=== PATIENT | female | born 1950 | race Caucasian/White ===

== ENCOUNTER → 2019-05-11 | Outpatient (CLI) | payer MEDICARE, OTHER, SELFPAY ==
[2016-03-04 13:39] VITALS: BMI 33.7
--- NOTE | 2019-05-11 09:50 | RAD_ITS ---
STUDY: X-RAY - ESOPHAGUS (BARIUM SWALLOW) WITH FLUOROSCOPY REASON FOR EXAM: Female, 69 years old. History of prior removal of a lower esophageal polyp. TECHNIQUE: 15 view(s) of the esophagus were obtained following swallowing of barium. FLUOROSCOPY TIME (if supplied): (0:36) minutes/seconds COMPARISON: None. FINDINGS: There is no demonstrated esophageal foreign body. There is no demonstrated stricture or mucosal abnormality. Normal gastroesophageal junction, without a demonstrated hiatal hernia. The patient ingested a 12 mm tablet of barium. The tablet is trapped at the gastroesophageal junction. There is atherosclerotic calcification of the aortic arch with tortuosity of the descending aorta. Normal visualized pulmonary parenchyma. Normal visualized osseous structures of the thorax. RAD/Esophagus Only IMPRESSION: The 12 mm tablet of barium is trapped at the gastroesophageal junction. Electronically Signed: Alejo Chaves, at 9:18 EDT , Service support ,
== END | disposition home or self-care (01) ==
LOC: RAD 09:13
PROVIDERS: Family Provider Family Medicine; PCP Family Medicine; Referring Provider Physician Assistant; Visit Provider Physician Assistant
DX: R13.10 Dysphagia, unspecified (principal)
CPT/HCPCS: 74220

== ENCOUNTER 2019-05-22 11:48 | Day surgery (SDC) | payer MEDICARE, OTHER, SELFPAY ==
--- NOTE | 2019-05-19 10:51 | PCM.HP.BLA ---
History and Physical Date of Admission: 05/22/19 HISTORY AND PHYSICAL ? Nora Camarillo 1950 ? REFERRING PHYSICIAN: ??Rajendra Quinn ([facility] Forming Machine Upkeep Mechanic Helper),* ? CHIEF COMPLAINT: ??Consult (Consult Constipation/ GERD/ epigastric pain) ? HPI: The patient is a 69 year old female referred for endoscopy. ?Nora notes generalized abdominal discomfort and bloating, as well as abdominal cramping and chronic constipation.?She had a previous EGD by Dr. Guillermo in 2016, as well as pH probe studies and manometry. ?She was also found to have a gastric diverticulum. ?The patient was evaluated by Dr. Rojas in 2017. ?She underwent repeat EGD and then a gastric diverticulectomy and hiatal hernia repair with Lupillo fundoplication. ?Notes intermittent abdominal discomfort since that time. ? Patient notes some nausea recently. ?She has been trying prune juice and miralax to help with constipation, with minimal relief. ?She denies blood in stool or black stools. ?She was recently started back on PPI by her PCP. ? Patient's past medical history is significant for hyperlipidemia, asthma, peptic ulcer disease, GERD, delayed gastric emptying, low back pain and knee pain, carotid artery stenosis. ?Patient follows with Dr. Bird for her chronic medical conditions. ? ? PAST?MEDICAL?HISTORY PAST MEDICAL HISTORY Diagnosis Date ? Abnormal computed tomography angiography (CTA) 01/03/2019 ? right upper ICA with abnormality, consult to vascular 12/2018 ? Acute meniscal tear of left knee 04/13/2019 ? Allergic rhinitis, cause unspecified ? ? Bilateral carotid artery stenosis 01/03/2019 ? US: 12/2018 20-40% tatyana ? Chronic bilateral low back pain 01/01/2016 ? Seen [facility] ? Chronic pain of left knee 07/22/2016 ? Delayed gastric emptying 09/18/2011 ? Diaphragmatic hernia without mention of obstruction or gangrene ? ? Diverticulosis of large intestine ? ? Elevated fasting blood sugar 12/10/2015 ? Essential tremor 01/19/2018 ? Gastric diverticulum 03/13/2016 ? Gastroesophageal reflux disease with esophagitis 03/13/2016 ? S/P Lupillo 02/[address] rojas ? Hiatal hernia 07/22/2016 ? Left hip pain 09/14/2017 ? Seeing [place] [facility] Dr. Xander Martinez ? Left lateral abdominal pain 02/15/2019 ? Mid quadrant, chronic and paroxysmal. ? Low back pain 09/14/2017 ? Mild persistent asthma without complication 07/22/2016 ? Seeing Dr. Linn ? Mixed hyperlipidemia 11/20/2009 ? Primary insomnia 07/22/2016 ? PUD (peptic ulcer disease) 03/13/2016 ? Senile osteoporosis 01/05/2006 ? 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 Dobson) ? Simple cyst of breast 11/2009 ? Left retroareolar ? Unspecified constipation ? ? ? PAST?SURGICAL?HISTORY PAST SURGICAL HISTORY Procedure Laterality Date ? APPENDECTOMY ? ? ? BREAST BIOPSY Left 2002 ? CARDIAC CATH ? 2003 ? COLONOS W/REM POLYP SNARE ? 01/28/2016 ? repeat 10 yrs ? EGD W/O BRSH SPECIMEN W/BX ? 01/24/07 ? EGD W/O BRSH SPECIMEN W/BX ? 01/28/16 ? EGD W/O OR W/BRUSH/WASH ? 05/22/05 ? EGD ?H-pylori negative ? EGD W/O OR W/BRUSH/WASH ? 03/02/2016 ? G-ESOPH REFLX TST W/ELECTROD ? 03/02/2016 ? 48 hour ph probe ? HERNIA REPAIR HX ? 1971 & 1973 ? herniorrhaphy, umbilical, right inguinal . ? MANOMETRY ESOPHAGEAL ? 04/29/2016 ? PAST SURGICAL HISTORY OF ? 01/13 ? heart catheterization ? PAST SURGICAL HISTORY OF ? 11/03/04 ? left breast bx ? PAST SURGICAL HISTORY OF ? ? ? D &?C, multiple ? PAST SURGICAL HISTORY OF Right 1990 ? carpal tunnel release ? PAST SURGICAL HISTORY OF ? ? ? Right arm surgery, ulnar nerve decompression X7 ? PAST SURGICAL HISTORY OF ? 05/20 ? ganglion cyst removed right wrist ? PAST SURGICAL HISTORY OF ? 03/02/16 ? pH probe ? PAST SURGICAL HISTORY OF Left 2002 ? carpal tunnel release ? PAST SURGICAL HISTORY OF ? 02/11/2017 ? laproscopic Lupillo Fundoplication.(Dr. Rojas [facility]) ? RECONSTRUCT VAGINAL WALL WITH MESH ? 04/2015 ? REMOVE CATARACT, INSERT LENS,EX ? 02/28/2009 ? Both Eyes ? REPR VAGINAL PROLAPSE,SACROSP LIG ? 02/2013 ? repair of rectal and vaginal prolapse ? RETROARC BLADDER SLING [id number] ? 09/03/15 ? retroarc tension free vaginal sling ? TONSILLECTOMY HX ? 1956 ? TOTAL ABDOM HYSTERECTOMY ? 1988 ? ? CURRENT?MEDICATIONS ? Current Outpatient Medications: omeprazole (PRILOSEC) 20 mg capsule Take 1 capsule by mouth once daily. zolpidem (AMBIEN) 5 mg tablet Take 1 tablet by mouth at bedtime as needed for up to 197 days. cyanocobalamin, vitamin B-12, (VITAMIN B12 ORAL) Take 1,000 mg by mouth. Cholecalciferol, Vitamin D3, 5,000 unit cap Take 1 capsule by mouth once daily. clotrimazole-betamethasone (LOTRISONE) cream Apply 1 application to affected area twice daily. Till clear for up to 2 weeks as needed. Estriol compounded - [facility] Estriol 1mg/ml. ?Use 1 gm vaginally at bedtime x 2 weeks then use twice a week. albuterol HFA (VENTOLIN HFA) 90 mcg/actuation inhaler Inhale 2 Puffs as instructed every 4 hours as needed. POLYETHYLENE GLYCOL 3350 (MIRALAX ORAL) Take 1 Packet by mouth as needed. peg 3350-Electrolytes (GOLYTELY) 236-22.74-6.74 -5.86 gram suspension Take 4,000 mL by mouth one time only for 1 dose. meloxicam (MOBIC) 15 mg tablet Take 1 tablet by mouth once daily. ? No current facility-administered medications for this visit.? ? ALLERGIES:?Morphine; Advair Diskus [Fluticasone Propion-Salmeterol]; Bentyl [Dicyclomine Hcl]; Celebrex [Celecoxib]; Dicyclomine; Estrace [Estradiol]; Evista [Raloxifene Hcl]; Macrobid [Nitrofurantoin Monohyd/M-Cryst]; Medrol [Methylprednisolone]; Oxycontin [Oxycodone Hcl]; Penicillins; Prednisone; Prozac [Fluoxetine Hcl]; Symax-Sl [Hyoscyamine Sulfate] ? PERSONAL HISTORY:? 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 ??Social Needs ?Financial resource strain: Not on file ?Food insecurity: ?Worry: Not on file ?Inability: Not on file ?Transportation needs: ?Medical: Not on file ?Non-medical: Not on file ??Tobacco Use ?Smoking status: Never Smoker ?Smokeless tobacco: Never Used ?Tobacco comment: Father smoked occasionally in childhood home. Spouse smoked in home until 4 years ago. ??Substance and Sexual Activity ?Alcohol use: No ?Drug use: No ?Sexual activity: Yes ?Partners: Male ? control/protection: Surgical ?Comment: Pt has had a Hysterectomy ??Lifestyle ?Physical activity: ?Days per week: Not on file ?Minutes per session: Not on file ?Stress: Not on file ??Relationships ?Social connections: ?Talks on phone: Not on file ?Gets together: Not on file ?Attends catholic service: Not on file ?Active member of club or organization: Not on file ?Attends meetings of clubs or organizations: Not on file ?Relationship status: Not on file ?Intimate partner violence: ?Fear of current or ex partner: Not on file ?Emotionally abused: Not on file ?Physically abused: Not on file ?Forced sexual activity: Not on file ??Other Topics ?Concerns: ? Service: Not Asked ?Blood Transfusions: Not Asked ?Caffeine Concern: Not Asked ?Occupational Exposure: Not Asked ?Hobby Hazards: Not Asked ?Sleep Concern: Not Asked ?Stress Concern: Not Asked ?Weight Concern: No ?Special Diet: Not Asked ?Back Care: Not Asked ?Exercise: Not Asked ?Bike Helmet: Not Asked ?Seat Belt: Not Asked ?Self-Exams: Not Asked ??Social History Narrative ?3 daughters grown ? FAMILY HISTORY:? FAMILY?HISTORY FAMILY HISTORY Problem Relation Age of Onset ? Heart Mother ? ? Diabetes Mother ? ? Cancer Father ?base of skull ? other (parkinsons) Father ? ? Breast Cancer Sister ? ? other (hepatitis) Sister ? @62yrs of age/Liver Problems ? Thyroid Daughter ? ? Thyroid Daughter ? ? Cervical Cancer Daughter ? ? REVIEW OF SYMPTOMS: ??The review of systems data was entered by the nurse and reviewed by me ? Nursing Notes: Kb Snyder ?05/05/2019 ?4:29 PM ?Signed REVIEW OF SYSTEMS: ?General:???The patient notes fatigue, denies weight loss, NOTES weight gain, denies feeling hot, and denies feelings of cold. ?Eyes: ?The patient denies glaucoma, denies eye injury/surgery, does not wear glasses or contacts. ?Ear/Nose/Throat: ?The patient denies allergies, denies hayfever, denies ear infections, and denies bloody noses. ?Cardiovascular: ?The patient denies chest pain, denies heart disease, denies high blood pressure,denies cardiac stent, denies prior heart attack, denies irregular heart beat, denies high cholesterol, ?denies poor circulation, denies heart failure, other cardiac issues, denies claudication, denies cold feet, denies peripheral arterial stent. ?Respiratory: ?The patient denies tuberculosis, denies pneumonia, denies frequent cough, denies pulmonary embolism, denies shortness of breath, and denies coughing up blood. ?Gastrointestinal: ?The patient denies difficulty swallowing, denies acid reflux, denies ulcers, denies vomiting, denies jaundice/hepatitis, denies gallbladder problems, denies black or tarry stools, denies hemorrhoids, denies bleeding from rectum, denies diverticulitis, NOTES constipation, denies diarrhea, denies loss of stool control, and denies hernias. ?Kidney/Bladder: ?The patient denies kidney stones, denies urine infections, and denies bloody urine. ?Skin: ?The patient denies a history of skin cancer, denies bleeding/changing moles, and denies a history of skin rash. ?Neurologic: ?The patient denies a history of epilepsy/convulsions, denies headaches, denies head/spinal injuries, and denies stroke/TIA. ?Psychiatric: ?The patient denies psychiatric medications, denies depression, and denies voices, denies substance abuse. ?Endocrine: ?The patient denies thyroid disorders, denies diabetes, and denies hormonal problems. ?Hematologic: ?The patient denies a history of bruising, denies bleeding, and denies anemia, denies blood clots. ?Infections: ?The patient denies a history of measles and mumps, denies rheumatic fever, and denies sexually transmitted diseases. ?Musculoskeletal: ?The patient denies back pain/injury, denies back problems, denies sciatica, NOTES knee/foot trouble, denies arthritis, or denies gout. ? ? When was patient's last Mammogram screening? N/A ? ?Last Colonoscopy: ?2016 ? Kb Snyder? I have confirmed and edited as necessary, the PFSH and ROS obtained by others. ? ? PHYSICAL EXAMINATION: ? General: ?The patient is 69 year old female, well nourished, well hydrated in no acute distress. ?The patient is oriented to time, place, and person. ? VITALS:?Pulse 92, temperature 36.3 ?C (97.3 ?F), weight 85.2 kg (187 lb 12.8 oz), SpO2 97 %.?Body mass index is 31.67 kg/m?.? ? HEENT: ?Normal cephalic, ataumatic, pupils are equally round, sclera are anicteric, mucous membranes are moist, oropharynx is clear. ?Neck has no masses, asymmetry or lymphadenopathy. ? ? Respiratory: ?Clear to auscultation and percussion. ?Normal respiratory excursion and pattern. ? Cardiac: ?Examination is regular rate and rhythm. ?Normal S1/S2 ? Abdominal exam: ?Soft, nontender, ?with no palpable masses. ?No hepatosplenomegaly. ?No palpable hernias. ? Extremities: ?no clubbing, cyanosis or edema. ?No adenopathy. ? LABORATORY VALUES: As Noted ? RADIOLOGIC STUDIES: ?As Noted ? Assessment ? IMPRESSION:?chronic constipation, abdominal pain, history of Lupillo fundoplication ? PLAN:??Dr. Guillermo also independently evaluated the patient and participated in development of the following plan.???Will plan for upper and lower?endoscopy. ??We discussed the risks and benefits of the planned endoscopy. ?I have informed the patient that complications can occur including failure to complete the endoscopy and perforation. ?The patient had the opportunity to ask questions concerning the planned endoscopy. ?My staff has also explained the procedure to the patient in understandable terms and has given the patient printed material concerning the procedure. ?The patient freely consents to surgery. ? I plan to use?Golytely?bowel preparation ? Diagnoses:?(K59.09) Other constipation ?(primary encounter diagnosis) (Z98.890) S/P Lupillo fundoplication (without gastrostomy tube) procedure (K27.9) PUD (peptic ulcer disease) (K21.0) Gastroesophageal reflux disease with esophagitis ? ? Dorita Esquivel PA-C
[2019-05-22 11:20] VITALS: BP 115/61; BP 142/78; PULSE 67; RESP 16; O2SAT 96
--- NOTE | 2019-05-22 12:00 | IMM_PTH ---
PATIENT: JASIEL BARRERA LOC: EN U#:[id number] AGE/SX: 69/F ROOM: RE05/22/[address]: Dr. Pascual Guillermo MD : 1950 BED: DIS: 05/22/2019 SPEC #: [id number] RECD: 05/23/19 12:32 STATUS: TOSHIA REQ #: [id number] MARA: 05/22/19 12:[address]: Pascual Guillermo DEPT: IMMUNOHISTOCHEMISTRY RECD BY: Colleen Baker ENTERED: 05/23/19 12:33 SP TYPE: IMMUNO OTHR DR: Dr. Scot Bird MD Tissues: Stomach, NOS Procedures: H Pylori (initial) PHYSICIAN & INSTITUTION [place] [id number] SPECIMEN INFORMATION: Tissue Source: Antrum biopsy Clinical Info: Abdomen pain, Lupillo fundoplication, constipation Specimen Number: [id number] CPT code: 22037 METHODOLOGY: Deparaffinized sections of prefer/formalin-fixed tissue or PAP/DQ stained slides are incubated with monoclonal/polyclonal antibodies/oligonucleotide probes. Localization is made via biotin free immunoperoxidase method. Appropriate controls are performed and reacted as expected. Results on target cell population are indicated in the following table: RESULTS: ANTIBODY / CLONE RESULT H Pylori (polyclonal) negative These tests were developed and their performance characteristics determined by [facility]. They may not have been cleared or approved by the U.S. Food and Drug Administration. The FDA has determined that such clearance or approval is not necessary. INTERPRETATION: Antrum biopsy: Negative for Helicobacter pylori organisms. AM:wu 05/24/19
--- NOTE | 2019-05-22 12:00 | EGD_PTH ---
PATIENT: JASIEL BARRERA LOC: EN U#:[id number] AGE/SX: 69/F ROOM: RE05/22/[address]: Dr. Pascual Guillermo MD : 1950 BED: DIS: 05/22/2019 SPEC #: [id number] RECD: 05/22/19 14:42 STATUS: TOSHIA ANH #: [id number] MARA: 05/22/19 12:[address]: Pascual Guillermo DEPT: SURGICAL PATHOLOGY RECD BY: Jerrod Marti ENTERED: 05/23/19 09:29 SP TYPE: EGD BIOPSY OT DR: Dr. Scot Bird MD Tissues: Gastric mucous membrane Procedures: Surgery Specimen Level IV HEADER OPERATION: Colonoscopy, EGD ([facility]) PRE-OP DIAGNOSIS: Abdominal pain, history Lupillo fundoplication, constipation TISSUE SUBMITTED: Antrum biopsy for H. pylori and path MICROSCOPIC DIAGNOSIS Gastric antrum, biopsy: Mild chronic gastritis. AM:wu 05/24/19 COMMENT The results of immunohistochemistry for Helicobacter pylori will be reported separately ([id number]). MICROSCOPIC DESCRIPTION Slides are reviewed. GROSS DESCRIPTION Received in fixative is one container labeled with the patient's name and designated antrum biopsy. The specimen consists of one irregular fragment of light pyle soft tissue that measures 0.3 x 0.2 x 0.1 cm. The specimen is totally submitted in one cassette. / HARMAN:wu 05/23/19 TC:3 CPT: 57998
[2019-05-22 12:09] VITALS: BP 142/78; PULSE 68; RESP 15; TEMP 36.3; O2SAT 100; BMI 32.0
[2019-05-22] MEDS: Lactated Ringers 1,000 ML 75 ML IV (12:18)
[2019-05-22 14:17] VITALS: BP 110/64; BP 142/78; PULSE 65; RESP 16; TEMP 36.1; O2SAT 96
[2019-05-22 14:20] VITALS: BP 115/61; BP 142/78; PULSE 66; RESP 16; O2SAT 95
--- NOTE | 2019-05-22 14:21 | OP.EGD_ITS ---
Patient Name: Nora Camarillo Procedure Date: 05/22/2019 1:46 PM Date of : 1950 Age: 69 Procedure: Upper GI endoscopy Indications: Generalized abdominal pain Providers: Pascual Guillermo MD Referring MD: Scot Bird MD Medicines: Monitored Anesthesia Care Patient Profile: This is a 69 year old female. Refer to note in patient chart for documentation of history and physical. Complications: No immediate complications. Estimated blood loss: None. Procedure: Pre-Anesthesia Assessment: - Prior to the procedure, a History and Physical was performed, and patient medications and allergies were reviewed. The patient is competent. The risks and benefits of the procedure and the sedation options and risks were discussed with the patient. All questions were answered and informed consent was obtained. Patient identification and proposed procedure were verified by the physician, the nurse and the histology specialist in the procedure room. Mental Status Examination: alert and oriented. Airway Examination: normal oropharyngeal airway and neck mobility. Respiratory Examination: clear to auscultation. CV Examination: normal. ASA Grade Assessment: III - A patient with severe systemic disease. After reviewing the risks and benefits, the patient was deemed in satisfactory condition to undergo the procedure. The anesthesia plan was to use monitored anesthesia care (MAC). Immediately prior to administration of medications, the patient was re-assessed for adequacy to receive sedatives. The heart rate, respiratory rate, oxygen saturations, blood pressure, adequacy of pulmonary ventilation, and response to care were monitored throughout the procedure. The physical status of the patient was re-assessed after the procedure. After obtaining informed consent, the endoscope was passed under direct vision. Throughout the procedure, the patient's blood pressure, pulse, and oxygen saturations were monitored continuously. The gastroscope was introduced through the mouth, and advanced to the jejunum. The upper GI endoscopy was accomplished without difficulty. The patient tolerated the procedure well. Scope In: 1:53:50 PM Scope Out: 1:57:56 PM Total Procedure Duration Time 0 hours 4 minutes 6 seconds Findings: The examined jejunum was normal. The examined duodenum was normal. One non-bleeding cratered gastric ulcer with no stigmata of bleeding was found in the gastric antrum. The lesion was 5 mm in largest dimension. Localized moderate inflammation characterized by erosions and erythema was found in the gastric antrum. Biopsies were taken with a cold forceps for Helicobacter pylori testing using PyloriTek test. Biopsies were taken with a cold forceps for histology. Evidence of a Lupillo fundoplication was found in the gastric fundus. The wrap appeared intact. This was traversed. The examined esophagus was normal. Impression: - Normal examined jejunum. - Normal examined duodenum. - Non-bleeding gastric ulcer with no stigmata of bleeding. - Gastritis. Biopsied. - A Lupillo fundoplication was found. The wrap appears intact. - Normal esophagus. Recommendation: - Discharge patient to home. - Resume previous diet. - Continue present medications. - Return to physician lead dental assistant in 1 week. Procedure Code(s): --- Professional --- 50422, Esophagogastroduodenoscopy, flexible, transoral; with biopsy, single or multiple CPT copyright 2017 [employer]. All rights reserved. The codes documented in this report are preliminary and upon side hemmer review may be revised to meet current compliance requirements. Pascual Guillermo MD 05/22/2019 2:21:36 PM This report has been signed electronically. Number of Addenda: 0 Note Initiated On: 05/22/2019 1:46 PM
--- NOTE | 2019-05-22 14:24 | OP.COLON_ITS ---
Patient Name: Nora Camarillo Procedure Date: 05/22/2019 1:58 PM Date of : 1950 Age: 69 Procedure: Colonoscopy Indications: Chronic idiopathic constipation Providers: Pascual Guillermo MD Referring MD: Scot Bird MD Medicines: Monitored Anesthesia Care Patient Profile: This is a 69 year old female. Refer to note in patient chart for documentation of history and physical. Refer to note in patient chart for documentation of history and physical. Last Colonoscopy: Complications: No immediate complications. Procedure: Pre-Anesthesia Assessment: - Prior to the procedure, a History and Physical was performed, and patient medications and allergies were reviewed. The patient is competent. The risks and benefits of the procedure and the sedation options and risks were discussed with the patient. All questions were answered and informed consent was obtained. Patient identification and proposed procedure were verified by the physician, the nurse and the mechanical technician in the procedure room. Mental Status Examination: alert and oriented. Airway Examination: normal oropharyngeal airway and neck mobility. Respiratory Examination: clear to auscultation. CV Examination: normal. ASA Grade Assessment: III - A patient with severe systemic disease. After reviewing the risks and benefits, the patient was deemed in satisfactory condition to undergo the procedure. The anesthesia plan was to use monitored anesthesia care (MAC). Immediately prior to administration of medications, the patient was re-assessed for adequacy to receive sedatives. The heart rate, respiratory rate, oxygen saturations, blood pressure, adequacy of pulmonary ventilation, and response to care were monitored throughout the procedure. The physical status of the patient was re-assessed after the procedure. After I obtained informed consent, the scope was passed under direct vision. Throughout the procedure, the patient's blood pressure, pulse, and oxygen saturations were monitored continuously. The colonoscope was introduced through the anus and advanced to the cecum, identified by the appendiceal orifice, ileocecal valve and palpation. The colonoscopy was performed without difficulty. The patient tolerated the procedure well. The quality of the bowel preparation was good. Scope In: 2:00:11 PM Scope Withdrawal Time 0 hours 6 minutes 18 seconds Scope Out: 2:13:36 PM Total Procedure Duration Time 0 hours 13 minutes 25 seconds Findings: The perianal and digital rectal examinations were normal. Many small and large-mouthed diverticula were found in the sigmoid colon. The exam was otherwise without abnormality. The retroflexed view of the distal rectum and anal verge was normal and showed no anal or rectal abnormalities. Impression: - Diverticulosis in the sigmoid colon. - The examination was otherwise normal. - The distal rectum and anal verge are normal on retroflexion view. - No specimens collected. Recommendation: - Discharge patient to home. - Resume previous diet. - Continue present medications. - Repeat colonoscopy in 10 years for screening purposes. Procedure Code(s): --- Professional --- 75305, Colonoscopy, flexible; diagnostic, including collection of specimen(s) by brushing or washing, when performed (separate procedure) CPT copyright 2017 [employer]. All rights reserved. The codes documented in this report are preliminary and upon radiotelegraph operator servicer review may be revised to meet current compliance requirements. Pascual Guillermo MD 05/22/2019 2:23:30 PM This report has been signed electronically. Number of Addenda: 0 Note Initiated On: 05/22/2019 1:58 PM
[2019-05-22 14:25] VITALS: BP 113/61; BP 142/78; PULSE 67; RESP 16; O2SAT 96
[2019-05-22 14:34] VITALS: BP 113/61; BP 142/78; PULSE 63; RESP 16; TEMP 36.3; O2SAT 96
== END 2019-05-22 14:54 | disposition home or self-care (01) ==
LOC: EN 11:49 → AC 11:51
PROVIDERS: Family Provider Family Medicine; PCP Family Medicine; Referring Provider Family Medicine; Visit Provider Surgery
PROC: 0DJD8ZZ Inspection of Lower Intestinal Tract, Via Natural or Artificial Opening Endoscopic (ICD-10-PCS; CPT 45378; principal; 2019-05-22 11:55)
DX: Z79.899 Other long term (current) drug therapy (principal); K29.50 Unspecified chronic gastritis without bleeding; K57.30 Diverticulosis of large intestine without perforation or abscess without bleeding; K59.09 Other constipation; K21.0 Gastro-esophageal reflux disease with esophagitis; K25.9 Gastric ulcer, unspecified as acute or chronic, without hemorrhage or perforation; M54.5 Low back pain; K30 Functional dyspepsia; I65.23 Occlusion and stenosis of bilateral carotid arteries; J45.30 Mild persistent asthma, uncomplicated; E78.2 Mixed hyperlipidemia; Z79.51 Long term (current) use of inhaled steroids
CPT/HCPCS: 43239; 45378; 88305; 88342; J7120; J2405

== ENCOUNTER 2020-10-16 03:46 | Observation (INO) | payer MEDICARE, OTHER, SELFPAY ==
[2020-10-16] VITALS (19 sets, daily range): BP systolic 112–147; BP diastolic 54–104; PULSE 63–97; RESP 14–25; TEMP 36.3–37.1; O2SAT 94–100; BMI 31.7; BMI 31.2; BMI 31.3
--- NOTE | 2020-10-16 | GASB_PTH ---
[id number] LOC: [facility] U#:[id number] AGE/SX: 70/F ROOM: [facility] RE10/16/[address]: Dr. Sofia Hoff MD : 1950 BED: 1 DIS: 10/17/2020 SPEC #: [id number] RECD: 10/16/20 14:16 STATUS: TOSHIA KAMARA #: [id number] MARA: 10/16/20 00:[address]: Tom Galeano DEPT: SURGICAL PATHOLOGY RECD BY: Huey Santillan ENTERED: 10/17/20 07:46 SP TYPE: Gastric Bx OTHR DR: MD Dr. Rafael Aldana MD Dr. Jeffrey Burkey, MD Dr. Nana Yaa Koram, MD Tissues: Gastric mucous membrane Procedures: Surgery Specimen Level IV Comments: @ Ordering doctor for SUIV edited from to @ by CATHLEEN at 10/17/20 145 @ Submitting doctor edited from to @ by RGOOD at 10/17/201451 HEADER OPERATION: EGD ([facility] [place]) PRE-OP DIAGNOSIS: Upper GI bleed TISSUE SUBMITTED: Antral biopsy, H. pylori and path MICROSCOPIC DIAGNOSIS Antral biopsy: Mild to moderate gastritis. See microscopic description and comment. HARMAN:wu 10/18/2020 COMMENT The results of immunohistochemistry for Helicobacter pylori will be reported separately ([id number]). MICROSCOPIC DESCRIPTION Slides are reviewed. The specimen shows fragments of gastric mucosa with chronic inflammatory cell infiltrates in the lamina propria consisting of lymphocytes and plasma cells, consistent with mild to moderate chronic gastritis. GROSS DESCRIPTION Received in fixative is one container labeled with the patient's name and designated antral biopsy. The specimen consists of two irregular fragments of light pyle soft tissue that in aggregate measure 0.4 x 0.4 x 0.1 cm. The specimen is totally submitted in one cassette. / HARMAN:wu 10/17/20 TC:3 CPT: 29279
--- NOTE | 2020-10-16 04:07 | CT_ITS ---
STUDY: CT ABDOMEN AND PELVIS WITH CONTRAST REASON FOR EXAM: Female, 70 years old. Abdominal pain RADIATION DOSAGE (If Supplied By Facility): CTDIvol = ( 18.06 ) mGy, DLP = ( 949.08 ) mGycm TECHNIQUE: Transaxial images were obtained from the dome of the diaphragm to the symphysis pubis without oral contrast. IV 100mL Isovue-370 was administered. Sagittal and coronal images were reconstructed. Individualized dose optimization techniques were used for this CT. COMPARISON: None. FINDINGS: The visualized lung bases are unremarkable. The visualized portions of the heart are within normal limits. There are several low-attenuation structures within the liver, likely cyst in largest seen within the right liver lobe measuring approximately 1.6 x 1.3 cm . Normal gallbladder and extrahepatic biliary system. Normal spleen. Normal pancreas. Normal bilateral adrenal glands. Right mid lower renal pole simple cyst measuring approximately 1.8 x 1.7 cm. Otherwise normal right kidney. Normal left kidney. Postoperative changes at the level of the EG junction for hernia repair. Otherwise stomach unremarkable. Normal small intestine. Normal colon. The appendix is visualized and appears normal. There is diffuse atherosclerotic calcification of the abdominal aorta, without a demonstrated aneurysm. There is a stent through the left inferior vena cava. Normal inferior vena cava. Normal retroperitoneum. Normal urinary bladder. The uterus is not visualized suggestive of previous hysterectomy. Small left-sided fat-containing inguinal hernia. There are diffuse degenerative changes of the visualized lumbar spine. CT/Abdomen/Pelvis W IV Cont ONLY IMPRESSION: Right-sided simple renal cyst and likely liver cyst as described. If indicated, follow-up with a right upper quadrant ultrasound in nonacute setting recommended to document simple cyst. No focal inflammatory process or signs of bowel obstruction. Electronically Signed: Cristina Schaefer MD at 4:58 EDT , Service support ,
--- NOTE | 2020-10-16 04:08 | ED.DCSUM_ITS ---
History of Present Illness Chief Complaint: GI Bleed Narrative: This patient is a 70-year-old female who presents with abdominal pain melenic stools and coffee-ground emesis. History is limited as the patient is a poor informant. She does complain of some epigastric abdominal pain for the last week and a half. However it sounds like she has some degree of this pain chronically and recurrently. She reports a history of a stomach ulcer. Review of prior records makes note of gastritis. She also reports a history of stomach surgery. She is not sure exactly what was done but based on her description I suspect this was a Lupillo fundoplication. She states that she woke up tonight and was not feeling well. She was on the commode having a bowel movement. She became lightheaded. The next thing she remembers her was standing over her and stated she had gone unresponsive. She then had dark-color ed emesis and when she wiped her mouth there was some blood. She also reports dark stools since yesterday. No fevers. Patient is not anticoagulated. Past Medical History - Allergies and Home Meds Allergies/Adverse Reactions: Allergies estradiol [From Estrace] Allergy (Verified 05/22/19 12:09) Itching oxycodone Allergy (Verified 05/22/19 12:09) Itching Penicillins Allergy (Verified 05/22/19 12:09) Itching prednisone Allergy (Verified 05/22/19 12:09) Rash raloxifene [From Evista] Allergy (Verified 05/22/19 12:09) Itching celecoxib [From Celebrex] Adverse Reaction (Verified 05/22/19 12:09) Nausea dicyclomine Adverse Reaction (Verified 05/22/19 12:09) Other DRY MOUTH BLURRED VISON LOSS OF TASTE fluoxetine [From Prozac] Adverse Reaction (Verified 05/22/19 12:09) Nausea fluticasone [From Advair Diskus] Adverse Reaction (Verified 05/22/19 12:09) Other HURTS THROAT hyoscyamine Adverse Reaction (Verified 05/22/19 12:09) Unknown meloxicam [From Mobic] Adverse Reaction (Verified 05/22/19 12:09) Nausea methylprednisolone [From Medrol] Adverse Reaction (Verified 05/22/19 12:09) Other DRY MOUTH SORE THROAT morphine Adverse Reaction (Verified 10/16/20 03:50) Itching salmeterol [From Advair Diskus] Adverse Reaction (Verified 05/22/19 12:09) Other HURTS THROAT Primary Care Physician: Scot Bird MD [Primary Care Provider] - Past Medical History: - - Hyperlipidemia Smoking Status: Never smoker Review of Systems All systems negative except as indicated General: Reports: Malaise. Denies: Fever ENT: Denies: Bilateral ear pain Cardiovascular: Denies: Chest pain Respiratory: Denies: Dyspnea Gastrointestinal: Reports: Abdominal pain, Nausea, Vomiting, Melena, - - Hematemesis Musculoskeletal: Denies: Myalgias, Arthralgias Skin: Denies: Rash Neurological: Denies: Headache Allergy: Denies: Uticaria Physical Exam Vital Signs/Narrative: Vital Signs Temp Pulse Resp BP Pulse Ox 10/16/20 03:47 97.3 F L 71 25 H 128/104 H 96 Inital Vital Signs reviewed: Yes General: Well nourished Head: Normocephalic Eyes: EOMI ENT: Moist mucous membranes Neck: Supple Cardiovascular: Regular rate, Regular rhythm Respiratory: No distress, CTA bilaterally Abdomen: Soft, Nontender Skin: Normal color Neurological: Alert Psychological: Normal affect Diagnostic/Tx/Re-eval Impressions Abdomen/Pelvis CT 10/16/20 04:07 IMPRESSION: Right-sided simple renal cyst and likely liver cyst as described. If indicated, follow-up with a right upper quadrant ultrasound in nonacute setting recommended to document simple cyst. No focal inflammatory process or signs of bowel obstruction. Electronically Signed: Cristina Schaefer MD at 4:58 EDT , Service support , 10/16/20 04:07 Abdomen/Pelvis W IV Cont ONLY [CT] Stat Laboratory Results 10/16/20 10/16/20 10/16/20 03:20 03:20 03:20 WBC 7.8 RBC 4.00 L Hgb 12.6 Hct 38.3 MCV 95.8 MCH 31.5 MCHC 32.9 RDW Std Deviation 48.3 H RDW Coeff of Enrike 13.5 Plt Count 334 MPV 11.0 Immature Gran % (Auto) 0.400 Neut % (Auto) 47.4 Lymph % (Auto) 31.7 [place] % (Auto) 9.6 Eos % (Auto) 10.3 H Baso % (Auto) 0.6 Absolute Neuts (auto) 3.7 Absolute Lymphs (auto) 2.48 Nucleated RBC % 0 PT 13.3 INR 1.1 Sodium 139 Potassium 4.0 Chloride 109 H Carbon Dioxide 25.0 Anion Gap 5 BUN 28 H Creatinine 0.63 Estim Creat Clear Calc 47.10 Est GFR (MDRD) Af Amer 120 Est GFR (MDRD) Non-Af 100 BUN/Creatinine Ratio 44.6 H Glucose 155 H Calcium 8.5 Total Bilirubin 0.60 AST 20 ALT 31 Alkaline Phosphatase 98 Total Protein 7.0 Albumin 3.4 Globulin 3.6 Albumin/Globulin Ratio 0.9 Lipase 50 L Blood Type Antibody Screen 10/16/20 03:20 WBC RBC Hgb Hct MCV MCH MCHC RDW Std Deviation RDW Coeff of Enrike Plt Count MPV Immature Gran % (Auto) Neut % (Auto) Lymph % (Auto) [place] % (Auto) Eos % (Auto) Baso % (Auto) Absolute Neuts (auto) Absolute Lymphs (auto) Nucleated RBC % PT INR Sodium Potassium Chloride Carbon Dioxide Anion Gap BUN Creatinine Estim Creat Clear Calc Est GFR (MDRD) Af Amer Est GFR (MDRD) Non-Af BUN/Creatinine Ratio Glucose Calcium Total Bilirubin AST ALT Alkaline Phosphatase Total Protein Albumin Globulin Albumin/Globulin Ratio Lipase Blood Type O POSITIVE Antibody Screen NEGATIVE - Medical Decision Making Labs are notable only for elevation of BUN at 28 which is consistent with an upper GI bleed. I did obtain a CT of the abdomen given her epigastric abdominal pain. This shows incidental findings as above no acute findings. Patient was given IV Protonix. Patient was admitted to the hospitalist service. ED Disposition - Plan for ED Patient: Disposition: Acute Care Hospital [facility] Diagnosis: UGIB (upper gastrointestinal bleed) Referrals: Scot Bird MD [Primary Care Provider] -
[2020-10-16 04:14] LABS: Absolute Lymphocyte Count 2.48 X10^3/uL (0.83-4.51); Absolute Neutrophil Count 3.7 X10^3/uL (2.0-7.7); Basophil# 0.05 X10^3/uL; Basophil% 0.6 % (0-1); Eosinophil# 0.81 X10^3/uL; Eosinophils% 10.3 % (0-5); Hematocrit 38.3 % (37-47); Hemoglobin 12.6 g/dL (12.0-15.0); Lymphocyte # 2.48 X10^3/ul (4.0); Lymphocyte % 31.7 % (19-41); Mean Corp Hgb Conc 32.9 g/dL (32-36); Mean Corpuscular Hgb 31.5 pg (27.0-32.0); Mean Corpuscular Volume 95.8 fL (81-99); Monocyte# 0.75 X10^3/uL; Monocyte% 9.6 % (0-10); NRBC Flagged by Analyzer 0 % (0-5); Neutrophil # 3.71 X10^3/uL (2.7-7.7); Neutrophil % 47.4 % (47-70); Platelet Count 334 K/mm3 (150-450); RBC Distribution Width CV 13.5 % (11.6-14.6); RBC Distribution Width SD 48.3 fl (35.1-43.9); White Blood Count 7.8 K/mm3 (4.4-11.0)
[2020-10-16 04:19] LABS: International Normalized Ratio 1.1; Prothrombin Time (Protime)PT. 13.3 SECONDS (11.7-14.9)
[2020-10-16 04:27] LABS: ALB/GLOB Ratio 0.9 RATIO (0.9-2.4); AST(SGOT) 20 U/L (15-37); Alanine Aminotransfer ALT/SGPT 31 U/L (13-56); Albumin, Serum 3.4 g/dL (3.2-5.0); Alkaline Phosphatase 98 U/L (45-117); Anion Gap 5 (5-15); BUN 28 mg/dL (7-18); BUN/Creat Ratio 44.6 RATIO (10-20); Calcium,Total 8.5 mg/dL (8.5-10.1); Chloride 109 mmol/L (98-107); Creatinine, Serum 0.63 mg/dL (0.55-1.02); EST Glomerular Filtration Rate 100 mL/min (>60); Est Glom Filt Rate - Afr Amer 120 mL/min (>60); Globulin 3.6 g/dL (2.2-4.2); Glucose 155 mg/dL (74-106); Lipase 50 U/L (73-393); Sodium Level 139 mmol/L (136-145)
--- NOTE | 2020-10-16 04:33 | EKG12_ITS ---
Test Reason : SYNCOPE Blood Pressure : / mmHG Vent. Rate : 068 BPM Atrial Rate : 068 BPM P-R Int : 170 ms QRS Dur : 084 ms QT Int : 406 ms P-R-T Axes : 066 -04 064 degrees QTc Int : 431 ms Poor data quality, interpretation may be adversely affected Normal sinus rhythm Normal ECG Confirmed by PAUL MCINTYRE, AMALIA ([id number]), movie editor MELVI MONACO ([id number]) on 10/18/2020 2:33:54 PM Referred By: Confirmed By:ARELY MILLER MD
--- NOTE | 2020-10-16 05:26 | PCM.HP.STD ---
Problem List (1) Hyperlipidemia Status: Chronic (2) Depression Status: Chronic (3) Asthma Status: Chronic (4) UGIB (upper gastrointestinal bleed) Status: Acute History of Present Illness Date of Admission: 10/16/20 Chief Complaint: Syncope, dark stool, coffee-ground emesis. The patient is a 70 year old F with past medical history as mentioned above presented to the emergency room because of syncopal episode, dark stool and coffee-ground emesis. According to the patient's , mentioned that he had a bang in the bathroom, he went and and he found his passed out on the toilet. He called the squad and when he went back to the bathroom, she started to wake up. Patient mentioned that she did have a couple of times of vomiting, very dark, coffee-ground emesis. Also, she mentioned that she had couple of bowel movement since yesterday with very dark black stools. She reported vague epigastric pain that has been going on for couple of days, intermittent, mild pain, no radiating and no associated symptoms. Patient mentioned she had history of hiatal hernia status post surgery years ago. She denied using [id number] Aleve or Advil. She is on baby aspirin. She denied chest pain or shortness of breath. She denied dizziness or lightheadedness. She had a history of upper EGD back on 2018 that showed nonbleeding gastric ulcer. In the emergency department, her vital signs were stable. Her routine blood work was unremarkable. LFT was unremarkable. EKG revealed normal sinus rhythm, no acute ischemic changes. CT scan abdomen with IV contrast revealed right simple renal cyst, no other acute pathology. She is being admitted for GI bleed and syncopal episode. Past Medical History Past Medical History (Chronic Problems): Chronic Problems Hyperlipidemia (Chronic) Depression (Chronic) Asthma (Chronic) Allergies estradiol [From Estrace] Allergy (Verified 05/22/19 12:09) Itching oxycodone Allergy (Verified 05/22/19 12:09) Itching Penicillins Allergy (Verified 05/22/19 12:09) Itching prednisone Allergy (Verified 05/22/19 12:09) Rash raloxifene [From Evista] Allergy (Verified 05/22/19 12:09) Itching celecoxib [From Celebrex] Adverse Reaction (Verified 05/22/19 12:09) Nausea dicyclomine Adverse Reaction (Verified 05/22/19 12:09) Other DRY MOUTH BLURRED VISON LOSS OF TASTE fluoxetine [From Prozac] Adverse Reaction (Verified 05/22/19 12:09) Nausea fluticasone [From Advair Diskus] Adverse Reaction (Verified 05/22/19 12:09) Other HURTS THROAT hyoscyamine Adverse Reaction (Verified 05/22/19 12:09) Unknown meloxicam [From Mobic] Adverse Reaction (Verified 05/22/19 12:09) Nausea methylprednisolone [From Medrol] Adverse Reaction (Verified 05/22/19 12:09) Other DRY MOUTH SORE THROAT morphine Adverse Reaction (Verified 10/16/20 03:50) Itching salmeterol [From Advair Diskus] Adverse Reaction (Verified 05/22/19 12:09) Other HURTS THROAT Home Medications: Ambulatory Orders Medication Instructions Recorded Albuterol Inhaler [Ventolin Hfa 2 puff INHALATION Q4H PRN PRN 03/02/16 (SP)] Cholecalciferol (VIT D3) [Vitamin 1,000 unit PO DAILY 05/19/19 D] Aspirin [Aspirin, Baby] 81 mg PO DAILY@0800 10/16/20 Atorvastatin Calcium 10 mg PO QHS 10/16/20 Loratadine [Claritin] 10 mg PO DAILY 10/16/20 Sertraline HCl 25 mg PO DAILY 10/16/20 Surgical History: - - Surgery for hiatal hernia. Bladder surgery x3. 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 Denies: Chest Pain, Chest Pressure, Edema, Heaviness, Palpitations Respiratory: Denies: Cough, Hemoptysis, Pleuritic Pain, Shortness of Breath, Sputum production, Wheezing Gastrointestinal: Reports: Abdominal Pain, Hematemesis, Melena. Denies: Constipation, Diarrhea Genitourinary: Denies: Dysuria, Frequency, Hematuria Musculoskeletal: Denies: Arm Pain, Back Pain, Foot Pain Skin: Denies: Dryness, Rash Neurological: Denies: Balance problems, Double vision, Change in Speech, Slurred speech, Confusion, Headaches, Incoordination Psychiatric: Reports: Depression. Denies: Anxiety Endocrine: Denies: Change in Body Habitus, Polydipsia, Polyuria VTE Information - Inpt Only VTE Present on Admission: No VTE Mechan Device Prophylaxis: SCD's VTE Pharm Prophylaxis ordered?: No Patient Problems: Active and Suspected Problems UGIB (upper gastrointestinal bleed) (Acute) - Physical Exam Vitals/I&O's: Vital Signs Temp Pulse Resp BP Pulse Ox 97.3 F L 71 25 H 128/104 H 96 10/16/20 03:47 10/16/20 03:47 10/16/20 03:47 10/16/20 03:47 10/16/20 03:47 Oxygen Delivery Method Room Air Weight: 190 lb 14.725 oz Body Mass Index (BMI) 31.7 General: Alert, Oriented x3, Cooperative, No apparent distress HEENT: Atraumatic, PERRLA, EOMI, Normocephalic Oral: Moist Mucosa, No Gingival or Mucosal Lesions/ Ulcerations Neck: Supple, No JVD, Negative Carotid Bruits, Trachea Midline, Thyroid Normal Size and Texture Lungs: Clear to auscultation, Normal air movement, No rhonchi, No wheeze, No rales Cardiovascular: Regular rate, Regular Rhythm, Normal S1, Normal S2, PMI Normal Abdomen: Bowel Sounds Present, Soft, Non Tender, Non-Distended, No Hepato-splenomegaly Extremities: No clubbing, No cyanosis, No edema Skin: No rashes, No breakdown Lymphatic: No Cervical, Supraclavicular, or Inguinal Adenopathy Neurological: Cranial nerves II-XII grossly intact, Motor Exam 5/5 strength throughout Psych/Mental Status: Normal Affect, Appropriate, Alert and oriented to time, place, person, mood and affect Laboratory Results 10/16/20 03:20: WBC 7.8, RBC 4.00 L, Hgb 12.6, Hct 38.3, MCV 95.8, MCH 31.5, MCHC 32.9, RDW Std Deviation 48.3 H, RDW Coeff of Enrike 13.5, Plt Count 334, MPV 11.0, Immature Gran % (Auto) 0.400, Neut % (Auto) 47.4, Lymph % (Auto) 31.7, [place] % (Auto) 9.6, Eos % (Auto) 10.3 H, Baso % (Auto) 0.6, Absolute Neuts (auto) 3.7, Absolute Lymphs (auto) 2.48, Nucleated RBC % 0 10/16/20 03:20: PT 13.3, INR 1.1 10/16/20 03:20: Sodium 139, Potassium 4.0, Chloride 109 H, Carbon Dioxide 25.0, Anion Gap 5, BUN 28 H, Creatinine 0.63, Estim Creat Clear Calc 47.10, Est GFR (MDRD) Af Amer 120, Est GFR (MDRD) Non-Af 100, BUN/Creatinine Ratio 44.6 H, Glucose 155 H, Calcium 8.5, Total Bilirubin 0.60, AST 20, ALT 31, Alkaline Phosphatase 98, Total Protein 7.0, Albumin 3.4, Globulin 3.6, Albumin/Globulin Ratio 0.9, Lipase 50 L 10/16/20 03:20: Blood Type O POSITIVE, Antibody Screen NEGATIVE Clinical Impression(s) from Imaging Studies Abdomen/Pelvis CT 10/16/20 04:07 IMPRESSION: Right-sided simple renal cyst and likely liver cyst as described. If indicated, follow-up with a right upper quadrant ultrasound in nonacute setting recommended to document simple cyst. No focal inflammatory process or signs of bowel obstruction. Electronically Signed: Cristina Schaefer MD at 4:58 EDT , Service support , Assessment/Plan All Active Problems UGIB (upper gastrointestinal bleed) (Acute) This is a 70 years old female patient presented to the emergency room because of syncopal episode, coffee-ground emesis and melena and she is being admitted for GI bleed for evaluation. #1 coffee-ground emesis/melena/GI bleed: Patient had a history of gastric ulcer on EGD done on May,. She will history of hiatal hernia surgery years ago. Currently, she is stable, not tachycardic, blood pressure stable. Hemoglobin and hematocrit are normal. Platelet count, pro time and INR were normal. Plan: Admit to PCU observation, cardiac monitoring, IV fluids, n.p.o., IV Protonix drip, repeat H&H at 10 AM this morning, general surgery consult. #2 syncopal episode: Likely due to vasovagal syncope. EKG reviewed, showed no acute ischemic changes or cardiac arrhythmias. Plan for cardiac monitoring, no indication for further cardiac work-up. #3 hyperlipidemia: Hold statins. #4 depression: Hold sertraline. #5 asthma: Stable, on room air. Complaints. #6 DVT prophylaxis: SCDs. This note was generated with [employer] software. It may contain incorrect words, spelling, and punctuation that were not noted in checking the note before signing. OBSV E&M: 48889 Initial observation care L3
[2020-10-16] MEDS: 0.9% Normal Saline 1,000 ML 100 ML IV (06:48)
[2020-10-16] MEDS: 0.9% Saline Lock 10 ML Syringe IV (06:57)
[2020-10-16] MEDS: Ondansetron 4 MG/2 ML Vial IV (06:57)
--- NOTE | 2020-10-16 07:36 | PCM.CONS.GEN ---
Problem List (1) UGIB (upper gastrointestinal bleed) Status: Acute Reason for Consult Date of Consultation: 10/16/20 History of Present Illness: The patient is a 70 year old F presented after having 2 days of melanotic stool and coffee-ground emesis. The patient reports that for the last 2 days she has been having black stools and she has a long history of epigastric pain. The patient also had coffee-ground emesis yesterday evening. She reports that she had a Lupillo fundoplication in the past and even during several prior EGD she has had gastritis and antral ulcers. She has never had coffee-ground emesis. Past Medical History Past Medical History (Chronic Problems): Chronic Problems Hyperlipidemia (Chronic) Depression (Chronic) Asthma (Chronic) Allergies estradiol [From Estrace] Allergy (Verified 05/22/19 12:09) Itching oxycodone Allergy (Verified 05/22/19 12:09) Itching Penicillins Allergy (Verified 05/22/19 12:09) Itching prednisone Allergy (Verified 05/22/19 12:09) Rash raloxifene [From Evista] Allergy (Verified 05/22/19 12:09) Itching celecoxib [From Celebrex] Adverse Reaction (Verified 05/22/19 12:09) Nausea dicyclomine Adverse Reaction (Verified 05/22/19 12:09) Other DRY MOUTH BLURRED VISON LOSS OF TASTE fluoxetine [From Prozac] Adverse Reaction (Verified 05/22/19 12:09) Nausea fluticasone [From Advair Diskus] Adverse Reaction (Verified 05/22/19 12:09) Other HURTS THROAT hyoscyamine Adverse Reaction (Verified 05/22/19 12:09) Unknown meloxicam [From Mobic] Adverse Reaction (Verified 05/22/19 12:09) Nausea methylprednisolone [From Medrol] Adverse Reaction (Verified 05/22/19 12:09) Other DRY MOUTH SORE THROAT morphine Adverse Reaction (Verified 10/16/20 03:50) Itching salmeterol [From Advair Diskus] Adverse Reaction (Verified 05/22/19 12:09) Other HURTS THROAT Home Medications: Ambulatory Orders Medication Instructions Recorded Albuterol Inhaler [Ventolin Hfa 2 puff INHALATION Q4H PRN PRN 03/02/16 (SP)] Cholecalciferol (VIT D3) [Vitamin 1,000 unit PO DAILY 05/19/19 D] Aspirin [Aspirin, Baby] 81 mg PO DAILY@0800 10/16/20 Atorvastatin Calcium 10 mg PO QHS 10/16/20 Loratadine [Claritin] 10 mg PO DAILY 10/16/20 Sertraline HCl 25 mg PO DAILY 10/16/20 Surgical History: - - Surgery for hiatal hernia. Bladder surgery x3. Psychiatric History: Depression RESIDENCY PROGRAM COORDINATOR History: No pertinent RESIDENCY PROGRAM COORDINATOR history Lives: Spouse/ Significant Other Smoking Status: Never smoker Alcohol: None Drugs: None - *Family History Maternal History Items: No pertinent history Paternal History Items: No pertinent history Review of Systems Constitutional: Denies: Anorexia, Fever HEENT: Denies: Difficulty Swallowing Cardiovascular: Denies: Chest Pain Respiratory: Denies: Cough, Shortness of Breath Gastrointestinal: Reports: Abdominal Pain, Hematemesis, Nausea, Melena. Denies: Constipation, Diarrhea, Hematochezia, Vomiting Musculoskeletal: Denies: Joint Tenderness Skin: Denies: Jaundice Neurological: Denies: Balance problems Hematologic/ Lymphatic: Denies: Easy Bleeding Patient Problems: Active and Suspected Problems UGIB (upper gastrointestinal bleed) (Acute) - Physical Exam Vitals/I&O's: Vital Signs Temp Pulse Resp BP Pulse Ox 98.2 F 77 16 127/86 H 99 10/16/20 06:37 10/16/20 06:37 10/16/20 06:37 10/16/20 06:37 10/16/20 06:37 Oxygen Delivery Method Room Air Weight: 187 lb 13.341 oz Body Mass Index (BMI) 31.2 Intake and Output for Last 24 Hours 10/14/20 10/15/20 10/16/20 23:59 23:59 23:59 Intake Total 35 / 35 Balance 35 / 35 General: Alert, Oriented x3 Neck: No JVD Lungs: Normal air movement Cardiovascular: Regular rate, Regular Rhythm Abdomen: Soft, Non-Distended Microbiology Past 72 Hours 10/16/20 05:25 Mucosa - Nose SARS-CoV-2 Antigen (Rapid) - Final Laboratory Results 10/16/20 03:20: WBC 7.8, RBC 4.00 L, Hgb 12.6, Hct 38.3, MCV 95.8, MCH 31.5, MCHC 32.9, RDW Std Deviation 48.3 H, RDW Coeff of Enrike 13.5, Plt Count 334, MPV 11.0, Immature Gran % (Auto) 0.400, Neut % (Auto) 47.4, Lymph % (Auto) 31.7, [place] % (Auto) 9.6, Eos % (Auto) 10.3 H, Baso % (Auto) 0.6, Absolute Neuts (auto) 3.7, Absolute Lymphs (auto) 2.48, Nucleated RBC % 0 10/16/20 03:20: PT 13.3, INR 1.1 10/16/20 03:20: Sodium 139, Potassium 4.0, Chloride 109 H, Carbon Dioxide 25.0, Anion Gap 5, BUN 28 H, Creatinine 0.63, Estim Creat Clear Calc 47.10, Est GFR (MDRD) Af Amer 120, Est GFR (MDRD) Non-Af 100, BUN/Creatinine Ratio 44.6 H, Glucose 155 H, Calcium 8.5, Total Bilirubin 0.60, AST 20, ALT 31, Alkaline Phosphatase 98, Total Protein 7.0, Albumin 3.4, Globulin 3.6, Albumin/Globulin Ratio 0.9, Lipase 50 L 10/16/20 03:20: Blood Type O POSITIVE, Antibody Screen NEGATIVE Current Medications Acetaminophen (Acetaminophen 325 Mg Tablet) 650 mg PO Q6H PRN PRN PRN Reason: Pain Score 1-10/Temp > 100.7 F Sodium Chloride () 1,000 mls @ 100 mls/hr IV .Q10H [facility] Last Admin: 10/16/20 06:48 Dose: 100 mls/hr Documented by: Pantoprazole Sodium 80 mg/ (Sodium Chloride) 100 mls @ 10 mls/hr CONT INF Q10H [facility] Ondansetron HCl (Ondansetron 4 Mg/2 Ml Vial) 4 mg IV Q8H PRN PRN PRN Reason: NAUSEA/VOMITING Last Admin: 10/16/20 06:57 Dose: 4 mg Documented by: Sodium Chloride (0.9% Saline Lock 10 Ml Syringe) 10 - 40 ml IV UD PRN PRN Reason: SALINE FLUSH Last Admin: 10/16/20 06:57 Dose: 10 ml Documented by: Assessment/Plan All Active Problems UGIB (upper gastrointestinal bleed) (Acute) 70-year-old female with upper GI bleed 1. Patient had a syncopal episode with coffee-ground emesis as well as melena. I discussed EGD with her. I discussed strategies to stop upper GI bleed such as injected with epinephrine or clipping. I explained endoscopy in detail to the patient. I explained the risks including but not limited to stroke or heart attack with anesthesia, perforation of the GI tract, bleeding, infection. I explained that any of these could necessitate further emergency surgery. The patient understands and all questions were answered sufficiently. The patient wishes to proceed with procedure. 2. Patient is currently on Protonix and n.p.o. Continue to check serial H&H. Patient is not on any blood thinners at home. Tom Galeano MD Pager: [facility] [address] [place] [address], [address] [place] [phone] Office:
[2020-10-16 10:39] LABS: Hematocrit 34.9 % (37-47); Hemoglobin 11.4 g/dL (12.0-15.0)
--- NOTE | 2020-10-16 11:47 | PN_ITS ---
Patient Problems: Active and Suspected Problems UGIB (upper gastrointestinal bleed) (Acute) Subjective: Patient seen and examined. She was admitted with a complaint of coffee-ground emesis and dark stools as well as syncope. She has a history of GERD for which she had Lupillo's fundoplication and says she had an EGD in 2019 and was told she had a tiny gastric ulcer. She has been managed for syncope and probable upper GI bleed. Vitals/I&O's: Vital Signs Temp Pulse Resp BP Pulse Ox 98.1 F 64 14 123/54 H 96 10/16/20 09:10 10/16/20 09:10 10/16/20 09:10 10/16/20 09:10 10/16/20 09:10 Oxygen Flow Rate (L/min) 96 Oxygen Delivery Method Room Air Weight: 187 lb 13.341 oz Body Mass Index (BMI) 31.2 Intake and Output for Last 24 Hours 10/14/20 10/15/20 10/16/20 23:59 23:59 23:59 Intake Total 35 / 35 Balance 35 / 35 General: Alert, Oriented x3, Cooperative HEENT: Atraumatic, PERRLA, EOMI, Normocephalic Oral: Dry Mucosa Neck: Supple, No JVD, Negative Carotid Bruits Lungs: Clear to auscultation, Normal air movement Cardiovascular: Regular rate, No murmurs Abdomen: Bowel Sounds Present, Soft, Non Tender Extremities: No edema, Capillary Refill Less than 3 Seconds Skin: No rashes, No breakdown Musculoskeletal: No Tenderness to Palpation of Joints or Extremities Neurological: Cranial nerves II-XII grossly intact, Neuro grossly intact, Motor Exam 5/5 strength throughout Psych/Mental Status: Normal Affect, Appropriate, Alert and oriented to time, place, person, mood and affect Microbiology Past 72 Hours 10/16/20 05:25 Mucosa - Nose SARS-CoV-2 Antigen (Rapid) - Final Laboratory Results 10/16/20 03:20: WBC 7.8, RBC 4.00 L, Hgb 12.6, Hct 38.3, MCV 95.8, MCH 31.5, MCHC 32.9, RDW Std Deviation 48.3 H, RDW Coeff of Enrike 13.5, Plt Count 334, MPV 11.0, Immature Gran % (Auto) 0.400, Neut % (Auto) 47.4, Lymph % (Auto) 31.7, [place] % (Auto) 9.6, Eos % (Auto) 10.3 H, Baso % (Auto) 0.6, Absolute Neuts (auto) 3.7, Absolute Lymphs (auto) 2.48, Nucleated RBC % 0 10/16/20 03:20: PT 13.3, INR 1.1 10/16/20 03:20: Sodium 139, Potassium 4.0, Chloride 109 H, Carbon Dioxide 25.0, Anion Gap 5, BUN 28 H, Creatinine 0.63, Estim Creat Clear Calc 47.10, Est GFR (MDRD) Af Amer 120, Est GFR (MDRD) Non-Af 100, BUN/Creatinine Ratio 44.6 H, Glucose 155 H, Calcium 8.5, Total Bilirubin 0.60, AST 20, ALT 31, Alkaline Phosphatase 98, Total Protein 7.0, Albumin 3.4, Globulin 3.6, Albumin/Globulin Ratio 0.9, Lipase 50 L 10/16/20 03:20: Blood Type O POSITIVE, Antibody Screen NEGATIVE 10/16/20 10:25: Hgb 11.4 L, Hct 34.9 L Diagnostic Data Abdomen/Pelvis CT 10/16/20 04:07 IMPRESSION: Right-sided simple renal cyst and likely liver cyst as described. If indicated, follow-up with a right upper quadrant ultrasound in nonacute setting recommended to document simple cyst. No focal inflammatory process or signs of bowel obstruction. Electronically Signed: Cristina Schaefer MD at 4:58 EDT , Service support , Current Medications Acetaminophen (Acetaminophen 325 Mg Tablet) 650 mg PO Q6H PRN PRN PRN Reason: Pain Score 1-10/Temp > 100.7 F Sodium Chloride () 1,000 mls @ 100 mls/hr IV .Q10H [facility] Last Admin: 10/16/20 06:48 Dose: 100 mls/hr Documented by: Pantoprazole Sodium 80 mg/ (Sodium Chloride) 100 mls @ 10 mls/hr CONT INF Q10H [facility] Last Admin: 10/16/20 08:08 Dose: 10 mls/hr Documented by: Ondansetron HCl (Ondansetron 4 Mg/2 Ml Vial) 4 mg IV Q8H PRN PRN PRN Reason: NAUSEA/VOMITING Last Admin: 10/16/20 06:57 Dose: 4 mg Documented by: Sodium Chloride (0.9% Saline Lock 10 Ml Syringe) 10 - 40 ml IV UD PRN PRN Reason: SALINE FLUSH Last Admin: 10/16/20 06:57 Dose: 10 ml Documented by: STROKE Vital Signs/Narrative: Vital Signs Temp Pulse Resp BP Pulse Ox 10/16/20 09:10 98.1 F 64 14 123/54 H 96 10/16/20 08:34 14 Medical Necessity - Tobacco Use Smoking Status: Never smoker Assessment/Plan All Active Problems UGIB (upper gastrointestinal bleed) (Acute) #Acute upper GI bleed * Does have a history of gastric ulcers per EGD May 2019. * Hemoglobin is 11.4. * General surgery on board. For EGD today. * On Protonix drip. * Keep NPO. * Continue gentle hydration with IV fluids. * #Syncope: Likely vasovagal due to upper GI bleed. Will monitor. #Hyperlipidemia: On statins. #Depression: On sertraline #Asthma: Breathing treatments with bronchodilators. Not in exacerbation. DVT prophylaxis: SCDs. no anticoagulation o/a of UGI bleed OBSV E&M: 62509 Subsequent observation care L2
--- NOTE | 2020-10-16 13:30 | IMM_PTH ---
PATIENT: JASIEL BARRERA LOC: [facility] U#:[id number] AGE/SX: 70/F ROOM: [facility] RE10/16/[address]: Dr. Sofia Hoff MD : 1950 BED: 1 DIS: 10/17/2020 SPEC #: [id number] RECD: 10/17/20 09:18 STATUS: TOSHIA REQ #: [id number] MARA: 10/16/20 13:[address]: Tom Galeano DEPT: IMMUNOHISTOCHEMISTRY RECD BY: Colleen Baker ENTERED: 10/17/20 09:19 SP TYPE: IMMUNO OTHR DR: MD Dr. Scot Somers MD Dr. Nana Yaa Koram, MD Tissues: Stomach, NOS Procedures: H Pylori (initial) PHYSICIAN & INSTITUTION [place] [id number] SPECIMEN INFORMATION: Tissue Source: Antral biopsy Clinical Info: Upper GI bleed Specimen Number: [id number] CPT code: 33771 METHODOLOGY: Deparaffinized sections of prefer/formalin-fixed tissue or PAP/DQ stained slides are incubated with monoclonal/polyclonal antibodies/oligonucleotide probes. Localization is made via biotin free immunoperoxidase method. Appropriate controls are performed and reacted as expected. Results on target cell population are indicated in the following table: RESULTS: ANTIBODY / CLONE RESULT H Pylori (polyclonal) negative These tests were developed and their performance characteristics determined by [facility]. They may not have been cleared or approved by the U.S. Food and Drug Administration. The FDA has determined that such clearance or approval is not necessary. INTERPRETATION: Antral biopsy: Negative for Helicobacter pylori organisms. SJ:wu 10/18/2020
--- NOTE | 2020-10-16 13:46 | OP.EGD_ITS ---
Patient Name: Nora Camarillo Procedure Date: 10/16/2020 12:51 PM Date of : 1950 Age: 70 Procedure: Upper GI endoscopy Indications: Coffee-ground emesis, Melena Providers: Tom Galeano MD Medicines: Monitored Anesthesia Care Patient Profile: This is a 70 year old female. Refer to note in patient chart for documentation of history and physical. Complications: No immediate complications. Procedure: Pre-Anesthesia Assessment: - Prior to the procedure, a History and Physical was performed, and patient medications and allergies were reviewed. The patient's tolerance of previous anesthesia was also reviewed. The risks and benefits of the procedure and the sedation options and risks were discussed with the patient. All questions were answered, and informed consent was obtained. Prior Anticoagulants: The patient has taken no previous anticoagulant or antiplatelet agents. After reviewing the risks and benefits, the patient was deemed in satisfactory condition to undergo the procedure. After obtaining informed consent, the endoscope was passed under direct vision. Throughout the procedure, the patient's blood pressure, pulse, and oxygen saturations were monitored continuously. The gastroscope was introduced through the mouth, and advanced to the fourth part of duodenum. The upper GI endoscopy was accomplished without difficulty. The patient tolerated the procedure well. Scope In: 1:39:28 PM Scope Out: 1:43:16 PM Total Procedure Duration Time 0 hours 3 minutes 48 seconds Findings: The esophagus was normal. Two non-bleeding cratered gastric ulcers with no stigmata of bleeding were found in the prepyloric region of the stomach. Biopsies were taken with a cold forceps for Helicobacter pylori testing. The examined duodenum was normal. Impression: - Normal esophagus. - Non-bleeding gastric ulcers with no stigmata of bleeding. Biopsied. - Normal examined duodenum. Recommendation: - Return patient to [facility] for ongoing care. - Resume previous diet. - Continue present medications. - Use Prilosec (omeprazole) 20 mg PO BID. Procedure Code(s): --- Professional --- 13136, Esophagogastroduodenoscopy, flexible, transoral; with biopsy, single or multiple Diagnosis Code(s): --- Professional --- K25.9, Gastric ulcer, unspecified as acute or chronic, without hemorrhage or perforation K92.0, Hematemesis K92.1, Melena (includes Hematochezia) CPT copyright 2017 [employer]. All rights reserved. The codes documented in this report are preliminary and upon small kick press operator review may be revised to meet current compliance requirements. Tom Galeano MD 10/16/2020 1:46:13 PM This report has been signed electronically. Number of Addenda: 0 Note Initiated On: 10/16/2020 12:51 PM
--- NOTE | 2020-10-16 13:46 | OP.CCLET_ITS ---
10/16/2020 Scot Bird MD Re : Upper GI endoscopy procedure for Nora Camarillo Dear Dr. Bird This procedure was performed on Friday, October 16, 2020. My impressions and recommendations are as follows: Impressions : - Normal esophagus. - Non-bleeding gastric ulcers with no stigmata of bleeding. Biopsied. - Normal examined duodenum. Recommendations : - Return patient to [facility] for ongoing care. - Resume previous diet. - Continue present medications. - Use Prilosec (omeprazole) 20 mg PO BID. My findings are described in the full procedure note, which is enclosed. If I can be of further assistance, please feel free to contact me at Doctor phone number(s): , Work: . Sincerely, Tom Galeano MD 10/16/2020 1:46:13 PM This report has been signed electronically.
--- NOTE | 2020-10-16 13:49 | PCM.PN.BLA ---
Progress Note The patient had EGD today and she had 2 prepyloric ulcers. One of them was deep with a crater but no active bleeding. The rim of the ulcer was biopsied. The patient did not have any active bleeding on EGD and I recommend the patient be started on a regular diet as well as a PPI and Carafate and she may be discharged home once tolerating a follow-up with me. Tom Galeano MD Pager: [facility] [address] [place] [address] [address] [place] [address] Office: STRO[facility] Vital Signs/Narrative: Vital Signs Temp Pulse Resp BP Pulse Ox 10/16/20 12:39 97.9 F 63 18 130/74 H 99 10/16/20 12:35 97.9 F 63 18 130/74 H 99 10/16/20 12:00 70
[2020-10-16] MEDS: Lactated Ringers 1,000 ML 100 ML IV ×2 (14:00→21:12)
[2020-10-16] MEDS: Sucralfate 1 GM Tablet PO ×2 (16:35→21:12)
[2020-10-16] MEDS: Pantoprazole Sodium 20 MG Tablet PO (21:12)
--- NOTE | 2020-10-16 21:27 | EKG12_ITS ---
Test Reason : CP Blood Pressure : / mmHG Vent. Rate : 084 BPM Atrial Rate : 084 BPM P-R Int : 162 ms QRS Dur : 092 ms QT Int : 362 ms P-R-T Axes : 064 -08 069 degrees QTc Int : 427 ms Normal sinus rhythm Poor R wave progression Confirmed by GREGORY MCINTYRE, ASAD ([id number]), editorial cartoonist BANDAR JOSÉ ([id number]) on 10/24/2020 11:32:11 AM Referred By: DR SHEETS Confirmed By:ASAD JENKINS MD
[2020-10-16] MEDS: Loratadine 10 MG Tablet PO (22:29)
[2020-10-16] MEDS: guaiFENesin 10 ML UDC (200MG/10ML) PO (22:29)
[2020-10-16] MEDS: Albuterol 2.5 MG/3 ML VIAL.NEB. INHALATION (23:00)
[2020-10-17] VITALS (7 sets, daily range): BP systolic 113–121; BP diastolic 61–64; PULSE 74–89; RESP 16–18; TEMP 36.6–36.8; O2SAT 76–97
[2020-10-17] MEDS: guaiFENesin 10 ML UDC (200MG/10ML) PO (04:31)
[2020-10-17] MEDS: Albuterol 2.5 MG/3 ML VIAL.NEB. INHALATION (04:40)
[2020-10-17] MEDS: Sucralfate 1 GM Tablet PO ×2 (06:19→11:06)
[2020-10-17] MEDS: Lactated Ringers 1,000 ML 100 ML IV (06:19)
[2020-10-17 07:04] LABS: Absolute Lymphocyte Count 1.75 X10^3/uL (0.83-4.51); Basophil# 0.02 X10^3/uL; Basophil% 0.3 % (0-1); Eosinophils% 9.9 % (0-5); Hematocrit 30.4 % (37-47); Hemoglobin 9.8 g/dL (12.0-15.0); Lymphocyte # 1.75 X10^3/ul (4.0); Lymphocyte % 28.8 % (19-41); Mean Corp Hgb Conc 32.2 g/dL (32-36); Mean Corpuscular Hgb 31.6 pg (27.0-32.0); Mean Corpuscular Volume 98.1 fL (81-99); Mean Platelet Vol. 10.9 fl (6.2-12.0); Monocyte# 0.71 X10^3/uL; Monocyte% 11.7 % (0-10); NRBC Flagged by Analyzer 0 % (0-5); Neutrophil # 2.98 X10^3/uL (2.7-7.7); Neutrophil % 49.1 % (47-70); Platelet Count 222 K/mm3 (150-450); RBC Distribution Width CV 14.3 % (11.6-14.6); RBC Distribution Width SD 51.4 fl (35.1-43.9); White Blood Count 6.1 K/mm3 (4.4-11.0)
[2020-10-17 07:32] LABS: Anion Gap 3 (5-15); BUN 14 mg/dL (7-18); BUN/Creat Ratio 23.6 RATIO (10-20); Calcium,Total 8.1 mg/dL (8.5-10.1); Chloride 111 mmol/L (98-107); Creatinine, Serum 0.59 mg/dL (0.55-1.02); EST Glomerular Filtration Rate 106 mL/min (>60); Est Glom Filt Rate - Afr Amer 128 mL/min (>60); Glucose 120 mg/dL (74-106); Potassium 3.5 mmol/L (3.5-5.1); Sodium Level 142 mmol/L (136-145)
[2020-10-17] MEDS: Loratadine 10 MG Tablet PO (08:05)
[2020-10-17] MEDS: Pantoprazole Sodium 20 MG Tablet PO (08:05)
--- NOTE | 2020-10-17 11:05 | CASEMGMT ---
RN TILA NOTE: Intro role of CM to patient and [facility] form explained re: Observation status for treatment of syncope and GI Bleed . Explained hospitalization will be paid per insurance policy for Outpatient billing and condition will continue to be evaluated for Inpt necessity. Also let pt know that [facility] sends paper in the billing packet with their phone number if questions arise. Discussed Pharmacy section of [facility] form and self administered medication guideline. Pt verbalizes understanding and does not have further questions. Form signed, copy made and placed in chart, and original given to pt. Pt denies having any concerns w/going home @ discharge and denies any discharge needs. Dulce Maria PITTMANN RN CM
--- NOTE | 2020-10-17 11:30 | DCINST_ITS ---
- Discharge Diagnoses Current Active Problems: Current Active and Chronic Problems Hyperlipidemia (Chronic) Depression (Chronic) Asthma (Chronic) UGIB (upper gastrointestinal bleed) (Acute) You will use the following diet at home:: Cardiac Your food should be the consistency of: Regular Your liquids should be the consistency of: Regular/Thin Discharge Activity: Return to Normal Activity Weight Bearing Status: Weight bearing as tolerated Call your doctor if you observe: Fever of 101 or Higher, Shortness of breath, Dizziness, - - abdominal pain, blood in stool, dark stools. Instructions: ED Upper GI Bleeding (Stable) Additional Instructions: to stop taking aspirin if you have any abdominal pain, dark stools, see blood in your bowel movement or any coffee ground vomiting. Allergies/Adverse Reactions: Allergies estradiol [From Estrace] Allergy (Verified 05/22/19 12:09) Itching oxycodone Allergy (Verified 05/22/19 12:09) Itching Penicillins Allergy (Verified 05/22/19 12:09) Itching prednisone Allergy (Verified 05/22/19 12:09) Rash raloxifene [From Evista] Allergy (Verified 05/22/19 12:09) Itching celecoxib [From Celebrex] Adverse Reaction (Verified 05/22/19 12:09) Nausea dicyclomine Adverse Reaction (Verified 05/22/19 12:09) Other DRY MOUTH BLURRED VISON LOSS OF TASTE fluoxetine [From Prozac] Adverse Reaction (Verified 05/22/19 12:09) Nausea fluticasone [From Advair Diskus] Adverse Reaction (Verified 05/22/19 12:09) Other HURTS THROAT hyoscyamine Adverse Reaction (Verified 05/22/19 12:09) Unknown meloxicam [From Mobic] Adverse Reaction (Verified 05/22/19 12:09) Nausea methylprednisolone [From Medrol] Adverse Reaction (Verified 05/22/19 12:09) Other DRY MOUTH SORE THROAT morphine Adverse Reaction (Verified 10/16/20 03:50) Itching salmeterol [From Advair Diskus] Adverse Reaction (Verified 05/22/19 12:09) Other HURTS THROAT Medications to take at Discharge Albuterol Inhaler [Ventolin Hfa] 2 puff INHALATION Q4H PRN PRN 03/02/16 Cholecalciferol (VIT D3) [Vitamin D3] 1,000 unit PO DAILY 05/19/19 Aspirin [Aspirin, Baby] 81 mg PO DAILY@0800 10/16/20 Atorvastatin Calcium 10 mg PO QHS 10/16/20 Loratadine [Claritin] 10 mg PO DAILY 10/16/20 Pantoprazole Sodium [Protonix] 20 mg PO BID #60 tablet 10/16/20 Sertraline HCl 25 mg PO DAILY 10/16/20 Sucralfate [Carafate] 1 gm PO 1HR_ACHS #90 tablet 10/16/20 The following prescriptions were given: Sucralfate [Carafate] 1 gm PO 1HR_ACHS #90 tablet Transmission Status: Received by [facility] Pantoprazole Sodium [Protonix] 20 mg PO BID #60 tablet Transmission Status: Received by [facility] Primary Care Physician: Scot Bird MD [Primary Care Provider] - Please follow up with your Primary Care Physician in: 1-2 weeks Test Results: Test results from this visit will be discussed in further detail at your follow- up appointment, if applicable. Please Follow Up With: Tom Galeano MD When: 2-3 weeks Proposed Discharge Date: 10/17/20
--- NOTE | 2020-10-17 11:56 | PN.SURG_ITS ---
Patient Problems: Active and Suspected Problems UGIB (upper gastrointestinal bleed) (Acute) Subjective: Patient was not discharged yesterday due to dizziness. She reports that she is also having a cough. No nausea or vomiting. She did have a stool which was black in color. - Physical Exam Vitals/I&O's: Vital Signs Temp Pulse Resp BP Pulse Ox 98.2 F 74 18 121/61 H 93 10/17/20 07:56 10/17/20 07:56 10/17/20 07:56 10/17/20 07:56 10/17/20 07:56 Oxygen Flow Rate (L/min) 2 Oxygen Delivery Method Room Air Weight: 187 lb 13.341 oz Body Mass Index (BMI) 31.2 Intake and Output for Last 24 Hours 10/15/20 10/16/20 10/17/20 23:59 23:59 23:59 Intake Total 2121 1251.67 / 1251.67 Balance 2121 1251.67 / 1251.67 General: Alert, Oriented x3 Cardiovascular: Regular rate, Regular Rhythm Abdomen: Soft, Non Tender, Non-Distended Microbiology Past 72 Hours 10/16/20 05:25 Mucosa - Nose SARS-CoV-2 Antigen (Rapid) - Final Laboratory Results 10/17/20 06:18: WBC 6.1, RBC 3.10 L, Hgb 9.8 L, Hct 30.4 L, MCV 98.1, MCH 31.6, MCHC 32.2, RDW Std Deviation 51.4 H, RDW Coeff of Enrike 14.3, Plt Count 222, MPV 10.9, Immature Gran % (Auto) 0.200, Neut % (Auto) 49.1, Lymph % (Auto) 28.8, [place] % (Auto) 11.7 H, Eos % (Auto) 9.9 H, Baso % (Auto) 0.3, Absolute Neuts (auto) 3.0, Absolute Lymphs (auto) 1.75, Nucleated RBC % 0 10/17/20 06:18: Sodium 142, Potassium 3.5, Chloride 111 H, Carbon Dioxide 28.0, Anion Gap 3 L, BUN 14, Creatinine 0.59, Estim Creat Clear Calc 47.10, Est GFR ( MDRD) Af Amer 128, Est GFR (MDRD) Non-Af 106, BUN/Creatinine Ratio 23.6 H, Glucose 120 H, Calcium 8.1 L Current Medications Acetaminophen (Acetaminophen 325 Mg Tablet) 650 mg PO Q6H PRN PRN PRN Reason: Pain Score 1-10/Temp > 100.7 F Albuterol Sulfate (Albuterol 2.5 Mg/3 Ml Vial.Neb.) 2.5 mg INHALATION Q2H PRN PRN PRN Reason: SHORTNESS OF BREATH Last Admin: 10/17/20 04:40 Dose: 2.5 mg Documented by: Guaifenesin (Guaifenesin 10 Ml Udc (200mg/10ml)) 10 ml PO Q4H PRN PRN PRN Reason: COUGH Last Admin: 10/17/20 04:31 Dose: 10 ml Documented by: Lactated Ringer's () 1,000 mls @ 100 mls/hr IV .Q10H [facility] Last Admin: 10/17/20 06:19 Dose: 100 mls/hr Documented by: Loratadine (Loratadine 10 Mg Tablet) 10 mg PO DAILY [facility] Last Admin: 10/17/20 08:05 Dose: 10 mg Documented by: Ondansetron HCl (Ondansetron 4 Mg/2 Ml Vial) 4 mg IV Q8H PRN PRN PRN Reason: NAUSEA/VOMITING Last Admin: 10/16/20 06:57 Dose: 4 mg Documented by: Pantoprazole Sodium (Pantoprazole Sodium 20 Mg Tablet) 20 mg PO BID [facility] Last Admin: 10/17/20 08:05 Dose: 20 mg Documented by: Sodium Chloride (0.9% Saline Lock 10 Ml Syringe) 10 - 40 ml IV UD PRN PRN Reason: SALINE FLUSH Last Admin: 10/16/20 06:57 Dose: 10 ml Documented by: Sucralfate (Sucralfate 1 Gm Tablet) 1 gm PO 1HR_ACHS [facility] Last Admin: 10/17/20 11:06 Dose: 1 gm Documented by: Medical Necessity - Tobacco Use Smoking Status: Never smoker Assessment/Plan All Active Problems UGIB (upper gastrointestinal bleed) (Acute) 70-year-old female with upper GI bleeding gastric ulcer 1. The patient had EGD yesterday and the gastric ulcer was not actively bleeding at the time. She was started on Carafate and PPI. Hemoglobin appears stable. Continue PPI daily. Discharge and follow-up with me in the office. Tom Galeano MD Pager: [facility] [address] [place] [address] [address] [place] [address] Office:
--- NOTE | 2020-10-17 14:33 | DS.PCM_ITS ---
Discharge Date and Diagnosis - Problem List Patient Problems: Active and Suspected Problems UGIB (upper gastrointestinal bleed) (Acute) Date of Admission: 10/16/20 Date of Discharge: 10/17/20 - Primary Discharge Diagnosis Acute Problems: Active Problems UGIB (upper gastrointestinal bleed) (Acute) peptic ulcer disease - Secondary Discharge Diagnosis Chronic Problems: Chronic Problems Hyperlipidemia (Chronic) Depression (Chronic) Asthma (Chronic) Hospital Course and Treatment Imaging Results: Diagnostic Data Abdomen/Pelvis CT 10/16/20 04:07 IMPRESSION: Right-sided simple renal cyst and likely liver cyst as described. If indicated, follow-up with a right upper quadrant ultrasound in nonacute setting recommended to document simple cyst. No focal inflammatory process or signs of bowel obstruction. Electronically Signed: Cristina Schaefer MD at 4:58 EDT , Service support , general surgery - Dr Galeano Operations: None Procedures: EGD Summary of Care Provided: The patient is a 70 year old F who was admitted via the ED on 10/16/2020 with a complaint of syncope and dark stools as well as coffee-ground emesis. She passed out when she went to use the toilet. She had had a couple of episodes of vomiting and emesis was very dark and coffee-ground. She had a history of hiatal hernia and had surgery several years prior to admission. She denied any [id number] use of NSAIDs. She was however baby aspirin. She had had an EGD in 2019 which showed nonbleeding gastric ulcer. In the ED, vitals were stable and CT of the abdomen with IV contrast showed a right simple renal cyst but no other acute pathology. She was admitted to be managed for upper GI bleed and syncope. She was hydrated with IV fluids and general surgery was consulted. Globin was 12.6 on admission. She had EGD which showed 2 nonbleeding cratered gastric ulcers with no stigmata of bleeding in the prepyloric region of the stomach of which biopsies were taken. Duodenum was normal and esophagus was normal. She was put on Protonix 20 mg twice daily and sucralfate. Per discussion with general surgery, patient was okay to continue taking her aspirin 81 mg daily, which she says she took on account of peripheral artery disease for which she had had a stent placed in the lower extremities. Of note, no record of this could be found in the EMR. She remained stable and was discharged on 10/17/2020. Hemoglobin was 9.8 at time of discharge. She is to follow-up with her primary care doctor and general surgery and counseled to stop taking aspirin immediately if she had any coffee-ground emesis or dark stools and to call her primary care doctor or come to the emergency. Patient seen and examined prior to discharge. She had no complaints. Review of systems otherwise negative. Labs and vitals reviewed. Home medication reviewed and reconciled. O/E: Vital Signs Temp Pulse Resp BP Pulse Ox 98.0 F 82 16 121/61 H 94 10/17/20 11:55 10/17/20 11:55 10/17/20 11:55 10/17/20 07:56 10/17/20 11:55 [] General: Alert, Oriented x3, Cooperative HEENT: Atraumatic, PERRLA, EOMI, Normocephalic Oral: Dry Mucosa Neck: Supple, No JVD, Negative Carotid Bruits Lungs: Clear to auscultation, Normal air movement Cardiovascular: Regular rate, No murmurs Abdomen: Bowel Sounds Present, Soft, Non Tender Extremities: No edema, Capillary Refill Less than 3 Seconds Skin: No rashes, No breakdown Musculoskeletal: No Tenderness to Palpation of Joints or Extremities Neurological: Cranial nerves II-XII grossly intact, Neuro grossly intact, Motor Exam 5/5 strength throughout Psych/Mental Status: Normal Affect, Appropriate, Alert and oriented to time, place, person, mood and affect Plan is for discharge home today. Patient Problems: Active and Suspected Problems UGIB (upper gastrointestinal bleed) (Acute) - Physical Exam Vitals/I&O's: Vital Signs Temp Pulse Resp BP Pulse Ox 98.0 F 82 16 121/61 H 94 10/17/20 11:55 10/17/20 11:55 10/17/20 11:55 10/17/20 07:56 10/17/20 11:55 Oxygen Flow Rate (L/min) 2 Oxygen Delivery Method Room Air Weight: 187 lb 13.341 oz Body Mass Index (BMI) 31.2 Intake and Output for Last 24 Hours 10/15/20 10/16/20 10/17/20 23:59 23:59 23:59 Intake Total 2121 2251.67 / 2251.67 Balance 2121 2251.67 / 2251.67 Microbiology Past 72 Hours 10/16/20 05:25 Mucosa - Nose SARS-CoV-2 Antigen (Rapid) - Final Laboratory Results 10/17/20 06:18: WBC 6.1, RBC 3.10 L, Hgb 9.8 L, Hct 30.4 L, MCV 98.1, MCH 31.6, MCHC 32.2, RDW Std Deviation 51.4 H, RDW Coeff of Enrike 14.3, Plt Count 222, MPV 10.9, Immature Gran % (Auto) 0.200, Neut % (Auto) 49.1, Lymph % (Auto) 28.8, [place] % (Auto) 11.7 H, Eos % (Auto) 9.9 H, Baso % (Auto) 0.3, Absolute Neuts (auto) 3.0, Absolute Lymphs (auto) 1.75, Nucleated RBC % 0 10/17/20 06:18: Sodium 142, Potassium 3.5, Chloride 111 H, Carbon Dioxide 28.0, Anion Gap 3 L, BUN 14, Creatinine 0.59, Estim Creat Clear Calc 47.10, Est GFR (MDRD) Af Amer 128, Est GFR (MDRD) Non-Af 106, BUN/Creatinine Ratio 23.6 H, Glucose 120 H, Calcium 8.1 L Discharge Diet: Low fat/ Low Cholesterol Discharge Activity: Return to Normal Activity Weight Bearing Status: Weight bearing as tolerated Call your doctor if you observe: Fever of 101 or Higher, Shortness of breath, Dizziness, - - abdominal pain, blood in stool, dark stools. Home Medications: Medications to take at Discharge Albuterol Inhaler [Ventolin Hfa] 2 puff INHALATION Q4H PRN PRN 03/02/16 Cholecalciferol (VIT D3) [Vitamin D3] 1,000 unit PO DAILY 05/19/19 Aspirin [Aspirin, Baby] 81 mg PO DAILY@0800 10/16/20 Atorvastatin Calcium 10 mg PO QHS 10/16/20 Loratadine [Claritin] 10 mg PO DAILY 10/16/20 Pantoprazole Sodium [Protonix] 20 mg PO BID #60 tablet 10/16/20 Sertraline HCl 25 mg PO DAILY 10/16/20 Sucralfate [Carafate] 1 gm PO 1HR_ACHS #90 tablet 10/16/20 Following Prescriptions Were Given to Patient: Sucralfate [Carafate] 1 gm PO 1HR_ACHS #90 tablet Transmission Status: Received by [facility] Pantoprazole Sodium [Protonix] 20 mg PO BID #60 tablet Transmission Status: Received by [facility] Primary Care Physician: Scot Bird MD [Primary Care Provider] - Please follow up with your Primary Care Physician in: 1-2 weeks Please Follow Up With: Tom Galeano MD When: 2-3 weeks Patient Instructions: ED Upper GI Bleeding (Stable) Disposition: Home Minutes spent on discharge:: 35 Patient Condition:: Stable Medical Necessity - Tobacco Use Smoking Status: Never smoker Meaningful Use Info Meaningful Use Diagnoses (Choose all that apply): None applicable OBSV E&M: 29686 Observation care discharge
== END 2020-10-17 11:34 | disposition home or self-care (01) ==
LOC: ED 05:16 → PCU 05:22
PROVIDERS: Surgery; Admitting Provider Hospitalist; Emergency Provider Emergency Medicine; PCP Family Medicine; Visit Provider Student in an Organized Health Care Education/Training Program
PROC: 0DJ08ZZ Inspection of Upper Intestinal Tract, Via Natural or Artificial Opening Endoscopic (ICD-10-PCS; CPT 43235; principal; 2020-10-16 13:25)
DX: K25.9 Gastric ulcer, unspecified as acute or chronic, without hemorrhage or perforation (principal); K92.1 Melena; E78.5 Hyperlipidemia, unspecified; F32.9 Major depressive disorder, single episode, unspecified; J45.909 Unspecified asthma, uncomplicated; K92.0 Hematemesis; R55 Syncope and collapse; Z87.19 Personal history of other diseases of the digestive system; Z79.899 Other long term (current) drug therapy; Z79.82 Long term (current) use of aspirin; K21.9 Gastro-esophageal reflux disease without esophagitis; N28.1 Cyst of kidney, acquired
CPT/HCPCS: 43239; 36415; 74177; 80048; 80053; 83690; 85014; 85018; 85025; 85610; 86850; 86900; 86901; 87426; 88305; 88342; 93005; 94640; 96361; 96365; 96366; 96375; 99218; 99285; J7030; J7120; Q9967; A4216; G0378; J2405; J3490

== ENCOUNTER → 2021-04-22 13:17 | Outpatient (CLI) | payer MEDICARE, OTHER, SELFPAY ==
--- NOTE | 2021-04-22 13:26 | VDLE_ITS ---
Reason For Study: pain Procedure LEFT This is a venous duplex using B-mode, color GSV is normal. flow and spectral Doppler. CFV is compressible, spontaneous, phasic, Exam performed in department. competent, and demonstrates normal The exam was abbreviated due to the COVID 19 augmentation. protocol. FV is compressible, spontaneous, phasic, The exam was diagnostic. competent and demonstrates normal A preliminary report was called and/or faxed augmentation. to [facility] clinical desk. POP V is compressible, spontaneous, phasic, competent and demonstrates normal augmentation. T/P Trunk is compressible. PTV is compressible. LT PerV is compressible. VL/Venous Duplex US, Unilateral Interpretation Summary Deep veins of the left lower extremity are patent and compressible segmentally. There is no evidence of left lower extremity deep vein thrombosis. Valvular competence appears intac t within the proximal deep venous system on the left . The left great saphenous vein appears patent a nd compressible segmentally. Ordering Physician: Rick Villavicencio Performed By: Abram Murillo RVT
== END ==
PROVIDERS: PCP Family Medicine; Referring Provider Physician Assistant; Visit Provider Physician Assistant
DX: M25.572 Pain in left ankle and joints of left foot (principal); R60.0 Localized edema
CPT/HCPCS: 93971

== ENCOUNTER → 2021-06-23 09:35 | Outpatient (CLI) | payer MEDICARE, OTHER, SELFPAY ==
--- NOTE | 2021-06-23 09:46 | US_ITS ---
STUDY: RENAL ULTRASOUND - COMPLETE REASON FOR EXAM: Female, 71 years old. Recurrent UTIs. TECHNIQUE: Ultrasound evaluation of the kidneys was performed with real-time and static cooley-scale imaging. COMPARISON: None. FINDINGS: RIGHT KIDNEY: Normal location of the right kidney, which is normal in size. The right kidney measures 10.3 cm x 4.8 cm x 5.8 cm. There is a normal cortex of the right kidney. The renal cortex measures 1.7 cm. There is a 1.9 cm x 1.9 cm x 1.6 cm cyst. There are no right renal calculi. There is no right hydronephrosis. DISTAL RIGHT URETER: There is non-visualization of the distal right ureter. There is no demonstrated right ureterovesical junction calculus. There is no demonstrated right ureteral jet. LEFT KIDNEY: Normal location of the left kidney, which is normal in size. The left kidney measures 10.6 cm x 5.2 cm x 5.5 cm. There is a normal cortex of the left kidney. The renal cortex measures 1.3 cm. There is no left renal mass or cyst. There are no left renal calculi. There is no left hydronephrosis. DISTAL LEFT URETER: There is non-visualization of the distal left ureter. There is no demonstrated left ureterovesical junction calculus. There is no demonstrated left ureteral jet. BLADDER: The distended urinary bladder has a volume of 41 ml. The empty urinary bladder has a volume of 18 ml. There is a normal wall thickness of the distended urinary bladder. There is no demonstrated mass within the urinary bladder. There are no demonstrated bladder calculi. US/Kidney and Bladder IMPRESSION: Small right renal cyst. Electronically Signed: Alejo Chaves MD at 15:35 EST , Service support ,
--- NOTE | 2021-06-23 13:34 | NEURO ---
NCS and/or EMG Patient Report Ordering Doctor: Scot Garcia DATE OF SERVICE: 06/23/21 Indication: Bilateral leg pain. Frequent leg cramps over the last four years. Sensitivity to touch in both feet. Localized back pain, but no clear radicular symptoms. Findings: Nerve conduction studies were performed in the right and left lower extremity. The right peroneal motor study recording the extensor digitorum brevis showed a normal amplitude, normal distal latency and normal conduction velocity. No conduction block or focal slowing was present across the fibular neck. The right tibial motor study recording the abductor hallucis brevis showed a slightly reduced amplitude, normal distal latency and normal conduction velocity. Right sural sensory response showed a normal amplitude and borderline conduction velocity. Right superficial peroneal sensory response showed a normal amplitude and conduction velocity. Right medial plantar response showed a normal amplitude and conduction velocity. The left peroneal motor study recording the extensor digitorum brevis showed a normal amplitude, normal distal latency and borderline conduction velocity. No conduction block or focal slowing was present across the fibular neck. The left tibial motor study recording the abductor hallucis brevis showed a normal amplitude, normal distal latency and normal conduction velocity. Left sural sensory response showed a normal amplitude and conduction velocity. Left superficial peroneal sensory response was absent. Left medial plantar response showed a normal amplitude and conduction velocity. Needle EMG of the right lower extremity and lumbar paraspinal muscles was performed. The examination was abbreviated due to patient discomfort. Sparse active denervation was present in the extensor hallucis longus and paraspinal muscles. Motor units could not be assessed in the extensor hallucis longus due to pain. Motor units in the tensor fascia latae were large amplitude and long duration. Motor units in the medial gastrocnemius, tibialis anterior and vastus medialis revealed normal motor unit morphology, activation and recruitment patterns. Needle EMG of the left lower extremity and lumbar paraspinal muscles was performed. The examination was abbreviated due to patient discomfort. No denervation was present in any muscle. Motor units in the tensor fascia latae were large amplitude, long duration and mildly polyphasic. All other motor unit morphology, activation and recruitment patterns were normal. Impression: This is an abnormal and complex study. Within the limitations of this examination, there is electrophysiologic evidence suggestive of a chronic, right L5 radiculopathy. There is no definitive evidence of lumbosacral radiculopathy in the left lower extremity. Please note: the electrodiagnosis of radiculopathy is made on the basis of excluding peripheral nerve lesions on nerve conduction studies and the needle EMG demonstrating denervation and/or reinnervation in the distribution of one or more nerve roots (i.e., acute and/or chronic axonal loss). Thus, electrodiagnostic studies are insensitive in detecting radiculopathy in the absence of axonal loss (e.g., in the setting of compression resulting in intermittent ischemia or mechanical deformation; or demyelination without axonal loss). Finally, there is no electrophysiologic evidence of a large fiber peripheral polyneuropathy. The absent left superficial sensory response is of unclear significance, but may be technical in nature given the absence of sensory symptoms in that distribution. Kael Esparza D.O. Multi Select Codes Neurology Neurology Interp Codes: 89335-27 [facility] tst done w/nerv tst [place] (interp) (Qty:2) and 89904-08 [facility] [place] cndj test 9-10 studies (interp)
== END ==
LOC: PSN 09:43
PROVIDERS: PCP Family Medicine; Referring Provider Urology; Visit Provider Urology
DX: M47.26 Other spondylosis with radiculopathy, lumbar region (principal); N39.0 Urinary tract infection, site not specified
CPT/HCPCS: 76770; 95886; 95912

== ENCOUNTER → 2021-11-18 | Outpatient (CLI) | payer MEDICARE, OTHER, SELFPAY ==
--- NOTE | 2021-11-18 14:00 | VDLE_ITS ---
Reason For Study: Pain RIGHT GSV is normal. CFV is compressible, spontaneous, phasic, competent and demonstrates normal augmentation. FV is compressible, spontaneous, phasic, competent and demonstrates normal augmentation. POP V is compressible, spontaneous, phasic, competent and demonstrates normal augmentation. T/P Trunk is compressible. PTV is compressible. RT PerV is compressible. Procedure This is a venous duplex using B-mode, color flow and spectral Doppler. Exam performed in department. A preliminary report was called and/or faxed to [facility]. VL/Venous Duplex US, Unilateral Interpretation Summary Deep veins of the right lower extremity are patent and compressible segmentally . There is no evidence of right lower extremity deep vein thrombosis. Valvular competence shannon ears intact within the proximal deep venous system on the right . The right great saphenous vein a ppears patent and compressible segmentally. Ordering Physician: Nadir Cunha Referring Physician: Scot Bird Performed By: Key Price RVT
== END | disposition home or self-care (01) ==
LOC: CVS 13:56
PROVIDERS: PCP Family Medicine; Visit Provider Orthopaedic Surgery
DX: M79.661 Pain in right lower leg (principal)
CPT/HCPCS: 93971

== ENCOUNTER 2021-12-22 12:21 | Day surgery (SDC) | payer MEDICARE, OTHER, SELFPAY ==
[2021-12-22] VITALS (10 sets, daily range): BP systolic 126–157; BP diastolic 66–82; PULSE 67–74; RESP 16–18; TEMP 36.4–37.3; O2SAT 95–100; BMI 32.9
[2021-12-22] MEDS: Lactated Ringers 1,000 ML 15 ML IV (12:53)
[2021-12-22] MEDS: Clindamycin 900 MG/50 ML BAG 75 MG IV (13:33)
[2021-12-22] MEDS: Lidocaine 1% /Epi 1:100 (20ml) 20 ML Vial (13:53)
[2021-12-22] MEDS: Epinephrine (1 mg/ml) 1 MG/ML VIAL (13:53)
--- NOTE | 2021-12-22 14:00 | RAD_ITS ---
EXAM: XR RIGHT KNEE, 1 OR 2 VIEWS CLINICAL INDICATION: RIGHT MEDIAL MENISECTOMY AND SUBCHONDROPLASTY TECHNIQUE: Frontal and/or lateral views of the right knee. This report was created using [employer] report generation technology. COMPARISON: None. FINDINGS: BONES/JOINTS: AP and lateral views of the right knee obtained in the OR. Surgical probe extends into the medial tibial plateau. Bony changes are otherwise unremarkable. SOFT TISSUES: Unremarkable. RAD/Knee 1 or 2 Views IMPRESSION: As above. Electronically Signed: Deng Celeste MD at 16:49 EDT ,
--- NOTE | 2021-12-22 14:31 | OP.PCM_ITS ---
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
[2021-12-22] MEDS: HYDROcodone Bitartrate/Apap 5/325 Tablet PO (16:14)
== END 2021-12-22 17:55 | disposition home or self-care (01) ==
LOC: SDC 12:22 → AC 12:23
PROVIDERS: PCP Family Medicine; Referring Provider Orthopaedic Surgery; Visit Provider Orthopaedic Surgery
PROC: 3E0U3GB Introduction of Recombinant Bone Morphogenetic Protein into Joints, Percutaneous Approach (ICD-10-PCS; CPT 0707T; principal; 2021-12-22 13:45)
DX: S83.241A Other tear of medial meniscus, current injury, right knee, initial encounter (principal); M22.41 Chondromalacia patellae, right knee; M84.361A Stress fracture, right tibia, initial encounter for fracture; M17.11 Unilateral primary osteoarthritis, right knee; E78.00 Pure hypercholesterolemia, unspecified; J45.909 Unspecified asthma, uncomplicated; E66.9 Obesity, unspecified; Z68.33 Body mass index [BMI] 33.0-33.9, adult
CPT/HCPCS: 29881; 01400; 0707T; 73560; 76000; C1713; J7120; J2405

== ENCOUNTER → 2022-11-16 | Outpatient (CLI) | payer MEDICARE, OTHER, SELFPAY ==
--- NOTE | 2022-11-16 11:24 | US_ITS ---
STUDY: SUPERFICIAL ULTRASOUND - PLANTAR ASPECT OF THE LEFT FOOT REASON FOR EXAM: Female, 72 years old. FOREIGN BODY BETWEEN METATARSALS TECHNIQUE: A superficial ultrasound was performed with real-time and static polk-scale imaging. COMPARISON: None. FINDINGS: Focal linear echogenic density is seen on the plantar aspect of the soft tissues between the first and second metatarsals. This has a length of 1.8 cm. US/Ext Non Vasc Limited/Soft Tiss IMPRESSION: Findings suggestive of a linear foreign body in the soft tissues between the first and second metatarsals. This measures 1.8 cm. Electronically Signed: Alejo Chaves MD at 14:43 EDT ,
== END | disposition home or self-care (01) ==
LOC: US 11:22
PROVIDERS: PCP Family Medicine; Referring Provider Podiatrist; Visit Provider Podiatrist
DX: S90.852A Superficial foreign body, left foot, initial encounter (principal)
CPT/HCPCS: 76882

== ENCOUNTER → 2022-12-08 | Outpatient (CLI) | payer MEDICARE, OTHER, SELFPAY ==
[2022-12-08 12:20] LABS: Absolute Lymphocyte Count 1.98 X10^3/uL (0.83-4.51); Absolute Neutrophil Count 2.3 X10^3/uL (2.0-7.7); Basophil# 0.05 X10^3/uL; Basophil% 0.9 % (0-1); Eosinophil# 0.36 X10^3/uL; Eosinophils% 6.8 % (0-5); Hematocrit 43.8 % (37-47); Hemoglobin 14.4 g/dL (12.0-15.0); Lymphocyte # 1.98 X10^3/ul (0.83-4.51); Lymphocyte % 37.2 % (19-41); Mean Corp Hgb Conc 32.9 g/dL (32-36); Mean Corpuscular Hgb 31.6 pg (27.0-32.0); Mean Corpuscular Volume 96.3 fL (81-99); Mean Platelet Vol. 10.8 fl (6.2-12.0); Monocyte# 0.67 X10^3/uL; Monocyte% 12.6 % (0-10); NRBC Flagged by Analyzer 0 % (0-5); Neutrophil # 2.25 X10^3/uL (2.7-7.7); Neutrophil % 42.3 % (47-70); Platelet Count 334 K/mm3 (150-450); RBC Distribution Width CV 13.1 % (11.6-14.6); RBC Distribution Width SD 46.5 fl (35.1-43.9); Red Blood Count 4.55 M/mm3 (4.2-5.4); White Blood Count 5.3 K/mm3 (4.4-11.0)
[2022-12-08 13:14] LABS: AST(SGOT) 17 U/L (15-37); Alanine Aminotransfer ALT/SGPT 29 U/L (13-56); Albumin, Serum 3.6 g/dL (3.2-5.0); Alkaline Phosphatase 111 U/L (45-117); Anion Gap 9 (5-15); BUN 13 mg/dL (7-18); BUN/Creat Ratio 14.8 RATIO (10-20); Calcium,Total 8.9 mg/dL (8.5-10.1); Chloride 109 mmol/L (98-107); Creatinine, Serum 0.88 mg/dL (0.55-1.02); EST Glomerular Filtration Rate 67 mL/min (>60); Est Glom Filt Rate - Afr Amer 81 mL/min (>60); Globulin 3.7 g/dL (2.2-4.2); Glucose 100 mg/dL (74-106); Potassium 4.3 mmol/L (3.5-5.1); Protein, Total 7.3 g/dL (6.4-8.2); Sodium Level 141 mmol/L (136-145)
== END | disposition home or self-care (01) ==
LOC: MFPLAB 11:39
PROVIDERS: PCP Family Medicine; Visit Provider Family Medicine
DX: Z01.818 Encounter for other preprocedural examination (principal)
CPT/HCPCS: 36415; 80053; 85025

== ENCOUNTER 2022-12-18 05:49 | Day surgery (SDC) | payer MEDICARE, OTHER, SELFPAY ==
[2022-12-18] VITALS (11 sets, daily range): BP systolic 127–154; BP diastolic 51–75; PULSE 72–88; RESP 16–18; TEMP 36.3–36.9; O2SAT 90–96; BMI 33.2
--- NOTE | 2022-12-18 | FORE_PTH ---
PATIENT: JASIEL BARRERA LOC: [facility] [place] U#:[id number] AGE/SX: 72/F ROOM: RE12/18/[address]: Dr. Rajendra Gibson DPM : 1950 BED: DIS: 12/18/2022 SPEC #: [id number] RECD: 12/18/22 10:15 STATUS: TOSHIA ANH #: [id number] MARA: 12/18/22 00:[address]: Rajendra Gibson DEPT: SURGICAL PATHOLOGY RECD BY: Huey Santillan ENTERED: 12/18/22 10:15 SP TYPE: FOREIGN B MAY DR: Dr. Scot Bird MD Tissues: FOREIGN BODY Procedures: Surgery Specimen Level I HEADER OPERATION: Removal of needle/foreign body left foot PRE-OP DIAGNOSIS: Foreign body left foot TISSUE SUBMITTED: Foreign body left foot MICROSCOPIC DIAGNOSIS Foreign body (metallic wire like foreign body, gross only). HARMAN:wu 12/21/2022 MICROSCOPIC DESCRIPTION Slides are reviewed. GROSS DESCRIPTION Received in fixative is one container labeled with the patient's name and designated foreign body left foot. The specimen consists of a piece of metallic wire like foreign body measuring 1.6 cm in length and <0.1 cm in diameter. The specimen is for gross identification only. / SJ:wu 12/18/2022 CPT: 89363
[2022-12-18] MEDS: Lactated Ringers 1,000 ML 15 ML IV ×2 (06:28→09:20)
--- NOTE | 2022-12-18 07:15 | RAD_ITS ---
HISTORY: FB. TECHNIQUE: 2 spot images. COMPARISON: US 11/16/2022. FINDINGS: OSSEOUS STRUCTURES: Surgical instruments over the left foot with a linear foreign body noted between the first and second metatarsals on the first image. FLUOROSCOPY TIME: 1 minute 26 seconds. RADIATION DOSE: 0.73 mGY RAD/Foot 2 Views IMPRESSION: Image guidance for foreign body removal. Please refer to operative note. Electronically Signed: Alyx Gamboa MD at 9:36 EDT ,
[2022-12-18] MEDS: Clindamycin 900 MG/50 ML BAG 75 MG IV (07:27)
[2022-12-18] MEDS: Bupivacaine Mpf 0.5% 30 ML VIAL (07:55)
[2022-12-18] MEDS: Bacitracin 500 UNITS/GM PACKET (08:34)
--- NOTE | 2022-12-18 08:50 | OP.PCM_ITS ---
Report of Operation Date of Procedure: 12/18/22 Pre-Operative Diagnosis: 1) left foot foreign body metallic unknown 2) pain left foot related to foreign body Post-Operative Diagnosis: Same Surgery/Procedure Performed:: Removal of foreign body left foot Description of Surgical Findings:: Left foot foreign body was confirmed in the office using radiographic imaging. Ultrasound was used for further detailing the foreign body. Appear to be a needle shaped metallic object. This correlated with the patient's pain and symptoms. Ultrasound demonstrated that the foreign body was down to the level of the flexor tendon. Surgeon: Rajendra Gibson screen printing stencil preparer: None (farrah beverage) Type of Anesthesia: General/Regional Special Medications: 20 cc half percent Marcaine plain used an ankle block Specimen's removed: Needle type metallic object sent to pathology Drains: None Estimated Blood Loss (mL): Minimal Description of Procedure: Patient brought back to the operating room placed comfortably in supine position on the operating room table. Patient induced under general anesthesia. All osseous prominences offloaded to prevent any compression neuropraxia. Well- padded left thigh tourniquet applied. No hip bump required. Left lower extremity ankle block was performed using standard technique with 20 cc of half percent Marcaine plain. Left lower extremity was scrubbed prepped draped using typical aseptic fashion. Once cleared by anesthesia the left lower extremity was elevated exsanguinated tourniquet was inflated to 300 mmHg. Using DeFrank in gauge needles in multiple planes of use on fluoroscopy the needle shaped object was triangulated in both its depth and location in between the first and second metatarsal plantarly. Once the position was confirmed and identified incision was made and dissection was performed following the needle that closely correspond with the location of the metallic foreign body. Incision was made through epidermis dermis into subcutaneous tissue any bleeders at this time were identified and cauterized blunt dissection was taken down the level of plantar fascia this was linearly transected and dissected all the way as the needle shaped object was confirmed to be down to level of flexor tendon. Once we are down to the level of flexor tendon. A small incision was made through the flexor tendon and the metallic object became apparent. This was removed in its entirety and confirmed using fluoroscopic imaging and passed to the back table sent to pathology for further examination. The incision was then flushed with copious amounts of normal sterile saline tourniquet was let down to note any bleeders at the site none were noted deep closure was performed with buried interrupted 2-0 Vicryl subcutaneous closure performed with buried interrupted 2-0 Vicryl skin closure performed with 2-0 Prolene using horizontal mattress technique. Incision dressed with bacitracin Adaptic 4 x 4's ABD pads Kerlix and Kiran bandage. Patient transferred to PACU vital signs stable vascular status intact all digits for further monitoring prior to discharge patient tolerated procedure and anesthesia well apparent satisfactory condition. There is no evidence of infection at the foreign body site. Patient up-to-date on her tetanus. No complications noted. Entire foreign body was removed with this procedure.
[2022-12-18] MEDS: Albuterol 2.5 MG/3 ML VIAL.NEB. INHALATION (10:44)
== END 2022-12-18 12:33 | disposition home or self-care (01) ==
LOC: SDC 05:51 → AC 05:51
PROVIDERS: PCP Family Medicine; Referring Provider Podiatrist; Visit Provider Podiatrist
PROC: (CPT 28190; principal; 2022-12-18 07:20)
DX: S90.852A Superficial foreign body, left foot, initial encounter (principal); E66.9 Obesity, unspecified; J45.909 Unspecified asthma, uncomplicated; E78.00 Pure hypercholesterolemia, unspecified; Z79.82 Long term (current) use of aspirin; Z79.899 Other long term (current) drug therapy; Z68.33 Body mass index [BMI] 33.0-33.9, adult; X58.XXXA Exposure to other specified factors, initial encounter
CPT/HCPCS: 28190; 00400; 73620; 76000; 88300; 94640; J7120; J2405

== ENCOUNTER 2025-02-12 14:41 | Emergency (ER) | payer MEDICARE, OTHER, SELFPAY ==
[2025-02-12 14:43] VITALS: BP 185/84; PULSE 81; RESP 16; TEMP 37; O2SAT 98; BMI 30.9
--- NOTE | 2025-02-12 15:21 | EDS_ITS ---
HPI History of Present Illness Chief Complaint: Other, Pain/Inj Detail of Chief Complaint: DVT left soleal vein Informant: patient Onset/Context/Timing Onset: - (Unknown) Context: - (Seen by Dr. Nunn and ordered venous duplex study) Timing: - (Swelling of the left ankle distal calf) Quality: Swelling Location: Left lower extremity Current Severity: Mild Maximum Severity: Mild Worsened by: Not think Relieved by: Nothing Associated Symptoms Associated Symptoms: No chest pain or shortness of breath Narrative Narrative: Patient is a 74-year-old woman. She denies history of cancer. She has no risk factors for DVT that she is aware of. She denies recent travel, surgery, immobilization. She denies chest pain, pain with breathing, dyspnea, dyspnea on exertion. She saw Dr. Nunn for the first time today and because of the swelling and discomfort he ordered a outpatient venous duplex study. There is no abnormality noted on the right side. There is a clot noted left soleus on the left. She is on no hormonal therapy. Prior similar symptoms: No Recent Illness/Hospitalization: No PFSH PFS Medical History Wears glasses Depression Anxiety Ambulates with cane Arthritis High cholesterol Restless legs Blackout History of diverticulosis History of ulceration Gastric reflux Asthma Shortness of breath on exertion Leg cramps History of pain when walking History of stress test History of ganglion cyst Home Medications ?Medication ?Instructions ?Recorded ?Last Taken ?Type albuterol sulfate 90 mcg/actuation 2 puff inhalation Q 4H PRN PRN 03/02/16 Unknown History aerosol inhaler (Ventolin HFA) Shortness Of Breath cholecalciferol (vitamin D3) 25 1,000 unit PO DAILY vi tamin 05/19/19 Unknown History mcg (1,000 unit) tablet budesonide 0.25 mg/2 mL suspension 0.25 mg inhalation PRN PRN ASTHMA 12/16/21 Unknown History for nebulization pantoprazole 20 mg tablet,delayed 20 mg PO BID PRN Sto mach Upset 12/14/22 Unknown History release zolpidem 12.5 mg tablet,extended 12.5 mg PO QHS PRN In somnia 12/14/22 Unknown History release,multiphase (Ambien CR) aspirin 81 mg capsule 162 mg (2 x 81 mg) PO DAILY 21 12/18/22 Unknown Rx days #42 caps hydrocodone 5 mg-acetaminophen 300 1 tab PO Q6H PRN pa in 7 days #28 12/18/22 Unknown Rx mg tablet tabs hydrocodone-acetaminophen 5-325mg 1 tab PO Q8H PRN giancarlo n 7 days #21 12/18/22 Unknown Rx 5mg-325mg tabs Allergy/AdvReac Type Severity Reaction Status Date / Time estradiol (From Estrace) Allergy Itching Verified 02/12/25 14:44 oxycodone Allergy Itching Verified 02/12/25 14:44 Penicillins Allergy Itching Verified 02/12/25 14:44 prednisone Allergy Rash Verified 02/12/25 14:44 raloxifene (From Evista) Allergy Itching Verified 02/12/25 14:44 celecoxib (From Celebrex) AdvReac Nausea Verified 02/12/25 14:44 dicyclomine AdvReac Other Verified 02/12/25 14:44 fluoxetine (From Prozac) AdvReac Nausea Verified 02/12/25 14:44 fluticasone (From Advair AdvReac Other Verified 02/12/25 14:44 Diskus) hyoscyamine AdvReac Unknown Verified 02/12/25 14:44 meloxicam (From Mobic) AdvReac Nausea Verified 02/12/25 14:44 methylprednisolone (From AdvReac Other Verified 02/12/25 14:44 Medrol) morphine AdvReac Itching Verified 02/12/25 14:44 salmeterol (From Advair AdvReac Other Verified 02/12/25 14:44 Diskus) Surgical History History of arthroscopy of right knee Hx of arthroscopy of left knee History of cardiac catheterization Hx of tonsillectomy Hx of inguinal hernia repair Hx of umbilical hernia repair History of decompression of ulnar nerve Hx of hysterectomy History of laparoscopy History of carpal tunnel surgery of right wrist History of carpal tunnel surgery of left wrist Hx of bilateral cataract extraction Hx of colonoscopy History of Lupillo fundoplication Hx of bladder repair surgery History of esophagogastroduodenoscopy (EGD) Social History (Updated 02/12/25 @ 15:[address] Fidel Marte MD) household members: spouse Smoking Status: Never smoker ROS ROS ED Cardiovascular Cardiovascular: Denies chest pain, orthopnea, palpitations, paroxysmal nocturnal dyspnea or racing heartbeat Respiratory/Chest Respiratory/Chest: Denies cough, dyspnea, dyspnea on exertion, orthopnea or paroxysmal nocturnal dyspnea Musculoskeletal Musculoskeletal: Reports other Details: Swelling distal left leg and ankle Hematologic/Lymphatic Hematologic/Lymphatic: Reports systems reviewed and no addt'l complaints, except as documented; Denies easy bleeding or easy bruising EXAM Physical Exam Const Vital Signs: 02/12/25 14:43 Temperature 98.6 F Temperature Source Oral Pulse Rate 81 Respiratory Rate 16 Blood Pressure 185/84 H Blood Pressure Mean 117 Pulse Ox 98 Oxygen Delivery Method Room Air Positive well nourished and well developed General Appearance ED: well developed; Negative for cyanotic, diaphoretic or pallor HEENT Reports moist mucous membranes HEENT Narrative: Head is atraumatic and normocephalic. Ears normal. Eyes PERRL and EOMs intact bilaterally General Eye ED: Negative for pale conjunctiva or scleral icterus Neck no lymphadenopathy and no JVD Cardio regular rate and regular rhythm GI normal to inspection, nondistended, normoactive bowel sounds Extremity Negative for normal to inspection Extremity Narrative: There is swelling of the left distal leg. There are some discoloration of the distal calf. There is pain laterally. There is no pain or fullness in the popliteal fossa. PT and DP pulse are palpable. There is no tenderness along the abductor canal. Neuro oriented x3 and CN's II-XII intact bilaterally Psych mental status grossly normal Skin no rashes or lesions noted, no wounds and skin turgor normal General Skin Exam: elasticity normal; Negative for jaundice or pallor MDM MDM MDM Narrative Medical decision making narrative: Patient has a distal DVT. Since she does not have history of cancer she was given option of anticoagulant versus serial outpatient venous duplex study of the left lower extremity to determine if there is propagation. If this does propagate and involves the popliteal or femoral vein she will require anticoagulation. After explaining risk benefits plan is serial venous duplex study since she has no history of cancer. The wireless cellular technician also commented there is a hypoechoic nonvascular structure that is 1.35 x 0.46 cm left popliteal fossa. Discharge Plan Triage Chief Complaint: Other, Pain/Inj ED Provider: Marte,Fidel Dx/Rx/DC Orders Clinical Impression: DVT of lower limb, acute, Hyperlipidemia, Hx of upper gastrointestinal hemorrhage Instructions: ED Deep Vein Thrombosis (DVT) Prescriptions: No Action albuterol sulfate [Ventolin HFA] 1 INHALER inhaler 2 puff inhalation Q4H PRN PRN (Reason: Shortness Of Breath) cholecalciferol (vitamin D3) 1,000 UNIT tablet 1,000 unit PO DAILY budesonide 0.25 mg/2 mL Suspension For Nebulization 0.25 mg INHALATION PRN PRN (Reason: ASTHMA) zolpidem [Ambien CR] 12.5 mg Tablet,Ext Release Multiphase 12.5 mg PO QHS PRN (Reason: Insomnia) pantoprazole 20 mg tablet,delayed release (DR/EC) 20 mg PO BID PRN (Reason: Stomach Upset) Patient Comments: Take 1 tablet by mouth twice daily as needed. hydrocodone-acetaminophen 5-300 mg tablet 1 tab PO Q6H PRN (Reason: pain) 7 Days Qty: 28 0RF aspirin 81 mg capsule 162 mg PO DAILY 21 Days Qty: 42 0RF hydrocodone-acetaminophen 5-325 mg tablet 1 tab PO Q8H PRN (Reason: pain) 7 Days Qty: 21 0RF Other Ambulatory Orders: Venous Duplex US, Unilateral (Stat) Facility: [facility] - Location: [facility] Ordered By: Dr. Fidel Marte Primary Care Provider: Scot Bird Referrals: Scot Bird MD [Primary Care Provider] - Activity Restrictions/Additional Instructions: 1. If your leg becomes much larger in size return to the emergency department 2. If you develop chest pain or shortness of breath abruptly return to the emergency department 3. There was also noted to be a nonvascular structure behind your knee. This will need to be followed by Dr. Nunn. Print Language: Lebanese Disposition Disposition: Home, Self Care
[2025-02-12 15:47] VITALS: BP 138/87; PULSE 87; RESP 19; TEMP 36.6; O2SAT 100
--- OUTSIDE RECORDS SUMMARY | 2025-02-12 22:45 | XMS RPT_ITS | CCD ---
Author Organization [facility] Care Team Providers Care Pastrycook'S Assistant Name Role Phone NATALI ROJAS Unavailable Unavail able PAPNATALI SOLOMON Unavailable Unavail able PAPJUANITO NATALI JOHNNIE Unavailable Unavail able Scot Blank MD Primary Care Provider Scot Blank MD Primary Care Provider Scot Blank MD Primary Care Provider Scot Blank MD Primary Care Provider [phone] Dr. Gina Gibson Referring Unavailable Dr. Gina Gibson Attending Unavailable Scot Blank Primary Care Unavailable Haritha Egan Attending Unavailable Haritha Egan Primary Care Unavailable Dr. Gina Gibson Attending Unavailable Scot Balnk Primary Care Unavailable Dr. Gina Gibson Referring Unavailable Scot Blank MD Primary Care Provider Scot Blank MD Primary Care Provider Jefferson Thomason Unavailable Unavailable Quin Costa APRN.CNP Unavailable Jaylin Combs PA-C Unavailable Jazzy Pereira PT Unavailable [phone] Bryson Dhillon MD Unavailable [phone] Gina Samayoa PA-C Unavailable SCOT BLANK Primary Care Unavailable PROVIDER, UNKNOWN Referring Unavailable SCOT BLANK Primary Care Unavailable BRYSON DHILLON Referring Unavailable PROVIDER, UNKNOWN Referring Unavailable SCOT BLANK Primary Care Unavailable SCOT BLANK Primary Care Unavailable PROVIDER, UNKNOWN Referring Unavailable SCOT BLANK Primary Care Unavailable MARINO LU Consulting Unavailable BRYSON DHILLON Attending Unavailable BRYSON DHILLON Admitting Unavailable Scot Blank MD Primary Care Provider Scot Blank MD Primary Care Provider [phone] Julissa COLOR REPAIRER.ECHOCARDIOGRAPHER Quin Unavailable Julissa COLOR REPAIRER.ECHOCARDIOGRAPHER, Quin Unavailable Jaylin Combs PA-C Unavailable [phone] BRYSON DHILLON Referring Unavailable ABHAY, SCOT A Primary Care Unavailable REBEKAH EDUARDO Attending Unavailable BRYSON DHILLON Referring Unavailable ABHAY, SCOT A Primary Care Unavailable LORENZA REZA Attending Unavailable JAYLIN COMBS Referring Unavailable ABHAY, SCOT A Primary Care Unavailable JAYLIN COMBS Referring Unavailable ABHAY, SCOT A Primary Care Unavailable JAYLIN COMBS Attending Unavailable ABHAY, SCOT A Primary Care Unavailable JAYLIN COMBS Referring Unavailable ABHAY, SCOT A Primary Care Unavailable LIDYA PENA Referring Unavailable ABHAY, SCOT A Primary Care Unavailable LIDYA PENA Referring Unavailable ABHAY, SCOT A Primary Care Unavailable LIDYA PENA Attending Unavailable JAYLIN COMBS Referring Unavailable ABHAY, SCOT A Primary Care Unavailable JAYLIN COMBS Referring Unavailable ABHAY, SCOT A Primary Care Unavailable JAYLIN COMBS Referring Unavailable ABHAY, SCOT A Primary Care Unavailable BRYSON DHILLON Attending Unavailable REBEKAH EDUARDO Referring Unavailable ABHAY, SCOT A Primary Care Unavailable YARI RINCON Referring Unavailable ABHAY, SCOT A Primary Care Unavailable TALYA MAY Referring Unavailable ABHAY, SCOT A Primary Care Unavailable BRYSON DHILLON Attending Unavailable BRYSON DHILLON Referring Unavailable ABHAY, SCOT A Primary Care Unavailable JAYLIN COMBS Attending Unavailable ABHAY, SCOT A Primary Care Unavailable BRYSON DHILLON Attending Unavailable BRYSON DHILLON Referring Unavailable ABHAY, SCOT A Primary Care Unavailable JAYLIN COMBS Referring Unavailable ABHAY, SCOT A Primary Care Unavailable YARI RINCON Referring Unavailable ABHAY, SCOT A Primary Care Unavailable XANDER WU Attending Unavailable BRYSON DHILLON Referring Unavailable ABHAY, SCOT A Primary Care Unavailable JAYLIN COMBS Referring Unavailable ABHAY, SCOT A Primary Care Unavailable GARTH GONZALEZ Attending Unavailable GARTH GONZALEZ Referring Unavailable ABHAY, SCOT A Primary Care Unavailable VETOVITZ, REBEKAH Referring Unavailable ABHAY, SCOT A Primary Care Unavailable JAYLIN COMBS Attending Unavailable ABHAY, SCOT A Primary Care Unavailable JAZMIN, XANDER Attending Unavailable DHILLON, BRYSON Referring Unavailable ABHAY, SCOT A Primary Care Unavailable O'JACQUES, LISSA Attending Unavailable DHILLON, BRYSON Referring Unavailable ABHAY, SCOT A Primary Care Unavailable O'JACQUES, LISSA Attending Unavailable DHILLON, BRYSON Referring Unavailable ABHAY, SCOT A Primary Care Unavailable JAZMIN, XANDER Attending Unavailable DHILLON, BRYSON Referring Unavailable ABHAY, SCOT A Primary Care Unavailable JAZMIN, XANDER Attending Unavailable DHILLON, BRYSON Referring Unavailable ABHAY, SCOT A Primary Care Unavailable JAZMIN, XANDER Attending Unavailable DHILLON, BRYSON Referring Unavailable ABHAY, SCOT A Primary Care Unavailable O'JACQUES, LISSA Attending Unavailable DHILLON, BRYSON Referring Unavailable ABHAY, SCOT A Primary Care Unavailable VETOVITZ, REBEKAH Attending Unavailable ABHAY, SCOT A Primary Care Unavailable VETOVITZ, REBEKAH Referring Unavailable ABHAY, SCOT A Primary Care Unavailable VETOVITZ, REBEKAH Attending Unavailable VETOVITZ, REBEKAH Referring Unavailable ABHAY, SCOT A Primary Care Unavailable Dr. Scot Blank MD Primary Care Provider [phone] Edouard MEEKS, Dr. Schmitz Attending Provider [phone] Dr. Nadir Nunn DPM Referring Provider [phone] Dr. Fidel Marte MD Emergency Provider Allergies Allergy Classification Reported Allergen(s) Allergy Type Date of Onset Reaction(s) Facility (20 sources) celecoxib; Translations: [CELECOXIB] Drug Allergy 02-09-20 06 GI Upset [facility] Repository (20 sources) dicyclomine; Translations: [DICYCLOMINE] Drug Allergy 09-10-19 12 Other: See Comments [facility] Repository Comment on above: DRY MOUTH BLURRED VISON LOSS OF TASTE (20 sources) dicyclomine; Translations: [DICYCLOMINE HCL] Drug Allergy 10-04-19 10 Unknown [facility] Repository (20 sources) estradiol; Translations: [ESTRADIOL] Drug Allergy 03-17-20 05 Itching [facility] Repository (20 sources) FLUoxetine; Translations: [FLUOXETINE HCL] Drug Allergy 03-17-20 05 Unknown [facility] Repository (1 source) fluticasone / salmeterol; Translations: [FLUTICASONE-SALM ETEROL] Drug Allergy 05-14-20 11 AOF [facility] Repository (20 sources) hyoscyamine; Translations: [HYOSCYAMINE SULFATE] Drug Allergy 10-04-19 10 Unknown [facility] Repository (20 sources) methylprednisoLON E; Translations: [METHYLPREDNISOLO NE] Drug Allergy 09-28-19 15 Other: See Comments [facility] Repository Comment on above: DRY MOUTH SORE THROAT (20 sources) oxyCODONE; Translations: [OXYCODONE HCL] Drug Allergy 07-19-19 16 Itching [facility] Repository (20 sources) Penicillins; Translations: [PENICILLINS] Propensity to adverse reactions to drug (disorder) 03-17-20 05 Itching [facility] Repository (20 sources) predniSONE; Translations: [PREDNISONE] Drug Allergy 03-17-20 05 Rash [facility] Repository (20 sources) raloxifene; Translations: [RALOXIFENE HCL] Drug Allergy 03-17-20 05 Itching [facility] Repository (20 sources) fluticasone / salmeterol; Translations: [FLUTICASONE PROPION-SALMETERO L] Drug Allergy 05-14-20 11 Intolerance [facility] Work Phone: (20 sources) meloxicam; Translations: [MELOXICAM] Drug Allergy 05-22-20 19 Intolerance [facility] Work Phone: (20 sources) Morphine; Translations: [MORPHINE] Drug Allergy 03-03-20 17 GI Upset [facility] (20 sources) NITROFURANTOIN, MACROCRYSTALS / Nitrofurantoin, Monohydrate; Translations: [NITROFURANTOIN MONOHYD/M-CRYST] Drug Allergy 07-22-19 18 Other: See Comments [facility] Work Phone: (20 sources) Non-steroidal anti-inflammatory agent; Translations: [NSAIDS (NON-STEROIDAL ANTI-INFLAMMATORY DRUG)] Drug Intolerance 11-01-19 21 Other: See Comments [facility] Work Phone: (20 sources) Sulfamethizole; Translations: [SULFAMETHIZOLE] Drug Allergy 11-17-19 20 GI Upset [facility] Work Phone: (4 sources) FLUoxetine Drug Allergy 05-22-20 19 Nausea [facility] (4 sources) fluticasone Drug Allergy 05-22-20 19 Other [facility] Comment on above: HURTS THROAT (4 sources) Hyoscyamine Drug Allergy 05-22-20 19 Unknown [facility] (4 sources) oxyCODONE Drug Allergy 05-22-20 19 Itching [facility] (4 sources) Raloxifene Drug Allergy 05-22-20 19 Itching [facility] (4 sources) salmeterol Drug Allergy 05-22-20 19 Other [facility] Comment on above: HURTS THROAT (20 sources) Non-steroidal anti-inflammatory agent Drug Intolerance 11-01-19 Other: See Comments [facility] Work Phone: (1 source) FLUoxetine Drug Allergy 12-19-19 23 [facility] Repository (1 source) fluticasone Drug Allergy 12-19-19 23 [facility] Repository (1 source) Hyoscyamine Drug Allergy 12-19-19 23 [facility] Repository (1 source) meloxicam Drug Allergy 12-19-19 23 [facility] Repository (1 source) Morphine Drug Allergy 12-19-19 23 [facility] Repository (1 source) oxyCODONE Drug Allergy 12-19-19 23 [facility] Repository (1 source) Raloxifene Drug Allergy 12-19-19 23 [facility] Repository (1 source) salmeterol Drug Allergy 12-19-19 23 [facility] Repository Medications Current Medications Medication Drug Class(es) Dates Sig (Normalized) Sig (Original) acetaminophen 500 mg oral tablet (20 sources) Start: 07-27-2024 take 2 tablets by mouth every eight hours as needed acetaminophen (TYLENOL) 500 mg tablet Take 2 tablets by mouth every 8 hours as needed for pain. 90 tablet 07/27/2024 4:21 PM EST 07/27/2024 Active acetaminophen 300 mg / HYDROcodone bitartrate 5 mg oral tablet (2 sources) Opioid Agonist Start: 12-18-2022 take 1 tablet by mouth every six hours as needed for pain Hydrocodone-Acetamin ophen 5-300 mg tablet Active 1 {tbl} PO EVERY 6 HOURS as needed for pain 28 7 0 December 18, 2022 Other acute postprocedural pain Other acute postprocedural pain Start: 12-18-2022 take 1 tablet by shalini th every eight hours as needed for pain Hydrocodone-Acetaminophen 5-325 mg table t Active 1 {tbl} PO Q8H as needed for pain 21 7 0 December 18, 2022 Other acute postprocedural pain Other acute postprocedural pain [id number] actuat albuterol 0.09 mg/actuat metered dose inhaler (20 sources) beta2-Adrenergic Agonist Start: 04-26-2024 albut pari HFA (VENTOLIN HFA) 90 mcg/actuation inhaler Indications: Mild persistent asthma without complication [The details of the medication are not available because there are pending changes by a home health clinician.] 1 Each 3 04/26/2024 Active Start: 01-24-2020 End: 04-26-2024 take 2 puff(s) by inhalation every four hours as needed albuterol HFA (VENTOLIN HFA) 90 mcg/actuation inhaler Indications: Mild persistent asthma without complication (HCC) Inhale 2 Puffs as instructed every 4 hours as needed. 1 Each 3 04/26/2024 Active Start: 03-02-2016 take 1 puff(s) by in halation every four hours as needed Albuterol Sulfate (Ventolin Hfa) 1 INHALER inhaler Active 2 PUFF INHALATION EVERY 4 HOURS NEEDED March 02, 2016 6:57am Start: 03-02-2016 take 1 puff(s) by in halation every four hours as needed Albuterol Sulfate (Ventolin Hfa) 1 INHALER inhaler Active 2 PUFF INHALATION EVERY 4 HOURS NEEDED March 02, 2016 6:57am Start: 03-02-2016 Albuterol Sulf ate (Ventolin Hfa) 1 INHALER inhaler Active 2 NMA INHALATION EVERY 4 HOURS NEEDED as needed for Shortness Of Breath March 02, 2016 12:00am Start: 03-02-2016 take 1 puff(s) by in halation every four hours as needed Albuterol Sulfate (Ventolin Hfa) 1 INHALER inhaler Active 2 PUFF INHALATION EVERY 4 HOURS NEEDED March 02, 2016 12:00am Comment on above: Inhale 2 Puffs as in structed every 4 hours as needed. ascorbic acid 500 mg oral tablet (20 sources) Vitamin C Start: 07-27-2024 End: 08-10-2024 take 1 tablet by mouth twice daily at mealtime ascorbic acid, vitamin C, (VITAMIN C) 500 mg tablet Take 1 tablet by mouth two times a day with meals for 27 doses. 27 tablet 07/27/2024 4:21 PM EST 07/27/2024 Active Start: 12-16-2021 take 1 tablet by shalini once daily Ascorbic Acid (Vitamin C) (Vitamin C) 500 mg Tablet Extended Release Active 500 MG PO DAILY December 16, 2021 2:41pm End: 02-12-2022 take 1 tablet by mouth once daily ascorbic acid, vitamin C, (VITAMIN C) 500 mg tablet Take 500 mg by mouth once daily. 0 02/12/2022 Discontinued (Discontinued by Patient) Comment on above: Take 500 mg by mouth once daily. aspirin 81 mg delayed release oral tablet (20 sources) Platelet Aggregation Inhibitor, Nonsteroidal Anti-inflammatory Drug Start: 07-27-2024 End: 08-24-2024 take 1 tablet by mouth twice daily in the evening aspirin, enteric coated (ASPIRIN, ENTERIC COATED) 81 mg EC tablet Take 1 tablet by mouth two times a day for 28 days. 56 tablet 07/27/2024 4:21 PM EST 07/27/2024 Active Start: 12-18-2022 take 2 capsules by m out once daily Aspirin 81 mg capsule Active 162 mg PO DAILY 42 21 0 December 18, 2022 12:00am Start: 10-16-2020 take 81 mg by mouth once daily Aspirin Active 81 MG PO DAILY@0800 October 16, 2020 3:50am azithromycin 250 mg oral tablet (4 sources) Macrolide Antimicrobial Start: 11-09-2023 End: 11-14-2023 azithromycin (ZITHROMAX Z-JOLEEN) 250 mg tablet Take 2 tablets day one, then, 1 tablet daily until gone. 6 tablet 0 11/09/2023 11/14/2023 Active Start: 10-19-2022 End: 10-24-2022 azithromycin (ZITHROMAX Z-PA K) 250 mg tablet Take 2 tablets day one, then, 1 tablet daily until gone. 6 tablet 0 10/19/2022 10/24/2022 Active Comment on above: Take 2 tablets day o ne, then, 1 tablet daily until gone. budesonide 0.125 mg/ml inhalation suspension (20 sources) Corticosteroid Start: 12-16-2021 Budesonide 0.25 mg/2 mL Suspension For Nebulization Active 0.25 mg INHALATION NEEDED as needed for ASTHMA December 16, 2021 12:00am Start: 10-25-2020 End: 03-24-2024 budesonide (PULMICORT) 0.25 mg/2 mL nebulizer solution Indications: Mild intermittent asthma with exacerbation USE 2 ML VIA NEBULIZER TWICE DAILY. DX: MILD PERSISTENT ASTHMA J45.21 360 mL 1 10/25/2020 03/24/2024 Discontinued Comment on above: USE 2 ML VIA NEBULIZ ER TWICE DAILY. DX: MILD PERSISTENT ASTHMA J45.21 cholecalciferol 1.25 mg oral capsule (20 sources) Vitamin D Start: End: take 1 capsule by mouth every other week cholecalciferol, Vitamin D3, (VITAMIN D3) 1,250 mcg (50,000 unit) cap capsule Take 1 capsule by mouth every other week. 6 capsule 5 01/22/2025 Active Start: 03-24-2024 End: 10-24-2024 take 1 capsule by mouth every week cholecalciferol, Vitamin D3, (VITAMIN D3) 1,250 mcg (50,000 unit) cap capsule Take 1 capsule by mouth one time a week. 12 capsule 1 09/06/2024 10/24/2024 Discontinued (Adjust Sig - Block E-Cancel) Start: 05-19-2019 take 1 tablet by shalini once daily Cholecalciferol (Vitamin D3) 1,000 UNIT tablet Active 1000 U PO DAILY May 19, 2019 1:00am vitamin Start: 03-13-2019 End: 08-19-2022 take 1 capsule by mouth once daily Cholecalciferol, Vitamin D3, 5,000 unit cap Take 1 capsule by mouth once daily. 03/13/2019 08/19/2022 Discontinued Comment on above: Take 1 capsule by mo [facility] once daily. cyclobenzaprine hydrochloride 5 mg oral tablet (10 sources) Muscle Relaxant Start: 2024 take 1 tablet by mouth three times daily cyclobenzaprine (FLEXERIL) 5 mg tablet Indications: Back strain, initial encounter Take 1 tablet by mouth three times a day. 21 tablet 10/16/2024 Active methylPREDNISolone (1 source) Corticosteroid Start: 2024 End: 2024 methylPREDNISolone (MEDROL, JOLEEN,) 4 mg Dose-Pack Follow dosing instructions, take with food. 21 tablet 10/25/2024 10/31/2024 Active montelukast 10 mg oral tablet (20 sources) Leukotriene Receptor Antagonist Start: 2023 End: 2024 take 1 tablet by mouth once daily at bedtime montelukast (SINGULAIR) 10 mg tablet Take 1 tablet by mouth daily at bedtime. 90 tablet 2 01/18/2025 Active Start: 04-06-2023 End: 10-01-2023 take 1 tablet by mouth once daily at bedtime montelukast (SINGULAIR) 10 mg tablet Take 1 tablet by mouth daily at bedtime. 30 tablet 5 04/06/2023 10/01/2023 Discontinued Comment on above: Take 1 tablet by [facility] daily at bedtime. mupirocin 0.02 mg/mg topical ointment (6 sources) RNA Synthetase Inhibitor Antibacterial Start: 06-30-2024 End: 07-16-2024 mupirocin (BACTROBAN) 2 % ointment Apply 0.5 inch with cotton swab (Q-tip) to each nostril in the morning and evening for 5 days prior to and including day of surgery. 22 g 06/30/2024 07/16/2024 Active Start: 10-13-2021 End: 02-12-2022 mupirocin (BACTROBAN) 2 % oi ntment Apply to affected area three times daily. 30 g 0 10/13/2021 02/12/2022 Discontinued (Course of therapy completed) Comment on above: Apply to affected ar ea three times daily. nystatin 100 unt/mg topical powder (20 sources) Polyene Antifungal Start: 10-19-2022 nystatin (NYSTOP) powder Apply 1 application to affected area three times daily. to affected area as needed 60 g 5 10/19/2022 Active Start: 10-19-2022 nystatin (NYST OP) powder [The details of the medication are not available because there are pending changes by a home health clinician.] 60 g 5 10/19/2022 Active Comment on above: Apply 1 application to affected area three times daily. to affected area as needed pantoprazole 20 mg delayed release oral tablet (20 sources) Proton Pump Inhibitor Start: take 1 tablet by mouth every twelve hours as needed pantoprazole DR (PROTONIX) 20 mg tablet Take 1 tablet by mouth two times a day as needed. Patient should start on August 26, 2024. 60 tablet 5 08/26/2024 Active Start: 08-26-2024 take 1 tablet by shalini th every twelve hours as needed pantoprazole DR (PROTONIX) 20 mg tablet Take 1 tablet by mouth two times a day as needed. Patient should start on August 26, 2024. 60 tablet 5 08/26/2024 Active Start: 07-27-2024 End: 08-26-2024 take 1 tablet by mouth once daily in the morning pantoprazole DR (PROTONIX) 40 mg tablet Take 1 tablet by mouth daily at 6 am. 30 tablet 07/27/2024 4:21 PM EST 07/27/2024 08/26/2024 Start: 10-16-2020 End: 10-05-2023 take 1 tablet by mouth twice daily as needed Pantoprazole 20 mg tablet,delayed release (DR/EC) Active 20 mg PO TWICE A DAY as needed for Stomach Upset December 14, 2022 12:00am Comment on above: Take 1 tablet by shalini th twice daily. Take 1 tablet by shalini th twice daily as needed. Take 1 tablet by shalini th two times a day as needed. polyethylene glycol 3350 [id number] mg powder for oral solution (9 sources) Osmotic Laxative Start: End: polyethylene glycol 3350 (MIRALAX) 17 gram/dose powder Take 17 g by mouth once daily as needed for constipation for up to 10 days. Dissolve dose in 4 - 8 ounces of liquid and take as directed. 238 g 07/27/2024 08/06/2024 Active sertraline 25 mg oral tablet (1 source) Serotonin Reuptake Inhibitor Start: 1 take 25 mg by mouth once daily Sertraline Active 25 MG PO DAILY October 16, 2020 3:50am vitamin b12 1 mg extended release oral tablet (12 sources) Vitamin B12 Start: 5 take 1 tablet by mouth once daily Cyanocobalamin 1,000 mcg TbER Take 1 tablet by mouth once daily. 90 tablet 3 10/04/2024 Active zolpidem tartrate 6.25 mg extended release oral tablet (20 sources) gamma-Aminobutyric Acid-ergic Agonist Start: End: 5 take 1 tablet by mouth every 30 days at bedtime as needed zolpidem (AMBIEN CR) 6.25 mg CR tablet Indications: Primary insomnia Take 1 tablet by mouth at bedtime as needed for up to 30 days. 30 tablet 1 01/16/2025 02/15/2025 Active Start: 12-02-2022 End: 11-14-2024 take 1 tablet by mouth at bedtime as needed Zolpidem (AMBIEN CR) 12.5 mg CR tablet Indications: Primary insomnia Take 1 tablet by mouth at bedtime as needed for sedation for up to 90 days. Patient should start on April 27, 2024. 90 tablet 04/27/2024 11/14/2024 Discontinued (Changing Therapy/Dosage Form) Start: 04-27-2022 End: 10-28-2022 take 1 tablet by mouth at bedtime as needed Zolpidem (AMBIEN CR) 12.5 mg CR tablet Indications: Primary insomnia Take 1 tablet by mouth at bedtime as needed for sedation for up to 90 days. 90 tablet 0 07/30/2022 10/28/2022 Active Start: 03-03-2022 End: 04-27-2022 take 1 tablet by mouth every 30 days at bedtime as needed Zolpidem (AMBIEN CR) 12.5 mg CR tablet Indications: Primary insomnia Take 1 tablet by mouth at bedtime as needed for sedation for up to 30 days. 30 tablet 0 03/27/2022 04/27/2022 Discontinued Start: 09-27-2020 End: 04-28-2022 take 1 tablet by mouth at bedtime as needed zolpidem (AMBIEN) 5 mg tablet Indications: Primary insomnia Take 1 tablet by mouth at bedtime as needed for up to 197 days. 30 tablet 3 05/02/2021 10/13/2021 Discontinued Comment on above: Take 1 tablet by shalini th at bedtime as needed for up to 197 days. Take 1 tablet by shalini th at bedtime as needed for sedation for up to 30 days. Take 1 tablet by shalini th at bedtime as needed for sedation for up to 90 days. Completed/Discontinued Medications Medication Drug Class(es) Dates Sig (Normalized) Sig (Original) alendronic acid 70 mg oral tablet (3 sources) Bisphosphonate Start: 04-06-2023 End: 09-03-2023 take 1 tablet by mouth every week alendronate (FOSAMAX) 70 mg tablet Take 1 tablet by mouth one time a week. Take with a full glass of water, on an empty stomach; do NOT lie down for 30minutes. 12 tablet 3 04/06/2023 09/03/2023 Discontinued (Discontinued by Patient) Comment on above: Take 1 tablet by shalini th one time a week. Take with a full glass of water, on an empty stomach; do NOT lie down for 30minutes. atorvastatin 10 mg oral tablet (2 sources) HMG-CoA Reductase Inhibitor Start: 10-16-2020 End: 05-20-2021 take 1 tablet by mouth once daily at bedtime for hyperlipidemia atorvastatin (LIPITOR) 10 mg tablet Take 1 tablet by mouth daily at bedtime. For cholesterol. 30 tablet 5 03/03/2021 05/20/2021 Discontinued benzonatate 200 mg oral capsule (20 sources) Non-narcotic Antitussive Start: 10-19-2022 End: 06-30-2024 take 1 capsule by mouth every eight hours as needed Benzonatate 200 mg capsule Take 1 capsule by mouth three times a day as needed. 45 capsule 1 10/05/2023 06/30/2024 Discontinued Start: 09-22-2021 End: 02-12-2022 take 1 capsule by mouth every eight hours as needed Benzonatate 200 mg capsule Take 1 capsule by mouth three times daily as needed. 45 capsule 1 09/22/2021 02/12/2022 Discontinued (Course of therapy completed) Comment on above: Take 1 capsule by mo ut three times daily as needed. Take 1 capsule by mo ut three times a day as needed. Carboxymethylcellulose (15 sources) End: 08-19-2022 carboxymethylcellulose sodiu m (REFRESH OPHTHALMIC) Use in eyes. 08/19/2022 Discontinued End: 08-19-2022 carboxymethylcellulose sodiu m (REFRESH OPHTHALMIC) Use in eyes. 0 08/19/2022 Discontinued carboxymethylcel lulose sodium (REFRESH OPHTHALMIC) Use in eyes. 0 Active Comment on above: Use in eyes. cefadroxil 500 mg oral capsule (3 sources) Cephalosporin Antibacterial Start: End: take 1 capsule by mouth twice daily cefADROxil (DURICEF) 500 mg capsule Take 1 capsule by mouth two times a day for 10 days. 20 capsule 09/06/2023 09/16/2023 Comment on above: Take 1 capsule by [facility] two times a day for 10 days. cetirizine hydrochloride 10 mg oral tablet (14 sources) Histamine-1 Receptor Antagonist Start: End: take 1 tablet by mouth once daily cetirizine (ZYRTEC) 10 mg tablet Take 1 tablet by mouth once daily. 30 tablet 1 10/04/2023 03/24/2024 Discontinued Comment on above: Take 1 tablet by [facility] once daily. ciprofloxacin 500 mg oral tablet (2 sources) Quinolone Antimicrobial Start: End: take 1 tablet by mouth twice daily ciprofloxacin HCl (CIPRO) 500 mg tablet Take 1 tablet by mouth twice daily. 6 tablet 03/27/2021 09/22/2021 Discontinued (Course of therapy completed) 12 hr dextromethorphan hydrobromide 30 mg / guaiFENesin 600 mg extended release oral tablet (18 sources) Uncompetitive C-wbfxkc-O-aspartate Receptor Antagonist, Sigma-1 Agonist End: take 1 tablet by mouth twice daily dextromethorphan-gua iFENesin (MUCINEX DM) 30-600 mg per tablet Take 1 tablet by mouth two times a day. 03/24/2024 Discontinued Comment on above: Take 1 tablet by shalini two times a day. docusate sodium 100 mg oral capsule (18 sources) Start: 025 End: take 1 capsule by mouth every twelve hours as needed docusate sodium (COLACE) 100 mg capsule Take 1 capsule by mouth two times a day as needed for constipation. 60 capsule 07/27/2024 4:21 PM EST 07/27/2024 08/26/2024 furosemide 20 mg oral tablet (6 sources) Loop Diuretic Start: End: take 1 tablet by mouth once daily furosemide (LASIX) 20 mg tablet Take 1 tablet by mouth once daily for 4 days. 4 tablet 0 08/19/2022 10/19/2022 Discontinued Comment on above: Take 1 tablet by shalini once daily for 4 days. lactobacillus acidophilus 460 mg oral capsule (4 sources) Start: End: take 1 capsule by mouth once daily Lactobacillus acidophilus (FLORAJEN ACIDOPHILUS) 20 billion cell cap Take 1 capsule by mouth once daily. 30 capsule 03/27/2021 02/12/2022 Discontinued (Discontinued by Patient) Comment on above: Take 1 capsule by mo [facility] once daily. 10 ml lidocaine hydrochloride 10 mg/ml injection (2 sources) Antiarrhythmic, Amide Local Anesthetic Start: End: lidocaine (PF) 10 mg/mL (1 %) 5 mL injection (XYLOCAINE) Start: 03-03-2024 End: 03-03-2024 5 mL, Injection - FOR ORTHO USE ONLY, ONCE, 1 dose, Starting on Wed03/03/24 at 1126, Until Wed03/03/24 at 1126 loratadine 10 mg oral tablet (20 sources) Start: 02-12-2022 End: 03-03-2023 take 1 tablet by mouth once daily loratadine (CLARITIN) 10 mg tablet Take 1 tablet by mouth once daily. 30 tablet 11 02/12/2022 03/03/2023 Discontinued Start: 10-16-2020 take 10 mg by mouth once daily Loratadine Active 10 MG PO DAILY October 16, 2020 3:50am Comment on above: Take 1 tablet by shalini once daily. oxyCODONE hydrochloride 5 mg oral tablet (20 sources) Opioid Agonist Start: 07-27-19 25 End: 02-12-20 25 take 1 tablet by mouth every six hours as needed for pain oxyCODONE IR (ROXICODONE) 5 mg immediate release tablet Indications: S/P total knee arthroplasty, right Take 1 tablet by mouth every 6 hours as needed for pain for up to 9 days. 35 tablet 08/07/2024 08/14/2024 Discontinued phenazopyridine hydrochloride 200 mg oral tablet (2 sources) Start: 03-27-20 21 End: 09-23-19 22 take 1 tablet by mouth every eight hours as needed phenazopyridine (PYRIDIUM) 200 mg tablet Take 1 tablet by mouth three times daily as needed. 9 tablet 05/20/2021 09/22/2021 Discontinued (Course of therapy completed) Polyethylene Glycols (15 sources) End: 08-19-19 23 POLYETHYLENE GLYCOL 3350 (MIRALAX ORAL) Take 1 Packet by mouth as needed. 08/19/2022 Discontinued End: 08-19-2022 POLYETHYLENE GLYCOL 3350 (DE RALAX ORAL) Take 1 Packet by mouth as needed. 0 08/19/2022 Discontinued POLYETHYLENE GLY COL 3350 (MIRALAX ORAL) Take 1 Packet by mouth as needed. 0 Active Comment on above: Take 1 Packet by shalini as needed. predniSONE 10 mg oral tablet (15 sources) Start: 02-15-2024 End: 03-24-2024 predniSONE (DELTASONE) 10 mg tablet Take 4 daily for three days, then 3 daily for three days, then 2 daily for three days, then one daily for three days. 30 tablet 02/15/2024 03/24/2024 Discontinued Start: 11-09-2023 End: 11-18-2023 predniSONE (DELTASONE) 10 mg tablet Take 4 tabs daily for 3 days, then 2 tabs daily for 3 days, then 1 tab daily for 3 days with food. 21 tablet 0 11/09/2023 11/18/2023 Active Start: 09-06-2023 End: 09-15-2023 predniSONE (DELTASONE) 10 mg tablet Take 4 tabs daily for 3 days, then 2 tabs daily for 3 days, then 1 tab daily for 3 days with food. 21 tablet 09/06/2023 09/15/2023 Start: 10-19-2022 End: 10-28-2022 predniSONE (DELTASONE) 10 mg tablet Take 4 tabs daily for 3 days, then 2 tabs daily for 3 days, then 1 tab daily for 3 days with food. 21 tablet 0 10/19/2022 10/28/2022 Active Start: 09-22-2021 End: 02-12-2022 take 2 tablets by mouth once daily predniSONE (DELTASONE) 20 mg tablet 2 tabs a day by mouth for the next 5 days 10 tablet 0 09/22/2021 02/12/2022 Discontinued (Course of therapy completed) Comment on above: 2 tabs a day by mout h for the next 5 days Take 4 tabs daily fo r 3 days, then 2 tabs daily for 3 days, then 1 tab daily for 3 days with food. QUEtiapine 25 mg oral tablet (12 sources) Atypical Antipsychotic Start: 2 End: 3 take 1 tablet by mouth twice daily QUEtiapine (SEROQUEL) 25 mg tablet Take 1 tablet by mouth twice daily. 30 tablet 5 02/12/2022 08/19/2022 Discontinued Comment on above: Take 1 tablet by shalini th twice daily. regadenoson 0.4 mg injection (LEXISCAN) (2 sources) Start: End: regadenoson 0.4 mg injection (LEXISCAN) Start: 07-07-2024 End: 07-07-2024 0.4 mg, INTRAVENOUS, ONCE, 1 dose, On Wed07/07/24 at 1400, Give 0.4 mg (5 mL) over ~10 seconds, followed immediately by a 5 mL saline flush. Wait 10-20 seconds, then administer the radionuclide myocardial perfusion imaging agent. sucralfate 1000 mg oral tablet (5 sources) Aluminum Complex Start: 10-16-2020 End: 02-12-2022 take 1 tablet by mouth three times daily sucralfate (CARAFATE) 1 gram tablet Take 1 g by mouth three times daily. 10/16/2020 02/12/2022 Discontinued (Course of therapy completed) Comment on above: Take 1 g by mouth th ree times daily. 1 ml triamcinolone acetonide 40 mg/ml injection (2 sources) Corticosteroid Start: 03-03-2024 End: 03-03-2024 triamcinolone acetonide 80 mg injection (KeNALog 40) Start: 03-03-2024 End: 03-03-2024 80 mg, Injection - FOR ORTHO USE ONLY, ONCE, 1 dose, Starting on Wed03/03/24 at 1126, Until Wed03/03/24 at 1126 VITAFUSION WOMEN GUMMY (19 sources) End: 03-24-2024 VITAFUSION WOMEN GUMMY as di rected. 03/24/2024 Discontinued VITAFUSION WOMEN GUMMY as directed. Active VITAFUSION WOMEN GUMMY as directed. 0 Active Comment on above: as directed. Problems Active Problems Problem Classification Problem Date Documented Da te Episodic/Chronic Acquired foot deformities (2 sources) Acquired left hallux valgus; Translations: [Hallux valgus (acquired), left foot] Chronic Allergic reactions (1 source) Allergic disposition; Translations: [Allergy status to unspecified drugs, medicaments and biological substances status] 02-15-2024 Episodic Anxiety disorders (20 sources) Mixed anxiety and depressive disorder; Translations: [Anxiety disorder, unspecified] Onset: 1 09-27-2020 Chronic Asthma (20 sources) Uncomplicated mild persistent asthma; Translations: [Mild persistent asthma, uncomplicated] Onset: 7 Chronic Chronic obstructive pulmonary disease and bronchiectasis (5 sources) Acute exacerbation of chronic obstructive airways disease; Translations: [Chronic obstructive pulmonary disease with (acute) exacerbation] Onset: 4 Chronic Chronic obstructive pulmonary disease and bronchiectasis (3 sources) Bronchitis; Translations: [Bronchitis, not specified as acute or chronic] 09-06-2023 Episodic Conduction disorders (20 sources) Left bundle branch block; Translations: [Left bundle-branch block, unspecified] Onset: 4 07-03-2024 Chronic Disorders of lipid metabolism (20 sources) Mixed hyperlipidemia; Translations: [Mixed hyperlipidemia] Onset: 0 05-20-2021 Chronic Diverticulosis and diverticulitis (20 sources) Diverticulosis of large intestine; Translations: [Diverticulosis of large intestine without perforation or abscess without bleeding] 07-22-2016 Chronic Esophageal disorders (20 sources) Gastro-esophageal reflux disease with esophagitis; Translations: [Gastroesophageal reflux disease with esophagitis] Onset: 6 03-02-2017 Chronic Esophageal disorders (1 source) Esophageal disorders; Translations: [Gastroesophageal reflux disease with esophagitis without hemorrhage] Onset: 7 Gastroduodenal ulcer (except hemorrhage) (20 sources) Peptic ulcer; Translations: [Peptic ulcer, site unspecified, unspecified as acute or chronic, without hemorrhage or perforation] Onset: 6 10-31-2020 Chronic Gastrointestinal hemorrhage (4 sources) Upper gastrointestinal bleeding; Translations: [Gastrointestinal hemorrhage, unspecified] 10-16-2020 Episodic Genitourinary symptoms and ill-defined conditions (20 sources) Incontinence; Translations: [Mixed incontinence] Onset: 1 06-27-2021 Chronic Miscellaneous mental health disorders (20 sources) Primary insomnia; Translations: [Primary insomnia] Onset: 7 Chronic Mood disorders (4 sources) Depressive disorder; Translations: [Depression] 10-16-2020 Chronic Nutritional deficiencies (20 sources) Vitamin D deficiency; Translations: [Vitamin D deficiency, unspecified] Onset: 4 09-03-2023 Chronic Occlusion or stenosis of precerebral arteries (20 sources) Bilateral stenosis of carotid arteries; Translations: [Occlusion and stenosis of bilateral carotid arteries] Onset: 9 02-15-2019 Chronic Osteoarthritis (20 sources) Arthritis of left knee; Translations: [Unilateral primary osteoarthritis, left knee] Onset: 9 08-25-2019 Chronic Osteoporosis (20 sources) Senile osteoporosis; Translations: [Age-related osteoporosis without current pathological fracture] Onset: 6 01-19-2018 Chronic Other connective tissue disease (20 sources) History of total knee arthroplasty; Translations: [Presence of right artificial knee joint] Onset: 5 07-27-2024 Chronic Other connective tissue disease (2 sources) Presence of right artificial knee joint; Translations: [S/P total knee arthroplasty, right] Onset: 5 Chronic Other connective tissue disease (1 source) Weakness of right leg; Translations: [Other symptoms and signs involving the musculoskeletal system] Episodic Other connective tissue disease (3 sources) Pain in left foot; Translations: [Pain in left foot] Episodic Other connective tissue disease (1 source) Plantar fascial fibromatosis; Translations: [Plantar fascial fibromatosis] Episodic Other connective tissue disease (3 sources) Foreign body; Translations: [Residual foreign body in soft tissue] Episodic Other gastrointestinal disorders (1 source) History of upper gastrointestinal tract hemorrhage; Translations: [Personal history of other diseases of the digestive system] 02-12-2025 Episodic Other hereditary and degenerative nervous system conditions (20 sources) Essential tremor; Translations: [Essential tremor] Onset: 8 01-19-2018 Chronic Other lower respiratory disease (3 sources) Cough; Translations: [Subacute cough] Episodic Other lower respiratory disease (1 source) Chronic cough; Translations: [Chronic cough] 04-06-2023 Episodic Other nervous system disorders (2 sources) Other chronic pain; Translations: [Chronic pain of right knee] Onset: 2 Chronic Other nervous system disorders (1 source) Acute postoperative pain; Translations: [Other acute postprocedural pain] 12-18-2022 Episodic Other non-traumatic joint disorders (4 sources) Chronic ankle pain; Translations: [Pain in left ankle and joints of left foot] 01-22-2025 Episodic Other non-traumatic joint disorders (1 source) Swelling of ankle joint; Translations: [Effusion, left ankle] 01-22-2025 Episodic Other non-traumatic joint disorders (1 source) Pain in left ankle and joints of left foot; Translations: [Chronic pain of left ankle] Onset: 5 Episodic Other non-traumatic joint disorders (1 source) Effusion, left ankle; Translations: [Swelling of ankle joint, left] Onset: 5 Episodic Other nutritional; endocrine; and metabolic disorders (20 sources) Obese class I; Translations: [Obesity, unspecified] Onset: 9 08-25-2019 Chronic Other nutritional; endocrine; and metabolic disorders (1 source) Weight gain; Translations: [Abnormal weight gain] Episodic Other skin disorders (1 source) Skin tag; Translations: [Other hypertrophic disorders of the skin] 01-28-2024 Episodic Other upper respiratory disease (20 sources) Allergic rhinitis; Translations: [Allergic rhinitis, unspecified] 11-01-2019 Chronic Other upper respiratory infections (1 source) Chronic sinusitis; Translations: [Chronic sinusitis, unspecified] 04-06-2023 Chronic Other upper respiratory infections (2 sources) Acute upper respiratory infection; Translations: [Acute upper respiratory infection, unspecified] 09-03-2023 Episodic Phlebitis; thrombophlebitis and thromboembolism (1 source) Acute deep vein thrombosis of lower limb; Translations: [Acute embolism and thrombosis of unspecified deep veins of unspecified lower extremity] 02-12-2025 Episodic Pneumonia (except that caused by tuberculosis or sexually transmitted disease) (1 source) Bacterial pneumonia; Translations: [Unspecified bacterial pneumonia] Episodic Residual codes; unclassified (8 sources) Active living will ; Translations: [Personal history of other specified conditions] Onset: 2 Episodic Residual codes; unclassified (2 sources) Postmenopausal state; Translations: [Asymptomatic menopausal state] 03-03-2023 Episodic Residual codes; unclassified (1 source) Pain; Translations: [Pain, unspecified] 03-03-2024 Episodic Sprains and strains (2 sources) Strain of back muscle; Translations: [Strain of muscle, fascia and tendon of lower back, initial encounter] 10-16-2024 Episodic Superficial injury; contusion (1 source) Superficial foreign body, left foot, initial encounter; Translations: [Superficial foreign body, left foot, initial encounter] Onset: 3 Episodic Unclassified (20 sources) Active living will ; Translations: [Living will on file] Onset: 2 02-12-2022 Unclassified (20 sources) Total Knee Replacement Correspondence Analyst Onset: 4 06-14-2024 Past or Other Problems Problem Classification Problem Date Documented Da te Episodic/Chronic Abdominal hernia (20 sources) Diaphragmatic hernia; Translations: [Diaphragmatic hernia without obstruction or gangrene] Onset: 7 Resolved: 9 07-22-2017 Episodic Abdominal pain (20 sources) Left sided abdominal pain; Translations: [Unspecified abdominal pain] Onset: 9 Resolved: 9 11-01-2019 Episodic Administrative/social admission (20 sources) Advance directive discussed with patient; Translations: [Other specified counseling] Onset: 2 Episodic Cardiac dysrhythmias (20 sources) Palpitations; Translations: [Palpitations] Onset: 0 08-25-2019 Episodic Diabetes mellitus without complication (20 sources) Hyperglycemia; Translations: [Impaired fasting glucose] Onset: 6 12-10-2015 Episodic Nutritional deficiencies (14 sources) Cobalamin deficiency; Translations: [Deficiency of other specified B group vitamins] Onset: 5 09-25-2024 Episodic Other aftercare (1 source) Drug therapy finding; Translations: [Other senior living (current) drug therapy] Onset: 0 08-25-2019 Episodic Other aftercare (20 sources) Patient encounter status; Translations: [Other senior living (current) drug therapy] Onset: 6 Resolved: 9 08-25-2019 Episodic Other aftercare (1 source) Other keno terminal operator (current) drug therapy; Translations: [Medication management] Onset: 0 Episodic Other connective tissue disease (20 sources) Swelling of left lower limb; Translations: [Other specified soft tissue disorders] Onset: 0 02-27-2020 Episodic Other diseases of veins and lymphatics (20 sources) Iliac vein compression syndrome; Translations: [Compression of vein] Onset: 1 09-27-2020 Episodic Other diseases of veins and lymphatics (1 source) Compression of vein; Translations: [May-Thurner syndrome] Onset: 1 Episodic Other disorders of stomach and duodenum (20 sources) Delayed gastric emptying; Translations: [Functional dyspepsia] Onset: 2 12-06-2015 Episodic Other disorders of stomach and duodenum (20 sources) Gastric diverticulum; Translations: [Gastric diverticulum] Onset: 6 07-22-2016 Episodic Other gastrointestinal disorders (20 sources) Constipation; Translations: [Constipation, unspecified] Resolved: 2 12-22-2011 Episodic Other gastrointestinal disorders (20 sources) Diarrhea; Translations: [Diarrhea, unspecified] Onset: 0 Resolved: 2 12-22-2011 Episodic Other lower respiratory disease (20 sources) Persistent cough; Translations: [Persistent cough] Onset: 4 11-08-2023 Episodic Other non-traumatic joint disorders (20 sources) Pain in left knee; Translations: [Pain in joint, lower leg] Onset: 7 Resolved: 9 09-27-2020 Episodic Other non-traumatic joint disorders (20 sources) Ankle pain; Translations: [Pain in right ankle and joints of right foot] Onset: 1 09-27-2020 Episodic Other non-traumatic joint disorders (20 sources) Hip pain; Translations: [Pain in left hip] Onset: 8 Resolved: 9 06-15-2019 Episodic Other non-traumatic joint disorders (4 sources) Pain in right knee; Translations: [Pain in joint, lower leg] Onset: 2 02-23-2024 Episodic Other nutritional; endocrine; and metabolic disorders (20 sources) Obesity; Translations: [Obesity, unspecified] Onset: 6 Resolved: 8 07-22-2017 Chronic Other screening for suspected conditions (not mental disorders or infectious disease) (5 sources) Electrocardiogram abnormal; Translations: [Abnormal electrocardiogram [ECG] [EKG]] Onset: 4 06-30-2024 Episodic Residual codes; unclassified (20 sources) FH: Thyroid disorder; Translations: [Family history of other endocrine, nutritional and metabolic diseases] Onset: 1 09-27-2020 Episodic Residual codes; unclassified (20 sources) Memory impairment; Translations: [Other amnesia] Onset: 1 09-27-2020 Episodic Residual codes; unclassified (20 sources) Passive smoker; Translations: [Contact with and (suspected) exposure to environmental tobacco smoke (acute) (chronic)] Onset: 4 11-08-2023 Episodic Residual codes; unclassified (1 source) Pain, unspecified; Translations: [Pain] Onset: 4 Episodic Spondylosis; intervertebral disc disorders; other back problems (20 sources) Low back pain; Translations: [Low back pain] Onset: 6 Resolved: 9 01-19-2018 Episodic Results Test Name Value Interpretation Reference Range Facility [facility] 02-05-2025 [facility] Telephone (FAMPWS) -- NORA CAMARILLO ([id number]) 1950 F Date Time Provider Department 02/05/25 JAYLIN COMBS During your visit today, we recorded the following information about you: Kia Andujar LPN 02/05/2025 2:33 PM Signed Patient called. Verified name and date of . Patient states she received a call from orthopaedics but states she is uncertain why they'd be calling her. No encounter placed. She doesn't have appointment with orthopaedics until July 2025 but did have appointment with Jaylin Combs PA-C recently who referred her to podiatry clinic. Referral noted. Patient does not want to see podiatry at [facility] but sees a provider in the community. CLARE Hubbard Amy M, MA 02/05/2025 2:38 PM Signed Orthopedic office did not call patient. Jaylin Cmobs PA-C 02/05/2025 2:43 PM Signed I have listed that we were referring to the [facility] [place]. I'm assuming that the consult automatically gets sent internally as well, which is probably why she got the call. It wasn't directed by myself. CE Samuel Sherill A, LPN 02/05/2025 2:51 PM Signed Pt notified of same. Qasim Patterson LPN Allergies As of Date: 02/05/2025 Noted Allergy Reaction MORPHINE 03/03/2017 8 - GI Upset Comments: nausea NSAIDS (NON-STEROIDAL ANTI-INFLAM*10/31/2020 14 - Other: See Comments Comments: Hx of stomach ulcers ADVAIR DISKUS (FLUTICASONE PROPIO*05/14/2011 5 - Intolerance Comments: Hurts throat BENTYL (DICYCLOMINE HCL) 10/03/2009 16 - Unknown CELEBREX (CELECOXIB) 02/08/2006 8 - GI Upset DICYCLOMINE 09/10/2011 14 - Other: See Comments Comments: Dry mouth, blurred vision, loss of taste ESTRACE (ESTRADIOL) 03/17/2005 9 - Itching EVISTA (RALOXIFENE HCL) 03/17/2005 9 - Itching MACROBID (NITROFURANTOIN MONOHYD/*07/22/2017 14 - Other: See Comments Comments: Hair loss MEDROL (METHYLPREDNISOLONE) 09/27/2014 14 - Other: See Comments Comments: Dry mouth, sore throat. MOBIC (MELOXICAM) 06/05/2019 5 - Intolerance OXYCONTIN (OXYCODONE HCL) 07/19/2015 9 - Itching PENICILLINS 03/17/2005 9 - Itching PROZAC (FLUOXETINE HCL) 03/17/2005 16 - Unknown SULFAMETHIZOLE 11/17/2019 8 - GI Upset SYMAX-SL (HYOSCYAMINE SULFATE) 10/03/2009 16 - Unknown Date Reviewed: 01/22/2025 Reviewed by: Qasim Patterson LPN - Fully Assessed Reason for Visit: Appointment [186] FYI-No Action Needed [265] Prescriptions as of 02/05/2025 - cholecalciferol, Vitamin D3, (VITAMIN D3) 1,250 mcg (50,000 unit) cap capsule Take 1 capsule by mouth every other week. - montelukast (SINGULAIR) 10 mg tablet Take 1 tablet by mouth daily at bedtime. - zolpidem (AMBIEN CR) 6.25 mg CR tablet Take 1 tablet by mouth at bedtime as needed for up to 30 days. - cyclobenzaprine (FLEXERIL) 5 mg tablet Take 1 tablet by mouth three times a day. - Cyanocobalamin 1,000 mcg TbER Take 1 tablet by mouth once daily. - acetaminophen (TYLENOL) 500 mg tablet Take 2 tablets by mouth every 8 hours as needed for pain. - ascorbic acid, vitamin C, (VITAMIN C) 500 mg tablet Take 1 tablet by mouth two times a day with meals for 27 doses. - aspirin, enteric coated (ASPIRIN, ENTERIC COATED) 81 mg EC tablet Take 1 tablet by mouth two times a day for 28 days. - albuterol HFA (VENTOLIN HFA) 90 mcg/actuation inhaler Inhale 2 Puffs as instructed every 4 hours as needed. - nystatin (NYSTOP) powder Apply 1 application to affected area three times daily. to affected area as needed Problem List As Of Date 02/05/2025 Noted Resolved Unspecified constipation [K59.00] 12/22/2011 Diverticulosis of large intestine [K57.30] Senile osteoporosis [M81.0] 01/05/2006 Diaphragmatic hernia without mention of obstruc*01/24/2007 07/22/2017 Routine general medical examination at a [facility]*11/20/2009 12/22/2011 Class: Chronic Routine gynecological examination [Z01.419] 11/20/2009 12/22/2011 Class: Chronic Diarrhea [R19.7] 11/20/2009 12/22/2011 Mixed hyperlipidemia [E78.2] 11/20/2009 Delayed gastric emptying [K30] 09/18/2011 Non morbid obesity [E66.9] 08/20/2015 07/22/2017 Encounter for gynecological examination without*12/06/2015 06/15/2019 Encounter for screening for cardiovascular diso*12/06/2015 06/15/2019 Colon cancer screening [Z12.11] 12/06/2015 06/15/2019 Elevated fasting blood sugar [R73.01] 12/10/2015 Chronic bilateral low back pain [M54.50, G89.29]01/01/2016 06/15/2019 Gastric diverticulum [K31.4] 03/13/2016 PUD (peptic ulcer disease) [K27.9] 03/13/2016 Gastroesophageal reflux disease with esophagiti*03/13/2016 Mild persistent asthma without complication [J4*07/22/2016 Hiatal hernia [K44.9] 07/22/2016 06/15/2019 Primary insomnia [F51.01] 07/22/2016 Chronic pain of left knee [M25.562, G89.29] 07/22/2016 06/15/2019 Medicare annual wellness visit, subsequent [Z00*01/21/2017 Well adult (more content not included)... Normal [facility] 01-22-2025 CNOV Office Visit (FAMPWS ) -- NORA CAMARILLO ([id number]) 1950 F Date Time Provider Department 01/22/25 12:00 PM JAYLIN COMBS During your visit today, we recorded the following information about you: Temperature Pulse Respiration Blood pressure 98.3 degrees 69/minute 18/minute 110/70 Weight 82.1 kg Jaylin Combs PA-C 01/22/2025 1:00 PM Signed Chief Complaint Patient presents with: left foot pain: and edema x 6-7 months HPI Nora Camarillo is a 74 year old female who presents here today for Above Complaints.. Left Ankle Pain and Swelling: - Notes left ankle swelling for past 6-7 months - Swelling now extends to the heel, causing discomfort when wearing shoes. - Pain exacerbated by certain positions during sleep; reports a sensation of the ankle coming out of place and needing to stand to alleviate discomfort. - Describes a popping sensation with certain movements in bed, causing pain to radiate up the leg. - Denies any known trauma or injury to the ankle. - Has a boot at home from a previous foot procedure 2 years ago, where a wire was removed by [facility] G[facility]. Past medical history, appointments, medications, allergies reviewed. Previous Medical History PAST MEDICAL HISTORY Diagnosis Date Abnormal computed tomography angiography (CTA) 01/03/2019 right upper ICA with abnormality, consult to vascular 12/2018 Acute meniscal tear of left knee 04/13/2019 Advance directive discussed with patient 02/12/2022 Discussed 02/2022 Allergies Anxiety and depression 09/27/2020 Arthritis of left knee 02/19/2019 Bilateral carotid artery stenosis 01/03/2019 US: 12/2018 20-40% tatyana Chronic bilateral low back pain 01/01/2016 Seen [facility] Chronic pain of both ankles 09/27/2020 Chronic pain of left knee 09/27/2020 Chronic pain of right knee 09/30/2021 [facility]es [facility] Current use of proton pump inhibitor 08/25/2019 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 rojas Hiatal hernia 07/22/2016 Left hip pain 09/14/[address] [place] [facility] [address] Xander Martinez Left lateral abdominal pain 02/15/2019 Mid quadrant, chronic and paroxysmal. 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 Linn Mixed hyperlipidemia 11/20/2009 Mixed incontinence 06/27/[address] Queen Obesity, Class I, BMI 30-34.9 06/15/2019 Palpitations 08/25/2019 Primary insomnia 07/22/2016 PUD (peptic ulcer disease) 03/13/2016 Hx of ulcer 2018 and two again in 10/2020. No NSAID's (aspirin held 10/2020) Second hand smoke exposure 11/08/2023 Senile osteoporosis 01/05/2006 Clinical Team Manager following (Dr. Dobson) Simple cyst of breast 11/2009 Left retroareolar Unspecified constipation Previous Surgical History PAST SURGICAL HISTORY Procedure Laterality Date APPENDECTOMY ARTHROSCOPY KNEE DIAGNOSTIC W/WO SYNOVIAL BX SPX Right 2021 meniscus repair, cementing - Dr. Cunha ARTHRS KNE SURG W/MENISCECTOMY MED/LAT W/SHVG Left 06/23/2019 Left knee medial and lateral menisectomies, medial and PF chondroplasties BREAST BIOPSY Left 2002 CARDIAC CATH 2004 COLONOSCOPY FLX DX W/COLLJ SPEC WHEN PFRMD 05/22/2019 Colonoscopy COLPOPEXY VAGINAL EXTRAPERITONEAL APPROACH 02/2013 repair of rectal and vaginal prolapse COLSC FLX W/RMVL OF TUMOR POLYP LESION SNARE TQ 01/28/2016 repeat 10 yrs EGD 10/16/2020 2 cratered gastric ulcers; Dr. Guillermo EGD TRANSORAL BIOPSY SINGLE/MULTIPLE 01/24/2007 EGD TRANSORAL BIOPSY SINGLE/MULTIPLE 01/28/2016 ESOPHAGEAL MOTILITY STUDY W/INTERPANDRPT 04/29/2016 ESOPHAGOGASTRODUODENOSCOPY TRANSORAL DIAGNOSTIC 05/22/2005 EGD H-pylori negative ESOPHAGOGASTRODUODENOSCOPY TRANSORAL DIAGNOSTIC 03/02/2016 ESOPHAGOGASTRODUODENOSCOPY TRANSORAL DIAGNOSTIC 05/22/2019 EGD ESOPHAGOGASTRODUODENOSCOPY TRANSORAL DIAGNOSTIC 12/10/2020 healed ulcers; fundoplication intact; Dr. Guillermo GASTROESOPHAG REFLX TEST W/TELEMTRY PH ELTRD 03/02/2016 48 hour ph probe HERNIA REPAIR HX 1971 AND 1972 herniorrhaphy, umbilical, right inguinal . PAST SURGICAL HISTORY OF 01/2005 heart catheterization PAST SURGICAL HISTORY OF 11/03/2004 left breast bx PAST SURGICAL HISTORY OF D AND C, multiple PAST SURGICAL HISTORY OF Right 1991 carpal tunnel release PAST SURGICAL HISTORY OF Right arm surgery, ulnar nerve decom (more content not included)... [facility] XR ANKLE 3V AP/LAT/OBL LTon 01-22-2025 XR ANKLE 3V AP/LAT/OBL LT * * *Final Report* * * DATE OF EXAM: Jan 22 2025 1:10PM [id number] - XR ANKLE 3V AP/LAT/OBL LT / PROCEDURE REASON: multiple diagnoses * * * * Physician Interpretation * * * * EXAMINATION / TECHNIQUE: XR ANKLE 3V AP/LAT/OBL LT HISTORY: Pt. states Chronic Lt ankle pain throughout. No injury. Chronic pain of left ankle Chronic pain of left ankle COMPARISON: 04/11/2021. RESULT: No acute fracture or osseous malalignment is identified. The joint spaces are preserved. There is a plantar calcaneal enthesophyte. IMPRESSION: No acute bony abnormality. Buttermaker: NANCY Transcribe Date/Time: Jan 28 2025 8:56P Dictated by : JERMAINE BETANCOURT MD This examination was interpreted and the report reviewed and electronically signed by: JERMAINE BETANCOURT MD on Jan 28 2025 8:57PM EST [id number] [facility] CNPNon 10-25-2024 CNPN Telephone (FAMPWS) -- NORA CAMARILLO ([id number]) 1950 F Date Time Provider Department 10/25/24 JAYLIN COMBS During your visit today, we recorded the following information about you: Patrizia Donaldson, RN 10/25/2024 2:37 PM Signed Pt saw Jaylin Combs yesterday and Jaylin said she was going to call in a steroid for pt's back pain. Per note: 11. Acute left-sided low back pain without sciatica (M54.50) - Prescribed Medrol Dose Pack to reduce inflammation. Does not appear that script was sent in. Will msg provider. Pt requests [facility] pharmacy in [place]. Jaylin Combs PA-C 10/25/2024 2:40 PM Signed The following approved medication requests have been transmitted electronically. Requested Prescriptions Signed Prescriptions Disp Refills methylPREDNISolone (MEDROL, JOLEEN,) 4 mg Dose-Pack 21 tablet 0 Sig: Follow dosing instructions, take with food. Authorizing Provider: JAYLIN COMBS PA-C Allergies As of Date: 10/25/2024 Noted Allergy Reaction MORPHINE 03/03/2017 8 - GI Upset Comments: nausea NSAIDS (NON-STEROIDAL ANTI-INFLAM*10/31/2020 14 - Other: See Comments Comments: Hx of stomach ulcers ADVAIR DISKUS (FLUTICASONE PROPIO*05/14/2011 5 - Intolerance Comments: Hurts throat BENTYL (DICYCLOMINE HCL) 10/03/2009 16 - Unknown CELEBREX (CELECOXIB) 02/08/2006 8 - GI Upset DICYCLOMINE 09/10/2011 14 - Other: See Comments Comments: Dry mouth, blurred vision, loss of taste ESTRACE (ESTRADIOL) 03/17/2005 9 - Itching EVISTA (RALOXIFENE HCL) 03/17/2005 9 - Itching MACROBID (NITROFURANTOIN MONOHYD/*07/22/2017 14 - Other: See Comments Comments: Hair loss MEDROL (METHYLPREDNISOLONE) 09/27/2014 14 - Other: See Comments Comments: Dry mouth, sore throat. MOBIC (MELOXICAM) 06/05/2019 5 - Intolerance OXYCONTIN (OXYCODONE HCL) 07/19/2015 9 - Itching PENICILLINS 03/17/2005 9 - Itching PROZAC (FLUOXETINE HCL) 03/17/2005 16 - Unknown SULFAMETHIZOLE 11/17/2019 8 - GI Upset SYMAX-SL (HYOSCYAMINE SULFATE) 10/03/2009 16 - Unknown Date Reviewed: 10/24/2024 Reviewed by: Qasim Patterson LPN - Fully Assessed Reason for Visit: Prescription [Other] Cmt: Medrol pack Order(s):methylPREDNISolon e (MEDROL, JOLEEN,) 4 mg Dose-PackFollow dosing instructions, take with food.Disp: 21 tabletRfl: 0 Prescriptions as of 10/26/2024 - methylPREDNISolone (MEDROL, JOLEEN,) 4 mg Dose-Pack Follow dosing instructions, take with food. - cholecalciferol, Vitamin D3, (VITAMIN D3) 1,250 mcg (50,000 unit) cap capsule Take 1 capsule by mouth every other week. - cyclobenzaprine (FLEXERIL) 5 mg tablet Take 1 tablet by mouth three times a day. - Cyanocobalamin 1,000 mcg TbER Take 1 tablet by mouth once daily. - acetaminophen (TYLENOL) 500 mg tablet Take 2 tablets by mouth every 8 hours as needed for pain. - ascorbic acid, vitamin C, (VITAMIN C) 500 mg tablet Take 1 tablet by mouth two times a day with meals for 27 doses. - aspirin, enteric coated (ASPIRIN, ENTERIC COATED) 81 mg EC tablet Take 1 tablet by mouth two times a day for 28 days. - albuterol HFA (VENTOLIN HFA) 90 mcg/actuation inhaler Inhale 2 Puffs as instructed every 4 hours as needed. - Zolpidem (AMBIEN CR) 12.5 mg CR tablet Take 1 tablet by mouth at bedtime as needed for sedation for up to 90 days. Patient should start on April 27, 2024. - montelukast (SINGULAIR) 10 mg tablet Take 1 tablet by mouth daily at bedtime. - nystatin (NYSTOP) powder Apply 1 application to affected area three times daily. to affected area as needed Problem List As Of Date 10/25/2024 Noted Resolved Unspecified constipation [K59.00] 12/22/2011 Diverticulosis of large intestine [K57.30] Senile osteoporosis [M81.0] 01/05/2006 Diaphragmatic hernia without mention of obstruc*01/24/2007 07/22/2017 Routine general medical examination at [facility]*11/20/2009 12/22/2011 Class: Chronic Routine gynecological examination [Z01.419] 11/20/2009 12/22/2011 Class: Chronic Diarrhea [R19.7] 11/20/2009 12/22/2011 Mixed hyperlipidemia [E78.2] 11/20/2009 Delayed gastric emptying [K30] 09/18/2011 Non morbid obesity [E66.9] 08/20/2015 07/22/2017 Encounter for gynecological examination without*12/06/2015 06/15/2019 Encounter for screening for cardiovascular diso*12/06/2015 06/15/2019 Colon cancer screening [Z12.11] 12/06/2015 06/15/2019 Elevated fasting blood sugar [R73.01] 12/10/2015 Chronic bilateral low back pain [M54.50, G89.29]01/01/2016 06/15/2019 Gastric diverticulum [K31.4] 03/13/2016 PUD (peptic ulcer disease) [K27.9] 03/13/2016 Gastroesophageal reflux disease with esophagiti*03/13/2016 Mild persistent asthma without complication [J4*07/22/2016 Hiatal hernia [K44.9] 07/22/2016 06/15/2019 Primary insomnia [F51.01] 07/22/2016 Chronic pain of left knee [M25.562, G89.29] 07/22/2016 06/15/2019 Medicare annual wellness visit, subsequent [Z00*01/21/2017 (more content not included)... Normal [facility] CNOVon 10-24-2024 CNOV Office Visit (FAMPWS ) -- NORA CAMARILLO ([id number]) 1950 F Date Time Provider Department 10/24/24 1:40 PM JAYLIN COMBS FAMPWS During your visit today, we recorded the following information about you: Temperature Pulse Respiration Blood pressure 97.5 degrees 71/minute 16/minute 128/78 Weight 81.6 kg Jaylin Combs PA-C 10/24/2024 2:39 PM Signed Chief Complaint Patient presents with: 6 Month Exam HPI Nora Camarillo is a 74 year old female who presents here today for Chronic Medical Conditions.. Patient with hx of hyperlipidemia, asthma, insomnia, tremor, PUD, arthritis, vit d def, may thurner dz and those as below. Back Pain: - Onset approximately two weeks ago after shopping; severe pain when attempting to exit the car. - Pain initially resolved with Salonpas and Aleve but recurred last Wednesday. - Describes pain as so bad that it affects walking, particularly in the morning. - Pain localized to the left lower side of the back. - Concerned it might be related to kidney issues; Dr. Dhillon prescribed a muscle relaxant with minimal relief. - Wonders if pain is due to changes in gait post-knee replacement. - Considering visiting a chiropractor for relief. Knee Replacement: - Underwent knee replacement on 07/26. - Completed two weeks of home physical therapy followed by clinic-based therapy. - Reports significant improvement in mobility but still experiences some pain. - Followed up with Dr. Dhillon, who noted she is ahead of schedule in recovery. no other concerns today Past medical history, appointments, medications, allergies reviewed. Previous Medical History PAST MEDICAL HISTORY Diagnosis Date Abnormal computed tomography angiography (CTA) 01/03/2019 right upper ICA with abnormality, consult to vascular 12/2018 Acute meniscal tear of left knee 04/13/2019 Advance directive discussed with patient 02/12/2022 Discussed 02/2022 Allergies Anxiety and depression 09/27/2020 Arthritis of left knee 02/19/2019 Bilateral carotid artery stenosis 01/03/2019 US: 12/2018 20-40% tatyana Chronic bilateral low back pain 01/01/2016 Seen [facility] Chronic pain of both ankles 09/27/2020 Chronic pain of left knee 09/27/2020 Chronic pain of right knee 09/30/2021 Sees [facility] Current use of proton pump inhibitor 08/25/2019 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 rojas Hiatal hernia 07/22/2016 Left hip pain 09/14/[address] [place] [facility] Xander Martinez Left lateral abdominal pain 02/15/2019 Mid quadrant, chronic and paroxysmal. 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 Linn Mixed hyperlipidemia 11/20/2009 Mixed incontinence 06/27/[address] Queen Obesity, Class I, BMI 30-34.9 06/15/2019 Palpitations 08/25/2019 Primary insomnia 07/22/2016 PUD (peptic ulcer disease) 03/13/2016 Hx of ulcer 2018 and two again in 10/2020. No NSAID's (aspirin held 10/2020) Second hand smoke exposure 11/08/2023 Senile osteoporosis 01/05/2006 Clinical Team Manager following (Dr. Dobson) Simple cyst of breast 11/2009 Left retroareolar Unspecified constipation Previous Surgical History PAST SURGICAL HISTORY Procedure Laterality Date APPENDECTOMY ARTHROSCOPY KNEE DIAGNOSTIC W/WO SYNOVIAL BX SPX Right 2021 meniscus repair, cementing - Dr. Cunha ARTHRS KNE SURG W/MENISCECTOMY MED/LAT W/SHVG Left 06/23/2019 Left knee medial and lateral menisectomies, medial and PF chondroplasties BREAST BIOPSY Left 2002 CARDIAC CATH 2004 COLONOSCOPY FLX DX W/COLLJ SPEC WHEN PFRMD 05/22/2019 Colonoscopy COLPOPEXY VAGINAL EXTRAPERITONEAL APPROACH 02/2013 repair of rectal and vaginal prolapse COLSC FLX W/RMVL OF TUMOR POLYP LESION SNARE TQ 01/28/2016 repeat 10 yrs EGD 10/16/2020 2 cratered gastric ulcers; Dr. Guillermo EGD TRANSORAL BIOPSY SINGLE/MULTIPLE 01/24/2007 EGD TRANSORAL BIOPSY SINGLE/MULTIPLE 01/28/2016 ESOPHAGEAL MOTILITY STUDY W/INTERPANDRPT 04/29/2016 ESOPHAGOGASTRODUODENOSCOPY TRANSORAL DIAGNOSTIC 05/22/2005 EGD H-pylori negative ESOPHAGOGASTRODUODENOSCOPY TRANSORAL DIAGNOSTIC 03/02/2016 ESOPHAGOGASTRODUODENOSCOPY TRANSORAL DIAGNOSTIC 05/22/2019 EGD ESOPHAGOGASTRODUODENOSCOPY TRANSORAL DIAGNOSTIC 12/10/2020 healed ulcers; fundoplication intact; Dr. Guillermo GASTROESOPHAG REFLX TEST W/TELEMTRY PH ELTRD 08 (more content not included)... Normal [facility] CNOVon 10-16-2024 CNOV Office Visit (ORTHWS ) -- NORA CAMARILLO ([id number]) 1950 F Date Time Provider Department 10/16/24 12:45 PM BRYSON DHILLON During your visit today, we recorded the following information about you: Bryson Dhillon MD 10/16/2024 6:30 PM Signed Bryson Dhillon MD Department of Orthopaedics Orthopaedics [facility] [address] [facility] [address] Dept: [phone] Dept October 16, 2024 CHIEF COMPLAINT: Post Op of the Right Knee (11 weeks 5 days post op Robotic assisted Right TKA). HPI Patient here for post op Robotic assisted Right TKA. Patient states she has finished physical therapy but is continuing home exercises. Patient uses a cane when outside the house. Patient states on Wednesday she was shopping and when she was getting out of the car she had pain in her back on the lower left side. She does have an appointment next week with her PCP. Taking Aleve only when needed for the pain. ASSESSMENT: Z96.651 S/P total knee arthroplasty, right (primary encounter diagnosis) Plan: SHe is 3 months and doing very well. She is getting better each week. Seemed to have strained her left flank. I'll give her a small muscle relaxer. Exam: Tender in the left flank near the ribs. Right knee looks great. Motion is 3-120 Imaging: Deferred today. Supporting Information Below: Medications: Current Outpatient Medications Medication Sig Cyanocobalamin 1,000 mcg TbER Take 1 tablet by mouth once daily. cholecalciferol, Vitamin D3, (VITAMIN D3) 1,250 mcg (50,000 unit) cap capsule Take 1 capsule by mouth one time a week. acetaminophen (TYLENOL) 500 mg tablet Take 2 tablets by mouth every 8 hours as needed for pain. albuterol HFA (VENTOLIN HFA) 90 mcg/actuation inhaler Inhale 2 Puffs as instructed every 4 hours as needed. Zolpidem (AMBIEN CR) 12.5 mg CR tablet Take 1 tablet by mouth at bedtime as needed for sedation for up to 90 days. Patient should start on April 27, 2024. montelukast (SINGULAIR) 10 mg tablet Take 1 tablet by mouth daily at bedtime. nystatin (NYSTOP) powder Apply 1 application to affected area three times daily. to affected area as needed ascorbic acid, vitamin C, (VITAMIN C) 500 mg tablet Take 1 tablet by mouth two times a day with meals for 27 doses. aspirin, enteric coated (ASPIRIN, ENTERIC COATED) 81 mg EC tablet Take 1 tablet by mouth two times a day for 28 days. No current facility-administered medications for this visit. Allergies: Morphine, Nsaids (Non-Steroidal Anti-Inflammatory Drug), Advair Diskus [Fluticasone Propion-Salmeterol], Bentyl [Dicyclomine Hcl], Celebrex [Celecoxib], Dicyclomine, Estrace [Estradiol], Evista [Raloxifene Hcl], Macrobid [Nitrofurantoin Monohyd/M-Cryst], Medrol [Methylprednisolone], Mobic [Meloxicam], Oxycontin [Oxycodone Hcl], Penicillins, Prozac [Fluoxetine Hcl], Sulfamethizole, and Symax-Sl [Hyoscyamine Sulfate] The patient consented to the use of ambient AI software for draft documentation of the visit consistent with [facility]?s Notice of Privacy Practices. Bryson Dhillon MD Referring Provider: BRYSON DHILLON [[id number]] Allergies As of Date: 10/16/2024 Noted Allergy Reaction MORPHINE 03/03/2017 8 - GI Upset Comments: nausea NSAIDS (NON-STEROIDAL ANTI-INFLAM*10/31/2020 14 - Other: See Comments Comments: Hx of stomach ulcers ADVAIR DISKUS (FLUTICASONE PROPIO*05/14/2011 5 - Intolerance Comments: Hurts throat BENTYL (DICYCLOMINE HCL) 10/03/2009 16 - Unknown CELEBREX (CELECOXIB) 02/08/2006 8 - GI Upset DICYCLOMINE 09/10/2011 14 - Other: See Comments Comments: Dry mouth, blurred vision, loss of taste ESTRACE (ESTRADIOL) 03/17/2005 9 - Itching EVISTA (RALOXIFENE HCL) 03/17/2005 9 - Itching MACROBID (NITROFURANTOIN MONOHYD/*07/22/2017 14 - Other: See Comments Comments: Hair loss MEDROL (METHYLPREDNISOLONE) 09/27/2014 14 - Other: See Comments Comments: Dry mouth, sore throat. MOBIC (MELOXICAM) 06/05/2019 5 - Intolerance OXYCONTIN (OXYCODONE HCL) 07/19/2015 9 - Itching PENICILLINS 03/17/2005 9 - Itching PROZAC (FLUOXETINE HCL) 03/17/2005 16 - Unknown SULFAMETHIZOLE 11/17/2019 8 - GI Upset SYMAX-SL (HYOSCYAMINE SULFATE) 10/03/2009 16 - Unknown Date Reviewed: 10/16/2024 Reviewed by: Nora Escalante MA - Fully Assessed Reason for Visit: Post Op [174] Cmt: 11 weeks 5 days post op Robotic assisted Right TKA Primary Visit Diagnosis:S/P total knee arthroplasty, right [Z96.651] Other Visit Diagnosis:Back strain, initial encounter [S39.012A] Order(s):cyclobenzaprine (FLEXERIL) 5 mg tabletTake 1 tablet by mouth three times a day.Disp: 21 tabletRfl: 0 Prescriptions as of 10/16/2024 - cyclobenzaprine (FLEXERIL) 5 mg tablet Take 1 tablet by mouth three times a day. - Cyanocobalamin 1,000 mcg TbER Take 1 tablet by mouth once daily. - cholecalciferol, Vitamin D3, (VITAMIN D3) 1,250 mcg (50,000 unit) cap (more content not included)... [facility] SCREENINGon 10-03-2024 KALLI SCREENING * * *Final Report* * * DATE OF EXAM: Oct 03 2024 2:56PM [id number] - KALLI SCREENING / PROCEDURE REASON: multiple diagnoses * * * * Physician Interpretation * * * * RESULT: [facility] [address] [place] [address] #[id number] - [facility] SCREENING HISTORY: 74 year-old patient seen for screening. Patient is asymptomatic in both breasts. Patient states no personal history of breast cancer. The patient has a family history of breast and ovarian cancer. COMPARISON STUDIES: The present examination has been compared to prior imaging studies dated 06/15/2019 (mammogram), 06/27/2020 (mammogram), 06/30/2021 (mammogram), 07/14/2022 (mammogram) and 07/16/2023 (mammogram). MAMMOGRAM TECHNIQUE: The study was acquired using full field digital technology and interpreted from soft copy. MAMMOGRAM FINDINGS: There are scattered areas of fibroglandular density. No suspicious masses, calcifications or other abnormalities are seen in either breast. There are no significant interval changes. IMPRESSION: There is no mammographic evidence of malignancy in either breast. Routine screening mammogram is recommended. Annual mammogram will be due in 1 year. BI-RADS Category 1: Negative RISK: Based on the Tyrer-Cuzick (TC) risk assessment model, this patient has a 6.4% lifetime risk of developing breast cancer, meaning they are at average risk for developing breast cancer. However, this is only an estimate based on available history provided on the patient's questionnaire. We encourage all patients to talk with their providers about these results, further recommendations for managing breast health, and appropriate supplemental screening options if the patient has dense breast tissue. Interpreting Radiologist: Lesley Vinson M.D. Electronically signed on: 10/04/2024 Buttermaker: TRENA Transcribe Date/Time: Oct 03 2024 2:45P Dictated by: LESLEY VINSON MD This examination was interpreted and the report reviewed and electronically signed by: LESLEY VINSON MD on Oct 04 2024 8:05AM EST [id number] [facility] CNPMariah 09-18-2024 HAIM Telephone (ORTHWS) -- NORA CAMARILLO ([id number]) 1950 F Date Time Provider Department 09/18/24 BRYOSN DHILLON During your visit today, we recorded the following information about you: Tamanna Harrington RN 09/18/2024 8:56 AM Signed Patient calling in asking when she can start driving again? s/p right TKR on 07/26/24 DANIEL Park Amy M, MA 09/18/2024 11:34 AM Signed Per Rebekah, as long as the patient is not taking any narcotics for pain relief and is comfortable going between brake and gas. Patient was in the office for PT and stopped by the desk. Message was relayed to her. She verbalized understanding. She states that her leg still feels weak and swells. The therapist mentioned to her that she should wait to drive for about another month until she gets some strength built back up. I advised the patient to use her best judgement. She verbalized understanding. Allergies As of Date: 09/18/2024 Noted Allergy Reaction MORPHINE 03/03/2017 8 - GI Upset Comments: nausea NSAIDS (NON-STEROIDAL ANTI-INFLAM*10/31/2020 14 - Other: See Comments Comments: Hx of stomach ulcers ADVAIR DISKUS (FLUTICASONE PROPIO*05/14/2011 5 - Intolerance Comments: Hurts throat BENTYL (DICYCLOMINE HCL) 10/03/2009 16 - Unknown CELEBREX (CELECOXIB) 02/08/2006 8 - GI Upset DICYCLOMINE 09/10/2011 14 - Other: See Comments Comments: Dry mouth, blurred vision, loss of taste ESTRACE (ESTRADIOL) 03/17/2005 9 - Itching EVISTA (RALOXIFENE HCL) 03/17/2005 9 - Itching MACROBID (NITROFURANTOIN MONOHYD/*07/22/2017 14 - Other: See Comments Comments: Hair loss MEDROL (METHYLPREDNISOLONE) 09/27/2014 14 - Other: See Comments Comments: Dry mouth, sore throat. MOBIC (MELOXICAM) 06/05/2019 5 - Intolerance OXYCONTIN (OXYCODONE HCL) 07/19/2015 9 - Itching PENICILLINS 03/17/2005 9 - Itching PROZAC (FLUOXETINE HCL) 03/17/2005 16 - Unknown SULFAMETHIZOLE 11/17/2019 8 - GI Upset SYMAX-SL (HYOSCYAMINE SULFATE) 10/03/2009 16 - Unknown Date Reviewed: 09/04/2024 Reviewed by: Bryson Dhillon MD - Fully Assessed Reason for Visit: Patient Question [5698] Prescriptions as of 09/18/2024 - cholecalciferol, Vitamin D3, (VITAMIN D3) 1,250 mcg (50,000 unit) cap capsule Take 1 capsule by mouth one time a week. - acetaminophen (TYLENOL) 500 mg tablet Take 2 tablets by mouth every 8 hours as needed for pain. - ascorbic acid, vitamin C, (VITAMIN C) 500 mg tablet Take 1 tablet by mouth two times a day with meals for 27 doses. - aspirin, enteric coated (ASPIRIN, ENTERIC COATED) 81 mg EC tablet Take 1 tablet by mouth two times a day for 28 days. - albuterol HFA (VENTOLIN HFA) 90 mcg/actuation inhaler Inhale 2 Puffs as instructed every 4 hours as needed. - Zolpidem (AMBIEN CR) 12.5 mg CR tablet Take 1 tablet by mouth at bedtime as needed for sedation for up to 90 days. Patient should start on April 27, 2024. - montelukast (SINGULAIR) 10 mg tablet Take 1 tablet by mouth daily at bedtime. - nystatin (NYSTOP) powder Apply 1 application to affected area three times daily. to affected area as needed Problem List As Of Date 09/18/2024 Noted Resolved Unspecified constipation [K59.00] 12/22/2011 Diverticulosis of large intestine [K57.30] Senile osteoporosis [M81.0] 01/05/2006 Diaphragmatic hernia without mention of obstruc*01/24/2007 07/22/2017 Routine general medical examination at a [facility]*11/20/2009 12/22/2011 Class: Chronic Routine gynecological examination [Z01.419] 11/20/2009 12/22/2011 Class: Chronic Diarrhea [R19.7] 11/20/2009 12/22/2011 Mixed hyperlipidemia [E78.2] 11/20/2009 Delayed gastric emptying [K30] 09/18/2011 Non morbid obesity [E66.9] 08/20/2015 07/22/2017 Encounter for gynecological examination without*12/06/2015 06/15/2019 Encounter for screening for cardiovascular diso*12/06/2015 06/15/2019 Colon cancer screening [Z12.11] 12/06/2015 06/15/2019 Elevated fasting blood sugar [R73.01] 12/10/2015 Chronic bilateral low back pain [M54.50, G89.29]01/01/2016 06/15/2019 Gastric diverticulum [K31.4] 03/13/2016 PUD (peptic ulcer disease) [K27.9] 03/13/2016 Gastroesophageal reflux disease with esophagiti*03/13/2016 Mild persistent asthma without complication [J4*07/22/2016 Hiatal hernia [K44.9] 07/22/2016 06/15/2019 Primary insomnia [F51.01] 07/22/2016 Chronic pain of left knee [M25.562, G89.29] 07/22/2016 06/15/2019 Medicare annual wellness visit, subsequent [Z00*01/21/2017 Well adult exam [Z00.00] 01/21/2017 06/15/2019 Left hip pain [M25.552] 09/14/2017 06/15/2019 Low back pain [M54.50] 09/14/2017 Essential tremor [G25.0] 01/19/2018 Bilateral carotid artery stenosis [I65.23] 01/03/2019 Left lateral abdominal pain [R10.9] 02/15/2019 06/15/2019 Arthritis of left knee [M17.12] 02/19/2019 Obesity, Class I, BMI 30-34.9 [E66.811] 06/15/2019 Palpitations [R00.2] 08/25/2019 Medication management [Z79. (more content not included)... Normal [facility] CNTHERAPYon 09-18-2024 CNTHERAPY OT/PT/Speech Visit ( PTWS) -- NORA CAMARILLO ([id number]) 1950 F Date Time Provider Department 09/18/24 10:45 AM XANDER WU PTWS Date Time Provider Department [place] 09/18/2024 10:45 AM [id number], COREY PTWS Matti Catie Reason for Visit: PT Discharge [752] Primary Visit Diagnosis:S/P total knee arthroplasty, left [Z96.652] Allergies As of Date: 09/18/2024 Noted Allergy Reaction MORPHINE 03/03/2017 8 - GI Upset Comments: nausea NSAIDS (NON-STEROIDAL ANTI-INFLAM*10/31/2020 14 - Other: See Comments Comments: Hx of stomach ulcers ADVAIR DISKUS (FLUTICASONE PROPIO*05/14/2011 5 - Intolerance Comments: Hurts throat BENTYL (DICYCLOMINE HCL) 10/03/2009 16 - Unknown CELEBREX (CELECOXIB) 02/08/2006 8 - GI Upset DICYCLOMINE 09/10/2011 14 - Other: See Comments Comments: Dry mouth, blurred vision, loss of taste ESTRACE (ESTRADIOL) 03/17/2005 9 - Itching EVISTA (RALOXIFENE HCL) 03/17/2005 9 - Itching MACROBID (NITROFURANTOIN MONOHYD/*07/22/2017 14 - Other: See Comments Comments: Hair loss MEDROL (METHYLPREDNISOLONE) 09/27/2014 14 - Other: See Comments Comments: Dry mouth, sore throat. MOBIC (MELOXICAM) 06/05/2019 5 - Intolerance OXYCONTIN (OXYCODONE HCL) 07/19/2015 9 - Itching PENICILLINS 03/17/2005 9 - Itching PROZAC (FLUOXETINE HCL) 03/17/2005 16 - Unknown SULFAMETHIZOLE 11/17/2019 8 - GI Upset SYMAX-SL (HYOSCYAMINE SULFATE) 10/03/2009 16 - Unknown Date Reviewed: 09/04/2024 Reviewed by: Bryson Dhillon MD - Fully Assessed Prescriptions as of 09/18/2024 - cholecalciferol, Vitamin D3, (VITAMIN D3) 1,250 mcg (50,000 unit) cap capsule Take 1 capsule by mouth one time a week. - acetaminophen (TYLENOL) 500 mg tablet Take 2 tablets by mouth every 8 hours as needed for pain. - ascorbic acid, vitamin C, (VITAMIN C) 500 mg tablet Take 1 tablet by mouth two times a day with meals for 27 doses. - aspirin, enteric coated (ASPIRIN, ENTERIC COATED) 81 mg EC tablet Take 1 tablet by mouth two times a day for 28 days. - albuterol HFA (VENTOLIN HFA) 90 mcg/actuation inhaler Inhale 2 Puffs as instructed every 4 hours as needed. - Zolpidem (AMBIEN CR) 12.5 mg CR tablet Take 1 tablet by mouth at bedtime as needed for sedation for up to 90 days. Patient should start on April 27, 2024. - montelukast (SINGULAIR) 10 mg tablet Take 1 tablet by mouth daily at bedtime. - nystatin (NYSTOP) powder Apply 1 application to affected area three times daily. to affected area as needed Normal [facility] 25(OH)D3 SerPl-mCncon 2024 25-hydroxyvitamin D3 [Mass/Vol] 85.0 ng/mL Normal >=30.0 [facility] Comment on above: Order Comment: Vinita fierro Type: BLOOD SPECIMEN Ordering Facility: [facility] Address: [address] [place] [address] Result Comment: Clas sification of 25 [place] Vitamin D status: Deficiency: <= 20.0 ng/ml. Insufficiency: 21.0-29.0 ng/ml. Sufficiency: >= 30.0 ng/ml. Performed By: #### L NAVEED, 2131- #### [facility] CLIA [id number] [address] [place] [address] [place] Basic metabolic 2000 panelon 09-15-2024 Anion gap [Moles/Vol] 11 mmol/L Normal 8-15 [facility] Comment on above: Order Comment: Vinita fierro Type: BLOOD SPECIMEN Ordering Facility: [facility] Address: [address] [place] [address] Performed By: #### L IPNF, 2132-03 #### [facility] CLIA [id number] [address] [place] [address] [place] Calcium [Mass/Vol] 9.3 mg/dL Normal 8.5-10.2 [facility] Comment on above: Order Comment: Speci men Type: BLOOD SPECIMEN Ordering Facility: [facility] Address: [address] [place] [address] Performed By: #### L IPNF, 2132-03 #### [facility] CLIA [id number] [address] [place] [address] [place] Chloride [Moles/Vol] 103 mmol/L Normal 98-107 [facility] Comment on above: Order Comment: Speci men Type: BLOOD SPECIMEN Ordering Facility: [facility] Address: [address] [place] [address] Performed By: #### L IPNF, 2132-03 #### [facility] CLIA [id number] [address] [place] [address] [place] CO2 [Moles/Vol] 24 mmol/L Normal 22-30 [facility] Comment on above: Order Comment: Speci men Type: BLOOD SPECIMEN Ordering Facility: [facility] Address: [address] [place] [address] Performed By: #### L IPNF, 2132-03 #### [facility] CLIA [id number] [address] [place] Creatinine [Mass/Vol] 0.57 mg/dL Low 0.58-0.96 [facility] Comment on above: Order Comment: Speci men Type: BLOOD SPECIMEN Ordering Facility: [facility] Address: [address] [place] [address] Performed By: #### L IPNF, 2132-03 #### [facility] CLIA [id number] [address] [place] Creatinine and Glomerular filtration rate.predicted panel (S/P/Bld) 95 mL/min/1.73m??? Normal >=60 [facility] Comment on above: Order Comment: Speci men Type: BLOOD SPECIMEN Ordering Facility: [facility] Address: [address] [place] [address] Result Comment: Brittani mated Glomerular Filtration Rate (eGFR) is calculated using the 2020 CKD-EPI creatinine equation. This equation utilizes serum creatinine, sex, and age as parameters. The creatinine assay has traceable calibration to isotope dilution-mass spectrometry. Refer to KDIGO guidelines for clinical interpretation. In patients with unstable renal function, e.g. those with acute kidney injury, the eGFR may not accurately reflect actual GFR. Performed By: #### L IPNF, 2132-03 #### [facility] CLIA [id number] [address] [place] [address] [place] Glucose [Mass/Vol] 101 mg/dL High 74-99 [facility] Comment on above: Order Comment: Vinita fierro Type: BLOOD SPECIMEN Ordering Facility: [facility] Address: [address] [place] [address] Result Comment: The [place] Diabetes Association (ADA) provides guidance for cutoff values for fasting glucose and random glucose. The ADA defines fasting as no caloric intake for at least 8 hours. Fasting plasma glucose results between 100 to 125 mg/dL indicate increased risk for diabetes (prediabetes). Fasting plasma glucose results greater than or equal to 126 mg/dL meet the criteria for diagnosis of diabetes. In the absence of unequivocal hyperglycemia, results should be confirmed by repeat testing. In a patient with classic symptoms of hyperglycemia or hyperglycemic crisis, random plasma glucose results greater than or equal to 200 mg/dL meet the criteria for diagnosis of diabetes. Reference: Standards of Medical Care in Diabetes 2016, Canadian Diabetes Association. Diabetes Care. 2016.39(Suppl 1). Performed By: #### L IPNF, 2132-03 #### [facility] CLIA [id number] [address] [place] [address] [place] Potassium [Moles/Vol] 4.3 mmol/L Normal 3.7-5.1 [facility] Comment on above: Order Comment: Vinita fierro Type: BLOOD SPECIMEN Ordering Facility: [facility] Address: [address] [place] [address] Performed By: #### L IPNF, 2132-03 #### [facility] CLIA [id number] [address] [place] Sodium [Moles/Vol] 138 mmol/L Normal 136-144 [facility] Comment on above: Order Comment: Vinita fierro Type: BLOOD SPECIMEN Ordering Facility: [facility] Address: [address] [place] [address] Performed By: #### L IPNF, 2132-03 #### [facility] CLIA [id number] [address] [place] Urea nitrogen [Mass/Vol] 12 mg/dL Normal 7-21 [facility] Comment on above: Order Comment: Vinita fierro Type: BLOOD SPECIMEN Ordering Facility: [facility] Address: [address] [place] [address] Performed By: #### L IPNF, 2132-03 #### [facility] CLIA [id number] [address] OF [facility] CNTHERAPYon 09-15-2024 CNTHERAPY OT/PT/Speech Visit ( PTWS) -- NORA CAMARILLO ([id number]) 1950 F Date Time Provider Department 09/15/24 11:00 AM XANDER WU PTWS Date Time Provider Department [place] 09/15/2024 11:00 AM [id number], COREY PTWS Matti Stewart Reason for Visit: Physical Therapy [503] Primary Visit Diagnosis:S/P total knee arthroplasty, left [Z96.652] Allergies As of Date: 09/15/2024 Noted Allergy Reaction MORPHINE 03/03/2017 8 - GI Upset Comments: nausea NSAIDS (NON-STEROIDAL ANTI-INFLAM*10/31/2020 14 - Other: See Comments Comments: Hx of stomach ulcers ADVAIR DISKUS (FLUTICASONE PROPIO*05/14/2011 5 - Intolerance Comments: Hurts throat BENTYL (DICYCLOMINE HCL) 10/03/2009 16 - Unknown CELEBREX (CELECOXIB) 02/08/2006 8 - GI Upset DICYCLOMINE 09/10/2011 14 - Other: See Comments Comments: Dry mouth, blurred vision, loss of taste ESTRACE (ESTRADIOL) 03/17/2005 9 - Itching EVISTA (RALOXIFENE HCL) 03/17/2005 9 - Itching MACROBID (NITROFURANTOIN MONOHYD/*07/22/2017 14 - Other: See Comments Comments: Hair loss MEDROL (METHYLPREDNISOLONE) 09/27/2014 14 - Other: See Comments Comments: Dry mouth, sore throat. MOBIC (MELOXICAM) 06/05/2019 5 - Intolerance OXYCONTIN (OXYCODONE HCL) 07/19/2015 9 - Itching PENICILLINS 03/17/2005 9 - Itching PROZAC (FLUOXETINE HCL) 03/17/2005 16 - Unknown SULFAMETHIZOLE 11/17/2019 8 - GI Upset SYMAX-SL (HYOSCYAMINE SULFATE) 10/03/2009 16 - Unknown Date Reviewed: 09/04/2024 Reviewed by: Bryson Dhillon MD - Fully Assessed Prescriptions as of 09/15/2024 - cholecalciferol, Vitamin D3, (VITAMIN D3) 1,250 mcg (50,000 unit) cap capsule Take 1 capsule by mouth one time a week. - acetaminophen (TYLENOL) 500 mg tablet Take 2 tablets by mouth every 8 hours as needed for pain. - ascorbic acid, vitamin C, (VITAMIN C) 500 mg tablet Take 1 tablet by mouth two times a day with meals for 27 doses. - aspirin, enteric coated (ASPIRIN, ENTERIC COATED) 81 mg EC tablet Take 1 tablet by mouth two times a day for 28 days. - albuterol HFA (VENTOLIN HFA) 90 mcg/actuation inhaler Inhale 2 Puffs as instructed every 4 hours as needed. - Zolpidem (AMBIEN CR) 12.5 mg CR tablet Take 1 tablet by mouth at bedtime as needed for sedation for up to 90 days. Patient should start on April 27, 2024. - montelukast (SINGULAIR) 10 mg tablet Take 1 tablet by mouth daily at bedtime. - nystatin (NYSTOP) powder Apply 1 application to affected area three times daily. to affected area as needed Normal [facility] HbA1c (Bld)on 09-15-2024 Average glucose Estimated from glycated hemoglobin (Bld) [Mass/Vol] 97 mg/dL Normal [facility] Comment on above: Order Comment: Vinita fierro Type: BLOOD SPECIMEN Ordering Facility: [facility] Address: [address] [place] [address] Result Comment: eAG: (Estimated average glucose) is a calculated value from HgbA1c and is assistance representative of the average blood glucose level in the last 2-3 month period. Performed By: #### 5 5454-3 #### [facility] CLIA [id number] [address] [place] [address] [place] HbA1c (Bld) [Mass fraction] 5.0 % Normal 4.3-5.6 [facility] Comment on above: Order Comment: Vinita fierro Type: BLOOD SPECIMEN Ordering Facility: [facility] Address: [address] [place] [address] Result Comment: Amer ican Diabetes Association guidelines indicate that patients with HgbA1c in the range 5.7-6.4% are at increased risk for development of diabetes, and intervention by lifestyle modification may be beneficial. HgbA1c greater or equal to 6.5% is considered diagnostic of diabetes. Performed By: #### 5 5454-3 #### [facility] CLIA [id number] [address] [place] [address] [place] LIPID PANEL, NONFASTINGon Cholesterol [Mass/Vol] 185 mg/dL Normal <200 [facility] Comment on above: Order Comment: Vinita fierro Type: BLOOD SPECIMEN Ordering Facility: [facility] Address: [address] [place] [address] Result Comment: <200 mg/dL, Desirable 200-239 mg/dL, Borderline high >239 mg/dL, High Performed By: #### L IP, 2132-9 #### [facility] CLIA [id number] 1 [place] [address] [place] HDL CHOLESTEROL, NF 69 mg/dL Normal >39 [facility] Comment on above: Order Comment: Vinita fierro Type: BLOOD SPECIMEN Ordering Facility: [facility] Address: [address] [place] [address] Result Comment: 40-5 9 mg/dL, Acceptable >59 mg/dL, High: Negative risk factor for coronary heart disease <40 mg/dL, Low: Positive risk factor for coronary heart disease Performed By: #### L IPNF, 2132-03 #### [facility] CLIA [id number] [address] LDL CHOLESTEROL, NF 93 mg/dL Normal <100 [facility] Comment on above: Order Comment: Vinita fierro Type: BLOOD SPECIMEN Ordering Facility: [facility] Address: [address] [place] [address] Result Comment: <100 mg/dL, Optimal 100-129 mg/dL, Near optimal/above optimal 130-159 mg/dL, Borderline high 160-189 mg/dL, High >189 mg/dL, Very high Secondary prevention optimal LDL Cholesterol levels are recommended to be < 70 mg/dL Performed By: #### L IPNF, 2132-03 #### [facility] CLIA [id number] [address] LDL/HDL RATIO, NF 1.35 mg/dL Normal <2.54 [facility] Comment on above: Order Comment: Vinita fierro Type: BLOOD SPECIMEN Ordering Facility: [facility] Address: [address] [place] [address] Result Comment: James merida: 1. National Cholesterol Education Program ATP III Guideline At-A-Glance Quick Desk Reference: National Heart, Lung, and Blood [place]. National Institutes of Health. 2001: NIH Publication No. 01-3305. 2. An International Atherosclerosis Society position paper: global recommendations for the management of dyslipidemia: executive summary, Atherosclerosis. 2014: 232(2):410-413. Performed By: #### L IPNF, 2132-03 #### [facility] CLIA [id number] [address] OF [facility] NON HDL CHOL, NF 116 mg/dL Normal <130 [facility] Comment on above: Order Comment: Speci men Type: BLOOD SPECIMEN Ordering Facility: [facility] Address: [address] [place] [address] Result Comment: <130 mg/dL, Optimal 130-159 mg/dL, Near optimal/above optimal 160-189 mg/dL, Borderline high 190-219 mg/dL, High >219 mg/dL, Very high Secondary prevention optimal non HDL Cholesterol levels are recommended to be <100 mg/dL Performed By: #### L IPNF, 2132-03 #### [facility] CLIA [id number] [address] T CHOL/HDL RATIO NF 2.68 mg/dL Normal <5.10 [facility] Comment on above: Order Comment: Speci men Type: BLOOD SPECIMEN Ordering Facility: [facility] Address: [address] [place] [address] Performed By: #### L IPNF, 2132-03 #### [facility] CLIA [id number] [address] OF [facility] TRIGLYCERIDES, NF 116 mg/dL Normal <150 [facility] Comment on above: Order Comment: Speci men Type: BLOOD SPECIMEN Ordering Facility: [facility] Address: [address] [place] [address] Result Comment: <150 mg/dL, Normal 150-199 mg/dL, Borderline high 200-499 mg/dL, High >499 mg/dL, Very high Performed By: #### L IPNF, 2132-03 #### [facility] CLIA [id number] [address] [place] VLDL CHOLESTEROL, NF 23 mg/dL Normal <30 [facility] Comment on above: Order Comment: Speci men Type: BLOOD SPECIMEN Ordering Facility: [facility] Address: [address] [place] [address] Performed By: #### L IPNF, 2132-03 #### [facility] CLIA [id number] [address] [place] Magnesium SerPl-mCncon 03-07 -2025 Magnesium [Mass/Vol] 2.1 mg/dL Normal 1.7-2.3 [facility] Comment on above: Order Comment: Speci men Type: BLOOD SPECIMEN Ordering Facility: [facility] Address: [address] [place] [address] Performed By: #### L IPNF, 2132-03 #### [facility] CLIA [id number] [address] [place] Vit B12 SerPl-ncon 025 Cobalamin (Vitamin B12) [Mass/Vol] pg/mL Low 232-1245 [facility] Comment on above: Order Comment: Speci men Type: BLOOD SPECIMEN Ordering Facility: [facility] Address: [address] [place] [address] Performed By: #### L IPNF, 2132-03 #### [facility] CLIA [id number] [address] [id number] 09-12-2024 [id number] HNO ID: [id number] Author: XANDER WU PT Service: ? Author Type: Physical Therapist Type: [id number] Filed: 09/12/2024 10:45 Note Text: [facility] Physical Therapy Plan of Care Certification Patient Name: Nora Camarillo : 1950 [facility] #: [id number] Date: 08/14/2024 To: Rebekah Eduardo PA-C From Therapist: Xander Wu PT RE: Patient Certification/ Recertification Your review, approval and electronic signature are required in order to comply with Payor: MEDICARE / Plan: MEDICARE A AND B / Product Type: Medicare / regulations. The identified Physical Therapy PLAN OF CARE for the patient is as follows: No diagnosis found. PLAN OF CARE: Assessment: Nora Camarillo presents with diagnosis of R TKR on 07/26/24 that interferes with walking, stair negotiation . The patient presents with impairments in ADL's, gait, independence in exercise, overall function, range of motion, and strength. PROMIS? (Patient-Reported Outcomes Measurement Information System) scores were reviewed and identified as a rehabilitation concern. Prognosis for therapy is Good due to: current objective clinical presentation . The patient will benefit from skilled therapy services to meet the goals established for this plan of care as noted below. Goals for Episode of Care: established 08/14/24 [place] in home exercise program. Patient will decrease pain rating by 2 points to meet minimal clinical important difference for numeric pain rating scale. Pt will demo a score of 12 reps without UE support during the 30 sec chair stand test in 3 months or less to demonstrates improved LE functional strength Increase ROM of R knee to 0-120 degrees of flexion for ease of sleeping and stair negotiation Increased strength of RLE to 5/5 for return to PLOF and walking without an AD Normal gait. Reciprocal stair negotiation. Patient Goals: Wants to be able to get around [facility] Time Frame for Goals and Treatment : 11/06/24 Planned Interventions, Frequency, and Duration: Current Frequency: 2x/week Duration: 4 weeks Total Number of Visits Planned: 8 Planned Treatment Interventions: Therapeutic exercise (51372), Manual therapy (06596), Neuromuscular re-education (83977), Therapeutic activities (44346), Self-retirement management (87352), Gait Training (18639), Patient/Family/Caregiver Education PLAN FOR NEXT VISIT: STS, knee flexion stretch on step, knee ext stretch as tolerated Patient demonstrates good understanding of plan of care and treatment. The above goals and plan of care were discussed and agreed upon by patient/family. For further details regarding this patient refer to the Physical Therapy electronically documented visit dated 08/14/2024. Provider Attestation I have reviewed the treatment plan for Nora Camarillo, [facility]# [id number] for the period of 08/14/24 -- 09/18/24, established on 08/14/2024. Signature certifies the need for therapy services. Normal [facility] CNTHERAPYon 09-11-2024 CNTHERAPY OT/PT/Speech Visit ( PTWS) -- NORA CAMARILLO ([id number]) 1950 F Date Time Provider Department 09/11/24 10:45 AM XANDER WU PTWS Date Time Provider Department Center 09/11/2024 10:45 AM [id number], COREY PTWS Matti Catie Reason for Visit: Physical Therapy [503] Primary Visit Diagnosis:S/P total knee arthroplasty, left [Z96.652] Allergies As of Date: 09/11/2024 Noted Allergy Reaction MORPHINE 03/03/2017 8 - GI Upset Comments: nausea NSAIDS (NON-STEROIDAL ANTI-INFLAM*10/31/2020 14 - Other: See Comments Comments: Hx of stomach ulcers ADVAIR DISKUS (FLUTICASONE PROPIO*05/14/2011 5 - Intolerance Comments: Hurts throat BENTYL (DICYCLOMINE HCL) 10/03/2009 16 - Unknown CELEBREX (CELECOXIB) 02/08/2006 8 - GI Upset DICYCLOMINE 09/10/2011 14 - Other: See Comments Comments: Dry mouth, blurred vision, loss of taste ESTRACE (ESTRADIOL) 03/17/2005 9 - Itching EVISTA (RALOXIFENE HCL) 03/17/2005 9 - Itching MACROBID (NITROFURANTOIN MONOHYD/*07/22/2017 14 - Other: See Comments Comments: Hair loss MEDROL (METHYLPREDNISOLONE) 09/27/2014 14 - Other: See Comments Comments: Dry mouth, sore throat. MOBIC (MELOXICAM) 06/05/2019 5 - Intolerance OXYCONTIN (OXYCODONE HCL) 07/19/2015 9 - Itching PENICILLINS 03/17/2005 9 - Itching PROZAC (FLUOXETINE HCL) 03/17/2005 16 - Unknown SULFAMETHIZOLE 11/17/2019 8 - GI Upset SYMAX-SL (HYOSCYAMINE SULFATE) 10/03/2009 16 - Unknown Date Reviewed: 09/04/2024 Reviewed by: Bryson Dhillon MD - Fully Assessed Prescriptions as of 09/11/2024 - cholecalciferol, Vitamin D3, (VITAMIN D3) 1,250 mcg (50,000 unit) cap capsule Take 1 capsule by mouth one time a week. - acetaminophen (TYLENOL) 500 mg tablet Take 2 tablets by mouth every 8 hours as needed for pain. - ascorbic acid, vitamin C, (VITAMIN C) 500 mg tablet Take 1 tablet by mouth two times a day with meals for 27 doses. - aspirin, enteric coated (ASPIRIN, ENTERIC COATED) 81 mg EC tablet Take 1 tablet by mouth two times a day for 28 days. - albuterol HFA (VENTOLIN HFA) 90 mcg/actuation inhaler Inhale 2 Puffs as instructed every 4 hours as needed. - Zolpidem (AMBIEN CR) 12.5 mg CR tablet Take 1 tablet by mouth at bedtime as needed for sedation for up to 90 days. Patient should start on April 27, 2024. - montelukast (SINGULAIR) 10 mg tablet Take 1 tablet by mouth daily at bedtime. - nystatin (NYSTOP) powder Apply 1 application to affected area three times daily. to affected area as needed Normal [facility] CNTHERAPYon 09-08-2024 CNTHERAPY OT/PT/Speech Visit ( PTWS) -- NORA CAMARILLO ([id number]) 1950 F Date Time Provider Department 09/08/24 9:15 AM LISSA LIRA PTCARINA Date Time Provider Department Center 09/08/2024 9:15 AM [id number] LIRA PTCARINA Stewart Reason for Visit: Physical Therapy [503] Primary Visit Diagnosis:S/P total knee arthroplasty, left [Z96.652] Allergies As of Date: 09/08/2024 Noted Allergy Reaction MORPHINE 03/03/2017 8 - GI Upset Comments: nausea NSAIDS (NON-STEROIDAL ANTI-INFLAM*10/31/2020 14 - Other: See Comments Comments: Hx of stomach ulcers ADVAIR DISKUS (FLUTICASONE PROPIO*05/14/2011 5 - Intolerance Comments: Hurts throat BENTYL (DICYCLOMINE HCL) 10/03/2009 16 - Unknown CELEBREX (CELECOXIB) 02/08/2006 8 - GI Upset DICYCLOMINE 09/10/2011 14 - Other: See Comments Comments: Dry mouth, blurred vision, loss of taste ESTRACE (ESTRADIOL) 03/17/2005 9 - Itching EVISTA (RALOXIFENE HCL) 03/17/2005 9 - Itching MACROBID (NITROFURANTOIN MONOHYD/*07/22/2017 14 - Other: See Comments Comments: Hair loss MEDROL (METHYLPREDNISOLONE) 09/27/2014 14 - Other: See Comments Comments: Dry mouth, sore throat. MOBIC (MELOXICAM) 06/05/2019 5 - Intolerance OXYCONTIN (OXYCODONE HCL) 07/19/2015 9 - Itching PENICILLINS 03/17/2005 9 - Itching PROZAC (FLUOXETINE HCL) 03/17/2005 16 - Unknown SULFAMETHIZOLE 11/17/2019 8 - GI Upset SYMAX-SL (HYOSCYAMINE SULFATE) 10/03/2009 16 - Unknown Date Reviewed: 09/04/2024 Reviewed by: Bryson Dhillon MD - Fully Assessed Prescriptions as of 09/08/2024 - cholecalciferol, Vitamin D3, (VITAMIN D3) 1,250 mcg (50,000 unit) cap capsule Take 1 capsule by mouth one time a week. - acetaminophen (TYLENOL) 500 mg tablet Take 2 tablets by mouth every 8 hours as needed for pain. - ascorbic acid, vitamin C, (VITAMIN C) 500 mg tablet Take 1 tablet by mouth two times a day with meals for 27 doses. - aspirin, enteric coated (ASPIRIN, ENTERIC COATED) 81 mg EC tablet Take 1 tablet by mouth two times a day for 28 days. - albuterol HFA (VENTOLIN HFA) 90 mcg/actuation inhaler Inhale 2 Puffs as instructed every 4 hours as needed. - Zolpidem (AMBIEN CR) 12.5 mg CR tablet Take 1 tablet by mouth at bedtime as needed for sedation for up to 90 days. Patient should start on April 27, 2024. - montelukast (SINGULAIR) 10 mg tablet Take 1 tablet by mouth daily at bedtime. - nystatin (NYSTOP) powder Apply 1 application to affected area three times daily. to affected area as needed Normal [facility] CNOVon 09-04-2024 CNOV Office Visit (ORTHWS ) -- NORA CAMARILLO ([id number]) 1950 F Date Time Provider Department 09/04/24 9:45 AM BRYSON DHILLON During your visit today, we recorded the following information about you: Bryson Dhillon MD 09/04/2024 12:29 PM Signed Bryson Dhillon MD Department of Orthopaedics Orthopaedics [address] [facility] [address] Dept: [phone] Dept September 04, 2024 CHIEF COMPLAINT: Established Patient and Post Op of the Right Knee. HPI Patient is 5 weeks 5 days post op robotic assisted right TKA. Patient thought she would be further along than what she is. Still having occasional pain. ASSESSMENT: Z96.651 S/P total knee arthroplasty, right (primary encounter diagnosis) SUMMARY/PLAN: Coming along very nicely. Will see her back in 6 weeks. Exam: Incision healed nicely. Motion is lacking just a few degrees of terminal extension and she has about 110 degrees of flexion. Supporting Information Below: Medications: Current Outpatient Medications Medication Sig acetaminophen (TYLENOL) 500 mg tablet Take 2 tablets by mouth every 8 hours as needed for pain. cholecalciferol, Vitamin D3, (VITAMIN D3) 1,250 mcg (50,000 unit) cap capsule Take 1 capsule by mouth one time a week. albuterol HFA (VENTOLIN HFA) 90 mcg/actuation inhaler Inhale 2 Puffs as instructed every 4 hours as needed. Zolpidem (AMBIEN CR) 12.5 mg CR tablet Take 1 tablet by mouth at bedtime as needed for sedation for up to 90 days. Patient should start on April 27, 2024. montelukast (SINGULAIR) 10 mg tablet Take 1 tablet by mouth daily at bedtime. ascorbic acid, vitamin C, (VITAMIN C) 500 mg tablet Take 1 tablet by mouth two times a day with meals for 27 doses. aspirin, enteric coated (ASPIRIN, ENTERIC COATED) 81 mg EC tablet Take 1 tablet by mouth two times a day for 28 days. nystatin (NYSTOP) powder Apply 1 application to affected area three times daily. to affected area as needed (Patient taking differently: Apply 1 application to affected area three times a day. to affected area as needed- for rah on thighs) No current facility-administered medications for this visit. Allergies: Morphine, Nsaids (Non-Steroidal Anti-Inflammatory Drug), Advair Diskus [Fluticasone Propion-Salmeterol], Bentyl [Dicyclomine Hcl], Celebrex [Celecoxib], Dicyclomine, Estrace [Estradiol], Evista [Raloxifene Hcl], Macrobid [Nitrofurantoin Monohyd/M-Cryst], Medrol [Methylprednisolone], Mobic [Meloxicam], Oxycontin [Oxycodone Hcl], Penicillins, Prozac [Fluoxetine Hcl], Sulfamethizole, and Symax-Sl [Hyoscyamine Sulfate] Bryson Dhillon MD Referring Provider: BRYSON DHILLON [[id number]] Allergies As of Date: 09/04/2024 Noted Allergy Reaction MORPHINE 03/03/2017 8 - GI Upset Comments: nausea NSAIDS (NON-STEROIDAL ANTI-INFLAM*10/31/2020 14 - Other: See Comments Comments: Hx of stomach ulcers ADVAIR DISKUS (FLUTICASONE PROPIO*05/14/2011 5 - Intolerance Comments: Hurts throat BENTYL (DICYCLOMINE HCL) 10/03/2009 16 - Unknown CELEBREX (CELECOXIB) 02/08/2006 8 - GI Upset DICYCLOMINE 09/10/2011 14 - Other: See Comments Comments: Dry mouth, blurred vision, loss of taste ESTRACE (ESTRADIOL) 03/17/2005 9 - Itching EVISTA (RALOXIFENE HCL) 03/17/2005 9 - Itching MACROBID (NITROFURANTOIN MONOHYD/*07/22/2017 14 - Other: See Comments Comments: Hair loss MEDROL (METHYLPREDNISOLONE) 09/27/2014 14 - Other: See Comments Comments: Dry mouth, sore throat. MOBIC (MELOXICAM) 06/05/2019 5 - Intolerance OXYCONTIN (OXYCODONE HCL) 07/19/2015 9 - Itching PENICILLINS 03/17/2005 9 - Itching PROZAC (FLUOXETINE HCL) 03/17/2005 16 - Unknown SULFAMETHIZOLE 11/17/2019 8 - GI Upset SYMAX-SL (HYOSCYAMINE SULFATE) 10/03/2009 16 - Unknown Date Reviewed: 09/04/2024 Reviewed by: Bryson Dhillon MD - Fully Assessed Reason for Visit: Established Patient [175] Post Op [174] Primary Visit Diagnosis:S/P total knee arthroplasty, right [Z96.651] Prescriptions as of 09/04/2024 - acetaminophen (TYLENOL) 500 mg tablet Take 2 tablets by mouth every 8 hours as needed for pain. - ascorbic acid, vitamin C, (VITAMIN C) 500 mg tablet Take 1 tablet by mouth two times a day with meals for 27 doses. - aspirin, enteric coated (ASPIRIN, ENTERIC COATED) 81 mg EC tablet Take 1 tablet by mouth two times a day for 28 days. - cholecalciferol, Vitamin D3, (VITAMIN D3) 1,250 mcg (50,000 unit) cap capsule Take 1 capsule by mouth one time a week. - albuterol HFA (VENTOLIN HFA) 90 mcg/actuation inhaler Inhale 2 Puffs as instructed every 4 hours as needed. - Zolpidem (AMBIEN CR) 12.5 mg CR tablet Take 1 tablet by mouth at bedtime as needed for sedation for up to 90 days. Patient should start on April 27, 2024. - montelukast (SINGULAIR) 10 mg tablet Take 1 tablet by mouth daily at bedtime. - nystatin (NYSTOP) powder Apply 1 application to (more content not included)... Normal [facility] CNTHERAPYon 09-04-2024 CNTHERAPY OT/PT/Speech Visit ( PTWS) -- NORA CAMARILLO ([id number]) 1950 F Date Time Provider Department 09/04/24 10:45 AM XANDER WU PTWS Date Time Provider Department Center 09/04/2024 10:45 AM [id number], COREY PTWS Matti Stewart Reason for Visit: Physical Therapy [503] Primary Visit Diagnosis:S/P total knee arthroplasty, left [Z96.652] Allergies As of Date: 09/04/2024 Noted Allergy Reaction MORPHINE 03/03/2017 8 - GI Upset Comments: nausea NSAIDS (NON-STEROIDAL ANTI-INFLAM*10/31/2020 14 - Other: See Comments Comments: Hx of stomach ulcers ADVAIR DISKUS (FLUTICASONE PROPIO*05/14/2011 5 - Intolerance Comments: Hurts throat BENTYL (DICYCLOMINE HCL) 10/03/2009 16 - Unknown CELEBREX (CELECOXIB) 02/08/2006 8 - GI Upset DICYCLOMINE 09/10/2011 14 - Other: See Comments Comments: Dry mouth, blurred vision, loss of taste ESTRACE (ESTRADIOL) 03/17/2005 9 - Itching EVISTA (RALOXIFENE HCL) 03/17/2005 9 - Itching MACROBID (NITROFURANTOIN MONOHYD/*07/22/2017 14 - Other: See Comments Comments: Hair loss MEDROL (METHYLPREDNISOLONE) 09/27/2014 14 - Other: See Comments Comments: Dry mouth, sore throat. MOBIC (MELOXICAM) 06/05/2019 5 - Intolerance OXYCONTIN (OXYCODONE HCL) 07/19/2015 9 - Itching PENICILLINS 03/17/2005 9 - Itching PROZAC (FLUOXETINE HCL) 03/17/2005 16 - Unknown SULFAMETHIZOLE 11/17/2019 8 - GI Upset SYMAX-SL (HYOSCYAMINE SULFATE) 10/03/2009 16 - Unknown Date Reviewed: 09/04/2024 Reviewed by: Haritha Pascual MA - Fully Assessed Prescriptions as of 09/04/2024 - acetaminophen (TYLENOL) 500 mg tablet Take 2 tablets by mouth every 8 hours as needed for pain. - ascorbic acid, vitamin C, (VITAMIN C) 500 mg tablet Take 1 tablet by mouth two times a day with meals for 27 doses. - aspirin, enteric coated (ASPIRIN, ENTERIC COATED) 81 mg EC tablet Take 1 tablet by mouth two times a day for 28 days. - cholecalciferol, Vitamin D3, (VITAMIN D3) 1,250 mcg (50,000 unit) cap capsule Take 1 capsule by mouth one time a week. - albuterol HFA (VENTOLIN HFA) 90 mcg/actuation inhaler Inhale 2 Puffs as instructed every 4 hours as needed. - Zolpidem (AMBIEN CR) 12.5 mg CR tablet Take 1 tablet by mouth at bedtime as needed for sedation for up to 90 days. Patient should start on April 27, 2024. - montelukast (SINGULAIR) 10 mg tablet Take 1 tablet by mouth daily at bedtime. - nystatin (NYSTOP) powder Apply 1 application to affected area three times daily. to affected area as needed Normal [facility] CNTHERAPYon 08-28-2024 CNTHERAPY OT/PT/Speech Visit ( PTWS) -- NORA CAMARILLO ([id number]) 1950 F Date Time Provider Department 08/28/24 3:30 PM LISSA LIRA PTWS Date Time Provider Department Center 08/28/2024 3:30 PM [id number] LIRA PTWS Matti Stewart Reason for Visit: Physical Therapy [503] Primary Visit Diagnosis:S/P total knee arthroplasty, left [Z96.652] Allergies As of Date: 08/28/2024 Noted Allergy Reaction MORPHINE 03/03/2017 8 - GI Upset Comments: nausea NSAIDS (NON-STEROIDAL ANTI-INFLAM*10/31/2020 14 - Other: See Comments Comments: Hx of stomach ulcers ADVAIR DISKUS (FLUTICASONE PROPIO*05/14/2011 5 - Intolerance Comments: Hurts throat BENTYL (DICYCLOMINE HCL) 10/03/2009 16 - Unknown CELEBREX (CELECOXIB) 02/08/2006 8 - GI Upset DICYCLOMINE 09/10/2011 14 - Other: See Comments Comments: Dry mouth, blurred vision, loss of taste ESTRACE (ESTRADIOL) 03/17/2005 9 - Itching EVISTA (RALOXIFENE HCL) 03/17/2005 9 - Itching MACROBID (NITROFURANTOIN MONOHYD/*07/22/2017 14 - Other: See Comments Comments: Hair loss MEDROL (METHYLPREDNISOLONE) 09/27/2014 14 - Other: See Comments Comments: Dry mouth, sore throat. MOBIC (MELOXICAM) 06/05/2019 5 - Intolerance OXYCONTIN (OXYCODONE HCL) 07/19/2015 9 - Itching PENICILLINS 03/17/2005 9 - Itching PROZAC (FLUOXETINE HCL) 03/17/2005 16 - Unknown SULFAMETHIZOLE 11/17/2019 8 - GI Upset SYMAX-SL (HYOSCYAMINE SULFATE) 10/03/2009 16 - Unknown Date Reviewed: 08/11/2024 Reviewed by: Jazzy Pereira, PT - Fully Assessed Prescriptions as of 08/28/2024 - acetaminophen (TYLENOL) 500 mg tablet Take 2 tablets by mouth every 8 hours as needed for pain. - ascorbic acid, vitamin C, (VITAMIN C) 500 mg tablet Take 1 tablet by mouth two times a day with meals for 27 doses. - aspirin, enteric coated (ASPIRIN, ENTERIC COATED) 81 mg EC tablet Take 1 tablet by mouth two times a day for 28 days. - cholecalciferol, Vitamin D3, (VITAMIN D3) 1,250 mcg (50,000 unit) cap capsule Take 1 capsule by mouth one time a week. - albuterol HFA (VENTOLIN HFA) 90 mcg/actuation inhaler Inhale 2 Puffs as instructed every 4 hours as needed. - Zolpidem (AMBIEN CR) 12.5 mg CR tablet Take 1 tablet by mouth at bedtime as needed for sedation for up to 90 days. Patient should start on April 27, 2024. - montelukast (SINGULAIR) 10 mg tablet Take 1 tablet by mouth daily at bedtime. - nystatin (NYSTOP) powder Apply 1 application to affected area three times daily. to affected area as needed Infection Control Coordinator: Addendum Therapy (PT/OT/Speech/Resp) ID: [id number] 08/28/2024 3:59 PM Author: LISSA LIRA Signed by LISSA LIRA PT on 08/28/2024 at 3:59 PM * * * This document replaces document [id number] * * * Document text: Program_ID:[id number] Access Code: [email or web address] URL: [email or web address] Date: 08-28-2024 Prepared By: Lissa Lira Program Notes Exercises - Standing Quad Set - 1 x daily - 7 x weekly - 4 sets - 15 reps - Standing Knee Flexion - 1 x daily - 7 x weekly - 4 sets - 15 reps - Standing Hip Abduction - 1 x daily - 7 x weekly - 4 sets - 15 reps Normal [facility] THERAPY NTon 08-28-2024 THERAPY NT HNO ID: [id number] Author: LISSA LIRA, PT Service: ? Author Type: Physical Therapist Type: Therapy (PT/OT/Speech/Resp) Filed: 08/28/2024 15:59 Note Text: Program_ID:[id number] Access Code: [email or web address] URL: [email or web address]/ Date: 08-28-2024 Prepared By: Lissa Lira Program Notes Exercises - Standing Quad Set - 1 x daily - 7 x weekly - 4 sets - 15 reps - Standing Knee Flexion - 1 x daily - 7 x weekly - 4 sets - 15 reps - Standing Hip Abduction - 1 x daily - 7 x weekly - 4 sets - 15 reps Normal [facility] CNTHERAPYon 08-21-2024 CNTHERAPY OT/PT/Speech Visit ( PTWS) -- NORA CAMARILLO ([id number]) 1950 F Date Time Provider Department 08/21/24 3:30 PM LISSA LIRA Date Time Provider Department [place] 08/21/2024 3:30 PM [id number] LIRA Reason for Visit: Physical Therapy [503] Primary Visit Diagnosis:S/P total knee arthroplasty, left [Z96.652] Allergies As of Date: 08/21/2024 Noted Allergy Reaction MORPHINE 03/03/2017 8 - GI Upset Comments: nausea NSAIDS (NON-STEROIDAL ANTI-INFLAM*10/31/2020 14 - Other: See Comments Comments: Hx of stomach ulcers ADVAIR DISKUS (FLUTICASONE PROPIO*05/14/2011 5 - Intolerance Comments: Hurts throat BENTYL (DICYCLOMINE HCL) 10/03/2009 16 - Unknown CELEBREX (CELECOXIB) 02/08/2006 8 - GI Upset DICYCLOMINE 09/10/2011 14 - Other: See Comments Comments: Dry mouth, blurred vision, loss of taste ESTRACE (ESTRADIOL) 03/17/2005 9 - Itching EVISTA (RALOXIFENE HCL) 03/17/2005 9 - Itching MACROBID (NITROFURANTOIN MONOHYD/*07/22/2017 14 - Other: See Comments Comments: Hair loss MEDROL (METHYLPREDNISOLONE) 09/27/2014 14 - Other: See Comments Comments: Dry mouth, sore throat. MOBIC (MELOXICAM) 06/05/2019 5 - Intolerance OXYCONTIN (OXYCODONE HCL) 07/19/2015 9 - Itching PENICILLINS 03/17/2005 9 - Itching PROZAC (FLUOXETINE HCL) 03/17/2005 16 - Unknown SULFAMETHIZOLE 11/17/2019 8 - GI Upset SYMAX-SL (HYOSCYAMINE SULFATE) 10/03/2009 16 - Unknown Date Reviewed: 08/11/2024 Reviewed by: Halderman-Nye, Jazzy, PT - Fully Assessed Prescriptions as of 08/21/2024 - oxyCODONE IR (ROXICODONE) 5 mg immediate release tablet Take 1 tablet by mouth every 6 hours as needed for pain for up to 9 days. - acetaminophen (TYLENOL) 500 mg tablet Take 2 tablets by mouth every 8 hours as needed for pain. - ascorbic acid, vitamin C, (VITAMIN C) 500 mg tablet Take 1 tablet by mouth two times a day with meals for 27 doses. - aspirin, enteric coated (ASPIRIN, ENTERIC COATED) 81 mg EC tablet Take 1 tablet by mouth two times a day for 28 days. - pantoprazole DR (PROTONIX) 40 mg tablet Take 1 tablet by mouth daily at 6 am. - docusate sodium (COLACE) 100 mg capsule Take 1 capsule by mouth two times a day as needed for constipation. - cholecalciferol, Vitamin D3, (VITAMIN D3) 1,250 mcg (50,000 unit) cap capsule Take 1 capsule by mouth one time a week. - albuterol HFA (VENTOLIN HFA) 90 mcg/actuation inhaler Inhale 2 Puffs as instructed every 4 hours as needed. - Zolpidem (AMBIEN CR) 12.5 mg CR tablet Take 1 tablet by mouth at bedtime as needed for sedation for up to 90 days. Patient should start on April 27, 2024. - montelukast (SINGULAIR) 10 mg tablet Take 1 tablet by mouth daily at bedtime. - nystatin (NYSTOP) powder Apply 1 application to affected area three times daily. to affected area as needed Normal [facility] 102on 08-14-2024 102 HNO ID: [id number] Author: RAFFI SIM HDA Service: ? Author Type: ? Type: 102 Filed: 08/14/2024 09:31 Note Text: Code Status: Full Code [facility] CNTHERAPYon 08-14-2024 CNTHERAPY OT/PT/Speech Visit ( PTWS) -- NORA CAMARILLO ([id number]) 1950 F Date Time Provider Department 08/14/24 10:00 AM XANDER WU PTWS Date Time Provider Department Center 08/14/2024 10:00 AM [id number], COREY PTWS Matti Caite Reason for Visit: PT Eval [747] Primary Visit Diagnosis:S/P total knee arthroplasty, right [Z96.651] Allergies As of Date: 08/14/2024 Noted Allergy Reaction MORPHINE 03/03/2017 8 - GI Upset Comments: nausea NSAIDS (NON-STEROIDAL ANTI-INFLAM*10/31/2020 14 - Other: See Comments Comments: Hx of stomach ulcers ADVAIR DISKUS (FLUTICASONE PROPIO*05/14/2011 5 - Intolerance Comments: Hurts throat BENTYL (DICYCLOMINE HCL) 10/03/2009 16 - Unknown CELEBREX (CELECOXIB) 02/08/2006 8 - GI Upset DICYCLOMINE 09/10/2011 14 - Other: See Comments Comments: Dry mouth, blurred vision, loss of taste ESTRACE (ESTRADIOL) 03/17/2005 9 - Itching EVISTA (RALOXIFENE HCL) 03/17/2005 9 - Itching MACROBID (NITROFURANTOIN MONOHYD/*07/22/2017 14 - Other: See Comments Comments: Hair loss MEDROL (METHYLPREDNISOLONE) 09/27/2014 14 - Other: See Comments Comments: Dry mouth, sore throat. MOBIC (MELOXICAM) 06/05/2019 5 - Intolerance OXYCONTIN (OXYCODONE HCL) 07/19/2015 9 - Itching PENICILLINS 03/17/2005 9 - Itching PROZAC (FLUOXETINE HCL) 03/17/2005 16 - Unknown SULFAMETHIZOLE 11/17/2019 8 - GI Upset SYMAX-SL (HYOSCYAMINE SULFATE) 10/03/2009 16 - Unknown Date Reviewed: 08/11/2024 Reviewed by: Jazzy Pereira, PT - Fully Assessed Prescriptions as of 09/12/2024 - cholecalciferol, Vitamin D3, (VITAMIN D3) 1,250 mcg (50,000 unit) cap capsule Take 1 capsule by mouth one time a week. - acetaminophen (TYLENOL) 500 mg tablet Take 2 tablets by mouth every 8 hours as needed for pain. - ascorbic acid, vitamin C, (VITAMIN C) 500 mg tablet Take 1 tablet by mouth two times a day with meals for 27 doses. - aspirin, enteric coated (ASPIRIN, ENTERIC COATED) 81 mg EC tablet Take 1 tablet by mouth two times a day for 28 days. - albuterol HFA (VENTOLIN HFA) 90 mcg/actuation inhaler Inhale 2 Puffs as instructed every 4 hours as needed. - Zolpidem (AMBIEN CR) 12.5 mg CR tablet Take 1 tablet by mouth at bedtime as needed for sedation for up to 90 days. Patient should start on April 27, 2024. - montelukast (SINGULAIR) 10 mg tablet Take 1 tablet by mouth daily at bedtime. - nystatin (NYSTOP) powder Apply 1 application to affected area three times daily. to affected area as needed Normal [facility] CNOVon 08-07-2024 CNOV Office Visit (RONN ) -- NORA CAMARILLO ([id number]) 1950 F Date Time Provider Department 08/07/24 10:30 AM REBEKAH EDUARDO During your visit today, we recorded the following information about you: Nora Escalante MA 08/07/2024 2:13 PM Signed Patient presents with: Right Knee - Post Op: 1 week 5 days post op Robotic assisted Right TKA AMB ROOMING INTAKE FLOWSHEET DATA Pain Pain Location: Knee-Right Description: Aching, Stiffness Duration Amount of Time: (Post op) Frequency: Continuous Intervention/Comfort measure: Medication Patient arrives in office using walker to ambulate. States she is continuing home exercises. Home health has been coming 3 times a week. Taking Oxycodone for the pain and is effective. Patient asking for a refill. X-rays done today. with patient. Rebekah Eduardo PA-C 08/07/2024 2:13 PM Signed Ortho Knee Follow Up Note Narrative Referring Provider: Bryson Dhillon [address] [facility] [address] PCP: Scot Blank MD == IMPRESSION/PLAN: == 74 year old s/p Right Total Knee Replacement completed on 07/26/2024. She is doing very well, motion is progressing nicely, she continues to take pain medication every 6 hours. Recent Surgeries this specialty 07/26/2024 (1w, 5d) ROBOTIC ASSISTED TOTAL KNEE ARTHROPLASTY; COMPUTER ASSIST MUSCULOSKETAL SURG NAVIGATION ORTHO PROCED W/IMAGE GUIDANCE BASED ON CT/MRI IMAGES (Right; Right) Bryson Dhillon MD - Posted 06/23/2019 (5yr) ARTHROSCOPY KNEE MENISCECTOMY MEDIAL AND LATERAL WITH MENISCAL SHAVING (Left) Bryson Dhillon MD - Posted PAIN EVALUATION 08/07/2024 1020 Pain Location: Knee-Right Description: Aching;Stiffness Duration Amount of Time: -- Post op Frequency: Continuous Intervention/Comfort measure: Medication IMPRESSION: At normal post-operative stage of recovery. PLAN: Continue current conservative treatment. Rest, Ice, Compression, Elevation PRN. Patient Reassurance: Progress appears to be with the normal speed of recovery. Patient reassured and supported. All questions answered. Follow up 1 month No X-Rays Needed Nora Camarillo presents today for a a routine 1st post-op visit ACTIVE PROBLEM LIST Diverticulosis of Large Intestine Senile Osteoporosis Mixed Hyperlipidemia Delayed Gastric Emptying Elevated Fasting Blood Sugar Gastric Diverticulum Pud (Peptic Ulcer Disease) Gastroesophageal Reflux Disease With Esophagitis Mild Persistent Asthma Without Complication Primary Insomnia Medicare Annual Wellness Visit, Subsequent Low Back Pain Essential Tremor Bilateral Carotid Artery Stenosis Arthritis of Left Knee Obesity, Class I, Bmi 30-34.9 Palpitations Medication Management Left Lateral Abdominal Pain Chronic Bilateral Low Back Pain Allergic Rhinitis Left Leg Swelling May-Thurner Syndrome Family History of Thyroid Disease Memory Impairment Anxiety and Depression Chronic Pain of Left Knee Chronic Pain of Both Ankles Mixed Incontinence Chronic Pain of Right Knee Living Will On File Advance Directive Discussed With Patient Age-Related Osteoporosis Without Current Pathological Fracture Vitamin D Deficiency Persistent Cough Second Hand Smoke Exposure Lbbb (Left Bundle Branch Block) S/P Total Knee Arthroplasty, Right Status post op: BMI: There is no height or weight on file to calculate BMI. Post-operative recovery was complicated by uneventful/none. Readmission(s) since surgery (90 days post)? No ED Visits AND Hospitalizations - Last 180 days 07/26/24 Bryson Dhillon MD, ME2E S/P total knee arthroplasty, right, Admission (Discharged) Patient rates their condition as improving. Does the patient still experience pain? Onset: activity. Location: Right knee. Frequency: intermittently. Pain scale: 0. Pain character: stiffness . Relieving factors: Ice and Pain medication. Aggravating factors: Prolonged sitting, Arising from chair, Walking long distances, and Increased activity Post Op discharge patient location: in home. Functional Assessment is as follows: is ready to begin outpatient PT. Functional difficulties: Interferes with sleep, Prolonged standing, Stair climbing, and Walking. Pain Medication: Narcotic Current Opioids Analgesic Opioid Agonists Start End oxyCODONE IR (ROXICODONE) 5 mg immediate release tablet 08/07/2024 08/16/2024 Sig - Route: Take 1 tablet by mouth every 6 hours as needed for pain for up to 9 days. - ORAL Earliest Fill Date: 08/07/2024 Currently Ambulating with: a walker 03/21/2019 03/23/2019 03/28/2019 Physical Therapy Data Plan for next visit Continue with ther ex that is tolerable. US as needed. Continue with therapeutic exercise that does not cause the pt undue pain. Continue with therapeutic exercise that does not cause the pt undue pain and (more content not included)... Normal [facility] XR KNEE 3V AP/LAT/MERCHANT R Ton 08-07-2024 XR KNEE 3V AP/LAT/MERCHANT RT * * *Final Report* * * DATE OF EXAM: Aug 07 2024 10:18AM [id number] - XR KNEE 3V AP/LAT/MERCHANT RT / PROCEDURE REASON: S/P total knee arthroplasty, right * * * * Physician Interpretation * * * * PROCEDURE: Right knee INDICATION: S/P total knee arthroplasty, right .PT STATES POST OP RIGHT KNEE 2 WEEKS TECHNIQUE: XR KNEE 3V AP/LAT/MERCHANT RT COMPARISON: 03/03/2024 FINDINGS: There is a new total knee arthroplasty in satisfactory position. No periprosthetic lucency or fracture. No significant joint effusion or soft tissue emphysema. Stable sclerotic area in the medial tibial plateau consistent with prior subchondroplasty. IMPRESSION: Interval TKA without radiographic complication Buttermaker: NANCY Transcribe Date/Time: Aug 09 2024 7:38A Dictated by : JAMILA HENNESSY MD This examination was interpreted and the report reviewed and electronically signed by: JAMILA HENNESSY MD on Aug 09 2024 7:40AM EST [id number] [facility] C[facility] Telephone (HCSIND) -- NORA CAMARILLO ([id number]) 1950 F [facility]* Date Time Provider Department 08/02/24 SALLIE HI HCSIND During your visit today, we recorded the following information about you: Sallie Hi, ENVELOPE PATTERNMAKER 08/02/2024 3:29 PM Signed Removed surgical bandage today. No concerns. Picture uploaded to chart. Thanks Allergies As of Date: 08/02/2024 Noted Allergy Reaction MORPHINE 03/03/2017 8 - GI Upset Comments: nausea NSAIDS (NON-STEROIDAL ANTI-INFLAM*10/31/2020 14 - Other: See Comments Comments: Hx of stomach ulcers ADVAIR DISKUS (FLUTICASONE PROPIO*05/14/2011 5 - Intolerance Comments: Hurts throat BENTYL (DICYCLOMINE HCL) 10/03/2009 16 - Unknown CELEBREX (CELECOXIB) 02/08/2006 8 - GI Upset DICYCLOMINE 09/10/2011 14 - Other: See Comments Comments: Dry mouth, blurred vision, loss of taste ESTRACE (ESTRADIOL) 03/17/2005 9 - Itching EVISTA (RALOXIFENE HCL) 03/17/2005 9 - Itching MACROBID (NITROFURANTOIN MONOHYD/*07/22/2017 14 - Other: See Comments Comments: Hair loss MEDROL (METHYLPREDNISOLONE) 09/27/2014 14 - Other: See Comments Comments: Dry mouth, sore throat. MOBIC (MELOXICAM) 06/05/2019 5 - Intolerance OXYCONTIN (OXYCODONE HCL) 07/19/2015 9 - Itching PENICILLINS 03/17/2005 9 - Itching PROZAC (FLUOXETINE HCL) 03/17/2005 16 - Unknown SULFAMETHIZOLE 11/17/2019 8 - GI Upset SYMAX-SL (HYOSCYAMINE SULFATE) 10/03/2009 16 - Unknown Date Reviewed: 08/02/2024 Reviewed by: Sallie Hi PTA - Fully Assessed Reason for Visit: Home Care [4073] Cmt: Bandage removal Prescriptions as of 08/02/2024 - oxyCODONE IR (ROXICODONE) 5 mg immediate release tablet Take 1 tablet by mouth every 6 hours as needed for pain for up to 9 days. - acetaminophen (TYLENOL) 500 mg tablet Take 2 tablets by mouth every 8 hours as needed for pain. - ascorbic acid, vitamin C, (VITAMIN C) 500 mg tablet Take 1 tablet by mouth two times a day with meals for 27 doses. - aspirin, enteric coated (ASPIRIN, ENTERIC COATED) 81 mg EC tablet Take 1 tablet by mouth two times a day for 28 days. - pantoprazole DR (PROTONIX) 40 mg tablet Take 1 tablet by mouth daily at 6 am. - polyethylene glycol 3350 (MIRALAX) 17 gram/dose powder Take 17 g by mouth once daily as needed for constipation for up to 10 days. Dissolve dose in 4 - 8 ounces of liquid and take as directed. - docusate sodium (COLACE) 100 mg capsule Take 1 capsule by mouth two times a day as needed for constipation. - cholecalciferol, Vitamin D3, (VITAMIN D3) 1,250 mcg (50,000 unit) cap capsule Take 1 capsule by mouth one time a week. - albuterol HFA (VENTOLIN HFA) 90 mcg/actuation inhaler Inhale 2 Puffs as instructed every 4 hours as needed. - Zolpidem (AMBIEN CR) 12.5 mg CR tablet Take 1 tablet by mouth at bedtime as needed for sedation for up to 90 days. Patient should start on April 27, 2024. - montelukast (SINGULAIR) 10 mg tablet Take 1 tablet by mouth daily at bedtime. - nystatin (NYSTOP) powder Apply 1 application to affected area three times daily. to affected area as needed Problem List As Of Date 08/02/2024 Noted Resolved Unspecified constipation [K59.00] 12/22/2011 Diverticulosis of large intestine [K57.30] Senile osteoporosis [M81.0] 01/05/2006 Diaphragmatic hernia without mention of obstruc*01/24/2007 07/22/2017 Routine general medical examination at [facility]*11/20/2009 12/22/2011 Class: Chronic Routine gynecological examination [Z01.419] 11/20/2009 12/22/2011 Class: Chronic Diarrhea [R19.7] 11/20/2009 12/22/2011 Mixed hyperlipidemia [E78.2] 11/20/2009 Delayed gastric emptying [K30] 09/18/2011 Non morbid obesity [E66.9] 08/20/2015 07/22/2017 Encounter for gynecological examination without*12/06/2015 06/15/2019 Encounter for screening for cardiovascular diso*12/06/2015 06/15/2019 Colon cancer screening [Z12.11] 12/06/2015 06/15/2019 Elevated fasting blood sugar [R73.01] 12/10/2015 Chronic bilateral low back pain [M54.50, G89.29]01/01/2016 06/15/2019 Gastric diverticulum [K31.4] 03/13/2016 PUD (peptic ulcer disease) [K27.9] 03/13/2016 Gastroesophageal reflux disease with esophagiti*03/13/2016 Mild persistent asthma without complication [J4*07/22/2016 Hiatal hernia [K44.9] 07/22/2016 06/15/2019 Primary insomnia [F51.01] 07/22/2016 Chronic pain of left knee [M25.562, G89.29] 07/22/2016 06/15/2019 Medicare annual wellness visit, subsequent [Z00*01/21/2017 Well adult exam [Z00.00] 01/21/2017 06/15/2019 Left hip pain [M25.552] 09/14/2017 06/15/2019 Low back pain [M54.50] 09/14/2017 Essential tremor [G25.0] 01/19/2018 Bilateral carotid artery stenosis [I65.23] 01/03/2019 Left lateral abdominal pain [R10.9] 02/15/2019 06/15/2019 Arthritis of left knee [M17.12] 02/19/2019 Obesity, Class I, BMI 30-34.9 [E66.811] 06/15/2019 Palpitations [R00.2] 08/25/2019 Medication management [Z79.899] 08/25/2019 Left lateral abdominal (more content not included)... Normal [facility] CNCOon 07-28-2024 CNCO Letter Text Normal [facility] Basic metabolic 2000 panelon 07-27-2024 Anion gap [Moles/Vol] 10 mmol/L Normal 8-15 [facility] Comment on above: Order Comment: Speci men Type: BLOOD SPECIMENOrdering Facility: [facility] Address: [address] [place] [address] Performed By: #### 2 4321-2 ####ZHANG LABORATORYCLIA [id number] [place] [address] [place] Calcium [Mass/Vol] 9.1 mg/dL Normal 8.5-10.2 [facility] Comment on above: Order Comment: Speci men Type: BLOOD SPECIMENOrdering Facility: [facility] Address: [address] [place] [address] Performed By: #### 2 4321-2 ####ZHANG LABORATORYCLIA [id number] [place] [address] [place] Chloride [Moles/Vol] 105 mmol/L Normal 98-107 [facility] Comment on above: Order Comment: Speci men Type: BLOOD SPECIMENOrdering Facility: [facility] Address: [address] [place] [address] Performed By: #### 2 4321-2 ####ZHANG LABORATORYCLIA [id number] [place] [address] [place] CO2 [Moles/Vol] 25 mmol/L Normal 22-30 [facility] Comment on above: Order Comment: Speci men Type: BLOOD SPECIMENOrdering Facility: [facility] Address: [address] [place] [address] Performed By: #### 2 4321-2 ####MARSTON LABORATORYCLIA [id number] [place] [id number] [place] [facility] Creatinine [Mass/Vol] 0.64 mg/dL Normal 0.58-0.96 [facility] Comment on above: Order Comment: Vinita fierro Type: BLOOD SPECIMENOrdering Facility: [facility] Address: [address] [place] [address] Performed By: #### 2 4321-2 ####MARSTON LABORATORYCLIA [id number] [place] [id number] [facility] Creatinine and Glomerular filtration rate.predicted panel (S/P/Bld) 93 mL/min/1.73m??? Normal >=60 [facility] Comment on above: Order Comment: Vinita fierro Type: BLOOD SPECIMENOrdering Facility: [facility] Address: [address] [place] [address] Result Comment: Brittani mated Glomerular Filtration Rate (eGFR) is calculated using the 2020 CKD-EPI creatinine equation. This equation utilizes serum creatinine, sex, and age as parameters. The creatinine assay has traceable calibration to isotope dilution-mass spectrometry. Refer to KDIGO guidelines for clinical interpretation. In patients with unstable renal function, e.g. those with acute kidney injury, the eGFR may not accurately reflect actual GFR. Performed By: #### 2 4321-2 ####ZHANG LABORATORYCLIA [id number] [place] [id number] [place] Glucose [Mass/Vol] 121 mg/dL High 74-99 [facility] Comment on above: Order Comment: Vinita fierro Type: BLOOD SPECIMENOrdering Facility: [facility] Address: [address] [place] [address] Result Comment: The Canadian Diabetes Association (ADA) provides guidance for cutoff values for fasting glucose and random glucose. The ADA defines fasting as no caloric intake for at least 8 hours. Fasting plasma glucose results between 100 to 125 mg/dL indicate increased risk for diabetes (prediabetes). Fasting plasma glucose results greater than or equal to 126 mg/dL meet the criteria for diagnosis of diabetes. In the absence of unequivocal hyperglycemia, results should be confirmed by repeat testing. In a patient with classic symptoms of hyperglycemia or hyperglycemic crisis, random plasma glucose results greater than or equal to 200 mg/dL meet the criteria for diagnosis of diabetes. Reference: Standards of Medical Care in Diabetes 2016, Canadian Diabetes Association. Diabetes Care. 2016.39(Suppl 1). Performed By: #### 2 4321-2 ####ZHANG LABORATORYCLIA [id number] [address] Potassium [Moles/Vol] 4.4 mmol/L Normal 3.7-5.1 [facility] Comment on above: Order Comment: Vinita fierro Type: BLOOD SPECIMENOrdering Facility: [facility] Address: [address] [place] [address] Performed By: #### 2 4321-2 ####ZHANG LABORATORYCLIA [id number] [address] Sodium [Moles/Vol] 140 mmol/L Normal 136-144 [facility] Comment on above: Order Comment: Vinita fierro Type: BLOOD SPECIMENOrdering Facility: [facility] Address: [address] [place] [address] Performed By: #### 2 4321-2 ####ZHANG LABORATORYCLIA [id number] [address] [place] [facility] Urea nitrogen [Mass/Vol] 10 mg/dL Normal 7-21 [facility] Comment on above: Order Comment: Vinita fierro Type: BLOOD SPECIMENOrdering Facility: [facility] Address: [address] [place] [address] Performed By: #### 2 4321-2 ####ZHANG LABORATORYCLIA [id number] [address] OF [facility] CASE MANAGEMon 07-27-2024 CASE MANAGEM HNO ID: [id number] Author: FELIPA SAXENA RN Service: ? Author Type: Registered Nurse Type: Care Mgt Progress Note Filed: 07/27/2024 11:56 Note Text: CARE MANAGEMENT DISCHARGE NOTE SERVICE DATE: July 27, 2024 SERVICE TIME: 11:55 AM Admission Date: 07/26/2024 LOS: 0 days Discharge Arrangement Discharge Arrangement: Home with Home Health, Home with Relative Services Arranged Medical Services: Skilled Home Health Care Type: Home Health Agency, Physical Therapy [facility]: [facility] Caregiver Assessment Caregiver is ready, willing and able to meet the patient's needs as recommended by the inter-professional team: Yes Name of Caregiver: Transportation Arrangements Transportation Arrangements: Car- to transport Handoff Communication: Handoff to: Primary Care Physician Primary Care Physician Name/Phone: Dr. Scot Blank- [phone] Additional Information: Discharge order written for today. [facility] will [facility] the patient for Home PT with a start of care date within 24-48 hours. Notified [facility] of the patients discharge home today. Discharge Information Row Name Admission (Current) from 07/26/[address] [facility] Start of Care -- Within 24-48 hours SIGNATURE: Felipa Saxena RN PATIENT NAME: Nora Camarillo DATE: July 27, 2024 TIME: 11:55 AM Normal [facility] CASE MGT INIT ASSon 2024 CASE MGT INIT [facility] HNO ID: [id number] Author: FELIPA SAXENA RN Service: ? Author Type: Registered Nurse Type: Care Mgt Initial Assessment Filed: 07/27/2024 10:36 Note Text: CARE MANAGEMENT: ASSESSMENT AND DISCHARGE PLAN SERVICE DATE: July 27, 2024 SERVICE TIME: 9:52 AM PCP: Scot Blank MD Primary Contact: Extended Emergency Contact Information Primary Emergency Contact: Mati Camarillo Address: [address] [place] [address] Relation: Spouse Secondary Emergency Contact: Giorgi Gary Mobile Relation: Daughter Admission Status: Extended Recovery Insurance Provider: MEDICARE A AND B Discharge Planning requested by: Per Department Practice Potential Transition Plans Home OT/PT Advance Directives Current Advance Directive: Living Will;Health Care Power of Shoe Cobbler In Chart: Yes Up To Date and Valid: Yes Current Living Arrangements and Support Lives with: Spouse/significant other Type of Residence: Private Residence (House) Does the patient have to climb stairs at home?: Yes;stairs outside the home Support: Spouse/significant other How do you manage to accomplish the following: Independent: Ambulation;Bathe/Shower;Dr ess;Meals/Meal Prep;Going to the bathroom;Medication Management;Transportation to appointments/community Current Services/Equipment Current Post-Acute Service(s): DME Current DME Type: Elevated toilet seat, Shower seat, Cane, Walker Discharge Planning Patient Goal(s): Be able to go home Wilson of Choice Explained: Wilson of Choice Given: Yes Level of Care Discussed: Home Care Are you interested in bedside delivery of your medications? Yes Discharge Planning Participant(s): Patient Patient/Family Comments: Caregiver Assessment: Caregiver is ready, willing and able to meet the patient's needs as recommended by the inter-professional team: Yes Name of Caregiver: Transport at Discharge: Transportation Arrangements: Car Needs Prior to Discharge: Needs Prior to Discharge: Other: See Comment (Accepting [facility] agency) Post-Acute Discharge Plan: Review of the chart and met with the patient. The patient live with her an in ranch home. PT- Home PT.Discussed PT recommendations with the patient. [facility]erral to [facility]. CM department will continue to follow for DC needs. 10:35 am- [facility] able to accept. SIGNATURE: Felipa Saxena RN PATIENT NAME: Nora Camarillo DATE: July 27, 2024 TIME: 9:52 AM Normal [facility] CBC panel Auto (Bld)on 07-27 Erythrocyte distribution width (RBC) [Ratio] 13.1 % Normal 11.5-15.0 [facility] Comment on above: Order Comment: Speci vadim Type: BLOOD SPECIMENOrdering Facility: [facility] Address: [address] [place] [address] Performed By: #### 5 8410-2 ####MARSTON LABORATORYCLIA [id number] [place] [address] [place] Hematocrit (Bld) [Volume fraction] 36.1 % Normal 36.0-46.0 [facility] Comment on above: Order Comment: Vinita fierro Type: BLOOD SPECIMENOrdering Facility: [facility] Address: [address] [place] [address] Performed By: #### 5 8410-2 ####MARSTON LABORATORYCLIA [id number] [place] [address] [place] Hemoglobin (Bld) [Mass/Vol] 12.0 g/dL Normal 11.5-15.5 [facility] Comment on above: Order Comment: Speci men Type: BLOOD SPECIMENOrdering Facility: [facility] Address: [address] [place] [address] Performed By: #### 5 8410-2 ####ZHANG LABORATORYCLIA [id number] [address] MCH (RBC) [Entitic mass] 30.8 pg Normal 26.0-34.0 [facility] Comment on above: Order Comment: Speci men Type: BLOOD SPECIMENOrdering Facility: [facility] Address: [address] [place] [address] Performed By: #### 5 8410-2 ####ZHANG LABORATORYCLIA [id number] [address] MCHC (RBC) [Mass/Vol] 33.2 g/dL Normal 30.5-36.0 [facility] Comment on above: Order Comment: Speci men Type: BLOOD SPECIMENOrdering Facility: [facility] Address: [address] [place] [address] Performed By: #### 5 8410-2 ####ZHANG LABORATORYCLIA [id number] [address] MCV (RBC) [Entitic vol] 92.6 fL Normal 80.0-100.0 [facility] Comment on above: Order Comment: Speci men Type: BLOOD SPECIMENOrdering Facility: [facility] Address: [address] [place] [address] Performed By: #### 5 8410-2 ####ZHANG LABORATORYCLIA [id number] [address] Nucleated RBC (Bld) [#/Vol] 10*3/uL Normal <0.01 [facility] Comment on above: Order Comment: Speci men Type: BLOOD SPECIMENOrdering Facility: [facility] Address: [address] [place] [address] Performed By: #### 5 8410-2 ####ZHANG LABORATORYCLIA [id number] [place] [address] [place] Platelet mean volume (Bld) [Entitic vol] 10.3 fL Normal 9.0-12.7 [facility] Comment on above: Order Comment: Speci men Type: BLOOD SPECIMENOrdering Facility: [facility] Address: [address] [place] [address] Performed By: #### 5 8410-2 ####MARSTON LABORATORYCLIA [id number] [place] [address] [place] Platelets (Bld) [#/Vol] 277 10*3/uL Normal 150-400 [facility] Comment on above: Order Comment: Speci men Type: BLOOD SPECIMENOrdering Facility: [facility] Address: [address] [place] [address] Performed By: #### 5 8410-2 ####MARSTON LABORATORYCLIA [id number] [place] [address] [place] RBC (Bld) [#/Vol] 3.90 10*6/uL Normal 3.90-5.20 [facility] Comment on above: Order Comment: Speci men Type: BLOOD SPECIMENOrdering Facility: [facility] Address: [address] [place] [address] Performed By: #### 5 8410-2 ####MARSTON LABORATORYCLIA [id number] [place] [address] [place] WBC (Bld) [#/Vol] 10.14 10*3/uL Normal 3.70-11.00 [facility] Comment on above: Order Comment: Speci men Type: BLOOD SPECIMENOrdering Facility: [facility] Address: [address] [place] [address] Performed By: #### 5 8410-2 ####MARSTON LABORATORYCLIA [id number] [place] [id number] [facility] CNCOon 07-27-2024 CNCO Letter Text Normal [facility] CNDSon 07-27-2024 CNDS HNO ID: [id number] Author: GINA SAMAYOA PA-C Service: Orthopaedic Surgery Author Type: Physician Professional Application Designer Type: Discharge Summary Filed: 07/27/2024 11:31 Note Text: -- Attestation signed by Bryson Dhillon MD at 07/28/2024 1:36 PM Bryson Dhillon MD -- DISCHARGE SUMMARY PATIENT NAME: Nora Camarillo ADMISSION DATE: 07/26/2024 DISCHARGE DATE: 07/27/2024 PATIENT DISCHARGE SUMMARY C O N F I D E N T I A L I N F O R M A T I O N The following is a brief overview of your hospitalization. Some of the information contained on this summary may be confidential. This information should be kept in your records and should be shared with your regular doctor. These instructions explain what you or your day care aide need to do to continue your care at home or at another healthcare facility Please go over these instructions with your nurse and day care aide. If you are not sure about something, please ask. -- -------- Highest Readmission Risk Score: 9 The 30 day readmissions risk score is derived from an internally validated risk model which evaluates patient level characteristics, utilization history, medication orders and lab results up until the day of discharge. Patients with a score of 40 or above are considered highest risk for readmission. Specific patient level drivers will be listed at the bottom of the summary. The 30 day readmissions risk score is derived from an internally validated risk model which evaluates patient level characteristics, utilization history, medication orders and lab results up until the day of discharge. Patients with a score of 40 or above are considered highest risk for readmission. Where I Will be Going after Discharge: Home with Home Health My Condition at Discharge: Stable PRINCIPAL DIAGNOSIS: (Reason after study for this admission): Procedure(s): ROBOTIC ASSISTED TOTAL KNEE ARTHROPLASTY OTHER DIAGNOSES: Patient Active Hospital Problem List: S/P total knee arthroplasty, right Date Noted: 07/27/2024 OPERATIONS PERFORMED: Procedure(s): ROBOTIC ASSISTED TOTAL KNEE ARTHROPLASTY My Doctors and Medical Team: My Main Hospital Doctor: Bryson Persaud MD PHYSICAL EXAM: See daily progress note Vitals: BP 122/54 Pulse 70 Temp 36.4 ?C (97.5 ?F) (Oral) Resp 16 SpO2 96% SUMMARY OF WHAT HAPPENED WHILE PATIENT WAS IN THE HOSPITAL: The patient was followed by Dr. Dhillon in clinic for right knee osteoarthritis. It was determined the patient would benefit from right total knee arthroplasty. The procedure, its risks, benefits, and potential complications were discussed in detail prior to surgery. The patient conveyed understanding of all topics and consented to surgery. The patient was admitted to the hospital. Underwent an elective right total knee arthroplasty on 07/26/[address] Dhillon. The patient tolerated the procedure well and was returned to the Post Anesthesia Care Unit in stable condition. Vital signs per PACU protocol. VTE risk assessment performed. O2 therapy monitored by Respiratory Therapy to include incentive spirometry, ADL, wound and support per physician order set postop protocol. PT and OT to evaluate and treat. IV antibiotics, antiemetics, DVT prophylaxis and pain medication were given. The patient progressed with physical therapy. Lab values and vital signs were monitored and remained stable. The incision remained clean, dry and intact. Thigh and calf are not swollen. No signs of DVT or infection. The patient progressed with physical therapy towards goal of safety and independence. Patient was determined safe for discharge to home with home health care on 07/27/2024. TREATMENT / WOUND CARE: If you have any concerns about your wound, please contact the office. Keep wound and incision area clean and dry. You may remove your dressing on POD #7-10 (7 to 10 days after surgery). If it remains drainage-free, you may leave the dressing off, keeping the wound open to air. If there is any drainage please contact the office You may not submerge the wound under standing water for 6 weeks time after surgery (i.e. no baths, no hot tubs, no swimming pools). Do not rub the wound, but rather pat dry. If you have non-absorbable sutures in place, these will be taken out on your 1st follow-up appointment. Observe the wound for signs of infection, including increased redness, swelling, or persistent drainage around the incision site. It is normal for your wound to be warmer immediately after surgery (even up to 4-6 weeks after surgery). If you begin to experience fevers, chills, night sweats, or flu-like symptoms and your wound shows signs concerning for wound inf (more content not included)... [facility] 07-27-2024 [facility] Telephone ([facility]) -- NORA CAMARILLO ([id number]) 1950 [address]* Date Time Provider Department 07/27/24 [facility] During your visit today, we recorded the following information about you: Dawn Vincent PSS 07/27/2024 12:17 PM Signed Date/Time: 07/27/2024 12:13 PM Spoke with Mati Camarillo (Spouse) @ phone #: [phone] - Preferred # for contact: [phone] Have you received help from a home care company in the last 60 days? no Are you agreeable to [facility] services? yes What address will we be seeing you at? [address] [place] [address] Do you have any upcoming appointments or things we need to schedule around? no Do you have a teachable CG or can you manage your care independently? yes Who? Mati Camarillo (Spouse) Have you received the flu shot? no If so, when and where? na Allergies As of Date: 07/27/2024 Noted Allergy Reaction MORPHINE 03/03/2017 8 - GI Upset Comments: nausea NSAIDS (NON-STEROIDAL ANTI-INFLAM*10/31/2020 14 - Other: See Comments Comments: Hx of stomach ulcers ADVAIR DISKUS (FLUTICASONE PROPIO*05/14/2011 5 - Intolerance Comments: Hurts throat BENTYL (DICYCLOMINE HCL) 10/03/2009 16 - Unknown CELEBREX (CELECOXIB) 02/08/2006 8 - GI Upset DICYCLOMINE 09/10/2011 14 - Other: See Comments Comments: Dry mouth, blurred vision, loss of taste ESTRACE (ESTRADIOL) 03/17/2005 9 - Itching EVISTA (RALOXIFENE HCL) 03/17/2005 9 - Itching MACROBID (NITROFURANTOIN MONOHYD/*07/22/2017 14 - Other: See Comments Comments: Hair loss MEDROL (METHYLPREDNISOLONE) 09/27/2014 14 - Other: See Comments Comments: Dry mouth, sore throat. MOBIC (MELOXICAM) 06/05/2019 5 - Intolerance OXYCONTIN (OXYCODONE HCL) 07/19/2015 9 - Itching PENICILLINS 03/17/2005 9 - Itching PROZAC (FLUOXETINE HCL) 03/17/2005 16 - Unknown SULFAMETHIZOLE 11/17/2019 8 - GI Upset SYMAX-SL (HYOSCYAMINE SULFATE) 10/03/2009 16 - Unknown Date Reviewed: 07/26/2024 Reviewed by: Alethea Ziegler RN - Fully Assessed Reason for Visit: Home Care [4073] Cmt: CONFIRMATION CALL Prescriptions as of 07/27/2024 - acetaminophen (TYLENOL) 500 mg tablet Take 2 tablets by mouth every 8 hours as needed for pain. - ascorbic acid, vitamin C, (VITAMIN C) 500 mg tablet Take 1 tablet by mouth two times a day with meals for 27 doses. - aspirin, enteric coated (ASPIRIN, ENTERIC COATED) 81 mg EC tablet Take 1 tablet by mouth two times a day for 28 days. - oxyCODONE IR (ROXICODONE) 5 mg immediate release tablet Take 1-2 tablets by mouth every 6 hours as needed for pain for up to 7 days. - pantoprazole DR (PROTONIX) 20 mg tablet Take 1 tablet by mouth two times a day as needed. Patient should start on August 26, 2024. - pantoprazole DR (PROTONIX) 40 mg tablet Take 1 tablet by mouth daily at 6 am. - polyethylene glycol 3350 (MIRALAX) 17 gram/dose powder Take 17 g by mouth once daily as needed for constipation for up to 10 days. Dissolve dose in 4 - 8 ounces of liquid and take as directed. - docusate sodium (COLACE) 100 mg capsule Take 1 capsule by mouth two times a day as needed for constipation. - cholecalciferol, Vitamin D3, (VITAMIN D3) 1,250 mcg (50,000 unit) cap capsule Take 1 capsule by mouth one time a week. - albuterol HFA (VENTOLIN HFA) 90 mcg/actuation inhaler Inhale 2 Puffs as instructed every 4 hours as needed. - Zolpidem (AMBIEN CR) 12.5 mg CR tablet Take 1 tablet by mouth at bedtime as needed for sedation for up to 90 days. Patient should start on April 27, 2024. - montelukast (SINGULAIR) 10 mg tablet Take 1 tablet by mouth daily at bedtime. - nystatin (NYSTOP) powder Apply 1 application to affected area three times daily. to affected area as needed Facility-Administered Medications as of 07/27/2024 - albuterol HFA 90 mcg/actuation 2 Puff (PROVENTIL HFA, VENTOLIN HFA) - montelukast 10 mg tab(s) (SINGULAIR) - acetaminophen 1,000 mg tab(s) (TYLENOL) - ondansetron orally disintegrating 4 mg tab(s) (ZOFRAN ODT) - ondansetron (PF) 4 mg injection (ZOFRAN) - magnesium hydroxide 400 mg/5 mL 30 mL (MOM) - bisacodyl EC 10 mg tab(s) (DULCOLAX) - aluminum-magnesium hydroxide-simethicone 200-200-20 mg/5 mL 30 mL - ascorbic acid (vitamin C) 500 mg tab(s) (VITAMIN C) - docusate sodium 100 mg cap(s) (COLACE) - senna 17.2 mg tab(s) (SENOKOT) - aspirin, enteric coated 81 mg tab(s) - keTORolac 15 mg injection (Toradol) - zolpidem 5 mg tab(s) (AMBIEN) - lactated ringers iv infusion - pantoprazole DR 40 mg tab(s) (PROTONIX) - oxyCODONE IR 5-10 mg tab(s) (ROXICODONE) - diphenhydrAMINE 25 mg injection (BENADRYL) - HYDROmorphone 0.2 mg injection (DILAUDID) Problem List As Of Date 07/27/2024 Noted Resolved Unspecified constipation [K59.00] 12/22/2011 Diverticulosis of large intestine [K57.30] 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 Normal [facility] THERAPY NTon 07-27-2024 THERAPY NT HNO ID: [id number] Author: ISAIAH BEDOLLA OTR/Bandar Service: Occupational Therapy Author Type: Occupational Therapist Type: Therapy (PT/OT/Speech/Resp) Filed: 07/27/2024 13:45 Note Text: -- Summary: OT evaluation -- Occupational Therapy Evaluation Summary SERVICE DATE: 07/27/2024 SERVICE TIME: 1110 to 1153 ROOM: [id number] OT 6 Clicks Score: 20 Total Joint Replacement Discharge Readiness: Cleared from Occupational Therapy DISCHARGE RECOMMENDATIONS Home OT Recommended Discharge Disposition Comments: for home safety evaluation and follow through with recommendations Anticipated Discharge Needs: Physical Assist at Home Physical Assist at Home for: Cleaning, Laundry, Meals, Safety, Self Care Supervision at Home due to: Decreased safety awareness, Impaired cognition ASSESSMENT Response to Therapy Interventions: Good Participation in Activities, Improved Tolerance for Activity, Notable Progression with Functional Activities/Skills, On-Track to Achieve Discharge Goals, Pain, Requires Additional Time to Complete Activities Patient is willing to participate in all tasks. Patient limited by pain and anxiety. Patient is slightly impulsive and benefits from verbal cues for safety with transfers. Patient demonstrates intermittent confusion/forgetfulness (possible medication side effect) PRECAUTIONS Fall Risk, Lines/Tubes/Drains, Total Knee Replacement, Weight Bearing Restrictions, Impulsive with Activity Right Lower Extremity Weight Bearing Status: WBAT CURRENT HOSPITAL COURSE s/p R TKR Relevant Past Medical History: LBBB (left bundle branch block) and PVD (revascularization), asthma, GERD, anxiety HOME LIVING Patient Lives With: Spouse (and dog in ranch style home) Assistance Available: 24-Hour Entry To Home: Stairs, Without Rail Number Of Stairs Into Home: (1 into utility room and 1 into kitchen) Number Of Stairs To Bed/Bath: 0 Tub/Shower Type: tub with chair and gb Laundry: on main floor Equipment Owned: Cane, Commode- Raised, Grab Bars- Shower, Shower Chair, Walker- Wheeled PRIOR FUNCTIONAL LEVEL Within Functional Limits indep with all ADL's and IADl's, enjoys shopping with her friends Baseline Cognition: Oriented to self, Oriented to place, Oriented to time, Oriented to situation SUBJECTIVE I can't go home like this, my knee is throbbing, my can't take care of me COGNITION Orientation Deficits: (AO x4, intermittent confusion (medication effects?)) Responsiveness: Alert, Awake Follows Commands: 1-step Commands Attention Deficits: Redirected with Cues Psychosocial Factors Impacting Care: Anxiety/Stress THERAPY DIAGNOSIS Decreased activities of daily living (ADL) TREATMENT INTERVENTIONS Evaluation, Therapeutic Activity (18429), Self Senior Living Management (44910) Timed Code Treatment (minutes): 25 Skilled Treatment Time (minutes): 43 TRAINING AND EDUCATION PROVIDED Activity Adaptation/Compensatory Strategies, Adaptive Equipment/DME, Assistive Device Use, Bed Mobility, Benefits of In-Hospital Mobility, Discharge Planning, Edema Management, Expected Functional Level, Functional Mobility Involving ADLs, Grooming Tasks, Home Set-up/Modifications, Identification of Systems of Support, Lower Extremity Bathing, Lower Extremity Dressing, Pain Management, Positioning,Precautions/Re strictions, Role of Occupational Therapy, Safety/Judgment, Toileting , Standing Balance to Improve [place] with ADLs/Self-Care, Transfer - Sit to Stand, Transfer - Toilet/Commode, Transfer - Tub Shower THERAPEUTIC SKILLS USED Assessment of Tolerance Including Vitals Response to Activity, Cues for Sequencing/Proper Technique for Activity, Cuing Tactile, Cuing Verbal, Cuing Visual, Physical Assist, Therapeutic Use of Self, Teach-Back for Education FUNCTIONAL STATUS Activities of Daily Living Assist Level Additional Information Feeding Independent Grooming Contact Guard Assistance Bathing Upper Body Stand By Assistance Bathing Lower Body Minimal Assistance Dressing Upper Body Stand By Assistance Dressing Lower Body Minimal Assistance, Additional Information pt able to don underwear seated in chair, anticipate assist with socks/shoes Toileting Contact Guard Assistance Mobility Assist Level Additional Information Bed Mobility Supine To Sit: Minimal Assistance, Additional Information to guide RLE Sit to Stand Minimal Assistance Stand to Sit Contact Guard Assistance Bed to Chair Toilet/Commode Shower Functional Mobility Contact Guard Assistance Functional Mobility Device: Wheeled Walker GOALS Patient will demonstrate progress with self-care, cognitive and/or coping needs identified to allow safe discharge to home with available support and/or physical assistance. Progress Towar (more content not included)... [facility] THERAPY NT HNO ID: [id number] Author: CARLOS ESPINO PTA Service: Physical Therapy Author Type: Principal Embedded Software Engineer Type: Therapy (PT/OT/Speech/Resp) Filed: 07/27/2024 11:05 Note Text: -- Attestation signed by Rosaura Haro, SE at 07/27/2024 5:38 PM I reviewed and agree with the documentation corresponding to this therapy visit. SIGNATURE: Rosaura Haro PT DATE: July 27, 2024 TIME: 5:38 PM -- -- Summary: PT Treat -- Physical Therapy Treatment Summary SERVICE DATE: 07/27/2024 SERVICE TIME: 1022 to 1047 ROOM: [id number] PT 6 Clicks Score: 20 Total Joint Replacement Discharge Readiness: Cleared from Physical Therapy DISCHARGE RECOMMENDATIONS Home PT Recommended Discharge Disposition Comments: s/p R TKR Recommended Discharge Equipment: No equipment needs anticipated ASSESSMENT Response to Therapy Interventions: Good Participation in Activities, Pain pt tolerated session well. pt able to safely complete curb step training and progress ambulation. pt is safe to go home with Home PT following hosptial d.c PRECAUTIONS Fall Risk, Lines/Tubes/Drains, Total Knee Replacement, Weight Bearing Restrictions Right Lower Extremity Weight Bearing Status: WBAT CURRENT HOSPITAL COURSE s/p R TKR Relevant Past Medical History: LBBB (left bundle branch block) and PVD (revascularization), asthma, GERD, anxiety HOME LIVING Patient Lives With: Spouse (and dog in ranch style home) Assistance Available: 24-Hour Entry To Home: Stairs, Without Rail Number Of Stairs Into Home: (1 into utility room and 1 into kitchen) Number Of Stairs To Bed/Bath: 0 Tub/Shower Type: tub with chair and gb Laundry: on main floor Equipment Owned: Cane, Commode- Raised, Grab Bars- Shower, Shower Chair, Walker- Wheeled PRIOR FUNCTIONAL LEVEL Within Functional Limits indep with all ADL's and IADl's, enjoys shopping with her friends SUBJECTIVE Pt agreeable to PT okay per RN to see THERAPY DIAGNOSIS Reduced mobility-other, Abnormalities of gait and mobility-other TREATMENT INTERVENTIONS Therapeutic Activity (58897), Gait Training (88968) Timed Code Treatment (minutes): 25 Skilled Treatment Time (minutes): 25 Therapeutic Activity (09070) Treatment Minutes: 15 $ Therapeutic Activity (41905) Billed Units: 1 unit Gait Training (95157) Treatment Minutes: 10 $ Gait Training (47186) Billed Units: 1 unit TRAINING AND EDUCATION PROVIDED Anatomy and Impact on Deficits, Assistive Device Use, Bed Mobility, Benefits of In-Hospital Mobility, Discharge Planning, Edema Management, Energy Conservation, Equipment, Exercise Program, Expected Functional Level, Gait Pattern, Reduction of Deviations, Modalities, Positioning, Precautions/Restrictions, Pre-gait Activities, Role of Physical Therapy, Sitting Balance, Standing Balance, Transfers, Treatment Protocol THERAPEUTIC SKILLS USED Activity Dosing, Cues for Sequencing/Proper Technique for Activity, Cuing Verbal, Cuing Visual, Facilitation of Joint Range of Motion, Management of Critical Lines, Tubes and/or Drains, Movement Facilitation, Physical Assist, Muscle Activation Facilitation, Postural Alignment Correction FUNCTIONAL STATUS Bed Mobility Supine To Sit: Additional Information PT stat herself up at EOB with RN to use bathroom upon therapist arrival Sit to Supine: Stand By Assistance, Additional Information HOB elevated.cues for sequencing. increased time to complete. pt able to stand upright for extended time to clean herself up after using commode Scooting: Contact Guard Assistance Transfers Sit To Stand: Contact Guard Assistance, Additional Information cues for hand placement , and RLE placement. Stand To Sit: Contact Guard Assistance, Additional Information cues for safe appraoach, hand placement, RLE placement and controlled descent Bed to Chair Gait Contact Guard Assistance, Additional Information pt able to progress ambualtion this session with no LOB. pt with cues to keep FWW on ground and for safe distance from FWW. pt able to safely ambulate into hallway Gait Device: Wheeled Walker General Deviations/Observations: Corine decreased, Shuffling Gait, Improper distancing from assistive device Gait Distance (feet): 50ft Gait Deviations Right Lower Extremity: Weight bearing decreased, Step length decreased, Stance time decreased Stairs Curb Step: Contact Guard Assistance, Additional Information Device: Wheeled Walker pt able to safely complete curb step training. cues given for sequencing GOALS Patient will demonstrate understanding of importance of mobility during hospital stay and resolve all fu (more content not included)... [facility] ANES POSTPROC EVALon 025 ANES POSTPROC EVAL HNO ID: [id number] Author: FÁTIMA BOOTHE MD Service: ? Author Type: Anesthesiologist Type: Anesthesia Postprocedure Evaluation Filed: 07/26/2024 14:07 Note Text: POST ANESTHESIA EVALUATION NOTE : 1950 Procedure Summary Date: 07/26/24 Room / Location: [place] [address] / [place] Anesthesia Start: 08 Anesthesia Stop: 1101 Procedure: ROBOTIC ASSISTED TOTAL KNEE ARTHROPLASTY (Right: Knee) Diagnosis: Primary osteoarthritis of right knee (Primary osteoarthritis of right knee [M17.11]) Surgeons: Bryson Dhillon MD Responsible Provider: Fátima Boothe MD Anesthesia Type: spinal ASA Status: 3 Anesthesia Type: spinal Last Vitals Vitals Value Taken Time BP 133/71 07/26/24 1400 Temp 36.3 ?C (97.3 ?F) 07/26/24 1215 Pulse 81 07/26/24 1404 Resp 19 07/26/24 1404 SpO2 97 % 07/26/24 1404 Vitals shown include unfiled device data. Post Anesthesia Patient Status Patient Evaluation: bedside. Anticipated Disposition: inpatient floor planned admission. Neurological Status: sleepy but arousable. Pulmonary Status: breathing comfortably on supplemental oxygen Airway Control: returned to baseline unsupported. Cardiovascular Status: stable. Pain Management: clinically adequate Postoperative Hydration: acceptable. Intraoperative Events: no significant anesthesia events Post Operative Nausea/Vomiting Status: no significant post operative nausea or vomiting Recommendation: continue current plan of care and pain control. Anesthesia Observations No Documentation SIGNATURE: Fátima Boothe MD PATIENT NAME: Nora Camarillo DATE: July 26, 2024 TIME: 2:05 PM CSN: [id number] [facility] ANES PRE-OPon 07-26-2024 ANES PRE-OP HNO ID: [id number] Author: FÁTIMA BOOTHE MD Service: ? Author Type: Anesthesiologist Type: Anesthesia Preprocedure Evaluation Filed: 07/26/2024 08:08 Note Text: ANESTHESIOLOGY DAY OF SURGERY NOTE : 1950 Procedure Information Date/Time: 07/26/24829 Procedure: ROBOTIC ASSISTED TOTAL KNEE ARTHROPLASTY (Right: Knee) Location: [place] [address] / [place] Surgeons: Bryson Dhillon MD Estimated body mass index is 32.54 kg/m? as calculated from the following: Height as of 06/30/24: 161.3 cm (5' 3.5). Weight as of 06/30/24: 84.6 kg (186 lb 9.6 oz). Most recent hematocrit and potassium results: Hematocrit 44.8 06/30/2024 Potassium 4.5 06/30/2024 Relevant Problems CARDIO (+) Bilateral carotid artery stenosis (+) LBBB (left bundle branch block) (+) May-Thurner syndrome GI (+) Gastroesophageal reflux disease with esophagitis (+) PUD (peptic ulcer disease) PULMONARY (+) Mild persistent asthma without complication Other (+) Arthritis of left knee I - PHYSICAL EVALUATION AIRWAY Patient intubated: No. Tracheostomy tube not present Mallampati: II. TM distance: >3 FB. Neck ROM: full ROM without neurological symptoms. Mouth opening: adequate. Short neck: no. Thick neck: no DENTAL Dental findings: teeth intact. Additional exam findings: yes. CARDIOVASCULAR Rhythm: regular Rate: normal PULMONARY Breath sounds clear to auscultation. II - ANESTHESIA PLAN ASA Score: 3 Anesthetic Plan: spinal The patient is not a current smoker. NPO Status: adequate Beta Miguel Monitoring Plan Monitoring plan: standard ASA. Post Procedure Analgesic Plan Postoperative analgesic plan: multimodal analgesia. Informed Consent Anesthetic risks, benefits, alternatives, personnel and consent discussed: yes. Patient / Responsible Libertarian agrees to proceed: yes Patient / Surrogate agrees to blood products: Yes DNR status not reviewed with patient and/or family prior to surgery. Significant changes in the patient condition since the History and Physical, not otherwise documented in primary service progress note: no. Potential Anesthesia issues that may suggest increased risk of complications or contraindication to planned procedure: none. Vitals Value Taken Time BP 176/80 07/26/24 0734 Pulse 73 07/26/24 0806 Resp 18 07/26/24 0734 Temp 36 ?C (96.8 ?F) 07/26/24 0734 SpO2 98 % 07/26/24805 Vitals shown include unfiled device data. Facility-Administered Medications as of 07/26/2024 Medication Dose Route Frequency lidocaine (PF) 10 mg/mL (1 %) 1-2 mg injection (XYLOCAINE) 0.1-0.2 mL INTRADERMAL PRN NaCl 0.9% iv flush bag 20 mL INTRAVENOUS PRN ceFAZolin iv piggyback 2 g in D5W (iso-osmotic) 100 mL (ANCEF) 2 g INTRAVENOUS Pre-Op Once [COMPLETED] acetaminophen 1,000 mg tab(s) (TYLENOL) 1,000 mg ORAL Pre-Op Once scopolamine (delivers 1 mg over 3 days) 1 Patch (TRANSDERM-SCOP) 1 Patch TRANSDERMAL ONCE scopolamine - VERIFY patch OTHER q 8 H [START ON 07/27/2024] scopolamine - REMOVE PATCH OTHER ONCE [COMPLETED] famotidine 20 mg injection (PEPCID) 20 mg INTRAVENOUS ONCE midazolam (PF) 2 mg injection (VERSED) 2 mg INTRAVENOUS ONCE Outpatient Medications as of 07/26/2024 Medication Sig mupirocin calcium (BACTROBAN NASAL NASAL) Use in the nose. albuterol HFA (VENTOLIN HFA) 90 mcg/actuation inhaler Inhale 2 Puffs as instructed every 4 hours as needed. naproxen sodium (ALEVE ORAL) Take by mouth. cholecalciferol, Vitamin D3, (VITAMIN D3) 1,250 mcg (50,000 unit) cap capsule Take 1 capsule by mouth one time a week. Zolpidem (AMBIEN CR) 12.5 mg CR tablet Take 1 tablet by mouth at bedtime as needed for sedation for up to 90 days. Patient should start on April 27, 2024. montelukast (SINGULAIR) 10 mg tablet Take 1 tablet by mouth daily at bedtime. (Patient taking differently: Take 10 mg by mouth at bedtime as needed.) pantoprazole DR (PROTONIX) 20 mg tablet Take 1 tablet by mouth two times a day as needed. nystatin (NYSTOP) powder Apply 1 application to affected area three times daily. to affected area as needed I have interviewed and examined the patient. I have reviewed the medical record and/or the pre-anesthesia evaluation, pertinent labs, and test results. This contains updated information obtained within 48 hours of Surgery/Procedure. SIGNATURE: Fátima Boothe MD PATIENT NAME: Nora Camarillo DATE: July 26, 2024 TIME: 8:07 AM CSN: [id number] Normal [facility] CONSULTon 07-26-2024 CONSULT HNO ID: [id number] Author: MARINO LU MD Service: General Internal Medicine Author Type: Physician Type: Consults Filed: 08/07/2024 21:41 Note Text: [facility]- Consultation NORA CAMARILLO : 1950 AGE: 74 SEX: F ACCTNUM: [id number] [facility] SVC: Surgical LOCATION: [facility] ATTENDING PHYSICIAN: BRYSON DHILLON DATE OF SERVICE: 07/26/2024 TIME OF SERVICE: 05:25 PM REASON FOR CONSULTATION: Postop medical. HISTORY: This is a 74-year-old female, whose significant medical history includes osteoarthritis, anxiety/depression, May-Thurner syndrome, urinary incontinence, essential tremor, osteoporosis, GERD, remote peptic ulcer disease, asthma, and history of palpitation in the past. Patient underwent elective right total knee arthroplasty. Patient had uneventful intraoperative course. Estimated blood loss 200 mL. During initial evaluation, patient was alert and oriented. Continued to have some numbness of the lower extremities. Sitting in a chair. She did well with the first round of physical therapy without experiencing any nausea, vomiting, lightheadedness, dizziness. PAST MEDICAL HISTORY: As mentioned above. PAST SURGICAL HISTORY: Includes meniscal repair of the knee, endoscopy, hernia surgery, and total abdominal hysterectomy. FAMILY HISTORY: Positive for diabetes and heart disease. SOCIAL HISTORY: She does not smoke or drink alcohol. MEDICATIONS: Her current home medication list reviewed. ALLERGIES: She is allergic to multiple medications. Her list reviewed [facility] the [facility]. REVIEW OF SYSTEMS: HEENT/Neck: She has no history of glaucoma. No history of TIA or CVA. No history of seizure disorder. No history of dysphagia, odynophagia. She has a history of asthma. She takes bronchodilator on as needed basis. No history of COPD or obstructive sleep apnea. No history recent pulmonary infection. No history of coronary artery disease, congestive heart failure. History of left bundle-branch block pattern, peripheral vascular disease and history of May-Thurner syndrome, status post iliac vein stent. History of GERD and Walter fundoplication. She does not have melenic stool. No hepatitis, colitis. No history of chronic dysuria, hematuria. Does have urinary incontinence, history of bladder sling. No history of CKD or renal calculi. No history of diabetes, hypothyroidism. No history of DVTs, paresthesia of feet, or bleeding diathesis. History of insomnia and anxiety. PHYSICAL EXAM: General: Elderly female. Alert and oriented. HEENT: Sclerae anicteric. Neck: No thyromegaly appreciated. No carotid bruit heard. No lymphadenopathy of the neck. Good carotid pulse felt. Lungs: Clear to auscultation bilaterally. No wheezing, rales present. Cardiovascular: S1, S2. Regular rhythm. No murmur, gallop, or rub appreciated. Abdomen: Soft, nontender, nondistended. No mass felt. Lower Extremities: No ankle edema noted. ASSESSMENT AND PLAN: 1. Osteoarthritis, status post right total knee arthroplasty. Deep venous thrombosis prophylaxis as ordered by Dr. Dhillon. 2. Asthma. Continue bronchodilators and Singulair. 3. Gastroesophageal reflux disease. Continue PPI. 4. May-Thurner syndrome, status post iliac vein stent placement. 5. Hold other medications for now. Thank you very much for kind referral. Continue to follow her while she is in the hospital. Marino Lu M.D. Internal Medicine SKJ:[id number] /[id number] [facility] NURSING PROGon 07-26-2024 NURSING PROG HNO ID: [id number] Author: ANDRIA ARCE RN Service: Nursing Author Type: Registered Nurse Type: Nursing Progress Note Filed: 07/26/2024 08:41 Note Text: Dr. Boothe at bedside for Right adductor nerve block. RN at bedside, pt monitored throughout, BP 157/70 Pulse 69 Temp 36 ?C (96.8 ?F) (Temporal Artery) Resp 19 SpO2 98% .Pt tolerated procedure without difficulty. 2mg Versed given after sign in. [facility] OPERATIVE NOon 07-26-2024 OPERATIVE NO HNO ID: [id number] Author: BRYSON DHILLON MD Service: Orthopaedic Surgery Author Type: Physician Type: Operative Report Filed: 07/26/2024 11:11 Note Text: Operative Report PATIENT NAME: Nora Camarillo CSN: [id number] LOG ID: [id number] Surgery Date: 07/26/2024 Surgeon(s) and Professional Application Designer(s): BRANDON Vargas - Civil Engineering Technician Surgeons and Role: * Bryson Dhillon MD - Primary No qualified orthopedic resident available BMI: Estimated body mass index is 32.54 kg/m? as calculated from the following: Height as of 06/30/24: 161.3 cm (5' 3.5). Weight as of 06/30/24: 84.6 kg (186 lb 9.6 oz). Procedure(s): Procedure(s) (LRB): ROBOTIC ASSISTED TOTAL KNEE ARTHROPLASTY (Right) Anesthesia: Choice - Anesthesia Consult Incision Start: 9:10 AM Incision Stop: 10:57 AM Attestation: I was present for and performed all critical portions of the case. trust manager assistant was necessary for safe patient positioning, sterile prepping and draping, assistance, positioning and protection, soft tissue retraction, protection of vital structures and suture management during the case, and superficial wound closure. Also critical for safe transit to the recovery room in stable condition. Preop Diagnosis: Pre-Op Diagnosis Codes: * Primary osteoarthritis of right knee [M17.11] Postop Diagnosis: Same as Pre-Op Diagnosis Codes: * Primary osteoarthritis of right knee [M17.11] Implants: Implant Name Type Inv. Item Serial No. Instrument Technologist Lot No. LRB No. Used Action CEMENT SIMPLEX P BONE RADIOPAQUE FULL DOSE STERILE - [id number] Cement / Putty CEMENT SIMPLEX P BONE RADIOPAQUE FULL DOSE STERILE [facility] [id number] Right 1 Implanted CEMENT SIMPLEX P BONE RADIOPAQUE FULL DOSE STERILE - [id number] Cement / Putty CEMENT SIMPLEX P BONE RADIOPAQUE FULL DOSE STERILE [facility] [id number] Right 1 Implanted COMPONENT TRIATHLON 3 FEMORAL CRUCIATE RETAIN CEMENTED KNEE RIGHT - [id number] Joint - Knee COMPONENT TRIATHLON 3 FEMORAL CRUCIATE RETAIN CEMENTED KNEE RIGHT [facility] ORTHOPEDICS [id number] Right 1 Implanted INSERT TRIATHLON 3 9MM TIBIAL BEARING CONDYLAR STABILIZE STERILE KNEE - [id number] Joint - Knee INSERT TRIATHLON 3 9MM TIBIAL BEARING CONDYLAR STABILIZE STERILE KNEE [facility] [id number] Right 1 Implanted BASEPLATE TRIATHLON 3 UNIVERSAL COCR TIBIAL TOTAL STABILIZE CEMENTED KNEE - [id number] Plate BASEPLATE TRIATHLON 3 UNIVERSAL COCR TIBIAL TOTAL STABILIZE CEMENTED KNEE [facility] [id number] Right 1 Implanted COMPONENT TRIATHLON 29MM X3 9MM PATELLAR ASYMMETRIC KNEE - [id number] Joint - Patella COMPONENT TRIATHLON 29MM X3 9MM PATELLAR ASYMMETRIC KNEE [facility] [id number] Right 1 Implanted TRIATHLON CEMENTED [id number] X 50MM - [id number] Joint TRIATHLON CEMENTED [id number] X 50MM ADOLFO [id number] Right 1 Implanted Problem List: ACTIVE PROBLEM LIST Diverticulosis of Large Intestine Senile Osteoporosis Mixed Hyperlipidemia Delayed Gastric Emptying Elevated Fasting Blood Sugar Gastric Diverticulum Pud (Peptic Ulcer Disease) Gastroesophageal Reflux Disease With Esophagitis Mild Persistent Asthma Without Complication Primary Insomnia Medicare Annual Wellness Visit, Subsequent Low Back Pain Essential Tremor Bilateral Carotid Artery Stenosis Arthritis of Left Knee Obesity, Class I, Bmi 30-34.9 Palpitations Medication Management Left Lateral Abdominal Pain Chronic Bilateral Low Back Pain Allergic Rhinitis Left Leg Swelling May-Thurner Syndrome Family History of Thyroid Disease Memory Impairment Anxiety and Depression Chronic Pain of Left Knee Chronic Pain of Both Ankles Mixed Incontinence Chronic Pain of Right Knee Living Will On File Advance Directive Discussed With Patient Age-Related Osteoporosis Without Current Pathological Fracture Vitamin D Deficiency Persistent Cough Second Hand Smoke Exposure Lbbb (Left Bundle Branch Block) OPERATIVE INDICATIONS: The patient has a long history of progressive right knee pain, arthritis, and degeneration; subsequent scope with subchondroplasty. Non-operative treatment has been attempted but has not improved or controlled the symptoms and pain that occurs during normal daily activities. Knee motion has also become limited and is restricting the patient. Total knee arthroplasty was recommended. The risks, benefits and potential complications of the arthroplasty surgery were discussed with the patient in detail. Specific details of the surgical procedure, hospitalization, recovery, rehabilitation, and long-term precautions were also presented. Pre-operative teaching was provided. Implant/prosthesis selection was outlined, and the many options available were explained; the final choice will be made at the time of the procedure to match the anatomy and condition of the bone, ligaments, tendons, and muscles. The patient was evaluated medically for pre-operative optimization, and risk (more content not included)... [facility] THERAPY [facility] 07-26-2024 THERAPY HNO ID: [id number] Author: CLAUDIA GONZALEZ, PT, DPT Service: Physical Therapy Author Type: Physical Therapist Type: Therapy (PT/OT/Speech/Resp) Filed: 07/26/2024 17:09 Note Text: -- Summary: PT evaluation -- Physical Therapy Evaluation Summary SERVICE DATE: 07/26/2024 SERVICE TIME: 1606 to 1659 ROOM: [id number]- PT 6 Clicks Score: 17 Total Joint Replacement Discharge Readiness: Pending Physical Therapy Clearance DISCHARGE RECOMMENDATIONS Home PT Recommended Discharge Disposition Comments: s/p R TKR Recommended Discharge Equipment: No equipment needs anticipated ASSESSMENT Response to Therapy Interventions: Good Participation in Activities, Pain Pt tolerated mobility well, does have increased pain and external cath did not catch urine which limited distance with ambulation today. Pt did require CGA to min assist with tasks. PRECAUTIONS Fall Risk, Lines/Tubes/Drains, Total Knee Replacement, Weight Bearing Restrictions Right Lower Extremity Weight Bearing Status: WBAT CURRENT HOSPITAL COURSE s/p R TKR Relevant Past Medical History: LBBB (left bundle branch block) and PVD (revascularization), asthma, GERD, anxiety HOME LIVING Patient Lives With: Spouse (and dog in ranch style home) Assistance Available: 24-Hour Entry To Home: Stairs, Without Rail Number Of Stairs Into Home: (1 into utility room and 1 into kitchen) Number Of Stairs To Bed/Bath: 0 Tub/Shower Type: tub with chair and gb Laundry: on main floor Equipment Owned: Cane, Commode- Raised, Grab Bars- Shower, Shower Chair, Walker- Wheeled PRIOR FUNCTIONAL LEVEL Within Functional Limits indep with all ADL's and IADl's, enjoys shopping with her friends SUBJECTIVE Pt agrees to PT. THERAPY DIAGNOSIS Reduced mobility-other, Abnormalities of gait and mobility-other TREATMENT INTERVENTIONS Evaluation, Therapeutic Exercise (36725), Therapeutic Activity (90185), Gait Training (18600) Timed Code Treatment (minutes): 38 Skilled Treatment Time (minutes): 38 $ Evaluation-Low (63587) Billed Units: 1 unit Therapeutic Exercise (86335) Treatment Minutes: 8 $ Therapeutic Exercise (80980) Billed Units: 1 unit Exercise Anti-Embolics (number of reps): 10 Exercise: gave reasons for performance of these ex and cues to remain on task Therapeutic Activity (98699) Treatment Minutes: 25 $ Therapeutic Activity (51706) Billed Units: 2 units Gait Training (31946) Treatment Minutes: 5 $ Gait Training (67884) Billed Units: 0 units TRAINING AND EDUCATION PROVIDED Anatomy and Impact on Deficits, Assistive Device Use, Bed Mobility, Benefits of In-Hospital Mobility, Discharge Planning, Edema Management, Energy Conservation, Equipment, Exercise Program, Expected Functional Level, Gait Pattern, Reduction of Deviations, Modalities, Positioning, Precautions/Restrictions, Pre-gait Activities, Role of Physical Therapy, Sitting Balance, Standing Balance, Transfers, Treatment Protocol THERAPEUTIC SKILLS USED Activity Dosing, Cues for Sequencing/Proper Technique for Activity, Cuing Verbal, Cuing Visual, Facilitation of Joint Range of Motion, Management of Critical Lines, Tubes and/or Drains, Movement Facilitation, Physical Assist, Muscle Activation Facilitation, Postural Alignment Correction FUNCTIONAL STATUS Bed Mobility Supine To Sit: Minimal Assistance, Additional Information therapist assisted with right LE, HOB elevated, cues for pushing through hands Sit to Supine: Additional Information pt was left sitting in chair Scooting: Contact Guard Assistance Transfers Sit To Stand: Contact Guard Assistance, Additional Information demo prior to pt's performance, cues for hand placement and to keep right LE extended in front of her Stand To Sit: Contact Guard Assistance, Additional Information cues for hand placement and to keep right leg extended during descent into chair Bed to Chair Minimal Assistance, Additional Information Bed To Chair Transfer Type: Stepping Bed To Chair Transfer Equipment: Wheeled Walker, Gait Belt cues for sequence and IV in tow Gait Stairs ROM: R knee -5 degrees while supine, knee flexion 60 degrees sitting in chair STRENGTH Strength Limitation Comments: right not formally MMT secondary to recent surgery and pain, demonstrates WFL through WB during ambulation and is able to demo AP, QS, and GS while supine BALANCE Static Sitting Balance: Normal Dynamic Sitting Balance: Normal Static Standing Balance: Fair Dynamic Standing Balance: Fair GOALS Patient will demonstrate understanding of importance of mobility during hospital stay and resolve all functional needs identified. Able to Perform HEP with: Supervision Transfer Supine to/from Sit with: Supervision Transfer Sit to/from Stand with: Supervision Ambulate (more content not included)... [facility] NORA CAMARILLO ([id number]) [address] Date Time Provider Department 07/24/24 BRYSON DHILLON During your visit today, we recorded the following information about you: Lissa Rosa LPN 07/24/2024 9:12 AM Signed Patient called and states she has a sinus infection that started last and is getting better. She is wondering if you still wanted to keep her surgery on Wednesday? She just has some congestion, denies fever and has not been on any antibiotics for it. CLARE Arroyo Colleen, DANIEL 07/24/2024 9:40 AM Signed Spoke with pt. She states that she had a sinus headache/congestion that started last . She has been taking a prescribed allergy medication at night and that seems to have cleared things out. She has been using her inhaler (hx of asthma) as a precaution. She states her chest is clear and any drainage is clear. She's just really worried about her TKA on Wednesday and wasn't sure if this would push her surgery date back??? Rebekah Eduardo PA-C 07/24/2024 9:46 AM Signed Spoke with patient over the phone, she has had some occasional congestion and intermittent coughing. Symptoms seem worse over the past weekend but have improved. She is concerned about her upcoming surgery. Things seem to be getting better, we discussed having her stay on the surgery schedule, certainly if her cough or congestion get worse I would like her to give me a call back and we can discuss again. She did start taking her montelukast, has been using her inhaler and is staying out of the cold air. Allergies As of Date: 07/24/2024 Noted Allergy Reaction MORPHINE 03/03/2017 8 - GI Upset Comments: nausea NSAIDS (NON-STEROIDAL ANTI-INFLAM*10/31/2020 14 - Other: See Comments Comments: Hx of stomach ulcers ADVAIR DISKUS (FLUTICASONE PROPIO*05/14/2011 5 - Intolerance Comments: Hurts throat BENTYL (DICYCLOMINE HCL) 10/03/2009 16 - Unknown CELEBREX (CELECOXIB) 02/08/2006 8 - GI Upset DICYCLOMINE 09/10/2011 14 - Other: See Comments Comments: Dry mouth, blurred vision, loss of taste ESTRACE (ESTRADIOL) 03/17/2005 9 - Itching EVISTA (RALOXIFENE HCL) 03/17/2005 9 - Itching MACROBID (NITROFURANTOIN MONOHYD/*07/22/2017 14 - Other: See Comments Comments: Hair loss MEDROL (METHYLPREDNISOLONE) 09/27/2014 14 - Other: See Comments Comments: Dry mouth, sore throat. MOBIC (MELOXICAM) 06/05/2019 5 - Intolerance OXYCONTIN (OXYCODONE HCL) 07/19/2015 9 - Itching PENICILLINS 03/17/2005 9 - Itching PROZAC (FLUOXETINE HCL) 03/17/2005 16 - Unknown SULFAMETHIZOLE 11/17/2019 8 - GI Upset SYMAX-SL (HYOSCYAMINE SULFATE) 10/03/2009 16 - Unknown Date Reviewed: 07/09/2024 Reviewed by: Bryson Dhillon MD - Fully Assessed Prescriptions as of 07/24/2024 - cholecalciferol, Vitamin D3, (VITAMIN D3) 1,250 mcg (50,000 unit) cap capsule Take 1 capsule by mouth one time a week. - albuterol HFA (VENTOLIN HFA) 90 mcg/actuation inhaler Inhale 2 Puffs as instructed every 4 hours as needed. - Zolpidem (AMBIEN CR) 12.5 mg CR tablet Take 1 tablet by mouth at bedtime as needed for sedation for up to 90 days. Patient should start on April 27, 2024. - montelukast (SINGULAIR) 10 mg tablet Take 1 tablet by mouth daily at bedtime. - pantoprazole DR (PROTONIX) 20 mg tablet Take 1 tablet by mouth two times a day as needed. - nystatin (NYSTOP) powder Apply 1 application to affected area three times daily. to affected area as needed Problem List As Of Date 07/24/2024 Noted Resolved Unspecified constipation [K59.00] 12/22/2011 Diverticulosis of large intestine [K57.30] Senile osteoporosis [M81.0] 01/05/2006 Diaphragmatic hernia without mention of obstruc*01/24/2007 07/22/2017 Routine general medical examination at [facility]*11/20/2009 12/22/2011 Class: Chronic Routine gynecological examination [Z01.419] 11/20/2009 12/22/2011 Class: Chronic Diarrhea [R19.7] 11/20/2009 12/22/2011 Mixed hyperlipidemia [E78.2] 11/20/2009 Delayed gastric emptying [K30] 09/18/2011 Non morbid obesity [E66.9] 08/20/2015 07/22/2017 Encounter for gynecological examination without*12/06/2015 06/15/2019 Encounter for screening for cardiovascular diso*12/06/2015 06/15/2019 Colon cancer screening [Z12.11] 12/06/2015 06/15/2019 Elevated fasting blood sugar [R73.01] 12/10/2015 Chronic bilateral low back pain [M54.50, G89.29]01/01/2016 06/15/2019 Gastric diverticulum [K31.4] 03/13/2016 PUD (peptic ulcer disease) [K27.9] 03/13/2016 Gastroesophageal reflux disease with esophagiti*03/13/2016 Mild persistent asthma without complication [J4*07/22/2016 Hiatal hernia [K44.9] 07/22/2016 06/15/2019 Primary insomnia [F51.01] 07/22/2016 Chronic pain of left knee [M25.562, G89.29] 07/22/2016 06/15/2019 Medicare annual wellness visit, subsequent [Z00*01/21/2017 Well adult exam [Z00.00] 01/21/2017 06/15/2019 Left hip giancarlo (more content not included)... Normal [facility] CARDIAC PERF STRESS/PHARM on 07-07-2024 NM CARDIAC PERF STRESS/PHARM * * *Final Report* * * DATE OF EXAM: Jul 07 2024 2:46PM AMINTA 0006 - NM CARDIAC PERF STRESS/PHARM / PROCEDURE REASON: R94.31-Abnormal electrocardiogram * * * * Physician Interpretation * * * * Stress Hr Representative Report: [facility] Date of service: 07/07/2024 12:52:17 PM Supervising physician: Lanre Landa MD PATIENT: Name: MRS. NORA CAMARILLO Age: 74 years Gender: F The supervising physician was in the department and immediately available. * * * Final * * * PATIENT: Name: MRS. NORA CAMARILLO Age: 74 years Gender: F CONCLUSIONS: 1. SPECT Perfusion Study: Normal. 2. There is no scintigraphic evidence for inducible ischemia. 3. No evidence of scarred myocardium. Fixed defect of the apex with normal wall motion consistent with breast attenuation artifact. 4. Left ventricle is normal in size. The left ventricle systolic function is normal. 5. Right ventricle is normal in size. The right ventricle systolic function is normal. 6. This is a low risk scan. Gated Stress IR:3D LVEF % 63 Prior Study Comparison Prior nuclear cardiology exam was performed on 02.01.17. Nuclear Med Report:1-Day Gated SPECT Myocardial Perfusion with Regadenoson Stress: Myocardial perfusion imaging was performed at rest 30 minutes following the IV injection of the radiotracer. The patient received 0.4 mg of regadenoson, via rapid IV push, immediately followed by radiotracer IV. Gated post stress tomographic imaging was performed 30 to 60 minutes later. See administered radiotracer and doses below. [facility] Date of service: 07/07/2024 12:52:17 PM Ordering Physician: YARI RINCON. Requesting Physician: Indication: Assessment for suspected CAD Interpreting physician: Sergo Purvis MD Height: 161.29 cm BSA: 1.95 m? Weight: 84.82 kg BMI: 32.6 kg/m? Exam Type: Rest Stress Radiopharm: Tc-99m Tetrofosmin Tc-99m Tetrofosmin Dosage(mCi): 13.3 36 Atten Correction: not performed not performed Stress Agent: Regadenoson 0.4mg Supply provided from [facility] Resting Blood Press: 143/89 mmHg Image Quality The overall study imaging quality was deemed to be fair. FINDINGS: Left Ventricle Wall Motion: 1 - All segments are normal. Stress IR:3D - Rest IR:3D - Gated Stress IR:3D - Reversibility - 1 Stress IR:3D Gated Stress IR:3D LVEF: 63 % ED Volume: 94 ml ES Volume: 35 ml TID: 0.98 Perfusion Findings Stress IR:3D - Summed Score=1 There is a mild perfusion defect in the apex. All remaining scored segments show normal perfusion. Rest IR:3D - Summed Score=1 There is a mild perfusion defect in the apex. All remaining scored segments show normal perfusion. Stress IR:3D Rest IR:3D Summed Score=1 Summed Score=1 LEFT VENTRICLE The left ventricle is normal in size. Left ventricular systolic function is normal. Right Ventricle The right ventricle is normal in size. Right ventricle systolic function is normal. Stress Test Findings: There is no scintigraphic evidence for inducible ischemia. There is no evidence of scarring. * * * Final * * * Stress ECG Report: [facility] Date of service: 07/07/2024 12:52:17 PM Ordering physician: YARI RINCON pipe recovery specialist: Jenifer Paz Professional Application Designer: Marissa Coelho Interpreting physician: Lanre Landa MD Patient name: MRS. NORA CAMARILLO Age: 74 years Gender: F Height: 161.29 cm BSA: 1.95 m? Weight: 84.82 kg BMI: 32.6 kg/m? Indication: Abnormal resting ECG Stress ECG Conclusion: Conclusion: Non-diagnostic due to LBBB Stress ECG Summary: The patient's resting heart rate was 59 bpm and blood pressure was 143/89 mmHg. The test was terminated due to end of protocol. Other symptoms during the test included SOB and nausea. The maximum heart rate was 88 bpm, which is 60% of the predicted heart rate for age. Peak blood pressure was 150/64 mmHg. The double product achieved [place] [address]. Medications: Last Used ALBUTEROL INHALER AMBIEN SINGULAIR PANTOPRAZOLE Resting ECG: Sinus Bradycardia and LBBB Symptoms at rest: No symptoms Pharamcologic Protocol: Regadenoson Stress Exercise Table: +-----+--+---+---+ Stage HR SYS LELAND +-----+--+---+---+ 1 85 +-----+--+---+---+ 2 88 150 64 +-----+--+---+---+ 3 78 +-----+--+---+---+ 4 80 150 67 +-----+--+---+---+ +-----+--+---+---+ HR SYS LELAND +-----+--+---+---+ Final 88 150 64 +-----+--+---+---+ Recovery Table: +------+ +--+---+ ---+ Stage Time (min) HR SYS LELAND +------+ +--+---+ (more content not included)... [facility] Heart Perfusion W stress and W radionuclide Johnathon 07-07-2024 * * *Final Report* * * DATE OF EXAM: Jul 07 2024 2:46PM AMINTA 0006 - ANUJ CARDIAC PERF STRESS/PHARM / PROCEDURE REASON: R94.31-Abnormal electrocardiogram * * * * Physician Interpretation * * * * Stress Hr Representative Report: [facility] Date of service: 07/07/2024 12:52:17 PM Supervising physician: Lanre Landa MD PATIENT: Name: MRS. NORA CAMARILLO Age: 74 years Gender: F The supervising physician was in the department and immediately available. * * * Final * * * PATIENT: Name: MRS. NORA CAMARILLO Age: 74 years Gender: F CONCLUSIONS: 1. SPECT Perfusion Study: Normal. 2. There is no scintigraphic evidence for inducible ischemia. 3. No evidence of scarred myocardium. Fixed defect of the apex with normal wall motion consistent with breast attenuation artifact. 4. Left ventricle is normal in size. The left ventricle systolic function is normal. 5. Right ventricle is normal in size. The right ventricle systolic function is normal. 6. This is a low risk scan. Gated Stress IR:3D LVEF % 63 Prior Study Comparison Prior nuclear cardiology exam was performed on 02.01.17. Nuclear Med Report:1-Day Gated SPECT Myocardial Perfusion with Regadenoson Stress: Myocardial perfusion imaging was performed at rest 30 minutes following the IV injection of the radiotracer. The patient received 0.4 mg of regadenoson, via rapid IV push, immediately followed by radiotracer IV. Gated post stress tomographic imaging was performed 30 to 60 minutes later. See administered radiotracer and doses below. [facility] Date of service: 07/07/2024 12:52:17 PM Ordering Physician: YARI RINCON. Requesting Physician: Indication: Assessment for suspected CAD Interpreting physician: Sergo Purvis MD Height: 161.29 cm BSA: 1.95 m Weight: 84.82 kg BMI: 32.6 kg/m Exam Type: Rest Stress Radiopharm: Tc-99m Tetrofosmin Tc-99m Tetrofosmin Dosage(mCi): 13.3 36 Atten Correction: not performed not performed Stress Agent: Regadenoson 0.4mg Supply provided from [facility] Resting Blood Press: 143/89 mmHg Image Quality The overall study imaging quality was deemed to be fair. FINDINGS: Left Ventricle Wall Motion: 1 - All segments are normal. Stress IR:3D - Rest IR:3D - Gated Stress IR:3D - Reversibility - 1 Stress IR:3D Gated Stress IR:3D LVEF: 63 % ED Volume: 94 ml ES Volume: 35 ml TID: 0.98 Perfusion Findings Stress IR:3D - Summed Score=1 There is a mild perfusion defect in the apex. All remaining scored segments show normal perfusion. Rest IR:3D - Summed Score=1 There is a mild perfusion defect in the apex. All remaining scored segments show normal perfusion. Stress IR:3D Rest IR:3D Summed Score=1 Summed Score=1 LEFT VENTRICLE The left ventricle is normal in size. Left ventricular systolic function is normal. Right Ventricle The right ventricle is normal in size. Right ventricle systolic function is normal. Stress Test Findings: There is no scintigraphic evidence for inducible ischemia. There is no evidence of scarring. * * * Final * * * Stress ECG Report: [facility] Date of service: 07/07/2024 12:52:17 PM Ordering physician: YARI RINCON pipe recovery specialist: Jenifer Paz Professional Application Designer: Marissa Coelho Interpreting physician: Lanre Landa MD Patient name: MRS. NORA CAMARILLO Age: 74 years Gender: F Height: 161.29 cm BSA: 1.95 m Weight: 84.82 kg BMI: 32.6 kg/m Indication: Abnormal resting ECG Stress ECG Conclusion: Conclusion: Non-diagnostic due to LBBB Stress ECG Summary: The patient's resting heart rate was 59 bpm and blood pressure was 143/89 mmHg. The test was terminated due to end of protocol. Other symptoms during the test included SOB and nausea. The maximum heart rate was 88 bpm, which is 60% of the predicted heart rate for age. Peak blood pressure was 150/64 mmHg. The double product achieved was [address]. Medications: Last Used ALBUTEROL INHALER AMBIEN SINGULAIR PANTOPRAZOLE Resting ECG: Sinus Bradycardia and LBBB Symptoms at rest: No symptoms Pharamcologic Protocol: Regadenoson Stress Exercise Table (more content not included)... [facility] Provider, Raffi Terry [facility] - 07/07/2024 * * *Final Report* * * DATE OF EXAM: Jul 07 2024 2:46PM AMINTA 0006 - NM CARDIAC PERF STRESS/PHARM / PROCEDURE REASON: R94.31-Abnormal electrocardiogram * * * * Physician Interpretation * * * * Stress Hr Representative Report: [facility] Date of service: 07/07/2024 12:52:17 PM Supervising physician: Lanre Landa MD PATIENT: Name: MRS. NORA CAMARILLO Age: 74 years Gender: F The supervising physician was in the department and immediately available. * * * Final * * * PATIENT: Name: MRS. NORA CAMARILLO Age: 74 years Gender: F CONCLUSIONS: 1. SPECT Perfusion Study: Normal. 2. There is no scintigraphic evidence for inducible ischemia. 3. No evidence of scarred myocardium. Fixed defect of the apex with normal wall motion consistent with breast attenuation artifact. 4. Left ventricle is normal in size. The left ventricle systolic function is normal. 5. Right ventricle is normal in size. The right ventricle systolic function is normal. 6. This is a low risk scan. Gated Stress IR:3D LVEF % 63 Prior Study Comparison Prior nuclear cardiology exam was performed on 02.01.17. Nuclear Med Report:1-Day Gated SPECT Myocardial Perfusion with Regadenoson Stress: Myocardial perfusion imaging was performed at rest 30 minutes following the IV injection of the radiotracer. The patient received 0.4 mg of regadenoson, via rapid IV push, immediately followed by radiotracer IV. Gated post stress tomographic imaging was performed 30 to 60 minutes later. See administered radiotracer and doses below. [facility] Date of service: 07/07/2024 12:52:17 PM Ordering Physician: YARI RINCON. Requesting Physician: Indication: Assessment for suspected CAD Interpreting physician: Sergo Purvis MD Height: 161.29 cm BSA: 1.95 m Weight: 84.82 kg BMI: 32.6 kg/m Exam Type: Rest Stress Radiopharm: Tc-99m Tetrofosmin Tc-99m Tetrofosmin Dosage(mCi): 13.3 36 Atten Correction: not performed not performed Stress Agent: Regadenoson 0.4mg Supply provided from [facility] Resting Blood Press: 143/89 mmHg Image Quality The overall study imaging quality was deemed to be fair. FINDINGS: Left Ventricle Wall Motion: 1 - All segments are normal. Stress IR:3D - Rest IR:3D - Gated Stress IR:3D - Reversibility - 1 Stress IR:3D Gated Stress IR:3D LVEF: 63 % ED Volume: 94 ml ES Volume: 35 ml TID: 0.98 Perfusion Findings Stress IR:3D - Summed Score=1 There is a mild perfusion defect in the apex. All remaining scored segments show normal perfusion. Rest IR:3D - Summed Score=1 There is a mild perfusion defect in the apex. All remaining scored segments show normal perfusion. Stress IR:3D Rest IR:3D Summed Score=1 Summed Score=1 LEFT VENTRICLE The left ventricle is normal in size. Left ventricular systolic function is normal. Right Ventricle The right ventricle is normal in size. Right ventricle systolic function is normal. Stress Test Findings: There is no scintigraphic evidence for inducible ischemia. There is no evidence of scarring. * * * Final * * * Stress ECG Report: [facility] Date of service: 07/07/2024 12:52:17 PM Ordering physician: YARI RINCON pipe recovery specialist: Jenifer Paz Professional Application Designer: Marissa Coelho Interpreting physician: Lanre Landa MD Patient name: MRS. NORA CAMARILLO Age: 74 years Gender: F Height: 161.29 cm BSA: 1.95 m Weight: 84.82 kg BMI: 32.6 kg/m Indication: Abnormal resting ECG Stress ECG Conclusion: Conclusion: Non-diagnostic due to LBBB Stress ECG Summary: The patient's resting heart rate was 59 bpm and blood pressure was 143/89 mmHg. The test was terminated due to end of protocol. Other symptoms during the test included SOB and nausea. The maximum heart rate was 88 bpm, which is 60% of the predicted heart rate for age. Peak blood pressure was 150/64 mmHg. The double product achieved was [address]. Medications: Last Used ALBUTEROL INHALER AMBIEN SINGULAIR PANTOPRAZOLE Resting ECG: Sinus Bradycardia and LBBB Symptoms at rest: No symptoms Pharamcologic Protocol: Regadenoson Stress Exercise Table: +-----+--+---+---+ Stage HR SYS LELAND +-----+--+---+---+ 1 85 +-----+--+---+---+ 2 88 150 64 +-----+--+---+---+ 3 78 +-----+--+---+---+ 4 80 150 67 +-----+--+---+---+ +-----+--+---+---+ HR SYS LELAND +-----+--+ (more content not included)... [facility] Radiology Study observation (narrative) [facility] NM Heart Perfusion W stress and W radionuclide IVOrdered By: [facility]cf Provider on 07-07-2024 [facility] Jimbo 07-06-2024 HAIM Telephone (CDLBME) -- NORA CAMARILLO ([id number]) 1950 [address]* Date Time Provider Department 07/06/24 SHAKILA SOTELO During your visit today, we recorded the following information about you: Shakila Sotelo RN 07/06/2024 3:17 PM Signed Spoke to pt regarding reminder and instructions for stress test tomorrow. This included where to check in, length of test and no caffeine for 12 hours prior to test. Allergies As of Date: 07/06/2024 Noted Allergy Reaction MORPHINE 03/03/2017 8 - GI Upset Comments: nausea NSAIDS (NON-STEROIDAL ANTI-INFLAM*10/31/2020 14 - Other: See Comments Comments: Hx of stomach ulcers ADVAIR DISKUS (FLUTICASONE PROPIO*05/14/2011 5 - Intolerance Comments: Hurts throat BENTYL (DICYCLOMINE HCL) 10/03/2009 16 - Unknown CELEBREX (CELECOXIB) 02/08/2006 8 - GI Upset DICYCLOMINE 09/10/2011 14 - Other: See Comments Comments: Dry mouth, blurred vision, loss of taste ESTRACE (ESTRADIOL) 03/17/2005 9 - Itching EVISTA (RALOXIFENE HCL) 03/17/2005 9 - Itching MACROBID (NITROFURANTOIN MONOHYD/*07/22/2017 14 - Other: See Comments Comments: Hair loss MEDROL (METHYLPREDNISOLONE) 09/27/2014 14 - Other: See Comments Comments: Dry mouth, sore throat. MOBIC (MELOXICAM) 06/05/2019 5 - Intolerance OXYCONTIN (OXYCODONE HCL) 07/19/2015 9 - Itching PENICILLINS 03/17/2005 9 - Itching PROZAC (FLUOXETINE HCL) 03/17/2005 16 - Unknown SULFAMETHIZOLE 11/17/2019 8 - GI Upset SYMAX-SL (HYOSCYAMINE SULFATE) 10/03/2009 16 - Unknown Date Reviewed: 07/03/2024 Reviewed by: Yari Rincon APRN.ECHOCARDIOGRAPHER - Fully Assessed Reason for Visit: Reminder Call [[id number]] Prescriptions as of 07/06/2024 - mupirocin (BACTROBAN) 2 % ointment Apply 0.5 inch with cotton swab (Q-tip) to each nostril in the morning and evening for 5 days prior to and including day of surgery. - cholecalciferol, Vitamin D3, (VITAMIN D3) 1,250 mcg (50,000 unit) cap capsule Take 1 capsule by mouth one time a week. - albuterol HFA (VENTOLIN HFA) 90 mcg/actuation inhaler Inhale 2 Puffs as instructed every 4 hours as needed. - Zolpidem (AMBIEN CR) 12.5 mg CR tablet Take 1 tablet by mouth at bedtime as needed for sedation for up to 90 days. Patient should start on April 27, 2024. - montelukast (SINGULAIR) 10 mg tablet Take 1 tablet by mouth daily at bedtime. - pantoprazole DR (PROTONIX) 20 mg tablet Take 1 tablet by mouth two times a day as needed. - nystatin (NYSTOP) powder Apply 1 application to affected area three times daily. to affected area as needed Problem List As Of Date 07/06/2024 Noted Resolved Unspecified constipation [K59.00] 12/22/2011 Diverticulosis of large intestine [K57.30] Senile osteoporosis [M81.0] 01/05/2006 Diaphragmatic hernia without mention of obstruc*01/24/2007 07/22/2017 Routine general medical examination at a [facility]*11/20/2009 12/22/2011 Class: Chronic Routine gynecological examination [Z01.419] 11/20/2009 12/22/2011 Class: Chronic Diarrhea [R19.7] 11/20/2009 12/22/2011 Mixed hyperlipidemia [E78.2] 11/20/2009 Delayed gastric emptying [K30] 09/18/2011 Non morbid obesity [E66.9] 08/20/2015 07/22/2017 Encounter for gynecological examination without*12/06/2015 06/15/2019 Encounter for screening for cardiovascular diso*12/06/2015 06/15/2019 Colon cancer screening [Z12.11] 12/06/2015 06/15/2019 Elevated fasting blood sugar [R73.01] 12/10/2015 Chronic bilateral low back pain [M54.50, G89.29]01/01/2016 06/15/2019 Gastric diverticulum [K31.4] 03/13/2016 PUD (peptic ulcer disease) [K27.9] 03/13/2016 Gastroesophageal reflux disease with esophagiti*03/13/2016 Mild persistent asthma without complication [J4*07/22/2016 Hiatal hernia [K44.9] 07/22/2016 06/15/2019 Primary insomnia [F51.01] 07/22/2016 Chronic pain of left knee [M25.562, G89.29] 07/22/2016 06/15/2019 Medicare annual wellness visit, subsequent [Z00*01/21/2017 Well adult exam [Z00.00] 01/21/2017 06/15/2019 Left hip pain [M25.552] 09/14/2017 06/15/2019 Low back pain [M54.50] 09/14/2017 Essential tremor [G25.0] 01/19/2018 Bilateral carotid artery stenosis [I65.23] 01/03/2019 Left lateral abdominal pain [R10.9] 02/15/2019 06/15/2019 Arthritis of left knee [M17.12] 02/19/2019 Obesity, Class I, BMI 30-34.9 [E66.811] 06/15/2019 Palpitations [R00.2] 08/25/2019 Medication management [Z79.899] 08/25/2019 Left lateral abdominal pain [R10.9] 02/15/2019 Chronic bilateral low back pain [M54.50, G89.29]01/01/2016 Allergic rhinitis [J30.9] Left leg swelling [M79.89] 02/27/2020 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 Normal [facility] CBC W Auto Differential pane l (Bld)on 06-30-2024 Basophils (Bld) [#/Vol] 0.05 10*3/uL [facility] Basophils/100 WBC (Bld) 0.9 % [facility] Differential cell count method Nom (Bld) Auto [facility] Eosinophils (Bld) [#/Vol] 0.41 10*3/uL [facility] Eosinophils/100 WBC (Bld) 7.0 % [facility] Erythrocyte distribution width (RBC) [Ratio] 12.8 % 11.5 - 15.0 % [facility] Hematocrit (Bld) [Volume fraction] 44.8 % 36.0 - 46.0 % [facility] Hemoglobin (Bld) [Mass/Vol] 15.0 g/dL 11.5 - 15.5 g/dL [facility] Immature granulocytes (Bld) [#/Vol] [facility] Immature granulocytes/100 WBC (Bld) 0.2 % [facility] Lymphocytes (Bld) [#/Vol] 2.50 10*3/uL [facility] Lymphocytes/100 WBC (Bld) 42.8 % [facility] MCH (RBC) [Entitic mass] 31.3 pg 26.0 - 34.0 pg [facility] MCHC (RBC) [Mass/Vol] 33.5 g/dL 30.5 - 36.0 g/dL [facility] MCV (RBC) [Entitic vol] 93.3 fL 80.0 - 100.0 fL [facility] Monocytes (Bld) [#/Vol] 0.82 10*3/uL [facility] Monocytes/100 WBC (Bld) 14.0 % [facility] Neutrophils (Bld) [#/Vol] 2.05 10*3/uL [facility] Neutrophils/100 WBC (Bld) 35.1 % [facility] Nucleated RBC (Bld) [#/Vol] [facility] Nucleated RBC/100 WBC (Bld) [Ratio] 0.0 % /100 WBC [facility] Platelet mean volume (Bld) [Entitic vol] 10.4 fL 9.0 - 12.7 fL [facility] Platelets (Bld) [#/Vol] 335 10*3/uL [facility] RBC (Bld) [#/Vol] 4.80 10*6/uL 3.90 - 5.2 0 m/uL [facility] WBC (Bld) [#/Vol] 5.84 10*3/uL [facility] Basophils (Bld) [#/Vol] 0.05 10*3/uL Normal <0.11 [facility] Comment on above: Order Comment: Speci men Type: BLOOD SPECIMENOrdering Facility: [facility] Address: [address] [place] [address] Performed By: #### 5 7021-8 ####[facility] [id number] [place] [address] [place] Basophils/100 WBC (Bld) 0.9 % Normal [facility] Comment on above: Order Comment: Speci men Type: BLOOD SPECIMENOrdering Facility: [facility] Address: [address] [place] [address] Performed By: #### 5 7021-8 ####[facility] [id number] [place] [address] [place] Differential cell count method Nom (Bld) Auto Normal [facility] Comment on above: Order Comment: Speci men Type: BLOOD SPECIMENOrdering Facility: [facility] Address: [address] [place] [address] Performed By: #### 5 7021-8 ####[facility] [id number] [place] [address] [place] Eosinophils (Bld) [#/Vol] 0.41 10*3/uL Normal <0.46 [facility] Comment on above: Order Comment: Speci men Type: BLOOD SPECIMENOrdering Facility: [facility] Address: [address] [place] [address] Performed By: #### 5 7021-8 ####[facility] [id number] [place] [address] [place] Eosinophils/100 WBC (Bld) 7.0 % Normal [facility] Comment on above: Order Comment: Speci men Type: BLOOD SPECIMENOrdering Facility: [facility] Address: [address] [place] [address] Performed By: #### 5 7021-8 ####[facility] [id number] [place] [address] [place] Erythrocyte distribution width (RBC) [Ratio] 12.8 % Normal 11.5-15.0 [facility] Comment on above: Order Comment: Speci men Type: BLOOD SPECIMENOrdering Facility: [facility] Address: [address] [place] [address] Performed By: #### 5 7021-8 ####[facility] [id number] [place] [address] [place] Hematocrit (Bld) [Volume fraction] 44.8 % Normal 36.0-46.0 [facility] Comment on above: Order Comment: Speci men Type: BLOOD SPECIMENOrdering Facility: [facility] Address: [address] [place] [address] Performed By: #### 5 7021-8 ####[facility] [id number] [place] [address] [place] Hemoglobin (Bld) [Mass/Vol] 15.0 g/dL Normal 11.5-15.5 [facility] Comment on above: Order Comment: Speci men Type: BLOOD SPECIMENOrdering Facility: [facility] Address: [address] [place], [place] [address] Performed By: #### 5 7021-8 ####[facility] [id number] [place] [address] [place] Immature granulocytes (Bld) [#/Vol] 10*3/uL Normal <0.10 [facility] Comment on above: Order Comment: Speci men Type: BLOOD SPECIMENOrdering Facility: [facility] Address: [address] [place] [address] Performed By: #### 5 7021-8 ####[facility] CATIEWNCLIA [id number] [address] [facility] Immature granulocytes/100 WBC (Bld) 0.2 % Normal [facility] Comment on above: Order Comment: Speci men Type: BLOOD SPECIMENOrdering Facility: [facility] Address: [address] [place] [address] Performed By: #### 5 7021-8 ####[facility] [id number] [place] [address] [place] Lymphocytes (Bld) [#/Vol] 2.50 10*3/uL Normal 1.00-4.00 [facility] Comment on above: Order Comment: Speci men Type: BLOOD SPECIMENOrdering Facility: [facility] Address: [address] [place] [address] Performed By: #### 5 7021-8 ####[facility] [id number] [address] [place] Lymphocytes/100 WBC (Bld) 42.8 % Normal [facility] Comment on above: Order Comment: Speci men Type: BLOOD SPECIMENOrdering Facility: [facility] Address: [address] [place] [address] Performed By: #### 5 7021-8 ####[facility] [id number] [place] [address] [place] MCH (RBC) [Entitic mass] 31.3 pg Normal 26.0-34.0 [facility] Comment on above: Order Comment: Speci men Type: BLOOD SPECIMENOrdering Facility: [facility] Address: [address] [place] [address] Performed By: #### 5 7021-8 ####[facility] [id number] [place] [address] [place] MCHC (RBC) [Mass/Vol] 33.5 g/dL Normal 30.5-36.0 [facility] Comment on above: Order Comment: Speci men Type: BLOOD SPECIMENOrdering Facility: [facility] Address: [address] [place] [address] Performed By: #### 5 7021-8 ####[facility] [id number] [place] [address] [place] MCV (RBC) [Entitic vol] 93.3 fL Normal 80.0-100.0 [facility] Comment on above: Order Comment: Speci men Type: BLOOD SPECIMENOrdering Facility: [facility] Address: [address] [place] [address] Performed By: #### 5 7021-8 ####[facility] [id number] [place] [address] [place] Monocytes (Bld) [#/Vol] 0.82 10*3/uL Normal <0.87 [facility] Comment on above: Order Comment: Speci men Type: BLOOD SPECIMENOrdering Facility: [facility] Address: [address] [place] [address] Performed By: #### 5 7021-8 ####[facility] [id number] [place] [address] [place] Monocytes/100 WBC (Bld) 14.0 % Normal [facility] Comment on above: Order Comment: Speci men Type: BLOOD SPECIMENOrdering Facility: [facility] Address: [address] [place] [address] Performed By: #### 5 7021-8 ####[facility] [id number] [place] [address] [place] Neutrophils (Bld) [#/Vol] 2.05 10*3/uL Normal 1.45-7.50 [facility] Comment on above: Order Comment: Speci men Type: BLOOD SPECIMENOrdering Facility: [facility] Address: [address] [place] [address] Performed By: #### 5 7021-8 ####[facility] [id number] [place] [address] [place] Neutrophils/100 WBC (Bld) 35.1 % Normal [facility] Comment on above: Order Comment: Speci men Type: BLOOD SPECIMENOrdering Facility: [facility] Address: [address] [place] [address] Performed By: #### 5 7021-8 ####[facility] [id number] [place] [address] [place] Nucleated RBC (Bld) [#/Vol] 10*3/uL Normal <0.01 [facility] Comment on above: Order Comment: Speci men Type: BLOOD SPECIMENOrdering Facility: [facility] Address: [address] [place] [address] Performed By: #### 5 7021-8 ####[facility] [id number] [place] [address] [place] Nucleated RBC/100 WBC (Bld) [Ratio] 0.0 /100 WBC Normal [facility] Comment on above: Order Comment: Speci men Type: BLOOD SPECIMENOrdering Facility: [facility] Address: [address] [place] [address] Performed By: #### 5 7021-8 ####[facility] [id number] [place] [address] [place] Platelet mean volume (Bld) [Entitic vol] 10.4 fL Normal 9.0-12.7 [facility] Comment on above: Order Comment: Speci men Type: BLOOD SPECIMENOrdering Facility: [facility] Address: [address] [place] [address] Performed By: #### 5 7021-8 ####[facility] YUDITHNCLIA [id number] [place] [address] [place] Platelets (Bld) [#/Vol] 335 10*3/uL Normal 150-400 [facility] Comment on above: Order Comment: Speci men Type: BLOOD SPECIMENOrdering Facility: [facility] Address: [address] [place] [address] Performed By: #### 5 7021-8 ####[facility] CATIEBLOOMFIELDNCLIA [id number] [place] [address] [place] RBC (Bld) [#/Vol] 4.80 10*6/uL Normal 3.90-5.20 [facility] Comment on above: Order Comment: Speci men Type: BLOOD SPECIMENOrdering Facility: [facility] Address: [address] [place] [address] Performed By: #### 5 7021-8 ####[facility] [id number] [place] [address] [place] WBC (Bld) [#/Vol] 5.84 10*3/uL Normal 3.70-11.00 [facility] Comment on above: Order Comment: Speci men Type: BLOOD SPECIMENOrdering Facility: [facility] Address: [address] [place] [address] Performed By: #### 5 7021-8 ####[facility]ERNCL[facility] [id number] [address] [place] Comprehensive metabolic 2000 panelOrdered By: Marissa Martinez on 06-30-2024 Albumin [Mass/Vol] 4.6 g/dL 3.9 - 4.9 g/dL [facility] ALP [Catalytic activity/Vol] 98 U/L 34 - 123 U/L [facility] ALT [Catalytic activity/Vol] 17 U/L 7 - 38 U/L [facility] Anion gap [Moles/Vol] 12 mmol/L 8 - 15 mmol/L [facility] AST [Catalytic activity/Vol] 19 U/L 13 - 35 U/L [facility] Bilirubin [Mass/Vol] 0.6 mg/dL 0.2 - 1 .3 mg/dL [facility] Calcium [Mass/Vol] 9.7 mg/dL 8.5 - 10. 2 mg/dL [facility] Chloride [Moles/Vol] 100 mmol/L 98 - 10 7 mmol/L [facility] CO2 [Moles/Vol] 26 mmol/L 22 - 30 mmol/L [facility] Creatinine [Mass/Vol] 0.68 mg/dL 0.58 - 0.96 mg/dL [facility] GFR/1.73 sq M.predicted among non-blacks MDRD (S/P/Bld) [Vol rate/Area] 92 mL/min/{1.73_m2} - PINF [facility] Comment on above: Estimated Glomerular Filtration Rate (eGFR) is calculated using the 2020 CKD-EPI creatinine equation. This equation utilizes serum creatinine, sex, and age as parameters. The creatinine assay has traceable calibration to isotope dilution-mass spectrometry. Refer to KDIGO guidelines for clinical interpretation. In patients with unstable renal function, e.g. those with acute kidney injury, the eGFR may not accurately reflect actual GFR. Glucose [Mass/Vol] 123 mg/dL High 74 - 99 mg/dL [facility] Comment on above: The [place] Diabete s Association (ADA) provides guidance for cutoff values for fasting glucose and random glucose. The ADA defines fasting as no caloric intake for at least 8 hours. Fasting plasma glucose results between 100 to 125 mg/dL indicate increased risk for diabetes (prediabetes). Fasting plasma glucose results greater than or equal to 126 mg/dL meet the criteria for diagnosis of diabetes. In the absence of unequivocal hyperglycemia, results should be confirmed by repeat testing. In a patient with classic symptoms of hyperglycemia or hyperglycemic crisis, random plasma glucose results greater than or equal to 200 mg/dL meet the criteria for diagnosis of diabetes. Reference: Standards of Medical Care in Diabetes 2016, Canadian Diabetes Association. Diabetes Care. 2016.39(Suppl 1). Interpretation and review of laboratory results Abnormal [facility] Potassium [Moles/Vol] 4.5 mmol/L 3.7 - 5.1 mmol/L [facility] Protein [Mass/Vol] 7.6 g/dL 6.3 - 8.0 g/dL [facility] Sodium [Moles/Vol] 138 mmol/L 136 - 144 mmol/L [facility] Urea nitrogen [Mass/Vol] 15 mg/dL 7 - 21 mg/dL [facility] Comprehensive metabolic 2000 panelon 06-30-2024 Albumin [Mass/Vol] 4.6 g/dL Normal 3.9-4.9 [facility] Comment on above: Order Comment: Speci men Type: BLOOD SPECIMEN [facility] Address: [address] [place] [address] Performed By: #### 2 4323-8 #### [facility] CLIA [id number] [address] [place] [address] [place] ALP [Catalytic activity/Vol] 98 U/L Normal 34-123 [facility] Comment on above: Order Comment: Speci men Type: BLOOD SPECIMEN [facility] Address: [address] [place] [id number] Performed By: #### 2 4323-8 #### [facility] CLIA [id number] [address] [place] [address] [place] ALT [Catalytic activity/Vol] 17 U/L Normal 7-38 [facility] Comment on above: Order Comment: Speci men Type: BLOOD SPECIMEN [facility] Address: [address] [place] [address] Performed By: #### 2 4323-8 #### [facility] MILLW CLIA [id number] [address] [place] [address] [place] Anion gap [Moles/Vol] 12 mmol/L Normal 8-15 [facility] Comment on above: Order Comment: Speci men Type: BLOOD SPECIMEN [facility] Address: [address] [place] [address] Performed By: #### 2 4323-8 #### [facility] CLIA [id number] [address] [place] [address] [place] AST [Catalytic activity/Vol] 19 U/L Normal 13-35 [facility] Comment on above: Order Comment: Speci men Type: BLOOD SPECIMEN [facility] Address: [address] [place] [address] Performed By: #### 2 4323-8 #### [facility] CLIA [id number] [address] [place] [address] [place] Bilirubin [Mass/Vol] 0.6 mg/dL Normal 0.2-1.3 [facility] Comment on above: Order Comment: Speci men Type: BLOOD SPECIMEN [facility] Address: [address] [place] [address] Performed By: #### 2 4323-8 #### [facility] CLIA [id number] [address] [place] [address] [place] Calcium [Mass/Vol] 9.7 mg/dL Normal 8.5-10.2 [facility] Comment on above: Order Comment: Speci men Type: BLOOD SPECIMEN [facility] Address: [address] [place] [address] Performed By: #### 2 4323-8 #### [facility] CLIA [id number] [address] [place] [address] [place] Chloride [Moles/Vol] 100 mmol/L Normal 98-107 [facility] Comment on above: Order Comment: Speci men Type: BLOOD SPECIMEN [facility] Address: [address] [place] [address] Performed By: #### 2 4323-8 #### [facility] CLIA [id number] [address] [place] [address] [place] CO2 [Moles/Vol] 26 mmol/L Normal 22-30 [facility] Comment on above: Order Comment: Speci men Type: BLOOD SPECIMEN [facility] Address: [address] [place] [address] Performed By: #### 2 4323-8 #### [id number] [address] [place] [address] [place] Creatinine [Mass/Vol] 0.68 mg/dL Normal 0.58-0.96 [facility] Comment on above: Order Comment: [place] men Type: BLOOD SPECIMEN [facility] Address: [address] [place] [address] Performed By: #### 2 4323-8 #### [facility] [id number] [address] [place] [address] [place] Creatinine and Glomerular filtration rate.predicted panel (S/P/Bld) 92 mL/min/1.73m??? Normal >=60 [facility] Comment on above: Order Comment: [place] men Type: BLOOD SPECIMEN [facility] Address: [address] [place] [address] Result Comment: Brittani mated Glomerular Filtration Rate (eGFR) is calculated using the 2020 CKD-EPI creatinine equation. This equation utilizes serum creatinine, sex, and age as parameters. The creatinine assay has traceable calibration to isotope dilution-mass spectrometry. Refer to KDIGO guidelines for clinical interpretation. In patients with unstable renal function, e.g. those with acute kidney injury, the eGFR may not accurately reflect actual GFR. Performed By: #### 2 4323-8 #### [facility] CLIA [id number] [address] [place] [address] [place] Glucose [Mass/Vol] 123 mg/dL High 74-99 [facility] Comment on above: Order Comment: Vinita vadim Type: BLOOD SPECIMEN Ordering Facility: [facility] Address: [address] [place] [address] Result Comment: The Canadian Diabetes Association (ADA) provides guidance for cutoff values for fasting glucose and random glucose. The ADA defines fasting as no caloric intake for at least 8 hours. Fasting plasma glucose results between 100 to 125 mg/dL indicate increased risk for diabetes (prediabetes). Fasting plasma glucose results greater than or equal to 126 mg/dL meet the criteria for diagnosis of diabetes. In the absence of unequivocal hyperglycemia, results should be confirmed by repeat testing. In a patient with classic symptoms of hyperglycemia or hyperglycemic crisis, random plasma glucose results greater than or equal to 200 mg/dL meet the criteria for diagnosis of diabetes. Reference: Standards of Medical Care in Diabetes 2016, Canadian Diabetes Association. Diabetes Care. 2016.39(Suppl 1). Performed By: #### 2 4323-8 #### [facility] CLIA [id number] [address] [place] [address] [place] Potassium [Moles/Vol] 4.5 mmol/L Normal 3.7-5.1 [facility] Comment on above: Order Comment: Speci men Type: BLOOD SPECIMEN Ordering Facility: [facility] Address: [address] [place] [address] Performed By: #### 2 4323-8 #### [id number] [address] [place] [address] [place] Protein [Mass/Vol] 7.6 g/dL Normal 6.3-8.0 [facility] Comment on above: Order Comment: Jessicai vadim Type: BLOOD SPECIMEN Ordering Facility: [facility] Address: [address] [place] [address] Performed By: #### 2 4323-8 #### [facility] CLIA [id number] [address] [place] [address] [place] Sodium [Moles/Vol] 138 mmol/L Normal 136-144 [facility] Comment on above: Order Comment: Speci men Type: BLOOD SPECIMEN Ordering Facility: [facility] Address: [address] [id number] Performed By: #### 2 4323-8 #### [facility] CLIA [id number] [address] Urea nitrogen [Mass/Vol] 15 mg/dL Normal 7-21 [facility] Comment on above: Order Comment: Speci men Type: BLOOD SPECIMEN Ordering Facility: [facility] Address: [address] [id number] Performed By: #### 2 4323-8 #### [facility] CLIA [id number] [address] [id number] 06-30-2024 ECG01 Ventricular Rate : 6 3 BPM Atrial Rate : 63 BPM P-R Interval : 164 ms QRS Duration : 134 ms Q-T Interval : 468 ms QTC Calculation(Bazett) : 478 ms Calculated P Towner : 74 degrees Calculated R Towner : -26 degrees Calculated T Towner : 82 degrees NORMAL SINUS RHYTHM COMPLETE LEFT BUNDLE BRANCH BLOCK BASELINE ARTIFACT Confirmed by MD TAYLOR QARAB ([id number]) on 07/11/2024 3:30:09 PM NAME : NORA CAMARILLO PID : [id number] : 1950 Gender : Female Race : ORD : Procedure Date : Jun 30 2024 10:40:20 Edit Date : Jul 11 2024 15:30:12 Diagnosis: NORMAL SINUS RHYTHM COMPLETE LEFT BUNDLE BRANCH BLOCK BASELINE ARTIFACT Confirmed by MD TAYLOR QARAB ([id number]) on 07/11/2024 3:30:09 PM Test Reason : Location : [facility] : [facility] Overread By : MD TAYLOR QARAB Edited By : MD TAYLOR QARAB Referred By : BRYSON DHILLON Acquired by : Arun mandujano [facility] ECHOon 06-30-2024 CONCLUSIONS: - Exam indication: Abnormal ECG - The left ventricle is normal in size. Left ventricular systolic function is mildly decreased. EF = 45 5% (2D biplane) Grade I left ventricular diastolic dysfunction. - The right ventricle is normal in size. Right ventricular systolic function is normal. - There are no significant valvular abnormalities. - The patient has not had a prior CC echocardiographic exam for comparison. * * * Final * * * [facility] Ech[facility] Report: Transthoracic Echo [facility] Date of service: 06/30/2024 1:22:36 PM PROFESSOR OF HISTORY Ordering physician: YARI RINCON Indication: Abnormal ECG Technologist: Ann Salmeron [facility] Interpreting physician: Everardo Le DO PATIENT: Name: NORA AburtoHOLLY : 1950 Age: 74 years Gender: F Primary rhythm: sinus. Secondary rhythm: LBBB. Height: 161.30 cm BSA: 1.95 m Weight: 84.64 kg BMI: 32.5 kg/m Heart rate 77 bpm Blood pressure 168/72 mmHg Color Doppler was utilized to interrogate the cardiac valves assessed and spectral Doppler was utilized to determine the flow velocities and pressure gradients reported in this exam. MEASUREMENTS: Value Indexed Normal Max aortic dimension 3.4 cm Ao < 3.8 Left atrial volume 39 ml (biplane A-L) 20 ml/m Chante <= 34 LV ID (diastole) 4.3 cm (2D) 2.22 cm/m LV ID (systole) 3.4 cm (2D) 1.72 cm/m IVS, leaflet tips 1.1 cm (2D) Posterior wall thickness 1.1 cm (2D) Left ventricular mass 164 g (2D) 84 g/m LV stroke volume 37 ml (2D biplane) LV end diastolic volume 83 ml (2D biplane) 42.6 ml/m 29<=EDVi<62 LV end systolic volume 46 ml (2D biplane) 23.4 ml/m Ejection Fraction 45 % (2D biplane) EF > 54 FINDINGS: LEFT VENTRICLE The left ventricle is normal in size. Left ventricular systolic function is mildly decreased. Grade I left ventricular diastolic dysfunction. Mitral annular lateral E/e': 4.3. Mitral annular septal E/e': 7.8. Wall Motion: All scored segments are normal. RIGHT VENTRICLE The right ventricle is normal in size. Right ventricular systolic function is normal. RV systolic tissue Doppler velocity is 13.0 cm/s. Tricuspid annular displacement is 1.8 cm. Estimated right atrial pressure is 3 mmHg (although IVC not seen). LEFT ATRIUM The left atrial cavity is normal in size. RIGHT ATRIUM The right atrial cavity is normal in size. Inferior Vena Cava: The inferior vena cava appears normal measuring 1.3 cm. MITRAL VALVE The mitral valve leaflets are structurally normal. There is no mitral valve regurgitation. The pressure half time is 60 msec. The peak mitral E/A ratio is 0.43. The average mitral E/e' ratio is 6.1. The mitral flow deceleration time is 206 msec. TRICUSPID VALVE The tricuspid valve leaflets are structurally normal. There is no tricuspid valve regurgitation. AORTIC VALVE The aortic valve cusps are structurally normal. There is no aortic valve regurgitation. Tricuspid aortic valve. The peak gradient is 8 mmHg (peak velocity = 142.1 cm/s). PULMONIC VALVE The pulmonic valve cusps are structurally normal. There is trace (trace - 1+) pulmonic valve regurgitation. AORTA The visualized aorta is normal in size. Measurements - Mid ascending aorta 3.4 cm. INTERATRIAL SEPTUM The interatrial septum is mobile. PERICARDIUM There is no pericardial effusion. There is an epicardial fat pad. [facility] Echocardiography Echocardiography Rep ort: Transthoracic Echo [facility] Date of service: 06/30/2024 1:22:36 PM PROFESSOR OF HISTORY Ordering physician: YARI RINCON Indication: Abnormal ECG Technologist: Ann Salmeron [facility] Interpreting physician: Everardo Le DO PATIENT: Name: NORA ##HOLLY : 1950 Age: 74 years Gender: F Primary rhythm: sinus. Secondary rhythm: LBBB. Height: 161.30 cm BSA: 1.95 m Weight: 84.64 kg BMI: 32.5 kg/m Heart rate 77 bpm Blood pressure 168/72 mmHg Color Doppler was utilized to interrogate the cardiac valves assessed and spectral Doppler was utilized to determine the flow velocities and pressure gradients reported in this exam. MEASUREMENTS: Value Indexed Normal Max aortic dimension 3.4 cm Ao < 3.8 Left atrial volume 39 ml (biplane A-L) 20 ml/m Chante <= 34 LV ID (diastole) 4.3 cm (2D) 2.22 cm/m LV ID (systole) 3.4 cm (2D) 1.72 cm/m IVS, leaflet tips 1.1 cm (2D) Posterior wall thickness 1.1 cm (2D) Left ventricular mass 164 g (2D) 84 g/m LV stroke volume 37 ml (2D biplane) LV end diastolic volume 83 ml (2D biplane) 42.6 ml/m 29<=EDVi<62 LV end systolic volume 46 ml (2D biplane) 23.4 ml/m Ejection Fraction 45 % (2D biplane) EF > 54 FINDINGS: LEFT VENTRICLE The left ventricle is normal in size. Left ventricular systolic function is mildly decreased. Grade I left ventricular diastolic dysfunction. Mitral annular lateral E/e': 4.3. Mitral annular septal E/e': 7.8. Wall Motion: All scored segments are normal. RIGHT VENTRICLE The right ventricle is normal in size. Right ventricular systolic function is normal. RV systolic tissue Doppler velocity is 13.0 cm/s. Tricuspid annular displacement is 1.8 cm. Estimated right atrial pressure is 3 mmHg (although IVC not seen). LEFT ATRIUM The left atrial cavity is normal in size. RIGHT ATRIUM The right atrial cavity is normal in size. Inferior Vena Cava: The inferior vena cava appears normal measuring 1.3 cm. MITRAL VALVE The mitral valve leaflets are structurally normal. There is no mitral valve regurgitation. The pressure half time is 60 msec. The peak mitral E/A ratio is 0.43. The average mitral E/e' ratio is 6.1. The mitral flow deceleration time is 206 msec. TRICUSPID VALVE The tricuspid valve leaflets are structurally normal. There is no tricuspid valve regurgitation. AORTIC VALVE The aortic valve cusps are structurally normal. There is no aortic valve regurgitation. Tricuspid aortic valve. The peak gradient is 8 mmHg (peak velocity = 142.1 cm/s). PULMONIC VALVE The pulmonic valve cusps are structurally normal. There is trace (trace - 1+) pulmonic valve regurgitation. AORTA The visualized aorta is normal in size. Measurements - Mid ascending aorta 3.4 cm. INTERATRIAL SEPTUM The interatrial septum is mobile. PERICARDIUM There is no pericardial effusion. There is an epicardial fat pad. CONCLUSIONS: - Exam indication: Abnormal ECG - The left ventricle is normal in size. Left ventricular systolic function is mildly decreased. EF = 45 5% (2D biplane) Grade I left ventricular diastolic dysfunction. - The right ventricle is normal in size. Right ventricular systolic function is normal. - There are no significant valvular abnormalities. - The patient has not had a prior CC echocardiographic exam for comparison. * * * Final * * * [facility] [employer] : [id number] Normal [facility] HISTORY PHYSICALon HISTORY PHYSICAL HNO ID: [id number] Author: YARI RINCON APRN.CNP Service: ? Author Type: Nurse Practitioner Type: H&P Filed: 07/11/2024 09:27 Note Text: [facility] HISTORY AND PHYSICAL EXAMINATION SERVICE DATE: 06/30/2024 SERVICE TIME: 9:25 AM PRIMARY CARE PHYSICIAN: Scot Blank MD Assessment Patient has the following medical conditions which may affect peyton-operative course: LBBB (left bundle branch block) Assessment: new on EKG, asymptomatic, stress test and echo ordered, limited availability for cardiac consult, dependent on testing results Update 07/11/24-pt pre-op stress test normal, only echo abnormality: Left ventricular systolic function is mildly decreased. EF = 45 ? 5% (2D biplane) Grade I left ventricular diastolic dysfunction. Mixed hyperlipidemia Assessment: diet controlled Palpitations Assessment: hx, no current tx or symptoms Mild persistent asthma without complication Assessment: follows Dr. Linn, Albuterol inhaler as needed 02/2024 PFT's IMPRESSION: Spirometry reveals a reduced FEV1/FVC with normal FEV1 and FVC values. This could reflect a normal presentation or could indicate mild obstruction. Clinical correlation recommended. The increase in FEF 25-75 post-bronchodilator reflects an improvement in the small airway obstruction. 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 Clinical Frailty Scale: 3. Well, with treated comorbid disease STOP-Bang Score: Patient over 50 years old Denies snoring loudly Denies feeling tired, fatigued, or sleepy during the daytime Has not been observed to stop breathing or choking/gasping during sleep Denies having high blood pressure BMI less than or equal to 35 kg/m2 Does not have a large neck Non-male patient STOP-Bang Score: 1 [id number] Score: Age: 65-74 Sex: female CHF history: No Hypertension history: No Stroke/TIA/thromboembolism history: No Vascular disease history: Yes Diabetes history: No [id number] Score: 3 ARISCAT Score: Age: 51-80 Preoperative SpO2: >=96% Respiratory infection in the last month: No Preoperative anemia: No Surgical incision: peripheral Duration of surgery: 2-3 hrs Emergency procedure: No ARISCAT Score: 19 ANESTHESIA FINDINGS: Intubation History: No history of difficult intubation Significant Anesthesia Considerations: none Airway History: No history of difficult airway I - PHYSICAL EVALUATION AIRWAY Patient intubated: No. Tracheostomy tube not present Mallampati: III. TM distance: >3 FB. Neck ROM: full ROM without neurological symptoms. Mouth opening: adequate. Short neck: no. Thick neck: yes Mcpherson present: no Lip Bite Test: I Microretrognathia/Micronag thia/Recessed Chin: No DENTAL Dental findings: teeth intact. II - ANESTHESIA PLAN Anesthetic Plan: other Beta Miguel Monitoring Plan Post Procedure Analgesic Plan Prepared for Surgery: optimally prepared for surgery. Echo-reviewed, okay to proceed-JL stress test-pending to completed 07/07/2024-reviewed okay to proceed-JL Labs and EKG-reviewed, okay to proceed-JL CONSULTS: Patient does not require consults for optimization at this time Planned Anesthetic: other anesthesia choice The Following Tests/Procedures Have Been Initiated: Orders Placed This Encounter NM CARDIAC PERF STRESS/PHARM Standing Status: Future Number of Occurrences: 1 Standing Expiration Date: 07/30/2025 Order Specific Question: What stress agent will be used? Answer: Regadenoson >CBC + AUTO DIFF Standing Status: Future Number of Occurrences: 1 Standing Expiration Date: 09/29/2024 >CMP Standing Status: Future Number of Occurrences: 1 Standing Expiration Date: 09/29/2024 mupirocin (BACTROBAN) 2 % ointment Sig: Apply 0.5 inch with cotton swab (Q-tip) to each nostril in the morning and evening for 5 days prior to and including day of surgery. Dispense: 22 g Refill: 0 ECG COMPLETE Silvio (more content not included)... Normal [facility] CT KNEE WO IVCON RTon 2023 CT KNEE WO IVCON RT * * *Final Report* * * DATE OF EXAM: Jun 23 2024 8:57AM [facility] 0084 - CT KNEE WO IVCON RT / PROCEDURE REASON: multiple diagnoses * * * * Physician Interpretation * * * * EXAMINATION: CT KNEE WO IVCON RT CLINICAL HISTORY: 74 years old Female with Chronic pain of right knee Primary osteoarthritis of right knee . Preoperative planning . TECHNIQUE: CT RIGHT knee without contrast [facility] protocol, knee 0.62 mm axial slices, hip and ankle 2.5 mm axial slices obtained for the purposes of presurgical planning CT Radiation dose: Integrated Dose-length product (DLP) for this visit = 858 mGy*cm. CT Dose Reduction Employed: Automated exposure control(AEC) and iterative recon COMPARISON: Radiographs 03/03/2024 RESULT: Limited CT images for the purposes of presurgical planning. Right knee: Postsurgical changes of chondroplasty in the medial tibial plateau. Tricompartment osteoarthritis, most advanced in the medial joint compartment. No joint effusion. Right hip: No significant finding Right ankle and imaged foot: No significant finding Staff Cytotechnologist: No significant finding. IMPRESSION: Limited CT images for the purposes of presurgical planning. Buttermaker: NANCY Transcribe Date/Time: Jun 23 2024 9:14A Dictated by : JAMILA HENNESSY MD This examination was interpreted and the report reviewed and electronically signed by: JAMILA HENNESSY MD on Jun 23 2024 9:15AM EST [id number] [facility] CT Knee - right WO contrasto n 06-23-2024 IMPRESSION: Limited CT images for the purposes of presurgical planning. Buttermaker: PSCB Transcribe Date/Time: Jun 23 2024 9:14A Dictated by : JAMILA HENNESSY MD This examination was interpreted and the report reviewed and electronically signed by: JAMILA HENNESSY MD on Jun 23 2024 9:15AM [facility] RADIOLOGY * * *Final Report* * * DATE OF EXAM: Jun 23 2024 8:57AM [facility] 0084 - CT KNEE WO IVCON RT / PROCEDURE REASON: multiple diagnoses * * * * Physician Interpretation * * * * EXAMINATION: CT KNEE WO IVCON RT CLINICAL HISTORY: 74 years old Female with Chronic pain of right knee Primary osteoarthritis of right knee . Preoperative planning . TECHNIQUE: CT RIGHT knee without contrast [facility] protocol, knee 0.62 mm axial slices, hip and ankle 2.5 mm axial slices obtained for the purposes of presurgical planning CT Radiation dose: Integrated Dose-length product (DLP) for this visit = 858 mGy*cm. CT Dose Reduction Employed: Automated exposure control(AEC) and iterative recon COMPARISON: Radiographs 03/03/2024 RESULT: Limited CT images for the purposes of presurgical planning. Right knee: Postsurgical changes of chondroplasty in the medial tibial plateau. Tricompartment osteoarthritis, most advanced in the medial joint compartment. No joint effusion. Right hip: No significant finding Right ankle and imaged foot: No significant finding Staff Cytotechnologist: No significant finding. [facility] Provider, Raffi block [place] - 06/23/2024 * * *Final Report* * * DATE OF EXAM: Jun 23 2024 8:57AM [facility] 0084 - CT KNEE WO IVCON RT / PROCEDURE REASON: multiple diagnoses * * * * Physician Interpretation * * * * EXAMINATION: CT KNEE WO IVCON RT CLINICAL HISTORY: 74 years old Female with Chronic pain of right knee Primary osteoarthritis of right knee . Preoperative planning . TECHNIQUE: CT RIGHT knee without contrast [facility] protocol, knee 0.62 mm axial slices, hip and ankle 2.5 mm axial slices obtained for the purposes of presurgical planning CT Radiation dose: Integrated Dose-length product (DLP) for this visit = 858 mGy*cm. CT Dose Reduction Employed: Automated exposure control(AEC) and iterative recon COMPARISON: Radiographs 03/03/2024 RESULT: Limited CT images for the purposes of presurgical planning. Right knee: Postsurgical changes of chondroplasty in the medial tibial plateau. Tricompartment osteoarthritis, most advanced in the medial joint compartment. No joint effusion. Right hip: No significant finding Right ankle and imaged foot: No significant finding Staff Cytotechnologist: No significant finding. IMPRESSION IMPRESSION: Limited CT images for the purposes of presurgical planning. Buttermaker: NANCY Transcribe Date/Time: Jun 23 2024 9:14A Dictated by : JAMILA HENNESSY MD This examination was interpreted and the report reviewed and electronically signed by: JAMILA HENNESSY MD on Jun 23 2024 9:15AM EST [facility] Radiology Study observation (narrative) [facility] CT Knee - right WO contrastO rdered By: [facility] Provider on 06-23-2024 [facility] CNCOon 06-14-2024 CNCO Letter Text Normal [facility] CNPNon 06-14-2024 CNPN Telephone (ME2E) -- NORA CAMARILLO ([id number]) 1950 F [place]* Date Time Provider Department 06/14/24 BRYSON DHILLON NC2E During your visit today, we recorded the following information about you: Jefferson Wang PSS 06/14/2024 3:01 PM Signed TOTAL JOINT COMPLETE CARE PROGRAM PRE-OPERATIVE TEACHING Service Date: 06/14/2024 Service Time: 2:55 PM Date of : 1950 Gender: female Date of Surgery: 07/26/24 Procedure: Right Total Knee Replacement Complete Care Program was discussed with the patient: Fibreglass Laminator Identification: Patient identified a day care aide to help when discharged to home: Home Environment: Home Layout: Ranch, Entry Steps: 1, and one into kitchen Bedroom Location: 1st floor, Bathroom Location: 1st floor, and tub shower. Pt owns shower chair, walker, crutches, canes. Discussed with patient importance of attending joint education class and provided date and times of class: YES plans to attend 06/27/24 Patient received Joint Education Binder: Yes Patient plans [facility] with [facility] SIGNATURE: FRANKLIN Finley PATIENT NAME: Nora Camarillo DATE: June 14, 2024 TIME: 2:47 PM Allergies As of Date: 06/14/2024 Noted Allergy Reaction MORPHINE 03/03/2017 8 - GI Upset Comments: nausea NSAIDS (NON-STEROIDAL ANTI-INFLAM*10/31/2020 14 - Other: See Comments Comments: Hx of stomach ulcers ADVAIR DISKUS (FLUTICASONE PROPIO*05/14/2011 5 - Intolerance Comments: Hurts throat BENTYL (DICYCLOMINE HCL) 10/03/2009 16 - Unknown CELEBREX (CELECOXIB) 02/08/2006 8 - GI Upset DICYCLOMINE 09/10/2011 14 - Other: See Comments Comments: Dry mouth, blurred vision, loss of taste ESTRACE (ESTRADIOL) 03/17/2005 9 - Itching EVISTA (RALOXIFENE HCL) 03/17/2005 9 - Itching MACROBID (NITROFURANTOIN MONOHYD/*07/22/2017 14 - Other: See Comments Comments: Hair loss MEDROL (METHYLPREDNISOLONE) 09/27/2014 14 - Other: See Comments Comments: Dry mouth, sore throat. MOBIC (MELOXICAM) 06/05/2019 5 - Intolerance OXYCONTIN (OXYCODONE HCL) 07/19/2015 9 - Itching PENICILLINS 03/17/2005 9 - Itching PROZAC (FLUOXETINE HCL) 03/17/2005 16 - Unknown SULFAMETHIZOLE 11/17/2019 8 - GI Upset SYMAX-SL (HYOSCYAMINE SULFATE) 10/03/2009 16 - Unknown Date Reviewed: 06/12/2024 Reviewed by: Nora Escalante MA - Fully Assessed Reason for Visit: Pre-Op Teaching [134] Prescriptions as of 06/14/2024 - cholecalciferol, Vitamin D3, (VITAMIN D3) 1,250 mcg (50,000 unit) cap capsule Take 1 capsule by mouth one time a week. - albuterol HFA (VENTOLIN HFA) 90 mcg/actuation inhaler Inhale 2 Puffs as instructed every 4 hours as needed. - Zolpidem (AMBIEN CR) 12.5 mg CR tablet Take 1 tablet by mouth at bedtime as needed for sedation for up to 90 days. Patient should start on April 27, 2024. - montelukast (SINGULAIR) 10 mg tablet Take 1 tablet by mouth daily at bedtime. - montelukast (SINGULAIR) 10 mg tablet Take 1 tablet by mouth daily at bedtime. - pantoprazole DR (PROTONIX) 20 mg tablet Take 1 tablet by mouth two times a day as needed. - Benzonatate 200 mg capsule Take 1 capsule by mouth three times a day as needed. - nystatin (NYSTOP) powder Apply 1 application to affected area three times daily. to affected area as needed Meds Comments as of 11/08/2009: Problem List As Of Date 06/14/2024 Noted Resolved Unspecified constipation [K59.00] 12/22/2011 Diverticulosis of large intestine [K57.30] Senile osteoporosis [M81.0] 01/05/2006 Diaphragmatic hernia without mention of obstruc*01/24/2007 07/22/2017 Routine general medical examination at a [facility]*11/20/2009 12/22/2011 Class: Chronic Routine gynecological examination [Z01.419] 11/20/2009 12/22/2011 Class: Chronic Diarrhea [R19.7] 11/20/2009 12/22/2011 Mixed hyperlipidemia [E78.2] 11/20/2009 Delayed gastric emptying [K30] 09/18/2011 Non morbid obesity [E66.9] 08/20/2015 07/22/2017 Encounter for gynecological examination without*12/06/2015 06/15/2019 Encounter for screening for cardiovascular diso*12/06/2015 06/15/2019 Colon cancer screening [Z12.11] 12/06/2015 06/15/2019 Elevated fasting blood sugar [R73.01] 12/10/2015 Chronic bilateral low back pain [M54.50, G89.29]01/01/2016 06/15/2019 Gastric diverticulum [K31.4] 03/13/2016 PUD (peptic ulcer disease) [K27.9] 03/13/2016 Gastroesophageal reflux disease with esophagiti*03/13/2016 Mild persistent asthma without complication [J4*07/22/2016 Hiatal hernia [K44.9] 07/22/2016 06/15/2019 Primary insomnia [F51.01] 07/22/2016 Chronic pain of left knee [M25.562, G89.29] 07/22/2016 06/15/2019 Medicare annual wellness visit, subsequent [Z00*01/21/2017 Well adult exam [Z00.00] 01/21/2017 06/15/2019 Left hip pain [M25.552] 09/14/2017 06/15/2019 Low back pain [M54.50] 09/14/2017 Essential tremor [G25.0] 01/19/2018 Bilateral carotid artery stenosis [I65.23] 01/03/2019 Left lateral ab (more content not included)... Normal [facility] CNPN Telephone (ORTHWS) -- NORA CAMARILLO ([id number]) 1950 [facility]* Date Time Provider Department 06/14/24 BRYSON DHILLON During your visit today, we recorded the following information about you: Haritha Pascual MA 06/14/2024 12:01 PM Signed Surgical request completed for Robotic assisted right TKA at [facility] on 07/26/2024. CT scan scheduled for 06/23/2024. Post op appointments have been scheduled and mailed to the patient. Email sent to [facility]. Haritha Pascual MA 06/14/2024 1:20 PM Signed Surgery has been scheduled as requested. Allergies As of Date: 06/14/2024 Noted Allergy Reaction MORPHINE 03/03/2017 8 - GI Upset Comments: nausea NSAIDS (NON-STEROIDAL ANTI-INFLAM*10/31/2020 14 - Other: See Comments Comments: Hx of stomach ulcers ADVAIR DISKUS (FLUTICASONE PROPIO*05/14/2011 5 - Intolerance Comments: Hurts throat BENTYL (DICYCLOMINE HCL) 10/03/2009 16 - Unknown CELEBREX (CELECOXIB) 02/08/2006 8 - GI Upset DICYCLOMINE 09/10/2011 14 - Other: See Comments Comments: Dry mouth, blurred vision, loss of taste ESTRACE (ESTRADIOL) 03/17/2005 9 - Itching EVISTA (RALOXIFENE HCL) 03/17/2005 9 - Itching MACROBID (NITROFURANTOIN MONOHYD/*07/22/2017 14 - Other: See Comments Comments: Hair loss MEDROL (METHYLPREDNISOLONE) 09/27/2014 14 - Other: See Comments Comments: Dry mouth, sore throat. MOBIC (MELOXICAM) 06/05/2019 5 - Intolerance OXYCONTIN (OXYCODONE HCL) 07/19/2015 9 - Itching PENICILLINS 03/17/2005 9 - Itching PROZAC (FLUOXETINE HCL) 03/17/2005 16 - Unknown SULFAMETHIZOLE 11/17/2019 8 - GI Upset SYMAX-SL (HYOSCYAMINE SULFATE) 10/03/2009 16 - Unknown Date Reviewed: 06/12/2024 Reviewed by: Nora Escalante MA - Fully Assessed Reason for Visit: Schedule Surgery [1330] Primary Visit Diagnosis:Primary osteoarthritis of right knee [M17.11] Order(s):SURGICAL REQUEST - ELECTIVE (02/2020) [[id number]] Order #: [id number]: 1 Prescriptions as of 06/14/2024 - cholecalciferol, Vitamin D3, (VITAMIN D3) 1,250 mcg (50,000 unit) cap capsule Take 1 capsule by mouth one time a week. - albuterol HFA (VENTOLIN HFA) 90 mcg/actuation inhaler Inhale 2 Puffs as instructed every 4 hours as needed. - Zolpidem (AMBIEN CR) 12.5 mg CR tablet Take 1 tablet by mouth at bedtime as needed for sedation for up to 90 days. Patient should start on April 27, 2024. - montelukast (SINGULAIR) 10 mg tablet Take 1 tablet by mouth daily at bedtime. - montelukast (SINGULAIR) 10 mg tablet Take 1 tablet by mouth daily at bedtime. - pantoprazole DR (PROTONIX) 20 mg tablet Take 1 tablet by mouth two times a day as needed. - Benzonatate 200 mg capsule Take 1 capsule by mouth three times a day as needed. - nystatin (NYSTOP) powder Apply 1 application to affected area three times daily. to affected area as needed Meds Comments as of 11/08/2009: Problem List As Of Date 06/14/2024 Noted Resolved Unspecified constipation [K59.00] 12/22/2011 Diverticulosis of large intestine [K57.30] Senile osteoporosis [M81.0] 01/05/2006 Diaphragmatic hernia without mention of obstruc*01/24/2007 07/22/2017 Routine general medical examination at a [facility]*11/20/2009 12/22/2011 Class: Chronic Routine gynecological examination [Z01.419] 11/20/2009 12/22/2011 Class: Chronic Diarrhea [R19.7] 11/20/2009 12/22/2011 Mixed hyperlipidemia [E78.2] 11/20/2009 Delayed gastric emptying [K30] 09/18/2011 Non morbid obesity [E66.9] 08/20/2015 07/22/2017 Encounter for gynecological examination without*12/06/2015 06/15/2019 Encounter for screening for cardiovascular diso*12/06/2015 06/15/2019 Colon cancer screening [Z12.11] 12/06/2015 06/15/2019 Elevated fasting blood sugar [R73.01] 12/10/2015 Chronic bilateral low back pain [M54.50, G89.29]01/01/2016 06/15/2019 Gastric diverticulum [K31.4] 03/13/2016 PUD (peptic ulcer disease) [K27.9] 03/13/2016 Gastroesophageal reflux disease with esophagiti*03/13/2016 Mild persistent asthma without complication [J4*07/22/2016 Hiatal hernia [K44.9] 07/22/2016 06/15/2019 Primary insomnia [F51.01] 07/22/2016 Chronic pain of left knee [M25.562, G89.29] 07/22/2016 06/15/2019 Medicare annual wellness visit, subsequent [Z00*01/21/2017 Well adult exam [Z00.00] 01/21/2017 06/15/2019 Left hip pain [M25.552] 09/14/2017 06/15/2019 Low back pain [M54.50] 09/14/2017 Essential tremor [G25.0] 01/19/2018 Bilateral carotid artery stenosis [I65.23] 01/03/2019 Left lateral abdominal pain [R10.9] 02/15/2019 06/15/2019 Arthritis of left knee [M17.12] 02/19/2019 Obesity, Class I, BMI 30-34.9 [E66.811] 06/15/2019 Palpitations [R00.2] 08/25/2019 Medication management [Z79.899] 08/25/2019 Left lateral abdominal pain [R10.9] 02/15/2019 Chronic bilateral low back pain [M54.50, G89.29]01/01/2016 Allergic rhinitis [J30.9] Left leg swelling [M79.89] 02/27/2020 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] 09/27/2020 (more content not included)... Normal [facility] CNOVon 06-12-2024 CNOV Office Visit (ORTHWS ) -- NORA CAMARILLO ([id number]) 1950 [address] [place]* Date Time Provider Department 06/12/24 2:00 PM BRYSON DHILLON During your visit today, we recorded the following information about you: Bryson Dhillon MD 07/09/2024 2:21 PM Signed CONSULT ORTHOPAEDIC: KNEE PRIMARY CARE PHYSICIAN: Scot Blank MD REFERRING PROVIDER: Rebekah Eduardo [address] [facility] [place] [address] ASSESSMENT AND PLAN Impression: Right Knee Moderate Degenerative Osteoarthritis, Secondary Diagnoses: (M25.561, G89.29) Chronic pain of right knee (primary encounter diagnosis) (M17.11) Primary osteoarthritis of right knee Based upon the evaluation today and after discussions with Nora Camarillo, Nora Camarillo has significant, worsening pain at the knee. This pain is increased with activity and weight bearing, and interferes with activities of daily living. These symptoms have continued despite a number of non-surgical measures, including a trial of oral pain medication and attempted physical therapy/ structured exercise program and/or use of an assistive device/ bracing (for at least 12 weeks unless the patient was unable to tolerate these measures as discussed above). At this point, the patient will not benefit from further PT due to the severity of their condition. The patient's physical examination is consistent with limitations in range of motion, pain with passive range of motion, crepitus, and effusion/ synovitis. These examination findings are corroborated by imaging findings of joint space narrowing, periarticular osteophyte formation, and subchondral sclerosis. The patient has been treated by the practice and all reasonable treatments have failed to control the disease, which causes significant pain and limits activities of daily living. The patient has failed conservative treatment and joint replacement surgery was discussed and agreed upon by both provider and patient. We will proceed with surgical management to improve function and relieve pain refractory to non-surgical measures. Right Primary Total Knee Arthroplasty as evidenced by six months of unsuccessful non-operative treatment as outlined in the HPI below. Surgery Details Date and Location: At [facility] on 07/26/2024. Implants: Adolfo Robotic: Yes Predicted LOS: 2 days (Inpatient candidate) Informed consent obtained in the office today. The risks and benefits of surgery were discussed at length including but not limited to the risks of infection, bleeding, nerve or blood vessel injury, deep venous thrombosis, pulmonary embolism, arthrofibrosis, reflex sympathetic dystrophy, , paralysis, knee or patellar dislocation, extensor mechanism injury, bone fracture, component loosening or failure requiring re-operation or amputation. Informed consent was obtained and the patient was scheduled for surgery. We also discussed fixation strategies including cement and cementless fixation and advantages and disadvantages of each. We discussed the details of the surgery as well as rehabilitation. All questions were answered, and the patient wishes to proceed with surgery.. The patient has been ordered: No orders found for this visit on 06/12/24. CT Nora Camarillo meets the following criteria for CT: DOUGLAS protocol CONSULTS: Cardiology Consult for cardiac clearance for stress test. Total Joint Arthroplasty: Risk Calculator Nora Camarillo has a 14.09% chance of NOT returning home at discharge for a Primary total Knee replacement. Nora's estimated Length of Stay is 2 days (Inpatient candidate). Nora's 30 day chance of readmission is 1.74%. Readmission Probability 1.74 % (within 30 days following surgery) Estimated LOS 2 days Discharge Disposition Probability D/C to Home 85.91 % D/C to SNF 14.09 % These calculations are based on the following factors: - 74 years of age - sex is not male - BMI of 32.87 kg/m2 - NarxCare score of 150 - 0 hospitalizations in the last 12 months - no history of heart disease - no history of diabetes - no history of COPD - no history of anemia - preoperative ambulation: impaired community distances - 2 step(s) to enter home - bed location is on the first floor - bath location is on the first floor - caregiver is consistent - home is not more than 150 miles away - PROMIS-10 Mental Health T score 50+ - Marital status: Risk Factors for Total Knee Arthroplasty (TKA) Major Risk Factors Obesity Moderate Risk High: BMI > 40 Moderate: BMI 30-40 Normal: BMI < 30 Diabetes normal High: A1C > 8 Moderate: A1C 7-8 Normal: A1C < 7 Hx of DVT / PE normal High: dx of DVT / PE Normal: no dx of DVT / PE Smoking normal High: Current smoker Normal: Non smoker Narcotics Use Moderate Risk High:NarxCare >=300 Moderate: 100-299 Normal: 0-99 Depression normal High: PHQ-9 >14 Moderate: PHQ-9 (more content not included)... Normal [facility] 06-09-2024 CNPN Telephone (FAMPST) -- NORA CAMARILLO ([id number]) 1950 [address] [facility]* Date Time Provider Department 06/09/24 SCOT BLANK During your visit today, we recorded the following information about you: Angelia Jj 06/09/2024 9:18 AM Addendum Nora is calling Scot Blank MD today to request a new handicap placard for patient to pick-up at front office supervisor. Please advise when ready for supervisor picking crew at home phone below verified NOTE: patient asking if this is possible to pick-up today? She is in the building around 11:00 am today Patient has been identified by name and birthdate. Duration of symptoms: ongoing Person calling: self Call patient at: at home [phone] (home) [phone] (cell) Was an appointment scheduled: No Closing statement: Results or non-symptom based questions: Thank you for calling [facility], your call will be returned within the next business day. Angelia Garza [facility] [place] APRN.ECHOCARDIOGRAPHER 06/09/2024 9:53 AM Signed Please let patient know order has been placed and she can stop at my office to supervisor picking crew letter. Treasure Sanchez MA 06/09/2024 11:20 AM Signed Given to patient as 's visit. Treasure Sanchez MA Allergies As of Date: 06/09/2024 Noted Allergy Reaction MORPHINE 03/03/2017 8 - GI Upset Comments: nausea NSAIDS (NON-STEROIDAL ANTI-INFLAM*10/31/2020 14 - Other: See Comments Comments: Hx of stomach ulcers ADVAIR DISKUS (FLUTICASONE PROPIO*05/14/2011 5 - Intolerance Comments: Hurts throat BENTYL (DICYCLOMINE HCL) 10/03/2009 16 - Unknown CELEBREX (CELECOXIB) 02/08/2006 8 - GI Upset DICYCLOMINE 09/10/2011 14 - Other: See Comments Comments: Dry mouth, blurred vision, loss of taste ESTRACE (ESTRADIOL) 03/17/2005 9 - Itching EVISTA (RALOXIFENE HCL) 03/17/2005 9 - Itching MACROBID (NITROFURANTOIN MONOHYD/*07/22/2017 14 - Other: See Comments Comments: Hair loss MEDROL (METHYLPREDNISOLONE) 09/27/2014 14 - Other: See Comments Comments: Dry mouth, sore throat. MOBIC (MELOXICAM) 06/05/2019 5 - Intolerance OXYCONTIN (OXYCODONE HCL) 07/19/2015 9 - Itching PENICILLINS 03/17/2005 9 - Itching PROZAC (FLUOXETINE HCL) 03/17/2005 16 - Unknown SULFAMETHIZOLE 11/17/2019 8 - GI Upset SYMAX-SL (HYOSCYAMINE SULFATE) 10/03/2009 16 - Unknown Date Reviewed: 05/29/2024 Reviewed by: Nora Escalante MA - Fully Assessed Reason for Visit: request new handicap placard [Other] Primary Visit Diagnosis:COPD with exacerbation (HCC) [J44.1] Other Visit Diagnoses:Age-related osteoporosis without current pathological fracture [M81.0] Chronic bilateral low back pain, unspecified whether sciatica present [M54.50, G89.29] Arthritis of left knee [M17.12] Order(s):PARKING FOR HANDICAPPED [[id number]] Order #: [id number] Prescriptions as of 06/09/2024 - albuterol HFA (VENTOLIN HFA) 90 mcg/actuation inhaler Inhale 2 Puffs as instructed every 4 hours as needed. - Zolpidem (AMBIEN CR) 12.5 mg CR tablet Take 1 tablet by mouth at bedtime as needed for sedation for up to 90 days. Patient should start on April 27, 2024. - cholecalciferol, Vitamin D3, (VITAMIN D3) 1,250 mcg (50,000 unit) cap capsule Take 1 capsule by mouth one time a week. - montelukast (SINGULAIR) 10 mg tablet Take 1 tablet by mouth daily at bedtime. - montelukast (SINGULAIR) 10 mg tablet Take 1 tablet by mouth daily at bedtime. - pantoprazole DR (PROTONIX) 20 mg tablet Take 1 tablet by mouth two times a day as needed. - Benzonatate 200 mg capsule Take 1 capsule by mouth three times a day as needed. - nystatin (NYSTOP) powder Apply 1 application to affected area three times daily. to affected area as needed Meds Comments as of 11/08/2009: Problem List As Of Date 06/09/2024 Noted Resolved Unspecified constipation [K59.00] 12/22/2011 Diverticulosis of large intestine [K57.30] Senile osteoporosis [M81.0] 01/05/2006 Diaphragmatic hernia without mention of obstruc*01/24/2007 07/22/2017 Routine general medical examination at a [facility]*11/20/2009 12/22/2011 Class: Chronic Routine gynecological examination [Z01.419] 11/20/2009 12/22/2011 Class: Chronic Diarrhea [R19.7] 11/20/2009 12/22/2011 Mixed hyperlipidemia [E78.2] 11/20/2009 Delayed gastric emptying [K30] 09/18/2011 Non morbid obesity [E66.9] 08/20/2015 07/22/2017 Encounter for gynecological examination without*12/06/2015 06/15/2019 Encounter for screening for cardiovascular diso*12/06/2015 06/15/2019 Colon cancer screening [Z12.11] 12/06/2015 06/15/2019 Elevated fasting blood sugar [R73.01] 12/10/2015 Chronic bilateral low back pain [M54.50, G89.29]01/01/2016 06/15/2019 Gastric diverticulum [K31.4] 03/13/2016 PUD (peptic ulcer disease) [K27.9] 03/13/2016 Gastroesophageal reflux disease with esophagiti*03/13/2016 Mild persistent asthma without complication [J4*07/22/2016 Hiatal hernia [K44.9] 07/22/2016 06/15/2019 Prim (more content not included)... Normal [facility] CNOVon 05-29-2024 CNOV Office Visit (ORTHWS ) -- NORA CAMARILLO ([id number]) 1950 [place]* Date Time Provider Department 05/29/24 8:00 AM REBEKAH EDUARDO During your visit today, we recorded the following information about you: Nora Escalante MA 05/29/2024 9:48 AM Signed Patient presents with: Right Knee - Results - Mri AMB ROOMING INTAKE FLOWSHEET DATA Pain Pain Level: 6 Pain Location: Knee-Right Description: Aching, Burning Duration Amount of Time: (Ongoing) Frequency: Continuous Intervention/Comfort measure: Medication Patient here for MRI results. Taking Aleve for the pain when needed. with patient today. Rebekah Eduardo PA-C 05/29/2024 9:48 AM Signed Rebekah Eduardo PA-C Department of Orthopaedics Orthopaedics [address] [facility] [address] Dept: [phone] Dept May 29, 2024 CHIEF COMPLAINT: Results - Mri of the Right Knee Ms. Nora Camarillo is a 74 year old female who presents to discuss the results of her recent right knee MRI. Patient reports several years ago she had a knee arthroscopy with Dr. Pineda, also had a subchondral plasty. Has had pain along the medial aspect of her knee since the surgery. Pain is getting much worse, she has a constant aching in the lambert area. She is unable to tolerate NSAIDs as she has had a Walter procedure in the past. She has had multiple right knee corticosteroid injections which are no longer of benefit. She is not interested in viscosupplementation. ASSESSMENT: M17.5 Other secondary osteoarthritis of right knee (primary encounter diagnosis) PLAN: Patient has severe osteoarthritis of the knee. We discussed a total knee arthroplasty. She would like to get into one of our surgeons to schedule surgery. Will get her scheduled appropriately. Will continue to monitor patient for Other secondary osteoarthritis of right knee (primary encounter diagnosis), patient to schedule visit as per follow up discussed. Ms. Nora Camarillo was advised as to contrast therapies and/or to take analgesics/anti-inflammato dl as needed and all contraindications were reviewed. OBJECTIVE: Ms. Nora Camarillo is a pleasant 74 year old in no apparent distress. Gen:There were no vitals taken for this visit. nl development, obese, no deformities ENT: Normocephalic, normal hearing, moist mucosa CV: Pulses:Radial= 2+ and symmetric, capillary refill < 2 secs, no peripheral edema/varicosities Skin: no rash, bruising or lesions. Good turgor. Psych: cooperative and appropriate, alert and oriented x 3, good mood and affect. Musculoskeletal: Right knee with a correctable valgus deformity. Range of motion of 5 degrees extension and flexion to about 110 degrees. Medial joint line tenderness. Imaging: IMPRESSION: Complex medial meniscal tear with extrusion. 5.4 cm multiloculated cystic collection along the medial knee soft tissues. Primary differential considerations are large multiloculated parameniscal cyst versus MCL bursitis. Tricompartment degenerative chondral changes, high-grade in the medial compartment as detailed with postoperative changes of medial tibial plateau subchondroplasty. Buttermaker: NANCY Transcribe Date/Time: May 18 2024 1:25P Dictated by : JERMAINE DHILLON MD This examination was interpreted and the report reviewed and electronically signed by: JERMAINE DIHLLON MD on May 18 2024 1:48PM EST Results-Findings * * *Final Report* * * DATE OF EXAM: May 17 2024 4:58PM [facility] 0213 - MRI KNEE WO IVCON RT / PROCEDURE REASON: Other secondary osteoarthritis of right knee * * * * Physician Interpretation * * * * EXAMINATION: MRI RIGHT KNEE WITHOUT CONTRAST CLINICAL HISTORY: Medial knee pain TECHNIQUE: Routine non-contrast MRI of the knee MQ: MRK_2B COMPARISON: 03/03/2024 radiographs RESULT: MENISCI: Medial Meniscus: Complex tear in the posterior horn and body with horizontal and complete radial components near the posterior root with associated extrusion of the meniscal body into the medial gutter. Lateral Meniscus: Intact. LIGAMENTS: ACL: Intact with mucoid degeneration PCL: Intact with ganglion cyst near the femoral attachment. MCL: Intact LCL Complex: Intact CARTILAGE: Medial Femoral Condyle: Moderate sized area(s) of predominantly high grade (greater than 50% thickness) cartilage loss and or fissuring with smaller area(s) of full thickness cartilage loss and or fissuring with subchondral marrow reactive/cystic changes Medial Tibial Plateau: Moderate sized area(s) of predominantly high grade (greater than 50% thickness) cartilage loss and or fissuring with smaller area(s) of full thickness cartilage loss and or fissuring with subchondral marrow reactive/cystic changes Lateral Femoral Condyle: Small area(s) of low grade (less than 50% thickness) partial thickness cart (more content not included)... Normal [facility] MRI KNEE WO IVCON RTon 05-17 MRI KNEE WO IVCON RT * * *Final Report* * * DATE OF EXAM: May 17 2024 4:58PM [facility] 0213 - MRI KNEE WO IVCON RT / PROCEDURE REASON: Other secondary osteoarthritis of right knee * * * * Physician Interpretation * * * * EXAMINATION: MRI RIGHT KNEE WITHOUT CONTRAST CLINICAL HISTORY: Medial knee pain TECHNIQUE: Routine non-contrast MRI of the knee MQ: MRK_2B COMPARISON: 03/03/2024 radiographs RESULT: MENISCI: Medial Meniscus: Complex tear in the posterior horn and body with horizontal and complete radial components near the posterior root with associated extrusion of the meniscal body into the medial gutter. Lateral Meniscus: Intact. LIGAMENTS: ACL: Intact with mucoid degeneration PCL: Intact with ganglion cyst near the femoral attachment. MCL: Intact LCL Complex: Intact CARTILAGE: Medial Femoral Condyle: Moderate sized area(s) of predominantly high grade (greater than 50% thickness) cartilage loss and or fissuring with smaller area(s) of full thickness cartilage loss and or fissuring with subchondral marrow reactive/cystic changes Medial Tibial Plateau: Moderate sized area(s) of predominantly high grade (greater than 50% thickness) cartilage loss and or fissuring with smaller area(s) of full thickness cartilage loss and or fissuring with subchondral marrow reactive/cystic changes Lateral Femoral Condyle: Small area(s) of low grade (less than 50% thickness) partial thickness cartilage loss and or fissuring Lateral Tibial Plateau: Normal Patella: Small areas(s) of predominantly low grade (less than 50% thickness) cartilage loss and or fissuring with smaller area(s) of full thickness cartilage loss and or fissuring Trochlea: Small areas(s) of predominantly high grade (greater than 50% thickness) cartilage loss and or fissuring with smaller area(s) of full thickness cartilage loss and or fissuring TENDONS: The distal quadriceps and patellar tendons are intact. The popliteus tendon is intact. BONES AND MARROW: Postoperative changes of medial tibial plateau subchondroplasty. No evidence of fracture or bone marrow replacing process. MUSCLES: Muscle bulk and signal intensity are normal. JOINT FLUID AND SYNOVIUM: No significant joint effusion. No synovitis. Small multiloculated Dickey's cyst. Large multiloculated cystic collection along the medial aspect of the knee, deep to the medial collateral ligament and portion of the semimembranosus tendon extending inferior to the medial joint line measuring about 3.7 x 1.0 x 5.4 cm (3:33 and 4:24). OTHER: No other significant abnormality identified. Localizer images: No additional findings. IMPRESSION: Complex medial meniscal tear with extrusion. 5.4 cm multiloculated cystic collection along the medial knee soft tissues. Primary differential considerations are large multiloculated parameniscal cyst versus MCL bursitis. Tricompartment degenerative chondral changes, high-grade in the medial compartment as detailed with postoperative changes of medial tibial plateau subchondroplasty. Buttermaker: PSCB Transcribe Date/Time: May 18 2024 1:25P Dictated by : JERMAINE DHILLON MD This examination was interpreted and the report reviewed and electronically signed by: JERMAINE DHILLON MD on May 18 2024 1:48PM EST [id number] Normal [facility] CNOVon 05-15-2024 CNOV Office Visit (ORTHWS ) -- NORA CAMARILLO ([id number]) 1950 [place]* Date Time Provider Department 05/15/24 11:00 AM REBEKAH EDUARDO During your visit today, we recorded the following information about you: Haritha Pascual MA 05/15/2024 2:17 PM Signed AMB ROOMING INTAKE FLOWSHEET DATA Pain Pain Level: 8 Pain Location: Knee-Right Description: Throbbing, Aching, Burning Duration Amount of Time: 2.5 Duration Units: Years Frequency: Continuous Intervention/Comfort measure: Other: See comment (yanique and josé luis nunez) Rebekah Eduardo PA-C 05/15/2024 2:17 PM Signed Rebekah Eduardo PA-C Department of Orthopaedics Orthopaedics [address] [place] [address] Dept: [phone] Dept May 15, 2024 CHIEF COMPLAINT: Established Patient and Follow Up of the Right Knee Ms. Nora Camarillo is a 74 year old female who presents with medial right knee pain which has been bothering her for the past several years. Patient reports that she had a knee arthroscopy with Dr. Pineda, after waking from surgery she had pain along the medial aspect of her knee which has never resolved. The pain is getting worse with time, she notes some burning pain that radiates into the lambert. Knee is swollen. Pain is worse with activity. She is unable to tolerate oral NSAIDs as she has had a Walter procedure and also a history of peptic ulcer disease. She has had multiple corticosteroid injections in the right knee which she did not find to be of benefit. She is not interested in trying viscosupplementation. She is very concerned that she may have another meniscal tear. ASSESSMENT: M25.561, G89.29 Chronic pain of right knee (primary encounter diagnosis) M17.11 Primary osteoarthritis of right knee PLAN: She certainly has osteoarthritis of the right knee, he can also see where she had a subchondral plasty. On x-ray arthritis appears to be moderate in severity. We discussed getting an MRI for further evaluation, I suspect that she has rather severe medial compartment osteoarthritis and would likely benefit from total joint arthroplasty. Will get the MRI and see her back in the office to discuss further. Will continue to monitor patient for Other secondary osteoarthritis of right knee (primary encounter diagnosis), patient to schedule visit as per follow up discussed. Ms. Nora Camarillo was advised as to contrast therapies and/or to take analgesics/anti-inflammato dl as needed and all contraindications were reviewed. OBJECTIVE: Ms. Nora Camarillo is a pleasant 74 year old in no apparent distress. Gen:There were no vitals taken for this visit. nl development, obese, no deformities ENT: Normocephalic, normal hearing, moist mucosa CV: Pulses:DP/PT= 2+ and symmetric, capillary refill < 2 secs, no peripheral edema/varicosities Skin: no rash, bruising or lesions. Good turgor. Psych: cooperative and appropriate, alert and oriented x 3, good mood and affect. Musculoskeletal: KNEE EXAM: Right: Alignment: Varus deformity, Correctable Range of motion is 5 degrees in extension and 110 degrees of flexion. Extension La degrees Pain with ROM: Yes Effusion: Slight Tender to the palpation of Pes anserine bursa and Medial joint line Pain with patellar compression: No Stability: Anterior/Posterior stable and Varus/Valgus stable Hip Exam: flexion to 100+ degrees, full extension, internal/external rotation adequate, and no pain with log roll Neurovascular Status: Sensation Intact, Moves foot and ankle up AND down, and 2+ dorsalis pedis Imaging: IMPRESSION: Postoperative and degenerative changes in the RIGHT knee. Buttermaker: NANCY Transcribe Date/Time: Mar 06 2024 4:09P Dictated by : CATHY VIDAL, DO This examination was interpreted and the report reviewed and electronically signed by: CATHY VIDAL DO on Mar 06 2024 4:14PM EST Results-Findings * * *Final Report* * * DATE OF EXAM: Mar 03 2024 9:29AM REMBERTO 5203 - XR KNEE 4V AP/PA BOTH+LAT/REBEKA RT / PROCEDURE REASON: Q14-Rylq * * * * Physician Interpretation * * * * EXAMINATION: XR KNEE 4V AP/PA BOTH+LAT/REBEKA RT PATIENT/TECHNOLOGIST PROVIDED HISTORY: right knee pain CLINICAL INFORMATION: 73 years old Female with Pain TECHNIQUE: XR KNEE 4V AP/PA BOTH+LAT/REBEKA RT Laterality: RIGHT Number of different views (projections): 4 COMPARISON: Radiographs 02/17/2019 RESULT: No fracture. Interval postsurgical changes of subchondroplasty within the medial tibial plateau. Small tricompartmental osteophytes with mild-moderate medial compartment joint space narrowing. No joint effusion. Images of the LEFT knee demonstrate: Calcification along the proximal MCL which could be related to calcific periarthritis and moderate medial compartment joint space narrowing with small marginal osteophytes. Supporting (more content not included)... Normal [facility] CNOVon 04-25-2024 CNOV Office Visit (VASSWS ) -- NORA CAMARILLO ([id number]) 1950 F [facility]* Date Time Provider Department 04/25/24 8:30 AM LIDYA PENA VASSWS During your visit today, we recorded the following information about you: Pulse Blood pressure 78/minute 135/72 Lidya Pena DO 04/25/2024 9:20 AM Signed [facility] [place] DEPARTMENT OF VASCULAR SURGERY OUTPATIENT VISIT DATE April 25, 2024 OUTPATIENT VISIT TYPE CONSULTATION SERVICE DATE: 04/25/2024 SERVICE TIME: 8:12 AM PRIMARY CARE PHYSICIAN: Scot Blank MD REFERRING PROVIDER: Jaylin Combs [address] [facility] [address] Consult requested for an opinion regarding the evaluation and treatment of the above. My final impression and recommendations will be communicated back to the requesting physician by way of the shared medical record or letter via US mail. 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 She describes cramping in her legs at night while lying down. She also admits to swelling at her ankles at night. Predisposing factors included history of varicose vein surgery iliac vein stenting in 2019 for leg swelling . States left leg swelling has increased over the past year and a half. She will wear compression intermittently Procedure: Iliocaval venography, IVUS interrogation of the bilateral iliac veins, stenting of the left common and external iliac veins, completion venography and IVUS interrogation; [employer] [place] venous stent [id number] PAIN ASSESSMENT: PAIN EVALUATION No data found in the last 1 encounters. Obstetric History T3 L3 SAB0 IAB0 Ectopic0 Multiple0 Live Births0 Name of Baby 1: Not recorded Date: Not recorded GA: Not recorded Type: Not recorded Apgar1: Not recorded Apgar5: Not recorded Living: Not recorded Name of Baby 2: Not recorded Date: Not recorded GA: Not recorded Type: Not recorded Apgar1: Not recorded Apgar5: Not recorded Living: Not recorded Name of Baby 3: Not recorded Date: Not recorded GA: Not recorded Type: Not recorded Apgar1: Not recorded Apgar5: Not recorded Living: Not recorded PAST MEDICAL HISTORY Diagnosis Date Abnormal computed tomography angiography (CTA) 01/03/2019 right upper ICA with abnormality, consult to vascular 12/2018 Acute meniscal tear of left knee 04/13/2019 Advance directive discussed with patient 02/12/2022 Discussed 02/2022 Allergies Anxiety and depression 09/27/2020 Arthritis of left knee 02/19/2019 Bilateral carotid artery stenosis 01/03/2019 US: 12/2018 20-40% tatyana Chronic bilateral low back pain 01/01/2016 Seen [facility] Chronic pain of both ankles 09/27/2020 Chronic pain of left knee 09/27/2020 Chronic pain of right knee 09/30/2021 [facility]es [facility] Current use of proton pump inhibitor 08/25/2019 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 rojas Hiatal hernia 07/22/2016 Left hip pain 09/14/[address] [facility] [address] [address] Xander Martinez Left lateral abdominal pain 02/15/2019 Mid quadrant, chronic and paroxysmal. 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 Linn Mixed hyperlipidemia 11/20/2009 Mixed incontinence 06/27/[address] Queen Obesity, Class I, BMI 30-34.9 06/15/2019 Palpitations 08/25/2019 Primary insomnia 07/22/2016 PUD (peptic ulcer disease) 03/13/2016 Hx of ulcer 2018 and two again in 10/2020. No NSAID's (aspirin held 10/2020) Second hand smoke exposure 11/08/2023 Senile osteoporosis 01/05/2006 Clinical Team Manager following (Dr. Dobson) Simple cyst of breast 11/2009 Left retroareolar Unspecified constipation PAST SURGICAL HISTORY Procedure Laterality Date APPENDECTOMY ARTHRS KNE SURG W/MENISCECTOMY MED/LAT W/SHVG Left 06/23/2019 Left knee medial and lateral menisectomies, medial and PF chondroplasties BREAST BIOPSY Left 2002 CARDIAC CATH 2003 COLONOSCOPY FLX DX W/COLLJ SPEC WHEN PFRMD 05/22/2019 Colonoscopy COLPOPEXY VAGINAL EXTRAPERITONEAL APPROACH 02/2013 repair of rectal and vaginal prolapse COLSC FLX W/RMVL OF TUMOR POLYP LESION SNARE TQ 01/28/2016 repeat 10 yrs EGD 10/16/2020 2 cratered ga (more content not included)... Normal [facility] CNP[facility] 04-14-2024 [facility] NORA CAMARILLO ([id number]) 1950 [address] [place] [employer]* Date Time Provider Department 04/14/24 JAYLIN COMBS During your visit today, we recorded the following information about you: Jaylin Combs PA-C 04/14/2024 10:05 AM Signed Let patient know that her carotid US is stable. Repeat 2 years. Thanks. CE Samuel Sherill A, LPN 04/14/2024 10:59 AM Signed Left message for pt to contact office. CLARE Hinson Beth, LPN 04/14/2024 2:53 PM Signed Patient returned call and went over results, notes from Jaylin TAYLOR with understanding. Allergies As of Date: 04/14/2024 Noted Allergy Reaction MORPHINE 03/03/2017 8 - GI Upset Comments: nausea NSAIDS (NON-STEROIDAL ANTI-INFLAM*10/31/2020 14 - Other: See Comments Comments: Hx of stomach ulcers ADVAIR DISKUS (FLUTICASONE PROPIO*05/14/2011 5 - Intolerance Comments: Hurts throat BENTYL (DICYCLOMINE HCL) 10/03/2009 16 - Unknown CELEBREX (CELECOXIB) 02/08/2006 8 - GI Upset DICYCLOMINE 09/10/2011 14 - Other: See Comments Comments: Dry mouth, blurred vision, loss of taste ESTRACE (ESTRADIOL) 03/17/2005 9 - Itching EVISTA (RALOXIFENE HCL) 03/17/2005 9 - Itching MACROBID (NITROFURANTOIN MONOHYD/*07/22/2017 14 - Other: See Comments Comments: Hair loss MEDROL (METHYLPREDNISOLONE) 09/27/2014 14 - Other: See Comments Comments: Dry mouth, sore throat. MOBIC (MELOXICAM) 06/05/2019 5 - Intolerance OXYCONTIN (OXYCODONE HCL) 07/19/2015 9 - Itching PENICILLINS 03/17/2005 9 - Itching PROZAC (FLUOXETINE HCL) 03/17/2005 16 - Unknown SULFAMETHIZOLE 11/17/2019 8 - GI Upset SYMAX-SL (HYOSCYAMINE SULFATE) 10/03/2009 16 - Unknown Date Reviewed: 03/24/2024 Reviewed by: Qasim Patterson LPN - Fully Assessed Reason for Visit: Results [95] Primary Visit Diagnosis:Bilateral carotid artery stenosis [I65.23] Prescriptions as of 04/14/2024 - cholecalciferol, Vitamin D3, (VITAMIN D3) 1,250 mcg (50,000 unit) cap capsule Take 1 capsule by mouth one time a week. - montelukast (SINGULAIR) 10 mg tablet Take 1 tablet by mouth daily at bedtime. - Zolpidem (AMBIEN CR) 12.5 mg CR tablet Take 1 tablet by mouth at bedtime as needed for sedation for up to 90 days. - montelukast (SINGULAIR) 10 mg tablet Take 1 tablet by mouth daily at bedtime. - pantoprazole DR (PROTONIX) 20 mg tablet Take 1 tablet by mouth two times a day as needed. - Benzonatate 200 mg capsule Take 1 capsule by mouth three times a day as needed. - albuterol HFA (VENTOLIN HFA) 90 mcg/actuation inhaler Inhale 2 Puffs as instructed every 4 hours as needed. - nystatin (NYSTOP) powder Apply 1 application to affected area three times daily. to affected area as needed Meds Comments as of 11/08/2009: Problem List As Of Date 04/14/2024 Noted Resolved Unspecified constipation [K59.00] 12/22/2011 Diverticulosis of large intestine [K57.30] Senile osteoporosis [M81.0] 01/05/2006 Diaphragmatic hernia without mention of obstruc*01/24/2007 07/22/2017 Routine general medical examination at a [facility]*11/20/2009 12/22/2011 Class: Chronic Routine gynecological examination [Z01.419] 11/20/2009 12/22/2011 Class: Chronic Diarrhea [R19.7] 11/20/2009 12/22/2011 Mixed hyperlipidemia [E78.2] 11/20/2009 Delayed gastric emptying [K30] 09/18/2011 Non morbid obesity [E66.9] 08/20/2015 07/22/2017 Encounter for gynecological examination without*12/06/2015 06/15/2019 Encounter for screening for cardiovascular diso*12/06/2015 06/15/2019 Colon cancer screening [Z12.11] 12/06/2015 06/15/2019 Elevated fasting blood sugar [R73.01] 12/10/2015 Chronic bilateral low back pain [M54.50, G89.29]01/01/2016 06/15/2019 Gastric diverticulum [K31.4] 03/13/2016 PUD (peptic ulcer disease) [K27.9] 03/13/2016 Gastroesophageal reflux disease with esophagiti*03/13/2016 Mild persistent asthma without complication [J4*07/22/2016 Hiatal hernia [K44.9] 07/22/2016 06/15/2019 Primary insomnia [F51.01] 07/22/2016 Chronic pain of left knee [M25.562, G89.29] 07/22/2016 06/15/2019 Medicare annual wellness visit, subsequent [Z00*01/21/2017 Well adult exam [Z00.00] 01/21/2017 06/15/2019 Left hip pain [M25.552] 09/14/2017 06/15/2019 Low back pain [M54.50] 09/14/2017 Essential tremor [G25.0] 01/19/2018 Bilateral carotid artery stenosis [I65.23] 01/03/2019 Left lateral abdominal pain [R10.9] 02/15/2019 06/15/2019 Arthritis of left knee [M17.12] 02/19/2019 Obesity, Class I, BMI 30-34.9 [E66.811] 06/15/2019 Palpitations [R00.2] 08/25/2019 Medication management [Z79.899] 08/25/2019 Left lateral abdominal pain [R10.9] 02/15/2019 Chronic bilateral low back pain [M54.50, G89.29]01/01/2016 Allergic rhinitis [J30.9] Left leg swelling [M79.89] 02/27/2020 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 Normal [facility] US CAROTID ARTERIES TATYANA VAS LABon 04-13-2024 US CAROTID ARTERIES TATYANA VAS LAB Non-Invasive Vascular Laboratory [facility] Carotid Duplex Bilateral/Complete Date of service/time: 04/13/2024 9:07:34 AM Name: NORA CAMARILLO Date of : 1950 Age: 74 years Gender: F Clinical Indication Follow-up study on a patient with known carotid disease. TECHNIQUE -------- A carotid duplex ultrasound examination was performed, including grayscale imaging and color Doppler and spectral Doppler examination of the below mentioned arteries. FINDINGS -------- RIGHT SIDE Common carotid artery: Origin: PSV: 62 cm/s. EDV: 9 cm/s. Proximal: PSV: 82 cm/s. EDV: 14 cm/s. Mid: PSV: 76 cm/s. EDV: 16 cm/s. Distal: PSV: 68 cm/s. EDV: 17 cm/s. Mild heterogeneous plaque at distal. Internal carotid artery: Origin: PSV: 85 cm/s. EDV: 21 cm/s. Proximal: PSV: 80 cm/s. EDV: 20 cm/s. Mid: PSV: 91 cm/s. EDV: 24 cm/s. Distal: PSV: 102 cm/s. EDV: 21 cm/s. Mild heterogeneous plaque from origin to proximal. ICA/CCA Ratio: 1.5 External carotid artery: Origin: PSV: 96 cm/s. EDV: 15 cm/s. Subclavian artery: Origin: PSV: 147 cm/s. EDV: 0 cm/s. Mild heterogeneous plaque at origin. Innominate artery: PSV: 96 cm/s. EDV: 14 cm/s. Vertebral artery: PSV: 38 cm/s. EDV: 9 cm/s. LEFT SIDE Common carotid artery: Proximal: PSV: 96 cm/s. EDV: 20 cm/s. Mid: PSV: 85 cm/s. EDV: 21 cm/s. Distal: PSV: 68 cm/s. EDV: 19 cm/s. Mild homogeneous plaque from mid to distal. Internal carotid artery: Origin: PSV: 52 cm/s. EDV: 15 cm/s. Proximal: PSV: 74 cm/s. EDV: 23 cm/s. Mid: PSV: 60 cm/s. EDV: 14 cm/s. Distal: PSV: 96 cm/s. EDV: 24 cm/s. Mild heterogeneous plaque at origin. ICA/CCA Ratio: 1.4 External carotid artery: Origin: PSV: 103 cm/s. EDV: 19 cm/s. Subclavian artery: Proximal: PSV: 137 cm/s. EDV: 0 cm/s. Vertebral artery: PSV: 47 cm/s. EDV: 9 cm/s. IMPRESSION Compared to prior study of 02/17/2022, No significant change. RIGHT SIDE Common carotid artery: Plaque visualized without evidence of hemodynamically significant stenosis. Internal carotid artery: 20-39% stenosis. Vertebral artery: Patent and antegrade flow noted. Subclavian artery: Plaque visualized without evidence of hemodynamically significant stenosis. LEFT SIDE Common carotid artery: Plaque visualized without evidence of hemodynamically significant stenosis. Internal carotid artery: 20-39% stenosis. Vertebral artery: Patent and antegrade flow noted. Subclavian artery: Patent. Technologist: Jill Davis RVT, [facility] Ordering physician: JAYLIN COMBS Interpreting physician: BOO Sesay DO Final CC [employer] : [id number] See Link below for Image Normal [facility] US LEG VEIN DVT UNL VAS LABo n 04-13-2024 LEG VEIN DVT UNL VAS LAB Non-Invasive Vascular Laboratory [facility] Lower Extremity Venous Duplex Unilateral - Left Date of service/time: 04/13/2024 9:53:00 AM Name: MRS. NORA CAMARILLO Date of : 1950 Age: 74 years Gender: F Clinical Indication Left iliac vein stenting. May-Thurners, lower extremity swelling and lower extremity pain. TECHNIQUE -------- A venous duplex ultrasound examination was performed, including grayscale imaging with compression maneuvers and color Doppler and spectral Doppler examination with augmentation maneuvers and response to respiration of the below mentioned veins. FINDINGS -------- RIGHT SIDE Common femoral vein Doppler: normal flow. LEFT SIDE Distal external iliac vein Doppler: normal flow. Compression: normal. Common femoral vein Doppler: normal flow. Compression: normal. Femoral vein Doppler: normal flow. Compression: normal. Popliteal vein Doppler: normal flow. Compression: normal. Posterior tibial veins Compression: normal. Peroneal veins Compression: normal. Great saphenous vein Compression: normal. Small saphenous vein Compression: normal. IMPRESSION RIGHT SIDE - DEEP VEINS Spontaneous and respirophasic flow noted in the common femoral vein. LEFT SIDE - DEEP VEINS Negative for acute deep vein thrombosis. LEFT SIDE - SUPERFICIAL VEINS Negative for superficial thrombophlebitis in the great saphenous vein and small saphenous vein. Technologist: Jill Davis RVT [facility] Ordering physician: LIDYA PENA Interpreting physician: BOO Sesay DO Final CC [employer] : [id number] See Link below for Image Normal [facility] VISCERAL VEIN COMPLETE VA S LABon 04-13-2024 VISCERAL VEIN COMPLETE VAS LAB Non-Invasive Vascular Laboratory [facility] Visceral Venous Duplex Bilateral/Complete Date of service/time: 04/13/2024 9:40:17 AM Name: MRS. NORA CAMARILLO Date of : 1950 Age: 74 years Gender: F Clinical Indication 04/02/2020 left common and external iliac vein stenting. Melany Garduno. TECHNIQUE -------- A venous duplex ultrasound examination was performed, including grayscale imaging with compression maneuvers and color Doppler and spectral Doppler examination with response to respiration of the below mentioned veins. FINDINGS -------- Inferior vena cava Doppler: normal flow. Right common iliac vein Doppler: normal flow. Left common iliac vein Doppler: decreased flow. Left external iliac vein Doppler: normal flow. IMPRESSION Patent inferior vena cava. Patent right common iliac vein at proximal. Patent left common iliac vein. Stent noted. Decreased flow noted; however, stent appears patent. Patent left external iliac vein. Normal, respirophasic flow. Technologist: Jill Davis RVT [facility] Ordering physician: LIDYA PENA Interpreting physician: BOO Sesay DO Final CC [employer] : [id number] See Link below for Image Normal [facility] CNOVon 03-24-2024 CNOV Office Visit (FAMPWS ) -- NORA CAMARILLO ([id number]) 1950 [place] [facility] Date Time Provider Department 03/24/24 10:00 AM [facility] COMBS [facility] During your visit today, we recorded the following information about you: Temperature Pulse Respiration Blood pressure 97.4 degrees 74/minute 18/minute 136/70 Weight Height 85.7 kg 1.615 m Jaylin Combs PA-C 03/24/2024 11:47 AM Signed Nora Camarillo is a 73 year old female here for a Medicare wellness visit. Medicare Health Risk Assessment General Health Good Exercise: Minutes/Day ADL- tries to walk at stores Exercise: Days/Week - Alcohol: Daily Use no Alcohol: Drinks/Day - Alcohol: 6 or more drinks no Feel off balance yes Concerns: Teeth/Dentures no Concerns: Sexual function Troubled by feelings Yes at times Frequency: Eating healthy diet yes ADLs requiring help no Safety precautions in home/vehicle Yes. No grab bars yet Smoke, vape, chews tobacco no Difficulty hearing no Difficulty seeing no Current Providers Specialists: I have reviewed specialist-related care of the patient in the medical record. Medical/Family history review Reviewed and updated problem list, medical/surgical/family/so cial history, medications, and allergies. Opioid use review Opioid Medications (last 90 days) No data to display Anxiety/Depression screening PHQ-2 Score: 1 (Lower risk for depression) Recommendation: continuing current treatment plan Cognitive screening Mini Cog Score: 5 Cognitive screening reviewed and No further action needed (score 3-5). Functional Observation Was the patient's Timed Up AND Go test unsteady or ? 12 seconds? No Advance Care Planning Surrogate decision maker and/or advance care plan documented Measurements BP 136/70 (BP Site: Right Arm, BP Position: Sitting, BP Cuff Size: Large Adult) Pulse 74 Temp 36.3 ?C (97.4 ?F) Resp 18 Ht 161.5 cm (5' 3.58) Wt 85.7 kg (189 lb) SpO2 95% BMI 32.87 kg/m? Vision Screening: Follows with optometry/ophthalmology Assessment/Plan Medicare annual wellness visit, subsequent (Z00.00) - Counseled on healthy diet and regular exercise - Fall avoidance information provided - Personalized prevention plan provided See below. Chief Complaint Patient presents with: Medicare Wellness Exam HPI Nora Camarillo is a 73 year old female who presents here today for extensive exam. Patient with hx of hyperlipidemia, asthma, insomnia, tremor, PUD, arthritis, vit d def, may thurner dz and those as below. Patient has had foot pain depending on what way she turns her ankle. Gets leg cramps at night. Past medical history, appointments, medications, allergies reviewed. Previous Medical History PAST MEDICAL HISTORY Diagnosis Date Abnormal computed tomography angiography (CTA) 01/03/2019 right upper ICA with abnormality, consult to vascular 12/2018 Acute meniscal tear of left knee 04/13/2019 Advance directive discussed with patient 02/12/2022 Discussed 02/2022 Allergies Anxiety and depression 09/27/2020 Arthritis of left knee 02/19/2019 Bilateral carotid artery stenosis 01/03/2019 US: 12/2018 20-40% tatyana Chronic bilateral low back pain 01/01/2016 Seen [facility] Chronic pain of both ankles 09/27/2020 Chronic pain of left knee 09/27/2020 Chronic pain of right knee 09/30/2021 [facility] Current use of proton pump inhibitor 08/25/2019 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 rojas Hiatal hernia 07/22/2016 Left hip pain 09/14/[address] [facility] Xander Martinez Left lateral abdominal pain 02/15/2019 Mid quadrant, chronic and paroxysmal. 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 Linn Mixed hyperlipidemia 11/20/2009 Mixed incontinence 06/27/[address] Queen Obesity, Class I, BMI 30-34.9 06/15/2019 Palpitations 08/25/2019 Primary insomnia 07/22/2016 PUD (peptic ulcer disease) 03/13/2016 Hx of ulcer 2018 and two again in 10/2020. No NSAID's (aspirin held 10/2020) Second hand smoke exposure 11/08/2023 Senile osteoporosis 01/05/2006 Clinical Team Manager following (Dr. Dobson) Simple cyst of breast 11/2009 Left retroareolar Unspecified constipation Previous Surgical History PAST SURGICAL HISTORY Procedure Laterality Date APPENDECTOMY ARTHRS KNE SURG W/MENISCECTOMY MED/LAT W/SHVG Le (more content not included)... Normal [facility] XR Lower extremity - bilater al AP W standingon 03-07-2024 IMPRESSION: Findings as discussed in results portion of report Buttermaker: NANCY Transcribe Date/Time: Mar 07 2024 8:03A Dictated by : BRADEN SINGH DO This examination was interpreted and the report reviewed and electronically signed by: BRADEN SINGH DO on Mar 07 2024 8:03AM [facility] * * *Final Report* * * DATE OF EXAM: Mar 03 2024 9:29AM REMBERTO 5216 - XR LEG FRONTL HIP-ANKL MECH AXIS / PROCEDURE REASON: M25.561-Right knee pain, unspecified chronicity * * * * Physician Interpretation * * * * EXAM(s): XR LEG FRONTL HIP-ANKL MECH AXIS EXAM DATE/TIME: 03/03/2024 9:29 AM HISTORY: 73 years old Clinical information: Right knee pain, unspecified chronicity right knee pain TECHNIQUE: Images: XR LEG FRONTL HIP-ANKL MECH AXIS Comparison: None. EXAM: XR LEG FRONTAL SCANOGRAM LENGTHS, XR LEG FRONTL HIP-ANKL MECH AXIS RESULT: Findings: AP view of the full lengths of the bilateral lower extremities was obtained with cm ruler markings. Measurements will be obtained by the ordering service. Bone density appears well-preserved. No fractures or dislocations are seen. Vascular graft material is noted projecting over the LEFT side of the pelvis [facility] Provider, Raffi Cruz - 03/07/2024 * * *Final Report* * * DATE OF EXAM: Mar 03 2024 9:29AM REMBERTO 5216 - XR LEG FRONTL HIP-ANKL MECH AXIS / PROCEDURE REASON: M25.561-Right knee pain, unspecified chronicity * * * * Physician Interpretation * * * * EXAM(s): XR LEG FRONTL HIP-ANKL MECH AXIS EXAM DATE/TIME: 03/03/2024 9:29 AM HISTORY: 73 years old Clinical information: Right knee pain, unspecified chronicity right knee pain TECHNIQUE: Images: XR LEG FRONTL HIP-ANKL MECH AXIS Comparison: None. EXAM: XR LEG FRONTAL SCANOGRAM LENGTHS, XR LEG FRONTL HIP-ANKL [facility] AXIS RESULT: Findings: AP view of the full lengths of the bilateral lower extremities was obtained with cm ruler markings. Measurements will be obtained by the ordering service. Bone density appears well-preserved. No fractures or dislocations are seen. Vascular graft material is noted projecting over the LEFT side of the pelvis IMPRESSION IMPRESSION: Findings as discussed in results portion of report Buttermaker: NANCY Transcribe Date/Time: Mar 07 2024 8:03A Dictated by : BRADEN SINGH DO This examination was interpreted and the report reviewed and electronically signed by: BRADEN SINGH DO on Mar 07 2024 8:03AM EST [facility] XR Knee - right 4 Viewson IMPRESSION: Postoperative and degenerative changes in the RIGHT knee. Buttermaker: NANCY Transcribe Date/Time: Mar 06 2024 4:09P Dictated by : CATHY VIDAL DO This examination was interpreted and the report reviewed and electronically signed by: CATHY VIDAL DO on Mar 06 2024 4:14PM EST [facility] * * *Final Report* * * DATE OF EXAM: Mar 03 2024 9:29AM REMBERTO 5203 - XR KNEE 4V AP/PA BOTH+LAT/REBEKA RT / PROCEDURE REASON: [id number] * * * * Physician Interpretation * * * * EXAMINATION: XR KNEE 4V AP/PA BOTH+LAT/REBEKA RT PATIENT/TECHNOLOGIST PROVIDED HISTORY: right knee pain CLINICAL INFORMATION: 73 years old Female with Pain TECHNIQUE: XR KNEE 4V AP/PA BOTH+LAT/REBEKA RT Laterality: RIGHT Number of different views (projections): 4 COMPARISON: Radiographs 02/17/2019 RESULT: No fracture. Interval postsurgical changes of subchondroplasty within the medial tibial plateau. Small tricompartmental osteophytes with mild-moderate medial compartment joint space narrowing. No joint effusion. Images of the LEFT knee demonstrate: Calcification along the proximal MCL which could be related to calcific periarthritis and moderate medial compartment joint space narrowing with small marginal osteophytes. [facility] Provider, Raffi Cruz - 03/06/2024 * * *Final Report* * * DATE OF EXAM: Mar 03 2024 9:29AM REMBERTO 5203 - XR KNEE 4V AP/PA BOTH+LAT/REBEKA RT / PROCEDURE REASON: [id number] * * * * Physician Interpretation * * * * EXAMINATION: XR KNEE 4V AP/PA BOTH+LAT/REBEKA RT PATIENT/TECHNOLOGIST PROVIDED HISTORY: right knee pain CLINICAL INFORMATION: 73 years old Female with Pain TECHNIQUE: XR KNEE 4V AP/PA BOTH+LAT/REBEKA RT Laterality: RIGHT Number of different views (projections): 4 COMPARISON: Radiographs 02/17/2019 RESULT: No fracture. Interval postsurgical changes of subchondroplasty within the medial tibial plateau. Small tricompartmental osteophytes with mild-moderate medial compartment joint space narrowing. No joint effusion. Images of the LEFT knee demonstrate: Calcification along the proximal MCL which could be related to calcific periarthritis and moderate medial compartment joint space narrowing with small marginal osteophytes. IMPRESSION IMPRESSION: Postoperative and degenerative changes in the RIGHT knee. Buttermaker: NANCY Transcribe Date/Time: Mar 06 2024 4:09P Dictated by : CATHY VIDAL DO This examination was interpreted and the report reviewed and electronically signed by: CATHY VIDAL DO on Mar 06 2024 4:14PM EST [facility] XR Knee - right 4 ViewsOrder ed By: Ccdania Provider on 03-06-2024 [facility] CNOVon 03-03-2024 CNOV Office Visit (ORMDNA ) -- NORA CAMARILLO ([id number]) 1950 [address] [place] [address]* Date Time Provider Department 03/03/24 10:00 AM GARTH GONZALEZ During your visit today, we recorded the following information about you: Garth Gonzalez PA-C 03/03/2024 11:26 AM Signed HISTORY OF PRESENT ILLNESS: Nora is a 73 year old female. She is here for evaluation of Right knee pain. She reports right knee surgery for medial meniscal tear and subchondroplasty done in [place] in 2021. She states that the knee has been painful ever since and has not gotten any better. Currently takes aleve for pain control which does seem to help, but she has had gastric surgery with likely Walter fundoplication so she need to watch her NSAID use. Reports a sharp, aching sensation that occasionally radiates to the lambert. Unable to quantify the pain today. MEDICATIONS Current Outpatient Medications on File Prior to Visit Medication Sig montelukast (SINGULAIR) 10 mg tablet Take 1 tablet by mouth daily at bedtime. predniSONE (DELTASONE) 10 mg tablet Take 4 daily for three days, then 3 daily for three days, then 2 daily for three days, then one daily for three days. Zolpidem (AMBIEN CR) 12.5 mg CR tablet Take 1 tablet by mouth at bedtime as needed for sedation for up to 90 days. montelukast (SINGULAIR) 10 mg tablet Take 1 tablet by mouth daily at bedtime. pantoprazole DR (PROTONIX) 20 mg tablet Take 1 tablet by mouth two times a day as needed. Benzonatate 200 mg capsule Take 1 capsule by mouth three times a day as needed. cetirizine (ZYRTEC) 10 mg tablet Take 1 tablet by mouth once daily. (Patient not taking: Reported on 02/15/2024) dextromethorphan-guaiFENes in (MUCINEX DM) 30-600 mg per tablet Take 1 tablet by mouth two times a day. (Patient not taking: Reported on 10/04/2023) VITAFUSION WOMEN GUMMY as directed. (Patient not taking: Reported on 02/15/2024) albuterol HFA (VENTOLIN HFA) 90 mcg/actuation inhaler Inhale 2 Puffs as instructed every 4 hours as needed. nystatin (NYSTOP) powder Apply 1 application to affected area three times daily. to affected area as needed budesonide (PULMICORT) 0.25 mg/2 mL nebulizer solution USE 2 ML VIA NEBULIZER TWICE DAILY. DX: MILD PERSISTENT ASTHMA J45.21 No current facility-administered medications on file prior to visit. ALLERGIES ALLERGIES Allergen Reactions Morphine GI Upset nausea Nsaids (Non-Steroid* Other: See Comments Hx of stomach ulcers Advair Diskus [Flut* Intolerance Hurts throat Bentyl [Dicyclomine* Unknown Celebrex [Celecoxib] GI Upset Dicyclomine Other: See Comments Dry mouth, blurred vision, loss of taste Estrace [Estradiol] Itching Evista [Raloxifene * Itching Macrobid [Nitrofura* Other: See Comments Hair loss Medrol [Methylpredn* Other: See Comments Dry mouth, sore throat. Mobic [Meloxicam] Intolerance Oxycontin [Oxycodon* Itching Penicillins Itching Prozac [Fluoxetine * Unknown Sulfamethizole GI Upset Symax-Sl [Hyoscyami* Unknown PAST MEDICAL HISTORY PAST MEDICAL HISTORY 01/03/2019: Abnormal computed tomography angiography (CTA) Comment: right upper ICA with abnormality, consult to vascular 12/201804/13/2019: Acute meniscal tear of left knee 02/12/2022: Advance directive discussed with patient Comment: Discussed 02/2022 No date: Allergies 09/27/2020: Anxiety and depression 02/19/2019: Arthritis of left knee 01/03/2019: Bilateral carotid artery stenosis Comment: US: 12/2018 20-40% tatyana 01/01/2016: Chronic bilateral low back pain Comment: Seen Matti cam 09/27/2020: Chronic pain of both ankles 09/27/2020: Chronic pain of left knee 09/30/2021: Chronic pain of right knee Comment: Sees matti Cam 08/25/2019: Current use of proton pump inhibitor 06/20/2019: 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 Comment: S/p surgery 06/201909/18/2011: Delayed gastric emptying No date: Diverticulosis of large intestine 12/10/2015: Elevated fasting blood sugar 01/19/2018: Essential tremor 09/27/2020: Family history of thyroid disease 03/13/2016: Gastric diverticulum 03/13/2016: Gastroesophageal reflux disease with esophagitis Comment: S/P Walter 02/[address] rojas 07/22/2016: Hiatal hernia 09/14/2017: Left hip pain Comment: Seeing Matti Martinez 02/15/2019: Left lateral abdominal pain Comment: Mid quadrant, chronic and paroxysmal. 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 Linn 11/20/2009: Mixed hyperlipidemia 06/27/2021: Mixed incontinence Comment: Seeing Dr. Queen 06/15/2019: Obesity, Class I, BMI 30-34.9 08/25/2019: Palpitations 07/22/2016: (more content not included)... Normal [facility] Large Joint Arthro/Inj: R kn ee jointon 03-03-2024 Garth Gonzalez P A-C 03/03/2024 11:26 AM Large Joint Arthro/Inj: R knee joint Informed Consent Consent Obtained: Verbal [place] Protocol A moment to CARE was completed. SIGN IN Personnel directly involved with the procedure wore the appropriate PPE. Special Equipment: N/A Patient/Surrogate Stated/Verified: Patient name, Date of , Relevant allergies and Intended procedure TIME OUT Relevant labs, photos, and/or imaging studies have been reviewed. Correct side/site marked and visible. Medications required for procedure verified. No fire risk assessment and interventions applicable. No implant(s) inserted. 03/03/2024 11:26 AM The procedure site was prepped in the usual sterile fashion. Site: R knee joint Medications: 80 mg triamcinolone acetonide 40 mg/mL Anesthetics: 5 mL lidocaine (PF) 10 mg/mL (1 %) Outcome: Tolerated well, no immediate complications Post-injection instructions were reviewed with the patient and the patient voiced understanding of these instructions. SIGN OUT All instruments, equipment, possible retained foreign bodies accounted for. [facility] No Panel Informationon 03-03 Radiology Study observation (narrative) [facility] XR KNEE 4V AP/PA BOTH+LAT/ME R RTon 03-03-2024 XR KNEE 4V AP/PA BOTH+LAT/REBEKA RT * * *Final Report* * * DATE OF EXAM: Mar 03 2024 9:29AM REMBERTO 5203 - XR KNEE 4V AP/PA BOTH+LAT/REBEKA RT / PROCEDURE REASON: [id number] * * * * Physician Interpretation * * * * EXAMINATION: XR KNEE 4V AP/PA BOTH+LAT/REBEKA RT PATIENT/TECHNOLOGIST PROVIDED HISTORY: right knee pain CLINICAL INFORMATION: 73 years old Female with Pain TECHNIQUE: XR KNEE 4V AP/PA BOTH+LAT/REBEKA RT Laterality: RIGHT Number of different views (projections): 4 COMPARISON: Radiographs 02/17/2019 RESULT: No fracture. Interval postsurgical changes of subchondroplasty within the medial tibial plateau. Small tricompartmental osteophytes with mild-moderate medial compartment joint space narrowing. No joint effusion. Images of the LEFT knee demonstrate: Calcification along the proximal MCL which could be related to calcific periarthritis and moderate medial compartment joint space narrowing with small marginal osteophytes. IMPRESSION: Postoperative and degenerative changes in the RIGHT knee. Buttermaker: NANCY Transcribe Date/Time: Mar 06 2024 4:09P Dictated by : CATHY VIDAL DO This examination was interpreted and the report reviewed and electronically signed by: CATHY VIDAL DO on Mar 06 2024 4:14PM EST [id number] [facility] XR LEG FRONTL HIP-ANKL MECH AXISon 03-03-2024 XR LEG FRONTL HIP-ANKL MECH AXIS * * *Final Report* * * DATE OF EXAM: Mar 03 2024 9:29AM REMBERTO 5216 - XR LEG FRONTL HIP-ANKL MECH AXIS / PROCEDURE REASON: M25.561-Right knee pain, unspecified chronicity * * * * Physician Interpretation * * * * EXAM(s): XR LEG FRONTL HIP-ANKL MECH AXIS EXAM DATE/TIME: 03/03/2024 9:29 AM HISTORY: 73 years old Clinical information: Right knee pain, unspecified chronicity right knee pain TECHNIQUE: Images: XR LEG FRONTL HIP-ANKL MECH AXIS Comparison: None. EXAM: XR LEG FRONTAL SCANOGRAM LENGTHS, XR LEG FRONTL HIP-ANKL MECH AXIS RESULT: Findings: AP view of the full lengths of the bilateral lower extremities was obtained with cm ruler markings. Measurements will be obtained by the ordering service. Bone density appears well-preserved. No fractures or dislocations are seen. Vascular graft material is noted projecting over the LEFT side of the pelvis IMPRESSION: Findings as discussed in results portion of report Buttermaker: NANCY Transcribe Date/Time: Mar 07 2024 8:03A Dictated by : BRADEN LARRICK, DO This examination was interpreted and the report reviewed and electronically signed by: BRADEN SINGH DO on Mar 07 2024 8:03AM EST [id number] [facility] 02-21-2024 [facility] HOLLYNORA GONZALEZ ([id number]) 1950 [address] [place] [address]* Date Time Provider Department 02/21/24 [facility] During your visit today, we recorded the following information about you: Jaylin Combs PA-C 02/21/2024 10:56 AM Signed Patient cancelled her wellness exam. Please help to reschedule Treasure Sanchez MA 02/21/2024 11:26 AM Signed Patient notified and voiced understanding. Treasure Sanchez MA Patient was scheduled. Treasure Sanchez MA Allergies As of Date: 02/21/2024 Noted Allergy Reaction MORPHINE 03/03/2017 8 - GI Upset Comments: nausea NSAIDS (NON-STEROIDAL ANTI-INFLAM*10/31/2020 14 - Other: See Comments Comments: Hx of stomach ulcers ADVAIR DISKUS (FLUTICASONE PROPIO*05/14/2011 5 - Intolerance Comments: Hurts throat BENTYL (DICYCLOMINE HCL) 10/03/2009 16 - Unknown CELEBREX (CELECOXIB) 02/08/2006 8 - GI Upset DICYCLOMINE 09/10/2011 14 - Other: See Comments Comments: Dry mouth, blurred vision, loss of taste ESTRACE (ESTRADIOL) 03/17/2005 9 - Itching EVISTA (RALOXIFENE HCL) 03/17/2005 9 - Itching MACROBID (NITROFURANTOIN MONOHYD/*07/22/2017 14 - Other: See Comments Comments: Hair loss MEDROL (METHYLPREDNISOLONE) 09/27/2014 14 - Other: See Comments Comments: Dry mouth, sore throat. MOBIC (MELOXICAM) 06/05/2019 5 - Intolerance OXYCONTIN (OXYCODONE HCL) 07/19/2015 9 - Itching PENICILLINS 03/17/2005 9 - Itching PROZAC (FLUOXETINE HCL) 03/17/2005 16 - Unknown SULFAMETHIZOLE 11/17/2019 8 - GI Upset SYMAX-SL (HYOSCYAMINE SULFATE) 10/03/2009 16 - Unknown Date Reviewed: 02/15/2024 Reviewed by: Lorenza Reza MD - Fully Assessed Reason for Visit: Results [95] Prescriptions as of 02/21/2024 - montelukast (SINGULAIR) 10 mg tablet Take 1 tablet by mouth daily at bedtime. - predniSONE (DELTASONE) 10 mg tablet Take 4 daily for three days, then 3 daily for three days, then 2 daily for three days, then one daily for three days. - Zolpidem (AMBIEN CR) 12.5 mg CR tablet Take 1 tablet by mouth at bedtime as needed for sedation for up to 90 days. - montelukast (SINGULAIR) 10 mg tablet Take 1 tablet by mouth daily at bedtime. - pantoprazole DR (PROTONIX) 20 mg tablet Take 1 tablet by mouth two times a day as needed. - Benzonatate 200 mg capsule Take 1 capsule by mouth three times a day as needed. - cetirizine (ZYRTEC) 10 mg tablet Take 1 tablet by mouth once daily. - dextromethorphan-guaiFENes in (MUCINEX DM) 30-600 mg per tablet Take 1 tablet by mouth two times a day. - VITAFUSION WOMEN GUMMY as directed. - albuterol HFA (VENTOLIN HFA) 90 mcg/actuation inhaler Inhale 2 Puffs as instructed every 4 hours as needed. - nystatin (NYSTOP) powder Apply 1 application to affected area three times daily. to affected area as needed - budesonide (PULMICORT) 0.25 mg/2 mL nebulizer solution USE 2 ML VIA NEBULIZER TWICE DAILY. DX: MILD PERSISTENT ASTHMA J45.21 Meds Comments as of 11/08/2009: Problem List As Of Date 02/21/2024 Noted Resolved Unspecified constipation [K59.00] 12/22/2011 Diverticulosis of large intestine [K57.30] Senile osteoporosis [M81.0] 01/05/2006 Diaphragmatic hernia without mention of obstruc*01/24/2007 07/22/2017 Routine general medical examination at a health*11/20/2009 12/22/2011 Class: Chronic Routine gynecological examination [Z01.419] 11/20/2009 12/22/2011 Class: Chronic Diarrhea [R19.7] 11/20/2009 12/22/2011 Mixed hyperlipidemia [E78.2] 11/20/2009 Delayed gastric emptying [K30] 09/18/2011 Non morbid obesity [E66.9] 08/20/2015 07/22/2017 Encounter for gynecological examination without*12/06/2015 06/15/2019 Encounter for screening for cardiovascular diso*12/06/2015 06/15/2019 Colon cancer screening [Z12.11] 12/06/2015 06/15/2019 Elevated fasting blood sugar [R73.01] 12/10/2015 Chronic bilateral low back pain [M54.50, G89.29]01/01/2016 06/15/2019 Gastric diverticulum [K31.4] 03/13/2016 PUD (peptic ulcer disease) [K27.9] 03/13/2016 Gastroesophageal reflux disease with esophagiti*03/13/2016 Mild persistent asthma without complication [J4*07/22/2016 Hiatal hernia [K44.9] 07/22/2016 06/15/2019 Primary insomnia [F51.01] 07/22/2016 Chronic pain of left knee [M25.562, G89.29] 07/22/2016 06/15/2019 Medicare annual wellness visit, subsequent [Z00*01/21/2017 Well adult exam [Z00.00] 01/21/2017 06/15/2019 Left hip pain [M25.552] 09/14/2017 06/15/2019 Low back pain [M54.50] 09/14/2017 Essential tremor [G25.0] 01/19/2018 Bilateral carotid artery stenosis [I65.23] 01/03/2019 Left lateral abdominal pain [R10.9] 02/15/2019 06/15/2019 Arthritis of left knee [M17.12] 02/19/2019 Obesity, Class I, BMI 30-34.9 [E66.9] 06/15/2019 Palpitations [R00.2] 08/25/2019 Medication management [Z79.899] 08/25/2019 Left lateral abdominal pain [R10.9] 02/15/2019 Chronic bilateral low back pain [M54.50, G89.29]01/01/2016 Allergic rhinitis (more content not included)... Normal [facility] 25(OH)D3 SerPl-mCncon 2023 25-hydroxyvitamin D3 [Mass/Vol] 21.1 ng/mL Low 31.0-80.0 [facility] Comment on above: Order Comment: Speci men Type: BLOOD SPECIMEN Ordering Facility: [facility] Address: [address] [place] [address] Result Comment: Clas sification of 25 OH Vitamin D status: Deficiency/Insufficiency: < or = 30 ng/ml. Sufficiency/Optimal Levels: 31-80 ng/mL Toxicity: > 100 ng/mL. Test performed by chemiluminescent immunoassay. Performed By: #### 1 [id number] #### [facility] CLIA [id number] [address] [place] [address] OF [facility] CNOVon 02-15-2024 CNOV Office Visit ([facility]MWS ) -- NORA CAMARILLO ([id number]) 1950 [address] [place] [address]* Date Time Provider Department 02/15/24 11:00 AM LORENZA REZA [facility] During your visit today, we recorded the following information about you: Pulse Respiration Blood pressure Weight 72/minute 17/minute 130/76 84.8 kg Lorenza Reza MD 02/15/2024 2:27 PM Signed . Respiratory [place] Note Patient name: Nora Camarillo PCP: Scot Blank MD CC: follow up cough HPI: Nora Camarillo 73 year old female non-smoker with PMH significant for obesity, hiatal hernia, HLD, PAD, asthma last seen in pulmonary clinic in 2017, new to me. At that time she was intolerant of inhalers (Advair, Symbicort, Foradil) was using her albuterol 2-3 times a day, pulmonary function test without significant obstruction but exhaled nitric oxide level elevated at 34 ppb. Settled on nebulized budesonide, but does not use it on a regular basis. In the past she had significant nocturnal awakenings, dyspnea on exertion, wheezing, mainly dry cough and chest congestion. Known significant GERD with hiatal hernia, s/p Walter fundoplication without improvement in her nocturnal symptoms. Her asthma is worsened by exposure to candles, fumes, heat and humidity and cold air. She also has known allergies, never received immunotherapy, and was not on allergy medication. 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 She was started on Singulair approximately 3 months ago with marked improvement in her symptoms. Not needing her albuterol. She was told that she needed to reestablish in the pulmonary clinic if she wanted to continue on her allergy medication. DATA: PFT: Spirometry shows mid flows obstruction that improves postbronchodilator SERVICE DATE: 02/15/2024 SERVICE TIME: 11:40 AM Oral Exhaled Nitric Oxide measurement: 14.0 (ppb) RESULT 05/21/15: Mean Oral Exhaled NO (ppb): 34 Labs: Review of past laboratory testing shows eosinophilia in 2019. Imaging / Diagnostic Studies: DATE OF EXAM: Sep 06 2023 12:07PM WOX 5291 - XR CHEST 2V FRONTAL/LAT / CLINICAL HISTORY: Bronchitis MQ: [id number] EXAM DATE/TIME: 09/06/2023 12:07 PM COMPARISON: Chest x-ray dated October 19, 2022 RESULT: Lines, tubes, and devices: None. Lungs and pleura: No consolidation. No lung mass. No pleural effusion. No pneumothorax. Cardiomediastinal silhouette: Normal cardiomediastinal silhouette. Bones and soft tissues: Mild degenerative changes. IMPRESSION: No acute radiographic abnormality. Chest x-ray reviewed and is unremarkable PAST MEDICAL HISTORY 01/03/2019: Abnormal computed tomography angiography (CTA) Comment: right upper ICA with abnormality, consult to vascular 12/201804/13/2019: Acute meniscal tear of left knee 02/12/2022: Advance directive discussed with patient Comment: Discussed 02/2022 No date: Allergies 09/27/2020: Anxiety and depression 02/19/2019: Arthritis of left knee 01/03/2019: Bilateral carotid artery stenosis Comment: US: 12/2018 20-40% tatyana 01/01/2016: Chronic bilateral low back pain Comment: Seen [facility]i ortho 09/27/2020: Chronic pain of both ankles 09/27/2020: Chronic pain of left knee 09/30/2021: Chronic pain of right knee Comment: Sees [facility] 08/25/2019: Current use of proton pump inhibitor 06/20/2019: 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 Comment: S/p surgery 06/201909/18/2011: Delayed gastric emptying No date: Diverticulosis of large intestine 12/10/2015: Elevated fasting blood sugar 01/19/2018: Essential tremor 09/27/2020: Family history of thyroid disease 03/13/2016: Gastric diverticulum 03/13/2016: Gastroesophageal reflux disease with esophagitis Comment: S/P Walter 02/[address] rojas 07/22/2016: Hiatal hernia 09/14/2017: Left hip pain Comment: Seeing [place] tutu Martinez 02/15/2019: Left lateral abdominal pain Comment: Mid quadrant, chronic and paroxysmal. 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 Linn 11/20/2009: Mixed hyperlipidemia 06/27/2021: Mixed incontinence Comment: Seeing Dr. Queen 06/15/2019: Obesity, Class I, BMI 30-34.9 08/25/2019: Palpitations 07/22/2016: Primary insomnia 03/13/2016: PUD (peptic ulcer disease) Comment: Hx of ulcer 2018 and two again in 10/2020. No NSAID's (aspirin held 10/2020) 11/08/2023: Second hand smoke exposure 01/05/2006: Senile osteoporosis Comment: Clinical Team Manager following (Dr. Dobson) 11/2009: Simple cyst of breast Comment: Left retroareolar No date: Unspecifi (more content not included)... Normal [facility] Comprehensive metabolic 2000 panelon 02-15-2024 Albumin [Mass/Vol] 4.4 g/dL Normal 3.9-4.9 [facility] Comment on above: Order Comment: Speci men Type: BLOOD SPECIMEN Ordering Facility: [facility] Address: [address] [place] [address] Performed By: #### 2 4323-8 #### [facility] CLIA [id number] [address] [place] [address] [place] ALP [Catalytic activity/Vol] 97 U/L Normal 34-123 [facility] Comment on above: Order Comment: Speci men Type: BLOOD SPECIMEN Ordering Facility: [facility] Address: [address] [place] [address] Performed By: #### 2 4323-8 #### [facility] CLIA [id number] [address] [place] [address] [place] ALT [Catalytic activity/Vol] 21 U/L Normal 7-38 [facility] Comment on above: Order Comment: Speci men Type: BLOOD SPECIMEN Ordering Facility: [facility] Address: [address] [place] [address] Performed By: #### 2 4323-8 #### [facility] CLIA [id number] [address] [place] [address] [place] Anion gap [Moles/Vol] 10 mmol/L Normal 8-15 [facility] Comment on above: Order Comment: Speci men Type: BLOOD SPECIMEN Ordering Facility: [facility] Address: [address] [place] [address] Performed By: #### 2 4323-8 #### [facility] CLIA [id number] [address] [place] [address] [place] AST [Catalytic activity/Vol] 19 U/L Normal 13-35 [facility] Comment on above: Order Comment: Speci men Type: BLOOD SPECIMEN Ordering Facility: [facility] Address: [address] [place] [address] Performed By: #### 2 4323-8 #### [facility] CLIA [id number] [address] [place] [address] [place] Bilirubin [Mass/Vol] 0.6 mg/dL Normal 0.2-1.3 [facility] Comment on above: Order Comment: Speci men Type: BLOOD SPECIMEN Ordering Facility: [facility] Address: [address] [place] [address] Performed By: #### 2 4323-8 #### [facility] CLIA [id number] [address] [place] [address] [place] Calcium [Mass/Vol] 9.3 mg/dL Normal 8.5-10.2 [facility] Comment on above: Order Comment: Speci men Type: BLOOD SPECIMEN Ordering Facility: [facility] Address: [address] [place] [address] Performed By: #### 2 4323-8 #### [facility] CLIA [id number] [address] [place] [address] [place] Chloride [Moles/Vol] 103 mmol/L Normal 98-107 [facility] Comment on above: Order Comment: Speci men Type: BLOOD SPECIMEN Ordering Facility: [facility] Address: [address] [place], [place] [address] Performed By: #### 2 4323-8 #### [facility] CLIA [id number] [address] [place] [address] [place] CO2 [Moles/Vol] 24 mmol/L Normal 22-30 [facility] Comment on above: Order Comment: Speci men Type: BLOOD SPECIMEN Ordering Facility: [facility] Address: [address] [place], [place] [address] Performed By: #### 2 4323-8 #### [facility] CLIA [id number] [address] [place] [address] [place] Creatinine [Mass/Vol] 0.85 mg/dL Normal 0.58-0.96 [facility] Comment on above: Order Comment: Vinita fierro Type: BLOOD SPECIMEN Ordering Facility: [facility] Address: [address] [place] [address] Performed By: #### 2 4323-8 #### [facility] CLIA [id number] [address] [place] [address] [place] Creatinine and Glomerular filtration rate.predicted panel (S/P/Bld) 72 mL/min/1.73m??? Normal >=60 [facility] Comment on above: Order Comment: Vinita fierro Type: BLOOD SPECIMEN Ordering Facility: [facility] Address: [address] [place] [address] Result Comment: Brittani mated Glomerular Filtration Rate (eGFR) is calculated using the 2020 CKD-EPI creatinine equation. This equation utilizes serum creatinine, sex, and age as parameters. The creatinine assay has traceable calibration to isotope dilution-mass spectrometry. Refer to KDIGO guidelines for clinical interpretation. In patients with unstable renal function, e.g. those with acute kidney injury, the eGFR may not accurately reflect actual GFR. Performed By: #### 2 4323-8 #### [id number] [address] [place] [address] [place] Glucose [Mass/Vol] 114 mg/dL High 74-99 [facility] Comment on above: Order Comment: Vinita fierro Type: BLOOD SPECIMEN Ordering Facility: [facility] Address: [address] [id number] Result Comment: The Canadian Diabetes Association (ADA) provides guidance for cutoff values for fasting glucose and random glucose. The ADA defines fasting as no caloric intake for at least 8 hours. Fasting plasma glucose results between 100 to 125 mg/dL indicate increased risk for diabetes (prediabetes). Fasting plasma glucose results greater than or equal to 126 mg/dL meet the criteria for diagnosis of diabetes. In the absence of unequivocal hyperglycemia, results should be confirmed by repeat testing. In a patient with classic symptoms of hyperglycemia or hyperglycemic crisis, random plasma glucose results greater than or equal to 200 mg/dL meet the criteria for diagnosis of diabetes. Reference: Standards of Medical Care in Diabetes 2016, Canadian Diabetes Association. Diabetes Care. 2016.39(Suppl 1). Performed By: #### 2 4323-8 #### [facility] CLIA [id number] [address] [place] [address] [place] Potassium [Moles/Vol] 4.4 mmol/L Normal 3.7-5.1 [facility] Comment on above: Order Comment: Vinita fierro Type: BLOOD SPECIMEN Ordering Facility: [facility] Address: [address] [place] [address] Performed By: #### 2 4323-8 #### [facility] CLIA [id number] [address] [place] [address] [place] Protein [Mass/Vol] 7.4 g/dL Normal 6.3-8.0 [facility] Comment on above: Order Comment: Vinita fierro Type: BLOOD SPECIMEN Ordering Facility: [facility] Address: [address] [place], [place] [address] Performed By: #### 2 4323-8 #### [id number] [address] [place] [address] [place] Sodium [Moles/Vol] 137 mmol/L Normal 136-144 [facility] Comment on above: Order Comment: Vinita fierro Type: BLOOD SPECIMEN Ordering Facility: [facility] Address: [address] [place] [address] Performed By: #### 2 4323-8 #### [facility] CLIA [id number] [address] [place] [address] [place] Urea nitrogen [Mass/Vol] 17 mg/dL Normal 7-21 [facility] Comment on above: Order Comment: Vinita fierro Type: BLOOD SPECIMEN Ordering Facility: [facility] Address: [address] [place] [address] Performed By: #### 2 4323-8 #### [facility] CLIA [id number] [address] [id number] [place] Eosinophils Auto (Bld) [#/Vo l]on 02-15-2024 Eosinophils (Bld) [#/Vol] 0.43 10*3/uL [facility] Interpretation and review of laboratory results Normal [facility] Eosinophils (Bld) [#/Vol] 0.43 10*3/uL Normal <0.46 [facility] Comment on above: Order Comment: Vinita fierro Type: BLOOD SPECIMEN Ordering Facility: [facility] Address: [address] [place] [address] Performed By: #### L [facility], 2132-9 #### [facility] CLIA [id number] [address] [place] [address] [place] HbA1c (Bld)on 02-15-2024 Average glucose Estimated from glycated hemoglobin (Bld) [Mass/Vol] 103 mg/dL Normal [facility] Comment on above: Order Comment: Vinita fierro Type: BLOOD SPECIMEN Ordering Facility: [facility] Address: [address] [place] [address] Result Comment: eAG: (Estimated average glucose) is a calculated value from HgbA1c and is assistance representative of the average blood glucose level in the last 2-3 month period. Performed By: #### 5 5454-3 #### [facility] CLIA [id number] [address] [place], [place] [address]K [id number] [place] [address] [place] HbA1c (Bld) [Mass fraction] 5.2 % Normal 4.3-5.6 [facility] Comment on above: Order Comment: Vinita fierro Type: BLOOD SPECIMEN Ordering Facility: [facility] Address: [address] [place] [address] Result Comment: Amer ican Diabetes Association guidelines indicate that patients with HgbA1c in the range 5.7-6.4% are at increased risk for development of diabetes, and intervention by lifestyle modification may be beneficial. HgbA1c greater or equal to 6.5% is considered diagnostic of diabetes. Performed By: #### 5 5454-3 #### [facility] CLIA [id number] [address] [id number] [address] [place] IgE SerPl-aCncon 02-15-2024 IgE Qn 145.0 kU/l High <114.0 [facility] Comment on above: Order Comment: Vinita fierro Type: BLOOD SPECIMEN Ordering Facility: [facility] Address: [address] [place] [address] Performed By: #### L NAVEED, 2132-03 #### [facility] CLIA [id number] [address] STATES OF [facility] LIPID PANEL, NONFASTINGon Cholesterol [Mass/Vol] 199 mg/dL Normal <200 [facility] Comment on above: Order Comment: Vinita fierro Type: BLOOD SPECIMEN Ordering Facility: [facility] Address: [address] [place] [address] Result Comment: <200 mg/dL, Desirable 200-239 mg/dL, Borderline high >239 mg/dL, High Performed By: #### L IPVISHAL, 2132-03 #### [facility] CLIA [id number] [address] STATES OF [facility] HDL CHOLESTEROL, NF 61 mg/dL Normal >39 [facility] Comment on above: Order Comment: Vinita fierro Type: BLOOD SPECIMEN Ordering Facility: [facility] Address: [address] [place] [address] Result Comment: 40-5 9 mg/dL, Acceptable >59 mg/dL, High: Negative risk factor for coronary heart disease <40 mg/dL, Low: Positive risk factor for coronary heart disease Performed By: #### L IPVISHAL, 2132-03 #### [facility] CLIA [id number] [address] [place] LDL CHOLESTEROL, NF 118 mg/dL High <100 [facility] Comment on above: Order Comment: Vinita fierro Type: BLOOD SPECIMEN Ordering Facility: [facility] Address: [address] [place] [address] Result Comment: <100 mg/dL, Optimal 100-129 mg/dL, Near optimal/above optimal 130-159 mg/dL, Borderline high 160-189 mg/dL, High >189 mg/dL, Very high Secondary prevention optimal LDL Cholesterol levels are recommended to be < 70 mg/dL Performed By: #### L IPNF, 2132-03 #### [facility] CLIA [id number] [address] LDL/HDL RATIO, NF 1.93 mg/dL Normal <2.54 [facility] Comment on above: Order Comment: Vinita fierro Type: BLOOD SPECIMEN Ordering Facility: [facility] Address: [address] [place] [address] Result Comment: Refe rence: 1. National Cholesterol Education Program ATP III Guideline At-A-Glance Quick Desk Reference: National Heart, Lung, and Blood [place]. National Institutes of Health. 2001: NIH Publication No. 01-3305. 2. An International Atherosclerosis Society position paper: global recommendations for the management of dyslipidemia: executive summary, Atherosclerosis. 2014: 232(2):410-413. Performed By: #### L IPVISHAL, 2132-03 #### [facility] CLIA [id number] [address] NON HDL CHOL, NF 138 mg/dL High <130 [facility] Comment on above: Order Comment: Vinita fierro Type: BLOOD SPECIMEN Ordering Facility: [facility] Address: [address] [place] [address] Result Comment: <130 mg/dL, Optimal 130-159 mg/dL, Near optimal/above optimal 160-189 mg/dL, Borderline high 190-219 mg/dL, High >219 mg/dL, Very high Secondary prevention optimal non HDL Cholesterol levels are recommended to be <100 mg/dL Performed By: #### L IPNF, 2132-03 #### [facility] CLIA [id number] [address] OF [facility] T CHOL/HDL RATIO NF 3.26 mg/dL Normal <5.10 [facility] Comment on above: Order Comment: Vinita fierro Type: BLOOD SPECIMEN Ordering Facility: [facility] Address: [address] [place] [address] Performed By: #### L IPNF, 2132-03 #### [facility] CLIA [id number] [address] TRIGLYCERIDES, NF 100 mg/dL Normal <150 [facility] Comment on above: Order Comment: Jessicai men Type: BLOOD SPECIMEN Ordering Facility: [facility] Address: [address] [place] [address] Result Comment: <150 mg/dL, Normal 150-199 mg/dL, Borderline high 200-499 mg/dL, High >499 mg/dL, Very high Performed By: #### L IPNF, 2132-03 #### [facility] CLIA [id number] [address] VLDL CHOLESTEROL, NF 20 mg/dL Normal <30 [facility] Comment on above: Order Comment: Vinita fierro Type: BLOOD SPECIMEN Ordering Facility: [facility] Address: [address] [place] [address] Performed By: #### L IPNF, 2132-03 #### [facility] CLIA [id number] [address] No Panel Informationon 02-14 AGT55-54% POST (L/S) 1.49 L/S [facility] ZQF95-00% PRE (L/S) 0.84 L/S [facility] FEV1 PRE (L) 1.89 L [facility] FEV1/FVC POST (%) 68 % [facility] FEV1/FVC PRE (%) 65 % [facility] d [facility] FEV1_POST (L) 2.12 L [facility] FVC POST (L) 3.12 L [facility] FVC PRE (L) 2.90 L [facility] PEF POST (L/S) 6.43 L/S [facility] PEF PRE (L/S) 5.75 L/S [facility] [address] [facility], [place] [address] Test Date: 2024-02-15 Pat Name: NORA CAMARILLO Department: Room: Gender: Female [employer]: : 1950 Requested By: Order Number: [id number] Reading MD: Lorenza Reza MD Interpretive Statements Current ATS/ERS acceptability and repeatability standards for spirometry met. Start of test and EOFE criteria met. 2 puffs Albuterol (180 mcg) delivered by MDI via holding chamber. HR pre = 77/min, HR post = 77/min. IMPRESSION: Spirometry reveals a reduced FEV1/FVC with normal FEV1 and FVC values. This could reflect a normal presentation or could indicate mild obstruction. Clinical correlation recommended. The increase in FEF 25-75 post-bronchodilator reflects an improvement in the small airway obstruction. Electronically Signed On 02-15-2024 16:14:27 EDT by Lorenza Reza MD ID: [id number] Name: NORA CAMARILLO Race: White Ht: 63.62 in Wt: 187.00 lbs Age: 73 Gender: Female : 1950 Dx: Shortness of breath Smoking Hx: Non-smoker Doctor: LORENZA REZA Test Date: 02/15/2024 Site: Tech: Milena Duckworth PRE-BRONCH POST-BRONCH Pre LLN Pred ULN %Pred Post %Pred %Chg SPIROMETRY FVC (L) 2.90 1.84 2.63 3.44 110 3.12 118 8 FEV1 (L) 1.89 1.40 2.03 2.62 92 2.12 104 11 FEV1/FVC 0.65 0.65 0.79 0.89 82 0.68 86 4 PEF L/s (L/sec) 5.75 3.59 5.28 6.97 108 6.43 121 11 FEF50 (L/sec) 1.25 1.37 2.98 4.59 42 2.06 69 64 FIF50 (L/sec) 4.66 5.24 12 FEF50/FIF50 0.27 90-100 0.39 46 FIVC (L) 2.86 2.92 2 EIK52-78 (L/sec) 0.84 0.77 1.72 3.12 48 1.49 86 76 Time (sec) 11.11 11.09 0 FET PEF (sec) 0.06 0.07 13 LETA (L) 0.06 0.09 51 Vol Extrap % (%) 2 3 41 Comments: Current ATS/ERS acceptability and repeatability standards for spirometry met. Start of test and EOFE criteria met. 2 puffs Albuterol (180 mcg) delivered by MDI via holding chamber. HR pre = 77/min, HR post = 77/min. PULMONARY FUNCTION LAB [facility] Milena Duckworth JAMEYDania T 02/15/2024 11:40 AM RESPIRATORY THERAPY ORAL EXHALED NITRIC OXIDE SERVICE DATE: 02/15/2024 SERVICE TIME: 11:40 AM Oral Exhaled Nitric Oxide measurement: 14.0 (ppb) Normal: Adult <25 ppb, pediatric (<12 years) <20 ppb High Normal / Increased: Adult 25-50 ppb, pediatric (<12 years) 20-35 ppb Moderately raised exhaled Nitric Oxide may indicate underlying inflammation, but note that: Cold and influenza can raise exhaled Nitric Oxide and some patients have higher baseline exhaled Nitric Oxide levels than others. High: Adult >50 ppb, pediatric (<12 years) >35 ppb Indicative of ongoing eosinophilic inflammation. Symptomatic patient likely to respond to steroids. Possible causes (if already on steroids): Poor compliance, recent allergen exposure, steroid dose inadequate, and steroid resistance. Note that not all patients with high exhaled nitric oxide levels display symptoms. Oral Exhaled Nitric Oxide measurement (Previous Encounters) Test Date Oral Exhaled Nitric Oxide (ppb) 02/15/2024 14.0 NAME: Milena PetALISA caputo PATIENT NAME: Nora Camarillo DATE: February 15, 2024 TIME: 11:40 AM [facility] No Panel InformationOrdered By: Milena Duckworth on 02-15-2024 [facility] XR Chest PA and Lateralon IMPRESSION: No acute radiographic abnormality. Buttermaker: NANCY Transcribe Date/Time: Sep 06 2023 4:32P Dictated by : JEN SÁNCHEZ MD This examination was interpreted and the report reviewed and electronically signed by: JEN SÁNCHEZ MD on Feb 26 2024 4:32PM EST DIVISION OF RADIOLOGY * * *Final Report* * * DATE OF EXAM: Sep 06 2023 12:07PM WOX 5291 - XR CHEST 2V FRONTAL/LAT / PROCEDURE REASON: Bronchitis * * * * Physician Interpretation * * * * EXAMINATION: CHEST RADIOGRAPH (2 VIEW FRONTAL & LATERAL) CLINICAL HISTORY: Bronchitis MQ: XC2_6 EXAM DATE/TIME: 09/06/2023 12:07 PM COMPARISON: Chest x-ray dated October 19, 2022 RESULT: Lines, tubes, and devices: None. Lungs and pleura: No consolidation. No lung mass. No pleural effusion. No pneumothorax. Cardiomediastinal silhouette: Normal cardiomediastinal silhouette. Bones and soft tissues: Mild degenerative changes. DIVISION OF RADIOLOGY Provider, Raffi Terry [place] - 09/06/2023 * * *Final Report* * * DATE OF EXAM: Sep 06 2023 12:07PM WOX 5291 - XR CHEST 2V FRONTAL/LAT / PROCEDURE REASON: Bronchitis * * * * Physician Interpretation * * * * EXAMINATION: CHEST RADIOGRAPH (2 VIEW FRONTAL & LATERAL) CLINICAL HISTORY: Bronchitis MQ: XC2_6 EXAM DATE/TIME: 09/06/2023 12:07 PM COMPARISON: Chest x-ray dated October 19, 2022 RESULT: Lines, tubes, and devices: None. Lungs and pleura: No consolidation. No lung mass. No pleural effusion. No pneumothorax. Cardiomediastinal silhouette: Normal cardiomediastinal silhouette. Bones and soft tissues: Mild degenerative changes. IMPRESSION IMPRESSION: No acute radiographic abnormality. Buttermaker: PSCB Transcribe Date/Time: Sep 06 2023 4:32P Dictated by : JEN SÁNCHEZ MD This examination was interpreted and the report reviewed and electronically signed by: JEN SÁNCHEZ MD on Sep 06 2023 4:32PM EST [facility] Radiology Study observation (narrative) [facility] XR Chest PA and LateralOrder ed By: [facility] Provider on 09-06-2023 [facility] DXA-AXIAL SKELETONon 023 LOWEST T-SCORE -2.9 [facility] Foot 2 Viewson 12-18-2022 Foot 2 Views [facility] Imaging Services [address] [place] [address] Foot 2 Views MR#: [id number] Acct: [id number] Name: NORA CAMARILLO Rep #: [id number] : 1950 F 72 From: Alyx carmichael MD PCP: Dr. Scot Blank MD Status: [facility] Study: Foot 2 Views Date of Exam: 12/18/22 Exam# [id number] Ordering Dr: Gina Gibson DPSangita HISTORY: FB. TECHNIQUE: 2 spot images. COMPARISON: US 11/16/2022. FINDINGS: OSSEOUS STRUCTURES: Surgical instruments over the left foot with a linear foreign body noted between the first and second metatarsals on the first image. FLUOROSCOPY TIME: 1 minute 26 seconds. RADIATION DOSE: 0.73 mGY RAD/Foot 2 Views IMPRESSION: Image guidance for foreign body removal. Please refer to operative note. Electronically Signed: Alyx Gamboa MD at 9:36 EDT Reading Location ID and State: [facility] / [place] Tel , Service support , CC: CONSTANTINO Gibson; Dr. Scot Blank MD Buttermaker: Signed Normal [facility] Operative Reporton 3 Operative Report [facility] Medical Records Department [address] [facility] [place] [address] Operative Report 12/18/22 0850 MR#: [id number] Acct: [id number] Name: NORA CAMARILLO Rep #: [id number] : 1950 72 From: Gina Gibson DPM PCP: Dr. Scot Blank MD Status:[facility] Location: [place] [address] Report of Operation Date of Procedure: 12/18/22 Pre-Operative Diagnosis: 1) left foot foreign body metallic unknown 2) pain left foot related to foreign body Post-Operative Diagnosis: Same Surgery/Procedure Performed:: Removal of foreign body left foot Description of Surgical Findings:: Left foot foreign body was confirmed in the office using radiographic imaging. Ultrasound was used for further detailing the foreign body. Appear to be a needle shaped metallic object. This correlated with the patient's pain and symptoms. Ultrasound demonstrated that the foreign body was down to the level of the flexor tendon. Surgeon: Gina Gibson medical recruiter: None (farrah beverage) Type of Anesthesia: General/Regional Special Medications: 20 cc half percent Marcaine plain used an ankle block Specimen's removed: Needle type metallic object sent to pathology Drains: None Estimated Blood Loss (mL): Minimal Description of Procedure: Patient brought back to the operating room placed comfortably in supine position on the operating room table. Patient induced under general anesthesia. All osseous prominences offloaded to prevent any compression neuropraxia. Well-padded left thigh tourniquet applied. No hip bump required. Left lower extremity ankle block was performed using standard technique with 20 cc of half percent Marcaine plain. Left lower extremity was scrubbed prepped draped using typical aseptic fashion. Once cleared by anesthesia the left lower extremity was elevated exsanguinated tourniquet was inflated to 300 mmHg. Using DeFrank in gauge needles in multiple planes of use on fluoroscopy the needle shaped object was triangulated in both its depth and location in between the first and second metatarsal plantarly. Once the position was confirmed and identified incision was made and dissection was performed following the needle that closely correspond with the location of the metallic foreign body. Incision was made through epidermis dermis into subcutaneous tissue any bleeders at this time were identified and cauterized blunt dissection was taken down the level of plantar fascia this was linearly transected and dissected all the way as the needle shaped object was confirmed to be down to level of flexor tendon. Once we are down to the level of flexor tendon. A small incision was made through the flexor tendon and the metallic object became apparent. This was removed in its entirety and confirmed using fluoroscopic imaging and passed to the back table sent to pathology for further examination. The incision was then flushed with copious amounts of normal sterile saline tourniquet was let down to note any bleeders at the site none were noted deep closure was performed with buried interrupted 2-0 Vicryl subcutaneous closure performed with buried interrupted 2-0 Vicryl skin closure performed with 2-0 Prolene using horizontal mattress technique. Incision dressed with bacitracin Adaptic 4 x 4's ABD pads Kerlix and Kiran bandage. Patient transferred to PACU vital signs stable vascular status intact all digits for further monitoring prior to discharge patient tolerated procedure and anesthesia well apparent satisfactory condition. There is no evidence of infection at the foreign body site. Patient up-to-date on her tetanus. No complications noted. Entire foreign body was removed with this procedure. 12/18/22854 Cosigner Signature (if applicable): CC: CONSTANTINO Gibson; Dr. Scot Blank MD Signed Normal [facility] Surgery Specimen Level Ion 0 12-18-2022 Surgery Specimen Level I Patient Age/Sex Location Account Attending Physician NORA CAMARILLO 72/F [facility] [id number] Dr. Gina Gibson DPM Specimen: [id number] Received: 12/18/22 Status: TOSHIA Eugene Num: [id number] Spec Type: FOREIGN B Subm Dr: Dr. Gina Gibson DPM HEADER OPERATION: Removal of needle/foreign body left foot PRE-OP DIAGNOSIS: Foreign body left foot TISSUE SUBMITTED: Foreign body left foot MICROSCOPIC DIAGNOSIS Foreign body (metallic wire like foreign body, gross only). HARMAN:wu 12/21/2022 MICROSCOPIC DESCRIPTION Slides are reviewed. GROSS DESCRIPTION Received in fixative is one container labeled with the patient's name and designated foreign body left foot. The specimen consists of a piece of metallic wire like foreign body measuring 1.6 cm in length and <0.1 cm in diameter. The specimen is for gross identification only. / HARMAN:wu 12/18/2022 CPT: 59541 Patient Age/Sex Location Account Attending Physician NORA CAMARILLO 72/F [facility] [id number] Dr. Gina Gibson DPM Signed (signature on file) Dr. Jerzy Lu MD 12/21/22 0918 Normal [facility] Comment on above: Performed By: #### Soha BALLESTEROS #### [facility] [address] [place], [address] CBC W/Diff, Automatedon 05-3 0-2022 Absolute Lymph 1.98 X10 3/uL Normal 0.83-4.51 [facility] Comment on above: Order Comment: Order Date: 12/08/22 Order Info: 0184-1 - CBCD Performed By: #### L 100.0100, L500.4050 #### [facility] [address] [place], [address] Absolute Neut 2.3 X10 3/uL Normal 2.0-7.7 [facility] Comment on above: Order Comment: Order Date: 12/08/22 Order Info: 0184-1 - CBCD Performed By: #### L 100.0100, L500.4050 #### [facility] [address] [place], [address] Basophils/100 WBC (Bld) 0.9 % Normal 0-1 [facility] Comment on above: Order Comment: Order Date: 12/08/22 Order Info: 0184-1 - CBCD Performed By: #### L 100.0100, L500.4050 #### [facility] [address] [place], [address] Eosinophils/100 WBC (Bld) 6.8 % High 0-5 [facility] Comment on above: Order Comment: Order Date: 12/08/22 Order Info: 0184-1 - CBCD Performed By: #### L 100.0100, L500.4050 #### [facility] [address] [place], [address] Erythrocyte distribution width (RBC) [Ratio] 13.1 % Normal 11.6-14.6 [facility] Comment on above: Order Comment: Order Date: 12/08/22 Order Info: 0184- - CBCD Performed By: #### L 100.0100, L500.4050 #### [facility] [address] [place], [address] Hematocrit (Bld) [Volume fraction] 43.8 % Normal 37-47 [facility] Comment on above: Order Comment: Order Date: 12/08/22 Order Info: 0184- - CBCD Performed By: #### L 100.0100, L500.4050 #### [facility] [address] [place], [address] Hemoglobin (Bld) [Mass/Vol] 14.4 g/dL Normal 12.0-15.0 [facility] Comment on above: Order Comment: Order Date: 12/08/22 Order Info: 0184- - CBCD Performed By: #### L 100.0100, L500.4050 #### [facility] [address] [place], [address] IG% 0.200 Normal 0.0-0.9 [facility] Comment on above: Order Comment: Order Date: 12/08/22 Order Info: 0184- - CBCD Result Comment: IG% - Immature Granulocytes (promyelocytes, myelocytes and metamyelocytes) > 1% indicates that a LEFT SHIFT is Present. Performed By: #### L 100.0100, L500.4050 #### [facility] [address] [place], [address] Lymphocytes/100 WBC (Bld) 37.2 % Normal 19-41 [facility] Comment on above: Order Comment: Order Date: 12/08/22 Order Info: 0184-1 - CBCD Performed By: #### L 100.0100, L500.4050 #### [facility] [address] [place], [address] MCH (RBC) [Entitic mass] 31.6 pg Normal 27.0-32.0 [facility] Comment on above: Order Comment: Order Date: 12/08/22 Order Info: 0184-1 - CBCD Performed By: #### L 100.0100, L500.4050 #### [facility] [address] [place], [address] MCHC (RBC) [Mass/Vol] 32.9 g/dL Normal 32-36 [facility] Comment on above: Order Comment: Order Date: 12/08/22 Order Info: 0184-1 - CBCD Performed By: #### L 100.0100, L500.4050 #### [facility] [address] [place], [address] MCV (RBC) [Entitic vol] 96.3 fL Normal 81-99 [facility] Comment on above: Order Comment: Order Date: 12/08/22 Order Info: 0184-1 - CBCD Performed By: #### L 100.0100, L500.4050 #### [facility] [address] [place], [address] Monocytes/100 WBC (Bld) 12.6 % High 0-10 [facility] Comment on above: Order Comment: Order Date: 12/08/22 Order Info: 0184-1 - CBCD Performed By: #### L 100.0100, L500.4050 #### [facility] [address] [place], [address] Neutrophils/100 WBC (Bld) 42.3 % Low 47-70 [facility] Comment on above: Order Comment: Order Date: 12/08/22 Order Info: 0184-1 - CBCD Performed By: #### L 100.0100, L500.4050 #### [facility] [address] [place], [address] Nucleated RBC (Bld) [#/Vol] 0 10*3/uL Normal 0-5 [facility] Comment on above: Order Comment: Order Date: 12/08/22 Order Info: 0184-1 - CBCD Performed By: #### L 100.0100, L500.4050 #### [facility] [address] [place], [address] Platelet mean volume (Bld) [Entitic vol] 10.8 fL Normal 6.2-12.0 [facility] Comment on above: Order Comment: Order Date: 12/08/22 Order Info: 0184-1 - CBCD Performed By: #### L 100.0100, L500.4050 #### [facility] [address] [place], [address] Platelets (Bld) [#/Vol] 334 10*3/uL Normal 150-450 [facility] Comment on above: Order Comment: Order Date: 12/08/22 Order Info: 0184-1 - CBCD Performed By: #### L 100.0100, L500.4050 #### [facility] [address] [place], [address] RBC (Bld) [#/Vol] 4.55 10*6/uL Normal 4.2-5.4 [facility] Comment on above: Order Comment: Order Date: 12/08/22 Order Info: 0184-1 - CBCD Performed By: #### L 100.0100, L500.4050 #### [facility] [address] [place], [address] RDW SD 46.5 fl High 35.1-43.9 [facility] Comment on above: Order Comment: Order Date: 12/08/22 Order Info: 0184-1 - CBCD Performed By: #### L 100.0100, L500.4050 #### [facility] [address] [place], [address] WBC (Bld) [#/Vol] 5.3 10*3/uL Normal 4.4-11.0 [facility] Comment on above: Order Comment: Order Date: 12/08/22 Order Info: 0184-1 - CBCD Performed By: #### L 100.0100, L500.4050 #### [facility] [address] [place], [address] Comprehensive Metabolic Prof ilon 12-08-2022 Albumin [Mass/Vol] 3.6 g/dL Normal 3.2-5.0 [facility] Comment on above: Order Comment: Order Date: 12/08/22 Order Info: 0786-1 - CMP ok nonfasting Performed By: #### L 100.0100, L500.4050 #### [facility] [address] [place], [address] Albumin/Globulin [Mass ratio] 1.0 {ratio} Normal 0.9-2.4 [facility] Comment on above: Order Comment: Order Date: 12/08/22 Order Info: 0786-1 - CMP ok nonfasting Performed By: #### L 100.0100, L500.4050 #### [facility] [address] [place], [address] ALK P 111 U/L Normal 45-117 [facility] Comment on above: Order Comment: Order Date: 12/08/22 Order Info: 0786-1 - CMP ok nonfasting Performed By: #### L 100.0100, L500.4050 #### [facility] [address] [place], [address] ALT [Catalytic activity/Vol] 29 U/L Normal 13-56 [facility] Comment on above: Order Comment: Order Date: 12/08/22 Order Info: 0786-1 - CMP ok nonfasting Performed By: #### L 100.0100, L500.4050 #### [facility] [address] [place], [address] AST [Catalytic activity/Vol] 17 U/L Normal 15-37 [facility] Comment on above: Order Comment: Order Date: 12/08/22 Order Info: 0786-1 - CMP ok nonfasting Performed By: #### L 100.0100, L500.4050 #### [facility] [address] [place], [address] Bilirubin [Mass/Vol] 0.50 mg/dL Normal 0.20-1.00 [facility] Comment on above: Order Comment: Order Date: 12/08/22 Order Info: 0786-1 - CMP ok nonfasting Result Comment: For patients on eltrombopag therapy, use of Dimension [place] TBIL is not recommended. Performed By: #### L 100.0100, L500.4050 #### [facility] [address] [place], [address] BUN/CRE 14.8 RATIO Normal 10-20 [facility] Comment on above: Order Comment: Order Date: 12/08/22 Order Info: 0786-1 - CMP ok nonfasting Performed By: #### L 100.0100, L500.4050 #### [facility] [address] [place], [address] CA,Total 8.9 mg/dL Normal 8.5-10.1 [facility] Comment on above: Order Comment: Order Date: 12/08/22 Order Info: 0786-1 - CMP ok nonfasting Performed By: #### L 100.0100, L500.4050 #### [facility] [address] [place], [address] Chloride [Moles/Vol] 109 mmol/L High 98-107 [facility] Comment on above: Order Comment: Order Date: 12/08/22 Order Info: 0786-1 - CMP ok nonfasting Performed By: #### L 100.0100, L500.4050 #### [facility] [address] [place], [address] CO2 [Moles/Vol] 23.0 mmol/L Normal 21.0-32.0 [facility] Comment on above: Order Comment: Order Date: 12/08/22 Order Info: 0786-1 - CMP ok nonfasting Performed By: #### L 100.0100, L500.4050 #### [facility] [address] [place], [address] Creatinine [Mass/Vol] 0.88 mg/dL Normal 0.55-1.02 [facility] Comment on above: Order Comment: Order Date: 12/08/22 Order Info: 0786-1 - CMP ok nonfasting Result Comment: The validity of the calculated GFR GFRAA in patients over 70 years has not been determined. Clinical correlation is essential. Performed By: #### L 100.0100, L500.4050 #### [facility] [address] [place], [address] EST GFR - AA 81 mL/min Normal >60 [facility] Comment on above: Order Comment: Order Date: 12/08/22 Order Info: 0786-1 - CMP ok nonfasting Result Comment: Afri can [place] GFR Calc Performed By: #### L 100.0100, L500.4050 #### [facility] [address] [place], [address] GAP 9 Normal 5-15 [facility] Comment on above: Order Comment: Order Date: 12/08/22 Order Info: 0786-1 - CMP ok nonfasting Performed By: #### L 100.0100, L500.4050 #### [facility] [address] [place], [address] GFR/1.73 sq M.predicted among non-blacks MDRD (S/P/Bld) [Vol rate/Area] 67 mL/min/{1.73_m2} Normal >60 [facility] Comment on above: Order Comment: Order Date: 12/08/22 Order Info: 0786-1 - CMP ok nonfasting Result Comment: Non- GFR Calc Performed By: #### L 100.0100, L500.4050 #### [facility] [address] [place], [address] Globulin (S) [Mass/Vol] 3.7 g/dL Normal 2.2-4.2 [facility] Comment on above: Order Comment: Order Date: 12/08/22 Order Info: 0786-1 - CMP ok nonfasting Performed By: #### L 100.0100, L500.4050 #### [facility] [address] [place], [address] Glucose [Mass/Vol] 100 mg/dL Normal 74-106 [facility] Comment on above: Order Comment: Order Date: 12/08/22 Order Info: 0786-1 - CMP ok nonfasting Result Comment: Fast ing Glucose result from 100 to 125 mg/dL suggests IMPAIRED HOMEOSTASIS per A.D.A. criteria. Performed By: #### L 100.0100, L500.4050 #### [facility] [address] [place], [address] Potassium [Moles/Vol] 4.3 mmol/L Normal 3.5-5.1 [facility] Comment on above: Order Comment: Order Date: 12/08/22 Order Info: 0786-1 - CMP ok nonfasting Performed By: #### L 100.0100, L500.4050 #### [facility] [address] [place], [address] Sodium [Moles/Vol] 141 mmol/L Normal 136-145 [facility] Comment on above: Order Comment: Order Date: 12/08/22 Order Info: 0786-1 - CMP ok nonfasting Performed By: #### L 100.0100, L500.4050 #### [facility] [address] [place], [address] T PROT 7.3 g/dL Normal 6.4-8.2 [facility] Comment on above: Order Comment: Order Date: 12/08/22 Order Info: 0786-1 - CMP ok nonfasting Performed By: #### L 100.0100, L500.4050 #### [facility] [address] [place], [address] Urea nitrogen [Mass/Vol] 13 mg/dL Normal 7-18 [facility] Comment on above: Order Comment: Order Date: 12/08/22 Order Info: 0786-1 - CMP ok nonfasting Performed By: #### L 100.0100, L500.4050 #### [facility] [address] [place], [address] Ext Non Vasc Limited/Soft Ti sson 11-16-2022 Ext Non Vasc Limited/Soft Tiss [facility] [address] [place] [address] Ext Non Vasc Limited/Soft Tiss MR#: [id number] Acct: [id number] Name: NORA CAMARILLO Rep #: [id number] : 1950 F 72 From: Alejo mendenhall MD PCP: Dr. Scot Blank MD Status: REG CLI Study: Ext Non Vasc Limited/Soft Tiss Date of Exam: 0 11/16/22 Exam# [id number] Ordering Dr: Gina Gibson DPSangita STUDY: SUPERFICIAL ULTRASOUND - PLANTAR ASPECT OF THE LEFT FOOT REASON FOR EXAM: Female, 72 years old. FOREIGN BODY BETWEEN METATARSALS TECHNIQUE: A superficial ultrasound was performed with real-time and static polk-scale imaging. COMPARISON: None. FINDINGS: Focal linear echogenic density is seen on the plantar aspect of the soft tissues between the first and second metatarsals. This has a length of 1.8 cm. US/Ext Non Vasc Limited/Soft Tiss IMPRESSION: Findings suggestive of a linear foreign body in the soft tissues between the first and second metatarsals. This measures 1.8 cm. Electronically Signed: Alejo Chaves MD at 14:43 EDT , CC: CONSTANTINO Gibson; Dr. Scot Blank MD Buttermaker: Signed Normal [facility] XR CHEST 2V FRONTAL/LATon [facility] XR Chest PA and Lateralon IMPRESSION: No acute radiographic abnormality. Buttermaker: [facility] Transcribe Date/Time: Oct 19 2022 12:45P Dictated by : DALLAS DOW MD This examination was interpreted and the report reviewed and electronically signed by: DALLAS DOW MD on Oct 19 2022 12:46PM [facility] DIVISION OF RADIOLOGY * * *Final Report* * * DATE OF EXAM: Oct 19 2022 12:21PM WOX 5291 - XR CHEST 2V FRONTAL/LAT / PROCEDURE REASON: Subacute cough * * * * Physician Interpretation * * * * EXAMINATION: CHEST RADIOGRAPH (2 VIEW FRONTAL & LATERAL) CLINICAL HISTORY: Subacute cough MQ: XC2_6 EXAM DATE/TIME: 10/19/2022 12:21 PM COMPARISON: Chest radiograph dated 07/08/2021 RESULT: Lines, tubes, and devices: None. Lungs and pleura: No focal lung consolidation. No significant pleural effusion or pneumothorax. Cardiomediastinal silhouette: Stable cardiomediastinal silhouette. Atherosclerotic calcifications of the aortic arch. Bones and soft tissues: Degenerative changes are present within the thoracic spine. DIVISION OF RADIOLOGY Provider, [facility] Cruz - 10/19/2022 * * *Final Report* * * DATE OF EXAM: Oct 19 2022 12:21PM WOX 5291 - XR CHEST 2V FRONTAL/LAT / PROCEDURE REASON: Subacute cough * * * * Physician Interpretation * * * * EXAMINATION: CHEST RADIOGRAPH (2 VIEW FRONTAL & LATERAL) CLINICAL HISTORY: Subacute cough MQ: XC2_6 EXAM DATE/TIME: 10/19/2022 12:21 PM COMPARISON: Chest radiograph dated 07/08/2021 RESULT: Lines, tubes, and devices: None. Lungs and pleura: No focal lung consolidation. No significant pleural effusion or pneumothorax. Cardiomediastinal silhouette: Stable cardiomediastinal silhouette. Atherosclerotic calcifications of the aortic arch. Bones and soft tissues: Degenerative changes are present within the thoracic spine. IMPRESSION IMPRESSION: No acute radiographic abnormality. Buttermaker: [facility] Transcribe Date/Time: Oct 19 2022 12:45P Dictated by : DALLAS DOW MD This examination was interpreted and the report reviewed and electronically signed by: DALLAS DOW MD on Oct 19 2022 12:46PM EST [facility] Radiology Study observation (narrative) [facility] XR Chest PA and LateralOrder ed By: [facility] Provider on 10-19-2022 [facility] XR FOOT GENERAL 3V AP/LAT/OB L LEFTon 09-18-2022 [facility] No Panel Informationon 07-14 [facility] No Panel Informationon 04-09 [facility] XR Chest PA and Lateralon IMPRESSION: Stable chest. No acute cardiopulmonary process. Buttermaker: [facility] Transcribe Date/Time: Jul 08 2021 12:46P Dictated by : AMALIA CAN MD This examination was interpreted and the report reviewed and electronically signed by: AMALIA CAN MD on Jul 08 2021 12:49PM [facility] DIVISION OF RADIOLOGY * * *Final Report* * * DATE OF EXAM: Jul 08 2021 12:44PM WOX 5291 - XR CHEST 2V FRONTAL/LAT / PROCEDURE REASON: Cough * * * * Physician Interpretation * * * * EXAMINATION: CHEST RADIOGRAPH (2 VIEW FRONTAL & LATERAL) CLINICAL HISTORY: Cough MQ: XC2_6 EXAM DATE/TIME: 07/08/2021 12:44 PM COMPARISON: Comparison is made to prior chest dated 25 January 2020 and 08/17/2016 RESULT: Lines, tubes, and devices: None. Lungs and pleura: Chronic interstitial lung changes with lingular and bibasilar fibrotic scarring is stable. There is no focal consolidation or acute pleural process/fluid. There is no vascular redistribution to suggest pulmonary edema. Cardiomediastinal silhouette: The cardiac, mediastinal and hilar shadows are unchanged and remain within normal limits. Other: The bony structures are intact DIVISION OF RADIOLOGY Provider, Raffi Terry [facility] - 07/08/2021 * * *Final Report* * * DATE OF EXAM: Jul 08 2021 12:44PM WOX 5291 - XR CHEST 2V FRONTAL/LAT / PROCEDURE REASON: Cough * * * * Physician Interpretation * * * * EXAMINATION: CHEST RADIOGRAPH (2 VIEW FRONTAL & LATERAL) CLINICAL HISTORY: Cough MQ: XC2_6 EXAM DATE/TIME: 07/08/2021 12:44 PM COMPARISON: Comparison is made to prior chest dated 25 January 2020 and 08/17/2016 RESULT: Lines, tubes, and devices: None. Lungs and pleura: Chronic interstitial lung changes with lingular and bibasilar fibrotic scarring is stable. There is no focal consolidation or acute pleural process/fluid. There is no vascular redistribution to suggest pulmonary edema. Cardiomediastinal silhouette: The cardiac, mediastinal and hilar shadows are unchanged and remain within normal limits. Other: The bony structures are intact IMPRESSION IMPRESSION: Stable chest. No acute cardiopulmonary process. Buttermaker: [facility] Transcribe Date/Time: Jul 08 2021 12:46P Dictated by : AMALIA CAN MD This examination was interpreted and the report reviewed and electronically signed by: AMALIA CAN MD on Jul 08 2021 12:49PM EST [facility] Radiology Study observation (narrative) [facility] XR Chest PA and LateralOrder ed By: [facility] Provider on 07-08-2021 [facility] XR Ankle - left AP and Later al and obliqueon 04-11-2021 * * *Final Report* * * DATE OF EXAM: Apr 11 2021 1:15PM WOX 5298 - XR ANKLE 3V AP/LAT/OBL LT / PROCEDURE REASON: multiple diagnoses * * * * Physician Interpretation * * * * Indication: Left ankle pain Comparison: None 3 views of the left ankle are obtained. There is normal architecture and mineralization of the bones. There is no acute fracture or dislocation. Joint spaces are maintained. Plantar calcaneal spur. Impression: 1. No acute fracture or dislocation. Buttermaker: NANCY Transcribe Date/Time: Apr 11 2021 1:19P Dictated by : SUSANNE NICHOLE MD This examination was interpreted and the report reviewed and electronically signed by: SUSANNE NICHOLE MD on Apr 11 2021 1:20PM [facility] DIVISION OF RADIOLOGY Provider, [facility] - 04/11/2021 * * *Final Report* * * DATE OF EXAM: Apr 11 2021 1:15PM WOX 5298 - XR ANKLE 3V AP/LAT/OBL LT / PROCEDURE REASON: multiple diagnoses * * * * Physician Interpretation * * * * Indication: Left ankle pain Comparison: None 3 views of the left ankle are obtained. There is normal architecture and mineralization of the bones. There is no acute fracture or dislocation. Joint spaces are maintained. Plantar calcaneal spur. Impression: 1. No acute fracture or dislocation. Buttermaker: NANCY Transcribe Date/Time: Apr 11 2021 1:19P Dictated by : SUSANNE NICHOLE MD This examination was interpreted and the report reviewed and electronically signed by: SUSANNE NICHOLE MD on Apr 11 2021 1:20PM [facility] Radiology Study observation (narrative) [facility] XR Ankle - left AP and Later al and obliqueOrdered By: [facility] Provider on 04-11-2021 [facility] US DVT LOWER LTon 12-05-2019 US DVT LOWER LT * * *Final Report* * * DATE OF EXAM: Dec 05 2019 6:53PM LDU 1006 - US DVT LOWER LT / PROCEDURE REASON: Leg swelling * * * * Physician Interpretation * * * * EXAMINATION: LEFT LOWER EXTREMITY DEEP VENOUS ULTRASOUND WITH DOPPLER IMAGING CLINICAL HISTORY: Leg pain or tenderness. TECHNIQUE: Grayscale with compression maneuvers, color Doppler and spectral Doppler at rest and with augmentation of the left distal external iliac, common femoral, femoral and popliteal veins was performed. Grayscale with compression maneuvers of the peroneal and posterior tibial veins was performed. The left great and small saphenous veins were also imaged in grayscale with compression maneuvers at their insertion to the deep system. The contralateral common femoral vein was imaged for comparison. Images were obtained and stored in a permanent archive. MQ: USLEL_1 COMPARISON: None RESULT: LEFT LOWER EXTREMITY PROXIMAL DEEP VEINS Distal External Iliac and Common Femoral Veins: Compression: Normal Doppler: Normal, spontaneous respirophasic flow. Normal response to augmentation. Femoral vein: Compression: Normal Doppler: Normal, spontaneous flow. Normal response to augmentation. Popliteal vein: Compression: Normal Doppler: Normal, spontaneous flow. Normal response to augmentation. CALF DEEP VEINS Peroneal veins: Normal compression. Posterior tibial veins: Normal compression. Gastrocnemius and Soleal veins: Not imaged. SUPERFICIAL VEINS Great saphenous: Patent and compressible at insertion into common femoral vein; not otherwise assessed. Small Saphenous: Patent and compressible in the proximal calf, not otherwise assessed. RIGHT LOWER EXTREMITY (FOR COMPARISON) Common Femoral Vein: Compression: Normal Doppler: Normal, spontaneous respirophasic flow. Normal response to augmentation. IMPRESSION: Negative study for acute proximal DVT in the left lower extremity. Negative study for acute calf DVT in the left lower extremity. Negative study for acute superficial thrombophlebitis in the imaged segments of the left lower extremity. Buttermaker: [facility] Transcribe Date/Time: Dec 05 2019 6:56P Dictated by : SHILA AMIN MD This examination was interpreted and the report reviewed and electronically signed by: SHILA AMIN MD on Dec 05 2019 6:57PM [facility] 07-22-2017 [facility] Telephone ([facility] [facility]) --------NORA CAMARILLO ([id number]) 1950 FDate Time Provider Department07/22/17 AIMEE PALMER (KHUSHI) VEDA During your visit today, we recorded the following information about you:Aimee Palmer RD, LD 07/22/2017 11:49 AM AddendumRD NOTE:July 22, 2017 11:19 AMS/O:Calling patient for 6-month follow up and weight managementThere were no vitals taken for this visit.Last 2 Encounter Wt Readings: Date: Wt: 07/20/2017 80.3 kg (177 lb) 05/21/2017 80.7 kg (178 lb)Assessment/Plan:Patient has lost around 20 pounds since surgery and she feels like she hasplateaud. She exercises almost daily by walking around her local [employer].Diet recall: Wake up: 07/13 coffee with creamer Breakfast (2 hours after coffee): 2 hard boiled eggs yolks, 2 pieces of boucher,occasionally toast with butter sometimes. Lunch: Apple Supper: Roast beef, carrots, brussels sprouts, mash potatoes OR potato andvegetables OR roast beef sandwich with 2 TBSP Miracle whip.Discussed importance of protein and suggested adding a yogurt or cottage cheesewith lunch. Suggested having protein at every meal. Discussed decreasing hersaturated fat consumption for healthier alternatives. Patient requested writtendiet suggestions via email ([email or web address]).Mona Swartz, MURRAY, Lida As of Date: 07/22/2017 Noted Allergy ReactionMORPHINE 03/03/2017 8 - GI Upset Comments: nauseaADVAIR DISKUS (FLUTICASONE-SALMET*2010 5 - Intolerance Comments: Hurts throatBENTYL (DICYCLOMINE HCL) 10/03/2009CELEBREX (CELECOXIB) 02/08/2006 8 - GI UpsetDICYCLOMINE 09/10/2011 14 - Other: See Comments Comments: Dry mouth, blurred vision, loss of tasteESTRACE (ESTRADIOL) 03/17/2005 9 - ItchingEVISTA (RALOXIFENE HCL) 03/17/2005 9 - ItchingMEDROL (METHYLPREDNISOLONE) 09/27/2014 14 - Other: See Comments Comments: Dry mouth, sore throat.OXYCONTIN (OXYCODONE HCL) 07/19/2015 9 - ItchingPENICILLINS 03/17/2005 9 - ItchingPREDNISONE 03/17/2005 2 - Rash Comments: Uncertain.PROZAC (FLUOXETINE HCL) 03/17/2005SYMAX-SL (HYOSCYAMINE SULFATE) 10/03/2009Date Reviewed: 05/11/2017Reviewed by: Suzi Dobson - Fully AssessedReason for Visit: Nutrition Telephone [2013] Cmt: GERD 6-month follow up/weight managementPrescriptions as of 07/22/2017 Sig: AMOXICILLIN 500 MG CAPSULE Take 1 capsule by mouth once * NITROFURANTOIN MONOHYDRATE AND * Take 1 capsule by mouth once * CONJUGATED ESTROGENS 0.625 MG* pea-sized amount to lower vag* MIRALAX ORAL Take 1 Packet by mouth as nee* ALBUTEROL SULFATE HFA 90 MCG/* Inhale 2 Puffs as instructed * BUDESONIDE 0.25 MG/2 ML SUSPE* Use 2 mL via nebulizer twice * COMPOUNDED PRESCRIPTION Please provide patient with n* More...Problem List As Of Date 07/22/2017 Noted Resolved Unspecified constipation [K59.00] 12/22/2011 Diverticulosis of large intestine [K57.30] Priority: C Senile Osteoporosis [M81.0] INVALID FOR* Priority: A More... Diaphragmatic hernia without mention of obstruc*INVALID FOR* Priority: B Routine general medical examination at a [facility]*INVALID FOR*12/22/2011 Class: Chronic More... Routine gynecological examination [Z01.419] INVALID FOR*12/22/2011 Class: Chronic More... Diarrhea [R19.7] INVALID FOR*12/22/2011 More... Mixed hyperlipidemia [E78.2] INVALID FOR* Priority: A Delayed gastric emptying [K30] INVALID FOR* Priority: B More... Non morbid obesity [E66.9] INVALID FOR* Priority: B Encounter for gynecological examination without*INVALID FOR* Priority: D More... 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 Mild persistent asthma without complication [J4*INVALID FOR* Priority: A More... Hiatal hernia [K44.9] INVALID FOR* Priority: B Primary insomnia [F51.01] INVALID FOR* Priority: B Chronic pain of left knee [M25.562, G89.29] INVALID FOR* Priority: M Medicare annual wellness visit, subsequent [Z00*INVALID FOR* More... Well adult exam [Z00.00] INVALID FOR* More... Status:Closed by AIMEE CAR on 07/22/17 [facility] CNPNon 05-21-2017 [facility] NOAR CAMARILLO ([id number]) 1950 FDa Time Provider Iwtwkdxlkn69/10/17 NATALI RJOAS [facility] During your visit today, we recorded the following information about you: Weight 80.7 kgCatowen Jordan 05/21/2017 12:50 PM LiangI called Nora for a 3 month follow up after her Walter. She is doing well,except her asthma is acting up right now. Her QOL score is 0. Nora's onlycomplaint is a constant chest pressure ANDquot;it just feels like something isthereANDquot; which never changes and is not influenced with eating or drinking.I told her I would share this information with Dr. Rojas. I asked if Icould call her again in a few months and Nora agreed and wished everyone ahappy Thanksgiving.Regina Rojas MD 05/21/2017 12:58 PM Dorisnayan should check with her PCP to make sure there are no other issues. Itdoesn't sound GERD relatedAllergies As of Date: 05/21/2017 Noted Allergy ReactionMORPHINE 03/03/2017 8 - GI Upset Comments: nauseaADVAIR DISKUS (FLUTICASONE-SALMET*2010 5 - Intolerance Comments: Hurts throatBENTYL (DICYCLOMINE HCL) 10/03/2009CELEBREX (CELECOXIB) 02/08/2006 8 - GI UpsetDICYCLOMINE 09/10/2011 14 - Other: See Comments Comments: Dry mouth, blurred vision, loss of tasteESTRACE (ESTRADIOL) 03/17/2005 9 - ItchingEVISTA (RALOXIFENE HCL) 03/17/2005 9 - ItchingMEDROL (METHYLPREDNISOLONE) 09/27/2014 14 - Other: See Comments Comments: Dry mouth, sore throat.OXYCONTIN (OXYCODONE HCL) 07/19/2015 9 - ItchingPENICILLINS 03/17/2005 9 - ItchingPREDNISONE 03/17/2005 2 - Rash Comments: Uncertain.PROZAC (FLUOXETINE HCL) 03/17/2005SYMAX-SL (HYOSCYAMINE SULFATE) 10/03/2009Date Reviewed: 05/11/2017Reviewed by: Suzi Dobson - Fully AssessedReason for Visit: Follow Up [171]Prescriptions as of 05/21/2017 Sig: NITROFURANTOIN MONOHYDRATE AND * Take 1 capsule by mouth once * CONJUGATED ESTROGENS 0.625 MG* pea-sized amount to lower vag* MIRALAX ORAL Take 1 Packet by mouth as nee* ALBUTEROL SULFATE HFA 90 MCG/* Inhale 2 Puffs as instructed * BUDESONIDE 0.25 MG/2 ML SUSPE* Use 2 mL via nebulizer twice * COMPOUNDED PRESCRIPTION Please provide patient with n* More...Problem List As Of Date 05/21/2017 Noted Resolved Unspecified constipation [K59.00] 12/22/2011 Diverticulosis of large intestine [K57.30] Priority: C Senile Osteoporosis [M81.0] INVALID FOR* Priority: A More... Diaphragmatic hernia without mention of obstruc*INVALID FOR* Priority: B Routine general [facility] examination at [facility]*INVALID FOR*12/22/2011 Class: Chronic More... Routine gynecological examination [Z01.419] INVALID FOR*12/22/2011 Class: Chronic More... Diarrhea [R19.7] INVALID FOR*12/22/2011 More... Mixed hyperlipidemia [E78.2] INVALID FOR* Priority: A Delayed gastric emptying [K30] INVALID FOR* Priority: B More... Non morbid obesity [E66.9] INVALID FOR* Priority: B Encounter for gynecological examination without*INVALID FOR* Priority: D More... 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 Mild persistent asthma without complication [J4*INVALID FOR* Priority: A More... Hiatal hernia [K44.9] INVALID FOR* Priority: B Primary insomnia [F51.01] INVALID FOR* Priority: B Chronic pain of left knee [M25.562, G89.29] INVALID FOR* Priority: M Medicare annual wellness visit, subsequent [Z00*INVALID FOR* More... Well adult exam [Z00.00] INVALID FOR* More... ---------Questionnaire: AG GERD HEALTH RELATED QUALITY OF LIFESurgery/Baclofen dose -> WALTER: DATE Cmt: 02/11/17 -> Off PPI'S: How long1. How bad is the heartburn? -> 0 No Symptoms2. Heartburn when lying down? -> 0 No Symptoms3. Heartburn when standing up? -> 0 No Symptoms4. Heartburn after meals? -> 0 No Symptoms5. Does heartburn change your diet? -> 0 No Symptoms6. Does heartburn wake you from sleep? -> 0 No Symptoms7. Do you have difficulty swallowing -> 0 No Symptoms8. Do you have pain with swallowing? -> 0 No Symptoms9. If you take medication, does this affect your daily life? -> 0 No Xvnaqude31. How bad is the regurgitation? -> 0 No Nmrzyked50. Regurgitation when lying down? -> 0 No Vdlmudga71. Regurgitation when standing up? -> 0 No Pqfybqtc67. Regurgitation after meals? -> 0 No Tjztctkm50. Does regurgitation change your diet? -> 0 No Tvdtnmvu34. Does regurgitation wake you from sleep? -> 0 No SymptomsTOTAL - HEARTBURN 1-9 -> 0TOTAL - REGURG 10-15 -> 0Total -> 016. How satisfied are you with your present condition -> SatisfiedEncounter Number: [id number] Status:Closed by REGINA JORDAN on 05/21/17 [facility] Tamiko 03-03-2017 [facility] NOR[facility] CAM[facility]ILL[facility] ([id number]) 1950 [facility] Department03/03/17 3:30 PM NATALI ROJAS [facility] During your visit today, we recorded the following information about you: Pulse Respiration Blood pressure Weight 68/minute 24/minute 138/80 84.4 kgRegina Jordan 03/03/2017 3:38 PM SignedCalled patient after lap Walter procedure on 02/11/17Swallowing: Denies difficulty. Gagging with protein supplements. Hastolerated mashed potatoes, oatmeal and scrambled eggs.Voiding/color of urine: Reports urine is light in colorPassing flatus: yesMoving bowels: twice a day, diarrhea w/eggsPain rating/use of medications: Rating pain as an ANDquot;8ANDquot;, has beentaking liquid pain medication from her discharge. Taking plain Tylenol once ortwice a day but denies any relief. Pain is in RUQ, aggravated with positionchange.Proton pump inhibitor: yesInspection of incisions: Right middle incision with slight pink color, otherincisions healed with scabs.Using incentive spirometer: Using rarely, taking her breathing treatments.Physical activity: Walking in stores every other dayFollow up appt confirmation: 4 weeks[facility]30 PMNatali Rojas MD 03/03/2017 4:15 PM SignedMrsMeghan Camarillo presents today for follow-up from recent laparoscopic hiatal herniarepair and Walter fundoplication and gastric diverticulectomy. She is doingwell. She reports some abdominal pain but otherwise is doing fine. She istolerating a diet. She had a bowel movement. She has lost 10 pounds.She denies any significant reflux symptoms.Operative findings and pictures were reviewed with her and her indetail.ExamAbdomen: Soft. Nondistended. Incisions are healing well. There is tendernessto palpation especially off on the right.Pathology for a gastric diverticulum a straightforward gastric diverticulartissue.Assessm ent: Status post laparoscopic Hernia repair, after diverticulectomy andNissen fundoplication.Plan: Doing well. Activity instructions reviewed. She is to discontinue herProtonix she'll follow up again in 1 month for reevaluation. Our dietitianspoke with her today. She is to call sooner for any problems.Fadumo Villavicencio RD 03/03/2017 4:15 PM SignedAugusshahid 2016 3:49 PMRD NOTE:S/O: 4 week follow upWt 84.4 kg (186 lb) BMI 31.93 kg/m2Last 2 Encounter Wt Readings: Date: Wt: 03/03/2017 84.4 kg (186 lb) 01/21/2017 88.9 kg (196 lb)Patient presents with:Surgical FollowupAssessment/Plan: Met with patient and . Patient having trouble gettingprotein in, taking a little fish, yogurt and lactaid milk, not toleratingprotein shake or eggs well. So, enc: soupy pastas, soft vegetables, enc: ifnot having protein every meal to start very very soft moist ground beef to getprotein and chew everything well.Fadumo Villavicencio RDAllergies As of Date: 03/03/2017 Noted Allergy ReactionMORPHINE 03/03/2017 8 - GI Upset Comments: nauseADVAIR DISKUS (FLUTICASONE-SALMET*2010 5 - Intolerance Comments: Hurts throatBENTYL (DICYCLOMINE HCL) 10/03/2009CELEBREX (CELECOXIB) 02/08/2006 8 - GI UpsetDICYCLOMINE 09/10/2011 14 - Other: See Comments Comments: Dry mouth, blurred vision, loss of tasteESTRACE (ESTRADIOL) 03/17/2005 9 - ItchingEVISTA (RALOXIFENE HCL) 03/17/2005 9 - ItchingMEDROL (METHYLPREDNISOLONE) 09/27/2014 14 - Other: See Comments Comments: Dry mouth, sore throat.OXYCONTIN (OXYCODONE HCL) 07/19/2015 9 - ItchingPENICILLINS 03/17/2005 9 - ItchingPREDNISONE 03/17/2005 2 - Rash Comments: Uncertain.PROZAC (FLUOXETINE HCL) 03/17/2005SYMAX-SL (HYOSCYAMINE SULFATE) 10/03/2009Date Reviewed: 03/03/2017Reviewed by: Natali Rojas - Fully AssessedReason for Visit: Surgical Followup [104]Primary Visit Diagnosis:Gastroesophageal reflux disease without esophagitis [K21.9] Other Visit Diagnoses:Hiatal hernia [K44.9] Gastric diverticulum [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]Order(s):[] HYDROcodone-Acetaminophen (HYCET) 7.5-325 mg/15 mL oral liquidTake 15 mL by mouth four times daily as needed for up to 14 days.Disp: 850 mLRfl: 0Prescriptions as of 03/03/2017 Sig:X OMEPRAZOLE 40 MG CAPSULE,ISSA* Take 1 capsule by mouth twice* ALBUTEROL SULFATE HFA 90 MCG/* Inhale 2 Puffs as instructed * BUDESONIDE 0.25 MG/2 ML SUSPE* Use 2 mL via nebulizer twice * COMPOUNDED PRESCRIPTION Please provide patient with n* HYDROCODONE 7.5 MG-ACETAMINOP* Take 15 mL by mouth four time* BACLOFEN 10 MG TABLET Take 1 tablet by mouth daily *Medication notes this encounter BACLOFEN 10 MG TABLET >> Regina Jordan 03/03/2017 3:28 PM >> REGINA JORDAN WedMar 03, 2017 3:28 PM Not currently taking More...Problem List As Of Date 03/03/2017 Noted Resolved Unspecified constipation [K59.00] 12/22/2011 Diverticulosis of large intestine [K57.30] Priority: C Senile Osteoporosis [M81.0] INVALID FOR* Priority: A More... Diaphragmatic hernia without mention of obstruc*INVALID FOR* Priority: B [facility]ine [facility]*INVALID FOR*12/22/2011 Class: Chronic More... Routine gynecological examination [Z01.419] INVALID FOR*12/22/2011 Class: Chronic More... Diarrhea [R19.7] INVALID FOR*12/22/2011 More... Mixed hyperlipidemia [E78.2] INVALID FOR* Priority: A Delayed gastric emptying [K30] INVALID FOR* Priority: B More... Non morbid obesity [E66.9] INVALID FOR* Priority: B Encounter for gynecological examination without*INVALID FOR* Priority: D More... 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 Mild persistent asthma without complication [J4*INVALID FOR* Priority: A More... Hiatal hernia [K44.9] INVALID FOR* Priority: B Primary insomnia [F51.01] INVALID FOR* Priority: B Chronic pain of left knee [M25.562, G89.29] INVALID FOR* Priority: M Medicare annual wellness visit, subsequent [Z00*INVALID FOR* More... Well adult exam [Z00.00] INVALID FOR* More...Visit Notes:>> Regina Jordan WedMar 03, 2017 3:29 PM Status: SignedCalled patient after lap Walter procedure on 02/11/17Swallowing: Denies difficulty. Gagging with protein supplements. Hastolerated mashed potatoes, oatmeal and scrambled eggs.Voiding/color of urine: Reports urine is light in colorPassing flatus: yesMoving bowels: twice a day, diarrhea w/eggsPain rating/use of medications: Rating pain as an 8, has been takingliquid pain medication from her discharge. Taking plain Tylenol once ortwice a day but denies any relief. Pain is in RUQ, aggravated withposition change.Proton pump inhibitor: yesInspection of incisions: Right middle incision with slight pink color,other incisions healed with scabs.Using incentive spirometer: Using rarely, taking her breathingtreatments.Physic al activity: Walking in stores every other dayFollow up appt confirmation: 4 weeks--patient wants to be seen in Bill Vazquez 2016 3:30 PMPrescriptions ordered this encounter Disp Refills Start End HYDROCODONE 7.5 MG-ACETAMINOPHEN 325* 850 * 0 03/03/2017 03/17/2017 Class: Print RX Route: ORAL Sig: Take 15 mL by mouth four times daily as needed for up to 14 days.Level of Service: POST-OP VISIT (NO CHARGE) NON-OB [75460]Disposition: Return in about 4 weeks (around 03/31/2017).Follow-up and Disposition History Recorded Questionnaire: AG GERD HEALTH RELATED QUALITY OF LIFESurgery/Baclofen dose -> WALTER: DATE Cmt: 02/11/17 -> On PPI'S1. How bad is the heartburn? -> 1 Noticeable/not bothersome2. Heartburn when lying down? -> 0 No Symptoms3. Heartburn when standing up? -> 0 No Symptoms4. Heartburn after meals? -> 0 No Symptoms5. Does heartburn change your diet? -> 3 Bothersome daily6. Does heartburn wake you from sleep? -> 0 No Symptoms7. Do you have difficulty swallowing -> 0 No Symptoms8. Do you have pain with swallowing? -> 0 No Symptoms9. If you take medication, does this affect your daily life? -> 0 No Wjmslwmi65. How bad is the regurgitation? -> 0 No Wcypbidx05. Regurgitation when lying down? -> 0 No Cwoetahp67. Regurgitation when standing up? -> 0 No Acpeezdu47. Regurgitation after meals? -> 0 No Qlgmlrkf92. Does regurgitation change your diet? -> 0 No Eymiumco56. Does regurgitation wake you from sleep? -> 0 No SymptomsTOTAL - HEARTBURN 1-9 -> 4TOTAL - REGURG 10-15 -> 0Total -> 416. How satisfied are you with your present condition -> NeutralLetter TextEncounter Number: [id number] Status:Closed by NATALI ROJAS MD on 03/03/17 [facility] PROGRESSon 03-03-2017 PROGRESS HNO ID: [id number] thor: Fadumo Castillo: (none)Author Type: Registered DietitianType: Progress NotesFiled: 03/03/2017 4:15 PMNote Text:March 03, 2017 3:49 PMRD NOTE:S/O: 4 week follow upWt 84.4 kg (186 lb) BMI 31.93 kg/m2Last 2 Encounter Wt Readings: Date: Wt: 03/03/2017 84.4 kg (186 lb) 01/21/2017 88.9 kg (196 lb)Patient presents with:Surgical FollowupAssessment/Plan: Met with patient and . Patient having troublegetting protein in, taking a little fish, yogurt and lactaid milk, nottolerating protein shake or eggs well. So, enc: soupy pastas, softvegetables, enc: if not having protein every meal to start very very softmoist ground beef to get protein and chew everything well.Fadumo Villavicencio RD [facility] PROGRESS HNO ID: [id number] thor: Natali Arciniega: (none)Author Type: PhysicianType: Progress NotesFiled: 03/03/2017 4:15 PMNote Text:Mrs. Camarillo presents today for follow-up from recent laparoscopic hiatalhernia repair and Walter fundoplication and gastric diverticulectomy. Sheis doing well. She reports some abdominal pain but otherwise is doingfine. She is tolerating a diet. She had a bowel movement. She has lost10 pounds.She denies any significant reflux symptoms.Operative findings and pictures were reviewed with her and her indetail.ExamAbdomen: Soft. Nondistended. Incisions are healing well. There istenderness to palpation especially off on the right.Pathology for a gastric diverticulum a straightforward gastricdiverticular tissue.Assessment: Status post laparoscopic Hernia repair, after diverticulectomyand Walter fundoplication.Plan: Doing well. Activity instructions reviewed. She is to discontinueher Protonix she'll follow up again in 1 month for reevaluation. Ourdietitian spoke with her today. She is to call sooner for any problems. Normal [facility] Vital Signs Date Time Vital Sign Value Performing Clinician Facility 02-12-2025 15:47-0400 Body temperature 97.8 [degF] Dr. Scot Blank MD Work Phone: [phone] [place] [address] 02-12-2025 15:47-0400 Diastolic blood pressure 87 mm[Hg] Dr. Scot Blank MD Work Phone: [phone] [place] [address] 02-12-2025 15:47-0400 Heart rate 87 /min Dr. Scot Blank MD Work Phone: [facility] 02-12-2025 15:47-0400 Respiratory rate 19 /min Dr. Scot Blank MD Work Phone: [facility] 02-12-2025 15:47-0400 SaO2% (BldA) [Mass fraction] 100 % Dr. Scot Blank MD Work Phone: [facility] 02-12-2025 15:47-0400 Systolic blood pressure 138 mm[Hg] Dr. Scot Blank MD Work Phone: [facility] 02-12-2025 14:43-0400 Body height 162.[address] Scot Blank MD Work Phone: 2(113)[phone] [place] [address] 02-12-2025 14:43-0400 Body mass index (BMI) [Ratio] 30.9 kg/m2 Dr. Scot Blank MD Work Phone: [facility] 02-12-2025 14:43-0400 Body weight 81.[address] Scot Blank MD Work Phone: [facility] 01-22-2025 11:57-0400 Body mass index (BMI) [Ratio] 31.56 kg/m2 Jaylin Combs PA-C Work Phone: [facility] 01-22-2025 11:57-0400 Body temperature 98.29 [degF] Jaylin Combs PA-C Work Phone: [facility] 01-22-2025 11:57-0400 Body weight 82.1 kg Jaylin Combs PA-C Work Phone: [facility] 01-22-2025 11:57-0400 Diastolic blood pressure 70 mm[Hg] Jaylin Combs PA-C Work Phone: [facility] 01-22-2025 11:57-0400 Heart rate 69 /min Jaylin Combs PA-C Work Phone: [facility] 01-22-2025 11:57-0400 Respiratory rate 18 /min Jaylin Combs PA-C Work Phone: [facility] 01-22-2025 11:57-0400 SaO2% (BldA) [Mass fraction] 97 % Jaylin Combs PA-C Work Phone: [facility] 01-22-2025 11:57-0400 Systolic blood pressure 110 mm[Hg] Jaylin Combs PA-C Work Phone: [facility] 10-24-2024 13:58-0400 Body mass index (BMI) [Ratio] 31.39 kg/m2 Jaylin Combs PA-C Work Phone: [facility] 10-24-2024 13:58-0400 Body temperature 97.5 [degF] Jaylin Combs PA-C Work Phone: [facility] 10-24-2024 13:58-0400 Body weight 81.65 kg Jaylin Combs PA-C Work Phone: [facility] 10-24-2024 13:58-0400 Diastolic blood pressure 78 mm[Hg] Jaylin Combs PA-C Work Phone: [facility] 10-24-2024 13:58-0400 Heart rate 71 /min Jaylin Combs PA-C Work Phone: [facility] 10-24-2024 13:58-0400 Respiratory rate 16 /min Jaylin Combs PA-C Work Phone: [facility] 10-24-2024 13:58-0400 SaO2% (BldA) [Mass fraction] 96 % Jaylin Combs PA-C Work Phone: [facility] 10-24-2024 13:58-0400 Systolic blood pressure 128 mm[Hg] Jaylin Combs PA-C Work Phone: [facility] 08-11-2024 15:19-0500 Body temperature 97.7 [degF] Jazzy Romero-Popeye PT Work Phone: [facility] 08-11-2024 15:19-0500 Diastolic blood pressure 66 mm[Hg] Jazzy Romero-Popeye PT Work Phone: [facility] 08-11-2024 15:19-0500 Heart rate 67 /min Jazzy Romero-Popeye PT Work Phone: [facility] 08-11-2024 15:19-0500 Respiratory rate 16 /min Jazzy Romero-Nye PT Work Phone: [facility] 08-11-2024 15:19-0500 SaO2% (BldA) [Mass fraction] 97 % Jazzy Romero-Popeye PT Work Phone: [facility] 08-11-2024 15:19-0500 Systolic blood pressure 135 mm[Hg] Jazzy Anguloderman-Popeye PT Work Phone: [facility] 08-10-2024 13:25-0500 Body temperature 97.81 [degF] Sallie Giuliano [employer] Work Phone: [facility] 08-10-2024 13:25-0500 Diastolic blood pressure 86 mm[Hg] Sallie Giuliano [employer] Work Phone: [facility] 08-10-2024 13:25-0500 Heart rate 80 /min Sallie Giuliano [employer] Work Phone: [facility] 08-10-2024 13:25-0500 Respiratory rate 18 /min Sallie Giuliano [employer] Work Phone: [facility] 08-10-2024 13:25-0500 SaO2% (BldA) [Mass fraction] 99 % Sallie Giuliano ENVELOPE PATTERNMAKER Work Phone: [facility] 08-10-2024 13:25-0500 Systolic blood pressure 126 mm[Hg] Sallie Giuliano ENVELOPE PATTERNMAKER Work Phone: [facility] 08-08-2024 11:53-0500 Body temperature 97.59 [degF] Sallie Giuliano ENVELOPE PATTERNMAKER Work Phone: [facility] 08-08-2024 11:53-0500 Diastolic blood pressure 60 mm[Hg] Sallie Giuliano ENVELOPE PATTERNMAKER Work Phone: [facility] 08-08-2024 11:53-0500 Heart rate 78 /min Sallie Giuliano ENVELOPE PATTERNMAKER Work Phone: [facility] 08-08-2024 11:53-0500 Respiratory rate 18 /min Sallie Giuliano ENVELOPE PATTERNMAKER Work Phone: [facility] 08-08-2024 11:53-0500 SaO2% (BldA) [Mass fraction] 96 % Sallie Giuliano ENVELOPE PATTERNMAKER Work Phone: [facility] 08-08-2024 11:53-0500 Systolic blood pressure 124 mm[Hg] Sallie Giuliano ENVELOPE PATTERNMAKER Work Phone: [facility] 08-04-2024 11:15-0500 Heart rate 77 /min Sallie Giuliano ENVELOPE PATTERNMAKER Work Phone: [facility] 08-04-2024 11:15-0500 SaO2% (BldA) [Mass fraction] 97 % Sallie Giuliano ENVELOPE PATTERNMAKER Work Phone: [facility] 08-04-2024 10:35-0500 Body temperature 97.9 [degF] Sallie Giuliano ENVELOPE PATTERNMAKER Work Phone: [facility] 08-04-2024 10:35-0500 Diastolic blood pressure 66 mm[Hg] Sallie Giuliano ENVELOPE PATTERNMAKER Work Phone: [facility] 08-04-2024 10:35-0500 Respiratory rate 18 /min Sallie Giuliano ENVELOPE PATTERNMAKER Work Phone: [facility] 08-04-2024 10:35-0500 Systolic blood pressure 118 mm[Hg] Sallie Giuliano ENVELOPE PATTERNMAKER Work Phone: [facility] 08-02-2024 10:13-0500 Body temperature 97.11 [degF] Sallie Giuliano ENVELOPE PATTERNMAKER Work Phone: [facility] 08-02-2024 10:13-0500 Diastolic blood pressure 68 mm[Hg] Sallie Giuliano ENVELOPE PATTERNMAKER Work Phone: [facility] 08-02-2024 10:13-0500 Heart rate 80 /min Sallie Giuliano ENVELOPE PATTERNMAKER Work Phone: [facility] 08-02-2024 10:13-0500 Respiratory rate 18 /min Sallie Giuliano ENVELOPE PATTERNMAKER Work Phone: [facility] 08-02-2024 10:13-0500 SaO2% (BldA) [Mass fraction] 98 % Sallie Giuliano ENVELOPE PATTERNMAKER Work Phone: [facility] 08-02-2024 10:13-0500 Systolic blood pressure 130 mm[Hg] Sallie Giuliano ENVELOPE PATTERNMAKER Work Phone: [facility] 07-31-2024 13:23-0500 Body temperature 97.81 [degF] Sallie Giuliano ENVELOPE PATTERNMAKER Work Phone: [facility] 07-31-2024 13:23-0500 Diastolic blood pressure 66 mm[Hg] Sallie Giuliano ENVELOPE PATTERNMAKER Work Phone: [facility] 07-31-2024 13:23-0500 Heart rate 74 /min Sallie Giuliano ENVELOPE PATTERNMAKER Work Phone: [facility] 07-31-2024 13:23-0500 Respiratory rate 18 /min Sallie Giuliano ENVELOPE PATTERNMAKER Work Phone: [facility] 07-31-2024 13:23-0500 SaO2% (BldA) [Mass fraction] 97 % Sallie Giuliano ENVELOPE PATTERNMAKER Work Phone: [facility] 07-31-2024 13:23-0500 Systolic blood pressure 130 mm[Hg] Sallie Giuliano ENVELOPE PATTERNMAKER Work Phone: [facility] 07-28-2024 14:35-0500 Body temperature 97.81 [degF] Jazzy Pereira PT Work Phone: [facility] 07-28-2024 14:35-0500 Diastolic blood pressure 68 mm[Hg] Jazzy Romero-Popeye PT Work Phone: [facility] 07-28-2024 14:35-0500 Heart rate 81 /min Jazzy Pereira PT Work Phone: [facility] 07-28-2024 14:35-0500 Respiratory rate 16 /min Jazzy Pereira PT Work Phone: [facility] 07-28-2024 14:35-0500 SaO2% (BldA) [Mass fraction] 98 % Jazzy Romero-Nye PT Work Phone: [facility] 07-28-2024 14:35-0500 Systolic blood pressure 140 mm[Hg] Jazzy Sahaman-Nye PT Work Phone: [facility] 06-30-2024 09:08-0500 Body height 161.3 cm [facility] 1 Work Phone: [facility] 06-30-2024 09:08-0500 Body mass index (BMI) [Ratio] 32.54 kg/m2 Pacc 1 Work Phone: [facility] 06-30-2024 09:08-0500 Body temperature 97.81 [degF] Pacc 1 Work Phone: [facility] 06-30-2024 09:08-0500 Body weight 84.64 kg Pacc 1 Work Phone: [facility] 06-30-2024 09:08-0500 Diastolic blood pressure 88 mm[Hg] Pacc 1 Work Phone: [facility] 06-30-2024 09:08-0500 Heart rate 67 /min Pacc 1 Work Phone: [facility] 06-30-2024 09:08-0500 Respiratory rate 21 /min Pacc 1 Work Phone: [facility] 06-30-2024 09:08-0500 SaO2% (BldA) [Mass fraction] 96 % Pac 1 Work Phone: [facility] 06-30-2024 09:08-0500 Systolic blood pressure 130 mm[Hg] Pac 1 Work Phone: [facility] 04-25-2024 08:16-0400 Diastolic blood pressure 72 mm[Hg] Lidya Pena DO Work Phone: [facility] 04-25-2024 08:16-0400 Heart rate 78 /min Lidya Pena DO Work Phone: [facility] 04-25-2024 08:16-0400 SaO2% (BldA) [Mass fraction] 95 % Lidya Pena DO Work Phone: [facility] 04-25-2024 08:16-0400 Systolic blood pressure 135 mm[Hg] Lidya Pena DO Work Phone: [facility] 03-24-2024 10:02-0400 Body height 161.5 cm Jaylin Combs PA-C Work Phone: [facility] 03-24-2024 10:02-0400 Body mass index (BMI) [Ratio] 32.87 kg/m2 Jaylin TAYLOR-C Work Phone: [facility] 03-24-2024 10:02-0400 Body temperature 97.39 [degF] Jaylin Combs PA-C Work Phone: [facility] 03-24-2024 10:02-0400 Body weight 85.73 kg Jaylin Combs PA-C Work Phone: [facility] 03-24-2024 10:02-0400 Diastolic blood pressure 70 mm[Hg] Jaylin Combs PA-C Work Phone: [facility] 03-24-2024 10:02-0400 Heart rate 74 /min Jaylin oCmbs PA-C Work Phone: [facility] 03-24-2024 10:02-0400 Respiratory rate 18 /min Jaylin TAYLOR-C Work Phone: [facility] 03-24-2024 10:02-0400 SaO2% (BldA) [Mass fraction] 95 % Jaylin TAYLOR-C Work Phone: [facility] 03-24-2024 10:02-0400 Systolic blood pressure 136 mm[Hg] Jaylin TAYLOR-C Work Phone: [facility] 02-15-2024 10:51-0400 Body mass index (BMI) [Ratio] 33.13 kg/m2 Pulm Wstr Work Phone: [facility] 02-15-2024 10:51-0400 Body weight 84.82 kg Pulm Wstr Work Phone: [facility] 02-15-2024 10:36-0400 Body mass index (BMI) [Ratio] 33.13 kg/m2 Lorenza Reza MD Work Phone: [facility] 02-15-2024 10:36-0400 Body weight 84.82 kg Lorenza Reza MD Work Phone: [facility] 02-15-2024 10:36-0400 Diastolic blood pressure 76 mm[Hg] Lorenza Reza MD Work Phone: [facility] 02-15-2024 10:36-0400 Heart rate 72 /min Lorenza Reza MD Work Phone: [facility] 02-15-2024 10:36-0400 Respiratory rate 17 /min Lorenza Reza MD Work Phone: [facility] 02-15-2024 10:36-0400 SaO2% (BldA) [Mass fraction] 95 % Lorenza Reza MD Work Phone: [facility] 02-15-2024 10:36-0400 Systolic blood pressure 130 mm[Hg] Lorenza Reza MD Work Phone: [facility] 01-28-2024 11:10-0400 Diastolic blood pressure 80 mm[Hg] Shelley Haagen COLOR REPAIRER.ECHOCARDIOGRAPHER Work Phone: [facility] 01-28-2024 11:10-0400 Heart rate 76 /min Shelley Haagen COLOR REPAIRER.ECHOCARDIOGRAPHER Work Phone: [facility] 01-28-2024 11:10-0400 Respiratory rate 16 /min Shelley Haagen COLOR REPAIRER.ECHOCARDIOGRAPHER Work Phone: [facility] 01-28-2024 11:10-0400 SaO2% (BldA) [Mass fraction] 93 % Shelley Haagen COLOR REPAIRER.ECHOCARDIOGRAPHER Work Phone: [facility] 01-28-2024 11:10-0400 Systolic blood pressure 142 mm[Hg] Shelley Haagen COLOR REPAIRER.ECHOCARDIOGRAPHER Work Phone: [facility] 11-09-2023 13:44-0400 Body mass index (BMI) [Ratio] 33.48 kg/m2 Jaylin Combs PA-C Work Phone: [facility] 11-09-2023 13:44-0400 Body temperature 98.01 [degF] Jaylin Combs PA-C Work Phone: [facility] 11-09-2023 13:44-0400 Body weight 85.73 kg Jaylin Combs PA-C Work Phone: [facility] 11-09-2023 13:44-0400 Diastolic blood pressure 86 mm[Hg] Jaylin Combs PA-C Work Phone: [facility] 11-09-2023 13:44-0400 Heart rate 87 /min Jaylin Combs PA-C Work Phone: [facility] 11-09-2023 13:44-0400 Respiratory rate 24 /min Jaylin Combs PA-C Work Phone: [facility] 11-09-2023 13:44-0400 SaO2% (BldA) [Mass fraction] 96 % Jaylin Combs PA-C Work Phone: [facility] 11-09-2023 13:44-0400 Systolic blood pressure 128 mm[Hg] Jaylin Combs PA-C Work Phone: [facility] 10-04-2023 09:37-0400 Body temperature 98.01 [degF] Jaylin Combs PA-C Work Phone: [facility] 10-04-2023 09:37-0400 Body weight 85.73 kg Jaylin Combs PA-C Work Phone: [facility] 10-04-2023 09:37-0400 Diastolic blood pressure 84 mm[Hg] Jaylin Combs PA-C Work Phone: [facility] 10-04-2023 09:37-0400 Heart rate 69 /min Jaylin Combs PA-C Work Phone: [facility] 10-04-2023 09:37-0400 Respiratory rate 18 /min Jaylin Combs PA-C Work Phone: [facility] 10-04-2023 09:37-0400 SaO2% (BldA) [Mass fraction] 95 % Jaylin Combs PA-C Work Phone: [facility] 10-04-2023 09:37-0400 Systolic blood pressure 136 mm[Hg] Jaylin Combs PA-C Work Phone: [facility] 10-01-2023 15:27-0400 Body height 160 cm Talya Satya COLOR REPAIRER.ECHOCARDIOGRAPHER Work Phone: [facility] 10-01-2023 15:27-0400 Body weight 84.91 kg Talya Ormsby COLOR REPAIRER.ECHOCARDIOGRAPHER Work Phone: [facility] 10-01-2023 15:27-0400 Diastolic blood pressure 72 mm[Hg] Talya Satya COLOR REPAIRER.ECHOCARDIOGRAPHER Work Phone: [facility] 10-01-2023 15:27-0400 Systolic blood pressure 142 mm[Hg] Talya Ormsby COLOR REPAIRER.ECHOCARDIOGRAPHER Work Phone: [facility] 09-06-2023 11:29-0500 Body temperature 97.9 [degF] Jaylin Combs PA-C Work Phone: [facility] 09-06-2023 11:29-0500 Body weight 84.82 kg Jaylin Combs PA-C Work Phone: [facility] 09-06-2023 11:29-0500 Diastolic blood pressure 76 mm[Hg] Jaylin Combs PA-C Work Phone: [facility] 09-06-2023 11:29-0500 Heart rate 95 /min Jaylin Combs PA-C Work Phone: [facility] 09-06-2023 11:29-0500 Respiratory rate 22 /min Jaylin Combs PA-C Work Phone: [facility] 09-06-2023 11:29-0500 SaO2% (BldA) [Mass fraction] 93 % Jaylin Combs PA-C Work Phone: [facility] 09-06-2023 11:29-0500 Systolic blood pressure 110 mm[Hg] Jaylin Combs PA-C Work Phone: [facility] 09-03-2023 11:27-0500 Body temperature 98.71 [degF] Jaylin Combs PA-C Work Phone: [facility] 09-03-2023 11:27-0500 Body weight 85.73 kg Jaylin Combs PA-C Work Phone: [facility] 09-03-2023 11:27-0500 Diastolic blood pressure 70 mm[Hg] Jaylin Combs PA-C Work Phone: [facility] 09-03-2023 11:27-0500 Heart rate 95 /min Jaylin Combs PA-C Work Phone: [facility] 09-03-2023 11:27-0500 Respiratory rate 20 /min Jaylin Combs PA-C Work Phone: [facility] 09-03-2023 11:27-0500 SaO2% (BldA) [Mass fraction] 96 % Jaylin Combs PA-C Work Phone: [facility] 09-03-2023 11:27-0500 Systolic blood pressure 138 mm[Hg] Jaylin Combs PA-C Work Phone: [facility] 04-06-2023 09:34-0400 Body temperature 97.5 [degF] Jaylin Combs PA-C Work Phone: [facility] 04-06-2023 09:34-0400 Body weight 86.18 kg Jaylin Combs PA-C Work Phone: [facility] 04-06-2023 09:34-0400 Diastolic blood pressure 80 mm[Hg] Jaylin Combs PA-C Work Phone: [facility] 04-06-2023 09:34-0400 Heart rate 64 /min Jaylin Combs PA-C Work Phone: [facility] 04-06-2023 09:34-0400 Respiratory rate 18 /min Jaylin Combs PA-C Work Phone: [facility] 04-06-2023 09:34-0400 Systolic blood pressure 110 mm[Hg] Jaylin Combs PA-C Work Phone: [facility] 03-03-2023 12:57-0400 Body height 162.8 cm Jaylin Combs PA-C Work Phone: [facility] 03-03-2023 12:57-0400 Body temperature 97.81 [degF] Jaylin Combs PA-C Work Phone: [facility] 03-03-2023 12:57-0400 Body weight 86.18 kg Jaylin Combs PA-C Work Phone: [facility] 03-03-2023 12:57-0400 Diastolic blood pressure 80 mm[Hg] Jaylin Combs PA-C Work Phone: [facility] 03-03-2023 12:57-0400 Heart rate 73 /min Jaylin Combs PA-C Work Phone: [facility] 03-03-2023 12:57-0400 Respiratory rate 18 /min Jaylin Combs PA-C Work Phone: [facility] 03-03-2023 12:57-0400 Systolic blood pressure 120 mm[Hg] Jaylin Combs PA-C Work Phone: [facility] 10-19-2022 11:38-0400 Body temperature 98.2 [degF] Jaylin Combs PA-C Work Phone: [facility] 10-19-2022 11:38-0400 Body weight 87.09 kg Jaylin Combs PA-C Work Phone: [facility] 10-19-2022 11:38-0400 Diastolic blood pressure 76 mm[Hg] Jaylin Combs PA-C Work Phone: [facility] 10-19-2022 11:38-0400 Heart rate 80 /min Jaylin Combs PA-C Work Phone: [facility] 10-19-2022 11:38-0400 Respiratory rate 18 /min Jaylin Combs PA-C Work Phone: [facility] 10-19-2022 11:38-0400 SaO2% (BldA) [Mass fraction] 96 % Jaylin Combs PA-C Work Phone: [facility] 10-19-2022 11:38-0400 Systolic blood pressure 126 mm[Hg] Jaylin Comsb PA-C Work Phone: [facility] 08-19-2022 13:11-0500 Diastolic blood pressure 73 mm[Hg] Jaylin Combs PA-C Work Phone: [facility] 08-19-2022 13:11-0500 Systolic blood pressure 139 mm[Hg] Jaylin Combs PA-C Work Phone: [facility] 08-19-2022 12:24-0500 Body weight 86.91 kg Jaylin Combs PA-C Work Phone: [facility] 08-19-2022 12:24-0500 Heart rate 52 /min Jaylin Combs PA-C Work Phone: [facility] 08-19-2022 12:24-0500 Respiratory rate 24 /min Jaylin Combs PA-C Work Phone: [facility] 08-19-2022 12:24-0500 SaO2% (BldA) [Mass fraction] 96 % Jaylin Combs PA-C Work Phone: [facility] 02-12-2022 11:15-0400 Diastolic blood pressure 78 mm[Hg] Scot Blank MD Work Phone: [facility] 02-12-2022 11:15-0400 Systolic blood pressure 128 mm[Hg] Scot Blank MD Work Phone: [facility] 02-12-2022 10:13-0400 Body height 161.9 cm Scot Blank MD Work Phone: [facility] 02-12-2022 10:13-0400 Body weight 83.92 kg Scot Blank MD Work Phone: [facility] 02-12-2022 10:13-0400 Heart rate 70 /min Scot Blank MD Work Phone: [facility] 02-12-2022 10:13-0400 Respiratory rate 16 /min Scot Blank MD Work Phone: [facility] 12-22-2021 16:50-0400 Body temperature 97.8 [degF] [facility] Work Phone: 12-22-2021 16:50-0400 Diastolic blood pressure 82 mm[Hg] [facility] Work Phone: 12-22-2021 16:50-0400 Heart rate 74 /min [facility] Work Phone: 12-22-2021 16:50-0400 Respiratory rate 18 /min [facility] Work Phone: 12-22-2021 16:50-0400 SaO2% (BldA) [Mass fraction] 98 % [facility] Work Phone: 12-22-2021 16:50-0400 Systolic blood pressure 157 mm[Hg] [facility] Work Phone: 12-22-2021 12:49-0400 Body height 162.56 cm [facility] Work Phone: 12-22-2021 12:49-0400 Body mass index (BMI) [Ratio] 32.9 kg/m2 [facility] Work Phone: 12-22-2021 12:49-0400 Body weight 87.1 kg [facility] Work Phone: 10-13-2021 13:38-0400 Body temperature 97.9 [degF] Jaylin TAYLOR-C Work Phone: [facility] 10-13-2021 13:38-0400 Diastolic blood pressure 78 mm[Hg] Jaylin TAYLOR-C Work Phone: [facility] 10-13-2021 13:38-0400 Heart rate 84 /min Jaylin Combs PA-C Work Phone: [facility] 10-13-2021 13:38-0400 Respiratory rate 18 /min Jaylin Combs PA-C Work Phone: [facility] 10-13-2021 13:38-0400 SaO2% (BldA) [Mass fraction] 98 % Jaylin Combs PA-C Work Phone: [facility] 10-13-2021 13:38-0400 Systolic blood pressure 130 mm[Hg] Jaylin TAYLOR-C Work Phone: [facility] Encounters Encounter Date Encounter Type Care Provider Facility Start: 02-12-2025 End: 02-12-2025 Emergency department patient visit Dr. Scot Blank MD Work Phone: -Emergency Department Work Phone: Start: 02-12-2025 Patient encounter procedure Nadir Nunn DPM -Cardiovascular Services Work Phone: Start: 02-05-2025 End: 02-05-2025 Telephone encounter Jaylin Combs PA-C Work Phone: [facility] Comment on above: Appointment; FYI-No Action Needed Start: 01-28-2025 End: 01-29-2025 Follow-up encounter Jaylin Combs PA-C Work Phone: [facility] Start: 01-22-2025 End: 01-22-2025 Subsequent hospital visit by physician Xr [facility] Work Phone: Radiology Comment on above: Chronic pain of left ankle [M25.572, G89.29] Start: 01-22-2025 End: 01-22-2025 Office outpatient visit 15 minutes Jaylin Combs PA-C Work Phone: [facility] Comment on above: Chronic pain of left ankle (Primary Dx); Swelling of ankle joint, left Start: 01-22-2025 End: 01-22-2025 ambulatory JAYLIN COMBS Facility:[facility] Start: 01-18-2025 End: 01-18-2025 Refill Lorenza Reza MD Work Phone: Pulmonary Medicine Comment on above: Refill Request Start: 01-16-2025 End: 01-18-2025 Refill Scot Blank MD Work Phone: [facility] Comment on above: Refill Request Start: 11-14-2024 End: 11-14-2024 Refill Scot Blank MD Work Phone: [facility] Comment on above: Refill Request Start: 10-25-2024 End: 10-25-2024 Telephone encounter Jaylin Combs PA-C Work Phone: [facility] Comment on above: Prescription (Medrol pack) Start: 10-24-2024 End: 10-24-2024 ambulatory JAYLIN COMBS Facility:[facility] Start: 10-24-2024 End: 10-24-2024 Patient encounter procedure Jaylin Combs PA-C Work Phone: [facility] Comment on above: Mixed hyperlipidemia (Primary Dx); Essential tremor; Vitamin B12 deficiency; Elevated fasting blood sugar; Age-related osteoporosis without current pathological fracture; Gastroesophageal reflux disease with esophagitis without hemorrhage; Mild persistent asthma without complication (HCC); Vitamin D deficiency; Mixed incontinence; May-Thurner syndrome; Acute left-sided low back pain without sciatica Start: 10-16-2024 End: 10-16-2024 ambulatory BRYSON DHILLON Facility:[facility] Start: 10-16-2024 End: 10-16-2024 Patient encounter procedure Bryson Dhillon MD Work Phone: Orthopaedics Comment on above: S/P total knee arthr oplasty, right (Primary Dx); Back strain, initial encounter Start: 10-04-2024 End: 12-04-2024 Follow-up encounter Suzi Dobson MD Work Phone: OB/Gynecology Start: 10-03-2024 End: 10-03-2024 ambulatory [facility] Facility:[facility] Start: 10-03-2024 Encounter for gynecological examination (general) (routine) with abnormal findings BRYSON DHILLON [facility] Start: 10-03-2024 End: 10-03-2024 Patient encounter status Screen [facility] Start: 10-03-2024 End: 10-03-2024 Subsequent hospital visit by physician Screen Mammo [facility] Comment on above: Encounter for gyneco logical examination with abnormal finding [Z01.411] Start: 09-25-2024 End: 10-04-2024 Follow-up encounter Jaylin Combs PA-C Work Phone: [facility] Comment on above: Results Start: 09-18-2024 End: 09-18-2024 Telephone encounter Bryson Dhillon MD Work Phone: Orthopaedics Comment on above: Patient Question Start: 09-18-2024 End: 09-18-2024 ambulatory Xander Wu PT Work Phone: [facility] Comment on above: S/P total knee arthr oplasty, left (Primary Dx) Start: 09-15-2024 End: 09-15-2024 ambulatory Xander Wu PT Work Phone: [facility] Comment on above: S/P total knee arthr oplasty, left (Primary Dx) Start: 09-11-2024 End: 09-11-2024 ambulatory Xander Wu PT Work Phone: [facility] Comment on above: S/P total knee arthr oplasty, left (Primary Dx) Start: 09-08-2024 End: 09-08-2024 ambulatory Lissa O'Jacques PT [facility] Comment on above: S/P total knee arthr oplasty, left (Primary Dx) Start: 09-05-2024 End: 09-06-2024 Refill Scot Blank MD Work Phone: [address] [place] [address] Comment on above: Refill Request Start: 09-04-2024 End: 09-04-2024 ambulatory Xander Wu PT Work Phone: [facility] Comment on above: S/P total knee arthr oplasty, left (Primary Dx) Start: 09-04-2024 End: 09-04-2024 Patient encounter procedure Bryson Dhillon MD Work Phone: Orthopaedics Comment on above: S/P total knee arthr oplasty, right (Primary Dx) Start: 08-28-2024 End: 08-28-2024 ambulatory Lissa O'Jacques PT [facility] Comment on above: S/P total knee arthr oplasty, left (Primary Dx) Start: 08-21-2024 End: 08-21-2024 ambulatory Lissa O'Jacques PT [facility] Comment on above: S/P total knee arthr oplasty, left (Primary Dx) Start: 08-17-2024 End: 08-17-2024 Orders Only Rebekah Eduardo PA-C Work Phone: Orthopaedics Comment on above: S/P total knee arthr oplasty, right (Primary Dx) Start: 08-14-2024 End: 08-14-2024 Refill Bryson Dhillon MD Work Phone: Orthopaedics Comment on above: Refill Request S/P total knee arthr oplasty, right (Primary Dx) Start: 08-11-2024 End: 08-11-2024 Home visit Jazzy Pereira PT Work Phone: [facility] Comment on above: PT AGENCY DC W VISIT Start: 08-10-2024 End: 08-10-2024 Home visit Sallie Hi ENVELOPE PATTERNMAKER Work Phone: [facility] Comment on above: ENVELOPE PATTERNMAKER ROUTINE Start: 08-08-2024 End: 08-08-2024 Home visit Sallie Giuliano ENVELOPE PATTERNMAKER Work Phone: [facility] Comment on above: ENVELOPE PATTERNMAKER ROUTINE Start: 08-07-2024 End: 08-07-2024 Patient encounter procedure Rebekah Eduardo PA-C Work Phone: Orthopaedics Comment on above: S/P total knee arthr oplasty, right Start: 08-07-2024 End: 08-07-2024 ambulatory BRYSON DHILLON Facility:[facility] Start: 08-07-2024 End: 08-07-2024 Subsequent hospital visit by physician Alejo [facility] Kay Work Phone: Radiology Comment on above: S/P total knee arthr oplasty, right [Z96.651] Start: 08-04-2024 End: 08-04-2024 Orders Only Rebekah Eduardo PA-C Work Phone: Orthopaedics Comment on above: S/P total knee arthr oplasty, right (Primary Dx) ENVELOPE PATTERNMAKER ROUTINE Start: 08-02-2024 End: 08-02-2024 Telephone encounter Sallie Hi ENVELOPE PATTERNMAKER Work Phone: [facility] Comment on above: Home Care (Bandage r emoval) Start: 08-02-2024 End: 08-02-2024 Home visit Sallie Hi ENVELOPE PATTERNMAKER Work Phone: [facility] Comment on above: ENVELOPE PATTERNMAKER ROUTINE Start: 08-01-2024 End: 08-01-2024 Refill Bryson Dhillon MD Work Phone: Orthopaedics Comment on above: Refill Request Start: 07-31-2024 End: 07-31-2024 Home visit Gaviota Holt RN Work Phone: [facility] Comment on above: CARE COORDINATION ENVELOPE PATTERNMAKER ROUTINE Start: 07-28-2024 End: 07-28-2024 Home visit Jazzy Pereira PT Work Phone: [facility] Comment on above: PT SOC Start: 07-27-2024 End: 07-27-2024 Telephone encounter Dawn Vincent PSS [facility] Comment on above: Home Care (CONFIRMAT ION CALL) Start: 07-26-2024 End: 07-27-2024 ambulatory SCOT BLANK Facility:[facility] Start: 07-24-2024 End: 07-24-2024 Telephone encounter Bryson Dhillon MD Work Phone: Orthopaedics Start: 07-07-2024 ambulatory SCOT Allen ty:[facility] Start: 07-07-2024 End: 07-07-2024 Subsequent hospital visit by physician [facility] Work Phone: Cardiology Lab Comment on above: Abnormal electrocard iogram [R94.31] Start: 07-07-2024 ambulatory SCOT Allen ty:[facility] Start: 07-07-2024 End: 07-07-2024 Subsequent hospital visit by physician [facility] Work Phone: Molecular Imaging Comment on above: Abnormal electrocard iogram [R94.31] Start: 07-06-2024 End: 07-06-2024 Telephone encounter Shakila Sotelo RN Cardiology Lab Comment on above: Reminder Call Start: 06-30-2024 End: 06-30-2024 [facility] Facility:[facility] Start: 06-30-2024 Encounter for other preprocedural examination BRYSON DHILLON [facility] Start: 06-30-2024 End: 06-30-2024 Admission to establishment [facility] [place] Work Phone: Pre Anesthesia Start: 06-30-2024 End: 06-30-2024 [facility] Facility:[facility] Start: 06-30-2024 End: 06-30-2024 Anesthesia consultation [facility] [place] [facility] Work Phone: Pre Anesthesia Comment on above: Pre-operative examin ation (Primary Dx); Abnormal electrocardiogram; LBBB (left bundle branch block); Mixed hyperlipidemia; Palpitations; Mild persistent asthma without complication; Gastroesophageal reflux disease with esophagitis without hemorrhage; PUD (peptic ulcer disease); Age-related osteoporosis without current pathological fracture; Anxiety and depression; Bilateral carotid artery stenosis; May-Thurner syndrome; Mixed incontinence; Essential tremor; Primary insomnia Start: 06-30-2024 End: 06-30-2024 Preprocedural examination done [facility] [place] Work Phone: [facility] Work Phone: Start: 06-23-2024 ambulatory SCOT Allen ty:[facility] Start: 06-23-2024 End: 06-23-2024 Subsequent hospital visit by physician Ct [facility] Radiology Comment on above: Chronic pain of righ t knee [M25.561, G89.29] Start: 06-14-2024 End: 06-14-2024 Telephone encounter Bryson Dhillon MD Work Phone: Orthopaedics Comment on above: Schedule Surgery Pre-Op Teaching Start: 06-12-2024 End: 06-12-2024 ambulatory BRYSON DHILLON Facility:[facility] Start: 06-12-2024 End: 06-12-2024 Patient encounter procedure Bryson Dhillon MD Work Phone: Orthopaedics Comment on above: Chronic pain of righ t knee (Primary Dx); Primary osteoarthritis of right knee Start: 06-09-2024 End: 06-09-2024 Telephone encounter Scot Balnk MD Work Phone: [facility] Comment on above: request new handicap placfarhan Refill Request Start: 05-29-2024 End: 05-29-2024 ambulatory REBEKAH VETOVITZ Facility:[facility] Start: 05-29-2024 End: 05-29-2024 Patient encounter procedure Rebekah Vetovitz PA-C Work Phone: Orthopaedics Comment on above: Other secondary oste oarthritis of right knee (Primary Dx) Start: 05-17-2024 End: 05-17-2024 ambulatory REBEKAH VETOVITZ Facility:[facility] Start: 05-17-2024 End: 05-17-2024 Subsequent hospital visit by physician Mri Radio [facility] (I-Stat/1.5t) Work Phone: Radiology Comment on above: Other secondary oste oarthritis of right knee [M17.5] Start: 05-15-2024 End: 05-15-2024 ambulatory REBEKAH VETOVITZ Facility:[facility] Start: 05-15-2024 End: 05-15-2024 Patient encounter procedure Rebekah Vetovitz PA-C Work Phone: Orthopaedics Comment on above: Other secondary oste oarthritis of right knee (Primary Dx) Start: 04-26-2024 End: 04-26-2024 Refill Scot Blank MD Work Phone: [facility] Comment on above: Refill Request Start: 04-25-2024 End: 04-25-2024 ambulatory LIDYA PENA Facility:[facility] Start: 04-25-2024 End: 04-25-2024 Patient encounter procedure Lidya Pena DO Work Phone: Vascular Surgery Comment on above: May-Thurner syndrome Start: 04-14-2024 End: 04-14-2024 Telephone encounter Jaylin Combs PA-C Work Phone: [facility] Comment on above: Results Start: 04-13-2024 End: 04-13-2024 ambulatory JAYLIN GARRET Facility:[facility] Start: 03-24-2024 End: 03-24-2024 ambulatory JAYLIN GARRET Facility:[facility] Start: 03-24-2024 End: 03-24-2024 Patient encounter procedure Jaylin Combs PA-C Work Phone: [facility] [place] Comment on above: Medicare annual [facility], subsequent (Primary Dx); Advance directive discussed with patient; May-Thurner syndrome; Essential tremor; Primary insomnia; Mixed hyperlipidemia; Mild persistent asthma without complication; Gastroesophageal reflux disease with esophagitis without hemorrhage; PUD (peptic ulcer disease); Elevated fasting blood sugar; Age-related osteoporosis without current pathological fracture; Vitamin D deficiency; Bilateral carotid artery stenosis; Obesity, Class I, BMI 30-34.9; Medication management Start: 03-03-2024 End: 03-03-2024 Patient encounter procedure Garth Gonzalez PA-C Work Phone: Orthopaedics Comment on above: Primary osteoarthrit is of right knee (Primary Dx) Start: 03-03-2024 End: 03-03-2024 ambulatory UNKNOWN PROVIDER Facility:[facility] Start: 03-03-2024 End: 03-03-2024 Subsequent hospital visit by physician Radio [facility] Work Phone: Radiology Comment on above: Pain [R52] Start: 02-23-2024 Orders Only Garth agudelo PA-C Work Phone: Orthopaedics Comment on above: Right knee pain, uns pecified chronicity (Primary Dx) Start: 02-21-2024 Telephone encounter Jaylin velasco PA-C Work Phone: [facility] [place] Comment on above: Results Start: 02-15-2024 End: 02-15-2024 ambulatory JAYLIN COMBS Facility:[facility] Start: 02-15-2024 End: 02-15-2024 ambulatory Pulm Lab [facility] Work Phone: PUL[facility] Comment on above: Spirometry Start: 02-15-2024 End: 02-15-2024 Patient encounter procedure Pulm Lab [facility] Work Phone: [facility] Comment on above: Cough variant asthma (Primary Dx); Multiple allergies Start: 01-28-2024 End: 01-28-2024 Patient encounter procedure Shelley Talavera APRN.ECHOCARDIOGRAPHER Work Phone: [facility] [place] Comment on above: Inflamed skin tag (P rimary Dx); Primary insomnia Start: 01-10-2024 Refill Jaylin De Los Santos on PA-C Work Phone: [facility] Comment on above: Refill Request (Kourtney ent requesting this RX until she sees Pulmonology on 02/15/2024 please) Start: 11-09-2023 End: 11-09-2023 Patient encounter procedure Jaylin Combs PA-C Work Phone: [facility] [place] Comment on above: Bronchitis (Primary Dx); Persistent cough; Mild persistent asthma without complication Start: 11-08-2023 ambulatory Scot cortez MD Work Phone: [facility] [place] Comment on above: Cough (Drainage) Start: 10-05-2023 Refill Jaylin De Los Santos on PA-C Work Phone: [facility] [place] Start: 10-04-2023 End: 10-04-2023 Patient encounter procedure Jaylin Combs PA-C Work Phone: [facility] [place] Comment on above: Post-nasal drip (Angelia lima Dx); Primary insomnia Start: 10-01-2023 End: 10-01-2023 Patient encounter procedure Talya May APRN.ECHOCARDIOGRAPHER Work Phone: OB/Gynecology Comment on above: Encounter for gyneco logical examination with abnormal finding (Primary Dx); Encounter for screening mammogram for malignant neoplasm of breast Start: 10-01-2023 End: 10-01-2023 Patient encounter status Talya May SHANAE Work Phone: [facility] Start: 09-07-2023 Telephone encounter Jaylin velasco PA-C Work Phone: [facility] [place] Comment on above: Results Start: 09-06-2023 End: 09-06-2023 Subsequent hospital visit by physician Xr [facility] [place] Work Phone: Radiology Comment on above: Bronchitis [J40] Start: 09-06-2023 End: 09-06-2023 Patient encounter procedure Jaylin Combs PA-C Work Phone: [facility] [place] Comment on above: Bronchitis (Primary Dx); Moderate persistent asthma with (acute) exacerbation Start: 09-03-2023 End: 09-03-2023 Patient encounter procedure Jaylin Combs PA-C Work Phone: [facility] [place] Comment on above: Mixed hyperlipidemia (Primary Dx); URI, acute; Age-related osteoporosis without current pathological fracture; Vitamin D deficiency; Elevated fasting blood sugar; Gastroesophageal reflux disease with esophagitis without hemorrhage; Mild persistent asthma without complication; Primary insomnia; Essential tremor; Senile osteoporosis Start: 06-21-2023 Orders Only Scot cortez MD Work Phone: Appointment Center Comment on above: Visit for screening mammogram (Primary Dx) Start: 04-06-2023 End: 04-06-2023 Patient encounter procedure Jaylin Combs PA-C Work Phone: [facility] [place] Comment on above: Senile osteoporosis (Primary Dx); Chronic sinusitis, unspecified location; Chronic cough Start: 03-20-2023 Telephone encounter Jaylin velasco PA-C Work Phone: [facility] [place] Comment on above: Results Start: 03-17-2023 End: 03-17-2023 Subsequent hospital visit by physician Bone Density [facility] Work Phone: Radiology Comment on above: Asymptomatic postmen opausal status [Z78.0] Start: 03-04-2023 Telephone encounter Scot Blank MD Work Phone: [facility] Comment on above: Insurance Authorizat ion (Pantoprazole ) Start: 03-03-2023 End: 03-03-2023 Patient encounter procedure Jaylin Combs PA-C Work Phone: [facility] Comment on above: Medicare annual well ness visit, subsequent (Primary Dx); Advance directive discussed with patient; Mixed hyperlipidemia; Elevated fasting blood sugar; Mild persistent asthma without complication; Primary insomnia; Asymptomatic postmenopausal status; Senile osteoporosis Start: 01-25-2023 Telephone encounter Scot Blank MD Work Phone: [facility] Comment on above: Patient Request Start: 12-25-2022 Encounter for other preprocedural examination Haritha Egan [facility] Start: 12-18-2022 End: 12-18-[address] Gina Gibson Facility:[facility] Start: 12-08-2022 End: 12-08-2022 ambulatory Haritha Egan Facility:[facility] Start: 11-16-2022 End: 11-16-[address] Gina Gibson [facility] Work Phone: Start: 11-16-2022 End: 11-16-2022 Patient encounter procedure [facility]-Ultrasound, [facility] Start: 10-19-2022 Telephone encounter Jaylin velasco PA-C Work Phone: [facility] Comment on above: Results Start: 10-19-2022 End: 10-19-2022 Subsequent hospital visit by physician Xr [facility] Work Phone: Radiology Comment on above: Subacute cough [R05. 2] Start: 10-19-2022 End: 10-19-2022 Patient encounter procedure Jaylin Combs PA-C Work Phone: [facility] Comment on above: Subacute cough (Prim alison Dx); COPD with exacerbation (HCC) Start: 10-08-2022 Refill Scot cortez MD Work Phone: [facility] Comment on above: Refill Request Start: 10-02-2022 Refill Scot cortez MD Work Phone: Family [facility] [place] Comment on above: Refill Request Start: 09-18-2022 End: 09-18-2022 Subsequent hospital visit by physician Xr [facility] [place] Kay Work Phone: Radiology Comment on above: Foreign body (FB) in soft tissue [M79.5] Start: 09-18-2022 End: 09-18-2022 Patient encounter procedure Maciej Brown Work Phone: Podiatry Comment on above: Foreign body (FB) in soft tissue (Primary Dx); Acquired hallux valgus of left foot; Pain in left foot Start: 08-19-2022 End: 08-19-2022 Patient encounter procedure Jaylin Combs PA-C Work Phone: [facility] [place] Comment on above: Mixed hyperlipidemia (Primary Dx); Essential tremor; Primary insomnia; Senile osteoporosis; Anxiety and depression; Bilateral carotid artery stenosis; Mild persistent asthma without complication; Elevated fasting blood sugar; Family history of thyroid disease; Weight gain Start: 07-15-2022 Documentation procedure Mammog jayson Coordinator [facility] Start: 07-15-2022 Letter encounter Mammography Coordinator [facility] Department Start: 07-14-2022 End: 07-14-2022 Subsequent hospital visit by physician Screen Mammo [facility] Mammogram Comment on above: Encounter for screen ing mammogram for malignant neoplasm of breast [Z12.31] Start: 07-09-2022 Orders Only Suzi gabriel MD Work Phone: [facility] [place] Comment on above: Encounter for screen ing mammogram for malignant neoplasm of breast (Primary Dx) Start: 04-27-2022 Refill Scot cortez MD Work Phone: [facility] [place] Comment on above: Refill Request Start: 04-09-2022 End: 04-09-2022 Patient encounter procedure Maciej Brown Work Phone: Podiatry Comment on above: Pain in left foot (P rimary Dx); Plantar fascial fibromatosis; Foreign body (FB) in soft tissue Start: 04-09-2022 End: 04-09-2022 Subsequent hospital visit by physician Alejo [facility] Rahul Work Phone: Radiology Comment on above: Pain in left foot [M 79.672] Start: 03-27-2022 Chris Sanchez MA [facility] Start: 03-18-2022 Telephone encounter Scot Blank MD Work Phone: [facility] Comment on above: Rx issue Start: 02-27-2022 Telephone encounter Scot Blank MD Work Phone: [facility] Comment on above: Patient Update Start: 02-18-2022 Telephone encounter Scot Blank MD Work Phone: [facility] Comment on above: Results Start: 02-12-2022 End: 02-12-2022 Patient encounter procedure Scot Blank MD Work Phone: [facility] Comment on above: Medicare annual [facility] visit, subsequent (Primary Dx); Mixed hyperlipidemia; Elevated fasting blood sugar; Bilateral carotid artery stenosis; Gastroesophageal reflux disease with esophagitis without hemorrhage; Left leg swelling; PUD (peptic ulcer disease); Mild persistent asthma without complication; Anxiety and depression; Essential tremor; May-Thurner syndrome; Obesity, Class I, BMI 30-34.9; Primary insomnia; Mixed incontinence; Chronic pain of right knee; Right leg weakness; Living will on file; Advance directive discussed with patient Start: 12-22-2021 End: 12-22-2021 Admission to same day surgery center [facility] Start: 11-18-2021 End: 11-18-2021 Patient encounter procedure [facility] Start: 10-13-2021 End: 10-13-2021 Patient encounter procedure Jaylin Combs PA-C Work Phone: [facility] Comment on above: Bacterial pneumonia (Primary Dx); Mild persistent asthma without complication; Primary insomnia Start: 07-08-2021 End: 07-08-2021 Subsequent hospital visit by physician Alejo [facility] [place] Work Phone: Radiology Comment on above: Cough [R05.9] Start: 04-11-2021 End: 04-11-2021 Subsequent hospital visit by physician Alejo [facility] [place] Work Phone: Radiology Comment on above: Chronic pain of left ankle [M25.572, G89.29] Start: 09-27-2020 Patient encounter procedure Jaylin Combs PA-C Work Phone: [facility] Work Phone: Start: 03-03-2017 Ambulatory [facility] Start: 02-11-2017 End: 02-13-2017 Ambulatory [facility] Start: 01-21-2017 End: 06-15-2019 Patient encounter status Scot Blank MD Work Phone: [facility] Start: 12-06-2015 End: 06-15-2019 Patient encounter status Scot Blank MD Work Phone: [facility] Work Phone: Start: 11-20-2009 End: 12-22-2011 Patient encounter status Scot Blank MD Work Phone: [facility] Procedures Date Procedure Procedure Detail Performing Clinician Start: 09-15-2024 Lipid 1996 panel - S vero or Plasma Xander Wu PT Work Phone: Start: 07-07-2024 Myocardial spect mul tiple studies Yari Rincon APRN.ECHOCARDIOGRAPHER Work Phone: Start: 06-23-2024 Ct lower extremity w /o contrast material Bryson Dhillon MD Work Phone: Start: 03-03-2024 Arthrocentesis aspir &/inj major jt/bursa w/o us Garth Gonzalez PA-C Work Phone: Start: 03-03-2024 Radiologic exam knee complete 4/more views Garth Gonzalez PA-C Work Phone: Start: 02-15-2024 Brncdilat rspse spmt ry pre&post-brncdilat admn Lorenza Reza MD Work Phone: Start: 02-15-2024 Nitric oxide gas determination Lorenza Reza MD Work Phone: Start: 02-15-2024 Lipid 1996 panel - S vero or Plasma Jaylin Combs PA-C Work Phone: Start: 09-06-2023 Radiologic exam ches t 2 views Jaylin Combs PA-C Work Phone: Start: 09-02-2023 Lipid 1996 panel - S vero or Plasma Jaylin Combs PA-C Work Phone: Start: 03-17-2023 Dxa bone density marcellus dy 1/> sites axial skel Jaylin Combs PA-C Work Phone: Start: 03-01-2023 Lipid 1996 panel - S vero or Plasma Jaylin Combs PA-C Work Phone: Start: 11-16-2022 Ultrasonography of limb Start: 10-19-2022 Radiologic exam ches t 2 views Jaylin Combs PA-C Work Phone: Start: 09-18-2022 Radex foot complete minimum 3 views Maciej Kevin Work Phone: Start: 07-14-2022 End: 07-14-2022 Mammography Suzi Dobson MD Work Phone: Start: 04-09-2022 Radex foot complete minimum 3 views Maciejiris Brown Work Phone: Start: 12-22-2021 Fluoroscopic guidance Start: 12-22-2021 Injection of knee joint Start: 12-22-2021 Radiologic examinati on of knee Start: 07-08-2021 Radiologic exam ches t 2 views Scot Che APRN.ECHOCARDIOGRAPHER Work Phone: Start: 06-30-2021 Mammography Jaylin kirkpatrickon PA-C Work Phone: Start: 04-11-2021 Radex ankle complete minimum 3 views Jermaine Boothe APRN.ECHOCARDIOGRAPHER Work Phone: Start: 05-22-2019 Colonoscopy Jaylin Ro binson PA-C Work Phone: Plan of Treatment Date Care Activity Detail Author Start: 09-15-2029 Lipid panel Lipid Screening [facility] Start: 05-22-2029 Colonoscopy COLONOSCOPY [facility] Start: 05-22-2029 COLORECTAL CANCER SCREENING COLORECTAL CANCER SCREENING [facility] Start: 05-22-2029 Screening for malignant neoplasm of colon [facility] Start: 02-14-2029 Lipid panel Lipid Screening [facility] Start: 09-02-2028 Lipid panel Lipid Screening [facility] Start: 03-01-2028 Lipid 1996 panel - Serum or Plasma Lipid Screening [facility] Start: 03-01-2028 Lipid panel Lipid Screening [facility] Start: 03-01-2028 LIPID SCREEN LIPID SCREEN [facility] Start: 09-16-2027 Diabetes Screening Diabetes Screening [facility] Start: 08-18-2027 LIPID SCREEN LIPID SCREEN [facility] Start: 07-27-2027 Diabetes Screening Diabetes Screening [facility] Start: 06-30-2027 Diabetes Screening Diabetes Screening [facility] Start: 02-14-2027 Diabetes Screening Diabetes Screening [facility] Start: 11-18-2026 LIPID SCREEN LIPID SCREEN [facility] Start: 09-02-2026 Diabetes Screening Diabetes Screening [facility] Start: 05-06-2026 LIPID SCREEN LIPID SCREEN [facility] Start: 03-01-2026 DIABETES SCREEN DIABETES SCREEN [facility] Start: 03-01-2026 Diabetes Screening Diabetes Screening [facility] Start: 01-22-2026 Annual PCP Team Chronic Disease Visit Annual PCP Team Chronic Disease Visit [facility] Start: 10-24-2025 Annual PCP Team Chronic Disease Visit Annual PCP Team Chronic Disease Visit [facility] Start: 10-03-2025 Screening for malignant neoplasm of breast Mammogram Screening [facility] Start: 08-18-2025 DIABETES SCREEN DIABETES SCREEN [facility] Start: 07-30-2025 End: 07-30-2025 Patient encounter procedure 07/30/2025 12:45 PM EST Office Visit Orthopaedics [address] [place], [place] [id number] Bryson Dhillon MD [address] [place] [id number] 1 year follow up right [facility] Comment on above: 1 year follow up right [facility] Start: 04-26-2025 End: 04-26-2025 Patient encounter procedure 04/26/2025 9:20 AM EDT Office Visit [facility] [place] [address] [place] [address] Jaylin Combs PA-C [address] [place] [address] Medicare [facility] [place] Comment on above: Medicare Keyshawn Start: 04-25-2025 End: 07-25-2025 25-hydroxyvitamin D3 [Mass/volume] in Serum or Plasma VITAMIN D 25 HYDROXY Lab Routine Vitamin D deficiency Expected: 04/25/2025, Expires: 07/25/2025 [facility] Comment on above: Expected: 04/25/2025, Expires: Start: 04-25-2025 End: 07-25-2025 Cobalamin (Vitamin B12) [Mass/volume] in Serum or Plasma VITAMIN B12 Lab Routine Vitamin B12 deficiency Expected: 04/25/2025, Expires: 07/25/2025 [facility] Work Phone: Comment on above: Expected: 04/25/2025, Expires: Start: 04-25-2025 End: 07-25-2025 Comprehensive metabolic 2000 panel - Serum or Plasma COMPREHENSIVE METABOLIC PANEL Lab Routine Vitamin D deficiency Expected: 04/25/2025, Expires: 07/25/2025 [facility] Comment on above: Expected: 04/25/2025, Expires: Start: 04-25-2025 End: 07-25-2025 Hemoglobin A1c in Blood HEMOGLOBIN A1C Lab Routine Elevated fasting blood sugar Expected: 04/25/2025, Expires: 07/25/2025 [facility] Comment on above: Expected: 04/25/2025, Expires: Start: 04-25-2025 End: 07-25-2025 LIPID PANEL, NONFASTING LIPID PANEL, NONFASTING Lab Routine Mixed hyperlipidemia Expected: 04/25/2025, Expires: 07/25/2025 [facility] Comment on above: Expected: 04/25/2025, Expires: Start: 03-24-2025 Annual PCP Team Chronic Disease Visit Annual PCP Team Chronic Disease Visit [facility] Start: 03-24-2025 Medicare Annual Wellness Visit Medicare Annual Wellness Visit [facility] Start: 03-17-2025 Screening for osteoporosis Bone Density Screening [facility] Start: 02-12-2025 US.doppler Lower extremity vein [facility] Start: 01-27-2025 Annual PCP Team Chronic Disease Visit Annual PCP Team Chronic Disease Visit [facility] Start: 11-18-2024 DIABETES SCREEN DIABETES SCREEN [facility] Start: 11-08-2024 Annual PCP Team Chronic Disease Visit Annual PCP Team Chronic Disease Visit [facility] Start: 10-24-2024 End: 10-24-2024 Patient encounter procedure 10/24/2024 1:40 PM EDT Office Visit Family [facility] [address] [place] [address] Jaylin Combs PA-C [address] [place] [address] 6 month f/u Family [facility] Comment on above: 6 month f/u Start: 10-16-2024 End: 10-16-2024 Patient encounter procedure 10/16/2024 12:45 PM EDT Office Visit Orthopaedics [address] [place] [address] Bryson Dhillon MD [address] [place] [address] Post op robotic assisted right [facility] Comment on above: Post op robotic assisted right [facility] Start: 10-03-2024 Annual PCP Team Chronic Disease Visit Annual PCP Team Chronic Disease Visit [facility] Start: 10-03-2024 End: 10-03-2024 Patient encounter procedure Mammogram Comment on above: KALLI SCREENING annual Start: 10-03-2024 End: 10-03-2024 Patient encounter procedure 10/03/2024 10:10 AM EDT Appointment Mammogram [address] [place] [address] KALLI SCREENING Mammogram Comment on above: KALLI SCREENING Start: 09-22-2024 End: 09-22-2024 Patient encounter procedure 09/22/2024 10:00 AM EDT Office Visit Family Medicine [place] [address] [place] [address] Jaylin Combs PA-C [address] [place] [address] 6 month f/u Family [facility] [place] Comment on above: 6 month f/u Start: 09-21-2024 End: 12-21-2024 25-hydroxyvitamin D3 [Mass/volume] in Serum or Plasma VITAMIN D 25 HYDROXY Lab Routine Vitamin D deficiency Expected: 09/21/2024, Expires: 12/21/2024 [facility] Comment on above: Expected: 09/21/2024, Expires: Start: 09-21-2024 End: 12-21-2024 Basic metabolic 2000 panel - Serum or Plasma BASIC METABOLIC PANEL Lab Routine Gastroesophageal reflux disease with esophagitis without hemorrhage Vitamin D deficiency Expected: 09/21/2024, Expires: 12/21/2024 [facility] Comment on above: Expected: 09/21/2024, Expires: Start: 09-21-2024 End: 12-21-2024 Cobalamin (Vitamin B12) [Mass/volume] in Serum or Plasma VITAMIN B12 Lab Routine Medication management Expected: 09/21/2024, Expires: 12/21/2024 [facility] Comment on above: Expected: 09/21/2024, Expires: Start: 09-21-2024 End: 12-21-2024 Hemoglobin A1c in Blood HEMOGLOBIN A1C Lab Routine Elevated fasting blood sugar Expected: 09/21/2024, Expires: 12/21/2024 [facility] Comment on above: Expected: 09/21/2024, Expires: Start: 09-21-2024 End: 12-21-2024 LIPID PANEL, NONFASTING LIPID PANEL, NONFASTING Lab Routine Mixed hyperlipidemia Expected: 09/21/2024, Expires: 12/21/2024 [facility] Comment on above: Expected: 09/21/2024, Expires: Start: 09-21-2024 End: 12-21-2024 Magnesium [Mass/volume] in Serum or Plasma MAGNESIUM Lab Routine Medication management Expected: 09/21/2024, Expires: 12/21/2024 [facility] Comment on above: Expected: 09/21/2024, Expires: Start: 09-18-2024 End: 09-18-2024 ambulatory 09/18/2024 10:45 AM EDT OT/PT/Speech Visit [facility] [address] [place] [address] Xander Wu, PT [address] [facility] [place] [address] RT TKR [facility] DC 08/10 [facility] Comment on above: RT TKR C DC 08/10 Start: 09-15-2024 End: 09-15-2024 ambulatory 09/15/2024 11:00 AM EST OT/PT/Speech Visit [facility] [address] [place] [address] Xander Wu, PT [address] [facility] [place] [address] RT TKR [facility] DC 08/10 [facility] Comment on above: RT TKR C DC 08/10 Start: 09-11-2024 End: 09-11-2024 ambulatory 09/11/2024 10:45 AM EST OT/PT/Speech Visit [facility] [address] [place] [address] Xander Wu, PT [address] [facility] [place] [address] RT TKR [facility] DC 08/10 [facility] Comment on above: RT TKR C DC 08/10 Start: 09-08-2024 End: 09-08-2024 ambulatory 09/08/2024 9:15 AM EST OT/PT/Speech Visit [facility] [address] [place] [address] Lissa Lira, PT RT TKR [facility] DC 08/10 [facility] Comment on above: RT TKR [facility] DC 08/10 Start: 09-06-2024 Annual PCP Team Chronic Disease Visit Annual PCP Team Chronic Disease Visit [facility] Start: 09-04-2024 End: 09-04-2024 ambulatory 09/04/2024 10:45 AM EST OT/PT/Speech Visit [facility] [address] [place] [address] Xander Wu, PT [address] [facility] [place] [id number] RT TKR [facility] DC 08/10 [facility] Comment on above: RT TKR [facility] DC 08/10 Start: 09-04-2024 End: 09-04-2024 Patient encounter procedure 09/04/2024 9:45 AM EST Office Visit Orthopaedics [address] [place] [address] Bryson Dhillon MD [address] [place] [address] Post op robotic assisted right TKA [facility]opa[facility] Comment on above: Post op robotic assisted right TKA Start: 09-03-2024 Annual PCP Team Chronic Disease Visit Annual PCP Team Chronic Disease Visit [facility] Start: 09-03-2024 Covid-19 Vaccine ( season) Covid-19 Vaccine () [facility] Comment on above: Postponed from 03/12/2023 (Declined at t his time) Start: 08-31-2024 End: 08-31-2024 ambulatory 08/31/2024 3:45 PM EST OT/PT/Speech Visit [facility] [address] [place] [address] Xander Wu, PT [address] [facility] [place] [id number] RT TKR [facility] DC 08/10 [facility] Comment on above: RT TKR [facility] DC 08/10 Start: 08-28-2024 End: 08-28-2024 ambulatory 08/28/2024 3:30 PM EST OT/PT/Speech Visit [facility] [address] [place] [address] O'Lissa Hanna, PT RT TKR [facility] DC 08/10 [facility] Comment on above: RT TKR [facility] DC 08/10 Start: 08-21-2024 End: 08-21-2024 ambulatory 08/21/2024 3:30 PM EST OT/PT/Speech Visit [facility] [address] [place] [address] Lissa Lira, PT RT TKR [facility] DC 08/10 [facility] Comment on above: RT TKR [facility] DC 08/10 Start: 08-17-2024 End: 08-17-2024 Patient encounter procedure 08/17/2024 12:45 PM EST Office Visit Pulmonary Medicine [address] [place] [address] Lorenza Reza MD [address] [place] [address] 6 mo follow up Pulmonary Medicine Comment on above: 6 mo follow up Start: 08-14-2024 End: 08-14-2024 ambulatory 08/14/2024 10:00 AM EST OT/PT/Speech Visit [facility] [address] [place] [address] Xander Wu, PT [address] [place] [address] RT TKR [facility] DC 08/10 [facility] Comment on above: RT TKR [facility] DC 08/10 Start: 08-07-2024 End: 08-07-2024 Patient encounter procedure Orthopaedics Comment on above: Post op robotic assisted right TKA Xray Start: 07-26-2024 End: 07-26-2024 Admission to same day surgery center 07/26/2024 8:30 AM EST - 07/26/2024 11:21 AM EST Surgery [facility] Surgery [address] [place] [id number] Bryson Dhillon MD [address] [place] [address] ROBOTIC ASSISTED TOTAL KNEE ARTHROPLASTY [facility] Surgery Comment on above: ROBOTIC ASSISTED TOTAL KNEE ARTHROPLASTY Start: 07-26-2024 End: 07-26-2024 Arthrp kne condyle&platu medial&lat compartments ROBOTIC ASSISTED TOTAL KNEE ARTHROPLASTY Primary osteoarthritis of right knee 07/26/2024 8:30 AM EST ME OR Start: 07-26-2024 Subsequent hospital visit by physician 07/26/2024 8:30 AM EST Hospital Encounter [facility] Surgery [address] [place] [address] Bryson Dhillon MD [address] [place] [address] Primary osteoarthritis of right knee [M17.11] [facility] Surgery Comment on above: Primary osteoarthritis of right knee [M1 7.11] Start: 07-16-2024 Screening for malignant neoplasm of breast Mammogram Screening [facility] Start: 07-12-2024 Advance Directive Discussion Advance Directive Discussion [facility] Start: 07-07-2024 Subsequent hospital visit by physician 07/07/2024 1:45 PM EST Hospital Encounter Cardiology Lab [address] [place] [address] Abnormal electrocardiogram [R94.31] Cardiology Lab Comment on above: Abnormal electrocardiogram [R94.31] Start: 07-07-2024 End: 07-07-2024 Patient encounter procedure Molecular Imaging Comment on above: NM CARDIAC PERF STRESS/PHARM Start: 06-30-2024 End: 07-30-2025 NM Heart Perfusion W stress and W radionuclide IV NM CARDIAC PERF STRESS/PHARM Radiology Routine Abnormal electrocardiogram Expected: 06/30/2024, Expires: 07/30/2025 [facility] Comment on above: Expected: 06/30/2024, Expires: Start: 06-30-2024 End: 06-30-2024 Anesthesia consultation 06/30/2024 9:20 AM EST PAT Pre Anesthesia [address] [place] [address] 1, Pacc [facility] [address] [place] [address] ROBOTIC ASSISTED TOTAL KNEE ARTHROPLASTY [51229] - Knee - Right Pre Anesthesia Comment on above: ROBOTIC ASSISTED TOTAL KNEE ARTHROPLASTY [17267] - Knee - Right Start: 06-23-2024 End: 06-23-2024 Patient encounter procedure 06/23/2024 9:00 AM EST Appointment Radiology [address] [place] [address] CT KNEE WO IVCON RIGHT Radiology Comment on above: CT KNEE WO IVCON RIGHT Start: 06-19-2024 End: 06-19-2024 Patient encounter procedure 06/19/2024 9:00 AM EST Office Visit Orthopaedics [address] [place] [address] Rebekah Eduardo PA-C [address] [place] [address] follow up after MRI Orthopaedics Comment on above: follow up after MRI Start: 06-12-2024 End: 06-12-2024 Patient encounter procedure 06/12/2024 2:00 PM EST Office Visit Orthopaedics [address] [place] [address] Bryson Dhillon MD [address] [place] [address] Discuss Right TKA Orthopaedics Comment on above: Discuss Right TKA Start: 05-30-2024 End: 05-30-2024 Patient encounter procedure 05/30/2024 12:00 PM EST Appointment Radiology [address] [facility] [address] [place], [place] [id number] Primary osteoarthritis of right knee [M17.11] Radiology Comment on above: Primary osteoarthritis of right knee [M1 7.11] Start: 05-06-2024 DIABETES SCREEN DIABETES SCREEN [facility] Start: 04-25-2024 End: 04-25-2024 Patient encounter procedure 04/25/2024 8:30 AM EDT Office Visit Vascular Surgery [address] [place], [place] [id number] Lidya Pena, DO [address] [place] [address] 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] Vascular Surgery Comment on above: 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] Start: 04-13-2024 End: 04-13-2024 Patient encounter procedure 04/13/2024 9:00 AM EDT Office Visit Vasculary Surgery [address] [facility], [place] [id number] Bilateral carotid artery stenosis [I65.23] Vasculary Surgery Comment on above: Bilateral carotid artery stenosis [I65.2 3] Start: 04-06-2024 Annual PCP Team Chronic Disease Visit Annual PCP Team Chronic Disease Visit [facility] Start: 03-24-2024 End: 03-24-2024 Patient encounter procedure 03/24/2024 10:00 AM EDT Office Visit [facility] [address] [facility] [place] [address] Jaylin Combs PA-C [address] [facility] [place] [place] [id number] Medicare wellness [facility] Comment on above: Medicare wellness Start: 03-12-2024 Covid-19 Vaccine ( season) Covid-19 Vaccine () [facility] Start: 03-03-2024 ANNUAL PCP TEAM CHRONIC DISEASE VISIT ANNUAL PCP TEAM CHRONIC DISEASE VISIT [facility] Start: 03-03-2024 End: 06-02-2024 Comprehensive metabolic 2000 panel - Serum or Plasma COMP METABOLIC PANEL Lab Routine Elevated fasting blood sugar Expected: 03/03/2024, Expires: 06/02/2024 [facility] Work Phone: Comment on above: Expected: 03/03/2024, Expires: Start: 03-03-2024 End: 06-02-2024 Hemoglobin A1c in Blood HGB A1C Lab Routine Elevated fasting blood sugar Expected: 03/03/2024, Expires: 06/02/2024 [facility] Work Phone: Comment on above: Expected: 03/03/2024, Expires: Start: 03-03-2024 End: 06-02-2024 LIPID PANEL, NONFASTING LIPID PANEL, NONFASTING Lab Routine Mixed hyperlipidemia Expected: 03/03/2024, Expires: 06/02/2024 [facility] Work Phone: Comment on above: Expected: 03/03/2024, Expires: Start: 03-03-2024 End: 03-03-2024 Patient encounter procedure [facility] Comment on above: Medicare Wellness Rt knee Rt leg pain, below k nee Right knee pain Start: 02-15-2024 End: 05-16-2024 IgE [Units/volume] in Serum or Plasma [facility] Work Phone: Comment on above: Expected: 02/15/2024, Expires: Start: 02-15-2024 End: 02-15-2024 Patient encounter procedure 02/15/2024 11:00 AM EDT Office Visit Pulmonary Medicine [address] [place] [address] Lorenza Reza MD [address] [place] [id number] Persistent cough [R05.3]; Mild persistent asthma without complication [J45.30] Pulmonary Medicine Comment on above: Persistent cough [R05.3]; Mild persisten t asthma without complication [J45.30] Start: 02-15-2024 End: 02-15-2024 ambulatory PULM LAB [facility] Comment on above: Persistent cough [R05.3]; Mild persisten t asthma without complication [J45.30] Start: 12-02-2023 End: 03-02-2024 25-hydroxyvitamin D3 [Mass/volume] in Serum or Plasma VITAMIN D 25 HYDROXY Lab Routine Vitamin D deficiency Expected: 12/02/2023, Expires: 03/02/2024 [facility] Work Phone: Comment on above: Expected: 12/02/2023, Expires: Start: 10-20-2023 ANNUAL PCP TEAM CHRONIC DISEASE VISIT ANNUAL PCP TEAM CHRONIC DISEASE VISIT [facility] Start: 09-03-2023 End: 11-03-2023 25-hydroxyvitamin D3 [Mass/volume] in Serum or Plasma VITAMIN D 25 HYDROXY Lab Routine Senile osteoporosis Expected: 09/03/2023, Expires: 11/03/2023 [facility] Work Phone: Comment on above: Expected: 09/03/2023, Expires: Start: 09-03-2023 End: 11-03-2023 Basic metabolic 2000 panel - Serum or Plasma BASIC METABOLIC PNL Lab Routine Senile osteoporosis Expected: 09/03/2023, Expires: 11/03/2023 [facility] Work Phone: Comment on above: Expected: 09/03/2023, Expires: Start: 09-03-2023 End: 11-03-2023 Hemoglobin A1c in Blood HGB A1C Lab Routine Elevated fasting blood sugar Expected: 09/03/2023, Expires: 11/03/2023 [facility] Work Phone: Comment on above: Expected: 09/03/2023, Expires: Start: 09-03-2023 End: 11-03-2023 LIPID PANEL, NONFASTING LIPID PANEL, NONFASTING Lab Routine Mixed hyperlipidemia Expected: 09/03/2023, Expires: 11/03/2023 [facility] Work Phone: Comment on above: Expected: 09/03/2023, Expires: Start: 08-19-2023 ANNUAL PCP TEAM CHRONIC DISEASE VISIT ANNUAL PCP TEAM CHRONIC DISEASE VISIT [facility] Start: 07-14-2023 Mammography [facility] Start: 07-14-2023 Screening for malignant neoplasm of breast Mammogram Screening [facility] Start: 07-12-2023 Advance Directive Discussion Advance Directive Discussion [facility] Start: 03-12-2023 Covid-19 Vaccine () Covid-19 Vaccine () [facility] Start: 02-12-2023 ANNUAL PCP TEAM CHRONIC DISEASE VISIT ANNUAL PCP TEAM CHRONIC DISEASE VISIT [facility] Start: 02-12-2023 COVID-19 VACCINE (3 - Booster for Moderna series) COVID-19 VACCINE (3 - Booster for Moderna series) [facility] Comment on above: Postponed from 03/11/2021 (Declined at t his time) Postponed from 12/04 (Declined at this time) Start: 02-12-2023 COVID-19 VACCINE (3 - Moderna series) COVID-19 VACCINE (3 - Moderna series) [facility] Comment on above: Postponed from 12/04/2020 (Declined at t his time) Start: 02-12-2023 Urine microalbumin profile DTAP,TDAP,TD (1 - Tdap) [facility] Comment on above: Postponed from 1969 (Insurance Cov erage) Start: 02-09-2023 End: 04-11-2023 Comprehensive metabolic 2000 panel - Serum or Plasma COMP METABOLIC PANEL Lab Routine Mixed hyperlipidemia Elevated fasting blood sugar Expected: 02/09/2023, Expires: 04/11/2023 [facility] Work Phone: Comment on above: Expected: 02/09/2023, Expires: 3 Start: 02-09-2023 End: 04-11-2023 Hemoglobin A1c in Blood HGB A1C Lab Routine Elevated fasting blood sugar Expected: 02/09/2023, Expires: 04/11/2023 [facility] Work Phone: Comment on above: Expected: 02/09/2023, Expires: 3 Start: 02-09-2023 End: 04-11-2023 LIPID PANEL, NONFASTING LIPID PANEL, NONFASTING Lab Routine Mixed hyperlipidemia Expected: 02/09/2023, Expires: 04/11/2023 [facility] Work Phone: Comment on above: Expected: 02/09/2023, Expires: 3 Start: 02-09-2023 End: 04-11-2023 Thyrotropin [Units/volume] in Serum or Plasma TSH BLD Lab Routine Essential tremor Expected: 02/09/2023, Expires: 04/11/2023 [facility] Work Phone: Comment on above: Expected: 02/09/2023, Expires: 3 Start: 10-13-2022 ANNUAL PCP TEAM CHRONIC DISEASE VISIT ANNUAL PCP TEAM CHRONIC DISEASE VISIT [facility] Start: 07-31-2022 End: 09-30-2022 Hemoglobin A1c in Blood HGB A1C Lab Routine Elevated fasting blood sugar Expected: 07/31/2022, Expires: 09/30/2022 [facility] Work Phone: Comment on above: Expected: 07/31/2022, Expires: 3 Start: 07-31-2022 End: 09-30-2022 LIPID PANEL, NONFASTING LIPID PANEL, NONFASTING Lab Routine Mixed hyperlipidemia Expected: 07/31/2022, Expires: 09/30/2022 [facility] Work Phone: Comment on above: Expected: 07/31/2022, Expires: 3 Start: 07-12-2022 ADVANCE DIRECTIVE DISCUSSION ADVANCE DIRECTIVE DISCUSSION [facility] Start: 06-30-2022 Mammography MAMMOGRAM [facility] Start: 07-12-2021 ADVANCE DIRECTIVE DISCUSSION ADVANCE DIRECTIVE DISCUSSION [facility] Start: 03-11-2021 COVID-19 VACCINE (3 - Booster for Moderna series) COVID-19 VACCINE (3 - Booster for Moderna series) [facility] Start: 12-04-2020 COVID-19 VACCINE (3 - Moderna series) COVID-19 VACCINE (3 - Moderna series) [facility] Start: 2010 RSV Vaccine (1 - 1-dose 60+ series) RSV Vaccine (1 - 1-dose 60+ series) [facility] Start: 2010 RSV Vaccine (1 - Risk 60-74 years 1-dose series) RSV Vaccine (1 - Risk 60-74 years 1-dose series) [facility] Start: 1995 COLOGUARD (FIT-DNA) COLOGUARD (FIT-DNA) [facility] Start: [address] COLONOGRAPHY [facility] Start: 1995 FECAL OCCULT BLOOD FECAL OCCULT BLOOD [facility] Start: 1995 Screening for malignant neoplasm of colon [facility] Start: 1995 SIGMOIDOSCOPY SIGMOIDOSCOPY [facility] Start: 1969 Urine microalbumin profile [facility] End: 04-01-2024 DXA-AXIAL SKELETON DXA-AXIAL SKELETON Radiology Routine Asymptomatic postmenopausal status Senile osteoporosis 1 Occurrences starting 03/03/2023 until 04/01/2024 [facility] Work Phone: Comment on above: 1 Occurrences starting 03/03/2023 until 04/01/2024 End: 06-30-2025 ECG COMPLETE ECG COMPLETE ECG Routine Pre-operative examination 1 Occurrences starting 06/30/2024 until 06/30/2025 [facility] Work Phone: Comment on above: 1 Occurrences starting 06/30/2024 until 06/30/2025 Influenza virus A an d B RNA and SARS-CoV-2 (COVID-19) N gene panel - Respiratory specimen by SOFY with probe detection COVID & INFLUENZA A/B NAAT, ROUTINE Microbiology Routine URI, acute 09/03/2023 11:58 AM EST [facility] [employer] Work Phone: KALLI SCREENING KALLI SCREENING Ra diology Routine Visit for screening mammogram Ordered: 06/22/2023 [facility] Work Phone: Comment on above: Ordered: 06/22/2023 End: 10-30-2024 MG Breast Screening KALLI SCREENING Radiology Routine Encounter for gynecological examination with abnormal finding Encounter for screening mammogram for malignant neoplasm of breast 1 Occurrences starting 10/01/2023 until 10/30/2024 [facility] Work Phone: Comment on above: 1 Occurrences starting 10/01/2023 until 10/30/2024 MG Breast Screening KALLI SCREENIN G Radiology Routine Encounter for gynecological examination with abnormal finding Encounter for screening mammogram for malignant neoplasm of breast 10/03/2024 2:56 PM EDT [facility] Work Phone: End: 06-14-2025 MR Knee - right WO contrast MRI KNEE WO IVCON RIGHT Radiology Routine Other secondary osteoarthritis of right knee 1 Occurrences starting 05/15/2024 until 06/14/2025 [facility] Work Phone: Comment on above: 1 Occurrences starting 05/15/2024 until 06/14/2025 MR Knee - right WO contrast MRI KNEE WO IVCON RIGHT Radiology Routine Other secondary osteoarthritis of right knee 05/17/2024 4:58 PM EST [facility] Work Phone: Patient Education ED Deep Vein T hrombosis (DVT) [facility] Work Phone: Patient referral [facility] Work Phone: End: 03-24-2025 US Carotid arteries - bilateral US CAROTID ARTERIES [facility] Vascular Lab Routine Bilateral carotid artery stenosis 1 Occurrences starting 03/24/2024 until 03/24/2025 [facility] Work Phone: Comment on above: 1 Occurrences starting 03/24/2024 until 03/24/2025 End: 02-12-2023 US CAROTID ARTERIES [facility] US CAROTID ARTERIES [facility] Vascular Lab Routine Bilateral carotid artery stenosis 1 Occurrences starting 02/12/2022 until 02/12/2023 [facility] Work Phone: Comment on above: 1 Occurrences starting 02/12/2022 until 02/12/2023 End: 02-21-2026 XR Ankle - left AP and Lateral and oblique XR ANKLE GENERAL 3V AP/LAT/OBL LEFT Radiology Routine Chronic pain of left ankle 1 Occurrences starting 01/22/2025 until 02/21/2026 [facility] Work Phone: Comment on above: 1 Occurrences starting 01/22/2025 until 02/21/2026 XR Ankle - left AP a nd Lateral and oblique XR ANKLE GENERAL 3V AP/LAT/OBL LEFT Radiology Routine Chronic pain of left ankle 01/22/2025 1:10 PM EDT [facility] End: 10-18-2023 XR FOOT GENERAL 3V AP/LAT/OBL LEFT XR FOOT GENERAL 3V AP/LAT/OBL LEFT Radiology Routine Foreign body (FB) in soft tissue Acquired hallux valgus of left foot 1 Occurrences starting 09/18/2022 until 10/18/2023 [facility] Work Phone: Comment on above: 1 Occurrences starting 09/18/2022 until 10/18/2023 XR FOOT GENERAL 3V AP/LAT/OBL LEFT XR FOOT GENERAL 3V AP/LAT/OBL LEFT Radiology Routine Foreign body (FB) in soft tissue Acquired hallux valgus of left foot 09/18/2022 10:30 AM EST [facility] Work Phone: End: 09-03-2025 XR Knee AP and Lateral and Merchants XR KNEE POST OP 3V AP/LAT/MERCHANT RIGHT Radiology Routine S/P total knee arthroplasty, right 1 Occurrences starting 08/04/2024 until 09/03/2025 [facility] Work Phone: Comment on above: 1 Occurrences starting 08/04/2024 until 09/03/2025 XR Knee AP and Later al and Merchants XR KNEE POST OP 3V AP/LAT/MERCHANT RIGHT Radiology Routine S/P total knee arthroplasty, right 08/07/2024 10:18 AM EST [facility] Work Phone: End: 03-25-2025 XR Lower extremity - bilateral AP W standing XR LEG FRONTAL HIP TO ANKLE MECHANICAL AXIS Radiology Routine Right knee pain, unspecified chronicity 1 Occurrences starting 02/24/2024 until 03/25/2025 [facility] Work Phone: Comment on above: 1 Occurrences starting 02/24/2024 until 03/25/2025 [facility] Immunizations Immunization Date Immunization Notes Care Provider Sallie fernandez 04-29-2021 zoster vaccine recombinant Jaylin Combs PA-C Work Phone: [facility] 02-24-2021 zoster vaccine recombinant Jaylin Combs PA-C Work Phone: [facility] 10-09-2020 COVID-19 vaccine, fu ll dose (MODERNA) Jaylin Combs PA-C Work Phone: [facility] 09-11-2020 COVID-19 vaccine, fu ll dose (MODERNA) Jaylin Combs PA-C Work Phone: [facility] 01-21-2017 pneumococcal polysaccharide vaccine, 23 valent Jaylin Combs PA-C Work Phone: [facility] 12-06-2015 pneumococcal conjuga te vaccine, 13 valent Jaylin Combs PA-C Work Phone: [facility] 02-23-2014 zoster vaccine, live Jaylin Combs PA-C Work Phone: [facility] Work Phone: Payers Date Payer Category Payer Self-pay [id number] 2015 Private Health Insurance [employer] [id number] 2015 Unknown [employer] [id number] 2015-Present [phone] [address] [place] [address] Indemnity [id number] 2015 Unknown [employer] [id number] 2015-Present [phone] [address] [place] [address] Indemnity [id number] 2015 Unknown [id number] 2013 Medicare MEDICARE MEDICAR E A AND B [id number] 2013-Present [phone] [place] [address] Medicare [id number] 2013 Medicare [id number] 2003 Medicare [id number] Unknown [id number] Unknown [id number] Unknown [id number] Social History Date Type Detail Facility Start: 09-27-2014 End: 02-12-2025 Tobacco smoking status NHIS Never smoked tobacco [facility] Work Phone: Start: 09-22-2021 End: 01-22-2025 Alcohol intake Current non-drinker of alcohol (finding) [facility] Start: 09-27-2014 End: 08-19-2022 Tobacco Comment Father smoked occasionally in childhood home. Spouse smoked in home until 4 years ago. [facility] Start: 1950 Sex Assigned At Not on file [facility] Start: 03-12-2021 End: 04-09-2022 Exposure to SARS-CoV-2 (event) Not sure [facility] Start: 10-16-2020 End: 12-16-2021 Tobacco smoking status NHIS Unknown if ever smoked [facility] Start: 10-16-2020 None [facility] Start: 10-16-2020 Spouse/ Signif icant Other [facility] Start: 05-19-2019 Non-smoker [facility] Start: 1950 Sex Assigned At Female [facility] Start: 09-27-2014 End: 10-01-2023 Tobacco use and exposure Smokeless tobacco non-user [facility] Work Phone: Start: 10-19-2022 End: 08-23-2023 History of Social function [facility] Work Phone: Start: 10-19-2022 End: 03-03-2023 Tobacco use panel [facility] Work Phone: Adult Depression Screening Assessment 4 [facility] Work Phone: Do you feel stress - tense, restless, nervous, or anxious, or unable to sleep at night because your mind is troubled all the time - these days [OSQ] Rather much [facility] Has the [employer], gas, oil, or water [employer] threatened to shut off services in your home in past 12Mo No [facility] (I/We) worried whether (my/our) food would run out before (I/we) got money to buy more. Never true [facility] NEGATED: Highlighted rowStart: HUGO History of tobacco use Passive smoker [facility] Medical Equipment Procedure Code Equipment Code Equipment Origin al Text Equipment Identifier Dates Arthroscopy, knee, with Subchondroplasty SCP Knee Kit FDA Start: 12-22-2021 Arthroscopy, knee, with Subchondroplasty SCP Knee Kit FDA Start: 12-22-2021 Retroarc Bladder Sling - [id number] Start: 09-03-2015 Comment on above: Description: RetroAr c Sling Stent Neeta Oneal s Stent 16mm Nitinol 120mm 100mm Endoprosthesis Catheter - [id number] Start: 04-02-2020 Cement Simplex P Bone Radiopaque Full Dose Sterile - [id number] Start: 07-26-2024 Cement Simplex P Bone Radiopaque Full Dose Sterile - [id number] Start: 07-26-2024 Component Triath julee 3 Femoral Cruciate Retain Cemented Knee Right - [id number] Start: 07-26-2024 Insert Triathlon 3 9mm Tibial Bearing Condylar Stabilize Sterile Knee - [id number] Start: 07-26-2024 Component Triath julee 29mm X3 9mm Patellar Asymmetric Knee - [id number] Start: 07-26-2024 Triathlon Cement ed [id number] X 50mm - [id number] Start: 07-26-2024 Baseplate Triath julee 3 [place] Cocr Tibial Total Stabilize Cemented Knee - [id number] Start: 07-26-2024 Goals Date Patient Goal Desired Activity /State Personal health goal Personal health goal Functional Status Date Assessment Result Facility 07-27-2024 Are you deaf, or do you have serious difficulty hearing No 07/27/2024 3:19 PM Uzma Ivy RN No [facility] 07-27-2024 Are you blind, or do you have serious difficulty seeing, even when wearing glasses No 07/27/2024 3:19 PM Uzma Ivy RN No [facility] 07-27-2024 Do you have serious difficulty walking or climbing stairs No 07/27/2024 3:19 PM Uzma Ivy RN No [facility] 07-27-2024 Do you have difficul ty dressing or bathing No 07/27/2024 3:19 PM Uzma Ivy RN No [facility] 07-27-2024 Because of a physica l, mental, or emotional condition, do you have difficulty doing errands alone such as visiting a physician's office or shopping No 07/27/2024 3:19 PM Uzma Ivy RN No [facility] Mental Status Date Assessment Result Facility 02-12-2025 Cognitive function Level Of Cons ciousness Awake;Alert;Appropriate [facility] Work Phone: 07-27-2024 Because of a physica l, mental, or emotional condition, do you have serious difficulty concentrating, remembering, or making decisions No 07/27/2024 3:19 PM Uzma Ivy RN No [facility] 12-22-2021 Cognitive function Voice/Name [facility] Work Phone: Clinical Notes 02-15-2019 to 02-12-2025 Note Date & Type Note Facility 02-12-2025 Discharge summary [facility] 02-12-2025 Discharge summary Note Date/Time February 12, 2025 3:30pm [facility] Medical Records Department [address] [place] [address] Emergency Department Summary 02/12/25 MR#: [id number] Acct: [id number] Name: NORA CAMARILLO Rep #:[id number] : 1950 74 From: Fidel Marte MD PCP: Dr. Scot Blank MD Status:REG ER Location: ED HPI History of Present Illness Chief Complaint: Other, Pain/Inj Detail of Chief Complaint: DVT left soleal vein Informant: patient Onset/Context/Timing Onset: - (Unknown) Context: - (Seen by Dr. Nunn and ordered venous duplex study) Timing: - (Swelling of the left ankle distal calf) Quality: Swelling Location: Left lower extremity Current Severity: Mild Maximum Severity: Mild Worsened by: Not think Relieved by: Nothing Associated Symptoms Associated Symptoms: No chest pain or shortness of breath Narrative Narrative: Patient is a 74-year-old woman. She denies history of cancer. She has no risk factors for DVT that she is aware of. She denies recent travel, surgery, immobilization. She denies chest pain, pain with breathing, dyspnea, dyspnea onexertion. She saw Dr. Nunn for the first time today and because of the swelling and discomfort he ordered a outpatient venous duplex study. There is no abnormality noted on the right side. There is a clot noted left soleus on the left. She is on no hormonal therapy. Prior similar symptoms: No Recent Illness/Hospitalization: No PFSH PFSH Medical History Wears glasses Depression Anxiety Ambulates with cane Arthritis High cholesterol Restless legs Blackout History of diverticulosis History of ulceration Gastric reflux Asthma Shortness of breath on exertion Leg cramps History of pain when walking History of stress test History of ganglion cyst Home Medications ?Medication ?Instructions ?Recorded ?Last Taken ?Type albuterol sulfate 90 mcg/actuation 2 puff inhalation Q 4H PRN PRN 03/02/16 Unknown History aerosol inhaler (Ventolin HFA) Shortness Of Breath cholecalciferol (vitamin D3) 25 1,000 unit PO DAILY vi tamin 05/19/19 Unknown History mcg (1,000 unit) tablet budesonide 0.25 mg/2 mL suspension 0.25 mg inhalation PRN PRN ASTHMA 12/16/21 Unknown History for nebulization pantoprazole 20 mg tablet,delayed 20 mg PO BID PRN Sto mach Upset 12/14/22 Unknown History release zolpidem 12.5 mg tablet,extended 12.5 mg PO QHS PRN In somnia 12/14/22 Unknown History release,multiphase (Ambien CR) aspirin 81 mg capsule 162 mg (2 x 81 mg) PO DAILY 21 12/18/22 Unknown Rx days #42 caps hydrocodone 5 mg-acetaminophen 300 1 tab PO Q6H PRN pa in 7 days #28 12/18/22 Unknown Rx mg tablet tabs hydrocodone-acetaminophen 5-325mg 1 tab PO Q8H PRN giancarlo n 7 days #21 12/18/22 Unknown Rx 5mg-325mg tabs Allergy/AdvReac Type Severity Reaction Status Date / Time estradiol (From Estrace) Allergy Itching Verified 02/12/25 14:44 oxycodone Allergy Itching Verified 02/12/25 14:44 Penicillins Allergy Itching Verified 02/12/25 14:44 prednisone Allergy Rash Verified 02/12/25 14:44 raloxifene (From Evista) Allergy Itching Verified 02/12/25 14:44 celecoxib (From Celebrex) AdvReac Nausea Verified 02/12/25 14:44 dicyclomine AdvReac Other Verified 02/12/25 14:44 fluoxetine (From Prozac) AdvReac Nausea Verified 02/12/25 14:44 fluticasone (From Advair AdvReac Other Verified 02/12/25 14:44 Diskus) hyoscyamine AdvReac Unknown Verified 02/12/25 14:44 meloxicam (From Mobic) AdvReac Nausea Verified 02/12/25 14:44 methylprednisolone (From AdvReac Other Verified 02/12/25 14:44 Medrol) morphine AdvReac Itching Verified 02/12/25 14:44 salmeterol (From Advair AdvReac Other Verified 02/12/25 14:44 Diskus) Surgical History History of arthroscopy of right knee Hx of arthroscopy of left knee History of cardiac catheterization Hx of tonsillectomy Hx of inguinal hernia repair Hx of umbilical hernia repair History of decompression of ulnar nerve Hx of hysterectomy History of laparoscopy History of carpal tunnel surgery of right wrist History of carpal tunnel surgery of left wrist Hx of bilateral cataract extraction Hx of colonoscopy History of Walter fundoplication Hx of bladder repair surgery History of esophagogastroduodenoscopy (EGD) Social History (Updated 02/12/25 @ 15:[address] Fidel Marte MD) household members: spouse Smoking Status: Never smoker ROS ROS ED Cardiovascular Cardiovascular: Denies chest pain, orthopnea, palpitations, paroxysmal nocturnaldyspnea or racing heartbeat Respiratory/Chest Respiratory/Chest: Denies cough, dyspnea, dyspnea on exertion, orthopnea or paroxysmal nocturnal dyspnea Musculoskeletal Musculoskeletal: Reports other Details: Swelling distal left leg and ankle Hematologic/Lymphatic Hematologic/Lymphatic: Reports systems reviewed and no addt'l complaints, exceptas documented; Denies easy bleeding or easy bruising EXAM Physical Exam Const Vital Signs: 02/12/25 14:43 Temperature 98.6 F Temperature Source Oral Pulse Rate 81 Respiratory Rate 16 Blood Pressure 185/84 H Blood Pressure Mean 117 Pulse Ox 98 Oxygen Delivery Method Room Air Positive well nourished and well developed General Appearance ED: well developed; Negative for cyanotic, diaphoretic or pallor HEENT Reports moist mucous membranes HEENT Narrative: Head is atraumatic and normocephalic. Ears normal. Eyes PERRL and EOMs intact bilaterally General Eye ED: Negative for pale conjunctiva or scleral icterus Neck no lymphadenopathy and no JVD Cardio regular rate and regular rhythm GI normal to inspection, nondistended, normoactive bowel sounds Extremity Negative for normal to inspection Extremity Narrative: There is swelling of the left distal leg. There are some discoloration of the distal calf. There is pain laterally. There is no pain or fullness in the popliteal fossa. PT and DP pulse are palpable. There is no tenderness along the abductor canal. Neuro oriented x3 and CN's II-XII intact bilaterally Psych mental status grossly normal Skin no rashes or lesions noted, no wounds and skin turgor normal General Skin Exam: elasticity normal; Negative for jaundice or pallor MDM MDM MDM Narrative Medical decision making narrative: Patient has a distal DVT. Since she does not have history of cancer she was given option of anticoagulant versus serial outpatient venous duplex study of the left lower extremity to determine if there is propagation. If this does propagate and involves the popliteal or femoral vein she will require anticoagulation. After explaining risk benefits plan is serial venous duplex study since she has no history of cancer. The laser technician also commented there is a hypoechoic nonvascular structure that is 1.35 x 0.46 cm left popliteal fossa. Discharge Plan Triage Chief Complaint: Other, Pain/Inj ED Provider: Fidel Marte Dx/Rx/DC Orders Clinical Impression: DVT of lower limb, acute, Hyperlipidemia, Hx of upper gastrointestinal hemorrhage Instructions: ED Deep Vein Thrombosis (DVT) Prescriptions: No Action albuterol sulfate [Ventolin HFA] 1 INHALER inhaler 2 puff inhalation Q4H PRN PRN (Reason: Shortness Of Breath) cholecalciferol (vitamin D3) 1,000 UNIT tablet 1,000 unit PO DAILY budesonide 0.25 mg/2 mL Suspension For Nebulization 0.25 mg INHALATION PRN PRN (Reason: ASTHMA) zolpidem [Ambien CR] 12.5 mg Tablet,Ext Release Multiphase 12.5 mg PO QHS PRN (Reason: Insomnia) pantoprazole 20 mg tablet,delayed release (DR/EC) 20 mg PO BID PRN (Reason: Stomach Upset) Patient Comments: Take 1 tablet by mouth twice daily as needed. hydrocodone-acetaminophen 5-300 mg tablet 1 tab PO Q6H PRN (Reason: pain) 7 Days Qty: 28 0RF aspirin 81 mg capsule 162 mg PO DAILY 21 Days Qty: 42 0RF hydrocodone-acetaminophen 5-325 mg tablet 1 tab PO Q8H PRN (Reason: pain) 7 Days Qty: 21 0RF Other Ambulatory Orders: Venous Duplex US, Unilateral (Stat) Facility: [facility] - Location: [facility] Ordered By: Dr. Fidel Marte Primary Care Provider: Scot Blank Referrals: Scot Blank MD [Primary Care Provider] - Activity Restrictions/Additional Instructions: 1. If your leg becomes much larger in size return to the emergency department 2. If you develop chest pain or shortness of breath abruptly return to the emergency department 3. There was also noted to be a nonvascular structure behind your knee. This will need to be followed by Dr. Nunn. Print Language: Maltese Disposition Disposition: Home, Self Care What to do if you have Problems For any increased pain, shortness of breath, bleeding, nausea or vomiting, chestpain, or any unexpected problems, contact your Primary Care Provider. Call [facility] ([phone]) or report to the closest Emergency Room. Call 911 if necessary. 02/12/25 1530 <Electronically signed by Fidel Marte MD> Cosigner Signature (if applicable): CC: Dr. Scot Blank MD ~ Signed [facility] Work Phone: 1(163) 846-208607-28-2025 Telephone encounter Note* Telephone Encounter - Qasim Patterson LPN - 02/05/2025 2:50 PM EDT Pt notified of same. Qasim Patterson LPN [facility]07-28-2025 Miscellaneous Notes* Telephone Encounter - Qasim Patterson LPN - 02/05/2025 2:50 PM EDT Pt notified of same. Qasim Patterson LPN * Telephone Encounter - Jaylin Combs PA-C - 02/05/2025 2:41 PM EDT I have listed that we were referring to the [facility] here in [place]. I'm assuming that the consult automatically gets sent internally as well, which is probably why she got the call. Itwasn't directed by myself. Jaylin Combs PA-C * Telephone Encounter - Haritha Pascual MA - 02/05/2025 2:38 PM EDT Orthopedic office did not call patient. * Telephone Encounter - Kia Andujar LPN - 02/05/2025 2:28 PM EDT Patient called. Verified name and date of . Patient states she received a call from orthopaedics but states she is uncertain why they'd be calling her. No encounter placed. She doesn't have appointment with orthopaedics until July 2025 but did have appointment with Jaylin Combs PA-C recently who referred her to podiatry clinic. Referral noted. Patient does not want to see podiatry at [facility] but sees a provider in the community. Kia Andujar LPN [facility] Telephone encounter Note * Telephone Encounter - Jaylin Combs PA-C - 02/05/2025 2:41 PM EDT I have listed that we were referring to the foot [facility] ankle center here in [place]. I'm assuming that the consult automatically gets sent internally as well, which is probably why she got the call. Itwasn't directed by myself. Jaylin Combs PA-C [facility]07-28-2025 Telephone encounter Note* Telephone Encounter - Haritha Pascual MA - 02/05/2025 2:38 PM EDT Orthopedic office did not call patient. [facility]07-28-2025 Telephone encounter Note* Telephone Encounter - Kia Andujar LPN - 02/05/2025 2:28 PM EDT Patient called. Verified name and date of . Patient states she received a call from orthopaedics but states she is uncertain why they'd be calling her. No encounter placed. She doesn't have appointment with orthopaedics until July 2025 but did have appointment with Jaylin Combs PA-C recently who referred her to podiatry clinic. Referral noted. Patient does not want to see podiatry at [facility] but sees a provider in the community. Kia Andujar LPN [facility]07-21-2025 Telephone encounter Note* Telephone Encounter - Qasim Patterson LPN - 01/29/2025 9:38 AM EDT Patient notified of results and provider's instructions. Patient verbalizes understanding. Qasim Patterson LPN [facility]07-21-2025 Miscellaneous Notes* Telephone Encounter - Qasim Patterson LPN - 01/29/2025 9:38 AM EDT Patient notified of results and provider's instructions. Patient verbalizes understanding. Qasim Patterson LPN * Telephone Encounter - Jaylin Combs PA-C - 01/28/2025 9:17 PM EDT Let patient know that overall xray of ankle is normal. She does have a bone spur. Continue with seeing podiatry [facility] Telephone encounter Note * Telephone Encounter - Jaylin Combs PA-C - 01/28/2025 9:17 PM EDT Let patient know that overall xray of ankle is normal. She does have a bone spur. Continue with seeing podiatry [facility]07-14-2025 History of Present illness Narrative* Matheus Tirado, RT(R) - 01/22/2025 12:30 PM EDT Radiology Service Progress Note PATIENT NAME: Nora Camarillo DATE OF SERVICE: January 22, 2025 TIME: 1:05 PM PATIENT IDENTITY VERIFICATION COMPLETED USING TWO (2) IDENTIFIERS: Name and Date of confirmedby patient verbally. FALL SCREENING: Has the patient had 2 falls in the last year or 1 fall with injury or currently using an Ambulatory Assistive Device (Walker, Cane, Wheelchair, Crutches, etc.)? No PATIENT GENDER DATA: Assigned female at . status: : No status:NO. PATIENT RELEVANT IMPLANT DATA REVIEWED: Not Applicable PATIENT PRESENTS WITH AN IMPLANTABLE OR ATTACHED RUG DRY ROOM ATTENDANT: No RADIOLOGY DEPARTMENT: General X-ray: Exam(s) Completed: Lower Extremity X- Ray(s): Ankle, Left and Wt. Bearing PERIPHERAL IV DATA: Not applicable SIGNED BY: RT Sunny(R) January 22, 2025 1:05 PM documented in [facility]Wood [facility]25 NoteHNO ID: [id number] Author: MATHUES TIRADO RT(R) Service: ? Author Type: Technologist Type: Progress Notes Filed: 01/22/2025 13:10 Note Text: Radiology Service Progress Note PATIENT NAME: Nora Camarillo DATE OF SERVICE: January 22, 2025 TIME: 1:05 PM PATIENT IDENTITY VERIFICATION COMPLETED USING TWO (2) IDENTIFIERS: Name and Date of confirmed by patient verbally. FALL SCREENING: Has the patient had 2 falls in the last year or 1 fall with injury or currently using an Ambulatory Assistive Device (Walker, Cane, Wheelchair, Crutches, etc.)? No PATIENT GENDER DATA: Assigned female at . status: : No status: NO. PATIENT RELEVANT IMPLANT DATA REVIEWED: Not Applicable PATIENT PRESENTS WITH AN IMPLANTABLE OR ATTACHED RUG DRY ROOM ATTENDANT: No RADIOLOGY DEPARTMENT: General X-ray: Exam(s) Completed: Lower Extremity X-Ray(s): Ankle, Left and Wt. Bearing PERIPHERAL IV DATA: Not applicable SIGNED BY: RT Sunny(R) January 22, 2025 1:05 [facility]07-14-2025 NoteHNO ID: [id number] Author: JAYLIN COMBS PA-C Service: ? Author Type: Physician Professional Application Designer Type: Progress Notes Filed: 01/22/2025 13:00 Note Text: Chief Complaint Patient presents with: left foot pain: and edema x 6-7 months HPI Nora Camarillo is a 74 year old female who presents here today for Above Complaints.. Left Ankle Pain and Swelling: - Notes left ankle swelling for past 6-7 months - Swelling now extends to the heel, causing discomfort when wearing shoes. - Pain exacerbated by certain positions during sleep; reports a sensation of the ankle coming out of place and needing to stand to alleviate discomfort. - Describes a popping sensation with certain movements in bed, causing pain to radiate up the leg. - Denies any known trauma or injury to the ankle. - Has a boot at home from a previous foot procedure 2 years ago, where a wire [facility]. Past medical history, appointments, medications, allergies reviewed. Previous Medical History PAST MEDICAL HISTORY Diagnosis Date Abnormal computed tomography angiography (CTA) 01/03/2019 right upper ICA with abnormality, consult to vascular 12/2018 Acute meniscal tear of left knee 04/13/2019 Advance directive discussed with patient 02/12/2022 Discussed 02/2022 Allergies Anxiety and depression 09/27/2020 Arthritis of left knee 02/19/2019 Bilateral carotid artery stenosis 01/03/2019 US: 12/2018 20-40% tatyana Chronic bilateral low back pain 01/01/2016 Seen [facility] Chronic pain of both ankles 09/27/2020 Chronic pain of left knee 09/27/2020 Chronic pain of right knee 09/30/2021 Sees [facility] Current use of proton pump inhibitor 08/25/2019 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 rojas Hiatal hernia 07/22/2016 Left hip pain 09/14/[address] [facility] [address] Xander Martinez Left lateral abdominal pain 02/15/2019 Mid quadrant, chronic and paroxysmal. 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 Linn Mixed hyperlipidemia 11/20/2009 Mixed incontinence 06/27/[address] Queen Obesity, Class I, BMI 30-34.9 06/15/2019 Palpitations 08/25/2019 Primary insomnia 07/22/2016 PUD (peptic ulcer disease) 03/13/2016 Hx of ulcer 2018 and two again in 10/2020. No NSAID's (aspirin held 10/2020) Second hand smoke exposure 11/08/2023 Senile osteoporosis 01/05/2006 Clinical Team Manager following (Dr. Dobson) Simple cyst of breast 11/2009 Left retroareolar Unspecified constipation Previous Surgical History PAST SURGICAL HISTORY Procedure Laterality Date APPENDECTOMY ARTHROSCOPY KNEE DIAGNOSTIC W/WO SYNOVIAL BX SPX Right 2021 meniscus repair, cementing - Dr. Cunha ARTHRS KNE SURG W/MENISCECTOMY MED/LAT W/SHVG Left 06/23/2019 Left knee medial and lateral menisectomies, medial and PF chondroplasties BREAST BIOPSY Left 2002 CARDIAC CATH 2004 COLONOSCOPY FLX DX W/COLLJ SPEC WHEN PFRMD 05/22/2019 Colonoscopy COLPOPEXY VAGINAL EXTRAPERITONEAL APPROACH 02/2013 repair of rectal and vaginal prolapse COLSC FLX W/RMVL OF TUMOR POLYP LESION SNARE TQ 01/28/2016 repeat 10 yrs EGD 10/16/2020 2 cratered gastric ulcers; Dr. Guillermo EGD TRANSORAL BIOPSY SINGLE/MULTIPLE 01/24/2007 EGD TRANSORAL BIOPSY SINGLE/MULTIPLE 01/28/2016 ESOPHAGEAL MOTILITY STUDY W/INTERPANDRPT 04/29/2016 ESOPHAGOGASTRODUODENOSCOPY TRANSORAL DIAGNOSTIC 05/22/2005 EGD H-pylori negative ESOPHAGOGASTRODUODENOSCOPY TRANSORAL DIAGNOSTIC 03/02/2016 ESOPHAGOGASTRODUODENOSCOPY TRANSORAL DIAGNOSTIC 05/22/2019 EGD ESOPHAGOGASTRODUODENOSCOPY TRANSORAL DIAGNOSTIC 12/10/2020 healed ulcers; fundoplication intact; Dr. Guillermo GASTROESOPHAG REFLX TEST W/TELEMTRY PH ELTRD 03/02/2016 48 hour ph probe HERNIA REPAIR HX 1970 AND 1973 herniorrhaphy, umbilical, right inguinal . PAST SURGICAL HISTORY OF 01/2005 heart catheterization PAST SURGICAL HISTORY OF 11/03/2004 left breast bx PAST SURGICAL HISTORY OF D AND C, multiple PAST SURGICAL HISTORY OF Right 1990 carpal tunnel release PAST SURGICAL HISTORY OF Right arm surgery, ulnar nerve decompression X7 PAST SURGICAL HISTORY OF 05/2009 ganglion cyst removed right wrist PAST SURGICAL HISTORY OF 03/02/2016 pH probe PAST SURGICAL HISTORY OF Left 2002 carpal tunnel release PAST SURGICAL HISTORY OF 02/11/2017 laproscopic Walter Fundoplication.(Dr. Lincoln Esquivel Gen (more content not included)...[facility]07-14-2025 History of Present illness Narrative* Jaylin Combs PA-C - 01/22/2025 12:07 PM EDT Chief Complaint Patient presents with: left foot pain: and edema x 6-7 months HPI Nora Camarillo is a 74 year old female who presents here today for Above Complaints.. Left Ankle Pain and Swelling: - Notes left ankle swelling for past 6-7 months - Swelling now extends to the heel, causing discomfort when wearing shoes. - Pain exacerbated by certain positions during sleep; reports a sensation of the ankle coming out of place and needing to stand to alleviate discomfort. - Describes a popping sensation with certain movements in bed, causing pain to radiate up the leg. - Denies any known trauma or injury to the ankle. - Has a boot at home from a previous foot procedure 2 years ago, where a wire was [facility]. Past medical history, appointments, medications, allergies reviewed. Previous Medical History PAST MEDICAL HISTORY Diagnosis Date Abnormal computed tomography angiography (CTA) 01/03/2019 right upper ICA with abnormality, consult to vascular 12/2018 Acute meniscal tear of left knee 04/13/2019 Advance directive discussed with patient 02/12/2022 Discussed 02/2022 Allergies Anxiety and depression 09/27/2020 Arthritis of left knee 02/19/2019 Bilateral carotid artery stenosis 01/03/2019 US: 12/2018 20-40% tatyana Chronic bilateral low back pain 01/01/2016 Seen [facility] Chronic pain of both ankles 09/27/2020 Chronic pain of left knee 09/27/2020 Chronic pain of right knee 09/30/2021 Sees [facility] Current use of proton pump inhibitor 08/25/2019 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 rojas Hiatal hernia 07/22/2016 Left hip pain 09/14/[address] [facility] Xander Martinez Left lateral abdominal pain 02/15/2019 Mid quadrant, chronic and paroxysmal. 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 Linn Mixed hyperlipidemia 11/20/2009 Mixed incontinence 06/27/[address] Queen Obesity, Class I, BMI 30-34.9 06/15/2019 Palpitations 08/25/2019 Primary insomnia 07/22/2016 PUD (peptic ulcer disease) 03/13/2016 Hx of ulcer 2018 and two again in 10/2020. No NSAID's (aspirin held 10/2020) Second hand smoke exposure 11/08/2023 Senile osteoporosis 01/05/2006 Clinical Team Manager following (Dr. Dobson) Simple cyst of breast 11/2009 Left retroareolar Unspecified constipation Previous Surgical History PAST SURGICAL HISTORY Procedure Laterality Date APPENDECTOMY ARTHROSCOPY KNEE DIAGNOSTIC W/WO SYNOVIAL BX SPX Right 2021 meniscus repair, cementing - Dr. Cunha ARTHRS KNE SURG W/MENISCECTOMY MED/LAT W/SHVG Left 06/23/2019 Left knee medial and lateral menisectomies, medial and PF chondroplasties BREAST BIOPSY Left 2002 CARDIAC CATH 2004 COLONOSCOPY FLX DX W/COLLJ SPEC WHEN PFRMD 05/22/2019 Colonoscopy COLPOPEXY VAGINAL EXTRAPERITONEAL APPROACH 02/2013 repair of rectal and vaginal prolapse COLSC FLX W/RMVL OF TUMOR POLYP LESION SNARE TQ 01/28/2016 repeat 10 yrs EGD 10/16/2020 2 cratered gastric ulcers; Dr. Guillermo EGD TRANSORAL BIOPSY SINGLE/MULTIPLE 01/24/2007 EGD TRANSORAL BIOPSY SINGLE/MULTIPLE 01/28/2016 ESOPHAGEAL MOTILITY STUDY W/INTERP&RPT 04/29/2016 ESOPHAGOGASTRODUODENOSCOPY TRANSORAL DIAGNOSTIC 05/22/2005 EGD H-pylori negative ESOPHAGOGASTRODUODENOSCOPY TRANSORAL DIAGNOSTIC 03/02/2016 ESOPHAGOGASTRODUODENOSCOPY TRANSORAL DIAGNOSTIC 05/22/2019 EGD ESOPHAGOGASTRODUODENOSCOPY TRANSORAL DIAGNOSTIC 12/10/2020 healed ulcers; fundoplication intact; Dr. Guillermo GASTROESOPHAG REFLX TEST W/TELEMTRY PH ELTRD 03/02/2016 48 hour ph probe HERNIA REPAIR HX 1971 & 1973 herniorrhaphy, umbilical, right inguinal . PAST SURGICAL HISTORY OF 01/2005 heart catheterization PAST SURGICAL HISTORY OF 11/03/2004 left breast bx PAST SURGICAL HISTORY OF D & C, multiple PAST SURGICAL HISTORY OF Right 1990 carpal tunnel release PAST SURGICAL HISTORY OF Right arm surgery, ulnar nerve decompression X7 PAST SURGICAL HISTORY OF 05/2009 ganglion cyst removed right wrist PAST SURGICAL HISTORY OF 03/02/2016 pH probe PAST SURGICAL HISTORY OF Left 2002 carpal tunnel release PAST SURGICAL HISTORY OF 02/11/2017 laproscopic Walter Fundoplication.(Dr. Rojas [facility]) PAST SURGICAL HISTORY OF Right 12/2021 Tx of meniscus tear and Fx PAST SURGICAL HISTORY OF Left removal of foreign body in left foot. RECONSTRUCT VAGINAL WALL WITH MESH 04/2015 REMOVE CATARACT, INSERT LENS,EX 02/28/2009 Both Eyes REMV CATARACT EXTRACAP,INSERT LENS Bilateral RETROARC BLADDER SLING [id number] 09/03/2015 retroarc tension free vaginal sling TONSILLECTOMY HX 1956 TOTAL ABDOM HYSTERECTOMY 1989 TOTAL KNEE REPLACEMENT Right 07/26/2024 Robotic Assisted Right Total knee arthroplasty VENOGRAM UNILATERAL 04/2020 groin Family History FAMILY HISTORY Problem Relation Age of Onset Heart Mother Diabetes Mother Cancer Father base of skull other (parkinsons) Father Thyroid Sister Breast Cancer Sister other (hepatitis) Sister @62yrs of age/Liver Problems Thyroid Daughter Thyroid Daughter Cervical Cancer Daughter No Ocular Disease No Family History Anesthesia Problems No Family History Malig Hyperthermia No Family History Patient Allergies ALLERGIES Allergen Reactions Morphine GI Upset nausea Nsaids (Non-Steroid* Other: See Comments Hx of stomach ulcers Advair Diskus [Flut* Intolerance Hurts throat Bentyl [Dicyclomine* Unknown Celebrex [Celecoxib] GI Upset Dicyclomine Other: See Comments Dry mouth, blurred vision, loss of taste Estrace [Estradiol] Itching Evista [Raloxifene * Itching Macrobid [Nitrofura* Other: See Comments Hair loss Medrol [Methylpredn* Other: See Comments Dry mouth, sore throat. Mobic [Meloxicam] Intolerance Oxycontin [Oxycodon* Itching Penicillins Itching Prozac [Fluoxetine * Unknown Sulfamethizole GI Upset Symax-Sl [Hyoscyami* Unknown Current Medications Current Outpatient Medications on File Prior to Visit Medication Sig montelukast (SINGULAIR) 10 mg tablet Take 1 tablet by mouth daily at bedtime. zolpidem (AMBIEN CR) 6.25 mg CR tablet Take 1 tablet by mouth at bedtime as needed for up to 30 days. Cyanocobalamin 1,000 mcg TbER Take 1 tablet by mouth once daily. albuterol HFA (VENTOLIN HFA) 90 mcg/actuation inhaler Inhale 2 Puffs as instructed every 4 hours asneeded. nystatin (NYSTOP) powder Apply 1 application to affected area three times daily. to affected area as needed cholecalciferol, Vitamin D3, (VITAMIN D3) 1,250 mcg (50,000 unit) cap capsule Take 1 capsule by mouth every other week. cyclobenzaprine (FLEXERIL) 5 mg tablet Take 1 tablet by mouth three times a day. (Patient not taking: Reported on 01/22/2025) acetaminophen (TYLENOL) 500 mg tablet Take 2 tablets by mouth every 8 hours as needed for pain. (Patient not taking: Reported on 10/24/2024) ascorbic acid, vitamin C, (VITAMIN C) 500 mg tablet Take 1 tablet by mouth two times a day with meals for 27 doses. aspirin, enteric coated (ASPIRIN, ENTERIC COATED) 81 mg EC tablet Take 1 tablet by mouth two times a day for 28 days. No current facility-administered medications on file prior to visit. Social History Social History Tobacco Use Smoking status: Never Passive exposure: Never Smokeless tobacco: Never Tobacco comments: Father smoked occasionally in childhood home. Spouse smoked in home until 4 years ago. Vaping Use Vaping status: Never Used Substance Use Topics Alcohol use: No Drug use: No Review of Symptoms REVIEW OF SYSTEMS SEE HPI EXAM: BP 110/70 (BP Site: Right Arm, BP Position: Sitting, BP Cuff Size: Large Adult) Pulse 69 Temp 36.8 C (98.3 F) Resp 18 Wt 82.1 kg (181 lb) SpO2 97% BMI 31.56 kg/m General Appearance: Well appearing, alert, in no acute distress, well-hydrated, well nourished.. Musculoskeletal: Left ankle with soft tissue swelling, point tenderness on the lateral malleolus. No deformities, no skin discoloration, no edema. FROM with minimal discomfort. varicose veins noted. [facility] Maintenance List DTaP,Tdap,Td Vaccine(1 - Tdap) Never done RSV Vaccine(1 - Risk 60-74 years 1-dose series) Never done Advance Directive Discussion due on 07/12/2024 Bone Density Screening due on 03/17/2025 Medicare Annual Wellness Visit due on 03/24/2025 Mammogram Screening due on 10/03/2025 Annual PCP Team Chronic Disease Visit due on 01/22/2026 Diabetes Screening due on 09/16/2027 Colorectal Cancer Screening due on 05/22/2029 Lipid Screening due on 09/15/2029 Hepatitis C Screening Completed Shingrix Vaccine Completed Pneumococcal Vaccine: 50+ Completed Influenza Vaccine Discontinued Covid-19 Vaccine Discontinued Data reviewed N/a Assessment and Plan 1. Chronic pain of left ankle (M25.572) 2. Swelling of ankle joint, left (M25.472) - Chronic pain and swelling in the left ankle, worsening over the past 6-7 months. Pain exacerbatedby certain movements and shoe wear; described as a sensation of the ankle coming out of place at night. - Physical examination reveals soft tissue swelling and point tenderness on the lateral aspect of the ankle. - Differential diagnosis includes soft tissue, ligament, or tendon involvement. - Ordered X-ray of the left ankle to assess for any bony abnormalities. - Referred to podiatry for further evaluation and management. Jaylin Combs PA-C Recording using [employer] software for draft documentation of the visit was discussed with the patient/authorized assistance representative; all questions welcomed and answered. Patient/authorized assistance representative agreed to proceed [facility] Telephone encounter Note * Telephone Encounter - Lidya Huerta LPN - 01/18/2025 11:53 AM EDT [facility] 02/15/24 Patient phones requesting refills as follows: Requested Prescriptions Pending Prescriptions Disp Refills montelukast (SINGULAIR) 10 mg tablet 90 tablet 2 Sig: Take 1 tablet by mouth daily at bedtime. Please review and advise. Lidya Huerta LPN [facility]07-10-2025 Miscellaneous Notes* Telephone Encounter - Lidya Huerta LPN - 01/18/2025 11:53 AM EDT [facility] 02/15/24 Patient phones requesting refills as follows: Requested Prescriptions Pending Prescriptions Disp Refills montelukast (SINGULAIR) 10 mg tablet 90 tablet 2 Sig: Take 1 tablet by mouth daily at bedtime. Please review and advise. Lidya Huerta LPN * Telephone Encounter - Claudia De Jesus MA - 01/18/2025 11:04 AM EDT Prescription Refill Information The patient has been identified by name and date of : Yes Caregiver verified no other encounters exist for this prescription request: Yes Caregiver confirmed with patient/requestor that no other refills are due, in the near future, with this provider at this time: Yes The last office visit in the department: 02/15/2024 Does the patient have a future office visit with this provider/department: No Requested Prescriptions Pending Prescriptions Disp Refills montelukast (SINGULAIR) 10 mg tablet 90 tablet 2 Sig: Take 1 tablet by mouth daily at bedtime. Claudia De Jesus MA January 18, 2025 11:05 AM documented [facility] Telephone encounter Note * Telephone Encounter - Claudia De Jesus MA - 01/18/2025 11:04 AM EDT Prescription Refill Information The patient has been identified by name and date of : Yes Caregiver verified no other encounters exist for this prescription request: Yes Caregiver confirmed with patient/requestor that no other refills are due, in the near future, with this provider at this time: Yes The last office visit in the department: 02/15/2024 Does the patient have a future office visit with this provider/department: No Requested Prescriptions Pending Prescriptions Disp Refills montelukast (SINGULAIR) 10 mg tablet 90 tablet 2 Sig: Take 1 tablet by mouth daily at bedtime. Claudia De Jesus MA January 18, 2025 11:05 AM [facility] Telephone encounter Note* Telephone Encounter - Iesha Rosado MA - 01/18/2025 10:21 AM EDT Pt notified and voiced understanding. Iesha Rosado MA [facility]07-10[facility] Miscellaneous Notes* Telephone Encounter - Iesha Rosado MA - 01/18/2025 10:21 AM EDT Pt notified and voiced understanding. Iesha Rosado MA * Telephone Encounter - Scot Blank MD - 01/16/2025 9:38 PM EDT Advise patient her singulair was prescribed by pulmonary and will need to contact them. It appears she last seen Dr. Reza in 02/2024 and was to f/u in 6 months and cancelled her appt in Aug 2024 and never rescheduled. She may not be able to get a refill till seen. I sent in the Ambien refill still just for two months to stay compliant with [place] requirements. The following approved medication requests have been transmitted electronically. Requested Prescriptions Signed Prescriptions Disp Refills zolpidem (AMBIEN CR) 6.25 mg CR tablet 30 tablet 1 Sig: Take 1 tablet by mouth at bedtime as needed for up to 30 days. Authorizing Provider: SCOT BLANK MD PDMP website checked and validated. All prescriptions have been APPROPRIATELY filled. No suspiciousactivity was identified. 01/16/2025 by Scot Blank MD * Telephone Encounter - Claudia Flor - 01/16/2025 9:33 AM EDT Patient needs her meds send to [facility]. She is also asking if the Ambien can be sent in for 3 months at a time. * Telephone Encounter - Claudia Flor - 01/16/2025 9:31 AM EDT Prescription Refill Information The patient has been identified by name and date of : Yes Caregiver verified no other encounters exist for this prescription request: Yes Caregiver confirmed with patient/requestor that no other refills are due, in the near future, with this provider at this time: Yes The last office visit in the department: 10-24-24 Does the patient have a future office visit with this provider/department: Yes Requested Prescriptions Pending Prescriptions Disp Refills zolpidem (AMBIEN CR) 6.25 mg CR tablet 30 tablet 1 Sig: Take 1 tablet by mouth at bedtime as needed for up to 30 days. montelukast (SINGULAIR) 10 mg tablet 90 tablet 2 Sig: Take 1 tablet by mouth daily at bedtime. Claudia Fitzgerald January 16, 2025 9:33 AM documented in [facility] encounterWood [facility] Telephone encounter Note * Telephone Encounter - Scot Blank MD - 01/16/2025 9:38 PM EDT Advise patient her shaunnair was prescribed by pulmonary and will need to contact them. It appears she last seen Dr. Reza in 02/2024 and was to f/u in 6 months and cancelled her appt in Aug 2024 and never rescheduled. She may not be able to get a refill till seen. I sent in the Ambien refill still just for two months to stay compliant with [place]E requirements. The following approved medication requests have been transmitted electronically. Requested Prescriptions Signed Prescriptions Disp Refills zolpidem (AMBIEN CR) 6.25 mg CR tablet 30 tablet 1 Sig: Take 1 tablet by mouth at bedtime as needed for up to 30 days. Authorizing Provider: SCOT BLANK MD PDMP website checked and validated. All prescriptions have been APPROPRIATELY filled. No suspiciousactivity was identified. 01/16/2025 by Scot Blank MD [facility] Telephone encounter Note* Telephone Encounter - Claudia Flor - 01/16/2025 9:33 AM EDT Patient needs her meds send to [facility]. She is also asking if the Ambien can be sent in for 3 months at a time. [facility] Telephone encounter Note* Telephone Encounter - Claudia Flor - 01/16/2025 9:31 AM EDT Prescription Refill Information The patient has been identified by name and date of : Yes Caregiver verified no other encounters exist for this prescription request: Yes Caregiver confirmed with patient/requestor that no other refills are due, in the near future, with this provider at this time: Yes The last office visit in the department: 10-24-24 Does the patient have a future office visit with this provider/department: Yes Requested Prescriptions Pending Prescriptions Disp Refills zolpidem (AMBIEN CR) 6.25 mg CR tablet 30 tablet 1 Sig: Take 1 tablet by mouth at bedtime as needed for up to 30 days. montelukast (SINGULAIR) 10 mg tablet 90 tablet 2 Sig: Take 1 tablet by mouth daily at bedtime. Claudia Sangita Fitzgerald January 16, 2025 9:33 AM [facility] Telephone encounter Note* Telephone Encounter - Amalia Richards LPN - 11/14/2024 4:40 PM EDT Phoned patient went over notes below from Dr Blank with understanding. [facility] Miscellaneous Notes* Telephone Encounter - Amalia Richards LPN - 11/14/2024 4:40 PM EDT Phoned patient went over notes below from Dr Blank with understanding. * Telephone Encounter - Scot Blank MD - 11/14/2024 2:08 PM EDT Let patient know I sent in Ambien CR at 6.25 mg before bed. The following approved medication requests have been transmitted electronically. Requested Prescriptions Signed Prescriptions Disp Refills zolpidem (AMBIEN CR) 6.25 mg CR tablet 30 tablet 1 Sig: Take 1 tablet by mouth at bedtime as needed for up to 30 days. Authorizing Provider: SCOT BLANK MD PDMP website checked and validated. All prescriptions have been APPROPRIATELY filled. No suspiciousactivity was identified. 11/14/2024 by Scot Blank MD * Telephone Encounter - Sangita Ron RN - 11/14/2024 10:19 AM EDT Pt reports she is prescribed ambien CR 12.5 mg daily at bedtime, but it causes her to still be sleepy when she wakes up. Reports she has been cutting it in half, for some time now. Pt asking pcp can reduce the dose to send the 5 mg ambien to [facility]. Pended but pcp will need to fill out script with the details. Last ov: 10/24/24 Next ov: 04/26/25 documented in [facility] encounter[facility]05-[facility] Telephone encounter Note * Telephone Encounter - Scot Blank MD - 11/14/2024 2:08 PM EDT Let patient know I sent in Ambien CR at 6.25 mg before bed. The following approved medication requests have been transmitted electronically. Requested Prescriptions Signed Prescriptions Disp Refills zolpidem (AMBIEN CR) 6.25 mg CR tablet 30 tablet 1 Sig: Take 1 tablet by mouth at bedtime as needed for up to 30 days. Authorizing Provider: SCOT BLANK MD PDMP website checked and validated. All prescriptions have been APPROPRIATELY filled. No suspiciousactivity was identified. 11/14/2024 by Scot Blank MD [facility] Telephone encounter Note* Telephone Encounter - Sangita Ron RN - 11/14/2024 10:19 AM EDT Pt reports she is prescribed ambien CR 12.5 mg daily at bedtime, but it causes her to still be sleepy when she wakes up. Reports she has been cutting it in half, for some time now. Pt asking pcp can reduce the dose to send the 5 mg ambien to [facility]. Pended but pcp will need to fill out script with the details. Last ov: 10/24/24 Next ov: 04/26/25 [facility] Telephone encounter Note* Telephone Encounter - Jaylin Combs PA-C - 10/25/2024 2:40 PM EDT The following approved medication requests have been transmitted electronically. Requested Prescriptions Signed Prescriptions Disp Refills methylPREDNISolone (MEDROL, JOLEEN,) 4 mg Dose-Pack 21 tablet 0 Sig: Follow dosing instructions, take with food. Authorizing Provider: JAYLIN COMBS PA-C [facility] Miscellaneous Notes* Telephone Encounter - Jaylin Combs PA-C - 10/25/2024 2:40 PM EDT The following approved medication requests have been transmitted electronically. Requested Prescriptions Signed Prescriptions Disp Refills methylPREDNISolone (MEDROL, JOLEEN,) 4 mg Dose-Pack 21 tablet 0 Sig: Follow dosing instructions, take with food. Authorizing Provider: JAYLIN COMBS PA-C * Telephone Encounter - Patrizia Donaldson RN - 10/25/2024 2:35 PM EDT Pt saw Jaylin Garret yesterday and Jaylin said she was going to call in a steroid for pt's backpain. Per note: 11. Acute left-sided low back pain without sciatica (M54.50) - Prescribed Medrol Dose Pack to reduce inflammation. Does not appear that script was sent in. [facility]. Pt requests [facility] in [place]. documented in [facility] encounter[facility]04-[facility]-2025 Telephone encounter Note * Telephone Encounter - Patrizia Donaldson RN - 10/25/2024 2:35 PM EDT Pt saw Jaylin Garret yesterday and Jaylin said she was going to call in a steroid for pt's backpain. Per note: 11. Acute left-sided low back pain without sciatica (M54.50) - Prescribed Medrol Dose Pack to reduce inflammation. Does not appear that script was sent in. Will msg provider. [facility] [place]25 NoteHNO ID: [id number] Author: JAYLIN COMBS PA-C Service: ? Author Type: Physician Professional Application Designer Type: Progress Notes Filed: 10/24/2024 14:39 Note Text: Chief Complaint Patient presents with: 6 Month Exam HPI Nora Camarillo is a 74 year old female who presents here today for Chronic Medical Conditions.. Patient with hx of hyperlipidemia, asthma, insomnia, tremor, PUD, arthritis, vit d def, melany eugene dz and those as below. Back Pain: - Onset approximately two weeks ago after shopping; severe pain when attempting to exit the car. - Pain initially resolved with Salonpas and Aleve but recurred last Wednesday. - Describes pain as so bad that it affects walking, particularly in the morning. - Pain localized to the left lower side of the back. - Concerned it might be related to kidney issues; Dr. Dhillon prescribed a muscle relaxant with minimal relief. - Wonders if pain is due to changes in gait post-knee replacement. - Considering visiting a chiropractor for relief. Knee Replacement: - Underwent knee replacement on 07/26. - Completed two weeks of home physical therapy followed by clinic-based therapy. - Reports significant improvement in mobility but still experiences some pain. - Followed up with Dr. Dhillon, who noted she is ahead of schedule in recovery. no other concerns today Past medical history, appointments, medications, allergies reviewed. Previous Medical History PAST MEDICAL HISTORY Diagnosis Date Abnormal computed tomography angiography (CTA) 01/03/2019 right upper ICA with abnormality, consult to vascular 12/2018 Acute meniscal tear of left knee 04/13/2019 Advance directive discussed with patient 02/12/2022 Discussed 02/2022 Allergies Anxiety and depression 09/27/2020 Arthritis of left knee 02/19/2019 Bilateral carotid artery stenosis 01/03/2019 US: 12/2018 20-40% tatyana Chronic bilateral low back pain 01/01/2016 Seen [facility] Chronic pain of both ankles 09/27/2020 Chronic pain of left knee 09/27/2020 Chronic pain of right knee 09/30/2021 Sees [facility] Current use of proton pump inhibitor 08/25/2019 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 rojas Hiatal hernia 07/22/2016 Left hip pain 09/14/[address] [facility] [address] Xander Martinez Left lateral abdominal pain 02/15/2019 Mid quadrant, chronic and paroxysmal. 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 Linn Mixed hyperlipidemia 11/20/2009 Mixed incontinence 06/27/[address] Queen Obesity, Class I, BMI 30-34.9 06/15/2019 Palpitations 08/25/2019 Primary insomnia 07/22/2016 PUD (peptic ulcer disease) 03/13/2016 Hx of ulcer 2018 and two again in 10/2020. No NSAID's (aspirin held 10/2020) Second hand smoke exposure 11/08/2023 Senile osteoporosis 01/05/2006 Clinical Team Manager following (Dr. Dobson) Simple cyst of breast 11/2009 Left retroareolar Unspecified constipation Previous Surgical History PAST SURGICAL HISTORY Procedure Laterality Date APPENDECTOMY ARTHROSCOPY KNEE DIAGNOSTIC W/WO SYNOVIAL BX SPX Right 2021 meniscus repair, cementing - Dr. Cunha ARTHRS KNE SURG W/MENISCECTOMY MED/LAT W/SHVG Left 06/23/2019 Left knee medial and lateral menisectomies, medial and PF chondroplasties BREAST BIOPSY Left 2002 CARDIAC CATH 2004 COLONOSCOPY FLX DX W/COLLJ SPEC WHEN PFRMD 05/22/2019 Colonoscopy COLPOPEXY VAGINAL EXTRAPERITONEAL APPROACH 02/2013 repair of rectal and vaginal prolapse COLSC FLX W/RMVL OF TUMOR POLYP LESION SNARE TQ 01/28/2016 repeat 10 yrs EGD 10/16/2020 2 cratered gastric ulcers; Dr. Guillermo EGD TRANSORAL BIOPSY SINGLE/MULTIPLE 01/24/2007 EGD TRANSORAL BIOPSY SINGLE/MULTIPLE 01/28/2016 ESOPHAGEAL MOTILITY STUDY W/INTERPANDRPT 04/29/2016 ESOPHAGOGASTRODUODENOSCOPY TRANSORAL DIAGNOSTIC 05/22/2005 EGD H-pylori negative ESOPHAGOGASTRODUODENOSCOPY TRANSORAL DIAGNOSTIC 03/02/2016 ESOPHAGOGASTRODUODENOSCOPY TRANSORAL DIAGNOSTIC 05/22/2019 EGD ESOPHAGOGASTRODUODENOSCOPY TRANSORAL DIAGNOSTIC 12/10/2020 healed ulcers; fundoplication intact; Dr. Guillermo GASTROESOPHAG REFLX TEST W/TELEMTRY PH ELTRD 03/02/2016 48 hour ph probe HERNIA REPAIR HX 1970 AND 1972 herniorrhaphy, umbilical, right inguinal . PAST SURGICAL HISTORY OF 01/2005 heart catheterization PAST SURGICAL HISTORY OF 11/03/2004 left breast bx PAST SURGICAL HISTORY OF D AND C, multiple PAST SURGICAL HISTOR (more content not included)...[facility] 10-24-2024 History of Present illness Narrative* Jaylin Combs PA-C - 10/24/2024 2:04 PM EDT Chief Complaint Patient presents with: 6 Month Exam HPI Nora Camarillo is a 74 year old female who presents here today for Chronic Medical Conditions.. Patient with hx of hyperlipidemia, asthma, insomnia, tremor, PUD, arthritis, vit d def, melany jon and those as below. Back Pain: - Onset approximately two weeks ago after shopping; severe pain when attempting to exit the car. - Pain initially resolved with Salonpas and Aleve but recurred last Wednesday. - Describes pain as so bad that it affects walking, particularly in the morning. - Pain localized to the left lower side of the back. - Concerned it might be related to kidney issues; Dr. Dhillon prescribed a muscle relaxant with minimal relief. - Wonders if pain is due to changes in gait post-knee replacement. - Considering visiting a chiropractor for relief. Knee Replacement: - Underwent knee replacement on 07/26. - Completed two weeks of home physical therapy followed by clinic-based therapy. - Reports significant improvement in mobility but still experiences some pain. - Followed up with Dr. Dhillon, who noted she is ahead of schedule in recovery. no other concerns today Past medical history, appointments, medications, allergies reviewed. Previous Medical History PAST MEDICAL HISTORY Diagnosis Date Abnormal computed tomography angiography (CTA) 01/03/2019 right upper ICA with abnormality, consult to vascular 12/2018 Acute meniscal tear of left knee 04/13/2019 Advance directive discussed with patient 02/12/2022 Discussed 02/2022 Allergies Anxiety and depression 09/27/2020 Arthritis of left knee 02/19/2019 Bilateral carotid artery stenosis 01/03/2019 US: 12/2018 20-40% tatyana Chronic bilateral low back pain 01/01/2016 Seen [facility] Chronic pain of both ankles 09/27/2020 Chronic pain of left knee 09/27/2020 Chronic pain of right knee 09/30/2021 [facility]es [facility] Current use of proton pump inhibitor 08/25/2019 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 rojas Hiatal hernia 07/22/2016 Left hip pain 09/14/[address] [facility] [address] Xander Martinez Left lateral abdominal pain 02/15/2019 Mid quadrant, chronic and paroxysmal. 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 Linn Mixed hyperlipidemia 11/20/2009 Mixed incontinence 06/27/[address] Queen Obesity, Class I, BMI 30-34.9 06/15/2019 Palpitations 08/25/2019 Primary insomnia 07/22/2016 PUD (peptic ulcer disease) 03/13/2016 Hx of ulcer 2018 and two again in 10/2020. No NSAID's (aspirin held 10/2020) Second hand smoke exposure 11/08/2023 Senile osteoporosis 01/05/2006 Clinical Team Manager following (Dr. Dobson) Simple cyst of breast 11/2009 Left retroareolar Unspecified constipation Previous Surgical History PAST SURGICAL HISTORY Procedure Laterality Date APPENDECTOMY ARTHROSCOPY KNEE DIAGNOSTIC W/WO SYNOVIAL BX SPX Right 2021 meniscus repair, cementing - Dr. Cunha ARTHRS KNE SURG W/MENISCECTOMY MED/LAT W/SHVG Left 06/23/2019 Left knee medial and lateral menisectomies, medial and PF chondroplasties BREAST BIOPSY Left 2002 CARDIAC CATH 2004 COLONOSCOPY FLX DX W/COLLJ SPEC WHEN PFRMD 05/22/2019 Colonoscopy COLPOPEXY VAGINAL EXTRAPERITONEAL APPROACH 02/2013 repair of rectal and vaginal prolapse COLSC FLX W/RMVL OF TUMOR POLYP LESION SNARE TQ 01/28/2016 repeat 10 yrs EGD 10/16/2020 2 cratered gastric ulcers; Dr. Guillermo EGD TRANSORAL BIOPSY SINGLE/MULTIPLE 01/24/2007 EGD TRANSORAL BIOPSY SINGLE/MULTIPLE 01/28/2016 ESOPHAGEAL MOTILITY STUDY W/INTERP&RPT 04/29/2016 ESOPHAGOGASTRODUODENOSCOPY TRANSORAL DIAGNOSTIC 05/22/2005 EGD H-pylori negative ESOPHAGOGASTRODUODENOSCOPY TRANSORAL DIAGNOSTIC 03/02/2016 ESOPHAGOGASTRODUODENOSCOPY TRANSORAL DIAGNOSTIC 05/22/2019 EGD ESOPHAGOGASTRODUODENOSCOPY TRANSORAL DIAGNOSTIC 12/10/2020 healed ulcers; fundoplication intact; Dr. Guillermo GASTROESOPHAG REFLX TEST W/TELEMTRY PH ELTRD 03/02/2016 48 hour ph probe HERNIA REPAIR HX 1971 & 1973 herniorrhaphy, umbilical, right inguinal . PAST SURGICAL HISTORY OF 01/2005 heart catheterization PAST SURGICAL HISTORY OF 11/03/2004 left breast bx PAST SURGICAL HISTORY OF D & C, multiple PAST SURGICAL HISTORY OF Right 1990 carpal tunnel release PAST SURGICAL HISTORY OF Right arm surgery, ulnar nerve decompression X7 PAST SURGICAL HISTORY OF 05/2009 ganglion cyst removed right wrist PAST SURGICAL HISTORY OF 03/02/2016 pH probe PAST SURGICAL HISTORY OF Left 2002 carpal tunnel release PAST SURGICAL HISTORY OF 02/11/2017 laproscopic Walter Fundoplication.(Dr. Rojas [facility]) PAST SURGICAL HISTORY OF Right 12/2021 Tx of meniscus tear and Fx PAST SURGICAL HISTORY OF Left removal of foreign body in left foot. RECONSTRUCT VAGINAL WALL WITH MESH 04/2015 REMOVE CATARACT, INSERT LENS,EX 02/28/2009 Both Eyes REMV CATARACT EXTRACAP,INSERT LENS Bilateral RETROARC BLADDER SLING [id number] 09/03/2015 retroarc tension free vaginal sling TONSILLECTOMY HX 1956 TOTAL ABDOM HYSTERECTOMY 1989 TOTAL KNEE REPLACEMENT Right 07/26/2024 Robotic Assisted Right Total knee arthroplasty VENOGRAM UNILATERAL 04/2020 groin Family History FAMILY HISTORY Problem Relation Age of Onset Heart Mother Diabetes Mother Cancer Father base of skull other (parkinsons) Father Thyroid Sister Breast Cancer Sister other (hepatitis) Sister @62yrs of age/Liver Problems Thyroid Daughter Thyroid Daughter Cervical Cancer Daughter No Ocular Disease No Family History Anesthesia Problems No Family History Malig Hyperthermia No Family History Patient Allergies ALLERGIES Allergen Reactions Morphine GI Upset nausea Nsaids (Non-Steroid* Other: See Comments Hx of stomach ulcers Advair Diskus [Flut* Intolerance Hurts throat Bentyl [Dicyclomine* Unknown Celebrex [Celecoxib] GI Upset Dicyclomine Other: See Comments Dry mouth, blurred vision, loss of taste Estrace [Estradiol] Itching Evista [Raloxifene * Itching Macrobid [Nitrofura* Other: See Comments Hair loss Medrol [Methylpredn* Other: See Comments Dry mouth, sore throat. Mobic [Meloxicam] Intolerance Oxycontin [Oxycodon* Itching Penicillins Itching Prozac [Fluoxetine * Unknown Sulfamethizole GI Upset Symax-Sl [Hyoscyami* Unknown Current Medications Current Outpatient Medications on File Prior to Visit Medication Sig cyclobenzaprine (FLEXERIL) 5 mg tablet Take 1 tablet by mouth three times a day. Cyanocobalamin 1,000 mcg TbER Take 1 tablet by mouth once daily. cholecalciferol, Vitamin D3, (VITAMIN D3) 1,250 mcg (50,000 unit) cap capsule Take 1 capsule by mouth one time a week. acetaminophen (TYLENOL) 500 mg tablet Take 2 tablets by mouth every 8 hours as needed for pain. (Patient not taking: Reported on 10/24/2024) ascorbic acid, vitamin C, (VITAMIN C) 500 mg tablet Take 1 tablet by mouth two times a day with meals for 27 doses. aspirin, enteric coated (ASPIRIN, ENTERIC COATED) 81 mg EC tablet Take 1 tablet by mouth two times a day for 28 days. albuterol HFA (VENTOLIN HFA) 90 mcg/actuation inhaler Inhale 2 Puffs as instructed every 4 hours asneeded. Zolpidem (AMBIEN CR) 12.5 mg CR tablet Take 1 tablet by mouth at bedtime as needed for sedation forup to 90 days. Patient should start on April 27, 2024. montelukast (SINGULAIR) 10 mg tablet Take 1 tablet by mouth daily at bedtime. nystatin (NYSTOP) powder Apply 1 application to affected area three times daily. to affected area as needed No current facility-administered medications on file prior to visit. Social History Social History Tobacco Use Smoking status: Never Passive exposure: Never Smokeless tobacco: Never Tobacco comments: Father smoked occasionally in childhood home. Spouse smoked in home until 4 years ago. Vaping Use Vaping status: Never Used Substance Use Topics Alcohol use: No Drug use: No Review of Symptoms REVIEW OF SYSTEMS GENERAL: No weight loss, malaise or fevers NECK: Negative for lumps, goiter, pain and significant neck swelling RESPIRATORY: Negative for cough, hemoptysis, wheezing, COPD, dyspnea or shortness of breath CARDIOVASCULAR: Negative for chest pain, leg swelling, hypertension, CHF or palpitations MUSCULOSKELETAL: see hpi NEURO: No history of headaches, syncope, paralysis, seizures or tremors SEE HPI EXAM: BP 128/78 (BP Site: Left Arm, BP Position: Sitting, BP Cuff Size: Large Adult) Pulse 71 Temp 36.4 C (97.5 F) Resp 16 Wt 81.6 kg (180 lb) SpO2 96% BMI 31.39 kg/m General Appearance: Well appearing, alert, in no acute distress, well-hydrated, well nourished. andObese. Neck: Supple, no adenopathy; thyroid symmetric, normal size, no bruits. Lungs: Lungs clear to auscultation. No wheezing, rhonchi, rales.. Heart: RRR without murmur, gallop, or rubs. No ectopy. Abdomen: Normal abdominal exam, Abdomen soft, non-tender. Bowel sounds normal. No masses, organomegaly. Extremities: No deformities, edema, skin discoloration, clubbing or cyanosis. Good capillary refill. . Peripheral Pulses: Normal. MSK: normal spine exam. No pain to palp. Slr negative. Reflexes okay. Health Maintenance List DTaP,Tdap,Td Vaccine(1 - Tdap) Never done RSV Vaccine(1 - Risk 60-74 years 1-dose series) Never done Advance Directive Discussion due on 07/12/2024 Bone Density Screening due on 03/17/2025 Mammogram Screening due on 10/03/2025 Annual PCP Team Chronic Disease Visit due on 10/24/2025 Diabetes Screening due on 09/16/2027 Colorectal Cancer Screening due on 05/22/2029 Lipid Screening due on 09/15/2029 Spirometry Completed Hepatitis C Screening Completed Shingrix Vaccine Completed Pneumococcal Vaccine: 50+ Completed Influenza Vaccine Discontinued Covid-19 Vaccine Discontinued Data reviewed Latest Ref Rng 09/15/2024 Glucose 74 - 99 mg/dL 101 (H) BUN 7 - 21 mg/dL 12 Creatinine 0.58 - 0.96 mg/dL 0.57 (L) Sodium 136 - 144 mmol/L 138 Potassium 3.7 - 5.1 mmol/L 4.3 Chloride 98 - 107 mmol/L 103 CO2 22 - 30 mmol/L 24 Anion Gap 8 - 15 mmol/L 11 Calcium 8.5 - 10.2 mg/dL 9.3 eGFR >=60 mL/min/1.73m 95 Total Cholesterol, Nonfasting <200 mg/dL 185 Triglycerides, Nonfasting <150 mg/dL 116 HDL Cholesterol, Nonfasting >39 mg/dL 69 LDL Cholesterol, Nonfasting <100 mg/dL 93 Non HDL Cholesterol, Nonfasting <130 mg/dL 116 VLDL Cholesterol, Nonfasting <30 mg/dL 23 Total Chol/HDL Ratio, Nonfasting <5.10 mg/dL 2.68 LDL/HDL Ratio, Nonfasting <2.54 mg/dL 1.35 Hemoglobin A1C 4.3 - 5.6 % 5.0 Estimated Average Glucose mg/dL 97 Vitamin D 25 Hydroxy >=30.0 ng/mL 85.0 Magnesium 1.7 - 2.3 mg/dL 2.1 Vitamin B12 232 - 1,245 pg/mL <150 (L) Legend: (H) High (L) Low Assessment and Plan 1. Mixed hyperlipidemia (E78.2) - Recent lipid panel within normal limits. - Continue current management. 2. Essential tremor (G25.0) - Stable - Continue current management. 3. Vitamin B12 deficiency (E53.8) - Recent lab results indicate low B12 levels. - Initiated B12 supplementation at 2000 mcg daily. - Educated patient on the importance of maintaining B12 levels for neurological health and cognitive function. - Recheck B12 levels at next visit. 4. Elevated fasting blood sugar (R73.01) - Recent A1c is 5%, within normal limits. - Continue monitoring. 5. Age-related osteoporosis without current pathological fracture (M81.0) - continue current monitoring 6. Gastroesophageal reflux disease with esophagitis without hemorrhage (K21.00) - stable 7. Mild persistent asthma without complication (HCC) (J45.30) - Stable 8. Vitamin D deficiency (E55.9) - Recent lab results show vitamin D levels on the high side of normal. - Adjusted vitamin D supplementation from 50,000 units weekly to 50,000 units every other week. - Patient instructed to take the dose every other Wednesday. 9. Mixed incontinence (N39.46) - no new concerns 10. 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 Acute left-sided low back pain without sciatica (M54.50) - Prescribed Medrol Dose Pack to reduce inflammation. - Recommended PT/early breastfeeding care specialist. patient prefers chiropractor at this time. - If symptoms persist, will consider imaging and structured physical therapy. Jaylin Combs PA-C Recording using [employer] software for draft documentation of the visit was discussed with the patient/authorized assistance representative; all questions welcomed and answered. Patient/authorized assistance representative agreed to proceed [facility]04-[facility] NoteHNO ID: [id number] Author: BRYSON DHILLON MD Service: ? Author Type: Physician Type: Progress Notes Filed: 10/16/2024 18:30 Note Text: Bryson Dhillon MD Department of Orthopaedics Orthopaedics [address] [facility] [address] Dept: [phone] Dept October 16, 2024 CHIEF COMPLAINT: Post Op of the Right Knee (11 weeks 5 days post op Robotic assisted Right TKA). HPI Patient here for post op Robotic assisted Right TKA. Patient states she has finished physical therapy but is continuing home exercises. Patient uses a cane when outside the house. Patient states on Wednesday she was shopping and when she was getting out of the car she had pain in her back on the lower left side. She does have an appointment next week with her PCP. Taking Aleve only when needed for the pain. ASSESSMENT: Z96.651 S/P total knee arthroplasty, right (primary encounter diagnosis) Plan: SHe is 3 months and doing very well. She is getting better each week. Seemed to have strained her left flank. I'll give her a small muscle relaxer. Exam: Tender in the left flank near the ribs. Right knee looks great. Motion is 3-120 Imaging: Deferred today. Supporting Information Below: Medications: Current Outpatient Medications Medication Sig Cyanocobalamin 1,000 mcg TbER Take 1 tablet by mouth once daily. cholecalciferol, Vitamin D3, (VITAMIN D3) 1,250 mcg (50,000 unit) cap capsule Take 1 capsule by mouth one time a week. acetaminophen (TYLENOL) 500 mg tablet Take 2 tablets by mouth every 8 hours as needed for pain. albuterol HFA (VENTOLIN HFA) 90 mcg/actuation inhaler Inhale 2 Puffs as instructed every 4 hours as needed. Zolpidem (AMBIEN CR) 12.5 mg CR tablet Take 1 tablet by mouth at bedtime as needed for sedation for up to 90 days. Patient should start on April 27, 2024. montelukast (SINGULAIR) 10 mg tablet Take 1 tablet by mouth daily at bedtime. nystatin (NYSTOP) powder Apply 1 application to affected area three times daily. to affected area as needed ascorbic acid, vitamin C, (VITAMIN C) 500 mg tablet Take 1 tablet by mouth two times a day with meals for 27 doses. aspirin, enteric coated (ASPIRIN, ENTERIC COATED) 81 mg EC tablet Take 1 tablet by mouth two times a day for 28 days. No current facility-administered medications for this visit. Allergies: Morphine, Nsaids (Non-Steroidal Anti-Inflammatory Drug), Advair Diskus [Fluticasone Propion-Salmeterol], Bentyl [Dicyclomine Hcl], Celebrex [Celecoxib], Dicyclomine, Estrace [Estradiol], Evista [Raloxifene Hcl], Macrobid [Nitrofurantoin Monohyd/M-Cryst], Medrol [Methylprednisolone], Mobic [Meloxicam], Oxycontin [Oxycodone Hcl], Penicillins, Prozac [Fluoxetine Hcl], Sulfamethizole, and Symax-Sl [Hyoscyamine Sulfate] The patient consented to the use of ambient [employer] software for draft documentation of the visit consistent with [facility]?s Notice of Privacy Practices. [facility] History of Present illness Narrative* Bryson Dhillon MD - 10/16/2024 12:50 PM EDT Bryson Dhillon MD Department of Orthopaedics Orthopaedics [address] [facility] [address] Dept: [phone] Dept October 16, 2024 CHIEF COMPLAINT: Post Op of the Right Knee (11 weeks 5 days post op Robotic assisted Right TKA). HPI Patient here for post op Robotic assisted Right TKA. Patient states she has finished physical therapy but is continuing home exercises. Patient uses a cane when outside the house. Patient states on Wednesday she was shopping and when she was getting out of the car she had pain in her back on the lower left side. She does have an appointment next week with her PCP. Taking Aleve only when needed forthe pain. ASSESSMENT: Z96.651 S/P total knee arthroplasty, right (primary encounter diagnosis) Plan: SHe is 3 months and doing very well. She is getting better each week. Seemed to have strained her left flank. I'll give her a small muscle relaxer. Exam: Tender in the left flank near the ribs. Right knee looks great. Motion is 3-120 Imaging: Deferred today. Supporting Information Below: Medications: Current Outpatient Medications Medication Sig Cyanocobalamin 1,000 mcg TbER Take 1 tablet by mouth once daily. cholecalciferol, Vitamin D3, (VITAMIN D3) 1,250 mcg (50,000 unit) cap capsule Take 1 capsule by mouth one time a week. acetaminophen (TYLENOL) 500 mg tablet Take 2 tablets by mouth every 8 hours as needed for pain. albuterol HFA (VENTOLIN HFA) 90 mcg/actuation inhaler Inhale 2 Puffs as instructed every 4 hours asneeded. Zolpidem (AMBIEN CR) 12.5 mg CR tablet Take 1 tablet by mouth at bedtime as needed for sedation forup to 90 days. Patient should start on April 27, 2024. montelukast (SINGULAIR) 10 mg tablet Take 1 tablet by mouth daily at bedtime. nystatin (NYSTOP) powder Apply 1 application to affected area three times daily. to affected area as needed ascorbic acid, vitamin C, (VITAMIN C) 500 mg tablet Take 1 tablet by mouth two times a day with meals for 27 doses. aspirin, enteric coated (ASPIRIN, ENTERIC COATED) 81 mg EC tablet Take 1 tablet by mouth two times a day for 28 days. No current facility-administered medications for this visit. Allergies: Morphine, Nsaids (Non-Steroidal Anti-Inflammatory Drug), Advair Diskus [Fluticasone Propion-Salmeterol], Bentyl [Dicyclomine Hcl], Celebrex [Celecoxib], Dicyclomine, Estrace [Estradiol], Evista [Raloxifene Hcl], Macrobid [Nitrofurantoin Monohyd/M-Cryst], Medrol [Methylprednisolone], Mobic [Meloxicam], Oxycontin [Oxycodone Hcl], Penicillins, Prozac [Fluoxetine Hcl], Sulfamethizole, and Symax-Sl [Hyoscyamine Sulfate] The patient consented to the use of [employer] software for draft documentation of the visit consistent with [facility] s Notice of Privacy Practices. Bryson Dhillon MD documented in [facility] encounterWood [facility]2025 Telephone encounter Note * Telephone Encounter - Scot Blank MD - 10/04/2024 4:56 PM EDT The following approved medication requests have been transmitted electronically. Requested Prescriptions Signed Prescriptions Disp Refills Cyanocobalamin 1,000 mcg TbER 90 tablet 3 Sig: Take 1 tablet by mouth once daily. Scot Blank MD [facility]2025 Miscellaneous Notes* Telephone Encounter - Scot Blank MD - 10/04/2024 4:56 PM EDT The following approved medication requests have been transmitted electronically. Requested Prescriptions Signed Prescriptions Disp Refills Cyanocobalamin 1,000 mcg TbER 90 tablet 3 Sig: Take 1 tablet by mouth once daily. Scot Blank MD * Telephone Encounter - Treasure Sanchez MA - 10/04/2024 3:05 PM EDT Spoke with patient and gave results. She voiced understanding. She would like a prescription sent in to see if they will pay for it. [place]. Treasure Sanchez MA * Telephone Encounter - Qasim Patterson LPN - 09/25/2024 1:39 PM EDT Left message with pt's spouse for pt to contact office. Qasim Patterson LPN * Telephone Encounter - Jaylin Combs PA-C - 09/25/2024 12:59 PM EDT I just realized patient rescheduled her visit and now scheduled in October. Let her know we will discuss her labs then, but if she wants, she can start a b12 1000mcg supplement once daily. Her b12 level was quite low. Thanks. Jaylin Combs PA-C documented in [facility] encounterWood [facility]2025 Telephone encounter Note * Telephone Encounter - Treasure Sanchez MA - 10/04/2024 3:05 PM EDT Spoke with patient and gave results. She voiced understanding. She would like a prescription sent in to see if they will pay for it. [place]ijers. Treasure Sanchez MA [facility]03-25-2025 History of Present illness Narrative* Allison Sawant RT(R) - 10/03/2024 2:40 PM EDT Radiology Service Progress Note PATIENT NAME: Nora Camarillo DATE OF SERVICE: October 03, 2024 TIME: 2:42 PM PATIENT IDENTITY VERIFICATION COMPLETED USING TWO (2) IDENTIFIERS: Name and Date of confirmedby patient verbally. FALL SCREENING: Has the patient had 2 falls in the last year or 1 fall with injury or currently using an Ambulatory Assistive Device (Walker, Cane, Wheelchair, Crutches, etc.)? No PATIENT GENDER DATA: Assigned female at . status: : No status:NO. PATIENT RELEVANT IMPLANT DATA REVIEWED: Not Applicable PATIENT PRESENTS WITH AN IMPLANTABLE OR ATTACHED RUG DRY ROOM ATTENDANT: No RADIOLOGY DEPARTMENT: Mammography PERIPHERAL IV DATA: Not applicable SIGNED BY: RT Tai(R) October 03, 2024 2:42 PM documented in this encounterWood [facility] Hospital03-25-2025 NoteHNO ID: [id number] Author: ALLISON SAWANT RT(Flavio) Service: ? Author Type: Technologist Type: Progress Notes Filed: 10/03/2024 14:43 Note Text: Radiology Service Progress Note PATIENT NAME: Nora Camraillo DATE OF SERVICE: October 03, 2024 TIME: 2:42 PM PATIENT IDENTITY VERIFICATION COMPLETED USING TWO (2) IDENTIFIERS: Name and Date of confirmed by patient verbally. FALL SCREENING: Has the patient had 2 falls in the last year or 1 fall with injury or currently using an Ambulatory Assistive Device (Walker, Cane, Wheelchair, Crutches, etc.)? No PATIENT GENDER DATA: Assigned female at . status: : No status: NO. PATIENT RELEVANT IMPLANT DATA REVIEWED: Not Applicable PATIENT PRESENTS WITH AN IMPLANTABLE OR ATTACHED RUG DRY ROOM ATTENDANT: No RADIOLOGY DEPARTMENT: Mammography PERIPHERAL IV DATA: Not applicable SIGNED BY: RT Tai(R) October 03, 2024 2:42 [facility]03-17-2025 Telephone encounter Note* Telephone Encounter - Qasim Patterson LPN - 09/25/2024 1:39 PM EDT Left message with pt's spouse for pt to contact office. Qasim Patterson LPN [facility]03-17-2025 Telephone encounter Note* Telephone Encounter - Jaylin Combs PA-C - 09/25/2024 12:59 PM EDT I just realized patient rescheduled her visit and now scheduled in October. Let her know we will discuss her labs then, but if she wants, she can start a b12 1000mcg supplement once daily. Her b12 level was quite low. Thanks. Jaylin Combs PA-C [facility]03-10-2025 Telephone encounter Note* Telephone Encounter - Haritha Pascual MA - 09/18/2024 11:32 AM EDT Per Rebekah, as long as the patient is not taking any narcotics for pain relief and is comfortable going between brake and gas. Patient was in the office for PT and stopped by the desk. Message was relayed to her. She verbalized understanding. She states that her leg still feels weak and swells. The therapist mentioned to herthat she should wait to drive for about another month until she gets some strength built back up. Iadvised the patient to use her best judgement. She verbalized understanding. [facility]03-10-2025 Miscellaneous Notes* Telephone Encounter - Haritha Pascual MA - 09/18/2024 11:32 AM EDT Per Rebekah, as long as the patient is not taking any narcotics for pain relief and is comfortable going between brake and gas. Patient was in the office for PT and stopped by the desk. Message was relayed to her. She verbalized understanding. She states that her leg still feels weak and swells. The therapist mentioned to herthat she should wait to drive for about another month until she gets some strength built back up. Iadvised the patient to use her best judgement. She verbalized understanding. * Telephone Encounter - Tamanna Harrington RN - 09/18/2024 8:53 AM EDT Patient calling in asking when she can start driving again? s/p right TKR on 07/26/24 Tamanna Harrington RN documented in this encounterWood [facility] Hospital03-10-2025 NoteHNO ID: [id number] Author: XANDER WU PT Service: ? Author Type: Physical Therapist Type: Progress Notes Filed: 09/18/2024 11:18 Note Text: Episode Visit Count: 8 Therapist That Will Accept/Oversee The Plan Of Care: Xander Wu PT Start of Care Date: 08/14/24 Onset Date: 02/11/22 Plan of Care Certification Date: 08/14/24 Next Certification Due Date: 09/18/24 Patient Identified by Name and Date of : Yes REHABILITATION AND SPORTS THERAPY PHYSICAL THERAPY DISCONTINUANCE OF CARE PLAN OF CARE UPDATE: Assessment: Nora Camarillo is discontinued from Physical Therapy services due to Patient/Client declining further intervention.. Patient was seen for 8 visits from Start of Care Date: 08/14/24 to 09/18/2024 and treatment included: Therapeutic exercise, Self-retirement management, and Patient/Family/Caregiver Education. Goals updated 09/18/24 Goals for Episode of Care: created on 03/08/19 through 04/19/19 [place] in home exercise program. - Met Patient will decrease pain to 0/10 at rest and with functional activities to allow patient to improve ambulation, transfers and standing tolerance for ADLs. - Not met Patient will increase active ROM of L knee to WFL, symmetrical and pain-free to allow pt to improved performance of ADLs and to normalize gait mechanics / gait pattern . - Progressed Patient will increase strength of L LE to WFL and 5/5 to allow for return to prior functional status. 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 - Progressed Demonstrate improvement on functional score: Patient will improve his/her AM-PAC T-scale score by 4 points to indicate a Minimal Clinical Important Difference . - Not assessed Normal gait. - Progressed SUBJECTIVE: Did not sleep well. The knee pain is 6/10. Pt states she wants to discontinue PT because she is going to be very busy and her is in the hospital. Patient Goals: Wants to be able to get around [employer] Functional Limitations: walking, stair negotiation Prior Level of Function: Independent without limitations Intake Information: Prescription present Pain: Pain Pain Level: 6 Pain Location: Knee - Right Post Treatment Pain Post Treatment Pain Location: Knee - Right PROMIS Scales 09/11/2024 08/21/2024 08/14/2024 Higher is Better Phys Func - T Score 24 (severe dysfunction) Phys Func - Percentile 0 Self-Eff Symptom - T Score 44 (Average) 34 (Low) Self-Eff Symptom - Percentile 27 5 Mobility - T Score 34 (moderate dysfunction) Mobility - Percentile 5 Proxy-reported T-scores: mean of general population = 50. 5 points is clinically meaningfully difference Percentiles provide an indication of how the patient's score ranks in relation to the general population. Higher percentile rankings indicate better function/quality of life. 50th percentile is the average of the general population and indicates half of respondents had a worse score. OBJECTIVE MEASURES WITH LEVEL OF FUNCTION: LE AROM R Knee Extension: -2 Degrees R Knee Flexion: 107 Degrees LE Strength R Hip Flexion (L2): 4-/5 R Hip External Rotation: 3+/5 R Knee Extension (L3): 3+/5 (Causes anterior knee pain) R Knee Flexion: 4/5 R Ankle Dorsiflexion (L4): 4/5 Gait Weight Bearing Status: WBAT Gait: Modified Independent Gait Distance (feet): 20 Gait Device: Cane Gait Observation: WNL with use of SPC. Slight limp when ambulating without an AD TREATMENT: Therapeutic Exercise: 1: All objective measures taken 2: Supine SLR x 10 3: Standing knee ext stretch on step holding 30 sec 4: Standing knee flexion stretch x 30 on step 5: SciFit x 5 min (working on knee ROM, subjective taken, and 1:1 time spent) Skilled Intervention: Patient was educated in proper exercise technique and purpose for exercises. Provided written instruction for home exercise program to facilitate proper performance and compliance. Correct performance of therapeutic exercises was facilitated with verbal and visual cuing. Billing Therapeutic Exercise Treatment Minutes: 27 Skilled Treatment Time Minutes (timed and untimed codes): 27 Total Session Time (minutes): 27 Session Start Time : 1046 Session Stop Time : 1113 Xander Wu [facility]03-10-2025 History of Present illness Narrative* Xander Wu, PT - 09/18/2024 10:46 AM EDT Images from the original note were not included. Episode Visit Count: 8 Therapist That Will Accept/Oversee The Plan Of Care: Xander Wu PT Start of Care Date: 08/14/24 Onset Date: 02/11/22 Plan of Care Certification Date: 08/14/24 Next Certification Due Date: 09/18/24 Patient Identified by Name and Date of : Yes REHABILITATION AND SPORTS THERAPY PHYSICAL THERAPY DISCONTINUANCE OF CARE PLAN OF CARE UPDATE: Assessment: Nora Camarillo is discontinued from Physical Therapy services due to Patient/Client declining further intervention.. Patient was seen for 8 visits from Start of Care Date: 08/14/24 to 09/18/2024 and treatment included: Therapeutic exercise, Self-retirement management, and Patient/Family/Caregiver Education. Goals updated 09/18/24 Goals for Episode of Care: created on 03/08/19 through 04/19/19 [place] in home exercise program. - Met Patient will decrease pain to 0/10 at rest and with functional activities to allow patient to improve ambulation, transfers and standing tolerance for ADLs. - Not met Patient will increase active ROM of L knee to WFL, symmetrical and pain-free to allow pt to improved performance of ADLs and to normalize gait mechanics / gait pattern . - Progressed Patient will increase strength of L LE to WFL and 5/5 to allow for return to prior functional status. 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 - Progressed Demonstrate improvement on functional score: Patient will improve his/her AM-PAC T-scale score by 4 points to indicate a Minimal Clinical Important Difference . - Not assessed Normal gait. - Progressed SUBJECTIVE: Did not sleep well. The knee pain is 6/10. Pt states she wants to discontinue PT because she is going to be very busy and her is in the hospital. Patient Goals: Wants to be able to get around [place] Functional Limitations: walking, stair negotiation Prior Level of Function: Independent without limitations Intake Information: Prescription present Pain: Pain Pain Level: 6 Pain Location: Knee - Right Post Treatment Pain Post Treatment Pain Location: Knee - Right PROMIS Scales 09/11/2024 08/21/2024 08/14/2024 Higher is Better Phys Func - T Score 24 (severe dysfunction) Phys Func - Percentile 0 Self-Eff Symptom - T Score 44 (Average) 34 (Low) Self-Eff Symptom - Percentile 27 5 Mobility - T Score 34 (moderate dysfunction) Mobility - Percentile 5 Proxy-reported T-scores: mean of general population = 50. 5 points is clinically meaningfully difference Percentiles provide an indication of how the patient's score ranks in relation to the general population. Higher percentile rankings indicate better function/quality of life. 50th percentile is the average of the general population and indicates half of respondents had a worse score. OBJECTIVE MEASURES WITH LEVEL OF FUNCTION: LE AROM R Knee Extension: -2 Degrees R Knee Flexion: 107 Degrees LE Strength R Hip Flexion (L2): 4-/5 R Hip External Rotation: 3+/5 R Knee Extension (L3): 3+/5 (Causes anterior knee pain) R Knee Flexion: 4/5 R Ankle Dorsiflexion (L4): 4/5 Gait Weight Bearing Status: WBAT Gait: Modified Independent Gait Distance (feet): 20 Gait Device: Cane Gait Observation: WNL with use of SPC. Slight limp when ambulating without an AD TREATMENT: Therapeutic Exercise: 1: All objective measures taken 2: Supine SLR x 10 3: Standing knee ext stretch on step holding 30 sec 4: Standing knee flexion stretch x 30 on step 5: SciFit x 5 min (working on knee ROM, subjective taken, and 1:1 time spent) Skilled Intervention: Patient was educated in proper exercise technique and purpose for exercises. Provided written instruction for home exercise program to facilitate proper performance and compliance. Correct performance of therapeutic exercises was facilitated with verbal and visual cuing. Billing Therapeutic Exercise Treatment Minutes: 27 Skilled Treatment Time Minutes (timed and untimed codes): 27 Total Session Time (minutes): 27 Session Start Time : 1046 Session Stop Time : 1113 [facility]ander Wu [facility] Telephone encounter Note * Telephone Encounter - Tamanna Harrington RN - 09/18/2024 8:53 AM EDT Patient calling in asking when she can start driving again? s/p right TKR on 07/26/24 Tamanna Harrington RN [facility]03-07-2025 NoteHNO ID: [id number] Author: XANDER WU PT Service: ? Author Type: Physical Therapist Type: Progress Notes Filed: 09/15/2024 11:37 Note Text: Episode Visit Count: 7 Therapist That Will Accept/Oversee The Plan Of Care: Xander Wu PT Start of Care Date: 08/14/24 Onset Date: 02/11/22 Plan of Care Certification Date: 08/14/24 Next Certification Due Date: 09/18/24 Patient Identified by Name and Date of : Yes REHABILITATION AND SPORTS THERAPY PHYSICAL THERAPY TREATMENT NOTE ASSESSMENT: Nora Camarillo tolerated the session with expected muscle soreness. She demonstrated improvements in pain severity of the R knee post MT. The patient will continue to benefit from ongoing skilled physical therapy to progress toward set goals. PLAN FOR NEXT VISIT: Possible DC SUBJECTIVE: Pt feels that she has been a little more dizzy lately. And more pain in the knee in the front. Pain: Pain Pain Location: Knee - Right OBJECTIVE MEASURES WITH LEVEL OF FUNCTION: Slight antalgic gait TREATMENT: Therapeutic Exercise: 1: scifit stepper seat 13, level 1, 1:1 throughout subjective collected 5 min (working on knee flexion ROM) 2: Knee flexion stretch on step 2 x 10 3: Knee extension stretch on step 2 x 10 4: B heel raises 2 x 10 5: RLE hip abd standing x 10 Skilled Intervention: Patient was educated in proper exercise technique and purpose for exercises. Correct performance of therapeutic exercises was facilitated with verbal cuing. Manual Therapy: 1: Crossfriction massage over distal quad 2: Thumb gliding along rectus femoris of RLE Skilled Intervention: Manual skills to improve joint mobility, ROM, and decrease pain. Utilized anatomy knowledge of the therapist, and assessment of patient's response to intervention. Billing Therapeutic Exercise Treatment Minutes: 25 Manual TherapyTreatment Minutes: 15 Skilled Treatment Time Minutes (timed and untimed codes): 40 Total Session Time (minutes): 40 Session Start Time : 1055 Session Stop Time : 1135 Xander Wu [facility]03-07-2025 History of Present illness Narrative* Xander Wu, PT - 09/15/2024 10:57 AM EST Episode Visit Count: 7 Therapist That Will Accept/Oversee The Plan Of Care: Xander Wu PT Start of Care Date: 08/14/24 Onset Date: 02/11/22 Plan of Care Certification Date: 08/14/24 Next Certification Due Date: 09/18/24 Patient Identified by Name and Date of : Yes REHABILITATION AND SPORTS THERAPY PHYSICAL THERAPY TREATMENT NOTE ASSESSMENT: Nora Camarillo tolerated the session with expected muscle soreness. She demonstrated improvements in pain severity of the R knee post MT. The patient will continue to benefit from ongoing skilled physical therapy to progress toward set goals. PLAN FOR NEXT VISIT: Possible DC SUBJECTIVE: Pt feels that she has been a little more dizzy lately. And more pain in the knee in thefront. Pain: Pain Pain Location: Knee - Right OBJECTIVE MEASURES WITH LEVEL OF FUNCTION: Slight antalgic gait TREATMENT: Therapeutic Exercise: 1: scifit stepper seat 13, level 1, 1:1 throughout subjective collected 5 min (working on knee flexion ROM) 2: Knee flexion stretch on step 2 x 10 3: Knee extension stretch on step 2 x 10 4: B heel raises 2 x 10 5: RLE hip abd standing x 10 Skilled Intervention: Patient was educated in proper exercise technique and purpose for exercises. Correct performance of therapeutic exercises was facilitated with verbal cuing. Manual Therapy: 1: Crossfriction massage over distal quad 2: Thumb gliding along rectus femoris of RLE Skilled Intervention: Manual skills to improve joint mobility, ROM, and decrease pain. Utilized anatomy knowledge of the therapist, and assessment of patient's response to intervention. Billing Therapeutic Exercise Treatment Minutes: 25 Manual TherapyTreatment Minutes: 15 Skilled Treatment Time Minutes (timed and untimed codes): 40 Total Session Time (minutes): 40 Session Start Time : 1055 Session Stop Time : 113 Xander Jazmin, PT [facility] NoteHNO ID: [id number] Author: XANDER WU PT Service: ? Author Type: Physical Therapist Type: Progress Notes Filed: 09/11/2024 11:30 Note Text: Episode Visit Count: 6 Therapist That Will Accept/Oversee The Plan Of Care: Xander Wu PT Start of Care Date: 08/14/24 Onset Date: 02/11/22 Plan of Care Certification Date: 08/14/24 Next Certification Due Date: 09/18/24 Patient Identified by Name and Date of : Yes REHABILITATION AND SPORTS THERAPY PHYSICAL THERAPY TREATMENT NOTE ASSESSMENT: Nora Camarillo tolerated the session with fatigue and expected muscle soreness. She demonstrated some increased R knee pain with 9 F step-up exercise which calmed down after 1 minutes. The patient will continue to benefit from ongoing skilled physical therapy to progress toward set goals. PLAN FOR NEXT VISIT: Quad strengthening. SUBJECTIVE: Doing well. Pain: Pain Pain Level: 2 Pain Location: Knee - Right Post Treatment Pain Post Treatment Pain Location: Knee - Right OBJECTIVE MEASURES WITH LEVEL OF FUNCTION: TREATMENT: Therapeutic Exercise: 1: scifit stepper seat 13, level 1, 1:1 throughout subjective collected 5 min (1:1 tiem spent and subjective taken. HEP discussed) 2: 9 F step-up x 10 3: standing knee flexion stretch x 10 holding 5 sec each 4: STS x 12 5: Standing hip abd 4# at ankle x 10 6: Standing knee curl 4# at ankle x 10 7: Seated knee flexion stretch sliding heel underneath the chair x 5 holding 10 sec each 8: Ankle pumpc x 10 9: Ankle circles CW/CCW x 10 10: B heel raises x 20 11: Seated R HS stretch 2 x 30 Skilled Intervention: Patient was educated in proper exercise technique and purpose for exercises. Provided written instruction for home exercise program to facilitate proper performance and compliance. Correct performance of therapeutic exercises was facilitated with verbal and visual cuing. Billing Therapeutic Exercise Treatment Minutes: 40 Skilled Treatment Time Minutes (timed and untimed codes): 40 Total Session Time (minutes): 40 Session Start Time : 1048 Session Stop Time : 1128 Xander Wu [facility]03-03-2025 History of Present illness Narrative* Xander Wu PT - 09/11/2024 10:49 AM EST Episode Visit Count: 6 Therapist That Will Accept/Oversee The Plan Of Care: Xander Wu PT Start of Care Date: 08/14/24 Onset Date: 02/11/22 Plan of Care Certification Date: 08/14/24 Next Certification Due Date: 09/18/24 Patient Identified by Name and Date of : Yes REHABILITATION AND SPORTS THERAPY PHYSICAL THERAPY TREATMENT NOTE ASSESSMENT: Nora Camarillo tolerated the session with fatigue and expected muscle soreness. She demonstrated some increased R knee pain with 9 F step-up exercise which calmed down after 1 minutes. The patient will continue to benefit from ongoing skilled physical therapy to progress toward set goals. PLAN FOR NEXT VISIT: Quad strengthening. SUBJECTIVE: Doing well. Pain: Pain Pain Level: 2 Pain Location: Knee - Right Post Treatment Pain Post Treatment Pain Location: Knee - Right OBJECTIVE MEASURES WITH LEVEL OF FUNCTION: TREATMENT: Therapeutic Exercise: 1: scifit stepper seat 13, level 1, 1:1 throughout subjective collected 5 min (1:1 tiem spent and subjective taken. HEP discussed) 2: 9 F step-up x 10 3: standing knee flexion stretch x 10 holding 5 sec each 4: STS x 12 5: Standing hip abd 4# at ankle x 10 6: Standing knee curl 4# at ankle x 10 7: Seated knee flexion stretch sliding heel underneath the chair x 5 holding 10 sec each 8: Ankle pumpc x 10 9: Ankle circles CW/CCW x 10 10: B heel raises x 20 11: Seated R HS stretch 2 x 30 Skilled Intervention: Patient was educated in proper exercise technique and purpose for exercises. Provided written instruction for home exercise program to facilitate proper performance and compliance. Correct performance of therapeutic exercises was facilitated with verbal and visual cuing. Billing Therapeutic Exercise Treatment Minutes: 40 Skilled Treatment Time Minutes (timed and untimed codes): 40 Total Session Time (minutes): 40 Session Start Time : 1048 Session Stop Time : 1128 Xander Wu PT [facility] NoteHNO ID: [id number] Author: O'JACQUES, LISSA, PT Service: ? Author Type: Physical Therapist Type: Progress Notes Filed: 09/08/2024 09:52 Note Text: Episode Visit Count: 5 Therapist That Will Accept/Oversee The Plan Of Care: Xander Wu PT Start of Care Date: 08/14/24 Onset Date: 02/11/22 Plan of Care Certification Date: 08/14/24 Next Certification Due Date: 09/18/24 REHABILITATION AND SPORTS THERAPY PHYSICAL THERAPY TREATMENT NOTE ASSESSMENT: Nora Camarillo tolerated the session with decreased symptoms. She demonstrated difficulty with SLR and LAQ due to quadriceps weakness. The patient will continue to benefit from ongoing skilled physical therapy to progress toward set goals. PLAN FOR NEXT VISIT: quadriceps strengthening, quad sets in standing cues to avoid lumbar flexion SUBJECTIVE: Pt. asks about driving. She is concerned that her RLE ankle will not switch to the break fast enought Pain: Pain Pain Level: 0 Pain Location: Knee - Right Post Treatment Pain Post Treatment Pain Level: 0 Post Treatment Pain Location: Knee - Right OBJECTIVE MEASURES WITH LEVEL OF FUNCTION: TREATMENT: Therapeutic Exercise: 1: [employer] stepper seat 13, level 1, 1:1 throughout subjective collected 5 min (1:1 time spent and subjective taken) 2: Supine SLR 2 x 6 3: seated LAQ 4x12, 3 sec hold RLE 4: seated B hip add 4x15 1 sec hold each 5: seated B ankle ankle pumps - instructed to complete quickly 2x20 6: seated B ankle abd/add - instructed to complete quickly 2x20 7: supine SLR 4x8 RLE 8: standing HS curls BUE support 4x 12 RLE 9: hip abd RLE 2x12 Skilled Intervention: Patient was educated in proper exercise technique and purpose for exercises. Skilled judgment was used in selection of appropriate interventions. Educated patient on rationale for performing exercises in regards to decreasing fatigue , including balance, increase ease of ADL, and ROM and function . Patient education as noted. Billing Therapeutic Exercise Treatment Minutes: 40 Skilled Treatment Time Minutes (timed and untimed codes): 40 Total Session Time (minutes): 40 Session Start Time : 911 Session Stop Time : 951 Lissa Lira, [facility]02-28-2025 History of Present illness Narrative* Lissa Lira, PT - 09/08/2024 9:14 AM EST Episode Visit Count: 5 Therapist That Will Accept/Oversee The Plan Of Care: Xander Wu PT Start of Care Date: 08/14/24 Onset Date: 02/11/22 Plan of Care Certification Date: 08/14/24 Next Certification Due Date: 09/18/24 REHABILITATION AND SPORTS THERAPY PHYSICAL THERAPY TREATMENT NOTE ASSESSMENT: Nora Camarillo tolerated the session with decreased symptoms. She demonstrated difficulty with SLR and LAQ due to quadriceps weakness. The patient will continue to benefit from ongoing skilled physical therapy to progress toward set goals. PLAN FOR NEXT VISIT: quadriceps strengthening, quad sets in standing cues to avoid lumbar flexion SUBJECTIVE: Pt. asks about driving. She is concerned that her RLE ankle will not switch to the break fast enought Pain: Pain Pain Level: 0 Pain Location: Knee - Right Post Treatment Pain Post Treatment Pain Level: 0 Post Treatment Pain Location: Knee - Right OBJECTIVE MEASURES WITH LEVEL OF FUNCTION: TREATMENT: Therapeutic Exercise: 1: [employer] stepper seat 13, level 1, 1:1 throughout subjective collected 5 min (1:1 time spent and subjective taken) 2: Supine SLR 2 x 6 3: seated LAQ 4x12, 3 sec hold RLE 4: seated B hip add 4x15 1 sec hold each 5: seated B ankle ankle pumps - instructed to complete quickly 2x20 6: seated B ankle abd/add - instructed to complete quickly 2x20 7: supine SLR 4x8 RLE 8: standing HS curls BUE support 4x 12 RLE 9: hip abd RLE 2x12 Skilled Intervention: Patient was educated in proper exercise technique and purpose for exercises. Skilled judgment was used in selection of appropriate interventions. Educated patient on rationale for performing exercises in regards to decreasing fatigue , includingbalance, increase ease of ADL, and ROM and function . Patient education as noted. Billing Therapeutic Exercise Treatment Minutes: 40 Skilled Treatment Time Minutes (timed and untimed codes): 40 Total Session Time (minutes): 40 Session Start Time : 911 Session Stop Time : 951 Lissa Lira PT [facility] Telephone encounter Note * Telephone Encounter - Qasim Patterson LPN - 09/06/2024 7:20 AM EST Prescription Refill Information The patient has been identified by name and date of : Yes Caregiver verified no other encounters exist for this prescription request: Yes Caregiver confirmed with patient/requestor that no other refills are due, in the near future, with this provider at this time: Yes The last office visit in the department: 03/24/24 Does the patient have a future office visit with this provider/department: Yes Requested Prescriptions Pending Prescriptions Disp Refills cholecalciferol, Vitamin D3, (VITAMIN D3) 1,250 mcg (50,000 unit) cap capsule 12 capsule 1 Sig: Take 1 capsule by mouth one time a week. Qasim Patterson LPN September 06, 2024 7:20 AM [facility]02-26-[facility]25 Miscellaneous Notes* Telephone Encounter - Qasim Patterson LPN - 09/06/2024 7:20 AM EST Prescription Refill Information The patient has been identified by name and date of : Yes Caregiver verified no other encounters exist for this prescription request: Yes Caregiver confirmed with patient/requestor that no other refills are due, in the near future, with this provider at this time: Yes The last office visit in the department: 03/24/24 Does the patient have a future office visit with this provider/department: Yes Requested Prescriptions Pending Prescriptions Disp Refills cholecalciferol, Vitamin D3, (VITAMIN D3) 1,250 mcg (50,000 unit) cap capsule 12 capsule 1 Sig: Take 1 capsule by mouth one time a week. Qasim Patterson LPN September 06, 2024 7:20 AM * Telephone Encounter - Farzana Hodges - 09/05/2024 4:42 PM EST Prescription Refill Information The patient has been identified by name and date of : Yes Caregiver verified no other encounters exist for this prescription request: Yes Caregiver confirmed with patient/requestor that no other refills are due, in the near future, with this provider at this time: Yes The last office visit in the department: Does the patient have a future office visit with this provider/department: Yes Requested Prescriptions Pending Prescriptions Disp Refills cholecalciferol, Vitamin D3, (VITAMIN D3) 1,250 mcg (50,000 unit) cap capsule 12 capsule 1 Sig: Take 1 capsule by mouth one time a week. Farzana Fitzgerald September 05, 2024 4:42 PM documented [facility] encounter[facility] Telephone encounter Note * Telephone Encounter - Farzana Hodges - 09/05/2024 4:42 PM EST Prescription Refill Information The patient has been identified by name and date of : Yes Caregiver verified no other encounters exist for this prescription request: Yes Caregiver confirmed with patient/requestor that no other refills are due, in the near future, with this provider at this time: Yes The last office visit in the department: Does the patient have a future office visit with this provider/department: Yes Requested Prescriptions Pending Prescriptions Disp Refills cholecalciferol, Vitamin D3, (VITAMIN D3) 1,250 mcg (50,000 unit) cap capsule 12 capsule 1 Sig: Take 1 capsule by mouth one time a week. Farzana Fitzgerald September 05, 2024 4:42 PM [facility] NoteHNO ID: [id number] Author: XANDER WU PT Service: ? Author Type: Physical Therapist Type: Progress Notes Filed: 09/04/2024 11:27 Note Text: Episode Visit Count: 4 Therapist That Will Accept/Oversee The Plan Of Care: Xander Wu PT Start of Care Date: 08/14/24 Onset Date: 02/11/22 Plan of Care Certification Date: 08/14/24 Next Certification Due Date: 09/18/24 Patient Identified by Name and Date of : Yes REHABILITATION AND SPORTS THERAPY PHYSICAL THERAPY TREATMENT NOTE ASSESSMENT: Nora Camarillo tolerated the session with expected muscle soreness. She demonstrated improved knee ROM. The patient will continue to benefit from ongoing skilled physical therapy to progress toward set goals. PLAN FOR NEXT VISIT: Knee ROM and strengthening SUBJECTIVE: The pt does the exercises all day long. She ices the knee. Laying on the knee hurts. Bending the knee hurts. Can get off a chair without touching the arms of the chair. Pain: Pain Pain Level: 7 Pain Location: Knee - Right Post Treatment Pain Post Treatment Pain Level: 3 Post Treatment Pain Location: Knee - Right OBJECTIVE MEASURES WITH LEVEL OF FUNCTION: LE AROM R Knee Flexion: 105 Degrees TREATMENT: Therapeutic Exercise: 1: scifit stepper seat 13, level 1, 1:1 throughout subjective collected 5 min (1:1 time spent and subjective taken) 2: Standing knee flexion stretch on step x 10 3: 6 F step up x 7 4: Supine SLR 2 x 6 5: Standing 70% WB RLE heel raises 2 x 12 6: Knee ext stretch on step 2 x 10 7: Hooklying hip ADD iso 2 x 10 8: Seated knee flexion stretch 2 x 40 sec Skilled Intervention: Patient was educated in proper exercise technique and purpose for exercises. Provided written instruction for home exercise program to facilitate proper performance and compliance. Correct performance of therapeutic exercises was facilitated with verbal and visual cuing. Billing Therapeutic Exercise Treatment Minutes: 38 Skilled Treatment Time Minutes (timed and untimed codes): 38 Total Session Time (minutes): 38 Session Start Time : 1049 Session Stop Time : 1127 Xander Wu [facility]02-24-2025 History of Present illness Narrative* Xander Wu PT - 09/04/2024 10:50 AM EST Episode Visit Count: 4 Therapist That Will Accept/Oversee The Plan Of Care: Xander Wu PT Start of Care Date: 08/14/24 Onset Date: 02/11/22 Plan of Care Certification Date: 08/14/24 Next Certification Due Date: 09/18/24 Patient Identified by Name and Date of : Yes REHABILITATION AND SPORTS THERAPY PHYSICAL THERAPY TREATMENT NOTE ASSESSMENT: Nora Camarillo tolerated the session with expected muscle soreness. She demonstrated improved knee ROM. The patient will continue to benefit from ongoing skilled physical therapy to progresstoward set goals. PLAN FOR NEXT VISIT: Knee ROM and strengthening SUBJECTIVE: The pt does the exercises all day long. She ices the knee. Laying on the knee hurts. Bending the knee hurts. Can get off a chair without touching the arms of the chair. Pain: Pain Pain Level: 7 Pain Location: Knee - Right Post Treatment Pain Post Treatment Pain Level: 3 Post Treatment Pain Location: Knee - Right OBJECTIVE MEASURES WITH LEVEL OF FUNCTION: LE AROM R Knee Flexion: 105 Degrees TREATMENT: Therapeutic Exercise: 1: scifit stepper seat 13, level 1, 1:1 throughout subjective collected 5 min (1:1 time spent and subjective taken) 2: Standing knee flexion stretch on step x 10 3: 6 F step up x 7 4: Supine SLR 2 x 6 5: Standing 70% WB RLE heel raises 2 x 12 6: Knee ext stretch on step 2 x 10 7: Hooklying hip ADD iso 2 x 10 8: Seated knee flexion stretch 2 x 40 sec Skilled Intervention: Patient was educated in proper exercise technique and purpose for exercises. Provided written instruction for home exercise program to facilitate proper performance and compliance. Correct performance of therapeutic exercises was facilitated with verbal and visual cuing. Billing Therapeutic Exercise Treatment Minutes: 38 Skilled Treatment Time Minutes (timed and untimed codes): 38 Total Session Time (minutes): 38 Session Start Time : 1049 Session Stop Time : 1127 Xander Wu PT [facility] NoteHNO ID: [id number] Author: BRYSON DHILLON MD Service: ? Author Type: Physician Type: Progress Notes Filed: 09/04/2024 12:29 Note Text: Bryson Dhillon MD Department of Orthopaedics Orthopaedics [address] [facility] [address] Dept: [phone] Dept September 04, 2024 CHIEF COMPLAINT: Established Patient and Post Op of the Right Knee. HPI Patient is 5 weeks 5 days post op robotic assisted right TKA. Patient thought she would be further along than what she is. Still having occasional pain. ASSESSMENT: Z96.651 S/P total knee arthroplasty, right (primary encounter diagnosis) SUMMARY/PLAN: Coming along very nicely. Will see her back in 6 weeks. Exam: Incision healed nicely. Motion is lacking just a few degrees of terminal extension and she has about 110 degrees of flexion. Supporting Information Below: Medications: Current Outpatient Medications Medication Sig acetaminophen (TYLENOL) 500 mg tablet Take 2 tablets by mouth every 8 hours as needed for pain. cholecalciferol, Vitamin D3, (VITAMIN D3) 1,250 mcg (50,000 unit) cap capsule Take 1 capsule by mouth one time a week. albuterol HFA (VENTOLIN HFA) 90 mcg/actuation inhaler Inhale 2 Puffs as instructed every 4 hours as needed. Zolpidem (AMBIEN CR) 12.5 mg CR tablet Take 1 tablet by mouth at bedtime as needed for sedation for up to 90 days. Patient should start on April 27, 2024. montelukast (SINGULAIR) 10 mg tablet Take 1 tablet by mouth daily at bedtime. ascorbic acid, vitamin C, (VITAMIN C) 500 mg tablet Take 1 tablet by mouth two times a day with meals for 27 doses. aspirin, enteric coated (ASPIRIN, ENTERIC COATED) 81 mg EC tablet Take 1 tablet by mouth two times a day for 28 days. nystatin (NYSTOP) powder Apply 1 application to affected area three times daily. to affected area as needed (Patient taking differently: Apply 1 application to affected area three times a day. to affected area as needed- for rah on thighs) No current facility-administered medications for this visit. Allergies: Morphine, Nsaids (Non-Steroidal Anti-Inflammatory Drug), Advair Diskus [Fluticasone Propion-Salmeterol], Bentyl [Dicyclomine Hcl], Celebrex [Celecoxib], Dicyclomine, Estrace [Estradiol], Evista [Raloxifene Hcl], Macrobid [Nitrofurantoin Monohyd/M-Cryst], Medrol [Methylprednisolone], Mobic [Meloxicam], Oxycontin [Oxycodone Hcl], Penicillins, Prozac [Fluoxetine Hcl], Sulfamethizole, and Symax-Sl [Hyoscyamine Sulfate] [facility] History of Present illness Narrative* Bryson Dhillon MD - 09/04/2024 9:57 AM EST Bryson Dhillon MD Department of Orthopaedics Orthopaedics [address] [facility] [address] Dept: [phone] Dept September 04, 2024 CHIEF COMPLAINT: Established Patient and Post Op of the Right Knee. HPI Patient is 5 weeks 5 days post op robotic assisted right TKA. Patient thought she would be further along than what she is. Still having occasional pain. ASSESSMENT: Z96.651 S/P total knee arthroplasty, right (primary encounter diagnosis) SUMMARY/PLAN: Coming along very nicely. Will see her back in 6 weeks. Exam: Incision healed nicely. Motion is lacking just a few degrees of terminal extension and she has about 110 degrees of flexion. Supporting Information Below: Medications: Current Outpatient Medications Medication Sig acetaminophen (TYLENOL) 500 mg tablet Take 2 tablets by mouth every 8 hours as needed for pain. cholecalciferol, Vitamin D3, (VITAMIN D3) 1,250 mcg (50,000 unit) cap capsule Take 1 capsule by mouth one time a week. albuterol HFA (VENTOLIN HFA) 90 mcg/actuation inhaler Inhale 2 Puffs as instructed every 4 hours asneeded. Zolpidem (AMBIEN CR) 12.5 mg CR tablet Take 1 tablet by mouth at bedtime as needed for sedation forup to 90 days. Patient should start on April 27, 2024. montelukast (SINGULAIR) 10 mg tablet Take 1 tablet by mouth daily at bedtime. ascorbic acid, vitamin C, (VITAMIN C) 500 mg tablet Take 1 tablet by mouth two times a day with meals for 27 doses. aspirin, enteric coated (ASPIRIN, ENTERIC COATED) 81 mg EC tablet Take 1 tablet by mouth two times a day for 28 days. nystatin (NYSTOP) powder Apply 1 application to affected area three times daily. to affected area as needed (Patient taking differently: Apply 1 application to affected area three times a day. to affected area as needed- for rah on thighs) No current facility-administered medications for this visit. Allergies: Morphine, Nsaids (Non-Steroidal Anti-Inflammatory Drug), Advair Diskus [Fluticasone Propion-Salmeterol], Bentyl [Dicyclomine Hcl], Celebrex [Celecoxib], Dicyclomine, Estrace [Estradiol], Evista [Raloxifene Hcl], Macrobid [Nitrofurantoin Monohyd/M-Cryst], Medrol [Methylprednisolone], Mobic [Meloxicam], Oxycontin [Oxycodone Hcl], Penicillins, Prozac [Fluoxetine Hcl], Sulfamethizole, and Symax-Sl [Hyoscyamine Sulfate] Bryson Dhillon MD [facility] History of Present illness Narrative* Lissa Lira, PT - 08/28/2024 3:59 PM EST Program_ID:[id number] Access Code: [email or web address] URL: [email or web address] Date: 08-28-2024 Prepared By: Lissa Lira Program Notes Exercises - Standing Quad Set - 1 x daily - 7 x weekly - 4 sets - 15 reps - Standing Knee Flexion - 1 x daily - 7 x weekly - 4 sets - 15 reps - Standing Hip Abduction - 1 x daily - 7 x weekly - 4 sets - 15 reps * Lissa Lira, PT - 08/28/2024 3:15 PM EST Episode Visit Count: 3 Therapist That Will Accept/Oversee The Plan Of Care: Xander uW PT Start of Care Date: 08/14/24 Onset Date: 02/11/22 Plan of Care Certification Date: 08/14/24 Next Certification Due Date: 09/18/24 REHABILITATION AND SPORTS THERAPY PHYSICAL THERAPY TREATMENT NOTE ASSESSMENT: Nora Camarillo tolerated the session with decreased symptoms. She demonstrated difficulty with slowing the tempo of her standing hip and quad strengthening exercises when given cues to complete slowly with upright trunk posture. The patient will continue to benefit from ongoing skilled physical therapy to progress toward set goals. PLAN FOR NEXT VISIT: SUBJECTIVE: If it would just break loose Patient Goals: Wants to be able to get around [employer] Functional Limitations: walking, stair negotiation Pain: Pain Pain Level: 3 Pain Location: Knee - Right Description: Stiffness OBJECTIVE MEASURES WITH LEVEL OF FUNCTION: TREATMENT: Therapeutic Exercise: 1: scifit stepper seat 13, level 1, 1:1 throughout subjective collected 5 min 2: TKE with orange band, standing, chair UR support 3x15 3: *Access Code: [email or web address] URL: [email or web address] Date: 08/28/2024 Prepared by: Lissa Donovan Exercises - Standing Quad Set - 1 x daily - 7 x weekly - 4 sets - 15 reps - Standing Knee Flexion - 1 x daily - 7 x weekly - 4 sets - 15 reps Skilled Intervention: Patient was educated in proper exercise technique and purpose for exercises. Skilled judgment was used in selection of appropriate interventions. Provided written instruction for home exercise program to facilitate proper performance and compliance. Correct performance of therapeutic exercises was facilitated with verbal, visual, and tactile cuing. Educated patient on rationale for performing exercises in regards to decreasing fatigue , includingbalance, increase ease of ADL, and ROM and function . Patient education as noted. Neuromuscular Re-Education: 1: foam static standard stance standing foam 30 sec 2: foam static standing romberg 30 sec EO 3: foam static standing romberg 30 sec EC Skilled Intervention: Skilled judgment used to assess appropriate program for balance and coordination activity. Education in proprioceptive/kinesthetic awareness during dynamic activities. Reviewed and educated patient on additions/changes for home program as noted above with an (*). Gait Training: Distance (feet): 160 + 160' Gait Cues: amb with SC, heel strike to toe push off pattern Assistive Device: SC Assist Level: verbal and visual cues Skilled Intervention: Patient was provided supervision during pre-gait/gait training to prevent falls and insure safety. Gait belt utilized during session for safety. Self-Senior Living Management: 1: discussed using SC to improve gait pattern and avoid developing an abnormal gait pattern 2: discussed completing standing hip exercises slowly for stabilization strengthening benefit Skilled Intervention: Skilled judgment in the selection of proper modification for activity of daily living/home management based on clinical presentation, deficits, and needs. Provided written instruction for activities of daily living techniques to facilitate proper performance and compliance. Reviewed patient specific diagnosis in relation to activities of daily living/home management. Activity progression based on professional judgement. Moderate verbal cues for maintaining neutral spine alignment. Provided written instruction for home program to facilitate proper performance and compliance. Billing Therapeutic Exercise Treatment Minutes: 15 Neuromuscular Re-Education Treatment Minutes: 5 Self-Care/Home Management Treatment Minutes: 5 Gait Training Treatment Minutes: 20 Skilled Treatment Time Minutes (timed and untimed codes): 40 Total Session Time (minutes): 45 Session Start Time : 1515 Session Stop Time : 1600 Lissa Lira PT [facility]25 NoteHNO ID: [id number] Author: LISSA LIRA PT Service: ? Author Type: Physical Therapist Type: Progress Notes Filed: 08/28/2024 16:01 Note Text: Episode Visit Count: 3 Therapist That Will Accept/Oversee The Plan Of Care: Xander Wu PT Start of Care Date: 08/14/24 Onset Date: 02/11/22 Plan of Care Certification Date: 08/14/24 Next Certification Due Date: 09/18/24 REHABILITATION AND SPORTS THERAPY PHYSICAL THERAPY TREATMENT NOTE ASSESSMENT: Nora Camarillo tolerated the session with decreased symptoms. She demonstrated difficulty with slowing the tempo of her standing hip and quad strengthening exercises when given cues to complete slowly with upright trunk posture. The patient will continue to benefit from ongoing skilled physical therapy to progress toward set goals. PLAN FOR NEXT VISIT: SUBJECTIVE: If it would just break loose Patient Goals: Wants to be able to get around [employer] Functional Limitations: walking, stair negotiation Pain: Pain Pain Level: 3 Pain Location: Knee - Right Description: Stiffness OBJECTIVE MEASURES WITH LEVEL OF FUNCTION: TREATMENT: Therapeutic Exercise: 1: scifit stepper seat 13, level 1, 1:1 throughout subjective collected 5 min 2: TKE with orange band, standing, chair UR support 3x15 3: *Access Code: [email or web address] URL: [email or web address] Date: 08/28/2024 Prepared by: Lissa Lira Exercises - Standing Quad Set - 1 x daily - 7 x weekly - 4 sets - 15 reps - Standing Knee Flexion - 1 x daily - 7 x weekly - 4 sets - 15 reps Skilled Intervention: Patient was educated in proper exercise technique and purpose for exercises. Skilled judgment was used in selection of appropriate interventions. Provided written instruction for home exercise program to facilitate proper performance and compliance. Correct performance of therapeutic exercises was facilitated with verbal, visual, and tactile cuing. Educated patient on rationale for performing exercises in regards to decreasing fatigue , including balance, increase ease of ADL, and ROM and function . Patient education as noted. Neuromuscular Re-Education: 1: foam static standard stance standing foam 30 sec 2: foam static standing romberg 30 sec EO 3: foam static standing romberg 30 sec EC Skilled Intervention: Skilled judgment used to assess appropriate program for balance and coordination activity. Education in proprioceptive/kinesthetic awareness during dynamic activities. Reviewed and educated patient on additions/changes for home program as noted above with an (*). Gait Training: Distance (feet): 160 + 160' Gait Cues: amb with SC, heel strike to toe push off pattern Assistive Device: SC Assist Level: verbal and visual cues Skilled Intervention: Patient was provided supervision during pre-gait/gait training to prevent falls and insure safety. Gait belt utilized during session for safety. Self-Senior Living Management: 1: discussed using SC to improve gait pattern and avoid developing an abnormal gait pattern 2: discussed completing standing hip exercises slowly for stabilization strengthening benefit Skilled Intervention: Skilled judgment in the selection of proper modification for activity of daily living/home management based on clinical presentation, deficits, and needs. Provided written instruction for activities of daily living techniques to facilitate proper performance and compliance. Reviewed patient specific diagnosis in relation to activities of daily living/home management. Activity progression based on professional judgement. Moderate verbal cues for maintaining neutral spine alignment. Provided written instruction for home program to facilitate proper performance and compliance. Billing Therapeutic Exercise Treatment Minutes: 15 Neuromuscular Re-Education Treatment Minutes: 5 Self-Care/Home Management Treatment Minutes: 5 Gait Training Treatment Minutes: 20 Skilled Treatment Time Minutes (timed and untimed codes): 40 Total Session Time (minutes): 45 Session Start Time : 1515 Session Stop Time : 1600 Lissa Lira [facility]02-10-2025 NoteHNO ID: [id number] Author: LISSA LIRA PT Service: ? Author Type: Physical Therapist Type: Progress Notes Filed: 08/21/2024 16:02 Note Text: Episode Visit Count: 2 Therapist That Will Accept/Oversee The Plan Of Care: Xander Wu PT Start of Care Date: 08/14/24 Onset Date: 02/11/22 Plan of Care Certification Date: 08/14/24 Next Certification Due Date: 09/18/24 REHABILITATION AND SPORTS THERAPY PHYSICAL THERAPY TREATMENT NOTE ASSESSMENT: Nora Camarillo tolerated the session with fatigue. She demonstrated improvements in gait pattern when given cues to walking with the LE and cane in sync. The patient will continue to benefit from ongoing skilled physical therapy to progress toward set goals. Current Frequency: 2x/week PLAN FOR NEXT VISIT: SUBJECTIVE: Presents with SC. HEP going well. Pt. says she has trouble getting comfortable. Patient Goals: Wants to be able to get around [employer] Functional Limitations: walking, stair negotiation Pain: Pain Pain Location: Knee - Right Description: Stiffness OBJECTIVE MEASURES WITH LEVEL OF FUNCTION: TREATMENT: Therapeutic Exercise: 1: [employer] stepper seat 13, level 1, 1:1 throughout subjective collected 5 min 2: seated partial arc quad 3x12 3: standing quad sets holding SC 3x12 Skilled Intervention: Patient was educated in proper exercise technique and purpose for exercises. Skilled judgment was used in selection of appropriate interventions. Correct performance of therapeutic exercises was facilitated with verbal, visual, and tactile cuing. Educated patient on rationale for performing exercises in regards to decreasing fatigue , including balance, increase ease of ADL, and ROM and function . Patient education as noted. Gait Training: Distance (feet): 160' 4x Gait Cues: upright posture, swing through, Assistive Device: SC Assist Level: verbal cues and SBA Skilled Intervention: Patient was provided stand by assist during pre-gait/gait training to prevent falls and insure safety. Facilitated proper gait cycle with the use of verbal, visual, and tactile cues for correction of gait deviations identified in the objective section above. Skilled judgment used to assess selection, proper sizing, and proper use of assistive device. Correct performance of home program was facilitated with verbal, tactile, and visual cueing. Self-Senior Living Management: 1: encouraged continued cane use to restore gait pattern 2: encouraged pt. to take her medication prior PT visit and to sleep as needed 3: encouraged continued use of ice 4: discussed that it will take at least 1 year for pt. to feel back to normal. Skilled Intervention: Skilled judgment in the selection of proper modification for activity of daily living/home management based on clinical presentation, deficits, and needs. Reviewed patient specific diagnosis in relation to activities of daily living/home management. Activity progression based on professional judgement. Moderate verbal cues for maintaining neutral spine alignment. Correct performance of home program was facilitated with verbal, visual, and tactile cueing. Billing Therapeutic Exercise Treatment Minutes: 20 Self-Care/Home Management Treatment Minutes: 5 Gait Training Treatment Minutes: 15 Skilled Treatment Time Minutes (timed and untimed codes): 40 Total Session Time (minutes): 40 Session Start Time : 1521 Session Stop Time : 1601 Lissa Lira, [facility]02-10-2025 History of Present illness Narrative* Lissa Lira, PT - 08/21/2024 3:23 PM EST Episode Visit Count: 2 Therapist That Will Accept/Oversee The Plan Of Care: Xander Wu PT Start of Care Date: 08/14/24 Onset Date: 02/11/22 Plan of Care Certification Date: 08/14/24 Next Certification Due Date: 09/18/24 REHABILITATION AND SPORTS THERAPY PHYSICAL THERAPY TREATMENT NOTE ASSESSMENT: Nora Camarillo tolerated the session with fatigue. She demonstrated improvements in gait pattern when given cues to walking with the LE and cane in sync. The patient will continue to benefitfrom ongoing skilled physical therapy to progress toward set goals. Current Frequency: 2x/week PLAN FOR NEXT VISIT: SUBJECTIVE: Presents with SC. HEP going well. Pt. says she has trouble getting comfortable. Patient Goals: Wants to be able to get around [employer] Functional Limitations: walking, stair negotiation Pain: Pain Pain Location: Knee - Right Description: Stiffness OBJECTIVE MEASURES WITH LEVEL OF FUNCTION: TREATMENT: Therapeutic Exercise: 1: scifit stepper seat 13, level 1, 1:1 throughout subjective collected 5 min 2: seated partial arc quad 3x12 3: standing quad sets holding SC 3x12 Skilled Intervention: Patient was educated in proper exercise technique and purpose for exercises. Skilled judgment was used in selection of appropriate interventions. Correct performance of therapeutic exercises was facilitated with verbal, visual, and tactile cuing. Educated patient on rationale for performing exercises in regards to decreasing fatigue , includingbalance, increase ease of ADL, and ROM and function . Patient education as noted. Gait Training: Distance (feet): 160' 4x Gait Cues: upright posture, swing through, Assistive Device: SC Assist Level: verbal cues and SBA Skilled Intervention: Patient was provided stand by assist during pre-gait/gait training to preventfalls and insure safety. Facilitated proper gait cycle with the use of verbal, visual, and tactile cues for correction of gait deviations identified in the objective section above. Skilled judgment used to assess selection, proper sizing, and proper use of assistive device. Correct performance of home program was facilitated with verbal, tactile, and visual cueing. Self-Senior Living Management: 1: encouraged continued cane use to restore gait pattern 2: encouraged pt. to take her medication prior PT visit and to sleep as needed 3: encouraged continued use of ice 4: discussed that it will take at least 1 year for pt. to feel back to normal. Skilled Intervention: Skilled judgment in the selection of proper modification for activity of daily living/home management based on clinical presentation, deficits, and needs. Reviewed patient specific diagnosis in relation to activities of daily living/home management. Activity progression based on professional judgement. Moderate verbal cues for maintaining neutral spine alignment. Correct performance of home program was facilitated with verbal, visual, and tactile cueing. Billing Therapeutic Exercise Treatment Minutes: 20 Self-Care/Home Management Treatment Minutes: 5 Gait Training Treatment Minutes: 15 Skilled Treatment Time Minutes (timed and untimed codes): 40 Total Session Time (minutes): 40 Session Start Time : 1521 Session Stop Time : 1601 Lissa Lira PT [facility] Telephone encounter Note * Telephone Encounter - Lidya Huerta LPN - 08/14/2024 12:57 PM EST Patient phones requesting refills as follows: Patient will also need refill on vitamin C if she is to continue. Requested Prescriptions Pending Prescriptions Disp Refills oxyCODONE IR (ROXICODONE) 5 mg immediate release tablet 35 tablet 0 Sig: Take 1 tablet by mouth every 6 hours as needed for pain for up to 9 days. ascorbic acid, vitamin C, (VITAMIN C) 500 mg tablet 27 tablet 0 Sig: Take 1 tablet by mouth two times a day with meals for 27 doses. Please review and advise. Lidya Huerta LPN [facility]02-03-2025 Miscellaneous Notes* Telephone Encounter - Lidya Huerta LPN - 08/14/2024 12:57 PM EST Patient phones requesting refills as follows: Patient will also need refill on vitamin C if she is to continue. Requested Prescriptions Pending Prescriptions Disp Refills oxyCODONE IR (ROXICODONE) 5 mg immediate release tablet 35 tablet 0 Sig: Take 1 tablet by mouth every 6 hours as needed for pain for up to 9 days. ascorbic acid, vitamin C, (VITAMIN C) 500 mg tablet 27 tablet 0 Sig: Take 1 tablet by mouth two times a day with meals for 27 doses. Please review and advise. Lidya Huerta LPN [facility] NoteHNO ID: [id number] Author: XANDER WU PT Service: ? Author Type: Physical Therapist Type: Progress Notes Filed: 09/12/2024 10:47 Note Text: Episode Visit Count: 1 Therapist That Will Accept/Oversee The Plan Of Care: Xander Wu PT Start of Care Date: 08/14/24 Onset Date: 02/11/22 Plan of Care Certification Date: 08/14/24 Next Certification Due Date: 09/18/24 Patient Identified by Name and Date of : Yes REHABILITATION AND SPORTS THERAPY PHYSICAL THERAPY EVALUATION PLAN OF CARE: Assessment: Nora Camarillo presents with diagnosis of R TKR on 07/26/24 that interferes with walking, stair negotiation . The patient presents with impairments in ADL's, gait, independence in exercise, overall function, range of motion, and strength. PROMIS? (Patient-Reported Outcomes Measurement Information System) scores were reviewed and identified as a rehabilitation concern. Prognosis for therapy is Good due to: current objective clinical presentation . The patient will benefit from skilled therapy services to meet the goals established for this plan of care as noted below. Goals for Episode of Care: established 08/14/24 [place] in home exercise program. Patient will decrease pain rating by 2 points to meet minimal clinical important difference for numeric pain rating scale. Pt will demo a score of 12 reps without UE support during the 30 sec chair stand test in 3 months or less to demonstrates improved LE functional strength Increase ROM of R knee to 0-120 degrees of flexion for ease of sleeping and stair negotiation Increased strength of RLE to 5/5 for return to PLOF and walking without an AD Normal gait. Reciprocal stair negotiation. Patient Goals: Wants to be able to get around [employer] Time Frame for Goals and Treatment : 11/06/24 Planned Interventions, Frequency, and Duration: Current Frequency: 2x/week Duration: 4 weeks Total Number of Visits Planned: 8 Planned Treatment Interventions: Therapeutic exercise (52669), Manual therapy (37747), Neuromuscular re-education (78964), Therapeutic activities (66308), Self-retirement management (22945), Gait Training (40034), Patient/Family/Caregiver Education PLAN FOR NEXT VISIT: STS, knee flexion stretch on step, knee ext stretch as tolerated Patient demonstrates good understanding of plan of care and treatment. The above goals and plan of care were discussed and agreed upon by patient/family. SUBJECTIVE: Had a TKR on 07/26. Doing pretty well in terms of the pain but the knee is more stiff. Pt had home therapy visits. Maybe 8 visits of home therapy. Can get dizzy. Patient Goals: Wants to be able to get around [employer] Functional Limitations: walking, stair negotiation Prior Level of Function: Independent without limitations Home Environment Patient Lives With: Spouse Assistance Available: 24-Hour Home Type: [place] Entry To Home: Stairs, Without Rail Number Of Stairs Into Home: 1 Equipment Owned: Walker- Standard, Cane Intake Information: Prescription present Previous Treatment: Physical Therapy , Surgery Pain: Pain Pain Level: 5 Pain Location: Knee - Right Description: Stiffness PROMIS Scales 08/14/2024 Higher is Better Self-Eff Symptom - T Score 34 (Low) Self-Eff Symptom - Percentile 5 Mobility - T Score 34 (moderate dysfunction) Mobility - Percentile 5 T-scores: mean of general population = 50. 5 points is clinically meaningfully difference Percentiles provide an indication of how the patient's score ranks in relation to the general population. Higher percentile rankings indicate better function/quality of life. 50th percentile is the average of the general population and indicates half of respondents had a worse score. OBJECTIVE MEASURES WITH LEVEL OF FUNCTION: Knee Observations R Knee Presents with: Incision LE AROM R Knee Extension: -8 Degrees R Knee Flexion: 89 Degrees LE Strength R Hip Extension: 3+/5 R Hip Flexion (L2): 3+/5 R Knee Extension (L3): 3+/5 R Knee Flexion: 3+/5 R Ankle Dorsiflexion (L4): 4/5 Gait Weight Bearing Status: WBAT Gait: Modified Independent Gait Distance (feet): 20 Gait Device: Wheeled Walker Gait Deviations: Right Lower Extremity Gait Deviations Right Lower Extremity: Weight bearing decreased, Step length decreased, Stance time decreased Stairs: Unable to climb stairs in a reciprocal fashion Functional Performance Test Results 30 Second Chair Stand Test: 6 reps (Using BUE arms of chair to assist) Education: Education Learning Preferences: Demonstration, Explanation, Performance, Printed Materials Barriers: None Learning/educational needs: Home exercise program, Plan of Care, Changes in Plan of Care Education Provided: Yes, see treatment interventions for education provided Education Provided To: Patient Education Mode/Type: Demonstration, Explanation/Discussion, Literature/Printed Materials, Performance Response to Educ (more content not included)...[facility] 08-14-2024 History of Present illness Narrative* Xander Wu PT - 08/14/2024 10:01 AM EST Episode Visit Count: 1 Therapist That Will Accept/Oversee The Plan Of Care: Xander Wu PT Start of Care Date: 08/14/24 Onset Date: 02/11/22 Plan of Care Certification Date: 08/14/24 Next Certification Due Date: 09/18/24 Patient Identified by Name and Date of : Yes REHABILITATION AND SPORTS THERAPY PHYSICAL THERAPY EVALUATION PLAN OF CARE: Assessment: Nora Camarillo presents with diagnosis of R TKR on 07/26/24 that interferes with walking, stair negotiation . The patient presents with impairments in ADL's, gait, independence in exercise, overall function, range of motion, and strength. PROMIS (Patient-Reported Outcomes Measurement Information System) scores were reviewed and identified as a rehabilitation concern. Prognosis for therapyis Good due to: current objective clinical presentation . The patient will benefit from skilled therapy services to meet the goals established for this plan of care as noted below. Goals for Episode of Care: established 08/14/24 [place] in home exercise program. Patient will decrease pain rating by 2 points to meet minimal clinical important difference for numeric pain rating scale. Pt will demo a score of 12 reps without UE support during the 30 sec chair stand test in 3 months or less to demonstrates improved LE functional strength Increase ROM of R knee to 0-120 degrees of flexion for ease of sleeping and stair negotiation Increased strength of RLE to 5/5 for return to PLOF and walking without an AD Normal gait. Reciprocal stair negotiation. Patient Goals: Wants to be able to get around [employer] Time Frame for Goals and Treatment : 11/06/24 Planned Interventions, Frequency, and Duration: Current Frequency: 2x/week Duration: 4 weeks Total Number of Visits Planned: 8 Planned Treatment Interventions: Therapeutic exercise (32141), Manual therapy (72535), Neuromuscular re-education (49250), Therapeutic activities (03913), Self-retirement management (63691), Gait Training (65471), Patient/Family/Caregiver Education PLAN FOR NEXT VISIT: STS, knee flexion stretch on step, knee ext stretch as tolerated Patient demonstrates good understanding of plan of care and treatment. The above goals and plan of care were discussed and agreed upon by patient/family. SUBJECTIVE: Had a TKR on 07/26. Doing pretty well in terms of the pain but the knee is more stiff. Pt had home therapy visits. Maybe 8 visits of home therapy. Can get dizzy. Patient Goals: Wants to be able to get around [employer] Functional Limitations: walking, stair negotiation Prior Level of Function: Independent without limitations Home Environment Patient Lives With: Spouse Assistance Available: 24-Hour Home Type: [place] Entry To Home: Stairs, Without Rail Number Of Stairs Into Home: 1 Equipment Owned: Walker- Standard, Cane Intake Information: Prescription present Previous Treatment: Physical Therapy , Surgery Pain: Pain Pain Level: 5 Pain Location: Knee - Right Description: Stiffness PROMIS Scales 08/14/2024 Higher is Better Self-Eff Symptom - T Score 34 (Low) Self-Eff Symptom - Percentile 5 Mobility - T Score 34 (moderate dysfunction) Mobility - Percentile 5 T-scores: mean of general population = 50. 5 points is clinically meaningfully difference Percentiles provide an indication of how the patient's score ranks in relation to the general population. Higher percentile rankings indicate better function/quality of life. 50th percentile is the average of the general population and indicates half of respondents had a worse score. OBJECTIVE MEASURES WITH LEVEL OF FUNCTION: Knee Observations R Knee Presents with: Incision LE AROM R Knee Extension: -8 Degrees R Knee Flexion: 89 Degrees LE Strength R Hip Extension: 3+/5 R Hip Flexion (L2): 3+/5 R Knee Extension (L3): 3+/5 R Knee Flexion: 3+/5 R Ankle Dorsiflexion (L4): 4/5 Gait Weight Bearing Status: WBAT Gait: Modified Independent Gait Distance (feet): 20 Gait Device: Wheeled Walker Gait Deviations: Right Lower Extremity Gait Deviations Right Lower Extremity: Weight bearing decreased, Step length decreased, Stance timedecreased Stairs: Unable to climb stairs in a reciprocal fashion Functional Performance Test Results 30 Second Chair Stand Test: 6 reps (Using BUE arms of chair to assist) Education: Education Learning Preferences: Demonstration, Explanation, Performance, Printed Materials Barriers: None Learning/educational needs: Home exercise program, Plan of Care, Changes in Plan of Care Education Provided: Yes, see treatment interventions for education provided Education Provided To: Patient Education Mode/Type: Demonstration, Explanation/Discussion, Literature/Printed Materials, Performance Response to Education/Teach Back: States/Identifies, Return Demonstration TREATMENT: PT Treatment Interventions: Therapeutic Exercise Evaluation Therapeutic Exercise: 1: Discussed exam findings, purpose of the HEP and the HEP handout was provided to the pt. HEP discussed in detail with how to safely and properly perform each therapeutic exercise. 2: Supine knee ext stretch 2 x 10 sec holds 3: STS x 7 reps from higher than average seat height 4: Seated LAQ x 10 Skilled Intervention: Patient was educated in proper exercise technique and purpose for exercises. Skilled judgment was used in selection of appropriate interventions. Provided written instruction for home exercise program to facilitate proper performance and compliance. Correct performance of therapeutic exercises was facilitated with verbal and visual cuing. Billing * Evaluation Low Complexity: 1 Unit Therapeutic Exercise Treatment Minutes: 23 Skilled Treatment Time Minutes (timed and untimed codes): 44 Total Session Time (minutes): 44 Session Start Time : 1001 Session Stop Time : 1045 Xander Wu PT [facility] Miscellaneous Notes* PT DISCHARGE - Jazzy Pereira, PT - 08/11/2024 2:46 PM EST SITUATION: spouse present during today's visit. patient reports the following since the last homecare visit: medications/allergies--no changes, no fall. patient reports that seh is doign really well . BACKGROUND: Diagnoses (reason for Home Care): RTKR Weight Bearing/Precaution Changes: no changes ASSESSMENT: Focus of visit patient using cane upon my arrival on incorrect side and w/ it set too high for her. Adjusted height again and demonstrates incorrect sequencing. When i corrected and gave visual instructions she insists that she was shown that way . Pt could not do the correct sequencingand actually was able to do a correct recip heel toe pattern with no ad Modifired exercises today to only RLR vs Bilateral so patient does not have as much soreness after. AAROM 4- 100 . Physical therapy discharged: goals achieved. Functional performance at discharge - bed mobility independent, transfers independent, ambulation independent and stairs independent. Plan of care, goals, and discharge reviewed and agreed upon with patient and/or caregiver. RECOMMENDATION: Patient discharged from home health services. Instructions to include:begin outpatient therapy on 08/14/24 See intervention summary for intervention/education details. [facility] Patient's home Note* PT DISCHARGE - Jazzy Pereira, PT - 08/11/2024 2:46 PM EST SITUATION: spouse present during today's visit. patient reports the following since the last homecare visit: medications/allergies--no changes, no fall. patient reports that seh is doign really well . BACKGROUND: Diagnoses (reason for Home Care): RTKR Weight Bearing/Precaution Changes: no changes ASSESSMENT: Focus of visit patient using cane upon my arrival on incorrect side and w/ it set too high for her. Adjusted height again and demonstrates incorrect sequencing. When i corrected and gave visual instructions she insists that she was shown that way . Pt could not do the correct sequencingand actually was able to do a correct recip heel toe pattern with no ad Modifired exercises today to only RLR vs Bilateral so patient does not have as much soreness after. AAROM 4- 100 . Physical therapy discharged: goals achieved. Functional performance at discharge - bed mobility independent, transfers independent, ambulation independent and stairs independent. Plan of care, goals, and discharge reviewed and agreed upon with patient and/or caregiver. RECOMMENDATION: Patient discharged from home health services. Instructions to include:begin outpatient therapy on 08/14/24 See intervention summary for intervention/education details. [facility] Work Phone: 1(329) 666-997001-30-2025 Miscellaneous Notes* PT ROUTINE/REASSESSMENT/RECERT/CASE MGMT - Sallie Hi, ENVELOPE PATTERNMAKER - 08/10/2024 1:20 PM EST SITUATION: spouse present during today's visit. patient reports the following since the last homecare visit: medications/allergies--no changes, no fall. patient reports she had increased pain the night of last PT visit and could not sleep. States since then she has been doing her exercises in several bouts throughout the day vs all at one time. States she does not have as much soreness after when she does them throughout the day. States she can still only do extension stretch for 1 min at a time Also reports she started using cane this morning.. BACKGROUND: Diagnoses (reason for Home Care): RTKR Weight Bearing/Precaution Changes: no changes ASSESSMENT: Focus of visit patient using cane upon my arrival on incorrect side and w/ it set too high for her.Adjusted height and gave visual and verbal instructions in correct use. Patient stated she felt much steadier when using it correctly. Modifired exercises today to only RLR vs Bilateral so patient does not have as much soreness after. Patient stated she would do the other leg a little later today. AAROM 4-100 Plan of care, goals, and visit frequency reviewed and agreed upon with patient and/or caregiver. Current Discharge Plan: outpatient rehab Anticipate discharge by 08/11/24 RECOMMENDATION: Next visit to focus on PT to see for DC See intervention summary for intervention/education details. [facility] encounter[facility]01[facility] Patient's home Note* PT ROUTINE/REASSESSMENT/RECERT/CASE MGMT - Sallie Hi PTA - 08/10/2024 1:20 PM EST SITUATION: spouse present during today's visit. patient reports the following since the last homecare visit: medications/allergies--no changes, no fall. patient reports she had increased pain the night of last PT visit and could not sleep. States since then she has been doing her exercises in several bouts throughout the day vs all at one time. States she does not have as much soreness after when she does them throughout the day. States she can still only do extension stretch for 1 min at a time Also reports she started using cane this morning.. BACKGROUND: Diagnoses (reason for Home Care): RTKR Weight Bearing/Precaution Changes: no changes ASSESSMENT: Focus of visit patient using cane upon my arrival on incorrect side and w/ it set too high for her.Adjusted height and gave visual and verbal instructions in correct use. Patient stated she felt much steadier when using it correctly. Modifired exercises today to only RLR vs Bilateral so patient does not have as much soreness after. Patient stated she would do the other leg a little later today. AAROM 4-100 Plan of care, goals, and visit frequency reviewed and agreed upon with patient and/or caregiver. Current Discharge Plan: outpatient rehab Anticipate discharge by 08/11/24 RECOMMENDATION: Next visit to focus on PT to see for DC See intervention summary for intervention/education details. [facility] Work Phone: [phone]) 831-108701-28-2025 Miscellaneous Notes* PT ROUTINE/REASSESSMENT/RECERT/CASE MGMT - Sallie Hi PTA - 08/08/2024 11:47 AM EST SITUATION: spouse present during today's visit. patient reports the following since the last homecare visit: medications/allergies--no changes, no fall. patient reports he dr appointment went really good. Has refill of pain meds but not picked up yet. Stated she duscuss walking w/ cane and that she does not feel stable w/out walker. Rebekah told me to use the walker as long as I feel that i need it. . BACKGROUND: Diagnoses (reason for Home Care): RTKR Weight Bearing/Precaution Changes: no changes ASSESSMENT: Focus of visit progressed standing exercise to bilateral for HEP. Gait training w/ ww including 1 step to exit/enter home. PROM 94 post stretches. Issued NOMNC Plan of care, goals, and visit frequency reviewed and agreed upon with patient and/or caregiver. Current Discharge Plan: outpatient rehab Anticipate discharge by 08/11/24 RECOMMENDATION: Next visit to focus on add 1/4 squats for HEP See intervention summary for intervention/education details. documented in [facility] encounter[facility]01-[facility] Patient's home Note* PT ROUTINE/REASSESSMENT/RECERT/CASE MGMT - Sallie Hi PTA - 08/08/2024 11:47 AM EST SITUATION: spouse present during today's visit. patient reports the following since the last homecare visit: medications/allergies--no changes, no fall. patient reports he dr appointment went really good. Has refill of pain meds but not picked up yet. Stated she duscuss walking w/ cane and that she does not feel stable w/out walker. Rebekah told me to use the walker as long as I feel that i need it. . BACKGROUND: Diagnoses (reason for Home Care): RTKR Weight Bearing/Precaution Changes: no changes ASSESSMENT: Focus of visit progressed standing exercise to bilateral for HEP. Gait training w/ ww including 1 step to exit/enter home. PROM 94 post stretches. Issued NOMNC Plan of care, goals, and visit frequency reviewed and agreed upon with patient and/or caregiver. Current Discharge Plan: outpatient rehab Anticipate discharge by 08/11/24 RECOMMENDATION: Next visit to focus on add 1/4 squats for HEP See intervention summary for intervention/education details. [facility] Work Phone: 1(148) 960-986301-27-2025 NoteHNO ID: [id number] Author: REBEKAH EDUARDO PA-C Service: ? Author Type: Physician Professional Application Designer Type: Progress Notes Filed: 08/07/2024 14:13 Note Text: Ortho Knee Follow Up Note Narrative Referring Provider: Bryson Dhillon [address] [facility] [address] PCP: Scot Blank MD IMPRESSION/PLAN: 74 year old s/p Right Total Knee Replacement completed on 07/26/2024. She is doing very well, motion is progressing nicely, she continues to take pain medication every 6 hours. Recent Surgeries this specialty 07/26/2024 (1w, 5d) ROBOTIC ASSISTED TOTAL KNEE ARTHROPLASTY; COMPUTER ASSIST MUSCULOSKETAL SURG NAVIGATION ORTHO PROCED W/IMAGE GUIDANCE BASED ON CT/MRI IMAGES (Right; Right) Bryson Dhillon MD - Posted 06/23/2019 (5yr) ARTHROSCOPY KNEE MENISCECTOMY MEDIAL AND LATERAL WITH MENISCAL SHAVING (Left) Bryson Dihllon MD - Posted PAIN EVALUATION 08/07/2024 1020 Pain Location: Knee-Right Description: Aching;Stiffness Duration Amount of Time: -- Post op Frequency: Continuous Intervention/Comfort measure: Medication IMPRESSION: At normal post-operative stage of recovery. PLAN: Continue current conservative treatment. Rest, Ice, Compression, Elevation PRN. Patient Reassurance: Progress appears to be with the normal speed of recovery. Patient reassured and supported. All questions answered. Follow up 1 month No X-Rays Needed Nora Camarillo presents today for a a routine 1st post-op visit ACTIVE PROBLEM LIST Diverticulosis of Large Intestine Senile Osteoporosis Mixed Hyperlipidemia Delayed Gastric Emptying Elevated Fasting Blood Sugar Gastric Diverticulum Pud (Peptic Ulcer Disease) Gastroesophageal Reflux Disease With Esophagitis Mild Persistent Asthma Without Complication Primary Insomnia Medicare Annual Wellness Visit, Subsequent Low Back Pain Essential Tremor Bilateral Carotid Artery Stenosis Arthritis of Left Knee Obesity, Class I, Bmi 30-34.9 Palpitations Medication Management Left Lateral Abdominal Pain Chronic Bilateral Low Back Pain Allergic Rhinitis Left Leg Swelling May-Thurner Syndrome Family History of Thyroid Disease Memory Impairment Anxiety and Depression Chronic Pain of Left Knee Chronic Pain of Both Ankles Mixed Incontinence Chronic Pain of Right Knee Living Will On File Advance Directive Discussed With Patient Age-Related Osteoporosis Without Current Pathological Fracture Vitamin D Deficiency Persistent Cough Second Hand Smoke Exposure Lbbb (Left Bundle Branch Block) S/P Total Knee Arthroplasty, Right Status post op: BMI: There is no height or weight on file to calculate BMI. Post-operative recovery was complicated by uneventful/none. Readmission(s) since surgery (90 days post)? No ED Visits AND Hospitalizations - Last 180 days 07/26/24 Bryson Dhillon MD, ME2E S/P total knee arthroplasty, right, Admission (Discharged) Patient rates their condition as improving. Does the patient still experience pain? Onset: activity. Location: Right knee. Frequency: intermittently. Pain scale: 0. Pain character: stiffness . Relieving factors: Ice and Pain medication. Aggravating factors: Prolonged sitting, Arising from chair, Walking long distances, and Increased activity Post Op discharge patient location: in home. Functional Assessment is as follows: is ready to begin outpatient PT. Functional difficulties: Interferes with sleep, Prolonged standing, Stair climbing, and Walking. Pain Medication: Narcotic Current Opioids Analgesic Opioid Agonists Start End oxyCODONE IR (ROXICODONE) 5 mg immediate release tablet 08/07/2024 08/16/2024 Sig - Route: Take 1 tablet by mouth every 6 hours as needed for pain for up to 9 days. - ORAL Earliest Fill Date: 08/07/2024 Currently Ambulating with: a walker 03/21/2019 03/23/2019 03/28/2019 Physical Therapy Data Plan for next visit Continue with ther ex that is tolerable. US as needed. Continue with therapeutic exercise that does not cause the pt undue pain. Continue with therapeutic exercise that does not cause the pt undue pain and consider continuation of US. POC will depend on physician recommendation. EXAM: POST OP KNEE Right Post-Operative Knee Ambulates with a limp favoring the left uses: a walker. SKIN: Appropriate postop appearance and No evidence of erythema, warmth, discharge or drainage. Range of motion is 5 degrees in extension and 90 degrees of flexion. Extension Lag: < 10 degrees Pain with ROM: No There is Slight effusion. Mal-alignment: No Tender to the palpation of None Neurovascular Status: Sensation Intact, Moves foot and ankle up AND down, and 2+ dorsalis pedis Stability:Anterior/Posterior- Yes, stable and Varus/Valgus- Yes, stable Quad strength: weak Imagin. Implants are well aligned (more content not included)...[facility]01-27-2025 History of Present illness Narrative* Rebekah Eduardo PA-C - 08/07/2024 2:11 PM EST Images from the original note were not included. Ortho Knee Follow Up Note Narrative Referring Provider: Bryson Dhillon [address] [facility] [address] PCP: Scot Blank MD IMPRESSION/PLAN: 74 year old s/p Right Total Knee Replacement completed on 07/26/2024. She is doing very well, motionis progressing nicely, she continues to take pain medication every 6 hours. Recent Surgeries this specialty 07/26/2024 (1w, 5d) ROBOTIC ASSISTED TOTAL KNEE ARTHROPLASTY; COMPUTER ASSIST MUSCULOSKETAL SURG NAVIGATION ORTHO PROCED W/IMAGE GUIDANCE BASED ON CT/MRI IMAGES (Right; Right) Bryson Dhillon MD - Posted 06/23/2019 (5yr) ARTHROSCOPY KNEE MENISCECTOMY MEDIAL AND LATERAL WITH MENISCAL SHAVING (Left) Bryson Dhillon MD - Posted PAIN EVALUATION 08/07/2024 1020 Pain Location: Knee-Right Description: Aching;Stiffness Duration Amount of Time: -- Post op Frequency: Continuous Intervention/Comfort measure: Medication IMPRESSION: At normal post-operative stage of recovery. PLAN: Continue current conservative treatment. Rest, Ice, Compression, Elevation PRN. Patient Reassurance: Progress appears to be with the normal speed of recovery. Patient reassured and supported. All questions answered. Follow up 1 month No X-Rays Needed Nora Camarillo presents today for a a routine 1st post-op visit ACTIVE PROBLEM LIST Diverticulosis of Large Intestine Senile Osteoporosis Mixed Hyperlipidemia Delayed Gastric Emptying Elevated Fasting Blood Sugar Gastric Diverticulum Pud (Peptic Ulcer Disease) Gastroesophageal Reflux Disease With Esophagitis Mild Persistent Asthma Without Complication Primary Insomnia Medicare Annual Wellness Visit, Subsequent Low Back Pain Essential Tremor Bilateral Carotid Artery Stenosis Arthritis of Left Knee Obesity, Class I, Bmi 30-34.9 Palpitations Medication Management Left Lateral Abdominal Pain Chronic Bilateral Low Back Pain Allergic Rhinitis Left Leg Swelling May-Thurner Syndrome Family History of Thyroid Disease Memory Impairment Anxiety and Depression Chronic Pain of Left Knee Chronic Pain of Both Ankles Mixed Incontinence Chronic Pain of Right Knee Living Will On File Advance Directive Discussed With Patient Age-Related Osteoporosis Without Current Pathological Fracture Vitamin D Deficiency Persistent Cough Second Hand Smoke Exposure Lbbb (Left Bundle Branch Block) S/P Total Knee Arthroplasty, Right Status post op: BMI: There is no height or weight on file to calculate BMI. Post-operative recovery was complicated by uneventful/none. Readmission(s) since surgery (90 days post)? No ED Visits & Hospitalizations - Last 180 days 07/26/24 Bryson Dhillon MD, ME2E S/P total knee arthroplasty, right, Admission (Discharged) Patient rates their condition as improving. Does the patient still experience pain? Onset: activity. Location: Right knee. Frequency: intermittently. Pain scale: 0. Pain character: stiffness . Relieving factors: Ice and Pain medication. Aggravating factors: Prolonged sitting, Arising from chair, Walking long distances, and Increased activity Post Op discharge patient location: in home. Functional Assessment is as follows: is ready to begin outpatient PT. Functional difficulties: Interferes with sleep, Prolonged standing, Stair climbing, and Walking. Pain Medication: Narcotic Current Opioids Analgesic Opioid Agonists Start End oxyCODONE IR (ROXICODONE) 5 mg immediate release tablet 08/07/2024 08/16/2024 Sig - Route: Take 1 tablet by mouth every 6 hours as needed for pain for up to 9 days. - ORAL Earliest Fill Date: 08/07/2024 Currently Ambulating with: a walker 03/21/2019 03/23/2019 03/28/2019 Physical Therapy Data Plan for next visit Continue with ther ex that is tolerable. US as needed. Continue with therapeutic exercise that does not cause the pt undue pain. Continue with therapeutic exercise that does not cause the pt undue pain and consider continuation of US. POC will depend on physician recommendation. EXAM: POST OP KNEE Right Post-Operative Knee Ambulates with a limp favoring the left uses: a walker. SKIN: Appropriate postop appearance and No evidence of erythema, warmth, discharge or drainage. Range of motion is 5 degrees in extension and 90 degrees of flexion. Extension Lag: < 10 degrees Pain with ROM: No There is Slight effusion. Mal-alignment: No Tender to the palpation of None Neurovascular Status: Sensation Intact, Moves foot and ankle up & down, and 2+ dorsalis pedis Stability:Anterior/Posterior- Yes, stable and Varus/Valgus- Yes, stable Quad strength: weak Imagin. Implants are well aligned. Provider: Rebekah Eduardo PA-C Completed by: Rebekah Eduardo PA-C * Nora Escalante MA - 08/07/2024 10:17 AM EST Patient presents with: Right Knee - Post Op: 1 week 5 days post op Robotic assisted Right TKA AMB ROOMING INTAKE FLOWSHEET DATA Pain Pain Location: Knee-Right Description: Aching, Stiffness Duration Amount of Time: (Post op) Frequency: Continuous Intervention/Comfort measure: Medication Patient arrives in office using walker to ambulate. States she is continuing home exercises. Home health has been coming 3 times a week. Taking Oxycodone for the pain and is effective. Patient askingfor a refill. X-rays done today. with patient. [facility] NoteHNO ID: [id number] Author: NORA ESCALANTE MA Service: ? Author Type: Church Supervisor Type: Progress Notes Filed: 08/07/2024 14:13 Note Text: Patient presents with: Right Knee - Post Op: 1 week 5 days post op Robotic assisted Right TKA AMB ROOMING INTAKE FLOWSHEET DATA Pain Pain Location: Knee-Right Description: Aching, Stiffness Duration Amount of Time: (Post op) Frequency: Continuous Intervention/Comfort measure: Medication Patient arrives in office using walker to ambulate. States she is continuing home exercises. Home health has been coming 3 times a week. Taking Oxycodone for the pain and is effective. Patient asking for a refill. X-rays done today. with patient.[facility]01-27-2025 History of Present illness Narrative* Grant Nettles RT(R) - 08/07/2024 10:10 AM EST Radiology Service Progress Note PATIENT NAME: Nora Camarillo DATE OF SERVICE: August 07, 2024 TIME: 8:50 PM PATIENT IDENTITY VERIFICATION COMPLETED USING TWO (2) IDENTIFIERS: Name and Date of confirmedby patient verbally. FALL SCREENING: Has the patient had 2 falls in the last year or 1 fall with injury or currently using an Ambulatory Assistive Device (Walker, Cane, Wheelchair, Crutches, etc.)? Yes, Patient High Riskfor Falls What interventions were put in place to prevent falls during this visit? Increased Observations by Caregivers PATIENT GENDER DATA: Assigned female at . status: : No status:NO. PATIENT RELEVANT IMPLANT DATA REVIEWED: Not Applicable PATIENT PRESENTS WITH AN IMPLANTABLE OR ATTACHED RUG DRY ROOM ATTENDANT: No RADIOLOGY DEPARTMENT: General X-ray: Exam(s) Completed: Lower Extremity X- Ray(s): Knee, AP / Lat / Merchant Right and Wt. Bearing PERIPHERAL IV DATA: Not applicable SIGNED BY: RT Breanna(Flavio) August 07, 2024 8:50 PM documented [facility] NoteHNO ID: [id number] Author: GRANT NETTLES RT(R) Service: ? Author Type: Technologist Type: Progress Notes Filed: 08/07/2024 20:51 Note Text: Radiology Service Progress Note PATIENT NAME: Nora Camarillo DATE OF SERVICE: August 07, 2024 TIME: 8:50 PM PATIENT IDENTITY VERIFICATION COMPLETED USING TWO (2) IDENTIFIERS: Name and Date of confirmed by patient verbally. FALL SCREENING: Has the patient had 2 falls in the last year or 1 fall with injury or currently using an Ambulatory Assistive Device (Walker, Cane, Wheelchair, Crutches, etc.)? Yes, Patient High Risk for Falls What interventions were put in place to prevent falls during this visit? Increased Observations by Caregivers PATIENT GENDER DATA: Assigned female at . status: : No status: NO. PATIENT RELEVANT IMPLANT DATA REVIEWED: Not Applicable PATIENT PRESENTS WITH AN IMPLANTABLE OR ATTACHED RUG DRY ROOM ATTENDANT: No RADIOLOGY DEPARTMENT: General X-ray: Exam(s) Completed: Lower Extremity X-Ray(s): Knee, AP / Lat / Merchant Right and Wt. Bearing PERIPHERAL IV DATA: Not applicable SIGNED BY: RT Breanna(R) August 07, 2024 8:50 [facility]01-24-2025 Miscellaneous Notes * PT ROUTINE/REASSESSMENT/RECERT/CASE MGMT - Sallie Hi PTA - 08/04/2024 10:31 AM EST SITUATION: spouse present during today's visit. patient reports the following since the last homecare visit: medications/allergies--no changes, no fall. patient reports she is very tired today but kbee is feeling better. BACKGROUND: Diagnoses (reason for Home Care): RTKR Weight Bearing/Precaution Changes: no changes ASSESSMENT: Focus of visit performed and progressed ROM and strength exercises for HEP. AAROM 88. Gait trainingw/ww, did not try cane ambulation due to patients fatigue. Shower transfers Plan of care, goals, and visit frequency reviewed and agreed upon with patient and/or caregiver. Current Discharge Plan: outpatient rehab Anticipate discharge by 08/11/24 RECOMMENDATION: Next visit to focus on cane training See intervention summary for intervention/education details. [facility] Patient's home Note* PT ROUTINE/REASSESSMENT/RECERT/CASE MGMT - Sallie Hi PTA - 08/04/2024 10:31 AM EST SITUATION: spouse present during today's visit. patient reports the following since the last homecare visit: medications/allergies--no changes, no fall. patient reports she is very tired today but kbee is feeling better. BACKGROUND: Diagnoses (reason for Home Care): RTKR Weight Bearing/Precaution Changes: no changes ASSESSMENT: Focus of visit performed and progressed ROM and strength exercises for HEP. AAROM 88. Gait trainingw/ww, did not try cane ambulation due to patients fatigue. Shower transfers Plan of care, goals, and visit frequency reviewed and agreed upon with patient and/or caregiver. Current Discharge Plan: outpatient rehab Anticipate discharge by 08/11/24 RECOMMENDATION: Next visit to focus on cane training See intervention summary for intervention/education details. [facility] Work Phone: [phone] Telephone encounter Note* Telephone Encounter - Sallie Hi PTA - 08/02/2024 3:28 PM EST Removed surgical bandage today. No concerns. Picture uploaded to chart. Thanks [facility] Work Phone: 1(362) 886-696801-22-2025 Miscellaneous Notes* Telephone Encounter - Sallie Hi PTA - 08/02/2024 3:28 PM EST Removed surgical bandage today. No concerns. Picture uploaded to chart. Thanks documented [facility]01-[facility] Miscellaneous Notes* PT ROUTINE/REASSESSMENT/RECERT/CASE MGMT - Sallie Hi PTA - 08/02/2024 10:08 AM EST SITUATION: spouse present during today's visit. patient reports the following since the last homecare visit: medications/allergies--no changes, no fall. patient reports Dr called in refill for pain meds but has not picked them up yet. States she did not have a good night last night. BACKGROUND: Diagnoses (reason for Home Care): RTKR Weight Bearing/Precaution Changes: no changes ASSESSMENT: Focus of visit bandage removal. With patients permission, picture obtained and uploaded to chart, no concers. Performed and progressed HEP. PROM 90. step training Plan of care, goals, and visit frequency reviewed and agreed upon with patient and/or caregiver. Current Discharge Plan: outpatient rehab Anticipate discharge by 08/11/24 RECOMMENDATION: Next visit to focus on add standing heel rasies and knee flexion See intervention summary for intervention/education details. [facility]01-[facility] Patient's home Note* PT ROUTINE/REASSESSMENT/RECERT/CASE MGMT - Sallie Hi PTA - 08/02/2024 10:08 AM EST SITUATION: spouse present during today's visit. patient reports the following since the last homecare visit: medications/allergies--no changes, no fall. patient reports Dr called in refill for pain meds but has not picked them up yet. States she did not have a good night last night. BACKGROUND: Diagnoses (reason for Home Care): RTKR Weight Bearing/Precaution Changes: no changes ASSESSMENT: Focus of visit bandage removal. With patients permission, picture obtained and uploaded to chart, no concers. Performed and progressed HEP. PROM 90. step training Plan of care, goals, and visit frequency reviewed and agreed upon with patient and/or caregiver. Current Discharge Plan: outpatient rehab Anticipate discharge by 08/11/24 RECOMMENDATION: Next visit to focus on add standing heel rasies and knee flexion See intervention summary for intervention/education details. [facility] Work Phone: [phone]) 116-828901-21-2025 Telephone encounter Note* Telephone Encounter - Dorita Patino RN - 08/01/2024 9:12 AM EST Prescription Refill Information The patient has been identified by name and date of : Yes Caregiver verified no other encounters exist for this prescription request: Yes Caregiver confirmed with patient/requestor that no other refills are due, in the near future, with this provider at this time: Yes The last office visit in the department: 07/26/24 Does the patient have a future office visit with this provider/department: Yes 08/07/24 with Rebekah Eduardo Requested Prescriptions Pending Prescriptions Disp Refills oxyCODONE IR (ROXICODONE) 5 mg immediate release tablet 50 tablet 0 Sig: Take 1-2 tablets by mouth every 6 hours as needed for pain for up to 7 days. Dorita Patino RN August 01, 2024 9:13 AM [facility]01-21[facility] Miscellaneous Notes* Telephone Encounter - Dorita Patino RN - 08/01/2024 9:12 AM EST Prescription Refill Information The patient has been identified by name and date of : Yes Caregiver verified no other encounters exist for this prescription request: Yes Caregiver confirmed with patient/requestor that no other refills are due, in the near future, with this provider at this time: Yes The last office visit in the department: 07/26/24 Does the patient have a future office visit with this provider/department: Yes 08/07/24 with Rebekah Eduardo Requested Prescriptions Pending Prescriptions Disp Refills oxyCODONE IR (ROXICODONE) 5 mg immediate release tablet 50 tablet 0 Sig: Take 1-2 tablets by mouth every 6 hours as needed for pain for up to 7 days. Dorita Patino RN August 01, 2024 9:13 AM documented in this encounter[facility]01-20-[facility]25 Miscellaneous Notes* PT ROUTINE/REASSESSMENT/RECERT/CASE MGMT - Sallie Hi PTA - 07/31/2024 1:10 PM EST SITUATION: spouse present during today's visit. patient reports the following since the last homecare visit: medications/allergies--no changes, no fall. patient reports she did not have a good night ast night. knee was really hurting. BACKGROUND: Diagnoses (reason for Home Care): RTKR Weight Bearing/Precaution Changes: no changes ASSESSMENT: Focus of visit performed seated and supine LE ROM and strength exercises for HEP. Required manual assist w/ saq due to pain and weakness. AAROM 84. Gait training w/ww and focus on heel to toe pattern. Instructed patient and spouse in higher elevation of RLE and to continue w/ ice several times/day for pain and swelling. Demonstarted and voiced understanding left message w/ electrical plumbing supervisor to schedule OP PT Plan of care, goals, and visit frequency reviewed and agreed upon with patient and/or caregiver. Current Discharge Plan: outpatient rehab Anticipate discharge by 08/11/24 RECOMMENDATION: Next visit to focus on bandage removal See intervention summary for intervention/education details. [facility]01-[facility] Patient's home Note* HH PT ROUTINE/REASSESSMENT/RECERT/CASE MGMT - Sallie Hi PTA - 07/31/2024 1:10 PM EST SITUATION: spouse present during today's visit. patient reports the following since the last homecare visit: medications/allergies--no changes, no fall. patient reports she did not have a good night ast night. knee was really hurting. BACKGROUND: Diagnoses (reason for Home Care): RTKR Weight Bearing/Precaution Changes: no changes ASSESSMENT: Focus of visit performed seated and supine LE ROM and strength exercises for HEP. Required manual assist w/ saq due to pain and weakness. AAROM 84. Gait training w/ww and focus on heel to toe pattern. Instructed patient and spouse in higher elevation of RLE and to continue w/ ice several times/day for pain and swelling. Demonstarted and voiced understanding left message w/ electrical plumbing supervisor to schedule OP PT Plan of care, goals, and visit frequency reviewed and agreed upon with patient and/or caregiver. Current Discharge Plan: outpatient rehab Anticipate discharge by 1/31/25 RECOMMENDATION: Next visit to focus on bandage removal See intervention summary for intervention/education details. [facility] Work Phone: 1([phone]) 113-877101-20-2025 Miscellaneous Notes* CARE COORDINATION - Gaviota Holt RN - 07/31/2024 11:31 AM EST Medication review completed. No ineffective drug therapy, significant side effects, significant drug interactions, duplicate drug therapy, or noncompliance with drug therapy noted. Gaviota Holt RN documented in this encounterWood [facility]01-20-2025 Patient's home Note* CARE COORDINATION - Gaviota Holt RN - 07/31/2024 11:31 AM EST Medication review completed. No ineffective drug therapy, significant side effects, significant drug interactions, duplicate drug therapy, or noncompliance with drug therapy noted. Gaviota Holt RN [facility] Work Phone: [phone]) 314-848501-17-2025 Miscellaneous Notes* PT SOC/CHELA/FOLLOW UP/OTHER - Jazzy Pereira, PT - 07/28/2024 1:31 PM EST SITUATION: spouse present during today's visit. patient reports this is really uncomfortable . BACKGROUND: Diagnoses (reason for Home Care): [facility] 07/26/24 -.07/27/2024 Primary Diagnoses (reason for Home Care): Primary osteoarthritis of right knee [M17.11] s/p ROBOTIC ASSISTED TOTAL KNEE ARTHROPLASTY (Right) 07/26/2024 ACTIVE PROBLEM LIST Diverticulosis of Large Intestine Senile Osteoporosis Mixed Hyperlipidemia Delayed Gastric Emptying Elevated Fasting Blood Sugar Gastric Diverticulum Pud (Peptic Ulcer Disease) Gastroesophageal Reflux Disease With Esophagitis Mild Persistent Asthma Without Complication Primary Insomnia Medicare Annual Wellness Visit, Subsequent Low Back Pain Essential Tremor Bilateral Carotid Artery Stenosis Arthritis of Left Knee Obesity, Class I, Bmi 30-34.9 Palpitations Medication Management Left Lateral Abdominal Pain Chronic Bilateral Low Back Pain Allergic Rhinitis Left Leg Swelling May-Thurner Syndrome Family History of Thyroid Disease Memory Impairment Anxiety and Depression Chronic Pain of Left Knee Chronic Pain of Both Ankles Mixed Incontinence Chronic Pain of Right Knee Living Will On File Advance Directive Discussed With Patient Age-Related Osteoporosis Without Current Pathological Fracture Vitamin D Deficiency Persistent Cough Second Hand Smoke Exposure Lbbb (Left Bundle Branch Block) S/P Total Knee Arthroplasty, Right SPECIFIC ORDERS DME: Specific Equipment: Equipment Owned: Cane, Commode- Raised, Grab Bars- Shower,Shower Chair, Walker- Wheeled Advance Directives: Patient does have advance directives. Weight Bearing or Surgical Precautions: wbat Home; 1 story- 2 small platform entry steps no rail. All needs on main level. Lives with spouse whois able and willing to assist PLF: functionally indep w/o ad ASSESSMENT: Patient evaluated by [facility]. Reviewed and explained homecare services. Plan of care, goals, and visit frequency developed, reviewed, and agreed upon with patient and/or caregiver. Patient Goal: walk iwthout pain Patient will benefit from continued physical therapy to address the following deficits: strength, balance, gait, endurance, Rknee joint ROM, transfers, stair negotiation and bed mobility. Current Discharge Plan: outpatient rehab. Anticipate discharge by tbd. RECOMMENDATION: Next visit to focus on : review of HEP,shower chair transfer, transfers, gait Agreeable to PT; declining none. See intervention summary for intervention/education details. [facility]01-[facility]-2025 Patient's home Note* PT SOC/CHELA/FOLLOW UP/OTHER - Jazzy Pereira, PT - 07/28/2024 1:31 PM EST SITUATION: spouse present during today's visit. patient reports this is really uncomfortable . BACKGROUND: Diagnoses (reason for Home Care): [facility] 07/26/24 -.07/27/2024 Primary Diagnoses (reason for Home Care): Primary osteoarthritis of right knee [M17.11] s/p ROBOTIC ASSISTED TOTAL KNEE ARTHROPLASTY (Right) 07/26/2024 ACTIVE PROBLEM LIST Diverticulosis of Large Intestine Senile Osteoporosis Mixed Hyperlipidemia Delayed Gastric Emptying Elevated Fasting Blood Sugar Gastric Diverticulum Pud (Peptic Ulcer Disease) Gastroesophageal Reflux Disease With Esophagitis Mild Persistent Asthma Without Complication Primary Insomnia Medicare Annual Wellness Visit, Subsequent Low Back Pain Essential Tremor Bilateral Carotid Artery Stenosis Arthritis of Left Knee Obesity, Class I, Bmi 30-34.9 Palpitations Medication Management Left Lateral Abdominal Pain Chronic Bilateral Low Back Pain Allergic Rhinitis Left Leg Swelling May-Thurner Syndrome Family History of Thyroid Disease Memory Impairment Anxiety and Depression Chronic Pain of Left Knee Chronic Pain of Both Ankles Mixed Incontinence Chronic Pain of Right Knee Living Will On File Advance Directive Discussed With Patient Age-Related Osteoporosis Without Current Pathological Fracture Vitamin D Deficiency Persistent Cough Second Hand Smoke Exposure Lbbb (Left Bundle Branch Block) S/P Total Knee Arthroplasty, Right SPECIFIC ORDERS DME: Specific Equipment: Equipment Owned: Cane, Commode- Raised, Grab Bars- Shower,Shower Chair, Walker- Wheeled Advance Directives: Patient does have advance directives. Weight Bearing or Surgical Precautions: wbat Home; 1 story- 2 small platform entry steps no rail. All needs on main level. Lives with spouse whois able and willing to assist PLF: functionally indep w/o ad ASSESSMENT: Patient evaluated by [facility]. Reviewed and explained homecare services. Plan of care, goals, and visit frequency developed, reviewed, and agreed upon with patient and/or caregiver. Patient Goal: walk iwthout pain Patient will benefit from continued physical therapy to address the following deficits: strength, balance, gait, endurance, Rknee joint ROM, transfers, stair negotiation and bed mobility. Current Discharge Plan: outpatient rehab. Anticipate discharge by tbd. RECOMMENDATION: Next visit to focus on : review of HEP,shower chair transfer, transfers, gait Agreeable to PT; declining none. See intervention summary for intervention/education details. [facility] Work Phone: 1([phone]) 611-320901-16-2025 Telephone encounter Note* Telephone Encounter - Dawn Vincent PSS - 07/27/2024 12:13 PM EST Date/Time: 07/27/2024 12:13 PM Spoke with HollyMati (Spouse) @ phone #: [phone] - Preferred # for contact: [phone] Have you received help from a home care company in the last 60 days? no Are you agreeable to [facility] services? yes What address will we be seeing you at? [address] [facility] [address] Do you have any upcoming appointments or things we need to schedule around? no Do you have a teachable CG or can you manage your care independently? yes Who? Mati Camarillo (Spouse) Have you received the flu shot? no If so, when and where? na [facility]01-16-2025 Miscellaneous Notes* Telephone Encounter - Dawn Vincent PSS - 07/27/2024 12:13 PM EST Date/Time: 07/27/2024 12:13 PM Spoke with Mati Camarillo (Spouse) @ phone #: [phone] - Preferred # for contact: [phone] Have you received help from a home care company in the last 60 days? no Are you agreeable to [facility] services? yes What address will we be seeing you at? [address] [address] Do you have any upcoming appointments or things we need to schedule around? no Do you have a teachable CG or can you manage your care independently? yes Who? Mati Camarillo (Spouse) Have you received the flu shot? no If so, when and where? na [facility] NoteHNO ID: [id number] Author: MARINO LU MD Service: General Internal Medicine Author Type: Physician Type: Progress Notes Filed: 07/27/2024 08:57 Note Text: INPATIENT PROGRESS NOTES Patient Name: Nora Camarillo DATE of SERVICE: 07/27/2024 TIME of SERVICE: 6:50 AM PRIMARY SERVICE: medicine INTERVAL HPI: Uneventful night, pain is well-controlled. No nausea or vomiting. No lightheadedness or dizziness ASSESSMENT AND PLAN: Osteoarthritis, status post right total knee arthroplasty, DVT prophylaxis with aspirin 81 mg twice a day Asthma continue bronchodilators and Singulair GERD currently on PPI Mid Thurner syndrome status post iliac vein stent placement Possible discharge today Home-going meds reviewed Plan of care discussed with: Provider, RN, Patient. PERTINENT ROS: All other reviewed and negative other than HPI. MEDICATIONS: Current Facility-Administered Medications Medication Dose Route Frequency albuterol HFA 90 mcg/actuation 2 Puff (PROVENTIL HFA, VENTOLIN HFA) 2 Puff INHALATION q 4 H PRN montelukast 10 mg tab(s) (SINGULAIR) 10 mg ORAL DAILY acetaminophen 1,000 mg tab(s) (TYLENOL) 1,000 mg ORAL q 8 H ondansetron orally disintegrating 4 mg tab(s) (ZOFRAN ODT) 4 mg ORAL q 6 H PRN Or ondansetron (PF) 4 mg injection (ZOFRAN) 4 mg INTRAVENOUS q 6 H PRN magnesium hydroxide 400 mg/5 mL 30 mL (MOM) 30 mL ORAL DAILY PRN [START ON 07/28/2024] bisacodyl EC 10 mg tab(s) (DULCOLAX) 10 mg ORAL DAILY aluminum-magnesium hydroxide-simethicone 200-200-20 mg/5 mL 30 mL 30 mL ORAL q 2 H PRN ascorbic acid (vitamin C) 500 mg tab(s) (VITAMIN C) 500 mg ORAL BID w MEALS docusate sodium 100 mg cap(s) (COLACE) 100 mg ORAL BID senna 17.2 mg tab(s) (SENOKOT) 17.2 mg ORAL AT BEDTIME aspirin, enteric coated 81 mg tab(s) 81 mg ORAL BID keTORolac 15 mg injection (Toradol) 15 mg INTRAVENOUS q 6 H PRN zolpidem 5 mg tab(s) (AMBIEN) 5 mg ORAL AT BEDTIME PRN lactated ringers iv infusion 75 mL/hr INTRAVENOUS CONTINUOUS pantoprazole DR 40 mg tab(s) (PROTONIX) 40 mg ORAL DAILY (6 AM) oxyCODONE IR 5-10 mg tab(s) (ROXICODONE) 5-10 mg ORAL q 4 H PRN diphenhydrAMINE 25 mg injection (BENADRYL) 25 mg INTRAVENOUS q 6 H PRN HYDROmorphone 0.2 mg injection (DILAUDID) 0.2 mg INTRAVENOUS q 3 H PRN PHYSICAL EXAM: Patient Vitals for the past 24 hrs: BP Temp Temp src Pulse Resp SpO2 07/27/24 0853 -- -- -- -- 16 -- 07/27/24 0724 110/58 -- -- -- -- -- 07/27/24 0714 94/66 36.6 ?C (97.9 ?F) Oral 66 16 99 % 07/27/24 0517 -- -- -- 68 -- -- 07/27/24 0353 146/58 36.9 ?C (98.4 ?F) Oral (!) 50 18 97 % 07/26/24 2256 136/56 37 ?C (98.6 ?F) Oral 96 18 99 % 07/26/242012 132/57 36.8 ?C (98.2 ?F) Oral 65 18 97 % 07/26/24 1543 137/63 36.9 ?C (98.4 ?F) Axillary 70 18 97 % 07/26/24 1500 130/60 -- -- 60 14 97 % 07/26/24 1400 133/71 36.3 ?C (97.3 ?F) Temporal 62 14 96 % 07/26/24 1330 126/58 -- -- 69 14 96 % 07/26/24 1300 138/69 -- -- 87 22 98 % 07/26/24 1251 -- -- -- 81 17 99 % 07/26/24 1230 129/63 -- -- 88 22 98 % 07/26/24 1215 140/64 36.3 ?C (97.3 ?F) Temporal 83 25 99 % 07/26/24 1200 120/60 -- -- 78 18 98 % 07/26/24 1145 122/58 -- -- 78 10 98 % 07/26/24 1130 122/59 -- -- 81 13 98 % 07/26/24 1127 -- -- -- 85 17 96 % 07/26/24 1115 104/52 -- -- 89 20 93 % 07/26/24 1105 (!) 92/45 36.9 ?C (98.4 ?F) Temporal 97 22 94 % There is no height or weight on file to calculate BMI. GENERAL: Alert, no distress, cooperative NECK: No jugulovenous distention LUNGS: Lungs clear to auscultation, CARDIAC: Normal S1 and S2; no rubs, murmurs, or gallops ABDOMEN: Abdomen soft, non-tender, BS normal, No masses or organomegaly EXTREMITIES: no edema , no calf tenderness CBC: Recent Labs 07/27/24 0422 WBC 10.14 RBC 3.90 HB 12.0 HCT 36.1 PLT 277 MCV 92.6 MCH 30.8 MPV 10.3 Coags: CMP: Recent Labs 07/27/24 0423 NA 140 K 4.4 CHLOR 105 CO2 25 BUN 10 CREAT 0.64 GLUC 121* CA 9.1 ANION 10 Cardiac Enzymes: Liver Function, Amylase, Lipase: No results for input(s): TPROT, ALB, ALT, AST, ALKPHOS, TBILI, AMYLASE, LIPASE, LACTATE in the last 24 hours. ABG's: No results for input(s): PH, PCO2, PO2, BE, HCO3, CO2CT, O2HB, COHB, MHGB, TEMP, PHTC, PCO2T, PO2T, O2AD in the last 24 hours. MG/PHOS: No results for input(s): MG, P in the last 24 hours. SIGNATURE: Marino Lu, [facility] [id number] NoteHNO ID: [id number] Author: GINA SAMAYOA PA-C Service: Orthopaedic Surgery Author Type: Physician Professional Application Designer Type: Progress Notes Filed: 07/27/2024 11:23 Note Text: POSTOP NOTE ORTHOPAEDIC SURGERY SERVICE DATE: 07/27/2024 SERVICE TIME: 7:34 AM IMPRESSION/PLAN: S/P Procedure(s) (LRB): ROBOTIC ASSISTED TOTAL KNEE ARTHROPLASTY (Right) on 07/26/2024 Physical Therapy evaluation WBAT RLE DVT prophylaxis: Intermittent pneumatic compression device (IPCD) and ASA 81 BID Pain control Case Management for discharge planning Plan of care discussed with: Provider, RN, Patient. Patient Active Hospital Problem List: No active hospital problems. POST OPERATIVE COMPLICATIONS: Complicated by uneventful/none SUBJECTIVE: Patient states that they are comfortable Well Controlled knee pain. Denies incisional pain. OBJECTIVE: VITAL SIGNS: BP 122/54 Pulse 70 Temp 36.4 ?C (97.5 ?F) (Oral) Resp 16 SpO2 96% INTAKE AND OUTPUT: Intake/Output Summary (Last 24 hours) at 07/27/2024 1121 Last data filed at 07/27/2024 1000 Gross per 24 hour Intake 240 ml Output 1200 ml Net -960 ml LABS: Hemoglobin Date Value Ref Range Status 07/27/2024 12.0 11.5 - 15.5 g/dL Final 06/30/2024 15.0 11.5 - 15.5 g/dL Final Hematocrit Date Value Ref Range Status 07/27/2024 36.1 36.0 - 46.0 % Final 06/30/2024 44.8 36.0 - 46.0 % Final Platelet Count Date Value Ref Range Status 07/27/2024 277 150 - 400 k/uL Final 06/30/2024 335 150 - 400 k/uL Final WBC Date Value Ref Range Status 07/27/2024 10.14 3.70 - 11.00 k/uL Final 06/30/2024 5.84 3.70 - 11.00 k/uL Final Creatinine Date Value Ref Range Status 07/27/2024 0.64 0.58 - 0.96 mg/dL Final 06/30/2024 0.68 0.58 - 0.96 mg/dL Final Potassium Date Value Ref Range Status 07/27/2024 4.4 3.7 - 5.1 mmol/L Final 06/30/2024 4.5 3.7 - 5.1 mmol/L Final VTE Prophylaxis: Active VTE Risk Category Order: 07/26/241614 VTE RISK CATEGORY: SURGICAL HIGH RISK ([place], [place]) Active VTE Medication Orders: Anticoagulant AND Antiplatelet Medications (From admission, onward) Start Dose Route Frequency Last Action Ordered Stop 07/27/24 0900 aspirin, enteric coated 81 mg tab(s) (Surgical Risk Categories) 81 mg ORAL 2 TIMES DAILY Given, 07/27 75607/26/241613 -- Active VTE Prophylaxis Orders: 07/26/241614 PNEUMATIC COMPRESSION SLEEVE(S) ([place]) PHYSICAL EXAMINATION: Right Lower Extremity: Dorsalis pedis pulses palpable. Posterior tibial pulses palpable. Dorsi flexion 5/5. Plantar flexion 5/5. Extensor hallucis extension: 5/5. Sensory intact to light touch L4-S1. Dressing clean, dry, and intact. Surgical site no drainage and Silverlon intact. Problem Review and Assessment: Skin and Abdominal Wall: Patient monitored, no new events overnight Cardiovascular and Vascular: Patient monitored, no new events overnight Respiratory: Patient monitored, no new events overnight Endocrine and Metabolic: Patient monitored, no new events overnight Gastrointestinal: Patient monitored, no new events overnight Genitourinary and Nephrology: Patient monitored, no new events overnight Behavioral, Cerebrovascular and Nervous: Patient monitored, no new events overnight Infectious: Patient monitored, no new events overnight DATA: Diagnostic tests reviewed for today's visit: Most recent labs and imaging results. SIGNATURE: Gina Samayoa PA-C PATIENT NAME: Nora Camarillo DATE: July 27, 2024 TIME: 11:21 AM The patient has undergone major orthopedic surgery and participating in therapy. Pain cannot be managed within an average of 30 MED per day. Patient requiring average of higher than 30 MED per day in order to control pain and allow patient to actively and safely participate in therapy and this is the lowest dose consistent with patient's medical condition. Non-narcotic medication options have been discussed. In addition, the patient has been advised of the benefits and risks of the opioid (including the potential for addiction). Patient demonstrated understanding of risks versus benefits.[facility] [id number] NoteHNO ID: [id number] Author: BRIELLE LE APRN.ECHOCARDIOGRAPHER Service: General Surgery Author Type: Nurse Practitioner Type: Progress Notes Filed: 07/26/2024 18:12 Note Text: POSTOP PROGRESS NOTE SERVICE DATE: 07/26/2024 SERVICE TIME: 5:08 PM Subjective CHIEF COMPLAINT: right total knee replacement INTERVAL HISTORY OF PRESENT ILLNESS: This is a 74 year old female postop Day 0 for a RIGHT ROBOTIC ASSISTED TOTAL KNEE ARTHROPLASTY with Dr. Dhillon. Patient is sitting up on chair after recent PT session and states pain level 8/10 with medication management and iceman. Patient states no further questions or concerns at this time. PT evaluated: Yes Objective PHYSICAL EXAM: BP 137/63 Pulse 70 Temp (Src) 98.4 (Axillary) Resp 18 SpO2 97% O2 Therapy: Room Air, Liters: 2.00 Physical Exam: Right leg sensation intact to light touch, +2 pedal pulses. Wiggles toes, dorsiflex and plantarflex 5/5. Kiran wrap dry and intact and Iceman in place. Assessment AND Plan POSTOP PLANS: As indicated per Dr. Dhillon's post operative protocol. Advised patient to state concerns or questions to nurse. SIGNATURE: Brielle Le APRN.CNP PATIENT NAME: Nora Camarillo DATE: July 26, 2024 TIME: 5:08 PMOhiohealth Nelsonville Health [id number] NoteHNO ID: [id number] Author: FÁTIMA BOOTHE MD Service: ? Author Type: Anesthesiologist Type: Anesthesia Procedure Notes Filed: 07/26/2024 16:31 Note Text: ANESTHESIOLOGY PROCEDURE NOTE Peripheral Nerve Block General Information Procedure Start Time/Medication Administration: 07/26/2024 7:15 AM Procedure End time: 07/26/2024 7:20 AM Patient location during procedure: pre-op Timeout Performed Pre-procedure: timeout performed Consent Obtained: Yes Patient identity confirmed: arm band and patient Reason for block: post-op pain management/at surgeon's request Staffing Anesthesiologist: Fátima Boothe MD Performed by: anesthesiologist Preparation Sterility Preparation: hand hygiene performed prior to procedure, sterile gloves, drapes, and procedure tray, surgical cap used, mask used, sterile drape used during line insertion, skin prep agent completely dried prior to procedure Site Prep: Chloraprep Pre-Procedure Neuro Exam Location: RLE Sensory: intact Motor: intact Procedure Details Patient Position: supine Monitoring: Pulse OX, EKG and NIBP Block Type Lower Extremity: distal femoral (adductor canal) Laterality: right Injection Technique: single-shot Ultrasound Guided: Yes Image in Chart: yes Local Infiltration: Yes Needle Needle Type: echogenic Needle Gauge: 20 G Needle Length: 100 mm Needle Localization: ultrasound Assessment Injection assessment: negative aspiration, no paresthesia on injection, incremental injection and local visualized surrounding nerve on ultrasound Medications Administered ropivacaine (PF) 5 mg/mL (0.5 %) injection (NAROPIN) - peripheral nerve block 20 mL - 07/26/2024 7:15:00 AM SIGNATURE: Fátima Boothe MD PATIENT NAME: Nora Camarillo DATE: July 26, 2024 TIME: 4:30 PM CSN: [id number] NoteHNO ID: [id number] Author: KOPKAS, CHARLEY, COLOR REPAIRER.PC SUPPORT SPECIALIST Service: ? Author Type: Nurse Intramural Director Type: Anesthesia Procedure Notes Filed: 07/26/2024 09:11 Note Text: ANESTHESIOLOGY PROCEDURE NOTE Spinal Block General Information Procedure Start Time/Medication Administration: 07/26/2024 8:39 AM Procedure End time: 07/26/2024 8:43 AM Patient location during procedure: OR Timeout Performed Pre-procedure: timeout performed Reason for Block: primary surgical anesthetic Staffing PC SUPPORT SPECIALIST: Charley Willoughby APRN.PC SUPPORT SPECIALIST Performed by: BERNADINE Preparation Sterility Preparation: hand hygiene performed prior to procedure, sterile gloves, drapes, and procedure tray, surgical cap used, mask used, sterile drape used during line insertion, skin prep agent completely dried prior to procedure Site Prep: Betadine Procedure Details Patient Position: sitting Ultrasound Guided: No Monitoring: Pulse Ox, EKG and NIBP Approach: Midline Location: L3-4 Injection Technique: single-shot Needle Needle Type: pencil-tip Needle Gauge: 24 G Needle Length: 4 in CSF: CSF clear Assessment Events: tolerated well Medications Administered bupivacaine (PF) 0.5 % (5 mg/mL) injection - INTRATHECAL 12 mg - 07/26/2024 8:39:00 AM SIGNATURE: Charley Willoughby APRN.PC SUPPORT SPECIALIST PATIENT NAME: Nora Camarillo DATE: July 26, 2024 TIME: 9:09 AM CSN: [id number] Telephone encounter Note* Telephone Encounter - Rebekah Eduardo PA-C - 07/24/2024 9:41 AM EST Spoke with patient over the phone, she has had some occasional congestion and intermittent coughing. Symptoms seem worse over the past weekend but have improved. She is concerned about her upcoming surgery. Things seem to be getting better, we discussed having her stay on the surgery schedule, certainly if her cough or congestion get worse I would like her to give me a call back and we can discuss again. She did start taking her montelukast, has been using her inhaler and is staying out of the cold air. [facility] Work Phone: [phone]) 644-797301-13-2025 Miscellaneous Notes* Telephone Encounter - Rebekah Eduardo PA-C - 07/24/2024 9:41 AM EST Spoke with patient over the phone, she has had some occasional congestion and intermittent coughing. Symptoms seem worse over the past weekend but have improved. She is concerned about her upcoming surgery. Things seem to be getting better, we discussed having her stay on the surgery schedule, certainly if her cough or congestion get worse I would like her to give me a call back and we can discuss again. She did start taking her montelukast, has been using her inhaler and is staying out of the cold air. * Telephone Encounter - Emilia Dorsey RN - 07/24/2024 9:34 AM EST Spoke with pt. She states that she had a sinus headache/congestion that started last . She has been taking a prescribed allergy medication at night and that seems to have cleared things out. She has been using her inhaler (hx of asthma) as a precaution. She states her chest is clear and anydrainage is clear. She's just really worried about her TKA on Wednesday and wasn't sure if this would push her surgery date back??? * Telephone Encounter - Lissa Rosa LPN - 07/24/2024 9:10 AM EST Patient called and states she has a sinus infection that started last and is getting better. She is wondering if you still wanted to keep her surgery on Wednesday? She just has some congestion, denies fever and has not been on any antibiotics for it. Lissa Rosa LPN documented [facility]01-[facility]-2025 Telephone encounter Note * Telephone Encounter - Emilia Dorsey RN - 07/24/2024 9:34 AM EST Spoke with pt. She states that she had a sinus headache/congestion that started last . She has been taking a prescribed allergy medication at night and that seems to have cleared things out. She has been using her inhaler (hx of asthma) as a precaution. She states her chest is clear and anydrainage is clear. She's just really worried about her TKA on Wednesday and wasn't sure if this would push her surgery date back??? [facility]01-13-2025 Telephone encounter Note* Telephone Encounter - Lissa Rosa LPN - 07/24/2024 9:10 AM EST Patient called and states she has a sinus infection that started last and is getting better. She is wondering if you still wanted to keep her surgery on Wednesday? She just has some congestion, denies fever and has not been on any antibiotics for it. Lissa Rosa LPN [facility]12-27-2024 History of Present illness Narrative* Lima SunshineVICTOR MANUEL - 07/07/2024 12:45 PM EST RADIOLOGY SERVICE PROGRESS NOTE SERVICE DATE: 07/07/2024 SERVICE TIME: 1:11 PM PATIENT IDENTITY VERIFICATION COMPLETED USING TWO (2) STANDARD IDENTIFIERS: Name and Date of confirmed by patient verbally and Name and Date of confirmed by identification band FALL SCREENING: Has the patient had 2 falls in the last year or 1 fall with injury or currently using an Ambulatory Assistive Device (Walker, Cane, Wheelchair, Crutches, etc.)? No PATIENT GENDER DATA: .female : No ALLERGIES: Reviewed and unchanged MEDICATIONS REVIEWED: Not applicable PATIENT RELEVANT IMPLANT DATA REVIEWED: Not Applicable PATIENT PRESENTS WITH AN IMPLANTABLE OR ATTACHED RUG DRY ROOM ATTENDANT: No CREATININE: Creatinine Date Value Ref Range Status 06/30/2024 0.68 0.58 - 0.96 mg/dL Final 02/15/2024 0.85 0.58 - 0.96 mg/dL Final 09/02/2023 0.77 0.58 - 0.96 mg/dL Final Estimated Glomerular Filtration Rate Date Value Ref Range Status 06/30/2024 92 >=60 mL/min/1.73m Final Comment: Estimated Glomerular Filtration Rate (eGFR) is calculated using the 2020 CKD-EPI creatinine equation. This equation utilizes serum creatinine, sex, and age as parameters. The creatinine assay has traceable calibration to isotope dilution- mass spectrometry. Refer to KDIGO guidelines for clinical interpretation. In patients with unstable renal function, e.g. those with acute kidney injury, the eGFRmay not accurately reflect actual GFR. eGFR- Date Value Ref Range Status 05/06/2021 >60 Final P.O.C.T. RESULTS: N/A July 07, [address] PERFORMED: No IV SITE: Ambulatory: A peripheral IV was started in the Right antecubital site with a Angio cath: 22 gauge. POST EXAM PIV STATUS: Discontinued PROCEDURE TYPE: NM Stress: 13.3 mCi [id number] was administered IV for Rest Imaging at 12:45 by . 36 mCi [id number]-Wxzontc was administered IV for Stress Imaging at 13:40 by mm. PATIENT DISCHARGED TO: Ambulatory patient, left [place] department area. Is this a therapy: No A Diagnostic radioactive procedure has taken place, with no further precautions necessary other than routine body substance precautions. More information regarding radiation safety can be found usingthis link: [email or web address]%20Nuclear%20Medicine%[email or web address] SIGNATURE: VICTOR MANUEL Bobo PATIENT NAME: Nora Camarillo DATE: July 07, 2024 TIME: 1:11 PM PAGER/CONTACT #: documented in this encounterWood [facility]12-27-2024 NoteHNO ID: [id number] Author: LIMA SUNSHINE CNMT Service: Radiology Author Type: Technologist Type: Progress Notes Filed: 07/07/2024 13:42 Note Text: RADIOLOGY SERVICE PROGRESS NOTE SERVICE DATE: 07/07/2024 SERVICE TIME: 1:11 PM PATIENT IDENTITY VERIFICATION COMPLETED USING TWO (2) STANDARD IDENTIFIERS: Name and Date of confirmed by patient verbally and Name and Date of confirmed by identification band FALL SCREENING: Has the patient had 2 falls in the last year or 1 fall with injury or currently using an Ambulatory Assistive Device (Walker, Cane, Wheelchair, Crutches, etc.)? No PATIENT GENDER DATA: .female : No ALLERGIES: Reviewed and unchanged MEDICATIONS REVIEWED: Not applicable PATIENT RELEVANT IMPLANT DATA REVIEWED: Not Applicable PATIENT PRESENTS WITH AN IMPLANTABLE OR ATTACHED RUG DRY ROOM ATTENDANT: No CREATININE: Creatinine Date Value Ref Range Status 06/30/2024 0.68 0.58 - 0.96 mg/dL Final 02/15/2024 0.85 0.58 - 0.96 mg/dL Final 09/02/2023 0.77 0.58 - 0.96 mg/dL Final Estimated Glomerular Filtration Rate Date Value Ref Range Status 06/30/2024 92 >=60 mL/min/1.73m? Final Comment: Estimated Glomerular Filtration Rate (eGFR) is calculated using the 2020 CKD-EPI creatinine equation. This equation utilizes serum creatinine, sex, and age as parameters. The creatinine assay has traceable calibration to isotope dilution-mass spectrometry. Refer to KDIGO guidelines for clinical interpretation. In patients with unstable renal function, e.g. those with acute kidney injury, the eGFR may not accurately reflect actual GFR. eGFR- Date Value Ref Range Status 05/06/2021 >60 Final P.O.C.T. RESULTS: N/A July 07, [address] PERFORMED: No IV SITE: Ambulatory: A peripheral IV was started in the Right antecubital site with a Angio cath: 22 gauge. POST EXAM PIV STATUS: Discontinued PROCEDURE TYPE: NM Stress: 13.3 mCi [id number]-Vfthjnp was administered IV for Rest Imaging at 12:45 by . 36 mCi [id number] was administered IV for Stress Imaging at 13:40 by mm. PATIENT DISCHARGED TO: Ambulatory patient, left [place] department area. Is this a therapy: No A Diagnostic radioactive procedure has taken place, with no further precautions necessary other than routine body substance precautions. More information regarding radiation safety can be found using this link: [email or web address]%20Nuclear%20Medicine%[email or web address] SIGNATURE: PILAR BoboMT PATIENT NAME: Nora Camarillo DATE: July 07, 2024 TIME: 1:11 PM PAGER[facility]CONTACT #:[facility] [phone] Telephone encounter Note * Telephone Encounter - Shakila Sotelo RN - 07/06/2024 3:16 PM EST Spoke to pt regarding reminder and instructions for stress test tomorrow. This included where to check in, length of test and no caffeine for 12 hours prior to test. [facility]12-26-2024 Miscellaneous Notes* Telephone Encounter - Shakila Sotelo RN - 07/06/2024 3:16 PM EST Spoke to pt regarding reminder and instructions for stress test tomorrow. This included where to check in, length of test and no caffeine for 12 hours prior to test. documented in this encounterWood [facility] Hospital12-20-2024 Instructions* Patient Instructions* Yari Rincon, KJ.ECHOCARDIOGRAPHER - 06/30/2024 9:32 AM EST Images from the original note were not included. [facility] PATIENT PREOPERATIVE INSTRUCTIONS Bryson Dhillon MD has scheduled you for your procedure at this surgery center: [facility]: [phone] -- [address] [address] [facility] [address]. Please read below carefully for your personalized instructions. Dietary Restrictions: - No solid food after midnight. - You may have 12 ounces of clear liquids (water, clear juices such as apple juice or gatorade, carbonated beverages, clear tea, black coffee, jello) until 2 hours before scheduled arrival at facility. Medications: Unless instructed differently below, stay on all of your medications until your surgery. If you start any new medications after today's visit, please contact your surgeon. Pre-Surgery Med Instructions Medication Instructions cholecalciferol, Vitamin D3, (VITAMIN D3) 1,250 mcg (50,000 unit) cap capsule Stop 7 days before surgery albuterol HFA (VENTOLIN HFA) 90 mcg/actuation inhaler Take the day of surgery with a small sip of water Zolpidem (AMBIEN CR) 12.5 mg CR tablet Do not take the day of surgery montelukast (SINGULAIR) 10 mg tablet Take the day of surgery with a small sip of water pantoprazole DR (PROTONIX) 20 mg tablet Take the day of surgery with a small sip of water nystatin (NYSTOP) powder Do not take the day of surgery If you start any new medications after today's visit, please contact the surgeon's office. If you are currently using a [id number] injectable or oral medication for diabetes or weight loss such as Dulaglutide (Trulicity), Exenatide (Byetta, Bydureon), Liraglutide (Victoza, Saxenda), Semaglutide (Ozempic, Wegovy, Rybelsus), or Tirzepatide (Mounjaro), the medicine should be stopped at least 7 days before surgery. These medicines can cause food to remain in your stomach for a very longtime and increase the risks from surgery and anesthesia. Not stopping the medication for a long enough time may result in your surgery being rescheduled. Blood Thinning Medications: - Stop NSAIDS (Ibuprofen, Advil, Aleve, Motrin, Celebrex, Mobic, etc.) 7 days before surgery, as directed by your surgeon. - Stop Aspirin 7 days before surgery, as directed by your surgeon. - Stop ALL herbal and dietary supplements 7 days before surgery. - You may take Tylenol (Acetaminophen) or any of your pain medications that do not contain aspirin or NSAIDS as needed. Important Reminders: - Candy, mints, and tobacco products are NOT permitted the morning of surgery. - Hearing aids, dentures and glasses may be worn the morning of surgery. - NO jewelry, body piercings, makeup, hairpins or contacts are to be worn the day of surgery. If you develop symptoms such as a fever, cold, or flu, or have other changes to your health within TWO DAYS of scheduled surgery or the morning of surgery, please contact the surgery center above. Personal Belongings: -Please have photo ID and insurance cards. -If you do not have a copy of advance directives on file with us, please bring a copy with you on the day of surgery. - Leave ALL valuables and money at home or with family members. - Please bring high-quality footwear, such as sneakers, to the hospital for ambulating post-surgery. For Outpatient Procedures: - YOU MUST HAVE A RESPONSIBLE CLIENT EXPERIENCE CONSULTANT TAKE YOU HOME. A PATIENT ACCOUNT LIAISON OR FIELD IDENTIFICATION SPECIALIST CANNOT BE MADE A RESPONSIBLE CLIENT EXPERIENCE CONSULTANT. - We recommend that a responsible person stays with you overnight to take care of you. - You cannot stay in a hotel alone after outpatient surgery. You will not be permitted to have yoursurgery, if you do not have someone to take care of you. Arrival Time for Surgery: - The Surgery Center or hospital where you are having surgery will call the afternoon before surgery (or Wednesday for Wednesday surgery) with a scheduled arrival time. - If you have not heard by 4 pm, please contact the surgery center above. Please be aware that emergency situations arise, which may delay or change your surgical time. If this happens, we will notify you as soon as possible and regret any inconvenience. If you already have an Advance Directive, please fax a copy to [phone] or email to for it to be added to your chart. If you do not have an Advance Directive, you can find the appropriate form and more information at [email or web address]. We recommend that youcomplete the Advance Directive form found on the website and bring it with you the day of your surgery. It can be witnessed and scanned into your chart that day. Yari Rincon APRN.CNP [facility] and physical note * Yari Rincon APRN.CNP - 06/30/2024 9:26 AM EST Images from the original note were not included. [facility] HISTORY AND PHYSICAL EXAMINATION SERVICE DATE: 06/30/2024 SERVICE TIME: 1:18 PM PRIMARY CARE PHYSICIAN: Scot Blank MD Assessment Patient has the following medical conditions which may affect [place]-operative course: LBBB (left bundle branch block) Assessment: new on EKG, asymptomatic, stress test and echo ordered, limited availability for cardiac consult, dependent on testing results Mixed hyperlipidemia Assessment: diet controlled Palpitations Assessment: hx, no current tx or symptoms Mild persistent asthma without complication Assessment: follows Dr. Linn, Albuterol inhaler as needed 02/2024 PFT's IMPRESSION: Spirometry reveals a reduced FEV1/FVC with normal FEV1 and FVC values. This could reflect a normal presentation or could indicate mild obstruction. Clinical correlation recommended. The increase in FEF 25-75 post-bronchodilator reflects an improvement in the small airway obstruction. 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 Clinical Frailty Scale: 3. Well, with treated comorbid disease STOP-Bang Score: Patient over 50 years old Denies snoring loudly Denies feeling tired, fatigued, or sleepy during the daytime Has not been observed to stop breathing or choking/gasping during sleep Denies having high blood pressure BMI less than or equal to 35 kg/m^2 Does not have a large neck Non-male patient STOP-Bang Score: 1 [id number] Score: Age: 65-74 Sex: female CHF history: No Hypertension history: No Stroke/TIA/thromboembolism history: No Vascular disease history: Yes Diabetes history: No [id number] Score: 3 ARISCAT Score: Age: 51-80 Preoperative SpO2: >=96% Respiratory infection in the last month: No Preoperative anemia: No Surgical incision: peripheral Duration of surgery: 2-3 hrs Emergency procedure: No ARISCAT Score: 19 ANESTHESIA FINDINGS: Intubation History: No history of difficult intubation Significant Anesthesia Considerations: none Airway History: No history of difficult airway I - PHYSICAL EVALUATION AIRWAY Patient intubated: No. Tracheostomy tube not present Mallampati: III. TM distance: >3 FB. Neck ROM: full ROM without neurological symptoms. Mouth opening: adequate. Short neck: no. Thick neck: yes Mcpherson present: no Lip Bite Test: I Microretrognathia/Micronagthia/Recessed Chin: No DENTAL Dental findings: teeth intact. II - ANESTHESIA PLAN Anesthetic Plan: other Beta Miguel Monitoring Plan Post Procedure Analgesic Plan Prepared for Surgery: optimally prepared for surgery, pending [see comment]. Echo-reviewed, ash deras-ARTI stress test-pending to completed 07/07/2024 Labs and EKG-reviewed, ash to proceed- CONSULTS: Patient does not require consults for optimization at this time Planned Anesthetic: other anesthesia choice The Following Tests/Procedures Have Been Initiated: Orders Placed This Encounter NM CARDIAC PERF STRESS/PHARM Standing Status: Future Standing Expiration Date: 07/30/2025 Order Specific Question: What stress agent will be used? Answer: Regadenoson >CBC + AUTO DIFF Standing Status: Future Number of Occurrences: 1 Standing Expiration Date: 09/29/2024 >CMP Standing Status: Future Number of Occurrences: 1 Standing Expiration Date: 09/29/2024 mupirocin (BACTROBAN) 2 % ointment Sig: Apply 0.5 inch with cotton swab (Q-tip) to each nostril in the morning and evening for 5 days prior to and including day of surgery. Dispense: 22 g Refill: 0 ECG COMPLETE Standing Status: Future Number of Occurrences: 1 Standing Expiration Date: 06/30/2025 ECHO Standing Status: Future Number of Occurrences: 1 Standing Expiration Date: 06/30/2025 Order Specific Question: Disease / Condition: Answer: Abnormal Test Result Order Specific Question: Indication: Answer: Abnormal ECG REASON FOR VISIT: Nora Camarillo is a 74 year old female who is scheduled for Procedure(s): ROBOTIC ASSISTED TOTAL KNEE ARTHROPLASTY (Right) at the request of Dr. Bryson Dhillon for consultation. My final recommendation will be communicated back to the requesting physician by way of shared medical record or letter. Subjective The patient has the following: COVID-19 Immunization Status Discontinued - Covid-19 Vaccine Discontinued 03/24/2024 Frequency changed to Never by Jaylin Combs PA-C (Patient Preference) 09/03/2023 Postponed until 09/03/2024 by Qasim Patterson LPN (Declined at this time) 02/12/2022 Postponed until 02/12/2023 by Scot Blank MD (Declined at this time) Only the first 3 history entries have been loaded, but more history exists. CHIEF COMPLAINT: Pre-op exam HPI: Nora Camarillo is a 74 year old seen for PAC due to scheduled above surgery because of OA right knee. 06/12/2024, Dr. Bryson Dhillon Patient here for evaluation discuss right TKA. Patient states her knee is painful all of the time. She is having difficulty walking up and down steps. She does one step at time. Taking Aleve for the pain and helps. X-ray done on 03/03/24, US 04/13/24, MRI 05/17/24. REVIEW OF SYSTEMS: General: No weight loss, malaise or fevers. Neurological: No history of TIA's, stroke, COLOR DEPOSITING MACHINE TENDER tumor, impaired sensorium, hemiplegia, paraplegia orquadraplegia. No neurological symptoms or problems. Respiratory: Positive for: asthma (rx as needed). Negative for: COPD, current cough, dyspnea, pneumonia within 6 weeks, tobacco use, URI < 2 weeksand obstructive sleep apnea. Cardiovascular: Positive for: arrhythmia (LBBB) and PVD (revascularization) Negative for: abdominal aortic aneurysm, AICD/PPM, angina, anticoagulation therapy, atrial fibrillation, CAD, chest pain, CHF, congenital heart defect, DVT/PE, hyperlipidemia, hypertension, recent DE, murmur/valvular heart disease, PTCA, open heart surgery and valve surgery. GI: Positive for: GERD (on rx, s/p walter) Negative for: abdominal pain, dysphagia, heartburn, hepatitis, irritable bowel syndrome, inflammatory bowel disease, liver disease, nausea, pancreatitis, vomiting and ETOH >2 drinks/day. : Negative for: urinary incontinence (hx bladder sling), nephrolithiasis, renal failure and urinary tract infection. OCCUPATIONAL THERAPY DIRECTOR: Negative for abnormal vaginal bleeding, abnormal vaginal discharge. Endocrine: No history of diabetes. Has not taken steroids within the past 30 days. No history of endocrinological symptoms or problems. Hematology: No history of bleeding or clotting disorder. Patient is not taking anti-coagulation or platelet medications. No history of hematological symptoms or problems. Oncology: No history of CA metastasis, chemo within 30 days, or radiotherapy within 90 days. No history of oncological symptoms or problems. Psych: +insomnia Positive for: anxiety. Negative for: depression and Marijuana Use. Musculoskeletal: See HPI. +osteoporosis Skin: Negative for lesions, rash and itching. Implanted Devices: No implanted devices. PAST MEDICAL HISTORY Diagnosis Date Abnormal computed tomography angiography (CTA) 01/03/2019 right upper ICA with abnormality, consult to vascular 12/2018 Acute meniscal tear of left knee 04/13/2019 Advance directive discussed with patient 02/12/2022 Discussed 02/2022 Allergies Anxiety and depression 09/27/2020 Arthritis of left knee 02/19/2019 Bilateral carotid artery stenosis 01/03/2019 US: 12/2018 20-40% tatyana Chronic bilateral low back pain 01/01/2016 Seen [facility] Chronic pain of both ankles 09/27/2020 Chronic pain of left knee 09/27/2020 Chronic pain of right knee 09/30/2021 [facility]es [facility] Current use of proton pump inhibitor 08/25/2019 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 rojas Hiatal hernia 07/22/2016 Left hip pain 09/14/[address] [facility] [address] Xander Martinez Left lateral abdominal pain 02/15/2019 Mid quadrant, chronic and paroxysmal. 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 Linn Mixed hyperlipidemia 11/20/2009 Mixed incontinence 06/27/[address] Queen Obesity, Class I, BMI 30-34.9 06/15/2019 Palpitations 08/25/2019 Primary insomnia 07/22/2016 PUD (peptic ulcer disease) 03/13/2016 Hx of ulcer 2018 and two again in 10/2020. No NSAID's (aspirin held 10/2020) Second hand smoke exposure 11/08/2023 Senile osteoporosis 01/05/2006 Clinical Team Manager following (Dr. Dobson) Simple cyst of breast 11/2009 Left retroareolar Unspecified constipation PAST SURGICAL HISTORY Procedure Laterality Date APPENDECTOMY ARTHROSCOPY KNEE DIAGNOSTIC W/WO SYNOVIAL BX SPX Right 2021 meniscus repair, cementing - Dr. Cunha ARTHRS KNE SURG W/MENISCECTOMY MED/LAT W/SHVG Left 06/23/2019 Left knee medial and lateral menisectomies, medial and PF chondroplasties BREAST BIOPSY Left 2002 CARDIAC CATH 2004 COLONOSCOPY FLX DX W/COLLJ SPEC WHEN PFRMD 05/22/2019 Colonoscopy COLPOPEXY VAGINAL EXTRAPERITONEAL APPROACH 02/2013 repair of rectal and vaginal prolapse COLSC FLX W/RMVL OF TUMOR POLYP LESION SNARE TQ 01/28/2016 repeat 10 yrs EGD 10/16/2020 2 cratered gastric ulcers; Dr. Guillermo EGD TRANSORAL BIOPSY SINGLE/MULTIPLE 01/24/2007 EGD TRANSORAL BIOPSY SINGLE/MULTIPLE 01/28/2016 ESOPHAGEAL MOTILITY STUDY W/INTERP&RPT 04/29/2016 ESOPHAGOGASTRODUODENOSCOPY TRANSORAL DIAGNOSTIC 05/22/2005 EGD H-pylori negative ESOPHAGOGASTRODUODENOSCOPY TRANSORAL DIAGNOSTIC 03/02/2016 ESOPHAGOGASTRODUODENOSCOPY TRANSORAL DIAGNOSTIC 05/22/2019 EGD ESOPHAGOGASTRODUODENOSCOPY TRANSORAL DIAGNOSTIC 12/10/2020 healed ulcers; fundoplication intact; Dr. Guillermo GASTROESOPHAG REFLX TEST W/TELEMTRY PH ELTRD 03/02/2016 48 hour ph probe HERNIA REPAIR HX 1970 & 1973 herniorrhaphy, umbilical, right inguinal . PAST SURGICAL HISTORY OF 01/2005 heart catheterization PAST SURGICAL HISTORY OF 11/03/2004 left breast bx PAST SURGICAL HISTORY OF D & C, multiple PAST SURGICAL HISTORY OF Right 1990 carpal tunnel release PAST SURGICAL HISTORY OF Right arm surgery, ulnar nerve decompression X7 PAST SURGICAL HISTORY OF 05/2009 ganglion cyst removed right wrist PAST SURGICAL HISTORY OF 03/02/2016 pH probe PAST SURGICAL HISTORY OF Left 2002 carpal tunnel release PAST SURGICAL HISTORY OF 02/11/2017 laproscopic Walter Fundoplication.(Dr. Rojas [facility]) PAST SURGICAL HISTORY OF Right 12/2021 Tx of meniscus tear and Fx PAST SURGICAL HISTORY OF Left removal of foreign body in left foot. RECONSTRUCT VAGINAL WALL WITH MESH 04/2015 REMOVE CATARACT, INSERT LENS,EX 02/28/2009 Both Eyes REMV CATARACT EXTRACAP,INSERT LENS Bilateral RETROARC BLADDER SLING [id number] 09/03/2015 retroarc tension free vaginal sling TONSILLECTOMY HX 195 TOTAL ABDOM HYSTERECTOMY 1988 VENOGRAM UNILATERAL 04/2020 groin FAMILY HISTORY Problem Relation Age of Onset Heart Mother Diabetes Mother Cancer Father base of skull other (parkinsons) Father Thyroid Sister Breast Cancer Sister other (hepatitis) Sister @62yrs of age/Liver Problems Thyroid Daughter Thyroid Daughter Cervical Cancer Daughter No Ocular Disease No Family History Anesthesia Problems No Family History Malig Hyperthermia No Family History Social History Tobacco Use Smoking status: Never Passive exposure: Never Smokeless tobacco: Never Tobacco comments: Father smoked occasionally in childhood home. Spouse smoked in home until 4 years ago. Vaping Use Vaping status: Never Used Substance Use Topics Alcohol use: No Drug use: No Prior to Admission medications as of 06/30/24 0942 Medication Sig Last Dose Taking cholecalciferol, Vitamin D3, (VITAMIN D3) 1,250 mcg (50,000 unit) cap capsule Take 1 capsule by mouth one time a week. Taking Yes albuterol HFA (VENTOLIN HFA) 90 mcg/actuation inhaler Inhale 2 Puffs as instructed every 4 hours asneeded. Taking Yes Zolpidem (AMBIEN CR) 12.5 mg CR tablet Take 1 tablet by mouth at bedtime as needed for sedation forup to 90 days. Patient should start on April 27, 2024. Taking Yes montelukast (SINGULAIR) 10 mg tablet Take 1 tablet by mouth daily at bedtime. Patient taking differently: Take 10 mg by mouth at bedtime as needed. Taking Differently Yes pantoprazole DR (PROTONIX) 20 mg tablet Take 1 tablet by mouth two times a day as needed. Taking Yes nystatin (NYSTOP) powder Apply 1 application to affected area three times daily. to affected area as needed Taking Yes mupirocin (BACTROBAN) 2 % ointment Apply 0.5 inch with cotton swab (Q-tip) to each nostril in the morning and evening for 5 days prior to and including day of surgery. No medication comments found. ALLERGIES Allergen Reactions Morphine GI Upset nausea Nsaids (Non-Steroid* Other: See Comments Hx of stomach ulcers Advair Diskus [Flut* Intolerance Hurts throat Bentyl [Dicyclomine* Unknown Celebrex [Celecoxib] GI Upset Dicyclomine Other: See Comments Dry mouth, blurred vision, loss of taste Estrace [Estradiol] Itching Evista [Raloxifene * Itching Macrobid [Nitrofura* Other: See Comments Hair loss Medrol [Methylpredn* Other: See Comments Dry mouth, sore throat. Mobic [Meloxicam] Intolerance Oxycontin [Oxycodon* Itching Penicillins Itching Prozac [Fluoxetine * Unknown Sulfamethizole GI Upset Symax-Sl [Hyoscyami* Unknown Objective PHYSICAL EXAM: General: alert and oriented (x3), healthy appearance and obese. Pertinent negatives noted - not distressed. Skin: normal color, no rash or lesions. HEENT: EOM intact and pupils equal round. Pertinent negatives noted - no carotid bruit. Cardiovascular: regular rate and rhythm, normal S1 and S2, no rub, murmurs, or gallop. Respiratory: normal breath sounds, no wheezes or crackles. No chest wall deformity or tenderness. Abdomen: soft. Pertinent negatives noted - not tender. Extremities: no deformity, no edema or tenderness, no joint swelling or clubbing. Neurological: normal cognition and motor skills. Gait normal. No weakness or sensory deficit. PAIN ASSESSMENT: VITALS: BP 130/88 Pulse 67 Temp 97.8 Resp 21 Ht 5' 3.5 (1.61m) Wt 186 lb 9.6 oz (84.6kg) SpO2 96% BMI 32.53 kg/(m^2). Diagnostic tests reviewed for today's visit: Lab Value Units Date High Low HB 15.0 g/dL 06/30/2024 15.5 11.5 HCT 44.8 % 06/30/2024 46.0 36.0 WBC 5.84 k/uL 06/30/2024 11.00 3.70 PLT 335 k/uL 06/30/2024 400 150 NA 138 mmol/L 06/30/2024 144 136 K 4.5 mmol/L 06/30/2024 5.1 3.7 GLUC 123 mg/dL 06/30/2024 99 74 BUN 15 mg/dL 06/30/2024 21 7 CREAT 0.68 mg/dL 06/30/2024 0.96 0.58 PTSEC No results within date range. INR No results within date range. APTT No results within date range. ALT 17 U/L 06/30/2024 38 7 AST 19 U/L 06/30/2024 35 13 TBILI 0.6 mg/dL 06/30/2024 1.3 0.2 TSH No results within date range. Lab Value Units Date High Low HCGQT No results within date range. UHCG No results within date range. HCG, BODY* No results within date range. Lab Value Units Date High Low ABORHD No results within date range. ABSCREEN No results within date range. Hemoglobin A1C (%) Date Value 02/15/2024 5.2 09/02/2023 5.3 03/01/2023 5.3 08/18/2022 5.3 11/18/2021 5.6 05/06/2021 5.7 09/19/2020 5.7 02/21/2020 5.4 08/25/2019 5.5 01/13/2019 5.1 Recent Results (from the past 8760 hour(s)) ECG COMPLETE Collection Time: 06/30/24 10:40 AM Result Value Ventricular Rate 63 Atrial Rate 63 P-R Interval 164 QRS Duration 134 QT Interval 468 QTC Calculation (Bazett) 478 Calculated P Towner 74 Calculated R Towner -26 Calculated T Towner 82 Impression NORMAL SINUS RHYTHM COMPLETE LEFT BUNDLE BRANCH BLOCK ABNORMAL ECG Recent Results (from the past 15355 hour(s)) ECHO Collection Time: 06/30/24 1:22 PM Impression CONCLUSIONS: - Exam indication: Abnormal ECG - The left ventricle is normal in size. Left ventricular systolic function is mildly decreased. EF = 45 5% (2D biplane) Grade I left ventricular diastolic dysfunction. - The right ventricle is normal in size. Right ventricular systolic function is normal. - There are no significant valvular abnormalities. - The patient has not had a prior [facility] echocardiographic exam for comparison. * * * Final * * * Instructions Given to Patient: Instructions located in the after visit summary. Patient given verbal and written preop instructions and voices comprehension and compliance. SIGNATURE: Yari Rincon APRN.CNP PATIENT NAME: Nora Camarillo DATE: June 30, 2024 TIME: 9:26 AM PAGER/CONTACT #: [facility] History and physical note* Yari Rincon APRN.CNP - 06/30/2024 9:26 AM EST Images from the original note were not included. [place] [facility] HISTORY AND PHYSICAL EXAMINATION SERVICE DATE: 06/30/2024 SERVICE TIME: 1:18 PM PRIMARY CARE PHYSICIAN: Scot Blank MD Assessment Patient has the following medical conditions which may affect [place]-operative course: LBBB (left bundle branch block) Assessment: new on EKG, asymptomatic, stress test and echo ordered, limited availability for cardiac consult, dependent on testing results Mixed hyperlipidemia Assessment: diet controlled Palpitations Assessment: hx, no current tx or symptoms Mild persistent asthma without complication Assessment: follows Dr. Linn, Albuterol inhaler as needed 02/2024 PFT's IMPRESSION: Spirometry reveals a reduced FEV1/FVC with normal FEV1 and FVC values. This could reflect a normal presentation or could indicate mild obstruction. Clinical correlation recommended. The increase in FEF 25-75 post-bronchodilator reflects an improvement in the small airway obstruction. 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 Clinical Frailty Scale: 3. Well, with treated comorbid disease STOP-Bang Score: Patient over 50 years old Denies snoring loudly Denies feeling tired, fatigued, or sleepy during the daytime Has not been observed to stop breathing or choking/gasping during sleep Denies having high blood pressure BMI less than or equal to 35 kg/m^2 Does not have a large neck Non-male patient STOP-Bang Score: 1 [id number] Score: Age: 65-74 Sex: female CHF history: No Hypertension history: No Stroke/TIA/thromboembolism history: No Vascular disease history: Yes Diabetes history: No [id number] Score: 3 ARISCAT Score: Age: 51-80 Preoperative SpO2: >=96% Respiratory infection in the last month: No Preoperative anemia: No Surgical incision: peripheral Duration of surgery: 2-3 hrs Emergency procedure: No ARISCAT Score: 19 ANESTHESIA FINDINGS: Intubation History: No history of difficult intubation Significant Anesthesia Considerations: none Airway History: No history of difficult airway I - PHYSICAL EVALUATION AIRWAY Patient intubated: No. Tracheostomy tube not present Mallampati: III. TM distance: >3 FB. Neck ROM: full ROM without neurological symptoms. Mouth opening: adequate. Short neck: no. Thick neck: yes Mcpherson present: no Lip Bite Test: I Microretrognathia/Micronagthia/Recessed Chin: No DENTAL Dental findings: teeth intact. II - ANESTHESIA PLAN Anesthetic Plan: other Beta Miguel Monitoring Plan Post Procedure Analgesic Plan Prepared for Surgery: optimally prepared for surgery, pending [see comment]. Echo-reviewed, [email or web address] toproceed- stress test-pending to completed 07/07/2024 Labs and EKG-reviewed, okay to proceed- CONSULTS: Patient does not require consults for optimization at this time Planned Anesthetic: other anesthesia choice The Following Tests/Procedures Have Been Initiated: Orders Placed This Encounter NM CARDIAC PERF STRESS/PHARM Standing Status: Future Standing Expiration Date: 07/30/2025 Order Specific Question: What stress agent will be used? Answer: Regadenoson >CBC + AUTO DIFF Standing Status: Future Number of Occurrences: 1 Standing Expiration Date: 09/29/2024 >CMP Standing Status: Future Number of Occurrences: 1 Standing Expiration Date: 09/29/2024 mupirocin (BACTROBAN) 2 % ointment Sig: Apply 0.5 inch with cotton swab (Q-tip) to each nostril in the morning and evening for 5 days prior to and including day of surgery. Dispense: 22 g Refill: 0 ECG COMPLETE Standing Status: Future Number of Occurrences: 1 Standing Expiration Date: 06/30/2025 ECHO Standing Status: Future Number of Occurrences: 1 Standing Expiration Date: 06/30/2025 Order Specific Question: Disease / Condition: Answer: Abnormal Test Result Order Specific Question: Indication: Answer: Abnormal ECG REASON FOR VISIT: Nora Camarillo is a 74 year old female who is scheduled for Procedure(s): ROBOTIC ASSISTED TOTAL KNEE ARTHROPLASTY (Right) at the request of Dr. Bryson Dhillon for consultation. My final recommendation will be communicated back to the requesting physician by way of shared medical record or letter. Subjective The patient has the following: COVID-19 Immunization Status Discontinued - Covid-19 Vaccine Discontinued 03/24/2024 Frequency changed to Never by Jaylin Combs PA-C (Patient Preference) 09/03/2023 Postponed until 09/03/2024 by Qasim Patterson LPN (Declined at this time) 02/12/2022 Postponed until 02/12/2023 by Scot Blank MD (Declined at this time) Only the first 3 history entries have been loaded, but more history exists. CHIEF COMPLAINT: Pre-op exam HPI: Nora Camarillo is a 74 year old seen for PAC due to scheduled above surgery because of OA right knee. 06/12/2024, Dr. Bryson Dhillon Patient here for evaluation discuss right TKA. Patient states her knee is painful all of the time. She is having difficulty walking up and down steps. She does one step at time. Taking Aleve for the pain and helps. X-ray done on 03/03/24, US 04/13/24, MRI 05/17/24. REVIEW OF SYSTEMS: General: No weight loss, malaise or fevers. Neurological: No history of TIA's, stroke, COLOR DEPOSITING MACHINE TENDER tumor, impaired sensorium, hemiplegia, paraplegia orquadraplegia. No neurological symptoms or problems. Respiratory: Positive for: asthma (rx as needed). Negative for: COPD, current cough, dyspnea, pneumonia within 6 weeks, tobacco use, URI < 2 weeksand obstructive sleep apnea. Cardiovascular: Positive for: arrhythmia (LBBB) and PVD (revascularization) Negative for: abdominal aortic aneurysm, AICD/PPM, angina, anticoagulation therapy, atrial fibrillation, CAD, chest pain, CHF, congenital heart defect, DVT/PE, hyperlipidemia, hypertension, recent DE, murmur/valvular heart disease, PTCA, open heart surgery and valve surgery. GI: Positive for: GERD (on rx, s/p walter) Negative for: abdominal pain, dysphagia, heartburn, hepatitis, irritable bowel syndrome, inflammatory bowel disease, liver disease, nausea, pancreatitis, vomiting and ETOH >2 drinks/day. : Negative for: urinary incontinence (hx bladder sling), nephrolithiasis, renal failure and urinary tract infection. OCCUPATIONAL THERAPY DIRECTOR: Negative for abnormal vaginal bleeding, abnormal vaginal discharge. Endocrine: No history of diabetes. Has not taken steroids within the past 30 days. No history of endocrinological symptoms or problems. Hematology: No history of bleeding or clotting disorder. Patient is not taking anti-coagulation or platelet medications. No history of hematological symptoms or problems. Oncology: No history of CA metastasis, chemo within 30 days, or radiotherapy within 90 days. No history of oncological symptoms or problems. Psych: +insomnia Positive for: anxiety. Negative for: depression and Marijuana Use. Musculoskeletal: See HPI. +osteoporosis Skin: Negative for lesions, rash and itching. Implanted Devices: No implanted devices. PAST MEDICAL HISTORY Diagnosis Date Abnormal computed tomography angiography (CTA) 01/03/2019 right upper ICA with abnormality, consult to vascular 12/2018 Acute meniscal tear of left knee 04/13/2019 Advance directive discussed with patient 02/12/2022 Discussed 02/2022 Allergies Anxiety and depression 09/27/2020 Arthritis of left knee 02/19/2019 Bilateral carotid artery stenosis 01/03/2019 US: 12/2018 20-40% tatyana Chronic bilateral low back pain 01/01/2016 Seen [facility] Chronic pain of both ankles 09/27/2020 Chronic pain of left knee 09/27/2020 Chronic pain of right knee 09/30/2021 [facility]es [facility] Current use of proton pump inhibitor 08/25/2019 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 rojas Hiatal hernia 07/22/2016 Left hip pain 09/14/[address] [facility] [address] Xander Martinez Left lateral abdominal pain 02/15/2019 Mid quadrant, chronic and paroxysmal. 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 Linn Mixed hyperlipidemia 11/20/2009 Mixed incontinence 06/27/[address] Queen Obesity, Class I, BMI 30-34.9 06/15/2019 Palpitations 08/25/2019 Primary insomnia 07/22/2016 PUD (peptic ulcer disease) 03/13/2016 Hx of ulcer 2018 and two again in 10/2020. No NSAID's (aspirin held 10/2020) Second hand smoke exposure 11/08/2023 Senile osteoporosis 01/05/2006 Clinical Team Manager following (Dr. Dobson) Simple cyst of breast 11/2009 Left retroareolar Unspecified constipation PAST SURGICAL HISTORY Procedure Laterality Date APPENDECTOMY ARTHROSCOPY KNEE DIAGNOSTIC W/WO SYNOVIAL BX SPX Right 2021 meniscus repair, cementing - Dr. Cunha ARTHMARLI KNE SURG W/MENISCECTOMY MED/LAT W/SHVG Left 06/23/2019 Left knee medial and lateral menisectomies, medial and PF chondroplasties BREAST BIOPSY Left 2002 CARDIAC CATH 2004 COLONOSCOPY FLX DX W/COLLJ SPEC WHEN PFRMD 05/22/2019 Colonoscopy COLPOPEXY VAGINAL EXTRAPERITONEAL APPROACH 02/2013 repair of rectal and vaginal prolapse COLSC FLX W/RMVL OF TUMOR POLYP LESION SNARE TQ 01/28/2016 repeat 10 yrs EGD 10/16/2020 2 cratered gastric ulcers; Dr. Guillermo EGD TRANSORAL BIOPSY SINGLE/MULTIPLE 01/24/2007 EGD TRANSORAL BIOPSY SINGLE/MULTIPLE 01/28/2016 ESOPHAGEAL MOTILITY STUDY W/INTERP&RPT 04/29/2016 ESOPHAGOGASTRODUODENOSCOPY TRANSORAL DIAGNOSTIC 05/22/2005 EGD H-pylori negative ESOPHAGOGASTRODUODENOSCOPY TRANSORAL DIAGNOSTIC 03/02/2016 ESOPHAGOGASTRODUODENOSCOPY TRANSORAL DIAGNOSTIC 05/22/2019 EGD ESOPHAGOGASTRODUODENOSCOPY TRANSORAL DIAGNOSTIC 12/10/2020 healed ulcers; fundoplication intact; Dr. Guillermo GASTROESOPHAG REFLX TEST W/TELEMTRY PH ELTRD 03/02/2016 48 hour ph probe HERNIA REPAIR HX 1971 & 1973 herniorrhaphy, umbilical, right inguinal . PAST SURGICAL HISTORY OF 01/2005 heart catheterization PAST SURGICAL HISTORY OF 11/03/2004 left breast bx PAST SURGICAL HISTORY OF D & C, multiple PAST SURGICAL HISTORY OF Right 1990 carpal tunnel release PAST SURGICAL HISTORY OF Right arm surgery, ulnar nerve decompression X7 PAST SURGICAL HISTORY OF 05/2009 ganglion cyst removed right wrist PAST SURGICAL HISTORY OF 03/02/2016 pH probe PAST SURGICAL HISTORY OF Left 2002 carpal tunnel release PAST SURGICAL HISTORY OF 02/11/2017 laproscopic Walter Fundoplication.(Dr. Rojas [facility]) PAST SURGICAL HISTORY OF Right 12/2021 Tx of meniscus tear and Fx PAST SURGICAL HISTORY OF Left removal of foreign body in left foot. RECONSTRUCT VAGINAL WALL WITH MESH 04/2015 REMOVE CATARACT, INSERT LENS,EX 02/28/2009 Both Eyes REMV CATARACT EXTRACAP,INSERT LENS Bilateral RETROARC BLADDER SLING [id number] 09/03/2015 retroarc tension free vaginal sling TONSILLECTOMY HX 1956 TOTAL ABDOM HYSTERECTOMY 1989 VENOGRAM UNILATERAL 04/2020 groin FAMILY HISTORY Problem Relation Age of Onset Heart Mother Diabetes Mother Cancer Father base of skull other (parkinsons) Father Thyroid Sister Breast Cancer Sister other (hepatitis) Sister @62yrs of age/Liver Problems Thyroid Daughter Thyroid Daughter Cervical Cancer Daughter No Ocular Disease No Family History Anesthesia Problems No Family History Malig Hyperthermia No Family History Social History Tobacco Use Smoking status: Never Passive exposure: Never Smokeless tobacco: Never Tobacco comments: Father smoked occasionally in childhood home. Spouse smoked in home until 4 years ago. Vaping Use Vaping status: Never Used Substance Use Topics Alcohol use: No Drug use: No Prior to Admission medications as of 06/30/24 0942 Medication Sig Last Dose Taking cholecalciferol, Vitamin D3, (VITAMIN D3) 1,250 mcg (50,000 unit) cap capsule Take 1 capsule by mouth one time a week. Taking Yes albuterol HFA (VENTOLIN HFA) 90 mcg/actuation inhaler Inhale 2 Puffs as instructed every 4 hours asneeded. Taking Yes Zolpidem (AMBIEN CR) 12.5 mg CR tablet Take 1 tablet by mouth at bedtime as needed for sedation forup to 90 days. Patient should start on April 27, 2024. Taking Yes montelukast (SINGULAIR) 10 mg tablet Take 1 tablet by mouth daily at bedtime. Patient taking differently: Take 10 mg by mouth at bedtime as needed. Taking Differently Yes pantoprazole DR (PROTONIX) 20 mg tablet Take 1 tablet by mouth two times a day as needed. Taking Yes nystatin (NYSTOP) powder Apply 1 application to affected area three times daily. to affected area as needed Taking Yes mupirocin (BACTROBAN) 2 % ointment Apply 0.5 inch with cotton swab (Q-tip) to each nostril in the morning and evening for 5 days prior to and including day of surgery. No medication comments found. ALLERGIES Allergen Reactions Morphine GI Upset nausea Nsaids (Non-Steroid* Other: See Comments Hx of stomach ulcers Advair Diskus [Flut* Intolerance Hurts throat Bentyl [Dicyclomine* Unknown Celebrex [Celecoxib] GI Upset Dicyclomine Other: See Comments Dry mouth, blurred vision, loss of taste Estrace [Estradiol] Itching Evista [Raloxifene * Itching Macrobid [Nitrofura* Other: See Comments Hair loss Medrol [Methylpredn* Other: See Comments Dry mouth, sore throat. Mobic [Meloxicam] Intolerance Oxycontin [Oxycodon* Itching Penicillins Itching Prozac [Fluoxetine * Unknown Sulfamethizole GI Upset Symax-Sl [Hyoscyami* Unknown Objective PHYSICAL EXAM: General: alert and oriented (x3), healthy appearance and obese. Pertinent negatives noted - not distressed. Skin: normal color, no rash or lesions. HEENT: EOM intact and pupils equal round. Pertinent negatives noted - no carotid bruit. Cardiovascular: regular rate and rhythm, normal S1 and S2, no rub, murmurs, or gallop. Respiratory: normal breath sounds, no wheezes or crackles. No chest wall deformity or tenderness. Abdomen: soft. Pertinent negatives noted - not tender. Extremities: no deformity, no edema or tenderness, no joint swelling or clubbing. Neurological: normal cognition and motor skills. Gait normal. No weakness or sensory deficit. PAIN ASSESSMENT: VITALS: BP 130/88 Pulse 67 Temp 97.8 Resp 21 Ht 5' 3.5 (1.61m) Wt 186 lb 9.6 oz (84.6kg) SpO2 96% BMI 32.53 kg/(m^2). Diagnostic tests reviewed for today's visit: Lab Value Units Date High Low HB 15.0 g/dL 06/30/2024 15.5 11.5 HCT 44.8 % 06/30/2024 46.0 36.0 WBC 5.84 k/uL 06/30/2024 11.00 3.70 PLT 335 k/uL 06/30/2024 400 150 NA 138 mmol/L 06/30/2024 144 136 K 4.5 mmol/L 06/30/2024 5.1 3.7 GLUC 123 mg/dL 06/30/2024 99 74 BUN 15 mg/dL 06/30/2024 21 7 CREAT 0.68 mg/dL 06/30/2024 0.96 0.58 PTSEC No results within date range. INR No results within date range. APTT No results within date range. ALT 17 U/L 06/30/2024 38 7 AST 19 U/L 06/30/2024 35 13 TBILI 0.6 mg/dL 06/30/2024 1.3 0.2 TSH No results within date range. Lab Value Units Date High Low HCGQT No results within date range. UHCG No results within date range. HCG, BODY* No results within date range. Lab Value Units Date High Low ABORHD No results within date range. ABSCREEN No results within date range. Hemoglobin A1C (%) Date Value 02/15/2024 5.2 09/02/2023 5.3 03/01/2023 5.3 08/18/2022 5.3 11/18/2021 5.6 05/06/2021 5.7 09/19/2020 5.7 02/21/2020 5.4 08/25/2019 5.5 01/13/2019 5.1 Recent Results (from the past 8760 hour(s)) ECG COMPLETE Collection Time: 06/30/24 10:40 AM Result Value Ventricular Rate 63 Atrial Rate 63 P-R Interval 164 QRS Duration 134 QT Interval 468 QTC Calculation (Bazett) 478 Calculated P Towner 74 Calculated R Towner -26 Calculated T Towner 82 Impression NORMAL SINUS RHYTHM COMPLETE LEFT BUNDLE BRANCH BLOCK ABNORMAL ECG Recent Results (from the past 26958 hour(s)) ECHO Collection Time: 06/30/24 1:22 PM Impression CONCLUSIONS: - Exam indication: Abnormal ECG - The left ventricle is normal in size. Left ventricular systolic function is mildly decreased. EF = 45 5% (2D biplane) Grade I left ventricular diastolic dysfunction. - The right ventricle is normal in size. Right ventricular systolic function is normal. - There are no significant valvular abnormalities. - The patient has not had a prior CC echocardiographic exam for comparison. * * * Final * * * Instructions Given to Patient: Instructions located in the after visit summary. Patient given verbal and written preop instructions and voices comprehension and compliance. SIGNATURE: Yari Rincon APRN.CNP PATIENT NAME: Nora Camarillo DATE: June 30, 2024 TIME: 9:26 AM PAGER/CONTACT #: [facility] encounter Note * Telephone Encounter - Jefferson Wang PSS - 06/14/2024 2:47 PM EST TOTAL JOINT COMPLETE CARE PROGRAM PRE-OPERATIVE TEACHING Service Date: 06/14/2024 Service Time: 2:55 PM Date of : 1950 Gender: female Date of Surgery: 07/26/24 Procedure: Right Total Knee Replacement Complete Care Program was discussed with the patient: Fibreglass Laminator Identification: Patient identified a day care aide to help when discharged to home: Home Environment: Home Layout: Ranch, Entry Steps: 1, and one into kitchen Bedroom Location: 1st floor, Bathroom Location: 1st floor, and tub shower. Pt owns shower chair, walker, crutches, canes. Discussed with patient importance of attending joint education class and provided date and times ofclass: YES plans to attend 06/27/24 Patient received Joint Education Binder: Yes Patient plans [facility] SIGNATURE: FRANKLIN Finley PATIENT NAME: Nora Camarillo DATE: June 14, 2024 TIME: 2:47 PM [facility] Miscellaneous Notes* Telephone Encounter - Jefferson Wang PSS - 06/14/2024 2:47 PM EST TOTAL JOINT COMPLETE CARE PROGRAM PRE-OPERATIVE TEACHING Service Date: 06/14/2024 Service Time: 2:55 PM Date of : 1950 Gender: female Date of Surgery: 07/26/24 Procedure: Right Total Knee Replacement Complete Care Program was discussed with the patient: Fibreglass Laminator Identification: Patient identified a day care aide to help when discharged to home: Home Environment: Home Layout: [place], Entry Steps: 1, and one into kitchen Bedroom Location: 1st floor, Bathroom Location: 1st floor, and tub shower. Pt owns shower chair, walker, crutches, canes. Discussed with patient importance of attending joint education class and provided date and times ofclass: YES plans to attend 06/27/24 Patient received Joint Education Binder: Yes Patient plans [facility] home [facility]. SIGNATURE: FRANKLIN Finley PATIENT NAME: Nora Camarillo DATE: June 14, 2024 TIME: 2:47 PM [facility] Telephone encounter Note * Telephone Encounter - Haritha Pascual MA - 06/14/2024 1:20 PM EST Surgery has been scheduled as requested. [facility]12-[facility] Miscellaneous Notes* Telephone Encounter - Haritha Pascual MA - 06/14/2024 1:20 PM EST Surgery has been scheduled as requested. * Telephone Encounter - Haritha Pascual MA - 06/14/2024 11:26 AM EST Surgical request completed for Robotic assisted right TKA at [facility] on 07/26/2024. CT scan scheduled for 06/23/2024. Post op appointments have been scheduled and mailed to the patient. Email sent to [facility]. documented in this [facility] Telephone encounter Note * Telephone Encounter - Haritha Pascual MA - 06/14/2024 11:26 AM EST Surgical request completed for Robotic assisted right TKA at [facility] on 07/26/2024. CT scan scheduled for 06/23/2024. Post op appointments have been scheduled and mailed to the patient. Email sent to [email or web address]. [facility] NoteHNO ID: [id number] Author: BRYSON DHILLON MD Service: ? Author Type: Physician Type: Progress Notes Filed: 07/09/2024 14:21 Note Text: CONSULT ORTHOPAEDIC: KNEE PRIMARY CARE PHYSICIAN: Scot Blank MD REFERRING PROVIDER: Re[address] [facility] [id number] ASSESSMENT AND PLAN Impression: Right Knee Moderate Degenerative Osteoarthritis, Secondary Diagnoses: (M25.561, G89.29) Chronic pain of right knee (primary encounter diagnosis) (M17.11) Primary osteoarthritis of right knee Based upon the evaluation today and after discussions with Nora Camarillo, Nora Camarillo has significant, worsening pain at the knee. This pain is increased with activity and weight bearing, and interferes with activities of daily living. These symptoms have continued despite a number of non-surgical measures, including a trial of oral pain medication and attempted physical therapy/ structured exercise program and/or use of an assistive device/ bracing (for at least 12 weeks unless the patient was unable to tolerate these measures as discussed above). At this point, the patient will not benefit from further PT due to the severity of their condition. The patient's physical examination is consistent with limitations in range of motion, pain with passive range of motion, crepitus, and effusion/ synovitis. These examination findings are corroborated by imaging findings of joint space narrowing, periarticular osteophyte formation, and subchondral sclerosis. The patient has been treated by the practice and all reasonable treatments have failed to control the disease, which causes significant pain and limits activities of daily living. The patient has failed conservative treatment and joint replacement surgery was discussed and agreed upon by both provider and patient. We will proceed with surgical management to improve function and relieve pain refractory to non-surgical measures. Right Primary Total Knee Arthroplasty as evidenced by six months of unsuccessful non-operative treatment as outlined in the HPI below. Surgery Details Date and Location: At [facility] on 07/26/2024. Implants: Omro Robotic: Yes Predicted LOS: 2 days (Inpatient candidate) Informed consent obtained in the office today. The risks and benefits of surgery were discussed at length including but not limited to the risks of infection, bleeding, nerve or blood vessel injury, deep venous thrombosis, pulmonary embolism, arthrofibrosis, reflex sympathetic dystrophy, , paralysis, knee or patellar dislocation, extensor mechanism injury, bone fracture, component loosening or failure requiring re-operation or amputation. Informed consent was obtained and the patient was scheduled for surgery. We also discussed fixation strategies including cement and cementless fixation and advantages and disadvantages of each. We discussed the details of the surgery as well as rehabilitation. All questions were answered, and the patient wishes to proceed with surgery.. The patient has been ordered: No orders found for this visit on 06/12/24. CT Nora Camarillo meets the following criteria for CT: [facility] protocol CONSULTS: Cardiology Consult for cardiac clearance for stress test. Total Joint Arthroplasty: Risk Calculator Nora Camarillo has a 14.09% chance of NOT returning home at discharge for a Primary total Knee replacement. Nora's estimated Length of Stay is 2 days (Inpatient candidate). Nora's 30 day chance of readmission is 1.74%. Readmission Probability 1.74 % (within 30 days following surgery) Estimated LOS 2 days Discharge Disposition Probability D/C to Home 85.91 % D/C to SNF 14.09 % These calculations are based on the following factors: - 74 years of age - sex is not male - BMI of 32.87 kg/m2 - NarxCare score of 150 - 0 hospitalizations in the last 12 months - no history of heart disease - no history of diabetes - no history of COPD - no history of anemia - preoperative ambulation: impaired community distances - 2 step(s) to enter home - bed location is on the first floor - bath location is on the first floor - caregiver is consistent - home is not more than 150 miles away - PROMIS-10 Mental Health T score 50+ - Marital status: Risk Factors for Total Knee Arthroplasty (TKA) Major Risk Factors Obesity Moderate Risk High: BMI > 40 Moderate: BMI 30-40 Normal: BMI < 30 Diabetes normal High: A1C > 8 Moderate: A1C 7-8 Normal: A1C < 7 Hx of DVT / PE normal High: dx of DVT / PE Normal: no dx of DVT / PE Smoking normal High: Current smoker Normal: Non smoker Narcotics Use Moderate Risk High:NarxCare >=300 Moderate: 100-299 Normal: 0-99 Depression normal High: PHQ-9 >14 Moderate: PHQ-9 5-14 Normal: PHQ-9 < 5 Area Deprivation Index (ADRIANNA) Unknown Risk High: ADRIANNA Score > 75 Moderate: ADRIANNA 50-75 Normal: ADRIANNA < 50 Obesity: weight management recommended BMI Readings from Last 3 En (more content not included)...[facility]12-02-2024 History of Present illness Narrative* Bryson Dhillon MD - 06/12/2024 2:33 PM EST Images from the original note were not included. CONSULT ORTHOPAEDIC: KNEE PRIMARY CARE PHYSICIAN: Scot Blank MD REFERRING PROVIDER: Rebekah [address] [facility] [place] [address] ASSESSMENT & PLAN Impression: Right Knee Moderate Degenerative Osteoarthritis, Secondary Diagnoses: (M25.561, G89.29) Chronic pain of right knee (primary encounter diagnosis) (M17.11) Primary osteoarthritis of right knee Based upon the evaluation today and after discussions with Nora Holly, Nora Camarillo has significant, worsening pain at the knee. This pain is increased with activity and weight bearing, and interferes with activities of daily living. These symptoms have continued despite a number of non-surgical measures, including a trial of oral pain medication and attempted physical therapy/ structured exercise program and/or use of an assistive device/ bracing (for at least 12 weeks unless the patient was unable to tolerate these measures as discussed above). At this point, the patient will not benefit from further PT due to the severity of their condition. The patient's physical examination is consistent with limitations in range of motion, pain with passive range of motion, crepitus, and effusion/ synovitis. These examination findings are corroborated by imaging findings of joint space narrowing, periarticular osteophyte formation, and subchondral sclerosis. The patient has been treated by the practice and all reasonable treatments have failed to control the disease, which causes significant pain and limits activities of daily living. The patient has failed conservative treatment and joint replacement surgery was discussed and agreed upon by both provider and patient. We will proceed with surgical management to improve function and relieve pain refractory to non-surgical measures. Right Primary Total Knee Arthroplasty as evidenced by six months of unsuccessful non-operative treatment as outlined in the HPI below. Surgery Details Date and Location: At [facility] on 07/26/2024. Implants: Omro Robotic: Yes Predicted LOS: 2 days (Inpatient candidate) Informed consent obtained in the office today. The risks and benefits of surgery were discussed at length including but not limited to the risks of infection, bleeding, nerve or blood vessel injury, deep venous thrombosis, pulmonary embolism, arthrofibrosis, reflex sympathetic dystrophy, , paralysis, knee or patellar dislocation, extensor mechanism injury, bone fracture, component loosening or failure requiring re-operation or amputation. Informed consent was obtained and the patient was scheduled for surgery. We also discussed fixation strategies including cement and cementless fixation and advantages and disadvantages of each. We discussed the details of the surgery as well as rehabilitation. All questions were answered, and the patient wishes to proceed with surgery.. The patient has been ordered: No orders found for this visit on 06/12/24. CT Nora Camarillo meets the following criteria for CT: DOUGLAS protocol CONSULTS: Cardiology Consult for cardiac clearance for stress test. Total Joint Arthroplasty: Risk Calculator Nora Camarillo has a 14.09% chance of NOT returning home at discharge for a Primary total Knee replacement. Nora's estimated Length of Stay is 2 days (Inpatient candidate). Nora's 30 day chance of readmission is 1.74%. Readmission Probability 1.74 % (within 30 days following surgery) Estimated LOS 2 days Discharge Disposition Probability D/C to Home 85.91 % D/C to SNF 14.09 % These calculations are based on the following factors: - 74 years of age - sex is not male - BMI of 32.87 kg/m2 - NarxCare score of 150 - 0 hospitalizations in the last 12 months - no history of heart disease - no history of diabetes - no history of COPD - no history of anemia - preoperative ambulation: impaired community distances - 2 step(s) to enter home - bed location is on the first floor - bath location is on the first floor - caregiver is consistent - home is not more than 150 miles away - PROMIS-10 Mental Health T score 50+ - Marital status: Risk Factors for Total Knee Arthroplasty (TKA) Major Risk Factors Obesity Moderate Risk High: BMI > 40 Moderate: BMI 30-40 Normal: BMI < 30 Diabetes normal High: A1C > 8 Moderate: A1C 7-8 Normal: A1C < 7 Hx of DVT / PE normal High: dx of DVT / PE Normal: no dx of DVT / PE Smoking normal High: Current smoker Normal: Non smoker Narcotics Use Moderate Risk High:NarxCare >=300 Moderate: 100-299 Normal: 0-99 Depression normal High: PHQ-9 >14 Moderate: PHQ-9 5-14 Normal: PHQ-9 < 5 Area Deprivation Index (ADRIANNA) Unknown Risk High: ADRIANNA Score > 75 Moderate: ADRIANNA 50-75 Normal: ADRIANNA < 50 Obesity: weight management recommended BMI Readings from Last 3 Encounters: 03/24/24 : 32.87 kg/m 02/15/24 : 33.13 kg/m 02/15/24 : 33.13 kg/m Area Deprivation Index (ADRIANNA) 02/12/2022 03/03/2023 ADRIANNA Score National Score 46 36 Patient Health Questionnaire (PHQ-9) 02/12/2022 03/03/2023 03/24/2024 PHQ-9 PHQ-2 Score 4 1 1 PHQ-9 Score 13 (0-4) minimal depression, (5-9) mild depression, (10-14) moderate depression, (15-19) moderately severe depression, (20-27) severe depression Bone Density Risk Screen Nora Camarillo is at risk for bone loss. Her last bone densitometry on file was completed on 03/20/2023. Risk Factors: Dx of Osteoporosis Use of Furosemide Use of Proton Pump Inhibitors History of falls Prednisone or use of systemic steroids Chronic Malnutrition Additional Risk Factors COPD NarxCare score NARX Narcotics: 150 (06/12/2024 2:32 PM) Past Orthopaedic Surgery: Nora had knee surgery on 06/23/2019 with Bryson Dhillon. Malnutrition: No Malnutrition Screening Tool (MST) score on file- please complete the MST screeningtool (click here to open) and refresh the note. ACTIVE PROBLEM LIST Diverticulosis of Large Intestine Senile Osteoporosis Mixed Hyperlipidemia Delayed Gastric Emptying Elevated Fasting Blood Sugar Gastric Diverticulum Pud (Peptic Ulcer Disease) Gastroesophageal Reflux Disease With Esophagitis Mild Persistent Asthma Without Complication Primary Insomnia Medicare Annual Wellness Visit, Subsequent Low Back Pain Essential Tremor Bilateral Carotid Artery Stenosis Arthritis of Left Knee Obesity, Class I, Bmi 30-34.9 Palpitations Medication Management Left Lateral Abdominal Pain Chronic Bilateral Low Back Pain Allergic Rhinitis Left Leg Swelling May-Thurner Syndrome Family History of Thyroid Disease Memory Impairment Anxiety and Depression Chronic Pain of Left Knee Chronic Pain of Both Ankles Mixed Incontinence Chronic Pain of Right Knee Living Will On File Advance Directive Discussed With Patient Age-Related Osteoporosis Without Current Pathological Fracture Vitamin D Deficiency Persistent Cough Second Hand Smoke Exposure SUBJECTIVE CHIEF COMPLAINT: Knee Pain HPI: Nora Camarillo is a 74 year old patient with the presenting complaint of Follow Up of the Right Knee and Discuss Right TKA - Referred by Rebekah. 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 Theproblem began limiting activities 7-12 months ago. Nora reports a current pain level of 8 (Knee-Right). She describes the pain as Aching, Burning, Sharp. The pain is Continuous . Interventions tried include Medication. FALL RISK: Nora is not currently at risk for falls. Patient here for evaluation discuss right TKA. Patient states her knee is painful all of the time. She is having difficulty walking up and down steps. She does one step at time. Taking Aleve for the pain and helps. X-ray done on 03/03/24, US 04/13/24, MRI 05/17/24. PROMIS Physical Function Score No data to display FUNCTIONAL STATUS: Do moderate work around the house such as vacuuming, sweeping floors, or carrying in groceries (3.50 METs) PREVIOUS TREATMENTS: Last knee-related PT visit: 03/28/2019 (Knee - Left) Most recent knee injection: Large Joint Arthro/Inj: R knee joint (injected on 03/03/2024 by Garth Gonzalez) Last Knee Surgery: 06/23/2019 with Bryson Dhillon Past anti-inflammatory medications (not necessarily for this reason for visit): dexamethasone, diclofenac sodium, ibuprofen, meloxicam, methylprednisolone, naproxen, naproxen sodium, prednisone, triamcinolone acetonide Attempted Weight Loss Medical Treatments: OTC NSAIDS for 3 Months or Greater (Aleve), Steroid Injections Right Knee Previous Surgery: Knee Arthroscopy REVIEW OF SYSTEMS: PAIN ASSESSMENT: See HPI. MUSCULOSKELETAL: See HPI. No data to display PAST MEDICAL HISTORY Diagnosis Date Abnormal computed tomography angiography (CTA) 01/03/2019 right upper ICA with abnormality, consult to vascular 12/2018 Acute meniscal tear of left knee 04/13/2019 Advance directive discussed with patient 02/12/2022 Discussed 02/2022 Allergies Anxiety and depression 09/27/2020 Arthritis of left knee 02/19/2019 Bilateral carotid artery stenosis 01/03/2019 US: 12/2018 20-40% tatyana Chronic bilateral low back pain 01/01/2016 Seen [facility] Chronic pain of both ankles 09/27/2020 Chronic pain of left knee 09/27/2020 Chronic pain of right knee 09/30/2021 Sees [facility] Current use of proton pump inhibitor 08/25/2019 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 rojas Hiatal hernia 07/22/2016 Left hip pain 09/14/[address] [facility] [address] Xander Martinez Left lateral abdominal pain 02/15/2019 Mid quadrant, chronic and paroxysmal. 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 Linn Mixed hyperlipidemia 11/20/2009 Mixed incontinence 06/27/[address] Queen Obesity, Class I, BMI 30-34.9 06/15/2019 Palpitations 08/25/2019 Primary insomnia 07/22/2016 PUD (peptic ulcer disease) 03/13/2016 Hx of ulcer 2018 and two again in 10/2020. No NSAID's (aspirin held 10/2020) Second hand smoke exposure 11/08/2023 Senile osteoporosis 01/05/2006 Clinical Team Manager following (Dr. Dobson) Simple cyst of breast 11/2009 Left retroareolar Unspecified constipation PAST SURGICAL HISTORY Procedure Laterality Date APPENDECTOMY ARTHRS KNE SURG W/MENISCECTOMY MED/LAT W/SHVG Left 06/23/2019 Left knee medial and lateral menisectomies, medial and PF chondroplasties BREAST BIOPSY Left 2002 CARDIAC CATH 2004 COLONOSCOPY FLX DX W/COLLJ SPEC WHEN PFRMD 05/22/2019 Colonoscopy COLPOPEXY VAGINAL EXTRAPERITONEAL APPROACH 02/2013 repair of rectal and vaginal prolapse COLSC FLX W/RMVL OF TUMOR POLYP LESION SNARE TQ 01/28/2016 repeat 10 yrs EGD 10/16/2020 2 cratered gastric ulcers; Dr. Guillermo EGD TRANSORAL BIOPSY SINGLE/MULTIPLE 01/24/2007 EGD TRANSORAL BIOPSY SINGLE/MULTIPLE 01/28/2016 ESOPHAGEAL MOTILITY STUDY W/INTERP&RPT 04/29/2016 ESOPHAGOGASTRODUODENOSCOPY TRANSORAL DIAGNOSTIC 05/22/2005 EGD H-pylori negative ESOPHAGOGASTRODUODENOSCOPY TRANSORAL DIAGNOSTIC 03/02/2016 ESOPHAGOGASTRODUODENOSCOPY TRANSORAL DIAGNOSTIC 05/22/2019 EGD ESOPHAGOGASTRODUODENOSCOPY TRANSORAL DIAGNOSTIC 12/10/2020 healed ulcers; fundoplication intact; Dr. Guillermo GASTROESOPHAG REFLX TEST W/TELEMTRY PH ELTRD 03/02/2016 48 hour ph probe HERNIA REPAIR HX 1971 & 1973 herniorrhaphy, umbilical, right inguinal . PAST SURGICAL HISTORY OF 01/2005 heart catheterization PAST SURGICAL HISTORY OF 11/03/2004 left breast bx PAST SURGICAL HISTORY OF D & C, multiple PAST SURGICAL HISTORY OF Right 1990 carpal tunnel release PAST SURGICAL HISTORY OF Right arm surgery, ulnar nerve decompression X7 PAST SURGICAL HISTORY OF 05/2009 ganglion cyst removed right wrist PAST SURGICAL HISTORY OF 03/02/2016 pH probe PAST SURGICAL HISTORY OF Left 2002 carpal tunnel release PAST SURGICAL HISTORY OF 02/11/2017 laproscopic Walter Fundoplication.(Dr. Rojas [facility]) PAST SURGICAL HISTORY OF Right 12/2021 Tx of meniscus tear and Fx PAST SURGICAL HISTORY OF Left removal of foreign body in left foot. RECONSTRUCT VAGINAL WALL WITH MESH 04/2015 REMOVE CATARACT, INSERT LENS,EX 02/28/2009 Both Eyes REMV CATARACT EXTRACAP,INSERT LENS Bilateral RETROARC BLADDER SLING [id number] 09/03/2015 retroarc tension free vaginal sling TONSILLECTOMY HX 1956 TOTAL ABDOM HYSTERECTOMY 1989 VENOGRAM UNILATERAL 04/2020 groin FAMILY HISTORY Problem Relation Age of Onset Heart Mother Diabetes Mother Cancer Father base of skull other (parkinsons) Father Thyroid Sister Breast Cancer Sister other (hepatitis) Sister @62yrs of age/Liver Problems Thyroid Daughter Thyroid Daughter Cervical Cancer Daughter No Ocular Disease No Family History Social History Tobacco Use Smoking status: Never Passive exposure: Never Smokeless tobacco: Never Tobacco comments: Father smoked occasionally in childhood home. Spouse smoked in home until 4 years ago. Vaping Use Vaping status: Never Used Substance Use Topics Alcohol use: No Drug use: No ALLERGIES: Morphine, Nsaids (Non-Steroidal Anti-Inflammatory Drug), Advair Diskus [Fluticasone Propion-Salmeterol], Bentyl [Dicyclomine Hcl], Celebrex [Celecoxib], Dicyclomine, Estrace [Estradiol], Evista [Raloxifene Hcl], Macrobid [Nitrofurantoin Monohyd/M-Cryst], Medrol [Methylprednisolone], Mobic [Meloxicam], Oxycontin [Oxycodone Hcl], Penicillins, Prozac [Fluoxetine Hcl], Sulfamethizole, and Symax-Sl [Hyoscyamine Sulfate] MEDICATIONS: cholecalciferol, Vitamin D3, (VITAMIN D3) 1,250 mcg (50,000 unit) cap capsule Take 1 capsule by mouth one time a week. albuterol HFA (VENTOLIN HFA) 90 mcg/actuation inhaler Inhale 2 Puffs as instructed every 4 hours asneeded. Zolpidem (AMBIEN CR) 12.5 mg CR tablet Take 1 tablet by mouth at bedtime as needed for sedation forup to 90 days. Patient should start on April 27, 2024. montelukast (SINGULAIR) 10 mg tablet Take 1 tablet by mouth daily at bedtime. montelukast (SINGULAIR) 10 mg tablet Take 1 tablet by mouth daily at bedtime. pantoprazole DR (PROTONIX) 20 mg tablet Take 1 tablet by mouth two times a day as needed. nystatin (NYSTOP) powder Apply 1 application to affected area three times daily. to affected area as needed Benzonatate 200 mg capsule Take 1 capsule by mouth three times a day as needed. (Patient not taking: Reported on 06/12/2024) OBJECTIVE PHYSICAL EXAM: There were no vitals taken for this visit. All other systems deferred. GENERAL: Appears healthy, well-nourished, no deformities. HABITUS: Normal GAIT: Antalgic to the right KNEE EXAM: Right: Alignment: Varus deformity, Correctable Range of motion is 5 degrees in extension and 120 degrees of flexion. Extension La degrees Pain with ROM: Yes Effusion: Slight Tender to the palpation of Medial femoral condyle and Medial proximal tibia. Pain with patellar compression: No Stability: Anterior/Posterior stable and Varus/Valgus stable Hip Exam: flexion to 100+ degrees, full extension, internal/external rotation adequate, and no painwith log roll Neurovascular Status: Sensation Intact, Moves foot and ankle up & down, and 2+ dorsalis pedis DATA: She was last seen in orthopaedic clinic for her knee/leg on 05/29/2024 with Rebekah Eduardo. Most recent knee imaging was completed on 05/18/2024 (MRI KNEE WO IVCON RIGHT) . Attached is imaging for the order.Most recent upper leg imaging was completed on 03/07/2024 (XR LEG FRONTAL HIP TO ANKLE MECHANICAL AXIS) . Attached is imaging for the order.The last knee-related PT visit was completed on 03/28/2019 (Knee - Left). The most recent knee injection was Large Joint Arthro/Inj: R knee joint, injected on 03/03/2024 by Garth Gonzalez. Nora had knee surgery on 06/23/2019 with Bryson Dhillon. Diagnostic tests reviewed for today's visit: Right knee X-Ray: Medial joint space noted to have moderate degenerative changes and prior subchondroplasty is noted. SIGNATURE: Bryson Dhillon MD PATIENT NAME: Nora Camarillo DATE: June 12, 2024 TIME: 3:13 PM [facility] Tele[facility] encounter Note * Telephone Encounter - Treasure Sanchez MA - 06/09/2024 11:20 AM EST Given to patient as 's visit. Treasure Sanchez MA [facility]11-29-2024 Miscellaneous Notes* Telephone Encounter - Treasure Sanchez MA - 06/09/2024 11:20 AM EST Given to patient as 's visit. Treasure Sanchez MA * Telephone Encounter - Quin Costa APRN.CNP - 06/09/2024 9:53 AM EST Please let patient know order has been placed and she can stop at my office to supervisor picking crew letter. * Telephone Encounter - Angelia Jj - 06/09/2024 9:14 AM EST Nora is calling Scot Blank MD today to request a new handicap placard for patient to pick-up at front office supervisor. Please advise when ready for supervisor picking crew at home phone below verified NOTE: patient asking if this is possible to pick-up today? She is in the building around 11:00 am today Patient has been identified by name and birthdate. Duration of symptoms: ongoing Person calling: self Call patient at: at home [phone] (home) [phone] (cell) Was an appointment scheduled: No Closing statement: Results or non-symptom based questions: Thank you for calling [facility], your call will be returned within the next business day. Angelia Santiago [facility] Telephone encounter Note * Telephone Encounter - Quin Costa APRN.CNP - 06/09/2024 9:53 AM EST Please let patient know order has been placed and she can stop at my office to supervisor picking crew letter. [facility] Telephone encounter Note* Telephone Encounter - Angelia Jj - 06/09/2024 9:14 AM EST Nora is calling Scot Blank MD today to request a new handicap placard for patient to pick-up at front office supervisor. Please advise when ready for supervisor picking crew at home phone below verified NOTE: patient asking if this is possible to pick-up today? She is in the building around 11:00 am today Patient has been identified by name and birthdate. Duration of symptoms: ongoing Person calling: self Call patient at: at home [phone] (home) [phone] (cell) Was an appointment scheduled: No Closing statement: Results or non-symptom based questions: Thank you for calling [facility], your call will be returned within the next business day. Angelia Santiago [facility]11-29-2024 Telephone encounter Note* Telephone Encounter - Angelia Jj - 06/09/2024 9:11 AM EST Prescription Refill Information The patient has been identified by name and date of : Yes Caregiver verified no other encounters exist for this prescription request: Yes Caregiver confirmed with patient/requestor that no other refills are due, in the near future, with this provider at this time: Yes The last office visit in the department: 03/24/2024 Does the patient have a future office visit with this provider/department: Yes Requested Prescriptions Pending Prescriptions Disp Refills cholecalciferol, Vitamin D3, (VITAMIN D3) 1,250 mcg (50,000 unit) cap capsule 12 capsule 1 Sig: Take 1 capsule by mouth one time a week. Angelia Santiago June 09, 2024 9:12 AM [facility] Miscellaneous Notes* Telephone Encounter - Angelia Jj - 06/09/2024 9:11 AM EST Prescription Refill Information The patient has been identified by name and date of : Yes Caregiver verified no other encounters exist for this prescription request: Yes Caregiver confirmed with patient/requestor that no other refills are due, in the near future, with this provider at this time: Yes The last office visit in the department: 03/24/2024 Does the patient have a future office visit with this provider/department: Yes Requested Prescriptions Pending Prescriptions Disp Refills cholecalciferol, Vitamin D3, (VITAMIN D3) 1,250 mcg (50,000 unit) cap capsule 12 capsule 1 Sig: Take 1 capsule by mouth one time a week. Angelia Santiago June 09, 2024 9:12 AM documented in this encounterWood [facility]11-[facility]24 NoteHNO ID: [id number] Author: REBEKAH EDUARDO PA-C Service: ? Author Type: Physician Professional Application Designer Type: Progress Notes Filed: 05/29/2024 09:48 Note Text: Rebekah Eduardo PA-C Department of Orthopaedics [facility] [address] [facility] [address] Dept: [phone] Dept May 29, 2024 CHIEF COMPLAINT: Results - Mri of the Right Knee Ms. Nora Camarillo is a 74 year old female who presents to discuss the results of her recent right knee MRI. Patient reports several years ago she had a knee arthroscopy with Dr. Pineda, also had a subchondral plasty. Has had pain along the medial aspect of her knee since the surgery. Pain is getting much worse, she has a constant aching in the lambert area. She is unable to tolerate NSAIDs as she has had a Walter procedure in the past. She has had multiple right knee corticosteroid injections which are no longer of benefit. She is not interested in viscosupplementation. ASSESSMENT: M17.5 Other secondary osteoarthritis of right knee (primary encounter diagnosis) PLAN: Patient has severe osteoarthritis of the knee. We discussed a total knee arthroplasty. She would like to get into one of our surgeons to schedule surgery. Will get her scheduled appropriately. Will continue to monitor patient for Other secondary osteoarthritis of right knee (primary encounter diagnosis), patient to schedule visit as per follow up discussed. Ms. Nora Camarillo was advised as to contrast therapies and/or to take analgesics/anti-inflammatories as needed and all contraindications were reviewed. OBJECTIVE: Ms. Nora Camarillo is a pleasant 74 year old in no apparent distress. Gen:There were no vitals taken for this visit. nl development, obese, no deformities ENT: Normocephalic, normal hearing, moist mucosa CV: Pulses:Radial= 2+ and symmetric, capillary refill < 2 secs, no peripheral edema/varicosities Skin: no rash, bruising or lesions. Good turgor. Psych: cooperative and appropriate, alert and oriented x 3, good mood and affect. Musculoskeletal: Right knee with a correctable valgus deformity. Range of motion of 5 degrees extension and flexion to about 110 degrees. Medial joint line tenderness. Imaging: IMPRESSION: Complex medial meniscal tear with extrusion. 5.4 cm multiloculated cystic collection along the medial knee soft tissues. Primary differential considerations are large multiloculated parameniscal cyst versus MCL bursitis. Tricompartment degenerative chondral changes, high-grade in the medial compartment as detailed with postoperative changes of medial tibial plateau subchondroplasty. Buttermaker: NANCY Transcribe Date/Time: May 18 2024 1:25P Dictated by : JERMAINE DHILLON MD This examination was interpreted and the report reviewed and electronically signed by: JERMAINE DHILLON MD on May 18 2024 1:48PM EST Results-Findings * * *Final Report* * * DATE OF EXAM: May 17 2024 4:58PM [id number] - MRI KNEE WO IVCON RT / PROCEDURE REASON: Other secondary osteoarthritis of right knee * * * * Physician Interpretation * * * * EXAMINATION: MRI RIGHT KNEE WITHOUT CONTRAST CLINICAL HISTORY: Medial knee pain TECHNIQUE: Routine non-contrast MRI of the knee MQ: [id number] COMPARISON: 03/03/2024 radiographs RESULT: MENISCI: Medial Meniscus: Complex tear in the posterior horn and body with horizontal and complete radial components near the posterior root with associated extrusion of the meniscal body into the medial gutter. Lateral Meniscus: Intact. LIGAMENTS: ACL: Intact with mucoid degeneration PCL: Intact with ganglion cyst near the femoral attachment. MCL: Intact LCL Complex: Intact CARTILAGE: Medial Femoral Condyle: Moderate sized area(s) of predominantly high grade (greater than 50% thickness) cartilage loss and or fissuring with smaller area(s) of full thickness cartilage loss and or fissuring with subchondral marrow reactive/cystic changes Medial Tibial Plateau: Moderate sized area(s) of predominantly high grade (greater than 50% thickness) cartilage loss and or fissuring with smaller area(s) of full thickness cartilage loss and or fissuring with subchondral marrow reactive/cystic changes Lateral Femoral Condyle: Small area(s) of low grade (less than 50% thickness) partial thickness cartilage loss and or fissuring Lateral Tibial Plateau: Normal Patella: Small areas(s) of predominantly low grade (less than 50% thickness) cartilage loss and or fissuring with smaller area(s) of full thickness cartilage loss and or fissuring Trochlea: Small areas(s) of predominantly high grade (greater than 50% thickness) cartilage loss and or fissuring with smaller area(s) of full thickness cartilage loss and or fissuring TENDONS: The distal quadriceps and patellar tendons are intact. The popliteus tendon is intact. BONES AND MARROW: Postoperative changes of medial tibial plateau subchondro (more content not included)...[facility]11-18-2024 History of Present illness Narrative* Rebekah Eduardo PA-C - 05/29/2024 8:33 AM EST Rebekah Eduardo PA-C Department of Orthopaedics Orthopaedics [address] [facility] [place] [address] Dept: [phone] Dept May 29, 2024 CHIEF COMPLAINT: Results - Mri of the Right Knee Ms. Nora Camarillo is a 74 year old female who presents to discuss the results of her recent right knee MRI. Patient reports several years ago she had a knee arthroscopy with Dr. Pineda, also had a subchondral plasty. Has had pain along the medial aspect of her knee since the surgery. Pain is getting much worse, she has a constant aching in the lambert area. She is unable to tolerate NSAIDs as she has had a Walter procedure in the past. She has had multiple right knee corticosteroid injections which are no longer of benefit. She is not interested in viscosupplementation. ASSESSMENT: M17.5 Other secondary osteoarthritis of right knee (primary encounter diagnosis) PLAN: Patient has severe osteoarthritis of the knee. We discussed a total knee arthroplasty. She would like to get into one of our surgeons to schedule surgery. Will get her scheduled appropriately. Will continue to monitor patient for Other secondary osteoarthritis of right knee (primary encounter diagnosis), patient to schedule visit as per follow up discussed. Ms. Nora Camarillo was advised as to contrast therapies and/or to take analgesics/anti-inflammatories as needed and all contraindications were reviewed. OBJECTIVE: Ms. Nora Camarillo is a pleasant 74 year old in no apparent distress. Gen:There were no vitals taken for this visit. nl development, obese, no deformities ENT: Normocephalic, normal hearing, moist mucosa CV: Pulses:Radial= 2+ and symmetric, capillary refill < 2 secs, no peripheral edema/varicosities Skin: no rash, bruising or lesions. Good turgor. Psych: cooperative and appropriate, alert and oriented x 3, good mood and affect. Musculoskeletal: Right knee with a correctable valgus deformity. Range of motion of 5 degrees extension and flexion to about 110 degrees. Medial joint line tenderness. Imaging: IMPRESSION: Complex medial meniscal tear with extrusion. 5.4 cm multiloculated cystic collection along the medial knee soft tissues. Primary differential considerations are large multiloculated parameniscal cyst versus MCL bursitis. Tricompartment degenerative chondral changes, high-grade in the medial compartment as detailed with postoperative changes of medial tibial plateau subchondroplasty. Buttermaker: NANCY Transcribe Date/Time: May 18 2024 1:25P Dictated by : JERMAINE DHILLON MD This examination was interpreted and the report reviewed and electronically signed by: JERMAINE DHILLON MD on May 18 2024 1:48PM EST Results-Findings * * *Final Report* * * DATE OF EXAM: May 17 2024 4:58PM WRM [id number] - MRI KNEE WO IVCON RT / PROCEDURE REASON: Other secondary osteoarthritis of right knee * * * * Physician Interpretation * * * * EXAMINATION: MRI RIGHT KNEE WITHOUT CONTRAST CLINICAL HISTORY: Medial knee pain TECHNIQUE: Routine non-contrast MRI of the knee MQ: [id number] COMPARISON: 03/03/2024 radiographs RESULT: MENISCI: Medial Meniscus: Complex tear in the posterior horn and body with horizontal and complete radial components near the posterior root with associated extrusion of the meniscal body into the medial gutter. Lateral Meniscus: Intact. LIGAMENTS: ACL: Intact with mucoid degeneration PCL: Intact with ganglion cyst near the femoral attachment. MCL: Intact LCL Complex: Intact CARTILAGE: Medial Femoral Condyle: Moderate sized area(s) of predominantly high grade (greater than 50% thickness) cartilage loss and or fissuring with smaller area(s) of full thickness cartilage loss and or fissuring with subchondral marrow reactive/cystic changes Medial Tibial Plateau: Moderate sized area(s) of predominantly high grade (greater than 50% thickness) cartilage loss and or fissuring with smaller area(s) of full thickness cartilage loss and or fissuring with subchondral marrow reactive/cystic changes Lateral Femoral Condyle: Small area(s) of low grade (less than 50% thickness) partial thickness cartilage loss and or fissuring Lateral Tibial Plateau: Normal Patella: Small areas(s) of predominantly low grade (less than 50% thickness) cartilage loss and or fissuring with smaller area(s) of full thickness cartilage loss and or fissuring Trochlea: Small areas(s) of predominantly high grade (greater than 50% thickness) cartilage loss and or fissuring with smaller area(s) of full thickness cartilage loss and or fissuring TENDONS: The distal quadriceps and patellar tendons are intact. The popliteus tendon is intact. BONES AND MARROW: Postoperative changes of medial tibial plateau subchondroplasty. No evidence of fracture or bone marrow replacing process. MUSCLES: Muscle bulk and signal intensity are normal. JOINT FLUID AND SYNOVIUM: No significant joint effusion. No synovitis. Small multiloculated Dickey's cyst. Large multiloculated cystic collection along the medial aspect of the knee, deep to the medial collateral ligament and portion of the semimembranosus tendon extending inferior to the medial joint line measuring about 3.7 x 1.0 x 5.4 cm (3:33 and 4:24). OTHER: No other significant abnormality identified. Localizer images: No additional findings. Supporting Subjective Information Below: Past Surgical History: PAST SURGICAL HISTORY Procedure Laterality Date APPENDECTOMY ARTHRS KNE SURG W/MENISCECTOMY MED/LAT W/SHVG Left 06/23/2019 Left knee medial and lateral menisectomies, medial and PF chondroplasties BREAST BIOPSY Left 2002 CARDIAC CATH 2004 COLONOSCOPY FLX DX W/COLLJ SPEC WHEN PFRMD 05/22/2019 Colonoscopy COLPOPEXY VAGINAL EXTRAPERITONEAL APPROACH 02/2013 repair of rectal and vaginal prolapse COLSC FLX W/RMVL OF TUMOR POLYP LESION SNARE TQ 01/28/2016 repeat 10 yrs EGD 10/16/2020 2 cratered gastric ulcers; Dr. Guillermo EGD TRANSORAL BIOPSY SINGLE/MULTIPLE 01/24/2007 EGD TRANSORAL BIOPSY SINGLE/MULTIPLE 01/28/2016 ESOPHAGEAL MOTILITY STUDY W/INTERP&RPT 04/29/2016 ESOPHAGOGASTRODUODENOSCOPY TRANSORAL DIAGNOSTIC 05/22/2005 EGD H-pylori negative ESOPHAGOGASTRODUODENOSCOPY TRANSORAL DIAGNOSTIC 03/02/2016 ESOPHAGOGASTRODUODENOSCOPY TRANSORAL DIAGNOSTIC 05/22/2019 EGD ESOPHAGOGASTRODUODENOSCOPY TRANSORAL DIAGNOSTIC 12/10/2020 healed ulcers; fundoplication intact; Dr. Guillermo GASTROESOPHAG REFLX TEST W/TELEMTRY PH ELTRD 03/02/2016 48 hour ph probe HERNIA REPAIR HX 1971 & 1972 herniorrhaphy, umbilical, right inguinal . PAST SURGICAL HISTORY OF 01/2005 heart catheterization PAST SURGICAL HISTORY OF 11/03/2004 left breast bx PAST SURGICAL HISTORY OF D & C, multiple PAST SURGICAL HISTORY OF Right 1990 carpal tunnel release PAST SURGICAL HISTORY OF Right arm surgery, ulnar nerve decompression X7 PAST SURGICAL HISTORY OF 05/2009 ganglion cyst removed right wrist PAST SURGICAL HISTORY OF 03/02/2016 pH probe PAST SURGICAL HISTORY OF Left 2002 carpal tunnel release PAST SURGICAL HISTORY OF 02/11/2017 laproscopic Walter Fundoplication.(Dr. [facility]) PAST SURGICAL HISTORY OF Right 12/2021 Tx of meniscus tear and Fx PAST SURGICAL HISTORY OF Left removal of foreign body in left foot. RECONSTRUCT VAGINAL WALL WITH MESH 04/2015 REMOVE CATARACT, INSERT LENS,EX 02/28/2009 Both Eyes REMV CATARACT EXTRACAP,INSERT LENS Bilateral RETROARC BLADDER SLING [id number] 09/03/2015 retroarc tension free vaginal sling TONSILLECTOMY HX 195 TOTAL ABDOM HYSTERECTOMY 1989 VENOGRAM UNILATERAL 04/2020 groin Medications: Current Outpatient Medications Medication Sig albuterol HFA (VENTOLIN HFA) 90 mcg/actuation inhaler Inhale 2 Puffs as instructed every 4 hours asneeded. Zolpidem (AMBIEN CR) 12.5 mg CR tablet Take 1 tablet by mouth at bedtime as needed for sedation forup to 90 days. Patient should start on April 27, 2024. cholecalciferol, Vitamin D3, (VITAMIN D3) 1,250 mcg (50,000 unit) cap capsule Take 1 capsule by mouth one time a week. montelukast (SINGULAIR) 10 mg tablet Take 1 tablet by mouth daily at bedtime. pantoprazole DR (PROTONIX) 20 mg tablet Take 1 tablet by mouth two times a day as needed. nystatin (NYSTOP) powder Apply 1 application to affected area three times daily. to affected area as needed montelukast (SINGULAIR) 10 mg tablet Take 1 tablet by mouth daily at bedtime. Benzonatate 200 mg capsule Take 1 capsule by mouth three times a day as needed. (Patient not taking: Reported on 04/25/2024) No current facility-administered medications for this visit. Allergies: Morphine, Nsaids (Non-Steroidal Anti-Inflammatory Drug), Advair Diskus [Fluticasone Propion-Salmeterol], Bentyl [Dicyclomine Hcl], Celebrex [Celecoxib], Dicyclomine, Estrace [Estradiol], Evista [Raloxifene Hcl], Macrobid [Nitrofurantoin Monohyd/M-Cryst], Medrol [Methylprednisolone], Mobic [Meloxicam], Oxycontin [Oxycodone Hcl], Penicillins, Prozac [Fluoxetine Hcl], Sulfamethizole, and Symax-Sl [Hyoscyamine Sulfate] ROS: General (negative for fatigue, malaise, weight loss/gain) HEENT (negative for headache, earache, recent vision changes, sinus pain, sore throat) Respiratory (no recent shortness of breath, hemoptysis) CV (negative for chest tightness, palpitations) Musculoskeletal (see HPI) Psych (no depression, anxiety) This note was partially generated using [employer] voice recognition system, and there may be some incorrect words, spellings, and punctuation that were not noted in checking the note before saving. Rebekah Eduardo PA-C * Nora Escalante MA - 05/29/2024 8:10 AM EST Patient presents with: Right Knee - Results - Mri AMB ROOMING INTAKE FLOWSHEET DATA Pain Pain Level: 6 Pain Location: Knee-Right Description: Aching, Burning Duration Amount of Time: (Ongoing) Frequency: Continuous Intervention/Comfort measure: Medication Patient here for MRI results. Taking Aleve for the pain when needed. with patient today. [facility] NoteHNO ID: [id number] Author: NORA ESCALANTE MA Service: ? Author Type: Church Supervisor Type: Progress Notes Filed: 05/29/2024 09:48 Note Text: Patient presents with: Right Knee - Results - Mri AMB ROOMING INTAKE FLOWSHEET DATA Pain Pain Level: 6 Pain Location: Knee-Right Description: Aching, Burning Duration Amount of Time: (Ongoing) Frequency: Continuous Intervention/Comfort measure: Medication Patient here for MRI results. Taking Aleve for the pain when needed. with patient today.[facility] History of Present illness Narrative* Fadumo Echavarria RT(R) - 05/17/2024 4:30 PM EST Radiology Service Progress Note PATIENT NAME: Nora Camarillo DATE OF SERVICE: May 17, 2024 TIME: 4:33 PM PATIENT IDENTITY VERIFICATION COMPLETED USING TWO (2) IDENTIFIERS: Name and Date of confirmedby patient verbally. FALL SCREENING: Has the patient had 2 falls in the last year or 1 fall with injury or currently using an Ambulatory Assistive Device (Walker, Cane, Wheelchair, Crutches, etc.)? No PATIENT GENDER DATA: Female. status: : No status: NO. PATIENT RELEVANT IMPLANT DATA REVIEWED: Yes PATIENT PRESENTS WITH AN IMPLANTABLE OR ATTACHED RUG DRY ROOM ATTENDANT: No RADIOLOGY DEPARTMENT: MR; Exam(s) Completed: Lower MSK: Knee, right PERIPHERAL IV DATA: Not applicable SIGNED BY: RT Alphonse(Flavio) May 17, 2024 4:33 PM [facility] NoteHNO ID: [id number] Author: FADUMO ECHAVARRIA RT(R) Service: ? Author Type: Technologist Type: Progress Notes Filed: 05/17/2024 16:33 Note Text: Radiology Service Progress Note PATIENT NAME: Nora Camarillo DATE OF SERVICE: May 17, 2024 TIME: 4:33 PM PATIENT IDENTITY VERIFICATION COMPLETED USING TWO (2) IDENTIFIERS: Name and Date of confirmed by patient verbally. FALL SCREENING: Has the patient had 2 falls in the last year or 1 fall with injury or currently using an Ambulatory Assistive Device (Walker, Cane, Wheelchair, Crutches, etc.)? No PATIENT GENDER DATA: Female. status: : No status: NO. PATIENT RELEVANT IMPLANT DATA REVIEWED: Yes PATIENT PRESENTS WITH AN IMPLANTABLE OR ATTACHED RUG DRY ROOM ATTENDANT: No RADIOLOGY DEPARTMENT: MR; Exam(s) Completed: Lower MSK: Knee, right PERIPHERAL IV DATA: Not applicable SIGNED BY: RT Alphonse(R) May 17, 2024 4:33 [facility]11-04-2024 NoteHNO ID: [id number] Author: REBEKAH EDUARDO PA-C Service: ? Author Type: Physician Professional Application Designer Type: Progress Notes Filed: 05/15/2024 14:17 Note Text: Rebekah Eduardo PA-C Department of Orthopaedics Orthopa[facility] [address] [place] [address] Dept: [phone] Dept May 15, 2024 CHIEF COMPLAINT: Established Patient and Follow Up of the Right Knee Ms. Nora Camarillo is a 74 year old female who presents with medial right knee pain which has been bothering her for the past several years. Patient reports that she had a knee arthroscopy with Dr. Pineda, after waking from surgery she had pain along the medial aspect of her knee which has never resolved. The pain is getting worse with time, she notes some burning pain that radiates into the lambert. Knee is swollen. Pain is worse with activity. She is unable to tolerate oral NSAIDs as she has had a Walter procedure and also a history of peptic ulcer disease. She has had multiple corticosteroid injections in the right knee which she did not find to be of benefit. She is not interested in trying viscosupplementation. She is very concerned that she may have another meniscal tear. ASSESSMENT: M25.561, G89.29 Chronic pain of right knee (primary encounter diagnosis) M17.11 Primary osteoarthritis of right knee PLAN: She certainly has osteoarthritis of the right knee, he can also see where she had a subchondral plasty. On x-ray arthritis appears to be moderate in severity. We discussed getting an MRI for further evaluation, I suspect that she has rather severe medial compartment osteoarthritis and would likely benefit from total joint arthroplasty. Will get the MRI and see her back in the office to discuss further. Will continue to monitor patient for Other secondary osteoarthritis of right knee (primary encounter diagnosis), patient to schedule visit as per follow up discussed. Ms. Nora Camarillo was advised as to contrast therapies and/or to take analgesics/anti-inflammatories as needed and all contraindications were reviewed. OBJECTIVE: Ms. Nora Camarillo is a pleasant 74 year old in no apparent distress. Gen:There were no vitals taken for this visit. nl development, obese, no deformities ENT: Normocephalic, normal hearing, moist mucosa CV: Pulses:DP/PT= 2+ and symmetric, capillary refill < 2 secs, no peripheral edema/varicosities Skin: no rash, bruising or lesions. Good turgor. Psych: cooperative and appropriate, alert and oriented x 3, good mood and affect. Musculoskeletal: KNEE EXAM: Right: Alignment: Varus deformity, Correctable Range of motion is 5 degrees in extension and 110 degrees of flexion. Extension La degrees Pain with ROM: Yes Effusion: Slight Tender to the palpation of Pes anserine bursa and Medial joint line Pain with patellar compression: No Stability: Anterior/Posterior stable and Varus/Valgus stable Hip Exam: flexion to 100+ degrees, full extension, internal/external rotation adequate, and no pain with log roll Neurovascular Status: Sensation Intact, Moves foot and ankle up AND down, and 2+ dorsalis pedis Imaging: IMPRESSION: Postoperative and degenerative changes in the RIGHT knee. Buttermaker: NANCY Transcribe Date/Time: Mar 06 2024 4:09P Dictated by : CATHY VIDAL DO This examination was interpreted and the report reviewed and electronically signed by: CATHY VIDAL DO on Mar 06 2024 4:14PM EST Results-Findings * * *Final Report* * * DATE OF EXAM: Mar 03 2024 9:29AM REMBERTO 5203 - XR KNEE 4V AP/PA BOTH+LAT/REBEKA RT / PROCEDURE REASON: [id number] * * * * Physician Interpretation * * * * EXAMINATION: XR KNEE 4V AP/PA BOTH+LAT/REBEKA RT PATIENT/TECHNOLOGIST PROVIDED HISTORY: right knee pain CLINICAL INFORMATION: 73 years old Female with Pain TECHNIQUE: XR KNEE 4V AP/PA BOTH+LAT/REBEKA RT Laterality: RIGHT Number of different views (projections): 4 COMPARISON: Radiographs 02/17/2019 RESULT: No fracture. Interval postsurgical changes of subchondroplasty within the medial tibial plateau. Small tricompartmental osteophytes with mild-moderate medial compartment joint space narrowing. No joint effusion. Images of the LEFT knee demonstrate: Calcification along the proximal MCL which could be related to calcific periarthritis and moderate medial compartment joint space narrowing with small marginal osteophytes. Supporting Subjective Information Below: Past Surgical History: PAST SURGICAL HISTORY Procedure Laterality Date APPENDECTOMY ARTHRS KNE SURG W/MENISCECTOMY MED/LAT W/SHVG Left 06/23/2019 Left knee medial and lateral menisectomies, medial and PF chondroplasties BREAST BIOPSY Left 2003 CARDIAC CATH 2004 COLONOSCOPY FLX DX W/COLLJ SPEC WHEN PFRMD 05/22/2019 Colonoscopy COLPOPEXY VAGINAL EXTRAPERITONEAL APPROACH 02/2013 repair of rectal and vaginal prolapse COLSC FLX W/RMVL OF TUMOR POLYP LESION SNARE TQ 0 (more content not included)... [facility]11-04-[facility] History of Present illness Narrative* Rebekah Eduardo PA-C - 05/15/2024 2:12 PM EST Rebekah Eduardo PA-C Department of Orthopaedics Orthopaedics [address] [facility] [address] Dept: [phone] Dept May 15, 2024 CHIEF COMPLAINT: Established Patient and Follow Up of the Right Knee Ms. Nora Camarillo is a 74 year old female who presents with medial right knee pain which has been bothering her for the past several years. Patient reports that she had a knee arthroscopy with Dr. Pineda, after waking from surgery she had pain along the medial aspect of her knee which has never resolved. The pain is getting worse with time, she notes some burning pain that radiates into the lambert. Knee is swollen. Pain is worse with activity. She is unable to tolerate oral NSAIDs as she has had a Walter procedure and also a history of peptic ulcer disease. She has had multiple corticosteroid injections in the right knee which she did not find to be of benefit. She is not interested in trying vi scosupplementation. She is very concerned that she may have another meniscal tear. ASSESSMENT: M25.561, G89.29 Chronic pain of right knee (primary encounter diagnosis) M17.11 Primary osteoarthritis of right knee PLAN: She certainly has osteoarthritis of the right knee, he can also see where she had a subchondral plasty. On x-ray arthritis appears to be moderate in severity. We discussed getting an MRI for further evaluation, I suspect that she has rather severe medial compartment osteoarthritis and would likely benefit from total joint arthroplasty. Will get the MRI and see her back in the office to discuss further. Will continue to monitor patient for Other secondary osteoarthritis of right knee (primary encounter diagnosis), patient to schedule visit as per follow up discussed. Ms. Nora Camarillo was advised as to contrast therapies and/or to take analgesics/anti-inflammatories as needed and all contraindications were reviewed. OBJECTIVE: Ms. Nora Camarillo is a pleasant 74 year old in no apparent distress. Gen:There were no vitals taken for this visit. nl development, obese, no deformities ENT: Normocephalic, normal hearing, moist mucosa CV: Pulses:DP/PT= 2+ and symmetric, capillary refill < 2 secs, no peripheral edema/varicosities Skin: no rash, bruising or lesions. Good turgor. Psych: cooperative and appropriate, alert and oriented x 3, good mood and affect. Musculoskeletal: KNEE EXAM: Right: Alignment: Varus deformity, Correctable Range of motion is 5 degrees in extension and 110 degrees of flexion. Extension La degrees Pain with ROM: Yes Effusion: Slight Tender to the palpation of Pes anserine bursa and Medial joint line Pain with patellar compression: No Stability: Anterior/Posterior stable and Varus/Valgus stable Hip Exam: flexion to 100+ degrees, full extension, internal/external rotation adequate, and no painwith log roll Neurovascular Status: Sensation Intact, Moves foot and ankle up & down, and 2+ dorsalis pedis Imaging: IMPRESSION: Postoperative and degenerative changes in the RIGHT knee. Buttermaker: NANCY Transcribe Date/Time: Mar 06 2024 4:09P Dictated by : CATHY VIDAL DO This examination was interpreted and the report reviewed and electronically signed by: CATHY VIDAL DO on Mar 06 2024 4:14PM EST Results-Findings * * *Final Report* * * DATE OF EXAM: Mar 03 2024 9:29AM REMBERTO 5203 - XR KNEE 4V AP/PA BOTH+LAT/REBEKA RT / PROCEDURE REASON: [id number] * * * * Physician Interpretation * * * * EXAMINATION: XR KNEE 4V AP/PA BOTH+LAT/REBEKA RT PATIENT/TECHNOLOGIST PROVIDED HISTORY: right knee pain CLINICAL INFORMATION: 73 years old Female with Pain TECHNIQUE: XR KNEE 4V AP/PA BOTH+LAT/REBEKA RT Laterality: RIGHT Number of different views (projections): 4 COMPARISON: Radiographs 02/17/2019 RESULT: No fracture. Interval postsurgical changes of subchondroplasty within the medial tibial plateau. Small tricompartmental osteophytes with mild-moderate medial compartment joint space narrowing. No joint effusion. Images of the LEFT knee demonstrate: Calcification along the proximal MCL which could be related to calcific periarthritis and moderate medial compartment joint space narrowing with small marginal osteophytes. Supporting Subjective Information Below: Past Surgical History: PAST SURGICAL HISTORY Procedure Laterality Date APPENDECTOMY ARTHRS KNE SURG W/MENISCECTOMY MED/LAT W/SHVG Left 06/23/2019 Left knee medial and lateral menisectomies, medial and PF chondroplasties BREAST BIOPSY Left 2002 CARDIAC CATH 2004 COLONOSCOPY FLX DX W/COLLJ SPEC WHEN PFRMD 05/22/2019 Colonoscopy COLPOPEXY VAGINAL EXTRAPERITONEAL APPROACH 02/2013 repair of rectal and vaginal prolapse COLSC FLX W/RMVL OF TUMOR POLYP LESION SNARE TQ 01/28/2016 repeat 10 yrs EGD 10/16/2020 2 cratered gastric ulcers; Dr. Guillermo EGD TRANSORAL BIOPSY SINGLE/MULTIPLE 01/24/2007 EGD TRANSORAL BIOPSY SINGLE/MULTIPLE 01/28/2016 ESOPHAGEAL MOTILITY STUDY W/INTERP&RPT 04/29/2016 ESOPHAGOGASTRODUODENOSCOPY TRANSORAL DIAGNOSTIC 05/22/2005 EGD H-pylori negative ESOPHAGOGASTRODUODENOSCOPY TRANSORAL DIAGNOSTIC 03/02/2016 ESOPHAGOGASTRODUODENOSCOPY TRANSORAL DIAGNOSTIC 05/22/2019 EGD ESOPHAGOGASTRODUODENOSCOPY TRANSORAL DIAGNOSTIC 12/10/2020 healed ulcers; fundoplication intact; Dr. Guillermo GASTROESOPHAG REFLX TEST W/TELEMTRY PH ELTRD 03/02/2016 48 hour ph probe HERNIA REPAIR HX 1971 & 1973 herniorrhaphy, umbilical, right inguinal . PAST SURGICAL HISTORY OF 01/2005 heart catheterization PAST SURGICAL HISTORY OF 11/03/2004 left breast bx PAST SURGICAL HISTORY OF D & C, multiple PAST SURGICAL HISTORY OF Right 1990 carpal tunnel release PAST SURGICAL HISTORY OF Right arm surgery, ulnar nerve decompression X7 PAST SURGICAL HISTORY OF 05/2009 ganglion cyst removed right wrist PAST SURGICAL HISTORY OF 03/02/2016 pH probe PAST SURGICAL HISTORY OF Left 2002 carpal tunnel release PAST SURGICAL HISTORY OF 02/11/2017 laproscopic Walter Fundoplication.(Dr. [facility]) PAST SURGICAL HISTORY OF Right 12/2021 Tx of meniscus tear and Fx PAST SURGICAL HISTORY OF Left removal of foreign body in left foot. RECONSTRUCT VAGINAL WALL WITH MESH 04/2015 REMOVE CATARACT, INSERT LENS,EX 02/28/2009 Both Eyes REMV CATARACT EXTRACAP,INSERT LENS Bilateral RETROARC BLADDER SLING [id number] 09/03/2015 retroarc tension free vaginal sling TONSILLECTOMY HX 1956 TOTAL ABDOM HYSTERECTOMY 1989 VENOGRAM UNILATERAL 04/2020 groin Medications: Current Outpatient Medications Medication Sig albuterol HFA (VENTOLIN HFA) 90 mcg/actuation inhaler Inhale 2 Puffs as instructed every 4 hours asneeded. Zolpidem (AMBIEN CR) 12.5 mg CR tablet Take 1 tablet by mouth at bedtime as needed for sedation forup to 90 days. Patient should start on April 27, 2024. cholecalciferol, Vitamin D3, (VITAMIN D3) 1,250 mcg (50,000 unit) cap capsule Take 1 capsule by mouth one time a week. montelukast (SINGULAIR) 10 mg tablet Take 1 tablet by mouth daily at bedtime. pantoprazole DR (PROTONIX) 20 mg tablet Take 1 tablet by mouth two times a day as needed. nystatin (NYSTOP) powder Apply 1 application to affected area three times daily. to affected area as needed montelukast (SINGULAIR) 10 mg tablet Take 1 tablet by mouth daily at bedtime. Benzonatate 200 mg capsule Take 1 capsule by mouth three times a day as needed. (Patient not taking: Reported on 04/25/2024) No current facility-administered medications for this visit. Allergies: Morphine, Nsaids (Non-Steroidal Anti-Inflammatory Drug), Advair Diskus [Fluticasone Propion-Salmeterol], Bentyl [Dicyclomine Hcl], Celebrex [Celecoxib], Dicyclomine, Estrace [Estradiol], Evista [Raloxifene Hcl], Macrobid [Nitrofurantoin Monohyd/M-Cryst], Medrol [Methylprednisolone], Mobic [Meloxicam], Oxycontin [Oxycodone Hcl], Penicillins, Prozac [Fluoxetine Hcl], Sulfamethizole, and Symax-Sl [Hyoscyamine Sulfate] ROS: General (negative for fatigue, malaise, weight loss/gain) HEENT (negative for headache, earache, recent vision changes, sinus pain, sore throat) Respiratory (no recent shortness of breath, hemoptysis) CV (negative for chest tightness, palpitations) Musculoskeletal (see HPI) Psych (no depression, anxiety) This note was partially generated using [employer] voice recognition system, and there may be some incorrect words, spellings, and punctuation that were not noted in checking the note before saving. Rebekah Eduardo PA-C * Haritha Pascual MA - 05/15/2024 11:26 AM EST AMB ROOMING INTAKE FLOWSHEET DATA Pain Pain Level: 8 Pain Location: Knee-Right Description: Throbbing, Aching, Burning Duration Amount of Time: 2.5 Duration Units: Years Frequency: Continuous Intervention/Comfort measure: Other: See comment (estephania nunez) [facility] NoteHNO ID: [id number] Author: HARITHA PASCUAL MA Service: ? Author Type: Church Supervisor Type: Progress Notes Filed: 05/15/2024 14:17 Note Text: AMB ROOMING INTAKE FLOWSHEET DATA Pain Pain Level: 8 Pain Location: Knee-Right Description: Throbbing, Aching, Burning Duration Amount of Time: 2.5 Duration Units: Years Frequency: Continuous Intervention/Comfort measure: Other: See comment (estephania nunez)[facility]10-16-2024 Telephone encounter Note* Telephone Encounter - Scot Blank MD - 04/26/2024 11:24 AM EDT The following approved medication requests have been transmitted electronically. Requested Prescriptions Signed Prescriptions Disp Refills albuterol HFA (VENTOLIN HFA) 90 mcg/actuation inhaler 1 Each 3 Sig: Inhale 2 Puffs as instructed every 4 hours as needed. Authorizing Provider: SCOT BLANK Zolpidem (AMBIEN CR) 12.5 mg CR tablet 90 tablet 0 Sig: Take 1 tablet by mouth at bedtime as needed for sedation for up to 90 days. Patient should start on April 27, 2024. Authorizing Provider: SCOT BLANK MD PDMP website checked and validated. All prescriptions have been APPROPRIATELY filled. No suspiciousactivity was identified. 04/26/2024 by Scot Blank MD [facility]10-16-[facility] Miscellaneous Notes* Telephone Encounter - Scot Blank MD - 04/26/2024 11:24 AM EDT The following approved medication requests have been transmitted electronically. Requested Prescriptions Signed Prescriptions Disp Refills albuterol HFA (VENTOLIN HFA) 90 mcg/actuation inhaler 1 Each 3 Sig: Inhale 2 Puffs as instructed every 4 hours as needed. Authorizing Provider: SCOT BLANK Zolpidem (AMBIEN CR) 12.5 mg CR tablet 90 tablet 0 Sig: Take 1 tablet by mouth at bedtime as needed for sedation for up to 90 days. Patient should start on April 27, 2024. Authorizing Provider: SCOT BLANK MD PDMP website checked and validated. All prescriptions have been APPROPRIATELY filled. No suspiciousactivity was identified. 04/26/2024 by Scot Blank MD * Telephone Encounter - Nakia Merida - 04/26/2024 9:04 AM EDT Patient has been identified by name and date of : Yes, Patient phones for refill(s): Requested Prescriptions Pending Prescriptions Disp Refills albuterol HFA (VENTOLIN HFA) 90 mcg/actuation inhaler 1 Each 3 Sig: Inhale 2 Puffs as instructed every 4 hours as needed. Zolpidem (AMBIEN CR) 12.5 mg CR tablet 90 tablet 0 Sig: Take 1 tablet by mouth at bedtime as needed for sedation for up to 90 days. Date of last office visit in primary care: 03/24/2024 Date of next office visit in primary care: 09/22/2024 Please advise. Thank you. Nakia Merida. [facility] Telephone encounter Note * Telephone Encounter - Nakia Merida - 04/26/2024 9:04 AM EDT Patient has been identified by name and date of : Yes, Patient phones for refill(s): Requested Prescriptions Pending Prescriptions Disp Refills albuterol HFA (VENTOLIN HFA) 90 mcg/actuation inhaler 1 Each 3 Sig: Inhale 2 Puffs as instructed every 4 hours as needed. Zolpidem (AMBIEN CR) 12.5 mg CR tablet 90 tablet 0 Sig: Take 1 tablet by mouth at bedtime as needed for sedation for up to 90 days. Date of last office visit in primary care: 03/24/2024 Date of next office visit in primary care: 09/22/2024 Please advise. Thank you. Nakia Merida. [facility]10-[facility] NoteHNO ID: [id number] Author: LIDYA PENA, DO Service: ? Author Type: Physician Type: Progress Notes Filed: 04/25/2024 09:20 Note Text: [facility] [place] DEPARTMENT OF VASCULAR SURGERY OUTPATIENT VISIT DATE April 25, 2024 OUTPATIENT VISIT TYPE CONSULTATION SERVICE DATE: 04/25/2024 SERVICE TIME: 8:12 AM PRIMARY CARE PHYSICIAN: Scot Blank MD REFERRING PROVIDER: Jaylin Combs [facility] [id number] Consult requested for an opinion regarding the evaluation and treatment of the above. My final impression and recommendations will be communicated back to the requesting physician by way of the shared medical record or letter via US mail. 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 She describes cramping in her legs at night while lying down. She also admits to swelling at her ankles at night. Predisposing factors included history of varicose vein surgery iliac vein stenting in 2019 for leg swelling . States left leg swelling has increased over the past year and a half. She will wear compression intermittently Procedure: Iliocaval venography, IVUS interrogation of the bilateral iliac veins, stenting of the left common and external iliac veins, completion venography and IVUS interrogation; [employer] venous stent [id number] PAIN ASSESSMENT: PAIN EVALUATION No data found in the last 1 encounters. Obstetric History T3 L3 SAB0 IAB0 Ectopic0 Multiple0 Live Births0 Name of Baby 1: Not recorded Date: Not recorded GA: Not recorded Type: Not recorded Apgar1: Not recorded Apgar5: Not recorded Living: Not recorded Name of Baby 2: Not recorded Date: Not recorded GA: Not recorded Type: Not recorded Apgar1: Not recorded Apgar5: Not recorded Living: Not recorded Name of Baby 3: Not recorded Date: Not recorded GA: Not recorded Type: Not recorded Apgar1: Not recorded Apgar5: Not recorded Living: Not recorded PAST MEDICAL HISTORY Diagnosis Date Abnormal computed tomography angiography (CTA) 01/03/2019 right upper ICA with abnormality, consult to vascular 12/2018 Acute meniscal tear of left knee 04/13/2019 Advance directive discussed with patient 02/12/2022 Discussed 02/2022 Allergies Anxiety and depression 09/27/2020 Arthritis of left knee 02/19/2019 Bilateral carotid artery stenosis 01/03/2019 US: 12/2018 20-40% tatyana Chronic bilateral low back pain 01/01/2016 Seen [facility] Chronic pain of both ankles 09/27/2020 Chronic pain of left knee 09/27/2020 Chronic pain of right knee 09/30/2021 [facility]es [facility] Current use of proton pump inhibitor 08/25/2019 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 rojas Hiatal hernia 07/22/2016 Left hip pain 09/14/[address] [facility] [address] Xander Martinez Left lateral abdominal pain 02/15/2019 Mid quadrant, chronic and paroxysmal. 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 Linn Mixed hyperlipidemia 11/20/2009 Mixed incontinence 06/27/[address] Queen Obesity, Class I, BMI 30-34.9 06/15/2019 Palpitations 08/25/2019 Primary insomnia 07/22/2016 PUD (peptic ulcer disease) 03/13/2016 Hx of ulcer 2018 and two again in 10/2020. No NSAID's (aspirin held 10/2020) Second hand smoke exposure 11/08/2023 Senile osteoporosis 01/05/2006 Clinical Team Manager following (Dr. Dobson) Simple cyst of breast 11/2009 Left retroareolar Unspecified constipation PAST SURGICAL HISTORY Procedure Laterality Date APPENDECTOMY ARTHRS KNE SURG W/MENISCECTOMY MED/LAT W/SHVG Left 06/23/2019 Left knee medial and lateral menisectomies, medial and PF chondroplasties BREAST BIOPSY Left 2002 CARDIAC CATH 2004 COLONOSCOPY FLX DX W/COLLJ SPEC WHEN PFRMD 05/22/2019 Colonoscopy COLPOPEXY VAGINAL EXTRAPERITONEAL APPROACH 02/2013 repair of rectal and vaginal prolapse COLSC FLX W/RMVL OF TUMOR POLYP LESION SNARE TQ 01/28/2016 repeat 10 yrs EGD 10/16/2020 2 cratered gastric ulcers; Dr. Guillermo EGD TRANSORAL BIOPSY SINGLE/MULTIPLE 01/24/2007 EGD TRANSORAL BIOPSY SINGLE/MULTIPLE 01/28/2016 ESOPHAGEAL MOTILITY STUDY W/INTERPANDRPT 04/29/2016 ESOPHAGOGASTRODUODENOSCOPY TRANSORAL DIAGNOSTIC 05/22/2005 EGD H- (more content not included)...[facility]10-15-[facility] History of Present illness Narrative* Lidya Pena, DO - 04/25/2024 8:12 AM EDT Images from the original note were not included. [facility] [place] DEPARTMENT OF VASCULAR SURGERY OUTPATIENT VISIT DATE April 25, 2024 OUTPATIENT VISIT TYPE CONSULTATION SERVICE DATE: 04/25/2024 SERVICE TIME: 8:12 AM PRIMARY CARE PHYSICIAN: Scot Blank MD REFERRING PROVIDER: Jaylin Combs [address] [facility] [id number] Consult requested for an opinion regarding the evaluation and treatment of the above. My final impression and recommendations will be communicated back to the requesting physician by way of the shared medical record or letter via US mail. 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 She describes cramping in her legs at night while lying down. She also admits to swelling at her ankles at night. Predisposing factors included history of varicose vein surgery iliac vein stenting in 2019 for leg swelling . States left leg swelling has increased over the past year and a half. She will wear compression intermittently Procedure: Iliocaval venography, IVUS interrogation of the bilateral iliac veins, stenting of the left common and external iliac veins, completion venography and IVUS interrogation; [employer] venous stent [id number] PAIN ASSESSMENT: PAIN EVALUATION No data found in the last 1 encounters. Obstetric History T3 L3 SAB0 IAB0 Ectopic0 Multiple0 Live Births0 Name of Baby 1: Not recorded Date: Not recorded GA: Not recorded Type: Not recorded Apgar1: Not recorded Apgar5: Not recorded Living: Not recorded Name of Baby 2: Not recorded Date: Not recorded GA: Not recorded Type: Not recorded Apgar1: Not recorded Apgar5: Not recorded Living: Not recorded Name of Baby 3: Not recorded Date: Not recorded GA: Not recorded Type: Not recorded Apgar1: Not recorded Apgar5: Not recorded Living: Not recorded PAST MEDICAL HISTORY Diagnosis Date Abnormal computed tomography angiography (CTA) 01/03/2019 right upper ICA with abnormality, consult to vascular 12/2018 Acute meniscal tear of left knee 04/13/2019 Advance directive discussed with patient 02/12/2022 Discussed 02/2022 Allergies Anxiety and depression 09/27/2020 Arthritis of left knee 02/19/2019 Bilateral carotid artery stenosis 01/03/2019 US: 12/2018 20-40% tatyana Chronic bilateral low back pain 01/01/2016 Seen [facility] Chronic pain of both ankles 09/27/2020 Chronic pain of left knee 09/27/2020 Chronic pain of right knee 09/30/2021 [facility]es [facility] Current use of proton pump inhibitor 08/25/2019 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 rojas Hiatal hernia 07/22/2016 Left hip pain 09/14/[address] [facility] Xander Martinez Left lateral abdominal pain 02/15/2019 Mid quadrant, chronic and paroxysmal. 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 Linn Mixed hyperlipidemia 11/20/2009 Mixed incontinence 06/27/[address] Queen Obesity, Class I, BMI 30-34.9 06/15/2019 Palpitations 08/25/2019 Primary insomnia 07/22/2016 PUD (peptic ulcer disease) 03/13/2016 Hx of ulcer 2018 and two again in 10/2020. No NSAID's (aspirin held 10/2020) Second hand smoke exposure 11/08/2023 Senile osteoporosis 01/05/2006 Clinical Team Manager following (Dr. Dobson) Simple cyst of breast 11/2009 Left retroareolar Unspecified constipation PAST SURGICAL HISTORY Procedure Laterality Date APPENDECTOMY ARTHRS KNE SURG W/MENISCECTOMY MED/LAT W/SHVG Left 06/23/2019 Left knee medial and lateral menisectomies, medial and PF chondroplasties BREAST BIOPSY Left 2002 CARDIAC CATH 2004 COLONOSCOPY FLX DX W/COLLJ SPEC WHEN PFRMD 05/22/2019 Colonoscopy COLPOPEXY VAGINAL EXTRAPERITONEAL APPROACH 02/2013 repair of rectal and vaginal prolapse COLSC FLX W/RMVL OF TUMOR POLYP LESION SNARE TQ 01/28/2016 repeat 10 yrs EGD 10/16/2020 2 cratered gastric ulcers; Dr. Guillermo EGD TRANSORAL BIOPSY SINGLE/MULTIPLE 01/24/2007 EGD TRANSORAL BIOPSY SINGLE/MULTIPLE 01/28/2016 ESOPHAGEAL MOTILITY STUDY W/INTERP&RPT 04/29/2016 ESOPHAGOGASTRODUODENOSCOPY TRANSORAL DIAGNOSTIC 05/22/2005 EGD H-pylori negative ESOPHAGOGASTRODUODENOSCOPY TRANSORAL DIAGNOSTIC 03/02/2016 ESOPHAGOGASTRODUODENOSCOPY TRANSORAL DIAGNOSTIC 05/22/2019 EGD ESOPHAGOGASTRODUODENOSCOPY TRANSORAL DIAGNOSTIC 12/10/2020 healed ulcers; fundoplication intact; Dr. Guillermo GASTROESOPHAG REFLX TEST W/TELEMTRY PH ELTRD 03/02/2016 48 hour ph probe HERNIA REPAIR HX 1971 & 1973 herniorrhaphy, umbilical, right inguinal . PAST SURGICAL HISTORY OF 01/2005 heart catheterization PAST SURGICAL HISTORY OF 11/03/2004 left breast bx PAST SURGICAL HISTORY OF D & C, multiple PAST SURGICAL HISTORY OF Right 1990 carpal tunnel release PAST SURGICAL HISTORY OF Right arm surgery, ulnar nerve decompression X7 PAST SURGICAL HISTORY OF 05/2009 ganglion cyst removed right wrist PAST SURGICAL HISTORY OF 03/02/2016 pH probe PAST SURGICAL HISTORY OF Left 2002 carpal tunnel release PAST SURGICAL HISTORY OF 02/11/2017 laproscopic Walter Fundoplication.(Dr. Rojas [facility]) PAST SURGICAL HISTORY OF Right 12/2021 Tx of meniscus tear and Fx PAST SURGICAL HISTORY OF Left removal of foreign body in left foot. RECONSTRUCT VAGINAL WALL WITH MESH 04/2015 REMOVE CATARACT, INSERT LENS,EX 02/28/2009 Both Eyes REMV CATARACT EXTRACAP,INSERT LENS Bilateral RETROARC BLADDER SLING [id number] 09/03/2015 retroarc tension free vaginal sling TONSILLECTOMY HX 1956 TOTAL ABDOM HYSTERECTOMY 1989 VENOGRAM UNILATERAL 04/2020 groin SOCIAL HISTORY: Social History Tobacco Use Smoking status: Never Passive exposure: Never Smokeless tobacco: Never Tobacco comments: Father smoked occasionally in childhood home. Spouse smoked in home until 4 years ago. Vaping Use Vaping status: Never Used Substance Use Topics Alcohol use: No Drug use: No FAMILY HISTORY Problem Relation Age of Onset Heart Mother Diabetes Mother Cancer Father base of skull other (parkinsons) Father Thyroid Sister Breast Cancer Sister other (hepatitis) Sister @62yrs of age/Liver Problems Thyroid Daughter Thyroid Daughter Cervical Cancer Daughter No Ocular Disease No Family History MEDICATIONS: cholecalciferol, Vitamin D3, (VITAMIN D3) 1,250 mcg (50,000 unit) cap capsule Take 1 capsule by mouth one time a week. montelukast (SINGULAIR) 10 mg tablet Take 1 tablet by mouth daily at bedtime. Zolpidem (AMBIEN CR) 12.5 mg CR tablet Take 1 tablet by mouth at bedtime as needed for sedation forup to 90 days. montelukast (SINGULAIR) 10 mg tablet Take 1 tablet by mouth daily at bedtime. pantoprazole DR (PROTONIX) 20 mg tablet Take 1 tablet by mouth two times a day as needed. Benzonatate 200 mg capsule Take 1 capsule by mouth three times a day as needed. albuterol HFA (VENTOLIN HFA) 90 mcg/actuation inhaler Inhale 2 Puffs as instructed every 4 hours asneeded. nystatin (NYSTOP) powder Apply 1 application to affected area three times daily. to affected area as needed ALLERGIES: ALLERGIES Allergen Reactions Morphine GI Upset nausea Nsaids (Non-Steroid* Other: See Comments Hx of stomach ulcers Advair Diskus [Flut* Intolerance Hurts throat Bentyl [Dicyclomine* Unknown Celebrex [Celecoxib] GI Upset Dicyclomine Other: See Comments Dry mouth, blurred vision, loss of taste Estrace [Estradiol] Itching Evista [Raloxifene * Itching Macrobid [Nitrofura* Other: See Comments Hair loss Medrol [Methylpredn* Other: See Comments Dry mouth, sore throat. Mobic [Meloxicam] Intolerance Oxycontin [Oxycodon* Itching Penicillins Itching Prozac [Fluoxetine * Unknown Sulfamethizole GI Upset Symax-Sl [Hyoscyami* Unknown REVIEW of SYSTEMS: Constitutional: No weight loss, malaise or fevers. HEENT: Negative for frequent or significant headaches Respiratory: Negative for cough, wheezing, or shortness of breath Cardiovascular: Negative for chest pain or palpitations; admits to leg swelling Musculoskeletal: Positive for back pain, low back pain, joint swelling, joint pain, and muscle pain Endocrine: Negative for cold or heat intolerance, polyuria, polydipsia and goiter Hematology/Lymphatic: Negative for prolonged bleeding, bruising easily or swollen nodes Neurologic: No history or headaches, syncope, paralysis, seizures or tremors Integumentary: Negative for lesions, rash, and itching. PHYSICAL EXAM: VITALS: There were no vitals taken for this visit. General: Alert, oriented, cooperative, healthy appearance Integumentary: Normal color, no rash, no lesions. HEENT: EOM, pupils equal, round and reactive. Cardiovascular: Pulse regular. Lungs: No chest deformities or chest wall tenderness. Abdomen: Not examined Extremities: trace edema bilaterally, spider veins, cap refill 4 seconds Neurological: AAOx3. Normal cognition and motor skills. Vascular: Dorsalis Pedal Right: Normal - Left: Normal Diagnostic tests reviewed for today's visit: Most recent labs Most recent imaging IMPRESSION: Ms. Camarillo is a 74 year old female with history of iliac vein compression s/p stenting, carotid artery stenosis . Studies from Vascular Lab indicate DVT study- negative for DVT Visceral Vein- stent patent, decreased flow noted Carotid Duplex- no changed from 2021, bilateral ICA 20-39% PLAN and RECOMMENDATIONS: Recommend repeat carotid imaging in 2 years Continue current medications Will discuss with colleagues regarding possible venogram and IVUS to assess iliac vein stent SIGNATURE: Lidya Pena DO PATIENT NAME: Nora Camarillo DATE: April 25, 2024 TIME: 8:12 AM [facility] Telephone encounter Note * Telephone Encounter - Amalia Richards LPN - 04/14/2024 2:52 PM EDT Patient returned call and went over results, notes from Jaylin TAYLOR with understanding. [facility] Miscellaneous Notes* Telephone Encounter - Amalia Richards LPN - 04/14/2024 2:52 PM EDT Patient returned call and went over results, notes from Jaylin TAYLOR with understanding. * Telephone Encounter - Qasim Patterson LPN - 04/14/2024 10:58 AM EDT Left message for pt to contact office. Qasim Patterson LPN * Telephone Encounter - Jaylin Combs PA-C - 04/14/2024 10:04 AM EDT Let patient know that her carotid US is stable. Repeat 2 years. Thanks. Jaylin Combs PA-C documented in [facility]10-[facility] Telephone encounter Note * Telephone Encounter - Qasim Patterson LPN - 04/14/2024 10:58 AM EDT Left message for pt to contact office. Qasim Patterson LPN [facility] Telephone encounter Note* Telephone Encounter - Jaylin Combs PA-C - 04/14/2024 10:04 AM EDT Let patient know that her carotid US is stable. Repeat 2 years. Thanks. Jaylin Combs PA-C [facility]-13-[facility] Instructions* Patient Instructions* Jaylin Combs PA-C - 03/24/2024 10:26 AM EDT Take a Vitamin B complex (with atleast 30mg of B6) 3 times a day for nocturnal leg cramps. Consider RSV vaccine- at pharmacy Consider updating tetanus vaccine. Screening schedule The following prevention plan is recommended: DTaP,Tdap,Td Vaccine(1 - Tdap) Never done RSV Vaccine(1 - 1-dose 60+ series) Never done Mammogram Screening due on 07/16/2024 WHAT YOU CAN DO TO PREVENT FALLS Many falls can be prevented. By making some changes, you can lower your chances of falling. Four things YOU can do to prevent falls for you* and your caregiver 1. Begin a regular exercise program Exercise is one of the most important ways to lower your chances of falling. It makes you stronger and helps you feel better. Exercises that improve balance and coordination (like Rosendo Chi) are the most helpful. Lack of exercise leads to weakness and increases your chances of falling. Ask your doctor or health care provider about the best type of exercise program for you. 2. Have your health care provider review your medicines Have your doctor or pharmacist review all the medicines you take, even eadc-pbs-[id number] medicines. As you get older, the way medicines work in your body can change. Some medicines, or combinations of medicines, can make you sleepy or dizzy andcan cause you to fall. 3. Have your vision checked Have your eyes checked by an eye doctor at least once a year. You may be wearing the wrong glasses or have a condition like glaucoma or cataracts that limits your vision. Poor vision can increase your chances of falling. 4. Make your home safer About half of all falls happen at home. To make your home safer: Remove things you can trip over (like papers, books, clothes, and shoes) from stairs and places where you walk. Remove small throw rugs or use double-sided tape to keep the rugs from slipping. Keep items you use often in cabinets you can reach easily without using a step stool. Have grab bars put in next to your toilet and in the tub or shower. Use non-slip mats in the bathtub and on shower floors. Improve the lighting in your home. As you get older, you need brighter lights to see well. Hang light-weight curtains or shades to reduce glare. Have handrails and lights put in on all staircases. Wear shoes both inside and outside the house. Avoid going barefoot or wearing slippers. For more information, contact: Centers for Disease Control and Prevention www.cdc.gov/injury * This information may not apply if you have certain medical conditions. documented in this encounterWood [facility]09-[facility]24 NoteHNO ID: [id number] Author: JAYLIN COMBS PA-C Service: ? Author Type: Physician Professional Application Designer Type: Progress Notes Filed: 03/24/2024 11:47 Note Text: Nora Camarillo is a 73 year old female here for a Medicare wellness visit. Medicare Health Risk Assessment General Health Good Exercise: Minutes/Day ADL- tries to walk at stores Exercise: Days/Week - Alcohol: Daily Use no Alcohol: Drinks/Day - Alcohol: 6 or more drinks no Feel off balance yes Concerns: Teeth/Dentures no Concerns: Sexual function Troubled by feelings Yes at times Frequency: Eating healthy diet yes ADLs requiring help no Safety precautions in home/vehicle Yes. No grab bars yet Smoke, vape, chews tobacco no Difficulty hearing no Difficulty seeing no Current Providers Specialists: I have reviewed specialist-related care of the patient in the medical record. Medical/Family history review Reviewed and updated problem list, medical/surgical/family/social history, medications, and allergies. Opioid use review Opioid Medications (last 90 days) No data to display Anxiety/Depression screening PHQ-2 Score: 1 (Lower risk for depression) Recommendation: continuing current treatment plan Cognitive screening Mini Cog Score: 5 Cognitive screening reviewed and No further action needed (score 3-5). Functional Observation Was the patient's Timed Up AND Go test unsteady or ? 12 seconds? No Advance Care Planning Surrogate decision maker and/or advance care plan documented Measurements BP 136/70 (BP Site: Right Arm, BP Position: Sitting, BP Cuff Size: Large Adult) Pulse 74 Temp 36.3 ?C (97.4 ?F) Resp 18 Ht 161.5 cm (5' 3.58) Wt 85.7 kg (189 lb) SpO2 95% BMI 32.87 kg/m? Vision Screening: Follows with optometry/ophthalmology Assessment/Plan Medicare annual wellness visit, subsequent (Z00.00) - Counseled on healthy diet and regular exercise - Fall avoidance information provided - Personalized prevention plan provided See below. Chief Complaint Patient presents with: Medicare Wellness Exam HPI Nora Camarillo is a 73 year old female who presents here today for extensive exam. Patient with hx of hyperlipidemia, asthma, insomnia, tremor, PUD, arthritis, vit d def, may thurner dz and those as below. Patient has had foot pain depending on what way she turns her ankle. Gets leg cramps at night. Past medical history, appointments, medications, allergies reviewed. Previous Medical History PAST MEDICAL HISTORY Diagnosis Date Abnormal computed tomography angiography (CTA) 01/03/2019 right upper ICA with abnormality, consult to vascular 12/2018 Acute meniscal tear of left knee 04/13/2019 Advance directive discussed with patient 02/12/2022 Discussed 02/2022 Allergies Anxiety and depression 09/27/2020 Arthritis of left knee 02/19/2019 Bilateral carotid artery stenosis 01/03/2019 US: 12/2018 20-40% tatyana Chronic bilateral low back pain 01/01/2016 Seen [facility] Chronic pain of both ankles 09/27/2020 Chronic pain of left knee 09/27/2020 Chronic pain of right knee 09/30/2021 [facility]es [facility] Current use of proton pump inhibitor 08/25/2019 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 rojas Hiatal hernia 07/22/2016 Left hip pain 09/14/[address] [facility] [facility] [address] Xander Martinez Left lateral abdominal pain 02/15/2019 Mid quadrant, chronic and paroxysmal. 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 Linn Mixed hyperlipidemia 11/20/2009 Mixed incontinence 06/27/[address] Queen Obesity, Class I, BMI 30-34.9 06/15/2019 Palpitations 08/25/2019 Primary insomnia 07/22/2016 PUD (peptic ulcer disease) 03/13/2016 Hx of ulcer 2018 and two again in 10/2020. No NSAID's (aspirin held 10/2020) Second hand smoke exposure 11/08/2023 Senile osteoporosis 01/05/2006 Clinical Team Manager following (Dr. Dobson) Simple cyst of breast 11/2009 Left retroareolar Unspecified constipation Previous Surgical History PAST SURGICAL HISTORY Procedure Laterality Date APPENDECTOMY ARTHRS KNE SURG W/MENISCECTOMY MED/LAT W/SHVG Left 06/23/2019 Left knee medial and lateral menisectomies, medial and PF chondroplasties BREAST BIOPSY Left 2002 CARDIAC CATH 2004 COLONOSCOPY FLX DX W/COLLJ SPEC WHEN PFRMD 05/22/2019 Colonoscopy COLPOPEXY VAGINAL EXTRAPERITONEAL APPROACH 02/2013 repair of rectal and vaginal prolapse COLSC FLX W/RMV (more content not included)...[facility] 03-24-2024 History of Present illness Narrative* Jaylin Combs PA-C - 03/24/2024 10:14 AM EDT Nora Camarillo is a 73 year old female here for a Medicare wellness visit. Medicare Health Risk Assessment General Health Good Exercise: Minutes/Day ADL- tries to walk at stores Exercise: Days/Week - Alcohol: Daily Use no Alcohol: Drinks/Day - Alcohol: 6 or more drinks no Feel off balance yes Concerns: Teeth/Dentures no Concerns: Sexual function Troubled by feelings Yes at times Frequency: Eating healthy diet yes ADLs requiring help no Safety precautions in home/vehicle Yes. No grab bars yet Smoke, vape, chews tobacco no Difficulty hearing no Difficulty seeing no Current Providers Specialists: I have reviewed specialist-related care of the patient in the medical record. Medical/Family history review Reviewed and updated problem list, medical/surgical/family/social history, medications, and allergies. Opioid use review Opioid Medications (last 90 days) No data to display Anxiety/Depression screening PHQ-2 Score: 1 (Lower risk for depression) Recommendation: continuing current treatment plan Cognitive screening Mini Cog Score: 5 Cognitive screening reviewed and No further action needed (score 3-5). Functional Observation Was the patient's Timed Up & Go test unsteady or ? 12 seconds? No Advance Care Planning Surrogate decision maker and/or advance care plan documented Measurements BP 136/70 (BP Site: Right Arm, BP Position: Sitting, BP Cuff Size: Large Adult) Pulse 74 Temp 36.3 C (97.4 F) Resp 18 Ht 161.5 cm (5' 3.58) Wt 85.7 kg (189 lb) SpO2 95% BMI 32.87 kg/m Vision Screening: Follows with optometry/ophthalmology Assessment/Plan Medicare annual wellness visit, subsequent (Z00.00) - Counseled on healthy diet and regular exercise - Fall avoidance information provided - Personalized prevention plan provided See below. Chief Complaint Patient presents with: Medicare Wellness Exam HPI Nora Camarillo is a 73 year old female who presents here today for extensive exam. Patient with hx of hyperlipidemia, asthma, insomnia, tremor, PUD, arthritis, vit d def, may thurnerdz and those as below. Patient has had foot pain depending on what way she turns her ankle. Gets leg cramps at night. Past medical history, appointments, medications, allergies reviewed. Previous Medical History PAST MEDICAL HISTORY Diagnosis Date Abnormal computed tomography angiography (CTA) 01/03/2019 right upper ICA with abnormality, consult to vascular 12/2018 Acute meniscal tear of left knee 04/13/2019 Advance directive discussed with patient 02/12/2022 Discussed 02/2022 Allergies Anxiety and depression 09/27/2020 Arthritis of left knee 02/19/2019 Bilateral carotid artery stenosis 01/03/2019 US: 12/2018 20-40% tatyana Chronic bilateral low back pain 01/01/2016 Seen [facility] Chronic pain of both ankles 09/27/2020 Chronic pain of left knee 09/27/2020 Chronic pain of right knee 09/30/2021 Sees [facility] Current use of proton pump inhibitor 08/25/2019 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 rojas Hiatal hernia 07/22/2016 Left hip pain 09/14/[address] [place] [facility] Xander Martinez Left lateral abdominal pain 02/15/2019 Mid quadrant, chronic and paroxysmal. 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 Linn Mixed hyperlipidemia 11/20/2009 Mixed incontinence 06/27/[address] Queen Obesity, Class I, BMI 30-34.9 06/15/2019 Palpitations 08/25/2019 Primary insomnia 07/22/2016 PUD (peptic ulcer disease) 03/13/2016 Hx of ulcer 2018 and two again in 10/2020. No NSAID's (aspirin held 10/2020) Second hand smoke exposure 11/08/2023 Senile osteoporosis 01/05/2006 Clinical Team Manager following (Dr. Dobson) Simple cyst of breast 11/2009 Left retroareolar Unspecified constipation Previous Surgical History PAST SURGICAL HISTORY Procedure Laterality Date APPENDECTOMY ARTHRS KNE SURG W/MENISCECTOMY MED/LAT W/SHVG Left 06/23/2019 Left knee medial and lateral menisectomies, medial and PF chondroplasties BREAST BIOPSY Left 2002 CARDIAC CATH 2003 COLONOSCOPY FLX DX W/COLLJ SPEC WHEN PFRMD 05/22/2019 Colonoscopy COLPOPEXY VAGINAL EXTRAPERITONEAL APPROACH 02/2013 repair of rectal and vaginal prolapse COLSC FLX W/RMVL OF TUMOR POLYP LESION SNARE TQ 01/28/2016 repeat 10 yrs EGD 10/16/2020 2 cratered gastric ulcers; Dr. Guillermo EGD TRANSORAL BIOPSY SINGLE/MULTIPLE 01/24/2007 EGD TRANSORAL BIOPSY SINGLE/MULTIPLE 01/28/2016 ESOPHAGEAL MOTILITY STUDY W/INTERP&RPT 04/29/2016 ESOPHAGOGASTRODUODENOSCOPY TRANSORAL DIAGNOSTIC 05/22/2005 EGD H-pylori negative ESOPHAGOGASTRODUODENOSCOPY TRANSORAL DIAGNOSTIC 03/02/2016 ESOPHAGOGASTRODUODENOSCOPY TRANSORAL DIAGNOSTIC 05/22/2019 EGD ESOPHAGOGASTRODUODENOSCOPY TRANSORAL DIAGNOSTIC 12/10/2020 healed ulcers; fundoplication intact; Dr. Guillermo GASTROESOPHAG REFLX TEST W/TELEMTRY PH ELTRD 03/02/2016 48 hour ph probe HERNIA REPAIR HX 1970 & 1972 herniorrhaphy, umbilical, right inguinal . PAST SURGICAL HISTORY OF 01/2005 heart catheterization PAST SURGICAL HISTORY OF 11/03/2004 left breast bx PAST SURGICAL HISTORY OF D & C, multiple PAST SURGICAL HISTORY OF Right 1990 carpal tunnel release PAST SURGICAL HISTORY OF Right arm surgery, ulnar nerve decompression X7 PAST SURGICAL HISTORY OF 05/2009 ganglion cyst removed right wrist PAST SURGICAL HISTORY OF 03/02/2016 pH probe PAST SURGICAL HISTORY OF Left 2002 carpal tunnel release PAST SURGICAL HISTORY OF 02/11/2017 laproscopic Walter Fundoplication.(Dr. Rojas [facility]) PAST SURGICAL HISTORY OF Right 12/2021 Tx of meniscus tear and Fx PAST SURGICAL HISTORY OF Left removal of foreign body in left foot. RECONSTRUCT VAGINAL WALL WITH MESH 04/2015 REMOVE CATARACT, INSERT LENS,EX 02/28/2009 Both Eyes REMV CATARACT EXTRACAP,INSERT LENS Bilateral RETROARC BLADDER SLING [id number] 09/03/2015 retroarc tension free vaginal sling TONSILLECTOMY HX 1955 TOTAL ABDOM HYSTERECTOMY 1988 VENOGRAM UNILATERAL 04/2020 groin Family History FAMILY HISTORY Problem Relation Age of Onset Heart Mother Diabetes Mother Cancer Father base of skull other (parkinsons) Father Thyroid Sister Breast Cancer Sister other (hepatitis) Sister @62yrs of age/Liver Problems Thyroid Daughter Thyroid Daughter Cervical Cancer Daughter No Ocular Disease No Family History Patient Allergies ALLERGIES Allergen Reactions Morphine GI Upset nausea Nsaids (Non-Steroid* Other: See Comments Hx of stomach ulcers Advair Diskus [Flut* Intolerance Hurts throat Bentyl [Dicyclomine* Unknown Celebrex [Celecoxib] GI Upset Dicyclomine Other: See Comments Dry mouth, blurred vision, loss of taste Estrace [Estradiol] Itching Evista [Raloxifene * Itching Macrobid [Nitrofura* Other: See Comments Hair loss Medrol [Methylpredn* Other: See Comments Dry mouth, sore throat. Mobic [Meloxicam] Intolerance Oxycontin [Oxycodon* Itching Penicillins Itching Prozac [Fluoxetine * Unknown Sulfamethizole GI Upset Symax-Sl [Hyoscyami* Unknown Current Medications Current Outpatient Medications on File Prior to Visit Medication Sig montelukast (SINGULAIR) 10 mg tablet Take 1 tablet by mouth daily at bedtime. Zolpidem (AMBIEN CR) 12.5 mg CR tablet Take 1 tablet by mouth at bedtime as needed for sedation forup to [address] (PROTONIX) 20 mg tablet Take 1 tablet by mouth two times a day as needed. Benzonatate 200 mg capsule Take 1 capsule by mouth three times a day as needed. albuterol HFA (VENTOLIN HFA) 90 mcg/actuation inhaler Inhale 2 Puffs as instructed every 4 hours asneeded. nystatin (NYSTOP) powder Apply 1 application to affected area three times daily. to affected area as needed predniSONE (DELTASONE) 10 mg tablet Take 4 daily for three days, then 3 daily for three days, then 2 daily for three days, then one daily for three days. (Patient not taking: Reported on 03/24/2024) montelukast (SINGULAIR) 10 mg tablet Take 1 tablet by mouth daily at bedtime. cetirizine (ZYRTEC) 10 mg tablet Take 1 tablet by mouth once daily. (Patient not taking: Reported on 02/15/2024) dextromethorphan-guaiFENesin (MUCINEX DM) 30-600 mg per tablet Take 1 tablet by mouth two times a day. (Patient not taking: Reported on 10/04/2023) VITAFUSION WOMEN GUMMY as directed. (Patient not taking: Reported on 02/15/2024) budesonide (PULMICORT) 0.25 mg/2 mL nebulizer solution USE 2 ML VIA NEBULIZER TWICE DAILY. DX: MILDPERSISTENT ASTHMA J45.21 (Patient not taking: Reported on 03/24/2024) No current facility-administered medications on file prior to visit. Social History Social History Tobacco Use Smoking status: Never Passive exposure: Never Smokeless tobacco: Never Tobacco comments: Father smoked occasionally in childhood home. Spouse smoked in home until 4 years ago. Vaping Use Vaping status: Never Used Substance Use Topics Alcohol use: No Drug use: No Review of Symptoms REVIEW OF SYSTEMS GENERAL: No weight loss, malaise or fevers HEENT: No changes in hearing or vision, no nose bleeds or other nasal problems NECK: Negative for lumps, goiter, pain and significant neck swelling RESPIRATORY: Negative for cough, hemoptysis, wheezing, COPD, dyspnea or shortness of breath CARDIOVASCULAR: Negative for chest pain, leg swelling, CHF or palpitations GI: Negative for abdominal discomfort, blood in stools or black stools, change in bowel habit, heart burn, nausea, vomiting : No history of dysuria, frequency or incontinence SKIN: Negative for lesions, rash, and itching PSYCH: Negative for sleep disturbance, mood disorder and recent psychosocial stressors HEMATOLOGY/LYMPHOLOGY: Negative for prolonged bleeding, bruising easily or swollen nodes ENDOCRINE: Negative for cold or heat intolerance, polyuria, polydipsia and goiter NEURO: No history of headaches, syncope, paralysis, seizures or tremors EXAM: BP 136/70 (BP Site: Right Arm, BP Position: Sitting, BP Cuff Size: Large Adult) Pulse 74 Temp 36.3 C (97.4 F) Resp 18 Ht 161.5 cm (5' 3.58) Wt 85.7 kg (189 lb) SpO2 95% BMI 32.87 kg/m General Appearance: Well appearing, alert, in no acute distress, well-hydrated, well nourished.. Skin: Skin color, texture, turgor normal, no suspicious rashes or lesions. Head: Normocephalic, no masses, lesions, tenderness or abnormalities. Eyes: Anicteric sclera. Pupils are equally round and reactive to light. Extraocular movements are intact. . Ears: External ears normal, canals clear, TMs pearly cooley. Nose/Sinuses: Nares normal, septum midline, mucosa normal, no drainage or sinus tenderness. Oropharynx: Lips, mucosa, and tongue normal, teeth and gums normal, oropharynx normal. Neck: Supple, no adenopathy; thyroid symmetric, normal size, no bruits. Lungs: Lungs clear to auscultation. No wheezing, rhonchi, rales.. Heart: RRR without murmur, gallop, or rubs. No ectopy. Abdomen: Normal abdominal exam, Abdomen soft, non-tender. Bowel sounds normal. No masses, organomegaly. Extremities: No deformities, edema, skin discoloration, clubbing or cyanosis. Good capillary refill. . Peripheral Pulses: Normal. Neurologic: Gait normal. Reflexes normal and symmetric. Sensation grossly intact.. Health Maintenance List DTaP,Tdap,Td Vaccine(1 - Tdap) Never done RSV Vaccine(1 - 1-dose 60+ series) Never done Advance Directive Discussion due on 07/12/2023 Covid-19 Vaccine(2022- season) due on 03/12/2024 Mammogram Screening due on 07/16/2024 Bone Density Screening due on 03/17/2025 Annual PCP Team Chronic Disease Visit due on 03/24/2025 Diabetes Screening due on 02/14/2027 Lipid Screening due on 02/14/2029 Colorectal Cancer Screening due on 05/22/2029 Spirometry Completed Hepatitis C Screening Completed Shingrix Vaccine Completed Pneumococcal Vaccine: 65+ Completed Influenza Vaccine Discontinued Data reviewed Latest Ref Rng 02/15/2024 Protein, Total 6.3 - 8.0 g/dL 7.4 Albumin 3.9 - 4.9 g/dL 4.4 Calcium 8.5 - 10.2 mg/dL 9.3 Bilirubin, Total 0.2 - 1.3 mg/dL 0.6 Alkaline Phosphatase 34 - 123 U/L 97 AST 13 - 35 U/L 19 ALT 7 - 38 U/L 21 Glucose 74 - 99 mg/dL 114 (H) BUN 7 - 21 mg/dL 17 Creatinine 0.58 - 0.96 mg/dL 0.85 Sodium 136 - 144 mmol/L 137 Potassium 3.7 - 5.1 mmol/L 4.4 Chloride 98 - 107 mmol/L 103 CO2 22 - 30 mmol/L 24 Anion Gap 8 - 15 mmol/L 10 eGFR >=60 mL/min/1.73m 72 Total Cholesterol, Nonfasting <200 mg/dL 199 Triglycerides, Nonfasting <150 mg/dL 100 HDL Cholesterol, Nonfasting >39 mg/dL 61 LDL Cholesterol, Nonfasting <100 mg/dL 118 (H) Non HDL Cholesterol, Nonfasting <130 mg/dL 138 (H) VLDL Cholesterol, Nonfasting <30 mg/dL 20 Total Chol/HDL Ratio, Nonfasting <5.10 mg/dL 3.26 LDL/HDL Ratio, Nonfasting <2.54 mg/dL 1.93 Hemoglobin A1C 4.3 - 5.6 % 5.2 Estimated Average Glucose mg/dL 103 Vitamin D 25 Hydroxy 31.0 - 80.0 ng/mL 21.1 (L) ASSESSMENT/PLAN: 1. Medicare annual wellness visit, subsequent - ICD9: V70.0, ICD10: Z00.00 (primary diagnosis) - Counseled on healthy diet and regular exercise 2. Advance directive discussed with patient - ICD9: V65.49, ICD10: Z71.89 In chart 3. May-Thurner syndrome - ICD9: 459.2, ICD10: I87.1 Set back up with vascular to see if any monitoring is needed. - CONSULT TO VASCULAR MEDICINE 4. Essential tremor - ICD9: 333.1, ICD10: G25.0 stable 5. Primary insomnia - ICD9: 307.42, ICD10: F51.01 No new issues 6. Mixed hyperlipidemia - ICD9: 272.2, ICD10: E78.2 - Controlled - Continue current medications - Counseled on healthy diet and regular exercise - LIPID PANEL, NONFASTING 7. Mild persistent asthma without complication - ICD9: 493.90, ICD10: J45.30 - stable. Continue with pulm 8. Gastroesophageal reflux disease with esophagitis without hemorrhage - ICD9: 530.81, 530.10, ICD10: K21.00 stable - BASIC METABOLIC PANEL 9. PUD (peptic ulcer disease) - ICD9: 533.90, ICD10: K27.9 stable 10. Elevated fasting blood sugar - ICD9: 790.21, ICD10: R73.01 - HEMOGLOBIN A1C 11. Age-related osteoporosis without current pathological fracture - ICD9: 733.01, ICD10: M81.0 Patient declines treatment 12. Vitamin D deficiency - ICD9: 268.9, ICD10: E55.9 - VITAMIN D 25 HYDROXY - BASIC METABOLIC PANEL 13. Bilateral carotid artery stenosis - ICD9: 433.10, 433.30, ICD10: I65.23 - US CAROTID ARTERIES [facility] 14. Obesity, Class I, BMI 30-34.9 - ICD9: 278.00, ICD10: E66.9 stable 15. Medication management - ICD9: V58.69, ICD10: Z79.899 - MAGNESIUM - VITAMIN B12 Follow up 6 months. Jaylin Combs PA-C [facility] NoteHNO ID: [id number] Author: GARTH GONZALEZ PA-C Service: ? Author Type: Physician Professional Application Designer Type: Progress Notes Filed: 03/03/2024 11:26 Note Text: HISTORY OF PRESENT ILLNESS: Nora is a 73 year old female. She is here for evaluation of Right knee pain. She reports right knee surgery for medial meniscal tear and subchondroplasty done in [place] in 2021. She states that the knee has been painful ever since and has not gotten any better. Currently takes aleve for pain control which does seem to help, but she has had gastric surgery with likely Walter fundoplication so she need to watch her NSAID use. Reports a sharp, aching sensation that occasionally radiates to the lambert. Unable to quantify the pain today. MEDICATIONS Current Outpatient Medications on File Prior to Visit Medication Sig montelukast (SINGULAIR) 10 mg tablet Take 1 tablet by mouth daily at bedtime. predniSONE (DELTASONE) 10 mg tablet Take 4 daily for three days, then 3 daily for three days, then 2 daily for three days, then one daily for three days. Zolpidem (AMBIEN CR) 12.5 mg CR tablet Take 1 tablet by mouth at bedtime as needed for sedation for up to 90 days. montelukast (SINGULAIR) 10 mg tablet Take 1 tablet by mouth daily at bedtime. pantoprazole DR (PROTONIX) 20 mg tablet Take 1 tablet by mouth two times a day as needed. Benzonatate 200 mg capsule Take 1 capsule by mouth three times a day as needed. cetirizine (ZYRTEC) 10 mg tablet Take 1 tablet by mouth once daily. (Patient not taking: Reported on 02/15/2024) dextromethorphan-guaiFENesin (MUCINEX DM) 30-600 mg per tablet Take 1 tablet by mouth two times a day. (Patient not taking: Reported on 10/04/2023) VITAFUSION WOMEN GUMMY as directed. (Patient not taking: Reported on 02/15/2024) albuterol HFA (VENTOLIN HFA) 90 mcg/actuation inhaler Inhale 2 Puffs as instructed every 4 hours as needed. nystatin (NYSTOP) powder Apply 1 application to affected area three times daily. to affected area as needed budesonide (PULMICORT) 0.25 mg/2 mL nebulizer solution USE 2 ML VIA NEBULIZER TWICE DAILY. DX: MILD PERSISTENT ASTHMA J45.21 No current facility-administered medications on file prior to visit. ALLERGIES ALLERGIES Allergen Reactions Morphine GI Upset nausea Nsaids (Non-Steroid* Other: See Comments Hx of stomach ulcers Advair Diskus [Flut* Intolerance Hurts throat Bentyl [Dicyclomine* Unknown Celebrex [Celecoxib] GI Upset Dicyclomine Other: See Comments Dry mouth, blurred vision, loss of taste Estrace [Estradiol] Itching Evista [Raloxifene * Itching Macrobid [Nitrofura* Other: See Comments Hair loss Medrol [Methylpredn* Other: See Comments Dry mouth, sore throat. Mobic [Meloxicam] Intolerance Oxycontin [Oxycodon* Itching Penicillins Itching Prozac [Fluoxetine * Unknown Sulfamethizole GI Upset Symax-Sl [Hyoscyami* Unknown PAST MEDICAL HISTORY PAST MEDICAL HISTORY 01/03/2019: Abnormal computed tomography angiography (CTA) Comment: right upper ICA with abnormality, consult to vascular 12/201804/13/2019: Acute meniscal tear of left knee 02/12/2022: Advance directive discussed with patient Comment: Discussed 02/2022 No date: Allergies 09/27/2020: Anxiety and depression 02/19/2019: Arthritis of left knee 01/03/2019: Bilateral carotid artery stenosis Comment: US: 12/2018 20-40% tatyana 01/01/2016: Chronic bilateral low back pain Comment: Seen [facility] 09/27/2020: Chronic pain of both ankles 09/27/2020: Chronic pain of left knee 09/30/2021: Chronic pain of right knee Comment: [facility]es [facility] 08/25/2019: Current use of proton pump inhibitor 06/20/2019: 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 Comment: S/p surgery 06/201909/18/2011: Delayed gastric emptying No date: Diverticulosis of large intestine 12/10/2015: Elevated fasting blood sugar 01/19/2018: Essential tremor 09/27/2020: Family history of thyroid disease 03/13/2016: Gastric diverticulum 03/13/2016: Gastroesophageal reflux disease with esophagitis Comment: S/P Walter 02/[address] rojas 07/22/2016: Hiatal hernia 09/14/2017: Left hip pain Comment: Seeing [place] [facility] Martinez 02/15/2019: Left lateral abdominal pain Comment: Mid quadrant, chronic and paroxysmal. 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 Linn 11/20/2009: Mixed hyperlipidemia 06/27/2021: Mixed incontinence Comment: Seeing Dr. Queen 06/15/2019: Obesity, Class I, BMI 30-34.9 08/25/2019: Palpitations 07/22/2016: Primary insomnia 03/13/2016: PUD (peptic ulcer disease) Comment: Hx of ulcer 2018 and two again in 10/2020. No NSAID's (aspirin held 10/2020) 11/08/2023: Second hand smoke exposure (more content not included)...[facility] History of Present illness Narrative* Garth Gonzalez PA-C - 03/03/2024 10:41 AM EDTAssociated Order(s): Large Joint Arthro/Inj: R knee joint Post-Procedure Diagnose(s): Primary osteoarthritis of right knee HISTORY OF PRESENT ILLNESS: Nora is a 73 year old female. She is here for evaluation of Right knee pain. She reports right knee surgery for medial meniscal tear and subchondroplasty done in [place] in 2021. She states that theknee has been painful ever since and has not gotten any better. Currently takes aleve for pain control which does seem to help, but she has had gastric surgery with likely Walter fundoplication so she need to watch her NSAID use. Reports a sharp, aching sensation that occasionally radiates to the lambert. Unable to quantify the pain today. MEDICATIONS Current Outpatient Medications on File Prior to Visit Medication Sig montelukast (SINGULAIR) 10 mg tablet Take 1 tablet by mouth daily at bedtime. predniSONE (DELTASONE) 10 mg tablet Take 4 daily for three days, then 3 daily for three days, then 2 daily for three days, then one daily for three days. Zolpidem (AMBIEN CR) 12.5 mg CR tablet Take 1 tablet by mouth at bedtime as needed for sedation forup to 90 days. montelukast (SINGULAIR) 10 mg tablet Take 1 tablet by mouth daily at bedtime. pantoprazole DR (PROTONIX) 20 mg tablet Take 1 tablet by mouth two times a day as needed. Benzonatate 200 mg capsule Take 1 capsule by mouth three times a day as needed. cetirizine (ZYRTEC) 10 mg tablet Take 1 tablet by mouth once daily. (Patient not taking: Reported on 02/15/2024) dextromethorphan-guaiFENesin (MUCINEX DM) 30-600 mg per tablet Take 1 tablet by mouth two times a day. (Patient not taking: Reported on 10/04/2023) VITAFUSION WOMEN GUMMY as directed. (Patient not taking: Reported on 02/15/2024) albuterol HFA (VENTOLIN HFA) 90 mcg/actuation inhaler Inhale 2 Puffs as instructed every 4 hours asneeded. nystatin (NYSTOP) powder Apply 1 application to affected area three times daily. to affected area as needed budesonide (PULMICORT) 0.25 mg/2 mL nebulizer solution USE 2 ML VIA NEBULIZER TWICE DAILY. DX: MILDPERSISTENT ASTHMA J45.21 No current facility-administered medications on file prior to visit. ALLERGIES ALLERGIES Allergen Reactions Morphine GI Upset nausea Nsaids (Non-Steroid* Other: See Comments Hx of stomach ulcers Advair Diskus [Flut* Intolerance Hurts throat Bentyl [Dicyclomine* Unknown Celebrex [Celecoxib] GI Upset Dicyclomine Other: See Comments Dry mouth, blurred vision, loss of taste Estrace [Estradiol] Itching Evista [Raloxifene * Itching Macrobid [Nitrofura* Other: See Comments Hair loss Medrol [Methylpredn* Other: See Comments Dry mouth, sore throat. Mobic [Meloxicam] Intolerance Oxycontin [Oxycodon* Itching Penicillins Itching Prozac [Fluoxetine * Unknown Sulfamethizole GI Upset Symax-Sl [Hyoscyami* Unknown PAST MEDICAL HISTORY PAST MEDICAL HISTORY 01/03/2019: Abnormal computed tomography angiography (CTA) Comment: right upper ICA with abnormality, consult to vascular 12/201804/13/2019: Acute meniscal tear of left knee 02/12/2022: Advance directive discussed with patient Comment: Discussed 02/2022 No date: Allergies 09/27/2020: Anxiety and depression 02/19/2019: Arthritis of left knee 01/03/2019: Bilateral carotid artery stenosis Comment: US: 12/2018 20-40% tatyana 01/01/2016: Chronic bilateral low back pain Comment: Seen [facility] 09/27/2020: Chronic pain of both ankles 09/27/2020: Chronic pain of left knee 09/30/2021: Chronic pain of right knee Comment: Sees [facility] 08/25/2019: Current use of proton pump inhibitor 06/20/2019: 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 Comment: S/p surgery 06/201909/18/2011: Delayed gastric emptying No date: Diverticulosis of large intestine 12/10/2015: Elevated fasting blood sugar 01/19/2018: Essential tremor 09/27/2020: Family history of thyroid disease 03/13/2016: Gastric diverticulum 03/13/2016: Gastroesophageal reflux disease with esophagitis Comment: S/P Watler 02/[address] rojas 07/22/2016: Hiatal hernia 09/14/2017: Left hip pain Comment: Seeing [facility] Dr. Xander Martinez 02/15/2019: Left lateral abdominal pain Comment: Mid quadrant, chronic and paroxysmal. 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 Linn 11/20/2009: Mixed hyperlipidemia 06/27/2021: Mixed incontinence Comment: Seeing Dr. Queen 06/15/2019: Obesity, Class I, BMI 30-34.9 08/25/2019: Palpitations 07/22/2016: Primary insomnia 03/13/2016: PUD (peptic ulcer disease) Comment: Hx of ulcer 2018 and two again in 10/2020. No NSAID's (aspirin held 10/2020) 11/08/2023: Second hand smoke exposure 01/05/2006: Senile osteoporosis Comment: Clinical Team Manager following (Dr. Dobson) 11/2009: Simple cyst of breast Comment: Left retroareolar No date: Unspecified constipation PAST SURGICAL HISTORY PAST SURGICAL HISTORY No date: APPENDECTOMY 06/23/2019: ARTHRS KNE SURG W/MENISCECTOMY MED/LAT W/SHVG; Left Comment: Left knee medial and lateral menisectomies, medial and PF chondroplasties 2003: BREAST BIOPSY; Left 2004: CARDIAC CATH 05/22/2019: COLONOSCOPY FLX DX W/COLLJ SPEC WHEN PFRMD Comment: Colonoscopy 02/2013: COLPOPEXY VAGINAL EXTRAPERITONEAL APPROACH Comment: repair of rectal and vaginal prolapse 01/28/2016: COLSC FLX W/RMVL OF TUMOR POLYP LESION SNARE TQ Comment: repeat 10 yrs 10/16/2020: EGD Comment: 2 cratered gastric ulcers; Dr. Guillermo 01/24/2007: EGD TRANSORAL BIOPSY SINGLE/MULTIPLE 01/28/2016: EGD TRANSORAL BIOPSY SINGLE/MULTIPLE 04/29/2016: ESOPHAGEAL MOTILITY STUDY W/INTERP&RPT 05/22/2005: ESOPHAGOGASTRODUODENOSCOPY TRANSORAL DIAGNOSTIC Comment: EGD H-pylori negative 03/02/2016: ESOPHAGOGASTRODUODENOSCOPY TRANSORAL DIAGNOSTIC 05/22/2019: ESOPHAGOGASTRODUODENOSCOPY TRANSORAL DIAGNOSTIC Comment: EGD 12/10/2020: ESOPHAGOGASTRODUODENOSCOPY TRANSORAL DIAGNOSTIC Comment: healed ulcers; fundoplication intact; Dr. Guillermo 03/02/2016: GASTROESOPHAG REFLX TEST W/TELEMTRY PH ELTRD Comment: 48 hour ph probe 1970 & 1972: HERNIA REPAIR HX Comment: herniorrhaphy, umbilical, right inguinal . 01/2005: PAST SURGICAL HISTORY OF Comment: heart catheterization 11/03/2004: PAST SURGICAL HISTORY OF Comment: left breast bx No date: PAST SURGICAL HISTORY OF Comment: D & C, multiple 1990: PAST SURGICAL HISTORY OF; Right Comment: carpal tunnel release No date: PAST SURGICAL HISTORY OF Comment: Right arm surgery, ulnar nerve decompression X7 05/2009: PAST SURGICAL HISTORY OF Comment: ganglion cyst removed right wrist 03/02/2016: PAST SURGICAL HISTORY OF Comment: pH probe 2002: PAST SURGICAL HISTORY OF; Left Comment: carpal tunnel release 02/11/2017: PAST SURGICAL HISTORY OF Comment: laproscopic Walter Fundoplication.(Dr. Rojas [facility]) 12/2021: PAST SURGICAL HISTORY OF; Right Comment: Tx of meniscus tear and Fx No date: PAST SURGICAL HISTORY OF; Left Comment: removal of foreign body in left foot. 04/2015: RECONSTRUCT VAGINAL WALL WITH MESH 02/28/2009: REMOVE CATARACT, INSERT LENS,EX Comment: Both Eyes No date: REMV CATARACT EXTRACAP,INSERT LENS; Bilateral 09/03/2015: RETROARC BLADDER SLING [id number] Comment: retroarc tension free vaginal sling 1955: TONSILLECTOMY HX 1988: TOTAL ABDOM HYSTERECTOMY 04/2020: VENOGRAM UNILATERAL Comment: groin SOCIAL HISTORY Tobacco: Non-smoker, never smoked FAMILY HISTORY Does a similar condition to what you are experiencing run in your family? No REVIEW OF SYSTEMS: All other systems negative. PHYSICAL EXAM: PE: All other systems deferred. GENERAL: Appears healthy, well-nourished, no deformities. HABITUS: Obese Gait: Normal, the patient did not have trouble getting onto the exam table. Right: Alignment: Varus deformity, Correctable Range of motion is 0 degrees in extension and 120 degrees of flexion. Extension La degrees Pain with ROM: Yes Effusion: Mild Tender to the palpation of Medial femoral condyle and Medial joint line Pain with patellar compression: Yes Stability: Anterior/Posterior stable and Varus/Valgus stable Hip Exam: flexion to 100+ degrees, full extension, internal/external rotation adequate, and no painwith log roll Neurovascular Status: Sensation Intact, Moves foot and ankle up & down, and 2+ dorsalis pedis Strength: 5 Skin: Normal RADIOGRAPHS (personally reviewed): right knee OA worst in the medial compartment. Prior subchondroplasty evident with opacity in the medial tibia. MRI: none DIAGNOSIS Encounter Diagnosis ICD-10-CM 1. Primary osteoarthritis of right knee M17.11 PLAN Patient has right knee osteoarthritis. She does not want to pursue knee replacement at this time. We discussed cortisone injections and gel injections today. She does not believe in the efficacy of gel injections, so we will pursue cortisone today. She would like to follow up with Dr. Dhillon or Rebekah Eduardo as she is from the [facility] and they performed surgery on her left knee. I spent a total of 30 minutes on the date of the service which included preparing to see the patient, [id number] patient care, completing clinical documentation, obtaining and/or reviewing separately obtained history, performing a medically appropriate examination, counseling and educating the pat ient/family/caregiver, ordering medications, tests, or procedures, communicating with other HCPs (not separately reported), independently interpreting results (not separately reported), communicatingresults to the patient/family/caregiver, and care coordination (not separately reported). PROCEDURE: Large Joint Arthro/Inj: R knee joint Informed Consent Consent Obtained: Verbal [place] Protocol A moment to CARE was completed. SIGN IN Personnel directly involved with the procedure wore the appropriate PPE. Special Equipment: N/A Patient/Surrogate Stated/Verified: Patient name, Date of , Relevant allergies and Intended procedure TIME OUT Relevant labs, photos, and/or imaging studies have been reviewed. Correct side/site marked and visible. Medications required for procedure verified. No fire risk assessment and interventions applicable. No implant(s) inserted. 03/03/2024 11:26 AM The procedure site was prepped in the usual sterile fashion. Site: R knee joint Medications: 80 mg triamcinolone acetonide 40 mg/mL Anesthetics: 5 mL lidocaine (PF) 10 mg/mL (1 %) Outcome: Tolerated well, no immediate complications Post-injection instructions were reviewed with the patient and the patient voiced understanding of these instructions. SIGN OUT All instruments, equipment, possible retained foreign bodies accounted for. Garth Gonzalez PA-C documented in this encounterWood [facility]08-[facility] History of Present illness Narrative* Tanya Delgado Tech - 03/03/2024 9:20 AM EDT Radiology Service Progress Note PATIENT NAME: Nora Camarillo DATE OF SERVICE: March 03, 2024 TIME: 9:30 AM PATIENT IDENTITY VERIFICATION COMPLETED USING TWO (2) IDENTIFIERS: Name and Date of confirmedby patient verbally. FALL SCREENING: Has the patient had 2 falls in the last year or 1 fall with injury or currently using an Ambulatory Assistive Device (Walker, Cane, Wheelchair, Crutches, etc.)? No PATIENT GENDER DATA: Female. status: : No status: NO. PATIENT RELEVANT IMPLANT DATA REVIEWED: Not Applicable PATIENT PRESENTS WITH AN IMPLANTABLE OR ATTACHED RUG DRY ROOM ATTENDANT: No RADIOLOGY DEPARTMENT: General X-ray: Exam(s) Completed: Lower Extremity X- Ray(s): Knee, AP / Lat / Tunne / Merchant Right and Wt. Bearing and Leg Length PERIPHERAL IV DATA: Not applicable SIGNED BY: Anastasiia Vega March 03, 2024 9:30 AM documented in this encounterWood [facility] Hospital08-23-2024 NoteHNO ID: [id number] Author: TANYA DELGADO Tech Service: ? Author Type: [place] [employer] Laborer Type: Progress Notes Filed: 03/03/2024 09:31 Note Text: Radiology Service Progress Note PATIENT NAME: Nora Camarillo DATE OF SERVICE: March 03, 2024 TIME: 9:30 AM PATIENT IDENTITY VERIFICATION COMPLETED USING TWO (2) IDENTIFIERS: Name and Date of confirmed by patient verbally. FALL SCREENING: Has the patient had 2 falls in the last year or 1 fall with injury or currently using an Ambulatory Assistive Device (Walker, Cane, Wheelchair, Crutches, etc.)? No PATIENT GENDER DATA: Female. status: : No status: NO. PATIENT RELEVANT IMPLANT DATA REVIEWED: Not Applicable PATIENT PRESENTS WITH AN IMPLANTABLE OR ATTACHED RUG DRY ROOM ATTENDANT: No RADIOLOGY DEPARTMENT: General X-ray: Exam(s) Completed: Lower Extremity X-Ray(s): Knee, AP / Lat / Tunne / Merchant Right and Wt. Bearing and Leg Length PERIPHERAL IV DATA: Not applicable SIGNED BY: Anastasiia Vega March 03, 2024 9:30 AMOhiohealth Nelsonville Health [id number] Telephone encounter Note* Telephone Encounter - Treasure Sanchez MA - 02/21/2024 11:25 AM EDT Patient notified and voiced understanding. Treasure Sanchez MA Patient was scheduled. Treasure Sanchez MA [facility]08-[facility] Miscellaneous Notes* Telephone Encounter - Treasure Sanchez MA - 02/21/2024 11:25 AM EDT Patient notified and voiced understanding. Treasure Sanchez MA Patient was scheduled. Treasure Sanchez MA * Telephone Encounter - Jaylin Combs PA-C - 02/21/2024 10:56 AM EDT Patient cancelled her wellness exam. Please help to reschedule documented in this encounterWood [facility] Hospital08-12-2024 Telephone encounter Note * Telephone Encounter - Jaylin Combs PA-C - 02/21/2024 10:56 AM EDT Patient cancelled her wellness exam. Please help to reschedule [facility]08-06-2024 NoteHNO ID: [id number] Author: MILENA DUCKWORTH RPFT Service: ? Author Type: Respiratory Therapist Type: Procedures Filed: 02/15/2024 11:40 Note Text: RESPIRATORY THERAPY ORAL EXHALED NITRIC OXIDE SERVICE DATE: 02/15/2024 SERVICE TIME: 11:40 AM Oral Exhaled Nitric Oxide measurement: 14.0 (ppb) Normal: Adult <25 ppb, pediatric (<12 years) <20 ppb High Normal / Increased: Adult 25-50 ppb, pediatric (<12 years) 20-35 ppb Moderately raised exhaled Nitric Oxide may indicate underlying inflammation, but note that: Cold and influenza can raise exhaled Nitric Oxide and some patients have higher baseline exhaled Nitric Oxide levels than others. High: Adult >50 ppb, pediatric (<12 years) >35 ppb Indicative of ongoing eosinophilic inflammation. Symptomatic patient likely to respond to steroids. Possible causes (if already on steroids): Poor compliance, recent allergen exposure, steroid dose inadequate, and steroid resistance. Note that not all patients with high exhaled nitric oxide levels display symptoms. Oral Exhaled Nitric Oxide measurement (Previous Encounters) Test Date Oral Exhaled Nitric Oxide (ppb) 02/15/2024 14.0 NAME: ALISA Naylor PATIENT NAME: Nora Camarillo DATE: February 15, 2024 TIME: 11:40 [facility]08-06-2024 Procedure note* Milena Duckworth RPFT - 02/15/2024 11:40 AM EDTAssociated Order(s): NITRIC OXIDE, EXHALED RESPIRATORY THERAPY ORAL EXHALED NITRIC OXIDE SERVICE DATE: 02/15/2024 SERVICE TIME: 11:40 AM Oral Exhaled Nitric Oxide measurement: 14.0 (ppb) Normal: Adult <25 ppb, pediatric (<12 years) <20 ppb High Normal / Increased: Adult 25-50 ppb, pediatric (<12 years) 20-35 ppb Moderately raised exhaled Nitric Oxide may indicate underlying inflammation, but note that: Cold and influenza can raise exhaled Nitric Oxide and some patients have higher baseline exhaled Nitric Oxide levels than others. High: Adult >50 ppb, pediatric (<12 years) >35 ppb Indicative of ongoing eosinophilic inflammation. Symptomatic patient likely to respond to steroids. Possible causes (if already on steroids): Poor compliance, recent allergen exposure, steroid dose inadequate, and steroid resistance. Note that not all patients with high exhaled nitric oxide levels display symptoms. Oral Exhaled Nitric Oxide measurement (Previous Encounters) Test Date Oral Exhaled Nitric Oxide (ppb) 02/15/2024 14.0 NAME: ALISA Naylor PATIENT NAME: Nora Camarillo DATE: February 15, 2024 TIME: 11:40 AM [facility] Procedure note* Milena Duckworth RPFT - 02/15/2024 11:40 AM EDTAssociated Order(s): NITRIC OXIDE, EXHALED RESPIRATORY THERAPY ORAL EXHALED NITRIC OXIDE SERVICE DATE: 02/15/2024 SERVICE TIME: 11:40 AM Oral Exhaled Nitric Oxide measurement: 14.0 (ppb) Normal: Adult <25 ppb, pediatric (<12 years) <20 ppb High Normal / Increased: Adult 25-50 ppb, pediatric (<12 years) 20-35 ppb Moderately raised exhaled Nitric Oxide may indicate underlying inflammation, but note that: Cold and influenza can raise exhaled Nitric Oxide and some patients have higher baseline exhaled Nitric Oxide levels than others. High: Adult >50 ppb, pediatric (<12 years) >35 ppb Indicative of ongoing eosinophilic inflammation. Symptomatic patient likely to respond to steroids. Possible causes (if already on steroids): Poor compliance, recent allergen exposure, steroid dose inadequate, and steroid resistance. Note that not all patients with high exhaled nitric oxide levels display symptoms. Oral Exhaled Nitric Oxide measurement (Previous Encounters) Test Date Oral Exhaled Nitric Oxide (ppb) 02/15/2024 14.0 NAME: ALISA Naylor PATIENT NAME: Nora Camarillo DATE: February 15, 2024 TIME: 11:40 AM documented in this encounterWood [facility]08-06-2024 History of Present illness Narrative* Lorenza Reza MD - 02/15/2024 11:00 AM EDT Images from the original note were not included. . Respiratory [place] Note Patient name: Nora Camarillo PCP: Scot Blank MD CC: follow up cough HPI: Nora Camarillo 73 year old female non-smoker with PMH significant for obesity, hiatal hernia, HLD, PAD, asthma last seen in pulmonary clinic in 2016, new to me. At that time she was intolerant of inhalers (Advair, Symbicort, Foradil) was using her albuterol 2-3 times a day, pulmonary function test without significant obstruction but exhaled nitric oxide level elevated at 34 ppb. Settled on nebulized budesonide, but does not use it on a regular basis. In the past she had significant nocturnal awakenings, dyspnea on exertion, wheezing, mainly dry cough and chest congestion. Known significant GERD with hiatal hernia, s/p Walter fundoplication without improvement in her nocturnal symptoms. Her asthma is worsened by exposure to candles, fumes, heat and humidity and cold air. She also has known allergies, never received immunotherapy, and was not on allergy medication. 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 She has a dog in her home currently forthe past 9 years. She was started on Singulair approximately 3 months ago with marked improvement in her symptoms. Not needing her albuterol. She was told that she needed to reestablish in the pulmonary clinic if she wanted to continue on her allergy medication. DATA: PFT: Spirometry shows mid flows obstruction that improves postbronchodilator SERVICE DATE: 02/15/2024 SERVICE TIME: 11:40 AM Oral Exhaled Nitric Oxide measurement: 14.0 (ppb) RESULT 05/21/15: Mean Oral Exhaled NO (ppb): 34 Labs: Review of past laboratory testing shows eosinophilia in 2019. Imaging / Diagnostic Studies: DATE OF EXAM: Sep 06 2023 12:07PM WOX [id number] - XR CHEST 2V FRONTAL/LAT / CLINICAL HISTORY: Bronchitis MQ: [id number] EXAM DATE/TIME: 09/06/2023 12:07 PM COMPARISON: Chest x-ray dated October 19, 2022 RESULT: Lines, tubes, and devices: None. Lungs and pleura: No consolidation. No lung mass. No pleural effusion. No pneumothorax. Cardiomediastinal silhouette: Normal cardiomediastinal silhouette. Bones and soft tissues: Mild degenerative changes. IMPRESSION: No acute radiographic abnormality. Chest x-ray reviewed and is unremarkable PAST MEDICAL HISTORY 01/03/2019: Abnormal computed tomography angiography (CTA) Comment: right upper ICA with abnormality, consult to vascular 12/201804/13/2019: Acute meniscal tear of left knee 02/12/2022: Advance directive discussed with patient Comment: Discussed 02/2022 No date: Allergies 09/27/2020: Anxiety and depression 02/19/2019: Arthritis of left knee 01/03/2019: Bilateral carotid artery stenosis Comment: US: 12/2018 20-40% tatyana 01/01/2016: Chronic bilateral low back pain Comment: Seen [facility] 09/27/2020: Chronic pain of both ankles 09/27/2020: Chronic pain of left knee 09/30/2021: Chronic pain of right knee Comment: Sees [facility] 08/25/2019: Current use of proton pump inhibitor 06/20/2019: 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 Comment: S/p surgery 06/201909/18/2011: Delayed gastric emptying No date: Diverticulosis of large intestine 12/10/2015: Elevated fasting blood sugar 01/19/2018: Essential tremor 09/27/2020: Family history of thyroid disease 03/13/2016: Gastric diverticulum 03/13/2016: Gastroesophageal reflux disease with esophagitis Comment: S/P Walter 02/[address] rojas 07/22/2016: Hiatal hernia 09/14/2017: Left hip pain Comment: Seeing [facility] Dr. Xander Martinez 02/15/2019: Left lateral abdominal pain Comment: Mid quadrant, chronic and paroxysmal. 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 Linn 11/20/2009: Mixed hyperlipidemia 06/27/2021: Mixed incontinence Comment: Seeing Dr. Queen 06/15/2019: Obesity, Class I, BMI 30-34.9 08/25/2019: Palpitations 07/22/2016: Primary insomnia 03/13/2016: PUD (peptic ulcer disease) Comment: Hx of ulcer 2018 and two again in 10/2020. No NSAID's (aspirin held 10/2020) 11/08/2023: Second hand smoke exposure 01/05/2006: Senile osteoporosis Comment: Clinical Team Manager following (Dr. Dobson) 11/2009: Simple cyst of breast Comment: Left retroareolar No date: Unspecified constipation ALLERGIES Allergen Reactions Morphine GI Upset nausea Nsaids (Non-Steroid* Other: See Comments Hx of stomach ulcers Advair Diskus [Flut* Intolerance Hurts throat Bentyl [Dicyclomine* Unknown Celebrex [Celecoxib] GI Upset Dicyclomine Other: See Comments Dry mouth, blurred vision, loss of taste Estrace [Estradiol] Itching Evista [Raloxifene * Itching Macrobid [Nitrofura* Other: See Comments Hair loss Medrol [Methylpredn* Other: See Comments Dry mouth, sore throat. Mobic [Meloxicam] Intolerance Oxycontin [Oxycodon* Itching Penicillins Itching Prozac [Fluoxetine * Unknown Sulfamethizole GI Upset Symax-Sl [Hyoscyami* Unknown Zolpidem (AMBIEN CR) 12.5 mg CR tablet Take 1 tablet by mouth at bedtime as needed for sedation forup to 90 days. montelukast (SINGULAIR) 10 mg tablet Take 1 tablet by mouth daily at bedtime. pantoprazole DR (PROTONIX) 20 mg tablet Take 1 tablet by mouth two times a day as needed. Benzonatate 200 mg capsule Take 1 capsule by mouth three times a day as needed. albuterol HFA (VENTOLIN HFA) 90 mcg/actuation inhaler Inhale 2 Puffs as instructed every 4 hours asneeded. nystatin (NYSTOP) powder Apply 1 application to affected area three times daily. to affected area as needed budesonide (PULMICORT) 0.25 mg/2 mL nebulizer solution USE 2 ML VIA NEBULIZER TWICE DAILY. DX: MILDPERSISTENT ASTHMA J45.21 montelukast (SINGULAIR) 10 mg tablet Take 1 tablet by mouth daily at bedtime. predniSONE (DELTASONE) 10 mg tablet Take 4 daily for three days, then 3 daily for three days, then 2 daily for three days, then one daily for three days. cetirizine (ZYRTEC) 10 mg tablet Take 1 tablet by mouth once daily. (Patient not taking: Reported on 02/15/2024) dextromethorphan-guaiFENesin (MUCINEX DM) 30-600 mg per tablet Take 1 tablet by mouth two times a day. (Patient not taking: Reported on 10/04/2023) VITAFUSION WOMEN GUMMY as directed. (Patient not taking: Reported on 02/15/2024) Social History Tobacco Use Smoking status: Never Passive exposure: Never Smokeless tobacco: Never Tobacco comments: Father smoked occasionally in childhood home. Spouse smoked in home until 4 years ago. 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 FAMILY HISTORY Problem Relation Age of Onset Heart Mother Diabetes Mother Cancer Father base of skull other (parkinsons) Father Thyroid Sister Breast Cancer Sister other (hepatitis) Sister @62yrs of age/Liver Problems Thyroid Daughter Thyroid Daughter Cervical Cancer Daughter No Ocular Disease No Family History Positive for eczema and allergies PAST SURGICAL HISTORY No date: APPENDECTOMY 06/23/2019: ARTHRS KNE SURG W/MENISCECTOMY MED/LAT W/SHVG; Left Comment: Left knee medial and lateral menisectomies, medial and PF chondroplasties 2003: BREAST BIOPSY; Left 2004: CARDIAC CATH 05/22/2019: COLONOSCOPY FLX DX W/COLLJ SPEC WHEN PFRMD Comment: Colonoscopy 02/2013: COLPOPEXY VAGINAL EXTRAPERITONEAL APPROACH Comment: repair of rectal and vaginal prolapse 01/28/2016: COLSC FLX W/RMVL OF TUMOR POLYP LESION SNARE TQ Comment: repeat 10 yrs 10/16/2020: EGD Comment: 2 cratered gastric ulcers; Dr. Guillermo 01/24/2007: EGD TRANSORAL BIOPSY SINGLE/MULTIPLE 01/28/2016: EGD TRANSORAL BIOPSY SINGLE/MULTIPLE 04/29/2016: ESOPHAGEAL MOTILITY STUDY W/INTERP&RPT 05/22/2005: ESOPHAGOGASTRODUODENOSCOPY TRANSORAL DIAGNOSTIC Comment: EGD H-pylori negative 03/02/2016: ESOPHAGOGASTRODUODENOSCOPY TRANSORAL DIAGNOSTIC 05/22/2019: ESOPHAGOGASTRODUODENOSCOPY TRANSORAL DIAGNOSTIC Comment: EGD 12/10/2020: ESOPHAGOGASTRODUODENOSCOPY TRANSORAL DIAGNOSTIC Comment: healed ulcers; fundoplication intact; Dr. Guillermo 03/02/2016: GASTROESOPHAG REFLX TEST W/TELEMTRY PH ELTRD Comment: 48 hour ph probe 1970 & 1972: HERNIA REPAIR HX Comment: herniorrhaphy, umbilical, right inguinal . 01/2005: PAST SURGICAL HISTORY OF Comment: heart catheterization 11/03/2004: PAST SURGICAL HISTORY OF Comment: left breast bx No date: PAST SURGICAL HISTORY OF Comment: D & C, multiple 1990: PAST SURGICAL HISTORY OF; Right Comment: carpal tunnel release No date: PAST SURGICAL HISTORY OF Comment: Right arm surgery, ulnar nerve decompression X7 05/2009: PAST SURGICAL HISTORY OF Comment: ganglion cyst removed right wrist 03/02/2016: PAST SURGICAL HISTORY OF Comment: pH probe 2002: PAST SURGICAL HISTORY OF; Left Comment: carpal tunnel release 02/11/2017: PAST SURGICAL HISTORY OF Comment: laproscopic Walter Fundoplication.(Dr. Rojas [facility]) 12/2021: PAST SURGICAL HISTORY OF; Right Comment: Tx of meniscus tear and Fx No date: PAST SURGICAL HISTORY OF; Left Comment: removal of foreign body in left foot. 04/2015: RECONSTRUCT VAGINAL WALL WITH MESH 02/28/2009: REMOVE CATARACT, INSERT LENS,EX Comment: Both Eyes No date: REMV CATARACT EXTRACAP,INSERT LENS; Bilateral 09/03/2015: RETROARC BLADDER SLING [id number] Comment: retroarc tension free vaginal sling 1955: TONSILLECTOMY HX 1988: TOTAL ABDOM HYSTERECTOMY 04/2020: VENOGRAM UNILATERAL Comment: groin PMH, Social history, family history and surgical history reviewed and updated in EMR REVIEW OF SYSTEMS: CONSTITUTIONAL: No fevers, chills, nightsweats, unintended weight loss HEENT: Current nasal congestion/sinus symptoms, postnasal drip EYES: No diplopia or blurry vision, itchy eyes CARDIOVASCULAR: No chest pain, dyspnea, palpitations, orthopnea, PND, edema. PULM: See HPI GI: No dysphagia/odynophagia, problematic reflux NEURO: No balance problems, peripheral weakness/paresthesias or numbness of concern. MUSC-SKEL: No joint pain, swelling, or erythema. INTEGUMENTARY: No new skin changes, rashes, eczema PHYSICAL EXAMINATION: BP 130/76 Pulse 72 Resp 17 Wt 187 lb (84.8kg) SpO2 95% General Appearance: Age appropriate, frequent throat clearing. Skin: Skin color, texture, turgor normal, no suspicious rashes or lesions. Head: Normocephalic, no masses, lesions, tenderness or abnormalities. Eyes: Sclera, conjunctiva normal. Oropharynx: No oral lesions or thrush. Neck: No JVD, no masses or adenopathy. Lungs: Not labored, normal to percussion, no wheezes. Dry cough. Heart: RRR, no murmur. Extremities: Pedal edema, no clubbing. Lymph Nodes: No cervical lymphadenopathy and No supraclavicular lymphadenopathy. Assessment/Plan: Cough variant asthma -Just started coughing today after her pulmonary function testing -Refilled prescription for her Singulair -She will continue albuterol as needed -Patient reluctant to use inhaled corticosteroid. Gave her a course of oral steroids and if cough completely resolves will need some form of maintenance inhaled therapy Multiple allergies -IgE and eosinophil count -Allergen avoidance -Continue Singulair as allergy symptoms seems to be controlled. Prescription refilled Lorenza Reza MD [facility] [place] [facility] NoteHNO ID: [id number] Author: LORENZA REZA MD Service: ? Author Type: Physician Type: Progress Notes Filed: 02/15/2024 14:27 Note Text: . [facility] [place] Note Patient name: Nora Camarillo PCP: Scot Blank MD CC: follow up cough HPI: Nora Camarillo 73 year old female non-smoker with PMH significant for obesity, hiatal hernia, HLD, PAD, asthma last seen in pulmonary clinic in 2017, new to me. At that time she was intolerant of inhalers (Advair, Symbicort, Foradil) was using her albuterol 2-3 times a day, pulmonary function test without significant obstruction but exhaled nitric oxide level elevated at 34 ppb. Settled on nebulized budesonide, but does not use it on a regular basis. In the past she had significant nocturnal awakenings, dyspnea on exertion, wheezing, mainly dry cough and chest congestion. Known significant GERD with hiatal hernia, s/p Walter fundoplication without improvement in her nocturnal symptoms. Her asthma is worsened by exposure to candles, fumes, heat and humidity and cold air. She also has known allergies, never received immunotherapy, and was not on allergy medication. 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 She was started on Singulair approximately 3 months ago with marked improvement in her symptoms. Not needing her albuterol. She was told that she needed to reestablish in the pulmonary clinic if she wanted to continue on her allergy medication. DATA: PFT: Spirometry shows mid flows obstruction that improves postbronchodilator SERVICE DATE: 02/15/2024 SERVICE TIME: 11:40 AM Oral Exhaled Nitric Oxide measurement: 14.0 (ppb) RESULT 05/21/15: Mean Oral Exhaled NO (ppb): 34 Labs: Review of past laboratory testing shows eosinophilia in 2019. Imaging / Diagnostic Studies: DATE OF EXAM: Sep 06 2023 12:07PM WOX [id number] - XR CHEST 2V FRONTAL/LAT / CLINICAL HISTORY: Bronchitis MQ: [id number] EXAM DATE/TIME: 09/06/2023 12:07 PM COMPARISON: Chest x-ray dated October 19, 2022 RESULT: Lines, tubes, and devices: None. Lungs and pleura: No consolidation. No lung mass. No pleural effusion. No pneumothorax. Cardiomediastinal silhouette: Normal cardiomediastinal silhouette. Bones and soft tissues: Mild degenerative changes. IMPRESSION: No acute radiographic abnormality. Chest x-ray reviewed and is unremarkable PAST MEDICAL HISTORY 01/03/2019: Abnormal computed tomography angiography (CTA) Comment: right upper ICA with abnormality, consult to vascular 12/201804/13/2019: Acute meniscal tear of left knee 02/12/2022: Advance directive discussed with patient Comment: Discussed 02/2022 No date: Allergies 09/27/2020: Anxiety and depression 02/19/2019: Arthritis of left knee 01/03/2019: Bilateral carotid artery stenosis Comment: US: 12/2018 20-40% tatyana 01/01/2016: Chronic bilateral low back pain Comment: Seen [facility] 09/27/2020: Chronic pain of both ankles 09/27/2020: Chronic pain of left knee 09/30/2021: Chronic pain of right knee Comment: Sees [facility] 08/25/2019: Current use of proton pump inhibitor 06/20/2019: 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 Comment: S/p surgery 06/201909/18/2011: Delayed gastric emptying No date: Diverticulosis of large intestine 12/10/2015: Elevated fasting blood sugar 01/19/2018: Essential tremor 09/27/2020: Family history of thyroid disease 03/13/2016: Gastric diverticulum 03/13/2016: Gastroesophageal reflux disease with esophagitis Comment: S/P Walter 02/[address] rojas 07/22/2016: Hiatal hernia 09/14/2017: Left hip pain Comment: Seeing [facility] Dr. Xander Martinez 02/15/2019: Left lateral abdominal pain Comment: Mid quadrant, chronic and paroxysmal. 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 Linn 11/20/2009: Mixed hyperlipidemia 06/27/2021: Mixed incontinence Comment: Seeing Dr. Queen 06/15/2019: Obesity, Class I, BMI 30-34.9 08/25/2019: Palpitations 07/22/2016: Primary insomnia 03/13/2016: PUD (peptic ulcer disease) Comment: Hx of ulcer 2018 and two again in 10/2020. No NSAID's (aspirin held 10/2020) 11/08/2023: Second hand smoke exposure 01/05/2006: Senile osteoporosis Comment: Clinical Team Manager following (Dr. Dobson) 11/2009: Simple cyst of breast Comment: Left retroareolar No date: Unspecified constipation ALLERGIES Allergen Reactions Morphine GI Upset nausea Nsaids (Non-Steroid* Other: See Comments Hx of stomach ulcers Advair Diskus [Flut* Intolerance Hurts throat Bentyl [Dicyclomine* Unknown Celebrex [Celecoxib] GI Upset Dicyclomine Other: See Comm (more content not included)...[facility]08-06-2024 NoteHNO ID: [id number] Author: MILENA DUCKWORTH RPFT Service: ? Author Type: Respiratory Therapist Type: Progress Notes Filed: 02/15/2024 11:40 Note Text: PULM FUNCTION: Provider: Lorenza Reza MD Assisting Tech: Milena Duckworth RPFT Spirometry w/BD: 1 Exhaled Nitric Oxide[facility] History of Present illness Narrative* Milena Duckworth RPFT - 02/15/2024 10:51 AM EDT PULM FUNCTION: Provider: Lorenza Reza MD Assisting Tech: Milena Duckworth RPFT Spirometry w/BD: 1 Exhaled Nitric Oxide: 1 documented in this encounterWood [facility]07-19-[facility]24 Instructions* Patient Instructions* Shelley Talavera APRN.CNP - 01/28/2024 12:18 PM EDT Keep area clean and dry. Remove band-aid tomorrow and cleanse and apply neosporin or vaseline. Notify provider of any s/s of infection. documented in this encounterWood [facility]07-19-[facility] History of Present illness Narrative* Shelley Talavera APRN.CNP - 01/28/2024 11:29 AM EDT This is a 73 year old female who presents today with: Patient presents with: Acute Visit: Skin tag on R side of neck; becoming red, irritated HISTORY OF PRESENT ILLNESS: Nora Camarillo is a 73 year old female. Patient presents with: Acute Visit: Skin tag on R side of neck; becoming red, irritated Pt presents with skin tag starting to get irritated Pt has had skin tag for many years Starting 5 days ago, it started getting red at the base and is painful No swelling Not sure how much it has grown recently Skin tag is 2 mm x 3 mm, brown in color PAST MEDICAL HISTORY: PAST MEDICAL HISTORY Diagnosis Date Abnormal computed tomography angiography (CTA) 01/03/2019 right upper ICA with abnormality, consult to vascular 12/2018 Acute meniscal tear of left knee 04/13/2019 Advance directive discussed with patient 02/12/2022 Discussed 02/2022 Anxiety and depression 09/27/2020 Arthritis of left knee 02/19/2019 Bilateral carotid artery stenosis 01/03/2019 US: 12/2018 20-40% tatyana Chronic bilateral low back pain 01/01/2016 Seen [facility] Chronic pain of both ankles 09/27/2020 Chronic pain of left knee 09/27/2020 Chronic pain of right knee 09/30/2021 Sees [facility] Current use of proton pump inhibitor 08/25/2019 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 rojas Hiatal hernia 07/22/2016 Left hip pain 09/14/[address] [place] Xander Martinez Left lateral abdominal pain 02/15/2019 Mid quadrant, chronic and paroxysmal. 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 Linn Mixed hyperlipidemia 11/20/2009 Mixed incontinence 06/27/[address] Queen Obesity, Class I, BMI 30-34.9 06/15/2019 Palpitations 08/25/2019 Primary insomnia 07/22/2016 PUD (peptic ulcer disease) 03/13/2016 Hx of ulcer 2018 and two again in 10/2020. No NSAID's (aspirin held 10/2020) Second hand smoke exposure 11/08/2023 Senile osteoporosis 01/05/2006 Clinical Team Manager following (Dr. Dobson) Simple cyst of breast 11/2009 Left retroareolar Unspecified constipation PAST SURGICAL HISTORY Procedure Laterality Date APPENDECTOMY ARTHRS KNE SURG W/MENISCECTOMY MED/LAT W/SHVG Left 06/23/2019 Left knee medial and lateral menisectomies, medial and PF chondroplasties BREAST BIOPSY Left 2002 CARDIAC CATH 2004 COLONOSCOPY FLX DX W/COLLJ SPEC WHEN PFRMD 05/22/2019 Colonoscopy COLPOPEXY VAGINAL EXTRAPERITONEAL APPROACH 02/2013 repair of rectal and vaginal prolapse COLSC FLX W/RMVL OF TUMOR POLYP LESION SNARE TQ 01/28/2016 repeat 10 yrs EGD 10/16/2020 2 cratered gastric ulcers; Dr. Guillermo EGD TRANSORAL BIOPSY SINGLE/MULTIPLE 01/24/2007 EGD TRANSORAL BIOPSY SINGLE/MULTIPLE 01/28/2016 ESOPHAGEAL MOTILITY STUDY W/INTERP&RPT 04/29/2016 ESOPHAGOGASTRODUODENOSCOPY TRANSORAL DIAGNOSTIC 05/22/2005 EGD H-pylori negative ESOPHAGOGASTRODUODENOSCOPY TRANSORAL DIAGNOSTIC 03/02/2016 ESOPHAGOGASTRODUODENOSCOPY TRANSORAL DIAGNOSTIC 05/22/2019 EGD ESOPHAGOGASTRODUODENOSCOPY TRANSORAL DIAGNOSTIC 12/10/2020 healed ulcers; fundoplication intact; Dr. Guillermo GASTROESOPHAG REFLX TEST W/TELEMTRY PH ELTRD 03/02/2016 48 hour ph probe HERNIA REPAIR HX 1970 & 1972 herniorrhaphy, umbilical, right inguinal . PAST SURGICAL HISTORY OF 01/2005 heart catheterization PAST SURGICAL HISTORY OF 11/03/2004 left breast bx PAST SURGICAL HISTORY OF D & C, multiple PAST SURGICAL HISTORY OF Right 1990 carpal tunnel release PAST SURGICAL HISTORY OF Right arm surgery, ulnar nerve decompression X7 PAST SURGICAL HISTORY OF 05/2009 ganglion cyst removed right wrist PAST SURGICAL HISTORY OF 03/02/2016 pH probe PAST SURGICAL HISTORY OF Left 2002 carpal tunnel release PAST SURGICAL HISTORY OF 02/11/2017 laproscopic Walter Fundoplication.(Dr. Rojas [facility]) PAST SURGICAL HISTORY OF Right 12/2021 Tx of meniscus tear and Fx PAST SURGICAL HISTORY OF Left removal of foreign body in left foot. RECONSTRUCT VAGINAL WALL WITH MESH 04/2015 REMOVE CATARACT, INSERT LENS,EX 02/28/2009 Both Eyes REMV CATARACT EXTRACAP,INSERT LENS Bilateral RETROARC BLADDER SLING [id number] 09/03/2015 retroarc tension free vaginal sling TONSILLECTOMY HX 195 TOTAL ABDOM HYSTERECTOMY 1989 VENOGRAM UNILATERAL 04/2020 groin ALLERGIES Morphine, Nsaids (Non-Steroidal Anti-Inflammatory Drug), Advair Diskus [Fluticasone Propion-Salmeterol], Bentyl [Dicyclomine Hcl], Celebrex [Celecoxib], Dicyclomine, Estrace [Estradiol], Evista [Raloxifene Hcl], Macrobid [Nitrofurantoin Monohyd/M-Cryst], Medrol [Methylprednisolone], Mobic[Meloxicam], Oxycontin [Oxycodone Hcl], Penicillins, Prozac [Fluoxetine Hcl], Sulfamethizole, and Symax-Sl [Hyoscyamine Sulfate] MEDICATIONS Current Outpatient Medications Medication Sig montelukast (SINGULAIR) 10 mg tablet Take 1 tablet by mouth daily at bedtime. pantoprazole DR (PROTONIX) 20 mg tablet Take 1 tablet by mouth two times a day as needed. Benzonatate 200 mg capsule Take 1 capsule by mouth three times a day as needed. cetirizine (ZYRTEC) 10 mg tablet Take 1 tablet by mouth once daily. Zolpidem (AMBIEN CR) 12.5 mg CR tablet Take 1 tablet by mouth at bedtime as needed for sedation forup to 90 days. dextromethorphan-guaiFENesin (MUCINEX DM) 30-600 mg per tablet Take 1 tablet by mouth two times a day. (Patient not taking: Reported on 10/04/2023) VITAFUSION WOMEN GUMMY as directed. albuterol HFA (VENTOLIN HFA) 90 mcg/actuation inhaler Inhale 2 Puffs as instructed every 4 hours asneeded. nystatin (NYSTOP) powder Apply 1 application to affected area three times daily. to affected area as needed budesonide (PULMICORT) 0.25 mg/2 mL nebulizer solution USE 2 ML VIA NEBULIZER TWICE DAILY. DX: MILDPERSISTENT ASTHMA J45.21 No current facility-administered medications for this visit. FAMILY HISTORY Problem Relation Age of Onset Heart Mother Diabetes Mother Cancer Father base of skull other (parkinsons) Father Thyroid Sister Breast Cancer Sister other (hepatitis) Sister @62yrs of age/Liver Problems Thyroid Daughter Thyroid Daughter Cervical Cancer Daughter No Ocular Disease No Family History Social History Tobacco Use Smoking status: Never Passive exposure: Never Smokeless tobacco: Never Tobacco comments: Father smoked occasionally in childhood home. Spouse smoked in home until 4 years ago. Vaping Use Vaping Use: Never used Substance Use Topics Alcohol use: No Drug use: No EXAM: BP 142/80 Pulse 76 Resp 16 SpO2 93% PHYSICAL EXAM: General Appearance: Well appearing, alert, in no acute distress, well-hydrated, well nourished.. Skin: Skin color, texture, turgor normal. Skin tag right neck is 2 mm x 3 mm, brown in color on an inflamed base. Head: Normocephalic, no masses, lesions, tenderness or abnormalities. Eyes: Anicteric sclera. Extraocular movements are intact. . Neurologic: Gait normal. ASSESSMENT/PLAN: 1. Inflamed skin tag - ICD9: 701.9, 686.9, ICD10: L91.8 (primary diagnosis) Pt with painful and inflamed skin tag on the right neck. Discussed options and patient would like the lesion removed today. After discussing the risks/benefits of treatment and verifying allergies, informed consent was obtained. Time out performed. Area cleansed with betadine. Anesthetized with 1% lidocaine w/ epi. Shave excision of right neck lesion via 11 blade. Hemostasis with aluminum chloride. Aquaphor and dry sterile dressing applied. Patient tolerated well. Aftercare discussed. 2. Primary insomnia - ICD9: 307.42, ICD10: F51.01 Refill: - ZOLPIDEM ER 12.5 MG TABLET,EXTENDED RELEASE,MULTIPHASE UNIVERSAL PROTOCOL / SAFETY CHECKLIST Procedure to be Performed: shave excision inflamed skin tag right neck. Sign In: A Moment of CARE was completed. Personnel directly involved with the procedure wore the appropriate PPE (Personal Protective Equipment). No special equipment needed. Patient/Surrogate Stated/Verified: PATIENT VERIFIED(optional for EMERGENT procedures): Patient name, Date of , Relevant allergies, and The intended procedure Time Out Communication: Intended patient and procedure match the source documents. Consent documented and matches the intended procedure. No relevant labs, photos, and/or imaging studies were applicable for review. Correct side/site marked and visible. Medications required for procedure verified. No fire risk assessment and interventions applicable. No implant(s) inserted. Sign Out: SIGN OUT (optional for EMERGENT procedures): No specimen collected. All instruments, equipment, possible retained foreign bodies accounted for. Post-procedure follow-up management communicated and Plan of Care Visit completed when applicable. Discussed treatment plan and patient voices understanding. Patient's questions answered appropriately. Medications and potential side effects were discussed and patient voices understanding. Return to the office as scheduled or as needed for worsening/no improvement. Shelley Talavera APRN.ECHOCARDIOGRAPHER documented in [facility] encounter[facility]07-[facility]24 Telephone encounter Note * Telephone Encounter - Qasim Patterson LPN - 01/10/2024 9:56 AM EDT Prescription Refill Information The patient has been identified by name and date of : Yes Caregiver verified no other encounters exist for this prescription request: Yes Caregiver confirmed with patient/requestor that no other refills are due, in the near future, with this provider at this time: Yes The last office visit in the department: 11/09/23 Does the patient have a future office visit with this provider/department: Yes Requested Prescriptions Pending Prescriptions Disp Refills montelukast (SINGULAIR) 10 mg tablet 30 tablet 1 Sig: Take 1 tablet by mouth daily at bedtime. Qasim Patterson LPN January 10, 2024 9:56 AM [facility]07-01-[facility] Miscellaneous Notes* Telephone Encounter - Qasim Patterson LPN - 01/10/2024 9:56 AM EDT Prescription Refill Information The patient has been identified by name and date of : Yes Caregiver verified no other encounters exist for this prescription request: Yes Caregiver confirmed with patient/requestor that no other refills are due, in the near future, with this provider at this time: Yes The last office visit in the department: 11/09/23 Does the patient have a future office visit with this provider/department: Yes Requested Prescriptions Pending Prescriptions Disp Refills montelukast (SINGULAIR) 10 mg tablet 30 tablet 1 Sig: Take 1 tablet by mouth daily at bedtime. Qasim Patterson LPN January 10, 2024 9:56 AM * Telephone Encounter - Angelia Jj - 01/10/2024 9:36 AM EDT Prescription Refill Information The patient has been identified by name and date of : Yes Caregiver verified no other encounters exist for this prescription request: Yes Caregiver confirmed with patient/requestor that no other refills are due, in the near future, with this provider at this time: Yes The last office visit in the department: 11/09/2023 Does the patient have a future office visit with this provider/department: Yes 03/03/2024 Requested Prescriptions Pending Prescriptions Disp Refills montelukast (SINGULAIR) 10 mg tablet 30 tablet 1 Sig: Take 1 tablet by mouth daily at bedtime. Angelia Santiago January 10, 2024 9:37 AM documented in [facility] encounter[facility]07-[facility]24 Telephone encounter Note * Telephone Encounter - Angelia Jj - 01/10/2024 9:36 AM EDT Prescription Refill Information The patient has been identified by name and date of : Yes Caregiver verified no other encounters exist for this prescription request: Yes Caregiver confirmed with patient/requestor that no other refills are due, in the near future, with this provider at this time: Yes The last office visit in the department: 11/09/2023 Does the patient have a future office visit with this provider/department: Yes 03/03/2024 Requested Prescriptions Pending Prescriptions Disp Refills montelukast (SINGULAIR) 10 mg tablet 30 tablet 1 Sig: Take 1 tablet by mouth daily at bedtime. [place]za [facility] [place] 9:37 AM [facility]04-[facility] History of Present illness Narrative* Jaylin Combs PA-C - 11/09/2023 1:55 PM EDT Chief Complaint Patient presents with: Cough: X 4 days, tired HPI Nora Camarillo is a 73 year old female who presents here today for Above Complaints.. Patient continues to have cough. Still feels like post nasal drainage. Has had on and off for years. We have discussed PFT, pulm and medications in past but patient would get better and then not follow up. Has not seen pulm in years. States is currently sick She feels like she is getting worse. Wheezing. Past medical history, appointments, medications, allergies reviewed. Previous Medical History PAST MEDICAL HISTORY Diagnosis Date Abnormal computed tomography angiography (CTA) 01/03/2019 right upper ICA with abnormality, consult to vascular 12/2018 Acute meniscal tear of left knee 04/13/2019 Advance directive discussed with patient 02/12/2022 Discussed 02/2022 Anxiety and depression 09/27/2020 Arthritis of left knee 02/19/2019 Bilateral carotid artery stenosis 01/03/2019 US: 12/2018 20-40% tatyana Chronic bilateral low back pain 01/01/2016 Seen [facility] Chronic pain of both ankles 09/27/2020 Chronic pain of left knee 09/27/2020 Chronic pain of right knee 09/30/2021 Sees [facility]ti [facility] Current use of proton pump inhibitor 08/25/2019 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 rojas Hiatal hernia 07/22/2016 Left hip pain 09/14/[address] [place] [facility] Xander Martinez Left lateral abdominal pain 02/15/2019 Mid quadrant, chronic and paroxysmal. 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 Linn Mixed hyperlipidemia 11/20/2009 Mixed incontinence 06/27/[address] Queen Obesity, Class I, BMI 30-34.9 06/15/2019 Palpitations 08/25/2019 Primary insomnia 07/22/2016 PUD (peptic ulcer disease) 03/13/2016 Hx of ulcer 2018 and two again in 10/2020. No NSAID's (aspirin held 10/2020) Second hand smoke exposure 11/08/2023 Senile osteoporosis 01/05/2006 Clinical Team Manager following (Dr. Dobson) Simple cyst of breast 11/2009 Left retroareolar Unspecified constipation Previous Surgical History PAST SURGICAL HISTORY Procedure Laterality Date APPENDECTOMY ARTHRS KNE SURG W/MENISCECTOMY MED/LAT W/SHVG Left 06/23/2019 Left knee medial and lateral menisectomies, medial and PF chondroplasties BREAST BIOPSY Left 2003 CARDIAC CATH 2004 COLONOSCOPY FLX DX W/COLLJ SPEC WHEN PFRMD 05/22/2019 Colonoscopy COLPOPEXY VAGINAL EXTRAPERITONEAL APPROACH 02/2013 repair of rectal and vaginal prolapse COLSC FLX W/RMVL OF TUMOR POLYP LESION SNARE TQ 01/28/2016 repeat 10 yrs EGD 10/16/2020 2 cratered gastric ulcers; Dr. Guillermo EGD TRANSORAL BIOPSY SINGLE/MULTIPLE 01/24/2007 EGD TRANSORAL BIOPSY SINGLE/MULTIPLE 01/28/2016 ESOPHAGEAL MOTILITY STUDY W/INTERP&RPT 04/29/2016 ESOPHAGOGASTRODUODENOSCOPY TRANSORAL DIAGNOSTIC 05/22/2005 EGD H-pylori negative ESOPHAGOGASTRODUODENOSCOPY TRANSORAL DIAGNOSTIC 03/02/2016 ESOPHAGOGASTRODUODENOSCOPY TRANSORAL DIAGNOSTIC 05/22/2019 EGD ESOPHAGOGASTRODUODENOSCOPY TRANSORAL DIAGNOSTIC 12/10/2020 healed ulcers; fundoplication intact; Dr. Guillermo GASTROESOPHAG REFLX TEST W/TELEMTRY PH ELTRD 03/02/2016 48 hour ph probe HERNIA REPAIR HX 1970 & 1973 herniorrhaphy, umbilical, right inguinal . PAST SURGICAL HISTORY OF 01/2005 heart catheterization PAST SURGICAL HISTORY OF 11/03/2004 left breast bx PAST SURGICAL HISTORY OF D & C, multiple PAST SURGICAL HISTORY OF Right 1990 carpal tunnel release PAST SURGICAL HISTORY OF Right arm surgery, ulnar nerve decompression X7 PAST SURGICAL HISTORY OF 05/2009 ganglion cyst removed right wrist PAST SURGICAL HISTORY OF 03/02/2016 pH probe PAST SURGICAL HISTORY OF Left 2002 carpal tunnel release PAST SURGICAL HISTORY OF 02/11/2017 laproscopic Walter Fundoplication.(Dr. Rojas [facility]) PAST SURGICAL HISTORY OF Right 12/2021 Tx of meniscus tear and Fx PAST SURGICAL HISTORY OF Left removal of foreign body in left foot. RECONSTRUCT VAGINAL WALL WITH MESH 04/2015 REMOVE CATARACT, INSERT LENS,EX 02/28/2009 Both Eyes REMV CATARACT EXTRACAP,INSERT LENS Bilateral RETROARC BLADDER SLING [id number] 09/03/2015 retroarc tension free vaginal sling TONSILLECTOMY HX 1955 TOTAL ABDOM HYSTERECTOMY 1988 VENOGRAM UNILATERAL 04/2020 groin Family History FAMILY HISTORY Problem Relation Age of Onset Heart Mother Diabetes Mother Cancer Father base of skull other (parkinsons) Father Thyroid Sister Breast Cancer Sister other (hepatitis) Sister @62yrs of age/Liver Problems Thyroid Daughter Thyroid Daughter Cervical Cancer Daughter No Ocular Disease No Family History Patient Allergies ALLERGIES Allergen Reactions Morphine GI Upset nausea Nsaids (Non-Steroid* Other: See Comments Hx of stomach ulcers Advair Diskus [Flut* Intolerance Hurts throat Bentyl [Dicyclomine* Unknown Celebrex [Celecoxib] GI Upset Dicyclomine Other: See Comments Dry mouth, blurred vision, loss of taste Estrace [Estradiol] Itching Evista [Raloxifene * Itching Macrobid [Nitrofura* Other: See Comments Hair loss Medrol [Methylpredn* Other: See Comments Dry mouth, sore throat. Mobic [Meloxicam] Intolerance Oxycontin [Oxycodon* Itching Penicillins Itching Prednisone Rash Uncertain. But did ok in 2017 Prozac [Fluoxetine * Unknown Sulfamethizole GI Upset Symax-Sl [Hyoscyami* Unknown Current Medications Current Outpatient Medications on File Prior to Visit Medication Sig pantoprazole DR (PROTONIX) 20 mg tablet Take 1 tablet by mouth two times a day as needed. Benzonatate 200 mg capsule Take 1 capsule by mouth three times a day as needed. cetirizine (ZYRTEC) 10 mg tablet Take 1 tablet by mouth once daily. Zolpidem (AMBIEN CR) 12.5 mg CR tablet Take 1 tablet by mouth at bedtime as needed for sedation forup to 90 days. VITAFUSION WOMEN GUMMY as directed. albuterol HFA (VENTOLIN HFA) 90 mcg/actuation inhaler Inhale 2 Puffs as instructed every 4 hours asneeded. nystatin (NYSTOP) powder Apply 1 application to affected area three times daily. to affected area as needed budesonide (PULMICORT) 0.25 mg/2 mL nebulizer solution USE 2 ML VIA NEBULIZER TWICE DAILY. DX: MILDPERSISTENT ASTHMA J45.21 dextromethorphan-guaiFENesin (MUCINEX DM) 30-600 mg per tablet Take 1 tablet by mouth two times a day. (Patient not taking: Reported on 10/04/2023) No current facility-administered medications on file prior to visit. Social History Social History Tobacco Use Smoking status: Never Passive exposure: Never Smokeless tobacco: Never Tobacco comments: Father smoked occasionally in childhood home. Spouse smoked in home until 4 years ago. Vaping Use Vaping Use: Never used Substance Use Topics Alcohol use: No Drug use: No Review of Symptoms REVIEW OF SYSTEMS See hpi EXAM: BP 128/86 (BP Site: Left Arm, BP Position: Sitting, BP Cuff Size: Regular Adult) Pulse 87 Temp 36.7 C (98 F) (Left Tympanic) Resp 24 Wt 85.7 kg (189 lb) SpO2 96% BMI 33.48 kg/m General Appearance: Well appearing, alert, in no acute distress, well-hydrated, well nourished.. Neck: Supple, no adenopathy; thyroid symmetric, normal size, no bruits. Lungs: Negative findings: normal respiratory rate and rhythm and chest symmetric with normal A/P diameter Positive findings: wheezing . Heart: RRR without murmur, gallop, or rubs. No ectopy. Health Maintenance List DTaP,Tdap,Td Vaccine(1 - Tdap) Never done RSV Vaccine(1 - 1-dose 60+ series) Never done Advance Directive Discussion due on 07/12/2023 Covid-19 Vaccine( season) due on 09/03/2024 Mammogram Screening due on 07/16/2024 Annual PCP Team Chronic Disease Visit due on 10/03/2024 Bone Density Screening due on 03/17/2025 Diabetes Screening due on 09/02/2026 Lipid Screening due on 09/02/2028 Colorectal Cancer Screening due on 05/22/2029 Spirometry Completed Hepatitis C Screening Completed Shingrix Vaccine Completed Pneumococcal Vaccine: 65+ Completed Influenza Vaccine Discontinued Data reviewed ASSESSMENT/PLAN: 1. Bronchitis - ICD9: 490, ICD10: J40 (primary diagnosis) Start atb and medrol pack 2. Persistent cough - ICD9: 786.2, ICD10: R05.3 Trial singulair again. Will also get patient in with pulm given recurring symptoms. - CONSULT TO PULMONARY MEDICINE 3. Mild persistent asthma without complication - ICD9: 493.90, ICD10: J45.30 As above. - CONSULT TO PULMONARY MEDICINE Jaylin Combs PA-C [facility] Telephone encounter Note * Telephone Encounter - Treasure Sanchez MA - 11/09/2023 9:15 AM EDT Patient contacted and scheduled. Treasure Sanchez MA [facility] Miscellaneous Notes* Telephone Encounter - Treasure Sanchez MA - 11/09/2023 9:15 AM EDT Patient contacted and scheduled. Treasure Sanchez MA * Telephone Encounter - Scot Blank MD - 11/08/2023 9:21 PM EDT Please let Nora know that I just don't send in scripts for meds such as prednisone without seeing a patient. also at her last visit with Jaylin she was advised to try an over the counter antihistamine and if no better was to f/u. Therefore needs seen. May need further w/u of GERD with an upper GIand a CT of her chest. I also went back and reviewed her chart and it appears she has has this ongoing cough since at least 2018 and had been seeing pulmonary for her Asthma but appears she no longer sees them. I would advise we get her re-established with pulmonary. Consult placed. * Telephone Encounter - Teresa Yepez - 11/08/2023 4:52 PM EDT Nora is calling Scot Blank MD today with concern regarding Cough and drainage. She has been seen 3 times and still has the cough. She is requesting Prednisone medication. Please call her home number. Patient has been identified by name and birthdate. Duration of symptoms: N/A Person calling: self Call patient at: on home Was an appointment scheduled: No Closing statement: Symptom Call: Thank you for [facility], your call is very important. A nurse will call in approximately 2-4 hours during business hours. If this is an emergency, please contact 911. Teresa Fitzgerald documented [facility]04-[facility] Telephone encounter Note * Telephone Encounter - Scot Blank MD - 11/08/2023 9:21 PM EDT Please let Nora know that I just don't send in scripts for meds such as prednisone without seeing a patient. also at her last visit with Jaylin she was advised to try an over the counter antihistamine and if no better was to f/u. Therefore needs seen. May need further w/u of GERD with an upper GIand a CT of her chest. I also went back and reviewed her chart and it appears she has has this ongoing cough since at least 2018 and had been seeing pulmonary for her Asthma but appears she no longer sees them. I would advise we get her re-established with pulmonary. Consult placed. [facility]04[facility] Telephone encounter Note* Telephone Encounter - Teresa Yepez - 11/08/2023 4:52 PM EDT Nora is calling Scot Blank MD today with concern regarding Cough and drainage. She has been seen 3 times and still has the cough. She is requesting Prednisone medication. Please call her home number. Patient has been identified by name and birthdate. Duration of symptoms: N/A Person calling: self Call patient at: on home Was an appointment scheduled: No Closing statement: Symptom Call: Thank you for calling [facility], your call is very important. A nurse will call in approximately 2-4 hours during business hours. If this is an emergency, please contact 911. Teresa Fitzgerald [facility]2024 Miscellaneous Notes* Telephone Encounter - Latricia Stark LPN - 10/05/2023 10:34 AM EDT Pt had OV yesterday and thought rx were being sent for pantoprazole 20 mg and benzonatate 200 mg caps. Pt asking if these can be refilled. Patient has been identified by name and date of : Yes Requested Prescriptions Pending Prescriptions Disp Refills pantoprazole DR (PROTONIX) 20 mg tablet 60 tablet 5 Sig: Take 1 tablet by mouth two times a day as needed. Benzonatate 200 mg capsule 45 capsule 1 Sig: Take 1 capsule by mouth three times a day as needed. RX INSTRUCTIONS: Patient aware RX will be sent to pharmacy. Call pt with message Latricia Stark Lpn documented [facility] encounter[facility]03-[facility] History of Present illness Narrative* Jaylin Combs PA-C - 10/04/2023 9:45 AM EDT Chief Complaint Patient presents with: Cough: Drainage, fatigue & occasional headache X 1.5 wks HPI Nora Camarillo is a 73 year old female who presents here today for Above Complaints.. Patient was seen last month for bronchitis. Was on antibiotic and steroid which did seem to help. However shortly after finishing the medication, symptoms started to return. Reports main symptom currently is sinus drainage in the back of her throat that is causing her to cough. No shortness of breath or chest pain. Past medical history, appointments, medications, allergies reviewed. Previous Medical History PAST MEDICAL HISTORY Diagnosis Date Abnormal computed tomography angiography (CTA) 01/03/2019 right upper ICA with abnormality, consult to vascular 12/2018 Acute meniscal tear of left knee 04/13/2019 Advance directive discussed with patient 02/12/2022 Discussed 02/2022 Anxiety and depression 09/27/2020 Arthritis of left knee 02/19/2019 Bilateral carotid artery stenosis 01/03/2019 US: 12/2018 20-40% tatyana Chronic bilateral low back pain 01/01/2016 Seen [facility] Chronic pain of both ankles 09/27/2020 Chronic pain of left knee 09/27/2020 Chronic pain of right knee 09/30/2021 [facility]es [facility] Current use of proton pump inhibitor 08/25/2019 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 rojas Hiatal hernia 07/22/2016 Left hip pain 09/14/[address] [facility] [address] Xander Martinez Left lateral abdominal pain 02/15/2019 Mid quadrant, chronic and paroxysmal. 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 Linn Mixed hyperlipidemia 11/20/2009 Mixed incontinence 06/27/[address] Queen Obesity, Class I, BMI 30-34.9 06/15/2019 Palpitations 08/25/2019 Primary insomnia 07/22/2016 PUD (peptic ulcer disease) 03/13/2016 Hx of ulcer 2018 and two again in 10/2020. No NSAID's (aspirin held 10/2020) Senile osteoporosis 01/05/2006 Clinical Team Manager following (Dr. Dobson) Simple cyst of breast 11/2009 Left retroareolar Unspecified constipation Previous Surgical History PAST SURGICAL HISTORY Procedure Laterality Date APPENDECTOMY ARTHRS KNE SURG W/MENISCECTOMY MED/LAT W/SHVG Left 06/23/2019 Left knee medial and lateral menisectomies, medial and PF chondroplasties BREAST BIOPSY Left 2002 CARDIAC CATH 2004 COLONOSCOPY FLX DX W/COLLJ SPEC WHEN PFRMD 05/22/2019 Colonoscopy COLPOPEXY VAGINAL EXTRAPERITONEAL APPROACH 02/2013 repair of rectal and vaginal prolapse COLSC FLX W/RMVL OF TUMOR POLYP LESION SNARE TQ 01/28/2016 repeat 10 yrs EGD 10/16/2020 2 cratered gastric ulcers; Dr. Guillermo EGD TRANSORAL BIOPSY SINGLE/MULTIPLE 01/24/2007 EGD TRANSORAL BIOPSY SINGLE/MULTIPLE 01/28/2016 ESOPHAGEAL MOTILITY STUDY W/INTERP&RPT 04/29/2016 ESOPHAGOGASTRODUODENOSCOPY TRANSORAL DIAGNOSTIC 05/22/2005 EGD H-pylori negative ESOPHAGOGASTRODUODENOSCOPY TRANSORAL DIAGNOSTIC 03/02/2016 ESOPHAGOGASTRODUODENOSCOPY TRANSORAL DIAGNOSTIC 05/22/2019 EGD ESOPHAGOGASTRODUODENOSCOPY TRANSORAL DIAGNOSTIC 12/10/2020 healed ulcers; fundoplication intact; Dr. Guillermo GASTROESOPHAG REFLX TEST W/TELEMTRY PH ELTRD 03/02/2016 48 hour ph probe HERNIA REPAIR HX 1971 & 1973 herniorrhaphy, umbilical, right inguinal . PAST SURGICAL HISTORY OF 01/2005 heart catheterization PAST SURGICAL HISTORY OF 11/03/2004 left breast bx PAST SURGICAL HISTORY OF D & C, multiple PAST SURGICAL HISTORY OF Right 1990 carpal tunnel release PAST SURGICAL HISTORY OF Right arm surgery, ulnar nerve decompression X7 PAST SURGICAL HISTORY OF 05/2009 ganglion cyst removed right wrist PAST SURGICAL HISTORY OF 03/02/2016 pH probe PAST SURGICAL HISTORY OF Left 2002 carpal tunnel release PAST SURGICAL HISTORY OF 02/11/2017 laproscopic Walter Fundoplication.(Dr. Rojas [facility]) PAST SURGICAL HISTORY OF Right 12/2021 Tx of meniscus tear and Fx PAST SURGICAL HISTORY OF Left removal of foreign body in left foot. RECONSTRUCT VAGINAL WALL WITH MESH 04/2015 REMOVE CATARACT, INSERT LENS,EX 02/28/2009 Both Eyes REMV CATARACT EXTRACAP,INSERT LENS Bilateral RETROARC BLADDER SLING [id number] 09/03/2015 retroarc tension free vaginal sling TONSILLECTOMY HX 1956 TOTAL ABDOM HYSTERECTOMY 1988 VENOGRAM UNILATERAL 04/2020 groin Family History FAMILY HISTORY Problem Relation Age of Onset Heart Mother Diabetes Mother Cancer Father base of skull other (parkinsons) Father Thyroid Sister Breast Cancer Sister other (hepatitis) Sister @62yrs of age/Liver Problems Thyroid Daughter Thyroid Daughter Cervical Cancer Daughter No Ocular Disease No Family History Patient Allergies ALLERGIES Allergen Reactions Morphine GI Upset nausea Nsaids (Non-Steroid* Other: See Comments Hx of stomach ulcers Advair Diskus [Flut* Intolerance Hurts throat Bentyl [Dicyclomine* Unknown Celebrex [Celecoxib] GI Upset Dicyclomine Other: See Comments Dry mouth, blurred vision, loss of taste Estrace [Estradiol] Itching Evista [Raloxifene * Itching Macrobid [Nitrofura* Other: See Comments Hair loss Medrol [Methylpredn* Other: See Comments Dry mouth, sore throat. Mobic [Meloxicam] Intolerance Oxycontin [Oxycodon* Itching Penicillins Itching Prednisone Rash Uncertain. But did ok in 2017 Prozac [Fluoxetine * Unknown Sulfamethizole GI Upset Symax-Sl [Hyoscyami* Unknown Current Medications Current Outpatient Medications on File Prior to Visit Medication Sig VITAFUSION WOMEN GUMMY as directed. Zolpidem (AMBIEN CR) 12.5 mg CR tablet Take 1 tablet by mouth at bedtime as needed for sedation forup to 90 days. albuterol HFA (VENTOLIN HFA) 90 mcg/actuation inhaler Inhale 2 Puffs as instructed every [address] (PROTONIX) 20 mg tablet Take 1 tablet by mouth twice daily as needed. Benzonatate 200 mg capsule Take 1 capsule by mouth three times daily as needed. nystatin (NYSTOP) powder Apply 1 application to affected area three times daily. to affected area as needed budesonide (PULMICORT) 0.25 mg/2 mL nebulizer solution USE 2 ML VIA NEBULIZER TWICE DAILY. DX: MILDPERSISTENT ASTHMA J45.21 dextromethorphan-guaiFENesin (MUCINEX DM) 30-600 mg per tablet Take 1 tablet by mouth two times a day. (Patient not taking: Reported on 10/04/2023) No current facility-administered medications on file prior to visit. Social History Social History Tobacco Use Smoking status: Never Passive exposure: Never Smokeless tobacco: Never Tobacco comments: Father smoked occasionally in childhood home. Spouse smoked in home until 4 years ago. Vaping Use Vaping Use: Never used Substance Use Topics Alcohol use: No Drug use: No Review of Symptoms REVIEW OF SYSTEMS See hpi EXAM: BP 136/84 (BP Site: Left Arm, BP Position: Sitting, BP Cuff Size: Large Adult) Pulse 69 Temp 36.7 C (98 F) Resp 18 Wt 85.7 kg (189 lb) SpO2 95% BMI 33.48 kg/m General Appearance: Well appearing, alert, in no acute distress, well-hydrated, well nourished.. Eyes: Anicteric sclera. Pupils are equally round and reactive to light. Extraocular movements are intact. . Ears: External ears normal, canals clear, TMs pearly cooley. Nose/Sinuses: Nares normal, septum midline, mucosa normal, no drainage or sinus tenderness. Oropharynx: Lips, mucosa, and tongue normal, teeth and gums normal, oropharynx normal. Neck: Supple, no adenopathy; thyroid symmetric, normal size, no bruits. Lungs: Lungs clear to auscultation. No wheezing, rhonchi, rales.. Heart: RRR without murmur, gallop, or rubs. No ectopy. Health Maintenance List DTaP,Tdap,Td Vaccine(1 - Tdap) Never done RSV Vaccine(1 - 1-dose 60+ series) Never done Advance Directive Discussion due on 07/12/2023 Covid-19 Vaccine(2022- season) due on 09/03/2024 Mammogram Screening due on 07/16/2024 Annual PCP Team Chronic Disease Visit due on 09/06/2024 Diabetes Screening due on 09/02/2026 Lipid Screening due on 09/02/2028 Colorectal Cancer Screening due on 05/22/2029 Bone Density Screening Completed Spirometry Completed Hepatitis C Screening Completed Shingrix Vaccine Completed Pneumococcal Vaccine: 65+ Completed Influenza Vaccine Discontinued Data reviewed ASSESSMENT/PLAN: 1. Post-nasal drip - ICD9: 784.91, ICD10: R09.82 (primary diagnosis) Trial antihistamine. Suggest saline spray and/or rinse. Follow up if not improving. 2. Primary insomnia - ICD9: 307.42, ICD10: F51.01 Refill given. - ZOLPIDEM ER 12.5 MG TABLET,EXTENDED RELEASE,MULTIPHASE Jaylin Combs PA-C [facility] History of Present illness Narrative* Talya May APRN.CNP - 10/01/2023 3:26 PM EDT Pheresis Nurse offered: Patient declines. Melendez is a 73 year old who presents for an annual gynecologic exam with complaints, strong urine odor . Postmenopausal: Yes HRT use: Yes, vaginal estrace Last Pap: 11/24/2005 normal HPV: N/A History of abnormal pap: No Last mammogram: 2023 normal History of abnormal mammogram: No Sexually active: No OB History T3 L3 SAB0 IAB0 Ectopic0 Multiple0 Live Births0 Clinical Team Manager History LMP: Hysterectomy Age at Menarche: Age at First : Age at Menopause: Clinical Team Manager History Comments: Sexual Activity: Yes; Male; Pt has had a Hysterectomy Contraception: Surgical PAST MEDICAL HISTORY Diagnosis Date Abnormal computed tomography angiography (CTA) 01/03/2019 right upper ICA with abnormality, consult to vascular 12/2018 Acute meniscal tear of left knee 04/13/2019 Advance directive discussed with patient 02/12/2022 Discussed 02/2022 Anxiety and depression 09/27/2020 Arthritis of left knee 02/19/2019 Bilateral carotid artery stenosis 01/03/2019 US: 12/2018 20-40% tatyana Chronic bilateral low back pain 01/01/2016 Seen [facility] Chronic pain of both ankles 09/27/2020 Chronic pain of left knee 09/27/2020 Chronic pain of right knee 09/30/2021 [facility]es [facility] Current use of proton pump inhibitor 08/25/2019 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 rojas Hiatal hernia 07/22/2016 Left hip pain 09/14/[address] [facility] [address] Xander Martinez Left lateral abdominal pain 02/15/2019 Mid quadrant, chronic and paroxysmal. 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 Linn Mixed hyperlipidemia 11/20/2009 Mixed incontinence 06/27/[address] Queen Obesity, Class I, BMI 30-34.9 06/15/2019 Palpitations 08/25/2019 Primary insomnia 07/22/2016 PUD (peptic ulcer disease) 03/13/2016 Hx of ulcer 2018 and two again in 10/2020. No NSAID's (aspirin held 10/2020) Senile osteoporosis 01/05/2006 Clinical Team Manager following (Dr. Dobson) Simple cyst of breast 11/2009 Left retroareolar Unspecified constipation PAST SURGICAL HISTORY Procedure Laterality Date APPENDECTOMY ARTHRS KNE SURG W/MENISCECTOMY MED/LAT W/SHVG Left 06/23/2019 Left knee medial and lateral menisectomies, medial and PF chondroplasties BREAST BIOPSY Left 2002 CARDIAC CATH 2003 COLONOSCOPY FLX DX W/COLLJ SPEC WHEN PFRMD 05/22/2019 Colonoscopy COLPOPEXY VAGINAL EXTRAPERITONEAL APPROACH 02/2013 repair of rectal and vaginal prolapse COLSC FLX W/RMVL OF TUMOR POLYP LESION SNARE TQ 01/28/2016 repeat 10 yrs EGD 10/16/2020 2 cratered gastric ulcers; Dr. Guillermo EGD TRANSORAL BIOPSY SINGLE/MULTIPLE 01/24/2007 EGD TRANSORAL BIOPSY SINGLE/MULTIPLE 01/28/2016 ESOPHAGEAL MOTILITY STUDY W/INTERP&RPT 04/29/2016 ESOPHAGOGASTRODUODENOSCOPY TRANSORAL DIAGNOSTIC 05/22/2005 EGD H-pylori negative ESOPHAGOGASTRODUODENOSCOPY TRANSORAL DIAGNOSTIC 03/02/2016 ESOPHAGOGASTRODUODENOSCOPY TRANSORAL DIAGNOSTIC 05/22/2019 EGD ESOPHAGOGASTRODUODENOSCOPY TRANSORAL DIAGNOSTIC 12/10/2020 healed ulcers; fundoplication intact; Dr. Guillermo GASTROESOPHAG REFLX TEST W/TELEMTRY PH ELTRD 03/02/2016 48 hour ph probe HERNIA REPAIR HX 1971 & 1973 herniorrhaphy, umbilical, right inguinal . PAST SURGICAL HISTORY OF 01/2005 heart catheterization PAST SURGICAL HISTORY OF 11/03/2004 left breast bx PAST SURGICAL HISTORY OF D & C, multiple PAST SURGICAL HISTORY OF Right 1990 carpal tunnel release PAST SURGICAL HISTORY OF Right arm surgery, ulnar nerve decompression X7 PAST SURGICAL HISTORY OF 05/2009 ganglion cyst removed right wrist PAST SURGICAL HISTORY OF 03/02/2016 pH probe PAST SURGICAL HISTORY OF Left 2002 carpal tunnel release PAST SURGICAL HISTORY OF 02/11/2017 laproscopic Walter Fundoplication.(Dr. Ro[facility]) PAST SURGICAL HISTORY OF Right 12/2021 Tx of meniscus tear and Fx PAST SURGICAL HISTORY OF Left removal of foreign body in left foot. RECONSTRUCT VAGINAL WALL WITH MESH 04/2015 REMOVE CATARACT, INSERT LENS,EX 02/28/2009 Both Eyes REMV CATARACT EXTRACAP,INSERT LENS Bilateral RETROARC BLADDER SLING [id number] 09/03/2015 retroarc tension free vaginal sling TONSILLECTOMY HX 1955 TOTAL ABDOM HYSTERECTOMY 1989 VENOGRAM UNILATERAL 04/2020 groin FAMILY HISTORY Problem Relation Age of Onset Heart Mother Diabetes Mother Cancer Father base of skull other (parkinsons) Father Thyroid Sister Breast Cancer Sister other (hepatitis) Sister @62yrs of age/Liver Problems Thyroid Daughter Thyroid Daughter Cervical Cancer Daughter No Ocular Disease No Family History SOCIAL HISTORY Social History Tobacco Use Smoking status: Never Passive exposure: Never Smokeless tobacco: Never Tobacco comments: Father smoked occasionally in childhood home. Spouse smoked in home until 4 years ago. Vaping Use Vaping Use: Never used Substance Use Topics Alcohol use: No Drug use: No REVIEW OF SYSTEMS Abdomen: No abdominal pain, nausea, vomiting, diarrhea, or constipation. No bloating, early satiety, indigestion, or increased flatulence. Bladder: No dysuria, gross hematuria, urinary frequency, urinary urgency, or incontinence +strong odor Breast: No breast lumps, nipple d/c, overlying skin changes, redness or skin retraction Allergies and current medication updated:Yes EXAM: Ht 5' 3 (1.60m) Wt 187 lb 3.2 oz (84.9kg) BMI 33.17 kg/(m^2). GENERAL: pleasant, female in no apparent distress HEENT: Normocephalic, atraumatic, mucus membranes moist, and no lesions NECK: Supple, full range of motion, no adenopathy, and thyroid normal DERMATOLOGY: Normal, without lesions, non-icteric, and non-hirsute BREAST: soft, non-tender, symmetric, no dominant mass, normal nipple-areolar complex, no lymphadenopathy, and no nipple discharge CHEST: Normal inspiratory effort ABDOMEN: soft, non-tender, and no masses PELVIC: external genitalia normal, normal Bartholin's glands, urethra, Duque's glands, no vulvar lesions, physiologic discharge present, normal appearing perineal body and perianal region, cervix surgically absent BIMANUAL: no adnexal masses, non-tender, and uterus surgically absent RECTOVAGINAL: deferred. NEURO: alert and oriented x3,exam grossly non-focal EXTREMITIES: normal ASSESSMENT/PLAN: 1) Health maintenance: Pap/HPV screening no longer needed Mammogram ordered Mammogram up to date Nutrition, exercise and routine health maintenance exams reviewed. Calcium/Vitamin D supplementation information provided. Colon cancer screening: up to date with screening BMD: up to date 2) Follow up one year or sooner as needed Vaginal estrogen cream sent to [facility] pharmacy. Talya May APRN.ECHOCARDIOGRAPHER documented [facility] Miscellaneous Notes* Telephone Encounter - Ann Flood RN - 09/07/2023 9:20 AM EST Patient notified of results and provider's instructions. Patient verbalizes understanding. Ann Flood RN * Telephone Encounter - Qasim Patterson LPN - 09/07/2023 9:08 AM EST Left message for pt to contact office. Qasim Patterson LPN * Telephone Encounter - Qasim Patterson LPN - 09/07/2023 9:05 AM EST ----- Message from Jaylin Combs PA-C sent at 09/07/2023 7:25 AM EST ----- CXR negative for pneumonia. Continue as we discussed. documented in this encounterWood [facility]02-[facility] History of Present illness Narrative* Katina Leung RT(R) - 09/06/2023 12:00 PM EST Radiology Service Progress Note PATIENT NAME: Nora Camarillo DATE OF SERVICE: September 06, 2023 TIME: 11:57 AM PATIENT IDENTITY VERIFICATION COMPLETED USING TWO (2) IDENTIFIERS: Name and Date of confirmedby patient verbally. FALL SCREENING: Has the patient had 2 falls in the last year or 1 fall with injury or currently using an Ambulatory Assistive Device (Walker, Cane, Wheelchair, Crutches, etc.)? No PATIENT GENDER DATA: Female. status: : No status: NO. PATIENT RELEVANT IMPLANT DATA REVIEWED: Not Applicable PATIENT PRESENTS WITH AN IMPLANTABLE OR ATTACHED RUG DRY ROOM ATTENDANT: No RADIOLOGY DEPARTMENT: General X-ray: Exam(s) Completed: Chest X-Ray PERIPHERAL IV DATA: Not applicable SIGNED BY: RT Lani(R) September 06, 2023 11:57 AM documented in this encounterWood [facility]02-26-[facility]24 History of Present illness Narrative* Jaylin Combs PA-C - 09/06/2023 11:39 AM EST Chief Complaint Patient presents with: Chest Congestion HPI Nora Camarillo is a 73 year old female who presents here today for Above Complaints.. Patient was seen on 09/03 for routine visit and at that time she 1 day of sinus congestion. Covid/flu negative. Since then symptoms have worsened and seem to have settled in chest. Having wheezing and cough. Shortness of breath. Using inhaler. Productive with thick yellow mucus. Denies fevers but feeling chills. Lack of appetite. Past medical history, appointments, medications, allergies reviewed. Previous Medical History PAST MEDICAL HISTORY Diagnosis Date Abnormal computed tomography angiography (CTA) 01/03/2019 right upper ICA with abnormality, consult to vascular 12/2018 Acute meniscal tear of left knee 04/13/2019 Advance directive discussed with patient 02/12/2022 Discussed 02/2022 Anxiety and depression 09/27/2020 Arthritis of left knee 02/19/2019 Bilateral carotid artery stenosis 01/03/2019 US: 12/2018 20-40% tatyana Chronic bilateral low back pain 01/01/2016 Seen [facility] Chronic pain of both ankles 09/27/2020 Chronic pain of left knee 09/27/2020 Chronic pain of right knee 09/30/2021 [facility]es [facility] Current use of proton pump inhibitor 08/25/2019 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 rojas Hiatal hernia 07/22/2016 Left hip pain 09/14/[address] [facility] [address] Xander Martinez Left lateral abdominal pain 02/15/2019 Mid quadrant, chronic and paroxysmal. 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 Linn Mixed hyperlipidemia 11/20/2009 Mixed incontinence 06/27/[address] Queen Obesity, Class I, BMI 30-34.9 06/15/2019 Palpitations 08/25/2019 Primary insomnia 07/22/2016 PUD (peptic ulcer disease) 03/13/2016 Hx of ulcer 2018 and two again in 10/2020. No NSAID's (aspirin held 10/2020) Senile osteoporosis 01/05/2006 Clinical Team Manager following (Dr. Dobson) Simple cyst of breast 11/2009 Left retroareolar Unspecified constipation Previous Surgical History PAST SURGICAL HISTORY Procedure Laterality Date APPENDECTOMY ARTHRS KNE SURG W/MENISCECTOMY MED/LAT W/SHVG Left 06/23/2019 Left knee medial and lateral menisectomies, medial and PF chondroplasties BREAST BIOPSY Left 2002 CARDIAC CATH 2003 COLONOSCOPY FLX DX W/COLLJ SPEC WHEN PFRMD 05/22/2019 Colonoscopy COLPOPEXY VAGINAL EXTRAPERITONEAL APPROACH 02/2013 repair of rectal and vaginal prolapse COLSC FLX W/RMVL OF TUMOR POLYP LESION SNARE TQ 01/28/2016 repeat 10 yrs EGD 10/16/2020 2 cratered gastric ulcers; Dr. Guillermo EGD TRANSORAL BIOPSY SINGLE/MULTIPLE 01/24/2007 EGD TRANSORAL BIOPSY SINGLE/MULTIPLE 01/28/2016 ESOPHAGEAL MOTILITY STUDY W/INTERP&RPT 04/29/2016 ESOPHAGOGASTRODUODENOSCOPY TRANSORAL DIAGNOSTIC 05/22/2005 EGD H-pylori negative ESOPHAGOGASTRODUODENOSCOPY TRANSORAL DIAGNOSTIC 03/02/2016 ESOPHAGOGASTRODUODENOSCOPY TRANSORAL DIAGNOSTIC 05/22/2019 EGD ESOPHAGOGASTRODUODENOSCOPY TRANSORAL DIAGNOSTIC 12/10/2020 healed ulcers; fundoplication intact; Dr. Guillermo GASTROESOPHAG REFLX TEST W/TELEMTRY PH ELTRD 03/02/2016 48 hour ph probe HERNIA REPAIR HX 1971 & 1973 herniorrhaphy, umbilical, right inguinal . PAST SURGICAL HISTORY OF 01/2005 heart catheterization PAST SURGICAL HISTORY OF 11/03/2004 left breast bx PAST SURGICAL HISTORY OF D & C, multiple PAST SURGICAL HISTORY OF Right 1990 carpal tunnel release PAST SURGICAL HISTORY OF Right arm surgery, ulnar nerve decompression X7 PAST SURGICAL HISTORY OF 05/2009 ganglion cyst removed right wrist PAST SURGICAL HISTORY OF 03/02/2016 pH probe PAST SURGICAL HISTORY OF Left 2002 carpal tunnel release PAST SURGICAL HISTORY OF 02/11/2017 laproscopic Walter Fundoplication.(Dr. Rojas [facility]) PAST SURGICAL HISTORY OF Right 12/2021 Tx of meniscus tear and Fx RECONSTRUCT VAGINAL WALL WITH MESH 04/2015 REMOVE CATARACT, INSERT LENS,EX 02/28/2009 Both Eyes REMV CATARACT EXTRACAP,INSERT LENS Bilateral RETROARC BLADDER SLING [id number] 09/03/2015 retroarc tension free vaginal sling TONSILLECTOMY HX 1956 TOTAL ABDOM HYSTERECTOMY 1989 VENOGRAM UNILATERAL 04/2020 groin Family History FAMILY HISTORY Problem Relation Age of Onset Heart Mother Diabetes Mother Cancer Father base of skull other (parkinsons) Father Thyroid Sister Breast Cancer Sister other (hepatitis) Sister @62yrs of age/Liver Problems Thyroid Daughter Thyroid Daughter Cervical Cancer Daughter No Ocular Disease No Family History Patient Allergies ALLERGIES Allergen Reactions Morphine GI Upset nausea Nsaids (Non-Steroid* Other: See Comments Hx of stomach ulcers Advair Diskus [Flut* Intolerance Hurts throat Bentyl [Dicyclomine* Unknown Celebrex [Celecoxib] GI Upset Dicyclomine Other: See Comments Dry mouth, blurred vision, loss of taste Estrace [Estradiol] Itching Evista [Raloxifene * Itching Macrobid [Nitrofura* Other: See Comments Hair loss Medrol [Methylpredn* Other: See Comments Dry mouth, sore throat. Mobic [Meloxicam] Intolerance Oxycontin [Oxycodon* Itching Penicillins Itching Prednisone Rash Uncertain. But did ok in 2017 Prozac [Fluoxetine * Unknown Sulfamethizole GI Upset Symax-Sl [Hyoscyami* Unknown Current Medications Current Outpatient Medications on File Prior to Visit Medication Sig dextromethorphan-guaiFENesin (MUCINEX DM) 30-600 mg per tablet Take 1 tablet by mouth two times a day. VITAFUSION WOMEN GUMMY as directed. Zolpidem (AMBIEN CR) 12.5 mg CR tablet Take 1 tablet by mouth at bedtime as needed for sedation forup to 90 days. albuterol HFA (VENTOLIN HFA) 90 mcg/actuation inhaler Inhale 2 Puffs as instructed every [address] (PROTONIX) 20 mg tablet Take 1 tablet by mouth twice daily as needed. Benzonatate 200 mg capsule Take 1 capsule by mouth three times daily as needed. nystatin (NYSTOP) powder Apply 1 application to affected area three times daily. to affected area as needed budesonide (PULMICORT) 0.25 mg/2 mL nebulizer solution USE 2 ML VIA NEBULIZER TWICE DAILY. DX: MILDPERSISTENT ASTHMA J45.21 montelukast (SINGULAIR) 10 mg tablet Take 1 tablet by mouth daily at bedtime. (Patient not taking: Reported on 09/03/2023) No current facility-administered medications on file prior to visit. Social History Social History Tobacco Use Smoking status: Never Smokeless tobacco: Never Tobacco comments: Father smoked occasionally in childhood home. Spouse smoked in home until 4 years ago. Vaping Use Vaping Use: Never used Substance Use Topics Alcohol use: No Drug use: No Review of Symptoms REVIEW OF SYSTEMS See hp i EXAM: BP 110/76 (BP Site: Left Arm, BP Position: Sitting, BP Cuff Size: Large Adult) Pulse 95 Temp 36.6 C (97.9 F) Resp 22 Wt 84.8 kg (187 lb) SpO2 93% BMI 32.02 kg/m General Appearance: Well appearing, alert, in no acute distress, well-hydrated, well nourished.. Lungs: scattered wheezing in all lung [place]. . Heart: RRR without murmur, gallop, or rubs. No ectopy. Health Maintenance List DTaP,Tdap,Td Vaccine(1 - Tdap) Never done RSV Vaccine(1 - 1-dose 60+ series) Never done Advance Directive Discussion due on 07/12/2023 Covid-19 Vaccine( season) due on 09/03/2024 Mammogram Screening due on 07/16/2024 Annual PCP Team Chronic Disease Visit due on 09/03/2024 Diabetes Screening due on 09/02/2026 Lipid Screening due on 09/02/2028 Colorectal Cancer Screening due on 05/22/2029 Bone Density Screening Completed Spirometry Completed Hepatitis C Screening Completed Shingrix Vaccine Completed Pneumococcal Vaccine: 65+ Completed Influenza Vaccine Discontinued Data reviewed ASSESSMENT/PLAN: 1. Bronchitis - ICD9: 490, ICD10: J40 (primary diagnosis) Start atb and prednisone. Check xray. Continue albuterol. Start home nebulizer treatments. - XR CHEST 2V FRONTAL/LAT 2. Moderate persistent asthma with (acute) exacerbation - ICD9: 493.92, ICD10: J45.41 See above Jaylin Combs PA-C documented in [facility] encounter[facility]02-[facility]24 Instructions* Patient Instructions* Jaylin Combs PA-C - 09/03/2023 11:38 AM EST Take Vit D 2000 international unit(s) daily. Repeat labs in about 2-3 months. Otherwise follow up in 6 months. documented in this encounter[facility]02-[facility] History of Present illness Narrative* Jaylin Combs PA-C - 09/03/2023 11:35 AM EST Chief Complaint Patient presents with: Follow Up 6 Month Exam HPI Nora Camarillo is a 73 year old female who presents here today for Chronic Medical Conditions.. Patient with hx of anxiety/depression, obesity, osteoporosis, elevated glucose, GERD, carotid stenosis, asthma, hyperlipidemia, insomnia, and those as below. Patient having URI symptoms that started yesterday. +sinus congestion, cough, No fever. Past medical history, appointments, medications, allergies reviewed. Previous Medical History PAST MEDICAL HISTORY Diagnosis Date Abnormal computed tomography angiography (CTA) 01/03/2019 right upper ICA with abnormality, consult to vascular 12/2018 Acute meniscal tear of left knee 04/13/2019 Advance directive discussed with patient 02/12/2022 Discussed 02/2022 Anxiety and depression 09/27/2020 Arthritis of left knee 02/19/2019 Bilateral carotid artery stenosis 01/03/2019 US: 12/2018 20-40% tatyana Chronic bilateral low back pain 01/01/2016 Seen [facility] Chronic pain of both ankles 09/27/2020 Chronic pain of left knee 09/27/2020 Chronic pain of right knee 09/30/2021 [facility]es [facility] Current use of proton pump inhibitor 08/25/2019 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 rojas Hiatal hernia 07/22/2016 Left hip pain 09/14/[address] [facility] [address] Xander Martinez Left lateral abdominal pain 02/15/2019 Mid quadrant, chronic and paroxysmal. 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 Linn Mixed hyperlipidemia 11/20/2009 Mixed incontinence 06/27/[address] Queen Obesity, Class I, BMI 30-34.9 06/15/2019 Palpitations 08/25/2019 Primary insomnia 07/22/2016 PUD (peptic ulcer disease) 03/13/2016 Hx of ulcer 2018 and two again in 10/2020. No NSAID's (aspirin held 10/2020) Senile osteoporosis 01/05/2006 Clinical Team Manager following (Dr. Dobson) Simple cyst of breast 11/2009 Left retroareolar Unspecified constipation Previous Surgical History PAST SURGICAL HISTORY Procedure Laterality Date APPENDECTOMY ARTHRS KNE SURG W/MENISCECTOMY MED/LAT W/SHVG Left 06/23/2019 Left knee medial and lateral menisectomies, medial and PF chondroplasties BREAST BIOPSY Left 2002 CARDIAC CATH 2003 COLONOSCOPY FLX DX W/COLLJ SPEC WHEN PFRMD 05/22/2019 Colonoscopy COLPOPEXY VAGINAL EXTRAPERITONEAL APPROACH 02/2013 repair of rectal and vaginal prolapse COLSC FLX W/RMVL OF TUMOR POLYP LESION SNARE TQ 01/28/2016 repeat 10 yrs EGD 10/16/2020 2 cratered gastric ulcers; Dr. Guillermo EGD TRANSORAL BIOPSY SINGLE/MULTIPLE 01/24/2007 EGD TRANSORAL BIOPSY SINGLE/MULTIPLE 01/28/2016 ESOPHAGEAL MOTILITY STUDY W/INTERP&RPT 04/29/2016 ESOPHAGOGASTRODUODENOSCOPY TRANSORAL DIAGNOSTIC 05/22/2005 EGD H-pylori negative ESOPHAGOGASTRODUODENOSCOPY TRANSORAL DIAGNOSTIC 03/02/2016 ESOPHAGOGASTRODUODENOSCOPY TRANSORAL DIAGNOSTIC 05/22/2019 EGD ESOPHAGOGASTRODUODENOSCOPY TRANSORAL DIAGNOSTIC 12/10/2020 healed ulcers; fundoplication intact; Dr. Guillermo GASTROESOPHAG REFLX TEST W/TELEMTRY PH ELTRD 03/02/2016 48 hour ph probe HERNIA REPAIR HX 1970 & 1972 herniorrhaphy, umbilical, right inguinal . PAST SURGICAL HISTORY OF 01/2005 heart catheterization PAST SURGICAL HISTORY OF 11/03/2004 left breast bx PAST SURGICAL HISTORY OF D & C, multiple PAST SURGICAL HISTORY OF Right 1990 carpal tunnel release PAST SURGICAL HISTORY OF Right arm surgery, ulnar nerve decompression X7 PAST SURGICAL HISTORY OF 05/2009 ganglion cyst removed right wrist PAST SURGICAL HISTORY OF 03/02/2016 pH probe PAST SURGICAL HISTORY OF Left 2002 carpal tunnel release PAST SURGICAL HISTORY OF 02/11/2017 laproscopic Walter Fundoplication.(Dr. Rojas [facility]) PAST SURGICAL HISTORY OF Right 12/2021 Tx of meniscus tear and Fx RECONSTRUCT VAGINAL WALL WITH MESH 04/2015 REMOVE CATARACT, INSERT LENS,EX 02/28/2009 Both Eyes REMV CATARACT EXTRACAP,INSERT LENS Bilateral RETROARC BLADDER SLING [id number] 09/03/2015 retroarc tension free vaginal sling TONSILLECTOMY HX 1955 TOTAL ABDOM HYSTERECTOMY 1988 VENOGRAM UNILATERAL 04/2020 groin Family History FAMILY HISTORY Problem Relation Age of Onset Heart Mother Diabetes Mother Cancer Father base of skull other (parkinsons) Father Thyroid Sister Breast Cancer Sister other (hepatitis) Sister @62yrs of age/Liver Problems Thyroid Daughter Thyroid Daughter Cervical Cancer Daughter No Ocular Disease No Family History Patient Allergies ALLERGIES Allergen Reactions Morphine GI Upset nausea Nsaids (Non-Steroid* Other: See Comments Hx of stomach ulcers Advair Diskus [Flut* Intolerance Hurts throat Bentyl [Dicyclomine* Unknown Celebrex [Celecoxib] GI Upset Dicyclomine Other: See Comments Dry mouth, blurred vision, loss of taste Estrace [Estradiol] Itching Evista [Raloxifene * Itching Macrobid [Nitrofura* Other: See Comments Hair loss Medrol [Methylpredn* Other: See Comments Dry mouth, sore throat. Mobic [Meloxicam] Intolerance Oxycontin [Oxycodon* Itching Penicillins Itching Prednisone Rash Uncertain. But did ok in 2017 Prozac [Fluoxetine * Unknown Sulfamethizole GI Upset Symax-Sl [Hyoscyami* Unknown Current Medications Current Outpatient Medications on File Prior to Visit Medication Sig VITAFUSION WOMEN GUMMY as directed. Zolpidem (AMBIEN CR) 12.5 mg CR tablet Take 1 tablet by mouth at bedtime as needed for sedation forup to 90 days. albuterol HFA (VENTOLIN HFA) 90 mcg/actuation inhaler Inhale 2 Puffs as instructed every [address] (PROTONIX) 20 mg tablet Take 1 tablet by mouth twice daily as needed. Benzonatate 200 mg capsule Take 1 capsule by mouth three times daily as needed. nystatin (NYSTOP) powder Apply 1 application to affected area three times daily. to affected area as needed budesonide (PULMICORT) 0.25 mg/2 mL nebulizer solution USE 2 ML VIA NEBULIZER TWICE DAILY. DX: MILDPERSISTENT ASTHMA J45.21 alendronate (FOSAMAX) 70 mg tablet Take 1 tablet by mouth one time a week. Take with a full glass of water, on an empty stomach; do NOT lie down for 30minutes. (Patient not taking: Reported on 09/03/2023) montelukast (SINGULAIR) 10 mg tablet Take 1 tablet by mouth daily at bedtime. (Patient not taking: Reported on 09/03/2023) No current facility-administered medications on file prior to visit. Social History Social History Tobacco Use Smoking status: Never Smokeless tobacco: Never Tobacco comments: Father smoked occasionally in childhood home. Spouse smoked in home until 4 years ago. Vaping Use Vaping Use: Never used Substance Use Topics Alcohol use: No Drug use: No Review of Symptoms REVIEW OF SYSTEMS GENERAL: No weight loss, malaise or fevers NECK: Negative for lumps, goiter, pain and significant neck swelling RESPIRATORY: Negative for cough, hemoptysis, wheezing, COPD, dyspnea or shortness of breath CARDIOVASCULAR: Negative for chest pain, leg swelling, hypertension, CHF or palpitations NEURO: No history of headaches, syncope, paralysis, seizures or tremors EXAM: BP 138/70 (BP Site: Right Arm, BP Position: Sitting, BP Cuff Size: Large Adult) Pulse 95 Temp 37.1 C (98.7 F) Resp 20 Wt 85.7 kg (189 lb) SpO2 96% BMI 32.37 kg/m General Appearance: Well appearing, alert, in no acute distress, well-hydrated, well nourished.. Eyes: Anicteric sclera. Pupils are equally round and reactive to light. Extraocular movements are intact. . Ears: External ears normal, canals clear, TMs pearly cooley. Nose/Sinuses: Nares normal, septum midline, mucosa normal, no drainage or sinus tenderness. Oropharynx: Lips, mucosa, and tongue normal, teeth and gums normal, oropharynx normal. Neck: Supple, no adenopathy; thyroid symmetric, normal size, no bruits. Lungs: Lungs clear to auscultation. No wheezing, rhonchi, rales.. Heart: RRR without murmur, gallop, or rubs. No ectopy. Extremities: No deformities, edema, skin discoloration, clubbing or cyanosis. Good capillary refill. . Peripheral Pulses: Normal. Health Maintenance List DTaP,Tdap,Td Vaccine(1 - Tdap) Never done RSV Vaccine(1 - 1-dose 60+ series) Never done Advance Directive Discussion due on 07/12/2023 Covid-19 Vaccine(2022- season) due on 09/03/2024 Annual PCP Team Chronic Disease Visit due on 04/06/2024 Mammogram Screening due on 07/16/2024 Diabetes Screening due on 09/02/2026 Lipid Screening due on 09/02/2028 Colorectal Cancer Screening due on 05/22/2029 Bone Density Screening Completed Spirometry Completed Hepatitis C Screening Completed Shingrix Vaccine Completed Pneumococcal Vaccine: 65+ Completed Influenza Vaccine Discontinued Data reviewed Component Latest Ref Rng & Units 09/02/2023 Glucose 74 - 99 mg/dL 91 BUN 7 - 21 mg/dL 12 Creatinine 0.58 - 0.96 mg/dL 0.77 Sodium 136 - 144 mmol/L 140 Potassium 3.7 - 5.1 mmol/L 4.7 Chloride 97 - 105 mmol/L 104 CO2 22 - 30 mmol/L 26 Anion Gap 9 - 18 mmol/L 10 Calcium 8.5 - 10.2 mg/dL 8.9 eGFR >=60 mL/min/1.73m 82 Total Cholesterol, Nonfasting <200 mg/dL 198 Triglycerides, Nonfasting <150 mg/dL 107 HDL Cholesterol, Nonfasting >39 mg/dL 64 LDL Cholesterol, Nonfasting <100 mg/dL 113 (H) Non HDL Cholesterol, Nonfasting <130 mg/dL 134 (H) VLDL Cholesterol, Nonfasting <30 mg/dL 21 Total Chol/HDL Ratio, Nonfasting <5.10 mg/dL 3.09 LDL/HDL Ratio, Nonfasting <2.54 mg/dL 1.77 Hemoglobin A1C 4.3 - 5.6 % 5.3 Estimated Average Glucose mg/dL 105 Vitamin D 25 Hydroxy 31.0 - 80.0 ng/mL 22.1 (L) ASSESSMENT/PLAN: 1. Mixed hyperlipidemia - ICD9: 272.2, ICD10: E78.2 (primary diagnosis) - Controlled - Continue current medications - Counseled on healthy diet and regular exercise - LIPID PANEL, NONFASTING 2. URI, acute - ICD9: 465.9, ICD10: J06.9 - Discussed viral etiology and rationale for treatment. - Symptomatic treatment with prn analgesia - Supportive care with fluids and rest - check Covid/flu today - COVID & INFLUENZA A/B NAAT, ROUTINE 3. Age-related osteoporosis without current pathological fracture - ICD9: 733.01, ICD10: M81.0 - Reviewed the need for Calcium and Vitamin D supplements and weight bearing exercise as tolerated Patient declines treatment 4. Vitamin D deficiency - ICD9: 268.9, ICD10: E55.9 Increase vit D supplement. Recheck in 2-3 months - VITAMIN D 25 HYDROXY 5. Elevated fasting blood sugar - ICD9: 790.21, ICD10: R73.01 stable - HGB A1C - COMP METABOLIC PANEL 6. Gastroesophageal reflux disease with esophagitis without hemorrhage - ICD9: 530.81, 530.10, ICD10: K21.00 Patient advised to take the protonix BID 7. Mild persistent asthma without complication - ICD9: 493.90, ICD10: J45.30 stable 8. Primary insomnia - ICD9: 307.42, ICD10: F51.01 stable 9. Essential tremor - ICD9: 333.1, ICD10: G25.0 stable 10. Senile osteoporosis - ICD9: 733.01, ICD10: M81.0 See above. Patient didn't start fosamax and denies treatment. Jaylin Combs PA-C documented [facility]12[facility] History of Present illness Narrative* Sharee Hernandez - 06/21/2023 9:42 AM EST Pending mammo documented in this encounterWood [facility]09-26-[facility] History of Present illness Narrative* Jaylin Combs PA-C - 04/06/2023 9:43 AM EDT Chief Complaint Patient presents with: Discussion: Bone density results Alos cough x 1 month HPI Nora Camarillo is a 73 year old female who presents here today for Above Complaints.. Patient here to discuss recent bone density results. See below. Also c/o chronic cough. On and off for years. States that the cough is more from a post nasal drainage. She has tried OTC antihistamines and flonase without benefit. No fevers. Past medical history, appointments, medications, allergies reviewed. Previous Medical History PAST MEDICAL HISTORY Diagnosis Date Abnormal computed tomography angiography (CTA) 01/03/2019 right upper ICA with abnormality, consult to vascular 12/2018 Acute meniscal tear of left knee 04/13/2019 Advance directive discussed with patient 02/12/2022 Discussed 02/2022 Anxiety and depression 09/27/2020 Arthritis of left knee 02/19/2019 Bilateral carotid artery stenosis 01/03/2019 US: 12/2018 20-40% tatyana Chronic bilateral low back pain 01/01/2016 Seen [facility] Chronic pain of both ankles 09/27/2020 Chronic pain of left knee 09/27/2020 Chronic pain of right knee 09/30/2021 Sees [facility] Current use of proton pump inhibitor 08/25/2019 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 rojas Hiatal hernia 07/22/2016 Left hip pain 09/14/[address] [facility] [address] Xander Martinez Left lateral abdominal pain 02/15/2019 Mid quadrant, chronic and paroxysmal. 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 Linn Mixed hyperlipidemia 11/20/2009 Mixed incontinence 06/27/[address] Queen Obesity, Class I, BMI 30-34.9 06/15/2019 Palpitations 08/25/2019 Primary insomnia 07/22/2016 PUD (peptic ulcer disease) 03/13/2016 Hx of ulcer 2018 and two again in 10/2020. No NSAID's (aspirin held 10/2020) Senile osteoporosis 01/05/2006 Clinical Team Manager following (Dr. Dobson) Simple cyst of breast 11/2009 Left retroareolar Unspecified constipation Previous Surgical History PAST SURGICAL HISTORY Procedure Laterality Date APPENDECTOMY ARTHRS KNE SURG W/MENISCECTOMY MED/LAT W/SHVG Left 06/23/2019 Left knee medial and lateral menisectomies, medial and PF chondroplasties BREAST BIOPSY Left 2002 CARDIAC CATH 2004 COLONOSCOPY FLX DX W/COLLJ SPEC WHEN PFRMD 05/22/2019 Colonoscopy COLPOPEXY VAGINAL EXTRAPERITONEAL APPROACH 02/2013 repair of rectal and vaginal prolapse COLSC FLX W/RMVL OF TUMOR POLYP LESION SNARE TQ 01/28/2016 repeat 10 yrs EGD 10/16/2020 2 cratered gastric ulcers; Dr. Guillermo EGD TRANSORAL BIOPSY SINGLE/MULTIPLE 01/24/2007 EGD TRANSORAL BIOPSY SINGLE/MULTIPLE 01/28/2016 ESOPHAGEAL MOTILITY STUDY W/INTERP&RPT 04/29/2016 ESOPHAGOGASTRODUODENOSCOPY TRANSORAL DIAGNOSTIC 05/22/2005 EGD H-pylori negative ESOPHAGOGASTRODUODENOSCOPY TRANSORAL DIAGNOSTIC 03/02/2016 ESOPHAGOGASTRODUODENOSCOPY TRANSORAL DIAGNOSTIC 05/22/2019 EGD ESOPHAGOGASTRODUODENOSCOPY TRANSORAL DIAGNOSTIC 12/10/2020 healed ulcers; fundoplication intact; Dr. Guillermo GASTROESOPHAG REFLX TEST W/TELEMTRY PH ELTRD 03/02/2016 48 hour ph probe HERNIA REPAIR HX 1970 & 1972 herniorrhaphy, umbilical, right inguinal . PAST SURGICAL HISTORY OF 01/2005 heart catheterization PAST SURGICAL HISTORY OF 11/03/2004 left breast bx PAST SURGICAL HISTORY OF D & C, multiple PAST SURGICAL HISTORY OF Right 1990 carpal tunnel release PAST SURGICAL HISTORY OF Right arm surgery, ulnar nerve decompression X7 PAST SURGICAL HISTORY OF 05/2009 ganglion cyst removed right wrist PAST SURGICAL HISTORY OF 03/02/2016 pH probe PAST SURGICAL HISTORY OF Left 2002 carpal tunnel release PAST SURGICAL HISTORY OF 02/11/2017 laproscopic Walter Fundoplication.(Dr. Rojas [facility]) PAST SURGICAL HISTORY OF Right 12/2021 Tx of meniscus tear and Fx RECONSTRUCT VAGINAL WALL WITH MESH 04/2015 REMOVE CATARACT, INSERT LENS,EX 02/28/2009 Both Eyes REMV CATARACT EXTRACAP,INSERT LENS Bilateral RETROARC BLADDER SLING [id number] 09/03/2015 retroarc tension free vaginal sling TONSILLECTOMY HX 195 TOTAL ABDOM HYSTERECTOMY 1988 VENOGRAM UNILATERAL 04/2020 groin Family History FAMILY HISTORY Problem Relation Age of Onset Heart Mother Diabetes Mother Cancer Father base of skull other (parkinsons) Father Thyroid Sister Breast Cancer Sister other (hepatitis) Sister @62yrs of age/Liver Problems Thyroid Daughter Thyroid Daughter Cervical Cancer Daughter No Ocular Disease No Family History Patient Allergies ALLERGIES Allergen Reactions Morphine GI Upset nausea Nsaids (Non-Steroid* Other: See Comments Hx of stomach ulcers Advair Diskus [Flut* Intolerance Hurts throat Bentyl [Dicyclomine* Unknown Celebrex [Celecoxib] GI Upset Dicyclomine Other: See Comments Dry mouth, blurred vision, loss of taste Estrace [Estradiol] Itching Evista [Raloxifene * Itching Macrobid [Nitrofura* Other: See Comments Hair loss Medrol [Methylpredn* Other: See Comments Dry mouth, sore throat. Mobic [Meloxicam] Intolerance Oxycontin [Oxycodon* Itching Penicillins Itching Prednisone Rash Uncertain. But did ok in 2017 Prozac [Fluoxetine * Unknown Sulfamethizole GI Upset Symax-Sl [Hyoscyami* Unknown Current Medications Current Outpatient Medications on File Prior to Visit Medication Sig albuterol HFA (VENTOLIN HFA) 90 mcg/actuation inhaler Inhale 2 Puffs as instructed every 4 hours asneeded. Zolpidem (AMBIEN CR) 12.5 mg CR tablet Take 1 tablet by mouth at bedtime as needed for sedation forup to [address] (PROTONIX) 20 mg tablet Take 1 tablet by mouth twice daily as needed. Benzonatate 200 mg capsule Take 1 capsule by mouth three times daily as needed. nystatin (NYSTOP) powder Apply 1 application to affected area three times daily. to affected area as needed budesonide (PULMICORT) 0.25 mg/2 mL nebulizer solution USE 2 ML VIA NEBULIZER TWICE DAILY. DX: MILDPERSISTENT ASTHMA J45.21 No current facility-administered medications on file prior to visit. Social History Social History Tobacco Use Smoking status: Never Smokeless tobacco: Never Tobacco comments: Father smoked occasionally in childhood home. Spouse smoked in home until 4 years ago. Vaping Use Vaping Use: Never used Substance Use Topics Alcohol use: No Drug use: No Review of Symptoms REVIEW OF SYSTEMS See hpi EXAM: BP 110/80 (BP Site: Left Arm, BP Position: Sitting, BP Cuff Size: Large Adult) Pulse 64 Temp 36.4 C (97.5 F) Resp 18 Wt 86.2 kg (190 lb) BMI 32.54 kg/m General Appearance: Well appearing, alert, in no acute distress, well-hydrated, well nourished.. Lungs: Lungs clear to auscultation. No wheezing, rhonchi, rales.. Heart: RRR without murmur, gallop, or rubs. No ectopy. Health Maintenance List DTaP,Tdap,Td Vaccine(1 - Tdap) Never done Covid-19 Vaccine(3 - Moderna series) due on 12/04/2020 Mammogram Screening due on 07/14/2023 Annual PCP Team Chronic Disease Visit due on 03/03/2024 Diabetes Screening due on 03/01/2026 Lipid Screening due on 03/01/2028 Colorectal Cancer Screening due on 05/22/2029 Bone Density Screening Completed Spirometry Completed Advance Directive Discussion Completed Hepatitis C Screening Completed Shingrix Vaccine Completed Pneumococcal Vaccine: 65+ Completed Influenza Vaccine Discontinued Data reviewed RESULTS: Lumbar spine (L1-L4): 0.831 g/cm2 , T-score -2.0 , Z-score 0.3 . Not significantly changed Left Femoral Neck: 0.533 g/cm2 , T-score-2.8 , Z-score-0.9 . 0.070 g/sq cm worse Left Total Hip: 0.648 g/cm2 , T-score-2.4 , Z-score -0.7 . Right Femoral Neck: 0.5-2 g/cm2 , T-score -2.9 , Z-score-1.0 . Right Total Hip: 0.670 g/cm2 , T-score-2.2 , Z-score -0.6 ASSESSMENT/PLAN: 1. Senile osteoporosis - ICD9: 733.01, ICD10: M81.0 (primary diagnosis) - begin tx with alendronate (Fosamax) - Reviewed the need for Calcium and Vitamin D supplements and weight bearing exercise as tolerated 2. Chronic sinusitis, unspecified location - ICD9: 473.9, ICD10: J32.9 Will have patient try singulair. Discussed potential risks. Also patient to try nasal saline spray 3. Chronic cough - ICD9: 786.2, ICD10: R05.3 As above. Jaylin Combs PA-C [facility] Miscellaneous Notes* Telephone Encounter - Jaylin Combs PA-C - 03/22/2023 10:05 AM EDT Noted. * Telephone Encounter - Qasim Patterson LPN - 03/22/2023 9:51 AM EDT Pt notified of results and recommendations. Pt would like to discuss options. States she does not like taking medications d/t there are so may side effects. F/u appointment has been scheduled. Qasim Patterson LPN * Telephone Encounter - Jaylin oCmbs PA-C - 03/20/2023 10:38 PM EDT Let patient knows that her bone density shows worsening osteoporosis. See if she is interested in starting treatment with fosamax. Or would she like to schedule visit so we can discuss in more detail. Thanks Jaylin Combs PA-C documented in this encounterWood [facility]09-06-2023 History of Present illness Narrative* Matheus Tirado RT(Flavio) - 03/17/2023 10:30 AM EDT Radiology Service Progress Note PATIENT NAME: Nora Camarillo DATE OF SERVICE: March 17, 2023 TIME: 10:39 AM PATIENT IDENTITY VERIFICATION COMPLETED USING TWO (2) IDENTIFIERS: Name and Date of confirmedby patient verbally. FALL SCREENING: Has the patient had 2 falls in the last year or 1 fall with injury or currently using an Ambulatory Assistive Device (Walker, Cane, Wheelchair, Crutches, etc.)? No PATIENT GENDER DATA: Female. status: : No status: NO. PATIENT RELEVANT IMPLANT DATA REVIEWED: Not Applicable RADIOLOGY DEPARTMENT: Bone Density PERIPHERAL IV DATA: Not applicable SIGNED BY: RT Sunny(R) March 17, 2023 10:39 AM documented in this encounterWood [facility]08-24-2023 Miscellaneous Notes* Telephone Encounter - Lorenza Howe Ma - 03/04/2023 2:16 PM EDT PA approved July 12, 2022 to July 11, 2023 Patient was notified Lorenza Howe Ma * Telephone Encounter - Lorenza Howe Ma - 03/04/2023 1:58 PM EDT Received PA request from [facility] but completed electronically Lorenza Howe Ma documented in this encounterWood [facility]08-23-2023 Instructions* Patient Instructions* Jaylin Combs PA-C - 03/03/2023 1:30 PM EDT BONE MINERAL DENSITY PATIENT INSTRUCTIONS Bone mineral density testing measures the amount of calcium in certain parts of your bones. This information determines how strong your bones are. The test is used to detect osteoporosis, a disease in which the bone's mineral content and density are low, increasing a person's risk of fractures. Thelumbar spine (lower back) and the hip are the skeletal sites usually examined. For the test, remember that: 1. You cannot take this test if you are . 2. Eat a normal diet on the day of the test. 3. Take your medications as you normally would. 4. DO NOT take calcium supplements (such as Tums) for 24 hours before the test. 5. On the day of the test, leave valuables (jewelry or credit cards) at home. 6. The test should be performed prior to oral, rectal or IV contrast studies, or at least 7 days after any of these studies. For the test, you may be asked to wear a hospital gown. You will lie on your back, on a padded table, in a comfortable position. Generally, you can resume your usual activities immediately. documented in this encounterWood [facility] Hospital08-23-2023 History of Present illness Narrative* Jaylin Combs PA-C - 03/03/2023 1:18 PM EDT Medicare Yearly Visit Medical B eligibilty date 06/11/13 Date of last exam 02/12/22 PAST MEDICAL HISTORY Diagnosis Date Abnormal computed tomography angiography (CTA) 01/03/2019 right upper ICA with abnormality, consult to vascular 12/2018 Acute meniscal tear of left knee 04/13/2019 Advance directive discussed with patient 02/12/2022 Discussed 02/2022 Anxiety and depression 09/27/2020 Arthritis of left knee 02/19/2019 Bilateral carotid artery stenosis 01/03/2019 US: 12/2018 20-40% tatyana Chronic bilateral low back pain 01/01/2016 Seen [facility] Chronic pain of both ankles 09/27/2020 Chronic pain of left knee 09/27/2020 Chronic pain of right knee 09/30/2021 [facility] Current use of proton pump inhibitor 08/25/2019 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 rojas Hiatal hernia 07/22/2016 Left hip pain 09/14/[address] [facility] Xander Martinez Left lateral abdominal pain 02/15/2019 Mid quadrant, chronic and paroxysmal. 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 Linn Mixed hyperlipidemia 11/20/2009 Mixed incontinence 06/27/[address] Queen Obesity, Class I, BMI 30-34.9 06/15/2019 Palpitations 08/25/2019 Primary insomnia 07/22/2016 PUD (peptic ulcer disease) 03/13/2016 Hx of ulcer 2018 and two again in 10/2020. No NSAID's (aspirin held 10/2020) Senile osteoporosis 01/05/2006 Clinical Team Manager following (Dr. Dobson) Simple cyst of breast 11/2009 Left retroareolar Unspecified constipation PAST SURGICAL HISTORY Procedure Laterality Date APPENDECTOMY ARTHRS KNE SURG W/MENISCECTOMY MED/LAT W/SHVG Left 06/23/2019 Left knee medial and lateral menisectomies, medial and PF chondroplasties BREAST BIOPSY Left 2002 CARDIAC CATH 2003 COLONOSCOPY FLX DX W/COLLJ SPEC WHEN PFRMD 05/22/2019 Colonoscopy COLPOPEXY VAGINAL EXTRAPERITONEAL APPROACH 02/2013 repair of rectal and vaginal prolapse COLSC FLX W/RMVL OF TUMOR POLYP LESION SNARE TQ 01/28/2016 repeat 10 yrs EGD 10/16/2020 2 cratered gastric ulcers; Dr. Guillermo EGD TRANSORAL BIOPSY SINGLE/MULTIPLE 01/24/2007 EGD TRANSORAL BIOPSY SINGLE/MULTIPLE 01/28/2016 ESOPHAGEAL MOTILITY STUDY W/INTERP&RPT 04/29/2016 ESOPHAGOGASTRODUODENOSCOPY TRANSORAL DIAGNOSTIC 05/22/2005 EGD H-pylori negative ESOPHAGOGASTRODUODENOSCOPY TRANSORAL DIAGNOSTIC 03/02/2016 ESOPHAGOGASTRODUODENOSCOPY TRANSORAL DIAGNOSTIC 05/22/2019 EGD ESOPHAGOGASTRODUODENOSCOPY TRANSORAL DIAGNOSTIC 12/10/2020 healed ulcers; fundoplication intact; Dr. Guillermo GASTROESOPHAG REFLX TEST W/TELEMTRY PH ELTRD 03/02/2016 48 hour ph probe HERNIA REPAIR HX 1971 & 1973 herniorrhaphy, umbilical, right inguinal . PAST SURGICAL HISTORY OF 01/2005 heart catheterization PAST SURGICAL HISTORY OF 11/03/2004 left breast bx PAST SURGICAL HISTORY OF D & C, multiple PAST SURGICAL HISTORY OF Right 1990 carpal tunnel release PAST SURGICAL HISTORY OF Right arm surgery, ulnar nerve decompression X7 PAST SURGICAL HISTORY OF 05/2009 ganglion cyst removed right wrist PAST SURGICAL HISTORY OF 03/02/2016 pH probe PAST SURGICAL HISTORY OF Left 2002 carpal tunnel release PAST SURGICAL HISTORY OF 02/11/2017 laproscopic Walter Fundoplication.(Dr. Rojas [facility]) PAST SURGICAL HISTORY OF Right 12/2021 Tx of meniscus tear and Fx RECONSTRUCT VAGINAL WALL WITH MESH 04/2015 REMOVE CATARACT, INSERT LENS,EX 02/28/2009 Both Eyes REMV CATARACT EXTRACAP,INSERT LENS Bilateral RETROARC BLADDER SLING [id number] 09/03/2015 retroarc tension free vaginal sling TONSILLECTOMY HX 1956 TOTAL ABDOM HYSTERECTOMY 1989 VENOGRAM UNILATERAL 04/2020 groin ALLERGIES: Morphine, Nsaids (Non-Steroidal Anti-Inflammatory Drug), Advair Diskus [Fluticasone Propion-Salmeterol], Bentyl [Dicyclomine Hcl], Celebrex [Celecoxib], Dicyclomine, Estrace [Estradiol], Evista [Raloxifene Hcl], Macrobid [Nitrofurantoin Monohyd/M-Cryst], Medrol [Methylprednisolone], Mobic [Meloxicam ], Oxycontin [Oxycodone Hcl], Penicillins, Prednisone, Prozac [Fluoxetine Hcl], Sulfamethizole, andSymax-Sl [Hyoscyamine Sulfate] Medications reviewed: Yes FAMILY HISTORY Problem Relation Age of Onset Heart Mother Diabetes Mother Cancer Father base of skull other (parkinsons) Father Thyroid Sister Breast Cancer Sister other (hepatitis) Sister @62yrs of age/Liver Problems Thyroid Daughter Thyroid Daughter Cervical Cancer Daughter No Ocular Disease No Family History SOCIAL HISTORY: Social History Tobacco Use Smoking status: Never Smokeless tobacco: Never Tobacco comments: Father smoked occasionally in childhood home. Spouse smoked in home until 4 years ago. Vaping Use Vaping Use: Never used Substance Use Topics Alcohol use: No Drug use: No Nora gets minimal exercise but likes to stay active around her house. She watches her diet for sodium, low fat and low cholesterol generally not very much. List of current specialists seen: urology End of Live Planning discussed including patients advanced directive wishes: Yes I am willing to follow Nora's advanced directives. Depression Screening 07/22/2017 07/26/2018 02/12/2022 03/03/2023 PHQ-2 Score 2 2 4 1 PHQ-9 Score - - 13 - Depression screening tool completed and reviewed. Based on score and interview, patient is not at risk for depression. Screening tool discussed with patient, and I recommended no further interventionat this time. Functional Ability/Safety Screen 1. Was the patient's timed Up and Go test unsteady or longer than 30 seconds? No 2. Does the patient need help with the phone, transportation, shopping,preparing meals, housework, laundry, medications or managing money? No 3. Does your home have rugs in the hallway, lack of grab bars in the bathroom (Y), lack of handrails on the stairs or have poor lighting? No Hearing Evaluation: normal PHYSICAL EXAM BP 120/80 (BP Site: Left Arm, BP Position: Sitting, BP Cuff Size: Large Adult) Pulse 73 Temp 36.6 C (97.8 F) Resp 18 Ht 162.8 cm (5' 4.08) Wt 86.2 kg (190 lb) BMI 32.54 kg/m Alert and oriented X 3: YES Body mass index is 32.54 kg/m . Visual acuity: see opto ASSESSMENT/PLAN: 72 year old female The following prevention plan was discussed during the office visit and provided to the patient: See below Jaylin Combs PA-C Chief Complaint Patient presents with: Medicare Wellness Exam HPI Nora Camarillo is a 72 year old female who presents here today for extensive exam. Patient with hx of hyperlipidemia, Insomnia, asthma, GERD, anxiety/depression, osteoporosis, and those as below. No specific concerns today. Past medical history, appointments, medications, allergies reviewed. Previous Medical History PAST MEDICAL HISTORY Diagnosis Date Abnormal computed tomography angiography (CTA) 01/03/2019 right upper ICA with abnormality, consult to vascular 12/2018 Acute meniscal tear of left knee 04/13/2019 Advance directive discussed with patient 02/12/2022 Discussed 02/2022 Anxiety and depression 09/27/2020 Arthritis of left knee 02/19/2019 Bilateral carotid artery stenosis 01/03/2019 US: 12/2018 20-40% tatyana Chronic bilateral low back pain 01/01/2016 Seen [facility] Chronic pain of both ankles 09/27/2020 Chronic pain of left knee 09/27/2020 Chronic pain of right knee 09/30/2021 [facility] Current use of proton pump inhibitor 08/25/2019 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 rojas Hiatal hernia 07/22/2016 Left hip pain 09/14/[address] [facility] [address] Xander Martinez Left lateral abdominal pain 02/15/2019 Mid quadrant, chronic and paroxysmal. 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 Linn Mixed hyperlipidemia 11/20/2009 Mixed incontinence 06/27/[address] Queen Obesity, Class I, BMI 30-34.9 06/15/2019 Palpitations 08/25/2019 Primary insomnia 07/22/2016 PUD (peptic ulcer disease) 03/13/2016 Hx of ulcer 2018 and two again in 10/2020. No NSAID's (aspirin held 10/2020) Senile osteoporosis 01/05/2006 Clinical Team Manager following (Dr. Dobson) Simple cyst of breast 11/2009 Left retroareolar Unspecified constipation Previous Surgical History PAST SURGICAL HISTORY Procedure Laterality Date APPENDECTOMY ARTHRS KNE SURG W/MENISCECTOMY MED/LAT W/SHVG Left 06/23/2019 Left knee medial and lateral menisectomies, medial and PF chondroplasties BREAST BIOPSY Left 2002 CARDIAC CATH 2004 COLONOSCOPY FLX DX W/COLLJ SPEC WHEN PFRMD 05/22/2019 Colonoscopy COLPOPEXY VAGINAL EXTRAPERITONEAL APPROACH 02/2013 repair of rectal and vaginal prolapse COLSC FLX W/RMVL OF TUMOR POLYP LESION SNARE TQ 01/28/2016 repeat 10 yrs EGD 10/16/2020 2 cratered gastric ulcers; Dr. Guillermo EGD TRANSORAL BIOPSY SINGLE/MULTIPLE 01/24/2007 EGD TRANSORAL BIOPSY SINGLE/MULTIPLE 01/28/2016 ESOPHAGEAL MOTILITY STUDY W/INTERP&RPT 04/29/2016 ESOPHAGOGASTRODUODENOSCOPY TRANSORAL DIAGNOSTIC 05/22/2005 EGD H-pylori negative ESOPHAGOGASTRODUODENOSCOPY TRANSORAL DIAGNOSTIC 03/02/2016 ESOPHAGOGASTRODUODENOSCOPY TRANSORAL DIAGNOSTIC 05/22/2019 EGD ESOPHAGOGASTRODUODENOSCOPY TRANSORAL DIAGNOSTIC 12/10/2020 healed ulcers; fundoplication intact; Dr. Guillermo GASTROESOPHAG REFLX TEST W/TELEMTRY PH ELTRD 03/02/2016 48 hour ph probe HERNIA REPAIR HX 1971 & 1973 herniorrhaphy, umbilical, right inguinal . PAST SURGICAL HISTORY OF 01/2005 heart catheterization PAST SURGICAL HISTORY OF 11/03/2004 left breast bx PAST SURGICAL HISTORY OF D & C, multiple PAST SURGICAL HISTORY OF Right 1990 carpal tunnel release PAST SURGICAL HISTORY OF Right arm surgery, ulnar nerve decompression X7 PAST SURGICAL HISTORY OF 05/2009 ganglion cyst removed right wrist PAST SURGICAL HISTORY OF 03/02/2016 pH probe PAST SURGICAL HISTORY OF Left 2002 carpal tunnel release PAST SURGICAL HISTORY OF 02/11/2017 laproscopic Walter Fundoplication.(Dr. Rojas [facility]) PAST SURGICAL HISTORY OF Right 12/2021 Tx of meniscus tear and Fx RECONSTRUCT VAGINAL WALL WITH MESH 04/2015 REMOVE CATARACT, INSERT LENS,EX 02/28/2009 Both Eyes REMV CATARACT EXTRACAP,INSERT LENS Bilateral RETROARC BLADDER SLING [id number] 09/03/2015 retroarc tension free vaginal sling TONSILLECTOMY HX 1956 TOTAL ABDOM HYSTERECTOMY 1989 VENOGRAM UNILATERAL 04/2020 groin Family History FAMILY HISTORY Problem Relation Age of Onset Heart Mother Diabetes Mother Cancer Father base of skull other (parkinsons) Father Thyroid Sister Breast Cancer Sister other (hepatitis) Sister @62yrs of age/Liver Problems Thyroid Daughter Thyroid Daughter Cervical Cancer Daughter No Ocular Disease No Family History Patient Allergies ALLERGIES Allergen Reactions Morphine GI Upset nausea Nsaids (Non-Steroid* Other: See Comments Hx of stomach ulcers Advair Diskus [Flut* Intolerance Hurts throat Bentyl [Dicyclomine* Unknown Celebrex [Celecoxib] GI Upset Dicyclomine Other: See Comments Dry mouth, blurred vision, loss of taste Estrace [Estradiol] Itching Evista [Raloxifene * Itching Macrobid [Nitrofura* Other: See Comments Hair loss Medrol [Methylpredn* Other: See Comments Dry mouth, sore throat. Mobic [Meloxicam] Intolerance Oxycontin [Oxycodon* Itching Penicillins Itching Prednisone Rash Uncertain. But did ok in 2017 Prozac [Fluoxetine * Unknown Sulfamethizole GI Upset Symax-Sl [Hyoscyami* Unknown Current Medications Current Outpatient Medications on File Prior to Visit Medication Sig Zolpidem (AMBIEN CR) 12.5 mg CR tablet Take 1 tablet by mouth at bedtime as needed for sedation forup to 90 days. Benzonatate 200 mg capsule Take 1 capsule by mouth three times daily as needed. nystatin (NYSTOP) powder Apply 1 application to affected area three times daily. to affected area as needed albuterol HFA (VENTOLIN HFA) 90 mcg/actuation inhaler Inhale 2 Puffs as instructed every [address] (PROTONIX) 20 mg tablet Take 1 tablet by mouth twice daily as needed. budesonide (PULMICORT) 0.25 mg/2 mL nebulizer solution USE 2 ML VIA NEBULIZER TWICE DAILY. DX: MILDPERSISTENT ASTHMA J45.21 loratadine (CLARITIN) 10 mg tablet Take 1 tablet by mouth once daily. (Patient not taking: Reportedon 03/03/2023) No current facility-administered medications on file prior to visit. Social History Social History Tobacco Use Smoking status: Never Smokeless tobacco: Never Tobacco comments: Father smoked occasionally in childhood home. Spouse smoked in home until 4 years ago. Vaping Use Vaping Use: Never used Substance Use Topics Alcohol use: No Drug use: No Review of Symptoms REVIEW OF SYSTEMS GENERAL: No weight loss, malaise or fevers HEENT: No changes in hearing or vision, no nose bleeds or other nasal problems NECK: Negative for lumps, goiter, pain and significant neck swelling RESPIRATORY: Negative for cough, hemoptysis, wheezing, COPD, dyspnea or shortness of breath CARDIOVASCULAR: Negative for chest pain, leg swelling, hypertension, CHF or palpitations GI: Negative for abdominal discomfort, blood in stools or black stools, change in bowel habit, heart burn, nausea, vomiting : No history of dysuria, frequency or incontinence OCCUPATIONAL THERAPY DIRECTOR: Negative for abnormal vaginal bleeding, abnormal vaginal discharge MUSCULOSKELETAL: improving hip/back pain. Negative for joint pain or swelling, back pain or muscle pain SKIN: Negative for lesions, rash, and itching PSYCH: Negative for sleep disturbance, mood disorder and recent psychosocial stressors HEMATOLOGY/LYMPHOLOGY: Negative for prolonged bleeding, bruising easily or swollen nodes ENDOCRINE: Negative for cold or heat intolerance, polyuria, polydipsia and goiter NEURO: No history of headaches, syncope, paralysis, seizures or tremors EXAM: BP 120/80 (BP Site: Left Arm, BP Position: Sitting, BP Cuff Size: Large Adult) Pulse 73 Temp 36.6 C (97.8 F) Resp 18 Ht 162.8 cm (5' 4.08) Wt 86.2 kg (190 lb) BMI 32.54 kg/m General Appearance: Well appearing, alert, in no acute distress, well-hydrated, well nourished. andOverweight. Skin: Skin color, texture, turgor normal, no suspicious rashes or lesions. Head: Normocephalic, no masses, lesions, tenderness or abnormalities. Eyes: Anicteric sclera. Pupils are equally round and reactive to light. Extraocular movements are intact. . Ears: External ears normal, canals clear, TMs pearly cooley. Nose/Sinuses: Nares normal, septum midline, mucosa normal, no drainage or sinus tenderness. Oropharynx: Lips, mucosa, and tongue normal, teeth and gums normal, oropharynx normal. Neck: Supple, no adenopathy; thyroid symmetric, normal size, no bruits. Lungs: Lungs clear to auscultation. No wheezing, rhonchi, rales.. Heart: RRR without murmur, gallop, or rubs. No ectopy. Abdomen: Normal abdominal exam, Abdomen soft, non-tender. Bowel sounds normal. No masses, organomegaly. Extremities: No deformities, edema, skin discoloration, clubbing or cyanosis. Good capillary refill. . Peripheral Pulses: Normal. Neurologic: Gait normal. Reflexes normal and symmetric. Sensation grossly intact.. Health Maintenance List DTAP,TDAP,TD(1 - Tdap) Never done COVID-19 VACCINE(3 - Moderna series) due on 12/04/2020 ADVANCE DIRECTIVE DISCUSSION due on 07/12/2022 MAMMOGRAM due on 07/14/2023 ANNUAL PCP TEAM CHRONIC DISEASE VISIT due on 03/03/2024 DIABETES SCREEN due on 03/01/2026 LIPID SCREEN due on 03/01/2028 COLORECTAL CANCER SCREENING due on 05/22/2029 BONE DENSITY Completed SPIROMETRY Completed HEPATITIS C SCREENING Completed SHINGRIX VACCINE Completed PNEUMOCOCCAL: 65+ Completed INFLUENZA Discontinued Data reviewed Component Latest Ref Rng & Units 03/01/2023 Protein, Total 6.3 - 8.0 g/dL 7.1 Albumin 3.9 - 4.9 g/dL 4.1 Calcium 8.5 - 10.2 mg/dL 9.1 Bilirubin, Total 0.2 - 1.3 mg/dL 0.5 Alkaline Phosphatase 34 - 123 U/L 93 AST 13 - 35 U/L 21 ALT 7 - 38 U/L 24 Glucose 74 - 99 mg/dL 107 (H) BUN 7 - 21 mg/dL 14 Creatinine 0.58 - 0.96 mg/dL 0.63 Sodium 136 - 144 mmol/L 139 Potassium 3.7 - 5.1 mmol/L 4.4 Chloride 97 - 105 mmol/L 105 CO2 22 - 30 mmol/L 23 Anion Gap 9 - 18 mmol/L 11 eGFR >=60 mL/min/1.73m 94 Total Cholesterol, Nonfasting <200 mg/dL 183 Triglycerides, Nonfasting <150 mg/dL 82 HDL Cholesterol, Nonfasting >39 mg/dL 56 LDL Cholesterol, Nonfasting <100 mg/dL 111 (H) Non HDL Cholesterol, Nonfasting <130 mg/dL 127 VLDL Cholesterol, Nonfasting <30 mg/dL 16 Total Chol/HDL Ratio, Nonfasting <5.10 mg/dL 3.27 LDL/HDL Ratio, Nonfasting <2.54 mg/dL 1.98 Hemoglobin A1C 4.3 - 5.6 % 5.3 Estimated Average Glucose mg/dL 105 TSH 0.270 - 4.200 mIU/L 1.430 ASSESSMENT/PLAN: 1. Medicare annual wellness visit, subsequent - ICD9: V70.0, ICD10: Z00.00 (primary diagnosis) - Counseled on healthy diet and regular exercise - Calcium intake with supplements or by diet of 1000 mg/day for under 50, 1200- 1500 mg/day for 50+ - Discussed need and benefit for weight loss. BMI 32.54 kg/(m^2) 2. Advance directive discussed with patient - ICD9: V65.49, ICD10: Z71.89 In chart. Reviewed with patient. 3. Mixed hyperlipidemia - ICD9: 272.2, ICD10: E78.2 - Controlled - Counseled on healthy diet and regular exercise - LIPID PANEL, NONFASTING 4. Elevated fasting blood sugar - ICD9: 790.21, ICD10: R73.01 - HGB A1C 5. Mild persistent asthma without complication - ICD9: 493.90, ICD10: J45.30 - stable - Continue current medications - Avoidance of triggers recommended - ALBUTEROL SULFATE HFA 90 MCG/ACTUATION AEROSOL INHALER 6. Primary insomnia - ICD9: 307.42, ICD10: F51.01 Stable on ambien. Refill given - ZOLPIDEM ER 12.5 MG TABLET,EXTENDED RELEASE,MULTIPHASE 7. Asymptomatic postmenopausal status - ICD9: V49.81, ICD10: Z78.0 - DXA-AXIAL SKELETON 8. Senile osteoporosis - ICD9: 733.01, ICD10: M81.0 - DXA-AXIAL SKELETON - BASIC METABOLIC PNL - VITAMIN D 25 HYDROXY Jaylin Combs PA-C documented [facility] Miscellaneous Notes* Telephone Encounter - Treasure Sanchez MA - 01/25/2023 2:42 PM EDT Patient contacted and she will call the [facility] and let office know. Treasure Sanchez MA * Telephone Encounter - Scot Blank MD - 01/25/2023 12:55 PM EDT Has see gone to the [facility] and asked them what she needs to provide to get a wheelchair license plate? * Telephone Encounter - Farzana Graham RN - 01/25/2023 11:35 AM EDT Pt requesting disability license plate. Has handicap placard but states she would rather have plates. Asking provider's office to advise. documented in this encounterWood [facility]04-10-[facility]23 Miscellaneous Notes* Telephone Encounter - Qasim Patterson LPN - 10/19/2022 1:53 PM EDT Patient notified of results and provider's instructions. Patient verbalizes understanding. Qasim Patterson LPN * Telephone Encounter - Qasim Patterson LPN - 10/19/2022 1:52 PM EDT ----- Message from Jaylin Combs PA-C sent at 10/19/2022 1:19 PM EDT ----- Xray is negative. Continue as we discussed. documented in this encounterWood [facility]04-10-2023 History of Present illness Narrative* Gloria Lopez, RT(R) - 10/19/2022 12:20 PM EDT Radiology Service Progress Note PATIENT NAME: Nora Camarillo DATE OF SERVICE: October 19, 2022 TIME: 12:13 PM PATIENT IDENTITY VERIFICATION COMPLETED USING TWO (2) IDENTIFIERS: Name and Date of confirmedby patient verbally. FALL SCREENING: Has the patient had 2 falls in the last year or 1 fall with injury or currently using an Ambulatory Assistive Device (Walker, Cane, Wheelchair, Crutches, etc.)? No PATIENT GENDER DATA: Female. status: : No status: NO. PATIENT RELEVANT IMPLANT DATA REVIEWED: Yes RADIOLOGY DEPARTMENT: General X-ray: Exam(s) Completed: Chest X-Ray PERIPHERAL IV DATA: Not applicable SIGNED BY: RT Rizwan(R) October 19, 2022 12:13 PM documented in this encounterWood [facility]04-10-2023 History of Present illness Narrative* Jaylin Combs PA-C - 10/19/2022 11:46 AM EDT Chief Complaint Patient presents with: Cough HPI Nora Camarillo is a 72 year old female who presents here today for Above Complaints.. Patient reports cough for about a month. Has been worsening. She states she is having cough spasms that is causing trouble breathing. She has noticed wheezing at time. No fever. No sinus symptom but notes postnasal drip. Cough is productive. Past medical history, appointments, medications, allergies reviewed. Previous Medical History PAST MEDICAL HISTORY Diagnosis Date Abnormal computed tomography angiography (CTA) 01/03/2019 right upper ICA with abnormality, consult to vascular 12/2018 Acute meniscal tear of left knee 04/13/2019 Advance directive discussed with patient 02/12/2022 Discussed 02/2022 Anxiety and depression 09/27/2020 Arthritis of left knee 02/19/2019 Bilateral carotid artery stenosis 01/03/2019 US: 12/2018 20-40% tatyana Chronic bilateral low back pain 01/01/2016 Seen [facility] Chronic pain of both ankles 09/27/2020 Chronic pain of left knee 09/27/2020 Chronic pain of right knee 09/30/2021 [facility]es [facility] Current use of proton pump inhibitor 08/25/2019 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 orjas Hiatal hernia 07/22/2016 Left hip pain 09/14/[address] [facility] [address] Xander Martinez Left lateral abdominal pain 02/15/2019 Mid quadrant, chronic and paroxysmal. Left leg swelling 02/27/2020 Living will on file 02/12/2022 DPA: Mait () Low back pain 09/14/2017 May-Thurner syndrome 09/27/2020 S/P stent to left groin area seeing Vascular Mild persistent asthma without complication 07/22/[address] Linn Mixed hyperlipidemia 11/20/2009 Mixed incontinence 06/27/[address] Queen Obesity, Class I, BMI 30-34.9 06/15/2019 Palpitations 08/25/2019 Primary insomnia 07/22/2016 PUD (peptic ulcer disease) 03/13/2016 Hx of ulcer 2018 and two again in 10/2020. No NSAID's (aspirin held 10/2020) Senile osteoporosis 01/05/2006 Clinical Team Manager following (Dr. Dobson) Simple cyst of breast 11/2009 Left retroareolar Unspecified constipation Previous Surgical History PAST SURGICAL HISTORY Procedure Laterality Date APPENDECTOMY ARTHRS KNE SURG W/MENISCECTOMY MED/LAT W/SHVG Left 06/23/2019 Left knee medial and lateral menisectomies, medial and PF chondroplasties BREAST BIOPSY Left 2002 CARDIAC CATH 2004 COLONOSCOPY FLX DX W/COLLJ SPEC WHEN PFRMD 05/22/2019 Colonoscopy COLPOPEXY VAGINAL EXTRAPERITONEAL APPROACH 02/2013 repair of rectal and vaginal prolapse COLSC FLX W/RMVL OF TUMOR POLYP LESION SNARE TQ 01/28/2016 repeat 10 yrs EGD 10/16/2020 2 cratered gastric ulcers; Dr. Guillermo EGD TRANSORAL BIOPSY SINGLE/MULTIPLE 01/24/2007 EGD TRANSORAL BIOPSY SINGLE/MULTIPLE 01/28/2016 ESOPHAGEAL MOTILITY STUDY W/INTERP&RPT 04/29/2016 ESOPHAGOGASTRODUODENOSCOPY TRANSORAL DIAGNOSTIC 05/22/2005 EGD H-pylori negative ESOPHAGOGASTRODUODENOSCOPY TRANSORAL DIAGNOSTIC 03/02/2016 ESOPHAGOGASTRODUODENOSCOPY TRANSORAL DIAGNOSTIC 05/22/2019 EGD ESOPHAGOGASTRODUODENOSCOPY TRANSORAL DIAGNOSTIC 12/10/2020 healed ulcers; fundoplication intact; Dr. Guillermo GASTROESOPHAG REFLX TEST W/TELEMTRY PH ELTRD 03/02/2016 48 hour ph probe HERNIA REPAIR HX 1971 & 1973 herniorrhaphy, umbilical, right inguinal . PAST SURGICAL HISTORY OF 01/2005 heart catheterization PAST SURGICAL HISTORY OF 11/03/2004 left breast bx PAST SURGICAL HISTORY OF D & C, multiple PAST SURGICAL HISTORY OF Right 1990 carpal tunnel release PAST SURGICAL HISTORY OF Right arm surgery, ulnar nerve decompression X7 PAST SURGICAL HISTORY OF 05/2009 ganglion cyst removed right wrist PAST SURGICAL HISTORY OF 03/02/2016 pH probe PAST SURGICAL HISTORY OF Left 2002 carpal tunnel release PAST SURGICAL HISTORY OF 02/11/2017 laproscopic Walter Fundoplication.(Dr. Rojas [facility]) PAST SURGICAL HISTORY OF Right 12/2021 Tx of meniscus tear and Fx RECONSTRUCT VAGINAL WALL WITH MESH 04/2015 REMOVE CATARACT, INSERT LENS,EX 02/28/2009 Both Eyes REMV CATARACT EXTRACAP,INSERT LENS Bilateral RETROARC BLADDER SLING [id number] 09/03/2015 retroarc tension free vaginal sling TONSILLECTOMY HX 195 TOTAL ABDOM HYSTERECTOMY 1988 VENOGRAM UNILATERAL 04/2020 groin Family History FAMILY HISTORY Problem Relation Age of Onset Heart Mother Diabetes Mother Cancer Father base of skull other (parkinsons) Father Thyroid Sister Breast Cancer Sister other (hepatitis) Sister @62yrs of age/Liver Problems Thyroid Daughter Thyroid Daughter Cervical Cancer Daughter No Ocular Disease No Family History Patient Allergies ALLERGIES Allergen Reactions Morphine GI Upset nausea Nsaids (Non-Steroid* Other: See Comments Hx of stomach ulcers Advair Diskus [Flut* Intolerance Hurts throat Bentyl [Dicyclomine* Unknown Celebrex [Celecoxib] GI Upset Dicyclomine Other: See Comments Dry mouth, blurred vision, loss of taste Estrace [Estradiol] Itching Evista [Raloxifene * Itching Macrobid [Nitrofura* Other: See Comments Hair loss Medrol [Methylpredn* Other: See Comments Dry mouth, sore throat. Mobic [Meloxicam] Intolerance Oxycontin [Oxycodon* Itching Penicillins Itching Prednisone Rash Uncertain. But did ok in 2017 Prozac [Fluoxetine * Unknown Sulfamethizole GI Upset Symax-Sl [Hyoscyami* Unknown Current Medications Current Outpatient Medications on File Prior to Visit Medication Sig albuterol HFA (VENTOLIN HFA) 90 mcg/actuation inhaler Inhale 2 Puffs as instructed every [address] (PROTONIX) 20 mg tablet Take 1 tablet by mouth twice daily as needed. loratadine (CLARITIN) 10 mg tablet Take 1 tablet by mouth once daily. (Patient taking differently: Take 10 mg by mouth once daily. Taking PRN) budesonide (PULMICORT) 0.25 mg/2 mL nebulizer solution USE 2 ML VIA NEBULIZER TWICE DAILY. DX: MILDPERSISTENT ASTHMA J45.21 furosemide (LASIX) 20 mg tablet Take 1 tablet by mouth once daily for 4 days. (Patient not taking: Reported on 10/19/2022) Zolpidem (AMBIEN CR) 12.5 mg CR tablet Take 1 tablet by mouth at bedtime as needed for sedation forup to 90 days. (Patient taking differently: Take 12.5 mg by mouth at bedtime as needed for sedation. Taking as needed) No current facility-administered medications on file prior to visit. Social History Social History Tobacco Use Smoking status: Never Smokeless tobacco: Never Tobacco comments: Father smoked occasionally in childhood home. Spouse smoked in home until 4 years ago. Vaping Use Vaping Use: Never used Substance Use Topics Alcohol use: No Drug use: No Review of Symptoms REVIEW OF SYSTEMS See hpi EXAM: BP 126/76 (BP Site: Left Arm, BP Position: Sitting, BP Cuff Size: Large Adult) Pulse 80 Temp 36.8 C (98.2 F) Resp 18 Wt 87.1 kg (192 lb) SpO2 96% BMI 33.22 kg/m General Appearance: Well appearing, alert, in no acute distress, well-hydrated, well nourished.. Ears: External ears normal, canals clear, TMs pearly cooley. Nose/Sinuses: Nares normal, septum midline, mucosa normal, no drainage or sinus tenderness. Oropharynx: Lips, mucosa, and tongue normal, teeth and gums normal, oropharynx normal. Neck: Supple, no adenopathy; thyroid symmetric, normal size, no bruits. Lungs: scattered coarse wheezes throughout all lung kearney.. Heart: RRR without murmur, gallop, or rubs. No ectopy. Health Maintenance List ADVANCE DIRECTIVE DISCUSSION due on 07/12/2022 DTAP,TDAP,TD(1 - Tdap) due on 02/12/2023 COVID-19 VACCINE(3 - Booster for Moderna series) due on 02/12/2023 MAMMOGRAM due on 07/14/2023 ANNUAL PCP TEAM CHRONIC DISEASE VISIT due on 08/19/2023 DIABETES SCREEN due on 08/18/2025 LIPID SCREEN due on 08/18/2027 COLORECTAL CANCER SCREENING due on 05/22/2029 BONE DENSITY Completed SPIROMETRY Completed HEPATITIS C SCREENING Completed SHINGRIX VACCINE Completed PNEUMOCOCCAL: 65+ Completed INFLUENZA Discontinued Data reviewed ASSESSMENT/PLAN: 1. Subacute cough - ICD9: 786.2, ICD10: R05.2 (primary diagnosis) Start prednisone and atb. Check cxr. Discussed PFT in future. Recheck in 1 month - XR CHEST 2V FRONTAL/LAT 2. COPD with exacerbation (HCC) - ICD9: 491.21, ICD10: J44.1 As above. Jaylin Combs PA-C documented in this encounterWood [facility]03-30-2023 Miscellaneous Notes* Telephone Encounter - TIAGO Mason - 10/08/2022 1:29 PM EDT CHRISTO 08/19/22 Appointment 02/17/23 Please advise. Thank you. TIAGO Mason * Telephone Encounter - Lia Marsh - 10/08/2022 11:21 AM EDT Patient has been identified by name and date of : Yes, Provider Dr. Blank Date 10/08/22 Time 1120 Patient phones for refill(s): Requested Prescriptions Pending Prescriptions Disp Refills albuterol HFA (VENTOLIN HFA) 90 mcg/actuation inhaler Sig: Inhale 2 Puffs as instructed every 4 hours as needed. Date of last office visit in primary care: 08/19/22 Last 2 Encounter Wt Readings: Date: Wt: 08/19/2022 86.9 kg (191 lb 9.6 oz) 02/12/2022 83.9 kg (185 lb) Previous labs/tests for medication: Not applicable PER PT SEND TO [facility] Please advise. Thank you. Lia Marsh documented in this encounterWood [facility]03-24-2023 Miscellaneous Notes* Telephone Encounter - TIAGO Mason - 10/02/2022 11:08 AM EDT CHRISTO 08/19/22 with RR Appointment scheduled for 02/17/23 with EMIR Please advise. Thank you. TIAGO Mason * Telephone Encounter - Melyssa Fitzgerald - 10/02/2022 9:26 AM EDT Patient has been identified by name and date of : Yes Requested Prescriptions Pending Prescriptions Disp Refills loratadine (CLARITIN) 10 mg tablet 30 tablet 11 Sig: Take 1 tablet by mouth once daily. pantoprazole DR (PROTONIX) 20 mg tablet 60 tablet 6 Sig: Take 1 tablet by mouth twice daily as needed. RX INSTRUCTIONS: Patient aware RX will be sent to pharmacy. No need to notify patient. Melyssa Fitzgerald documented in this encounterWood [facility]03-10-2023 History of Present illness Narrative* Gloria Lopez RT(R) - 09/18/2022 10:20 AM EST Radiology Service Progress Note PATIENT NAME: Nora Camarillo DATE OF SERVICE: September 18, 2022 TIME: 10:17 AM PATIENT IDENTITY VERIFICATION COMPLETED USING TWO (2) IDENTIFIERS: Name and Date of confirmedby patient verbally. FALL SCREENING: Has the patient had 2 falls in the last year or 1 fall with injury or currently using an Ambulatory Assistive Device (Walker, Cane, Wheelchair, Crutches, etc.)? No PATIENT GENDER DATA: Female. status: : No status: NO. PATIENT RELEVANT IMPLANT DATA REVIEWED: Yes RADIOLOGY DEPARTMENT: General X-ray: Exam(s) Completed: Lower Extremity X- Ray(s): Foot, Left and Wt. Bearing PERIPHERAL IV DATA: Not applicable SIGNED BY: RT Rizwan(Flavio) September 18, 2022 10:17 AM documented in this encounterWood [facility]03-10-2023 History of Present illness Narrative* Maciej Brown - 09/18/2022 9:59 AM EST Images from the original note were not included. FOLLOW UP PODIATRIC OFFICE VISIT Chief Complaint: This 72 year old who presents for follow up:left foot pain Patient presents to clinic for follow-up left foot pain Patient states that over the past few weeks, she has noticed increased pain to the plantar aspect of left medial arch. She states that at times, she has difficult time finding position to place the foot where there is no pain. She is using the inserts and they do help. PAIN EVALUATION 09/18/2022 0923 Pain Level: 5 at worse 8 Pain Location: Foot-Left Description: Sharp;Throbbing Duration Amount of Time: 3 Duration Units: Weeks Frequency: Continuous Intervention/Comfort measure: Reposition;Relaxation Hemoglobin A1C Date Value Ref Range Status 08/18/2022 5.3 4.3 - 5.6 % Final Comment: [place] Diabetes [employer] guidelines indicate that patients with HgbA1c in the range 5.7-6.4% are at increased risk for development of diabetes, and intervention by lifestyle modification may be beneficial. HgbA1c greater or equal to 6.5% is considered diagnostic of diabetes. PCP: Scot Blnak MD PAST MEDICAL HISTORY Diagnosis Date Abnormal computed tomography angiography (CTA) 01/03/2019 right upper ICA with abnormality, consult to vascular 12/2018 Acute meniscal tear of left knee 04/13/2019 Advance directive discussed with patient 02/12/2022 Discussed 02/2022 Anxiety and depression 09/27/2020 Arthritis of left knee 02/19/2019 Bilateral carotid artery stenosis 01/03/2019 US: 12/2018 20-40% tatyana Chronic bilateral low back pain 01/01/2016 Seen [facility] Chronic pain of both ankles 09/27/2020 Chronic pain of left knee 09/27/2020 Chronic pain of right knee 09/30/2021 [facility]es [facility] Current use of proton pump inhibitor 08/25/2019 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 rojas Hiatal hernia 07/22/2016 Left hip pain 09/14/[address] [facility] [address] Xander Martinez Left lateral abdominal pain 02/15/2019 Mid quadrant, chronic and paroxysmal. 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 Linn Mixed hyperlipidemia 11/20/2009 Mixed incontinence 06/27/[address] Queen Obesity, Class I, BMI 30-34.9 06/15/2019 Palpitations 08/25/2019 Primary insomnia 07/22/2016 PUD (peptic ulcer disease) 03/13/2016 Hx of ulcer 2018 and two again in 10/2020. No NSAID's (aspirin held 10/2020) Senile osteoporosis 01/05/2006 Clinical Team Manager following (Dr. Dobson) Simple cyst of breast 11/2009 Left retroareolar Unspecified constipation Current Outpatient Medications Medication Sig Zolpidem (AMBIEN CR) 12.5 mg CR tablet Take 1 tablet by mouth at bedtime as needed for sedation forup to 90 days. (Patient taking differently: Take 12.5 mg by mouth at bedtime as needed for sedation. Taking as needed) pantoprazole DR (PROTONIX) 20 mg tablet Take 1 tablet by mouth twice daily as needed. (Patient taking differently: Take 20 mg by mouth twice daily as needed. Taking when needed) loratadine (CLARITIN) 10 mg tablet Take 1 tablet by mouth once daily. (Patient taking differently: Take 10 mg by mouth once daily. Taking PRN) albuterol HFA (VENTOLIN HFA) 90 mcg/actuation inhaler Inhale 2 Puffs as instructed every 4 hours asneeded. furosemide (LASIX) 20 mg tablet Take 1 tablet by mouth once daily for 4 days. budesonide (PULMICORT) 0.25 mg/2 mL nebulizer solution USE 2 ML VIA NEBULIZER TWICE DAILY. DX: MILDPERSISTENT ASTHMA J45.21 No current facility-administered medications for this visit. ALLERGIES Allergen Reactions Morphine GI Upset nausea Nsaids (Non-Steroid* Other: See Comments Hx of stomach ulcers Advair Diskus [Flut* Intolerance Hurts throat Bentyl [Dicyclomine* Unknown Celebrex [Celecoxib] GI Upset Dicyclomine Other: See Comments Dry mouth, blurred vision, loss of taste Estrace [Estradiol] Itching Evista [Raloxifene * Itching Macrobid [Nitrofura* Other: See Comments Hair loss Medrol [Methylpredn* Other: See Comments Dry mouth, sore throat. Mobic [Meloxicam] Intolerance Oxycontin [Oxycodon* Itching Penicillins Itching Prednisone Rash Uncertain. But did ok in 2017 Prozac [Fluoxetine * Unknown Sulfamethizole GI Upset Symax-Sl [Hyoscyami* Unknown PAST SURGICAL HISTORY Procedure Laterality Date APPENDECTOMY ARTHRS KNE SURG W/MENISCECTOMY MED/LAT W/SHVG Left 06/23/2019 Left knee medial and lateral menisectomies, medial and PF chondroplasties BREAST BIOPSY Left 2003 CARDIAC CATH 2004 COLONOSCOPY FLX DX W/COLLJ SPEC WHEN PFRMD 05/22/2019 Colonoscopy COLPOPEXY VAGINAL EXTRAPERITONEAL APPROACH 02/2013 repair of rectal and vaginal prolapse COLSC FLX W/RMVL OF TUMOR POLYP LESION SNARE TQ 01/28/2016 repeat 10 yrs EGD 10/16/2020 2 cratered gastric ulcers; Dr. Guillermo EGD TRANSORAL BIOPSY SINGLE/MULTIPLE 01/24/2007 EGD TRANSORAL BIOPSY SINGLE/MULTIPLE 01/28/2016 ESOPHAGEAL MOTILITY STUDY W/INTERP&RPT 04/29/2016 ESOPHAGOGASTRODUODENOSCOPY TRANSORAL DIAGNOSTIC 05/22/2005 EGD H-pylori negative ESOPHAGOGASTRODUODENOSCOPY TRANSORAL DIAGNOSTIC 03/02/2016 ESOPHAGOGASTRODUODENOSCOPY TRANSORAL DIAGNOSTIC 05/22/2019 EGD ESOPHAGOGASTRODUODENOSCOPY TRANSORAL DIAGNOSTIC 12/10/2020 healed ulcers; fundoplication intact; Dr. Guillermo GASTROESOPHAG REFLX TEST W/TELEMTRY PH ELTRD 03/02/2016 48 hour ph probe HERNIA REPAIR HX 1970 & 1972 herniorrhaphy, umbilical, right inguinal . PAST SURGICAL HISTORY OF 01/2005 heart catheterization PAST SURGICAL HISTORY OF 11/03/2004 left breast bx PAST SURGICAL HISTORY OF D & C, multiple PAST SURGICAL HISTORY OF Right 1990 carpal tunnel release PAST SURGICAL HISTORY OF Right arm surgery, ulnar nerve decompression X7 PAST SURGICAL HISTORY OF 05/2009 ganglion cyst removed right wrist PAST SURGICAL HISTORY OF 03/02/2016 pH probe PAST SURGICAL HISTORY OF Left 2002 carpal tunnel release PAST SURGICAL HISTORY OF 02/11/2017 laproscopic Walter Fundoplication.(Dr. Rojas [facility]) PAST SURGICAL HISTORY OF Right 12/2021 Tx of meniscus tear and Fx RECONSTRUCT VAGINAL WALL WITH MESH 04/2015 REMOVE CATARACT, INSERT LENS,EX 02/28/2009 Both Eyes REMV CATARACT EXTRACAP,INSERT LENS Bilateral RETROARC BLADDER SLING [id number] 09/03/2015 retroarc tension free vaginal sling TONSILLECTOMY HX 1955 TOTAL ABDOM HYSTERECTOMY 1989 VENOGRAM UNILATERAL 04/2020 groin Physical Exam: OBJECTIVE: Constitutional: Pt is a well developed 72 year old female who is alert, oriented, cooperative and in no apparent distress. Eyes: Following during examination. No redness or drainage. Respiratory: RR normal and nonlabored. Even breathing. No evidence of distress. Psychology: Patient is engaged during conversation. Normal affect and mood. Does not appear depressed or anxious. NVSI unchanged from previous visit. Dermatological: Nails 1-5 b/l are normal. Webspaces clean and dry 1-4 b/l. Skin appears well hydrated and supple. good color, texture, turgor. No open lesions present. No callosities present. Musculoskeletal/Orthopaedic: Patient has pain to palpation of left plantar heel, left 1st mtpj and left 2nd toe. Patient has slight pain to plantar medial arch Lateral deviation of left 2nd toe. ASSESSMENT: (M79.5) Foreign body (FB) in soft tissue (primary encounter diagnosis) (M20.12) Acquired hallux valgus of left foot (M79.672) Pain in left foot PLAN: Discussed foreign body of left foot. This is a chronic issue for patient and from xrays taken in March, appears that the foreign body is plantar to 1st and 2d metatarsal shafts. Could consider removal but may be complicated removal and may cause more harm such as painful scar than just leaving alone. Will repeat xray today to see if foreign body moved. Discussed pain in left great toe from bunion/arthritis. She also has lateral deviation of left 2nd and left 3rd toe. Continue with inserts. Surgical correction could be discussed but she would be offher foot for extended duration Maciej Brown DPM * No Hutchinson LPN - 09/18/2022 9:22 AM EST AMB ROOMING INTAKE FLOWSHEET DATA Pain Pain Level: 5 (at worse 8) Pain Location: Foot-Left Description: Sharp, Throbbing Duration Amount of Time: 3 Duration Units: Weeks Frequency: Continuous Intervention/Comfort measure: Reposition, Relaxation Patient presents with: Left Foot - Established Patient, Follow Up, Pain, Swelling, Numbness No Hutchinson LPN [facility] History of Present illness Narrative* Jaylin Combs PA-C - 08/19/2022 12:38 PM EST Chief Complaint Patient presents with: Follow Up: 6 month follow up HPI Nora Camarillo is a 72 year old female who presents here today for Chronic Medical Conditions.. Patient with hx of hyperlipidemia, asthma, insomnia, essential tremor, elevated glucose, and those as below. Patient overall doing okay. Patient states her home scale shows that she gained 8lbs in the past week. Last 3 Encounter BP Readings: Date: BP: 08/19/2022 142/84 02/12/2022 128/78 10/13/2021 130/78 Past medical history, appointments, medications, allergies reviewed. Previous Medical History PAST MEDICAL HISTORY Diagnosis Date Abnormal computed tomography angiography (CTA) 01/03/2019 right upper ICA with abnormality, consult to vascular 12/2018 Acute meniscal tear of left knee 04/13/2019 Advance directive discussed with patient 02/12/2022 Discussed 02/2022 Anxiety and depression 09/27/2020 Arthritis of left knee 02/19/2019 Bilateral carotid artery stenosis 01/03/2019 US: 12/2018 20-40% tatyana Chronic bilateral low back pain 01/01/2016 Seen [facility] Chronic pain of both ankles 09/27/2020 Chronic pain of left knee 09/27/2020 Chronic pain of right knee 09/30/2021 [facility]es [facility] Current use of proton pump inhibitor 08/25/2019 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 rojas Hiatal hernia 07/22/2016 Left hip pain 09/14/[address] [place] [address] Xander Martinez Left lateral abdominal pain 02/15/2019 Mid quadrant, chronic and paroxysmal. 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 Linn Mixed hyperlipidemia 11/20/2009 Mixed incontinence 06/27/[address] Queen Obesity, Class I, BMI 30-34.9 06/15/2019 Palpitations 08/25/2019 Primary insomnia 07/22/2016 PUD (peptic ulcer disease) 03/13/2016 Hx of ulcer 2018 and two again in 10/2020. No NSAID's (aspirin held 10/2020) Senile osteoporosis 01/05/2006 Clinical Team Manager following (Dr. Dobson) Simple cyst of breast 11/2009 Left retroareolar Unspecified constipation Previous Surgical History PAST SURGICAL HISTORY Procedure Laterality Date APPENDECTOMY ARTHRS KNE SURG W/MENISCECTOMY MED/LAT W/SHVG Left 06/23/2019 Left knee medial and lateral menisectomies, medial and PF chondroplasties BREAST BIOPSY Left 2002 CARDIAC CATH 2004 COLONOSCOPY FLX DX W/COLLJ SPEC WHEN PFRMD 05/22/2019 Colonoscopy COLPOPEXY VAGINAL EXTRAPERITONEAL APPROACH 02/2013 repair of rectal and vaginal prolapse COLSC FLX W/RMVL OF TUMOR POLYP LESION SNARE TQ 01/28/2016 repeat 10 yrs EGD 10/16/2020 2 cratered gastric ulcers; Dr. Guillermo EGD TRANSORAL BIOPSY SINGLE/MULTIPLE 01/24/2007 EGD TRANSORAL BIOPSY SINGLE/MULTIPLE 01/28/2016 ESOPHAGEAL MOTILITY STUDY W/INTERP&RPT 04/29/2016 ESOPHAGOGASTRODUODENOSCOPY TRANSORAL DIAGNOSTIC 05/22/2005 EGD H-pylori negative ESOPHAGOGASTRODUODENOSCOPY TRANSORAL DIAGNOSTIC 03/02/2016 ESOPHAGOGASTRODUODENOSCOPY TRANSORAL DIAGNOSTIC 05/22/2019 EGD ESOPHAGOGASTRODUODENOSCOPY TRANSORAL DIAGNOSTIC 12/10/2020 healed ulcers; fundoplication intact; Dr. Guillermo GASTROESOPHAG REFLX TEST W/TELEMTRY PH ELTRD 03/02/2016 48 hour ph probe HERNIA REPAIR HX 1971 & 1973 herniorrhaphy, umbilical, right inguinal . PAST SURGICAL HISTORY OF 01/2005 heart catheterization PAST SURGICAL HISTORY OF 11/03/2004 left breast bx PAST SURGICAL HISTORY OF D & C, multiple PAST SURGICAL HISTORY OF Right 1990 carpal tunnel release PAST SURGICAL HISTORY OF Right arm surgery, ulnar nerve decompression X7 PAST SURGICAL HISTORY OF 05/2009 ganglion cyst removed right wrist PAST SURGICAL HISTORY OF 03/02/2016 pH probe PAST SURGICAL HISTORY OF Left 2002 carpal tunnel release PAST SURGICAL HISTORY OF 02/11/2017 laproscopic Walter Fundoplication.(Dr. Rojas [facility]) PAST SURGICAL HISTORY OF Right 12/2021 Tx of meniscus tear and Fx RECONSTRUCT VAGINAL WALL WITH MESH 04/2015 REMOVE CATARACT, INSERT LENS,EX 02/28/2009 Both Eyes REMV CATARACT EXTRACAP,INSERT LENS Bilateral RETROARC BLADDER SLING [id number] 09/03/2015 retroarc tension free vaginal sling TONSILLECTOMY HX 1956 TOTAL ABDOM HYSTERECTOMY 1989 VENOGRAM UNILATERAL 04/2020 groin Family History FAMILY HISTORY Problem Relation Age of Onset Heart Mother Diabetes Mother Cancer Father base of skull other (parkinsons) Father Thyroid Sister Breast Cancer Sister other (hepatitis) Sister @62yrs of age/Liver Problems Thyroid Daughter Thyroid Daughter Cervical Cancer Daughter No Ocular Disease No Family History Patient Allergies ALLERGIES Allergen Reactions Morphine GI Upset nausea Nsaids (Non-Steroid* Other: See Comments Hx of stomach ulcers Advair Diskus [Flut* Intolerance Hurts throat Bentyl [Dicyclomine* Unknown Celebrex [Celecoxib] GI Upset Dicyclomine Other: See Comments Dry mouth, blurred vision, loss of taste Estrace [Estradiol] Itching Evista [Raloxifene * Itching Macrobid [Nitrofura* Other: See Comments Hair loss Medrol [Methylpredn* Other: See Comments Dry mouth, sore throat. Mobic [Meloxicam] Intolerance Oxycontin [Oxycodon* Itching Penicillins Itching Prednisone Rash Uncertain. But did ok in 2017 Prozac [Fluoxetine * Unknown Sulfamethizole GI Upset Symax-Sl [Hyoscyami* Unknown Current Medications Current Outpatient Medications on File Prior to Visit Medication Sig Zolpidem (AMBIEN CR) 12.5 mg CR tablet Take 1 tablet by mouth at bedtime as needed for sedation forup to 90 days. (Patient taking differently: Take 12.5 mg by mouth at bedtime as needed for sedation. Taking as needed) pantoprazole DR (PROTONIX) 20 mg tablet Take 1 tablet by mouth twice daily as needed. (Patient taking differently: Take 20 mg by mouth twice daily as needed. Taking when needed) loratadine (CLARITIN) 10 mg tablet Take 1 tablet by mouth once daily. (Patient taking differently: Take 10 mg by mouth once daily. Taking PRN) albuterol HFA (VENTOLIN HFA) 90 mcg/actuation inhaler Inhale 2 Puffs as instructed every 4 hours asneeded. budesonide (PULMICORT) 0.25 mg/2 mL nebulizer solution USE 2 ML VIA NEBULIZER TWICE DAILY. DX: MILDPERSISTENT ASTHMA J45.21 QUEtiapine (SEROQUEL) 25 mg tablet Take 1 tablet by mouth twice daily. (Patient not taking: No sig reported) carboxymethylcellulose sodium (REFRESH OPHTHALMIC) Use in eyes. (Patient not taking: Reported on 08/19/2022) Cholecalciferol, Vitamin D3, 5,000 unit cap Take 1 capsule by mouth once daily. (Patient not taking: No sig reported) POLYETHYLENE GLYCOL 3350 (MIRALAX ORAL) Take 1 Packet by mouth as needed. (Patient not taking: No sig reported) No current facility-administered medications on file prior to visit. Social History Social History Tobacco Use Smoking status: Never Smokeless tobacco: Never Tobacco comments: Father smoked occasionally in childhood home. Spouse smoked in home until 4 years ago. Vaping Use Vaping Use: Never used Substance Use Topics Alcohol use: No Drug use: No Review of Symptoms REVIEW OF SYSTEMS GENERAL: No weight loss, malaise or fevers NECK: Negative for lumps, goiter, pain and significant neck swelling RESPIRATORY: Negative for cough, hemoptysis, wheezing, COPD, dyspnea or shortness of breath CARDIOVASCULAR: Negative for chest pain, leg swelling, hypertension, CHF or palpitations NEURO: No history of headaches, syncope, paralysis, seizures or tremors EXAM: BP 142/84 Pulse (!) 52 Resp 24 Wt 86.9 kg (191 lb 9.6 oz) SpO2 96% BMI 33.15 kg/m Last 3 Encounter Wt Readings: Date: Wt: 08/19/2022 86.9 kg (191 lb 9.6 oz) 02/12/2022 83.9 kg (185 lb) 09/22/2021 86.9 kg (191 lb 9.6 oz) General Appearance: Well appearing, alert, in no acute distress, well-hydrated, well nourished.. Neck: Supple, no adenopathy; thyroid symmetric, normal size, no bruits. Lungs: Lungs clear to auscultation. No wheezing, rhonchi, rales.. Heart: RRR without murmur, gallop, or rubs. No ectopy. Extremities: mild edema noted. Peripheral Pulses: Normal. Health Maintenance List ADVANCE DIRECTIVE DISCUSSION due on 07/12/2022 DTAP,TDAP,TD(1 - Tdap) due on 02/12/2023 COVID-19 VACCINE(3 - Booster for Moderna series) due on 02/12/2023 ANNUAL PCP TEAM CHRONIC DISEASE VISIT due on 02/12/2023 MAMMOGRAM due on 07/14/2023 DIABETES SCREEN due on 08/18/2025 LIPID SCREEN due on 08/18/2027 COLORECTAL CANCER SCREENING due on 05/22/2029 BONE DENSITY Completed SPIROMETRY Completed HEPATITIS C SCREENING Completed SHINGRIX VACCINE Completed PNEUMOCOCCAL: 65+ Completed INFLUENZA Discontinued Data reviewed Component Latest Ref Rng & Units 08/18/2022 Total Cholesterol, Nonfasting <200 mg/dL 203 (H) Triglycerides, Nonfasting <150 mg/dL 86 HDL Cholesterol, Nonfasting >39 mg/dL 64 LDL Cholesterol, Nonfasting <100 mg/dL 122 (H) Non HDL Cholesterol, Nonfasting <130 mg/dL 139 (H) VLDL Cholesterol, Nonfasting <30 mg/dL 17 Total Chol/HDL Ratio, Nonfasting <5.10 mg/dL 3.17 LDL/HDL Ratio, Nonfasting <2.54 mg/dL 1.91 Hemoglobin A1C 4.3 - 5.6 % 5.3 Estimated Average Glucose mg/dL 105 ASSESSMENT/PLAN: 1. Mixed hyperlipidemia - ICD9: 272.2, ICD10: E78.2 (primary diagnosis) - worsening control - Encouraged following a low carbohydrate, healthy oil intake diet. - Continue current therapy. Discussed restarting lipitor and patient prefers to monitor - COMP METABOLIC PANEL - LIPID PANEL, NONFASTING 2. Essential tremor - ICD9: 333.1, ICD10: G25.0 stable - TSH BLD 3. Primary insomnia - ICD9: 307.42, ICD10: F51.01 stable 4. Senile osteoporosis - ICD9: 733.01, ICD10: M81.0 - Reviewed the need for Calcium and Vitamin D supplements and weight bearing exercise as tolerated 5. Anxiety and depression - ICD9: 300.00, 311, ICD10: F41.9, F32.A stable 6. Bilateral carotid artery stenosis - ICD9: 433.10, 433.30, ICD10: I65.23 Last US stable 7. Mild persistent asthma without complication - ICD9: 493.90, ICD10: J45.30 stable - Avoidance of triggers recommended 8. Elevated fasting blood sugar - ICD9: 790.21, ICD10: R73.01 - COMP METABOLIC PANEL - HGB A1C 9. Family history of thyroid disease - ICD9: V18.19, ICD10: Z83.49 10. Weight gain - ICD9: 783.1, ICD10: R63.5 Unclear etiology. Patient states she feels it's specifically in her legs. Will do 4 days of lasix due to mild edema noted. Patient to monitor and follow up in office if symptoms worsen or persist. Jaylin Combs PA-C documented [facility] encounter[facility]01-04-[facility]23 Miscellaneous Notes* Letter - Mammography Coordinator - 07/15/2022 9:33 AM EST July 15, 2022 PID: [id number] Nora Camarillo [id number] [phone] Dear Ms. Camarillo, We are pleased to inform you that the results of your recent breast imaging exam on 07/14/2022 are normal. Early detection of cancer is very important. We also understand recommendations regarding breast cancer screening are controversial. Please discuss with your primary care provider which strategy is best for you and whether a mammogram is right for you. Your imaging studies and report will be [facility] as part of your permanent medical record and are available for your continuing care. Thank you for allowing us to help in meeting your health care needs. Sincerely, Dr. De La Fuente Interpreting Radiologist [facility] (Normal over 40) documented in this encounterWood [facility] Hospital01-03-2023 History of Present illness Narrative* Allison Sawant RT(R) - 07/14/2022 9:10 AM EST Radiology Service Progress Note PATIENT NAME: Nora Camarillo DATE OF SERVICE: July 14, 2022 TIME: 9:23 AM PATIENT IDENTITY VERIFICATION COMPLETED USING TWO (2) IDENTIFIERS: Name and Date of confirmedby patient verbally. FALL SCREENING: Has the patient had 2 falls in the last year or 1 fall with injury or currently using an Ambulatory Assistive Device (Walker, Cane, Wheelchair, Crutches, etc.)? No PATIENT GENDER DATA: Female. status: : No status: NO. PATIENT RELEVANT IMPLANT DATA REVIEWED: Not Applicable RADIOLOGY DEPARTMENT: Mammography PERIPHERAL IV DATA: Not applicable SIGNED BY: RT Tai(R) July 14, 2022 9:23 AM documented in this encounterWood [facility] Hospital10-20-2022 Miscellaneous Notes* Telephone Encounter - Treasure Sanchez MA - 04/30/2022 8:50 AM EDT Spoke with patient and gave Dr Blank's recommendations. She voiced understanding. Patient indicated that those options were given but felt discouraged from the doctor to go that route so she opted for the cream and inserts. She indicated the cream was $78.00. Treasure Sanchez MA * Telephone Encounter - Scot Blank MD - 04/27/2022 4:59 PM EDT Let patient know script for Ambien CR 12.5 mg for 90 days sent to [facility]. Regarding the needle she will need t reach out to Dr. Brown's office to find out what the treatment plan is. Looking at his office note he discussed other options such as surgical removal but you want to try inserts and a topical cream for the fibroma of the foot. The following approved medication requests have been transmitted electronically. Requested Prescriptions Signed Prescriptions Disp Refills Zolpidem (AMBIEN CR) 12.5 mg CR tablet 90 tablet 0 Sig: Take 1 tablet by mouth at bedtime as needed for sedation for up to 90 days. Authorizing Provider: SCOT BLANK MD * Telephone Encounter - Treasure Sanchez MA - 04/27/2022 3:41 PM EDT Spoke with patient and she indicated that CR ambien gave her 5-6 hours of sleep and then back up. So a little improvement. Patient is ok with 90 going to [facility] for this prescription only with [facility]. Patient also indicated that she saw Dr. Brown and he indicated she has (2) lumps on the bottom of her foot. After x-ray they determined she has a needle in her foot. She was given cream (which is not covered under her insurance) and inserts. She is concerned first how she got the needle in her foot and no mention on how or if they were going to take it out. Please review and advise. 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 Did it work better then the ambien 5 mg immediate release? That she said only worked for a short time and then she was awake again. If so, there is a good chance the Ambien 10 mg will work like the 5 mg dosing. She will fall asleepand not stay asleep. 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 (Which pharmacist said would not have been covered no matter what). Pharmacy ran it through [facility] [facility] rx at $19.77 per month. Asked pharmacist if they would be notified what mg would be covered and she indicated that they never receive that information. Treasure Sanchez MA * Telephone Encounter - Scot Blank MD - 04/27/2022 12:44 PM EDT [facility] [place] to see if a script was picked up by patient for Ambien CR 12.5 mg that was sent in on 03/27/2022. If so how much did it cost? * Telephone Encounter - Sangita Ron RN - 04/27/2022 9:58 AM EDT Patient reports insurance will not cover the 12.5 mg dose of ambien, but will cover the 10 mg if doctor can write Rx. Pended what was available to pend. No ambien CR on list of choices. Also needs duration added. Last ov w/pcp 02-12-22. documented in this encounterWood [facility] Hospital09-29-2022 Instructions* Patient Instructions* Maciej Kevin - 04/09/2022 11:41 AM EDT Powerstep Original Full length. Can purchase at [employer] here in [place], [employer] in [place] or [place]. Also can find in [place] in [facility]. Powersteps can also be purchased online, starting around $25.00 If you have a metatarsal or dancer pad for your feet apply the pad directly to the insole so you can interchange between your shoes. Find a shoe with a removable insole and take this out and replace with your powerstep insole. Always bring powersteps with you when shopping for shoes so that you can make sure that everything fits well together Will call in cream for the fibroma of left foot documented in this encounterWood [facility] Hospital09-29-2022 History of Present illness Narrative* Maciej Brown - 04/09/2022 11:35 AM EDT Initial Podiatric Office Visit: Chief Complaint: This 72 year old female who presents with chief complaint:painful lump on left foot HPI Patient presents to clinic for evaluation of left foot. Patient complains of painful lump on the bottom of left foot, just proximal to the first metatarsalhead Patient states the lump has been present for about 2 weeks. She states that the lump is painful at times and can cause her toes to become numb. Patient has not tried anything for the pain. PAIN EVALUATION 04/09/2022 1113 Pain Level: 3 Pain Location: Foot-Left Description: Numbness Duration Amount of Time: 1.5 Duration Units: Weeks Frequency: Intermittent Intervention/Comfort measure: Reposition;Relaxation Hemoglobin A1C (%) Date Value 11/18/2021 5.6 05/06/2021 5.7 09/19/2020 5.7 02/21/2020 5.4 08/25/2019 5.5 01/13/2019 5.1 PCP: Scot Blank MD PAST MEDICAL HISTORY Diagnosis Date Abnormal computed tomography angiography (CTA) 01/03/2019 right upper ICA with abnormality, consult to vascular 12/2018 Acute meniscal tear of left knee 04/13/2019 Advance directive discussed with patient 02/12/2022 Discussed 02/2022 Anxiety and depression 09/27/2020 Arthritis of left knee 02/19/2019 Bilateral carotid artery stenosis 01/03/2019 US: 12/2018 20-40% tatyana Chronic bilateral low back pain 01/01/2016 Seen [facility] Chronic pain of both ankles 09/27/2020 Chronic pain of left knee 09/27/2020 Chronic pain of right knee 09/30/2021 Sees [facility] Current use of proton pump inhibitor 08/25/2019 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 rojas Hiatal hernia 07/22/2016 Left hip pain 09/14/[address] [place] [address] Xander Martinez Left lateral abdominal pain 02/15/2019 Mid quadrant, chronic and paroxysmal. 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 Linn Mixed hyperlipidemia 11/20/2009 Mixed incontinence 06/27/[address] Queen Obesity, Class I, BMI 30-34.9 06/15/2019 Palpitations 08/25/2019 Primary insomnia 07/22/2016 PUD (peptic ulcer disease) 03/13/2016 Hx of ulcer 2018 and two again in 10/2020. No NSAID's (aspirin held 10/2020) Senile osteoporosis 01/05/2006 Clinical Team Manager following (Dr. Dobson) Simple cyst of breast 11/2009 Left retroareolar Unspecified constipation Current Outpatient Medications Medication Sig Zolpidem (AMBIEN CR) 12.5 mg CR tablet Take 1 tablet by mouth at bedtime as needed for sedation forup to [address] (PROTONIX) 20 mg tablet Take 1 tablet by mouth twice daily as needed. QUEtiapine (SEROQUEL) 25 mg tablet Take 1 tablet by mouth twice daily. loratadine (CLARITIN) 10 mg tablet Take 1 tablet by mouth once daily. albuterol HFA (VENTOLIN HFA) 90 mcg/actuation inhaler Inhale 2 Puffs as instructed every 4 hours asneeded. carboxymethylcellulose sodium (REFRESH OPHTHALMIC) Use in eyes. budesonide (PULMICORT) 0.25 mg/2 mL nebulizer solution USE 2 ML VIA NEBULIZER TWICE DAILY. DX: MILDPERSISTENT ASTHMA J45.21 Cholecalciferol, Vitamin D3, 5,000 unit cap Take 1 capsule by mouth once daily. (Patient not taking: No sig reported) POLYETHYLENE GLYCOL 3350 (MIRALAX ORAL) Take 1 Packet by mouth as needed. (Patient not taking: No sig reported) No current facility-administered medications for this visit. ALLERGIES Allergen Reactions Morphine GI Upset nausea Nsaids (Non-Steroid* Other: See Comments Hx of stomach ulcers Advair Diskus [Flut* Intolerance Hurts throat Bentyl [Dicyclomine* Unknown Celebrex [Celecoxib] GI Upset Dicyclomine Other: See Comments Dry mouth, blurred vision, loss of taste Estrace [Estradiol] Itching Evista [Raloxifene * Itching Macrobid [Nitrofura* Other: See Comments Hair loss Medrol [Methylpredn* Other: See Comments Dry mouth, sore throat. Mobic [Meloxicam] Intolerance Oxycontin [Oxycodon* Itching Penicillins Itching Prednisone Rash Uncertain. But did ok in 2017 Prozac [Fluoxetine * Unknown Sulfamethizole GI Upset Symax-Sl [Hyoscyami* Unknown PAST SURGICAL HISTORY Procedure Laterality Date APPENDECTOMY ARTHRS KNE SURG W/MENISCECTOMY MED/LAT W/SHVG Left 06/23/2019 Left knee medial and lateral menisectomies, medial and PF chondroplasties BREAST BIOPSY Left 2002 CARDIAC CATH 2003 COLONOSCOPY FLX DX W/COLLJ SPEC WHEN PFRMD 05/22/2019 Colonoscopy COLPOPEXY VAGINAL EXTRAPERITONEAL APPROACH 02/2013 repair of rectal and vaginal prolapse COLSC FLX W/RMVL OF TUMOR POLYP LESION SNARE TQ 01/28/2016 repeat 10 yrs EGD 10/16/2020 2 cratered gastric ulcers; Dr. Guillermo EGD TRANSORAL BIOPSY SINGLE/MULTIPLE 01/24/2007 EGD TRANSORAL BIOPSY SINGLE/MULTIPLE 01/28/2016 ESOPHAGEAL MOTILITY STUDY W/INTERP&RPT 04/29/2016 ESOPHAGOGASTRODUODENOSCOPY TRANSORAL DIAGNOSTIC 05/22/2005 EGD H-pylori negative ESOPHAGOGASTRODUODENOSCOPY TRANSORAL DIAGNOSTIC 03/02/2016 ESOPHAGOGASTRODUODENOSCOPY TRANSORAL DIAGNOSTIC 05/22/2019 EGD ESOPHAGOGASTRODUODENOSCOPY TRANSORAL DIAGNOSTIC 12/10/2020 healed ulcers; fundoplication intact; Dr. Guillermo GASTROESOPHAG REFLX TEST W/TELEMTRY PH ELTRD 03/02/2016 48 hour ph probe HERNIA REPAIR HX 1971 & 1973 herniorrhaphy, umbilical, right inguinal . PAST SURGICAL HISTORY OF 01/2005 heart catheterization PAST SURGICAL HISTORY OF 11/03/2004 left breast bx PAST SURGICAL HISTORY OF D & C, multiple PAST SURGICAL HISTORY OF Right 1990 carpal tunnel release PAST SURGICAL HISTORY OF Right arm surgery, ulnar nerve decompression X7 PAST SURGICAL HISTORY OF 05/2009 ganglion cyst removed right wrist PAST SURGICAL HISTORY OF 03/02/2016 pH probe PAST SURGICAL HISTORY OF Left 2002 carpal tunnel release PAST SURGICAL HISTORY OF 02/11/2017 laproscopic Walter Fundoplication.(Dr. Rojas [facility]) PAST SURGICAL HISTORY OF Right 12/2021 Tx of meniscus tear and Fx RECONSTRUCT VAGINAL WALL WITH MESH 04/2015 REMOVE CATARACT, INSERT LENS,EX 02/28/2009 Both Eyes REMV CATARACT EXTRACAP,INSERT LENS Bilateral RETROARC BLADDER SLING [id number] 09/03/2015 retroarc tension free vaginal sling TONSILLECTOMY HX 1956 TOTAL ABDOM HYSTERECTOMY 1989 VENOGRAM UNILATERAL 04/2020 groin FAMILY HISTORY Problem Relation Age of Onset Heart Mother Diabetes Mother Cancer Father base of skull other (parkinsons) Father Thyroid Sister Breast Cancer Sister other (hepatitis) Sister @62yrs of age/Liver Problems Thyroid Daughter Thyroid Daughter Cervical Cancer Daughter No Ocular Disease No Family History Social History Tobacco Use Smoking status: Never Smokeless tobacco: Never Tobacco comments: Father smoked occasionally in childhood home. Spouse smoked in home until 4 years ago. Vaping Use Vaping Use: Never used Substance Use Topics Alcohol use: No Drug use: No REVIEW OF SYSTEMS GENERAL: Negative for Malaise, significant weight loss, fever RESPIRATORY: Negative for cough, wheezing and shortness of breath CARDIOVASCULAR: Negative for chest pain, leg swelling and palpitations GI: Negative for abdominal discomfort, blood in stools or black stools and change in bowel habits : Negative for dysuria, frequency and incontinence MUSCULOSKELETAL: Negative for joint pain or swelling, back pain, and muscle pain. SKIN: Negative for lesions, rash, and itching. HEMATOLOGY/LYMPHOLOGY Negative for prolonged bleeding, bruising easily, and swollen nodes. ENDOCRINE: Negative for cold or heat intolerance, polyuria, polydipsia and goiter. NEURO: negative Physical Exam: Constitutional: Pt is a well developed 72 year old female who is alert, oriented and cooperative Eyes: Following during examination. No redness or drainage. Respiratory: RR normal and nonlabored. Even breathing. No evidence of distress or shortness of breath. Psychology: Patient is engaged during conversation. Normal affect and mood. Does not appear depressed or anxious during encounter. Vascular: Dorsalis pedis and posterior tibial pulses palpable as b/l Capillary Fill time < 5 seconds to digits 1-5 b/l Skin temperature warm to warm proximal to distal b/l Hair growth present to digits Neurological: intact light touch/epicritic sensation b/l intact protective sensation no significant neurological deficits Dermatological: Nails 1-5 b/l appear normal. Webspaces clean and dry 1-4 b/l. Skin appears well hydrated and supple. good color, texture, turgor. No open lesions present. No callosities present. Musculoskeletal/Orthopaedic: Patient has pain to palpation of left plantar medial arch just distal to the 1st metatarsal head. 3mm fibroma is noted. Foot type is neutral structurally AJ ROM is full with knee extended and flexed 1st MPJ is full when loaded and no pain or crepitus are noted with ROM. MTJ, STJ are full and free of pain and crepitus. +5/5 muscle strength dorsiflexion, plantarflexion, inversion, eversion b/l Radiographs: 3 views left foot ordered April 09, 2022: I have personally reviewed and interpreted these XR myself: no acute fracture. 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 History and physical examination performed. 2. XR reviewed with patient and interpreted today. Patient has foreing body in subcutaneous tissue.Likely of chronic duration. Discussed monitoring vs removal. She is not really interested in surgery. She will monitor. 3. She has fibroma of left foot. I do not feel this is associated with the foreign body. Discussed options not limited to inserts, removal, injection or use of topical cream. She would like to try insert and topical cream. If pain fails to improve, consider other options. Maciej Brown DPM Podiatry [address] [facility] [id number] Dept: [phone] Dept documented [facility] History of Present illness Narrative* RT Rizwan(R) - 04/09/2022 11:00 AM EDT Radiology Service Progress Note PATIENT NAME: Nora Camarillo DATE OF SERVICE: April 09, 2022 TIME: 10:59 AM PATIENT IDENTITY VERIFICATION COMPLETED USING TWO (2) IDENTIFIERS: Name and Date of confirmedby patient verbally. FALL SCREENING: Has the patient had 2 falls in the last year or 1 fall with injury or currently using an Ambulatory Assistive Device (Walker, Cane, Wheelchair, Crutches, etc.)? No PATIENT GENDER DATA: Female. status: : No status: NO. PATIENT RELEVANT IMPLANT DATA REVIEWED: Yes RADIOLOGY DEPARTMENT: General X-ray: Exam(s) Completed: Lower Extremity X- Ray(s): Foot, Left and Wt. Bearing PERIPHERAL IV DATA: Not applicable SIGNED BY: RT Rizwan(R) April 09, 2022 10:59 AM documented in this encounterWood [facility]09-20-2022 Miscellaneous Notes* Telephone Encounter - Charley Harman [facility] - 03/31/2022 8:55 AM EDT Patient notified and verbalized understanding Charley Harman C[facility] * Telephone Encounter - Scot Blank MD - 03/27/2022 2:21 PM EDT Let patient know new script sent. The following approved medication requests have been transmitted electronically. Requested Prescriptions Signed Prescriptions Disp Refills Zolpidem (AMBIEN CR) 12.5 mg CR tablet 30 tablet 0 Sig: Take 1 tablet by mouth at bedtime as needed for sedation for up to 30 days. Authorizing Provider: SCOT BLANK MD * Telephone Encounter - Zoraida Julien RN - 03/27/2022 1:58 PM EDT Patient calls back in and reports that she will try the Ambien CR 12.5 mg prescription and asking if provider would resend to pharmacy since it was cancelled. Pended order. Patient will reschedule appointment if provider agrees to reordering the Ambien CR 12.5 mg prescription. Zoraida Julien RN * Telephone Encounter - Qasim Patterson LPN - 03/27/2022 12:44 PM EDT Left message for pt to contact office. Qasim Patterson LPN * Telephone Encounter - Scot Blank MD - 03/27/2022 12:18 PM EDT Advise patient that we discussed with her on 03/03/2022 that we were changing her from Ambien 5 mg since it did not working for her to Ambien cr 12.5 mg. It's a different dose and a different type of Ambien since it releases at two times and not all at once. So it will cost different. She was also told at that time that with the new strength she would no longer be taking the Ambien 5 mg. So not sure how she wants to proceed but taking the Ambien 5 mg would not be an option if it didn't work for her. * Telephone Encounter - Treasure Sanchez MA - 03/27/2022 11:00 AM EDT Contacted patient to R/S her appointment due to provider being out of the office. Patient indicated that went to the pharmacy and the ambien was $10 more than what she had gotten before so she didn't get the medication. She didn't know why. I indicated that it was a higher dose because they 5 mg was not working per the notes and she didn't know she was getting a higher dose. She said she is out of the 5 mg tablets of ambien and nothing to take for her sleep. We didn't reschedule her appointment to follow up on sleep because she never started the new medication. Treasure Sanchez MA documented in this encounterWood [facility]09-07-2022 Miscellaneous Notes* Telephone Encounter - Treasure Sanchez MA - 03/18/2022 3:34 PM EDT Patient notified voiced understanding. Treasure Sanchez MA * Telephone Encounter - Scot Blank MD - 03/18/2022 2:58 PM EDT [facility] The following approved medication requests have been transmitted electronically. Requested Prescriptions Signed Prescriptions Disp Refills Zolpidem (AMBIEN CR) 12.5 mg CR tablet 30 tablet 0 Sig: Take 1 tablet by mouth at bedtime as needed for sedation for up to 30 days. Authorizing Provider: SCOT BLANK MD * Telephone Encounter - Treasure Sanchez MA - 03/18/2022 2:19 PM EDT Contacted pharmacy and prescription was on hold and had not been picked up. Cancelled prescription per provider instructions. Treasure Sanchez MA * Telephone Encounter - Scot Blank MD - 03/18/2022 1:25 PM EDT Please check with [facility] pharmacy at [phone] to see if patient picked up script sent on 03/03/2022. If not have them cancel it. Then I can send a new script. * Telephone Encounter - Melyssa Fitzgerald - 03/18/2022 11:17 AM EDT Patient said that rx for Ambien that was sent on 03/03/22 was sent to the wrong pharmacy. Wants to know if it can be switched to [facility]. documented in this encounterWood [facility]08-23-2022 Miscellaneous Notes* Telephone Encounter - Susanne Raymundo LPN - 03/03/2022 11:13 AM EDT Patient notified of below and verbalized understanding to all instructions. Susanne Raymundo LPN * Telephone Encounter - Scot Blank MD - 03/03/2022 11:05 AM EDT Let patient know with only being on the Seroquel at 25 mg there is no need to wean off. Can just stop it. If taking the Ambien CR she will not be on the ambien as well and should not take them together. The following approved medication requests have been transmitted electronically. Requested Prescriptions Signed Prescriptions Disp Refills Zolpidem (AMBIEN CR) 12.5 mg CR tablet 30 tablet 0 Sig: Take 1 tablet by mouth at bedtime as needed for sedation for up to 30 days. Authorizing Provider: SCOT BLANK MD PDMP website checked and validated. All prescriptions have been APPROPRIATELY filled. No suspiciousactivity was identified. 03/03/2022 by Scot Blank MD * Telephone Encounter - Lorenza Howe Ma - 03/03/2022 8:41 AM EDT Spoke to patient who is willing to try Ambien CR. Will patient take current Ambien and than Ambien CR or just Ambien CR? Also does she need to ween off Seroquel? [facility] * Telephone Encounter - Scot Blank MD - 03/02/2022 4:54 PM EDT We can try seeing if her insurance will cover Ambien CR which give an initial dose to fall asleep and then a second release at 3-4 hrs to help maintain sleep? If see agrees then she should keep the appt in 6 weeks as is. * Telephone Encounter - Treasure Sanchez MA - 03/02/2022 2:07 PM EDT Contacted patient and gave PCP recommendations. Patient indicated that she will just finish the medication and will just go back to her Ambien. She indicated that if she is not going to stay on the new medication for very long she probably doesn't need the appointment to follow up. Treasure Sanchez MA * Telephone Encounter - Scot Blank MD - 03/02/2022 1:03 PM EDT Let patient know I can increase the Seroquel but this could make the constipation worse. The other option is a trial of Trazodone? * Telephone Encounter - Dorita Littlejohn RN - 02/27/2022 11:58 AM EDT Pt called in reports provider started her on Seroquel a couple weeks ago and had told her to call in with any side effect and to see how it was working. Pt reports she only takes it at bedtime not twice a day because it makes her too tired and she wants to be awake during the day. She reports the first three night she took it she slept all night. Now she says it's just like the Ambien where she sleeps a couple hours then she's up. She also reports it binds her up and she has been taking a laxative. documented in this encounterWood [facility]08-10-2022 Miscellaneous Notes* Telephone Encounter - Cherri Ramos RN - 02/18/2022 2:51 PM EDT Spoke with patient. Given message from provider's office. Patient verbalizes understanding. Cherri Ramos RN * Telephone Encounter - Treasure Sanchez MA - 02/18/2022 2:21 PM EDT Left message for patient to contact office. Treasure Sanchez MA * Telephone Encounter - Scot Blank MD - 02/18/2022 2:15 PM EDT Let patient know US of neck arteries shows no increase in narrowing. documented in this encounterWood [facility]08-04-2022 Instructions* Patient Instructions* Scot Blank MD - 02/12/2022 11:36 AM EDT Please get labs done on or after 07/31/2022 prior to your next visit. documented in this encounterWood [facility]08-04-2022 History of Present illness Narrative* Scot Blank MD - 02/12/2022 10:20 AM EDT Medicare Yearly Visit Medical B eligibilty date 06/11/2013 Date of last exam 09/27/2020 PAST MEDICAL HISTORY PAST MEDICAL HISTORY Diagnosis Date Allergic rhinitis, cause unspecified Diaphragmatic hernia without mention of obstruction or gangrene Diverticulosis of colon (without mention of hemorrhage) Esophageal reflux Esophagitis, unspecified Insomnia Simple cyst of breast 11/2009 Left retroareolar Unspecified asthma(493.90) Unspecified constipation PAST SURGICAL HISTORY PAST SURGICAL HISTORY Procedure Laterality Date APPENDECTOMY BREAST BIOPSY Left 2002 CARDIAC CATH 2004 COLONOS W/REM POLYP SNARE 01/28/16 EGD W/O BRSH SPECIMEN W/BX 01/24/07 EGD W/O BRSH SPECIMEN W/BX 01/28/16 EGD W/O OR W/BRUSH/WASH 05/22/05 EGD H-pylori negative EGD W/O OR W/BRUSH/WASH 03/02/2016 G-ESOPH REFLX TST W/ELECTROD 03/02/2016 48 hour ph probe HERNIA REPAIR HX 1971 & 1973 herniorrhaphy, umbilical, right inguinal . MANOMETRY ESOPHAGEAL 04/29/2016 PAST SURGICAL HISTORY OF 01/13 heart catheterization PAST SURGICAL HISTORY OF 11/03/04 left breast bx PAST SURGICAL HISTORY OF D & C, multiple PAST SURGICAL HISTORY OF Right 1990 carpal tunnel release PAST SURGICAL HISTORY OF Right arm surgery, ulnar nerve decompression X7 PAST SURGICAL HISTORY OF 05/20 ganglion cyst removed right wrist PAST SURGICAL HISTORY OF 03/02/16 pH probe PAST SURGICAL HISTORY OF Left 2002 carpal tunnel release PAST SURGICAL HISTORY OF 02/11/2017 laproscopic Walter Fundoplication.(Dr. Rojas [facility]) RECONSTRUCT VAGINAL WALL WITH MESH 04/2015 REMOVE CATARACT, INSERT LENS,EX 02/28/2009 Both Eyes REPR VAGINAL PROLAPSE,SACROSP LIG 02/2013 repair of rectal and vaginal prolapse RETROARC BLADDER SLING [id number] 09/03/15 retroarc tension free vaginal sling TONSILLECTOMY HX 195 TOTAL ABDOM HYSTERECTOMY 1988 Morphine; Advair Diskus [Fluticasone-Salmeterol]; Bentyl [Dicyclomine Hcl]; Celebrex [Celecoxib]; Dicyclomine; Estrace [Estradiol]; Evista [Raloxifene Hcl]; Macrobid [Nitrofurantoin Monohyd/M-Cryst];Medrol [Methylprednisolone]; Oxycontin [Oxycodone Hcl]; Penicillins; Prednisone; Prozac [FluoxetineHcl]; Symax-Sl [Hyoscyamine Sulfate] Medications reviewed: Yes FAMILY HISTORY FAMILY HISTORY Problem Relation Age of Onset Heart Mother Diabetes Mother Cancer Father base of skull parkinsons [OTHER] Father Breast Cancer Sister hepatitis [OTHER] Sister @62yrs of age/Liver Problems Thyroid Daughter Thyroid Daughter Cervical Cancer Daughter SOCIAL HISTORY: SOCIAL HISTORY Social History Marital status: Unknown Spouse name: Mati Years of education: 11 Number of children: 3 Occupational History 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 Social History Main Topics Smoking status: Never Smoker Smokeless tobacco: Never Used Comment: Father smoked occasionally in childhood home. Spouse smoked in home until 4 years ago. Alcohol use: No Drug use: No Sexual activity: Yes Partners with: Male control/protection: Surgical Comment: Pt has had a Hysterectomy Other Topics Concern Weight Concern No Social History Narrative 3 daughters grown Nora works out [employer]. She watches her diet for sodium, low fat and low cholesterol all of the time. List of current specialists seen: Dr. Johnson, End of Live Planning discussed including patients advanced directive wishes: Yes I am willing to follow Nora's advanced directives. Depression screen Depression Screening 01/31/2016 07/22/2017 07/26/2018 02/12/2022 PHQ-2 Score 0 2 2 4 PHQ-9 Score - - - 13 Depression screening tool completed and reviewed. Based on score and interview, patient is already diagnosed with depression. Screening tool discussed with patient, and I recommended starting medication. Functional Ability/Safety Screen 1. Was the patient's timed Up and Go test unsteady or longer than 30 seconds? No 2. Does the patient need help with the phone, transportation, shopping,preparing meals, housework, laundry, medications or managing money? No 3. Does your home have rugs in the hallway, lack of grab bars in the bathroom, lack of handrails onthe stairs or have poor lighting? No Hearing Evaluation: normal PHYSICAL EXAM BP 140/80 (BP Site: Left Arm, BP Position: Sitting, BP Cuff Size: Large Adult) Pulse 70 Resp 16 Ht 161.9 cm (5' 3.75) Wt 83.9 kg (185 lb) BMI 32.00 kg/m Alert and oriented X 3: YES Body mass index is 32.00 kg/m . See below ASSESSMENT/PLAN: 71 year old female The following prevention plan was discussed during the office visit and provided to the patient: See below Scot Blank MD Chief Complaint Patient presents with: Medicare Wellness Exam HPI Nora Camarillo is a 71 year old female who presents here today for extensive Visit. Patient with history of HLP, Asthma, PUD, GERD, Tremor, chronic knee pain, insomnia, osteoporosis, back pain, anxiety/depression and those as below. Patient indicated that she is having issues with sleep the ambien doesn't seem to be helping as well she even double up her medication and still only sleeping about 3-4 hours and then back up. Also has notice more heartburn. Needs refill on her medication. Has a Hx of PUD. Thinks Last EGD was about a year ago. Patient indicated that she has balance issues; feels weakness right leg. She has told her ortho andwas told to follow up with PCP. Past medical history, appointments, medications, allergies reviewed. Previous Medical History PAST MEDICAL HISTORY Diagnosis Date Abnormal computed tomography angiography (CTA) 01/03/2019 right upper ICA with abnormality, consult to vascular 12/2018 Acute meniscal tear of left knee 04/13/2019 Anxiety and depression 09/27/2020 Arthritis of left knee 02/19/2019 Bilateral carotid artery stenosis 01/03/2019 US: 12/2018 20-40% tatyana Chronic bilateral low back pain 01/01/2016 Seen [facility] Current use of proton pump inhibitor 08/25/2019 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 rojas Hiatal hernia 07/22/2016 Left hip pain 09/14/[address] [place] [facility] [address] Xander Martinez Left lateral abdominal pain 02/15/2019 Mid quadrant, chronic and paroxysmal. Left leg swelling 02/27/2020 Low back pain 09/14/2017 May-Thurner syndrome 09/27/2020 S/P stent to left groin area seeing Vascular Mild persistent asthma without complication 07/22/[address] Linn Mixed hyperlipidemia 11/20/2009 Obesity, Class I, BMI 30-34.9 06/15/2019 Primary insomnia 07/22/2016 PUD (peptic ulcer disease) 03/13/2016 Hx of ulcer 2018 and two again in 10/2020. No NSAID's (aspirin held 10/2020) Senile osteoporosis 01/05/2006 Clinical Team Manager following (Dr. Dobson) Simple cyst of breast 11/2009 Left retroareolar Unspecified constipation Previous Surgical History PAST SURGICAL HISTORY Procedure Laterality Date APPENDECTOMY ARTHRS KNE SURG W/MENISCECTOMY MED/LAT W/SHVG Left 06/23/2019 Left knee medial and lateral menisectomies, medial and PF chondroplasties BREAST BIOPSY Left 2002 CARDIAC CATH 2004 COLONOSCOPY FLX DX W/COLLJ SPEC WHEN PFRMD 05/22/2019 Colonoscopy COLPOPEXY VAGINAL EXTRAPERITONEAL APPROACH 02/2013 repair of rectal and vaginal prolapse COLSC FLX W/RMVL OF TUMOR POLYP LESION SNARE TQ 01/28/2016 repeat 10 yrs EGD 10/16/2020 2 cratered gastric ulcers; Dr. Guillermo EGD TRANSORAL BIOPSY SINGLE/MULTIPLE 01/24/2007 EGD TRANSORAL BIOPSY SINGLE/MULTIPLE 01/28/2016 ESOPHAGEAL MOTILITY STUDY W/INTERP&RPT 04/29/2016 ESOPHAGOGASTRODUODENOSCOPY TRANSORAL DIAGNOSTIC 05/22/2005 EGD H-pylori negative ESOPHAGOGASTRODUODENOSCOPY TRANSORAL DIAGNOSTIC 03/02/2016 ESOPHAGOGASTRODUODENOSCOPY TRANSORAL DIAGNOSTIC 05/22/2019 EGD ESOPHAGOGASTRODUODENOSCOPY TRANSORAL DIAGNOSTIC 12/10/2020 healed ulcers; fundoplication intact; Dr. Guillermo GASTROESOPHAG REFLX TEST W/TELEMTRY PH ELTRD 03/02/2016 48 hour ph probe HERNIA REPAIR HX 1971 & 1973 herniorrhaphy, umbilical, right inguinal . PAST SURGICAL HISTORY OF 01/2005 heart catheterization PAST SURGICAL HISTORY OF 11/03/2004 left breast bx PAST SURGICAL HISTORY OF D & C, multiple PAST SURGICAL HISTORY OF Right 1990 carpal tunnel release PAST SURGICAL HISTORY OF Right arm surgery, ulnar nerve decompression X7 PAST SURGICAL HISTORY OF 05/2009 ganglion cyst removed right wrist PAST SURGICAL HISTORY OF 03/02/2016 pH probe PAST SURGICAL HISTORY OF Left 2002 carpal tunnel release PAST SURGICAL HISTORY OF 02/11/2017 laproscopic Walter Fundoplication.(Dr. Rojas [facility]) RECONSTRUCT VAGINAL WALL WITH MESH 04/2015 REMOVE CATARACT, INSERT LENS,EX 02/28/2009 Both Eyes REMV CATARACT EXTRACAP,INSERT LENS Bilateral RETROARC BLADDER SLING [id number] 09/03/2015 retroarc tension free vaginal sling TONSILLECTOMY HX 195 TOTAL ABDOM HYSTERECTOMY 1988 VENOGRAM UNILATERAL 04/2020 groin Family History FAMILY HISTORY Problem Relation Age of Onset Heart Mother Diabetes Mother Cancer Father base of skull other (parkinsons) Father Thyroid Sister Breast Cancer Sister other (hepatitis) Sister @62yrs of age/Liver Problems Thyroid Daughter Thyroid Daughter Cervical Cancer Daughter No Ocular Disease No Family History Patient Allergies ALLERGIES Allergen Reactions Morphine GI Upset nausea Nsaids (Non-Steroid* Other: See Comments Hx of stomach ulcers Advair Diskus [Flut* Intolerance Hurts throat Bentyl [Dicyclomine* Unknown Celebrex [Celecoxib] GI Upset Dicyclomine Other: See Comments Dry mouth, blurred vision, loss of taste Estrace [Estradiol] Itching Evista [Raloxifene * Itching Macrobid [Nitrofura* Other: See Comments Hair loss Medrol [Methylpredn* Other: See Comments Dry mouth, sore throat. Mobic [Meloxicam] Intolerance Oxycontin [Oxycodon* Itching Penicillins Itching Prednisone Rash Uncertain. But did ok in 2017 Prozac [Fluoxetine * Unknown Sulfamethizole GI Upset Symax-Sl [Hyoscyami* Unknown Current Medications Current Outpatient Medications on File Prior to Visit Medication Sig ascorbic acid, vitamin C, (VITAMIN C) 500 mg tablet Take 500 mg by mouth once daily. zolpidem (AMBIEN) 5 mg tablet Take 1 tablet by mouth at bedtime as needed for up to 197 days. mupirocin (BACTROBAN) 2 % ointment Apply to affected area three times daily. predniSONE (DELTASONE) 20 mg tablet 2 tabs a day by mouth for the next 5 days (Patient not taking: Reported on 10/13/2021 ) Benzonatate 200 mg capsule Take 1 capsule by mouth three times daily as needed. albuterol HFA (VENTOLIN HFA) 90 mcg/actuation inhaler Inhale 2 Puffs as instructed every 4 hours asneeded. carboxymethylcellulose sodium (REFRESH OPHTHALMIC) Use in eyes. Lactobacillus acidophilus (FLORAJEN ACIDOPHILUS) 20 billion cell cap Take 1 capsule by mouth once daily. (Patient not taking: Reported on 04/11/2021 ) pantoprazole DR (PROTONIX) 20 mg tablet Take 1 tablet by mouth twice daily. (Patient taking differently: Take 20 mg by mouth twice daily as needed. ) sucralfate (CARAFATE) 1 gram tablet Take 1 g by mouth three times daily. (Patient not taking: Reported on 10/13/2021 ) budesonide (PULMICORT) 0.25 mg/2 mL nebulizer solution USE 2 ML VIA NEBULIZER TWICE DAILY. DX: MILDPERSISTENT ASTHMA J45.21 Cholecalciferol, Vitamin D3, 5,000 unit cap Take 1 capsule by mouth once daily. POLYETHYLENE GLYCOL 3350 (MIRALAX ORAL) Take 1 Packet by mouth as needed. (Patient not taking: Reported on 07/08/2021 ) No current facility-administered medications on file prior to visit. Social History Social History Tobacco Use Smoking status: Never Smoker Smokeless tobacco: Never Used Tobacco comment: Father smoked occasionally in childhood home. Spouse smoked in home until 4 years ago. Vaping Use Vaping Use: Never used Substance Use Topics Alcohol use: No Drug use: No Review of Symptoms REVIEW OF SYSTEMS GENERAL: No unintentional weight loss, malaise or fevers HEENT: Negative for frequent or significant headaches, No changes in hearing or vision, no nose bleeds or other nasal problems NECK: Negative for lumps, goiter, pain and significant neck swelling RESPIRATORY: Negative for cough, hemoptysis, occasional wheezing shortness of breath CARDIOVASCULAR: Negative for chest pain, leg swelling, hypertension, CHF or palpitations GI: No nausea, vomiting, or diarrhea, has been having increased epigastric discomfort and no blood : No history of dysuria, blood MUSCULOSKELETAL: continues with pain in her knees and low back. See HPI SKIN: Negative for lesions, rash, and itching PSYCH: patient not sleeping well. Low motivation and decreased interest. HEMATOLOGY/LYMPHOLOGY: Negative for prolonged bleeding, bruising easily or swollen nodes ENDOCRINE: Negative for cold or heat intolerance, polyuria, polydipsia and goiter NEURO: No history of headaches, syncope, paralysis, seizures or change in tremors EXAM: BP 140/80 (BP Site: Left Arm, BP Position: Sitting, BP Cuff Size: Large Adult) Pulse 70 Resp 16 Ht 161.9 cm (5' 3.75) Wt 83.9 kg (185 lb) BMI 32.00 kg/m BP 128/78 Pulse 70 Resp 16 Ht 161.9 cm (5' 3.75) Wt 83.9 kg (185 lb) BMI 32.00 kg/m Last 3 Encounter Wt Readings: Date: Wt: 02/12/2022 83.9 kg (185 lb) 09/22/2021 86.9 kg (191 lb 9.6 oz) 07/08/2021 85.3 kg (188 lb) General Appearance: Well appearing, alert, in no acute distress, well-hydrated, well nourished.. Skin: Skin color, texture, turgor normal, no suspicious rashes or lesions. Head: Normocephalic, no masses, lesions, tenderness or abnormalities. Eyes: Anicteric sclera. Pupils are equally round and reactive to light. Extraocular movements are intact. . Ears: External ears, TM's normal, canals clear. Neck: Supple, no adenopathy; thyroid symmetric, normal size, no bruits. Lungs: Lungs clear to auscultation. No wheezing, rhonchi, rales.. Heart: RRR without murmur, gallop, or rubs. No ectopy. Breast: Inspection negative. No nipple discharge or bleeding. No palpable mass and No skin changes or dimpling. Abdomen: Normal abdominal exam, Abdomen soft, non-tender. Bowel sounds normal. No masses, organomegaly. Extremities: No deformities, edema, skin discoloration, clubbing or cyanosis. Musculoskeletal: Muscular strength intact but weaker in the right knee with extension and right hipwith flexion., No joint swelling, deformity, or tenderness. Peripheral Pulses: Normal. Neurologic: Gait normal. Reflexes normal and symmetric. Sensation to light touch and crainal nerves2-12 intact.. Health Maintenance List DTAP,TDAP,TD(1 - Tdap) Never done COVID-19 VACCINE(3 - Booster for Moderna series) due on 03/11/2021 ADVANCE DIRECTIVE DISCUSSION Never done MAMMOGRAM due on 06/30/2022 ANNUAL PCP TEAM CHRONIC DISEASE VISIT due on 10/13/2022 DIABETES SCREEN due on 11/18/2024 LIPID SCREEN due on 11/18/2026 COLORECTAL CANCER SCREENING due on 05/22/2029 BONE DENSITY Completed SPIROMETRY Completed HEPATITIS C SCREENING Completed SHINGRIX VACCINE Completed PNEUMOCOCCAL: 65+ Completed INFLUENZA Discontinued Data reviewed Component Latest Ref Rng & Units 05/06/2021 11/18/2021 Protein, Total 6.3 - 8.0 g/dL 7.1 7.2 Albumin 3.9 - 4.9 g/dL 4.0 4.3 Calcium 8.5 - 10.2 mg/dL 9.0 9.1 Bilirubin, Total 0.2 - 1.3 mg/dL 0.5 0.4 Alkaline Phosphatase 34 - 123 U/L 90 90 AST 13 - 35 U/L 24 23 Glucose 74 - 99 mg/dL 100 (H) 98 BUN 7 - 21 mg/dL 11 17 Creatinine 0.58 - 0.96 mg/dL 0.59 0.69 Sodium 136 - 144 mmol/L 140 139 Potassium 3.7 - 5.1 mmol/L 4.6 4.1 Chloride 97 - 105 mmol/L 105 104 CO2 22 - 30 mmol/L 22 25 Anion Gap 9 - 18 mmol/L 13 10 ALT 7 - 38 U/L 24 19 eGFR- >60 eGFR-All Other Races . >60 eGFR >=60 mL/min/1.73m 93 Total Cholesterol, Nonfasting <200 mg/dL 147 199 Triglycerides, Nonfasting <150 mg/dL 67 73 HDL Cholesterol, Nonfasting >39 mg/dL 67 64 LDL Cholesterol, Nonfasting <100 mg/dL 67 120 (H) Non HDL Cholesterol, Nonfasting <130 mg/dL 80 135 (H) VLDL Cholesterol, Nonfasting <30 mg/dL 13 15 Total Chol/HDL Ratio, Nonfasting <5.10 mg/dL 2.19 3.11 LDL/HDL Ratio, Nonfasting <2.54 mg/dL 1.00 1.88 Hemoglobin A1C 4.3 - 5.6 % 5.7 (H) 5.6 Estimated Average Glucose mg/dL 117 114 TSH 0.270 - 4.200 mIU/L 1.270 Free T4 0.9 - 1.7 ng/dL 1.0 A/P ASSESSMENT/PLAN: 1. Medicare annual wellness visit, subsequent - ICD9: V70.0, ICD10: Z00.00 (primary diagnosis) - Counseled on healthy diet and regular exercise - Calcium intake with supplements or by diet of 1000 mg/day for under 50, 1200- 1500 mg/day for 50+ - Discussed need and benefit for weight loss. BMI 32.00 kg/(m^2) - Depression screening tool completed and reviewed with patient. Based on score and interview, patient is at risk for depression and recommended starting medication. Patient was not interested but was willing to try Seroquel in evening for sleep and hope this can help - Follow up for annual exam in one year 2. Mixed hyperlipidemia - ICD9: 272.2, ICD10: E78.2 - good control - Encouraged following a low fat, low cholesterol diet. - Discussed the benefits of regular aerobic exercise and weight loss. - Encouraged following a low carbohydrate, healthy oil intake diet. - Continue current therapy. 3. Elevated fasting blood sugar - ICD9: 790.21, ICD10: R73.01 - Improved with life style changes 4. Bilateral carotid artery stenosis - ICD9: 433.10, 433.30, ICD10: I65.23 Check - US CAROTID ARTERIES [facility] 5. Gastroesophageal reflux disease with esophagitis without hemorrhage - ICD9: 530.81, 530.10, ICD10: K21.00 - Continue treatment with protonix 20 mg twice a day as needed. - CONSULT TO GENERAL SURGERY: For anticipated EGD. 6. Left leg swelling - ICD9: 729.81, ICD10: M79.89 - None on exam today 7. PUD (peptic ulcer disease) - ICD9: 533.90, ICD10: K27.9 - CONSULT TO GENERAL SURGERY 8. Mild persistent asthma without complication - ICD9: 493.90, ICD10: J45.30 Mild persistent Asthma stable - Avoidance of triggers recommended 9. Anxiety and depression - ICD9: 300.00, 311, ICD10: F41.9, F32.A - Discussed Tx and initially not interested but was willing to try Seroquel before bed for sleep. Hope this will help with this as well. 10. Essential tremor - ICD9: 333.1, ICD10: G25.0 - Stable 11. 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 12. Obesity, Class I, BMI 30-34.9 - ICD9: 278.00, ICD10: E66.9 Weight decreasing - Behavioral intervention 13. Primary insomnia - ICD9: 307.42, ICD10: F51.01 - Will add on Seroquel 25 mg QHS. - Will continue the Ambien 5 mg QHS. Advised patient to never increase her meds on her own doing. 14. Mixed incontinence - ICD9: 788.33, ICD10: N39.46 - Stable no issues. 15. Chronic pain of right knee - ICD9: 719.46, 338.29, ICD10: M25.561, G89.29 - seeing ortho 16. Right leg weakness - ICD9: 729.89, ICD10: R29.898 - advised patient on getting PHYSICAL THERAPY and patient said she will contact [facility]. 17. Living will on file - ICD9: V49.89, ICD10: Z87.898 - On file 18. Advance directive discussed with patient - ICD9: V65.49, ICD10: Z71.89 - discussed Signed Prescriptions Disp Refills pantoprazole DR (PROTONIX) 20 mg tablet 60 tablet 6 Sig: Take 1 tablet by mouth twice daily as needed. KENAN: No QUEtiapine (SEROQUEL) 25 mg tablet 30 tablet 5 Sig: Take 1 tablet by mouth twice daily. loratadine (CLARITIN) 10 mg tablet 30 tablet 11 Sig: Take 1 tablet by mouth once daily. KENAN: No F/u 6 weeks insomnia and depression F/u 6 months routine check lipid and A1c prior I spent a total of 45 minutes on the date of the service which included preparing to see the patient, [id number] patient care, completing clinical documentation, performing a medically appropriate examination, counseling and educating the patient/family/caregiver and ordering medications, tests, or procedures. Scot Blank MD [facility] History of Present illness Narrative* Jaylin Combs PA-C - 10/13/2021 1:44 PM EDT 10/13/2021 Patient presents with: Recheck: pneumonia SUBJECTIVE: This is a 71 year old that is here today for f/u pneumonia. . Patient was seen on 09/22/2021 for COPD exacerbation. Was dx with pneumonia based on exam findings. Flu and covid negative Was given levaquin x10 day, prednisone and cough medication. Patient is feeling better. Report she only took 7 days of the levaquin due to SE. Denies cough or shortness of breath. PAST MEDICAL HISTORY Diagnosis Date Abnormal computed tomography angiography (CTA) 01/03/2019 right upper ICA with abnormality, consult to vascular 12/2018 Acute meniscal tear of left knee 04/13/2019 Anxiety and depression 09/27/2020 Arthritis of left knee 02/19/2019 Bilateral carotid artery stenosis 01/03/2019 US: 12/2018 20-40% tatyana Chronic bilateral low back pain 01/01/2016 Seen [facility] Current use of proton pump inhibitor 08/25/2019 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 rojas Hiatal hernia 07/22/2016 Left hip pain 09/14/[address] [facility] [address] Xander Martinez Left lateral abdominal pain 02/15/2019 Mid quadrant, chronic and paroxysmal. Left leg swelling 02/27/2020 Low back pain 09/14/2017 May-Thurner syndrome 09/27/2020 S/P stent to left groin area seeing Vascular Mild persistent asthma without complication 07/22/[address] Linn Mixed hyperlipidemia 11/20/2009 Obesity, Class I, BMI 30-34.9 06/15/2019 Primary insomnia 07/22/2016 PUD (peptic ulcer disease) 03/13/2016 Hx of ulcer 2018 and two again in 10/2020. No NSAID's (aspirin held 10/2020) Senile osteoporosis 01/05/2006 Clinical Team Manager following (Dr. Dobson) Simple cyst of breast 11/2009 Left retroareolar Unspecified constipation ALLERGIES Morphine, Nsaids (Non-Steroidal Anti-Inflammatory Drug), Advair Diskus [Fluticasone Propion-Salmeterol], Bentyl [Dicyclomine Hcl], Celebrex [Celecoxib], Dicyclomine, Estrace [Estradiol], Evista [Raloxifene Hcl], Macrobid [Nitrofurantoin Monohyd/M-Cryst], Medrol [Methylprednisolone], Mobic[Meloxicam], Oxycontin [Oxycodone Hcl], Penicillins, Prednisone, Prozac [Fluoxetine Hcl], Sulfamethizole, and Symax-Sl [Hyoscyamine Sulfate] MEDICATIONS Current Outpatient Medications Medication Sig ascorbic acid, vitamin C, (VITAMIN C) 500 mg tablet Take 500 mg by mouth once daily. Benzonatate 200 mg capsule Take 1 capsule by mouth three times daily as needed. albuterol HFA (VENTOLIN HFA) 90 mcg/actuation inhaler Inhale 2 Puffs as instructed every 4 hours asneeded. zolpidem (AMBIEN) 5 mg tablet Take 1 tablet by mouth at bedtime as needed for up to 197 days. carboxymethylcellulose sodium (REFRESH OPHTHALMIC) Use in eyes. pantoprazole DR (PROTONIX) 20 mg tablet Take 1 tablet by mouth twice daily. (Patient taking differently: Take 20 mg by mouth twice daily as needed. ) budesonide (PULMICORT) 0.25 mg/2 mL nebulizer solution USE 2 ML VIA NEBULIZER TWICE DAILY. DX: MILDPERSISTENT ASTHMA J45.21 Cholecalciferol, Vitamin D3, 5,000 unit cap Take 1 capsule by mouth once daily. predniSONE (DELTASONE) 20 mg tablet 2 tabs a day by mouth for the next 5 days (Patient not taking: Reported on 10/13/2021 ) Lactobacillus acidophilus (FLORAJEN ACIDOPHILUS) 20 billion cell cap Take 1 capsule by mouth once daily. (Patient not taking: Reported on 04/11/2021 ) sucralfate (CARAFATE) 1 gram tablet Take 1 g by mouth three times daily. (Patient not taking: Reported on 10/13/2021 ) POLYETHYLENE GLYCOL 3350 (MIRALAX ORAL) Take 1 Packet by mouth as needed. (Patient not taking: Reported on 07/08/2021 ) No current facility-administered medications for this visit. SOCIAL HISTORY Social History Tobacco Use Smoking status: Never Smoker Smokeless tobacco: Never Used Tobacco comment: Father smoked occasionally in childhood home. Spouse smoked in home until 4 years ago. Vaping Use Vaping Use: Never used Substance Use Topics Alcohol use: No Drug use: No REVIEW OF SYSTEMS All other reviewed and negative other than HPI. OBJECTIVE: BP 130/78 (BP Site: Left Arm, BP Position: Sitting, BP Cuff Size: Large Adult) Pulse 84 Temp 36.6 C (97.9 F) Resp 18 SpO2 98% APPEARANCE Well appearing, alert, in no acute distress, well-hydrated, well nourished. NECK Supple, no adenopathy; thyroid symmetric, normal size, no bruits HEART RRR with normal S1 and S2, no murmurs, no gallops, no JVD appreciated LUNG clear to auscultation ASSESSMENT/PLAN: 1. Bacterial pneumonia - ICD9: 482.9, ICD10: J15.9 (primary diagnosis) Resolved F/u prn 2. Mild persistent asthma without complication - ICD9: 493.90, ICD10: J45.30 Mild intermittent Asthma stable - Avoidance of triggers recommended 3. Primary insomnia - ICD9: 307.42, ICD10: F51.01 Refill given oarrs reviewed. - ZOLPIDEM 5 MG TABLET Patient to keep appointment as scheduled. Jaylin Combs PA-C documented [facility]12-[facility] History of Present illness Narrative* Gloria Lopez RT(R) - 07/08/2021 12:40 PM EST Radiology Service Progress Note PATIENT NAME: Nora Camarillo DATE OF SERVICE: July 08, 2021 TIME: 12:38 PM PATIENT IDENTITY VERIFICATION COMPLETED USING TWO (2) IDENTIFIERS: Name and Date of confirmedby patient verbally. FALL SCREENING: Has the patient had 2 falls in the last year or 1 fall with injury or currently using an Ambulatory Assistive Device (Walker, Cane, Wheelchair, Crutches, etc.)? No PATIENT GENDER DATA: Female. status: : No status: NO. PATIENT RELEVANT IMPLANT DATA REVIEWED: Yes RADIOLOGY DEPARTMENT: General X-ray: Exam(s) Completed: Chest X-Ray PERIPHERAL IV DATA: Not applicable SIGNED BY: RT Rizwan(R) July 08, 2021 12:38 PM documented in this encounterWood [facility]10-01-[facility]21 History of Present illness Narrative* Gloria Lopez RT(Flavio) - 04/11/2021 1:00 PM EDT Radiology Service Progress Note PATIENT NAME: Nora Camarillo DATE OF SERVICE: April 11, 2021 TIME: 1:08 PM PATIENT IDENTITY VERIFICATION COMPLETED USING TWO (2) IDENTIFIERS: Name and Date of confirmedby patient verbally. FALL SCREENING: Has the patient had 2 falls in the last year or 1 fall with injury or currently using an Ambulatory Assistive Device (Walker, Cane, Wheelchair, Crutches, etc.)? No PATIENT GENDER DATA: Female. status: : No status: NO. PATIENT RELEVANT IMPLANT DATA REVIEWED: Yes RADIOLOGY DEPARTMENT: General X-ray: Exam(s) Completed: Lower Extremity X- Ray(s): Ankle, Left and Wt. Bearing PERIPHERAL IV DATA: Not applicable SIGNED BY: RT Rizwan(R) April 11, 2021 1:08 PM documented in [facility] encounter[facility]08-07-[facility] History of Past illness Narrative* Problem Noted Date Resolved Date Left lateral abdominal pain 02/15/201911/2018 Overview: Mid quadrant, chronic and paroxysmal. Left hip pain 09/14/2017 06/15/2019 Overview: Seeing [facility] Well adult exam 01/21/2017 06/15/2019 Overview: last done: 01/15/2019 Hiatal hernia 07/22/2016 06/15/2019 Chronic pain of left knee 07/22/20162018 Chronic bilateral low back pain 01/01/2016 06/15/2019 Overview: Seen [facility] Encounter for gynecological examination without abnormal finding 12/06/2015 06/15/2019 Overview: Seeing [facility] Encounter for screening for cardiovascular disor ders 12/06/2015 06/15/2019 Colon cancer screening 12/06/2015 9 Non morbid obesity 08/20/2015 07/22/2017 Routine general medical exam ination at a health care facility 11/20/2009 12/22/2011 Overview: 11/20/2009, from Dr. Dubois Routine gynecological examination 11/20/2009 12/22/2011 Overview: [facility] Diarrhea 11/20/2009 12/22/2011 Overview: Recurrent, since 2004 -- multiple GI evaluations, no clear cause; HIDA, CT, U/S, EGD x 2 (as of entry date 2009) Diaphragmatic hernia without mention of obstruction or gangrene 01/24/2007 07/22/2017 Unspecified constipation 012 documented as of this encounter (statuses as of 10/13/2021) [facility] of Past illness Narrative* Problem Noted Date Resolved Date Left lateral abdominal pain 02/15/2019 12/0 11/2018 Overview: Mid quadrant, chronic and paroxysmal. Left hip pain 09/14/2017 06/15/2019 Overview: Seeing [facility] Well adult exam 01/21/2017 06/15/2019 Overview: last done: 01/15/2019 Hiatal hernia 07/22/2016 06/15/2019 Chronic pain of left knee 07/22/20162018 Chronic bilateral low back pain 01/01/2016 06/15/2019 Overview: Seen [facility] Encounter for gynecological examination without abnormal finding 12/06/2015 06/15/2019 Overview: Seeing [facility] Encounter for screening for cardiovascular disor ders 12/06/2015 06/15/2019 Colon cancer screening 12/06/2015 9 Non morbid obesity 08/20/2015 07/22/2017 Routine general medical exam ination at a health care facility 11/20/2009 12/22/2011 Overview: 11/20/2009, from Dr. Dubois Routine gynecological examination 11/20/2009 12/22/2011 Overview: [facility] Diarrhea 11/20/2009 12/22/2011 Overview: Recurrent, since 2004 -- multiple GI evaluations, no clear cause; HIDA, CT, U/S, EGD x 2 (as of entry date 2009) Diaphragmatic hernia without mention of obstruction or gangrene 01/24/2007 07/22/2017 Unspecified constipation 012 documented as of this encounter (statuses as of 02/13/2022) [facility] of [facility] illness Narrative* Problem Noted Date Resolved Date Left lateral abdominal pain 02/15/2019 12/11/2018 Overview: Mid quadrant, chronic and paroxysmal. Left hip pain 09/14/2017 06/15/2019 Overview: Seeing [facility] Well adult exam 01/21/2017 06/15/2019 Overview: last done: 01/15/2019 Hiatal hernia 07/22/2016 06/15/2019 Chronic pain of left knee 07/22/20162018 Chronic bilateral low back pain 01/01/2016 06/15/2019 Overview: Seen [facility] Encounter for gynecological examination without abnormal finding 12/06/2015 06/15/2019 Overview: Seeing [facility] Encounter for screening for cardiovascular disor ders 12/06/2015 06/15/2019 Colon cancer screening 12/06/2015 9 Non morbid obesity 08/20/2015 07/22/2017 Routine general medical exam ination at a health care facility 11/20/2009 12/22/2011 Overview: 11/20/2009, from Dr. Dubois Routine gynecological examination 11/20/2009 12/22/2011 Overview: [facility] [place] Diarrhea 11/20/2009 12/22/2011 Overview: Recurrent, since 2004 -- multiple GI evaluations, no clear cause; HIDA, CT, U/S, EGD x 2 (as of entry date 2009) Diaphragmatic hernia without mention of obstruction or gangrene 01/24/2007 07/22/2017 Unspecified constipation 012 documented as of this encounter (statuses as of 02/18/2022) [facility] illness Narrative* Problem Noted Date Resolved Date Left lateral abdominal pain 02/15/201911/2018 Overview: Mid quadrant, chronic and paroxysmal. Left hip pain 09/14/2017 06/15/2019 Overview: Seeing [facility] Well adult exam 01/21/2017 06/15/2019 Overview: last done: 01/15/2019 Hiatal hernia 07/22/2016 06/15/2019 Chronic pain of left knee 07/22/20162018 Chronic bilateral low back pain 01/01/2016 06/15/2019 Overview: Seen [facility] Encounter for gynecological examination without abnormal finding 12/06/2015 06/15/2019 Overview: Seeing [facility] Encounter for screening for cardiovascular disor ders 12/06/2015 06/15/2019 Colon cancer screening 12/06/2015 9 Non morbid obesity 08/20/2015 07/22/2017 Routine general medical exam ination at a health care facility 11/20/2009 12/22/2011 Overview: 11/20/2009, from Dr. Dubois Routine gynecological examination 11/20/2009 12/22/2011 Overview: [facility] [place] Diarrhea 11/20/2009 12/22/2011 Overview: Recurrent, since 2004 -- multiple GI evaluations, no clear cause; HIDA, CT, U/S, EGD x 2 (as of entry date 2009) Diaphragmatic hernia without mention of obstruction or gangrene 01/24/2007 07/22/2017 Unspecified constipation 012 documented as of this encounter (statuses as of 03/03/2022) [facility] Narrative* Problem Noted Date Resolved Date Left lateral abdominal pain 02/15/2019 12/0 11/2018 Overview: Mid quadrant, chronic and paroxysmal. Left hip pain 09/14/2017 06/15/2019 Overview: Seeing [facility] Well adult exam 01/21/2017 06/15/2019 Overview: last done: 01/15/2019 Hiatal hernia 07/22/2016 06/15/2019 Chronic pain of left knee 07/22/20162018 Chronic bilateral low back pain 01/01/2016 06/15/2019 Overview: Seen [facility] Encounter for gynecological examination without abnormal finding 12/06/2015 06/15/2019 Overview: Seeing [facility] Encounter for screening for cardiovascular disor ders 12/06/2015 06/15/2019 Colon cancer screening 12/06/2015 9 Non morbid obesity 08/20/2015 07/22/2017 Routine general medical exam ination at a health care facility 11/20/2009 12/22/2011 Overview: 11/20/2009, from Dr. Dubois Routine gynecological examination 11/20/2009 12/22/2011 Overview: [facility] [place] Diarrhea 11/20/2009 12/22/2011 Overview: Recurrent, since 2004 -- multiple GI evaluations, no clear cause; HIDA, CT, U/S, EGD x 2 (as of entry date 2009) Diaphragmatic hernia without mention of obstruction or gangrene 01/24/2007 07/22/2017 Unspecified constipation 012 documented as of this encounter (statuses as of 03/18/2022) [facility] Narrative* Problem Noted Date Resolved Date Left lateral abdominal pain 02/15/2019 1211/2018 Overview: Mid quadrant, chronic and paroxysmal. Left hip pain 09/14/2017 06/15/2019 Overview: Seeing [facility] Well adult exam 01/21/2017 06/15/2019 Overview: last done: 01/15/2019 Hiatal hernia 07/22/2016 06/15/2019 Chronic pain of left knee 07/22/20162018 Chronic bilateral low back pain 01/01/2016 06/15/2019 Overview: Seen [facility] Encounter for gynecological examination without abnormal finding 12/06/2015 06/15/2019 Overview: Seeing [facility] Encounter for screening for cardiovascular disor ders 12/06/2015 06/15/2019 Colon cancer screening 12/06/2015 9 Non morbid obesity 08/20/2015 07/22/2017 Routine general medical exam ination at a health care facility 11/20/2009 12/22/2011 Overview: 11/20/2009, from Dr. Dbuois Routine gynecological examination 11/20/2009 12/22/2011 Overview: [facility] Diarrhea 11/20/2009 12/22/2011 Overview: Recurrent, since 2004 -- multiple GI evaluations, no clear cause; HIDA, CT, U/S, EGD x 2 (as of entry date 2009) Diaphragmatic hernia without mention of obstruction or gangrene 01/24/2007 07/22/2017 Unspecified constipation 012 documented as of this encounter (statuses as of 03/31/2022) [facility]08-07-2019 History of Past illness Narrative* Problem Noted Date Resolved Date Left lateral abdominal pain 02/15/201911/2018 Overview: Mid quadrant, chronic and paroxysmal. Left hip pain 09/14/2017 06/15/2019 Overview: Seeing Matti Martinez Well adult exam 01/21/2017 06/15/2019 Overview: last done: 01/15/2019 Hiatal hernia 07/22/2016 06/15/2019 Chronic pain of left knee 07/22/20162018 Chronic bilateral low back pain 01/01/2016 06/15/2019 Overview: Seen Matti cam Encounter for gynecological examination without abnormal finding 12/06/2015 06/15/2019 Overview: Seeing [facility] Encounter for screening for cardiovascular disor ders 12/06/2015 06/15/2019 Colon cancer screening 12/06/2015 9 Non morbid obesity 08/20/2015 07/22/2017 Routine general medical exam ination at a health care facility 11/20/2009 12/22/2011 Overview: 11/20/2009, from Dr. Dubois Routine gynecological examination 11/20/2009 12/22/2011 Overview: [facility], [facility] [place] Diarrhea 11/20/2009 12/22/2011 Overview: Recurrent, since 2004 -- multiple GI evaluations, no clear cause; HIDA, CT, U/S, EGD x 2 (as of entry date 2009) Diaphragmatic hernia without mention of obstruction or gangrene 01/24/2007 07/22/2017 Unspecified constipation 012 documented as of this encounter (statuses as of 04/09/2022) [facility]08-07-2019 History of Past illness Narrative* Problem Noted Date Resolved Date Left lateral abdominal pain 02/15/2019 12/11/2018 Overview: Mid quadrant, chronic and paroxysmal. Left hip pain 09/14/2017 06/15/2019 Overview: Seeing Matti Martinez Well adult exam 01/21/2017 06/15/2019 Overview: last done: 01/15/2019 Hiatal hernia 07/22/2016 06/15/2019 Chronic pain of left knee 07/22/20162018 Chronic bilateral low back pain 01/01/2016 06/15/2019 Overview: Seen Matti cam Encounter for gynecological examination without abnormal finding 12/06/2015 06/15/2019 Overview: Seeing [facility] Encounter for screening for cardiovascular disor ders 12/06/2015 06/15/2019 Colon cancer screening 12/06/2015 9 Non morbid obesity 08/20/2015 07/22/2017 Routine general medical exam ination at a health care facility 11/20/2009 12/22/2011 Overview: 11/20/2009, from Dr. Dubois Routine gynecological examination 11/20/2009 12/22/2011 Overview: [facility], [facility] [place] Diarrhea 11/20/2009 12/22/2011 Overview: Recurrent, since 2004 -- multiple GI evaluations, no clear cause; HIDA, CT, U/S, EGD x 2 (as of entry date 2009) Diaphragmatic hernia without mention of obstruction or gangrene 01/24/2007 07/22/2017 Unspecified constipation 012 documented as of this encounter (statuses as of 04/10/2022) [facility]08-07-2019 History of Past illness Narrative* Problem Noted Date Resolved Date Left lateral abdominal pain 02/15/2019 12/0 11/2018 Overview: Mid quadrant, chronic and paroxysmal. Left hip pain 09/14/2017 06/15/2019 Overview: Seeing Matti Martinez Well adult exam 01/21/2017 06/15/2019 Overview: last done: 01/15/2019 Hiatal hernia 07/22/2016 06/15/2019 Chronic pain of left knee 07/22/20162018 Chronic bilateral low back pain 01/01/2016 06/15/2019 Overview: Seen Matti cam Encounter for gynecological examination without abnormal finding 12/06/2015 06/15/2019 Overview: Seeing [facility] Encounter for screening for cardiovascular disor ders 12/06/2015 06/15/2019 Colon cancer screening 12/06/2015 9 Non morbid obesity 08/20/2015 07/22/2017 Routine general medical exam ination at a health care facility 11/20/2009 12/22/2011 Overview: 11/20/2009, from Dr. Dubois Routine gynecological examination 11/20/2009 12/22/2011 Overview: [facility], [facility] Matti Diarrhea 11/20/2009 12/22/2011 Overview: Recurrent, since 2004 -- multiple GI evaluations, no clear cause; HIDA, CT, U/S, EGD x 2 (as of entry date 2009) Diaphragmatic hernia without mention of obstruction or gangrene 01/24/2007 07/22/2017 Unspecified constipation 012 documented as of this encounter (statuses as of 04/30/2022) [facility]08-07-2019 History of Past illness Narrative* Problem Noted Date Resolved Date Left lateral abdominal pain 02/15/201911/2018 Overview: Mid quadrant, chronic and paroxysmal. Left hip pain 09/14/2017 06/15/2019 Overview: Seeing Matti Martinez Well adult exam 01/21/2017 06/15/2019 Overview: last done: 01/15/2019 Hiatal hernia 07/22/2016 06/15/2019 Chronic pain of left knee 07/22/20162018 Chronic bilateral low back pain 01/01/2016 06/15/2019 Overview: Seen Matti cam Encounter for gynecological examination without abnormal finding 12/06/2015 06/15/2019 Overview: Seeing [facility] Encounter for screening for cardiovascular disor ders 12/06/2015 06/15/2019 Colon cancer screening 12/06/2015 9 Non morbid obesity 08/20/2015 07/22/2017 Routine general medical exam ination at a health care facility 11/20/2009 12/22/2011 Overview: 11/20/2009, from Dr. Dubois Routine gynecological examination 11/20/2009 12/22/2011 Overview: [facility], [facility] [place] Diarrhea 11/20/2009 12/22/2011 Overview: Recurrent, since 2004 -- multiple GI evaluations, no clear cause; HIDA, CT, U/S, EGD x 2 (as of entry date 2009) Diaphragmatic hernia without mention of obstruction or gangrene 01/24/2007 07/22/2017 Unspecified constipation 012 documented as of this encounter (statuses as of 07/15/2022) [facility]08-07-2019 History of Past illness Narrative* Problem Noted Date Resolved Date Left lateral abdominal pain 02/15/201911/2018 Overview: Mid quadrant, chronic and paroxysmal. Left hip pain 09/14/2017 06/15/2019 Overview: Seeing Matti Martinez Well adult exam 01/21/2017 06/15/2019 Overview: last done: 01/15/2019 Hiatal hernia 07/22/2016 06/15/2019 Chronic pain of left knee 07/22/20162018 Chronic bilateral low back pain 01/01/2016 06/15/2019 Overview: Seen Matti cam Encounter for gynecological examination without abnormal finding 12/06/2015 06/15/2019 Overview: Seeing [facility] Encounter for screening for cardiovascular disor ders 12/06/2015 06/15/2019 Colon cancer screening 12/06/2015 9 Non morbid obesity 08/20/2015 07/22/2017 Routine general medical exam ination at a health care facility 11/20/2009 12/22/2011 Overview: 11/20/2009, from Dr. Dubois Routine gynecological examination 11/20/2009 12/22/2011 Overview: [facility], [facility] [place] Diarrhea 11/20/2009 12/22/2011 Overview: Recurrent, since 2004 -- multiple GI evaluations, no clear cause; HIDA, CT, U/S, EGD x 2 (as of entry date 2009) Diaphragmatic hernia without mention of obstruction or gangrene 01/24/2007 07/22/2017 Unspecified constipation 012 documented as of this encounter (statuses as of 07/17/2022) [facility]08-07-2019 History of Past illness Narrative* Problem Noted Date Resolved Date Left lateral abdominal pain 02/15/201911/2018 Overview: Mid quadrant, chronic and paroxysmal. Left hip pain 09/14/2017 06/15/2019 Overview: Seeing Matti Martinez Well adult exam 01/21/2017 06/15/2019 Overview: last done: 01/15/2019 Hiatal hernia 07/22/2016 06/15/2019 Chronic pain of left knee 07/22/20162018 Chronic bilateral low back pain 01/01/2016 06/15/2019 Overview: Seen Matti cam Encounter for gynecological examination without abnormal finding 12/06/2015 06/15/2019 Overview: Seeing [facility] Encounter for screening for cardiovascular disor ders 12/06/2015 06/15/2019 Colon cancer screening 12/06/2015 9 Non morbid obesity 08/20/2015 07/22/2017 Routine general medical exam ination at a health care facility 11/20/2009 12/22/2011 Overview: 11/20/2009, from Dr. Dubois Routine gynecological examination 11/20/2009 12/22/2011 Overview: [facility], [facility] Diarrhea 11/20/2009 12/22/2011 Overview: Recurrent, since 2004 -- multiple GI evaluations, no clear cause; HIDA, CT, U/S, EGD x 2 (as of entry date 2009) Diaphragmatic hernia without mention of obstruction or gangrene 01/24/2007 07/22/2017 Unspecified constipation 012 documented as of this encounter (statuses as of 08/19/2022) [facility]08-07-2019 History of Past illness Narrative* Problem Noted Date Resolved Date Left lateral abdominal pain 02/15/2019 1211/2018 Overview: Mid quadrant, chronic and paroxysmal. Left hip pain 09/14/2017 06/15/2019 Overview: Seeing Matti Martinez Well adult exam 01/21/2017 06/15/2019 Overview: last done: 01/15/2019 Hiatal hernia 07/22/2016 06/15/2019 Chronic pain of left knee 07/22/20162018 Chronic bilateral low back pain 01/01/2016 06/15/2019 Overview: Seen Matti cam Encounter for gynecological examination without abnormal finding 12/06/2015 06/15/2019 Overview: Seeing [facility] Encounter for screening for cardiovascular disor ders 12/06/2015 06/15/2019 Colon cancer screening 12/06/2015 9 Non morbid obesity 08/20/2015 07/22/2017 Routine general medical exam ination at a health care facility 11/20/2009 12/22/2011 Overview: 11/20/2009, from Dr. Dubois Routine gynecological examination 11/20/2009 12/22/2011 Overview: [facility], [facility] [place] Diarrhea 11/20/2009 12/22/2011 Overview: Recurrent, since 2004 -- multiple GI evaluations, no clear cause; HIDA, CT, U/S, EGD x 2 (as of entry date 2009) Diaphragmatic hernia without mention of obstruction or gangrene 01/24/2007 07/22/2017 Unspecified constipation 012 documented as of this encounter (statuses as of 09/18/2022) [facility]08-07-2019 History of Past illness Narrative* Problem Noted Date Resolved Date Left lateral abdominal pain 02/15/2019 12/11/2018 Overview: Mid quadrant, chronic and paroxysmal. Left hip pain 09/14/2017 06/15/2019 Overview: Seeing Matti Martinez Well adult exam 01/21/2017 06/15/2019 Overview: last done: 01/15/2019 Hiatal hernia 07/22/2016 06/15/2019 Chronic pain of left knee 07/22/20162018 Chronic bilateral low back pain 01/01/2016 06/15/2019 Overview: Seen Matti cam Encounter for gynecological examination without abnormal finding 12/06/2015 06/15/2019 Overview: Seeing [facility] Encounter for screening for cardiovascular disor ders 12/06/2015 06/15/2019 Colon cancer screening 12/06/2015 9 Non morbid obesity 08/20/2015 07/22/2017 Routine general medical exam ination at a health care facility 11/20/2009 12/22/2011 Overview: 11/20/2009, from Dr. Dubois Routine gynecological examination 11/20/2009 12/22/2011 Overview: [facility], [facility] [place] Diarrhea 11/20/2009 12/22/2011 Overview: Recurrent, since 2004 -- multiple GI evaluations, no clear cause; HIDA, CT, U/S, EGD x 2 (as of entry date 2009) Diaphragmatic hernia without mention of obstruction or gangrene 01/24/2007 07/22/2017 Unspecified constipation 012 documented as of this encounter (statuses as of 10/02/2022) [facility]08-07-2019 History of Past illness Narrative* Problem Noted Date Resolved Date Left lateral abdominal pain 02/15/2019 12/0 11/2018 Overview: Mid quadrant, chronic and paroxysmal. Left hip pain 09/14/2017 06/15/2019 Overview: Seeing Matti Martinez Well adult exam 01/21/2017 06/15/2019 Overview: last done: 01/15/2019 Hiatal hernia 07/22/2016 06/15/2019 Chronic pain of left knee 07/22/20162018 Chronic bilateral low back pain 01/01/2016 06/15/2019 Overview: Seen Matti cam Encounter for gynecological examination without abnormal finding 12/06/2015 06/15/2019 Overview: Seeing [facility] Encounter for screening for cardiovascular disor ders 12/06/2015 06/15/2019 Colon cancer screening 12/06/2015 9 Non morbid obesity 08/20/2015 07/22/2017 Routine general medical exam ination at a health care facility 11/20/2009 12/22/2011 Overview: 11/20/2009, from Dr. Dubois Routine gynecological examination 11/20/2009 12/22/2011 Overview: [facility], [facility] [place] Diarrhea 11/20/2009 12/22/2011 Overview: Recurrent, since 2004 -- multiple GI evaluations, no clear cause; HIDA, CT, U/S, EGD x 2 (as of entry date 2009) Diaphragmatic hernia without mention of obstruction or gangrene 01/24/2007 07/22/2017 Unspecified constipation 012 documented as of this encounter (statuses as of 10/08/2022) [facility]08[facility]2019 History of Past illness Narrative* Problem Noted Date Resolved Date Left lateral abdominal pain 02/15/201911/2018 Overview: Mid quadrant, chronic and paroxysmal. Left hip pain 09/14/2017 06/15/2019 Overview: Seeing Matti Martinez Well adult exam 01/21/2017 06/15/2019 Overview: last done: 01/15/2019 Hiatal hernia 07/22/2016 06/15/2019 Chronic pain of left knee 07/22/20162018 Chronic bilateral low back pain 01/01/2016 06/15/2019 Overview: Seen Matti cam Encounter for gynecological examination without abnormal finding 12/06/2015 06/15/2019 Overview: Seeing [facility] Encounter for screening for cardiovascular disor ders 12/06/2015 06/15/2019 Colon cancer screening 12/06/2015 9 Non morbid obesity 08/20/2015 07/22/2017 Routine general medical exam ination at a health care facility 11/20/2009 12/22/2011 Overview: 11/20/2009, from Dr. Dubois Routine gynecological examination 11/20/2009 12/22/2011 Overview: [facility], [facility] [place] Diarrhea 11/20/2009 12/22/2011 Overview: Recurrent, since 2004 -- multiple GI evaluations, no clear cause; HIDA, CT, U/S, EGD x 2 (as of entry date 2009) Diaphragmatic hernia without mention of obstruction or gangrene 01/24/2007 07/22/2017 Unspecified constipation 012 documented as of this encounter (statuses as of 10/19/2022) [facility]08-[facility]2019 History of Past illness Narrative* Problem Noted Date Resolved Date Left lateral abdominal pain 02/15/2019 12/11/2018 Overview: Mid quadrant, chronic and paroxysmal. Left hip pain 09/14/2017 06/15/2019 Overview: Seeing Matti Martinez Well adult exam 01/21/2017 06/15/2019 Overview: last done: 01/15/2019 Hiatal hernia 07/22/2016 06/15/2019 Chronic pain of left knee 07/22/20162018 Chronic bilateral low back pain 01/01/2016 06/15/2019 Overview: Seen Matti cam Encounter for gynecological examination without abnormal finding 12/06/2015 06/15/2019 Overview: Seeing [facility] Encounter for screening for cardiovascular disor ders 12/06/2015 06/15/2019 Colon cancer screening 12/06/2015 9 Non morbid obesity 08/20/2015 07/22/2017 Routine general medical exam ination at a health care facility 11/20/2009 12/22/2011 Overview: 11/20/2009, from Dr. Dubois Routine gynecological examination 11/20/2009 12/22/2011 Overview: [facility], [facility] [place] Diarrhea 11/20/2009 12/22/2011 Overview: Recurrent, since 2004 -- multiple GI evaluations, no clear cause; HIDA, CT, U/S, EGD x 2 (as of entry date 2009) Diaphragmatic hernia without mention of obstruction or gangrene 01/24/2007 07/22/2017 Unspecified constipation 012 documented as of this encounter (statuses as of 10/19/2022) [facility]08-[facility]2019 History of Past illness Narrative* Problem Noted Date Diagnosed Date Resolved Date Left lateral abdominal pain 02/15/2019 06/15/2019 Overview: Mid quadrant, chronic and paroxysmal. Left hip pain 09/14/2017 06/15/2019 Overview: Seeing Matti Martinez Well adult exam 01/21/2017 06/15/2019 Overview: last done: 01/15/2019 Hiatal hernia 07/22/2016 06/15/2019 Chronic pain of left knee 07/22/2016 Chronic bilateral low back pain 01/01/2016 06/15/2019 Overview: Seen Matti cam Encounter for gynecological examination without abnormal finding 12/06/2015 06/15/2019 Overview: Seeing [facility] Encounter for screening for cardiovascular disorders 12/06/2015 06/15/2019 Colon cancer screening 12/06/201506/15 Non morbid obesity 08/20/2015 8 Routine general medical exam ination at a health care facility 11/20/2009 12/22/2011 Overview: 11/20/2009, from Dr. Dubois Routine gynecological examination 11/20/2009 12/22/2011 Overview: [facility], [facility] [place] Diarrhea 11/20/2009 12/22/2011 Overview: Recurrent, since 2004 -- multiple GI evaluations, no clear cause; HIDA, CT, U/S, EGD x 2 (as of entry date 2009) Diaphragmatic hernia without mention of obstruction or gangrene 01/24/2007 07/22/2017 Unspecified constipation 06/2012 documented as of this encounter (statuses as of 01/26/2023) [facility]08[facility]2019 History of Past illness Narrative* Problem Noted Date Diagnosed Date Resolved Date Left lateral abdominal pain 02/15/2019 06/15/2019 Overview: Mid quadrant, chronic and paroxysmal. Left hip pain 09/14/2017 06/15/2019 Overview: Seeing Matti Martinez Well adult exam 01/21/2017 06/15/2019 Overview: last done: 01/15/2019 Hiatal hernia 07/22/2016 06/15/2019 Chronic pain of left knee 07/22/2016 Chronic bilateral low back pain 01/01/2016 06/15/2019 Overview: Seen Matti cam Encounter for gynecological examination without abnormal finding 12/06/2015 06/15/2019 Overview: Seeing [facility] Encounter for screening for cardiovascular disorders 12/06/2015 06/15/2019 Colon cancer screening 12/06/201506/15 Non morbid obesity 08/20/2015 8 Routine general medical exam ination at a health care facility 11/20/2009 12/22/2011 Overview: 11/20/2009, from Dr. Dubois Routine gynecological examination 11/20/2009 12/22/2011 Overview: [facility], [facility] [place] Di[place] 11/20/2009 12/22/2011 Overview: Recurrent, since 2004 -- multiple GI evaluations, no clear cause; HIDA, CT, U/S, EGD x 2 (as of entry date 2009) Diaphragmatic hernia without mention of obstruction or gangrene 01/24/2007 07/22/2017 Unspecified constipation 06/2012 documented as of this encounter (statuses as of 03/03/2023) [facility] History of Past illness Narrative* Problem Noted Date Diagnosed Date Resolved Date Left lateral abdominal pain 02/15/2019 06/15/2019 Overview: Mid quadrant, chronic and paroxysmal. Left hip pain 09/14/2017 06/15/2019 Overview: Seeing Matti Martinez Well adult exam 01/21/2017 06/15/2019 Overview: last done: 01/15/2019 Hiatal hernia 07/22/2016 06/15/2019 Chronic pain of left knee 07/22/2016 Chronic bilateral low back pain 01/01/2016 06/15/2019 Overview: Seen Matti cam Encounter for gynecological examination without abnormal finding 12/06/2015 06/15/2019 Overview: Seeing [facility] Encounter for screening for cardiovascular disorders 12/06/2015 06/15/2019 Colon cancer screening 12/06/201506/15 Non morbid obesity 08/20/2015 8 Routine general medical exam ination at a health care facility 11/20/2009 12/22/2011 Overview: 11/20/2009, from Dr. Dubois Routine gynecological examination 11/20/2009 12/22/2011 Overview: [facility], [facility] [place] 11/20/2009 12/22/2011 Overview: Recurrent, since 2004 -- multiple GI evaluations, no clear cause; HIDA, CT, U/S, EGD x 2 (as of entry date 2009) Diaphragmatic hernia without mention of obstruction or gangrene 01/24/2007 07/22/2017 Unspecified constipation 06/2012 documented as of this encounter (statuses as of 03/04/2023) [facility] History of Past illness Narrative* Problem Noted Date Diagnosed Date Resolved Date Left lateral abdominal pain 02/15/2019 06/15/2019 Overview: Mid quadrant, chronic and paroxysmal. Left hip pain 09/14/2017 06/15/2019 Overview: Seeing Matti Martinez Well adult exam 01/21/2017 06/15/2019 Overview: last done: 01/15/2019 Hiatal hernia 07/22/2016 06/15/2019 Chronic pain of left knee 07/22/2016 Chronic bilateral low back pain 01/01/2016 06/15/2019 Overview: Seen Matti cam Encounter for gynecological examination without abnormal finding 12/06/2015 06/15/2019 Overview: Seeing [facility] Encounter for screening for cardiovascular disorders 12/06/2015 06/15/2019 Colon cancer screening 12/06/201506/15 Non morbid obesity 08/20/2015 8 Routine general medical exam ination at a health care facility 11/20/2009 12/22/2011 Overview: 11/20/2009, from Dr. Dubois Routine gynecological examination 11/20/2009 12/22/2011 Overview: [facility] [place] Diarrhea 11/20/2009 12/22/2011 Overview: Recurrent, since 2004 -- multiple GI evaluations, no clear cause; HIDA, CT, U/S, EGD x 2 (as of entry date 2009) Diaphragmatic hernia without mention of obstruction or gangrene 01/24/2007 07/22/2017 Unspecified constipation 06/2012 documented as of this encounter (statuses as of 03/22/2023) [facility] History of Past illness Narrative* Problem Noted Date Diagnosed Date Resolved Date Left lateral abdominal pain 02/15/2019 06/15/2019 Overview: Mid quadrant, chronic and paroxysmal. Left hip pain 09/14/2017 06/15/2019 Overview: Seeing Matti Martinez Well adult exam 01/21/2017 06/15/2019 Overview: last done: 01/15/2019 Hiatal hernia 07/22/2016 06/15/2019 Chronic pain of left knee 07/22/2016 Chronic bilateral low back pain 01/01/2016 06/15/2019 Overview: Seen Matti cam Encounter for gynecological examination without abnormal finding 12/06/2015 06/15/2019 Overview: Seeing [facility] Encounter for screening for cardiovascular disorders 12/06/2015 06/15/2019 Colon cancer screening 12/06/201506/15 Non morbid obesity 08/20/2015 8 Routine general medical exam ination at a health care facility 11/20/2009 12/22/2011 Overview: 11/20/2009, from Dr. Dubois Routine gynecological examination 11/20/2009 12/22/2011 Overview: [facility], [facility] [place] Diarrhea 11/20/2009 12/22/2011 Overview: Recurrent, since 2004 -- multiple GI evaluations, no clear cause; HIDA, CT, U/S, EGD x 2 (as of entry date 2009) Diaphragmatic hernia without mention of obstruction or gangrene 01/24/2007 07/22/2017 Unspecified constipation 06/2012 documented as of this encounter (statuses as of 04/06/2023) [facility] History of Past illness Narrative* Problem Noted Date Diagnosed Date Resolved Date Left lateral abdominal pain 02/15/2019 06/15/2019 Overview: Mid quadrant, chronic and paroxysmal. Left hip pain 09/14/2017 06/15/2019 Overview: Seeing Matti Martinez Well adult exam 01/21/2017 06/15/2019 Overview: last done: 01/15/2019 Hiatal hernia 07/22/2016 06/15/2019 Chronic pain of left knee 07/22/2016 Chronic bilateral low back pain 01/01/2016 06/15/2019 Overview: Seen Matti cam Encounter for gynecological examination without abnormal finding 12/06/2015 06/15/2019 Overview: Seeing [facility] Encounter for screening for cardiovascular disorders 12/06/2015 06/15/2019 Colon cancer screening 12/06/201506/15 Non morbid obesity 08/20/2015 8 Routine general medical exam ination at a health care facility 11/20/2009 12/22/2011 Overview: 11/20/2009, from Dr. Dubois Routine gynecological examination 11/20/2009 12/22/2011 Overview: [facility], [facility] [place]i [place] 11/20/2009 12/22/2011 Overview: Recurrent, since 2004 -- multiple GI evaluations, no clear cause; HIDA, CT, U/S, EGD x 2 (as of entry date 2009) Diaphragmatic hernia without mention of obstruction or gangrene 01/24/2007 07/22/2017 Unspecified constipation 06/2012 documented as of this encounter (statuses as of 05/16/2023) [facility] History of Past illness Narrative* Problem Noted Date Diagnosed Date Resolved Date Left lateral abdominal pain 02/15/2019 06/15/2019 Overview: Mid quadrant, chronic and paroxysmal. Left hip pain 09/14/2017 06/15/2019 Overview: Seeing Matti Martinez Well adult exam 01/21/2017 06/15/2019 Overview: last done: 01/15/2019 Hiatal hernia 07/22/2016 06/15/2019 Chronic pain of left knee 07/22/2016 Chronic bilateral low back pain 01/01/2016 06/15/2019 Overview: Seen Matti cam Encounter for gynecological examination without abnormal finding 12/06/2015 06/15/2019 Overview: Seeing [facility] Encounter for screening for cardiovascular disorders 12/06/2015 06/15/2019 Colon cancer screening 12/06/201506/15 Non morbid obesity 08/20/2015 8 Routine general medical exam ination at a health care facility 11/20/2009 12/22/2011 Overview: 11/20/2009, from Dr. Dubois Routine gynecological examination 11/20/2009 12/22/2011 Overview: [facility], [facility] Diarrhea 11/20/2009 12/22/2011 Overview: Recurrent, since 2004 -- multiple GI evaluations, no clear cause; HIDA, CT, U/S, EGD x 2 (as of entry date 2009) Diaphragmatic hernia without mention of obstruction or gangrene 01/24/2007 07/22/2017 Unspecified constipation 06/2012 documented as of this encounter (statuses as of 05/16/2023) [facility]08-07-2019 History of Past illness Narrative* Problem Noted Date Diagnosed Date Resolved Date Left lateral abdominal pain 02/15/2019 06/15/2019 Overview: Mid quadrant, chronic and paroxysmal. Left hip pain 09/14/2017 06/15/2019 Overview: Seeing Matti Martinez Well adult exam 01/21/2017 06/15/2019 Overview: last done: 01/15/2019 Hiatal hernia 07/22/2016 06/15/2019 Chronic pain of left knee 07/22/2016 Chronic bilateral low back pain 01/01/2016 06/15/2019 Overview: Seen Matti cam Encounter for gynecological examination without abnormal finding 12/06/2015 06/15/2019 Overview: Seeing [facility] Encounter for screening for cardiovascular disorders 12/06/2015 06/15/2019 Colon cancer screening 12/06/201506/15 Non morbid obesity 08/20/2015 8 Routine general medical exam ination at a health care facility 11/20/2009 12/22/2011 Overview: 11/20/2009, from Dr. Dubois Routine gynecological examination 11/20/2009 12/22/2011 Overview: [facility], [facility] [place] Diarrhea 11/20/2009 12/22/2011 Overview: Recurrent, since 2004 -- multiple GI evaluations, no clear cause; HIDA, CT, U/S, EGD x 2 (as of entry date 2009) Diaphragmatic hernia without mention of obstruction or gangrene 01/24/2007 07/22/2017 Unspecified constipation 06/2012 documented as of this encounter (statuses as of 05/16/2023) [facility]08-07-2019 History of Past illness Narrative* Problem Noted Date Diagnosed Date Resolved Date Left lateral abdominal pain 02/15/2019 06/15/2019 Overview: Mid quadrant, chronic and paroxysmal. Left hip pain 09/14/2017 06/15/2019 Overview: Seeing Matti Martinez Well adult exam 01/21/2017 06/15/2019 Overview: last done: 01/15/2019 Hiatal hernia 07/22/2016 06/15/2019 Chronic pain of left knee 07/22/2016 Chronic bilateral low back pain 01/01/2016 06/15/2019 Overview: Seen Matti cam Encounter for gynecological examination without abnormal finding 12/06/2015 06/15/2019 Overview: Seeing [facility] Encounter for screening for cardiovascular disorders 12/06/2015 06/15/2019 Colon cancer screening 12/06/201506/15 Non morbid obesity 08/20/2015 8 Routine general medical exam ination at a health care facility 11/20/2009 12/22/2011 Overview: 11/20/2009, from Dr. Dubois Routine gynecological examination 11/20/2009 12/22/2011 Overview: [facility] Diarrhea 11/20/2009 12/22/2011 Overview: Recurrent, since 2004 -- multiple GI evaluations, no clear cause; HIDA, CT, U/S, EGD x 2 (as of entry date 2009) Diaphragmatic hernia without mention of obstruction or gangrene 01/24/2007 07/22/2017 Unspecified constipation 06/2012 documented as of this encounter (statuses as of 06/22/2023) [facility]08-07-2019 History of Past illness Narrative* Problem Noted Date Diagnosed Date Resolved Date Left lateral abdominal pain 02/15/2019 06/15/2019 Overview: Mid quadrant, chronic and paroxysmal. Left hip pain 09/14/2017 06/15/2019 Overview: Seeing Matti Martinez Well adult exam 01/21/2017 06/15/2019 Overview: last done: 01/15/2019 Hiatal hernia 07/22/2016 06/15/2019 Chronic pain of left knee 07/22/2016 Chronic bilateral low back pain 01/01/2016 06/15/2019 Overview: Seen [facility] Encounter for gynecological examination without abnormal finding 12/06/2015 06/15/2019 Overview: Seeing [facility] Encounter for screening for cardiovascular disorders 12/06/2015 06/15/2019 Colon cancer screening 12/06/201506/15 Non morbid obesity 08/20/2015 8 Routine general medical exam ination at a health care facility 11/20/2009 12/22/2011 Overview: 11/20/2009, from Dr. Dubois Routine gynecological examination 11/20/2009 12/22/2011 Overview: [facility], [facility] [place] Diarrhea 11/20/2009 12/22/2011 Overview: Recurrent, since 2004 -- multiple GI evaluations, no clear cause; HIDA, CT, U/S, EGD x 2 (as of entry date 2009) Diaphragmatic hernia without mention of obstruction or gangrene 01/24/2007 07/22/2017 Unspecified constipation 06/2012 documented as of this encounter (statuses as of 09/03/2023) [facility]08-[facility]2019 History of Past illness Narrative* Problem Noted Date Diagnosed Date Resolved Date Left lateral abdominal pain 02/15/2019 06/15/2019 Overview: Mid quadrant, chronic and paroxysmal. Left hip pain 09/14/2017 06/15/2019 Overview: Seeing Matti Martinez Well adult exam 01/21/2017 06/15/2019 Overview: last done: 01/15/2019 Hiatal hernia 07/22/2016 06/15/2019 Chronic pain of left knee 07/22/2016 Chronic bilateral low back pain 01/01/2016 06/15/2019 Overview: Seen [facility] cam Encounter for gynecological examination without abnormal finding 12/06/2015 06/15/2019 Overview: Seeing [facility] Encounter for screening for cardiovascular disorders 12/06/2015 06/15/2019 Colon cancer screening 12/06/201506/15 Non morbid obesity 08/20/2015 8 Routine general medical exam ination at a health care facility 11/20/2009 12/22/2011 Overview: 11/20/2009, from Dr. Dubois Routine gynecological examination 11/20/2009 12/22/2011 Overview: [facility] Diarrhea 11/20/2009 12/22/2011 Overview: Recurrent, since 2004 -- multiple GI evaluations, no clear cause; HIDA, CT, U/S, EGD x 2 (as of entry date 2009) Diaphragmatic hernia without mention of obstruction or gangrene 01/24/2007 07/22/2017 Unspecified constipation 06/2012 documented as of this encounter (statuses as of 09/06/2023) [facility]08-07-2019 History of Past illness Narrative* Problem Noted Date Diagnosed Date Resolved Date Left lateral abdominal pain 02/15/2019 06/15/2019 Overview: Mid quadrant, chronic and paroxysmal. Left hip pain 09/14/2017 06/15/2019 Overview: Seeing Matti Martinez Well adult exam 01/21/2017 06/15/2019 Overview: last done: 01/15/2019 Hiatal hernia 07/22/2016 06/15/2019 Chronic pain of left knee 07/22/2016 Chronic bilateral low back pain 01/01/2016 06/15/2019 Overview: Seen [facility] Encounter for gynecological examination without abnormal finding 12/06/2015 06/15/2019 Overview: Seeing [facility] Encounter for screening for cardiovascular disorders 12/06/2015 06/15/2019 Colon cancer screening 12/06/201506/15 Non morbid obesity 08/20/2015 8 Routine general medical exam ination at a health care facility 11/20/2009 12/22/2011 Overview: 11/20/2009, from Dr. Dubois Routine gynecological examination 11/20/2009 12/22/2011 Overview: [facility], [facility] Diarrhea 11/20/2009 12/22/2011 Overview: Recurrent, since 2004 -- multiple GI evaluations, no clear cause; HIDA, CT, U/S, EGD x 2 (as of entry date 2009) Diaphragmatic hernia without mention of obstruction or gangrene 01/24/2007 07/22/2017 Unspecified constipation 06/2012 documented as of this encounter (statuses as of 09/07/2023) [facility]08-07-2019 History of Past illness Narrative* Problem Noted Date Diagnosed Date Resolved Date Left lateral abdominal pain 02/15/2019 06/15/2019 Overview: Mid quadrant, chronic and paroxysmal. Left hip pain 09/14/2017 06/15/2019 Overview: Seeing Matti Martinez Well adult exam 01/21/2017 06/15/2019 Overview: last done: 01/15/2019 Hiatal hernia 07/22/2016 06/15/2019 Chronic pain of left knee 07/22/2016 Chronic bilateral low back pain 01/01/2016 06/15/2019 Overview: Seen [facility] cam Encounter for gynecological examination without abnormal finding 12/06/2015 06/15/2019 Overview: Seeing [facility] Encounter for screening for cardiovascular disorders 12/06/2015 06/15/2019 Colon cancer screening 12/06/201506/15 Non morbid obesity 08/20/2015 8 Routine general medical exam ination at a health care facility 11/20/2009 12/22/2011 Overview: 11/20/2009, from Dr. Dubois Routine gynecological examination 11/20/2009 12/22/2011 Overview: [facility], [facility] Diarrhea 11/20/2009 12/22/2011 Overview: Recurrent, since 2004 -- multiple GI evaluations, no clear cause; HIDA, CT, U/S, EGD x 2 (as of entry date 2009) Diaphragmatic hernia without mention of obstruction or gangrene 01/24/2007 07/22/2017 Unspecified constipation 06/2012 documented as of this encounter (statuses as of 10/01/2023) [facility]08-[facility]2019 History of Past illness Narrative* Problem Noted Date Diagnosed Date Resolved Date Left lateral abdominal pain 02/15/2019 06/15/2019 Overview: Mid quadrant, chronic and paroxysmal. Left hip pain 09/14/2017 06/15/2019 Overview: Seeing Matti Martinez Well adult exam 01/21/2017 06/15/2019 Overview: last done: 01/15/2019 Hiatal hernia 07/22/2016 06/15/2019 Chronic pain of left knee 07/22/2016 Chronic bilateral low back pain 01/01/2016 06/15/2019 Overview: Seen [facility] cam Encounter for gynecological examination without abnormal finding 12/06/2015 06/15/2019 Overview: Seeing [facility] Encounter for screening for cardiovascular disorders 12/06/2015 06/15/2019 Colon cancer screening 12/06/201506/15 Non morbid obesity 08/20/2015 8 Routine general medical exam ination at a health care facility 11/20/2009 12/22/2011 Overview: 11/20/2009, from Dr. Dubois Routine gynecological examination 11/20/2009 12/22/2011 Overview: [facility], [facility] Diarrhea 11/20/2009 12/22/2011 Overview: Recurrent, since 2004 -- multiple GI evaluations, no clear cause; HIDA, CT, U/S, EGD x 2 (as of entry date 2009) Diaphragmatic hernia without mention of obstruction or gangrene 01/24/2007 07/22/2017 Unspecified constipation 06/2012 documented as of this encounter (statuses as of 10/04/2023) [facility]08-07-2019 History of Past illness Narrative* Problem Noted Date Diagnosed Date Resolved Date Left lateral abdominal pain 02/15/2019 06/15/2019 Overview: Mid quadrant, chronic and paroxysmal. Left hip pain 09/14/2017 06/15/2019 Overview: Seeing Matti Martinez Well adult exam 01/21/2017 06/15/2019 Overview: last done: 01/15/2019 Hiatal hernia 07/22/2016 06/15/2019 Chronic pain of left knee 07/22/2016 Chronic bilateral low back pain 01/01/2016 06/15/2019 Overview: Seen [facility] cam Encounter for gynecological examination without abnormal finding 12/06/2015 06/15/2019 Overview: Seeing [facility] Encounter for screening for cardiovascular disorders 12/06/2015 06/15/2019 Colon cancer screening 12/06/201506/15 Non morbid obesity 08/20/2015 8 Routine general medical exam ination at a health care facility 11/20/2009 12/22/2011 Overview: 11/20/2009, from Dr. Dubois Routine gynecological examination 11/20/2009 12/22/2011 Overview: [facility], [facility] Diarrhea 11/20/2009 12/22/2011 Overview: Recurrent, since 2004 -- multiple GI evaluations, no clear cause; HIDA, CT, U/S, EGD x 2 (as of entry date 2009) Diaphragmatic hernia without mention of obstruction or gangrene 01/24/2007 07/22/2017 Unspecified constipation 06/2012 documented as of this encounter (statuses as of 10/05/2023) [facility] Bacterial pneumonia- Primary Bacterial pneumonia, unspecified Mild persistent asthma without complication Unspecified asthma Primary insomnia Persistent disorder of initiating or maintaining sleep [facility] information availableW[facility] Phone: Evaluation note* Diagnosis Medicare annual wellness visit, subsequent- Primary Routine general medical examination at a health care facility Mixed hyperlipidemia Elevated fasting blood sugar Impaired fasting glucose Bilateral carotid artery stenosis Occlusion and stenosis of carotid artery without mention of cerebral infarction Gastroesophageal reflux disease with esophagitis without hemorrhage Left leg swelling Swelling of limb PUD (peptic ulcer disease) Peptic ulcer, unspecified site, unspecified as acute or chronic, without mention of hemorrhage, perforation, or obstruction Mild persistent asthma without complication Unspecified asthma Anxiety and depression Dysthymic disorder Essential tremor Essential and other specified forms of tremor 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 Obesity, Class I, BMI 30-34.9 Obesity, unspecified Primary insomnia Persistent disorder of initiating or maintaining sleep Mixed incontinence Mixed incontinence urge and stress (male)(female) Chronic pain of right knee Right leg weakness Other musculoskeletal symptoms referable to limbs Living will on file Advance directive discussed with patient Other specified counseling [facility] Bilateral carotid artery stenosis Occlusion and stenosis of carotid artery without mention of cerebral infarction [facility] Diagnosis Primary insomnia- Primary Persistent disorder of initiating or maintaining sleep [facility] Diagnosis Primary insomnia Persistent disorder of initiating or maintaining sleep [facility] Diagnosis Primary insomnia Persistent disorder of initiating or maintaining sleep [facility] Diagnosis Pain in left foot- Primary Pain in limb Plantar fascial fibromatosis Foreign body (FB) in soft tissue Residual foreign body in soft tissue [facility] Diagnosis Pain in left foot Pain in limb [facility] Diagnosis Primary insomnia Persistent disorder of initiating or maintaining sleep [facility] Diagnosis Encounter for screening mammogram for malignant neoplasm of breast- Primary Other screening mammogram [facility] Diagnosis Mixed hyperlipidemia- Primary Essential tremor Essential and other specified forms of tremor Primary insomnia Persistent disorder of initiating or maintaining sleep Senile osteoporosis Anxiety and depression Dysthymic disorder Bilateral carotid artery stenosis Occlusion and stenosis of carotid artery without mention of cerebral infarction Mild persistent asthma without complication Unspecified asthma Elevated fasting blood sugar Impaired fasting glucose Family history of thyroid disease Family history of other endocrine and metabolic diseases Weight gain Abnormal weight gain [facility] Diagnosis Foreign body (FB) in soft tissue- Primary Residual foreign body in soft tissue Acquired hallux valgus of left foot Hallux valgus (acquired) Pain in left foot Pain in limb [facility] Diagnosis Mild persistent asthma without complication Unspecified asthma [facility] Diagnosis Subacute cough- Primary Cough COPD with exacerbation (HCC) Obstructive chronic bronchitis with exacerbation [facility] Diagnosis Medicare annual wellness visit, subsequent- Primary Routine general medical examination at a [facility] care facility Advance directive discussed with patient Other specified counseling Mixed hyperlipidemia Elevated fasting blood sugar Impaired fasting glucose Mild persistent asthma without complication Unspecified asthma Primary insomnia Persistent disorder of initiating or maintaining sleep Asymptomatic postmenopausal status Senile osteoporosis [facility]* Diagnosis Age-related osteoporosis without current pathological fracture- Primary Senile osteoporosis [facility] Diagnosis Senile osteoporosis- Primary Chronic sinusitis, unspecified location Chronic cough Cough [facility] Foreign body (FB) in soft tissue Residual foreign body in soft tissue Acquired hallux valgus of left foot Hallux valgus (acquired) [facility] Diagnosis Asymptomatic postmenopausal status Senile osteoporosis [facility] Diagnosis Encounter for screening mammogram for malignant neoplasm of breast Other screening mammogram [facility] Diagnosis Visit for screening mammogram- Primary Other screening mammogram [facility] Diagnosis Mixed hyperlipidemia- Primary URI, acute Acute upper respiratory infections of unspecified site Age-related osteoporosis without current pathological fracture Senile osteoporosis Vitamin D deficiency Unspecified vitamin D deficiency Elevated fasting blood sugar Impaired fasting glucose Gastroesophageal reflux disease with esophagitis without hemorrhage Mild persistent asthma without complication Unspecified asthma Primary insomnia Persistent disorder of initiating or maintaining sleep Essential tremor Essential and other specified forms of tremor Senile osteoporosis [facility]* Diagnosis Bronchitis- Primary Bronchitis, not specified as acute or chronic Moderate persistent asthma with (acute) exacerbation [facility] Diagnosis Encounter for gynecological examination with abnormal finding- Primary Routine gynecological examination Encounter for screening mammogram for malignant neoplasm of breast Other screening mammogram [facility]* Diagnosis Post-nasal drip- Primary Postnasal drip Primary insomnia Persistent disorder of initiating or maintaining sleep [facility]* Diagnosis Mild persistent asthma without complication- Primary Unspecified asthma Persistent cough Cough Second hand smoke exposure Other specified personal history presenting hazards to health [facility]* Diagnosis Bronchitis- Primary Bronchitis, not specified as acute or chronic Persistent cough Cough Mild persistent asthma without complication Unspecified asthma [facility]* Diagnosis Inflamed skin tag- Primary Unspecified hypertrophic and atrophic condition of skin Primary insomnia Persistent disorder of initiating or maintaining sleep [facility]* Diagnosis Chronic obstructive pulmonary disease, unspecified COPD type (HCC) [facility]* Diagnosis Chronic obstructive pulmonary disease, unspecified COPD type (HCC) [facility]* Diagnosis Chronic obstructive pulmonary disease, unspecified COPD type (HCC) Chronic obstructive pulmonary disease, unspecified COPD type (HCC) Cough variant asthma- Primary Multiple allergies Other allergy, other than to medicinal agents [facility]* Diagnosis Right knee pain, unspecified chronicity- Primary [facility]* Diagnosis Pre-operative examination- Primary Preoperative examination, unspecified 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 Other and unspecified derangement of medial meniscus Primary insomnia Persistent disorder of initiating or maintaining sleep Essential tremor Essential and other specified forms of tremor Mixed hyperlipidemia Mild persistent asthma without complication Unspecified asthma PUD (peptic ulcer disease) Peptic ulcer, unspecified site, unspecified as acute or chronic, without mention of hemorrhage, perforation, or obstruction Gastroesophageal reflux disease with esophagitis Bilateral carotid artery stenosis Occlusion and stenosis of carotid artery without mention of cerebral infarction Obesity, Class I, BMI 30-34.9 Obesity, unspecified Primary osteoarthritis of right knee- Primary Primary localized osteoarthrosis, lower leg documented in this encounter [facility]* Diagnosis Pre-operative examination- Primary Preoperative examination, unspecified 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 Other and unspecified derangement of medial meniscus Primary insomnia Persistent disorder of initiating or maintaining sleep Essential tremor Essential and other specified forms of tremor Mixed hyperlipidemia Mild persistent asthma without complication Unspecified asthma PUD (peptic ulcer disease) Peptic ulcer, unspecified site, unspecified as acute or chronic, without mention of hemorrhage, perforation, or obstruction Gastroesophageal reflux disease with esophagitis Bilateral carotid artery stenosis Occlusion and stenosis of carotid artery without mention of cerebral infarction Obesity, Class I, BMI 30-34.9 Obesity, unspecified Pain Generalized pain Right knee pain, unspecified chronicity [facility] Diagnosis Pre-operative examination- Primary Preoperative examination, unspecified 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 Other and unspecified derangement of medial meniscus Primary insomnia Persistent disorder of initiating or maintaining sleep Essential tremor Essential and other specified forms of tremor Mixed hyperlipidemia Mild persistent asthma without complication Unspecified asthma PUD (peptic ulcer disease) Peptic ulcer, unspecified site, unspecified as acute or chronic, without mention of hemorrhage, perforation, or obstruction Gastroesophageal reflux disease with esophagitis Bilateral carotid artery stenosis Occlusion and stenosis of carotid artery without mention of cerebral infarction Obesity, Class I, BMI 30-34.9 Obesity, unspecified Bronchitis Bronchitis, not specified as acute or chronic documented [facility]* Diagnosis Pre-operative examination- Primary Preoperative examination, unspecified 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 Other and unspecified derangement of medial meniscus Primary insomnia Persistent disorder of initiating or maintaining sleep Essential tremor Essential and other specified forms of tremor Mixed hyperlipidemia Mild persistent asthma without complication Unspecified asthma PUD (peptic ulcer disease) Peptic ulcer, unspecified site, unspecified as acute or chronic, without mention of hemorrhage, perforation, or obstruction Gastroesophageal reflux disease with esophagitis Bilateral carotid artery stenosis Occlusion and stenosis of carotid artery without mention of cerebral infarction Obesity, Class I, BMI 30-34.9 Obesity, unspecified Medicare annual wellness visit, subsequent- Primary Routine general medical examination at a health care facility Advance directive discussed with patient Other specified counseling 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 Essential tremor Essential and other specified forms of tremor Primary insomnia Persistent disorder of initiating or maintaining sleep Mixed hyperlipidemia Mild persistent asthma without complication Unspecified asthma Gastroesophageal reflux disease with esophagitis without hemorrhage PUD (peptic ulcer disease) Peptic ulcer, unspecified site, unspecified as acute or chronic, without mention of hemorrhage, perforation, or obstruction Elevated fasting blood sugar Impaired fasting glucose Age-related osteoporosis without current pathological fracture Senile osteoporosis Vitamin D deficiency Unspecified vitamin D deficiency Bilateral carotid artery stenosis Occlusion and stenosis of carotid artery without mention of cerebral infarction Obesity, Class I, BMI 30-34.9 Obesity, unspecified Medication management Encounter for long-term (current) use of other medications documented in this encounter [facility]* Diagnosis Pre-operative examination- Primary Preoperative examination, unspecified 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 Other and unspecified derangement of medial meniscus Primary insomnia Persistent disorder of initiating or maintaining sleep Essential tremor Essential and other specified forms of tremor Mixed hyperlipidemia Mild persistent asthma without complication Unspecified asthma PUD (peptic ulcer disease) Peptic ulcer, unspecified site, unspecified as acute or chronic, without mention of hemorrhage, perforation, or obstruction Gastroesophageal reflux disease with esophagitis Bilateral carotid artery stenosis Occlusion and stenosis of carotid artery without mention of cerebral infarction Obesity, Class I, BMI 30-34.9 Obesity, unspecified Subacute cough Cough documented in this encounter [facility] note* Diagnosis Pre-operative examination- Primary Preoperative examination, unspecified 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 Other and unspecified derangement of medial meniscus Primary insomnia Persistent disorder of initiating or maintaining sleep Essential tremor Essential and other specified forms of tremor Mixed hyperlipidemia Mild persistent asthma without complication Unspecified asthma PUD (peptic ulcer disease) Peptic ulcer, unspecified site, unspecified as acute or chronic, without mention of hemorrhage, perforation, or obstruction Gastroesophageal reflux disease with esophagitis Bilateral carotid artery stenosis Occlusion and stenosis of carotid artery without mention of cerebral infarction Obesity, Class I, BMI 30-34.9 Obesity, unspecified Cough documented in this encounter [facility] note* Diagnosis Pre-operative examination- Primary Preoperative examination, unspecified 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 Other and unspecified derangement of medial meniscus Primary insomnia Persistent disorder of initiating or maintaining sleep Essential tremor Essential and other specified forms of tremor Mixed hyperlipidemia Mild persistent asthma without complication Unspecified asthma PUD (peptic ulcer disease) Peptic ulcer, unspecified site, unspecified as acute or chronic, without mention of hemorrhage, perforation, or obstruction Gastroesophageal reflux disease with esophagitis Bilateral carotid artery stenosis Occlusion and stenosis of carotid artery without mention of cerebral infarction Obesity, Class I, BMI 30-34.9 Obesity, unspecified Bilateral carotid artery stenosis- Primary Occlusion and stenosis of carotid artery without mention of cerebral infarction documented in this encounter [facility] note* Diagnosis Pre-operative examination- Primary Preoperative examination, unspecified 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 Other and unspecified derangement of medial meniscus Primary insomnia Persistent disorder of initiating or maintaining sleep Essential tremor Essential and other specified forms of tremor Mixed hyperlipidemia Mild persistent asthma without complication Unspecified asthma PUD (peptic ulcer disease) Peptic ulcer, unspecified site, unspecified as acute or chronic, without mention of hemorrhage, perforation, or obstruction Gastroesophageal reflux disease with esophagitis Bilateral carotid artery stenosis Occlusion and stenosis of carotid artery without mention of cerebral infarction Obesity, Class I, BMI 30-34.9 Obesity, unspecified 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 [facility] Diagnosis Pre-operative examination- Primary Preoperative examination, unspecified 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 Other and unspecified derangement of medial meniscus Primary insomnia Persistent disorder of initiating or maintaining sleep Essential tremor Essential and other specified forms of tremor Mixed hyperlipidemia Mild persistent asthma without complication Unspecified asthma PUD (peptic ulcer disease) Peptic ulcer, unspecified site, unspecified as acute or chronic, without mention of hemorrhage, perforation, or obstruction Gastroesophageal reflux disease with esophagitis Bilateral carotid artery stenosis Occlusion and stenosis of carotid artery without mention of cerebral infarction Obesity, Class I, BMI 30-34.9 Obesity, unspecified Mild persistent asthma without complication Unspecified asthma Primary insomnia Persistent disorder of initiating or maintaining sleep documented in this encounter [facility] note* Diagnosis Pre-operative examination- Primary Preoperative examination, unspecified 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 Other and unspecified derangement of medial meniscus Primary insomnia Persistent disorder of initiating or maintaining sleep Essential tremor Essential and other specified forms of tremor Mixed hyperlipidemia Mild persistent asthma without complication Unspecified asthma PUD (peptic ulcer disease) Peptic ulcer, unspecified site, unspecified as acute or chronic, without mention of hemorrhage, perforation, or obstruction Gastroesophageal reflux disease with esophagitis Bilateral carotid artery stenosis Occlusion and stenosis of carotid artery without mention of cerebral infarction Obesity, Class I, BMI 30-34.9 Obesity, unspecified Other secondary osteoarthritis of right knee- Primary [facility] Diagnosis Pre-operative examination- Primary Preoperative examination, unspecified 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 Other and unspecified derangement of medial meniscus Primary insomnia Persistent disorder of initiating or maintaining sleep Essential tremor Essential and other specified forms of tremor Mixed hyperlipidemia Mild persistent asthma without complication Unspecified asthma PUD (peptic ulcer disease) Peptic ulcer, unspecified site, unspecified as acute or chronic, without mention of hemorrhage, perforation, or obstruction Gastroesophageal reflux disease with esophagitis Bilateral carotid artery stenosis Occlusion and stenosis of carotid artery without mention of cerebral infarction Obesity, Class I, BMI 30-34.9 Obesity, unspecified Other secondary osteoarthritis of right knee documented in this encounter [facility] note* Diagnosis Pre-operative examination- Primary Preoperative examination, unspecified 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 Other and unspecified derangement of medial meniscus Primary insomnia Persistent disorder of initiating or maintaining sleep Essential tremor Essential and other specified forms of tremor Mixed hyperlipidemia Mild persistent asthma without complication Unspecified asthma PUD (peptic ulcer disease) Peptic ulcer, unspecified site, unspecified as acute or chronic, without mention of hemorrhage, perforation, or obstruction Gastroesophageal reflux disease with esophagitis Bilateral carotid artery stenosis Occlusion and stenosis of carotid artery without mention of cerebral infarction Obesity, Class I, BMI 30-34.9 Obesity, unspecified Other secondary osteoarthritis of right knee- Primary documented in this encounter [facility] note* Diagnosis Pre-operative examination- Primary Preoperative examination, unspecified 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 Other and unspecified derangement of medial meniscus Primary insomnia Persistent disorder of initiating or maintaining sleep Essential tremor Essential and other specified forms of tremor Mixed hyperlipidemia Mild persistent asthma without complication Unspecified asthma PUD (peptic ulcer disease) Peptic ulcer, unspecified site, unspecified as acute or chronic, without mention of hemorrhage, perforation, or obstruction Gastroesophageal reflux disease with esophagitis Bilateral carotid artery stenosis Occlusion and stenosis of carotid artery without mention of cerebral infarction Obesity, Class I, BMI 30-34.9 Obesity, unspecified COPD with exacerbation (HCC)- Primary Obstructive chronic bronchitis with exacerbation Age-related osteoporosis without current pathological fracture Senile osteoporosis Chronic bilateral low back pain, unspecified whether sciatica present Arthritis of left knee Unspecified arthropathy, lower leg documented in this encounter [facility] note* Diagnosis Pre-operative examination- Primary Preoperative examination, unspecified 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 Other and unspecified derangement of medial meniscus Primary insomnia Persistent disorder of initiating or maintaining sleep Essential tremor Essential and other specified forms of tremor Mixed hyperlipidemia Mild persistent asthma without complication Unspecified asthma PUD (peptic ulcer disease) Peptic ulcer, unspecified site, unspecified as acute or chronic, without mention of hemorrhage, perforation, or obstruction Gastroesophageal reflux disease with esophagitis Bilateral carotid artery stenosis Occlusion and stenosis of carotid artery without mention of cerebral infarction Obesity, Class I, BMI 30-34.9 Obesity, unspecified Primary osteoarthritis of right knee- Primary Primary localized osteoarthrosis, lower leg Primary osteoarthritis of right knee Primary localized osteoarthrosis, lower leg [facility] Diagnosis Pre-operative examination- Primary Preoperative examination, unspecified 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 Other and unspecified derangement of medial meniscus Primary insomnia Persistent disorder of initiating or maintaining sleep Essential tremor Essential and other specified forms of tremor Mixed hyperlipidemia Mild persistent asthma without complication Unspecified asthma PUD (peptic ulcer disease) Peptic ulcer, unspecified site, unspecified as acute or chronic, without mention of hemorrhage, perforation, or obstruction Gastroesophageal reflux disease with esophagitis Bilateral carotid artery stenosis Occlusion and stenosis of carotid artery without mention of cerebral infarction Obesity, Class I, BMI 30-34.9 Obesity, unspecified Chronic pain of right knee Primary osteoarthritis of right knee Primary localized osteoarthrosis, lower leg Primary osteoarthritis of right knee Primary localized osteoarthrosis, lower leg [facility] Diagnosis Pre-operative examination- Primary Preoperative examination, unspecified 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 Other and unspecified derangement of medial meniscus Primary insomnia Persistent disorder of initiating or maintaining sleep Essential tremor Essential and other specified forms of tremor Mixed hyperlipidemia Mild persistent asthma without complication Unspecified asthma PUD (peptic ulcer disease) Peptic ulcer, unspecified site, unspecified as acute or chronic, without mention of hemorrhage, perforation, or obstruction Gastroesophageal reflux disease with esophagitis Bilateral carotid artery stenosis Occlusion and stenosis of carotid artery without mention of cerebral infarction Obesity, Class I, BMI 30-34.9 Obesity, unspecified Pre-operative examination- Primary Preoperative examination, unspecified Abnormal electrocardiogram Nonspecific abnormal electrocardiogram (ECG) (EKG) LBBB (left bundle branch block) Other left bundle branch block Mixed hyperlipidemia Palpitations Mild persistent asthma without complication Unspecified asthma Gastroesophageal reflux disease with esophagitis without hemorrhage PUD (peptic ulcer disease) Peptic ulcer, unspecified site, unspecified as acute or chronic, without mention of hemorrhage, perforation, or obstruction Age-related osteoporosis without current pathological fracture Senile osteoporosis Anxiety and depression Dysthymic disorder Bilateral carotid artery stenosis Occlusion and stenosis of carotid artery without mention of cerebral infarction 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 Mixed incontinence Mixed incontinence urge and stress (male)(female) Essential tremor Essential and other specified forms of tremor Primary insomnia Persistent disorder of initiating or maintaining sleep Primary osteoarthritis of right knee Primary localized osteoarthrosis, lower leg * Assessment & Plan Note - Yari Rincon APRN.CNP - 07/03/2024 1:15 PM EST Associated Problem(s): Primary insomnia Assessment: controlled on rx * Assessment & Plan Note - Yari Rincon APRN.CNP - 07/03/2024 1:15 PM EST Associated Problem(s): Essential tremor Assessment: stable, no current tx * Assessment & Plan Note - Yari Rincon APRN.CNP - 07/03/2024 1:12 PM EST Associated Problem(s): Mixed incontinence Assessment: s/p bladder sling improved * Assessment & Plan Note - Yari Rincon APRN.CNP - 07/03/2024 1:12 PM EST Associated Problem(s): 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 and following vascular * Assessment & Plan Note - Yari Rincon APRN.CNP - 07/03/2024 1:12 PM EST Associated Problem(s): Bilateral carotid artery stenosis Assessment: US: 12/2018 20-40% tatyana, Seeing vascular, 02/2024 US stable * Assessment & Plan Note - Yari Rincon APRN.CNP - 07/03/2024 1:11 PM EST Associated Problem(s): Anxiety and depression Assessment: situational, no current tx, recommended f/u with PCP for management of symptoms, deniesSI/HI * Assessment & Plan Note - Yari Rincon APRN.CNP - 07/03/2024 1:10 PM EST Associated Problem(s): Age-related osteoporosis without current pathological fracture Assessment: declines tx, no recent pathological fx's * Assessment & Plan Note - Yari Rincon APRN.CNP - 07/03/2024 1:10 PM EST Associated Problem(s): PUD (peptic ulcer disease) Assessment: and h/o GERD, controlled on rx * Assessment & Plan Note - Yari Rincon APRN.CNP - 07/03/2024 1:09 PM EST Associated Problem(s): Gastroesophageal reflux disease with esophagitis Assessment: controlled on rx, s/p walter 2017 * Assessment & Plan Note - Yari Rincon APRN.CNP - 07/03/2024 1:09 PM EST Associated Problem(s): Mild persistent asthma without complication Assessment: follows Dr. Linn, Albuterol inhaler as needed 02/2024 PFT's IMPRESSION: Spirometry reveals a reduced FEV1/FVC with normal FEV1 and FVC values. This could reflect a normal presentation or could indicate mild obstruction. Clinical correlation recommended. The increase in FEF 25-75 post-bronchodilator reflects an improvement in the small airway obstruction. * Assessment & Plan Note - Yari Rincon APRN.CNP - 07/03/2024 1:09 PM EST Associated Problem(s): Palpitations Assessment: hx, no current tx or symptoms * Assessment & Plan Note - Yari Rincon APRN.CNP - 07/03/2024 1:07 PM EST Associated Problem(s): Mixed hyperlipidemia Assessment: diet controlled * Assessment & Plan Note - Yari Rincon APRN.CNP - 07/03/2024 1:07 PM EST Associated Problem(s): LBBB (left bundle branch block) Assessment: new on EKG, asymptomatic, stress test and echo ordered, limited availability for cardiac consult, dependent on testing results [facility] Diagnosis Pre-operative examination- Primary Preoperative examination, unspecified 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 Other and unspecified derangement of medial meniscus Primary insomnia Persistent disorder of initiating or maintaining sleep Essential tremor Essential and other specified forms of tremor Mixed hyperlipidemia Mild persistent asthma without complication Unspecified asthma PUD (peptic ulcer disease) Peptic ulcer, unspecified site, unspecified as acute or chronic, without mention of hemorrhage, perforation, or obstruction Gastroesophageal reflux disease with esophagitis Bilateral carotid artery stenosis Occlusion and stenosis of carotid artery without mention of cerebral infarction Obesity, Class I, BMI 30-34.9 Obesity, unspecified Pre-operative examination- Primary Preoperative examination, unspecified Abnormal electrocardiogram Nonspecific abnormal electrocardiogram (ECG) (EKG) LBBB (left bundle branch block) Other left bundle branch block Mixed hyperlipidemia Palpitations Mild persistent asthma without complication Unspecified asthma Gastroesophageal reflux disease with esophagitis without hemorrhage PUD (peptic ulcer disease) Peptic ulcer, unspecified site, unspecified as acute or chronic, without mention of hemorrhage, perforation, or obstruction Age-related osteoporosis without current pathological fracture Senile osteoporosis Anxiety and depression Dysthymic disorder Bilateral carotid artery stenosis Occlusion and stenosis of carotid artery without mention of cerebral infarction 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 Mixed incontinence Mixed incontinence urge and stress (male)(female) Essential tremor Essential and other specified forms of tremor Primary insomnia Persistent disorder of initiating or maintaining sleep Abnormal electrocardiogram Nonspecific abnormal electrocardiogram (ECG) (EKG) Primary osteoarthritis of right knee Primary localized osteoarthrosis, lower leg documented in this encounter [facility] note* Diagnosis Pre-operative examination- Primary Preoperative examination, unspecified 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 Other and unspecified derangement of medial meniscus Primary insomnia Persistent disorder of initiating or maintaining sleep Essential tremor Essential and other specified forms of tremor Mixed hyperlipidemia Mild persistent asthma without complication Unspecified asthma PUD (peptic ulcer disease) Peptic ulcer, unspecified site, unspecified as acute or chronic, without mention of hemorrhage, perforation, or obstruction Gastroesophageal reflux disease with esophagitis Bilateral carotid artery stenosis Occlusion and stenosis of carotid artery without mention of cerebral infarction Obesity, Class I, BMI 30-34.9 Obesity, unspecified Chronic pain of right knee- Primary Primary osteoarthritis of right knee Primary localized osteoarthrosis, lower leg Chronic pain of right knee Primary osteoarthritis of right knee Primary localized osteoarthrosis, lower leg Pre-operative examination- Primary Preoperative examination, unspecified Abnormal electrocardiogram Nonspecific abnormal electrocardiogram (ECG) (EKG) LBBB (left bundle branch block) Other left bundle branch block Mixed hyperlipidemia Palpitations Mild persistent asthma without complication Unspecified asthma Gastroesophageal reflux disease with esophagitis without hemorrhage PUD (peptic ulcer disease) Peptic ulcer, unspecified site, unspecified as acute or chronic, without mention of hemorrhage, perforation, or obstruction Age-related osteoporosis without current pathological fracture Senile osteoporosis Anxiety and depression Dysthymic disorder Bilateral carotid artery stenosis Occlusion and stenosis of carotid artery without mention of cerebral infarction 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 Mixed incontinence Mixed incontinence urge and stress (male)(female) Essential tremor Essential and other specified forms of tremor Primary insomnia Persistent disorder of initiating or maintaining sleep Primary osteoarthritis of right knee Primary localized osteoarthrosis, lower leg documented in this encounter [facility] note* Diagnosis Pre-operative examination- Primary Preoperative examination, unspecified 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 Other and unspecified derangement of medial meniscus Primary insomnia Persistent disorder of initiating or maintaining sleep Essential tremor Essential and other specified forms of tremor Mixed hyperlipidemia Mild persistent asthma without complication Unspecified asthma PUD (peptic ulcer disease) Peptic ulcer, unspecified site, unspecified as acute or chronic, without mention of hemorrhage, perforation, or obstruction Gastroesophageal reflux disease with esophagitis Bilateral carotid artery stenosis Occlusion and stenosis of carotid artery without mention of cerebral infarction Obesity, Class I, BMI 30-34.9 Obesity, unspecified Pre-operative examination- Primary Preoperative examination, unspecified Abnormal electrocardiogram Nonspecific abnormal electrocardiogram (ECG) (EKG) LBBB (left bundle branch block) Other left bundle branch block Mixed hyperlipidemia Palpitations Mild persistent asthma without complication Unspecified asthma Gastroesophageal reflux disease with esophagitis without hemorrhage PUD (peptic ulcer disease) Peptic ulcer, unspecified site, unspecified as acute or chronic, without mention of hemorrhage, perforation, or obstruction Age-related osteoporosis without current pathological fracture Senile osteoporosis Anxiety and depression Dysthymic disorder Bilateral carotid artery stenosis Occlusion and stenosis of carotid artery without mention of cerebral infarction 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 Mixed incontinence Mixed incontinence urge and stress (male)(female) Essential tremor Essential and other specified forms of tremor Primary insomnia Persistent disorder of initiating or maintaining sleep S/P total knee arthroplasty, right [facility] Diagnosis Pre-operative examination- Primary Preoperative examination, unspecified 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 Other and unspecified derangement of medial meniscus Primary insomnia Persistent disorder of initiating or maintaining sleep Essential tremor Essential and other specified forms of tremor Mixed hyperlipidemia Mild persistent asthma without complication Unspecified asthma PUD (peptic ulcer disease) Peptic ulcer, unspecified site, unspecified as acute or chronic, without mention of hemorrhage, perforation, or obstruction Gastroesophageal reflux disease with esophagitis Bilateral carotid artery stenosis Occlusion and stenosis of carotid artery without mention of cerebral infarction Obesity, Class I, BMI 30-34.9 Obesity, unspecified Pre-operative examination- Primary Preoperative examination, unspecified Abnormal electrocardiogram Nonspecific abnormal electrocardiogram (ECG) (EKG) LBBB (left bundle branch block) Other left bundle branch block Mixed hyperlipidemia Palpitations Mild persistent asthma without complication Unspecified asthma Gastroesophageal reflux disease with esophagitis without hemorrhage PUD (peptic ulcer disease) Peptic ulcer, unspecified site, unspecified as acute or chronic, without mention of hemorrhage, perforation, or obstruction Age-related osteoporosis without current pathological fracture Senile osteoporosis Anxiety and depression Dysthymic disorder Bilateral carotid artery stenosis Occlusion and stenosis of carotid artery without mention of cerebral infarction 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 Mixed incontinence Mixed incontinence urge and stress (male)(female) Essential tremor Essential and other specified forms of tremor Primary insomnia Persistent disorder of initiating or maintaining sleep S/P total knee arthroplasty, right- Primary documented in this encounter [facility]* Diagnosis Pre-operative examination- Primary Preoperative examination, unspecified 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 Other and unspecified derangement of medial meniscus Primary insomnia Persistent disorder of initiating or maintaining sleep Essential tremor Essential and other specified forms of tremor Mixed hyperlipidemia Mild persistent asthma without complication Unspecified asthma PUD (peptic ulcer disease) Peptic ulcer, unspecified site, unspecified as acute or chronic, without mention of hemorrhage, perforation, or obstruction Gastroesophageal reflux disease with esophagitis Bilateral carotid artery stenosis Occlusion and stenosis of carotid artery without mention of cerebral infarction Obesity, Class I, BMI 30-34.9 Obesity, unspecified Pre-operative examination- Primary Preoperative examination, unspecified Abnormal electrocardiogram Nonspecific abnormal electrocardiogram (ECG) (EKG) LBBB (left bundle branch block) Other left bundle branch block Mixed hyperlipidemia Palpitations Mild persistent asthma without complication Unspecified asthma Gastroesophageal reflux disease with esophagitis without hemorrhage PUD (peptic ulcer disease) Peptic ulcer, unspecified site, unspecified as acute or chronic, without mention of hemorrhage, perforation, or obstruction Age-related osteoporosis without current pathological fracture Senile osteoporosis Anxiety and depression Dysthymic disorder Bilateral carotid artery stenosis Occlusion and stenosis of carotid artery without mention of cerebral infarction 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 Mixed incontinence Mixed incontinence urge and stress (male)(female) Essential tremor Essential and other specified forms of tremor Primary insomnia Persistent disorder of initiating or maintaining sleep S/P total knee arthroplasty, [facility] Diagnosis Pre-operative examination- Primary Preoperative examination, unspecified 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 Other and unspecified derangement of medial meniscus Primary insomnia Persistent disorder of initiating or maintaining sleep Essential tremor Essential and other specified forms of tremor Mixed hyperlipidemia Mild persistent asthma without complication Unspecified asthma PUD (peptic ulcer disease) Peptic ulcer, unspecified site, unspecified as acute or chronic, without mention of hemorrhage, perforation, or obstruction Gastroesophageal reflux disease with esophagitis Bilateral carotid artery stenosis Occlusion and stenosis of carotid artery without mention of cerebral infarction Obesity, Class I, BMI 30-34.9 Obesity, unspecified Pre-operative examination- Primary Preoperative examination, unspecified Abnormal electrocardiogram Nonspecific abnormal electrocardiogram (ECG) (EKG) LBBB (left bundle branch block) Other left bundle branch block Mixed hyperlipidemia Palpitations Mild persistent asthma without complication Unspecified asthma Gastroesophageal reflux disease with esophagitis without hemorrhage PUD (peptic ulcer disease) Peptic ulcer, unspecified site, unspecified as acute or chronic, without mention of hemorrhage, perforation, or obstruction Age-related osteoporosis without current pathological fracture Senile osteoporosis Anxiety and depression Dysthymic disorder Bilateral carotid artery stenosis Occlusion and stenosis of carotid artery without mention of cerebral infarction 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 Mixed incontinence Mixed incontinence urge and stress (male)(female) Essential tremor Essential and other specified forms of tremor Primary insomnia Persistent disorder of initiating or maintaining sleep S/P total knee arthroplasty, right [facility] Diagnosis Pre-operative examination- Primary Preoperative examination, unspecified 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 Other and unspecified derangement of medial meniscus Primary insomnia Persistent disorder of initiating or maintaining sleep Essential tremor Essential and other specified forms of tremor Mixed hyperlipidemia Mild persistent asthma without complication Unspecified asthma PUD (peptic ulcer disease) Peptic ulcer, unspecified site, unspecified as acute or chronic, without mention of hemorrhage, perforation, or obstruction Gastroesophageal reflux disease with esophagitis Bilateral carotid artery stenosis Occlusion and stenosis of carotid artery without mention of cerebral infarction Obesity, Class I, BMI 30-34.9 Obesity, unspecified Pre-operative examination- Primary Preoperative examination, unspecified Abnormal electrocardiogram Nonspecific abnormal electrocardiogram (ECG) (EKG) LBBB (left bundle branch block) Other left bundle branch block Mixed hyperlipidemia Palpitations Mild persistent asthma without complication Unspecified asthma Gastroesophageal reflux disease with esophagitis without hemorrhage PUD (peptic ulcer disease) Peptic ulcer, unspecified site, unspecified as acute or chronic, without mention of hemorrhage, perforation, or obstruction Age-related osteoporosis without current pathological fracture Senile osteoporosis Anxiety and depression Dysthymic disorder Bilateral carotid artery stenosis Occlusion and stenosis of carotid artery without mention of cerebral infarction 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 Mixed incontinence Mixed incontinence urge and stress (male)(female) Essential tremor Essential and other specified forms of tremor Primary insomnia Persistent disorder of initiating or maintaining sleep S/P total knee arthroplasty, right [facility] Diagnosis Pre-operative examination- Primary Preoperative examination, unspecified 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 Other and unspecified derangement of medial meniscus Primary insomnia Persistent disorder of initiating or maintaining sleep Essential tremor Essential and other specified forms of tremor Mixed hyperlipidemia Mild persistent asthma without complication Unspecified asthma PUD (peptic ulcer disease) Peptic ulcer, unspecified site, unspecified as acute or chronic, without mention of hemorrhage, perforation, or obstruction Gastroesophageal reflux disease with esophagitis Bilateral carotid artery stenosis Occlusion and stenosis of carotid artery without mention of cerebral infarction Obesity, Class I, BMI 30-34.9 Obesity, unspecified Pre-operative examination- Primary Preoperative examination, unspecified Abnormal electrocardiogram Nonspecific abnormal electrocardiogram (ECG) (EKG) LBBB (left bundle branch block) Other left bundle branch block Mixed hyperlipidemia Palpitations Mild persistent asthma without complication Unspecified asthma Gastroesophageal reflux disease with esophagitis without hemorrhage PUD (peptic ulcer disease) Peptic ulcer, unspecified site, unspecified as acute or chronic, without mention of hemorrhage, perforation, or obstruction Age-related osteoporosis without current pathological fracture Senile osteoporosis Anxiety and depression Dysthymic disorder Bilateral carotid artery stenosis Occlusion and stenosis of carotid artery without mention of cerebral infarction 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 Mixed incontinence Mixed incontinence urge and stress (male)(female) Essential tremor Essential and other specified forms of tremor Primary insomnia Persistent disorder of initiating or maintaining sleep S/P total knee arthroplasty, right- Primary [facility] Pre-operative examination- Primary Preoperative examination, unspecified 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 Other and unspecified derangement of medial meniscus Primary insomnia Persistent disorder of initiating or maintaining sleep Essential tremor Essential and other specified forms of tremor Mixed hyperlipidemia Mild persistent asthma without complication Unspecified asthma PUD (peptic ulcer disease) Peptic ulcer, unspecified site, unspecified as acute or chronic, without mention of hemorrhage, perforation, or obstruction Gastroesophageal reflux disease with esophagitis Bilateral carotid artery stenosis Occlusion and stenosis of carotid artery without mention of cerebral infarction Obesity, Class I, BMI 30-34.9 Obesity, unspecified Pre-operative examination- Primary Preoperative examination, unspecified Abnormal electrocardiogram Nonspecific abnormal electrocardiogram (ECG) (EKG) LBBB (left bundle branch block) Other left bundle branch block Mixed hyperlipidemia Palpitations Mild persistent asthma without complication Unspecified asthma Gastroesophageal reflux disease with esophagitis without hemorrhage PUD (peptic ulcer disease) Peptic ulcer, unspecified site, unspecified as acute or chronic, without mention of hemorrhage, perforation, or obstruction Age-related osteoporosis without current pathological fracture Senile osteoporosis Anxiety and depression Dysthymic disorder Bilateral carotid artery stenosis Occlusion and stenosis of carotid artery without mention of cerebral infarction 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 Mixed incontinence Mixed incontinence urge and stress (male)(female) Essential tremor Essential and other specified forms of tremor Primary insomnia Persistent disorder of initiating or maintaining sleep S/P total knee arthroplasty, left- Primary documented in this encounter [facility]* Diagnosis Pre-operative examination- Primary Preoperative examination, unspecified 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 Other and unspecified derangement of medial meniscus Primary insomnia Persistent disorder of initiating or maintaining sleep Essential tremor Essential and other specified forms of tremor Mixed hyperlipidemia Mild persistent asthma without complication Unspecified asthma PUD (peptic ulcer disease) Peptic ulcer, unspecified site, unspecified as acute or chronic, without mention of hemorrhage, perforation, or obstruction Gastroesophageal reflux disease with esophagitis Bilateral carotid artery stenosis Occlusion and stenosis of carotid artery without mention of cerebral infarction Obesity, Class I, BMI 30-34.9 Obesity, unspecified Pre-operative examination- Primary Preoperative examination, unspecified Abnormal electrocardiogram Nonspecific abnormal electrocardiogram (ECG) (EKG) LBBB (left bundle branch block) Other left bundle branch block Mixed hyperlipidemia Palpitations Mild persistent asthma without complication Unspecified asthma Gastroesophageal reflux disease with esophagitis without hemorrhage PUD (peptic ulcer disease) Peptic ulcer, unspecified site, unspecified as acute or chronic, without mention of hemorrhage, perforation, or obstruction Age-related osteoporosis without current pathological fracture Senile osteoporosis Anxiety and depression Dysthymic disorder Bilateral carotid artery stenosis Occlusion and stenosis of carotid artery without mention of cerebral infarction 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 Mixed incontinence Mixed incontinence urge and stress (male)(female) Essential tremor Essential and other specified forms of tremor Primary insomnia Persistent disorder of initiating or maintaining sleep S/P total knee arthroplasty, left- Primary [facility]* Diagnosis Pre-operative examination- Primary Preoperative examination, unspecified 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 Other and unspecified derangement of medial meniscus Primary insomnia Persistent disorder of initiating or maintaining sleep Essential tremor Essential and other specified forms of tremor Mixed hyperlipidemia Mild persistent asthma without complication Unspecified asthma PUD (peptic ulcer disease) Peptic ulcer, unspecified site, unspecified as acute or chronic, without mention of hemorrhage, perforation, or obstruction Gastroesophageal reflux disease with esophagitis Bilateral carotid artery stenosis Occlusion and stenosis of carotid artery without mention of cerebral infarction Obesity, Class I, BMI 30-34.9 Obesity, unspecified Pre-operative examination- Primary Preoperative examination, unspecified Abnormal electrocardiogram Nonspecific abnormal electrocardiogram (ECG) (EKG) LBBB (left bundle branch block) Other left bundle branch block Mixed hyperlipidemia Palpitations Mild persistent asthma without complication Unspecified asthma Gastroesophageal reflux disease with esophagitis without hemorrhage PUD (peptic ulcer disease) Peptic ulcer, unspecified site, unspecified as acute or chronic, without mention of hemorrhage, perforation, or obstruction Age-related osteoporosis without current pathological fracture Senile osteoporosis Anxiety and depression Dysthymic disorder Bilateral carotid artery stenosis Occlusion and stenosis of carotid artery without mention of cerebral infarction 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 Mixed incontinence Mixed incontinence urge and stress (male)(female) Essential tremor Essential and other specified forms of tremor Primary insomnia Persistent disorder of initiating or maintaining sleep S/P total knee arthroplasty, left- Primary documented [facility]* Diagnosis Pre-operative examination- Primary Preoperative examination, unspecified 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 Other and unspecified derangement of medial meniscus Primary insomnia Persistent disorder of initiating or maintaining sleep Essential tremor Essential and other specified forms of tremor Mixed hyperlipidemia Mild persistent asthma without complication Unspecified asthma PUD (peptic ulcer disease) Peptic ulcer, unspecified site, unspecified as acute or chronic, without mention of hemorrhage, perforation, or obstruction Gastroesophageal reflux disease with esophagitis Bilateral carotid artery stenosis Occlusion and stenosis of carotid artery without mention of cerebral infarction Obesity, Class I, BMI 30-34.9 Obesity, unspecified Pre-operative examination- Primary Preoperative examination, unspecified Abnormal electrocardiogram Nonspecific abnormal electrocardiogram (ECG) (EKG) LBBB (left bundle branch block) Other left bundle branch block Mixed hyperlipidemia Palpitations Mild persistent asthma without complication Unspecified asthma Gastroesophageal reflux disease with esophagitis without hemorrhage PUD (peptic ulcer disease) Peptic ulcer, unspecified site, unspecified as acute or chronic, without mention of hemorrhage, perforation, or obstruction Age-related osteoporosis without current pathological fracture Senile osteoporosis Anxiety and depression Dysthymic disorder Bilateral carotid artery stenosis Occlusion and stenosis of carotid artery without mention of cerebral infarction 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 Mixed incontinence Mixed incontinence urge and stress (male)(female) Essential tremor Essential and other specified forms of tremor Primary insomnia Persistent disorder of initiating or maintaining sleep S/P total knee arthroplasty, right- Primary documented in this encounter [facility]* Diagnosis Pre-operative examination- Primary Preoperative examination, unspecified 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 Other and unspecified derangement of medial meniscus Primary insomnia Persistent disorder of initiating or maintaining sleep Essential tremor Essential and other specified forms of tremor Mixed hyperlipidemia Mild persistent asthma without complication Unspecified asthma PUD (peptic ulcer disease) Peptic ulcer, unspecified site, unspecified as acute or chronic, without mention of hemorrhage, perforation, or obstruction Gastroesophageal reflux disease with esophagitis Bilateral carotid artery stenosis Occlusion and stenosis of carotid artery without mention of cerebral infarction Obesity, Class I, BMI 30-34.9 Obesity, unspecified Pre-operative examination- Primary Preoperative examination, unspecified Abnormal electrocardiogram Nonspecific abnormal electrocardiogram (ECG) (EKG) LBBB (left bundle branch block) Other left bundle branch block Mixed hyperlipidemia Palpitations Mild persistent asthma without complication Unspecified asthma Gastroesophageal reflux disease with esophagitis without hemorrhage PUD (peptic ulcer disease) Peptic ulcer, unspecified site, unspecified as acute or chronic, without mention of hemorrhage, perforation, or obstruction Age-related osteoporosis without current pathological fracture Senile osteoporosis Anxiety and depression Dysthymic disorder Bilateral carotid artery stenosis Occlusion and stenosis of carotid artery without mention of cerebral infarction 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 Mixed incontinence Mixed incontinence urge and stress (male)(female) Essential tremor Essential and other specified forms of tremor Primary insomnia Persistent disorder of initiating or maintaining sleep S/P total knee arthroplasty, left- Primary [facility] Pre-operative examination- Primary Preoperative examination, unspecified 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 Other and unspecified derangement of medial meniscus Primary insomnia Persistent disorder of initiating or maintaining sleep Essential tremor Essential and other specified forms of tremor Mixed hyperlipidemia Mild persistent asthma without complication Unspecified asthma PUD (peptic ulcer disease) Peptic ulcer, unspecified site, unspecified as acute or chronic, without mention of hemorrhage, perforation, or obstruction Gastroesophageal reflux disease with esophagitis Bilateral carotid artery stenosis Occlusion and stenosis of carotid artery without mention of cerebral infarction Obesity, Class I, BMI 30-34.9 Obesity, unspecified Pre-operative examination- Primary Preoperative examination, unspecified Abnormal electrocardiogram Nonspecific abnormal electrocardiogram (ECG) (EKG) LBBB (left bundle branch block) Other left bundle branch block Mixed hyperlipidemia Palpitations Mild persistent asthma without complication Unspecified asthma Gastroesophageal reflux disease with esophagitis without hemorrhage PUD (peptic ulcer disease) Peptic ulcer, unspecified site, unspecified as acute or chronic, without mention of hemorrhage, perforation, or obstruction Age-related osteoporosis without current pathological fracture Senile osteoporosis Anxiety and depression Dysthymic disorder Bilateral carotid artery stenosis Occlusion and stenosis of carotid artery without mention of cerebral infarction 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 Mixed incontinence Mixed incontinence urge and stress (male)(female) Essential tremor Essential and other specified forms of tremor Primary insomnia Persistent disorder of initiating or maintaining sleep S/P total knee arthroplasty, left- Primary [facility] Diagnosis Pre-operative examination- Primary Preoperative examination, unspecified 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 Other and unspecified derangement of medial meniscus Primary insomnia Persistent disorder of initiating or maintaining sleep Essential tremor Essential and other specified forms of tremor Mixed hyperlipidemia Mild persistent asthma without complication Unspecified asthma PUD (peptic ulcer disease) Peptic ulcer, unspecified site, unspecified as acute or chronic, without mention of hemorrhage, perforation, or obstruction Gastroesophageal reflux disease with esophagitis Bilateral carotid artery stenosis Occlusion and stenosis of carotid artery without mention of cerebral infarction Obesity, Class I, BMI 30-34.9 Obesity, unspecified Pre-operative examination- Primary Preoperative examination, unspecified Abnormal electrocardiogram Nonspecific abnormal electrocardiogram (ECG) (EKG) LBBB (left bundle branch block) Other left bundle branch block Mixed hyperlipidemia Palpitations Mild persistent asthma without complication Unspecified asthma Gastroesophageal reflux disease with esophagitis without hemorrhage PUD (peptic ulcer disease) Peptic ulcer, unspecified site, unspecified as acute or chronic, without mention of hemorrhage, perforation, or obstruction Age-related osteoporosis without current pathological fracture Senile osteoporosis Anxiety and depression Dysthymic disorder Bilateral carotid artery stenosis Occlusion and stenosis of carotid artery without mention of cerebral infarction 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 Mixed incontinence Mixed incontinence urge and stress (male)(female) Essential tremor Essential and other specified forms of tremor Primary insomnia Persistent disorder of initiating or maintaining sleep S/P total knee arthroplasty, right- Primary [facility] Diagnosis Pre-operative examination- Primary Preoperative examination, unspecified 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 Other and unspecified derangement of medial meniscus Primary insomnia Persistent disorder of initiating or maintaining sleep Essential tremor Essential and other specified forms of tremor Mixed hyperlipidemia Mild persistent asthma without complication Unspecified asthma PUD (peptic ulcer disease) Peptic ulcer, unspecified site, unspecified as acute or chronic, without mention of hemorrhage, perforation, or obstruction Gastroesophageal reflux disease with esophagitis Bilateral carotid artery stenosis Occlusion and stenosis of carotid artery without mention of cerebral infarction Obesity, Class I, BMI 30-34.9 Obesity, unspecified Pre-operative examination- Primary Preoperative examination, unspecified Abnormal electrocardiogram Nonspecific abnormal electrocardiogram (ECG) (EKG) LBBB (left bundle branch block) Other left bundle branch block Mixed hyperlipidemia Palpitations Mild persistent asthma without complication Unspecified asthma Gastroesophageal reflux disease with esophagitis without hemorrhage PUD (peptic ulcer disease) Peptic ulcer, unspecified site, unspecified as acute or chronic, without mention of hemorrhage, perforation, or obstruction Age-related osteoporosis without current pathological fracture Senile osteoporosis Anxiety and depression Dysthymic disorder Bilateral carotid artery stenosis Occlusion and stenosis of carotid artery without mention of cerebral infarction 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 Mixed incontinence Mixed incontinence urge and stress (male)(female) Essential tremor Essential and other specified forms of tremor Primary insomnia Persistent disorder of initiating or maintaining sleep S/P total knee arthroplasty, left- Primary documented [facility]* Diagnosis Pre-operative examination- Primary Preoperative examination, unspecified 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 Other and unspecified derangement of medial meniscus Primary insomnia Persistent disorder of initiating or maintaining sleep Essential tremor Essential and other specified forms of tremor Mixed hyperlipidemia Mild persistent asthma without complication Unspecified asthma PUD (peptic ulcer disease) Peptic ulcer, unspecified site, unspecified as acute or chronic, without mention of hemorrhage, perforation, or obstruction Gastroesophageal reflux disease with esophagitis Bilateral carotid artery stenosis Occlusion and stenosis of carotid artery without mention of cerebral infarction Obesity, Class I, BMI 30-34.9 Obesity, unspecified Pre-operative examination- Primary Preoperative examination, unspecified Abnormal electrocardiogram Nonspecific abnormal electrocardiogram (ECG) (EKG) LBBB (left bundle branch block) Other left bundle branch block Mixed hyperlipidemia Palpitations Mild persistent asthma without complication Unspecified asthma Gastroesophageal reflux disease with esophagitis without hemorrhage PUD (peptic ulcer disease) Peptic ulcer, unspecified site, unspecified as acute or chronic, without mention of hemorrhage, perforation, or obstruction Age-related osteoporosis without current pathological fracture Senile osteoporosis Anxiety and depression Dysthymic disorder Bilateral carotid artery stenosis Occlusion and stenosis of carotid artery without mention of cerebral infarction 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 Mixed incontinence Mixed incontinence urge and stress (male)(female) Essential tremor Essential and other specified forms of tremor Primary insomnia Persistent disorder of initiating or maintaining sleep S/P total knee arthroplasty, left- Primary documented in this encounter [facility] note* Diagnosis Pre-operative examination- Primary Preoperative examination, unspecified 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 Other and unspecified derangement of medial meniscus Primary insomnia Persistent disorder of initiating or maintaining sleep Essential tremor Essential and other specified forms of tremor Mixed hyperlipidemia Mild persistent asthma without complication Unspecified asthma PUD (peptic ulcer disease) Peptic ulcer, unspecified site, unspecified as acute or chronic, without mention of hemorrhage, perforation, or obstruction Gastroesophageal reflux disease with esophagitis Bilateral carotid artery stenosis Occlusion and stenosis of carotid artery without mention of cerebral infarction Obesity, Class I, BMI 30-34.9 Obesity, unspecified Pre-operative examination- Primary Preoperative examination, unspecified Abnormal electrocardiogram Nonspecific abnormal electrocardiogram (ECG) (EKG) LBBB (left bundle branch block) Other left bundle branch block Mixed hyperlipidemia Palpitations Mild persistent asthma without complication Unspecified asthma Gastroesophageal reflux disease with esophagitis without hemorrhage PUD (peptic ulcer disease) Peptic ulcer, unspecified site, unspecified as acute or chronic, without mention of hemorrhage, perforation, or obstruction Age-related osteoporosis without current pathological fracture Senile osteoporosis Anxiety and depression Dysthymic disorder Bilateral carotid artery stenosis Occlusion and stenosis of carotid artery without mention of cerebral infarction 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 Mixed incontinence Mixed incontinence urge and stress (male)(female) Essential tremor Essential and other specified forms of tremor Primary insomnia Persistent disorder of initiating or maintaining sleep Encounter for gynecological examination with abnormal finding Routine gynecological examination Encounter for screening mammogram for malignant neoplasm of breast Other screening mammogram documented in this encounter [facility] note* Diagnosis Pre-operative examination- Primary Preoperative examination, unspecified 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 Other and unspecified derangement of medial meniscus Primary insomnia Persistent disorder of initiating or maintaining sleep Essential tremor Essential and other specified forms of tremor Mixed hyperlipidemia Mild persistent asthma without complication (HCC) Unspecified asthma PUD (peptic ulcer disease) Peptic ulcer, unspecified site, unspecified as acute or chronic, without mention of hemorrhage, perforation, or obstruction Gastroesophageal reflux disease with esophagitis Bilateral carotid artery stenosis Occlusion and stenosis of carotid artery without mention of cerebral infarction Obesity, Class I, BMI 30-34.9 Obesity, unspecified Pre-operative examination- Primary Preoperative examination, unspecified Abnormal electrocardiogram Nonspecific abnormal electrocardiogram (ECG) (EKG) LBBB (left bundle branch block) Other left bundle branch block Mixed hyperlipidemia Palpitations Mild persistent asthma without complication (HCC) Unspecified asthma Gastroesophageal reflux disease with esophagitis without hemorrhage PUD (peptic ulcer disease) Peptic ulcer, unspecified site, unspecified as acute or chronic, without mention of hemorrhage, perforation, or obstruction Age-related osteoporosis without current pathological fracture Senile osteoporosis Anxiety and depression Dysthymic disorder Bilateral carotid artery stenosis Occlusion and stenosis of carotid artery without mention of cerebral infarction 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 Mixed incontinence Mixed incontinence urge and stress (male)(female) Essential tremor Essential and other specified forms of tremor Primary insomnia Persistent disorder of initiating or maintaining sleep S/P total knee arthroplasty, right- Primary Back strain, [facility] Pre-operative examination- Primary Preoperative examination, unspecified 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 Other and unspecified derangement of medial meniscus Primary insomnia Persistent disorder of initiating or maintaining sleep Essential tremor Essential and other specified forms of tremor Mixed hyperlipidemia Mild persistent asthma without complication (HCC) Unspecified asthma PUD (peptic ulcer disease) Peptic ulcer, unspecified site, unspecified as acute or chronic, without mention of hemorrhage, perforation, or obstruction Gastroesophageal reflux disease with esophagitis Bilateral carotid artery stenosis Occlusion and stenosis of carotid artery without mention of cerebral infarction Obesity, Class I, BMI 30-34.9 Obesity, unspecified Pre-operative examination- Primary Preoperative examination, unspecified Abnormal electrocardiogram Nonspecific abnormal electrocardiogram (ECG) (EKG) LBBB (left bundle branch block) Other left bundle branch block Mixed hyperlipidemia Palpitations Mild persistent asthma without complication (HCC) Unspecified asthma Gastroesophageal reflux disease with esophagitis without hemorrhage PUD (peptic ulcer disease) Peptic ulcer, unspecified site, unspecified as acute or chronic, without mention of hemorrhage, perforation, or obstruction Age-related osteoporosis without current pathological fracture Senile osteoporosis Anxiety and depression Dysthymic disorder Bilateral carotid artery stenosis Occlusion and stenosis of carotid artery without mention of cerebral infarction 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 Mixed incontinence Mixed incontinence urge and stress (male)(female) Essential tremor Essential and other specified forms of tremor Primary insomnia Persistent disorder of initiating or maintaining sleep Mixed hyperlipidemia- Primary Essential tremor Essential and other specified forms of tremor Vitamin B12 deficiency Other B-complex deficiencies Elevated fasting blood sugar Impaired fasting glucose Age-related osteoporosis without current pathological fracture Senile osteoporosis Gastroesophageal reflux disease with esophagitis without hemorrhage Mild persistent asthma without complication (HCC) Unspecified asthma Vitamin D deficiency Unspecified vitamin D deficiency Mixed incontinence Mixed incontinence urge and stress (male)(female) 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 Acute left-sided low back pain without sciatica [facility] Diagnosis Pre-operative examination- Primary Preoperative examination, unspecified 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 Other and unspecified derangement of medial meniscus Primary insomnia Persistent disorder of initiating or maintaining sleep Essential tremor Essential and other specified forms of tremor Mixed hyperlipidemia Mild persistent asthma without complication (HCC) Unspecified asthma PUD (peptic ulcer disease) Peptic ulcer, unspecified site, unspecified as acute or chronic, without mention of hemorrhage, perforation, or obstruction Gastroesophageal reflux disease with esophagitis Bilateral carotid artery stenosis Occlusion and stenosis of carotid artery without mention of cerebral infarction Obesity, Class I, BMI 30-34.9 Obesity, unspecified Pre-operative examination- Primary Preoperative examination, unspecified Abnormal electrocardiogram Nonspecific abnormal electrocardiogram (ECG) (EKG) LBBB (left bundle branch block) Other left bundle branch block Mixed hyperlipidemia Palpitations Mild persistent asthma without complication (HCC) Unspecified asthma Gastroesophageal reflux disease with esophagitis without hemorrhage PUD (peptic ulcer disease) Peptic ulcer, unspecified site, unspecified as acute or chronic, without mention of hemorrhage, perforation, or obstruction Age-related osteoporosis without current pathological fracture Senile osteoporosis Anxiety and depression Dysthymic disorder Bilateral carotid artery stenosis Occlusion and stenosis of carotid artery without mention of cerebral infarction 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 Mixed incontinence Mixed incontinence urge and stress (male)(female) Essential tremor Essential and other specified forms of tremor Primary insomnia Persistent disorder of initiating or maintaining sleep Primary insomnia Persistent disorder of initiating or maintaining sleep [facility] Diagnosis Pre-operative examination- Primary Preoperative examination, unspecified 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 Other and unspecified derangement of medial meniscus Primary insomnia Persistent disorder of initiating or maintaining sleep Essential tremor Essential and other specified forms of tremor Mixed hyperlipidemia Mild persistent asthma without complication (HCC) Unspecified asthma PUD (peptic ulcer disease) Peptic ulcer, unspecified site, unspecified as acute or chronic, without mention of hemorrhage, perforation, or obstruction Gastroesophageal reflux disease with esophagitis Bilateral carotid artery stenosis Occlusion and stenosis of carotid artery without mention of cerebral infarction Obesity, Class I, BMI 30-34.9 Obesity, unspecified Pre-operative examination- Primary Preoperative examination, unspecified Abnormal electrocardiogram Nonspecific abnormal electrocardiogram (ECG) (EKG) LBBB (left bundle branch block) Other left bundle branch block Mixed hyperlipidemia Palpitations Mild persistent asthma without complication (HCC) Unspecified asthma Gastroesophageal reflux disease with esophagitis without hemorrhage PUD (peptic ulcer disease) Peptic ulcer, unspecified site, unspecified as acute or chronic, without mention of hemorrhage, perforation, or obstruction Age-related osteoporosis without current pathological fracture Senile osteoporosis Anxiety and depression Dysthymic disorder Bilateral carotid artery stenosis Occlusion and stenosis of carotid artery without mention of cerebral infarction 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 Mixed incontinence Mixed incontinence urge and stress (male)(female) Essential tremor Essential and other specified forms of tremor Primary insomnia Persistent disorder of initiating or maintaining sleep Primary insomnia Persistent disorder of initiating or maintaining sleep [facility] Diagnosis Pre-operative examination- Primary Preoperative examination, unspecified 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 Other and unspecified derangement of medial meniscus Primary insomnia Persistent disorder of initiating or maintaining sleep Essential tremor Essential and other specified forms of tremor Mixed hyperlipidemia Mild persistent asthma without complication (HCC) Unspecified asthma PUD (peptic ulcer disease) Peptic ulcer, unspecified site, unspecified as acute or chronic, without mention of hemorrhage, perforation, or obstruction Gastroesophageal reflux disease with esophagitis Bilateral carotid artery stenosis Occlusion and stenosis of carotid artery without mention of cerebral infarction Obesity, Class I, BMI 30-34.9 Obesity, unspecified Pre-operative examination- Primary Preoperative examination, unspecified Abnormal electrocardiogram Nonspecific abnormal electrocardiogram (ECG) (EKG) LBBB (left bundle branch block) Other left bundle branch block Mixed hyperlipidemia Palpitations Mild persistent asthma without complication (HCC) Unspecified asthma Gastroesophageal reflux disease with esophagitis without hemorrhage PUD (peptic ulcer disease) Peptic ulcer, unspecified site, unspecified as acute or chronic, without mention of hemorrhage, perforation, or obstruction Age-related osteoporosis without current pathological fracture Senile osteoporosis Anxiety and depression Dysthymic disorder Bilateral carotid artery stenosis Occlusion and stenosis of carotid artery without mention of cerebral infarction 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 Mixed incontinence Mixed incontinence urge and stress (male)(female) Essential tremor Essential and other specified forms of tremor Primary insomnia Persistent disorder of initiating or maintaining sleep Chronic pain of left ankle- Primary Swelling of ankle joint, left Effusion of ankle and foot joint [facility] Diagnosis Pre-operative examination- Primary Preoperative examination, unspecified 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 Other and unspecified derangement of medial meniscus Primary insomnia Persistent disorder of initiating or maintaining sleep Essential tremor Essential and other specified forms of tremor Mixed hyperlipidemia Mild persistent asthma without complication (HCC) Unspecified asthma PUD (peptic ulcer disease) Peptic ulcer, unspecified site, unspecified as acute or chronic, without mention of hemorrhage, perforation, or obstruction Gastroesophageal reflux disease with esophagitis Bilateral carotid artery stenosis Occlusion and stenosis of carotid artery without mention of cerebral infarction Obesity, Class I, BMI 30-34.9 Obesity, unspecified Pre-operative examination- Primary Preoperative examination, unspecified Abnormal electrocardiogram Nonspecific abnormal electrocardiogram (ECG) (EKG) LBBB (left bundle branch block) Other left bundle branch block Mixed hyperlipidemia Palpitations Mild persistent asthma without complication (HCC) Unspecified asthma Gastroesophageal reflux disease with esophagitis without hemorrhage PUD (peptic ulcer disease) Peptic ulcer, unspecified site, unspecified as acute or chronic, without mention of hemorrhage, perforation, or obstruction Age-related osteoporosis without current pathological fracture Senile osteoporosis Anxiety and depression Dysthymic disorder Bilateral carotid artery stenosis Occlusion and stenosis of carotid artery without mention of cerebral infarction 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 If your leg becomes much larger in size return to the emergency department 2. If you develop chest pain or shortness of breath abruptly return to the emergency department 3. There was also noted to be a nonvascular structure behind your knee. This will need to be followed by Dr. Nunn.[facility] Work Phone: Patient's home Plan of care note* Visit Details Visit Type -PT SOC Discipline -Physical Therapy Problems Problem Description Start Date Status Goals Interve ntions Medication Education Disciplines: Skilled Services 07/28/2024 Active 1 goal linked to scheduled/docume nted intervention 1 goal intervention scheduled/documen annika in this visit Sepsis Disciplines: Skilled Services 07/28/2024 Resolved on 07/28/2024 1 goal linked to scheduled/docume nted intervention 1 goal intervention scheduled/documen annika in this visit Physician Specific Parameters Disciplines: Skilled Services 07/28/2024 Active 1 goal linked to scheduled/docume nted intervention 1 goal intervention scheduled/documen annika in this visit Risk for Falls Disciplines: Skilled Services 07/28/2024 Active 1 goal linked to scheduled/docume nted intervention 1 goal intervention scheduled/documen annika in this visit Pain Disciplines: Skilled Services 07/28/2024 Active 1 goal linked to scheduled/docume nted intervention 1 goal intervention scheduled/documen annika in this visit High Risk Medications Disciplines: Skilled Services 07/28/2024 Active 1 goal linked to scheduled/docume nted intervention 2 goal interventions scheduled/documen annika in this visit Discharge Disciplines: Skilled Services 07/28/2024 Active 1 goal linked to scheduled/docume nted intervention 2 goal interventions scheduled/documen annika in this visit PT Impaired muscle performance and/or ROM Disciplines: PT 07/28/2024 Active 1 goal linked to scheduled/docume nted intervention 1 goal intervention scheduled/documen annika in this visit PT Orthopedic Condition Disciplines: PT 07/28/2024 Active 1 goal linked to scheduled/docume nted intervention 3 goal interventions scheduled/documen annika in this visit PT Learning Assessment Disciplines: PT 07/28/2024 Active 1 goal linked to scheduled/docume nted intervention 1 goal intervention scheduled/documen annika in this visit PT Cardiovascular Disease Disciplines: PT 07/28/2024 Resolved on 07/28/2024 1 goal linked to scheduled/docume nted intervention 1 goal intervention scheduled/documen annika in this visit PT Pulmonary Disease Disciplines: PT 07/28/2024 Resolved on 07/28/2024 1 goal linked to scheduled/docume nted intervention 1 goal intervention scheduled/documen annika in this visit Goals Goal Associated Problem Outcome Goal Met? Visit Notes Patient/caregiver will demonstrate ability to obtain, store, identify and administer ordered medications, keep accurate medication list in home, and adhere to medication schedule Description: Patient/caregiver will demonstrate ability to obtain, store, identify and administer ordered medications, keep accurate medication list in home, and adhere to medication schedule by 09/25/24. . Medication Education No Patient/caregiver will be able to identify and report symptoms of sepsis Description: Patient/caregiver will be able to identify signs/symptoms of sepsis infection and will verbalize actions to take if suspected by 09/25/24. . Sepsis Completed Yes Patient to maintain parameters within physician-specified ranges throughout certification period Physician Specific Parameters No Manage Risk for falls Description: Patient/caregiver will verbalize knowledge of individualized fall prevention strategies by 09/25/24. . Risk for Falls No Manage Pain Description: Patient/caregiver will verbalize knowledge and understanding of appropriate techniques to control pain, including pain medication and non-pharmacological techniques. Patient will verbalize or demonstrate an acceptable level of pain as evidenced by a pain score of <5/10 and improvement in ability to perform activities of daily living to be achieved by 09/25/24. . Pain No Patient/caregiver will teach back high risk medication side effect and precaution education Description: STG Patient/caregiver will verbalize understanding of high risk medication side effects and precautions to be achieved by 09/25/24. LTG Patient/caregiver will continue to verbalize understanding of high risk medication side effects and precautions throughout certification period. High Risk Medications No Manage discharge planning Description: Patient/caregiver will verbalize understanding of ongoing discharge plan provided related to disease management, arrangements for outpatient and/or community services, obtaining medications, supplies, and DME, as needed throughout certification period. Discharge No Improved Muscle Performance and/or ROM Description: LTG: Patient will demonstrate improved muscle performance to meet functional goals as evidenced by ability to tolerate 10 minutes of therapeutic activity, to be achieved by 08/12/24. . STG: Patient and/or caregiver will verbalize/demonstrate independence with home exercise program, to improve functional mobility, to be achieved by 08/05/24. LTG: Patient will demonstrate improved right knee active range of motion to 0-85 degrees, to meet functional goals, to be achieved by 08/12/24. . PT Impaired muscle performance and/or ROM No Manage Orthopedic Condition Description: Improve patient and/or caregiver understanding of post surgical and/or non-surgical orthopedic intervention management as evidenced by patient and/or caregiver able to verbalize, demonstrate, and teach back instruction, to be achieved by 08/12/24. . PT Orthopedic Condition No Demonstrate understanding of education Description: Patient and/or caregiver will understand educational instruction to be achieved by 08/12/24. . PT Learning Assessment No Manage Secondary Cardiovascular disease Description: Improve patient and/or caregiver understanding of secondary cardiovascular disease management as evidenced by patient and/or caregiver able to verbalize, demonstrate, and teach back instruction, to be achieved by 09/25/24. . PT Cardiovascular Disease Completed Yes Manage Secondary Pulmonary Disease Description: Improve patient and/or caregiver understanding of secondary pulmonary disease management as evidenced by patient and/or caregiver able to verbalize, demonstrate, and teach back instruction, to be achieved by 08/12/24. PT Pulmonary Disease Completed Yes Interventions Intervention Associated Problem/Goal Status Variance Visit Notes Medication Education Description: Evaluate/instruct patient/caregiver on obtaining, storing, identifying and administering ordered medications as well as keeping accurate medication list in the home and adhereing to medication schedule Problem:Medication Education Goal:Patient/caregive r will demonstrate ability to obtain, store, identify and administer ordered medications, keep accurate medication list in home, and adhere to medication schedule Completed Patient instructed on importance of keeping accurate medication list in home, need to take up-to-date medication list to all medical provider appointments and adhering to medication schedule. Risk of Sepsis Description: Patient is at risk for sepsis. Monitor closely for s/s of sepsis. Problem:Sepsis Goal:Patient/caregive r will be able to identify and report symptoms of sepsis Completed SPO2 Description: Notify Dr. Dhillon if pulse ox is <92% at rest. Problem:Physician Specific Parameters Goal:Patient to maintain parameters within physician-specified ranges throughout certification period Completed Instruct on individual fall risk factors and strategies to prevent falls and injuries caused by falls. Problem:Risk for Falls Goal:Manage Risk for falls Completed PT: Patient instructed on Eliminating Environmental Hazards: Keep pathways clear, Keep pets out of pathways, Remove unsafe rugs, Move furniture from pathways, Keep rooms and walkways well lit, Install hand rails/grab bars and Wear supportive shoes or non-skid socks Managing Impaired Functional Mobility: Use assistive device(s): front wheeled walker Managing Pain Instruct on pain and instruct on strategies to control pain Problem:Pain Goal:Manage Pain Completed patient instructed on techniques to control pain including Pharmacological measures and Non-Pharmacological measures; rest, positioning/elevation, mobility/therapeutic exercise and use of thermal modalities, apply ice to affected area . Opioids- educated on high risk medication Problem:High Risk Medications Goal:Patient/caregive r will teach back high risk medication side effect and precaution education Completed patient educated on taking medication(s) as prescribed by provider. Do not stop medication or alter doses without speaking with your provider. Discuss medication effectiveness or side effect concerns with your provider and home care team. Only take opioids as prescribed, do not share your medications, and take proper precautions in storing and properly disposing of opioids once no longer needed. Possible side effects of opioid medication including sedation, decreased rate of breathing, and constipation. Report over sedation to prescribing provider and practice deep breathing techniques every hour while awake. Prevent constipation by increasing water and fiber intake, increasing activity as tolerated, and use stool softener(s) as prescribed. Antiplatelet- educated on high risk medication Problem:High Risk Medications Goal:Patient/caregive r will teach back high risk medication side effect and precaution education Completed patient educated on taking medication(s) as prescribed by provider. Do not stop medication or alter doses without speaking with your provider. Discuss medication effectiveness or side effect concerns with your provider and home care team. Discuss all medications you are taking, even [id number] medicines, with your provider and pharmacist since many drugs can interact with antiplatelet medications. If you forget to take a dose, DO NOT take a double dose. Take the missed dose as soon as possible on the same day. DO NOT take a double dose the next day to make up for the missed dose. Watch for signs of abnormal or excessive bleeding and bruising (refer to Bleeding Precautions education). Call your health care provider right away if you suspect something is wrong. Instruct on ongoing discharge plan Problem:Discharge Goal:Manage discharge planning Completed Ongoing Discharge plan: Discharge plan discussed with patient including frequency and duration for home PT and plan for transition to: outpatient therapy. Instruct on importance of follow-up appts and continued monitoring with medical provider &/or chronic care clinic Problem:Discharge Goal:Manage discharge planning Completed Education provided on importance of compliance with follow-up appointment(s). Recommendations: patient/caregiver to follow up with scheduling appointment(s) for post-acute/primary care provider/chronic care clinic Physical Therapy Therapeutic Exercises Problem:PT Impaired muscle performance and/or ROM Goal:Improved Muscle Performance and/or ROM Completed patient instructed on strengthening and range of motion exercises including Supine : GS,QS,, HIPADD, HIP ABD, HEEL SLIDES, SAQ, X 10 supine passive knee ext x 26 seconds seated knee flexion to tolerance- 55* with verbal, tactile, visual and written cues for technique . patient instructed to perform home exercise program twice a day which included hourly ambulation. Instruct on orthopedic precautions and weight bearing restrictions Description: Orthopedic precautions including right total knee: no crossing legs, no knee flexed over pillow at rest, no kneeling, no squatting and no twisting. Weight bearing restrictions include: WBAT of involved extremity. Problem:PT Orthopedic Condition Goal:Manage Orthopedic Condition Completed patient instructed on orthopedic precautions and weight bearing restrictions. Instruct on management of edema Problem:PT Orthopedic Condition Goal:Manage Orthopedic Condition Completed Instruct patient on management of edema including elevation of RLE above the level of the heart and ice. Instruct on self-management of post surgical and/or non-surgical orthopedic intervention Problem:PT Orthopedic Condition Goal:Manage Orthopedic Condition Completed patient instructed on managagement of orthopedic condition, measures to avoid skin breakdown, staying well hydrated, eating foods with high protein, signs and symptoms of infection, signs and symptoms of DVT/PE, follow provider guidance for showering and instructed on when to call provider. Instruct and educate on knowledge deficits Problem:PT Learning Assessment Goal:Demonstrate understanding of education Completed patient verbalize and/or demonstrate understanding of physical therapy education including cardiac disease management, pulmonary disease management, orthopedic condition management, weight bearing precautions, surgical precautions, pain management, fall prevention strategies, home safety, functional activity and home exercise program. Education methods include: verbal cues and written instructions. Further education required to improve knowledge and compliance with orthopedic condition management, surgical precautions, pain management, fall prevention strategies, home safety, functional activity and home exercise program. Instruct on signs, symptoms, and management of secondary cardiovascular disease Problem:PT Cardiovascular Disease Goal:Manage Secondary Cardiovascular disease Completed Instructed patient on instructed on when to call provider. Instruct on signs, symptoms, and management of secondary pulmonary disease Problem:PT Pulmonary Disease Goal:Manage Secondary Pulmonary Disease Completed patient instructed on instructed on when to call provider. 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 Problems Problem Description Start Date Status Goals Interve ntions Medication Education Disciplines: Skilled Services 07/28/2024 Active 1 goal linked to scheduled/document ed intervention 1 goal intervention scheduled/document ed in this visit Physician Specific Parameters Disciplines: Skilled Services 07/28/2024 Active 1 goal linked to scheduled/document ed intervention 1 goal intervention scheduled/document ed in this visit Risk for Falls Disciplines: Skilled Services 07/28/2024 Active 1 goal linked to scheduled/document ed intervention 1 goal intervention scheduled/document ed in this visit Pain Disciplines: Skilled Services 07/28/2024 Active 1 goal linked to scheduled/document ed intervention 1 goal intervention scheduled/document ed in this visit High Risk Medications Disciplines: Skilled Services 07/28/2024 Active 1 goal linked to scheduled/document ed intervention 1 goal intervention scheduled/document ed in this visit Discharge Disciplines: Skilled Services 07/28/2024 Active 1 goal linked to scheduled/document ed intervention 2 goal interventions scheduled/document ed in this visit PT Impaired muscle performance and/or ROM Disciplines: PT 07/28/2024 Active 1 goal linked to scheduled/document ed intervention 1 goal intervention scheduled/document ed in this visit PT Impaired mobility Disciplines: PT 07/28/2024 Active 1 goal linked to scheduled/document ed intervention 1 goal intervention scheduled/document ed in this visit PT Impaired gait Disciplines: PT 07/28/2024 Active 1 goal linked to scheduled/document ed intervention 1 goal intervention scheduled/document ed in this visit PT Orthopedic Condition Disciplines: PT 07/28/2024 Active 1 goal linked to scheduled/document ed intervention 3 goal interventions scheduled/document ed in this visit PT Learning Assessment Disciplines: PT 07/28/2024 Active 1 goal linked to scheduled/document ed intervention 1 goal intervention scheduled/document ed in this visit Goals Goal Associated Problem Outcome Goal Met? Visit Notes Patient/caregiver will demonstrate ability to obtain, store, identify and administer ordered medications, keep accurate medication list in home, and adhere to medication schedule Description: Patient/caregiver will demonstrate ability to obtain, store, identify and administer ordered medications, keep accurate medication list in home, and adhere to medication schedule by 09/25/24. . Medication Education No Patient to maintain parameters within physician-specified ranges throughout certification period Physician Specific Parameters No Manage Risk for falls Description: Patient/caregiver will verbalize knowledge of individualized fall prevention strategies by 09/25/24. . Risk for Falls No Manage Pain Description: Patient/caregiver will verbalize knowledge and understanding of appropriate techniques to control pain, including pain medication and non-pharmacological techniques. Patient will verbalize or demonstrate an acceptable level of pain as evidenced by a pain score of <5/10 and improvement in ability to perform activities of daily living to be achieved by 09/25/24. . Pain No Patient/caregiver will teach back high risk medication side effect and precaution education Description: STG Patient/caregiver will verbalize understanding of high risk medication side effects and precautions to be achieved by 09/25/24. LTG Patient/caregiver will continue to verbalize understanding of high risk medication side effects and precautions throughout certification period. High Risk Medications No Manage discharge planning Description: Patient/caregiver will verbalize understanding of ongoing discharge plan provided related to disease management, arrangements for outpatient and/or community services, obtaining medications, supplies, and DME, as needed throughout certification period. Discharge No Improved Muscle Performance and/or ROM Description: LTG: Patient will demonstrate improved muscle performance to meet functional goals as evidenced by ability to tolerate 10 minutes of therapeutic activity, to be achieved by 08/12/24. . STG: Patient and/or caregiver will verbalize/demonstrate independence with home exercise program, to improve functional mobility, to be achieved by 08/05/24. LTG: Patient will demonstrate improved right knee active range of motion to 0-85 degrees, to meet functional goals, to be achieved by 08/12/24. . PT Impaired muscle performance and/or ROM No Improved Transfers Description: LTG: Patient will demonstrate safe transfers to/from bed, chair, toilet, couch, shower/tub and car independently with AD, to be achieved by 08/12/24. . PT Impaired mobility No Improved Gait Description: LTG: Patient will demonstrate improved gait ability as evidenced by ambulation 150 feet with front wheeled walker independently with AD, to return to safe household and community ambulation, in order to transition to OP PT, to be achieved by 08/12/24. . PT Impaired gait No Manage Orthopedic Condition Description: Improve patient and/or caregiver understanding of post surgical and/or non-surgical orthopedic intervention management as evidenced by patient and/or caregiver able to verbalize, demonstrate, and teach back instruction, to be achieved by 08/12/24. . PT Orthopedic Condition No Demonstrate understanding of education Description: Patient and/or caregiver will understand educational instruction to be achieved by 08/12/24. . PT Learning Assessment No Interventions Intervention Associated Problem/Goal Status Variance Visit Notes Medication Education Description: Evaluate/instruct patient/caregiver on obtaining, storing, identifying and administering ordered medications as well as keeping accurate medication list in the home and adhereing to medication schedule Problem:Medication Education Goal:Patient/caregive r will demonstrate ability to obtain, store, identify and administer ordered medications, keep accurate medication list in home, and adhere to medication schedule Completed Patient and Caregiver instructed on adhering to medication schedule and how to order refills. SPO2 Description: Notify Dr. Dhillon if pulse ox is <92% at rest. Problem:Physician Specific Parameters Goal:Patient to maintain parameters within physician-specified ranges throughout certification period Completed Instruct on individual fall risk factors and strategies to prevent falls and injuries caused by falls. Problem:Risk for Falls Goal:Manage Risk for falls Completed PT: Patient instructed on Managing Impaired Functional Mobility: Use assistive device(s): front wheeled walker Instruct on pain and instruct on strategies to control pain Problem:Pain Goal:Manage Pain Completed patient instructed on techniques to control pain including Pharmacological measures and Non-Pharmacological measures; positioning/elevation and use of thermal modalities, apply ice to affected area for the following prescribed frequency: prn. Opioids- educated on high risk medication Problem:High Risk Medications Goal:Patient/caregive r will teach back high risk medication side effect and precaution education Completed patient and caregiver educated on taking medication(s) as prescribed by provider. Do not stop medication or alter doses without speaking with your provider. Discuss medication effectiveness or side effect concerns with your provider and home care team. Only take opioids as prescribed, do not share your medications, and take proper precautions in storing and properly disposing of opioids once no longer needed. Possible side effects of opioid medication including sedation, decreased rate of breathing, and constipation. Report over sedation to prescribing provider and practice deep breathing techniques every hour while awake. Prevent constipation by increasing water and fiber intake, increasing activity as tolerated, and use stool softener(s) as prescribed. Instruct on ongoing discharge plan Problem:Discharge Goal:Manage discharge planning Completed Ongoing Discharge plan: Discharge plan discussed with patient including frequency and duration for home PT and plan for transition to: outpatient therapy. Instruct on importance of follow-up appts and continued monitoring with medical provider &/or chronic care clinic Problem:Discharge Goal:Manage discharge planning Completed Education provided on importance of compliance with follow-up appointment(s). Recommendations: appointment scheduled for OP PT Physical Therapy Therapeutic Exercises Problem:PT Impaired muscle performance and/or ROM Goal:Improved Muscle Performance and/or ROM Completed patient instructed on strengthening and range of motion exercises including AP, QS, GS, hip abd and add, saq w/ manual assist, heel slides x's10 each. supine ext hang x'1min. seated heel slides w/ plastic bag x's10 with verbal, tactile, visual and written cues for form and hold times. patient instructed to perform home exercise program twice a day which included above ex and hourly walking. Physical Therapy Transfer Training Problem:PT Impaired mobility Goal:Improved Transfers Completed Transfer training and instruction to patient and caregiver on safe transfers to and from bed and chair with supervision and stand by assist and verbal cues for pushing up from chair vs pulling up on walker Physical Therapy Gait Training Problem:PT Impaired gait Goal:Improved Gait Completed Gait training and instruction to patient on safe ambulation with front wheeled walker for 3x'50 feet with supervision, with verbal cues for corrections of gait deviations including heel to toe pattern. Instruct on orthopedic precautions and weight bearing restrictions Description: Orthopedic precautions including right total knee: no crossing legs, no knee flexed over pillow at rest, no kneeling, no squatting and no twisting. Weight bearing restrictions include: WBAT of involved extremity. Problem:PT Orthopedic Condition Goal:Manage Orthopedic Condition Completed patient instructed on orthopedic precautions. Instruct on management of edema Problem:PT Orthopedic Condition Goal:Manage Orthopedic Condition Completed Instruct patient and caregiver on management of edema including elevation of RLE above the level of the heart and ice. Instruct on self-management of post surgical and/or non-surgical orthopedic intervention Problem:PT Orthopedic Condition Goal:Manage Orthopedic Condition Completed patient instructed on staying well hydrated, signs and symptoms of infection, signs and symptoms of DVT/PE, instructed on when to call provider and instructed on when to call 911. Instruct and educate on knowledge deficits Problem:PT Learning Assessment Goal:Demonstrate understanding of education Completed patient and caregiver verbalize and/or demonstrate understanding of physical therapy education including pain management and home exercise program. Education methods include: verbal cues, written instructions and visual cues. Further education required to improve knowledge and compliance with home exercise program. 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 Discipline -Physical Therapy Problems Problem Description Start Date Status Goals Interve ntions Medication Education Disciplines: Skilled Services 07/28/2024 Active 1 goal linked to scheduled/document ed intervention 1 goal intervention scheduled/document ed in this visit Physician Specific Parameters Disciplines: Skilled Services 07/28/2024 Active 1 goal linked to scheduled/document ed intervention 1 goal intervention scheduled/document ed in this visit Risk for Falls Disciplines: Skilled Services 07/28/2024 Active 1 goal linked to scheduled/document ed intervention 1 goal intervention scheduled/document ed in this visit Pain Disciplines: Skilled Services 07/28/2024 Active 1 goal linked to scheduled/document ed intervention 1 goal intervention scheduled/document ed in this visit Discharge Disciplines: Skilled Services 07/28/2024 Active 1 goal linked to scheduled/document ed intervention 1 goal intervention scheduled/document ed in this visit PT Impaired muscle performance and/or ROM Disciplines: PT 07/28/2024 Active 1 goal linked to scheduled/document ed intervention 1 goal intervention scheduled/document ed in this visit PT Impaired gait Disciplines: PT 07/28/2024 Active 2 goals linked to scheduled/document ed interventions 2 goal interventions scheduled/document ed in this visit PT Orthopedic Condition Disciplines: PT 07/28/2024 Active 1 goal linked to scheduled/document ed intervention 4 goal interventions scheduled/document ed in this visit PT Learning Assessment Disciplines: PT 07/28/2024 Active 1 goal linked to scheduled/document ed intervention 1 goal intervention scheduled/document ed in this visit Goals Goal Associated Problem Outcome Goal Met? Visit Notes Patient/caregiver will demonstrate ability to obtain, store, identify and administer ordered medications, keep accurate medication list in home, and adhere to medication schedule Description: Patient/caregiver will demonstrate ability to obtain, store, identify and administer ordered medications, keep accurate medication list in home, and adhere to medication schedule by 09/25/24. . Medication Education No Patient to maintain parameters within physician-specified ranges throughout certification period Physician Specific Parameters No Manage Risk for falls Description: Patient/caregiver will verbalize knowledge of individualized fall prevention strategies by 09/25/24. . Risk for Falls No Manage Pain Description: Patient/caregiver will verbalize knowledge and understanding of appropriate techniques to control pain, including pain medication and non-pharmacological techniques. Patient will verbalize or demonstrate an acceptable level of pain as evidenced by a pain score of <5/10 and improvement in ability to perform activities of daily living to be achieved by 09/25/24. . Pain No Manage discharge planning Description: Patient/caregiver will verbalize understanding of ongoing discharge plan provided related to disease management, arrangements for outpatient and/or community services, obtaining medications, supplies, and DME, as needed throughout certification period. Discharge No Improved Muscle Performance and/or ROM Description: LTG: Patient will demonstrate improved muscle performance to meet functional goals as evidenced by ability to tolerate 10 minutes of therapeutic activity, to be achieved by 08/12/24. . STG: Patient and/or caregiver will verbalize/demonstrate independence with home exercise program, to improve functional mobility, to be achieved by 08/05/24. LTG: Patient will demonstrate improved right knee active range of motion to 0-85 degrees, to meet functional goals, to be achieved by 08/12/24. . PT Impaired muscle performance and/or ROM No Improved Stair Climbing Description: STG:: Patient will demonstrate improved stair negotiation as evidenced by ascend/descend 2 steps with walker independently, to be achieved by 08/05/24. PT Impaired gait No Improved Gait Description: LTG: Patient will demonstrate improved gait ability as evidenced by ambulation 150 feet with front wheeled walker independently with AD, to return to safe household and community ambulation, in order to transition to OP PT, to be achieved by 08/12/24. . PT Impaired gait No Manage Orthopedic Condition Description: Improve patient and/or caregiver understanding of post surgical and/or non-surgical orthopedic intervention management as evidenced by patient and/or caregiver able to verbalize, demonstrate, and teach back instruction, to be achieved by 08/12/24. . PT Orthopedic Condition No Demonstrate understanding of education Description: Patient and/or caregiver will understand educational instruction to be achieved by 08/12/24. . PT Learning Assessment No Interventions Intervention Associated Problem/Goal Status Variance Visit Notes Medication Education Description: Evaluate/instruct patient/caregiver on obtaining, storing, identifying and administering ordered medications as well as keeping accurate medication list in the home and adhereing to medication schedule Problem:Medication Education Goal:Patient/caregive r will demonstrate ability to obtain, store, identify and administer ordered medications, keep accurate medication list in home, and adhere to medication schedule Completed Patient instructed on importance of keeping accurate medication list in home. SPO2 Description: Notify Dr. Dhillon if pulse ox is <92% at rest. Problem:Physician Specific Parameters Goal:Patient to maintain parameters within physician-specified ranges throughout certification period Completed Instruct on individual fall risk factors and strategies to prevent falls and injuries caused by falls. Problem:Risk for Falls Goal:Manage Risk for falls Completed PT: Patient instructed on Managing Pain Instruct on pain and instruct on strategies to control pain Problem:Pain Goal:Manage Pain Completed patient instructed on techniques to control pain including Pharmacological measures and Non-Pharmacological measures; positioning/elevation and use of thermal modalities, apply ice to affected area for the following prescribed frequency: prn. Instruct on ongoing discharge plan Problem:Discharge Goal:Manage discharge planning Completed Ongoing Discharge plan: Discharge plan discussed with patient including frequency and duration for home PT and plan for transition to: outpatient therapy. Physical Therapy Therapeutic Exercises Problem:PT Impaired muscle performance and/or ROM Goal:Improved Muscle Performance and/or ROM Completed patient instructed on strengthening and range of motion exercises including ap, qs,gs, hip abd and add, saq and heel slides x's 10 each. supine ext hang x'1min. step flexion stretch and seated heel slides x's 10 each with verbal and visual cues for form. patient instructed to perform home exercise program twice a day which included above ex. Physical Therapy Stair Training Problem:PT Impaired gait Goal:Improved Stair Climbing Completed Stair training and instruction to patient on safe stair climbing, ascend/descend 1 steps, without railing and with ww with stand by assist and verbal cues for correct step pattern. Physical Therapy Gait Training Problem:PT Impaired gait Goal:Improved Gait Completed Gait training and instruction to patient on safe ambulation with front wheeled walker for 2x'75 feet with supervision, with verbal cues for corrections of gait deviations including heel to toe. Instruct on orthopedic precautions and weight bearing restrictions Description: Orthopedic precautions including right total knee: no crossing legs, no knee flexed over pillow at rest, no kneeling, no squatting and no twisting. Weight bearing restrictions include: WBAT of involved extremity. Problem:PT Orthopedic Condition Goal:Manage Orthopedic Condition Completed patient instructed on orthopedic precautions. Instruct on management of edema Problem:PT Orthopedic Condition Goal:Manage Orthopedic Condition Completed Instruct patient on management of edema including elevation of rle above the level of the heart and ice. Physical therapy to perform surgical incision/wound management Description: Removal of post-op dressing on POD 7-10 ( 08/02-). If no drainage is present, leave open to air; if drainage is present, cover with clean dressing and contact provider. Problem:PT Orthopedic Condition Goal:Manage Orthopedic Condition Completed Intervention completed this date. Instruct on self-management of post surgical and/or non-surgical orthopedic intervention Problem:PT Orthopedic Condition Goal:Manage Orthopedic Condition Completed patient instructed on incision care: no lotions,creams or rubbing, signs and symptoms of infection, signs and symptoms of DVT/PE, instructed on when to call provider and instructed on when to call 911. Instruct and educate on knowledge deficits Problem:PT Learning Assessment Goal:Demonstrate understanding of education Completed patient verbalize and/or demonstrate understanding of physical therapy education including integumentary and incision/wound care management and home exercise program. Education methods include: verbal cues, written instructions and visual cues. Further education required to improve knowledge and compliance with home exercise program. 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 Problems Problem Description Start Date Status Goals Interve ntions Medication Education Disciplines: Skilled Services 07/28/2024 Active 1 goal linked to scheduled/document ed intervention 1 goal intervention scheduled/document ed in this visit Physician Specific Parameters Disciplines: Skilled Services 07/28/2024 Active 1 goal linked to scheduled/document ed intervention 1 goal intervention scheduled/document ed in this visit Risk for Falls Disciplines: Skilled Services 07/28/2024 Active 1 goal linked to scheduled/document ed intervention 1 goal intervention scheduled/document ed in this visit Pain Disciplines: Skilled Services 07/28/2024 Active 1 goal linked to scheduled/document ed intervention 1 goal intervention scheduled/document ed in this visit Discharge Disciplines: Skilled Services 07/28/2024 Active 1 goal linked to scheduled/document ed intervention 1 goal intervention scheduled/document ed in this visit PT Impaired muscle performance and/or ROM Disciplines: PT 07/28/2024 Active 1 goal linked to scheduled/document ed intervention 1 goal intervention scheduled/document ed in this visit PT Impaired mobility Disciplines: PT 07/28/2024 Active 1 goal linked to scheduled/document ed intervention 1 goal intervention scheduled/document ed in this visit PT Impaired gait Disciplines: PT 07/28/2024 Active 1 goal linked to scheduled/document ed intervention 1 goal intervention scheduled/document ed in this visit PT Impaired balance Disciplines: PT 07/28/2024 Active 1 goal linked to scheduled/document ed intervention 1 goal intervention scheduled/document ed in this visit PT Orthopedic Condition Disciplines: PT 07/28/2024 Active 1 goal linked to scheduled/document ed intervention 2 goal interventions scheduled/document ed in this visit PT Learning Assessment Disciplines: PT 07/28/2024 Active 1 goal linked to scheduled/document ed intervention 1 goal intervention scheduled/document ed in this visit Goals Goal Associated Problem Outcome Goal Met? Visit Notes Patient/caregiver will demonstrate ability to obtain, store, identify and administer ordered medications, keep accurate medication list in home, and adhere to medication schedule Description: Patient/caregiver will demonstrate ability to obtain, store, identify and administer ordered medications, keep accurate medication list in home, and adhere to medication schedule by 09/25/24. . Medication Education No Patient to maintain parameters within physician-specified ranges throughout certification period Physician Specific Parameters No Manage Risk for falls Description: Patient/caregiver will verbalize knowledge of individualized fall prevention strategies by 09/25/24. . Risk for Falls No Manage Pain Description: Patient/caregiver will verbalize knowledge and understanding of appropriate techniques to control pain, including pain medication and non-pharmacological techniques. Patient will verbalize or demonstrate an acceptable level of pain as evidenced by a pain score of <5/10 and improvement in ability to perform activities of daily living to be achieved by 09/25/24. . Pain No Manage discharge planning Description: Patient/caregiver will verbalize understanding of ongoing discharge plan provided related to disease management, arrangements for outpatient and/or community services, obtaining medications, supplies, and DME, as needed throughout certification period. Discharge No Improved Muscle Performance and/or ROM Description: LTG: Patient will demonstrate improved muscle performance to meet functional goals as evidenced by ability to tolerate 10 minutes of therapeutic activity, to be achieved by 08/12/24. . STG: Patient and/or caregiver will verbalize/demonstrate independence with home exercise program, to improve functional mobility, to be achieved by 08/05/24. LTG: Patient will demonstrate improved right knee active range of motion to 0-85 degrees, to meet functional goals, to be achieved by 08/12/24. . PT Impaired muscle performance and/or ROM No Improved Transfers Description: LTG: Patient will demonstrate safe transfers to/from bed, chair, toilet, couch, shower/tub and car independently with AD, to be achieved by 08/12/24. . PT Impaired mobility No Improved Gait Description: LTG: Patient will demonstrate improved gait ability as evidenced by ambulation 150 feet with front wheeled walker independently with AD, to return to safe household and community ambulation, in order to transition to OP PT, to be achieved by 08/12/24. . PT Impaired gait No Improved Balance Description: LTG: Patient will demonstrate improved standing balance to meet functional goals as evidenced by TUG score of <40 to be achieved by 08/12/24. PT Impaired balance No Manage Orthopedic Condition Description: Improve patient and/or caregiver understanding of post surgical and/or non-surgical orthopedic intervention management as evidenced by patient and/or caregiver able to verbalize, demonstrate, and teach back instruction, to be achieved by 08/12/24. . PT Orthopedic Condition No Demonstrate understanding of education Description: Patient and/or caregiver will understand educational instruction to be achieved by 08/12/24. . PT Learning Assessment No Interventions Intervention Associated Problem/Goal Status Variance Visit Notes Medication Education Description: Evaluate/instruct patient/caregiver on obtaining, storing, identifying and administering ordered medications as well as keeping accurate medication list in the home and adhereing to medication schedule Problem:Medication Education Goal:Patient/caregive r will demonstrate ability to obtain, store, identify and administer ordered medications, keep accurate medication list in home, and adhere to medication schedule Completed Patient instructed on importance of keeping accurate medication list in home. SPO2 Description: Notify Dr. Dhillon if pulse ox is <92% at rest. Problem:Physician Specific Parameters Goal:Patient to maintain parameters within physician-specified ranges throughout certification period Completed Instruct on individual fall risk factors and strategies to prevent falls and injuries caused by falls. Problem:Risk for Falls Goal:Manage Risk for falls Completed PT: Patient instructed on Managing Impaired Functional Mobility: Use assistive device(s): front wheeled walker Instruct on pain and instruct on strategies to control pain Problem:Pain Goal:Manage Pain Completed patient instructed on techniques to control pain including Pharmacological measures and Non-Pharmacological measures; positioning/elevation and use of thermal modalities, apply ice to affected area for the following prescribed frequency: prn. Instruct on ongoing discharge plan Problem:Discharge Goal:Manage discharge planning Completed Ongoing Discharge plan: Discharge plan discussed with patient including frequency and duration for home PT and plan for transition to: outpatient therapy. Physical Therapy Therapeutic Exercises Problem:PT Impaired muscle performance and/or ROM Goal:Improved Muscle Performance and/or ROM Completed patient instructed on strengthening and range of motion exercises including qs,gs,ap,hip abd and add, saq and heel slides, supine ext hang x'2min. standing heel raises and hams curls x's 10 each.. seated heell slides x's 5 with verbal, visual and written cues for progressions. patient instructed to perform home exercise program twice a day which included above ex. Physical Therapy Transfer Training Problem:PT Impaired mobility Goal:Improved Transfers Completed Transfer training and instruction to patient on safe transfers to and from bed, chair and shower/tub with supervision and verbal cues for safety. Physical Therapy Gait Training Problem:PT Impaired gait Goal:Improved Gait Completed Gait training and instruction to patient on safe ambulation with front wheeled walker for 3x'75 feet with supervision, with verbal cues for corrections of gait deviations including heel to toe. Physical Therapy Balance Training Problem:PT Impaired balance Goal:Improved Balance Completed Developed, implemented, and instructed patient on standing balance exercises including standing w/BUE support. Instruct on management of edema Problem:PT Orthopedic Condition Goal:Manage Orthopedic Condition Completed Instruct patient on management of edema including elevation of RLE above the level of the heart and ice. Instruct on self-management of post surgical and/or non-surgical orthopedic intervention Problem:PT Orthopedic Condition Goal:Manage Orthopedic Condition Completed patient instructed on signs and symptoms of infection, signs and symptoms of DVT/PE, instructed on when to call provider and instructed on when to call 911. Instruct and educate on knowledge deficits Problem:PT Learning Assessment Goal:Demonstrate understanding of education Completed patient verbalize and/or demonstrate understanding of physical therapy education including pain management, functional activity and home exercise program. Education methods include: verbal cues and visual cues. Further education required to improve knowledge and compliance with home exercise program. 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 Problems Problem Description Start Date Status Goals Interve ntions Medication Education Disciplines: Skilled Services 07/28/2024 Active 1 goal linked to scheduled/document ed intervention 1 goal intervention scheduled/document ed in this visit Physician Specific Parameters Disciplines: Skilled Services 07/28/2024 Active 1 goal linked to scheduled/document ed intervention 1 goal intervention scheduled/document ed in this visit Risk for Falls Disciplines: Skilled Services 07/28/2024 Active 1 goal linked to scheduled/document ed intervention 1 goal intervention scheduled/document ed in this visit Pain Disciplines: Skilled Services 07/28/2024 Active 1 goal linked to scheduled/document ed intervention 1 goal intervention scheduled/document ed in this visit Discharge Disciplines: Skilled Services 07/28/2024 Active 1 goal linked to scheduled/document ed intervention 2 goal interventions scheduled/document ed in this visit PT Impaired muscle performance and/or ROM Disciplines: PT 07/28/2024 Active 1 goal linked to scheduled/document ed intervention 1 goal intervention scheduled/document ed in this visit PT Impaired gait Disciplines: PT 07/28/2024 Active 2 goals linked to scheduled/document ed interventions 2 goal interventions scheduled/document ed in this visit PT Impaired balance Disciplines: PT 07/28/2024 Active 1 goal linked to scheduled/document ed intervention 1 goal intervention scheduled/document ed in this visit PT Orthopedic Condition Disciplines: PT 07/28/2024 Active 1 goal linked to scheduled/document ed intervention 3 goal interventions scheduled/document ed in this visit PT Learning Assessment Disciplines: PT 07/28/2024 Active 1 goal linked to scheduled/document ed intervention 1 goal intervention scheduled/document ed in this visit Goals Goal Associated Problem Outcome Goal Met? Visit Notes Patient/caregiver will demonstrate ability to obtain, store, identify and administer ordered medications, keep accurate medication list in home, and adhere to medication schedule Description: Patient/caregiver will demonstrate ability to obtain, store, identify and administer ordered medications, keep accurate medication list in home, and adhere to medication schedule by 09/25/24. . Medication Education No Patient to maintain parameters within physician-specified ranges throughout certification period Physician Specific Parameters No Manage Risk for falls Description: Patient/caregiver will verbalize knowledge of individualized fall prevention strategies by 09/25/24. . Risk for Falls No Manage Pain Description: Patient/caregiver will verbalize knowledge and understanding of appropriate techniques to control pain, including pain medication and non-pharmacological techniques. Patient will verbalize or demonstrate an acceptable level of pain as evidenced by a pain score of <5/10 and improvement in ability to perform activities of daily living to be achieved by 09/25/24. . Pain No Manage discharge planning Description: Patient/caregiver will verbalize understanding of ongoing discharge plan provided related to disease management, arrangements for outpatient and/or community services, obtaining medications, supplies, and DME, as needed throughout certification period. Discharge No Improved Muscle Performance and/or ROM Description: LTG: Patient will demonstrate improved muscle performance to meet functional goals as evidenced by ability to tolerate 10 minutes of therapeutic activity, to be achieved by 08/12/24. . STG: Patient and/or caregiver will verbalize/demonstrate independence with home exercise program, to improve functional mobility, to be achieved by 08/05/24. LTG: Patient will demonstrate improved right knee active range of motion to 0-85 degrees, to meet functional goals, to be achieved by 08/12/24. . PT Impaired muscle performance and/or ROM No Improved Stair Climbing Description: STG:: Patient will demonstrate improved stair negotiation as evidenced by ascend/descend 2 steps with walker independently, to be achieved by 08/05/24. PT Impaired gait No Improved Gait Description: LTG: Patient will demonstrate improved gait ability as evidenced by ambulation 150 feet with front wheeled walker independently with AD, to return to safe household and community ambulation, in order to transition to OP PT, to be achieved by 08/12/24. . PT Impaired gait No Improved Balance Description: LTG: Patient will demonstrate improved standing balance to meet functional goals as evidenced by TUG score of <40 to be achieved by 08/12/24. PT Impaired balance No Manage Orthopedic Condition Description: Improve patient and/or caregiver understanding of post surgical and/or non-surgical orthopedic intervention management as evidenced by patient and/or caregiver able to verbalize, demonstrate, and teach back instruction, to be achieved by 08/12/24. . PT Orthopedic Condition No Demonstrate understanding of education Description: Patient and/or caregiver will understand educational instruction to be achieved by 08/12/24. . PT Learning Assessment No Interventions Intervention Associated Problem/Goal Status Variance Visit Notes Medication Education Description: Evaluate/instruct patient/caregiver on obtaining, storing, identifying and administering ordered medications as well as keeping accurate medication list in the home and adhereing to medication schedule Problem:Medication Education Goal:Patient/caregive r will demonstrate ability to obtain, store, identify and administer ordered medications, keep accurate medication list in home, and adhere to medication schedule Completed Patient instructed on importance of keeping accurate medication list in home. SPO2 Description: Notify Dr. Dhillon if pulse ox is <92% at rest. Problem:Physician Specific Parameters Goal:Patient to maintain parameters within physician-specified ranges throughout certification period Completed Instruct on individual fall risk factors and strategies to prevent falls and injuries caused by falls. Problem:Risk for Falls Goal:Manage Risk for falls Completed PT: Patient instructed on Eliminating Environmental Hazards: Keep pathways clear and Keep pets out of pathways Instruct on pain and instruct on strategies to control pain Problem:Pain Goal:Manage Pain Completed patient instructed on techniques to control pain including Pharmacological measures and Non-Pharmacological measures; positioning/elevation and use of thermal modalities, apply ice to affected area for the following prescribed frequency: prn. Deliver [facility] Problem:Discharge Goal:Manage discharge planning Completed Delivered [facility] on 08/08/24 for discharge date of 08/11/24. Instruct on ongoing discharge plan Problem:Discharge Goal:Manage discharge planning Completed Ongoing Discharge plan: Discharge plan discussed with patient including frequency and duration for home PT and plan for transition to: outpatient therapy. Physical Therapy Therapeutic Exercises Problem:PT Impaired muscle performance and/or ROM Goal:Improved Muscle Performance and/or ROM Completed patient instructed on strengthening and range of motion exercises including tatyana standing iman toe raises, hip abd and flexion, hams curls x's 10each, step flexion and ext stretch x's 10 each. seated heel slides x's 10 with verbal, visual and written cues for form and progressions. patient instructed to perform home exercise program twice a day which included above ex. Physical Therapy Stair Training Problem:PT Impaired gait Goal:Improved Stair Climbing Completed Stair training and instruction to patient on safe stair climbing, ascend/descend 1 steps, without railing and with ww with supervision and verbal cues for correct step pattern. Physical Therapy Gait Training Problem:PT Impaired gait Goal:Improved Gait Completed Gait training and instruction to patient on safe ambulation with front wheeled walker for 3x'60 feet with supervision, with verbal cues for corrections of gait deviations including safety. Physical Therapy Balance Training Problem:PT Impaired balance Goal:Improved Balance Completed Developed, implemented, and instructed patient on standing balance exercises including tatyana standing ex. Instruct on orthopedic precautions and weight bearing restrictions Description: Orthopedic precautions including right total knee: no crossing legs, no knee flexed over pillow at rest, no kneeling, no squatting and no twisting. Weight bearing restrictions include: WBAT of involved extremity. Problem:PT Orthopedic Condition Goal:Manage Orthopedic Condition Completed patient instructed on orthopedic precautions. Instruct on management of edema Problem:PT Orthopedic Condition Goal:Manage Orthopedic Condition Completed Instruct patient on management of edema including elevation of rle above the level of the heart and ice. Instruct on self-management of post surgical and/or non-surgical orthopedic intervention Problem:PT Orthopedic Condition Goal:Manage Orthopedic Condition Completed patient instructed on signs and symptoms of infection, signs and symptoms of DVT/PE, follow provider guidance for showering , instructed on when to call provider and instructed on when to call 911. Instruct and educate on knowledge deficits Problem:PT Learning Assessment Goal:Demonstrate understanding of education Completed patient verbalize and/or demonstrate understanding of physical therapy education including home exercise program. Education methods include: verbal cues, written instructions and visual cues. Further education required to improve knowledge and compliance with home exercise program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 Discipline -Physical Therapy Problems Problem Description Start Date Status Goals Interve ntions Medication Education Disciplines: Skilled Services 07/28/2024 Active 1 goal linked to scheduled/document ed intervention 1 goal intervention scheduled/document ed in this visit Physician Specific Parameters Disciplines: Skilled Services 07/28/2024 Active 1 goal linked to scheduled/document ed intervention 1 goal intervention scheduled/document ed in this visit Risk for Falls Disciplines: Skilled Services 07/28/2024 Active 1 goal linked to scheduled/document ed intervention 1 goal intervention scheduled/document ed in this visit Pain Disciplines: Skilled Services 07/28/2024 Active 1 goal linked to scheduled/document ed intervention 1 goal intervention scheduled/document ed in this visit Discharge Disciplines: Skilled Services 07/28/2024 Active 1 goal linked to scheduled/document ed intervention 2 goal interventions scheduled/document ed in this visit PT Impaired muscle performance and/or ROM Disciplines: PT 07/28/2024 Active 1 goal linked to scheduled/document ed intervention 1 goal intervention scheduled/document ed in this visit PT Impaired gait Disciplines: PT 07/28/2024 Active 2 goals linked to scheduled/document ed interventions 2 goal interventions scheduled/document ed in this visit PT Impaired balance Disciplines: PT 07/28/2024 Active 1 goal linked to scheduled/document ed intervention 1 goal intervention scheduled/document ed in this visit PT Orthopedic Condition Disciplines: PT 07/28/2024 Active 1 goal linked to scheduled/document ed intervention 3 goal interventions scheduled/document ed in this visit Goals Goal Associated Problem Outcome Goal Met? Visit Notes Patient/caregiver will demonstrate ability to obtain, store, identify and administer ordered medications, keep accurate medication list in home, and adhere to medication schedule Description: Patient/caregiver will demonstrate ability to obtain, store, identify and administer ordered medications, keep accurate medication list in home, and adhere to medication schedule by 09/25/24. . Medication Education No Patient to maintain parameters within physician-specified ranges throughout certification period Physician Specific Parameters No Manage Risk for falls Description: Patient/caregiver will verbalize knowledge of individualized fall prevention strategies by 09/25/24. . Risk for Falls No Manage Pain Description: Patient/caregiver will verbalize knowledge and understanding of appropriate techniques to control pain, including pain medication and non-pharmacological techniques. Patient will verbalize or demonstrate an acceptable level of pain as evidenced by a pain score of <5/10 and improvement in ability to perform activities of daily living to be achieved by 09/25/24. . Pain No Manage discharge planning Description: Patient/caregiver will verbalize understanding of ongoing discharge plan provided related to disease management, arrangements for outpatient and/or community services, obtaining medications, supplies, and DME, as needed throughout certification period. Discharge No Improved Muscle Performance and/or ROM Description: LTG: Patient will demonstrate improved muscle performance to meet functional goals as evidenced by ability to tolerate 10 minutes of therapeutic activity, to be achieved by 08/12/24. . STG: Patient and/or caregiver will verbalize/demonstrate independence with home exercise program, to improve functional mobility, to be achieved by 08/05/24. LTG: Patient will demonstrate improved right knee active range of motion to 0-85 degrees, to meet functional goals, to be achieved by 08/12/24. . PT Impaired muscle performance and/or ROM No Improved Stair Climbing Description: STG:: Patient will demonstrate improved stair negotiation as evidenced by ascend/descend 2 steps with walker independently, to be achieved by 08/05/24. PT Impaired gait No Improved Gait Description: LTG: Patient will demonstrate improved gait ability as evidenced by ambulation 150 feet with front wheeled walker independently with AD, to return to safe household and community ambulation, in order to transition to OP PT, to be achieved by 08/12/24. . PT Impaired gait No Improved Balance Description: LTG: Patient will demonstrate improved standing balance to meet functional goals as evidenced by TUG score of <40 to be achieved by 08/12/24. PT Impaired balance No Manage Orthopedic Condition Description: Improve patient and/or caregiver understanding of post surgical and/or non-surgical orthopedic intervention management as evidenced by patient and/or caregiver able to verbalize, demonstrate, and teach back instruction, to be achieved by 08/12/24. . PT Orthopedic Condition No Interventions Intervention Associated Problem/Goal Status Variance Visit Notes Medication Education Description: Evaluate/instruct patient/caregiver on obtaining, storing, identifying and administering ordered medications as well as keeping accurate medication list in the home and adhereing to medication schedule Problem:Medication Education Goal:Patient/caregive r will demonstrate ability to obtain, store, identify and administer ordered medications, keep accurate medication list in home, and adhere to medication schedule Completed Patient instructed on importance of keeping accurate medication list in home. SPO2 Description: Notify Dr. Dhillon if pulse ox is <92% at rest. Problem:Physician Specific Parameters Goal:Patient to maintain parameters within physician-specified ranges throughout certification period Completed Instruct on individual fall risk factors and strategies to prevent falls and injuries caused by falls. Problem:Risk for Falls Goal:Manage Risk for falls Completed PT: Patient instructed on Managing Impaired Functional Mobility: Use assistive device(s): front wheeled walker Instruct on pain and instruct on strategies to control pain Problem:Pain Goal:Manage Pain Completed patient instructed on techniques to control pain including Non-Pharmacological measures; positioning/elevation and use of thermal modalities, apply ice to affected area for the following prescribed frequency: prn. Instruct on ongoing discharge plan Problem:Discharge Goal:Manage discharge planning Completed Ongoing Discharge plan: Discharge plan discussed with patient including frequency and duration for home PT and plan for transition to: outpatient therapy. Instruct on importance of follow-up appts and continued monitoring with medical provider &/or chronic care clinic Problem:Discharge Goal:Manage discharge planning Completed Education provided on importance of compliance with follow-up appointment(s). Recommendations: patient/caregiver to follow up with scheduling appointment(s) for post-acute/primary care provider/chronic care clinic Physical Therapy Therapeutic Exercises Problem:PT Impaired muscle performance and/or ROM Goal:Improved Muscle Performance and/or ROM Completed patient instructed on strengthening and range of motion exercises including standing heel toe raises, RLE hip abd,flexion, extension and hams curls x's 10each. step flexion stretch and seated heel slides x's 5-10 each with verbal and visual cues for form. patient instructed to perform home exercise program twice a day which included above ex. Physical Therapy Stair Training Problem:PT Impaired gait Goal:Improved Stair Climbing Completed Stair training and instruction to patient on safe stair climbing, ascend/descend 1 steps, without railing and with ww with supervision and verbal cues for safety. Physical Therapy Gait Training Problem:PT Impaired gait Goal:Improved Gait Completed Gait training and instruction to patient on safe ambulation with single point cane for 4x'50 feet with stand by assist, with verbal and visual cues for corrections of gait deviations including correct use Adjusted to correct height. Physical Therapy Balance Training Problem:PT Impaired balance Goal:Improved Balance Completed Developed, implemented, and instructed patient on standing balance exercises including standing exercises and cane training. Instruct on orthopedic precautions and weight bearing restrictions Description: Orthopedic precautions including right total knee: no crossing legs, no knee flexed over pillow at rest, no kneeling, no squatting and no twisting. Weight bearing restrictions include: WBAT of involved extremity. Problem:PT Orthopedic Condition Goal:Manage Orthopedic Condition Completed patient instructed on orthopedic precautions. Instruct on management of edema Problem:PT Orthopedic Condition Goal:Manage Orthopedic Condition Completed Instruct patient on management of edema including elevation of rle above the level of the heart and ice. Instruct on self-management of post surgical and/or non-surgical orthopedic intervention Problem:PT Orthopedic Condition Goal:Manage Orthopedic Condition Completed patient instructed on signs and symptoms of infection, signs and symptoms of DVT/PE, instructed on when to call provider and instructed on when to call 911. [facility] Visit Details Visit Type -PT AGENCY DC W V ISIT Discipline -Physical Therapy Problems Problem Description Start Date Status Goals Interve ntions Medication Education Disciplines: Skilled Services 07/28/2024 Resolved on 08/11/2024 1 goal linked to scheduled/document ed intervention Physician Specific Parameters Disciplines: Skilled Services 07/28/2024 Resolved on 08/11/2024 1 goal linked to scheduled/document ed intervention 1 goal intervention scheduled/document ed in this visit Risk for Falls Disciplines: Skilled Services 07/28/2024 Resolved on 08/11/2024 1 goal linked to scheduled/document ed intervention 1 goal intervention scheduled/document ed in this visit Pain Disciplines: Skilled Services 07/28/2024 Resolved on 08/11/2024 1 goal linked to scheduled/document ed intervention 1 goal intervention scheduled/document ed in this visit High Risk Medications Disciplines: Skilled Services 07/28/2024 Resolved on 08/11/2024 1 goal linked to scheduled/document ed intervention Discharge Disciplines: Skilled Services 07/28/2024 Resolved on 08/11/2024 1 goal linked to scheduled/document ed intervention PT Impaired muscle performance and/or ROM Disciplines: PT 07/28/2024 Resolved on 08/11/2024 1 goal linked to scheduled/document ed intervention 1 goal intervention scheduled/document ed in this visit PT Impaired mobility Disciplines: PT 07/28/2024 Resolved on 08/11/2024 2 goals linked to scheduled/document ed interventions 2 goal interventions scheduled/document ed in this visit PT Impaired gait Disciplines: PT 07/28/2024 Resolved on 08/11/2024 2 goals linked to scheduled/document ed interventions 2 goal interventions scheduled/document ed in this visit PT Impaired balance Disciplines: PT 07/28/2024 Resolved on 08/11/2024 1 goal linked to scheduled/document ed intervention 1 goal intervention scheduled/document ed in this visit PT Orthopedic Condition Disciplines: PT 07/28/2024 Resolved on 08/11/2024 1 goal linked to scheduled/document ed intervention 3 goal interventions scheduled/document ed in this visit PT Learning Assessment Disciplines: PT 07/28/2024 Resolved on 08/11/2024 1 goal linked to scheduled/document ed intervention 1 goal intervention scheduled/document ed in this visit Goals Goal Associated Problem Outcome Goal Met? Visit Notes Patient/caregiver will demonstrate ability to obtain, store, identify and administer ordered medications, keep accurate medication list in home, and adhere to medication schedule Description: Patient/caregiver will demonstrate ability to obtain, store, identify and administer ordered medications, keep accurate medication list in home, and adhere to medication schedule by 09/25/24. . Medication Education Completed Yes Patient to maintain parameters within physician-specified ranges throughout certification period Physician Specific Parameters Completed Yes Manage Risk for falls Description: Patient/caregiver will verbalize knowledge of individualized fall prevention strategies by 09/25/24. . Risk for Falls Completed Yes Manage Pain Description: Patient/caregiver will verbalize knowledge and understanding of appropriate techniques to control pain, including pain medication and non-pharmacological techniques. Patient will verbalize or demonstrate an acceptable level of pain as evidenced by a pain score of <5/10 and improvement in ability to perform activities of daily living to be achieved by 09/25/24. . Pain Completed Yes Patient/caregiver will teach back high risk medication side effect and precaution education Description: STG Patient/caregiver will verbalize understanding of high risk medication side effects and precautions to be achieved by 09/25/24. LTG Patient/caregiver will continue to verbalize understanding of high risk medication side effects and precautions throughout certification period. High Risk Medications Completed Yes Manage discharge planning Description: Patient/caregiver will verbalize understanding of ongoing discharge plan provided related to disease management, arrangements for outpatient and/or community services, obtaining medications, supplies, and DME, as needed throughout certification period. Discharge Completed Yes Improved Muscle Performance and/or ROM Description: LTG: Patient will demonstrate improved muscle performance to meet functional goals as evidenced by ability to tolerate 10 minutes of therapeutic activity, to be achieved by 08/12/24. . STG: Patient and/or caregiver will verbalize/demonstrate independence with home exercise program, to improve functional mobility, to be achieved by 08/05/24. LTG: Patient will demonstrate improved right knee active range of motion to 0-85 degrees, to meet functional goals, to be achieved by 08/12/24. . PT Impaired muscle performance and/or ROM Completed Yes Improved Transfers Description: LTG: Patient will demonstrate safe transfers to/from bed, chair, toilet, couch, shower/tub and car independently with AD, to be achieved by 08/12/24. . PT Impaired mobility Completed Yes Improved Bed Mobility Description: LTG: Patient will demonstrate improved bed mobility, ability to position self and supine <> sit independently to be achieved by 08/12/24. PT Impaired mobility Completed Yes Improved Stair Climbing Description: STG:: Patient will demonstrate improved stair negotiation as evidenced by ascend/descend 2 steps with walker independently, to be achieved by 08/05/24. PT Impaired gait Completed Yes Improved Gait Description: LTG: Patient will demonstrate improved gait ability as evidenced by ambulation 150 feet with front wheeled walker independently with AD, to return to safe household and community ambulation, in order to transition to OP PT, to be achieved by 08/12/24. . PT Impaired gait Completed Yes Improved Balance Description: LTG: Patient will demonstrate improved standing balance to meet functional goals as evidenced by TUG score of <40 to be achieved by 08/12/24. PT Impaired balance Completed Yes Manage Orthopedic Condition Description: Improve patient and/or caregiver understanding of post surgical and/or non-surgical orthopedic intervention management as evidenced by patient and/or caregiver able to verbalize, demonstrate, and teach back instruction, to be achieved by 08/12/24. . PT Orthopedic Condition Completed Yes Demonstrate understanding of education Description: Patient and/or caregiver will understand educational instruction to be achieved by 08/12/24. . PT Learning Assessment Completed Yes Interventions Intervention Associated Problem/Goal Status Variance Visit Notes SPO2 Description: Notify Dr. Dhillon if pulse ox is <92% at rest. Problem:Physician Specific Parameters Goal:Patient to maintain parameters within physician-specified ranges throughout certification period Completed Instruct on individual fall risk factors and strategies to prevent falls and injuries caused by falls. Problem:Risk for Falls Goal:Manage Risk for falls Completed PT: Patient instructed on Eliminating Environmental Hazards: Keep pathways clear, Keep pets out of pathways, Remove unsafe rugs, Move furniture from pathways, Keep rooms and walkways well lit, Install hand rails/grab bars, Wear supportive shoes or non-skid socks and Keep frequently used items within reach Managing Impaired Functional Mobility: Use assistive device(s): front wheeled walker Managing Pain Instruct on pain and instruct on strategies to control pain Problem:Pain Goal:Manage Pain Completed patient instructed on techniques to control pain including Pharmacological measures and Non-Pharmacological measures; rest, positioning/elevation and use of thermal modalities, apply ice to affected area. Physical Therapy Therapeutic Exercises Problem:PT Impaired muscle performance and/or ROM Goal:Improved Muscle Performance and/or ROM Completed patient instructed on strengthening and range of motion exercises including standing heel toe raises, RLE hip abd,flexion, extension and hams curls x's 10each. step flexion stretch and seated heel slides x's 5-10 each with verbal and visual cues for form. patient instructed to perform home exercise program twice a day which included above ex. Physical Therapy Transfer Training Problem:PT Impaired mobility Goal:Improved Transfers Completed ARELIS transfers with safe/proper technqiue Physical Therapy Bed Mobility Training Problem:PT Impaired mobility Goal:Improved Bed Mobility Completed ARELIS bed mobility Physical Therapy Stair Training Problem:PT Impaired gait Goal:Improved Stair Climbing Completed up and down 2 platform steps with walker Physical Therapy Gait Training Problem:PT Impaired gait Goal:Improved Gait Completed Indep amb with walker or no device with steady recip pattern . x 150 Physical Therapy Balance Training Problem:PT Impaired balance Goal:Improved Balance Completed pt demonstrates improved dynamic standing balance as evidenced by a tug of 22 Instruct on orthopedic precautions and weight bearing restrictions Description: Orthopedic precautions including right total knee: no crossing legs, no knee flexed over pillow at rest, no kneeling, no squatting and no twisting. Weight bearing restrictions include: WBAT of involved extremity. Problem:PT Orthopedic Condition Goal:Manage Orthopedic Condition Completed patient instructed on orthopedic precautions and weight bearing restrictions. Instruct on management of edema Problem:PT Orthopedic Condition Goal:Manage Orthopedic Condition Completed Instruct patient on management of edema including elevation of RLE above the level of the heart and ice. Instruct on self-management of post surgical and/or non-surgical orthopedic intervention Problem:PT Orthopedic Condition Goal:Manage Orthopedic Condition Completed patient instructed on managagement of orthopedic condition, staying well hydrated, eating foods with high protein, signs and symptoms of infection, signs and symptoms of DVT/PE, follow provider guidance for showering and instructed on when to call provider. Instruct and educate on knowledge deficits Problem:PT Learning Assessment Goal:Demonstrate understanding of education Completed patient verbalize and/or demonstrate understanding of physical therapy education including orthopedic condition management, weight bearing precautions, surgical precautions, pain management, fall prevention strategies, home safety, functional activity and home exercise program. Education methods include: verbal cues and written instructions. documented in this encounter [facility] for referral (narrative)* Diagnostic Procedure Only (Routine) - Closed Specialty Diagnoses / Procedures Referred By Contac t Referred To Contact XR IMAGING Diagnoses Pain in left foot Procedures XR FOOT GENERAL 3V AP/LAT/OBL LEFT RADEX FOOT COMPLETE MINIMUM 3 VIEWS Maciej Brown [address] [place] [address] Xr Imaging Referral ID Status Reason Start Date Expiration Date V isits Requested Visits Authorized [id number] Closed Auto-Generate d Referral 04/09/2022 05/09/2023 1 1 T [facility] for referral (narrative)* Diagnostic Procedure Only (Routine) - Closed Specialty Diagnoses / Procedures Referred By Contac t Referred To Contact XR IMAGING Diagnoses Pain in left foot Procedures XR FOOT GENERAL 3V AP/LAT/OBL LEFT RADEX FOOT COMPLETE MINIMUM 3 VIEWS Maciej Brown [address] [place] [address] Xr Imaging Referral ID Status Reason Start Date Expiration Date V isits Requested Visits Authorized [id number] Closed Auto-Generate d Referral 04/09/2022 05/09/2023 1 1 T [facility] for referral (narrative)* Diagnostic Procedure Only (Routine) - Closed Specialty Diagnoses / Procedures Referred By Contac t Referred To Contact BR IMAGING Diagnoses Encounter for screening mammogram for malignant neoplasm of breast Procedures KALLI SCREENING SCREENING MAMMOGRAPHY BI 2-VIEW BREAST INC Suzi Ricardo MD [address] [place] [address] [facility] [address] [place] [address] Referral ID Status Reason Start Date Expiration Date V isits Requested Visits Authorized [id number] Closed Auto-Generate d Referral 07/10/2022 08/08/2023 1 1 [facility] for referral (narrative)* Diagnostic Procedure Only (Routine) - Closed Specialty Diagnoses / Procedures Referred By Contac t Referred To Contact XR IMAGING Diagnoses Foreign body (FB) in soft tissue Acquired hallux valgus of left foot Procedures XR FOOT GENERAL 3V AP/LAT/OBL LEFT RADEX FOOT COMPLETE MINIMUM 3 VIEWS Maciej Brown [address] [place] [address] Xr Imaging Referral ID Status Reason Start Date Expiration Date V isits Requested Visits Authorized [id number] Closed Auto-Generate d Referral 09/18/2022 10/18/2023 1 1 [facility] for referral (narrative)* Diagnostic Procedure Only (Routine) - Closed Specialty Diagnoses / Procedures Referred By Contac t Referred To Contact XR IMAGING Diagnoses Foreign body (FB) in soft tissue Acquired hallux valgus of left foot Procedures XR FOOT GENERAL 3V AP/LAT/OBL LEFT RADEX FOOT COMPLETE MINIMUM 3 VIEWS Maciej Brown [address] [place] [address] [place] [address] Referral ID Status Reason Start Date Expiration Date V isits Requested Visits Authorized [id number] Closed Auto-Generate d Referral 09/18/2022 10/18/2023 1 1 [facility] for referral (narrative)* Diagnostic Procedure Only (Routine) - Closed Specialty Diagnoses / Procedures Referred By Contac t Referred To Contact BR IMAGING Diagnoses Encounter for screening mammogram for malignant neoplasm of breast Procedures KALLI SCREENING SCREENING MAMMOGRAPHY BI 2-VIEW BREAST INC CAD Suzi Dobson MD [address] [place] [address] [facility] [address] [place] [address] Referral ID Status Reason Start Date Expiration Date V isits Requested Visits Authorized [id number] Closed Auto-Generate d Referral 07/10/2022 08/08/2023 1 1 [facility] for referral (narrative)* Diagnostic Procedure Only (Routine) - Pending Review Specialty Diagnoses / Procedures Referred By Aurora t Referred To Contact BR IMAGING Diagnoses Visit for screening mammogram Procedures KALLI SCREENING SCREENING MAMMOGRAPHY BI 2-VIEW BREAST INC CAD Scot Blank MD [address] [place] [address] [facility] [address] [place] [address] Referral ID Status Reason Start Date Expiration Date Visits Requested Visits Authorized [id number] Pending Review Auto-Generat ed Referral 3 07/20/2024 1 1 [facility] for referral (narrative)* Diagnostic Procedure Only (Routine) - Authorized Specialty Diagnoses / Procedures [facility] Diagnoses Encounter for gynecological examination with abnormal finding Encounter for screening mammogram for malignant neoplasm of breast Procedures KALLI SCREENING SCREENING MAMMOGRAPHY BI 2-VIEW BREAST INC CAD Talya May APRN.CNP [address] [place] [address] [facility] [address] [place] [address] Referral ID Status Reason Start Date Expiration Date Visits Requested Visits Authorized [id number] Authorized Auto-Generat ed Referral 10/01/2023 10/30/2024 1 1 [facility] for referral (narrative)* Outpatient Procedure (Routine) - Closed Specialty Diagnoses / Procedures Referred By Nbaac t Referred To Contact [facility] Diagnoses Chronic obstructive pulmonary disease, unspecified COPD type (HCC) Procedures NITRIC OXIDE, EXHALED NITRIC OXIDE GAS DETERMINATION Lorenza Reza MD [address] [place] [address] [facility] [place] [address] [place] [address] Referral ID Status Reason Start Date Expiration Date V isits Requested Visits Authorized [id number] Closed Auto-Generate d Referral 02/15/2024 03/16/2025 1 1 * Outpatient Procedure (Routine) - Closed Specialty Diagnoses / Procedures Referred By Contac t Referred To Contact [facility] Diagnoses Chronic obstructive pulmonary disease, unspecified COPD type (HCC) Procedures SPIROMETRY WITH DILATOR IF OBSTRUCTED BRNCDILAT RSPSE SPMTRY PRE&POST-BRNCDILAT Lorenza Contreras MD [address] [place] [address] [address] Referral ID Status Reason Start Date Expiration Date V isits Requested Visits Authorized [id number] Closed Auto-Generate d Referral 02/15/2024 03/16/2025 1 1 [facility] for referral (narrative)* Diagnostic Procedure Only (Routine) - New Request Specialty Diagnoses / Procedures Referred By Contac t Referred To Contact XR IMAGING Diagnoses Right knee pain, unspecified chronicity Procedures XR LEG FRONTAL HIP TO ANKLE MECHANICAL AXIS BONE LENGTH STUDIES Garth Gonzalez PA-C [address] [address] [place] [address] Referral ID Status Reason Start Date Expiration Date Visits Requested Visits Authorized [id number] New Request Auto-Generat ed Referral 02/24/2024 03/24/2025 1 1 [facility] for referral (narrative)* Diagnostic Procedure Only (Routine) - Closed Specialty Diagnoses / Procedures Referred By Contac t Referred To Contact XR IMAGING Diagnoses Right knee pain, unspecified chronicity Procedures XR LEG FRONTAL HIP TO ANKLE MECHANICAL AXIS BONE LENGTH STUDIES Garth Gonzalez PA-C [address] [address] [place] [address] Referral ID Status Reason Start Date Expiration Date V isits Requested Visits Authorized [id number] Closed Auto-Generate d Referral 02/24/2024 03/24/2025 1 1 * Diagnostic Procedure Only (Routine) - Closed Specialty Diagnoses / Procedures Referred By Contac t Referred To Contact XR IMAGING Diagnoses Pain Procedures XR KNEE GENERAL 4V AP BOTH/PA BOTH/LAT/MERC RIGHT RADIOLOGIC EXAM KNEE COMPLETE 4/MORE VIEWS Garth Gonzalez PA-C [address] [address] [place] [address] Referral ID Status Reason Start Date Expiration Date V isits Requested Visits Authorized [id number] Closed Auto-Generate d Referral 02/14/2024 03/15/2025 1 1 [facility] for referral (narrative)* Outpatient Procedure (Routine) - Authorized Specialty Diagnoses / Procedures Referred By Contac t Referred To Contact [facility] Diagnoses Bilateral carotid artery stenosis Procedures US CAROTID ARTERIES TATYA[facility] DUPLEX SCAN EXTRACRANIAL ART COMPL BI STUDY Jaylin Combs PA-C [address] [place] [address] [facility] [place] [address] [place] [address] Referral ID Status Reason Start Date Expiration Date Visits Requested Visits Authorized [id number] Authorized Auto-Generat ed Referral 03/24/2024 03/24/2025 1 1 * Consult, Test, Treat (Routine) - Authorized Specialty Diagnoses / Procedures Referred By Contac t Referred To Contact Vascular Medicine 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 Procedures CONSULT TO VASCULAR MEDICINE OFFICE/OUTPATIENT [facility] 60 MINUTES Jaylin Combs PA-C [address] [place] [address] Referral ID Status Reason Start Date Expiration Date Visits Requested Visits Authorized [id number] Authorized PCP Requested Referral 03/24/2024 03/24/2025 1 1 [facility] for referral (narrative)* Diagnostic Procedure Only (Routine) - Authorized Specialty Diagnoses / Procedures [facility] Diagnoses Abnormal electrocardiogram Procedures NM CARDIAC PERF STRESS/PHARM MYOCARDIAL SPECT MULTIPLE STUDIES Yari Rincon APRN.ECHOCARDIOGRAPHER [address] [id number] [facility] [address] [place] [address] Referral ID Status Reason Start Date Expiration Date Visits Requested Visits Authorized [id number] Authorized Auto-Generat ed Referral 07/30/2025 1 1 * Outpatient Procedure (Routine) - Closed Specialty Diagnoses / Procedures [facility] Diagnoses Pre-operative examination Abnormal electrocardiogram Procedures ECHO ECHO TTHRC R-T 2D W/WOM-MODE COMPL SPEC&COLR D Yari Rincon APRN.ECHOCARDIOGRAPHER [address] [place] [address] [facility] [place] [address] [place] [address] Referral ID Status Reason Start Date Expiration Date V isits Requested Visits Authorized [id number] Closed Auto-Generate d Referral 06/30/2024 06/30/2025 1 1 * Outpatient Procedure (Routine) - Closed Specialty Diagnoses / Procedures [facility] Diagnoses Pre-operative examination Procedures ECG COMPLETE ECG ROUTINE ECG W/LEAST 12 LDS W/I&R Yari Rincon APRN.ECHOCARDIOGRAPHER [address] [place] [address] [facility] [place] [address] [place] [address] Referral ID Status Reason Start Date Expiration Date V isits Requested Visits Authorized [id number] Closed Auto-Generate d Referral 06/30/2024 06/30/2025 1 1 [facility] for referral (narrative)* Diagnostic Procedure Only (Routine) - Closed Specialty Diagnoses / Procedures Referred By [facility] Referred To Contact [facility]AGING Diagnoses Abnormal electrocardiogram Procedures NM CARDIAC PERF STRESS/PHARM MYOCARDIAL SPECT MULTIPLE STUDIES Yari Rincon APRN.CNP [address] [place] [address] [facility] [address] [place] [address] Referral ID Status Reason Start Date Expiration Date V isits Requested Visits Authorized [id number] Closed Auto-Generate d Referral 06/30/2024 07/30/2025 1 1 [facility] for referral (narrative)* Diagnostic Procedure Only (Routine) - Authorized Specialty Diagnoses / Procedures Referred By [facility] Referred To Contact XR IMAGING Diagnoses S/P total knee arthroplasty, right Procedures XR KNEE POST OP 3V AP/LAT/MERCHANT RIGHT RADIOLOGIC EXAMINATION KNEE 3 VIEWS Rebekah Eduardo PA-C [address] [place] [address] Xr Imaging [facility] Referral ID Status Reason Start Date Expiration Date Visits Requested Visits Authorized [id number] Authorized Auto-Generat ed Referral 08/04/2024 09/03/2025 1 1 [facility] for referral (narrative)No reason for referral information [facility] Phone: Reason for visit Narrative* Diagnostic Procedure Only (Routine) - Closed Specialty Diagnoses / Procedures Referred By [facility] Referred To Contact XR IMAGING Diagnoses Pain in left foot Procedures XR FOOT GENERAL 3V AP/LAT/OBL LEFT RADEX FOOT COMPLETE MINIMUM 3 VIEWS Kevin Maciej [address] [place] [address] Xr Imaging Referral ID Status Reason Start Date Expiration Date V isits Requested Visits Authorized [id number] Closed Auto-Generate d Referral 04/09/2022 05/09/2023 1 1 [facility] for visit Narrative* Diagnostic Procedure Only (Routine) - Closed Specialty Diagnoses / Procedures Referred By Contac t Referred To Contact XR IMAGING Diagnoses Foreign body (FB) in soft tissue Acquired hallux valgus of left foot Procedures XR FOOT GENERAL 3V AP/LAT/OBL LEFT RADEX FOOT COMPLETE MINIMUM 3 VIEWS Kathleen Brownew [address] [place] [address] [place] [address] Referral ID Status Reason Start Date Expiration Date V isits Requested Visits Authorized [id number] Closed Auto-Generate d Referral 09/18/2022 10/18/2023 1 1 [facility] for visit Narrative* Diagnostic Procedure Only (Routine) - Closed Specialty Diagnoses / Procedures Referred By Contac t Referred To Contact BR IMAGING Diagnoses Encounter for screening mammogram for malignant neoplasm of breast Procedures KALLI SCREENING SCREENING MAMMOGRAPHY BI 2-VIEW BREAST INC Suzi Ricardo MD [address] [place] [address] [facility] [address] [place] [address] Referral ID Status Reason Start Date Expiration Date V isits Requested Visits Authorized [id number] Closed Auto-Generate d Referral 07/10/2022 08/08/2023 1 1 [facility] for visit Narrative* Diagnostic Procedure Only (Routine) - Closed Specialty Diagnoses / Procedures Referred By Contac t Referred To Contact XR IMAGING Diagnoses Pain Procedures XR KNEE GENERAL 4V AP BOTH/PA BOTH/LAT/MERC RIGHT RADIOLOGIC EXAM KNEE COMPLETE 4/MORE VIEWS Garth Gonzalez PA-C [address] [address] [place] [address] Referral ID Status Reason Start Date Expiration Date V isits Requested Visits Authorized [id number] Closed Auto-Generate d Referral 02/14/2024 03/15/2025 1 1 [facility] for visit Narrative* Diagnostic Procedure Only (Urgent) - Closed Specialty Diagnoses / Procedures Referred By Contac t Referred To Contact XR IMAGING Diagnoses Chronic pain of left ankle Procedures XR ANKLE GENERAL 3V AP/LAT/OBL LT X-RAY ANKLE MINIMUM 3 VIEWS Jermaine Boothe COLOR REPAIRER.ECHOCARDIOGRAPHER [address] [place] [address] [place] [address] Referral ID Status Reason Start Date Expiration Date V isits Requested Visits Authorized [id number] Closed Auto-Generate d Referral 04/11/2021 05/11/2022 1 1 [facility] for visit Narrative* Diagnostic Procedure Only (Routine) - Closed Specialty Diagnoses / Procedures Referred By Contac t Referred To Contact MOLECULAR & FUNCTIONAL IMAGING Diagnoses Abnormal electrocardiogram Procedures NM CARDIAC PERF STRESS/PHARM MYOCARDIAL SPECT MULTIPLE STUDIES Yari Rincon, COLOR REPAIRER.ECHOCARDIOGRAPHER [address] [place] [id number] [facility] [address] [place] [address] Referral ID Status Reason Start Date Expiration Date V isits Requested Visits Authorized [id number] Closed Auto-Generate d Referral 06/30/2024 07/30/2025 1 1 [facility] for visit Narrative* Diagnostic Procedure Only (Routine) - Closed Specialty Diagnoses / Procedures Referred By Contac t Referred To Contact XR IMAGING Diagnoses S/P total knee arthroplasty, right Procedures XR KNEE POST OP 3V AP/LAT/MERCHANT RIGHT RADIOLOGIC EXAMINATION KNEE 3 VIEWS Rebekah Eduardo PA-C [address] [place] [address] Xr Imaging [facility] Referral ID Status Reason Start Date Expiration Date V isits Requested Visits Authorized [id number] Closed Auto-Generate d Referral 08/04/2024 09/03/2025 1 1 [facility] for visit Narrative* Diagnostic Procedure Only (Routine) - Closed Specialty Diagnoses / Procedures Referred By Contac t Referred To Contact BR IMAGING Diagnoses Encounter for gynecological examination with abnormal finding Encounter for screening mammogram for malignant neoplasm of breast Procedures KALLI SCREENING SCREENING MAMMOGRAPHY BI 2-VIEW BREAST INC Talya Allred, KJ.ECHOCARDIOGRAPHER [address] [place] [address] Phone: tel: fax: [facility] [address] [place] [address] Referral ID Status Reason Start Date Expiration Date V isits Requested Visits Authorized [id number] Closed Auto-Generate d Referral 10/01/2023 10/30/2024 1 1 [facility] Procedure Only (Routine) - Closed Specialty Diagnoses / Procedures Referred By [facility] Referred To Contact XR IMAGING Diagnoses Chronic pain of left ankle Procedures XR ANKLE GENERAL 3V AP/LAT/OBL LEFT RADEX ANKLE COMPLETE MINIMUM 3 VIEWS Jaylin Combs PA-C [address] [place] [address] Phone: tel: fax: [place] [address] Referral ID Status Reason Start Date Expiration Date V isits Requested Visits Authorized [id number] Closed Auto-Generate d Referral 01/22/2025 02/21/2026 1 1 [facility] Summary Purpose Family History Relationship Condition Age at Onset Recorded Date/T esha Unknown Family History?No pertinent history Unkno wn October 16, 2020 5:32am Family History?No pertinent history Unkno wn October 16, 2020 5:32am Advance Directives Documents on File Type Date Recorded 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 Advance Directive(s) 12/10/2020 11:34 AM Advance Directive(s) 11/29/2020 4:53 PM Advance Directive(s) 04/02/2020 10:47 AM Advance Directive(s) 03/27/2020 11:49 AM [facility] Advance Directive(s) 12/05/2019 7:17 PM Advance Directive(s) 06/23/2019 10:04 AM Advance Directive(s) 06/07/2019 10:33 AM Advance Directive(s) 03/17/2016 1:11 PM Advance Directive(s) 01/28/2016 11:37 AM Advance Directive Response Recorded Date/ Time Living Will Yes October 16, 2020 6:33am Power of Shoe Cobbler Yes October 16 6:33am Advance Directive Response Recorded Date/ Time Living Will Yes December 16, 2021 2 :44pm Power of Shoe Cobbler Yes December 16, 2021 2:44pm Documents on File Type Date Recorded 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 Advance Directive(s) 12/10/2020 11:34 AM Advance Directive(s) 11/29/2020 4:53 PM Advance Directive(s) 04/02/2020 10:47 AM Advance Directive(s) 03/27/2020 11:49 AM [facility] Advance Directive(s) 12/05/2019 7:17 PM Advance Directive(s) 06/23/2019 10:04 AM Advance Directive(s) 06/07/2019 10:33 AM Advance Directive(s) 03/17/2016 1:11 PM Advance Directive(s) 01/28/2016 11:37 AM Documents on File Type Date Recorded 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 No February 12, 2025 3:47pm Chief Complaint and Reason for Visit Chief Complaint PAIN IN RIGHT LOWER LEG Chief Complaint PAIN IN RIGHT LOWER LEG rt knee arthroscopy with medial menisectomy Chief Complaint FOREIGN BODY BETWEEN METATARSALS Chief Complaint Admit Date BILATERAL LEG PAIN February 12, 2025 12: 46pm dvt February 12, 2025 2:4 1pm Reason for Referral Specialty Diagnoses / Procedures Referred By [facility] Referred To Contact General Surgery Diagnoses Gastroesophageal reflux disease with esophagitis without hemorrhage PUD (peptic ulcer disease) Procedures CONSULT TO GENERAL SURGERY OFFICE/OUTPATIENT [facility] 60-74 MINUTES Scot Blank MD [address] [place] [address] Referral ID Status Reason Start Date Expiration Date Visits Requested Visits Authorized [id number] Authorized PCP Requested Referral 02/12/2022 02/12/2023 1 1 Specialty Diagnoses / Procedures Referred By Cont[facility] t Referred To Contact [facility] Diagnoses Bilateral carotid artery stenosis Procedures US CAROTID ARTERIES TATYANA VAS LAB DUPLEX SCAN EXTRACRANIAL ART COMPL BI STUDY Scot Blank MD [address] [place] [address] [facility] [place] [address] [place] [address] Referral ID Status Reason Start Date Expiration Date Visits Requested Visits Authorized [id number] Authorized Auto-Generat ed Referral 02/12/2022 02/12/2023 1 1 Specialty Diagnoses / Procedures Referred By Contac t Referred To Contact MR IMAGING Diagnoses Primary osteoarthritis of right knee Procedures MRI KNEE WO IVCON RIGHT MRI ANY JT LOWER EXTREM W/O CONTRAST MATRL Rebekah Eduardo PA-C [address] [place] [address] Mr Imaging [facility] Referral ID Status Reason Start Date Expiration Date Visits Requested Visits Authorized [id number] Authorized Auto-Generat ed Referral 05/15/2024 06/14/2025 1 1 Specialty Diagnoses / Procedures Referred By Cont[facility] t Referred To Contact CT IMAGING Diagnoses Chronic pain of right knee Primary osteoarthritis of right knee Procedures CT KNEE WO IVCON RIGHT CT LOWER EXTREMITY W/O CONTRAST MATERIAL Bryson Dhillon MD [address] [place] [address] [place] [address] Referral ID Status Reason Start Date Expiration Date V isits Requested Visits Authorized [id number] Closed Auto-Generate d Referral 06/12/2024 07/12/2025 1 1 Specialty Diagnoses / Procedures Referred By Contac t Referred To Contact [facility] Diagnoses S/P total knee arthroplasty, right Procedures CONSULT TO PHYSICAL THERAPY PHYSICAL THERAPY EVALUATION HIGH COMPLEX 45 MINS Rebekah Eduardo PA-C [address] [place] [address] [facility] [place] [address] [place] [address] Referral ID Status Reason Start Date Expiration Date Visits Requested Visits Authorized [id number] Authorized PCP Requested Referral Auto-Generate d Referral 08/17/2024 08/17/2025 99 [phone] Additional Source Comments INFORMATION SOURCE (unrecogn ized section and content) DATE CREATED AUTHOR 01/04/2018 [facility] DATE CREATED AUTHOR AUTHOR'S ORGANIZ ATION [facility] DATE CREATED AUTHOR AUTHOR'S ORGANIZ ATION 12/26/2022 [facility] DATE CREATED AUTHOR AUTHOR'S ORGANIZ ATION 08/09/2024 [facility] DATE CREATED AUTHOR AUTHOR'S ORGANIZ ATION 02/06/2025 [facility] Source Comments (unrecognize d section and content) In the event this informatio n is protected by the Federal Confidentiality of Alcohol and Drug Abuse Patient Records regulations: The Federal rules restrict any use of the information to criminally investigate or prosecute any alcohol or drug abuse patient.[facility] the event this information is protected by the Federal Confidentiality of Alcohol and Drug Abuse Patient Records regulations: The Federal rules restrict any use of the information to criminally investigate or prosecute any alcohol or drug abuse patient.[facility] the event this information is protected by the Federal Confidentiality of Alcohol and Drug Abuse Patient Records regulations: The Federal rules restrict any use of the information to criminally investigate or prosecute any alcohol or drug abuse patient.[facility] the event this information is protected by the Federal Confidentiality of Alcohol and Drug Abuse Patient Records regulations: The Federal rules restrict any use of the information to criminally investigate or prosecute any alcohol or drug abuse patient.[facility] the event this information is protected by the Federal Confidentiality of Alcohol and Drug Abuse Patient Records regulations: The Federal rules restrict any use of the information to criminally investigate or prosecute any alcohol or drug abuse patient.[facility] the event this information is protected by the Federal Confidentiality of Alcohol and Drug Abuse Patient Records regulations: The Federal rules restrict any use of the information to criminally investigate or prosecute any alcohol or drug abuse patient.[facility] the event this information is protected by the Federal Confidentiality of Alcohol and Drug Abuse Patient Records regulations: The Federal rules restrict any use of the information to criminally investigate or prosecute any alcohol or drug abuse patient.[facility] the event this information is protected by the Federal Confidentiality of Alcohol and Drug Abuse Patient Records regulations: The Federal rules restrict any use of the information to criminally investigate or prosecute any alcohol or drug abuse patient.[facility] the event this information is protected by the Federal Confidentiality of Alcohol and Drug Abuse Patient Records regulations: The Federal rules restrict any use of the information to criminally investigate or prosecute any alcohol or drug abuse patient.[facility] the event this information is protected by the Federal Confidentiality of Alcohol and Drug Abuse Patient Records regulations: The Federal rules restrict any use of the information to criminally investigate or prosecute any alcohol or drug abuse patient.[facility] the event this information is protected by the Federal Confidentiality of Alcohol and Drug Abuse Patient Records regulations: The Federal rules restrict any use of the information to criminally investigate or prosecute any alcohol or drug abuse patient.[facility]In the event this information is protected by the Federal Confidentiality of Alcohol and Drug Abuse Patient Records regulations: The Federal rules restrict any use of the information to criminally investigate or prosecute any alcohol or drug abuse patient.[facility] the event this information is protected by the Federal Confidentiality of Alcohol and Drug Abuse Patient Records regulations: The Federal rules restrict any use of the information to criminally investigate or prosecute any alcohol or drug abuse patient.[facility] HospitalIn the event this information is protected by the Federal Confidentiality of Alcohol and Drug Abuse Patient Records regulations: The Federal rules restrict any use of the information to criminally investigate or prosecute any alcohol or drug abuse patient.[facility] HospitalIn the event this information is protected by the Federal Confidentiality of Alcohol and Drug Abuse Patient Records regulations: The Federal rules restrict any use of the information to criminally investigate or prosecute any alcohol or drug abuse patient.[facility] HospitalIn the event this information is protected by the Federal Confidentiality of Alcohol and Drug Abuse Patient Records regulations: The Federal rules restrict any use of the information to criminally investigate or prosecute any alcohol or drug abuse patient.[facility] HospitalIn the event this information is protected by the Federal Confidentiality of Alcohol and Drug Abuse Patient Records regulations: The Federal rules restrict any use of the information to criminally investigate or prosecute any alcohol or drug abuse patient.[facility] HospitalIn the event this information is protected by the Federal Confidentiality of Alcohol and Drug Abuse Patient Records regulations: The Federal rules restrict any use of the information to criminally investigate or prosecute any alcohol or drug abuse patient.[facility]In the event this information is protected by the Federal Confidentiality of Alcohol and Drug Abuse Patient Records regulations: The Federal rules restrict any use of the information to criminally investigate or prosecute any alcohol or drug abuse patient.[facility] HospitalIn the event this information is protected by the Federal Confidentiality of Alcohol and Drug Abuse Patient Records regulations: The Federal rules restrict any use of the information to criminally investigate or prosecute any alcohol or drug abuse patient.[facility] HospitalIn the event this information is protected by the Federal Confidentiality of Alcohol and Drug Abuse Patient Records regulations: The Federal rules restrict any use of the information to criminally investigate or prosecute any alcohol or drug abuse patient.[facility] HospitalIn the event this information is protected by the Federal Confidentiality of Alcohol and Drug Abuse Patient Records regulations: The Federal rules restrict any use of the information to criminally investigate or prosecute any alcohol or drug abuse patient.[facility] HospitalIn the event this information is protected by the Federal Confidentiality of Alcohol and Drug Abuse Patient Records regulations: The Federal rules restrict any use of the information to criminally investigate or prosecute any alcohol or drug abuse patient.[facility] HospitalIn the event this information is protected by the Federal Confidentiality of Alcohol and Drug Abuse Patient Records regulations: The Federal rules restrict any use of the information to criminally investigate or prosecute any alcohol or drug abuse patient.[facility] HospitalIn the event this information is protected by the Federal Confidentiality of Alcohol and Drug Abuse Patient Records regulations: The Federal rules restrict any use of the information to criminally investigate or prosecute any alcohol or drug abuse patient.[facility] HospitalIn the event this information is protected by the Federal Confidentiality of Alcohol and Drug Abuse Patient Records regulations: The Federal rules restrict any use of the information to criminally investigate or prosecute any alcohol or drug abuse patient.[facility] HospitalIn the event this information is protected by the Federal Confidentiality of Alcohol and Drug Abuse Patient Records regulations: The Federal rules restrict any use of the information to criminally investigate or prosecute any alcohol or drug abuse patient.[facility] HospitalIn the event this information is protected by the Federal Confidentiality of Alcohol and Drug Abuse Patient Records regulations: The Federal rules restrict any use of the information to criminally investigate or prosecute any alcohol or drug abuse patient.[facility] HospitalIn the event this information is protected by the Federal Confidentiality of Alcohol and Drug Abuse Patient Records regulations: The Federal rules restrict any use of the information to criminally investigate or prosecute any alcohol or drug abuse patient.[facility] HospitalIn the event this information is protected by the Federal Confidentiality of Alcohol and Drug Abuse Patient Records regulations: The Federal rules restrict any use of the information to criminally investigate or prosecute any alcohol or drug abuse patient.[facility] HospitalIn the event this information is protected by the Federal Confidentiality of Alcohol and Drug Abuse Patient Records regulations: The Federal rules restrict any use of the information to criminally investigate or prosecute any alcohol or drug abuse patient.[facility] HospitalIn the event this information is protected by the Federal Confidentiality of Alcohol and Drug Abuse Patient Records regulations: The Federal rules restrict any use of the information to criminally investigate or prosecute any alcohol or drug abuse patient.[facility] HospitalIn the event this information is protected by the Federal Confidentiality of Alcohol and Drug Abuse Patient Records regulations: The Federal rules restrict any use of the information to criminally investigate or prosecute any alcohol or drug abuse patient.[facility] HospitalIn the event this information is protected by the Federal Confidentiality of Alcohol and Drug Abuse Patient Records regulations: The Federal rules restrict any use of the information to criminally investigate or prosecute any alcohol or drug abuse patient.[facility] HospitalIn the event this information is protected by the Federal Confidentiality of Alcohol and Drug Abuse Patient Records regulations: The Federal rules restrict any use of the information to criminally investigate or prosecute any alcohol or drug abuse patient.[facility] HospitalIn the event this information is protected by the Federal Confidentiality of Alcohol and Drug Abuse Patient Records regulations: The Federal rules restrict any use of the information to criminally investigate or prosecute any alcohol or drug abuse patient.[facility] HospitalIn the event this information is protected by the Federal Confidentiality of Alcohol and Drug Abuse Patient Records regulations: The Federal rules restrict any use of the information to criminally investigate or prosecute any alcohol or drug abuse patient.[facility] HospitalIn the event this information is protected by the Federal Confidentiality of Alcohol and Drug Abuse Patient Records regulations: The Federal rules restrict any use of the information to criminally investigate or prosecute any alcohol or drug abuse patient.[facility] HospitalIn the event this information is protected by the Federal Confidentiality of Alcohol and Drug Abuse Patient Records regulations: The Federal rules restrict any use of the information to criminally investigate or prosecute any alcohol or drug abuse patient.[facility] HospitalIn the event this information is protected by the Federal Confidentiality of Alcohol and Drug Abuse Patient Records regulations: The Federal rules restrict any use of the information to criminally investigate or prosecute any alcohol or drug abuse patient.[facility] HospitalIn the event this information is protected by the Federal Confidentiality of Alcohol and Drug Abuse Patient Records regulations: The Federal rules restrict any use of the information to criminally investigate or prosecute any alcohol or drug abuse patient.[facility] HospitalIn the event this information is protected by the Federal Confidentiality of Alcohol and Drug Abuse Patient Records regulations: The Federal rules restrict any use of the information to criminally investigate or prosecute any alcohol or drug abuse patient.[facility] HospitalIn the event this information is protected by the Federal Confidentiality of Alcohol and Drug Abuse Patient Records regulations: The Federal rules restrict any use of the information to criminally investigate or prosecute any alcohol or drug abuse patient.[facility] HospitalIn the event this information is protected by the Federal Confidentiality of Alcohol and Drug Abuse Patient Records regulations: The Federal rules restrict any use of the information to criminally investigate or prosecute any alcohol or drug abuse patient.[facility] HospitalIn the event this information is protected by the Federal Confidentiality of Alcohol and Drug Abuse Patient Records regulations: The Federal rules restrict any use of the information to criminally investigate or prosecute any alcohol or drug abuse patient.[facility] HospitalIn the event this information is protected by the Federal Confidentiality of Alcohol and Drug Abuse Patient Records regulations: The Federal rules restrict any use of the information to criminally investigate or prosecute any alcohol or drug abuse patient.[facility] the event this information is protected by the Federal Confidentiality of Alcohol and Drug Abuse Patient Records regulations: The Federal rules restrict any use of the information to criminally investigate or prosecute any alcohol or drug abuse patient.[facility] HospitalIn the event this information is protected by the Federal Confidentiality of Alcohol and Drug Abuse Patient Records regulations: The Federal rules restrict any use of the information to criminally investigate or prosecute any alcohol or drug abuse patient.[facility] HospitalIn the event this information is protected by the Federal Confidentiality of Alcohol and Drug Abuse Patient Records regulations: The Federal rules restrict any use of the information to criminally investigate or prosecute any alcohol or drug abuse patient.[facility] ClinicIn the event this information is protected by the Federal Confidentiality of Alcohol and Drug Abuse Patient Records regulations: The Federal rules restrict any use of the information to criminally investigate or prosecute any alcohol or drug abuse patient.[facility] HospitalIn the event this information is protected by the Federal Confidentiality of Alcohol and Drug Abuse Patient Records regulations: The Federal rules restrict any use of the information to criminally investigate or prosecute any alcohol or drug abuse patient.[facility] HospitalIn the event this information is protected by the Federal Confidentiality of Alcohol and Drug Abuse Patient Records regulations: The Federal rules restrict any use of the information to criminally investigate or prosecute any alcohol or drug abuse patient.[facility] HospitalIn the event this information is protected by the Federal Confidentiality of Alcohol and Drug Abuse Patient Records regulations: The Federal rules restrict any use of the information to criminally investigate or prosecute any alcohol or drug abuse patient.[facility] HospitalIn the event this information is protected by the Federal Confidentiality of Alcohol and Drug Abuse Patient Records regulations: The Federal rules restrict any use of the information to criminally investigate or prosecute any alcohol or drug abuse patient.[facility] HospitalIn the event this information is protected by the Federal Confidentiality of Alcohol and Drug Abuse Patient Records regulations: The Federal rules restrict any use of the information to criminally investigate or prosecute any alcohol or drug abuse patient.[facility] HospitalIn the event this information is protected by the Federal Confidentiality of Alcohol and Drug Abuse Patient Records regulations: The Federal rules restrict any use of the information to criminally investigate or prosecute any alcohol or drug abuse patient.[facility] HospitalIn the event this information is protected by the Federal Confidentiality of Alcohol and Drug Abuse Patient Records regulations: The Federal rules restrict any use of the information to criminally investigate or prosecute any alcohol or drug abuse patient.[facility] HospitalIn the event this information is protected by the Federal Confidentiality of Alcohol and Drug Abuse Patient Records regulations: The Federal rules restrict any use of the information to criminally investigate or prosecute any alcohol or drug abuse patient.[facility] HospitalIn the event this information is protected by the Federal Confidentiality of Alcohol and Drug Abuse Patient Records regulations: The Federal rules restrict any use of the information to criminally investigate or prosecute any alcohol or drug abuse patient.[facility] HospitalIn the event this information is protected by the Federal Confidentiality of Alcohol and Drug Abuse Patient Records regulations: The Federal rules restrict any use of the information to criminally investigate or prosecute any alcohol or drug abuse patient.[facility] HospitalIn the event this information is protected by the Federal Confidentiality of Alcohol and Drug Abuse Patient Records regulations: The Federal rules restrict any use of the information to criminally investigate or prosecute any alcohol or drug abuse patient.[facility] HospitalIn the event this information is protected by the Federal Confidentiality of Alcohol and Drug Abuse Patient Records regulations: The Federal rules restrict any use of the information to criminally investigate or prosecute any alcohol or drug abuse patient.[facility] HospitalIn the event this information is protected by the Federal Confidentiality of Alcohol and Drug Abuse Patient Records regulations: The Federal rules restrict any use of the information to criminally investigate or prosecute any alcohol or drug abuse patient.[facility] HospitalIn the event this information is protected by the Federal Confidentiality of Alcohol and Drug Abuse Patient Records regulations: The Federal rules restrict any use of the information to criminally investigate or prosecute any alcohol or drug abuse patient.[facility] HospitalIn the event this information is protected by the Federal Confidentiality of Alcohol and Drug Abuse Patient Records regulations: The Federal rules restrict any use of the information to criminally investigate or prosecute any alcohol or drug abuse patient.[facility] HospitalIn the event this information is protected by the Federal Confidentiality of Alcohol and Drug Abuse Patient Records regulations: The Federal rules restrict any use of the information to criminally investigate or prosecute any alcohol or drug abuse patient.[facility] HospitalIn the event this information is protected by the Federal Confidentiality of Alcohol and Drug Abuse Patient Records regulations: The Federal rules restrict any use of the information to criminally investigate or prosecute any alcohol or drug abuse patient.[facility] HospitalIn the event this information is protected by the Federal Confidentiality of Alcohol and Drug Abuse Patient Records regulations: The Federal rules restrict any use of the information to criminally investigate or prosecute any alcohol or drug abuse patient.[facility] HospitalIn the event this information is protected by the Federal Confidentiality of Alcohol and Drug Abuse Patient Records regulations: The Federal rules restrict any use of the information to criminally investigate or prosecute any alcohol or drug abuse patient.[facility] HospitalIn the event this information is protected by the Federal Confidentiality of Alcohol and Drug Abuse Patient Records regulations: The Federal rules restrict any use of the information to criminally investigate or prosecute any alcohol or drug abuse patient.[facility] HospitalIn the event this information is protected by the Federal Confidentiality of Alcohol and Drug Abuse Patient Records regulations: The Federal rules restrict any use of the information to criminally investigate or prosecute any alcohol or drug abuse patient.[facility] HospitalIn the event this information is protected by the Federal Confidentiality of Alcohol and Drug Abuse Patient Records regulations: The Federal rules restrict any use of the information to criminally investigate or prosecute any alcohol or drug abuse patient.[facility] HospitalIn the event this information is protected by the Federal Confidentiality of Alcohol and Drug Abuse Patient Records regulations: The Federal rules restrict any use of the information to criminally investigate or prosecute any alcohol or drug abuse patient.[facility] HospitalIn the event this information is protected by the Federal Confidentiality of Alcohol and Drug Abuse Patient Records regulations: The Federal rules restrict any use of the information to criminally investigate or prosecute any alcohol or drug abuse patient.[facility] HospitalIn the event this information is protected by the Federal Confidentiality of Alcohol and Drug Abuse Patient Records regulations: The Federal rules restrict any use of the information to criminally investigate or prosecute any alcohol or drug abuse patient.[facility] HospitalIn the event this information is protected by the Federal Confidentiality of Alcohol and Drug Abuse Patient Records regulations: The Federal rules restrict any use of the information to criminally investigate or prosecute any alcohol or drug abuse patient.[facility] HospitalIn the event this information is protected by the Federal Confidentiality of Alcohol and Drug Abuse Patient Records regulations: The Federal rules restrict any use of the information to criminally investigate or prosecute any alcohol or drug abuse patient.[facility] HospitalIn the event this information is protected by the Federal Confidentiality of Alcohol and Drug Abuse Patient Records regulations: The Federal rules restrict any use of the information to criminally investigate or prosecute any alcohol or drug abuse patient.[facility] HospitalIn the event this information is protected by the Federal Confidentiality of Alcohol and Drug Abuse Patient Records regulations: The Federal rules restrict any use of the information to criminally investigate or prosecute any alcohol or drug abuse patient.[facility] HospitalIn the event this information is protected by the Federal Confidentiality of Alcohol and Drug Abuse Patient Records regulations: The Federal rules restrict any use of the information to criminally investigate or prosecute any alcohol or drug abuse patient.[facility] HospitalIn the event this information is protected by the Federal Confidentiality of Alcohol and Drug Abuse Patient Records regulations: The Federal rules restrict any use of the information to criminally investigate or prosecute any alcohol or drug abuse patient.[facility] HospitalIn the event this information is protected by the Federal Confidentiality of Alcohol and Drug Abuse Patient Records regulations: The Federal rules restrict any use of the information to criminally investigate or prosecute any alcohol or drug abuse patient.[facility] HospitalIn the event this information is protected by the Federal Confidentiality of Alcohol and Drug Abuse Patient Records regulations: The Federal rules restrict any use of the information to criminally investigate or prosecute any alcohol or drug abuse patient.[facility] HospitalIn the event this information is protected by the Federal Confidentiality of Alcohol and Drug Abuse Patient Records regulations: The Federal rules restrict any use of the information to criminally investigate or prosecute any alcohol or drug abuse patient.[facility] HospitalIn the event this information is protected by the Federal Confidentiality of Alcohol and Drug Abuse Patient Records regulations: The Federal rules restrict any use of the information to criminally investigate or prosecute any alcohol or drug abuse patient.[facility] HospitalIn the event this information is protected by the Federal Confidentiality of Alcohol and Drug Abuse Patient Records regulations: The Federal rules restrict any use of the information to criminally investigate or prosecute any alcohol or drug abuse patient.[facility] HospitalIn the event this information is protected by the Federal Confidentiality of Alcohol and Drug Abuse Patient Records regulations: The Federal rules restrict any use of the information to criminally investigate or prosecute any alcohol or drug abuse patient.[facility] HospitalIn the event this information is protected by the Federal Confidentiality of Alcohol and Drug Abuse Patient Records regulations: The Federal rules restrict any use of the information to criminally investigate or prosecute any alcohol or drug abuse patient.[facility] HospitalIn the event this information is protected by the Federal Confidentiality of Alcohol and Drug Abuse Patient Records regulations: The Federal rules restrict any use of the information to criminally investigate or prosecute any alcohol or drug abuse patient.[facility] HospitalIn the event this information is protected by the Federal Confidentiality of Alcohol and Drug Abuse Patient Records regulations: The Federal rules restrict any use of the information to criminally investigate or prosecute any alcohol or drug abuse patient.[facility] HospitalIn the event this information is protected by the Federal Confidentiality of Alcohol and Drug Abuse Patient Records regulations: The Federal rules restrict any use of the information to criminally investigate or prosecute any alcohol or drug abuse patient.[facility] HospitalIn the event this information is protected by the Federal Confidentiality of Alcohol and Drug Abuse Patient Records regulations: The Federal rules restrict any use of the information to criminally investigate or prosecute any alcohol or drug abuse patient.[facility] HospitalIn the event this information is protected by the Federal Confidentiality of Alcohol and Drug Abuse Patient Records regulations: The Federal rules restrict any use of the information to criminally investigate or prosecute any alcohol or drug abuse patient.[facility] HospitalIn the event this information is protected by the Federal Confidentiality of Alcohol and Drug Abuse Patient Records regulations: The Federal rules restrict any use of the information to criminally investigate or prosecute any alcohol or drug abuse patient.[facility] HospitalIn the event this information is protected by the Federal Confidentiality of Alcohol and Drug Abuse Patient Records regulations: The Federal rules restrict any use of the information to criminally investigate or prosecute any alcohol or drug abuse patient.[facility] HospitalIn the event this information is protected by the Federal Confidentiality of Alcohol and Drug Abuse Patient Records regulations: The Federal rules restrict any use of the information to criminally investigate or prosecute any alcohol or drug abuse patient.[facility] the event this information is protected by the Federal Confidentiality of Alcohol and Drug Abuse Patient Records regulations: The Federal rules restrict any use of the information to criminally investigate or prosecute any alcohol or drug abuse patient.[facility] HospitalIn the event this information is protected by the Federal Confidentiality of Alcohol and Drug Abuse Patient Records regulations: The Federal rules restrict any use of the information to criminally investigate or prosecute any alcohol or drug abuse patient.[facility] HospitalIn the event this information is protected by the Federal Confidentiality of Alcohol and Drug Abuse Patient Records regulations: The Federal rules restrict any use of the information to criminally investigate or prosecute any alcohol or drug abuse patient.[facility]In the event this information is protected by the Federal Confidentiality of Alcohol and Drug Abuse Patient Records regulations: The Federal rules restrict any use of the information to criminally investigate or prosecute any alcohol or drug abuse patient.[facility] HospitalIn the event this information is protected by the Federal Confidentiality of Alcohol and Drug Abuse Patient Records regulations: The Federal rules restrict any use of the information to criminally investigate or prosecute any alcohol or drug abuse patient.[facility] HospitalIn the event this information is protected by the Federal Confidentiality of Alcohol and Drug Abuse Patient Records regulations: The Federal rules restrict any use of the information to criminally investigate or prosecute any alcohol or drug abuse patient.[facility] HospitalIn the event this information is protected by the Federal Confidentiality of Alcohol and Drug Abuse Patient Records regulations: The Federal rules restrict any use of the information to criminally investigate or prosecute any alcohol or drug abuse patient.[facility] HospitalIn the event this information is protected by the Federal Confidentiality of Alcohol and Drug Abuse Patient Records regulations: The Federal rules restrict any use of the information to criminally investigate or prosecute any alcohol or drug abuse patient.[facility] HospitalIn the event this information is protected by the Federal Confidentiality of Alcohol and Drug Abuse Patient Records regulations: The Federal rules restrict any use of the information to criminally investigate or prosecute any alcohol or drug abuse patient.[facility] Reason for Visit (unrecogniz ed section and content) Reason Comments PT Discharge Specialty Diagnoses / Procedures Referred By Contac t Referred To Contact Physical Therapy / PHYSICAL THERAPY Diagnoses RT TKR [facility] DC 08/10 Procedures NEW RS PT TOTAL JOINT Bryson Dhillon MD [address] [place] [address] Phone: tel: fax: Xander Wu [facility] [address] [place] [address] Phone: tel: Referral ID Status Reason Start Date Expiration Date V isits Requested Visits Authorized [id number] Authorized 07/12/2024 07/11/2025 99 99 Reason Comments Physical Therapy Reason Comments PT Eval Reason Comments Recheck pneumonia Reason Comments Medicare Wellness Exam Reason Comments Results Reason Comments Patient Update Reason Comments Rx issue Reason Comments New Patient Pain Reason Onset Date Comments Refill Request 04/27/2022 Reason Comments Follow Up 6 month follow up Reason Comments Established Patient Follow Up Pain Swelling Numbness Reason Onset Date Comments Refill Request 10/02/2022 Reason Onset Date Comments Refill Request 10/08/2022 Reason Comments Cough Reason Comments Patient Request Reason Comments Medicare Wellness Exam Reason Comments Insurance Authorization Pantoprazole Reason Comments Discussion Bone density results Alos cough x 1 month Reason Comments Follow Up 6 Month Exam Reason Comments Chest Congestion Reason Comments Yearly Exam Reason Comments Cough Drainage, fatigue & occasional headache X 1.5 wks Reason Onset Date Comments Cough 11/08/2023 Drainage Reason Comments Cough X 4 days, tired Reason Comments Refill Request Patient requesting t his RX until she sees Pulmonology on 02/15/2024 please Reason Comments Acute Visit Skin tag on R side o f neck; becoming red, irritated Reason Comments Spirometry Specialty Diagnoses / Procedures Referred By Contac t Referred To Contact [facility] Diagnoses Chronic obstructive pulmonary disease, unspecified COPD type (HCC) Procedures NITRIC OXIDE, EXHALED NITRIC OXIDE GAS DETERMINATION Lorenza Reza MD [address] [place] [address] [facility] [place] [address] Referral ID Status Reason Start Date Expiration Date V isits Requested Visits Authorized [id number] Closed Auto-Generate d Referral 02/15/2024 03/16/2025 1 1 Specialty Diagnoses / Procedures Referred By Contac t Referred To Contact [facility] Diagnoses Chronic obstructive pulmonary disease, unspecified COPD type (HCC) Procedures SPIROMETRY WITH DILATOR IF OBSTRUCTED BRNCDILAT RSPSE SPMTRY PRE&POST-BRNCDILAT ADMN Lorenza Reza MD [address] [place] [address] [facility] [address] [address] Referral ID Status Reason Start Date Expiration Date V isits Requested Visits Authorized [id number] Closed Auto-Generate d Referral 02/15/2024 03/16/2025 1 1 Reason Comments Consult Reason Comments Established Patient Follow Up Knee Pain Reason Comments New Patient Specialty Diagnoses / Procedures Referred By Contac t Referred To Contact Vascular Medicine 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 Procedures CONSULT TO VASCULAR MEDICINE OFFICE/OUTPATIENT NEW HIGH MDM 60 MINUTES Jaylin Combs PA-C [address] [place] [address] Referral ID Status Reason Start Date Expiration Date V isits Requested Visits Authorized [id number] Closed PCP Requested Referral 03/24/2024 03/24/2025 1 1 Reason Onset Date Comments Refill Request 04/26/2024 Reason Comments Established Patient Follow Up Specialty Diagnoses / Procedures Referred By Contac t Referred To Contact [facility] Diagnoses Primary osteoarthritis of right knee Procedures MRI KNEE WO IVCON RIGHT MRI ANY JT LOWER EXTREM W/O CONTRAST TERRYL Rebekah Eduardo PA-C [address] [place] [address] [place] [address] Referral ID Status Reason Start Date Expiration Date V isits Requested Visits Authorized [id number] Closed Auto-Generate d Referral 05/15/2024 06/14/2025 1 1 Reason Comments Results - Mri Reason Comments request new handicap placard Reason Comments Refill Request Reason Comments Schedule Surgery Reason Comments Pre-Op Teaching Specialty Diagnoses / Procedures Referred By Contac t Referred To Contact CT IMAGING Diagnoses Chronic pain of right knee Primary osteoarthritis of right knee Procedures CT KNEE WO IVCON RIGHT CT LOWER EXTREMITY W/O CONTRAST MATERIAL Bryson Dhillon MD [address] [place] [address] [place] [address] Referral ID Status Reason Start Date Expiration Date V isits Requested Visits Authorized [id number] Closed Auto-Generate d Referral 06/12/2024 07/12/2025 1 1 Reason Comments Surgical Clearance Scheduled for Rt leny otic-assisted TKA on 07/26/2024 Specialty Diagnoses / Procedures Referred By Contac t Referred [facility] Contact [facility] Diagnoses Pre-operative examination Procedures ECG COMPLETE ECG ROUTINE ECG W/LEAST 12 LDS W/I&R Yari Rincon, COLOR REPAIRER.ECHOCARDIOGRAPHER [address] [place] [address] [facility] [place] [address] [place] [address] Referral ID Status Reason Start Date Expiration Date V isits Requested Visits Authorized [id number] Closed Auto-Generate d Referral 06/30/2024 06/30/2025 1 1 Reason Comments Reminder Call Reason Comments Follow Up Discuss Right TKA - Referred by Rebekah Reason Comments Home Care CONFIRMATION CALL Reason Onset Date Comments Refill Request 08/01/2024 Reason Comments Home Care Bandage removal Reason Comments Post Op 1 week 5 days post o p Robotic assisted Right TKA Reason Onset Date Comments Refill Request 08/14/2024 Reason Comments Established Patient Post Op Reason Onset Date Comments Refill Request 09/05/2024 Reason Comments Patient Question Reason Onset Date Comments Results 09/25/2024 Reason Comments Post Op 11 weeks 5 days post op Robotic assisted Right TKA Reason Comments 6 Month Exam Reason Comments Prescription Medrol pack Reason Onset Date Comments Refill Request 11/14/2024 Reason Onset Date Comments Refill Request 01/16/2025 Reason Onset Date Comments Refill Request 01/18/2025 Reason Comments left foot pain and edema x 6-7 maxine hs Reason Comments Appointment FYI-No Action Needed Care Teams (unrecognized sec tion and content) Pastrycook'S Assistant Relationship Specialty Start Date End Date Scot Blank MD [address] [place] [address] PCP - General Family Practice 12/06/15 Pastrycook'S Assistant Relationship Specialty Start Date End Date Scot Blank MD [address] [place] [address] PCP - General Family Practice 12/06/15 Pastrycook'S Assistant Relationship Specialty Start Date End Date Scot Blank MD [address] [place] [address] PCP - General Family Practice 12/06/15 Pastrycook'S Assistant Relationship Specialty Start Date End Date Scot Blank MD [address] [place] [address] PCP - General Family Practice 12/06/15 Pastrycook'S Assistant Relationship Specialty Start Date End Date Scot Blank MD [address] [place] [address] PCP - General Family Medicine 12/06/15 Pastrycook'S Assistant Relationship Specialty Start Date End Date Scot Blank MD [address] [facility] [place] [address] PCP - General Family Medicine 12/06/15 Pastrycook'S Assistant Relationship Specialty Start Date End Date Scot Blank MD [address] [facility] [place] [address] PCP - General Family Medicine 12/06/15 Pastrycook'S Assistant Relationship Specialty Start Date End Date Scot Blank MD [facility] [place] [address] PCP - General Family Medicine 12/06/15 Pastrycook'S Assistant Relationship Specialty Start Date End Date Scot Blank MD [address] [place] [address], [place] [address] PCP - General Family Medicine 12/06/15 Pastrycook'S Assistant Relationship Specialty Start Date End Date Scot Blank MD [facility] [place] [address] PCP - General Family Medicine 12/06/15 Pastrycook'S Assistant Relationship Specialty Start Date End Date Scot Blank MD [facility] [place] [address] PCP - General Family Medicine 12/06/15 Pastrycook'S Assistant Relationship Specialty Start Date End Date Scot Blank MD [facility] [place] [address] PCP - General Family Medicine 12/06/15 Pastrycook'S Assistant Relationship Specialty Start Date End Date Scot Blank MD [facility] [place] [address] PCP - General Family Medicine 12/06/15 Pastrycook'S Assistant Relationship Specialty Start Date End Date Scot Blank MD [facility] [place] [address] PCP - General Family Medicine 12/06/15 Pastrycook'S Assistant Relationship Specialty Start Date End Date Scot Blank MD [address] [place] [address] PCP - General Family Medicine 12/06/15 Team Status: Active Member Role Status Dates Dr. Scot Blank MD Family Provider Active Dr. Scot Blank MD Primary Care Provider Active Team Status: Inactive Member Role Status Dates Dr. Scot Blank MD Primary Care Provider Active Dr. Gina Gibson DPM Attending Provider, Referring Provider Active Pastrycook'S Assistant Relationship Specialty Start Date End Date Scot Blank MD [address] [place] [address] PCP - General Family Medicine 12/06/15 Pastrycook'S Assistant Relationship Specialty Start Date End Date Scot Blank MD [address] [place] [address] PCP - General Family Medicine 12/06/15 Pastrycook'S Assistant Relationship Specialty Start Date End Date Scot Blank MD [address] [place] [address] PCP - General Family Medicine 12/06/15 Pastrycook'S Assistant Relationship Specialty Start Date End Date Scot Blank MD [address] [place] [address] PCP - General Family Medicine 12/06/15 Pastrycook'S Assistant Relationship Specialty Start Date End Date Scot Blank MD [address] [place] [address] PCP - General Family Medicine 12/06/15 Pastrycook'S Assistant Relationship Specialty Start Date End Date Scot Blank MD [address] [place] [address] PCP - General Family Medicine 12/06/15 Pastrycook'S Assistant Relationship Specialty Start Date End Date Scot Blank MD [address] [place] [address] PCP - General Family Medicine 12/06/15 Pastrycook'S Assistant Relationship Specialty Start Date End Date Scot Blank MD [address] [place] [address] PCP - General Family Medicine 12/06/15 Pastrycook'S Assistant Relationship Specialty Start Date End Date Scot Blank MD [address] [place] [address] PCP - General Family Medicine 12/06/15 Pastrycook'S Assistant Relationship Specialty Start Date End Date Scot Blank MD [address] [place] [address] PCP - General Family Medicine 12/06/15 Pastrycook'S Assistant Relationship Specialty Start Date End Date Scot Blank MD [address] [place] [address] PCP - General Family Medicine 12/06/15 Pastrycook'S Assistant Relationship Specialty Start Date End Date Scot Blank MD [address] [place] [address] PCP - General Family Medicine 12/06/15 Pastrycook'S Assistant Relationship Specialty Start Date End Date Scot Blank MD [address] [place] [address] PCP - General Family Medicine 12/06/15 Pastrycook'S Assistant Relationship Specialty Start Date End Date Scot Blank MD [address] [place] [address] PCP - General Family Medicine 12/06/15 Pastrycook'S Assistant Relationship Specialty Start Date End Date Scot Blank MD [address] [place] [address] PCP - General Family Medicine 12/06/15 Pastrycook'S Assistant Relationship Specialty Start Date End Date Scot Blank MD [address] [place] [address] PCP - General Family Medicine 12/06/15 Pastrycook'S Assistant Relationship Specialty Start Date End Date Scot Blank MD [address] [place] [address] PCP - General Family Medicine 12/06/15 Pastrycook'S Assistant Relationship Specialty Start Date End Date Scot Blank MD [address] [place] [address] PCP - General Family Medicine 12/06/15 Pastrycook'S Assistant Relationship Specialty Start Date End Date Scot Blank MD [address] [place] [address] PCP - General Family Medicine 12/06/15 Pastrycook'S Assistant Relationship Specialty Start Date End Date Scot Blank MD [address] [place] [address] PCP - General Family Medicine 12/06/15 Pastrycook'S Assistant Relationship Specialty Start Date End Date Scot Blank MD [address] [place] [address] PCP - General Family Medicine 12/06/15 Pastrycook'S Assistant Relationship Specialty Start Date End Date Scot Blank MD [address] [place] [address] PCP - General Family Medicine 12/06/15 Pastrycook'S Assistant Relationship Specialty Start Date End Date Scot Blank MD [address] [place] [address] PCP - General Family Medicine 12/06/15 Pastrycook'S Assistant Relationship Specialty Start Date End Date Scot Blank MD [address] [place] [address] PCP - General Family Medicine 12/06/15 Pastrycook'S Assistant Relationship Specialty Start Date End Date Scot Blank MD [address] [place] [address] PCP - General Family Medicine 12/06/15 Pastrycook'S Assistant Relationship Specialty Start Date End Date Scot Blank MD [address] [place] [address] PCP - General Family Medicine 12/06/15 Pastrycook'S Assistant Relationship Specialty Start Date End Date Scot Blank MD [address] [place] [address] PCP - General Family Medicine 12/06/15 Pastrycook'S Assistant Relationship Specialty Start Date End Date Scot Blank MD [address] [place] [address] PCP - General Family Medicine 12/06/15 Pastrycook'S Assistant Relationship Specialty Start Date End Date Scot Blank MD [address] [place] [address] PCP - General Family Medicine 12/06/15 Pastrycook'S Assistant Relationship Specialty Start Date End Date Scot Blank MD [address] [place] [address] PCP - General Family Medicine 12/06/15 Pastrycook'S Assistant Relationship Specialty Start Date End Date Scot Blank MD [address] [place] [address] PCP - General Family Medicine 12/06/15 Jefferson Wang, [facility] [address] [place] [address] Specialty Tile Picker Orthopedics 06/14/24 08/31/24 Pastrycook'S Assistant Relationship Specialty Start Date End Date Scot Blank MD [address] [place] [address] PCP - General Family Medicine 12/06/15 Jefferson Wang, [facility] [address] [place] [address] Specialty Tile Picker Orthopedics 06/14/24 08/31/24 Pastrycook'S Assistant Relationship Specialty Start Date End Date Scot Blank MD [address] [place] [address] PCP - General Family Medicine 12/06/15 Jefferson Wang, [facility] [address] [place] [address] Specialty Tile Picker Orthopedics 06/14/24 08/31/24 Quin Costa APRN.CNP [address] [place] [address] Fibreglass Laminator Family Medicine 06/17/24 Jaylin Combs PA-C [facility] [place] [address] Fibreglass Laminator Family Medicine 06/17/24 Pastrycook'S Assistant Relationship Specialty Start Date End Date Scot Blank MD [address] [place] [address] PCP - General Family Medicine 12/06/15 Jefferson Wang, [facility] [address] [place] [address] Specialty Tile Picker Orthopedics 06/14/24 08/31/24 Quin Costa APRN.ECHOCARDIOGRAPHER [address] [place] [address] Fibreglass Laminator Family Medicine 06/17/24 Jaylin Combs PA-C [address] [place] [address] Fibreglass Laminator Family Medicine 06/17/24 Pastrycook'S Assistant Relationship Specialty Start Date End Date Scot Blank MD [address] [place] [address] PCP - General Family Medicine 12/06/15 Jefferson Wang, [facility] [address] [place] [address] Specialty Tile Picker Orthopedics 06/14/24 08/31/24 Quin Costa APRN.ECHOCARDIOGRAPHER [address] [place] [address] Fibreglass Laminator Family Medicine 06/17/24 Jaylin Combs PA-C [address] [place] [address] Fibreglass Laminator Family Medicine 06/17/24 Pastrycook'S Assistant Relationship Specialty Start Date End Date Scot Blank MD [address] [place] [address] PCP - General Family Medicine 12/06/15 Jefferson Wang, [facility] [address] [place] [address] Specialty Tile Picker Orthopedics 06/14/24 08/31/24 Quin Costa APRN.ECHOCARDIOGRAPHER [address] [place] [address] Fibreglass Laminator Family Medicine 06/17/24 Jaylin Combs PA-C [address] [place] [address] Fibreglass Laminator Family Medicine 06/17/24 Pastrycook'S Assistant Relationship Specialty Start Date End Date Scot Blank MD [address] [place] [address] PCP - General Family Medicine 12/06/15 Jefferson Wang, [facility] [address] [place] [address] Specialty Tile Picker Orthopedics 06/14/24 08/31/24 Quin Costa APRN.ECHOCARDIOGRAPHER [address] [place] [address] Fibreglass Laminator Family Medicine 06/17/24 Jaylin Combs PA-C [address] [place] [address] Fibreglass Laminator Family [facility] 06/17/24 Pastrycook'S Assistant Relationship Specialty Start Date End Date Scot Blank MD [address] [place] [address] PCP - General Family Medicine 12/06/15 Pastrycook'S Assistant Relationship Specialty Start Date End Date Scot Blank MD [address] [place] [address] PCP - General Family Medicine 12/06/15 Jefferson Wang, [facility] [address] [place] [address] Specialty Tile Picker Orthopedics 06/14/24 08/31/24 Quin Costa APRN.ECHOCARDIOGRAPHER [address] [place] [address] Fibreglass Laminator [facility] 06/17/24 Jaylin Combs PA-C [address] [place] [address] [facility] 06/17/24 Pastrycook'S Assistant Relationship Specialty Start Date End Date Scot Blank MD [address] [place] [address] PCP - General Family Medicine 12/06/15 Jefferson Wang, [facility] [address] [place] [address] Specialty Tile Picker Orthopedics 06/14/24 08/31/24 Quin Costa APRN.ECHOCARDIOGRAPHER [address] [place] [address] [facility] 06/17/24 Jaylin Combs PA-C [address] [place] [address] [facility] 06/17/24 Jazzy Pereira, PT [address] [place] [address] Alley Worker Post Acute Care 07/27/24 Pastrycook'S Assistant Relationship Specialty Start Date End Date Scot Blank MD [address] [place] [address] PCP - General Family Medicine 12/06/15 Jefferson Wang, [facility] [address] [place] [address] Specialty [facility] Orth[facility]ics 06/14/24 08/31/24 Quin Costa APRN.ECHOCARDIOGRAPHER [address] [place] [address] Fibreglass Laminator Family [facility] 06/17/24 Jaylin Combs PA-C [address] [place], [place] 337298 [phone] Fibreglass Laminator Family [facility] 06/17/24 Jazzy Pereira, PT [address] [place] [address] Alley Worker Post Acute Care 07/27/24 Bryson Dhillon MD [address] [place], [place] 277781 Home Care Provider Orthopedics 07/28/24 Gina Samayoa PA-C [address] [place], [place] [phone] Referring Orthopedics 07/28/24 Pastrycook'S Assistant Relationship Specialty Start Date End Date Scot Blank MD [address] [place] [address] PCP - General Family Medicine 12/06/15 Jefferson Wang [facility] [address] [place] [address] Specialty Tile Picker Orthopedics 06/14/24 08/31/24 Quin Costa APRN.ECHOCARDIOGRAPHER [address] [place], [place] 634832 [phone] [facility] 06/17/24 Jaylin Combs PA-C [address] [place] [address] Fibreglass Laminator Family [facility] 06/17/24 Jazzy Pereira, PT [address] [place] [address] Alley Worker Post Acute Care 07/27/24 Bryson Dhillon MD [address] [place] [address] Home Care Provider Orthopedics 07/28/24 Gina Samayoa PA-C [address] [place] [address] Referring Orthopedics 07/28/24 Pastrycook'S Assistant Relationship Specialty Start Date End Date Scot Blank MD [address] [place] [address] [id number] PCP - General Family Medicine 12/06/15 Jefferson Wang [facility] [address] [place] [address] Specialty Tile Picker Orthopedics 06/14/24 08/31/24 Quin Costa APRN.ECHOCARDIOGRAPHER [address] [place] [address] [phone] Fibreglass Laminator Family [facility] 06/17/24 Jaylin Combs PA-C [address] [place] [address] [phone] Fibreglass Laminator Family [facility] 06/17/24 Jazzy Pereira, PT [address] [place], [place] [phone] Alley Worker Post Acute Care 07/27/24 Bryson Dhillon MD [address] [place] [address] Home Care Provider Orthopedics 07/28/24 Gina Samayoa PA-C [address] [place] [address] Referring Orthopedics 07/28/24 Pastrycook'S Assistant Relationship Specialty Start Date End Date Scot Blank MD [address] [place] [address] PCP - General Family Medicine 12/06/15 Jefferson Wang, [facility] [address] [place] [address] Specialty Tile Picker Orthopedics 06/14/24 08/31/24 Quin Costa APRN.ECHOCARDIOGRAPHER [address] [place] [address] Fibreglass Laminator Family [facility] 06/17/24 Jaylin Combs PA-C [address] [place] [address] Fibreglass Laminator [facility] 06/17/24 Jazzy Pereira, PT [address] [place] [address] Alley Worker Post Acute Care 07/27/24 Bryson Dhillon MD [address] [place] [address] Home Care Provider Orthopedics 07/28/24 Gina Samayoa PA-C [address] [place] [address] Referring Orthopedics 07/28/24 Pastrycook'S Assistant Relationship Specialty Start Date End Date Scot Blank MD [facility] [place] [address] PCP - General Family Medicine 12/06/15 Jefferson Wang, [facility] [address] [place] [address] Specialty Tile Picker Orthopedics 06/14/24 08/31/24 Quin Costa APRN.ECHOCARDIOGRAPHER [address] [place], [place] 592731 Fibreglass Laminator Family [facility] 06/17/24 Jaylin Combs PA-C [address] [place], [place] 734561 Fibreglass Laminator Family [facility] 06/17/24 Jazzy Pereira, PT [address] [place] [address] Alley Worker Post Acute Care 07/27/24 Bryson Dhillon MD [address] [place] [address] Home Care Provider Orthopedics 07/28/24 Gina Samayoa PA-C [address] [place] [address] Referring Orthopedics 07/28/24 Pastrycook'S Assistant Relationship Specialty Start Date End Date Scot Blank MD [address] [place] [address] PCP - General Family Medicine 12/06/15 Jefferson Wang [facility] [address] [place] [address] Specialty Tile Picker Orthopedics 06/14/24 08/31/24 Quin Costa APRN.ECHOCARDIOGRAPHER [address] [place], [place] 027721 [facility] 06/17/24 Jaylin Combs PA-C [address] [place] [address] Fibreglass Laminator [facility] 06/17/24 Jazzy Pereira, PT [address] [place] [address] Alley Worker Post Acute Care 07/27/24 Bryson Dhillon MD [address] [place] [address] Home Care Provider Orthopedics 07/28/24 Gina Samayoa PA-C [address] [place] [address] Referring Orthopedics 07/28/24 Pastrycook'S Assistant Relationship Specialty Start Date End Date Scot Blank MD [facility] [place], [place] 585961 PCP - General Family Medicine 12/06/15 Jefferson Wang [facility] [address] [place] [address] Specialty Tile Picker Orthopedics 06/14/24 08/31/24 Quin Costa APRN.ECHOCARDIOGRAPHER [address] [place] [address] [phone] Fibreglass Laminator Family Medicine 06/17/24 Jaylin Combs PA-C [address] [place] [address] [phone] Fibreglass Laminator Family [facility] 06/17/24 Jazzy Pereira, PT [address] [place] [address] Alley Worker Post Acute Care 07/27/24 Bryson Dhillon MD [address] [place] [address] Home Care Provider Orthopedics 07/28/24 Gina Samayoa PA-C [address] [place] [address] Referring Orthopedics 07/28/24 Pastrycook'S Assistant Relationship Specialty Start Date End Date Scot Blank MD [address] [place], [place] 959661 PCP - General Family Medicine 12/06/15 Jefferson Wang, [facility] [address] [place] [address] Specialty Tile Picker Orthopedics 06/14/24 08/31/24 Quin Costa APRN.ECHOCARDIOGRAPHER [address] [place] [address] Fibreglass Laminator Family Medicine 06/17/24 Jaylin Combs PA-C [address] [place] [address] Fibreglass Laminator Family Medicine 06/17/24 Bryson Dhillon MD [address] [place] [address] Home Care Provider Orthopedics 07/28/24 Gina Samayoa PA-C [address] [place] [address] Referring Orthopedics 07/28/24 Pastrycook'S Assistant Relationship Specialty Start Date End Date Scot Blank MD [address] [place] [address] PCP - General Family Medicine 12/06/15 Jefferson Wang, [facility] [address] [place] [address] Specialty Tile Picker Orthopedics 06/14/24 08/31/24 Quin Costa APRN.ECHOCARDIOGRAPHER [address] [place] [address] Fibreglass Laminator Family Medicine 06/17/24 Jaylin Combs PA-C [address] [place] [address] Fibreglass Laminator Family Medicine 06/17/24 Bryson Dhillon MD [address] [place] [address] Home Care Provider Orthopedics 07/28/24 Gina Samayoa PA-C [address] [place] [address] Referring Orthopedics 07/28/24 Pastrycook'S Assistant Relationship Specialty Start Date End Date Scot Blank MD [facility] [place] [address] PCP - General Family Medicine 12/06/15 Jefferson Wang [facility] [address] [place] [address] Specialty Tile Picker Orthopedics 06/14/24 08/31/24 Quin Costa APRN.[facility] [address] [place] [address] Fibreglass Laminator Family Medicine 06/17/24 Jaylin Combs PA-C [address] [place] [address] Fibreglass Laminator Family Medicine 06/17/24 Bryson Dhillon MD [address] [place] [address] Home Care Provider Orthopedics 07/28/24 Gina Samayoa PA-C [address] [place] [address] Referring Orthopedics 07/28/24 Pastrycook'S Assistant Relationship Specialty Start Date End Date Scot Blank MD [address] [place] [address] PCP - General Family Medicine 12/06/15 Jefferson Wang [facility] [address] [place] [address] Specialty Tile Picker Orthopedics 06/14/24 08/31/24 Quin Costa APRN.ECHOCARDIOGRAPHER [address] [place] [address] Fibreglass Laminator Family Medicine 06/17/24 Jaylin Combs PA-C [address] [place] [address] Fibreglass Laminator Family Medicine 06/17/24 Bryson Dhillon MD [address] [place], [place] 990741 Home Care Provider Orthopedics 07/28/24 Gina Samayoa PA-C [address] [place] [address] Referring Orthopedics 07/28/24 Pastrycook'S Assistant Relationship Specialty Start Date End Date Scot Blank MD [facility] [place], [place] 552901 PCP - General Family Medicine 12/06/15 Quin Costa APRN.ECHOCARDIOGRAPHER [address] [place] [address] [phone] Fibreglass Laminator Family Medicine 06/17/24 Jaylin Combs PA-C [address] [place] [address] Fibreglass Laminator Family Medicine 06/17/24 Bryson Dhillon MD [address] [place] [address] Home Care Provider Orthopedics 07/28/24 Gina Samayoa PA-C [address] [place] [address] [phone] Referring Orthopedics 07/28/24 Pastrycook'S Assistant Relationship Specialty Start Date End Date Scot Blank MD [facility] [place] [address] PCP - General Family Medicine 12/06/15 Quin Costa APRN.ECHOCARDIOGRAPHER [address] [place] [address] Fibreglass Laminator Family Medicine 06/17/24 Jaylin Combs PA-C [address] [place] [address] Fibreglass Laminator Family Medicine 06/17/24 Bryson Dhillon MD [address] [place] [address] Home Care Provider Orthopedics 07/28/24 Gina Samayoa PA-C [address] [place] [address] 15665 Referring Orthopedics 07/28/24 Pastrycook'S Assistant Relationship Specialty Start Date End Date Scot Blank MD [address] [place] [address] PCP - General Family Medicine 12/06/15 Quin Costa APRN.ECHOCARDIOGRAPHER [facility] [place] [address] Fibreglass Laminator Family Medicine 06/17/24 Jaylin Combs PA-C [facility] [place] [address] Fibreglass Laminator Family Medicine 06/17/24 Bryson Dhillon MD [address] [place] [address] Home Care Provider Orthopedics 07/28/24 Gina Samayoa PA-C [address] [place] [address] 41061 Referring Orthopedics 07/28/24 Pastrycook'S Assistant Relationship Specialty Start Date End Date Scot Blank MD [address] [place] [address] PCP - General Family Medicine 12/06/15 Jefferson Wang [facility] [address] [place] [address] Specialty Tile Picker Orthopedics 06/14/24 08/31/24 Quin Costa, KJ.ECHOCARDIOGRAPHER [address] [place] [address] Fibreglass Laminator Family [facility] 06/17/24 Jaylin Combs PA-C [address] [place] [address] Fibreglass Laminator Family Medicine 06/17/24 Bryson Dhillon MD [address] [place] [address] Home Care Provider Orthopedics 07/28/24 Gina Samayoa PA-C [address] [place] [address] 48411 Referring Orthopedics 07/28/24 Pastrycook'S Assistant Relationship Specialty Start Date End Date Scot Blank MD [address] [place] [address] PCP - General Family Medicine 12/06/15 Quin Costa APRN.ECHOCARDIOGRAPHER [address] [place] [address] Fibreglass Laminator Family Medicine 06/17/24 Jaylin Combs PA-C [address] [place] [address] Fibreglass Laminator Family Medicine 06/17/24 Bryson Dhillon MD [address] [place], [place] 083971 Home Care Provider Orthopedics 07/28/24 Gina Samayoa PA-C [address] [place] [address] [phone] Referring Orthopedics 07/28/24 Pastrycook'S Assistant Relationship Specialty Start Date End Date Scot Blank MD [address] [place] [address] PCP - General Family Medicine 12/06/15 Quin Costa, KJ.ECHOCARDIOGRAPHER [address] [place] [address] Fibreglass Laminator Family Medicine 06/17/24 Jaylin Combs PA-C [address] [place] [address] Fibreglass Laminator Family Medicine 06/17/24 Bryson Dhillon MD [address] [place] [address] Home Care Provider Orthopedics 07/28/24 Gina Samayoa PA-C [address] [place] [address] [phone] Referring Orthopedics 07/28/24 Pastrycook'S Assistant Relationship Specialty Start Date End Date Scot Blank MD [address] [place] [address] PCP - General Family Medicine 12/06/15 Quin Costa APRN.ECHOCARDIOGRAPHER [address] [place] [address] Fibreglass Laminator Family Medicine 06/17/24 Jaylin Combs PA-C [address] [place] [address] Fibreglass Laminator Family Medicine 06/17/24 Bryson Dhillon MD [address] [place] [address] Home Care Provider Orthopedics 07/28/24 Gina Samayoa PA-C [address] [place] [address] 52366 Referring Orthopedics 07/28/24 Pastrycook'S Assistant Relationship Specialty Start Date End Date Scot Blank MD [address] [place] [address]694 PCP - General Family Medicine 12/06/15 Quin Costa APRN.ECHOCARDIOGRAPHER [address] [place] [address] Fibreglass Laminator Family Medicine 06/17/24 Jaylin Combs PA-C [facility] [place] [address] Fibreglass Laminator Family Medicine 06/17/24 Bryson Dhillon MD [address] [place] [address] Home Care Provider Orthopedics 07/28/24 Gina Samayoa PA-C [address] [place] [address] [phone] Referring Orthopedics 07/28/24 Pastrycook'S Assistant Relationship Specialty Start Date End Date Scot Blank MD [address] [place] [address] PCP - General Family Medicine 12/06/15 Quin Costa, KJ.ECHOCARDIOGRAPHER [address] [place] [address] Fibreglass Laminator Family Medicine 06/17/24 Jaylin Combs PA-C [address] [place] [address] Fibreglass Laminator Family Medicine 06/17/24 Bryson Dhillon MD [address] [place] [address] Home Care Provider Orthopedics 07/28/24 Gina Samayoa PA-C [address] [place] [address] 90769 Referring Orthopedics 07/28/24 Pastrycook'S Assistant Relationship Specialty Start Date End Date Scot Blank MD [address] [place] [address]69 PCP - General Family Medicine 10/16/24 Quin Costa APRN.ECHOCARDIOGRAPHER [address] [place] [phone] [facility] 06/17/24 Jaylin Combs PA-C [address] [place] [address] [phone] [facility] 06/17/24 Bryson Dhillon MD [address] [place] [address] Home Care Provider Orthopedics 07/28/24 Gina Samayoa PA-C [address] [place] [address] [phone] Referring Orthopedics 07/28/24 Pastrycook'S Assistant Relationship Specialty Start Date End Date Scot Blank MD [address] [place] [address] PCP - General Family Medicine 10/16/24 Quin Costa APRN.ECHOCARDIOGRAPHER [address] [place] [address] [phone] [employer] [facility] 06/17/24 Jaylin Combs PA-C [address] [place] [address] [phone] [facility] 06/17/24 Bryson Dhillon MD [address] [place] [address] Home Care Provider Orthopedics 07/28/24 Gina Samayoa PA-C [address] [place] [address] [phone] Referring Orthopedics 07/28/24 Pastrycook'S Assistant Relationship Specialty Start Date End Date Scot Blank MD [address] [place] [address] PCP - General Family Medicine 10/16/24 Quin Costa APRN.ECHOCARDIOGRAPHER [address] [place] [address] [facility] 06/17/24 Jaylin Combs PA-C [address] [place] [address] [facility] 06/17/24 Bryson Dhillon MD [address] [place] [address] Home Care Provider Orthopedics 07/28/24 Gina Samayoa PA-C [address] [place] [address] [phone] Referring Orthopedics 07/28/24 Pastrycook'S Assistant Relationship Specialty Start Date End Date Scot Blank MD [address] [place] [address] PCP - General Family Medicine 10/16/24 Quin Costa APRN.ECHOCARDIOGRAPHER [address] [place] [address] [facility] 06/17/24 Jaylin Combs PA-C [address] [place] [address] [facility] 06/17/24 Bryson Dhillon MD [address] [place] [address] Home Care Provider Orthopedics 07/28/24 Gina Samayoa PA-C [address] [place] [address] [phone] Referring Orthopedics 07/28/24 Pastrycook'S Assistant Relationship Specialty Start Date End Date Scot Blank MD [address] [place] [address] [id number] PCP - General Family Medicine 12/06/15 10/15/24 Scot Blank MD [address] [place] [address] [phone] PCP - General Family Medicine 10/16/24 Quin Costa APRN.[facility] [address] [place] [address] [phone] [facility] [facility] 06/17/24 11/26/24 Jaylin Combs PA-C [address] [place] [address] [phone] [facility] 06/17/24 Bryson Dhillon MD [address] [place] [address] Home Care Provider Orthopedics 07/28/24 Gina Samayoa PA-C [address] [place] [address] [phone] Referring Orthopedics 07/28/24 Pastrycook'S Assistant Relationship Specialty Start Date End Date Scot Blank MD [address] [place] [address] PCP - General Family Medicine 10/16/24 Bryson Dhillon MD [address] [place] [address] Home Care Provider Orthopedics 07/28/24 Gina Samayoa PA-C [address] [place] [address] [phone] Referring Orthopedics 07/28/24 Quin Costa APRN.ECHOCARDIOGRAPHER [address] [place] [address] 75[address] [facility] 12/11/24 Jaylin Combs PA-C [address] [place] [address] [phone] [facility] 12/11/24 Pastrycook'S Assistant Relationship Specialty Start Date End Date Scot Blank MD [address] [place] [address] PCP - General Family Medicine 10/16/24 Bryson Dhillon MD [address] [place] [address] Home Care Provider Orthopedics 07/28/24 Gina Samayoa PA-C [address] [place] [address] [phone] Referring Orthopedics 07/28/24 Quin Costa APRN.ECHOCARDIOGRAPHER [address] [place] [address] [phone] [facility] 12/11/24 Jaylin Combs PA-C [address] [place] [address] 389[address] [facility] 12/11/24 Pastrycook'S Assistant Relationship Specialty Start Date End Date Scot Blank MD [address] [place] [address] PCP - General Family Medicine 10/16/24 Bryson Dhillon MD [address] [place] [address] Home Care Provider Orthopedics 07/28/24 Gina Samayoa PA-C [address] [place] [address] [phone] Referring Orthopedics 07/28/24 Quin Costa APRN.ECHOCARDIOGRAPHER [address] [place] [address] [facility] 12/11/24 Jaylin Combs PA-C [address] [place] [address] [phone] [facility] 12/11/24 Pastrycook'S Assistant Relationship Specialty Start Date End Date Scot Blank MD [address] [place] [address] PCP - General Family Medicine 10/16/24 Bryson Dhillon MD [address] [place] [address] Home Care Provider Orthopedics 07/28/24 Gina Samayoa PA-C [address] [place] [address] [phone] Referring Orthopedics 07/28/24 Quin Costa APRN.ECHOCARDIOGRAPHER [address] [place] [address], [place] [address] [facility] 12/11/24 Jaylin Combs PA-C [address] [place] [address] [facility] 12/11/24 Pastrycook'S Assistant Relationship Specialty Start Date End Date Scot Blank MD [address] [place] [address] PCP - General Family Medicine 10/16/24 Bryson Dhillon MD [address] [place] [address] Home Care Provider Orthopedics 07/28/24 Gina Samayoa PA-C [address] [place] [address] [phone] Referring Orthopedics 07/28/24 Quin Costa APRN.CNP [address] [place] [address] [phone] [facility] 12/11/24 Jaylin Combs PA-C [address] [place] [address] [facility] 12/11/24 Pastrycook'S Assistant Relationship Specialty Start Date End Date Scot Blank MD [address] [place] [address] PCP - General Family Medicine 10/16/24 Bryson Dhillon MD [address] [facility] [place] [address] Home Care Provider Orthopedics 07/28/24 Gina Samayoa PA-C [address] [place] [address] Referring Orthopedics 07/28/24 Quin Costa APRN.CNP [address] [place], [place] [phone] [facility] 12/11/24 Jaylin Combs PA-C [address] [place] [address] [employer] [facility] 12/11/24 Team Status: Active Member Role/Relationship Status Dates Dr. Scot Blank MD Primary Care Provider Active Team Status: Active Member Role/Relationship Status Dates Dr. Scot Blank MD Primary Care Provider Active Start: February 12, 2025 Dr. Nadir Nunn DPM Attending Provider Active Start: February 12, 2025 Dr. Nadir Nunn DPM Referring Provider Active Start: February 12, 2025 Team Status: Inactive Member Role/Relationship Status Dates Dr. Scot Blank MD Primary Care Provider Active Start: February 12, 2025 End: February 12, 2025 Dr. Fidel Marte MD Emergency Provider Active Sta rt: February 12, 2025 End: February 12, 2025 Goals (unrecognized section and content) Goals may be documented in a n alternate sectionGoals may be documented in an alternate sectionGoals may be documented in an alternate sectionGoals may be documented in an alternate section FOR RECORDS PERTAINING TO PATIENTS WHO ARE OR HAVE BEEN ENROLLED IN A CHEMICAL DEPENDENCY/SUBSTANCEABUSE PROGRAM, SOME INFORMATION MAY BE OMITTED. This clinical summary was aggregated from multiple sources. Caution should be exercised in using it in the provision of clinical care. This summary normalizes information from multiple sources, and as a consequence, information in this document may materially change the coding, format and clinical context of patient data. In addition, data may be omitted in some cases. CLINICAL DECISIONS SHOULD BE BASED ON THE PRIMARY CLINICAL RECORDS. [facility] [employer] provides no warranty or guarantee of the accuracy or completeness of information in this document.
--- OUTSIDE RECORDS SUMMARY | 2025-02-12 22:45 | XMS RPT_ITS | CCD ---
Author Organization [facility] Care Team Providers Care Paleologist Name Role Phone NATALI ROJAS Unavailable Unavail able PAPNATALI SOLOMON Unavailable Unavail able PAPJUANITO NATALI JOHNNIE Unavailable Unavail able Scot Blank MD Primary Care Provider [phone] Scot Blank MD Primary Care Provider Scot Blank MD Primary Care Provider Scot Blank MD Primary Care Provider Dr. Gina Gibson Referring Unavailable Dr. Gina Gibson Attending Unavailable Scot Blank Primary Care Unavailable Haritha Egan Attending Unavailable Haritha Egan Primary Care Unavailable Dr. Gina Gibson Attending Unavailable Scot Blank Primary Care Unavailable Dr. Gina Gibson Referring Unavailable Scot Blank MD Primary Care Provider Scot Blank MD Primary Care Provider Jefferson Thomason Unavailable Unavailable Quin Costa APRN.CNP Unavailable Jaylin Combs PA-C Unavailable [phone] Jazzy Pereira PT Unavailable [phone] Bryson Dhillon MD Unavailable Gina Samayoa PA-C Unavailable SCOT BLANK Primary [...] Provider Scot Blank MD Primary Care Provider Julissa ADVERTISING INTERNSHIP.MEDICAL ENGINEER Quin Unavailable Julissa ADVERTISING INTERNSHIP.MEDICAL ENGINEER, Quin Unavailable Jaylin Combs PA-C Unavailable BRYSON DHILLON Referring Unavailable ABHAY, SCOT [...] Unavailable ABHAY, SCOT A Primary Care Unavailable LDIYA PENA Referring Unavailable ABHAY, SCOT A Primary [...] ABHAY, SCOT A Primary Care Unavailable Dr. cSot Blank MD Primary Care Provider [phone] Edouard MEEKS, Dr. Schmitz Attending Provider [phone] Dr. Nadir Nunn DPM Referring Provider [phone] Dr. Fidel Marte MD Emergency Provider [phone] Allergies Allergy Classification Reported Allergen(s) Allergy Type Date of Onset Reaction(s) Facility (20 sources) celecoxib; Translations: [CELECOXIB] Drug Allergy 02-09-20 06 GI Upset [facility] Repository (20 sources) dicyclomine; Translations: [DICYCLOMINE] Drug Allergy 09-10-19 12 Other: See Comments [facility] Repository Comment on above: DRY MOUTH BLURRED VISON LOSS OF TASTE (20 sources) dicyclomine; Translations: [DICYCLOMINE HCL] Drug Allergy 10-04-19 10 Unknown [facility] Repository (20 sources) estradiol; Translations: [ESTRADIOL] Drug Allergy 03-17-20 05 Itching [facility] Repository (20 sources) FLUoxetine; Translations: [FLUOXETINE HCL] Drug Allergy 03-17-20 05 Unknown [facility] Repository (1 source) fluticasone / salmeterol; Translations: [FLUTICASONE-SALM ETEROL] Drug Allergy 05-14-20 11 AOF [facility] Repository (20 sources) hyoscyamine; Translations: [HYOSCYAMINE SULFATE] Drug Allergy 10-04-19 10 Unknown [facility] Repository (20 sources) methylprednisoLON E; Translations: [METHYLPREDNISOLO NE] Drug Allergy 09-28-19 15 Other: See Comments [facility] Repository Comment on above: DRY MOUTH SORE THROAT (20 sources) oxyCODONE; Translations: [OXYCODONE HCL] Drug Allergy 07-19-19 16 Itching [facility] Repository (20 sources) Penicillins; Translations: [PENICILLINS] Propensity to adverse reactions to drug (disorder) 03-17-20 05 Itching [facility] Repository (20 sources) predniSONE; Translations: [PREDNISONE] Drug Allergy 03-17-20 05 Rash [facility] Repository (20 sources) raloxifene; Translations: [RALOXIFENE HCL] Drug Allergy 03-17-20 05 Itching [facility] Repository (20 sources) fluticasone / salmeterol; Translations: [FLUTICASONE PROPION-SALMETERO L] Drug Allergy 05-14-20 11 Intolerance [facility] Work Phone: (20 sources) meloxicam; Translations: [MELOXICAM] Drug Allergy 05-22-20 19 Intolerance [facility] Work Phone: (20 sources) Morphine; Translations: [MORPHINE] Drug Allergy 03-03-20 17 GI Upset [facility] (20 sources) NITROFURANTOIN, MACROCRYSTALS / Nitrofurantoin, Monohydrate; Translations: [NITROFURANTOIN MONOHYD/M-CRYST] Drug Allergy 07-22-19 18 Other: See Comments [facility] Work Phone: (20 sources) Non-steroidal anti-inflammatory agent; Translations: [NSAIDS (NON-STEROIDAL ANTI-INFLAMMATORY DRUG)] Drug Intolerance 11-01-19 21 Other: See Comments [facility] Work Phone: (20 sources) Sulfamethizole; Translations: [SULFAMETHIZOLE] Drug Allergy 11-17-19 20 GI Upset [facility] Work Phone: (4 sources) FLUoxetine Drug Allergy 05-22-20 19 Nausea (4 sources) fluticasone Drug Allergy 05-22-20 19 Other Comment on above: HURTS THROAT (4 sources) Hyoscyamine Drug Allergy 05-22-20 19 Unknown (4 sources) oxyCODONE Drug Allergy 05-22-20 19 Itching (4 sources) Raloxifene Drug Allergy 05-22-20 19 Itching (4 sources) salmeterol Drug Allergy 05-22-20 19 Other Comment on above: HURTS THROAT (20 sources) Non-steroidal anti-inflammatory agent Drug Intolerance 11-01-19 Other: See Comments [facility] Work Phone: (1 source) FLUoxetine Drug Allergy 12-19-19 23 Repository (1 source) fluticasone Drug Allergy 12-19-19 23 Repository (1 source) Hyoscyamine Drug Allergy 12-19-19 23 Repository (1 source) meloxicam Drug Allergy 12-19-19 23 Repository (1 source) Morphine Drug Allergy 12-19-19 23 Repository (1 source) oxyCODONE Drug Allergy 12-19-19 23 Repository (1 source) Raloxifene Drug Allergy 12-19-19 23 Repository (1 source) salmeterol Drug Allergy 12-19-19 23 Repository Medications Current Medications Medication Drug Class(es) [...] acute postprocedural pain Other acute postprocedural pain [id number] 200 actuat albuterol 0.09 mg/actuat metered dose [...] on above: Take 1 capsule by mo [facility] once daily. cyclobenzaprine hydrochloride 5 mg oral [...] Comment on above: Take 1 tablet by [facility] daily at bedtime. mupirocin 0.02 mg/mg [...] a day as needed. polyethylene glycol 3350 10803 mg powder for oral solution (9 sources) [...] Comment on above: Take 1 capsule by [facility] two times a day for 10 days. cetirizine hydrochloride 10 mg oral tablet (14 sources) Histamine-1 Receptor Antagonist Start: End: take 1 tablet by mouth once daily cetirizine (ZYRTEC) 10 mg tablet Take 1 tablet by mouth once daily. 30 tablet 1 10/04/2023 03/24/2024 Discontinued Comment on above: Take 1 tablet by [facility] once daily. ciprofloxacin 500 mg oral tablet (2 sources) Quinolone Antimicrobial Start: End: take 1 tablet by mouth twice daily ciprofloxacin HCl (CIPRO) 500 mg tablet Take 1 tablet by mouth twice daily. 6 tablet 03/27/2021 09/22/2021 Discontinued (Course of therapy completed) 12 hr dextromethorphan hydrobromide 30 mg / guaiFENesin 600 mg extended release oral tablet (18 sources) Uncompetitive P-cqpjdm-J-aspartate Receptor Antagonist, Sigma-1 Agonist End: take 1 [...] on above: Take 1 capsule by mo [facility] once daily. 10 ml lidocaine hydrochloride 10 [...] 08/19/2022 Discontinued End: 08-19-2022 POLYETHYLENE GLYCOL 3350 (WI RALAX ORAL) Take 1 Packet by mouth as needed. 0 08/19/2022 Discontinued POLYETHYLENE GLY COL 3350 (MIRALAX ORAL) Take 1 Packet by mouth as needed. 0 Active Comment on above: Take 1 Packet by shaliin as needed. predniSONE 10 mg oral tablet [...] 02-12-2022 Unclassified (20 sources) Total Knee Replacement Collections Associate Onset: 4 06-14-2024 Past or Other Problems [...] (1 source) Drug therapy finding; Translations: [Other usp (current) drug therapy] Onset: 0 08-25-2019 Episodic Other aftercare (20 sources) Patient encounter status; Translations: [Other usp (current) drug therapy] Onset: 6 Resolved: 9 08-25-2019 Episodic Other aftercare (1 source) Other rn long term care (current) drug therapy; Translations: [Medication management] Onset: [...] Test Name Value Interpretation Reference Range Facility [facility] 02-05-2025 [facility] Telephone (FAMPWS) -- NORA CAMARILLO ([id number]) 1950 F Date Time Provider Department 02/05/25 [...] does not want to see podiatry at [facility] but sees a provider in the community. CLARE Hubbard Amy M, MA 02/05/2025 2:38 PM Signed Orthopedic office did not call patient. aJylin Combs PA-C 02/05/2025 2:43 PM Signed I have listed that we were referring to the [facility] here in [place]. I'm assuming that the consult automatically gets [...] 07/22/2017 Routine general medical examination at a [facility]*11/20/2009 12/22/2011 Class: Chronic Routine gynecological examination [Z01.419] [...] Well adult (more content not included)... Normal [facility] CNOVon 01-22-2025 CNOV Office Visit (FAMPWS ) -- NORA CAMARILLO ([id number]) 1950 F Date Time Provider Department 01/22/25 [...] hernia 07/22/2016 Left hip pain 09/14/[address] [place] [address] Xander Martinez Left lateral abdominal [...] hand smoke exposure 11/08/2023 Senile osteoporosis 01/05/2006 Licensed Occupational Therapist following (Dr. Dobson) Simple cyst of breast [...] nerve decom (more content not included)... Normal [facility] XR ANKLE 3V AP/LAT/OBL LTon 01-22-2025 XR [...] calcaneal enthesophyte. IMPRESSION: No acute bony abnormality. Handbag Framer: NANCY Transcribe Date/Time: Jan 28 2025 8:56P Dictated by : JERMAINE BETANCOURT MD This examination was interpreted and the report reviewed and electronically signed by: JERMAINE BETANCOURT MD on Jan 28 2025 8:57PM EST [id number] Normal [facility] CNPNon 10-25-2024 CNPN Telephone (FAMPWS) -- NORA CAMARILLO ([id number]) 1950 F Date Time Provider Department 10/25/24 [...] sent in. Will msg provider. Pt requests [facility] pharmacy in [place]. Jaylin Combs PA-C 10/25/2024 2:40 PM Signed [...] obstruc*01/24/2007 07/22/2017 Routine general medical examination at [facility]*11/20/2009 12/22/2011 Class: Chronic Routine gynecological examination [Z01.419] [...] subsequent [Z00*01/21/2017 (more content not included)... Normal [facility] CNOVon 10-24-2024 CNOV Office Visit (FAMPWS ) -- NORA CAMARILLO ([id number]) 1950 F Date Time Provider Department 10/24/24 [...] hernia 07/22/2016 Left hip pain 09/14/[address] [place] [address] Xander Martinez Left lateral abdominal [...] hand smoke exposure 11/08/2023 Senile osteoporosis 01/05/2006 Licensed Occupational Therapist following (Dr. Dobson) Simple cyst of breast [...] ELTRD 08 (more content not included)... Normal [facility] CNOVon 10-16-2024 CNOV Office Visit (ORTHWS ) -- NORA CAMARILLO ([id number]) 1950 F Date Time Provider Department 10/16/24 12:45 PM BRYSON DHILLON During your visit today, we recorded the following information about you: Bryson Dhillon MD 10/16/2024 6:30 PM Signed Bryson Dhillon MD Department of Orthopaedics Orthopaedics [facility] [address] Dept: [phone] Dept October 16, 2024 CHIEF COMPLAINT: Post [...] draft documentation of the visit consistent with [facility]?s Notice of Privacy Practices. Bryson Dhillon MD Referring Provider: BRYSON DHILLON [[id number]] Allergies As of Date: 10/16/2024 Noted Allergy [...] unit) cap (more content not included)... Normal [facility] SCREENINGon 10-03-2024 AKLLI SCREENING * * *Final Report* * * DATE OF EXAM: Oct 03 2024 2:56PM [id number] - KALLI SCREENING / PROCEDURE REASON: multiple diagnoses * * * * Physician Interpretation * * * * RESULT: [facility] [address] [place] [address] #[id number] - [facility] SCREENING HISTORY: 74 year-old patient seen for [...] Lesley Vinson M.D. Electronically signed on: 10/04/2024 Handbag Framer: TRENA Transcribe Date/Time: Oct 03 2024 2:45P Dictated by: LESLEY VINSON MD This examination was interpreted and the report reviewed and electronically signed by: LESLEY VINSON MD on Oct 04 2024 8:05AM EST [id number] Normal [facility] CNPMariah 09-18-2024 HAIM Telephone (ORTHWS) -- NORA CAMARILLO ([id number]) 1950 F Date Time Provider Department 09/18/24 BRYSON DHILLON During your visit today, we [...] Fully Assessed Reason for Visit: Patient Question [] Prescriptions as of 09/18/2024 - cholecalciferol, Vitamin [...] 07/22/2017 Routine general medical examination at a [facility]*11/20/2009 12/22/2011 Class: Chronic Routine gynecological examination [Z01.419] [...] management [Z79. (more content not included)... Normal [facility] CNTHERAPYon 09-18-2024 CNTHERAPY OT/PT/Speech Visit ( PTWS) -- NORA CAMARILLO ([id number]) 1950 F Date Time Provider Department 09/18/24 10:45 AM XANDER WU PTWS Date Time Provider Department [place] 09/18/2024 10:45 AM [id number], COREY PTWS Matti Catie Reason for Visit: [...] daily. to affected area as needed Normal [facility] 25(OH)D3 SerPl-mCncon 2024 25-hydroxyvitamin D3 [Mass/Vol] 85.0 ng/mL Normal >=30.0 [facility] Comment on above: Order Comment: Vinita fierro Type: BLOOD SPECIMEN Ordering Facility: [facility] Address: [address] [place] [address] Result Comment: Clas sification of 25 [place] Vitamin D status: Deficiency: <= 20.0 ng/ml. Insufficiency: 21.0-29.0 ng/ml. Sufficiency: >= 30.0 ng/ml. Performed By: #### L NAVEED, 2131- #### [facility] CLIA [id number] [address] [place] [address] [place] Basic metabolic 2000 panelon 09-15-2024 Anion gap [Moles/Vol] 11 mmol/L Normal 8-15 [facility] Comment on above: Order Comment: Vinita fierro Type: BLOOD SPECIMEN Ordering Facility: [facility] Address: [address] [place] [address] Performed By: #### L IPNF, 2132-03 #### [facility] CLIA [id number] [address] [place] [address] [place] Calcium [Mass/Vol] 9.3 mg/dL Normal 8.5-10.2 [facility] Comment on above: Order Comment: Speci men Type: BLOOD SPECIMEN Ordering Facility: [facility] Address: [address] [place] [address] Performed By: #### L IPNF, 2132-03 #### [facility] CLIA [id number] [address] [place] [address] [place] Chloride [Moles/Vol] 103 mmol/L Normal 98-107 [facility] Comment on above: Order Comment: Speci men Type: BLOOD SPECIMEN Ordering Facility: [facility] Address: [address] [place] [address] Performed By: #### L IPNF, 2132-03 #### [facility] CLIA [id number] [address] [place] [address] [place] CO2 [Moles/Vol] 24 mmol/L Normal 22-30 [facility] Comment on above: Order Comment: Speci men Type: BLOOD SPECIMEN Ordering Facility: [facility] Address: [address] [place] [address] Performed By: #### L IPNF, 2132-03 #### [facility] CLIA [id number] [address] [place] Creatinine [Mass/Vol] 0.57 mg/dL Low 0.58-0.96 [facility] Comment on above: Order Comment: Speci men Type: BLOOD SPECIMEN Ordering Facility: [facility] Address: [address] [place] [address] Performed By: #### L IPNF, 2132-03 #### [facility] CLIA [id number] [address] [place] Creatinine and Glomerular filtration rate.predicted panel (S/P/Bld) 95 mL/min/1.73m??? Normal >=60 [facility] Comment on above: Order Comment: Speci men Type: BLOOD SPECIMEN Ordering Facility: [facility] Address: [address] [place] [address] Result Comment: Brittani mated Glomerular Filtration Rate [...] Performed By: #### L IPNF, 2132-03 #### [facility] CLIA [id number] [address] [place] [address] [place] Glucose [Mass/Vol] 101 mg/dL High 74-99 [facility] Comment on above: Order Comment: Vinita fierro Type: BLOOD SPECIMEN Ordering Facility: [facility] Address: [address] [place] [address] Result Comment: The [place] Diabetes Association (ADA) provides guidance for cutoff [...] Standards of Medical Care in Diabetes 2016, [place] Diabetes Association. Diabetes Care. 2016.39(Suppl 1). Performed By: #### L IPNF, 2132-03 #### [facility] CLIA [id number] [address] [place] [address] [place] Potassium [Moles/Vol] 4.3 mmol/L Normal 3.7-5.1 [facility] Comment on above: Order Comment: Vinita fierro Type: BLOOD SPECIMEN Ordering Facility: [facility] Address: [address] [place] [address] Performed By: #### L IPNF, 2132-03 #### [facility] CLIA [id number] [address] [place] Sodium [Moles/Vol] 138 mmol/L Normal 136-144 [facility] Comment on above: Order Comment: Vinita fierro Type: BLOOD SPECIMEN Ordering Facility: [facility] Address: [address] [place] [address] Performed By: #### L IPNF, 2132-03 #### [facility] CLIA [id number] [address] [place] Urea nitrogen [Mass/Vol] 12 mg/dL Normal 7-21 [facility] Comment on above: Order Comment: Vinita fierro Type: BLOOD SPECIMEN Ordering Facility: [facility] Address: [address] [place] [address] Performed By: #### L IPNF, 2132-03 #### [facility] CLIA [id number] [address] OF [facility] CNTHERAPYon 09-15-2024 CNTHERAPY OT/PT/Speech Visit ( PTWS) -- NORA CAMARILLO ([id number]) 1950 F Date Time Provider Department 09/15/24 11:00 AM XANDER WU PTWS Date Time Provider Department Center 09/15/2024 11:00 AM [id number], COREY PTWS Matti Stewart Reason for Visit: [...] daily. to affected area as needed Normal [facility] HbA1c (Bld)on 09-15-2024 Average glucose Estimated from glycated hemoglobin (Bld) [Mass/Vol] 97 mg/dL Normal [facility] Comment on above: Order Comment: Vinita fierro Type: BLOOD SPECIMEN Ordering Facility: [facility] Address: [address] [place] [address] Result Comment: eAG: (Estimated average glucose) is a calculated value from HgbA1c and is hvac sales representative of the average blood glucose level in the last 2-3 month period. Performed By: #### 5 5454-3 #### [facility] CLIA [id number] [address] [place] [address] [place] HbA1c (Bld) [Mass fraction] 5.0 % Normal 4.3-5.6 [facility] Comment on above: Order Comment: Vinita fierro Type: BLOOD SPECIMEN Ordering Facility: [facility] Address: [address] [place] [address] Result Comment: Amer [place] Diabetes Association guidelines indicate that patients with HgbA1c in the range 5.7-6.4% are at increased risk for development of diabetes, and intervention by lifestyle modification may be beneficial. HgbA1c greater or equal to 6.5% is considered diagnostic of diabetes. Performed By: #### 5 5454-3 #### [facility] CLIA [id number] [address] [place] [address] [place] LIPID PANEL, NONFASTINGon Cholesterol [Mass/Vol] 185 mg/dL Normal <200 [facility] Comment on above: Order Comment: Vinita fierro Type: BLOOD SPECIMEN Ordering Facility: [facility] Address: [address] [place] [address] Result Comment: <200 mg/dL, Desirable 200-239 mg/dL, Borderline high >239 mg/dL, High Performed By: #### L IP, 2132-9 #### [facility] CLIA [id number] [address] [place] [address] [place] HDL CHOLESTEROL, NF 69 mg/dL Normal >39 [facility] Comment on above: Order Comment: Vinita fierro Type: BLOOD SPECIMEN Ordering Facility: [facility] Address: [address] [place] [address] Result Comment: 40-5 9 mg/dL, Acceptable >59 mg/dL, High: Negative risk factor for coronary heart disease <40 mg/dL, Low: Positive risk factor for coronary heart disease Performed By: #### L IPNF, 2132-03 #### [facility] CLIA [id number] [address] LDL CHOLESTEROL, NF 93 mg/dL Normal <100 [facility] Comment on above: Order Comment: Vinita fierro Type: BLOOD SPECIMEN Ordering Facility: [facility] Address: [address] [place] [address] Result Comment: <100 mg/dL, Optimal 100-129 mg/dL, Near optimal/above optimal 130-159 mg/dL, Borderline high 160-189 mg/dL, High >189 mg/dL, Very high Secondary prevention optimal LDL Cholesterol levels are recommended to be < 70 mg/dL Performed By: #### L IPNF, 2132-03 #### [facility] CLIA [id number] [address] LDL/HDL RATIO, NF 1.35 mg/dL Normal <2.54 [facility] Comment on above: Order Comment: Vinita fierro Type: BLOOD SPECIMEN Ordering Facility: [facility] Address: [address] [place] [address] Result Comment: James merida: 1. National Cholesterol Education Program ATP III Guideline At-A-Glance Quick Desk Reference: National Heart, Lung, and Blood [place]. National Institutes of Health. 2001: NIH Publication No. 01-3305. 2. An International Atherosclerosis Society position paper: global recommendations for the management of dyslipidemia: executive summary, Atherosclerosis. 2014: 232(2):410-413. Performed By: #### L IPNF, 2132-03 #### [facility] CLIA [id number] [address] OF [facility] NON HDL CHOL, NF 116 mg/dL Normal <130 [facility] Comment on above: Order Comment: Speci men Type: BLOOD SPECIMEN Ordering Facility: [facility] Address: [address] [place] [address] Result Comment: <130 mg/dL, Optimal 130-159 mg/dL, Near optimal/above optimal 160-189 mg/dL, Borderline high 190-219 mg/dL, High >219 mg/dL, Very high Secondary prevention optimal non HDL Cholesterol levels are recommended to be <100 mg/dL Performed By: #### L IPNF, 2132-03 #### [facility] CLIA [id number] [address] T CHOL/HDL RATIO NF 2.68 mg/dL Normal <5.10 [facility] Comment on above: Order Comment: Speci men Type: BLOOD SPECIMEN Ordering Facility: [facility] Address: [address] [place] [address] Performed By: #### L IPNF, 2132-03 #### [facility] CLIA [id number] [address] OF [facility] TRIGLYCERIDES, NF 116 mg/dL Normal <150 [facility] Comment on above: Order Comment: Speci men Type: BLOOD SPECIMEN Ordering Facility: [facility] Address: [address] [place] [address] Result Comment: <150 mg/dL, Normal 150-199 mg/dL, Borderline high 200-499 mg/dL, High >499 mg/dL, Very high Performed By: #### L IPNF, 2132-03 #### [facility] CLIA [id number] [address] [place] VLDL CHOLESTEROL, NF 23 mg/dL Normal <30 [facility] Comment on above: Order Comment: Speci men Type: BLOOD SPECIMEN Ordering Facility: [facility] Address: [address] [place] [address] Performed By: #### L IPNF, 2132-03 #### [facility] CLIA [id number] [address] [place] Magnesium SerPl-mCncon 03-07 -2025 Magnesium [Mass/Vol] 2.1 mg/dL Normal 1.7-2.3 [facility] Comment on above: Order Comment: Speci men Type: BLOOD SPECIMEN Ordering Facility: [facility] Address: [address] [place] [address] Performed By: #### L IPNF, 2132-03 #### [facility] CLIA [id number] [address] [place] Vit B12 SerPl-ncon 025 Cobalamin (Vitamin B12) [Mass/Vol] pg/mL Low 232-1245 [facility] Comment on above: Order Comment: Speci men Type: BLOOD SPECIMEN Ordering Facility: [facility] Address: [address] [place], [place] [address] Performed By: #### L IPNF, 2132-03 #### [employer] [facility] CLIA [id number] [address] [id number] 09-12-2024 [id number] HNO ID: [id number] Author: XANDER WU PT Service: ? Author Type: Physical Therapist Type: [id number] Filed: 09/12/2024 10:45 Note Text: [facility] Rehabilitation and Sports Therapy Physical Therapy Plan of Care Certification Patient Name: Nora Camarillo : 1950 [facility] #: [id number] Date: 08/14/2024 To: Rebekah Eduardo PA-C From [...] Goals for Episode of Care: established 08/14/24 [place] in home exercise program. Patient will decrease [...] Wants to be able to get around [facility] Time Frame for Goals and Treatment : 11/06/24 Planned Interventions, Frequency, and Duration: Current Frequency: 2x/week Duration: 4 weeks Total Number of Visits Planned: 8 Planned Treatment Interventions: Therapeutic exercise (92684), Manual therapy (43825), Neuromuscular re-education (35226), Therapeutic activities (99958), Self-halfway management (29936), Gait Training (48405), Patient/Family/Caregiver Education PLAN FOR NEXT VISIT: STS, [...] reviewed the treatment plan for Nora Camarillo, [facility]# [id number] for the period of 08/14/24 -- 09/18/24, established on 08/14/2024. Signature certifies the need for therapy services. Normal [facility] CNTHERAPYon 09-11-2024 CNTHERAPY OT/PT/Speech Visit ( PTWS) -- NORA CAMARILLO ([id number]) 1950 F Date Time Provider Department 09/11/24 10:45 AM XANDER WU PTWS Date Time Provider Department Center 09/11/2024 10:45 AM [id number], COREY PTWS Matti Catie Reason for Visit: [...] daily. to affected area as needed Normal [facility] CNTHERAPYon 09-08-2024 CNTHERAPY OT/PT/Speech Visit ( PTWS) -- NORA CAMARILLO ([id number]) 1950 F Date Time Provider Department 09/08/24 9:15 AM LISSA LIRA PTCARINA Date Time Provider Department Center 09/08/2024 9:15 AM [id number] LIRA PTCARINA Stewart Reason for Visit: Physical [...] daily. to affected area as needed Normal [facility] CNOVon 09-04-2024 CNOV Office Visit (ORTHWS ) -- NORA CAMARILLO ([id number]) 1950 F Date Time Provider Department 09/04/24 9:45 AM BRYSON DHILLON During your visit today, we recorded the following information about you: Bryson Dhillon MD 09/04/2024 12:29 PM Signed Bryson Dhillon MD Department of Orthopaedics Orthopaedics [address] [facility] [address] Dept: [phone] Dept September 04, 2024 CHIEF COMPLAINT: Established [...] Bryson Dhillon MD Referring Provider: BRYSON DHILLON [[id number]] Allergies As of Date: 09/04/2024 Noted Allergy [...] application to (more content not included)... Normal [facility] CNTHERAPYon 09-04-2024 CNTHERAPY OT/PT/Speech Visit ( PTWS) -- NORA CAMARILLO ([id number]) 1950 F Date Time Provider Department 09/04/24 10:45 AM XANDER WU PTWS Date Time Provider Department Center 09/04/2024 10:45 AM [id number], COREY PTWS Matti Stewart Reason for Visit: [...] daily. to affected area as needed Normal [facility] CNTHERAPYon 08-28-2024 CNTHERAPY OT/PT/Speech Visit ( PTWS) -- NORA CAMARILLO ([id number]) 1950 F Date Time Provider Department 08/28/24 3:30 PM LISSA LIRA PTWS Date Time Provider Department Center 08/28/2024 3:30 PM [id number] LIRA PTWS Matti Stewart Reason for Visit: [...] times daily. to affected area as needed Manager Aviation: Addendum Therapy (PT/OT/Speech/Resp) ID: [id number] 08/28/2024 3:59 PM Author: LISSA LIRA Signed by LISSA LIRA PT on 08/28/2024 at 3:59 PM * * * This document replaces document [id number] * * * Document text: Program_ID:[id number] Access Code: [email or web address] URL: [email or web address] Date: 08-28-2024 Prepared By: Lissa Lira Program [...] - 4 sets - 15 reps Normal [facility] THERAPY NTon 08-28-2024 THERAPY NT HNO ID: [id number] Author: LISSA LRIA, PT Service: ? Author Type: Physical Therapist Type: Therapy (PT/OT/Speech/Resp) Filed: 08/28/2024 15:59 Note Text: Program_ID:[id number] Access Code: [email or web address] URL: [email or web address] Date: 08-28-2024 Prepared By: Lissa Lira Program [...] - 4 sets - 15 reps Normal [facility] CNTHERAPYon 08-21-2024 CNTHERAPY OT/PT/Speech Visit ( PTWS) -- NORA CAMARILLO ([id number]) 1950 F Date Time Provider Department 08/21/24 3:30 PM LISSA LIRA Date Time Provider Department [place] 08/21/2024 3:30 PM [id number] LIRA Reason for Visit: Physical Therapy [503] [...] daily. to affected area as needed Normal [facility] 102on 08-14-2024 102 HNO ID: [id number] Author: RAFFI SIM HDA Service: ? Author Type: ? Type: 102 Filed: 08/14/2024 09:31 Note Text: Code Status: Full Code [facility] CNTHERAPYon 08-14-2024 CNTHERAPY OT/PT/Speech Visit ( PTWS) -- NORA CAMARILLO ([id number]) 1950 F Date Time Provider Department 08/14/24 10:00 AM XANDER WU PTWS Date Time Provider Department Center 08/14/2024 10:00 AM [id number], COREY PTWS Matti Catie Reason for Visit: PT Eval [747] Primary [...] daily. to affected area as needed Normal [facility] CNOVon 08-07-2024 CNOV Office Visit (RONN ) -- NORA CAMARILLO ([id number]) 1950 F Date Time Provider Department 08/07/24 [...] Provider: Bryson Dhillon [address] [facility] [address] PCP: Scot Blank MD == IMPRESSION/PLAN: == [...] pain and (more content not included)... Normal [facility] XR KNEE 3V AP/LAT/MERCHANT R Ton 08-07-2024 [...] subchondroplasty. IMPRESSION: Interval TKA without radiographic complication Handbag Framer: NANCY Transcribe Date/Time: Aug 09 2024 7:38A Dictated by : JAMILA HENNESSY MD This examination was interpreted and the report reviewed and electronically signed by: JAMILA HENNESSY MD on Aug 09 2024 7:40AM EST [id number] Normal [facility] CNPN Telephone (HCSIND) -- NORA CAMARILLO ([id number]) 1950 F [facility]* Date Time Provider Department 08/02/24 SALLIE HI HCSIND During your visit today, we recorded the following information about you: Sallie Hi, PROPERTY SITE MANAGER 08/02/2024 3:29 PM Signed Removed surgical bandage [...] obstruc*01/24/2007 07/22/2017 Routine general medical examination at [facility]*11/20/2009 12/22/2011 Class: Chronic Routine gynecological examination [Z01.419] [...] lateral abdominal (more content not included)... Normal [facility] CNCOon 07-28-2024 CNCO Letter Text Normal [facility] Basic metabolic 2000 panelon 07-27-2024 Anion gap [Moles/Vol] 10 mmol/L Normal 8-15 [facility] Comment on above: Order Comment: Speci men Type: BLOOD SPECIMENOrdering Facility: [facility] Address: [address] [place] [address] Performed By: #### 2 4321-2 ####[employer] LABORATORYCLIA [id number] [place] [address] [place] Calcium [Mass/Vol] 9.1 mg/dL Normal 8.5-10.2 [facility] Comment on above: Order Comment: Speci men Type: BLOOD SPECIMENOrdering Facility: [facility] Address: [address] [place] [address] Performed By: #### 2 4321-2 ####ZHANG LABORATORYCLIA [id number] [place] [address] [place] Chloride [Moles/Vol] 105 mmol/L Normal 98-107 [facility] Comment on above: Order Comment: Speci men Type: BLOOD SPECIMENOrdering Facility: [facility] Address: [address] [place] [address] Performed By: #### 2 4321-2 ####ZHANG LABORATORYCLIA [id number] [place] [address] [place] CO2 [Moles/Vol] 25 mmol/L Normal 22-30 [facility] Comment on above: Order Comment: Speci men Type: BLOOD SPECIMENOrdering Facility: [facility] Address: [address] [place] [address] Performed By: #### 2 4321-2 ####QUITMAN LABORATORYCLIA [id number] [place] [id number] [place] [facility] Creatinine [Mass/Vol] 0.64 mg/dL Normal 0.58-0.96 [facility] Comment on above: Order Comment: Vinita fierro Type: BLOOD SPECIMENOrdering Facility: [facility] Address: [address] [place] [address] Performed By: #### 2 4321-2 ####QUITMAN LABORATORYCLIA [id number] [place] [id number] [facility] Creatinine and Glomerular filtration rate.predicted panel (S/P/Bld) 93 mL/min/1.73m??? Normal >=60 [facility] Comment on above: Order Comment: Vinita fierro Type: BLOOD SPECIMENOrdering Facility: [facility] Address: [address] [place] [address] Result Comment: Brittani mated Glomerular Filtration Rate [...] Performed By: #### 2 4321-2 ####ZHANG LABORATORYCLIA [id number] [place] [address] [place] Glucose [Mass/Vol] 121 mg/dL High 74-99 [facility] Comment on above: Order Comment: Vinita fierro Type: BLOOD SPECIMENOrdering Facility: [facility] Address: [address] [place] [address] Result Comment: The [place] Diabetes Association (ADA) provides guidance for cutoff [...] Standards of Medical Care in Diabetes 2016, [place] Diabetes Association. Diabetes Care. 2016.39(Suppl 1). Performed By: #### 2 4321-2 ####ZHANG LABORATORYCLIA [id number] [address] Potassium [Moles/Vol] 4.4 mmol/L Normal 3.7-5.1 [facility] Comment on above: Order Comment: Vinita fierro Type: BLOOD SPECIMENOrdering Facility: [facility] Address: [address] [place] [address] Performed By: #### 2 4321-2 ####ZHANG LABORATORYCLIA [id number] [address] Sodium [Moles/Vol] 140 mmol/L Normal 136-144 [facility] Comment on above: Order Comment: Vinita fierro Type: BLOOD SPECIMENOrdering Facility: [facility] Address: [address] [place] [address] Performed By: #### 2 4321-2 ####ZHANG LABORATORYCLIA [id number] [address] [place] [facility] Urea nitrogen [Mass/Vol] 10 mg/dL Normal 7-21 [facility] Comment on above: Order Comment: Vinita fierro Type: BLOOD SPECIMENOrdering Facility: [facility] Address: [address] [place] [address] Performed By: #### 2 4321-2 ####ZHANG LABORATORYCLIA [id number] [address] OF [facility] CASE MANAGEMon 07-27-2024 CASE MANAGEM HNO ID: [id number] Author: FELIPA SAXENA RN Service: ? Author [...] Home Health Agency, Physical Therapy Provider Name: [facility] Caregiver Assessment Caregiver is ready, willing and able to meet the patient's needs as recommended by the inter-professional team: Yes Name of Caregiver: Transportation Arrangements Transportation Arrangements: Car- to transport Handoff Communication: Handoff to: Primary Care Physician Primary Care Physician Name/Phone: Dr. Scot Blank- [phone] Additional Information: Discharge order written for today. [facility] will be seeing the patient for Home PT with a start of care date within 24-48 hours. Notified [facility] of the patients discharge home today. Discharge Information Row Name Admission (Current) from 07/26/[address] Health Care Agency [facility] Start of Care -- Within 24-48 hours SIGNATURE: Felipa Saxena RN PATIENT NAME: Nora Camarillo DATE: July 27, 2024 TIME: 11:55 AM Normal [facility] CASE MGT INIT ASSon 2024 CASE MGT INIT [facility] HNO ID: [id number] Author: FELIPA SAXENA RN Service: ? Author Type: Registered Nurse Type: Care Mgt Initial Assessment Filed: 07/27/2024 10:36 Note Text: CARE MANAGEMENT: ASSESSMENT AND DISCHARGE PLAN SERVICE DATE: July 27, 2024 SERVICE TIME: 9:52 AM PCP: Scot Blank MD Primary Contact: Extended Emergency Contact Information Primary Emergency Contact: Mati Camarillo Address: [address] [place] [address] Relation: Spouse Secondary Emergency Contact: Giorgi Gary Mobile Relation: Daughter Admission Status: Extended Recovery Insurance Provider: MEDICARE A AND B Discharge Planning requested by: Per Department Practice Potential Transition Plans Home OT/PT Advance Directives Current Advance Directive: Living Will;Health Care Power of Tug Hand In Chart: Yes Up To Date and [...] Patient Goal(s): Be able to go home [place] Explained: [place] Given: Yes Level of Care [...] Prior to Discharge: Other: See Comment (Accepting [facility] agency) Post-Acute Discharge Plan: Review of the chart and met with the patient. The patient live with her an in ranch home. PT- Home PT.Discussed PT recommendations with the patient. Referral to [facility]. CM department will continue to follow for DC needs. 10:35 am- [facility] able to accept. SIGNATURE: Felipa Saxena RN PATIENT NAME: Nora Camarillo DATE: July 27, 2024 TIME: 9:52 AM Normal [facility] CBC panel Auto (Bld)on 07-27 Erythrocyte distribution width (RBC) [Ratio] 13.1 % Normal 11.5-15.0 [facility] Comment on above: Order Comment: Speci vadim Type: BLOOD SPECIMENOrdering Facility: [facility] Address: [address] [place] [address] Performed By: #### 5 8410-2 ####QUITMAN LABORATORYCLIA [id number] [place] [address] [place] Hematocrit (Bld) [Volume fraction] 36.1 % Normal 36.0-46.0 [facility] Comment on above: Order Comment: Vinita fierro Type: BLOOD SPECIMENOrdering Facility: [facility] Address: [address] [place] [address] Performed By: #### 5 8410-2 ####QUITMAN LABORATORYCLIA [id number] [place] [address] [place] Hemoglobin (Bld) [Mass/Vol] 12.0 g/dL Normal 11.5-15.5 [facility] Comment on above: Order Comment: Speci men Type: BLOOD SPECIMENOrdering Facility: [facility] Address: [address] [place] [address] Performed By: #### 5 8410-2 ####ZHANG LABORATORYCLIA [id number] [address] MCH (RBC) [Entitic mass] 30.8 pg Normal 26.0-34.0 [facility] Comment on above: Order Comment: Speci men Type: BLOOD SPECIMENOrdering Facility: [facility] Address: [address] [place] [address] Performed By: #### 5 8410-2 ####ZHANG LABORATORYCLIA [id number] [address] MCHC (RBC) [Mass/Vol] 33.2 g/dL Normal 30.5-36.0 [facility] Comment on above: Order Comment: Speci men Type: BLOOD SPECIMENOrdering Facility: [facility] Address: [address] [place] [address] Performed By: #### 5 8410-2 ####ZHANG LABORATORYCLIA [id number] [address] MCV (RBC) [Entitic vol] 92.6 fL Normal 80.0-100.0 [facility] Comment on above: Order Comment: Speci men Type: BLOOD SPECIMENOrdering Facility: [facility] Address: [address] [place] [address] Performed By: #### 5 8410-2 ####ZHANG LABORATORYCLIA [id number] [address] Nucleated RBC (Bld) [#/Vol] 10*3/uL Normal <0.01 [facility] Comment on above: Order Comment: Speci men Type: BLOOD SPECIMENOrdering Facility: [facility] Address: [address] [place] [address] Performed By: #### 5 8410-2 ####ZHANG LABORATORYCLIA [id number] [place] [address] [place] Platelet mean volume (Bld) [Entitic vol] 10.3 fL Normal 9.0-12.7 [facility] Comment on above: Order Comment: Speci men Type: BLOOD SPECIMENOrdering Facility: [facility] Address: [address] [place] [address] Performed By: #### 5 8410-2 ####QUITMAN LABORATORYCLIA [id number] [place] [address] [place] Platelets (Bld) [#/Vol] 277 10*3/uL Normal 150-400 [facility] Comment on above: Order Comment: Speci men Type: BLOOD SPECIMENOrdering Facility: [facility] Address: [address] [place] [address] Performed By: #### 5 8410-2 ####QUITMAN LABORATORYCLIA [id number] [place] [address] [place] RBC (Bld) [#/Vol] 3.90 10*6/uL Normal 3.90-5.20 [facility] Comment on above: Order Comment: Speci men Type: BLOOD SPECIMENOrdering Facility: [facility] Address: [address] [place] [address] Performed By: #### 5 8410-2 ####QUITMAN LABORATORYCLIA [id number] [place] [address] [place] WBC (Bld) [#/Vol] 10.14 10*3/uL Normal 3.70-11.00 [facility] Comment on above: Order Comment: Speci men Type: BLOOD SPECIMENOrdering Facility: [facility] Address: [address] [place] [address] Performed By: #### 5 8410-2 ####QUITMAN LABORATORYCLIA [id number] [place] [id number] [facility] [place] CNCOon 07-27-2024 CNCO Letter Text Normal [facility] CNDSon 07-27-2024 CNDS HNO ID: [id number] Author: GINA SAMAYOA PA-C Service: Orthopaedic Surgery Author Type: Physician Zanjero Type: Discharge Summary Filed: 07/27/2024 11:31 Note [...] These instructions explain what you or your critical care nurse need to do to continue your care at home or at another healthcare facility Please go over these instructions with your nurse and critical care nurse. If you are not sure about something, [...] for wound inf (more content not included)... [facility] 07-27-2024 [facility] Telephone (HCSIND) -- NORA CAMARILLO ([id number]) 1950 [address]* Date Time Provider Department 07/27/24 [facility] During your visit today, we recorded the following information about you: Dawn Vincent PSS 07/27/2024 12:17 PM Signed Date/Time: 07/27/2024 12:13 PM Spoke with Mati Camarillo (Spouse) @ phone #: [phone] - Preferred # for contact: [phone] Have you received help from a home care company in the last 60 days? no Are you agreeable to [facility] services? yes What address will we be seeing you at? [address] [place] [address] Do you have any upcoming appointments or [...] 07/22/2017 [facility] (more content not included)... Normal [facility] THERAPY NTon 07-27-2024 THERAPY NT HNO ID: [id number] Author: ISAIAH BEDOLLA OTR/Bandar Service: Occupational Therapy Author Type: Occupational Therapist Type: Therapy (PT/OT/Speech/Resp) Filed: 07/27/2024 13:45 Note Text: -- Summary: OT evaluation -- Occupational Therapy Evaluation Summary SERVICE DATE: 07/27/2024 SERVICE TIME: 1110 to 1153 ROOM: [id number]-2M-1384-1 OT 6 Clicks Score: 20 Total Joint [...] living (ADL) TREATMENT INTERVENTIONS Evaluation, Therapeutic Activity (88751), Self Long-Term Management (98331) Timed Code Treatment (minutes): 25 Skilled Treatment [...] Safety/Judgment, Toileting , Standing Balance to Improve [place] with ADLs/Self-Care, Transfer - Sit to Stand, [...] assistance. Progress Towar (more content not included)... [facility] THERAPY NT HNO ID: [id number] Author: CARLOS ESPINO PTA Service: Physical Therapy Author Type: Jira Developer Type: Therapy (PT/OT/Speech/Resp) Filed: 07/27/2024 11:05 Note Text: -- Attestation signed by Rosaura Haro, SE at 07/27/2024 5:38 PM I reviewed and agree with the documentation corresponding to this therapy visit. SIGNATURE: Rosaura Haro PT DATE: July 27, 2024 TIME: 5:38 PM -- -- Summary: PT Treat -- Physical Therapy Treatment Summary SERVICE DATE: 07/27/2024 SERVICE TIME: 1022 to 1047 ROOM: [id number]-3D-4443-1 PT 6 Clicks Score: 20 Total Joint [...] gait and mobility-other TREATMENT INTERVENTIONS Therapeutic Activity (05510), Gait Training (84856) Timed Code Treatment (minutes): 25 Skilled Treatment Time (minutes): 25 Therapeutic Activity (69336) Treatment Minutes: 15 $ Therapeutic Activity (71491) Billed Units: 1 unit Gait Training (23186) Treatment Minutes: 10 $ Gait Training (78950) Billed Units: 1 unit TRAINING AND EDUCATION [...] resolve all fu (more content not included)... [facility] ANES POSTPROC EVALon 025 ANES POSTPROC EVAL HNO ID: [id number] Author: FÁTIMA BOOTHE MD Service: ? Author Type: Anesthesiologist Type: Anesthesia Postprocedure Evaluation Filed: 07/26/2024 14:07 Note Text: POST ANESTHESIA EVALUATION NOTE : 1950 Procedure Summary Date: 07/26/24 Room / Location: [place] [address] / [place] Anesthesia Start: 08 Anesthesia Stop: 1101 [...] July 26, 2024 TIME: 2:05 PM CSN: [id number] [facility] ANES PRE-OPon 07-26-2024 ANES PRE-OP HNO ID: [id number] Author: FÁTIMA BOOTHE MD Service: ? Author Type: Anesthesiologist Type: Anesthesia Preprocedure Evaluation Filed: 07/26/2024 08:08 Note Text: ANESTHESIOLOGY DAY OF SURGERY NOTE : 1950 Procedure Information Date/Time: 07/26/24829 Procedure: ROBOTIC ASSISTED TOTAL KNEE ARTHROPLASTY (Right: Knee) Location: [place] [address] / [place] Surgeons: Bryson Dhillon MD Estimated body [...] and consent discussed: yes. Patient / Responsible Republican agrees to proceed: yes Patient / Surrogate [...] July 26, 2024 TIME: 8:07 AM CSN: [id number] Normal [facility] CONSULTon 07-26-2024 CONSULT HNO ID: [id number] Author: MARINO LU MD Service: General Internal Medicine Author Type: Physician Type: Consults Filed: 08/07/2024 21:41 Note Text: [facility]- Consultation NORA CAMARILLO : 1950 AGE: 74 SEX: F ACCTNUM: [id number] [facility] SVC: Surgical LOCATION: [facility] ATTENDING PHYSICIAN: BRYSON DHILLON DATE OF SERVICE: [...] multiple medications. Her list reviewed in the [facility]. REVIEW OF SYSTEMS: HEENT/Neck: She has [...] the hospital. Marino Lu M.D. Internal Medicine SKJ:[id number] [facility] NURSING PROGon 07-26-2024 NURSING PROG HNO ID: [id number] Author: ANDRIA ARCE RN Service: Nursing Author Type: Registered Nurse Type: Nursing Progress Note Filed: 07/26/2024 08:41 Note Text: Dr. Boothe at bedside for Right adductor nerve block. RN at bedside, pt monitored throughout, BP 157/70 Pulse 69 Temp 36 ?C (96.8 ?F) (Temporal Artery) Resp 19 SpO2 98% .Pt tolerated procedure without difficulty. 2mg Versed given after sign in. [facility] OPERATIVE NOon 07-26-2024 OPERATIVE NO HNO ID: [id number] Author: BRYSON DHILLON MD Service: Orthopaedic Surgery Author Type: Physician Type: Operative Report Filed: 07/26/2024 11:11 Note Text: Operative Report PATIENT NAME: Nora Camarillo CSN: [id number] LOG ID: [id number] Surgery Date: 07/26/2024 Surgeon(s) and Zanjero(s): BRANDON Vargas - [employer] Operator Surgeons and Role: * Bryson Dhillon MD [...] performed all critical portions of the case. railways assistant was necessary for safe patient positioning, [...] Implant Name Type Inv. Item Serial No. Steel Crane Operator Lot No. LRB No. Used Action CEMENT SIMPLEX P BONE RADIOPAQUE FULL DOSE STERILE - [id number] Cement / Putty CEMENT SIMPLEX P BONE RADIOPAQUE FULL DOSE STERILE [facility] [id number] Right 1 Implanted CEMENT SIMPLEX P BONE RADIOPAQUE FULL DOSE STERILE - [id number] Cement / Putty CEMENT SIMPLEX P BONE RADIOPAQUE FULL DOSE STERILE [facility] [id number] Right 1 Implanted COMPONENT TRIATHLON 3 FEMORAL CRUCIATE RETAIN CEMENTED KNEE RIGHT - [id number] Joint - Knee COMPONENT TRIATHLON 3 FEMORAL CRUCIATE RETAIN CEMENTED KNEE RIGHT [facility] [id number] Right 1 Implanted INSERT TRIATHLON 3 9MM TIBIAL BEARING CONDYLAR STABILIZE STERILE KNEE - [id number] Joint - Knee INSERT TRIATHLON 3 9MM TIBIAL BEARING CONDYLAR STABILIZE STERILE KNEE STRY-[facility] [facility] [id number] Right 1 Implanted BASEPLATE TRIATHLON 3 UNIVERSAL COCR TIBIAL TOTAL STABILIZE CEMENTED KNEE - [id number] Plate BASEPLATE TRIATHLON 3 UNIVERSAL COCR TIBIAL TOTAL STABILIZE CEMENTED KNEE [facility] [id number] Right 1 Implanted COMPONENT TRIATHLON 29MM X3 9MM PATELLAR ASYMMETRIC KNEE - [id number] Joint - Patella COMPONENT TRIATHLON 29MM X3 9MM PATELLAR ASYMMETRIC KNEE [facility] [id number] Right 1 Implanted TRIATHLON CEMENTED [id number] X 50MM - [id number] Joint TRIATHLON CEMENTED [id number] X 50MM ADOLFO [id number] Right 1 Implanted Problem List: ACTIVE PROBLEM [...] optimization, and risk (more content not included)... [facility] THERAPY [facility] 07-26-2024 THERAPY HNO ID: [id number] Author: CLAUDIA GONZALEZ, PT, DPT Service: Physical Therapy Author Type: Physical Therapist Type: Therapy (PT/OT/Speech/Resp) Filed: 07/26/2024 17:09 Note Text: -- Summary: PT evaluation -- Physical Therapy Evaluation Summary SERVICE DATE: 07/26/2024 SERVICE TIME: 1606 to 1659 ROOM: [id number] PT 6 Clicks Score: 17 Total Joint [...] and mobility-other TREATMENT INTERVENTIONS Evaluation, Therapeutic Exercise (93290), Therapeutic Activity (34440), Gait Training (08814) Timed Code Treatment (minutes): 38 Skilled Treatment Time (minutes): 38 $ Evaluation-Low (47476) Billed Units: 1 unit Therapeutic Exercise (26535) Treatment Minutes: 8 $ Therapeutic Exercise (61109) Billed Units: 1 unit Exercise Anti-Embolics (number of reps): 10 Exercise: gave reasons for performance of these ex and cues to remain on task Therapeutic Activity (54437) Treatment Minutes: 25 $ Therapeutic Activity (84484) Billed Units: 2 units Gait Training (99725) Treatment Minutes: 5 $ Gait Training (54435) Billed Units: 0 units TRAINING AND EDUCATION [...] with: Supervision Ambulate (more content not included)... [facility] NORA CAMARILLO ([id number]) 1950 [address] [place] Date Time Provider [...] obstruc*01/24/2007 07/22/2017 Routine general medical examination at [facility]*11/20/2009 12/22/2011 Class: Chronic Routine gynecological examination [Z01.419] [...] hip giancarlo (more content not included)... Normal [facility] CARDIAC PERF STRESS/PHARM on 07-07-2024 NM CARDIAC PERF STRESS/PHARM * * *Final Report* * * DATE OF EXAM: Jul 07 2024 2:46PM AMINTA 0006 - NM CARDIAC PERF STRESS/PHARM / PROCEDURE REASON: R94.31-Abnormal electrocardiogram * * * * Physician Interpretation * * * * Stress Winderman Report: [facility] Date of service: 07/07/2024 12:52:17 PM Supervising [...] later. See administered radiotracer and doses below. [facility] Date of service: 07/07/2024 12:52:17 PM Ordering [...] Final * * * Stress ECG Report: [facility] Date of service: 07/07/2024 12:52:17 PM Ordering physician: YARI RINCON member service specialist: Jenifer Paz Zanjero: Marissa Coelho Interpreting physician: Lanre Landa MD [...] 150/64 mmHg. The double product achieved was [address]. Medications: Last Used ALBUTEROL INHALER AMBIEN SINGULAIR [...] LELAND +------+ +--+---+ (more content not included)... [facility] Heart Perfusion W stress and W radionuclide Johnathon 07-07-2024 * * *Final Report* * * DATE OF EXAM: Jul 07 2024 2:46PM AMINTA 0006 - ANUJ CARDIAC PERF STRESS/PHARM / PROCEDURE REASON: R94.31-Abnormal electrocardiogram * * * * Physician Interpretation * * * * Stress Winderman Report: [facility] Date of service: 07/07/2024 12:52:17 PM Supervising [...] later. See administered radiotracer and doses below. [facility] Date of service: 07/07/2024 12:52:17 PM Ordering [...] Final * * * Stress ECG Report: [facility] Date of service: 07/07/2024 12:52:17 PM Ordering physician: YARI RINCON member service specialist: Jenifer Paz Zanjero: Marissa Coelho Interpreting physician: Lanre Landa MD [...] 150/64 mmHg. The double product achieved was 04612. Medications: Last Used ALBUTEROL INHALER AMBIEN SINGULAIR PANTOPRAZOLE Resting ECG: Sinus Bradycardia and LBBB Symptoms at rest: No symptoms Pharamcologic Protocol: Regadenoson Stress Exercise Table (more content not included)... [facility] Provider, Raffi Terry [facility] - 07/07/2024 * * *Final Report* * * DATE OF EXAM: Jul 07 2024 2:46PM AMINTA 0006 - NM CARDIAC PERF STRESS/PHARM / PROCEDURE REASON: R94.31-Abnormal electrocardiogram * * * * Physician Interpretation * * * * Stress Winderman Report: [facility] Date of service: 07/07/2024 12:52:17 PM Supervising [...] later. See administered radiotracer and doses below. [facility] Date of service: 07/07/2024 12:52:17 PM Ordering [...] Final * * * Stress ECG Report: [facility] Date of service: 07/07/2024 12:52:17 PM Ordering physician: YARI RINCON member service specialist: Jenifer Paz Zanjero: Marissa Coelho Interpreting physician: Lanre Landa MD [...] 150/64 mmHg. The double product achieved was 36629. Medications: Last Used ALBUTEROL INHALER AMBIEN SINGULAIR PANTOPRAZOLE Resting ECG: Sinus Bradycardia and LBBB Symptoms at rest: No symptoms Pharamcologic Protocol: Regadenoson Stress Exercise Table: +-----+--+---+---+ Stage HR SYS LELAND +-----+--+---+---+ 1 85 +-----+--+---+---+ 2 88 150 64 +-----+--+---+---+ 3 78 +-----+--+---+---+ 4 80 150 67 +-----+--+---+---+ +-----+--+---+---+ HR SYS LELAND +-----+--+ (more content not included)... [facility] Radiology Study observation (narrative) [facility] NM Heart Perfusion W stress and W radionuclide IVOrdered By: Ccf Provider on 07-07-2024 [facility] Jimbo 07-06-2024 [facility] Telephone (CDLBME) -- NORA CAMARILLO ([id number]) 1950 F [place] [address]* Date Time Provider [...] Date Reviewed: 07/03/2024 Reviewed by: Yari Rincon APRN.MEDICAL ENGINEER - Fully Assessed Reason for Visit: Reminder Call [[id number]] Prescriptions as of 07/06/2024 - mupirocin (BACTROBAN) [...] 07/22/2017 Routine general medical examination at a [facility]*11/20/2009 12/22/2011 Class: Chronic Routine gynecological examination [Z01.419] [...] of ri (more content not included)... Normal [facility] CBC W Auto Differential pane l (Bld)on 06-30-2024 Basophils (Bld) [#/Vol] 0.05 10*3/uL [facility] Basophils/100 WBC (Bld) 0.9 % [facility] Differential cell count method Nom (Bld) Auto [facility] Eosinophils (Bld) [#/Vol] 0.41 10*3/uL [facility] Eosinophils/100 WBC (Bld) 7.0 % [facility] Erythrocyte distribution width (RBC) [Ratio] 12.8 % 11.5 - 15.0 % [facility] Hematocrit (Bld) [Volume fraction] 44.8 % 36.0 - 46.0 % [facility] Hemoglobin (Bld) [Mass/Vol] 15.0 g/dL 11.5 - 15.5 g/dL [facility] Immature granulocytes (Bld) [#/Vol] [facility] Immature granulocytes/100 WBC (Bld) 0.2 % [facility] Lymphocytes (Bld) [#/Vol] 2.50 10*3/uL [facility] Lymphocytes/100 WBC (Bld) 42.8 % [facility] MCH (RBC) [Entitic mass] 31.3 pg 26.0 - 34.0 pg [facility] MCHC (RBC) [Mass/Vol] 33.5 g/dL 30.5 - 36.0 g/dL [facility] MCV (RBC) [Entitic vol] 93.3 fL 80.0 - 100.0 fL [facility] Monocytes (Bld) [#/Vol] 0.82 10*3/uL [facility] Monocytes/100 WBC (Bld) 14.0 % [facility] Neutrophils (Bld) [#/Vol] 2.05 10*3/uL [facility] Neutrophils/100 WBC (Bld) 35.1 % [facility] Nucleated RBC (Bld) [#/Vol] [facility] Nucleated RBC/100 WBC (Bld) [Ratio] 0.0 % /100 WBC [facility] Platelet mean volume (Bld) [Entitic vol] 10.4 fL 9.0 - 12.7 fL [facility] Platelets (Bld) [#/Vol] 335 10*3/uL [facility] RBC (Bld) [#/Vol] 4.80 10*6/uL 3.90 - 5.2 0 m/uL [facility] WBC (Bld) [#/Vol] 5.84 10*3/uL [facility] Basophils (Bld) [#/Vol] 0.05 10*3/uL Normal <0.11 [facility] Comment on above: Order Comment: Speci men Type: BLOOD SPECIMENOrdering Facility: [facility] Address: [address] [place] [address] Performed By: #### 5 7021-8 ####[facility] [id number] [place] [address] [place] Basophils/100 WBC (Bld) 0.9 % Normal [facility] Comment on above: Order Comment: Speci men Type: BLOOD SPECIMENOrdering Facility: [facility] Address: [address] [place] [address] Performed By: #### 5 7021-8 ####[facility] [id number] [place] [address] [place] Differential cell count method Nom (Bld) Auto Normal [facility] Comment on above: Order Comment: Speci men Type: BLOOD SPECIMENOrdering Facility: [facility] Address: [address] [place] [address] Performed By: #### 5 7021-8 ####[facility] [id number] [place] [address] [place] Eosinophils (Bld) [#/Vol] 0.41 10*3/uL Normal <0.46 [facility] Comment on above: Order Comment: Speci men Type: BLOOD SPECIMENOrdering Facility: [facility] Address: [address] [place] [address] Performed By: #### 5 7021-8 ####[facility] [id number] [place] [address] [place] Eosinophils/100 WBC (Bld) 7.0 % Normal [facility] Comment on above: Order Comment: Speci men Type: BLOOD SPECIMENOrdering Facility: [facility] Address: [address] [place] [address] Performed By: #### 5 7021-8 ####[facility] [id number] [place] [address] [place] Erythrocyte distribution width (RBC) [Ratio] 12.8 % Normal 11.5-15.0 [facility] Comment on above: Order Comment: Speci men Type: BLOOD SPECIMENOrdering Facility: [facility] Address: [address] [place] [address] Performed By: #### 5 7021-8 ####[facility] [id number] [place] [address] [place] Hematocrit (Bld) [Volume fraction] 44.8 % Normal 36.0-46.0 [facility] Comment on above: Order Comment: Speci men Type: BLOOD SPECIMENOrdering Facility: [facility] Address: [address] [place] [address] Performed By: #### 5 7021-8 ####[facility] [id number] [place] [address] [place] Hemoglobin (Bld) [Mass/Vol] 15.0 g/dL Normal 11.5-15.5 [facility] Comment on above: Order Comment: Speci men Type: BLOOD SPECIMENOrdering Facility: [facility] Address: [address] [place], [place] [address] Performed By: #### 5 7021-8 ####[facility] [id number] [place] [address] [place] Immature granulocytes (Bld) [#/Vol] 10*3/uL Normal <0.10 [facility] Comment on above: Order Comment: Speci men Type: BLOOD SPECIMENOrdering Facility: [facility] Address: [address] [place] [address] Performed By: #### 5 7021-8 ####[facility] CATIEWNCLIA [id number] [address] [facility] Immature granulocytes/100 WBC (Bld) 0.2 % Normal [facility] Comment on above: Order Comment: Speci men Type: BLOOD SPECIMENOrdering Facility: [facility] Address: [address] [place] [address] Performed By: #### 5 7021-8 ####[facility]CL[facility] [id number] [place] [address] [place] Lymphocytes (Bld) [#/Vol] 2.50 10*3/uL Normal 1.00-4.00 [facility] Comment on above: Order Comment: Speci men Type: BLOOD SPECIMENOrdering Facility: [facility] Address: [address] [place] [address] Performed By: #### 5 7021-8 ####[facility]CL[facility] [id number] [address] [place] Lymphocytes/100 WBC (Bld) 42.8 % Normal [facility] Comment on above: Order Comment: Speci men Type: BLOOD SPECIMENOrdering Facility: [facility] Address: [address] [place] [address] Performed By: #### 5 7021-8 ####[facility] [id number] [place] [address] [place] MCH (RBC) [Entitic mass] 31.3 pg Normal 26.0-34.0 [facility] Comment on above: Order Comment: Speci men Type: BLOOD SPECIMENOrdering Facility: [facility] Address: [address] [place] [address] Performed By: #### 5 7021-8 ####[facility] [id number] [place] [address] [place] MCHC (RBC) [Mass/Vol] 33.5 g/dL Normal 30.5-36.0 [facility] Comment on above: Order Comment: Speci men Type: BLOOD SPECIMENOrdering Facility: [facility] Address: [address] [place] [address] Performed By: #### 5 7021-8 ####[facility] [id number] [place] [address] [place] MCV (RBC) [Entitic vol] 93.3 fL Normal 80.0-100.0 [facility] Comment on above: Order Comment: Speci men Type: BLOOD SPECIMENOrdering Facility: [facility] Address: [address] [place] [address] Performed By: #### 5 7021-8 ####[facility] [id number] [place] [address] [place] Monocytes (Bld) [#/Vol] 0.82 10*3/uL Normal <0.87 [facility] Comment on above: Order Comment: Speci men Type: BLOOD SPECIMENOrdering Facility: [facility] Address: [address] [place] [address] Performed By: #### 5 7021-8 ####[facility] [id number] [place] [address] [place] Monocytes/100 WBC (Bld) 14.0 % Normal [facility] Comment on above: Order Comment: Speci men Type: BLOOD SPECIMENOrdering Facility: [facility] Address: [address] [place] [address] Performed By: #### 5 7021-8 ####[facility] SYSTEMNCLIA [id number] [place] [address] [place] Neutrophils (Bld) [#/Vol] 2.05 10*3/uL Normal 1.45-7.50 [facility] Comment on above: Order Comment: Speci men Type: BLOOD SPECIMENOrdering Facility: [facility] Address: [address] [place] [address] Performed By: #### 5 7021-8 ####[facility] [id number] [place] [address] [place] Neutrophils/100 WBC (Bld) 35.1 % Normal [facility] Comment on above: Order Comment: Speci men Type: BLOOD SPECIMENOrdering Facility: [facility] Address: [address] [place] [address] Performed By: #### 5 7021-8 ####[facility] [id number] [place] [address] [place] Nucleated RBC (Bld) [#/Vol] 10*3/uL Normal <0.01 [facility] Comment on above: Order Comment: Speci men Type: BLOOD SPECIMENOrdering Facility: [facility] Address: [address] [place] [address] Performed By: #### 5 7021-8 ####[facility] [id number] [place] [address] [place] Nucleated RBC/100 WBC (Bld) [Ratio] 0.0 /100 WBC Normal [facility] Comment on above: Order Comment: Speci men Type: BLOOD SPECIMENOrdering Facility: [facility] Address: [address] [place] [address] Performed By: #### 5 7021-8 ####[facility] [id number] [place] [address] [place] Platelet mean volume (Bld) [Entitic vol] 10.4 fL Normal 9.0-12.7 [facility] Comment on above: Order Comment: Speci men Type: BLOOD SPECIMENOrdering Facility: [facility] Address: [address] [place] [address] Performed By: #### 5 7021-8 ####[facility] YUDITHNCLIA [id number] [place] [address] [place] Platelets (Bld) [#/Vol] 335 10*3/uL Normal 150-400 [facility] Comment on above: Order Comment: Speci men Type: BLOOD SPECIMENOrdering Facility: [facility] Address: [address] [place] [address] Performed By: #### 5 7021-8 ####[facility] CATIESOUTH ORANGENCLIA [id number] [place] [address] [place] RBC (Bld) [#/Vol] 4.80 10*6/uL Normal 3.90-5.20 [facility] Comment on above: Order Comment: Speci men Type: BLOOD SPECIMENOrdering Facility: [facility] Address: [address] [place] [address] Performed By: #### 5 7021-8 ####[facility] SYSTEMNCL[facility] [id number] [place] [address] [place] WBC (Bld) [#/Vol] 5.84 10*3/uL Normal 3.70-11.00 [facility] Comment on above: Order Comment: Speci men Type: BLOOD SPECIMENOrdering Facility: [facility] Address: [address] [place] [address] Performed By: #### 5 7021-8 ####[facility] SYSTEMNCLIA [id number] [address] [place] Comprehensive metabolic 2000 panelOrdered By: Marissa Martinez on 06-30-2024 Albumin [Mass/Vol] 4.6 g/dL 3.9 - 4.9 g/dL [facility] ALP [Catalytic activity/Vol] 98 U/L 34 - 123 U/L [facility] ALT [Catalytic activity/Vol] 17 U/L 7 - 38 U/L [facility] Anion gap [Moles/Vol] 12 mmol/L 8 - 15 mmol/L [facility] AST [Catalytic activity/Vol] 19 U/L 13 - 35 U/L [facility] Bilirubin [Mass/Vol] 0.6 mg/dL 0.2 - 1 .3 mg/dL [facility] Calcium [Mass/Vol] 9.7 mg/dL 8.5 - 10. 2 mg/dL [facility] Chloride [Moles/Vol] 100 mmol/L 98 - 10 7 mmol/L [facility] CO2 [Moles/Vol] 26 mmol/L 22 - 30 mmol/L [facility] Creatinine [Mass/Vol] 0.68 mg/dL 0.58 - 0.96 mg/dL [facility] GFR/1.73 sq M.predicted among non-blacks MDRD (S/P/Bld) [Vol rate/Area] 92 mL/min/{1.73_m2} - PINF [facility] Comment on above: Estimated Glomerular Filtration [...] 123 mg/dL High 74 - 99 mg/dL [facility] Comment on above: The [place] Diabete s Association (ADA) provides guidance for [...] Standards of Medical Care in Diabetes 2016, [place] Diabetes Association. Diabetes Care. 2016.39(Suppl 1). Interpretation and review of laboratory results Abnormal [facility] Potassium [Moles/Vol] 4.5 mmol/L 3.7 - 5.1 mmol/L [facility] Protein [Mass/Vol] 7.6 g/dL 6.3 - 8.0 g/dL [facility] Sodium [Moles/Vol] 138 mmol/L 136 - 144 mmol/L [facility] Urea nitrogen [Mass/Vol] 15 mg/dL 7 - 21 mg/dL [facility] Comprehensive metabolic 2000 panelon 06-30-2024 Albumin [Mass/Vol] 4.6 g/dL Normal 3.9-4.9 [facility] Comment on above: Order Comment: Speci men Type: BLOOD SPECIMEN [facility] Address: [address] [place] [address] Performed By: #### 2 4323-8 #### [facility] CLIA [id number] [address] [place] [address] [place] ALP [Catalytic activity/Vol] 98 U/L Normal 34-123 [facility] Comment on above: Order Comment: Speci men Type: BLOOD SPECIMEN [facility] Address: [address] [place] [id number] Performed By: #### 2 4323-8 #### [facility] CLIA [id number] [address] [place] [address] [place] ALT [Catalytic activity/Vol] 17 U/L Normal 7-38 [facility] Comment on above: Order Comment: Speci men Type: BLOOD SPECIMEN [facility] Address: [address] [place] [address] Performed By: #### 2 4323-8 #### [facility] MILLW CLIA [id number] [address] [place] [address] [place] Anion gap [Moles/Vol] 12 mmol/L Normal 8-15 [facility] Comment on above: Order Comment: Speci men Type: BLOOD SPECIMEN [facility] Address: [address] [place] [address] Performed By: #### 2 4323-8 #### [facility] CLIA [id number] [address] [place] [address] [place] AST [Catalytic activity/Vol] 19 U/L Normal 13-35 [facility] Comment on above: Order Comment: Speci men Type: BLOOD SPECIMEN [facility] Address: [address] [place] [address] Performed By: #### 2 4323-8 #### [facility] CLIA [id number] [address] [place] [address] [place] Bilirubin [Mass/Vol] 0.6 mg/dL Normal 0.2-1.3 [facility] Comment on above: Order Comment: Speci men Type: BLOOD SPECIMEN [facility] Address: [address] [place] [address] Performed By: #### 2 4323-8 #### [facility] CLIA [id number] [address] [place] [address] [place] Calcium [Mass/Vol] 9.7 mg/dL Normal 8.5-10.2 [facility] Comment on above: Order Comment: Speci men Type: BLOOD SPECIMEN [facility] Address: [address] [place] [address] Performed By: #### 2 4323-8 #### [facility] CLIA [id number] [address] [place] [address] [place] Chloride [Moles/Vol] 100 mmol/L Normal 98-107 [facility] Comment on above: Order Comment: Speci men Type: BLOOD SPECIMEN [facility] Address: [address] [place] [address] Performed By: #### 2 4323-8 #### [facility] CLIA [id number] [address] [place] [address] [place] CO2 [Moles/Vol] 26 mmol/L Normal 22-30 [facility] Comment on above: Order Comment: Speci men Type: BLOOD SPECIMEN [facility] Address: [address] [place] [address] Performed By: #### 2 4323-8 #### [facility] [id number] [address] [place] [address] [place] Creatinine [Mass/Vol] 0.68 mg/dL Normal 0.58-0.96 [facility] Comment on above: Order Comment: [place] men Type: BLOOD SPECIMEN [facility] Address: [address] [place] [address] Performed By: #### 2 4323-8 #### [facility] [id number] [address] [place] [address] [place] Creatinine and Glomerular filtration rate.predicted panel (S/P/Bld) 92 mL/min/1.73m??? Normal >=60 [facility] Comment on above: Order Comment: [place] men Type: BLOOD SPECIMEN [facility] Address: [address] [place] [address] Result Comment: Brittani mated Glomerular Filtration Rate [...] GFR. Performed By: #### 2 4323-8 #### [facility] CLIA [id number] [address] [place] [address] [place] Glucose [Mass/Vol] 123 mg/dL High 74-99 [facility] Comment on above: Order Comment: [place] vadim Type: BLOOD SPECIMEN [facility] [facility] Address: [address] [place] [address] Result Comment: The [place] Diabetes Association (ADA) provides guidance for cutoff [...] Standards of Medical Care in Diabetes 2016, [place] Diabetes Association. Diabetes Care. 2016.39(Suppl 1). Performed By: #### 2 4323-8 #### [facility] CLIA [id number] [address] [place] [address] [place] Potassium [Moles/Vol] 4.5 mmol/L Normal 3.7-5.1 [facility] Comment on above: Order Comment: Speci men Type: BLOOD SPECIMEN Ordering Facility: [facility] Address: [address] [place] [address] Performed By: #### 2 4323-8 #### [id number] [address] [place] [address] [place] Protein [Mass/Vol] 7.6 g/dL Normal 6.3-8.0 [facility] Comment on above: Order Comment: Jessicai vadim Type: BLOOD SPECIMEN Ordering Facility: [facility] Address: [address] [place] [address] Performed By: #### 2 4323-8 #### [facility] CLIA [id number] [address] [place] [address] [place] Sodium [Moles/Vol] 138 mmol/L Normal 136-144 [facility] Comment on above: Order Comment: Speci men Type: BLOOD SPECIMEN Ordering Facility: [facility] Address: [address] [id number] Performed By: #### 2 4323-8 #### [facility] CLIA [id number] [address] Urea nitrogen [Mass/Vol] 15 mg/dL Normal 7-21 [facility] Comment on above: Order Comment: Speci men Type: BLOOD SPECIMEN Ordering Facility: [facility] Address: [address] [id number] Performed By: #### 2 4323-8 #### [facility] CLIA [id number] [address] [id number] 06-30-2024 ECG01 Ventricular Rate : 6 3 BPM Atrial Rate : 63 BPM P-R Interval : 164 ms QRS Duration : 134 ms Q-T Interval : 468 ms QTC Calculation(Bazett) : 478 ms Calculated P [place] : 74 degrees Calculated R [place] : -26 degrees Calculated T [place] : 82 degrees NORMAL SINUS RHYTHM COMPLETE LEFT BUNDLE BRANCH BLOCK BASELINE ARTIFACT Confirmed by MD TAYLOR QARAB ([id number]) on 07/11/2024 3:30:09 PM NAME : NORA CAMARILLO PID : [id number] : 1950 Gender : Female Race : ORD : Procedure Date : Jun 30 2024 10:40:20 Edit Date : Jul 11 2024 15:30:12 Diagnosis: NORMAL SINUS RHYTHM COMPLETE LEFT BUNDLE BRANCH BLOCK BASELINE ARTIFACT Confirmed by MD TAYLOR QARAB ([id number]) on 07/11/2024 3:30:09 PM Test Reason : [facility] Overread By : MD TAYLOR QARAB Edited By : MD TAYLOR QARAB Referred By : BRYSON DHILLON Acquired by : Arun mandujano [facility] ECHOon 06-30-2024 CONCLUSIONS: - Exam indication: Abnormal [...] [facility] Echocardiography Report: Transthoracic Echo [facility] Date of service: 06/30/2024 1:22:36 PM CLASSER Ordering physician: YARI RINCON Indication: Abnormal ECG Technologist: Ann Salmeron [facility] Interpreting physician: Everardo Le DO PATIENT: [...] epicardial fat pad. [facility] Echocardiography Echocardiography Rep ort: Transthoracic Echo [facility] Date of service: 06/30/2024 1:22:36 PM CLASSER Ordering physician: YARI RINCON Indication: Abnormal ECG Technologist: Ann Salmeron [facility] Interpreting physician: Everardo Le DO PATIENT: [...] * * Final * * * CC WAVE ([employer]less [employer]) Medical Image : [id number] Normal [facility] HISTORY PHYSICALon HISTORY PHYSICAL HNO ID: [id number] Author: YARI RINCON APRN.CNP Service: ? Author [...] large neck Non-male patient STOP-Bang Score: 1 [id number] Score: Age: 65-74 Sex: female CHF history: No Hypertension history: No Stroke/TIA/thromboembolism history: No Vascular disease history: Yes Diabetes history: No [id number] Score: 3 ARISCAT Score: Age: 51-80 Preoperative [...] COMPLETE Silvio (more content not included)... Normal [facility] CT KNEE WO IVCON RTon 2023 CT KNEE WO IVCON RT * * *Final Report* * * DATE OF EXAM: Jun 23 2024 8:57AM [facility] 0084 - CT KNEE WO IVCON RT / PROCEDURE REASON: multiple diagnoses * * * * Physician Interpretation * * * * EXAMINATION: CT KNEE WO IVCON RT CLINICAL HISTORY: 74 years old Female with Chronic pain of right knee Primary osteoarthritis of right knee . Preoperative planning . TECHNIQUE: CT RIGHT knee without contrast [facility] protocol, knee 0.62 mm axial slices, hip [...] ankle and imaged foot: No significant finding Helmet Hat Sweatband Puncher: No significant finding. IMPRESSION: Limited CT images for the purposes of presurgical planning. Handbag Framer: NANCY Transcribe Date/Time: Jun 23 2024 9:14A Dictated by : JAMILA HENNESSY MD This examination was interpreted and the report reviewed and electronically signed by: JAMILA HENNESSY MD on Jun 23 2024 9:15AM EST [id number] [facility] CT Knee - right WO contrasto n 06-23-2024 IMPRESSION: Limited CT images for the purposes of presurgical planning. Handbag Framer: PSCB Transcribe Date/Time: Jun 23 2024 9:14A Dictated by : JAMILA HENNESSY MD This examination was interpreted and the report reviewed and electronically signed by: JAMILA HENNESSY MD on Jun 23 2024 9:15AM [facility] RADIOLOGY * * *Final Report* * * DATE OF EXAM: Jun 23 2024 8:57AM [facility] 0084 - CT KNEE WO IVCON RT [...] ankle and imaged foot: No significant finding Helmet Hat Sweatband Puncher: No significant finding. [facility] Provider, Raffi block [place] - 06/23/2024 * * *Final Report* * * DATE OF EXAM: Jun 23 2024 8:57AM [facility] 0084 - CT KNEE WO IVCON RT [...] ankle and imaged foot: No significant finding Helmet Hat Sweatband Puncher: No significant finding. IMPRESSION IMPRESSION: Limited CT images for the purposes of presurgical planning. Handbag Framer: NANCY Transcribe Date/Time: Jun 23 2024 9:14A Dictated by : JAMILA HENNESSY MD This examination was interpreted and the report reviewed and electronically signed by: JAMILA HENNESSY MD on Jun 23 2024 9:15AM EST [facility] Radiology Study observation (narrative) [facility] CT Knee - right WO contrastO rdered By: Ccf Provider on 06-23-2024 [facility] CNCOon 06-14-2024 CNCO Letter Text Normal [facility] CNPNon 06-14-2024 CNPN Telephone (ME2E) -- NORA CAMARILLO ([id number]) 1950 F [place]* Date Time Provider Department 06/14/24 BRYSON DHILLON MI2E During your visit today, we recorded the following information about you: Jefferson Wang PSS 06/14/2024 3:01 PM Signed TOTAL JOINT COMPLETE CARE PROGRAM PRE-OPERATIVE TEACHING Service Date: 06/14/2024 Service Time: 2:55 PM Date of : 1950 Gender: female Date of Surgery: 07/26/24 Procedure: Right Total Knee Replacement Complete Care Program was discussed with the patient: 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 SIGNATURE: FRANKLIN Finley PATIENT NAME: Nora Camarillo [...] 07/22/2017 Routine general medical examination at a [facility]*11/20/2009 12/22/2011 Class: Chronic Routine gynecological examination [Z01.419] [...] lateral ab (more content not included)... Normal [facility] CNPN Telephone (ORTHWS) -- NORA CAMARILLO ([id number]) 1950 F [facility]* Date Time Provider Department 06/14/24 BRYSON DHILLON During your visit today, we recorded the following information about you: Haritha Pascual MA 06/14/2024 12:01 PM Signed Surgical request completed for Robotic assisted right TKA at [facility] on 07/26/2024. CT scan scheduled for 06/23/2024. Post op appointments have been scheduled and mailed to the patient. Email [facility]. Haritha Pascual MA 06/14/2024 1:20 PM [...] knee [M17.11] Order(s):SURGICAL REQUEST - ELECTIVE (02/2020) [[id number]] Order #: [id number]: 1 Prescriptions as of 06/14/2024 - cholecalciferol, [...] 07/22/2017 Routine general medical examination at a [facility]*11/20/2009 12/22/2011 Class: Chronic Routine gynecological examination [Z01.419] [...] [I87.1] 09/27/2020 (more content not included)... Normal [facility] CNOVon 06-12-2024 CNOV Office Visit (ORTHWS ) -- NORA CAMARILLO ([id number]) 1950 F [place]* Date Time Provider Department 06/12/24 2:00 PM BRYSON DHILLON During your visit today, we recorded the following information about you: Bryson Dhillon MD 07/09/2024 2:21 PM Signed CONSULT ORTHOPAEDIC: KNEE PRIMARY CARE PHYSICIAN: Scot Blank MD REFERRING PROVIDER: Rebekah Eduardo [address] [facility] [address] ASSESSMENT AND PLAN Impression: Right Knee Moderate [...] below. Surgery Details Date and Location: At [facility] on 07/26/2024. Implants: Adolfo Robotic: Yes Predicted [...] Moderate: PHQ-9 (more content not included)... Normal [facility] Jimbo 06-09-2024 CNPN Telephone (FAMPST) -- NORA CAMARILLO ([id number]) 1950 [place]* Date Time Provider Department 06/09/24 SCOT BLANK During your visit today, we recorded the following information about you: Angelia Jj 06/09/2024 9:18 AM Addendum Nora is calling Scot Blank MD today to request a new handicap placard for patient to pick-up at front edger. Please advise when ready for sisal picker at home phone below verified NOTE: patient asking if this is possible to pick-up today? She is in the building around 11:00 am today Patient has been identified by name and birthdate. Duration of symptoms: ongoing Person calling: self Call patient at: at home [phone] (home) [phone] (cell) Was an appointment scheduled: No Closing statement: Results or non-symptom based questions: Thank you for calling [facility], your call will be returned within the next business day. Angelia Garza [facility] Quin Costa APRN.MEDICAL ENGINEER 06/09/2024 9:53 AM Signed Please let patient know order has been placed and she can stop at my office to sisal picker letter. Treasure Sanchez MA 06/09/2024 11:20 AM [...] of left knee [M17.12] Order(s):PARKING FOR HANDICAPPED [[id number]] Order #: [id number] Prescriptions as of 06/09/2024 - albuterol HFA [...] 07/22/2017 Routine general medical examination at a [facility]*11/20/2009 12/22/2011 Class: Chronic Routine gynecological examination [Z01.419] [...] 06/15/2019 Prim (more content not included)... Normal [facility] CNOVon 05-29-2024 CNOV Office Visit (ORTHWS ) -- NORA CAMARILLO ([id number]) 1950 [place] Date Time Provider [...] PA-C Department of Orthopaedics Orthopaedics [address] [facility] [address] Dept: [phone] Dept May 29, 2024 CHIEF COMPLAINT: Results [...] postoperative changes of medial tibial plateau subchondroplasty. Handbag Framer: NANCY Transcribe Date/Time: May 18 2024 1:25P Dictated by : JERMAINE DHILLON MD This examination was interpreted and the report reviewed and electronically signed by: JERMAINE DHILLON MD on May 18 2024 1:48PM EST Results-Findings * * *Final Report* * * DATE OF EXAM: May 17 2024 4:58PM [facility] 0213 - MRI KNEE WO IVCON RT [...] thickness cart (more content not included)... Normal [facility] MRI KNEE WO IVCON RTon 05-17 MRI KNEE WO IVCON RT * * *Final Report* * * DATE OF EXAM: May 17 2024 4:58PM [facility] 0213 - MRI KNEE WO IVCON RT [...] postoperative changes of medial tibial plateau subchondroplasty. Handbag Framer: PSCB Transcribe Date/Time: May 18 2024 1:25P Dictated by : JERMAINE DHILLON MD This examination was interpreted and the report reviewed and electronically signed by: JERMAINE DHILLON MD on May 18 2024 1:48PM EST [id number] Normal [facility] CNOVon 05-15-2024 CNOV Office Visit (ORTHWS ) -- NROA CAMARILLO ([id number]) 1950 [place]* Date Time Provider Department 05/15/24 11:00 AM [...] Rebekah Eduardo PA-C Department of Orthopaedics Orthopaedics [address] [place] [address] Dept: [phone] Dept May 15, 2024 CHIEF COMPLAINT: Established [...] and degenerative changes in the RIGHT knee. Handbag Framer: NANCY Transcribe Date/Time: Mar 06 2024 4:09P Dictated by : CATHY VIDAL, DO This examination was interpreted and the report reviewed and electronically signed by: CATHY VIDAL DO on Mar 06 2024 4:14PM EST Results-Findings * * *Final Report* * * DATE OF EXAM: Mar 03 2024 9:29AM [facility] 5203 - XR KNEE 4V AP/PA BOTH+LAT/REBEKA RT / PROCEDURE REASON: [id number] * * * * Physician Interpretation * [...] osteophytes. Supporting (more content not included)... Normal [facility] CNOVon 04-25-2024 CNOV Office Visit (VASSWS ) -- NORA CAMARILLO ([id number]) 1950 F [facility]* Date Time Provider Department 04/25/24 8:30 AM LIDYA PENA VASSWS During your visit today, we recorded the following information about you: Pulse Blood pressure 78/minute 135/72 Lidya Pena DO 04/25/2024 9:20 AM Signed [facility] [place] DEPARTMENT OF VASCULAR SURGERY OUTPATIENT VISIT DATE April 25, 2024 OUTPATIENT VISIT TYPE CONSULTATION SERVICE DATE: 04/25/2024 SERVICE TIME: 8:12 AM PRIMARY CARE PHYSICIAN: Scot Blank MD REFERRING PROVIDER: Jaylin Combs [address] [facility] [place] [address] Consult requested for an opinion regarding the [...] iliac veins, completion venography and IVUS interrogation; [employer] [place] venous stent [id number] PAIN ASSESSMENT: PAIN EVALUATION No data found [...] hand smoke exposure 11/08/2023 Senile osteoporosis 01/05/2006 Licensed Occupational Therapist following (Dr. Dobson) Simple cyst of breast [...] cratered ga (more content not included)... Normal [facility] CNPNon 04-14-2024 [facility] -- NORA CAMARILLO ([id number]) 1950 [place] Date Time Provider [...] 07/22/2017 Routine general medical examination at a [facility]*11/20/2009 12/22/2011 Class: Chronic Routine gynecological examination [Z01.419] [...] [R41.3] 09/27/ (more content not included)... Normal [facility] US CAROTID ARTERIES TATYANA VAS LABon 04-13-2024 US CAROTID ARTERIES TATYANA VAS LAB Non-Invasive Vascular Laboratory [facility] Carotid Duplex Bilateral/Complete Date of [...] Subclavian artery: Patent. Technologist: Jill Davis RVT, [facility] Ordering physician: JAYLIN COMBS Interpreting physician: BOO Sesay DO Final CC WAVE (Wireless Advanced Vehicle Elect[employer]) Medical Image : [id number] See Link below for Image Normal [facility] US LEG VEIN DVT UNL VAS LABo n 04-13-2024 LEG VEIN DVT UNL VAS LAB Non-Invasive Vascular Laboratory [facility] Lower Extremity Venous Duplex Unilateral [...] small saphenous vein. Technologist: Jill Davis RVT [facility] Ordering physician: LIDYA PENA Interpreting physician: BOO Sesay DO Final CC WAVE (Wireless Advanced Vehicle [employer]) Medical Image : [id number] See Link below for Image Normal [facility] VISCERAL VEIN COMPLETE VA S LABon 04-13-2024 VISCERAL VEIN COMPLETE VAS LAB Non-Invasive Vascular Laboratory [facility] Visceral Venous Duplex Bilateral/Complete Date [...] Normal, respirophasic flow. Technologist: Jill Davis RVT [facility] Ordering physician: LIDYA PENA Interpreting physician: BOO Sesay DO Final CC WAVE (Wireless Advanced Vehicle [employer]) Medical Image : [id number] See Link below for Image Normal [facility] CNOVon 03-24-2024 CNOV Office Visit (FAMPWS ) -- NORA CAMARILLO ([id number]) 1950 [place]* Date Time Provider Department 03/24/24 10:00 AM JAYLIN COMBS [facility] During your visit today, we recorded [...] hernia 07/22/2016 Left hip pain 09/14/[address] [place] [address] Xander Martinez Left lateral abdominal [...] hand smoke exposure 11/08/2023 Senile osteoporosis 01/05/2006 Licensed Occupational Therapist following (Dr. Dobson) Simple cyst of breast 11/2009 Left retroareolar Unspecified constipation Previous Surgical History PAST SURGICAL HISTORY Procedure Laterality Date APPENDECTOMY ARTHRS KNE SURG W/MENISCECTOMY MED/LAT W/SHVG Le (more content not included)... Normal [facility] XR Lower extremity - bilater al AP W standingon 03-07-2024 IMPRESSION: Findings as discussed in results portion of report Handbag Framer: NANCY Transcribe Date/Time: Mar 07 2024 8:03A Dictated by : BRADEN SINGH DO This examination was interpreted and the report reviewed and electronically signed by: BRADEN SINGH DO on Mar 07 2024 8:03AM [facility] * * *Final Report* * * [...] over the LEFT side of the pelvis [facility] Provider, Raffi Cruz - 03/07/2024 * [...] FRONTAL SCANOGRAM LENGTHS, XR LEG FRONTL HIP-ANKL [facility] AXIS RESULT: Findings: AP view of the full lengths of the bilateral lower extremities was obtained with cm ruler markings. Measurements will be obtained by the ordering service. Bone density appears well-preserved. No fractures or dislocations are seen. Vascular graft material is noted projecting over the LEFT side of the pelvis IMPRESSION IMPRESSION: Findings as discussed in results portion of report Handbag Framer: NANCY Transcribe Date/Time: Mar 07 2024 8:03A Dictated by : BRADEN SINGH DO This examination was interpreted and the report reviewed and electronically signed by: BRADEN SINGH DO on Mar 07 2024 8:03AM EST [facility] XR Knee - right 4 Viewson IMPRESSION: Postoperative and degenerative changes in the RIGHT knee. Handbag Framer: NANCY Transcribe Date/Time: Mar 06 2024 4:09P Dictated by : ACTHY VIDAL DO This examination was interpreted and the report reviewed and electronically signed by: CATHY VIDAL DO on Mar 06 2024 4:14PM EST [facility] * * *Final Report* * * DATE OF EXAM: Mar 03 2024 9:29AM [facility] - XR KNEE 4V AP/PA BOTH+LAT/REBEKA RT / PROCEDURE REASON: [id number] * * * * Physician Interpretation * [...] joint space narrowing with small marginal osteophytes. [facility] Provider, Rafif Cruz - 03/06/2024 * * *Final Report* * * DATE OF EXAM: Mar 03 2024 9:29AM [facility] - XR KNEE 4V AP/PA BOTH+LAT/REBEKA RT / PROCEDURE REASON: [id number] * * * * Physician Interpretation * [...] and degenerative changes in the RIGHT knee. Handbag Framer: NANCY Transcribe Date/Time: Mar 06 2024 4:09P Dictated by : CATHY VIDAL DO This examination was interpreted and the report reviewed and electronically signed by: CATHY VIDAL DO on Mar 06 2024 4:14PM EST [facility] XR Knee - right 4 ViewsOrder ed By: Ccdania Provider on 03-06-2024 [facility] CNOVon 03-03-2024 CNOV Office Visit (ORMDNA ) -- NORA CAMARILLO ([id number]) 1950 [place] Date Time Provider [...] medial meniscal tear and subchondroplasty done in [place] in 2021. She states that the knee [...] Palpitations 07/22/2016: (more content not included)... Normal [facility] Large Joint Arthro/Inj: R kn ee jointon 03-03-2024 Garth Gonzalez P A-C 03/03/2024 11:26 AM Large Joint Arthro/Inj: R knee joint Informed Consent Consent Obtained: Verbal Howard Protocol A moment to CARE was completed. [...] equipment, possible retained foreign bodies accounted for. [facility] No Panel Informationon 03-03 Radiology Study observation (narrative) [facility] XR KNEE 4V AP/PA BOTH+LAT/ME R RTon 03-03-2024 XR KNEE 4V AP/PA BOTH+LAT/REBEKA RT * * *Final Report* * * DATE OF EXAM: Mar 03 2024 9:29AM [facility] - XR KNEE 4V AP/PA BOTH+LAT/REBEKA RT / PROCEDURE REASON: [id number] * * * * Physician Interpretation * [...] and degenerative changes in the RIGHT knee. Handbag Framer: NANCY Transcribe Date/Time: Mar 06 2024 4:09P Dictated by : CATHY VIDAL DO This examination was interpreted and the report reviewed and electronically signed by: CATHY VIDAL DO on Mar 06 2024 4:14PM EST [id number] [facility] XR LEG FRONTL HIP-ANKL MECH AXISon [...] as discussed in results portion of report Handbag Framer: NANCY Transcribe Date/Time: Mar 07 2024 8:03A Dictated by : BRADEN LARRICK, DO This examination was interpreted and the report reviewed and electronically signed by: BRADEN SINGH DO on Mar 07 2024 8:03AM EST [id number] [facility]20[facility] HOLLYNORA GONZALEZ ([id number]) 1950 [place] Date Time Provider Department 02/21/24 [facility]LIN COMBS [facility] During your visit today, we recorded [...] Unknown Date Reviewed: 02/15/2024 Reviewed by: Lorenza Reaz MD - Fully Assessed Reason for Visit: [...] Allergic rhinitis (more content not included)... Normal [facility] 25(OH)D3 SerPl-mCncon 2023 25-hydroxyvitamin D3 [Mass/Vol] 21.1 ng/mL Low 31.0-80.0 [facility] Comment on above: Order Comment: Speci men Type: BLOOD SPECIMEN [facility]ing Facility: [facility] Address: [address] [place] [address] Result Comment: Clas sification of 25 OH Vitamin D status: Deficiency/Insufficiency: < or = 30 ng/ml. Sufficiency/Optimal Levels: 31-80 ng/mL Toxicity: > 100 ng/mL. Test performed by chemiluminescent immunoassay. Performed By: #### 1 989-3 #### [facility] CLIA [id number] [address] [place] [address] [facility] CNOVon 02-15-2024 CNOV Office Visit (PULMWS ) -- NORA CAMARILLO ([id number]) 1950 F [place] Date Time Provider Department 02/15/24 11:00 AM LOREZNA REZA PULMWS During your visit today, we recorded the following information about you: Pulse Respiration Blood pressure Weight 72/minute 17/minute 130/76 84.8 kg Lorenza Reza MD 02/15/2024 2:27 PM Signed . 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 She has a dog in her [...] hernia 09/14/2017: Left hip pain Comment: Seeing [place] tutu Martinez 02/15/2019: Left lateral abdominal pain [...] hand smoke exposure 01/05/2006: Senile osteoporosis Comment: Licensed Occupational Therapist following (Dr. Dobson) 11/2009: Simple cyst of breast Comment: Left retroareolar No date: Unspecifi (more content not included)... Normal [facility] Comprehensive metabolic 2000 panelon 02-15-2024 Albumin [Mass/Vol] 4.4 g/dL Normal 3.9-4.9 [facility] Comment on above: Order Comment: Speci men Type: BLOOD SPECIMEN Ordering Facility: [facility] Address: [address] [place] [address] Performed By: #### 2 4323-8 #### [facility] CLIA [id number] [address] [place] [address] [place] ALP [Catalytic activity/Vol] 97 U/L Normal 34-123 [facility] [facility] Comment on above: Order Comment: Speci men Type: BLOOD SPECIMEN Ordering Facility: [facility] Address: [address] [place] [address] Performed By: #### 2 4323-8 #### [facility] CLIA [id number] [address] [place] [address] [place] ALT [Catalytic activity/Vol] 21 U/L Normal 7-38 [facility] Comment on above: Order Comment: Speci men Type: BLOOD SPECIMEN Ordering Facility: [facility] Address: [address] [place] [address] Performed By: #### 2 4323-8 #### [facility] CLIA [id number] [address] [place] [address] [place] Anion gap [Moles/Vol] 10 mmol/L Normal 8-15 [facility] Comment on above: Order Comment: Speci men Type: BLOOD SPECIMEN Ordering Facility: [facility] Address: [address] [place] [address] Performed By: #### 2 4323-8 #### [facility] CLIA [id number] [address] [place] [address] [place] AST [Catalytic activity/Vol] 19 U/L Normal 13-35 [facility] Comment on above: Order Comment: Speci men Type: BLOOD SPECIMEN Ordering Facility: [facility] Address: [address] [place] [address] Performed By: #### 2 4323-8 #### [facility] CLIA [id number] [address] [place] [address] [place] Bilirubin [Mass/Vol] 0.6 mg/dL Normal 0.2-1.3 [facility] Comment on above: Order Comment: Speci men Type: BLOOD SPECIMEN Ordering Facility: [facility] Address: [address] [place] [address] Performed By: #### 2 4323-8 #### [facility] CLIA [id number] [address] [place] [address] [place] Calcium [Mass/Vol] 9.3 mg/dL Normal 8.5-10.2 [facility] Comment on above: Order Comment: Speci men Type: BLOOD SPECIMEN Ordering Facility: [facility] Address: [address] [place] [address] Performed By: #### 2 4323-8 #### [facility] CLIA [id number] [address] [place] [address] [place] Chloride [Moles/Vol] 103 mmol/L Normal 98-107 [facility] Comment on above: Order Comment: Speci men Type: BLOOD SPECIMEN Ordering Facility: [facility] Address: [address] [place], [place] [address] Performed By: #### 2 4323-8 #### [facility] CLIA [id number] [address] [place] [address] [place] CO2 [Moles/Vol] 24 mmol/L Normal 22-30 [facility] Comment on above: Order Comment: Speci men Type: BLOOD SPECIMEN Ordering Facility: [facility] Address: [address] [place], [place] [address] Performed By: #### 2 4323-8 #### [facility] CLIA [id number] [address] [place] [address] [place] Creatinine [Mass/Vol] 0.85 mg/dL Normal 0.58-0.96 [facility] Comment on above: Order Comment: Vinita fierro Type: BLOOD SPECIMEN Ordering Facility: [facility] Address: [address] [place] [address] Performed By: #### 2 4323-8 #### [facility] CLIA [id number] [address] [place] [address] [place] Creatinine and Glomerular filtration rate.predicted panel (S/P/Bld) 72 mL/min/1.73m??? Normal >=60 [facility] Comment on above: Order Comment: Vinita fierro Type: BLOOD SPECIMEN Ordering Facility: [facility] Address: [address] [place] [address] Result Comment: Brittani mated Glomerular Filtration Rate [...] GFR. Performed By: #### 2 4323-8 #### [id number] [address] [place] [address] [place] Glucose [Mass/Vol] 114 mg/dL High 74-99 [facility] Comment on above: Order Comment: Vinita fierro Type: BLOOD SPECIMEN Ordering Facility: [facility] Address: [address] [id number] Result Comment: The [place] Diabetes Association (ADA) provides guidance for cutoff [...] Standards of Medical Care in Diabetes 2016, [place] Diabetes Association. Diabetes Care. 2016.39(Suppl 1). Performed By: #### 2 4323-8 #### [facility] CLIA [id number] [address] [place] [address] [place] Potassium [Moles/Vol] 4.4 mmol/L Normal 3.7-5.1 [facility] Comment on above: Order Comment: Vinita fierro Type: BLOOD SPECIMEN Ordering Facility: [facility] Address: [address] [place] [address] Performed By: #### 2 4323-8 #### [facility] CLIA [id number] [address] [place] [address] [place] Protein [Mass/Vol] 7.4 g/dL Normal 6.3-8.0 [facility] Comment on above: Order Comment: Vinita fierro Type: BLOOD SPECIMEN Ordering Facility: [facility] Address: [address] [place], [place] [address] Performed By: #### 2 4323-8 #### [id number] [address] [place] [address] [place] Sodium [Moles/Vol] 137 mmol/L Normal 136-144 [facility] Comment on above: Order Comment: Vinita fierro Type: BLOOD SPECIMEN Ordering Facility: [facility] Address: [address] [place] [address] Performed By: #### 2 4323-8 #### [facility] CLIA [id number] [address] [place] [address] [place] Urea nitrogen [Mass/Vol] 17 mg/dL Normal 7-21 [facility] Comment on above: Order Comment: Vinita fierro Type: BLOOD SPECIMEN Ordering Facility: [facility] Address: [address] [place] [address] Performed By: #### 2 4323-8 #### [facility] CLIA [id number] [address] [id number] [place] Eosinophils Auto (Bld) [#/Vo l]on 02-15-2024 Eosinophils (Bld) [#/Vol] 0.43 10*3/uL [facility] Interpretation and review of laboratory results Normal [facility] Eosinophils (Bld) [#/Vol] 0.43 10*3/uL Normal <0.46 [facility] Comment on above: Order Comment: Vinita fierro Type: BLOOD SPECIMEN Ordering Facility: [facility] Address: [address] [place] [address] Performed By: #### L BRYAN [facility], 2132-9 #### [facility] CLIA [id number] [address] [place] [address] [place] HbA1c (Bld)on 02-15-2024 Average glucose Estimated from glycated hemoglobin (Bld) [Mass/Vol] 103 mg/dL Normal [facility] Comment on above: Order Comment: Vinita fierro Type: BLOOD SPECIMEN Ordering Facility: [facility] Address: [address] [place] [address] Result Comment: eAG: (Estimated average glucose) is a calculated value from HgbA1c and is hvac sales representative of the average blood glucose level in the last 2-3 month period. Performed By: #### 5 5454-3 #### [facility] CLIA [id number] [address] [place], [place] [address]K [id number] [place] [address] [place] HbA1c (Bld) [Mass fraction] 5.2 % Normal 4.3-5.6 [facility] Comment on above: Order Comment: Vinita fierro Type: BLOOD SPECIMEN [facility]ing Facility: [facility] Address: [address] [place] [address] Result Comment: Amer [place] Diabetes Association guidelines indicate that patients with HgbA1c in the range 5.7-6.4% are at increased risk for development of diabetes, and intervention by lifestyle modification may be beneficial. HgbA1c greater or equal to 6.5% is considered diagnostic of diabetes. Performed By: #### 5 5454-3 #### [facility] CLIA [id number] [address] [facility] [address] [id number] [address] [place] IgE SerPl-aCncon 02-15-2024 IgE Qn 145.0 kU/l High <114.0 [facility] Comment on above: Order Comment: Vinita fierro Type: BLOOD SPECIMEN Ordering Facility: [facility] Address: [address] [place] [address] Performed By: #### L NAVEED, 2132-03 #### [facility] CLIA [id number] [address] STATES OF [facility] LIPID PANEL, NONFASTINGon Cholesterol [Mass/Vol] 199 mg/dL Normal <200 [facility] Comment on above: Order Comment: Vinita fierro Type: BLOOD SPECIMEN Ordering Facility: [facility] Address: [address] [place] [address] Result Comment: <200 mg/dL, Desirable 200-239 mg/dL, Borderline high >239 mg/dL, High Performed By: #### L IPVISHAL, 2132-03 #### [facility] CLIA [id number] [address] STATES OF [facility] HDL CHOLESTEROL, NF 61 mg/dL Normal >39 [facility] Comment on above: Order Comment: Vinita fierro Type: BLOOD SPECIMEN Ordering Facility: [facility] Address: [address] [place] [address] Result Comment: 40-5 9 mg/dL, Acceptable >59 mg/dL, High: Negative risk factor for coronary heart disease <40 mg/dL, Low: Positive risk factor for coronary heart disease Performed By: #### L IPVISHAL, 2132-03 #### [facility] CLIA [id number] [address] [place] LDL CHOLESTEROL, NF 118 mg/dL High <100 [facility] Comment on above: Order Comment: Vinita fierro Type: BLOOD SPECIMEN Ordering Facility: [facility] Address: [address] [place] [address] Result Comment: <100 mg/dL, Optimal 100-129 mg/dL, Near optimal/above optimal 130-159 mg/dL, Borderline high 160-189 mg/dL, High >189 mg/dL, Very high Secondary prevention optimal LDL Cholesterol levels are recommended to be < 70 mg/dL Performed By: #### L IPNF, 2132-03 #### [facility] CLIA [id number] [address] LDL/HDL RATIO, NF 1.93 mg/dL Normal <2.54 [facility] Comment on above: Order Comment: Vinita fierro Type: BLOOD SPECIMEN Ordering Facility: [facility] Address: [address] [place] [address] Result Comment: Refe rence: 1. National Cholesterol Education Program ATP III Guideline At-A-Glance Quick Desk Reference: National Heart, Lung, and Blood [place]. National Institutes of Health. 2001: NIH Publication No. 01-3305. 2. An International Atherosclerosis Society position paper: global recommendations for the management of dyslipidemia: executive summary, Atherosclerosis. 2014: 232(2):410-413. Performed By: #### L IPVISHAL, 2132-03 #### [facility] CLIA [id number] [address] NON HDL CHOL, NF 138 mg/dL High <130 [facility] Comment on above: Order Comment: Vinita fierro Type: BLOOD SPECIMEN Ordering Facility: [facility] Address: [address] [place] [address] Result Comment: <130 mg/dL, Optimal 130-159 mg/dL, Near optimal/above optimal 160-189 mg/dL, Borderline high 190-219 mg/dL, High >219 mg/dL, Very high Secondary prevention optimal non HDL Cholesterol levels are recommended to be <100 mg/dL Performed By: #### L IPNF, 2132-03 #### [facility] CLIA [id number] [address] OF [facility] T CHOL/HDL RATIO NF 3.26 mg/dL Normal <5.10 [facility] Comment on above: Order Comment: Vinita fierro Type: BLOOD SPECIMEN Ordering Facility: [facility] Address: [address] [place] [address] Performed By: #### L IPNF, 2132-03 #### [facility] CLIA [id number] [address] TRIGLYCERIDES, NF 100 mg/dL Normal <150 [facility] Comment on above: Order Comment: Jessicai men Type: BLOOD SPECIMEN [facility]ing Facility: [facility] Address: [address] [place] [address] Result Comment: <150 mg/dL, Normal 150-199 mg/dL, Borderline high 200-499 mg/dL, High >499 mg/dL, Very high Performed By: #### L IPNF, 2132-03 #### [facility] CLIA [id number] [address] VLDL CHOLESTEROL, NF 20 mg/dL Normal <30 [facility] Comment on above: Order Comment: Vinita fierro Type: BLOOD SPECIMEN Ordering Facility: [facility] Address: [address] [place] [address] Performed By: #### L IPNF, 2132-03 #### [facility] CLIA [id number] [address] No Panel Informationon 02-14 ECR55-16% POST (L/S) 1.49 L/S [facility] WBN59-84% PRE (L/S) 0.84 L/S [facility] FEV1 PRE (L) 1.89 L [facility] FEV1/FVC POST (%) 68 % [facility] FEV1/FVC PRE (%) 65 % 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 PULMONARY FUNCTION LAB [facility] Milena Duckworth JAMEYDania T 02/15/2024 11:40 [...] DATE: February 15, 2024 TIME: 11:40 AM [facility] No Panel InformationOrdered By: Milena Duckworth on 02-15-2024 [facility] XR Chest PA and Lateralon IMPRESSION: No acute radiographic abnormality. Handbag Framer: NANCY Transcribe Date/Time: Sep 06 2023 4:32P [...] changes. DIVISION OF RADIOLOGY Provider, Raffi Terry [place] - 09/06/2023 * * *Final Report* * [...] changes. IMPRESSION IMPRESSION: No acute radiographic abnormality. Handbag Framer: PSCB Transcribe Date/Time: Sep 06 2023 4:32P Dictated by : JEN SÁNCHEZ MD This examination was interpreted and the report reviewed and electronically signed by: JEN SÁNCHEZ MD on Sep 06 2023 4:32PM EST [facility] Radiology Study observation (narrative) [facility] XR Chest PA and LateralOrder ed By: Ccf Provider on 09-06-2023 [facility] DXA-AXIAL SKELETONon 023 LOWEST T-SCORE -2.9 [facility] Foot 2 Viewson 12-18-2022 Foot 2 Views [facility] Imaging Services [address] [place] [address] Foot 2 Views MR#: [id number] Acct: [id number] Name: NORA CAMARILLO Rep #: [id number] : 1950 F 72 From: Alyx carmichael MD PCP: Dr. Scot Blank MD Status: [facility] Study: Foot 2 Views Date of Exam: 12/18/22 Exam# [id number] Ordering Dr: Gina Gibson DPSangita HISTORY: FB. [...] 9:36 EDT Reading Location ID and State: [facility] / [place] Tel , Service support , CC: CONSTANTINO Gibson; Dr. Scot Blank MD Handbag Framer: Signed Normal Operative Reporton 3 Operative Report [facility] Medical Records Department [address] [facility] [place] [address] Operative Report 12/18/22 0850 MR#: [id number] Acct: [id number] Name: NORA CAMARILLO Rep #: [id number] : 1950 72 From: Gina Gibson DPM PCP: Dr. Scot Blank MD Status:[facility] Location: [place] [address] Report of Operation Date of Procedure: 12/18/22 [...] of the flexor tendon. 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 Scot Blank MD Signed Normal Surgery Specimen Level Ion 0 12-18-2022 Surgery Specimen Level I Patient Age/Sex Location Account Attending Physician NORA CAMARILLO 72/F [facility] [id number] Dr. Gina Gibson DPM Specimen: [id number] Received: 12/18/22 Status: TOSHIA [place] Num: [id number] Spec Type: FOREIGN B Subm Dr: Dr. [...] gross identification only. / HARMAN:wu 12/18/2022 CPT: 66171 Patient Age/Sex Location Account Attending Physician NORA CAMARILLO 72/F [facility] [id number] Dr. Gina Gibson DPM Signed (signature on file) Dr. Jerzy Lu MD 12/21/22 0918 Normal Comment on above: Performed By: #### Soha BALLESTEROS #### Laboratory [address] [place], [address] CBC W/Diff, Automatedon 05-3 0-2022 Absolute Lymph 1.98 X10 3/uL Normal 0.83-4.51 Comment on above: Order Comment: Order Date: 12/08/22 Order Info: 0184-1 - CBCD Performed By: #### L 100.0100, L500.4050 #### Laboratory [address] [place], [address] Absolute Neut 2.3 X10 3/uL Normal 2.0-7.7 Comment on above: Order Comment: Order Date: 12/08/22 Order Info: 0184-1 - CBCD Performed By: #### L 100.0100, L500.4050 #### Laboratory [address] [place], [address] Basophils/100 WBC (Bld) 0.9 % Normal 0-1 Comment on above: Order Comment: Order Date: 12/08/22 Order Info: 0184-1 - CBCD Performed By: #### L 100.0100, L500.4050 #### Laboratory [address] [place], [address] Eosinophils/100 WBC (Bld) 6.8 % High 0-5 Comment on above: Order Comment: Order Date: 12/08/22 Order Info: 0184-1 - CBCD Performed By: #### L 100.0100, L500.4050 #### Laboratory [address] [place], [address] Erythrocyte distribution width (RBC) [Ratio] 13.1 % Normal 11.6-14.6 Comment on above: Order Comment: Order Date: 12/08/22 Order Info: 0184- - CBCD Performed By: #### L 100.0100, L500.4050 #### Laboratory [address] [place], [address] Hematocrit (Bld) [Volume fraction] 43.8 % Normal 37-47 Comment on above: Order Comment: Order Date: 12/08/22 Order Info: 0184- - CBCD Performed By: #### L 100.0100, L500.4050 #### Laboratory [address] [place], [address] Hemoglobin (Bld) [Mass/Vol] 14.4 g/dL Normal 12.0-15.0 Comment on above: Order Comment: Order Date: 12/08/22 Order Info: 0184- - CBCD Performed By: #### L 100.0100, L500.4050 #### Laboratory [address] [place], [address] IG% 0.200 Normal 0.0-0.9 Comment on above: Order Comment: Order Date: 12/08/22 Order Info: 0184- - CBCD Result Comment: IG% - Immature Granulocytes (promyelocytes, myelocytes and metamyelocytes) > 1% indicates that a LEFT SHIFT is Present. Performed By: #### L 100.0100, L500.4050 #### Laboratory [address] [place], [address] Lymphocytes/100 WBC (Bld) 37.2 % Normal 19-41 Comment on above: Order Comment: Order Date: 12/08/22 Order Info: 0184-1 - CBCD Performed By: #### L 100.0100, L500.4050 #### Laboratory [address] [place], [address] MCH (RBC) [Entitic mass] 31.6 pg Normal 27.0-32.0 Comment on above: Order Comment: Order Date: 12/08/22 Order Info: 0184-1 - CBCD Performed By: #### L 100.0100, L500.4050 #### Laboratory [address] [place], [address] MCHC (RBC) [Mass/Vol] 32.9 g/dL Normal 32-36 [facility] Comment on above: Order Comment: Order Date: 12/08/22 Order Info: 0184-1 - CBCD Performed By: #### L 100.0100, L500.4050 #### Laboratory [address] [place], [address] MCV (RBC) [Entitic vol] 96.3 fL Normal 81-99 Comment on above: Order Comment: Order Date: 12/08/22 Order Info: 0184-1 - CBCD Performed By: #### L 100.0100, L500.4050 #### Laboratory [address] [place], [address] Monocytes/100 WBC (Bld) 12.6 % High 0-10 Comment on above: Order Comment: Order Date: 12/08/22 Order Info: 0184-1 - CBCD Performed By: #### L 100.0100, L500.4050 #### Laboratory [address] [place], [address] Neutrophils/100 WBC (Bld) 42.3 % Low 47-70 Comment on above: Order Comment: Order Date: 12/08/22 Order Info: 0184-1 - CBCD Performed By: #### L 100.0100, L500.4050 #### Laboratory [address] [place], [address] Nucleated RBC (Bld) [#/Vol] 0 10*3/uL Normal 0-5 Comment on above: Order Comment: Order Date: 12/08/22 Order Info: 0184-1 - CBCD Performed By: #### L 100.0100, L500.4050 #### Laboratory [address] [place], [address] Platelet mean volume (Bld) [Entitic vol] 10.8 fL Normal 6.2-12.0 Comment on above: Order Comment: Order Date: 12/08/22 Order Info: 0184-1 - CBCD Performed By: #### L 100.0100, L500.4050 #### Laboratory [address] [place], [address] Platelets (Bld) [#/Vol] 334 10*3/uL Normal 150-450 Comment on above: Order Comment: Order Date: 12/08/22 Order Info: 0184-1 - CBCD Performed By: #### L 100.0100, L500.4050 #### Laboratory [address] [place], [address] RBC (Bld) [#/Vol] 4.55 10*6/uL Normal 4.2-5.4 [facility] Comment on above: Order Comment: Order Date: 12/08/22 Order Info: 0184-1 - CBCD Performed By: #### L 100.0100, L500.4050 #### Laboratory [address] [place], [address] RDW SD 46.5 fl High 35.1-43.9 Comment on above: Order Comment: Order Date: 12/08/22 Order Info: 0184-1 - CBCD Performed By: #### L 100.0100, L500.4050 #### Laboratory [address] [place], [address] WBC (Bld) [#/Vol] 5.3 10*3/uL Normal 4.4-11.0 [facility] Comment on above: Order Comment: Order Date: 12/08/22 Order Info: 0184-1 - CBCD Performed By: #### L 100.0100, L500.4050 #### Laboratory [address] [place], [address] Comprehensive Metabolic Prof ilon 12-08-2022 Albumin [Mass/Vol] 3.6 g/dL Normal 3.2-5.0 [facility] Comment on above: Order Comment: Order Date: 12/08/22 Order Info: 0786-1 - CMP ok nonfasting Performed By: #### L 100.0100, L500.4050 #### Laboratory [address] [place], [address] Albumin/Globulin [Mass ratio] 1.0 {ratio} Normal 0.9-2.4 Comment on above: Order Comment: Order Date: 12/08/22 Order Info: 0786-1 - CMP ok nonfasting Performed By: #### L 100.0100, L500.4050 #### Laboratory [address] [place], [address] ALK P 111 U/L Normal 45-117 Comment on above: Order Comment: Order Date: 12/08/22 Order Info: 0786-1 - CMP ok nonfasting Performed By: #### L 100.0100, L500.4050 #### Laboratory [address] [place], [address] ALT [Catalytic activity/Vol] 29 U/L Normal 13-56 Comment on above: Order Comment: Order Date: 12/08/22 Order Info: 0786-1 - CMP ok nonfasting Performed By: #### L 100.0100, L500.4050 #### Laboratory [address] [place], [address] AST [Catalytic activity/Vol] 17 U/L Normal 15-37 Comment on above: Order Comment: Order Date: 12/08/22 Order Info: 0786-1 - CMP ok nonfasting Performed By: #### L 100.0100, L500.4050 #### Laboratory [address] [place], [address] Bilirubin [Mass/Vol] 0.50 mg/dL Normal 0.20-1.00 [facility] Comment on above: Order Comment: Order Date: 12/08/22 Order Info: 0786-1 - CMP ok nonfasting Result Comment: For patients on eltrombopag therapy, use of Dimension [place] TBIL is not recommended. Performed By: #### L 100.0100, L500.4050 #### Laboratory [address] [place], [address] BUN/CRE 14.8 RATIO Normal 10-20 Comment on above: Order Comment: Order Date: 12/08/22 Order Info: 0786-1 - CMP ok nonfasting Performed By: #### L 100.0100, L500.4050 #### Laboratory [address] [place], [address] CA,Total 8.9 mg/dL Normal 8.5-10.1 Comment on above: Order Comment: Order Date: 12/08/22 Order Info: 0786-1 - CMP ok nonfasting Performed By: #### L 100.0100, L500.4050 #### Laboratory [address] [place], [address] Chloride [Moles/Vol] 109 mmol/L High 98-107 [facility] Comment on above: Order Comment: Order Date: 12/08/22 Order Info: 0786-1 - CMP ok nonfasting Performed By: #### L 100.0100, L500.4050 #### Laboratory [address] [place], [address] CO2 [Moles/Vol] 23.0 mmol/L Normal 21.0-32.0 Comment on above: Order Comment: Order Date: 12/08/22 Order Info: 0786-1 - CMP ok nonfasting Performed By: #### L 100.0100, L500.4050 #### Laboratory [address] [place], [address] Creatinine [Mass/Vol] 0.88 mg/dL Normal 0.55-1.02 [facility] Comment on above: Order Comment: Order Date: 12/08/22 Order Info: 0786-1 - CMP ok nonfasting Result Comment: The validity of the calculated GFR GFRAA in patients over 70 years has not been determined. Clinical correlation is essential. Performed By: #### L 100.0100, L500.4050 #### Laboratory [address] [place], [address] EST GFR - AA 81 mL/min Normal >60 Comment on above: Order Comment: Order Date: 12/08/22 Order Info: 0786-1 - CMP ok nonfasting Result Comment: Afri can Norwegian GFR Calc Performed By: #### L 100.0100, L500.4050 #### Laboratory [address] [place], [address] GAP 9 Normal 5-15 Comment on above: Order Comment: Order Date: 12/08/22 Order Info: 0786-1 - CMP ok nonfasting Performed By: #### L 100.0100, L500.4050 #### Laboratory [address] [place], [address] GFR/1.73 sq M.predicted among non-blacks MDRD (S/P/Bld) [Vol rate/Area] 67 mL/min/{1.73_m2} Normal >60 Comment on above: Order Comment: Order Date: 12/08/22 Order Info: 0786-1 - CMP ok nonfasting Result Comment: Non- GFR Calc Performed By: #### L 100.0100, L500.4050 #### Laboratory [address] [place], [address] Globulin (S) [Mass/Vol] 3.7 g/dL Normal 2.2-4.2 Comment on above: Order Comment: Order Date: 12/08/22 Order Info: 0786-1 - CMP ok nonfasting Performed By: #### L 100.0100, L500.4050 #### Laboratory [address] [place], [address] Glucose [Mass/Vol] 100 mg/dL Normal 74-106 [facility] Comment on above: Order Comment: Order Date: 12/08/22 Order Info: 0786-1 - CMP ok nonfasting Result Comment: Fast ing Glucose result from 100 to 125 mg/dL suggests IMPAIRED HOMEOSTASIS per A.D.A. criteria. Performed By: #### L 100.0100, L500.4050 #### Laboratory [address] [place], [address] Potassium [Moles/Vol] 4.3 mmol/L Normal 3.5-5.1 [facility] Comment on above: Order Comment: Order Date: 12/08/22 Order Info: 0786-1 - CMP ok nonfasting Performed By: #### L 100.0100, L500.4050 #### Laboratory [address] [place], [address] Sodium [Moles/Vol] 141 mmol/L Normal 136-145 [facility] Comment on above: Order Comment: Order Date: 12/08/22 Order Info: 0786-1 - CMP ok nonfasting Performed By: #### L 100.0100, L500.4050 #### Laboratory [address] [place], [address] T PROT 7.3 g/dL Normal 6.4-8.2 Comment on above: Order Comment: Order Date: 12/08/22 Order Info: 0786-1 - CMP ok nonfasting Performed By: #### L 100.0100, L500.4050 #### Laboratory [address] [place], [address] Urea nitrogen [Mass/Vol] 13 mg/dL Normal 7-18 Comment on above: Order Comment: Order Date: 12/08/22 Order Info: 0786-1 - CMP ok nonfasting Performed By: #### L 100.0100, L500.4050 #### Laboratory [address] [place], [address] Ext Non Vasc Limited/Soft Ti sson 11-16-2022 Ext Non Vasc Limited/Soft Tiss [facility] Imaging Services [address] [place] [address] Ext Non Vasc Limited/Soft Tiss MR#: [id number] Acct: [id number] Name: NORA CAMARILLO Rep #: [id number] : 1950 F 72 From: Alejo mendenhall MD PCP: Dr. Scot Blank MD Status: REG CLI Study: Ext Non Vasc Limited/Soft Tiss Date of Exam: 0 11/16/22 Exam# [id number] Ordering Dr: Gina Gibson DPSangita STUDY: SUPERFICIAL [...] CC: CONSTANTINO Gibson; Dr. Scot Blank MD Handbag Framer: Signed Normal XR CHEST 2V FRONTAL/LATon [facility] XR Chest PA and Lateralon IMPRESSION: No acute radiographic abnormality. Handbag Framer: PSCB Transcribe Date/Time: Oct 19 2022 12:45P Dictated by : DALLAS DOW MD This examination was interpreted and the report reviewed and electronically signed by: DALLAS DOW MD on Oct 19 2022 12:46PM [facility] DIVISION OF RADIOLOGY * * *Final [...] the thoracic spine. DIVISION OF RADIOLOGY Provider, [facility] - 10/19/2022 * * *Final [...] spine. IMPRESSION IMPRESSION: No acute radiographic abnormality. Handbag Framer: [facility] Transcribe Date/Time: Oct 19 2022 12:45P Dictated by : DALLAS DOW MD This examination was interpreted and the report reviewed and electronically signed by: DALLAS DOW MD on Oct 19 2022 12:46PM EST [facility] Radiology Study observation (narrative) [facility] XR Chest PA and LateralOrder ed By: Ccf Provider on 10-19-2022 [facility] XR FOOT GENERAL 3V AP/LAT/OB L LEFTon 09-18-2022 [facility] No Panel Informationon 07-14 [facility] No Panel Informationon 04-09 [facility] XR Chest PA and Lateralon IMPRESSION: Stable chest. No acute cardiopulmonary process. Handbag Framer: [facility] Transcribe Date/Time: Jul 08 2021 12:46P Dictated by : AMALIA CAN MD This examination was interpreted and the report reviewed and electronically signed by: AMALIA CAN MD on Jul 08 2021 12:49PM [facility] DIVISION OF RADIOLOGY * * *Final [...] intact DIVISION OF RADIOLOGY Provider, Raffi Terry [facility] - 07/08/2021 * * *Final Report* * [...] IMPRESSION: Stable chest. No acute cardiopulmonary process. Handbag Framer: [facility] Transcribe Date/Time: Jul 08 2021 12:46P Dictated by : AMALIA CAN MD This examination was interpreted and the report reviewed and electronically signed by: AMALIA CAN MD on Jul 08 2021 12:49PM EST [facility] Radiology Study observation (narrative) [facility] XR Chest PA and LateralOrder ed By: Ccf Provider on 07-08-2021 [facility] XR Ankle - left AP and [...] Impression: 1. No acute fracture or dislocation. Handbag Framer: NANCY Transcribe Date/Time: Apr 11 2021 1:19P Dictated by : SUSANNE NICHOLE MD This examination was interpreted and the report reviewed and electronically signed by: SUSANNE NICHOLE MD on Apr 11 2021 1:20PM [facility] DIVISION OF RADIOLOGY Provider, [facility] - 04/11/2021 * * *Final Report* * [...] Impression: 1. No acute fracture or dislocation. Handbag Framer: NANCY Transcribe Date/Time: Apr 11 2021 1:19P Dictated by : SUSANNE NICHOLE MD This examination was interpreted and the report reviewed and electronically signed by: SUSANNE NICHOLE MD on Apr 11 2021 1:20PM [facility] Radiology Study observation (narrative) [facility] XR Ankle - left AP and Later al and obliqueOrdered By: [facility] Provider on 04-11-2021 [facility] US DVT LOWER LTon 12-05-2019 US [...] imaged segments of the left lower extremity. Handbag Framer: PSCB Transcribe Date/Time: Dec 05 2019 6:56P Dictated by : SHILA AMIN MD This examination was interpreted and the report reviewed and electronically signed by: SHILA AMIN MD on Dec 05 2019 6:57PM [facility] 07-22-2017 [facility] Telephone ([facility]) --------NORA CAMARILLO ([id number]) 1950 FDate Time Provider Department07/22/17 [facility] [place] [...] alternatives. Patient requested writtendiet suggestions via email ([email or web address]).Mona Swartz, MURRAY, Lida As of Date: 07/22/2017 [...] B Routine general medical examination at a [facility]*INVALID FOR*12/22/2011 Class: Chronic More... Routine gynecological examination [...] More... Status:Closed by AIMEE CAR on 07/22/17 [facility] CNPNon 05-21-2017 CNPN Telephone ([facility] NORA CAMARILLO ([id number]) 1950 FDa Time Provider Hoitjzouug63/10/17 NATALI ROJAS [facility] During your visit today, we recorded the [...] B Routine general medical examination at a [facility]*INVALID FOR*12/22/2011 Class: Chronic More... Routine gynecological examination [...] affect your daily life? -> 0 No Uloggrrw64. How bad is the regurgitation? -> 0 No Woaaahub38. Regurgitation when lying down? -> 0 No Nwwngtvx77. Regurgitation when standing up? -> 0 No Jrovmfdq82. Regurgitation after meals? -> 0 No Sksebqjz01. Does regurgitation change your diet? -> 0 No Mclbzzdi42. Does regurgitation wake you from sleep? -> 0 No SymptomsTOTAL - HEARTBURN 1-9 -> 0TOTAL - REGURG 10-15 -> 0Total -> 016. How satisfied are you with your present condition -> SatisfiedEncounter Number: [id number] Status:Closed by REGINA JORDAN on 05/21/17 [facility] Tamiko 03-03-2017 [facility] Office Visit ([facility]) NORA CAMARILLO ([id number]) 1950 [facility] Provider Department03/03/17 3:30 PM NATALI ROJAS [facility] During your visit today, we recorded the [...] 4 weeks[facility]30 PMNatali Rojas MD 03/03/2017 [...] B Routine general medical examination at a [facility]*INVALID FOR*12/22/2011 Class: Chronic More... Routine gynecological examination [...] of Service: POST-OP VISIT (NO CHARGE) NON-OB [65792]Disposition: Return in about 4 weeks (around 03/31/2017).Follow-up [...] affect your daily life? -> 0 No Aspjsihe61. How bad is the regurgitation? -> 0 No Woxxwpix16. Regurgitation when lying down? -> 0 No Counodtx71. Regurgitation when standing up? -> 0 No Euicxahy45. Regurgitation after meals? -> 0 No Gibridwj40. Does regurgitation change your diet? -> 0 No Vpizdcgl89. Does regurgitation wake you from sleep? -> 0 No SymptomsTOTAL - HEARTBURN 1-9 -> 4TOTAL - REGURG 10-15 -> 0Total -> 416. How satisfied are you with your present condition -> NeutralLetter TextEncounter Number: [id number] Status:Closed by NATALI ROJAS MD on 03/03/17 [facility] PROGRESSon 03-03-2017 PROGRESS HNO ID: [id number] thor: Fadumo Castillo: (none)Author Type: Registered DietitianType: [...] protein and chew everything well.Fadumo Villavicencio RD [facility] PROGRESS HNO ID: [id number] thor: Natali Arciniega: (none)Author Type: PhysicianType: Progress [...] to call sooner for any problems. Normal [facility] Vital Signs Date Time Vital Sign Value Performing Clinician Facility 02-12-2025 15:47-0400 Body temperature 97.8 [degF] Dr. Scot Blank MD Work Phone: [phone] [place] [address] 02-12-2025 15:47-0400 Diastolic blood pressure 87 mm[Hg] Dr. Scot Blank MD Work Phone: [phone] [place] [address] 02-12-2025 15:47-0400 Heart rate 87 /min Dr. Scot Blank MD Work Phone: 02-12-2025 15:47-0400 Respiratory rate 19 /min Dr. Scot Blank MD Work Phone: 02-12-2025 15:47-0400 SaO2% (BldA) [Mass fraction] 100 % Dr. Scot Blank MD Work Phone: 02-12-2025 15:47-0400 Systolic blood pressure 138 mm[Hg] Dr. Scot Blank MD Work Phone: 02-12-2025 14:43-0400 Body height 162.[address] Scot Blank MD Work Phone: [phone])[phone] [place] [address] 02-12-2025 14:43-0400 Body mass index (BMI) [Ratio] 30.9 kg/m2 Dr. Scot Blank MD Work Phone: 02-12-2025 14:43-0400 Body weight 81.[address] Scot Blank MD Work Phone: 01-22-2025 11:57-0400 Body mass index (BMI) [Ratio] 31.56 kg/m2 Jaylin Combs PA-C Work Phone: [facility] 01-22-2025 11:57-0400 Body temperature 98.29 [degF] Jaylin Combs PA-C Work Phone: [facility] 01-22-2025 11:57-0400 Body weight 82.1 kg Jaylin Combs PA-C Work Phone: [facility] 01-22-2025 11:57-0400 Diastolic blood pressure 70 mm[Hg] Jaylin Combs PA-C Work Phone: [facility] 01-22-2025 11:57-0400 Heart rate 69 /min Jaylin Combs PA-C Work Phone: [facility] 01-22-2025 11:57-0400 Respiratory rate 18 /min Jaylin Combs PA-C Work Phone: [facility] 01-22-2025 11:57-0400 SaO2% (BldA) [Mass fraction] 97 % Jaylin Combs PA-C Work Phone: [facility] 01-22-2025 11:57-0400 Systolic blood pressure 110 mm[Hg] Jaylin Combs PA-C Work Phone: [facility] 10-24-2024 13:58-0400 Body mass index (BMI) [Ratio] 31.39 kg/m2 Jaylin Combs PA-C Work Phone: [facility] 10-24-2024 13:58-0400 Body temperature 97.5 [degF] Jaylin Combs PA-C Work Phone: [facility] 10-24-2024 13:58-0400 Body weight 81.65 kg Jaylin Combs PA-C Work Phone: [facility] 10-24-2024 13:58-0400 Diastolic blood pressure 78 mm[Hg] Jaylin Combs PA-C Work Phone: [facility] 10-24-2024 13:58-0400 Heart rate 71 /min Jaylin Combs PA-C Work Phone: [facility] 10-24-2024 13:58-0400 Respiratory rate 16 /min Jaylin Combs PA-C Work Phone: [facility] 10-24-2024 13:58-0400 SaO2% (BldA) [Mass fraction] 96 % Jaylin Combs PA-C Work Phone: [facility] 10-24-2024 13:58-0400 Systolic blood pressure 128 mm[Hg] Jaylin Combs PA-C Work Phone: [facility] 08-11-2024 15:19-0500 Body temperature 97.7 [degF] Jazzy Romero-Popeye PT Work Phone: [facility] 08-11-2024 15:19-0500 Diastolic blood pressure 66 mm[Hg] Jazzy Romero-Popeye PT Work Phone: [facility] 08-11-2024 15:19-0500 Heart rate 67 /min Jazzy Romero-Popeye PT Work Phone: [facility] 08-11-2024 15:19-0500 Respiratory rate 16 /min Jazzy Romero-Nye PT Work Phone: [facility] 08-11-2024 15:19-0500 SaO2% (BldA) [Mass fraction] 97 % Jazzy Romero-Popeye PT Work Phone: [facility] 08-11-2024 15:19-0500 Systolic blood pressure 135 mm[Hg] Jazzy Anguloderman-Popeye PT Work Phone: [facility] 08-10-2024 13:25-0500 Body temperature 97.81 [degF] Sallie Giuliano PROPERTY SITE MANAGER Work Phone: [facility] 08-10-2024 13:25-0500 Diastolic blood pressure 86 mm[Hg] Sallie Giuliano PROPERTY SITE MANAGER Work Phone: [facility] 08-10-2024 13:25-0500 Heart rate 80 /min Sallie Giuliano PROPERTY SITE MANAGER Work Phone: [facility] 08-10-2024 13:25-0500 Respiratory rate 18 /min Sallie Giuliano PROPERTY SITE MANAGER Work Phone: [facility] 08-10-2024 13:25-0500 SaO2% (BldA) [Mass fraction] 99 % Sallie Giuliano PROPERTY SITE MANAGER Work Phone: [facility] 08-10-2024 13:25-0500 Systolic blood pressure 126 mm[Hg] Sallie Giuliano PROPERTY SITE MANAGER Work Phone: [facility] 08-08-2024 11:53-0500 Body temperature 97.59 [degF] Sallie Giuliano PROPERTY SITE MANAGER Work Phone: [facility] 08-08-2024 11:53-0500 Diastolic blood pressure 60 mm[Hg] Sallie Giuliano PROPERTY SITE MANAGER Work Phone: [facility] 08-08-2024 11:53-0500 Heart rate 78 /min Sallie Giuliano PROPERTY SITE MANAGER Work Phone: [facility] 08-08-2024 11:53-0500 Respiratory rate 18 /min Sallie Giuliano PROPERTY SITE MANAGER Work Phone: [facility] 08-08-2024 11:53-0500 SaO2% (BldA) [Mass fraction] 96 % Sallie Giuliano PROPERTY SITE MANAGER Work Phone: [facility] 08-08-2024 11:53-0500 Systolic blood pressure 124 mm[Hg] Sallie Giuliano PROPERTY SITE MANAGER Work Phone: [facility] 08-04-2024 11:15-0500 Heart rate 77 /min Sallie Giuliano PROPERTY SITE MANAGER Work Phone: [facility] 08-04-2024 11:15-0500 SaO2% (BldA) [Mass fraction] 97 % Sallie Giuliano PROPERTY SITE MANAGER Work Phone: [facility] 08-04-2024 10:35-0500 Body temperature 97.9 [degF] Sallie Giuliano PROPERTY SITE MANAGER Work Phone: [facility] 08-04-2024 10:35-0500 Diastolic blood pressure 66 mm[Hg] Sallie Giuliano PROPERTY SITE MANAGER Work Phone: [facility] 08-04-2024 10:35-0500 Respiratory rate 18 /min Sallie Giuliano PROPERTY SITE MANAGER Work Phone: [facility] 08-04-2024 10:35-0500 Systolic blood pressure 118 mm[Hg] Sallie Giuliano PROPERTY SITE MANAGER Work Phone: [facility] 08-02-2024 10:13-0500 Body temperature 97.11 [degF] Sallie Giuliano PROPERTY SITE MANAGER Work Phone: [facility] 08-02-2024 10:13-0500 Diastolic blood pressure 68 mm[Hg] Sallie Giuliano PROPERTY SITE MANAGER Work Phone: [facility] 08-02-2024 10:13-0500 Heart rate 80 /min Sallie Giuliano PROPERTY SITE MANAGER Work Phone: [facility] 08-02-2024 10:13-0500 Respiratory rate 18 /min Sallie Giuliano PROPERTY SITE MANAGER Work Phone: [facility] 08-02-2024 10:13-0500 SaO2% (BldA) [Mass fraction] 98 % Sallie Giuliano PROPERTY SITE MANAGER Work Phone: [facility] 08-02-2024 10:13-0500 Systolic blood pressure 130 mm[Hg] Sallie Giuliano PROPERTY SITE MANAGER Work Phone: [facility] 07-31-2024 13:23-0500 Body temperature 97.81 [degF] Sallie Giuliano PROPERTY SITE MANAGER Work Phone: [facility] 07-31-2024 13:23-0500 Diastolic blood pressure 66 mm[Hg] Sallie Giuliano PROPERTY SITE MANAGER Work Phone: [facility] 07-31-2024 13:23-0500 Heart rate 74 /min Sallie Giuliano PROPERTY SITE MANAGER Work Phone: [facility] 07-31-2024 13:23-0500 Respiratory rate 18 /min Sallie Giuliano PROPERTY SITE MANAGER Work Phone: [facility] 07-31-2024 13:23-0500 SaO2% (BldA) [Mass fraction] 97 % Sallie Giuliano PROPERTY SITE MANAGER Work Phone: [facility] 07-31-2024 13:23-0500 Systolic blood pressure 130 mm[Hg] Sallie Giuliano PROPERTY SITE MANAGER Work Phone: [facility] 07-28-2024 14:35-0500 Body temperature 97.81 [degF] Jazzy Pereira PT Work Phone: [facility] 07-28-2024 14:35-0500 Diastolic blood pressure 68 mm[Hg] Jazzy Romero-Popeye PT Work Phone: [facility] 07-28-2024 14:35-0500 Heart rate 81 /min Jazzy Pereira PT Work Phone: [facility] 07-28-2024 14:35-0500 Respiratory rate 16 /min Jazzy Pereira PT Work Phone: [facility] 07-28-2024 14:35-0500 SaO2% (BldA) [Mass fraction] 98 % Jazzy Romero-Nye PT Work Phone: [facility] 07-28-2024 14:35-0500 Systolic blood pressure 140 mm[Hg] Jazzy Sahaman-Nye PT Work Phone: [facility] 06-30-2024 09:08-0500 Body height 161.3 cm [facility] 1 Work Phone: [facility] 06-30-2024 09:08-0500 Body mass index (BMI) [Ratio] 32.54 kg/m2 Pacc 1 Work Phone: [facility] 06-30-2024 09:08-0500 Body temperature 97.81 [degF] Pacc 1 Work Phone: [facility] 06-30-2024 09:08-0500 Body weight 84.64 kg Pacc 1 Work Phone: [facility] 06-30-2024 09:08-0500 Diastolic blood pressure 88 mm[Hg] Pacc 1 Work Phone: [facility] 06-30-2024 09:08-0500 Heart rate 67 /min Pacc 1 Work Phone: [facility] 06-30-2024 09:08-0500 Respiratory rate 21 /min Pacc 1 Work Phone: [facility] 06-30-2024 09:08-0500 SaO2% (BldA) [Mass fraction] 96 % Pac 1 Work Phone: [facility] 06-30-2024 09:08-0500 Systolic blood pressure 130 mm[Hg] Pac 1 Work Phone: [facility] 04-25-2024 08:16-0400 Diastolic blood pressure 72 mm[Hg] Lidya Pena DO Work Phone: [facility] 04-25-2024 08:16-0400 Heart rate 78 /min Lidya Pena DO Work Phone: [facility] 04-25-2024 08:16-0400 SaO2% (BldA) [Mass fraction] 95 % Lidya Pena DO Work Phone: [facility] 04-25-2024 08:16-0400 Systolic blood pressure 135 mm[Hg] Lidya Pena DO Work Phone: [facility] 03-24-2024 10:02-0400 Body height 161.5 cm Jaylin Combs PA-C Work Phone: [facility] 03-24-2024 10:02-0400 Body mass index (BMI) [Ratio] 32.87 kg/m2 Jaylin TAYLOR-C Work Phone: [facility] 03-24-2024 10:02-0400 Body temperature 97.39 [degF] Jaylin Combs PA-C Work Phone: [facility] 03-24-2024 10:02-0400 Body weight 85.73 kg Jaylin Combs PA-C Work Phone: [facility] 03-24-2024 10:02-0400 Diastolic blood pressure 70 mm[Hg] Jaylin Combs PA-C Work Phone: [facility] 03-24-2024 10:02-0400 Heart rate 74 /min Jaylin Combs PA-C Work Phone: [facility] 03-24-2024 10:02-0400 Respiratory rate 18 /min Jaylin TAYLOR-C Work Phone: [facility] 03-24-2024 10:02-0400 SaO2% (BldA) [Mass fraction] 95 % Jaylin TAYLOR-C Work Phone: [facility] 03-24-2024 10:02-0400 Systolic blood pressure 136 mm[Hg] Jaylin TAYLOR-C Work Phone: [facility] 02-15-2024 10:51-0400 Body mass index (BMI) [Ratio] 33.13 kg/m2 Pulm Wstr Work Phone: [facility] 02-15-2024 10:51-0400 Body weight 84.82 kg Pulm Wstr Work Phone: [facility] 02-15-2024 10:36-0400 Body mass index (BMI) [Ratio] 33.13 kg/m2 Lorenza Reza MD Work Phone: [facility] 02-15-2024 10:36-0400 Body weight 84.82 kg Lorenza Reza MD Work Phone: [facility] 02-15-2024 10:36-0400 Diastolic blood pressure 76 mm[Hg] Lorenza Reza MD Work Phone: [facility] 02-15-2024 10:36-0400 Heart rate 72 /min Lorenza Reza MD Work Phone: [facility] 02-15-2024 10:36-0400 Respiratory rate 17 /min Lorenza Reza MD Work Phone: [facility] 02-15-2024 10:36-0400 SaO2% (BldA) [Mass fraction] 95 % Lorenza Reza MD Work Phone: [facility] 02-15-2024 10:36-0400 Systolic blood pressure 130 mm[Hg] Lorenza Reza MD Work Phone: [facility] 01-28-2024 11:10-0400 Diastolic blood pressure 80 mm[Hg] Shelley Haagen [employer]VERTISING [employer]NS[employer].MEDICAL ENGINEER Work Phone: [facility] 01-28-2024 11:10-0400 Heart rate 76 /min Shelley Haagen [employer]VERTISING [employer].MEDICAL ENGINEER Work Phone: [facility] 01-28-2024 11:10-0400 Respiratory rate 16 /min Shelley Haagen [employer]VERTISING INTERNS[employer].MEDICAL ENGINEER Work Phone: [facility] 01-28-2024 11:10-0400 SaO2% (BldA) [Mass fraction] 93 % Shelley Haagen [employer]VERTISING INTERNSH[employer].MEDICAL ENGINEER Work Phone: [facility] 01-28-2024 11:10-0400 Systolic blood pressure 142 mm[Hg] Shelley Haagen [employer]VERTISING INTERNSH[employer].MEDICAL ENGINEER Work Phone: [facility] 11-09-2023 13:44-0400 Body mass index (BMI) [Ratio] 33.48 kg/m2 Jaylin Combs PA-C Work Phone: [facility] 11-09-2023 13:44-0400 Body temperature 98.01 [degF] Jaylin Combs PA-C Work Phone: [facility] 11-09-2023 13:44-0400 Body weight 85.73 kg Jaylin Combs PA-C Work Phone: [facility] 11-09-2023 13:44-0400 Diastolic blood pressure 86 mm[Hg] Jaylin Combs PA-C Work Phone: [facility] 11-09-2023 13:44-0400 Heart rate 87 /min Jaylin Combs PA-C Work Phone: [facility] 11-09-2023 13:44-0400 Respiratory rate 24 /min Jaylin Combs PA-C Work Phone: [facility] 11-09-2023 13:44-0400 SaO2% (BldA) [Mass fraction] 96 % Jaylin Combs PA-C Work Phone: [facility] 11-09-2023 13:44-0400 Systolic blood pressure 128 mm[Hg] Jaylin Combs PA-C Work Phone: [facility] 10-04-2023 09:37-0400 Body temperature 98.01 [degF] Jaylin Combs PA-C Work Phone: [facility] 10-04-2023 09:37-0400 Body weight 85.73 kg Jaylin Combs PA-C Work Phone: [facility] 10-04-2023 09:37-0400 Diastolic blood pressure 84 mm[Hg] Jaylin oCmbs PA-C Work Phone: [facility] 10-04-2023 09:37-0400 Heart rate 69 /min Jaylin Combs PA-C Work Phone: [facility] 10-04-2023 09:37-0400 Respiratory rate 18 /min Jaylin Combs PA-C Work Phone: [facility] 10-04-2023 09:37-0400 SaO2% (BldA) [Mass fraction] 95 % Jaylin Combs PA-C Work Phone: [facility] 10-04-2023 09:37-0400 Systolic blood pressure 136 mm[Hg] Jaylin Combs PA-C Work Phone: [facility] 10-01-2023 15:27-0400 Body height 160 cm Talya Satya [employer]ISING [employer].MEDICAL ENGINEER Work Phone: [facility] 10-01-2023 15:27-0400 Body weight 84.91 kg Talya [place] [employer].MEDICAL ENGINEER Work Phone: [facility] 10-01-2023 15:27-0400 Diastolic blood pressure 72 mm[Hg] Talya Satya [employer]VERTISING [employer].MEDICAL ENGINEER Work Phone: [facility] 10-01-2023 15:27-0400 Systolic blood pressure 142 mm[Hg] Talya [place] [employer]VERTISING [employer].MEDICAL ENGINEER Work Phone: [facility] 09-06-2023 11:29-0500 Body temperature 97.9 [degF] Jaylin Combs PA-C Work Phone: [facility] 09-06-2023 11:29-0500 Body weight 84.82 kg Jaylin Combs PA-C Work Phone: [facility] 09-06-2023 11:29-0500 Diastolic blood pressure 76 mm[Hg] Jaylin Combs PA-C Work Phone: [facility] 09-06-2023 11:29-0500 Heart rate 95 /min Jaylin Combs PA-C Work Phone: [facility] 09-06-2023 11:29-0500 Respiratory rate 22 /min Jaylin Combs PA-C Work Phone: [facility] 09-06-2023 11:29-0500 SaO2% (BldA) [Mass fraction] 93 % Jaylin Combs PA-C Work Phone: [facility] 09-06-2023 11:29-0500 Systolic blood pressure 110 mm[Hg] Jaylin Combs PA-C Work Phone: [facility] 09-03-2023 11:27-0500 Body temperature 98.71 [degF] Jaylin Combs PA-C Work Phone: [facility] 09-03-2023 11:27-0500 Body weight 85.73 kg Jaylin Combs PA-C Work Phone: [facility] 09-03-2023 11:27-0500 Diastolic blood pressure 70 mm[Hg] Jaylin Combs PA-C Work Phone: [facility] 09-03-2023 11:27-0500 Heart rate 95 /min Jaylin Combs PA-C Work Phone: [facility] 09-03-2023 11:27-0500 Respiratory rate 20 /min Jaylin Combs PA-C Work Phone: [facility] 09-03-2023 11:27-0500 SaO2% (BldA) [Mass fraction] 96 % Jaylin Combs PA-C Work Phone: [facility] 09-03-2023 11:27-0500 Systolic blood pressure 138 mm[Hg] Jaylin Combs PA-C Work Phone: [facility] 04-06-2023 09:34-0400 Body temperature 97.5 [degF] Jaylin Combs PA-C Work Phone: [facility] 04-06-2023 09:34-0400 Body weight 86.18 kg Jaylin Combs PA-C Work Phone: [facility] 04-06-2023 09:34-0400 Diastolic blood pressure 80 mm[Hg] Jaylin Combs PA-C Work Phone: [facility] 04-06-2023 09:34-0400 Heart rate 64 /min Jaylin Combs PA-C Work Phone: [facility] 04-06-2023 09:34-0400 Respiratory rate 18 /min Jaylin Combs PA-C Work Phone: [facility] 04-06-2023 09:34-0400 Systolic blood pressure 110 mm[Hg] Jaylin Combs PA-C Work Phone: [facility] 03-03-2023 12:57-0400 Body height 162.8 cm Jaylin Combs PA-C Work Phone: [facility] 03-03-2023 12:57-0400 Body temperature 97.81 [degF] Jaylin Combs PA-C Work Phone: [facility] 03-03-2023 12:57-0400 Body weight 86.18 kg Jaylin Combs PA-C Work Phone: [facility] 03-03-2023 12:57-0400 Diastolic blood pressure 80 mm[Hg] Jaylin Combs PA-C Work Phone: [facility] 03-03-2023 12:57-0400 Heart rate 73 /min Jaylin Combs PA-C Work Phone: [facility] 03-03-2023 12:57-0400 Respiratory rate 18 /min Jaylin Combs PA-C Work Phone: [facility] 03-03-2023 12:57-0400 Systolic blood pressure 120 mm[Hg] Jaylin Combs PA-C Work Phone: [facility] 10-19-2022 11:38-0400 Body temperature 98.2 [degF] Jaylin Combs PA-C Work Phone: [facility] 10-19-2022 11:38-0400 Body weight 87.09 kg Jaylin Combs PA-C Work Phone: [facility] 10-19-2022 11:38-0400 Diastolic blood pressure 76 mm[Hg] Jaylin Combs PA-C Work Phone: [facility] 10-19-2022 11:38-0400 Heart rate 80 /min Jaylin Combs PA-C Work Phone: [facility] 10-19-2022 11:38-0400 Respiratory rate 18 /min Jaylin Combs PA-C Work Phone: [facility] 10-19-2022 11:38-0400 SaO2% (BldA) [Mass fraction] 96 % Jaylin Combs PA-C Work Phone: [facility] 10-19-2022 11:38-0400 Systolic blood pressure 126 mm[Hg] Jaylin Combs PA-C Work Phone: [facility] 08-19-2022 13:11-0500 Diastolic blood pressure 73 mm[Hg] Jaylin Combs PA-C Work Phone: [facility] 08-19-2022 13:11-0500 Systolic blood pressure 139 mm[Hg] Jaylin Combs PA-C Work Phone: [facility] 08-19-2022 12:24-0500 Body weight 86.91 kg Jaylin Combs PA-C Work Phone: [facility] 08-19-2022 12:24-0500 Heart rate 52 /min Jaylin Combs PA-C Work Phone: [facility] 08-19-2022 12:24-0500 Respiratory rate 24 /min Jaylin Combs PA-C Work Phone: [facility] 08-19-2022 12:24-0500 SaO2% (BldA) [Mass fraction] 96 % Jaylin Combs PA-C Work Phone: [facility] 02-12-2022 11:15-0400 Diastolic blood pressure 78 mm[Hg] Scot Blank MD Work Phone: [facility] 02-12-2022 11:15-0400 Systolic blood pressure 128 mm[Hg] Scot Blank MD Work Phone: [facility] 02-12-2022 10:13-0400 Body height 161.9 cm Scot Blank MD Work Phone: [facility] 02-12-2022 10:13-0400 Body weight 83.92 kg Scot Blank MD Work Phone: [facility] 02-12-2022 10:13-0400 Heart rate 70 /min Scot Blank MD Work Phone: [facility] 02-12-2022 10:13-0400 Respiratory rate 16 /min Scot Blank MD Work Phone: [facility] 12-22-2021 16:50-0400 Body temperature 97.8 [degF] [facility] Work Phone: 12-22-2021 16:50-0400 Diastolic blood pressure 82 mm[Hg] Work Phone: 12-22-2021 16:50-0400 Heart rate 74 /min [facility] Work Phone: 12-22-2021 16:50-0400 Respiratory rate 18 /min [facility] Work Phone: 12-22-2021 16:50-0400 SaO2% (BldA) [Mass fraction] 98 % Work Phone: 12-22-2021 16:50-0400 Systolic blood pressure 157 mm[Hg] Work Phone: 12-22-2021 12:49-0400 Body height 162.56 cm [facility] Work Phone: 12-22-2021 12:49-0400 Body mass index (BMI) [Ratio] 32.9 kg/m2 Work Phone: 12-22-2021 12:49-0400 Body weight 87.1 kg [facility] Work Phone: 10-13-2021 13:38-0400 Body temperature 97.9 [degF] Jaylin TAYLOR-C Work Phone: [facility] 10-13-2021 13:38-0400 Diastolic blood pressure 78 mm[Hg] Jaylin TAYLOR-C Work Phone: [facility] 10-13-2021 13:38-0400 Heart rate 84 /min Jaylin Combs PA-C Work Phone: [facility] 10-13-2021 13:38-0400 Respiratory rate 18 /min Jaylin Combs PA-C Work Phone: [facility] 10-13-2021 13:38-0400 SaO2% (BldA) [Mass fraction] 98 % Jaylin Combs PA-C Work Phone: [facility] 10-13-2021 13:38-0400 Systolic blood pressure 130 mm[Hg] Jaylin TAYLOR-C Work Phone: [facility] Encounters Encounter Date Encounter Type Care [...] 01-22-2025 Subsequent hospital visit by physician Xr [facility] [place] Work Phone: Radiology Comment on above: Chronic pain of left ankle [M25.572, G89.29] Start: 01-22-2025 End: 01-22-2025 Office outpatient visit 15 minutes Jaylin Combs PA-C Work Phone: Family Medicine [place] Comment on above: Chronic pain of left ankle (Primary Dx); Swelling of ankle joint, left Start: 01-22-2025 End: 01-22-2025 ambulatory JAYLIN COMBS Facility:[facility] Start: 01-18-2025 End: 01-18-2025 Refill Lorenza Reza MD Work Phone: Pulmonary Medicine Comment on above: Refill Request Start: 01-16-2025 End: 01-18-2025 Refill Scot Blank MD Work Phone: [facility] [place] Comment on above: Refill Request Start: 11-14-2024 End: 11-14-2024 Refill Scot Blank MD Work Phone: [facility] [place] Comment on above: Refill Request Start: 10-25-2024 End: 10-25-2024 Telephone encounter Jaylin Combs PA-C Work Phone: [facility] [place] Comment on above: Prescription (Medrol pack) Start: 10-24-2024 End: 10-24-2024 ambulatory JAYLIN COMBS Facility:[facility] Start: 10-24-2024 End: 10-24-2024 Patient encounter procedure Jaylin Combs PA-C Work Phone: [facility] [place] Comment on above: Mixed hyperlipidemia (Primary Dx); Essential tremor; Vitamin B12 deficiency; Elevated fasting blood sugar; Age-related osteoporosis without current pathological fracture; Gastroesophageal reflux disease with esophagitis without hemorrhage; Mild persistent asthma without complication (HCC); Vitamin D deficiency; Mixed incontinence; May-Thurner syndrome; Acute left-sided low back pain without sciatica Start: 10-16-2024 End: 10-16-2024 ambulatory BRYSON DHILLON Facility:[facility] Start: 10-16-2024 End: 10-16-2024 Patient encounter procedure Bryson Dhillon MD Work Phone: Orthopaedics Comment on above: S/P total knee arthr oplasty, right (Primary Dx); Back strain, initial encounter Start: 10-04-2024 End: 12-04-2024 Follow-up encounter Suzi Dobson MD Work Phone: OB/Gynecology Start: 10-03-2024 End: 10-03-2024 ambulatory [facility] Facility:[facility] Start: 10-03-2024 Encounter for gynecological examination (general) (routine) with abnormal findings BRYSON DHILLON [facility] Start: 10-03-2024 End: 10-03-2024 Patient encounter status Screen [facility] Start: 10-03-2024 End: 10-03-2024 Subsequent hospital visit by physician Screen Mammo [facility] Mammogram Comment on above: Encounter for gyneco logical examination with abnormal finding [Z01.411] Start: 09-25-2024 End: 10-04-2024 Follow-up encounter Jaylin Combs PA-C Work Phone: [facility] Comment on above: Results Start: 09-18-2024 End: 09-18-2024 Telephone encounter Bryson Dhillon MD Work Phone: Orthopaedics Comment on above: Patient Question Start: 09-18-2024 End: 09-18-2024 ambulatory Xander Wu PT Work Phone: [facility] Comment on above: S/P total knee arthr oplasty, left (Primary Dx) Start: 09-15-2024 End: 09-15-2024 ambulatory Xander Wu PT Work Phone: [facility] Comment on above: S/P total knee arthr oplasty, left (Primary Dx) Start: 09-11-2024 End: 09-11-2024 ambulatory Xander Wu PT Work Phone: [facility] Comment on above: S/P total knee arthr oplasty, left (Primary Dx) Start: 09-08-2024 End: 09-08-2024 ambulatory Lissa O'Jacques PT [facility] Comment on above: S/P total knee arthr oplasty, left (Primary Dx) Start: 09-05-2024 End: 09-06-2024 Refill Scot Blank MD Work Phone: [address] [place] [address] Comment on above: Refill Request Start: 09-04-2024 End: 09-04-2024 ambulatory Xander Wu PT Work Phone: [facility] Comment on above: S/P total knee arthr oplasty, left (Primary Dx) Start: 09-04-2024 End: 09-04-2024 Patient encounter procedure Bryson Dhillon MD Work Phone: Orthopaedics Comment on above: S/P total knee arthr oplasty, right (Primary Dx) Start: 08-28-2024 End: 08-28-2024 ambulatory Lissa O'Jacques PT [facility] Comment on above: S/P total knee arthr oplasty, left (Primary Dx) Start: 08-21-2024 End: 08-21-2024 ambulatory Lissa O'Jacques PT [facility] Comment on above: S/P total [...] Home visit Jazzy Pereira PT Work Phone: [facility] Comment on above: PT AGENCY DC W VISIT Start: 08-10-2024 End: 08-10-2024 Home visit Sallie Hi PROPERTY SITE MANAGER Work Phone: [facility] Comment on above: PROPERTY SITE MANAGER ROUTINE Start: 08-08-2024 End: 08-08-2024 Home visit Sallie Giuliano PROPERTY SITE MANAGER Work Phone: [facility] Comment on above: PROPERTY SITE MANAGER ROUTINE Start: 08-07-2024 End: 08-07-2024 Patient encounter procedure Rebekah Eduardo PA-C Work Phone: Orthopaedics Comment on above: S/P total knee arthr oplasty, right Start: 08-07-2024 End: 08-07-2024 ambulatory BRYSON DHILLON Facility:[facility] Start: 08-07-2024 End: 08-07-2024 Subsequent hospital visit by physician Alejo [facility] [place] Kay Work Phone: Radiology Comment on above: S/P total knee arthr oplasty, right [Z96.651] Start: 08-04-2024 End: 08-04-2024 Orders Only Rebekah Eduardo PA-C Work Phone: Orthopaedics Comment on above: S/P total knee arthr oplasty, right (Primary Dx) PROPERTY SITE MANAGER ROUTINE Start: 08-02-2024 End: 08-02-2024 Telephone encounter Sallie Hi PROPERTY SITE MANAGER Work Phone: [facility] Comment on above: Home Care (Bandage r emoval) Start: 08-02-2024 End: 08-02-2024 Home visit Sallie Hi PROPERTY SITE MANAGER Work Phone: [facility] Comment on above: PROPERTY SITE MANAGER ROUTINE Start: 08-01-2024 End: 08-01-2024 Refill Bryson Dhillon MD Work Phone: Orthopaedics Comment on above: Refill Request Start: 07-31-2024 End: 07-31-2024 Home visit Gaviota Holt RN Work Phone: [facility] Comment on above: CARE COORDINATION PROPERTY SITE MANAGER ROUTINE Start: 07-28-2024 End: 07-28-2024 Home visit Jazzy Pereira PT Work Phone: [facility] Comment on above: PT SOC Start: 07-27-2024 End: 07-27-2024 Telephone encounter Dawn Vincent PSS [facility] Comment on above: Home Care (CONFIRMAT ION CALL) Start: 07-26-2024 End: 07-27-2024 ambulatory SCOT BLANK Facility:[facility] Start: 07-24-2024 End: 07-24-2024 Telephone encounter Bryson Dhillon MD Work Phone: Orthopaedics Start: 07-07-2024 ambulatory SCOT Allen ty:[facility] Start: 07-07-2024 End: 07-07-2024 Subsequent hospital visit by physician [facility] Work Phone: Cardiology Lab Comment on above: Abnormal electrocard iogram [R94.31] Start: 07-07-2024 ambulatory SCOT Allen ty:[facility] Start: 07-07-2024 End: 07-07-2024 Subsequent hospital visit by physician [facility] 2 Work Phone: Molecular Imaging Comment on above: Abnormal electrocard iogram [R94.31] Start: 07-06-2024 End: 07-06-2024 Telephone encounter Shakila Sotelo RN Cardiology Lab Comment on above: Reminder Call Start: 06-30-2024 End: 06-30-2024 [facility] Facility:[facility] Start: 06-30-2024 Encounter for other preprocedural examination BRYSON DHILLON [facility] Start: 06-30-2024 End: 06-30-2024 Admission to establishment [facility] 1 Work Phone: Pre Anesthesia Start: 06-30-2024 End: 06-30-2024 [facility] Facility:[facility] Start: 06-30-2024 End: 06-30-2024 Anesthesia consultation [facility] Work Phone: Pre Anesthesia Comment on [...] examination done Pac [place] 1 Work Phone: [facility] Work Phone: Start: 06-23-2024 ambulatory SCOT Allen ty:[facility] Start: 06-23-2024 End: 06-23-2024 Subsequent hospital visit by physician Ct [facility] Radiology Comment on above: Chronic pain of righ t knee [M25.561, G89.29] Start: 06-14-2024 End: 06-14-2024 Telephone encounter Bryson Dhillon MD Work Phone: Orthopaedics Comment on above: Schedule Surgery Pre-Op Teaching Start: 06-12-2024 End: 06-12-2024 ambulatory BRYSON DHILLON Facility:[facility] Start: 06-12-2024 End: 06-12-2024 Patient encounter procedure Bryson Dhillon MD Work Phone: Orthopaedics Comment on above: Chronic pain of righ t knee (Primary Dx); Primary osteoarthritis of right knee Start: 06-09-2024 End: 06-09-2024 Telephone encounter Scot Blank MD Work Phone: [facility] Comment on above: request new handicap placfarhan Refill Request Start: 05-29-2024 End: 05-29-2024 ambulatory REBEKAH VETOVITZ Facility:[facility] Start: 05-29-2024 End: 05-29-2024 Patient encounter procedure Rebekah Vetovitz PA-C Work Phone: Orthopaedics Comment on above: Other secondary oste oarthritis of right knee (Primary Dx) Start: 05-17-2024 End: 05-17-2024 ambulatory REBEKAH VETOVITZ Facility:[facility] Start: 05-17-2024 End: 05-17-2024 Subsequent hospital visit by physician [employer] [facility] (I-Stat/1.5t) Work Phone: Radiology Comment on above: Other secondary oste oarthritis of right knee [M17.5] Start: 05-15-2024 End: 05-15-2024 ambulatory REBEKAH VETOVITZ Facility:[facility] Start: 05-15-2024 End: 05-15-2024 Patient encounter procedure Rebekah Vetovitz PA-C Work Phone: Orthopaedics Comment on above: Other secondary oste oarthritis of right knee (Primary Dx) Start: 04-26-2024 End: 04-26-2024 Refill Scot Blank MD Work Phone: [facility] Comment on above: Refill Request Start: 04-25-2024 End: 04-25-2024 ambulatory LIDYA PENA Facility:[facility] Start: 04-25-2024 End: 04-25-2024 Patient encounter procedure Lidya Pena DO Work Phone: Vascular Surgery Comment on above: May-Thurner syndrome Start: 04-14-2024 End: 04-14-2024 Telephone encounter Jaylin Combs PA-C Work Phone: [facility] [place] Comment on above: Results Start: 04-13-2024 End: 04-13-2024 ambulatory JAYLIN GARRET Facility:[facility] Start: 03-24-2024 End: 03-24-2024 ambulatory JAYLIN GARRET Facility:[facility] Start: 03-24-2024 End: 03-24-2024 Patient encounter procedure Jaylin Combs PA-C Work Phone: [facility] [place] Comment on above: [facility], [facility] (Primary Dx); Advance directive discussed [...] Start: 03-03-2024 End: 03-03-2024 ambulatory UNKNOWN PROVIDER Facility:[facility] Start: 03-03-2024 End: 03-03-2024 Subsequent hospital visit by physician Radio [facility] Work Phone: Radiology Comment on above: Pain [R52] Start: 02-23-2024 Orders Only Garth agudelo PA-C Work Phone: Orthopaedics Comment on above: Right knee pain, uns pecified chronicity (Primary Dx) Start: 02-21-2024 Telephone encounter Jaylin velasco PA-C Work Phone: [facility] [place] Comment on above: Results Start: 02-15-2024 End: 02-15-2024 ambulatory JAYLIN COMBS Facility:[facility] Start: 02-15-2024 End: 02-15-2024 ambulatory Pulm Lab [facility] Work Phone: P[facility] Comment on above: Spirometry Start: 02-15-2024 End: 02-15-2024 Patient encounter procedure Pulm Lab [facility] Work Phone: [facility] Comment on above: Cough variant asthma (Primary Dx); Multiple allergies Start: 01-28-2024 End: 01-28-2024 Patient encounter procedure Shelley Talavera APRN.MEDICAL ENGINEER Work Phone: [facility] [place] Comment on above: Inflamed skin tag (P rimary Dx); Primary insomnia Start: 01-10-2024 Refill Jaylin De Los Santos on PA-C Work Phone: [facility] Comment on above: Refill Request (Kourtney ent requesting this RX until she sees Pulmonology on 02/15/2024 please) Start: 11-09-2023 End: 11-09-2023 Patient encounter procedure Jaylin Combs PA-C Work Phone: [facility] [place] Comment on above: Bronchitis (Primary Dx); Persistent cough; Mild persistent asthma without complication Start: 11-08-2023 ambulatory Scot cortez MD Work Phone: [facility] [place] Comment on above: Cough (Drainage) Start: 10-05-2023 Refill Jaylin De Los Santos on PA-C Work Phone: [facility] [place] Start: 10-04-2023 End: 10-04-2023 Patient encounter procedure Jaylin Combs PA-C Work Phone: [facility] [place] Comment on above: Post-nasal drip (Angelia lima Dx); Primary insomnia Start: 10-01-2023 End: 10-01-2023 Patient encounter procedure Talya May APRN.MEDICAL ENGINEER Work Phone: OB/Gynecology Comment on above: Encounter for gyneco logical examination with abnormal finding (Primary Dx); Encounter for screening mammogram for malignant neoplasm of breast Start: 10-01-2023 End: 10-01-2023 Patient encounter status Talya May SHANAE Work Phone: [facility] Start: 09-07-2023 Telephone encounter Jaylin velasco PA-C Work Phone: [facility] [place] Comment on above: Results Start: 09-06-2023 End: 09-06-2023 Subsequent hospital visit by physician Xr [facility] [place] Work Phone: Radiology Comment on above: Bronchitis [J40] Start: 09-06-2023 End: 09-06-2023 Patient encounter procedure Jaylin Combs PA-C Work Phone: [facility] [place] Comment on above: Bronchitis (Primary Dx); Moderate persistent asthma with (acute) exacerbation Start: 09-03-2023 End: 09-03-2023 Patient encounter procedure Jaylin Combs PA-C Work Phone: [facility] [place] Comment on above: Mixed [...] procedure Jaylin Combs PA-C Work Phone: [facility] [place] Comment on above: Senile osteoporosis (Primary Dx); Chronic sinusitis, unspecified location; Chronic cough Start: 03-20-2023 Telephone encounter Jaylin velasco PA-C Work Phone: [facility] [place] Comment on above: Results Start: 03-17-2023 End: 03-17-2023 Subsequent hospital visit by physician Bone Density [facility] Work Phone: Radiology Comment on above: Asymptomatic postmen opausal status [Z78.0] Start: 03-04-2023 Telephone encounter Scot Blank MD Work Phone: [facility] Comment on above: Insurance Authorizat ion (Pantoprazole ) Start: 03-03-2023 End: 03-03-2023 Patient encounter procedure Jaylin Combs PA-C Work Phone: [facility] Comment on above: Medicare annual well ness visit, subsequent (Primary Dx); Advance directive discussed with patient; Mixed hyperlipidemia; Elevated fasting blood sugar; Mild persistent asthma without complication; Primary insomnia; Asymptomatic postmenopausal status; Senile osteoporosis Start: 01-25-2023 Telephone encounter Scot Blank MD Work Phone: [facility] Comment on above: Patient Request Start: 12-25-2022 Encounter for other preprocedural examination Haritha Egan Start: 12-18-2022 End: 12-18-[address] Gina Gibson Facility: Start: 12-08-2022 End: 12-08-2022 ambulatory Haritha Egan Facility: Start: 11-16-2022 End: 11-16-[address] Gina Gibson Work Phone: Start: 11-16-2022 End: 11-16-2022 Patient encounter procedure -Ultrasound, [facility] Start: 10-19-2022 Telephone encounter Jaylin velasco PA-C Work Phone: [facility] Comment on above: Results Start: 10-19-2022 End: 10-19-2022 Subsequent hospital visit by physician Xr [facility] Work Phone: Radiology Comment on above: Subacute cough [R05. 2] Start: 10-19-2022 End: 10-19-2022 Patient encounter procedure Jaylin Combs PA-C Work Phone: [facility] Comment on above: Subacute cough (Prim alison Dx); COPD with exacerbation (HCC) Start: 10-08-2022 Refill Scot cortez MD Work Phone: [facility] Comment on above: Refill Request Start: 10-02-2022 Refill Scot cortez MD Work Phone: Family [facility] [place] Comment on above: Refill Request Start: 09-18-2022 End: 09-18-2022 Subsequent hospital visit by physician Xr [facility] [place] Kay Work Phone: Radiology Comment on above: Foreign body (FB) in soft tissue [M79.5] Start: 09-18-2022 End: 09-18-2022 Patient encounter procedure Maciej Brown Work Phone: Podiatry Comment on above: Foreign body (FB) in soft tissue (Primary Dx); Acquired hallux valgus of left foot; Pain in left foot Start: 08-19-2022 End: 08-19-2022 Patient encounter procedure Jaylin Combs PA-C Work Phone: [facility] [place] Comment on above: Mixed hyperlipidemia (Primary Dx); Essential tremor; Primary insomnia; Senile osteoporosis; Anxiety and depression; Bilateral carotid artery stenosis; Mild persistent asthma without complication; Elevated fasting blood sugar; Family history of thyroid disease; Weight gain Start: 07-15-2022 Documentation procedure Mammog jayson Coordinator [facility] Start: 07-15-2022 Letter encounter Mammography Coordinator [facility] Department Start: 07-14-2022 End: 07-14-2022 Subsequent hospital visit by physician Screen Mammo [facility] Mammogram Comment on above: Encounter for screen ing mammogram for malignant neoplasm of breast [Z12.31] Start: 07-09-2022 Orders Only Suzi gabriel MD Work Phone: [facility] Comment on above: Encounter for screen ing mammogram for malignant neoplasm of breast (Primary Dx) Start: 04-27-2022 Refill Scot cortez MD Work Phone: [facility] [place] Comment on above: Refill Request Start: 04-09-2022 End: 04-09-2022 Patient encounter procedure Maciej Brown Work Phone: Podiatry Comment on above: Pain in left foot (P rimary Dx); Plantar fascial fibromatosis; Foreign body (FB) in soft tissue Start: 04-09-2022 End: 04-09-2022 Subsequent hospital visit by physician Alejo [facility] Rahul Work Phone: Radiology Comment on above: Pain in left foot [M 79.672] Start: 03-27-2022 Chris Sanchez MA [facility] Start: 03-18-2022 Telephone encounter Scot Blank MD Work Phone: [facility] Comment on above: Rx issue Start: 02-27-2022 Telephone encounter Scot Blank MD Work Phone: [facility] Comment on above: Patient Update Start: 02-18-2022 Telephone encounter Scot Blank MD Work Phone: [facility] Comment on above: Results Start: 02-12-2022 End: 02-12-2022 Patient encounter procedure Scot Blank MD Work Phone: [facility] Comment on above: Medicare annual [facility] visit, subsequent (Primary Dx); Mixed hyperlipidemia; Elevated [...] 12-22-2021 Admission to same day surgery center -Surgical Day Care Start: 11-18-2021 End: 11-18-2021 Patient encounter procedure -Cardiovascul ar Services Start: 10-13-2021 End: 10-13-2021 Patient encounter procedure Jaylin Combs PA-C Work Phone: [facility] Comment on above: Bacterial pneumonia (Primary Dx); Mild persistent asthma without complication; Primary insomnia Start: 07-08-2021 End: 07-08-2021 Subsequent hospital visit by physician Alejo [facility] Boley Work Phone: Radiology Comment on above: Cough [R05.9] Start: 04-11-2021 End: 04-11-2021 Subsequent hospital visit by physician Alejo [facility] [place] Work Phone: Radiology Comment on above: Chronic pain of left ankle [M25.572, G89.29] Start: 09-27-2020 Patient encounter procedure Jaylin Combs PA-C Work Phone: [facility] Work Phone: Start: 03-03-2017 Ambulatory [facility] Start: 02-11-2017 End: 02-13-2017 Ambulatory [facility] Start: 01-21-2017 End: 06-15-2019 Patient encounter status Scot Blank MD Work Phone: [facility] Start: 12-06-2015 End: 06-15-2019 Patient encounter status Scot Blank MD Work Phone: [facility] Work Phone: Start: 11-20-2009 End: 12-22-2011 Patient encounter status Scot Blank MD Work Phone: [facility] Procedures Date Procedure Procedure Detail Performing Clinician Start: 09-15-2024 Lipid 1996 panel - S vero or Plasma Xander Wu PT Work Phone: Start: 07-07-2024 Myocardial spect mul tiple studies Yari Rincon APRN.MEDICAL ENGINEER Work Phone: Start: 06-23-2024 Ct lower extremity [...] exam ches t 2 views Scot Che APRN.MEDICAL ENGINEER Work Phone: Start: 06-30-2021 Mammography Jaylin kirkpatrickon PA-C Work Phone: Start: 04-11-2021 Radex ankle complete minimum 3 views Jermaine Boothe APRN.MEDICAL ENGINEER Work Phone: Start: 05-22-2019 Colonoscopy Jaylin Ro binson PA-C Work Phone: Plan of Treatment Date Care Activity Detail Author Start: 09-15-2029 Lipid panel Lipid Screening [facility] Start: 05-22-2029 Colonoscopy COLONOSCOPY [facility] Start: 05-22-2029 COLORECTAL CANCER SCREENING COLORECTAL CANCER SCREENING [facility] Start: 05-22-2029 Screening for malignant neoplasm of colon [facility] Start: 02-14-2029 Lipid panel Lipid Screening [facility] Start: 09-02-2028 Lipid panel Lipid Screening [facility] Start: 03-01-2028 Lipid 1996 panel - Serum or Plasma Lipid Screening [facility] Start: 03-01-2028 Lipid panel Lipid Screening [facility] Start: 03-01-2028 LIPID SCREEN LIPID SCREEN [facility] Start: 09-16-2027 Diabetes Screening Diabetes Screening [facility] Start: 08-18-2027 LIPID SCREEN LIPID SCREEN [facility] Start: 07-27-2027 Diabetes Screening Diabetes Screening [facility] Start: 06-30-2027 Diabetes Screening Diabetes Screening [facility] Start: 02-14-2027 Diabetes Screening Diabetes Screening [facility] Start: 11-18-2026 LIPID SCREEN LIPID SCREEN [facility] Start: 09-02-2026 Diabetes Screening Diabetes Screening [facility] Start: 05-06-2026 LIPID SCREEN LIPID SCREEN [facility] Start: 03-01-2026 DIABETES SCREEN DIABETES SCREEN [facility] Start: 03-01-2026 Diabetes Screening Diabetes Screening [facility] Start: 01-22-2026 Annual PCP Team Chronic Disease Visit Annual PCP Team Chronic Disease Visit [facility] Start: 10-24-2025 Annual PCP Team Chronic Disease Visit Annual PCP Team Chronic Disease Visit [facility] Start: 10-03-2025 Screening for malignant neoplasm of breast Mammogram Screening [facility] Start: 08-18-2025 DIABETES SCREEN DIABETES SCREEN [facility] Start: 07-30-2025 End: 07-30-2025 Patient encounter procedure 07/30/2025 12:45 PM EST Office Visit Orthopaedics [address] [place], [place] [phone] Bryson Dhillon MD [address] [place] [id number] 1 year follow up right [facility] Comment on above: 1 year follow up right [facility] Start: 04-26-2025 End: 04-26-2025 Patient encounter procedure 04/26/2025 9:20 AM EDT Office Visit Family [facility] [place] [address] [place] [address] Jaylin Combs PA-C [address] [place] [address] Medicare [facility] [place] Comment on above: Medicare Keyshawn Start: 04-25-2025 End: 07-25-2025 25-hydroxyvitamin D3 [Mass/volume] in Serum or Plasma VITAMIN D 25 HYDROXY Lab Routine Vitamin D deficiency Expected: 04/25/2025, Expires: 07/25/2025 [facility] Comment on above: Expected: 04/25/2025, Expires: Start: 04-25-2025 End: 07-25-2025 Cobalamin (Vitamin B12) [Mass/volume] in Serum or Plasma VITAMIN B12 Lab Routine Vitamin B12 deficiency Expected: 04/25/2025, Expires: 07/25/2025 [facility] Work Phone: Comment on above: Expected: 04/25/2025, Expires: Start: 04-25-2025 End: 07-25-2025 Comprehensive metabolic 2000 panel - Serum or Plasma COMPREHENSIVE METABOLIC PANEL Lab Routine Vitamin D deficiency Expected: 04/25/2025, Expires: 07/25/2025 [facility] Comment on above: Expected: 04/25/2025, Expires: Start: 04-25-2025 End: 07-25-2025 Hemoglobin A1c in Blood HEMOGLOBIN A1C Lab Routine Elevated fasting blood sugar Expected: 04/25/2025, Expires: 07/25/2025 [facility] Comment on above: Expected: 04/25/2025, Expires: Start: 04-25-2025 End: 07-25-2025 LIPID PANEL, NONFASTING LIPID PANEL, NONFASTING Lab Routine Mixed hyperlipidemia Expected: 04/25/2025, Expires: 07/25/2025 [facility] Comment on above: Expected: 04/25/2025, Expires: Start: 03-24-2025 Annual PCP Team Chronic Disease Visit Annual PCP Team Chronic Disease Visit [facility] Start: 03-24-2025 Medicare Annual Wellness Visit Medicare Annual Wellness Visit [facility] Start: 03-17-2025 Screening for osteoporosis Bone Density Screening [facility] Start: 02-12-2025 US.doppler Lower extremity vein Start: 01-27-2025 Annual PCP Team Chronic Disease Visit Annual PCP Team Chronic Disease Visit [facility] Start: 11-18-2024 DIABETES SCREEN DIABETES SCREEN [facility] Start: 11-08-2024 Annual PCP Team Chronic Disease Visit Annual PCP Team Chronic Disease Visit [facility] Start: 10-24-2024 End: 10-24-2024 Patient encounter procedure 10/24/2024 1:40 PM EDT Office Visit Family [facility] [address] [place] [address] Jaylin Combs PA-C [address] [place] [address] 6 month f/u Family [facility] Comment on above: 6 month f/u Start: 10-16-2024 End: 10-16-2024 Patient encounter procedure 10/16/2024 12:45 PM EDT Office Visit Orthopaedics [address] [place] [address] Bryson Dhillon MD [address] [place] [address] Post op robotic assisted right [facility] Comment on above: Post op robotic assisted right [facility] Start: 10-03-2024 Annual PCP Team Chronic Disease Visit Annual PCP Team Chronic Disease Visit [facility] Start: 10-03-2024 End: 10-03-2024 Patient encounter procedure Mammogram Comment on above: KALLI SCREENING annual Start: 10-03-2024 End: 10-03-2024 Patient encounter procedure 10/03/2024 10:10 AM EDT Appointment Mammogram [address] [place] [address] KALLI SCREENING Mammogram Comment on above: KALLI SCREENING Start: 09-22-2024 End: 09-22-2024 Patient encounter procedure 09/22/2024 10:00 AM EDT Office Visit Family Medicine [place] [address] [facility] [place] [address] Jaylin Combs PA-C [address] [place] [address] 6 month f/u Family [facility] [place] Comment on above: 6 month f/u Start: 09-21-2024 End: 12-21-2024 25-hydroxyvitamin D3 [Mass/volume] in Serum or Plasma VITAMIN D 25 HYDROXY Lab Routine Vitamin D deficiency Expected: 09/21/2024, Expires: 12/21/2024 [facility] Comment on above: Expected: 09/21/2024, Expires: Start: 09-21-2024 End: 12-21-2024 Basic metabolic 2000 panel - Serum or Plasma BASIC METABOLIC PANEL Lab Routine Gastroesophageal reflux disease with esophagitis without hemorrhage Vitamin D deficiency Expected: 09/21/2024, Expires: 12/21/2024 [facility] Comment on above: Expected: 09/21/2024, Expires: Start: 09-21-2024 End: 12-21-2024 Cobalamin (Vitamin B12) [Mass/volume] in Serum or Plasma VITAMIN B12 Lab Routine Medication management Expected: 09/21/2024, Expires: 12/21/2024 [facility] Comment on above: Expected: 09/21/2024, Expires: Start: 09-21-2024 End: 12-21-2024 Hemoglobin A1c in Blood HEMOGLOBIN A1C Lab Routine Elevated fasting blood sugar Expected: 09/21/2024, Expires: 12/21/2024 [facility] Comment on above: Expected: 09/21/2024, Expires: Start: 09-21-2024 End: 12-21-2024 LIPID PANEL, NONFASTING LIPID PANEL, NONFASTING Lab Routine Mixed hyperlipidemia Expected: 09/21/2024, Expires: 12/21/2024 [facility] Comment on above: Expected: 09/21/2024, Expires: Start: 09-21-2024 End: 12-21-2024 Magnesium [Mass/volume] in Serum or Plasma MAGNESIUM Lab Routine Medication management Expected: 09/21/2024, Expires: 12/21/2024 [facility] Comment on above: Expected: 09/21/2024, Expires: Start: 09-18-2024 End: 09-18-2024 ambulatory 09/18/2024 10:45 AM EDT OT/PT/Speech Visit [facility] [address] [place] [address] Xander Wu, PT [address] [facility] [place] [address] RT TKR [facility] DC 08/10 [facility] Comment on above: RT TKR C DC 08/10 Start: 09-15-2024 End: 09-15-2024 ambulatory 09/15/2024 11:00 AM EST OT/PT/Speech Visit [facility] [address] [place] [address] Xander Wu, PT [address] [facility] [place] [address] RT TKR [facility] DC 08/10 [facility] Comment on above: RT TKR C DC 08/10 Start: 09-11-2024 End: 09-11-2024 ambulatory 09/11/2024 10:45 AM EST OT/PT/Speech Visit [facility] [address] [place] [address] Xander Wu, PT [address] [facility] [place] [address] RT TKR [facility] DC 08/10 [facility] Comment on above: RT TKR C DC 08/10 Start: 09-08-2024 End: 09-08-2024 ambulatory 09/08/2024 9:15 AM EST OT/PT/Speech Visit [facility] [address] [place] [address] Lissa Lira, PT RT TKR [facility] DC 08/10 [facility] Comment on above: RT TKR [facility] DC 08/10 Start: 09-06-2024 Annual PCP Team Chronic Disease Visit Annual PCP Team Chronic Disease Visit [facility] Start: 09-04-2024 End: 09-04-2024 ambulatory 09/04/2024 10:45 AM EST OT/PT/Speech Visit [facility] [address] [place] [address] Xander Wu, PT [address] [facility] [place] [id number] RT TKR [facility] DC 08/10 [facility] Comment on above: RT TKR [facility] DC 08/10 Start: 09-04-2024 End: 09-04-2024 Patient encounter procedure 09/04/2024 9:45 AM EST Office Visit Orthopaedics [address] [place] [address] Bryson Dhillon MD [address] [place] [address] Post op robotic assisted right [facility] Comment on above: Post op robotic assisted right TKA Start: 09-03-2024 Annual PCP Team Chronic Disease Visit Annual PCP Team Chronic Disease Visit [facility] Start: 09-03-2024 Covid-19 Vaccine ( season) Covid-19 Vaccine () [facility] Comment on above: Postponed from 03/12/2023 (Declined at t his time) Start: 08-31-2024 End: 08-31-2024 ambulatory 08/31/2024 3:45 PM EST OT/PT/Speech Visit [facility] [address] [place] [address] Xander Wu, PT [address] [facility] [place] [id number] RT TKR [facility] DC 08/10 [facility] Comment on above: RT TKR [facility] DC 08/10 Start: 08-28-2024 End: 08-28-2024 ambulatory 08/28/2024 3:30 PM EST OT/PT/Speech Visit [facility] [address] [place] [address] O'Lissa Hanna, PT RT TKR [facility] DC 08/10 [facility] Comment on above: RT TKR [facility] DC 08/10 Start: 08-21-2024 End: 08-21-2024 ambulatory 08/21/2024 3:30 PM EST OT/PT/Speech Visit [facility] [address] [place] [address] Lissa Lira, PT RT TKR [facility] DC 08/10 [facility] Comment on above: RT TKR [facility] DC 08/10 Start: 08-17-2024 End: 08-17-2024 Patient encounter procedure 08/17/2024 12:45 PM EST Office Visit Pulmonary Medicine [address] [place] [address] Lorenza Reza MD [address] [place] [address] 6 mo follow up Pulmonary Medicine Comment on above: 6 mo follow up Start: 08-14-2024 End: 08-14-2024 ambulatory 08/14/2024 10:00 AM EST OT/PT/Speech Visit [facility] [address] [place] [address] Xander Wu, PT [address] [facility] [place] [address] RT TKR [facility] DC 08/10 [facility] Comment on above: RT TKR [facility] DC 08/10 Start: 08-07-2024 End: 08-07-2024 Patient encounter procedure Orthopaedics Comment on above: Post op robotic assisted right [facility]KA Xray Start: 07-26-2024 End: 07-26-2024 Admission to same day surgery center 07/26/2024 8:30 AM EST - 07/26/2024 11:21 AM EST Surgery [facility] Surgery [address] [place] [id number] Bryson Dhillon MD [address] [place] [address] ROBOTIC ASSISTED TOTAL KNEE ARTHROPLASTY [facility] Surgery Comment on above: ROBOTIC ASSISTED TOTAL KNEE ARTHROPLASTY Start: 07-26-2024 End: 07-26-2024 Arthrp kne condyle&platu medial&lat compartments ROBOTIC ASSISTED TOTAL KNEE ARTHROPLASTY Primary osteoarthritis of right knee 07/26/2024 8:30 AM EST ME OR Start: 07-26-2024 Subsequent hospital visit by physician 07/26/2024 8:30 AM EST Hospital Encounter [facility] Surgery [address] [place] [address] Bryson Dhillon MD [address] [place] [address] Primary osteoarthritis of right knee [M17.11] [facility] Surgery Comment on above: Primary osteoarthritis of right knee [M1 7.11] Start: 07-16-2024 Screening for malignant neoplasm of breast Mammogram Screening [facility] Start: 07-12-2024 Advance Directive Discussion Advance Directive Discussion [facility] Start: 07-07-2024 Subsequent hospital visit by physician 07/07/2024 1:45 PM EST Hospital Encounter Cardiology Lab [address] [place] [address] Abnormal electrocardiogram [R94.31] Cardiology Lab Comment on above: Abnormal electrocardiogram [R94.31] Start: 07-07-2024 End: 07-07-2024 Patient encounter procedure Molecular Imaging Comment on above: NM CARDIAC PERF STRESS/PHARM Start: 06-30-2024 End: 07-30-2025 NM Heart Perfusion W stress and W radionuclide IV NM CARDIAC PERF STRESS/PHARM Radiology Routine Abnormal electrocardiogram Expected: 06/30/2024, Expires: 07/30/2025 [facility] Comment on above: Expected: 06/30/2024, Expires: Start: 06-30-2024 End: 06-30-2024 Anesthesia consultation 06/30/2024 9:20 AM EST PAT Pre Anesthesia [address] [place] [address] 1, Pacc [place] [address] [place] [address] ROBOTIC ASSISTED TOTAL KNEE ARTHROPLASTY [20713] - Knee - Right Pre Anesthesia Comment on above: ROBOTIC ASSISTED TOTAL KNEE ARTHROPLASTY [15891] - Knee - Right Start: 06-23-2024 End: 06-23-2024 Patient encounter procedure 06/23/2024 9:00 AM EST Appointment Radiology [address] [place] [address] CT KNEE WO IVCON RIGHT Radiology Comment on above: CT KNEE WO IVCON RIGHT Start: 06-19-2024 End: 06-19-2024 Patient encounter procedure 06/19/2024 9:00 AM EST Office Visit Orthopaedics [address] [place] [address] Rebekah Eduardo PA-C [address] [place] [address] follow up after MRI Orthopaedics Comment on above: follow up after MRI Start: 06-12-2024 End: 06-12-2024 Patient encounter procedure 06/12/2024 2:00 PM EST Office Visit Orthopaedics [address] [place] [address] Bryson Dhillon MD [address] [place] [address] Discuss Right TKA Orthopaedics Comment on above: Discuss Right TKA Start: 05-30-2024 End: 05-30-2024 Patient encounter procedure 05/30/2024 12:00 PM EST Appointment Radiology [address] [facility] [address] [address] [place], [place] [id number] Primary osteoarthritis of right knee [M17.11] Radiology Comment on above: Primary osteoarthritis of right knee [M1 7.11] Start: 05-06-2024 DIABETES SCREEN DIABETES SCREEN [facility] Start: 04-25-2024 End: 04-25-2024 Patient encounter procedure 04/25/2024 8:30 AM EDT Office Visit Vascular Surgery [address] [place], [place] [id number] Lidya Pena, DO [address] [place] [address] 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] Vascular Surgery Comment on above: 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] Start: 04-13-2024 End: 04-13-2024 Patient encounter procedure 04/13/2024 9:00 AM EDT Office Visit Vasculary Surgery [address] [facility] [place] [address] Bilateral carotid artery stenosis [I65.23] Vasculary Surgery Comment on above: Bilateral carotid artery stenosis [I65.2 3] Start: 04-06-2024 Annual PCP Team Chronic Disease Visit Annual PCP Team Chronic Disease Visit [facility] Start: 03-24-2024 End: 03-24-2024 Patient encounter procedure 03/24/2024 10:00 AM EDT Office [facility] [place] [address] [facility] [place] [id number] Jaylin Combs PA-C [address] [facility] [place] [id number] Medicare wellness Family [facility] [place] Comment on above: Medicare wellness Start: 03-12-2024 Covid-19 Vaccine ( season) Covid-19 Vaccine () [facility] Start: 03-03-2024 ANNUAL PCP TEAM CHRONIC DISEASE VISIT ANNUAL PCP TEAM CHRONIC DISEASE VISIT [facility] Start: 03-03-2024 End: 06-02-2024 Comprehensive metabolic 2000 panel - Serum or Plasma COMP METABOLIC PANEL Lab Routine Elevated fasting blood sugar Expected: 03/03/2024, Expires: 06/02/2024 [facility] Work Phone: Comment on above: Expected: 03/03/2024, Expires: Start: 03-03-2024 End: 06-02-2024 Hemoglobin A1c in Blood HGB A1C Lab Routine Elevated fasting blood sugar Expected: 03/03/2024, Expires: 06/02/2024 [facility] Work Phone: Comment on above: Expected: 03/03/2024, Expires: Start: 03-03-2024 End: 06-02-2024 LIPID PANEL, NONFASTING LIPID PANEL, NONFASTING Lab Routine Mixed hyperlipidemia Expected: 03/03/2024, Expires: 06/02/2024 [facility] Work Phone: Comment on above: Expected: 03/03/2024, Expires: Start: 03-03-2024 End: 03-03-2024 Patient encounter procedure [facility] [place] Comment on above: Medicare Wellness Rt knee Rt leg pain, below k nee Right knee pain Start: 02-15-2024 End: 05-16-2024 IgE [Units/volume] in Serum or Plasma [facility] Work Phone: Comment on above: Expected: 02/15/2024, Expires: Start: 02-15-2024 End: 02-15-2024 Patient encounter procedure 02/15/2024 11:00 AM EDT Office Visit Pulmonary Medicine [address] [place] [address] Lorenza Reza MD [address] [place] [id number] Persistent cough [R05.3]; Mild persistent asthma without complication [J45.30] Pulmonary Medicine Comment on above: Persistent cough [R05.3]; Mild persisten t asthma without complication [J45.30] Start: 02-15-2024 End: 02-15-2024 ambulatory [facility] Comment on above: Persistent cough [R05.3]; Mild persisten t asthma without complication [J45.30] Start: 12-02-2023 End: 03-02-2024 25-hydroxyvitamin D3 [Mass/volume] in Serum or Plasma VITAMIN D 25 HYDROXY Lab Routine Vitamin D deficiency Expected: 12/02/2023, Expires: 03/02/2024 [facility] Work Phone: Comment on above: Expected: 12/02/2023, Expires: Start: 10-20-2023 ANNUAL PCP TEAM CHRONIC DISEASE VISIT ANNUAL PCP TEAM CHRONIC DISEASE VISIT [facility] Start: 09-03-2023 End: 11-03-2023 25-hydroxyvitamin D3 [Mass/volume] in Serum or Plasma VITAMIN D 25 HYDROXY Lab Routine Senile osteoporosis Expected: 09/03/2023, Expires: 11/03/2023 [facility] Work Phone: Comment on above: Expected: 09/03/2023, Expires: Start: 09-03-2023 End: 11-03-2023 Basic metabolic 2000 panel - Serum or Plasma BASIC METABOLIC PNL Lab Routine Senile osteoporosis Expected: 09/03/2023, Expires: 11/03/2023 [facility] Work Phone: Comment on above: Expected: 09/03/2023, Expires: Start: 09-03-2023 End: 11-03-2023 Hemoglobin A1c in Blood HGB A1C Lab Routine Elevated fasting blood sugar Expected: 09/03/2023, Expires: 11/03/2023 [facility] Work Phone: Comment on above: Expected: 09/03/2023, Expires: Start: 09-03-2023 End: 11-03-2023 LIPID PANEL, NONFASTING LIPID PANEL, NONFASTING Lab Routine Mixed hyperlipidemia Expected: 09/03/2023, Expires: 11/03/2023 [facility] Work Phone: Comment on above: Expected: 09/03/2023, Expires: Start: 08-19-2023 ANNUAL PCP TEAM CHRONIC DISEASE VISIT ANNUAL PCP TEAM CHRONIC DISEASE VISIT [facility] Start: 07-14-2023 Mammography [facility] Start: 07-14-2023 Screening for malignant neoplasm of breast Mammogram Screening [facility] Start: 07-12-2023 Advance Directive Discussion Advance Directive Discussion [facility] Start: 03-12-2023 Covid-19 Vaccine () Covid-19 Vaccine () [facility] Start: 02-12-2023 ANNUAL PCP TEAM CHRONIC DISEASE VISIT ANNUAL PCP TEAM CHRONIC DISEASE VISIT [facility] Start: 02-12-2023 COVID-19 VACCINE (3 - Booster for Moderna series) COVID-19 VACCINE (3 - Booster for Moderna series) [facility] Comment on above: Postponed from 03/11/2021 (Declined at t his time) Postponed from 12/04 (Declined at this time) Start: 02-12-2023 COVID-19 VACCINE (3 - Moderna series) COVID-19 VACCINE (3 - Moderna series) [facility] Comment on above: Postponed from 12/04/2020 (Declined at t his time) Start: 02-12-2023 Urine microalbumin profile DTAP,TDAP,TD (1 - Tdap) [facility] Comment on above: Postponed from 1969 (Insurance Cov erage) Start: 02-09-2023 End: 04-11-2023 Comprehensive metabolic 2000 panel - Serum or Plasma COMP METABOLIC PANEL Lab Routine Mixed hyperlipidemia Elevated fasting blood sugar Expected: 02/09/2023, Expires: 04/11/2023 [facility] Work Phone: Comment on above: Expected: 02/09/2023, Expires: 3 Start: 02-09-2023 End: 04-11-2023 Hemoglobin A1c in Blood HGB A1C Lab Routine Elevated fasting blood sugar Expected: 02/09/2023, Expires: 04/11/2023 [facility] Work Phone: Comment on above: Expected: 02/09/2023, Expires: 3 Start: 02-09-2023 End: 04-11-2023 LIPID PANEL, NONFASTING LIPID PANEL, NONFASTING Lab Routine Mixed hyperlipidemia Expected: 02/09/2023, Expires: 04/11/2023 [facility] Work Phone: Comment on above: Expected: 02/09/2023, Expires: 3 Start: 02-09-2023 End: 04-11-2023 Thyrotropin [Units/volume] in Serum or Plasma TSH BLD Lab Routine Essential tremor Expected: 02/09/2023, Expires: 04/11/2023 [facility] Work Phone: Comment on above: Expected: 02/09/2023, Expires: 3 Start: 10-13-2022 ANNUAL PCP TEAM CHRONIC DISEASE VISIT ANNUAL PCP TEAM CHRONIC DISEASE VISIT [facility] Start: 07-31-2022 End: 09-30-2022 Hemoglobin A1c in Blood HGB A1C Lab Routine Elevated fasting blood sugar Expected: 07/31/2022, Expires: 09/30/2022 [facility] Work Phone: Comment on above: Expected: 07/31/2022, Expires: 3 Start: 07-31-2022 End: 09-30-2022 LIPID PANEL, NONFASTING LIPID PANEL, NONFASTING Lab Routine Mixed hyperlipidemia Expected: 07/31/2022, Expires: 09/30/2022 [facility] Work Phone: Comment on above: Expected: 07/31/2022, Expires: 3 Start: 07-12-2022 ADVANCE DIRECTIVE DISCUSSION ADVANCE DIRECTIVE DISCUSSION [facility] Start: 06-30-2022 Mammography MAMMOGRAM [facility] Start: 07-12-2021 ADVANCE DIRECTIVE DISCUSSION ADVANCE DIRECTIVE DISCUSSION [facility] Start: 03-11-2021 COVID-19 VACCINE (3 - Booster for Moderna series) COVID-19 VACCINE (3 - Booster for Moderna series) [facility] Start: 12-04-2020 COVID-19 VACCINE (3 - Moderna series) COVID-19 VACCINE (3 - Moderna series) [facility] Start: 2010 RSV Vaccine (1 - 1-dose 60+ series) RSV Vaccine (1 - 1-dose 60+ series) [facility] Start: 2010 RSV Vaccine (1 - Risk 60-74 years 1-dose series) RSV Vaccine (1 - Risk 60-74 years 1-dose series) [facility] Start: 1995 COLOGUARD (FIT-DNA) COLOGUARD (FIT-DNA) [facility] Start: [address] COLONOGRAPHY [facility] Start: 1995 FECAL OCCULT BLOOD FECAL OCCULT BLOOD [facility] Start: 1995 Screening for malignant neoplasm of colon [facility] Start: 1995 SIGMOIDOSCOPY SIGMOIDOSCOPY [facility] Start: 1969 Urine microalbumin profile [facility] End: 04-01-2024 DXA-AXIAL SKELETON DXA-AXIAL SKELETON Radiology Routine Asymptomatic postmenopausal status Senile osteoporosis 1 Occurrences starting 03/03/2023 until 04/01/2024 [facility] Work Phone: Comment on above: 1 Occurrences starting 03/03/2023 until 04/01/2024 End: 06-30-2025 ECG COMPLETE ECG COMPLETE ECG Routine Pre-operative examination 1 Occurrences starting 06/30/2024 until 06/30/2025 [facility] Work Phone: Comment on above: 1 Occurrences starting 06/30/2024 until 06/30/2025 Influenza virus A an d B RNA and SARS-CoV-2 (COVID-19) N gene panel - Respiratory specimen by SOFY with probe detection COVID & INFLUENZA A/B NAAT, ROUTINE Microbiology Routine URI, acute 09/03/2023 11:58 AM EST [facility] [employer] Work Phone: KALLI SCREENING KALLI SCREENING Ra diology Routine Visit for screening mammogram Ordered: 06/22/2023 [facility] Work Phone: Comment on above: Ordered: 06/22/2023 End: 10-30-2024 MG Breast Screening KALLI SCREENING Radiology Routine Encounter for gynecological examination with abnormal finding Encounter for screening mammogram for malignant neoplasm of breast 1 Occurrences starting 10/01/2023 until 10/30/2024 [facility] Work Phone: Comment on above: 1 Occurrences starting 10/01/2023 until 10/30/2024 MG Breast Screening KALLI SCREENIN G Radiology Routine Encounter for gynecological examination with abnormal finding Encounter for screening mammogram for malignant neoplasm of breast 10/03/2024 2:56 PM EDT [facility] Work Phone: End: 06-14-2025 MR Knee - right WO contrast MRI KNEE WO IVCON RIGHT Radiology Routine Other secondary osteoarthritis of right knee 1 Occurrences starting 05/15/2024 until 06/14/2025 [facility] Work Phone: Comment on above: 1 Occurrences starting 05/15/2024 until 06/14/2025 MR Knee - right WO contrast MRI KNEE WO IVCON RIGHT Radiology Routine Other secondary osteoarthritis of right knee 05/17/2024 4:58 PM EST [facility] Work Phone: Patient Education ED Deep Vein T hrombosis (DVT) Work Phone: Patient referral [facility] Work Phone: End: 03-24-2025 US Carotid arteries - bilateral US CAROTID ARTERIES [facility] Vascular Lab Routine Bilateral carotid artery stenosis 1 Occurrences starting 03/24/2024 until 03/24/2025 [facility] Work Phone: Comment on above: 1 Occurrences starting 03/24/2024 until 03/24/2025 End: 02-12-2023 US CAROTID ARTERIES [facility] US CAROTID ARTERIES [facility] Vascular Lab Routine Bilateral carotid artery stenosis 1 Occurrences starting 02/12/2022 until 02/12/2023 [facility] Work Phone: Comment on above: 1 Occurrences starting 02/12/2022 until 02/12/2023 End: 02-21-2026 XR Ankle - left AP and Lateral and oblique XR ANKLE GENERAL 3V AP/LAT/OBL LEFT Radiology Routine Chronic pain of left ankle 1 Occurrences starting 01/22/2025 until 02/21/2026 [facility] Work Phone: Comment on above: 1 Occurrences starting 01/22/2025 until 02/21/2026 XR Ankle - left AP a nd Lateral and oblique XR ANKLE GENERAL 3V AP/LAT/OBL LEFT Radiology Routine Chronic pain of left ankle 01/22/2025 1:10 PM EDT [facility] End: 10-18-2023 XR FOOT GENERAL 3V AP/LAT/OBL LEFT XR FOOT GENERAL 3V AP/LAT/OBL LEFT Radiology Routine Foreign body (FB) in soft tissue Acquired hallux valgus of left foot 1 Occurrences starting 09/18/2022 until 10/18/2023 [facility] Work Phone: Comment on above: 1 Occurrences starting 09/18/2022 until 10/18/2023 XR FOOT GENERAL 3V AP/LAT/OBL LEFT XR FOOT GENERAL 3V AP/LAT/OBL LEFT Radiology Routine Foreign body (FB) in soft tissue Acquired hallux valgus of left foot 09/18/2022 10:30 AM EST [facility] Work Phone: End: 09-03-2025 XR Knee AP and Lateral and Merchants XR KNEE POST OP 3V AP/LAT/MERCHANT RIGHT Radiology Routine S/P total knee arthroplasty, right 1 Occurrences starting 08/04/2024 until 09/03/2025 [facility] Work Phone: Comment on above: 1 Occurrences starting 08/04/2024 until 09/03/2025 XR Knee AP and Later al and Merchants XR KNEE POST OP 3V AP/LAT/MERCHANT RIGHT Radiology Routine S/P total knee arthroplasty, right 08/07/2024 10:18 AM EST [facility] Work Phone: End: 03-25-2025 XR Lower extremity - bilateral AP W standing XR LEG FRONTAL HIP TO ANKLE MECHANICAL AXIS Radiology Routine Right knee pain, unspecified chronicity 1 Occurrences starting 02/24/2024 until 03/25/2025 [facility] Work Phone: Comment on above: 1 Occurrences starting 02/24/2024 until 03/25/2025 [facility] Immunizations Immunization Date Immunization Notes Care Provider Sallie fernandez 04-29-2021 zoster vaccine recombinant Jaylin Combs PA-C Work Phone: [facility] 02-24-2021 zoster vaccine recombinant Jaylin Combs PA-C Work Phone: [facility] 10-09-2020 COVID-19 vaccine, fu ll dose (MODERNA) Jaylin Combs PA-C Work Phone: [facility] 09-11-2020 COVID-19 vaccine, fu ll dose (MODERNA) Jaylin Combs PA-C Work Phone: [facility] 01-21-2017 pneumococcal polysaccharide vaccine, 23 valent Jaylin Combs PA-C Work Phone: [facility] 12-06-2015 pneumococcal conjuga te vaccine, 13 valent Jaylin Combs PA-C Work Phone: [facility] 02-23-2014 zoster vaccine, live Jaylin Combs PA-C Work Phone: [facility] Work Phone: Payers Date Payer Category Payer Self-pay [id number] 2015 Private Health Insurance [employer] [id number] 2015 Unknown [employer] [id number] 2015-Present [phone] [address] [place] [address] Indemnity [id number] 2015 Unknown [employer] [id number] 2015-Present [phone] [address] [place] [address] Indemnity [id number] 2015 Unknown [id number] 2013 Medicare MEDICARE MEDICAR E A AND B [id number] 2013-Present [phone] [place] [address] Medicare [id number] 2013 Medicare [id number] 2003 Medicare [id number] Unknown [id number] Unknown [id number] Unknown [id number] Social History Date Type Detail Facility Start: 09-27-2014 End: 02-12-2025 Tobacco smoking status NHIS Never smoked tobacco [facility] Work Phone: Start: 09-22-2021 End: 01-22-2025 Alcohol intake Current non-drinker of alcohol (finding) [facility] Start: 09-27-2014 End: 08-19-2022 Tobacco Comment Father smoked occasionally in childhood home. Spouse smoked in home until 4 years ago. [facility] Start: 1950 Sex Assigned At Not on file [facility] Start: 03-12-2021 End: 04-09-2022 Exposure to SARS-CoV-2 (event) Not sure [facility] Start: 10-16-2020 End: 12-16-2021 Tobacco smoking status NHIS Unknown if ever smoked Start: 10-16-2020 None [facility] Start: 10-16-2020 Spouse/ Signif icant Other Start: 05-19-2019 Non-smoker [facility] Start: 1950 Sex Assigned At Female W [facility] Start: 09-27-2014 End: 10-01-2023 Tobacco use and exposure Smokeless tobacco non-user [facility] Work Phone: Start: 10-19-2022 End: 08-23-2023 History of Social function [facility] Work Phone: Start: 10-19-2022 End: 03-03-2023 Tobacco use panel [facility] Work Phone: Adult Depression Screening Assessment 4 [facility] Work Phone: Do you feel stress - tense, restless, nervous, or anxious, or unable to sleep at night because your mind is troubled all the time - these days [OSQ] Rather much [facility] Has the Octavian, gas, oil, or water MiNeeds threatened to shut off services in your home in past 12Mo No [facility] (I/We) worried whether (my/our) food would run out before (I/we) got money to buy more. Never true [facility] NEGATED: Highlighted rowStart: HUGO History of tobacco use Passive smoker [facility] Medical Equipment Procedure Code Equipment Code Equipment Origin al Text Equipment Identifier Dates Arthroscopy, knee, with Subchondroplasty SCP Knee Kit FDA Start: 12-22-2021 Arthroscopy, knee, with Subchondroplasty SCP Knee Kit FDA Start: 12-22-2021 Retroarc Bladder Sling - [id number] Start: 09-03-2015 Comment on above: Description: RetroAr c Sling Stent Neeta Oneal s Stent 16mm Nitinol 120mm 100mm Endoprosthesis Catheter - [id number] Start: 04-02-2020 Cement Simplex P Bone Radiopaque Full Dose Sterile - [id number] Start: 07-26-2024 Cement Simplex P Bone Radiopaque Full Dose Sterile - [id number] Start: 07-26-2024 Component Triath julee 3 Femoral Cruciate Retain Cemented Knee Right - [id number] Start: 07-26-2024 Insert Triathlon 3 9mm Tibial Bearing Condylar Stabilize Sterile Knee - [id number] Start: 07-26-2024 Component Triath julee 29mm X3 9mm Patellar Asymmetric Knee - [id number] Start: 07-26-2024 Triathlon Cement ed [id number] X 50mm - [id number] Start: 07-26-2024 Baseplate Triath julee 3 Howard Cocr Tibial Total Stabilize Cemented Knee - [id number] Start: 07-26-2024 Goals Date Patient Goal Desired Activity /State Personal health goal Personal health goal Functional Status Date Assessment Result Facility 07-27-2024 Are you deaf, or do you have serious difficulty hearing No 07/27/2024 3:19 PM Uzma Ivy RN No [facility] 07-27-2024 Are you blind, or do you have serious difficulty seeing, even when wearing glasses No 07/27/2024 3:19 PM Uzma Ivy RN No [facility] 07-27-2024 Do you have serious difficulty walking or climbing stairs No 07/27/2024 3:19 PM Uzma Ivy RN No [facility] 07-27-2024 Do you have difficul ty dressing or bathing No 07/27/2024 3:19 PM Uzma Ivy RN No [facility] 07-27-2024 Because of a physica l, mental, or emotional condition, do you have difficulty doing errands alone such as visiting a physician's office or shopping No 07/27/2024 3:19 PM Uzma Ivy RN No [facility] Mental Status Date Assessment Result Facility 02-12-2025 Cognitive function Level Of Cons ciousness Awake;Alert;Appropriate Work Phone: 07-27-2024 Because of a physica l, mental, or emotional condition, do you have serious difficulty concentrating, remembering, or making decisions No 07/27/2024 3:19 PM Uzma Ivy RN No [facility] 12-22-2021 Cognitive function Voice/Name [facility] Work Phone: Clinical Notes 02-15-2019 to 02-12-2025 Note Date & Type Note Facility 02-12-2025 Discharge summary 02-12-2025 Discharge summary Note Date/Time February 12, 2025 3:30pm [facility] Medical Records Department [address] [place] [address] Emergency Department Summary 02/12/25 MR#: [id number] Acct: [id number] Name: NORA CAMARILLO Rep #:[id number] : 1950 74 From: Fidel Marte MD [...] she has no history of cancer. The mechanical facilities technician also commented there is a hypoechoic [...] Orders: Venous Duplex US, Unilateral (Stat) Facility: [facility] - Location: Ordered By: Dr. Fidel Marte Primary Care [...] be followed by Dr. Nunn. Print Language: Romanian Disposition Disposition: Home, Self Care What to do if you have Problems For any increased pain, shortness of breath, bleeding, nausea or vomiting, chestpain, or any unexpected problems, contact your Primary Care Provider. Call [facility] ([phone]) or report to the closest Emergency Room. Call 911 if necessary. 02/12/25 1530 <Electronically signed by Fidel Marte MD> Cosigner Signature (if applicable): CC: Dr. Scot Blank MD ~ Signed Work Phone: [phone] 743-149607-28-2025 Telephone encounter Note* Telephone Encounter - Qasim Patterson LPN - 02/05/2025 2:50 PM EDT Pt notified of same. Qasim Patterson LPN [facility]07-28-2025 Miscellaneous Notes* Telephone Encounter - Qasim Patterson LPN - 02/05/2025 2:50 PM EDT Pt notified of same. Qasim Patterson LPN * Telephone Encounter - Jaylin Combs PA-C - 02/05/2025 2:41 PM EDT I have listed that we were referring to the foot and ankle center here in [place]. I'm assuming that the consult automatically gets [...] does not want to see podiatry at [facility] but sees a provider in the community. Kia Andujar LPN documented in this encounterMer[facility] Telephone encounter Note * Telephone Encounter - Jaylin Combs PA-C - 02/05/2025 2:41 PM EDT I have listed that we were referring to the foot and ankle center here in [place]. I'm assuming that the consult automatically gets sent internally as well, which is probably why she got the call. Itwasn't directed by myself. Jaylin Combs PA-C [facility]07-28-2025 Telephone encounter Note* Telephone Encounter - Haritha Pascual MA - 02/05/2025 2:38 PM EDT Orthopedic office did not call patient. [facility]07-28-2025 Telephone encounter Note* Telephone Encounter - [...] does not want to see podiatry at [facility] but sees a provider in the community. Kia Andujar LPN [facility]07-21-2025 Telephone encounter Note* Telephone Encounter - Qasim Patterson LPN - 01/29/2025 9:38 AM EDT Patient notified of results and provider's instructions. Patient verbalizes understanding. Qasim Patterson LPN [facility]07-21-2025 Miscellaneous Notes* Telephone Encounter - Qasim Patterson LPN - 01/29/2025 9:38 AM EDT Patient notified of results and provider's instructions. Patient verbalizes understanding. Qasim Patterson LPN * Telephone Encounter - Jaylin Combs PA-C - 01/28/2025 9:17 PM EDT Let patient know that overall xray of ankle is normal. She does have a bone spur. Continue with seeing podiatry documented [facility] Telephone encounter Note * Telephone Encounter - Jaylin Combs PA-C - 01/28/2025 9:17 PM EDT Let patient know that overall xray of ankle is normal. She does have a bone spur. Continue with seeing podiatry [facility]07-14-2025 History of Present illness Narrative* Matheus [...] PATIENT PRESENTS WITH AN IMPLANTABLE OR ATTACHED MANAGER STUDENT SERVICES: No RADIOLOGY DEPARTMENT: General X-ray: Exam(s) Completed: Lower Extremity X- Ray(s): Ankle, Left and Wt. Bearing PERIPHERAL IV DATA: Not applicable SIGNED BY: RT Sunny(R) January 22, 2025 1:05 PM documented in this encounterMer[facility]-14-2025 NoteHNO ID: [id number] Author: MATHEUS TIRADO RT(R) Service: ? Author Type: Technologist [...] PATIENT PRESENTS WITH AN IMPLANTABLE OR ATTACHED MANAGER STUDENT SERVICES: No RADIOLOGY DEPARTMENT: General X-ray: Exam(s) Completed: Lower Extremity X-Ray(s): Ankle, Left and Wt. Bearing PERIPHERAL IV DATA: Not applicable SIGNED BY: RT Sunny(R) January 22, 2025 1:05 [facility]07-14-2025 NoteHNO ID: [id number] Author: JAYLIN COMBS PA-C Service: ? Author Type: Physician Zanjero Type: Progress Notes Filed: 01/22/2025 13:00 Note [...] Chronic bilateral low back pain 01/01/2016 Seen [facility] Chronic pain of both ankles 09/27/2020 [...] hernia 07/22/2016 Left hip pain 09/14/[address] [facility] [address] Xander Martinez Left lateral abdominal [...] hand smoke exposure 11/08/2023 Senile osteoporosis 01/05/2006 Licensed Occupational Therapist following (Dr. Dobson) Simple cyst of breast [...] Fundoplication.(Dr. Lincoln Esquivel Gen (more content not included)...[facility]07-14-2025 History of Present illness Narrative* Jaylin Combs [...] hernia 07/22/2016 Left hip pain 09/14/[address] [facility] [address] Xander Martinez Left lateral abdominal [...] hand smoke exposure 11/08/2023 Senile osteoporosis 01/05/2006 Licensed Occupational Therapist following (Dr. Dobson) Simple cyst of breast [...] HISTORY OF 02/11/2017 laproscopic Walter Fundoplication.(Dr. [facility]) PAST SURGICAL HISTORY OF Right 12/2021 Tx of meniscus tear and Fx PAST SURGICAL HISTORY OF Left removal of foreign body in left foot. RECONSTRUCT VAGINAL WALL WITH MESH 04/2015 REMOVE CATARACT, INSERT LENS,EX 02/28/2009 Both Eyes REMV CATARACT EXTRACAP,INSERT LENS Bilateral RETROARC BLADDER SLING [id number] 09/03/2015 retroarc tension free vaginal sling TONSILLECTOMY [...] and management. Jaylin Combs PA-C Recording using [employer] software for draft documentation of the visit was discussed with the patient/authorized hvac sales representative; all questions welcomed and answered. Patient/authorized hvac sales representative agreed to proceed documented in this encounterMer[facility]25 Telephone encounter Note * Telephone Encounter - Lidya Huerta LPN - 01/18/2025 11:53 AM EDT [facility] 02/15/24 Patient phones requesting refills as follows: Requested Prescriptions Pending Prescriptions Disp Refills montelukast (SINGULAIR) 10 mg tablet 90 tablet 2 Sig: Take 1 tablet by mouth daily at bedtime. Please review and advise. Lidya Huerta LPN [facility]07-10-2025 Miscellaneous Notes* Telephone Encounter - Lidya Huerta LPN - 01/18/2025 11:53 AM EDT [facility] 02/15/24 Patient phones requesting refills as [...] 18, 2025 11:05 AM documented in this encounterMer[facility]-2025 Telephone encounter Note * Telephone Encounter [...] Jesus MA January 18, 2025 11:05 AM [facility]07-10-2025 Telephone encounter Note* Telephone Encounter - Iesha Rosado MA - 01/18/2025 10:21 AM EDT Pt notified and voiced understanding. Iesha Rosado MA [facility]07-10-2025 Miscellaneous Notes* Telephone Encounter - Iesha [...] needs her meds send to [facility]. She is also asking if [...] 16, 2025 9:33 AM documented in this encounterMer[facility]07-[facility]-2025 Telephone encounter Note * Telephone Encounter [...] was identified. 01/16/2025 by Scot Blank MD [facility]07-08-2025 Telephone encounter Note* Telephone Encounter - Claudia Flor - 01/16/2025 9:33 AM EDT Patient needs her meds send to [facility]. She is also asking if the Ambien can be sent in for 3 months at a time. [facility]07-08-2025 Telephone encounter Note* Telephone Encounter - [...] Sangita Fitzgerald January 16, 2025 9:33 AM [facility]05-06-2025 Telephone encounter Note* Telephone Encounter - Amalia Richards LPN - 11/14/2024 4:40 PM EDT Phoned patient went over notes below from Dr Blank with understanding. [facility]05-06-2025 Miscellaneous Notes* Telephone Encounter - Amalia [...] for up to 30 days. Authorizing Provider: CSOT BLANK MD PDMP website checked and validated. [...] to send the 5 mg ambien to [facility]. Pended but pcp will need to fill out script with the details. Last ov: 10/24/24 Next ov: 04/26/25 documented in this encounterMercy Health [facility]25 Telephone encounter Note * Telephone Encounter [...] was identified. 11/14/2024 by Scot Blank MD [facility]05-06-2025 Telephone encounter Note* Telephone Encounter - [...] to send the 5 mg ambien to [facility]. Pended but pcp will need to fill out script with the details. Last ov: 10/24/24 Next ov: 04/26/25 [facility]04-16-2025 Telephone encounter Note* Telephone Encounter - Jaylin Combs PA-C - 10/25/2024 2:40 PM EDT The following approved medication requests have been transmitted electronically. Requested Prescriptions Signed Prescriptions Disp Refills methylPREDNISolone (MEDROL, JOLEEN,) 4 mg Dose-Pack 21 tablet 0 Sig: Follow dosing instructions, take with food. Authorizing Provider: JAYLIN COMBS PA-C [facility]04-16-2025 Miscellaneous Notes* Telephone Encounter - Jaylin [...] appear that script was sent in. [facility]. Pt requests [facility] pharmacy in [place]. documented in this encounterMercy Health – [facility]04-16-2025 Telephone encounter Note * Telephone Encounter [...] sent in. Will msg provider. [facility] [place]04-15-2025 NoteHNO ID: [id number] Author: JAYLIN COMBS PA-C Service: ? Author Type: Physician Zanjero Type: Progress Notes Filed: 10/24/2024 14:39 Note [...] hand smoke exposure 11/08/2023 Senile osteoporosis 01/05/2006 Licensed Occupational Therapist following (Dr. Dobson) Simple cyst of breast [...] multiple PAST SURGICAL HISTOR (more content not included)...[facility] 10-24-2024 History of Present illness Narrative* Jaylin [...] hernia 07/22/2016 Left hip pain 09/14/[address] [place] [address] Xander Martinez Left lateral abdominal [...] hand smoke exposure 11/08/2023 Senile osteoporosis 01/05/2006 Licensed Occupational Therapist following (Dr. Dobson) Simple cyst of breast [...] HISTORY OF 02/11/2017 laproscopic Walter Fundoplication.(Dr. [facility]) PAST SURGICAL HISTORY OF Right 12/2021 Tx of meniscus tear and Fx PAST SURGICAL HISTORY OF Left removal of foreign body in left foot. RECONSTRUCT VAGINAL WALL WITH MESH 04/2015 REMOVE CATARACT, INSERT LENS,EX 02/28/2009 Both Eyes REMV CATARACT EXTRACAP,INSERT LENS Bilateral RETROARC BLADDER SLING [id number] 09/03/2015 retroarc tension free vaginal sling TONSILLECTOMY [...] Dose Pack to reduce inflammation. - Recommended PT/care mgr. patient prefers chiropractor at this time. - If symptoms persist, will consider imaging and structured physical therapy. Jaylin Combs PA-C Recording using [employer] software for draft documentation of the visit was discussed with the patient/authorized hvac sales representative; all questions welcomed and answered. Patient/authorized hvac sales representative agreed to proceed documented in this encounterMercy Health [facility]04-07-2025 NoteHNO ID: [id number] Author: BRYSON DHILLON MD Service: ? Author Type: Physician Type: Progress Notes Filed: 10/16/2024 18:30 Note Text: Bryson Dhillon MD Department of Orthopaedics Orthopaedics [address] [facility] [address] Dept: [phone] Dept October 16, 2024 CHIEF COMPLAINT: Post [...] draft documentation of the visit consistent with [facility]?s Notice of Privacy Practices. [facility] History of Present illness Narrative* Bryson Dhillon MD - 10/16/2024 12:50 PM EDT Bryson Dhillon MD Department of Orthopaedics Orthopaedics [address] [facility] [address] Dept: [phone] Dept October 16, 2024 CHIEF COMPLAINT: Post [...] The patient consented to the use of [employer] software for draft documentation of the visit consistent with [facility] s Notice of Privacy Practices. Bryson Dhillon MD documented in this encounterMercy Health [facility]2025 Telephone encounter Note * Telephone Encounter - Scot Blank MD - 10/04/2024 4:56 PM EDT The following approved medication requests have been transmitted electronically. Requested Prescriptions Signed Prescriptions Disp Refills Cyanocobalamin 1,000 mcg TbER 90 tablet 3 Sig: Take 1 tablet by mouth once daily. Scot Blank MD [facility]2025 Miscellaneous Notes* Telephone Encounter - Scot [...] Thanks. Jaylin Combs PA-C documented in this encounterMercy Health – The [facility] Hospital2025 Telephone encounter Note * Telephone Encounter - Treasure Sanchez MA - 10/04/2024 3:05 PM EDT Spoke with patient and gave results. She voiced understanding. She would like a prescription sent in to see if they will pay for it. Meijers. Treasure Sanchez MA [facility]03-25-2025 History of Present illness Narrative* Allison [...] PATIENT PRESENTS WITH AN IMPLANTABLE OR ATTACHED MANAGER STUDENT SERVICES: No RADIOLOGY DEPARTMENT: Mammography PERIPHERAL IV DATA: Not applicable SIGNED BY: RT Tai(R) October 03, 2024 2:42 PM documented in this encounterMercy Health – The [facility] Hospital03-25-2025 NoteHNO ID: [id number] Author: ALLISON SAWANT RT(Flavio) Service: ? Author [...] PATIENT PRESENTS WITH AN IMPLANTABLE OR ATTACHED MANAGER STUDENT SERVICES: No RADIOLOGY DEPARTMENT: Mammography PERIPHERAL IV DATA: Not applicable SIGNED BY: RT Tai(R) October 03, 2024 2:42 [facility]03-17-2025 Telephone encounter Note* Telephone Encounter - Qasim Patterson LPN - 09/25/2024 1:39 PM EDT Left message with pt's spouse for pt to contact office. Qasim Patterson LPN [facility]03-17-2025 Telephone encounter Note* Telephone Encounter - Jaylin Combs PA-C - 09/25/2024 12:59 PM EDT I just realized patient rescheduled her visit and now scheduled in October. Let her know we will discuss her labs then, but if she wants, she can start a b12 1000mcg supplement once daily. Her b12 level was quite low. Thanks. Jaylin Combs PA-C [facility]03-10-2025 Telephone encounter Note* Telephone Encounter - [...] use her best judgement. She verbalized understanding. [facility]03-10-2025 Miscellaneous Notes* Telephone Encounter - Haritha [...] 07/26/24 Tamanna Harrington RN documented in this encounterMercy Health – The Jewish Hospital03-10-2025 NoteHNO ID: [id number] Author: XANDER WU PT Service: ? Author [...] to 09/18/2024 and treatment included: Therapeutic exercise, Self-halfway management, and Patient/Family/Caregiver Education. Goals updated 09/18/24 Goals for Episode of Care: created on 03/08/19 through 04/19/19 [place] in home exercise program. - Met Patient [...] to prior functional status. 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 Goals updated 09/18/24 Goals for Episode of Care: created on 03/08/19 through 04/19/19 [place] in home exercise program. - Met Patient [...] to prior functional status. 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 s/p right TKR on 07/26/24 Tamanna Harrington RN [facility]03-07-2025 NoteHNO ID: [id number] Author: XANDER WU PT Service: ? Author [...] Session Stop Time : 1135 Xander Wu [facility]03-07-2025 History of Present illness Narrative* Xander Wu, [...] 113 Xander Jazmin, PT documented in this encounterMercy Health – The Jewish Hospital03-03-2025 NoteHNO ID: [id number] Author: XANDER WU PT Service: ? Author [...] Session Stop Time : 1128 Xander Wu [facility]03-03-2025 History of Present illness Narrative* Xander Wu [...] 1128 Xander Wu PT documented in this encounterMercy Health – The Jewish Hospital02-28-2025 NoteHNO ID: [id number] Author: O'JACQUES, LISSA, PT Service: ? Author [...] LEVEL OF FUNCTION: TREATMENT: Therapeutic Exercise: 1: [employer] stepper seat 13, level 1, 1:1 throughout [...] Session Stop Time : 951 Lissa Lira, [facility]02-28-2025 History of Present illness Narrative* Lissa Lira, [...] LEVEL OF FUNCTION: TREATMENT: Therapeutic Exercise: 1: [employer] stepper seat 13, level 1, 1:1 throughout [...] 951 Lissa Lira PT documented in this encounterMercy Health – The [facility] Hospital02-26-2025 Telephone encounter Note * Telephone Encounter [...] Patterson LPN September 06, 2024 7:20 AM [facility]02-26-2025 Miscellaneous Notes* Telephone Encounter - Qasim [...] 05, 2024 4:42 PM documented in this encounterMercy Health – The Jewish Hospital02-25-2025 Telephone encounter Note * Telephone Encounter [...] Farzana Fitzgerald September 05, 2024 4:42 PM [facility]02-24-2025 NoteHNO ID: [id number] Author: XANDER WU PT Service: ? Author [...] Session Stop Time : 1127 Xander Wu [facility]02-24-2025 History of Present illness Narrative* Xander Wu [...] 1127 Xander Wu PT documented in this encounterMercy Health – The Jewish Hospital02-24-2025 NoteHNO ID: [id number] Author: BRYSON DHILLON MD Service: ? Author Type: Physician Type: Progress Notes Filed: 09/04/2024 12:29 Note Text: Bryson Dhillon MD Department of Orthopaedics Orthopaedics [address] [facility] [address] Dept: [phone] Dept September 04, 2024 CHIEF COMPLAINT: Established [...] Hcl], Sulfamethizole, and Symax-Sl [Hyoscyamine Sulfate] [facility]02-24-2025 History of Present illness Narrative* Bryson Dhillon MD - 09/04/2024 9:57 AM EST Bryson Dhillon MD Department of Orthopaedics Orthopaedics [address] [facility] [address] Dept: [phone] Dept September 04, 2024 CHIEF COMPLAINT: Established [...] Sulfate] Bryson Dhillon MD documented in this encounterMercy Health – The [facility] Hospital02-17-2025 History of Present illness Narrative* Lissa Lira, PT - 08/28/2024 3:59 PM EST Program_ID:[id number] Access Code: [email or web address] URL: [email or web address] Date: 08-28-2024 Prepared By: Lissa Lira Program [...] chair UR support 3x15 3: *Access Code: [email or web address] URL: [email or web address] Date: 08/28/2024 Prepared by: Lissa Donovan Exercises [...] Gait belt utilized during session for safety. Self-Long-Term Management: 1: discussed using SC to improve [...] 1600 Lissa Lira PT documented in this encounterMercy Health – The Jewish Hospital02-17-2025 NoteHNO ID: [id number] Author: LISSA LIRA PT Service: ? Author [...] chair UR support 3x15 3: *Access Code: [email or web address] URL: [email or web address] Date: 08/28/2024 Prepared by: Lissa Lira Exercises [...] Gait belt utilized during session for safety. Self-Long-Term Management: 1: discussed using SC to improve [...] Session Stop Time : 1600 Lissa Lira [facility]02-10-2025 NoteHNO ID: [id number] Author: LISSA LIRA PT Service: ? Author [...] LEVEL OF FUNCTION: TREATMENT: Therapeutic Exercise: 1: [employer] stepper seat 13, level 1, 1:1 throughout [...] facilitated with verbal, tactile, and visual cueing. Self-Long-Term Management: 1: encouraged continued cane use to [...] Session Stop Time : 1601 Lissa Lira, [facility]02-10-2025 History of Present illness Narrative* Lissa Lira, [...] facilitated with verbal, tactile, and visual cueing. Self-Long-Term Management: 1: encouraged continued cane use to [...] 1601 Lissa Lira PT documented in this encounterMercy Health – The [facility] Hospital02-03-2025 Telephone encounter Note * Telephone Encounter [...] Please review and advise. Lidya Huerta LPN [facility]02-03-2025 Miscellaneous Notes* Telephone Encounter - Lidya [...] advise. Lidya Huerta LPN documented in this encounterMercy Health – The Jewish Hospital02-03-2025 NoteHNO ID: [id number] Author: XANDER WU PT Service: ? Author [...] Goals for Episode of Care: established 08/14/24 [place] in home exercise program. Patient will decrease [...] Planned: 8 Planned Treatment Interventions: Therapeutic exercise (15249), Manual therapy (05462), Neuromuscular re-education (81160), Therapeutic activities (92323), Self-halfway management (24975), Gait Training (58033), Patient/Family/Caregiver Education PLAN FOR NEXT VISIT: STS, [...] Performance Response to Educ (more content not included)...[facility] 08-14-2024 History of Present illness Narrative* Xander [...] Goals for Episode of Care: established 08/14/24 [place] in home exercise program. Patient will decrease [...] Planned: 8 Planned Treatment Interventions: Therapeutic exercise (49137), Manual therapy (04179), Neuromuscular re-education (81954), Therapeutic activities (60162), Self-halfway management (30379), Gait Training (43833), Patient/Family/Caregiver Education PLAN FOR NEXT VISIT: STS, [...] 1045 Xander Wu PT documented in this encounterMercy Health – The Jewish Hospital01-31-2025 Miscellaneous Notes* PT DISCHARGE - Jazzy [...] summary for intervention/education details. documented in this encounterMercy Health – The Jewish Hospital01-31-2025 Patient's home Note* PT DISCHARGE - [...] 08/14/24 See intervention summary for intervention/education details. [facility] Work Phone: [phone] Miscellaneous Notes* PT ROUTINE/REASSESSMENT/RECERT/CASE MGMT - Sallei Hi, PROPERTY SITE MANAGER - 08/10/2024 1:20 PM EST SITUATION: spouse [...] summary for intervention/education details. documented in this encounterMercy Health – The Jewish Hospital01-30-2025 Patient's home Note* PT ROUTINE/REASSESSMENT/RECERT/CASE MGMT [...] DC See intervention summary for intervention/education details. [facility] Work Phone: [phone] Miscellaneous Notes* PT ROUTINE/REASSESSMENT/RECERT/CASE MGMT - Sallie [...] summary for intervention/education details. documented in this encounterMercy Health – The Jewish Hospital01-28-2025 Patient's home Note* PT ROUTINE/REASSESSMENT/RECERT/CASE MGMT [...] HEP See intervention summary for intervention/education details. [facility] Work Phone: [phone] NoteHNO ID: [id number] Author: REBEKAH EDUARDO PA-C Service: ? Author Type: Physician Zanjero Type: Progress Notes Filed: 08/07/2024 14:13 Note Text: Ortho Knee Follow Up Note Narrative Referring Provider: Bryson Dhillon [address] [facility] [address] PCP: Scot Blank MD IMPRESSION/PLAN: 74 year [...] Implants are well aligned (more content not included)...[facility]01-27-2025 History of Present illness Narrative* Rebekah Eduardo PA-C - 08/07/2024 2:11 PM EST Images from the original note were not included. Ortho Knee Follow Up Note Narrative Referring Provider: Bryson Dhillon [address] [facility] [address] PCP: Scot Blank MD IMPRESSION/PLAN: 74 year [...] done today. with patient. documented in this encounterMercy Health – The [facility] Hospital01-27-2025 NoteHNO ID: [id number] Author: NORA ESCALANTE MA Service: ? Author Type: Information Management Manager Type: Progress Notes Filed: 08/07/2024 14:13 Note [...] for a refill. X-rays done today. with patient.[facility]01-27-2025 History of Present illness Narrative* Grant Nettles [...] PATIENT PRESENTS WITH AN IMPLANTABLE OR ATTACHED MANAGER STUDENT SERVICES: No RADIOLOGY DEPARTMENT: General X-ray: Exam(s) Completed: Lower Extremity X- Ray(s): Knee, AP / Lat / Merchant Right and Wt. Bearing PERIPHERAL IV DATA: Not applicable SIGNED BY: RT Breanna(Flavio) August 07, 2024 8:50 PM documented in this encounterMercy Health – The Jewish Hospital01-27-2025 NoteHNO ID: [id number] Author: GRANT NETTLES RT(R) Service: ? Author [...] PATIENT PRESENTS WITH AN IMPLANTABLE OR ATTACHED MANAGER STUDENT SERVICES: No RADIOLOGY DEPARTMENT: General X-ray: Exam(s) Completed: Lower Extremity X-Ray(s): Knee, AP / Lat / Merchant Right and Wt. Bearing PERIPHERAL IV DATA: Not applicable SIGNED BY: RT Breanna(R) August 07, 2024 8:50 [facility]01-24-2025 Miscellaneous Notes * PT ROUTINE/REASSESSMENT/RECERT/CASE MGMT [...] summary for intervention/education details. documented in this encounterMercy Health – The Jewish Hospital01-24-2025 Patient's home Note* PT ROUTINE/REASSESSMENT/RECERT/CASE MGMT [...] training See intervention summary for intervention/education details. [facility] Work Phone: [phone] Telephone encounter Note* Telephone Encounter - Sallie Hi PTA - 08/02/2024 3:28 PM EST Removed surgical bandage today. No concerns. Picture uploaded to chart. Thanks [facility] Work Phone: [phone] 485-173301-22-2025 Miscellaneous Notes* Telephone Encounter - Sallie Hi PTA - 08/02/2024 3:28 PM EST Removed surgical bandage today. No concerns. Picture uploaded to chart. Thanks documented in this encounterMercy Health – The Jewish Hospital01-22-2025 Miscellaneous Notes* PT ROUTINE/REASSESSMENT/RECERT/CASE MGMT - [...] summary for intervention/education details. documented in this encounterMercy Health – The Jewish Hospital01-22-2025 Patient's home Note* PT ROUTINE/REASSESSMENT/RECERT/CASE MGMT [...] flexion See intervention summary for intervention/education details. [facility] Work Phone: [phone] Telephone encounter Note* Telephone Encounter - Dorita [...] Patino RN August 01, 2024 9:13 AM [facility]01-21-2025 Miscellaneous Notes* Telephone Encounter - Dorita [...] 01, 2024 9:13 AM documented in this encounterMercy Health – The Jewish Hospital01-20-2025 Miscellaneous Notes* PT ROUTINE/REASSESSMENT/RECERT/CASE MGMT - [...] Demonstarted and voiced understanding left message w/ logging equipment mechanic to schedule OP PT Plan of care, goals, and visit frequency reviewed and agreed upon with patient and/or caregiver. Current Discharge Plan: outpatient rehab Anticipate discharge by 08/11/24 RECOMMENDATION: Next visit to focus on bandage removal See intervention summary for intervention/education details. documented in this encounterMercy Health – The [facility] Hospital01-20-2025 Patient's home Note* HH PT ROUTINE/REASSESSMENT/RECERT/CASE [...] Demonstarted and voiced understanding left message w/ logging equipment mechanic to schedule OP PT Plan of care, goals, and visit frequency reviewed and agreed upon with patient and/or caregiver. Current Discharge Plan: outpatient rehab Anticipate discharge by 1/31/25 RECOMMENDATION: Next visit to focus on bandage removal See intervention summary for intervention/education details. [facility] Work Phone: [phone] Miscellaneous Notes* CARE COORDINATION - Gaviota Holt RN - 07/31/2024 11:31 AM EST Medication review completed. No ineffective drug therapy, significant side effects, significant drug interactions, duplicate drug therapy, or noncompliance with drug therapy noted. Gaviota Holt RN documented in this encounterMercy Health – The Jewish Hospital01-20-2025 Patient's home Note* CARE COORDINATION - Gaviota Holt RN - 07/31/2024 11:31 AM EST Medication review completed. No ineffective drug therapy, significant side effects, significant drug interactions, duplicate drug therapy, or noncompliance with drug therapy noted. Gaviota Holt RN [facility] Work Phone: [phone] 428-132201-17-2025 Miscellaneous Notes* PT SOC/CHELA/FOLLOW UP/OTHER - Jazzy Pereira, PT - 07/28/2024 1:31 PM EST SITUATION: spouse present during today's visit. patient reports this is really uncomfortable . BACKGROUND: Diagnoses (reason for Home Care): [facility] 07/26/24 -.07/27/2024 Primary Diagnoses (reason for [...] indep w/o ad ASSESSMENT: Patient evaluated by [facility] physical therapy. Reviewed and explained [...] summary for intervention/education details. documented in this encounterMercy Health – The Jewish Hospital01-17-2025 Patient's home Note* PT SOC/CHELA/FOLLOW UP/OTHER - Jazzy Pereira, PT - 07/28/2024 1:31 PM EST SITUATION: spouse present during today's visit. patient reports this is really uncomfortable . BACKGROUND: Diagnoses (reason for Home Care): [facility] 07/26/24 -.07/27/2024 Primary Diagnoses (reason for [...] indep w/o ad ASSESSMENT: Patient evaluated by [facility] physical therapy. Reviewed and explained [...] none. See intervention summary for intervention/education details. [facility] Work Phone: [phone] Telephone encounter Note* Telephone Encounter - Dawn Vincent PSS - 07/27/2024 12:13 PM EST Date/Time: 07/27/2024 12:13 PM Spoke with HollyMati (Spouse) @ phone #: [phone] - Preferred # for contact: [phone] Have you received help from a home care company in the last 60 days? no Are you agreeable to [facility] services? yes What address will we be seeing you at? [address] [facility] [address] Do you have any upcoming appointments or things we need to schedule around? no Do you have a teachable CG or can you manage your care independently? yes Who? Mati Camarillo (Spouse) Have you received the flu shot? no If so, when and where? na [facility]01-16-2025 Miscellaneous Notes* Telephone Encounter - Dawn Vincent PSS - 07/27/2024 12:13 PM EST Date/Time: 07/27/2024 12:13 PM Spoke with Mati Camarillo (Spouse) @ phone #: [phone] - Preferred # for contact: [phone] Have you received help from a home care company in the last 60 days? no Are you agreeable to [facility] services? yes [address] will we be [address] you at[address] [facility] [facility] [address] Do you have any upcoming appointments or things we need to schedule around? no Do you have a teachable CG or can you manage your care independently? yes Who? Mati Camarillo (Spouse) Have you received the flu shot? no If so, when and where? na documented in this encounterMercy Health – The [facility] Hospital01-16-2025 NoteHNO ID: [id number] Author: MARINO LU MD Service: General Internal [...] the last 24 hours. SIGNATURE: Marino Lu, [place] [facility] [id number] NoteHNO ID: [id number] Author: GINA SAMAYOA PA-C Service: Orthopaedic Surgery Author Type: Physician Zanjero Type: Progress Notes Filed: 07/27/2024 11:23 Note [...] 07/26/241614 VTE RISK CATEGORY: SURGICAL HIGH RISK ([place]) Active VTE Medication Orders: Anticoagulant AND Antiplatelet Medications (From admission, onward) Start Dose Route Frequency Last Action Ordered Stop 07/27/24 0900 aspirin, enteric coated 81 mg tab(s) (Surgical Risk Categories) 81 mg ORAL 2 TIMES DAILY Given, 07/27 75607/26/241613 -- Active VTE Prophylaxis Orders: 07/26/241614 PNEUMATIC COMPRESSION SLEEVE(S) (VA,AL) PHYSICAL EXAMINATION: Right Lower Extremity: Dorsalis pedis [...] addiction). Patient demonstrated understanding of risks versus benefits.[facility] [id number] NoteHNO ID: [id number] Author: BRIELLE LE APRN.MEDICAL ENGINEER Service: General Surgery Author Type: Nurse Practitioner [...] [place] DATE: July 26, 2024 TIME: 5:08 PMPromedica Fostoria Community [id number] NoteHNO ID: [id number] Author: FÁTIMA BOOTHE MD Service: ? Author [...] July 26, 2024 TIME: 4:30 PM CSN: [id number] NoteHNO ID: [id number] Author: KOPKAS, CHARLEY, ADVERTISING INTERNSHIP.NURSES MEDICAL ASSISTANTS PHLEBOTOMISTS Service: ? Author Type: Nurse Outpatient Dietitian Type: Anesthesia Procedure Notes Filed: 07/26/2024 09:11 Note Text: ANESTHESIOLOGY PROCEDURE NOTE Spinal Block General Information Procedure Start Time/Medication Administration: 07/26/2024 8:39 AM Procedure End time: 07/26/2024 8:43 AM Patient location during procedure: OR Timeout Performed Pre-procedure: timeout performed Reason for Block: primary surgical anesthetic Staffing NURSES MEDICAL ASSISTANTS PHLEBOTOMISTS: Charley Willoughby APRN.NURSES MEDICAL ASSISTANTS PHLEBOTOMISTS Performed by: BERNADINE Preparation Sterility Preparation: hand [...] - 07/26/2024 8:39:00 AM SIGNATURE: Charley Willoughby APRN.NURSES MEDICAL ASSISTANTS PHLEBOTOMISTS PATIENT NAME: Nora [place]ar[place] DATE: July 26, 2024 TIME: 9:09 AM CSN: [id number] Telephone encounter Note* Telephone Encounter - Rebekah [...] is staying out of the cold air. [facility] Work Phone: [phone] 329-276701-13-2025 Miscellaneous Notes* Telephone Encounter - Rebekah Eduardo [...] it. Lissa Rosa LPN documented in this encounterMer[facility]01-13-2025 Telephone encounter Note * Telephone Encounter [...] this would push her surgery date back??? [facility]01-13-2025 Telephone encounter Note* Telephone Encounter - Lissa Rosa LPN - 07/24/2024 9:10 AM EST Patient called and states she has a sinus infection that started last and is getting better. She is wondering if you still wanted to keep her surgery on Wednesday? She just has some congestion, denies fever and has not been on any antibiotics for it. Lissa Rosa LPN [facility]12-27-2024 History of Present illness Narrative* Lima [...] PATIENT PRESENTS WITH AN IMPLANTABLE OR ATTACHED MANAGER STUDENT SERVICES: No CREATININE: Creatinine Date Value Ref Range [...] Discontinued PROCEDURE TYPE: NM Stress: 13.3 mCi Ec73b-Ojkumzb was administered IV for Rest Imaging at 12:45 by . 36 mCi Pt69v-Nvmxfdl was administered IV for Stress Imaging at [...] 1:11 PM PAGER/CONTACT #: documented in this encounterMercy Health [facility]12-27-2024 NoteHNO ID: [id number] Author: LIMA SUNSHINE CNMT Service: Radiology Author [...] PATIENT PRESENTS WITH AN IMPLANTABLE OR ATTACHED MANAGER STUDENT SERVICES: No CREATININE: Creatinine Date Value Ref Range [...] Discontinued PROCEDURE TYPE: NM Stress: 13.3 mCi Fp96v-Comazxz was administered IV for Rest Imaging at 12:45 by . 36 mCi Xi25h-Rzhpzup was administered IV for Stress Imaging at 13:40 by mm. PATIENT DISCHARGED TO: Ambulatory patient, left [place] department area. Is this a therapy: No A Diagnostic radioactive procedure has taken place, with no further precautions necessary other than routine body substance precautions. More information regarding radiation safety can be found using this link: [email or web address] SIGNATURE: PILAR BoboMT PATIENT NAME: Nora [place] DATE: July 07, 2024 TIME: 1:11 PM PAGER/CONTACT #:[facility] [id number] Telephone encounter Note * Telephone Encounter - Shakila Sotelo RN - 07/06/2024 3:16 PM EST Spoke to pt regarding reminder and instructions for stress test tomorrow. This included where to check in, length of test and no caffeine for 12 hours prior to test. [facility]12-26-2024 Miscellaneous Notes* Telephone Encounter - Shakila Sotelo RN - 07/06/2024 3:16 PM EST Spoke to pt regarding reminder and instructions for stress test tomorrow. This included where to check in, length of test and no caffeine for 12 hours prior to test. documented in this encounterMercy Health [facility]12-20-2024 Instructions* Patient Instructions* Yari Rincon, KJ.MEDICAL ENGINEER - 06/30/2024 9:32 AM EST Images from the original note were not included. [facility] PATIENT PREOPERATIVE INSTRUCTIONS Bryosn Dhillon MD has scheduled you for your procedure at this surgery center: [facility]: [phone] -- [address] [address]. Please read below carefully for your personalized [...] office. If you are currently using a znps-dry-qskh injectable or oral medication for diabetes or [...] Procedures: - YOU MUST HAVE A RESPONSIBLE BLOCK CUBER TAKE YOU HOME. A FORGING OPERATOR OR POWDER ROOM ATTENDANT CANNOT BE MADE A RESPONSIBLE BLOCK CUBER. - We recommend that a responsible person [...] Advance Directive, please fax a copy to [phone] or email to for it to be [...] day. Yari Rincon APRN.CNP documented in this encounterMercy Health [facility]12-20-2024 History and physical note * Yari [...] large neck Non-male patient STOP-Bang Score: 1 [id number] Score: Age: 65-74 Sex: female CHF history: No Hypertension history: No Stroke/TIA/thromboembolism history: No Vascular disease history: Yes Diabetes history: No [id number] Score: 3 ARISCAT Score: Age: 51-80 Preoperative [...] fevers. Neurological: No history of TIA's, stroke, LOAN CLERK tumor, impaired sensorium, hemiplegia, paraplegia orquadraplegia. No [...] congenital heart defect, DVT/PE, hyperlipidemia, hypertension, recent WI, murmur/valvular heart disease, PTCA, open heart surgery and valve surgery. GI: Positive for: GERD (on rx, s/p walter) Negative for: abdominal pain, dysphagia, heartburn, hepatitis, irritable bowel syndrome, inflammatory bowel disease, liver disease, nausea, pancreatitis, vomiting and ETOH >2 drinks/day. : Negative for: urinary incontinence (hx bladder sling), nephrolithiasis, renal failure and urinary tract infection. 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 Dobson) Simple cyst of breast [...] HISTORY OF 02/11/2017 laproscopic Walter Fundoplication.([facility]) PAST SURGICAL HISTORY OF Right 12/2021 Tx of meniscus tear and Fx PAST SURGICAL HISTORY OF Left removal of foreign body in left foot. RECONSTRUCT VAGINAL WALL WITH MESH 04/2015 REMOVE CATARACT, INSERT LENS,EX 02/28/2009 Both Eyes REMV CATARACT EXTRACAP,INSERT LENS Bilateral RETROARC BLADDER SLING [id number] 09/03/2015 retroarc tension free vaginal sling TONSILLECTOMY [...] 468 QTC Calculation (Bazett) 478 Calculated P [place] 74 Calculated R [place] -26 Calculated T [place] 82 Impression NORMAL SINUS RHYTHM COMPLETE LEFT BUNDLE BRANCH BLOCK ABNORMAL ECG Recent Results (from the past 80879 hour(s)) ECHO Collection Time: 06/30/24 1:22 PM [...] 30, 2024 TIME: 9:26 AM PAGER/CONTACT #: [facility]12-20-2024 History and physical note* Yari Rincon APRN.CNP - 06/30/2024 9:26 AM EST Images from the original note were not included. [facility] Pre-Anesthesia [facility]ation [facility] HISTORY [...] large neck Non-male patient STOP-Bang Score: 1 [id number] Score: Age: 65-74 Sex: female CHF history: No Hypertension history: No Stroke/TIA/thromboembolism history: No Vascular disease history: Yes Diabetes history: No [id number] Score: 3 ARISCAT Score: Age: 51-80 Preoperative [...] fevers. Neurological: No history of TIA's, stroke, LOAN CLERK tumor, impaired sensorium, hemiplegia, paraplegia orquadraplegia. No [...] congenital heart defect, DVT/PE, hyperlipidemia, hypertension, recent WI, murmur/valvular heart disease, PTCA, open heart surgery and valve surgery. GI: Positive for: GERD (on rx, s/p walter) Negative for: abdominal pain, dysphagia, heartburn, hepatitis, irritable bowel syndrome, inflammatory bowel disease, liver disease, nausea, pancreatitis, vomiting and ETOH >2 drinks/day. : Negative for: urinary incontinence (hx bladder sling), nephrolithiasis, renal failure and urinary tract infection. 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 Xander Martinez Left lateral abdominal [...] hand smoke exposure 11/08/2023 Senile osteoporosis 01/05/2006 Licensed Occupational Therapist following (Dr. Dobson) Simple cyst of breast [...] HISTORY OF 02/11/2017 laproscopic Walter Fundoplication.([facility]) PAST SURGICAL HISTORY OF Right 12/2021 Tx of meniscus tear and Fx PAST SURGICAL HISTORY OF Left removal of foreign body in left foot. RECONSTRUCT VAGINAL WALL WITH MESH 04/2015 REMOVE CATARACT, INSERT LENS,EX 02/28/2009 Both Eyes REMV CATARACT EXTRACAP,INSERT LENS Bilateral RETROARC BLADDER SLING [id number] 09/03/2015 retroarc tension free vaginal sling TONSILLECTOMY [...] 468 QTC Calculation (Bazett) 478 Calculated P [place] 74 Calculated R [place] -26 Calculated T [place] 82 Impression NORMAL SINUS RHYTHM COMPLETE LEFT BUNDLE BRANCH BLOCK ABNORMAL ECG Recent Results (from the past 42867 hour(s)) ECHO Collection Time: 06/30/24 1:22 PM [...] and voices comprehension and compliance. 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 SIGNATURE: FRANKLIN Finley PATIENT NAME: Nora [place] DATE: June 14, 2024 TIME: 2:47 PM documented in this encounterMercy Health [facility]12-04-2024 Telephone encounter Note * Telephone Encounter - Haritha Pascual MA - 06/14/2024 1:20 PM EST Surgery has been scheduled as requested. [facility]12-04-2024 Miscellaneous Notes* Telephone Encounter - Haritha Pascual MA - 06/14/2024 1:20 PM EST Surgery has been scheduled as requested. * Telephone Encounter - Haritha Pascual MA - 06/14/2024 11:26 AM EST Surgical request completed for Robotic assisted [facility] on 07/26[facility]2024. CT scan scheduled for 06/23/2024. Post op appointments have been scheduled and mailed to the patient. Email sent to [facility]. documented in this encounterMercy Health [facility]12-04-2024 Telephone encounter Note * Telephone Encounter - Haritha Pascual MA - 06/14/2024 11:26 AM EST Surgical request completed for Robotic assisted right TKA at [facility] on 07/26/2024. CT scan scheduled for 06/23/2024. Post op appointments have been scheduled and mailed to the patient. Email sent to [email or web address]. [facility]12-02-2024 NoteHNO ID: [id number] Author: BRYSON DHILLON MD Service: ? Author Type: Physician Type: Progress Notes Filed: 07/09/2024 14:21 Note Text: CONSULT ORTHOPAEDIC: KNEE PRIMARY CARE PHYSICIAN: Scot Blank MD REFERRING PROVIDER: Rebekah [address] [facility] [address] ASSESSMENT AND PLAN Impression: Right Knee Moderate [...] below. Surgery Details Date and Location: At [facility] on 07/26/2024. Implants: [place] Robotic: Yes Predicted LOS: 2 days (Inpatient [...] [place] meets the following criteria for CT: [facility] protocol CONSULTS: Cardiology Consult for cardiac clearance [...] from Last 3 En (more content not included)...[facility]12-02-2024 History of Present illness Narrative* Bryson Dhillon MD - 06/12/2024 2:33 PM EST Images from the original note were not included. CONSULT ORTHOPAEDIC: KNEE PRIMARY CARE PHYSICIAN: Scot Blank MD REFERRING PROVIDER: Rebekah [address] [facility] [address] ASSESSMENT & PLAN Impression: Right Knee Moderate [...] below. Surgery Details Date and Location: At [facility] on 07/26/2024. 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 Dobson) Simple cyst of breast [...] HISTORY OF 02/11/2017 laproscopic Walter Fundoplication.([facility]) PAST SURGICAL HISTORY OF Right 12/2021 Tx of meniscus tear and Fx PAST SURGICAL HISTORY OF Left removal of foreign body in left foot. RECONSTRUCT VAGINAL WALL WITH MESH 04/2015 REMOVE CATARACT, INSERT LENS,EX 02/28/2009 Both Eyes REMV CATARACT EXTRACAP,INSERT LENS Bilateral RETROARC BLADDER SLING [id number] 09/03/2015 retroarc tension free vaginal sling TONSILLECTOMY [...] 2024 TIME: 3:13 PM documented in this encounterMercy Health [facility] Hospital11-29-2024 Telephone encounter Note * Telephone Encounter - Treasure Sanchez MA - 06/09/2024 11:20 AM EST Given to patient as 's visit. Treasure Sanchez MA [facility]11-29-2024 Miscellaneous Notes* Telephone Encounter - Treasure Sanchez MA - 06/09/2024 11:20 AM EST Given to patient as 's visit. Treasure Sanchez MA * Telephone Encounter - Quin Costa APRN.CNP - 06/09/2024 9:53 AM EST Please let patient know order has been placed and she can stop at my office to sisal picker letter. * Telephone Encounter - Angelia Jj - 06/09/2024 9:14 AM EST Nora is calling Scot Blank MD today to request a new handicap placard for patient to pick-up at [facility]. Please advise when ready for sisal picker at home phone below verified NOTE: patient asking if this is possible to pick-up today? She is in the building around 11:00 am today Patient has been identified by name and birthdate. Duration of symptoms: ongoing Person calling: self Call patient at: at home [phone] (home) [phone] (cell) Was an appointment scheduled: No Closing statement: Results or non-symptom based questions: Thank you for calling [facility], your call will be returned within the next business day. Angelia Santiago documented in this encounterMercy Health – [facility] Hospital11-29-2024 Telephone encounter Note * Telephone Encounter - Quin Costa APRN.CNP - 06/09/2024 9:53 AM EST Please let patient know order has been placed and she can stop at my office to sisal picker letter. [facility]11-29-2024 Telephone encounter Note* Telephone Encounter - Angelia Jj - 06/09/2024 9:14 AM EST Nora is calling Scot Blank MD today to request a new handicap placard for patient to pick-up at [facility]. Please advise when ready for sisal picker at home phone below verified NOTE: patient asking if this is possible to pick-up today? She is in the building around 11:00 am today Patient has been identified by name and birthdate. Duration of symptoms: ongoing Person calling: self Call patient at: at home [phone] (home) [phone] (cell) Was an appointment scheduled: No Closing statement: Results or non-symptom based questions: Thank you for calling [facility], your call will be returned within the next business day. Angelia Santiago [facility]11-29-2024 Telephone encounter Note* Telephone Encounter - [...] Angelia Santiago June 09, 2024 9:12 AM [facility]11-29-2024 Miscellaneous Notes* Telephone Encounter - Angelia [...] 09, 2024 9:12 AM documented in this encounterMercy Health – The [facility] Hospital11-18-2024 NoteHNO ID: [id number] Author: REBEKAH EDUARDO PA-C Service: ? Author Type: Physician Zanjero Type: Progress Notes Filed: 05/29/2024 09:48 Note Text: Rebekah Eduardo PA-C Department of Orthopaedics Orthopaedics [address] [facility] [address] Dept: [phone] Dept May 29, 2024 CHIEF COMPLAINT: Results [...] all contraindications were reviewed. OBJECTIVE: Ms. Nora Camarlilo is a pleasant 74 year old in [...] postoperative changes of medial tibial plateau subchondroplasty. Handbag Framer: NANCY Transcribe Date/Time: May 18 2024 1:25P [...] medial tibial plateau subchondro (more content not included)...[facility]11-18-2024 History of Present illness Narrative* Rebekah Eduardo PA-C - 05/29/2024 8:33 AM EST Rebekah Eduardo PA-C Department of Orthopaedics Orthopaedics [address] [facility] [place] [address] Dept: [phone] Dept May 29, 2024 CHIEF COMPLAINT: Results [...] postoperative changes of medial tibial plateau subchondroplasty. Handbag Framer: NANCY Transcribe Date/Time: May 18 2024 1:25P [...] HISTORY OF 02/11/2017 laproscopic Walter Fundoplication.([facility]) PAST SURGICAL HISTORY OF Right 12/2021 Tx of meniscus tear and Fx PAST SURGICAL HISTORY OF Left removal of foreign body in left foot. RECONSTRUCT VAGINAL WALL WITH MESH 04/2015 REMOVE CATARACT, INSERT LENS,EX 02/28/2009 Both Eyes REMV CATARACT EXTRACAP,INSERT LENS Bilateral RETROARC BLADDER SLING [id number] 09/03/2015 retroarc tension free vaginal sling TONSILLECTOMY [...] anxiety) This note was partially generated using Super Vitamin D voice recognition system, and there may be [...] needed. with patient today. documented in this encounterMercy Health [facility] Hospital11-18-2024 NoteHNO ID: [id number] Author: NORA ESCALANTE MA Service: ? Author Type: Information Management Manager Type: Progress Notes Filed: 05/29/2024 09:48 Note Text: Patient presents with: Right Knee - Results - Mri AMB ROOMING INTAKE FLOWSHEET DATA Pain Pain Level: 6 Pain Location: Knee-Right Description: Aching, Burning Duration Amount of Time: (Ongoing) Frequency: Continuous Intervention/Comfort measure: Medication Patient here for MRI results. Taking Aleve for the pain when needed. with patient today.[facility]11-06-2024 History of Present illness Narrative* Fadumo Echavarria [...] PATIENT PRESENTS WITH AN IMPLANTABLE OR ATTACHED MANAGER STUDENT SERVICES: No RADIOLOGY DEPARTMENT: MR; Exam(s) Completed: Lower MSK: Knee, right PERIPHERAL IV DATA: Not applicable SIGNED BY: RT Alphonse(Flavio) May 17, 2024 4:33 PM documented in this encounterMercy Health – [facility] Hospital11-06-2024 NoteHNO ID: [id number] Author: FADUMO ECHAVARRIA RT(R) Service: ? Author [...] PATIENT PRESENTS WITH AN IMPLANTABLE OR ATTACHED MANAGER STUDENT SERVICES: No RADIOLOGY DEPARTMENT: MR; Exam(s) Completed: Lower MSK: Knee, right PERIPHERAL IV DATA: Not applicable SIGNED BY: RT Alphonse(R) May 17, 2024 4:33 [facility]11-04-2024 NoteHNO ID: [id number] Author: REBEKAH EDUARDO PA-C Service: ? Author Type: Physician Zanjero Type: Progress Notes Filed: 05/15/2024 14:17 Note Text: Rebekah Eduardo PA-C Department of Orthopaedics Orthopaedics [address] [place] [address] Dept: [phone] Dept May 15, 2024 CHIEF COMPLAINT: Established [...] and degenerative changes in the RIGHT knee. Handbag Framer: NANCY Transcribe Date/Time: Mar 06 2024 4:09P Dictated by : CATHY VIDAL DO This examination was interpreted and the report reviewed and electronically signed by: CATHY VIDAL DO on Mar 06 2024 4:14PM EST Results-Findings * * *Final Report* * * DATE OF EXAM: Mar 03 2024 9:29AM REMBERTO 5203 - XR KNEE 4V AP/PA BOTH+LAT/REBEKA RT / PROCEDURE REASON: [id number] * * * * Physician Interpretation * [...] SNARE TQ 0 (more content not included)... [facility]11-04-2024 History of Present illness Narrative* Rebekah Eduardo PA-C - 05/15/2024 2:12 PM EST Rebekah Eduardo PA-C Department of Orthopaedics Orthopaedics [address] [facility] [address] Dept: [phone] Dept May 15, 2024 CHIEF COMPLAINT: Established [...] and degenerative changes in the RIGHT knee. Handbag Framer: NNACY Transcribe Date/Time: Mar 06 2024 4:09P Dictated by : CATHY VIDAL DO This examination was interpreted and the report reviewed and electronically signed by: CATHY VIDAL DO on Mar 06 2024 4:14PM EST Results-Findings * * *Final Report* * * DATE OF EXAM: Mar 03 2024 9:29AM REMBERTO 5203 - XR KNEE 4V AP/PA BOTH+LAT/REBEKA RT / PROCEDURE REASON: [id number] * * * * Physician Interpretation * [...] HISTORY OF 02/11/2017 laproscopic Walter Fundoplication.([facility]) PAST SURGICAL HISTORY OF Right 12/2021 Tx of meniscus tear and Fx PAST SURGICAL HISTORY OF Left removal of foreign body in left foot. RECONSTRUCT VAGINAL WALL WITH MESH 04/2015 REMOVE CATARACT, INSERT LENS,EX 02/28/2009 Both Eyes REMV CATARACT EXTRACAP,INSERT LENS Bilateral RETROARC BLADDER SLING [id number] 09/03/2015 retroarc tension free vaginal sling TONSILLECTOMY [...] anxiety) This note was partially generated using Super Vitamin D voice recognition system, and there may be [...] See comment (estephania nunez) documented in this encounterMercy Health [facility]11-04-2024 NoteHNO ID: [id number] Author: HARITHA PASCUAL MA Service: ? Author Type: Information Management Manager Type: Progress Notes Filed: 05/15/2024 14:17 Note Text: AMB ROOMING INTAKE FLOWSHEET DATA Pain Pain Level: 8 Pain Location: Knee-Right Description: Throbbing, Aching, Burning Duration Amount of Time: 2.5 Duration Units: Years Frequency: Continuous Intervention/Comfort measure: Other: See comment (estephania nunez)[facility]10-16-2024 Telephone encounter Note* Telephone Encounter - Scot [...] was identified. 04/26/2024 by Scot Blank MD [facility]10-16-2024 Miscellaneous Notes* Telephone Encounter - Scot [...] Thank you. Nakia Merida. documented in this encounterMercy Health [facility]10-16-2024 Telephone encounter Note * Telephone Encounter [...] 09/22/2024 Please advise. Thank you. Nakia Merida. [facility]10-15-2024 NoteHNO ID: [id number] Author: LIDYA PENA, DO Service: ? Author Type: Physician Type: Progress Notes Filed: 04/25/2024 09:20 Note Text: Heart, V[facility] Thoracic [place] DEPARTMENT OF VASCULAR SURGERY OUTPATIENT VISIT DATE April 25, 2024 OUTPATIENT VISIT TYPE CONSULTATION SERVICE DATE: 04/25/2024 SERVICE TIME: 8:12 AM PRIMARY CARE PHYSICIAN: Scot Blank MD REFERRING PROVIDER: Jaylin Combs [facility] [address] Consult requested for an opinion regarding the [...] iliac veins, completion venography and IVUS interrogation; [place] [employer] [place] venous stent [id number] PAIN ASSESSMENT: PAIN EVALUATION No data found [...] Chronic bilateral low back pain 01/01/2016 Seen [place] [facility] Chronic pain of both ankles 09/27/2020 [...] hand smoke exposure 11/08/2023 Senile osteoporosis 01/05/2006 Licensed Occupational Therapist following (Dr. Dobson) Simple cyst of breast [...] DIAGNOSTIC 05/22/2005 EGD H- (more content not included)...[facility]10-15-2024 History of Present illness Narrative* Lidya Pena, DO - 04/25/2024 8:12 AM EDT Images from the original note were not included. Heart, Vascular and Thoracic [place] DEPARTMENT OF VASCULAR SURGERY OUTPATIENT VISIT DATE April 25, 2024 OUTPATIENT VISIT TYPE CONSULTATION SERVICE DATE: 04/25/2024 SERVICE TIME: 8:12 AM PRIMARY CARE PHYSICIAN: Scot Blank MD REFERRING PROVIDER: Jaylin Combs [address] [facility] [place] [address] Consult requested for an opinion regarding the [...] iliac veins, completion venography and IVUS interrogation; BlackSquareVici venous stent [id number] PAIN ASSESSMENT: PAIN EVALUATION No data found [...] hand smoke exposure 11/08/2023 Senile osteoporosis 01/05/2006 Licensed Occupational Therapist following (Dr. Dobson) Simple cyst of breast [...] HISTORY OF 02/11/2017 laproscopic Walter Fundoplication.([facility]) PAST SURGICAL HISTORY OF Right 12/2021 Tx of meniscus tear and Fx PAST SURGICAL HISTORY OF Left removal of foreign body in left foot. RECONSTRUCT VAGINAL WALL WITH MESH 04/2015 REMOVE CATARACT, INSERT LENS,EX 02/28/2009 Both Eyes REMV CATARACT EXTRACAP,INSERT LENS Bilateral RETROARC BLADDER SLING [id number] 09/03/2015 retroarc tension free vaginal sling TONSILLECTOMY [...] 2024 TIME: 8:12 AM documented in this encounterMer[facility] Telephone encounter Note * Telephone Encounter - Amalia Richards LPN - 04/14/2024 2:52 PM EDT Patient returned call and went over results, notes from Jaylin TAYLOR with understanding. [facility]10-04-2024 Miscellaneous Notes* Telephone Encounter - Amalia [...] Thanks. Jaylin Combs PA-C documented in this encounterMercy Health [facility]10-04-2024 Telephone encounter Note * Telephone Encounter - Qasim Patterson LPN - 04/14/2024 10:58 AM EDT Left message for pt to contact office. Qasim Patterson LPN [facility]10-04-2024 Telephone encounter Note* Telephone Encounter - Jaylin Combs PA-C - 04/14/2024 10:04 AM EDT Let patient know that her carotid US is stable. Repeat 2 years. Thanks. Jaylin Combs PA-C [facility]09-13-2024 Instructions* Patient Instructions* Jaylin Combs PA-C [...] review all the medicines you take, even [id number] medicines. As you get older, the way [...] have certain medical conditions. documented in this encounterMercy Health [facility]09-13-2024 NoteHNO ID: [id number] Author: JAYLIN COMBS PA-C Service: ? Author Type: Physician Zanjero Type: Progress Notes Filed: 03/24/2024 11:47 Note [...] hernia 07/22/2016 Left hip pain 09/14/[address] [place] [address] Xander Martinez Left lateral abdominal [...] hand smoke exposure 11/08/2023 Senile osteoporosis 01/05/2006 Licensed Occupational Therapist following (Dr. Dobson) Simple cyst of breast [...] prolapse COLSC FLX W/RMV (more content not included)...[facility] 03-24-2024 History of Present illness Narrative* Jaylin [...] hernia 07/22/2016 Left hip pain 09/14/[address] [place] [address] Xander Martinez Left lateral abdominal [...] hand smoke exposure 11/08/2023 Senile osteoporosis 01/05/2006 Licensed Occupational Therapist following (Dr. Dobson) Simple cyst of breast [...] HISTORY OF 02/11/2017 laproscopic Walter Fundoplication.([facility]) PAST SURGICAL HISTORY OF Right 12/2021 Tx of meniscus tear and Fx PAST SURGICAL HISTORY OF Left removal of foreign body in left foot. RECONSTRUCT VAGINAL WALL WITH MESH 04/2015 REMOVE CATARACT, INSERT LENS,EX 02/28/2009 Both Eyes REMV CATARACT EXTRACAP,INSERT LENS Bilateral RETROARC BLADDER SLING [id number] 09/03/2015 retroarc tension free vaginal sling TONSILLECTOMY [...] months. Jaylin Combs PA-C documented in this encounterMercy Health [facility]08-23-2024 NoteHNO ID: [id number] Author: GARTH GONZALEZ PA-C Service: ? Author Type: Physician Zanjero Type: Progress Notes Filed: 03/03/2024 11:26 Note Text: HISTORY OF PRESENT ILLNESS: Nora is a 73 year old female. She is here for evaluation of Right knee pain. She reports right knee surgery for medial meniscal tear and subchondroplasty done in [place] in 2021. She states that the knee has been painful ever since and has not gotten any better. Currently takes aleve for pain control which does seem to help, but she has had gastric surgery with likely Walter fundoplication so she need to watch her NSAID use. Reports a sharp, aching sensation that occasionally radiates to the lamebrt. Unable to quantify the pain today. MEDICATIONS [...] hernia 09/14/2017: Left hip pain Comment: Seeing [place] tutu Martinez 02/15/2019: Left lateral abdominal pain [...] Second hand smoke exposure (more content not included)...[facility]08-23-2024 History of Present illness Narrative* Garth Gonzalez PA-C - 03/03/2024 10:41 AM EDTAssociated Order(s): Large Joint Arthro/Inj: R knee joint Post-Procedure Diagnose(s): Primary osteoarthritis of right knee HISTORY OF PRESENT ILLNESS: Nora is a 73 year old female. She is here for evaluation of Right knee pain. She reports right knee surgery for medial meniscal tear and subchondroplasty done in [place] in 2021. She states that theknee has [...] Chronic pain of right knee Comment: Sees matit Cam 08/25/2019: Current use of proton pump [...] hernia 09/14/2017: Left hip pain Comment: Seeing [place] [facility] Dr. Xander Martinez 02/15/2019: Left lateral [...] hand smoke exposure 01/05/2006: Senile osteoporosis Comment: Licensed Occupational Therapist following (Dr. Dobson) 11/2009: Simple cyst of [...] HISTORY OF Comment: laproscopic Walter Fundoplication.([facility]) 12/2021: PAST SURGICAL HISTORY OF; Right Comment: Tx of meniscus tear and Fx No date: PAST SURGICAL HISTORY OF; Left Comment: removal of foreign body in left foot. 04/2015: RECONSTRUCT VAGINAL WALL WITH MESH 02/28/2009: REMOVE CATARACT, INSERT LENS,EX Comment: Both Eyes No date: REMV CATARACT EXTRACAP,INSERT LENS; Bilateral 09/03/2015: RETROARC BLADDER SLING [id number] Comment: retroarc tension free vaginal sling 1955: [...] Rebekah Eduardo as she is from the [facility] and they performed surgery on her left knee. I spent a total of 30 minutes on the date of the service which included preparing to see the patient, [id number] patient care, completing clinical documentation, obtaining and/or reviewing separately obtained history, performing a medically appropriate examination, counseling and educating the pat ient/family/caregiver, ordering medications, tests, or procedures, communicating with other HCPs (not separately reported), independently interpreting results (not separately reported), communicatingresults to the patient/family/caregiver, and care coordination (not separately reported). PROCEDURE: Large Joint Arthro/Inj: R knee joint Informed Consent Consent Obtained: Verbal Howard Protocol A moment to CARE was completed. [...] for. Garth Gonzalez PA-C documented in this encounterMercy Health [facility]08-23-2024 History of Present illness Narrative* Tanya [...] PATIENT PRESENTS WITH AN IMPLANTABLE OR ATTACHED MANAGER STUDENT SERVICES: No RADIOLOGY DEPARTMENT: General X-ray: Exam(s) Completed: Lower Extremity X- Ray(s): Knee, AP / Lat / Tunne / Merchant Right and Wt. Bearing and Leg Length PERIPHERAL IV DATA: Not applicable SIGNED BY: Anastasiia Vega March 03, 2024 9:30 AM documented in this encounterMercy Health [facility]08-23-2024 NoteHNO ID: [id number] Author: TANYA DELGADO Tech Service: ? Author Type: Professor Of Visual Arts Type: Progress Notes Filed: 03/03/2024 09:31 Note [...] PATIENT PRESENTS WITH AN IMPLANTABLE OR ATTACHED MANAGER STUDENT SERVICES: No RADIOLOGY DEPARTMENT: General X-ray: Exam(s) Completed: Lower Extremity X-Ray(s): Knee, AP / Lat / Tunne / Merchant Right and Wt. Bearing and Leg Length PERIPHERAL IV DATA: Not applicable SIGNED BY: Anastasiia Vega March 03, 2024 9:30 AMPromedica Fostoria Community [id number] Telephone encounter Note* Telephone Encounter - Treasure Sanchez MA - 02/21/2024 11:25 AM EDT Patient notified and voiced understanding. Treasure Sanchez MA Patient was scheduled. Treasure Sanchez MA [facility]08-12-2024 Miscellaneous Notes* Telephone Encounter - Treasure Sanchez MA - 02/21/2024 11:25 AM EDT Patient notified and voiced understanding. Treasure Sanchez MA Patient was scheduled. Treasure Sanchez MA * Telephone Encounter - Jaylin Combs PA-C - 02/21/2024 10:56 AM EDT Patient cancelled her wellness exam. Please help to reschedule documented in this encounterMercy Health [facility]08-12-2024 Telephone encounter Note * Telephone Encounter - Jaylin Combs PA-C - 02/21/2024 10:56 AM EDT Patient cancelled her wellness exam. Please help to reschedule [facility]08-06-2024 NoteHNO ID: [id number] Author: MILENA DUCKWORTH RPFT Service: ? Author [...] [place] DATE: February 15, 2024 TIME: 11:40 [facility]08-06-2024 Procedure note* Milena Duckworth RPFT - [...] DATE: February 15, 2024 TIME: 11:40 AM [facility]08-06-2024 Procedure note* Milena Duckworth RPFT - [...] 2024 TIME: 11:40 AM documented in this encounterMercy Health – [facility]08-06-2024 History of Present illness Narrative* Lorenza Reza MD - 02/15/2024 11:00 AM EDT Images from the original note were not included. . 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 She has a dog in her [...] hand smoke exposure 01/05/2006: Senile osteoporosis Comment: Licensed Occupational Therapist following (Dr. Dobson) 11/2009: Simple cyst of [...] HISTORY OF Comment: laproscopic Walter Fundoplication.([facility]) 12/2021: PAST SURGICAL HISTORY OF; Right Comment: Tx of meniscus tear and Fx No date: PAST SURGICAL HISTORY OF; Left Comment: removal of foreign body in left foot. 04/2015: RECONSTRUCT VAGINAL WALL WITH MESH 02/28/2009: REMOVE CATARACT, INSERT LENS,EX Comment: Both Eyes No date: REMV CATARACT EXTRACAP,INSERT LENS; Bilateral 09/03/2015: RETROARC BLADDER SLING [id number] Comment: retroarc tension free vaginal sling 1955: [...] controlled. Prescription refilled Lorenza Reza MD Res[facility] [place] documented in this encounterMercy Health [facility]08-06-2024 NoteHNO ID: [id number] Author: LORENZA REZA MD Service: ? Author Type: Physician Type: Progress Notes Filed: 02/15/2024 14:27 Note Text: . 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 She has a dog in her [...] hernia 09/14/2017: Left hip pain Comment: Seeing [place] [facility] Dr. Xander Martinez 02/15/2019: Left lateral [...] hand smoke exposure 01/05/2006: Senile osteoporosis Comment: Licensed Occupational Therapist following (Dr. Dobson) 11/2009: Simple cyst of breast Comment: Left retroareolar No date: Unspecified constipation ALLERGIES Allergen Reactions Morphine GI Upset nausea Nsaids (Non-Steroid* Other: See Comments Hx of stomach ulcers Advair Diskus [Flut* Intolerance Hurts throat Bentyl [Dicyclomine* Unknown Celebrex [Celecoxib] GI Upset Dicyclomine Other: See Comm (more content not included)...[facility]08-06-2024 NoteHNO ID: [id number] Author: MILENA DUCKWORTH RPFT Service: ? Author Type: Respiratory Therapist Type: Progress Notes Filed: 02/15/2024 11:40 Note Text: PULM FUNCTION: Provider: Lorenza Reza MD Assisting Tech: Milena Duckworth RPFT Spirometry w/BD: 1 Exhaled Nitric Oxide: [facility] History of Present illness Narrative* Milena Duckworth RPFT - 02/15/2024 10:51 AM EDT PULM FUNCTION: Provider: Lorenza Reza MD Assisting Tech: Milena Duckworth RPFT Spirometry w/BD: 1 Exhaled Nitric Oxide: 1 documented in this encounterMercy Health [facility]07-19-2024 Instructions* Patient Instructions* Shelley Talavera APRN.CNP - 01/28/2024 12:18 PM EDT Keep area clean and dry. Remove band-aid tomorrow and cleanse and apply neosporin or vaseline. Notify provider of any s/s of infection. documented in this encounterMercy Health [facility]07-19-2024 History of Present illness Narrative* Shelley [...] hernia 07/22/2016 Left hip pain 09/14/[address] [place] [address] Xander Martinez Left lateral abdominal [...] hand smoke exposure 11/08/2023 Senile osteoporosis 01/05/2006 Licensed Occupational Therapist following (Dr. Dobson) Simple cyst of breast [...] HISTORY OF 02/11/2017 laproscopic Walter Fundoplication.([facility]) PAST SURGICAL HISTORY OF Right 12/2021 Tx of meniscus tear and Fx PAST SURGICAL HISTORY OF Left removal of foreign body in left foot. RECONSTRUCT VAGINAL WALL WITH MESH 04/2015 REMOVE CATARACT, INSERT LENS,EX 02/28/2009 Both Eyes REMV CATARACT EXTRACAP,INSERT LENS Bilateral RETROARC BLADDER SLING [id number] 09/03/2015 retroarc tension free vaginal sling TONSILLECTOMY [...] as needed for worsening/no improvement. Shelley Talavera APRN.MEDICAL ENGINEER documented in this encounterMercy Health [facility]07-01-2024 Telephone encounter Note * Telephone Encounter [...] Patterson LPN January 10, 2024 9:56 AM [facility]07-01-2024 Miscellaneous Notes* Telephone Encounter - Qasim [...] 10, 2024 9:37 AM documented in this encounterMercy Health – The [facility]07-01-2024 Telephone encounter Note * Telephone Encounter [...] by mouth daily at bedtime. Angelia Garza [facility] January 10, 2024 9:37 AM [facility]04-30-2024 History of Present illness Narrative* Jaylin [...] hernia 07/22/2016 Left hip pain 09/14/[address] [place] [address] Xander Martinez Left lateral abdominal [...] hand smoke exposure 11/08/2023 Senile osteoporosis 01/05/2006 Licensed Occupational Therapist following (Dr. Dobson) Simple cyst of breast [...] HISTORY OF 02/11/2017 laproscopic Walter Fundoplication.([facility]) PAST SURGICAL HISTORY OF Right 12/2021 Tx of meniscus tear and Fx PAST SURGICAL HISTORY OF Left removal of foreign body in left foot. RECONSTRUCT VAGINAL WALL WITH MESH 04/2015 REMOVE CATARACT, INSERT LENS,EX 02/28/2009 Both Eyes REMV CATARACT EXTRACAP,INSERT LENS Bilateral RETROARC BLADDER SLING [id number] 09/03/2015 retroarc tension free vaginal sling TONSILLECTOMY [...] MEDICINE Jaylin Combs PA-C documented in this encounterMercy Health [facility]04-30-2024 Telephone encounter Note * Telephone Encounter - Treasure Sanchez MA - 11/09/2023 9:15 AM EDT Patient contacted and scheduled. Treasure Sanchez MA [facility]04-30-2024 Miscellaneous Notes* Telephone Encounter - Treasure [...] Teresa Yepez - 11/08/2023 4:52 PM EDT Noar is calling Scot Blank MD today with [...] statement: Symptom Call: Thank you for calling [facility], your call is very important. A nurse will call in approximately 2-4 hours during business hours. If this is an emergency, please contact 911. Teresa Fitzgerald documented in this encounterMercy Health – The [facility]04-29-2024 Telephone encounter Note * Telephone Encounter [...] get her re-established with pulmonary. Consult placed. [facility]04-29-[facility] Telephone encounter Note* Telephone Encounter - [...] statement: Symptom Call: Thank you for calling [facility], your call is very important. A nurse will call in approximately 2-4 hours during business hours. If this is an emergency, please contact 911. Teresa Fitzgerald [facility]2024 Miscellaneous Notes* Telephone Encounter - Latricia [...] message Latricia Stark Lpn documented in this encounterMercy Health – The [facility] Hospital03-25-2024 History of Present illness Narrative* Jaylin [...] Chronic bilateral low back pain 01/01/2016 Seen [place] [facility] Chronic pain of both ankles 09/27/2020 [...] hernia 07/22/2016 Left hip pain 09/14/[address] [place] [address] Xander Martinez Left lateral abdominal [...] NSAID's (aspirin held 10/2020) Senile osteoporosis 01/05/2006 Licensed Occupational Therapist following (Dr. Dobson) Simple cyst of breast [...] HISTORY OF 02/11/2017 laproscopic Walter Fundoplication.([facility]) PAST SURGICAL HISTORY OF Right 12/2021 Tx of meniscus tear and Fx PAST SURGICAL HISTORY OF Left removal of foreign body in left foot. RECONSTRUCT VAGINAL WALL WITH MESH 04/2015 REMOVE CATARACT, INSERT LENS,EX 02/28/2009 Both Eyes REMV CATARACT EXTRACAP,INSERT LENS Bilateral RETROARC BLADDER SLING [id number] 09/03/2015 retroarc tension free vaginal sling TONSILLECTOMY [...] RELEASE,MULTIPHASE Jaylin Combs PA-C documented in this encounterMercy Health – [facility]03-22-2024 History of Present illness Narrative* Talya May APRN.CNP - 10/01/2023 3:26 PM EDT Roll Trucker offered: Patient declines. Melendez is a 73 year old who presents for an annual gynecologic exam with complaints, strong urine odor . Postmenopausal: Yes HRT use: Yes, vaginal estrace Last Pap: 11/24/2005 normal HPV: N/A History of abnormal pap: No Last mammogram: 2023 normal History of abnormal mammogram: No Sexually active: No OB History T3 L3 SAB0 IAB0 Ectopic0 Multiple0 Live Births0 Licensed Occupational Therapist History LMP: Hysterectomy Age at Menarche: Age at First : Age at Menopause: Licensed Occupational Therapist History Comments: Sexual Activity: Yes; Male; Pt [...] hernia 07/22/2016 Left hip pain 09/14/[address] [place] [address] Xander Martinez Left lateral abdominal [...] NSAID's (aspirin held 10/2020) Senile osteoporosis 01/05/2006 Licensed Occupational Therapist following (Dr. Dobson) Simple cyst of breast [...] HISTORY OF 02/11/2017 laproscopic Walter Fundoplication.([facility]) PAST SURGICAL HISTORY OF Right 12/2021 Tx of meniscus tear and Fx PAST SURGICAL HISTORY OF Left removal of foreign body in left foot. RECONSTRUCT VAGINAL WALL WITH MESH 04/2015 REMOVE CATARACT, INSERT LENS,EX 02/28/2009 Both Eyes REMV CATARACT EXTRACAP,INSERT LENS Bilateral RETROARC BLADDER SLING [id number] 09/03/2015 retroarc tension free vaginal sling TONSILLECTOMY [...] external genitalia normal, normal Bartholin's glands, urethra, Glasco's glands, no vulvar lesions, physiologic discharge present, [...] as needed Vaginal estrogen cream sent to [facility] pharmacy. Talya May APRN.MEDICAL ENGINEER documented in this encounterMercy Health [facility]02-27-2024 Miscellaneous Notes* Telephone Encounter - Ann [...] Continue as we discussed. documented in this encounterMercy Health – The [facility]02-26-2024 History of Present illness Narrative* Katina [...] PATIENT PRESENTS WITH AN IMPLANTABLE OR ATTACHED MANAGER STUDENT SERVICES: No RADIOLOGY DEPARTMENT: General X-ray: Exam(s) Completed: Chest X-Ray PERIPHERAL IV DATA: Not applicable SIGNED BY: RT Lani(R) September 06, 2023 11:57 AM documented in this encounterMercy Health – The [facility] Hospital02-26-2024 History of Present illness Narrative* Jaylni Combs PA-C - 09/06/2023 11:39 AM EST [...] Chronic bilateral low back pain 01/01/2016 Seen [place] [facility] Chronic pain of both ankles 09/27/2020 [...] hernia 07/22/2016 Left hip pain 09/14/[address] [place] [address] Xander Martinez Left lateral abdominal [...] NSAID's (aspirin held 10/2020) Senile osteoporosis 01/05/2006 Licensed Occupational Therapist following (Dr. Dobson) Simple cyst of breast [...] HISTORY OF 02/11/2017 laproscopic Walter Fundoplication.([facility]) PAST SURGICAL HISTORY OF Right 12/2021 Tx of meniscus tear and Fx RECONSTRUCT VAGINAL WALL WITH MESH 04/2015 REMOVE CATARACT, INSERT LENS,EX 02/28/2009 Both Eyes REMV CATARACT EXTRACAP,INSERT LENS Bilateral RETROARC BLADDER SLING [id number] 09/03/2015 retroarc tension free vaginal sling TONSILLECTOMY [...] above Jaylin Combs PA-C documented in this encounterMercy Health – The [facility]02-23-2024 Instructions* Patient Instructions* Jaylin Combs PA-C - 09/03/2023 11:38 AM EST Take Vit D 2000 international unit(s) daily. Repeat labs in about 2-3 months. Otherwise follow up in 6 months. documented in this encounterMercy Health – The [facility]02-23-2024 History of Present illness Narrative* Jaylin [...] hernia 07/22/2016 Left hip pain 09/14/[address] [place] [address] Xander Martinez Left lateral abdominal [...] NSAID's (aspirin held 10/2020) Senile osteoporosis 01/05/2006 Licensed Occupational Therapist following (Dr. Dobson) Simple cyst of breast [...] HISTORY OF 02/11/2017 laproscopic Walter Fundoplication.([facility]) PAST SURGICAL HISTORY OF Right 12/2021 Tx of meniscus tear and Fx RECONSTRUCT VAGINAL WALL WITH MESH 04/2015 REMOVE CATARACT, INSERT LENS,EX 02/28/2009 Both Eyes REMV CATARACT EXTRACAP,INSERT LENS Bilateral RETROARC BLADDER SLING [id number] 09/03/2015 retroarc tension free vaginal sling TONSILLECTOMY [...] treatment. Jaylin Combs PA-C documented in this encounterMercy Health [facility]12-11-2023 History of Present illness Narrative* Sharee Hernandez - 06/21/2023 9:42 AM EST Pending mammo documented in this encounterMercy Health – The [facility]09-26-2023 History of Present illness Narrative* Jaylin [...] hernia 07/22/2016 Left hip pain 09/14/[address] [place] [address] Xander Martinez Left lateral abdominal [...] NSAID's (aspirin held 10/2020) Senile osteoporosis 01/05/2006 Licensed Occupational Therapist following (Dr. Dobson) Simple cyst of breast [...] HISTORY OF 02/11/2017 laproscopic Walter Fundoplication.([facility]) PAST SURGICAL HISTORY OF Right 12/2021 Tx of meniscus tear and Fx RECONSTRUCT VAGINAL WALL WITH MESH 04/2015 REMOVE CATARACT, INSERT LENS,EX 02/28/2009 Both Eyes REMV CATARACT EXTRACAP,INSERT LENS Bilateral RETROARC BLADDER SLING [id number] 09/03/2015 retroarc tension free vaginal sling TONSILLECTOMY [...] above. Jaylin Combs PA-C documented in this encounterMercy Health [facility]09-11-2023 Miscellaneous Notes* Telephone Encounter - Jaylin [...] Telephone Encounter - Jaylin Combs PA-C - 03/20/2023 10:38 PM EDT Let patient knows that her bone density shows worsening osteoporosis. See if she is interested in starting treatment with fosamax. Or would she like to schedule visit so we can discuss in more detail. Thanks Jaylin Combs PA-C documented in this encounterMercy Health – The [facility]09-06-2023 History of Present illness Narrative* Matheus [...] 17, 2023 10:39 AM documented in this encounterMercy Health – The [facility]08-24-2023 Miscellaneous Notes* Telephone Encounter - Lorenza Howe Ma - 03/04/2023 2:16 PM EDT PA approved July 12, 2022 to July 11, 2023 Patient was notified Lorenza Howe Ma * Telephone Encounter - Lorenza Howe Ma - 03/04/2023 1:58 PM EDT Received PA request from [facility] but completed electronically Lorenza Howe Ma documented in this encounterMercy Health – The [facility]08-23-2023 Instructions* Patient Instructions* Jaylin Combs PA-C [...] your usual activities immediately. documented in this encounterMercy Health – The [facility]08-23-2023 History of Present illness Narrative* Jaylin [...] Chronic bilateral low back pain 01/01/2016 Seen [place] [facility] Chronic pain of both ankles 09/27/2020 [...] NSAID's (aspirin held 10/2020) Senile osteoporosis 01/05/2006 Licensed Occupational Therapist following (Dr. Dobson) Simple cyst of breast [...] HISTORY OF 02/11/2017 laproscopic Walter Fundoplication.([facility]) PAST SURGICAL HISTORY OF Right 12/2021 Tx of meniscus tear and Fx RECONSTRUCT VAGINAL WALL WITH MESH 04/2015 REMOVE CATARACT, INSERT LENS,EX 02/28/2009 Both Eyes REMV CATARACT EXTRACAP,INSERT LENS Bilateral RETROARC BLADDER SLING [id number] 09/03/2015 retroarc tension free vaginal sling TONSILLECTOMY [...] Chronic bilateral low back pain 01/01/2016 Seen [place] [facility] Chronic pain of both ankles 09/27/2020 [...] hernia 07/22/2016 Left hip pain 09/14/[address] [place] [address] Xander Martinez Left lateral abdominal [...] NSAID's (aspirin held 10/2020) Senile osteoporosis 01/05/2006 Licensed Occupational Therapist following (Dr. Dobson) Simple cyst of breast [...] HISTORY OF 02/11/2017 laproscopic Walter Fundoplication.(Dr. 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 Treasure Sanchez [...] provider's office to advise. documented in this encounterMercy Health [facility]04-10-2023 Miscellaneous Notes* Telephone Encounter - Qasim Patterson LPN - 10/19/2022 1:53 PM EDT Patient notified of results and provider's instructions. Patient verbalizes understanding. Qasim Patterson LPN * Telephone Encounter - Qasim Patterson LPN - 10/19/2022 1:52 PM EDT ----- Message from Jaylin Combs PA-C sent at 10/19/2022 1:19 PM EDT ----- Xray is negative. Continue as we discussed. documented in this encounterMercy Health [facility]04-10-2023 History of Present illness Narrative* Gloria [...] 19, 2022 12:13 PM documented in this encounterMercy Health – [facility]04-10-2023 History of Present illness Narrative* Jaylin [...] NSAID's (aspirin held 10/2020) Senile osteoporosis 01/05/2006 Licensed Occupational Therapist following (Dr. Dobson) Simple cyst of breast [...] HISTORY OF 02/11/2017 laproscopic Walter Fundoplication.([facility]) PAST SURGICAL HISTORY OF Right 12/2021 Tx of meniscus tear and Fx RECONSTRUCT VAGINAL WALL WITH MESH 04/2015 REMOVE CATARACT, INSERT LENS,EX 02/28/2009 Both Eyes REMV CATARACT EXTRACAP,INSERT LENS Bilateral RETROARC BLADDER SLING [id number] 09/03/2015 retroarc tension free vaginal sling TONSILLECTOMY [...] above. Jaylin Combs PA-C documented in this encounterMercy Health – [facility]03-30-2023 Miscellaneous Notes* Telephone Encounter - TIAGO [...] Thank you. Lia Marsh documented in this encounterMercy Health – [facility]03-24-2023 Miscellaneous Notes* Telephone Encounter - TIAGO [...] notify patient. Melyssa Fitzgerald documented in this encounterMercy Health [facility]03-10-2023 History of Present illness Narrative* Gloria [...] 18, 2022 10:17 AM documented in this encounterMercy Health – The [facility] Hospital03-10-2023 History of Present illness Narrative* Maciej [...] 5.3 4.3 - 5.6 % Final Comment: [place] [employer] guidelines indicate that patients with HgbA1c in the range 5.7-6.4% are at increased risk for development of diabetes, and intervention by lifestyle modification may be beneficial. HgbA1c greater or equal to 6.5% is considered diagnostic of diabetes. PCP: Scot Blank MD PAST MEDICAL HISTORY [...] NSAID's (aspirin held 10/2020) Senile osteoporosis 01/05/2006 Licensed Occupational Therapist following (Dr. Dobson) Simple cyst of breast [...] HISTORY OF 02/11/2017 laproscopic Walter Fundoplication.([facility]) PAST SURGICAL HISTORY OF Right 12/2021 Tx of meniscus tear and Fx RECONSTRUCT VAGINAL WALL WITH MESH 04/2015 REMOVE CATARACT, INSERT LENS,EX 02/28/2009 Both Eyes REMV CATARACT EXTRACAP,INSERT LENS Bilateral RETROARC BLADDER SLING [id number] 09/03/2015 retroarc tension free vaginal sling TONSILLECTOMY [...] Numbness No Hutchinson LPN documented in this encounterMercy Health – The [facility]02-08-2023 History of Present illness Narrative* Jaylin [...] hernia 07/22/2016 Left hip pain 09/14/[address] [place] [address] Xander Martinez Left lateral abdominal [...] NSAID's (aspirin held 10/2020) Senile osteoporosis 01/05/2006 Licensed Occupational Therapist following (Dr. Dobson) Simple cyst of breast [...] SURGICAL HISTORY OF 02/11/2017 laproscopic Walter Fundoplication.([facility]) PAST SURGICAL HISTORY OF Right 12/2021 Tx of meniscus tear and Fx RECONSTRUCT VAGINAL WALL WITH MESH 04/2015 REMOVE CATARACT, INSERT LENS,EX 02/28/2009 Both Eyes REMV CATARACT EXTRACAP,INSERT LENS Bilateral RETROARC BLADDER SLING [id number] 09/03/2015 retroarc tension free vaginal sling TONSILLECTOMY [...] persist. Jaylin Combs PA-C documented in this encounterMercy Health – [facility]01-04-2023 Miscellaneous Notes* Letter - Mammography Coordinator - 07/15/2022 9:33 AM EST July 15, 2022 PID: [id number] Nora Camarillo [id number] [phone] Dear Ms. Camarillo, We are pleased to [...] report will be kept on [facility] at [facility] as part of your permanent medical record and are available for your continuing care. Thank you for allowing us to help in meeting your health care needs. Sincerely, Dr. De La Fuente Interpreting Radiologist [facility] (Normal over 40) documented in this encounterMercy Health – The Jewish Hospital01-03-2023 History of Present illness Narrative* Allison [...] 14, 2022 9:23 AM documented in this encounterMercy Health – The [facility] Hospital10-20-2022 Miscellaneous Notes* Telephone Encounter - Treasure [...] 12.5 mg for 90 days sent to [facility]. Regarding the needle she will need t [...] Patient is ok with 90 going to [facility] for this prescription only with [facility]. [...] that we know from pharmacy she did sisal picker the Ambien CR 12.5 mg last month [...] days of the [facility]ien [facility] is $42.78 ( equal to $14.26/month) at [facility] 90 days is $34.58 (equal to $11.52/month) * Telephone Encounter - Treasure Sanchez MA - 04/27/2022 1:07 PM EDT Spoke with pharmacist and patient did sisal picker the prescription of ambien 12.5 mg tablet on 03/27/2022 Insurance would not cover and required a PA but it also is a non-formulary. (Which pharmacist said would not have been covered no matter what). Pharmacy ran it through [facility] at $19.77 per month. Asked pharmacist if they would be notified what mg would be covered and she indicated that they never receive that information. Treasure Sanchez MA * Telephone Encounter - Scot Blank MD - 04/27/2022 12:44 PM EDT [facility] [place] to see if a script was picked [...] Last ov w/pcp 02-12-22. documented in this encounterMercy Health – The Jewish Hospital09-29-2022 Instructions* Patient Instructions* Maciej Kevin - 04/09/2022 11:41 AM EDT Powerstep Original Full length. Can purchase at [employer] here in [place], [employer] in [place] or [place]. Also can find in [place] in [facility]. Powersteps can also be purchased online, starting [...] fibroma of left foot documented in this encounterMercy Health – The Jewish Hospital09-29-2022 History of Present illness Narrative* Maciej [...] hernia 07/22/2016 Left hip pain 09/14/[address] [place] [address] Xander Martinez Left lateral abdominal [...] NSAID's (aspirin held 10/2020) Senile osteoporosis 01/05/2006 Licensed Occupational Therapist following (Dr. Dobson) Simple cyst of breast [...] HISTORY OF 02/11/2017 laproscopic Walter Fundoplication.([facility]) PAST SURGICAL HISTORY OF Right 12/2021 Tx of meniscus tear and Fx RECONSTRUCT VAGINAL WALL WITH MESH 04/2015 REMOVE CATARACT, INSERT LENS,EX 02/28/2009 Both Eyes REMV CATARACT EXTRACAP,INSERT LENS Bilateral RETROARC BLADDER SLING [id number] 09/03/2015 retroarc tension free vaginal sling TONSILLECTOMY [...] options. Maciej Brown DPM Podiatry [address] [facility] [address] Dept: [phone] Dept documented in this encounterMercy Health [facility]09-29-2022 History of Present illness Narrative* RT [...] 09, 2022 10:59 AM documented in this encounterMercy Health – The Jewish Hospital09-20-2022 Miscellaneous Notes* Telephone Encounter - Charley Hraman [facility] - 03/31/2022 8:55 AM EDT Patient notified [...] medication. Treasure Sanchez MA documented in this encounterMercy Health – The Jewish Hospital09-07-2022 Miscellaneous Notes* Telephone Encounter - Treasure [...] 03/18/2022 1:25 PM EDT Please check with [facility] pharmacy at [phone] to see if patient picked up script sent on 03/03/2022. If not have them cancel it. Then I can send a new script. * Telephone Encounter - Melyssa Fitzgerald - 03/18/2022 11:17 AM EDT Patient said that rx for Ambien that was sent on 03/03/22 was sent to the wrong pharmacy. Wants to know if it can be switched to [facility]. documented in this encounterMercy Health – The Jewish Hospital08-23-2022 Miscellaneous Notes* Telephone Encounter - Susanne [...] ween off Seroquel? [facility] * Telephone Encounter - Scot [...] been taking a laxative. documented in this encounterMercy Health – The Jewish Hospital08-10-2022 Miscellaneous Notes* Telephone Encounter - Cherri [...] no increase in narrowing. documented in this encounterMercy Health – The Jewish Hospital08-04-2022 Instructions* Patient Instructions* Scot Blank MD - 02/12/2022 11:36 AM EDT Please get labs done on or after 07/31/2022 prior to your next visit. documented in this encounterMercy Health – The Jewish Hospital08-04-2022 History of Present illness Narrative* Scot [...] HISTORY OF 02/11/2017 laproscopic Walter Fundoplication.(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 [...] Narrative 3 daughters grown Nora works out [employer]. She watches her diet for sodium, low [...] hernia 07/22/2016 Left hip pain 09/14/[address] [place] [address] Xander Martinez Left lateral abdominal [...] NSAID's (aspirin held 10/2020) Senile osteoporosis 01/05/2006 Licensed Occupational Therapist following (Dr. Dobson) Simple cyst of breast [...] HISTORY OF 02/11/2017 laproscopic Walter Fundoplication.([facility]) RECONSTRUCT VAGINAL WALL WITH MESH 04/2015 REMOVE CATARACT, INSERT LENS,EX 02/28/2009 Both Eyes REMV CATARACT EXTRACAP,INSERT LENS Bilateral RETROARC BLADDER SLING [id number] 09/03/2015 retroarc tension free vaginal sling TONSILLECTOMY [...] THERAPY and patient said she will contact [place] [facility]. 17. Living will on file - [...] which included preparing to see the patient, [id number] patient care, completing clinical documentation, performing a medically appropriate examination, counseling and educating the patient/family/caregiver and ordering medications, tests, or procedures. Scot Blank MD documented in this encounterMercy Health [facility]04-04-2022 History of Present illness Narrative* Jaylin [...] hernia 07/22/2016 Left hip pain 09/14/[address] [place] [address] Xander Martinez Left lateral abdominal [...] NSAID's (aspirin held 10/2020) Senile osteoporosis 01/05/2006 Licensed Occupational Therapist following (Dr. Dobson) Simple cyst of breast [...] Patient to keep appointment as scheduled. Jaylin Comsb PA-C documented in this encounterMercy Health – The [facility] Hospital12-28-2021 History of Present illness Narrative* Gloria [...] 08, 2021 12:38 PM documented in this encounterMercy Health – The [facility] Hospital10-01-2021 History of Present illness Narrative* Gloria [...] 11, 2021 1:08 PM documented in this encounterMercy Health – The Jewish Hospital08-07-2019 History of Past illness Narrative* Problem [...] without abnormal finding 12/06/2015 06/15/2019 Overview: Seeing [facility] Encounter for screening for cardiovascular disor ders 12/06/2015 06/15/2019 Colon cancer screening 12/06/2015 9 Non morbid obesity 08/20/2015 07/22/2017 Routine general medical exam ination at a health care facility 11/20/2009 12/22/2011 Overview: 11/20/2009, from Dr. Dubois Routine gynecological examination 11/20/2009 12/22/2011 Overview: [facility], [facility] Diarrhea 11/20/2009 12/22/2011 Overview: Recurrent, since 2004 -- multiple GI evaluations, no clear cause; HIDA, CT, U/S, EGD x 2 (as of entry date 2009) Diaphragmatic hernia without mention of obstruction or gangrene 01/24/2007 07/22/2017 Unspecified constipation 012 documented as of this encounter (statuses as of 10/13/2021) [facility]08-07-[facility] History of Past illness Narrative* Problem [...] without abnormal finding 12/06/2015 06/15/2019 Overview: Seeing [facility] Encounter for screening for cardiovascular disor ders 12/06/2015 06/15/2019 Colon cancer screening 12/06/2015 9 Non morbid obesity 08/20/2015 07/22/2017 Routine general medical exam ination at a health care facility 11/20/2009 12/22/2011 Overview: 11/20/2009, from Dr. Dubois Routine gynecological examination 11/20/2009 12/22/2011 Overview: [facility], [facility] Diarrhea 11/20/2009 12/22/2011 Overview: Recurrent, since 2004 -- multiple GI evaluations, no clear cause; HIDA, CT, U/S, EGD x 2 (as of entry date 2009) Diaphragmatic hernia without mention of obstruction or gangrene 01/24/2007 07/22/2017 Unspecified constipation 012 documented as of this encounter (statuses as of 02/13/2022) [facility] History of Past illness Narrative* Problem [...] without abnormal finding 12/06/2015 06/15/2019 Overview: Seeing [facility] Encounter for screening for cardiovascular disor ders 12/06/2015 06/15/2019 Colon cancer screening 12/06/2015 9 Non morbid obesity 08/20/2015 07/22/2017 Routine general medical exam ination at a health care facility 11/20/2009 12/22/2011 Overview: 11/20/2009, from Dr. Dubois Routine gynecological examination 11/20/2009 12/22/2011 Overview: [facility], [facility] [place] Diarrhea 11/20/2009 12/22/2011 Overview: Recurrent, since 2004 -- multiple GI evaluations, no clear cause; HIDA, CT, U/S, EGD x 2 (as of entry date 2009) Diaphragmatic hernia without mention of obstruction or gangrene 01/24/2007 07/22/2017 Unspecified constipation 012 documented as of this encounter (statuses as of 02/18/2022) [facility] History of Past illness Narrative* Problem [...] without abnormal finding 12/06/2015 06/15/2019 Overview: Seeing [facility] Encounter for screening for cardiovascular disor ders 12/06/2015 06/15/2019 Colon cancer screening 12/06/2015 9 Non morbid obesity 08/20/2015 07/22/2017 Routine general medical exam ination at a health care facility 11/20/2009 12/22/2011 Overview: 11/20/2009, from Dr. Dubois Routine gynecological examination 11/20/2009 12/22/2011 Overview: [facility], [facility] [place] Diarrhea 11/20/2009 12/22/2011 Overview: Recurrent, since 2004 -- multiple GI evaluations, no clear cause; HIDA, CT, U/S, EGD x 2 (as of entry date 2009) Diaphragmatic hernia without mention of obstruction or gangrene 01/24/2007 07/22/2017 Unspecified constipation 012 documented as of this encounter (statuses as of 03/03/2022) [facility] of Past illness Narrative* Problem [...] without abnormal finding 12/06/2015 06/15/2019 Overview: Seeing [facility] Encounter for screening for cardiovascular disor ders 12/06/2015 06/15/2019 Colon cancer screening 12/06/2015 9 Non morbid obesity 08/20/2015 07/22/2017 Routine general medical exam ination at a health care facility 11/20/2009 12/22/2011 Overview: 11/20/2009, from Dr. Dubois Routine gynecological examination 11/20/2009 12/22/2011 Overview: [facility], [facility] [place] Diarrhea 11/20/2009 12/22/2011 Overview: Recurrent, since 2004 -- multiple GI evaluations, no clear cause; HIDA, CT, U/S, EGD x 2 (as of entry date 2009) Diaphragmatic hernia without mention of obstruction or gangrene 01/24/2007 07/22/2017 Unspecified constipation 012 documented as of this encounter (statuses as of 03/18/2022) [facility] of Past illness Narrative* Problem [...] without abnormal finding 12/06/2015 06/15/2019 Overview: Seeing [facility] Encounter for screening for cardiovascular disor ders 12/06/2015 06/15/2019 Colon cancer screening 12/06/2015 9 Non morbid obesity 08/20/2015 07/22/2017 Routine general medical exam ination at a health care facility 11/20/2009 12/22/2011 Overview: 11/20/2009, from Dr. Dubois Routine gynecological examination 11/20/2009 12/22/2011 Overview: [facility], [facility] Diarrhea 11/20/2009 12/22/2011 Overview: Recurrent, since 2004 -- multiple GI evaluations, no clear cause; HIDA, CT, U/S, EGD x 2 (as of entry date 2009) Diaphragmatic hernia without mention of obstruction or gangrene 01/24/2007 07/22/2017 Unspecified constipation 012 documented as of this encounter (statuses as of 03/31/2022) [facility] of Past illness Narrative* Problem [...] without abnormal finding 12/06/2015 06/15/2019 Overview: Seeing [facility] Encounter for screening for cardiovascular disor ders 12/06/2015 06/15/2019 Colon cancer screening 12/06/2015 9 Non morbid obesity 08/20/2015 07/22/2017 Routine general medical exam ination at a health care facility 11/20/2009 12/22/2011 Overview: 11/20/2009, from Dr. Dubois Routine gynecological examination 11/20/2009 12/22/2011 Overview: [facility] 11/20/2009 12/22/2011 Overview: Recurrent, since 2004 -- multiple GI evaluations, no clear cause; HIDA, CT, U/S, EGD x 2 (as of entry date 2009) Diaphragmatic hernia without mention of obstruction or gangrene 01/24/2007 07/22/2017 Unspecified constipation 012 documented as of this encounter (statuses as of 04/09/2022) [facility] of Past illness Narrative* Problem [...] without abnormal finding 12/06/2015 06/15/2019 Overview: Seeing [facility] Encounter for screening for cardiovascular disor ders 12/06/2015 06/15/2019 Colon cancer screening 12/06/2015 9 Non morbid obesity 08/20/2015 07/22/2017 Routine general medical exam ination at a health care facility 11/20/2009 12/22/2011 Overview: 11/20/2009, from Dr. Dubois Routine gynecological examination 11/20/2009 12/22/2011 Overview: [facility], [facility] [place] Diarrhea 11/20/2009 12/22/2011 Overview: Recurrent, since 2004 -- multiple GI evaluations, no clear cause; HIDA, CT, U/S, EGD x 2 (as of entry date 2009) Diaphragmatic hernia without mention of obstruction or gangrene 01/24/2007 07/22/2017 Unspecified constipation 012 documented as of this encounter (statuses as of 04/10/2022) [facility] of Past illness Narrative* Problem Noted Date Resolved Date Left lateral abdominal pain 02/15/2019 12/0 11/2018 Overview: Mid quadrant, chronic and paroxysmal. Left hip pain 09/14/2017 06/15/2019 Overview: Seeing [facility] Well adult exam 01/21/2017 06/15/2019 Overview: last done: 01/15/2019 Hiatal hernia 07/22/2016 06/15/2019 Chronic pain of left knee 07/22/20162018 Chronic bilateral low back pain 01/01/2016 06/15/2019 Overview: Seen [facility] Encounter for gynecological examination without abnormal finding 12/06/2015 06/15/2019 Overview: Seeing [facility] Encounter for screening for cardiovascular disor ders 12/06/2015 06/15/2019 Colon cancer screening 12/06/2015 9 Non morbid obesity 08/20/2015 07/22/2017 Routine general medical exam ination at a health care facility 11/20/2009 12/22/2011 Overview: 11/20/2009, from Dr. Dubois Routine gynecological examination 11/20/2009 12/22/2011 Overview: [facility], [facility] [place] Diarrhea 11/20/2009 12/22/2011 Overview: Recurrent, since 2004 -- multiple GI evaluations, no clear cause; HIDA, CT, U/S, EGD x 2 (as of entry date 2009) Diaphragmatic hernia without mention of obstruction or gangrene 01/24/2007 07/22/2017 Unspecified constipation 012 documented as of this encounter (statuses as of 04/30/2022) [facility] of Past illness Narrative* Problem [...] without abnormal finding 12/06/2015 06/15/2019 Overview: Seeing [facility] Encounter for screening for cardiovascular disor ders 12/06/2015 06/15/2019 Colon cancer screening 12/06/2015 9 Non morbid obesity 08/20/2015 07/22/2017 Routine general medical exam ination at a health care facility 11/20/2009 12/22/2011 Overview: 11/20/2009, from Dr. Dubois Routine gynecological examination 11/20/2009 12/22/2011 Overview: [facility] [place] Diarrhea 11/20/2009 12/22/2011 Overview: Recurrent, since 2004 -- multiple GI evaluations, no clear cause; HIDA, CT, U/S, EGD x 2 (as of entry date 2009) Diaphragmatic hernia without mention of obstruction or gangrene 01/24/2007 07/22/2017 Unspecified constipation 012 documented as of this encounter (statuses as of 07/15/2022) [facility] of Past illness Narrative* Problem [...] without abnormal finding 12/06/2015 06/15/2019 Overview: Seeing [facility] Encounter for screening for cardiovascular disor ders 12/06/2015 06/15/2019 Colon cancer screening 12/06/2015 9 Non morbid obesity 08/20/2015 07/22/2017 Routine general medical exam ination at a health care facility 11/20/2009 12/22/2011 Overview: 11/20/2009, from Dr. Dubois Routine gynecological examination 11/20/2009 12/22/2011 Overview: [facility], [facility] [place] Diarrhea 11/20/2009 12/22/2011 Overview: Recurrent, since 2004 -- multiple GI evaluations, no clear cause; HIDA, CT, U/S, EGD x 2 (as of entry date 2009) Diaphragmatic hernia without mention of obstruction or gangrene 01/24/2007 07/22/2017 Unspecified constipation 012 documented as of this encounter (statuses as of 07/17/2022) [facility] of Past illness Narrative* Problem [...] without abnormal finding 12/06/2015 06/15/2019 Overview: Seeing [facility] Encounter for screening for cardiovascular disor ders 12/06/2015 06/15/2019 Colon cancer screening 12/06/2015 9 Non morbid obesity 08/20/2015 07/22/2017 Routine general medical exam ination at a health care facility 11/20/2009 12/22/2011 Overview: 11/20/2009, from Dr. Dubois Routine gynecological examination 11/20/2009 12/22/2011 Overview: [facility], [facility] Diarrhea 11/20/2009 12/22/2011 Overview: Recurrent, since 2004 -- multiple GI evaluations, no clear cause; HIDA, CT, U/S, EGD x 2 (as of entry date 2009) Diaphragmatic hernia without mention of obstruction or gangrene 01/24/2007 07/22/2017 Unspecified constipation 012 documented as of this encounter (statuses as of 08/19/2022) [facility] of Past illness Narrative* Problem [...] abnormal finding 12/06/2015 06/15/2019 Overview: Seeing [facility] Encounter for screening for cardiovascular disor ders 12/06/2015 06/15/2019 Colon cancer screening 12/06/2015 9 Non morbid obesity 08/20/2015 07/22/2017 Routine general medical exam ination at a health care facility 11/20/2009 12/22/2011 Overview: 11/20/2009, from Dr. Dubois Routine gynecological examination 11/20/2009 12/22/2011 Overview: [facility], [facility] [place] Diarrhea 11/20/2009 12/22/2011 Overview: Recurrent, since 2004 -- multiple GI evaluations, no clear cause; HIDA, CT, U/S, EGD x 2 (as of entry date 2009) Diaphragmatic hernia without mention of obstruction or gangrene 01/24/2007 07/22/2017 Unspecified constipation 012 documented as of this encounter (statuses as of 09/18/2022) [facility]08-07-2019 History of Past illness Narrative* Problem [...] without abnormal finding 12/06/2015 06/15/2019 Overview: Seeing [facility] Encounter for screening for cardiovascular disor ders 12/06/2015 06/15/2019 Colon cancer screening 12/06/2015 9 Non morbid obesity 08/20/2015 07/22/2017 Routine general medical exam ination at a health care facility 11/20/2009 12/22/2011 Overview: 11/20/2009, from Dr. Dubois Routine gynecological examination 11/20/2009 12/22/2011 Overview: [facility], [facility] Diarrhea 11/20/2009 12/22/2011 Overview: Recurrent, since 2004 -- multiple GI evaluations, no clear cause; HIDA, CT, U/S, EGD x 2 (as of entry date 2009) Diaphragmatic hernia without mention of obstruction or gangrene 01/24/2007 07/22/2017 Unspecified constipation 012 documented as of this encounter (statuses as of 10/02/2022) [facility]08-07-2019 History of Past illness Narrative* Problem [...] abnormal finding 12/06/2015 06/15/2019 Overview: Seeing [facility] Encounter for screening for cardiovascular disor ders 12/06/2015 06/15/2019 Colon cancer screening 12/06/2015 9 Non morbid obesity 08/20/2015 07/22/2017 Routine general medical exam ination at a health care facility 11/20/2009 12/22/2011 Overview: 11/20/2009, from Dr. Dubois Routine gynecological examination 11/20/2009 12/22/2011 Overview: [facility], [facility] Diarrhea 11/20/2009 12/22/2011 Overview: Recurrent, since 2004 -- multiple GI evaluations, no clear cause; HIDA, CT, U/S, EGD x 2 (as of entry date 2009) Diaphragmatic hernia without mention of obstruction or gangrene 01/24/2007 07/22/2017 Unspecified constipation 012 documented as of this encounter (statuses as of 10/08/2022) [facility]08-07-2019 History of Past illness Narrative* Problem [...] without abnormal finding 12/06/2015 06/15/2019 Overview: [facility] Encounter for screening for cardiovascular disor ders 12/06/2015 06/15/2019 Colon cancer screening 12/06/2015 9 Non morbid obesity 08/20/2015 07/22/2017 Routine general medical exam ination at a health care facility 11/20/2009 12/22/2011 Overview: 11/20/2009, from Dr. Dubois Routine gynecological examination 11/20/2009 12/22/2011 Overview: [facility], [facility] [place] Diarrhea 11/20/2009 12/22/2011 Overview: Recurrent, since 2004 -- multiple GI evaluations, no clear cause; HIDA, CT, U/S, EGD x 2 (as of entry date 2009) Diaphragmatic hernia without mention of obstruction or gangrene 01/24/2007 07/22/2017 Unspecified constipation 012 documented as of this encounter (statuses as of 10/19/2022) [facility]08-07-2019 History of Past illness Narrative* Problem [...] without abnormal finding 12/06/2015 06/15/2019 Overview: Seeing [facility] Encounter for screening for cardiovascular disor ders 12/06/2015 06/15/2019 Colon cancer screening 12/06/2015 9 Non morbid obesity 08/20/2015 07/22/2017 Routine general medical exam ination at a health care facility 11/20/2009 12/22/2011 Overview: 11/20/2009, from Dr. Dubois Routine gynecological examination 11/20/2009 12/22/2011 Overview: [facility], [facility] [place] Diarrhea 11/20/2009 12/22/2011 Overview: Recurrent, since 2004 -- multiple GI evaluations, no clear cause; HIDA, CT, U/S, EGD x 2 (as of entry date 2009) Diaphragmatic hernia without mention of obstruction or gangrene 01/24/2007 07/22/2017 Unspecified constipation 012 documented as of this encounter (statuses as of 10/19/2022) [facility]08-07-2019 History of Past illness Narrative* Problem [...] without abnormal finding 12/06/2015 06/15/2019 Overview: Seeing [facility] Encounter for screening for cardiovascular disorders 12/06/2015 06/15/2019 Colon cancer screening 12/06/201506/15 Non morbid obesity 08/20/2015 8 Routine general medical exam ination at a health care facility 11/20/2009 12/22/2011 Overview: 11/20/2009, from Dr. Dubois Routine gynecological examination 11/20/2009 12/22/2011 Overview: [facility], [facility] [place] Diarrhea 11/20/2009 12/22/2011 Overview: Recurrent, since 2004 -- multiple GI evaluations, no clear cause; HIDA, CT, U/S, EGD x 2 (as of entry date 2009) Diaphragmatic hernia without mention of obstruction or gangrene 01/24/2007 07/22/2017 Unspecified constipation 06/2012 documented as of this encounter (statuses as of 01/26/2023) [facility]08-07-2019 History of Past illness Narrative* Problem [...] without abnormal finding 12/06/2015 06/15/2019 Overview: Seeing [facility] Encounter for screening for cardiovascular disorders 12/06/2015 06/15/2019 Colon cancer screening 12/06/201506/15 Non morbid obesity 08/20/2015 8 Routine general medical exam ination at a health care facility 11/20/2009 12/22/2011 Overview: 11/20/2009, from Dr. Dubois Routine gynecological examination 11/20/2009 12/22/2011 Overview: [facility], [facility] [place] Diarrhea 11/20/2009 12/22/2011 Overview: Recurrent, since 2004 -- multiple GI evaluations, no clear cause; HIDA, CT, U/S, EGD x 2 (as of entry date 2009) Diaphragmatic hernia without mention of obstruction or gangrene 01/24/2007 07/22/2017 Unspecified constipation 06/2012 documented as of this encounter (statuses as of 03/03/2023) [facility]08-07-2019 History of Past illness Narrative* Problem [...] without abnormal finding 12/06/2015 06/15/2019 Overview: Seeing [facility] Encounter for screening for cardiovascular disorders 12/06/2015 06/15/2019 Colon cancer screening 12/06/201506/15 Non morbid obesity 08/20/2015 8 Routine general medical exam ination at a health care facility 11/20/2009 12/22/2011 Overview: 11/20/2009, from Dr. Dubois Routine gynecological examination 11/20/2009 12/22/2011 Overview: [facility], [facility] [place] 11/20/2009 12/22/2011 Overview: Recurrent, since 2004 -- multiple GI evaluations, no clear cause; HIDA, CT, U/S, EGD x 2 (as of entry date 2009) Diaphragmatic hernia without mention of obstruction or gangrene 01/24/2007 07/22/2017 Unspecified constipation 06/2012 documented as of this encounter (statuses as of 03/04/2023) [facility]08-[facility]-2019 History of Past illness Narrative* Problem [...] without abnormal finding 12/06/2015 06/15/2019 Overview: Seeing [facility] Encounter for screening for cardiovascular disorders 12/06/2015 06/15/2019 Colon cancer screening 12/06/201506/15 Non morbid obesity 08/20/2015 8 Routine general medical exam ination at a health care facility 11/20/2009 12/22/2011 Overview: 11/20/2009, from Dr. Dubois Routine gynecological examination 11/20/2009 12/22/2011 Overview: [facility] [place] Di[place] 11/20/2009 12/22/2011 Overview: Recurrent, since 2004 -- multiple GI evaluations, no clear cause; HIDA, CT, U/S, EGD x 2 (as of entry date 2009) Diaphragmatic hernia without mention of obstruction or gangrene 01/24/2007 07/22/2017 Unspecified constipation 06/2012 documented as of this encounter (statuses as of 03/22/2023) [facility]08-07-2019 History of Past illness Narrative* Problem [...] without abnormal finding 12/06/2015 06/15/2019 Overview: Seeing [facility] Encounter for screening for cardiovascular disorders 12/06/2015 06/15/2019 Colon cancer screening 12/06/201506/15 Non morbid obesity 08/20/2015 8 Routine general medical exam ination at a health care facility 11/20/2009 12/22/2011 Overview: 11/20/2009, from Dr. Dubois Routine gynecological examination 11/20/2009 12/22/2011 Overview: [facility], [facility] Di[facility] 11/20/2009 12/22/2011 Overview: Recurrent, since 2004 -- multiple GI evaluations, no clear cause; HIDA, CT, U/S, EGD x 2 (as of entry date 2009) Diaphragmatic hernia without mention of obstruction or gangrene 01/24/2007 07/22/2017 Unspecified constipation 06/2012 documented as of this encounter (statuses as of 04/06/2023) [facility]08-[facility]2019 History of Past illness Narrative* Problem [...] without abnormal finding 12/06/2015 06/15/2019 Overview: Seeing [facility] Encounter for screening for cardiovascular disorders 12/06/2015 06/15/2019 Colon cancer screening 12/06/201506/15 Non morbid obesity 08/20/2015 8 Routine general medical exam ination at a health care facility 11/20/2009 12/22/2011 Overview: 11/20/2009, from Dr. Dubois Routine gynecological examination 11/20/2009 12/22/2011 Overview: [facility], [facility] Matti Salinas 11/20/2009 12/22/2011 Overview: Recurrent, since 2004 -- multiple GI evaluations, no clear cause; HIDA, CT, U/S, EGD x 2 (as of entry date 2009) Diaphragmatic hernia without mention of obstruction or gangrene 01/24/2007 07/22/2017 Unspecified constipation 06/2012 documented as of this encounter (statuses as of 05/16/2023) [facility]08-07-2019 History of Past illness Narrative* Problem [...] without abnormal finding 12/06/2015 06/15/2019 Overview: Seeing [facility] Encounter for screening for cardiovascular disorders 12/06/2015 06/15/2019 Colon cancer screening 12/06/201506/15 Non morbid obesity 08/20/2015 8 Routine general medical exam ination at a health care facility 11/20/2009 12/22/2011 Overview: 11/20/2009, from Dr. Dubois Routine gynecological examination 11/20/2009 12/22/2011 Overview: [facility], [facility] [place] Di[place] 11/20/2009 12/22/2011 Overview: Recurrent, since 2004 -- multiple GI evaluations, no clear cause; HIDA, CT, U/S, EGD x 2 (as of entry date 2009) Diaphragmatic hernia without mention of obstruction or gangrene 01/24/2007 07/22/2017 Unspecified constipation 06/2012 documented as of this encounter (statuses as of 05/16/2023) [facility]08-07-2019 History of Past illness Narrative* Problem [...] without abnormal finding 12/06/2015 06/15/2019 Overview: Seeing [facility] Encounter for screening for cardiovascular disorders 12/06/2015 06/15/2019 Colon cancer screening 12/06/201506/15 Non morbid obesity 08/20/2015 8 Routine general medical exam ination at a health care facility 11/20/2009 12/22/2011 Overview: 11/20/2009, from Dr. Dubois Routine gynecological examination 11/20/2009 12/22/2011 Overview: [facility], [facility] Di[facility] 11/20/2009 12/22/2011 Overview: Recurrent, since 2004 -- multiple GI evaluations, no clear cause; HIDA, CT, U/S, EGD x 2 (as of entry date 2009) Diaphragmatic hernia without mention of obstruction or gangrene 01/24/2007 07/22/2017 Unspecified constipation 06/2012 documented as of this encounter (statuses as of 05/16/2023) [facility]08-07-2019 History of Past illness Narrative* Problem [...] abnormal finding 12/06/2015 06/15/2019 Overview: Seeing [facility] Encounter for screening for cardiovascular disorders 12/06/2015 06/15/2019 Colon cancer screening 12/06/201506/15 Non morbid obesity 08/20/2015 8 Routine general medical exam ination at a health care facility 11/20/2009 12/22/2011 Overview: 11/20/2009, from Dr. Dubois Routine gynecological examination 11/20/2009 12/22/2011 Overview: [facility], [facility] Di[facility] 11/20/2009 12/22/2011 Overview: Recurrent, since 2004 -- multiple GI evaluations, no clear cause; HIDA, CT, U/S, EGD x 2 (as of entry date 2009) Diaphragmatic hernia without mention of obstruction or gangrene 01/24/2007 07/22/2017 Unspecified constipation 06/2012 documented as of this encounter (statuses as of 06/22/2023) [facility]08-[facility]-2019 History of Past illness Narrative* Problem [...] abnormal finding 12/06/2015 06/15/2019 Overview: Seeing [facility] Encounter for screening for cardiovascular disorders 12/06/2015 06/15/2019 Colon cancer screening 12/06/201506/15 Non morbid obesity 08/20/2015 8 Routine general medical exam ination at a health care facility 11/20/2009 12/22/2011 Overview: 11/20/2009, from Dr. Dubois Routine gynecological examination 11/20/2009 12/22/2011 Overview: [facility], [facility] [place] Diarrhea 11/20/2009 12/22/2011 Overview: Recurrent, since 2004 -- multiple GI evaluations, no clear cause; HIDA, CT, U/S, EGD x 2 (as of entry date 2009) Diaphragmatic hernia without mention of obstruction or gangrene 01/24/2007 07/22/2017 Unspecified constipation 06/2012 documented as of this encounter (statuses as of 09/03/2023) [facility]08-[facility]2019 History of Past illness Narrative* Problem [...] without abnormal finding 12/06/2015 06/15/2019 Overview: Seeing [facility] Encounter for screening for cardiovascular disorders 12/06/2015 06/15/2019 Colon cancer screening 12/06/201506/15 Non morbid obesity 08/20/2015 8 Routine general medical exam ination at a health care facility 11/20/2009 12/22/2011 Overview: 11/20/2009, from Dr. Dubois Routine gynecological examination 11/20/2009 12/22/2011 Overview: [facility], [facility] Di[facility] 11/20/2009 12/22/2011 Overview: Recurrent, since 2004 -- multiple GI evaluations, no clear cause; HIDA, CT, U/S, EGD x 2 (as of entry date 2009) Diaphragmatic hernia without mention of obstruction or gangrene 01/24/2007 07/22/2017 Unspecified constipation 06/2012 documented as of this encounter (statuses as of 09/06/2023) [facility]08-[facility]2019 History of Past illness Narrative* Problem [...] without abnormal finding 12/06/2015 06/15/2019 Overview: Seeing [facility] Encounter for screening for cardiovascular disorders 12/06/2015 06/15/2019 Colon cancer screening 12/06/201506/15 Non morbid obesity 08/20/2015 8 Routine general medical exam ination at a health care facility 11/20/2009 12/22/2011 Overview: 11/20/2009, from Dr. Dubois Routine gynecological examination 11/20/2009 12/22/2011 Overview: [facility], [facility] [place] Diarrhea 11/20/2009 12/22/2011 Overview: Recurrent, since 2004 -- multiple GI evaluations, no clear cause; HIDA, CT, U/S, EGD x 2 (as of entry date 2009) Diaphragmatic hernia without mention of obstruction or gangrene 01/24/2007 07/22/2017 Unspecified constipation 06/2012 documented as of this encounter (statuses as of 09/07/2023) [facility]08-[facility]2019 History of Past illness Narrative* Problem [...] without abnormal finding 12/06/2015 06/15/2019 Overview: Seeing [facility] Encounter for screening for cardiovascular disorders 12/06/2015 06/15/2019 Colon cancer screening 12/06/201506/15 Non morbid obesity 08/20/2015 8 Routine general medical exam ination at a health care facility 11/20/2009 12/22/2011 Overview: 11/20/2009, from Dr. Dubois Routine gynecological examination 11/20/2009 12/22/2011 Overview: [facility], [facility] [place] Diarrhea 11/20/2009 12/22/2011 Overview: Recurrent, since 2004 -- multiple GI evaluations, no clear cause; HIDA, CT, U/S, EGD x 2 (as of entry date 2009) Diaphragmatic hernia without mention of obstruction or gangrene 01/24/2007 07/22/2017 Unspecified constipation 06/2012 documented as of this encounter (statuses as of 10/01/2023) [facility]08-[facility]2019 History of Past illness Narrative* Problem [...] without abnormal finding 12/06/2015 06/15/2019 Overview: Seeing [facility] Encounter for screening for cardiovascular disorders 12/06/2015 06/15/2019 Colon cancer screening 12/06/201506/15 Non morbid obesity 08/20/2015 8 Routine general medical exam ination at a health care facility 11/20/2009 12/22/2011 Overview: 11/20/2009, from Dr. Dubois Routine gynecological examination 11/20/2009 12/22/2011 Overview: [facility], [facility] [place] Diarrhea 11/20/2009 12/22/2011 Overview: Recurrent, since 2004 -- multiple GI evaluations, no clear cause; HIDA, CT, U/S, EGD x 2 (as of entry date 2009) Diaphragmatic hernia without mention of obstruction or gangrene 01/24/2007 07/22/2017 Unspecified constipation 06/2012 documented as of this encounter (statuses as of 10/04/2023) [facility]2019 History of Past illness Narrative* Problem [...] without abnormal finding 12/06/2015 06/15/2019 Overview: Seeing [facility] Encounter for screening for cardiovascular disorders 12/06/2015 06/15/2019 Colon cancer screening 12/06/201506/15 Non morbid obesity 08/20/2015 8 Routine general medical exam ination at a health care facility 11/20/2009 12/22/2011 Overview: 11/20/2009, from Dr. Dubois Routine gynecological examination 11/20/2009 12/22/2011 Overview: [facility], [facility] [place] Diarrhea 11/20/2009 12/22/2011 Overview: Recurrent, since 2004 -- multiple GI evaluations, no clear cause; HIDA, CT, U/S, EGD x 2 (as of entry date 2009) Diaphragmatic hernia without mention of obstruction or gangrene 01/24/2007 07/22/2017 Unspecified constipation 06/2012 documented as of this encounter (statuses as of 10/05/2023) [facility] Diagnosis Bacterial pneumonia- Primary Bacterial pneumonia, unspecified Mild persistent asthma without complication Unspecified asthma Primary insomnia Persistent disorder of initiating or maintaining sleep [facility] information [facility] Phone: Evaluation note* Diagnosis Medicare annual [...] Other screening mammogram [facility] Diagnosis Mixed hyperlipidemia- Primary Essential [...] Abnormal weight gain [facility] Diagnosis Foreign body (FB) in soft tissue- Primary Residual foreign body in soft tissue Acquired hallux valgus of left foot Hallux valgus (acquired) Pain in left foot Pain in limb [facility] Diagnosis Mild persistent asthma without complication Unspecified asthma [facility] Diagnosis Subacute cough- Primary Cough COPD with exacerbation (HCC) Obstructive chronic bronchitis with exacerbation [facility]* Diagnosis Medicare annual wellness visit, subsequent- Primary Routine general medical examination at a [facility] care facility Advance directive discussed with patient Other specified counseling Mixed hyperlipidemia Elevated fasting blood sugar Impaired fasting glucose Mild persistent asthma without complication Unspecified asthma Primary insomnia Persistent disorder of initiating or maintaining sleep Asymptomatic postmenopausal status Senile osteoporosis [facility]* Diagnosis Age-related osteoporosis without current pathological fracture- Primary Senile osteoporosis [facility] Diagnosis Senile osteoporosis- Primary Chronic sinusitis, unspecified location Chronic cough Cough [facility] Foreign body (FB) in soft tissue Residual foreign body in soft tissue Acquired hallux valgus of left foot Hallux valgus (acquired) [facility] Diagnosis Asymptomatic postmenopausal status Senile osteoporosis [facility] Diagnosis Encounter for screening mammogram for malignant neoplasm of breast Other screening mammogram [facility] Diagnosis Visit for screening mammogram- Primary Other screening mammogram [facility] Diagnosis Mixed hyperlipidemia- Primary URI, [...] tremor Senile osteoporosis [facility] Diagnosis Bronchitis- Primary Bronchitis, not specified as acute or chronic Moderate persistent asthma with (acute) exacerbation [facility] Diagnosis Encounter for gynecological examination with abnormal finding- Primary Routine gynecological examination Encounter for screening mammogram for malignant neoplasm of breast Other screening mammogram [facility] Diagnosis Post-nasal drip- Primary Postnasal drip Primary insomnia Persistent disorder of initiating or maintaining sleep [facility] Diagnosis Mild persistent asthma without complication- Primary Unspecified asthma Persistent cough Cough Second hand smoke exposure Other specified personal history presenting hazards to health [facility] Diagnosis Bronchitis- Primary Bronchitis, not specified as acute or chronic Persistent cough Cough Mild persistent asthma without complication Unspecified asthma [facility] Diagnosis Inflamed skin tag- Primary Unspecified hypertrophic and atrophic condition of skin Primary insomnia Persistent disorder of initiating or maintaining sleep [facility] Diagnosis Chronic obstructive pulmonary disease, unspecified COPD type (HCC) [facility] Diagnosis Chronic obstructive pulmonary disease, unspecified COPD type (HCC) [facility] Diagnosis Chronic obstructive pulmonary disease, unspecified COPD type (HCC) Chronic obstructive pulmonary disease, unspecified COPD type (HCC) Cough variant asthma- Primary Multiple allergies Other allergy, other than to medicinal agents [facility] Diagnosis Right knee pain, unspecified chronicity- Primary documented [facility] Diagnosis Pre-operative examination- Primary Preoperative examination, [...] osteoarthrosis, lower leg documented in this encounter [facility] note* Diagnosis Pre-operative examination- Primary Preoperative [...] pain, unspecified chronicity [facility] Diagnosis Pre-operative examination- Primary Preoperative examination, [...] acute or chronic [facility] note* Diagnosis Pre-operative examination- Primary Preoperative examination, [...] of other medications [facility] Diagnosis Pre-operative examination- Primary Preoperative examination, [...] Subacute cough Cough [facility] Diagnosis Pre-operative examination- Primary Preoperative examination, [...] Obesity, unspecified Cough [facility] Diagnosis Pre-operative examination- Primary Preoperative examination, [...] of cerebral infarction documented in this encounter [facility] note* Diagnosis Pre-operative examination- Primary Preoperative [...] Compression of vein [facility] Diagnosis Pre-operative examination- Primary Preoperative examination, [...] or maintaining sleep [facility] Diagnosis Pre-operative examination- Primary Preoperative examination, [...] right knee- Primary [facility] Diagnosis Pre-operative examination- Primary Preoperative examination, [...] of right knee [facility] Diagnosis Pre-operative examination- Primary Preoperative examination, [...] right knee- Primary documented in this encounter [facility] note* Diagnosis Pre-operative examination- Primary Preoperative [...] arthropathy, lower leg documented in this encounter [facility] note* Diagnosis Pre-operative examination- Primary Preoperative [...] osteoarthrosis, lower leg [facility] Diagnosis Pre-operative examination- Primary Preoperative examination, [...] osteoarthrosis, lower leg [facility] Diagnosis Pre-operative examination- Primary Preoperative examination, [...] on testing results [facility] Diagnosis Pre-operative examination- Primary Preoperative [...] osteoarthrosis, lower leg [facility] Diagnosis Pre-operative examination- Primary Preoperative examination, [...] osteoarthrosis, lower leg documented in this encounter [facility] note* Diagnosis Pre-operative examination- Primary Preoperative [...] knee arthroplasty, right [facility] Diagnosis Pre-operative examination- Primary Preoperative [...] arthroplasty, right- Primary [facility] Diagnosis Pre-operative examination- Primary Preoperative examination, [...] knee arthroplasty, right [facility] Diagnosis Pre-operative examination- Primary Preoperative examination, [...] knee arthroplasty, right [facility] Diagnosis Pre-operative examination- Primary Preoperative examination, [...] knee arthroplasty, right [facility] Diagnosis Pre-operative examination- Primary Preoperative examination, [...] arthroplasty, right- Primary [facility] Diagnosis Pre-operative examination- Primary Preoperative [...] arthroplasty, left- Primary documented in this encounter [facility] note* Diagnosis Pre-operative examination- Primary Preoperative [...] arthroplasty, left- Primary [facility] Diagnosis Pre-operative examination- Primary Preoperative examination, [...] arthroplasty, left- Primary [facility] Diagnosis Pre-operative examination- Primary Preoperative examination, [...] arthroplasty, right- Primary documented in this encounter [facility] note* Diagnosis Pre-operative examination- Primary Preoperative [...] arthroplasty, left- Primary [facility] Diagnosis Pre-operative examination- Primary Preoperative [...] arthroplasty, left- Primary [facility] Diagnosis Pre-operative examination- Primary Preoperative examination, [...] arthroplasty, right- Primary [facility] Diagnosis Pre-operative examination- Primary Preoperative examination, [...] arthroplasty, left- Primary [facility] Diagnosis Pre-operative examination- Primary Preoperative examination, [...] arthroplasty, left- Primary documented in this encounter [facility] note* Diagnosis Pre-operative examination- Primary Preoperative [...] Other screening mammogram documented in this encounter [facility] note* Diagnosis Pre-operative examination- Primary Preoperative [...] strain, initial encounter [facility] Diagnosis Pre-operative examination- Primary Preoperative [...] pain without sciatica [facility] Diagnosis Pre-operative examination- Primary Preoperative examination, [...] or maintaining sleep [facility] Diagnosis Pre-operative examination- Primary Preoperative examination, [...] or maintaining sleep [facility] Diagnosis Pre-operative examination- Primary Preoperative examination, [...] and foot joint [facility] Diagnosis Pre-operative examination- Primary Preoperative examination, [...] of left ankle [facility] Inst[facility] 1. If your leg becomes much larger in size return to the emergency department 2. If you develop chest pain or shortness of breath abruptly return to the emergency department 3. There was also noted to be a nonvascular structure behind your knee. This will need to be followed by Dr. Nunn. Work Phone: Patient's home Plan of care [...] Discuss all medications you are taking, even bcoc-jho-akpvqme medicines, with your provider and pharmacist since [...] to call provider. documented in this encounter [facility] home Plan of care note* Visit Details Visit Type -PROPERTY SITE MANAGER ROUTINE Discipline -Physical Therapy Problems Problem Description [...] home exercise program. [facility] Visit Details Visit Type -PROPERTY SITE MANAGER ROUTINE Discipline -Physical Therapy Problems Problem Description [...] home exercise program. documented in this encounter [facility]'s home Plan of care note* Visit Details Visit Type -PROPERTY SITE MANAGER ROUTINE Discipline -Physical Therapy Problems Problem Description [...] home exercise program. documented in this encounter [facility]'s home Plan of care note* Visit Details Visit Type -PROPERTY SITE MANAGER ROUTINE Discipline -Physical Therapy Problems Problem Description [...] home exercise program. [facility] Visit Details Visit Type -PROPERTY SITE MANAGER ROUTINE Discipline -Physical Therapy Problems Problem Description [...] to call 911. [facility] Visit [...] and written instructions. documented in this encounter [facility] for referral (narrative)* Diagnostic Procedure Only (Routine) - Closed Specialty Diagnoses / Procedures Referred By Contac t Referred To Contact XR IMAGING Diagnoses Pain in left foot Procedures XR FOOT GENERAL 3V AP/LAT/OBL LEFT RADEX FOOT COMPLETE MINIMUM 3 VIEWS Maciej Brown [address] [place] [address] Xr Imaging Referral ID Status Reason Start Date Expiration Date V isits Requested Visits Authorized [id number] Closed Auto-Generate d Referral 04/09/2022 05/09/2023 1 1 T [facility] for referral (narrative)* Diagnostic Procedure Only (Routine) - Closed Specialty Diagnoses / Procedures Referred By Contac t Referred To Contact XR IMAGING Diagnoses Pain in left foot Procedures XR FOOT GENERAL 3V AP/LAT/OBL LEFT RADEX FOOT COMPLETE MINIMUM 3 VIEWS Maciej Brown [address] [place] [address] Xr Imaging Referral ID Status Reason Start Date Expiration Date V isits Requested Visits Authorized [id number] Closed Auto-Generate d Referral 04/09/2022 05/09/2023 1 1 T [facility] for referral (narrative)* Diagnostic Procedure Only (Routine) - Closed Specialty Diagnoses / Procedures Referred By Contac t Referred To Contact BR IMAGING Diagnoses Encounter for screening mammogram for malignant neoplasm of breast Procedures KALLI SCREENING SCREENING MAMMOGRAPHY BI 2-VIEW BREAST INC Suzi Ricardo MD [address] [place] [address] [facility] [address] [place] [address] Referral ID Status Reason Start Date Expiration Date V isits Requested Visits Authorized [id number] Closed Auto-Generate d Referral 07/10/2022 08/08/2023 1 1 [facility] for referral (narrative)* Diagnostic Procedure Only (Routine) - Closed Specialty Diagnoses / Procedures Referred By Contac t Referred To Contact XR IMAGING Diagnoses Foreign body (FB) in soft tissue Acquired hallux valgus of left foot Procedures XR FOOT GENERAL 3V AP/LAT/OBL LEFT RADEX FOOT COMPLETE MINIMUM 3 VIEWS Maciej Brown [address] [place] [address] Xr Imaging Referral ID Status Reason Start Date Expiration Date V isits Requested Visits Authorized [id number] Closed Auto-Generate d Referral 09/18/2022 10/18/2023 1 1 [facility] for referral (narrative)* Diagnostic Procedure Only (Routine) - Closed Specialty Diagnoses / Procedures Referred By Contac t Referred To Contact XR IMAGING Diagnoses Foreign body (FB) in soft tissue Acquired hallux valgus of left foot Procedures XR FOOT GENERAL 3V AP/LAT/OBL LEFT RADEX FOOT COMPLETE MINIMUM 3 VIEWS Maciej Brown [address] [place] [address] [place] [address] Referral ID Status Reason Start Date Expiration Date V isits Requested Visits Authorized [id number] Closed Auto-Generate d Referral 09/18/2022 10/18/2023 1 1 [facility] for referral (narrative)* Diagnostic Procedure Only (Routine) - Closed Specialty Diagnoses / Procedures Referred By Contac t Referred To Contact BR IMAGING Diagnoses Encounter for screening mammogram for malignant neoplasm of breast Procedures KALLI SCREENING SCREENING MAMMOGRAPHY BI 2-VIEW BREAST INC CAD Suzi Dobson MD [address] [place] [address] [facility] [address] [place] [address] Referral ID Status Reason Start Date Expiration Date V isits Requested Visits Authorized [id number] Closed Auto-Generate d Referral 07/10/2022 08/08/2023 1 1 [facility] for referral (narrative)* Diagnostic Procedure Only (Routine) - Pending Review Specialty Diagnoses / Procedures Referred By Aurora t Referred To Contact BR IMAGING Diagnoses Visit for screening mammogram Procedures KALLI SCREENING SCREENING MAMMOGRAPHY BI 2-VIEW BREAST INC CAD Scot Blank MD [address] [place] [address] [facility] [address] [place] [address] Referral ID Status Reason Start Date Expiration Date Visits Requested Visits Authorized [id number] Pending Review Auto-Generat ed Referral 3 07/20/2024 1 1 [facility] for referral (narrative)* Diagnostic Procedure Only (Routine) - Authorized Specialty Diagnoses / Procedures [facility] Diagnoses Encounter for gynecological examination with abnormal finding Encounter for screening mammogram for malignant neoplasm of breast Procedures KALLI SCREENING SCREENING MAMMOGRAPHY BI 2-VIEW BREAST INC CAD Talya May APRN.CNP [address] [place] [address] [facility] [address] [place] [address] Referral ID Status Reason Start Date Expiration Date Visits Requested Visits Authorized [id number] Authorized Auto-Generat ed Referral 10/01/2023 10/30/2024 1 1 [facility] for referral (narrative)* Outpatient Procedure (Routine) - Closed Specialty Diagnoses / Procedures Referred By Nbaac t Referred To Contact [facility] Diagnoses Chronic obstructive pulmonary disease, unspecified COPD type (HCC) Procedures NITRIC OXIDE, EXHALED NITRIC OXIDE GAS DETERMINATION Lorenza Reza MD [address] [place] [address] [facility] [place] [address] [place] [address] Referral ID Status Reason Start Date Expiration Date V isits Requested Visits Authorized [id number] Closed Auto-Generate d Referral 02/15/2024 03/16/2025 1 1 * Outpatient Procedure (Routine) - Closed Specialty Diagnoses / Procedures Referred By Contac t Referred To Contact [facility] Diagnoses Chronic obstructive pulmonary disease, unspecified COPD type (HCC) Procedures SPIROMETRY WITH DILATOR IF OBSTRUCTED BRNCDILAT RSPSE SPMTRY PRE&POST-BRNCDILAT Lorenza Contreras MD [address] [place] [address] [address] Referral ID Status Reason Start Date Expiration Date V isits Requested Visits Authorized [id number] Closed Auto-Generate d Referral 02/15/2024 03/16/2025 1 1 [facility] for referral (narrative)* Diagnostic Procedure Only (Routine) - New Request Specialty Diagnoses / Procedures Referred By Contac t Referred To Contact XR IMAGING Diagnoses Right knee pain, unspecified chronicity Procedures XR LEG FRONTAL HIP TO ANKLE MECHANICAL AXIS BONE LENGTH STUDIES Garth Gonzalez PA-C [address] [address] [place] [address] Referral ID Status Reason Start Date Expiration Date Visits Requested Visits Authorized [id number] New Request Auto-Generat ed Referral 02/24/2024 03/24/2025 1 1 [facility] for referral (narrative)* Diagnostic Procedure Only (Routine) - Closed Specialty Diagnoses / Procedures Referred By Contac t Referred To Contact XR IMAGING Diagnoses Right knee pain, unspecified chronicity Procedures XR LEG FRONTAL HIP TO ANKLE MECHANICAL AXIS BONE LENGTH STUDIES Garth Gonzalez PA-C [address] [address] [place] [address] Referral ID Status Reason Start Date Expiration Date V isits Requested Visits Authorized [id number] Closed Auto-Generate d Referral 02/24/2024 03/24/2025 1 1 * Diagnostic Procedure Only (Routine) - Closed Specialty Diagnoses / Procedures Referred By Contac t Referred To Contact XR IMAGING Diagnoses Pain Procedures XR KNEE GENERAL 4V AP BOTH/PA BOTH/LAT/MERC RIGHT RADIOLOGIC EXAM KNEE COMPLETE 4/MORE VIEWS Garth Gonzalez PA-C [address] [address] [place] [address] Referral ID Status Reason Start Date Expiration Date V isits Requested Visits Authorized [id number] Closed Auto-Generate d Referral 02/14/2024 03/15/2025 1 1 [facility] for referral (narrative)* Outpatient Procedure (Routine) - Authorized Specialty Diagnoses / Procedures Referred By Contac t Referred To Contact [facility] Diagnoses Bilateral carotid artery stenosis Procedures US CAROTID ARTERIES [facility] DUPLEX SCAN EXTRACRANIAL ART COMPL BI STUDY Jaylin Combs PA-C [address] [place] [address] [facility] [place] [address] [place] [address] Referral ID Status Reason Start Date Expiration Date Visits Requested Visits Authorized [id number] Authorized Auto-Generat ed Referral 03/24/2024 03/24/2025 1 1 * Consult, Test, Treat (Routine) - Authorized Specialty Diagnoses / Procedures Referred By Contac t Referred To Contact Vascular Medicine 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 Procedures CONSULT TO VASCULAR MEDICINE OFFICE/OUTPATIENT [facility] 60 MINUTES Jaylin Combs PA-C [address] [place] [address] Referral ID Status Reason Start Date Expiration Date Visits Requested Visits Authorized [id number] Authorized PCP Requested Referral 03/24/2024 03/24/2025 1 1 [facility] for referral (narrative)* Diagnostic Procedure Only (Routine) - Authorized Specialty Diagnoses / Procedures [facility] Ref[facility] To Contact MO[facility]CULAR [facility] FUNCTIONAL IMAGING Diagnoses Abnormal electrocardiogram Procedures NM CARDIAC PERF STRESS/PHARM MYOCARDIAL SPECT MULTIPLE STUDIES Yari Rincon APRN.MEDICAL ENGINEER [address] [id number] [facility] [address] [place] [address] Referral ID Status Reason Start Date Expiration Date Visits Requested Visits Authorized [id number] Authorized Auto-Generat ed Referral 07/30/2025 1 1 * Outpatient Procedure (Routine) - Closed Specialty Diagnoses / Procedures [facility] Diagnoses Pre-operative examination Abnormal electrocardiogram Procedures ECHO ECHO TTHRC R-T 2D W/WOM-MODE COMPL SPEC&COLR D Yari Rincon APRN.MEDICAL ENGINEER [address] [place] [address] [facility] [place] [address] [place] [address] Referral ID Status Reason Start Date Expiration Date V isits Requested Visits Authorized [id number] Closed Auto-Generate d Referral 06/30/2024 06/30/2025 1 1 * Outpatient Procedure (Routine) - Closed Specialty Diagnoses / Procedures [facility] Diagnoses Pre-operative examination Procedures ECG COMPLETE ECG ROUTINE ECG W/LEAST 12 LDS W/I&R Yari Rincon APRN.MEDICAL ENGINEER [address] [place] [address] [facility] [place] [address] [place] [address] Referral ID Status Reason Start Date Expiration Date V isits Requested Visits Authorized [id number] Closed Auto-Generate d Referral 06/30/2024 06/30/2025 1 1 [facility] for referral (narrative)* Diagnostic Procedure Only (Routine) - Closed Specialty Diagnoses / Procedures Referred By Aurora t Referred To Contact MOLECULAR & FUNCTIONAL IMAGING Diagnoses Abnormal electrocardiogram Procedures NM CARDIAC PERF STRESS/PHARM MYOCARDIAL SPECT MULTIPLE STUDIES Yari Rincon APRN.CNP [address] [place] [address] [facility] [address] [place] [address] Referral ID Status Reason Start Date Expiration Date V isits Requested Visits Authorized [id number] Closed Auto-Generate d Referral 06/30/2024 07/30/2025 1 1 [facility] for referral (narrative)* Diagnostic Procedure Only (Routine) - Authorized Specialty Diagnoses / Procedures Referred By Aurora key Referred To Contact XR IMAGING Diagnoses S/P total knee arthroplasty, right Procedures XR KNEE POST OP 3V AP/LAT/MERCHANT RIGHT RADIOLOGIC EXAMINATION KNEE 3 VIEWS Rebekah Eduardo PA-C [address] [place] [address] Xr Imaging [id number] Referral ID Status Reason Start Date Expiration Date Visits Requested Visits Authorized [id number] Authorized Auto-Generat ed Referral 08/04/2024 09/03/2025 1 1 [facility] for referral (narrative)No reason for referral information availableWSelect [facility] Work Phone: Reason for visit Narrative* Diagnostic Procedure Only (Routine) - Closed Specialty Diagnoses / Procedures Referred By Aurora key Referred To Contact XR IMAGING Diagnoses Pain in left foot Procedures XR FOOT GENERAL 3V AP/LAT/OBL LEFT RADEX FOOT COMPLETE MINIMUM 3 VIEWS Kevin Maciej [address] [place] [address] Xr Imaging Referral ID Status Reason Start Date Expiration Date V isits Requested Visits Authorized [id number] Closed Auto-Generate d Referral 04/09/2022 05/09/2023 1 1 [facility] for visit Narrative* Diagnostic Procedure Only (Routine) - Closed Specialty Diagnoses / Procedures Referred By Contac t Referred To Contact XR IMAGING Diagnoses Foreign body (FB) in soft tissue Acquired hallux valgus of left foot Procedures XR FOOT GENERAL 3V AP/LAT/OBL LEFT RADEX FOOT COMPLETE MINIMUM 3 VIEWS Kathleen Brownew [address] [place] [address] [place] [address] Referral ID Status Reason Start Date Expiration Date V isits Requested Visits Authorized [id number] Closed Auto-Generate d Referral 09/18/2022 10/18/2023 1 1 [facility] for visit Narrative* Diagnostic Procedure Only (Routine) - Closed Specialty Diagnoses / Procedures Referred By Contac t Referred To Contact BR IMAGING Diagnoses Encounter for screening mammogram for malignant neoplasm of breast Procedures KALLI SCREENING SCREENING MAMMOGRAPHY BI 2-VIEW BREAST INC Suzi Ricardo MD [address] [place] [address] [facility] Imaging [address] [place] [address] Referral ID Status Reason Start Date Expiration Date V isits Requested Visits Authorized [id number] Closed Auto-Generate d Referral 07/10/2022 08/08/2023 1 1 [facility] for visit Narrative* Diagnostic Procedure Only (Routine) - Closed Specialty Diagnoses / Procedures Referred By Contac t Referred To Contact XR IMAGING Diagnoses Pain Procedures XR KNEE GENERAL 4V AP BOTH/PA BOTH/LAT/MERC RIGHT RADIOLOGIC EXAM KNEE COMPLETE 4/MORE VIEWS Garth Gonzalez PA-C [address] [address] [place] [address] Referral ID Status Reason Start Date Expiration Date V isits Requested Visits Authorized [id number] Closed Auto-Generate d Referral 02/14/2024 03/15/2025 1 1 [facility] for visit Narrative* Diagnostic Procedure Only (Urgent) - Closed Specialty Diagnoses / Procedures Referred By Contac t Referred To Contact XR IMAGING Diagnoses Chronic pain of left ankle Procedures XR ANKLE GENERAL 3V AP/LAT/OBL LT X-RAY ANKLE MINIMUM 3 VIEWS Jermaine Boothe [employer]VERTISING [employer].MEDICAL ENGINEER [address] [place] [address] [place] [address] Referral ID Status Reason Start Date Expiration Date V isits Requested Visits Authorized [id number] Closed Auto-Generate d Referral 04/11/2021 05/11/2022 1 1 [facility] for visit Narrative* Diagnostic Procedure Only (Routine) - Closed Specialty Diagnoses / Procedures Referred By Contac t Referred To Contact MOLECULAR & FUNCTIONAL IMAGING Diagnoses Abnormal electrocardiogram Procedures NM CARDIAC PERF STRESS/PHARM MYOCARDIAL SPECT MULTIPLE STUDIES Yari Rincon, [employer]VERTISING INTER[employer].MEDICAL ENGINEER [address] [id number] Molecular [facility] Functional [facility] [address] [place] [address] Referral ID Status Reason Start Date Expiration Date V isits Requested Visits Authorized [id number] Closed Auto-Generate d Referral 06/30/2024 07/30/2025 1 1 [facility] for visit Narrative* Diagnostic Procedure Only (Routine) - Closed Specialty Diagnoses / Procedures Referred By Contac t Referred To Contact XR IMAGING Diagnoses S/P total knee arthroplasty, right Procedures XR KNEE POST OP 3V AP/LAT/MERCHANT RIGHT RADIOLOGIC EXAMINATION KNEE 3 VIEWS Rebekah Eduardo PA-C [address] [place] [address] Xr Imaging [id number] Referral ID Status Reason Start Date Expiration Date V isits Requested Visits Authorized [id number] Closed Auto-Generate d Referral 08/04/2024 09/03/2025 1 1 [facility] for visit Narrative* Diagnostic Procedure Only (Routine) - Closed Specialty Diagnoses / Procedures Referred By Contac t Referred To Contact [facility] Diagnoses Encounter for gynecological examination with abnormal finding Encounter for screening mammogram for malignant neoplasm of breast Procedures KALLI SCREENING SCREENING MAMMOGRAPHY BI 2-VIEW BREAST INC Talya Allred, KJ.MEDICAL ENGINEER [address] [place] [address] Phone: tel: fax: [facility] [address] [place] [address] Referral ID Status Reason Start Date Expiration Date V isits Requested Visits Authorized [id number] Closed Auto-Generate d Referral 10/01/2023 10/30/2024 1 1 [facility] Diagnostic Procedure Only (Routine) - Closed Specialty Diagnoses / Procedures Referred By Aurora key Referred To Contact XR IMAGING Diagnoses Chronic pain of left ankle Procedures XR ANKLE GENERAL 3V AP/LAT/OBL LEFT RADEX ANKLE COMPLETE MINIMUM 3 VIEWS Jaylin Combs PA-C [address] [place] [address] Phone: tel: fax: [place] [address] Referral ID Status Reason Start Date Expiration Date V isits Requested Visits Authorized [id number] Closed Auto-Generate d Referral 01/22/2025 02/21/2026 1 1 [facility] Summary Purpose Family History Relationship Condition Age at Onset Recorded Date/T esha Unknown Family History?No pertinent history Unkno wn October 16, 2020 5:32am Family History?No pertinent history Unkno wn October 16, 2020 5:32am Advance Directives Documents on File Type Date Recorded Patient [employer] Advance Directive(s) 12/10/2020 11:34 AM Advance Directive(s) 11/29/2020 4:53 PM Advance Directive(s) 04/02/2020 10:47 AM Advance Directive(s) 03/27/2020 11:49 AM [facility] Advance Directive(s) 12/05/2019 7:17 PM Advance Directive(s) 06/23/2019 10:04 AM Advance Directive(s) 06/07/2019 10:33 AM Advance Directive(s) 03/17/2016 1:11 PM Advance Directive(s) 01/28/2016 11:37 AM Advance Directive Response Recorded Date/ Time Living Will Yes October 16, 2020 6:33am Power of Tug Hand Yes October 16 6:33am Advance Directive Response Recorded Date/ Time Living Will Yes December 16, 2021 2 :44pm Power of Tug Hand Yes December 16, 2021 2:44pm Documents on File Type Date Recorded Patient [employer] Advance Directive(s) 12/10/2020 11:34 AM Advance Directive(s) 11/29/2020 4:53 PM Advance Directive(s) 04/02/2020 10:47 AM Advance Directive(s) 03/27/2020 11:49 AM [facility] Advance Directive(s) 12/05/2019 7:17 PM Advance Directive(s) 06/23/2019 10:04 AM Advance Directive(s) 06/07/2019 10:33 AM Advance Directive(s) 03/17/2016 1:11 PM Advance Directive(s) 01/28/2016 11:37 AM Documents on File Type Date Recorded Patient [employer] Advance Directive(s) 03/17/2016 1:11 PM Documents on File Type Date Recorded Patient [employer] Advance Directive(s) 03/17/2016 1:11 PM Date Activated Date Inactivated Comments 07/28/2024 4:53 PM Date Activated Date Inactivated Comments 07/28/2024 4:53 PM Advance Directive Response Recorded Date/ Time Do you have a Healthcare Power of Tug Hand? No February 12, 2025 3:47pm Chief Complaint [...] disease) Procedures CONSULT TO GENERAL SURGERY OFFICE/OUTPATIENT [facility] 60-74 MINUTES Scot Blank MD [address] [place] [address] Referral ID Status Reason Start Date Expiration Date Visits Requested Visits Authorized [id number] Authorized PCP Requested Referral 02/12/2022 02/12/2023 1 1 Specialty Diagnoses / Procedures Referred By Contac t Referred To [facility] Diagnoses Bilateral carotid artery stenosis Procedures US CAROTID ARTERIES [facility] DUPLEX SCAN EXTRACRANIAL ART COMPL BI STUDY Scot Blank MD [address] [place] [address] [facility] [place] [address] [place] [address] Referral ID Status Reason Start Date Expiration Date Visits Requested Visits Authorized [id number] Authorized Auto-Generat ed Referral 02/12/2022 02/12/2023 1 1 Specialty Diagnoses / Procedures Referred By Contac t Referred To Contact [facility] Diagnoses Primary osteoarthritis of right knee Procedures MRI KNEE WO IVCON RIGHT MRI ANY JT LOWER EXTREM W/O CONTRAST MATRL Rebekah Eduardo PA-C [address] [place] [address] Mr Imaging [id number] Referral ID Status Reason Start Date Expiration Date Visits Requested Visits Authorized [id number] Authorized Auto-Generat ed Referral 05/15/2024 06/14/2025 1 1 Specialty Diagnoses / Procedures Referred By Contac t Referred To Contact CT IMAGING Diagnoses Chronic pain of right knee Primary osteoarthritis of right knee Procedures CT KNEE WO IVCON RIGHT CT LOWER EXTREMITY W/O CONTRAST MATERIAL Bryson Dhillon MD [address] [place] [address] [place] [address] Referral ID Status Reason Start Date Expiration Date V isits Requested Visits Authorized [id number] Closed Auto-Generate d Referral 06/12/2024 07/12/2025 1 1 Specialty Diagnoses / Procedures Referred By Contac t Referred To Contact [facility] Diagnoses S/P total knee arthroplasty, right Procedures CONSULT TO PHYSICAL THERAPY PHYSICAL THERAPY EVALUATION HIGH COMPLEX 45 MINS Rebekah Eduardo PA-C [address] [place] [address] [facility] [place] [address] [place] [address] Referral ID Status Reason Start Date Expiration Date Visits Requested Visits Authorized [id number] Authorized PCP Requested Referral Auto-Generate d Referral 08/17/2024 08/17/2025 99 99 Additional Source Comments INFORMATION SOURCE (unrecogn ized section and content) DATE CREATED AUTHOR 01/04/2018 [facility] DATE CREATED AUTHOR AUTHOR'S ORGANIZ ATION [facility]/06/[facility] DATE CREATED AUTHOR AUTHOR'S ORGANIZ ATION 12/26/2022 [facility] DATE CREATED AUTHOR AUTHOR'S ORGANIZ ATION 08/09/2024 [facility] DATE CREATED AUTHOR AUTHOR'S ORGANIZ ATION 02/06/2025 [facility] Source Comments (unrecognize d section and content) In the event this informatio n is protected by the Federal Confidentiality of Alcohol and Drug Abuse Patient Records regulations: The Federal rules restrict any use of the information to criminally investigate or prosecute any alcohol or drug abuse patient.[facility] the event this information is protected by the Federal Confidentiality of Alcohol and Drug Abuse Patient Records regulations: The Federal rules restrict any use of the information to criminally investigate or prosecute any alcohol or drug abuse patient.[facility] the event this information is protected by the Federal Confidentiality of Alcohol and Drug Abuse Patient Records regulations: The Federal rules restrict any use of the information to criminally investigate or prosecute any alcohol or drug abuse patient.[facility] the event this information is protected by the Federal Confidentiality of Alcohol and Drug Abuse Patient Records regulations: The Federal rules restrict any use of the information to criminally investigate or prosecute any alcohol or drug abuse patient.[facility] the event this information is protected by the Federal Confidentiality of Alcohol and Drug Abuse Patient Records regulations: The Federal rules restrict any use of the information to criminally investigate or prosecute any alcohol or drug abuse patient.[facility] the event this information is protected by the Federal Confidentiality of Alcohol and Drug Abuse Patient Records regulations: The Federal rules restrict any use of the information to criminally investigate or prosecute any alcohol or drug abuse patient.[facility] the event this information is protected by the Federal Confidentiality of Alcohol and Drug Abuse Patient Records regulations: The Federal rules restrict any use of the information to criminally investigate or prosecute any alcohol or drug abuse patient.[facility] the event this information is protected by the Federal Confidentiality of Alcohol and Drug Abuse Patient Records regulations: The Federal rules restrict any use of the information to criminally investigate or prosecute any alcohol or drug abuse patient.[facility] the event this information is protected by the Federal Confidentiality of Alcohol and Drug Abuse Patient Records regulations: The Federal rules restrict any use of the information to criminally investigate or prosecute any alcohol or drug abuse patient.[facility] the event this information is protected by the Federal Confidentiality of Alcohol and Drug Abuse Patient Records regulations: The Federal rules restrict any use of the information to criminally investigate or prosecute any alcohol or drug abuse patient.[facility] the event this information is protected by the Federal Confidentiality of Alcohol and Drug Abuse Patient Records regulations: The Federal rules restrict any use of the information to criminally investigate or prosecute any alcohol or drug abuse patient.[facility] the event this information is protected by the Federal Confidentiality of Alcohol and Drug Abuse Patient Records regulations: The Federal rules restrict any use of the information to criminally investigate or prosecute any alcohol or drug abuse patient.[facility] the event this information is protected by the Federal Confidentiality of Alcohol and Drug Abuse Patient Records regulations: The Federal rules restrict any use of the information to criminally investigate or prosecute any alcohol or drug abuse patient.[facility] the event this information is protected by the Federal Confidentiality of Alcohol and Drug Abuse Patient Records regulations: The Federal rules restrict any use of the information to criminally investigate or prosecute any alcohol or drug abuse patient.[facility] the event this information is protected by the Federal Confidentiality of Alcohol and Drug Abuse Patient Records regulations: The Federal rules restrict any use of the information to criminally investigate or prosecute any alcohol or drug abuse patient.[facility] the event this information is protected by the Federal Confidentiality of Alcohol and Drug Abuse Patient Records regulations: The Federal rules restrict any use of the information to criminally investigate or prosecute any alcohol or drug abuse patient.[facility] the event this information is protected by the Federal Confidentiality of Alcohol and Drug Abuse Patient Records regulations: The Federal rules restrict any use of the information to criminally investigate or prosecute any alcohol or drug abuse patient.[facility]In the event this information is protected by the Federal Confidentiality of Alcohol and Drug Abuse Patient Records regulations: The Federal rules restrict any use of the information to criminally investigate or prosecute any alcohol or drug abuse patient.[facility] the event this information is protected by the Federal Confidentiality of Alcohol and Drug Abuse Patient Records regulations: The Federal rules restrict any use of the information to criminally investigate or prosecute any alcohol or drug abuse patient.[facility] the event this information is protected by the Federal Confidentiality of Alcohol and Drug Abuse Patient Records regulations: The Federal rules restrict any use of the information to criminally investigate or prosecute any alcohol or drug abuse patient.[facility] the event this information is protected by the Federal Confidentiality of Alcohol and Drug Abuse Patient Records regulations: The Federal rules restrict any use of the information to criminally investigate or prosecute any alcohol or drug abuse patient.[facility] the event this information is protected by the Federal Confidentiality of Alcohol and Drug Abuse Patient Records regulations: The Federal rules restrict any use of the information to criminally investigate or prosecute any alcohol or drug abuse patient.[facility] the event this information is protected by the Federal Confidentiality of Alcohol and Drug Abuse Patient Records regulations: The Federal rules restrict any use of the information to criminally investigate or prosecute any alcohol or drug abuse patient.[facility] the event this information is protected by the Federal Confidentiality of Alcohol and Drug Abuse Patient Records regulations: The Federal rules restrict any use of the information to criminally investigate or prosecute any alcohol or drug abuse patient.[facility] the event this information is protected by the Federal Confidentiality of Alcohol and Drug Abuse Patient Records regulations: The Federal rules restrict any use of the information to criminally investigate or prosecute any alcohol or drug abuse patient.[facility] the event this information is protected by the Federal Confidentiality of Alcohol and Drug Abuse Patient Records regulations: The Federal rules restrict any use of the information to criminally investigate or prosecute any alcohol or drug abuse patient.[facility]In the event this information is protected by the Federal Confidentiality of Alcohol and Drug Abuse Patient Records regulations: The Federal rules restrict any use of the information to criminally investigate or prosecute any alcohol or drug abuse patient.[facility]In the event this information is protected by the Federal Confidentiality of Alcohol and Drug Abuse Patient Records regulations: The Federal rules restrict any use of the information to criminally investigate or prosecute any alcohol or drug abuse patient.[facility]In the event this information is protected by the Federal Confidentiality of Alcohol and Drug Abuse Patient Records regulations: The Federal rules restrict any use of the information to criminally investigate or prosecute any alcohol or drug abuse patient.[facility]In the event this information is protected by the Federal Confidentiality of Alcohol and Drug Abuse Patient Records regulations: The Federal rules restrict any use of the information to criminally investigate or prosecute any alcohol or drug abuse patient.[facility]In the event this information is protected by the Federal Confidentiality of Alcohol and Drug Abuse Patient Records regulations: The Federal rules restrict any use of the information to criminally investigate or prosecute any alcohol or drug abuse patient.[facility]In the event this information is protected by the Federal Confidentiality of Alcohol and Drug Abuse Patient Records regulations: The Federal rules restrict any use of the information to criminally investigate or prosecute any alcohol or drug abuse patient.[facility]In the event this information is protected by the Federal Confidentiality of Alcohol and Drug Abuse Patient Records regulations: The Federal rules restrict any use of the information to criminally investigate or prosecute any alcohol or drug abuse patient.[facility]In the event this information is protected by the Federal Confidentiality of Alcohol and Drug Abuse Patient Records regulations: The Federal rules restrict any use of the information to criminally investigate or prosecute any alcohol or drug abuse patient.[facility]In the event this information is protected by the Federal Confidentiality of Alcohol and Drug Abuse Patient Records regulations: The Federal rules restrict any use of the information to criminally investigate or prosecute any alcohol or drug abuse patient.[facility]In the event this information is protected by the Federal Confidentiality of Alcohol and Drug Abuse Patient Records regulations: The Federal rules restrict any use of the information to criminally investigate or prosecute any alcohol or drug abuse patient.[facility]In the event this information is protected by the Federal Confidentiality of Alcohol and Drug Abuse Patient Records regulations: The Federal rules restrict any use of the information to criminally investigate or prosecute any alcohol or drug abuse patient.[facility]In the event this information is protected by the Federal Confidentiality of Alcohol and Drug Abuse Patient Records regulations: The Federal rules restrict any use of the information to criminally investigate or prosecute any alcohol or drug abuse patient.[facility]In the event this information is protected by the Federal Confidentiality of Alcohol and Drug Abuse Patient Records regulations: The Federal rules restrict any use of the information to criminally investigate or prosecute any alcohol or drug abuse patient.[facility]In the event this information is protected by the Federal Confidentiality of Alcohol and Drug Abuse Patient Records regulations: The Federal rules restrict any use of the information to criminally investigate or prosecute any alcohol or drug abuse patient.[facility]In the event this information is protected by the Federal Confidentiality of Alcohol and Drug Abuse Patient Records regulations: The Federal rules restrict any use of the information to criminally investigate or prosecute any alcohol or drug abuse patient.[facility]In the event this information is protected by the Federal Confidentiality of Alcohol and Drug Abuse Patient Records regulations: The Federal rules restrict any use of the information to criminally investigate or prosecute any alcohol or drug abuse patient.[facility]In the event this information is protected by the Federal Confidentiality of Alcohol and Drug Abuse Patient Records regulations: The Federal rules restrict any use of the information to criminally investigate or prosecute any alcohol or drug abuse patient.[facility]In the event this information is protected by the Federal Confidentiality of Alcohol and Drug Abuse Patient Records regulations: The Federal rules restrict any use of the information to criminally investigate or prosecute any alcohol or drug abuse patient.[facility]In the event this information is protected by the Federal Confidentiality of Alcohol and Drug Abuse Patient Records regulations: The Federal rules restrict any use of the information to criminally investigate or prosecute any alcohol or drug abuse patient.[facility]In the event this information is protected by the Federal Confidentiality of Alcohol and Drug Abuse Patient Records regulations: The Federal rules restrict any use of the information to criminally investigate or prosecute any alcohol or drug abuse patient.[facility] the event this information is protected by the Federal Confidentiality of Alcohol and Drug Abuse Patient Records regulations: The Federal rules restrict any use of the information to criminally investigate or prosecute any alcohol or drug abuse patient.[facility]In the event this information is protected by the Federal Confidentiality of Alcohol and Drug Abuse Patient Records regulations: The Federal rules restrict any use of the information to criminally investigate or prosecute any alcohol or drug abuse patient.[facility]In the event this information is protected [...] or prosecute any alcohol or drug abuse patient.[facility]In the event this information is protected by the Federal Confidentiality of Alcohol and Drug Abuse Patient Records regulations: The Federal rules restrict any use of the information to criminally investigate or prosecute any alcohol or drug abuse patient.[facility]In the event this information is protected by the Federal Confidentiality of Alcohol and Drug Abuse Patient Records regulations: The Federal rules restrict any use of the information to criminally investigate or prosecute any alcohol or drug abuse patient.[facility]In the event this information is protected by the Federal Confidentiality of Alcohol and Drug Abuse Patient Records regulations: The Federal rules restrict any use of the information to criminally investigate or prosecute any alcohol or drug abuse patient.[facility]In the event this information is protected by the Federal Confidentiality of Alcohol and Drug Abuse Patient Records regulations: The Federal rules restrict any use of the information to criminally investigate or prosecute any alcohol or drug abuse patient.[facility]In the event this information is protected by the Federal Confidentiality of Alcohol and Drug Abuse Patient Records regulations: The Federal rules restrict any use of the information to criminally investigate or prosecute any alcohol or drug abuse patient.[facility]In the event this information is protected by the Federal Confidentiality of Alcohol and Drug Abuse Patient Records regulations: The Federal rules restrict any use of the information to criminally investigate or prosecute any alcohol or drug abuse patient.[facility]In the event this information is protected by the Federal Confidentiality of Alcohol and Drug Abuse Patient Records regulations: The Federal rules restrict any use of the information to criminally investigate or prosecute any alcohol or drug abuse patient.[facility]In the event this information is protected by the Federal Confidentiality of Alcohol and Drug Abuse Patient Records regulations: The Federal rules restrict any use of the information to criminally investigate or prosecute any alcohol or drug abuse patient.[facility]In the event this information is protected by the Federal Confidentiality of Alcohol and Drug Abuse Patient Records regulations: The Federal rules restrict any use of the information to criminally investigate or prosecute any alcohol or drug abuse patient.[facility]In the event this information is protected by the Federal Confidentiality of Alcohol and Drug Abuse Patient Records regulations: The Federal rules restrict any use of the information to criminally investigate or prosecute any alcohol or drug abuse patient.[facility]In the event this information is protected by the Federal Confidentiality of Alcohol and Drug Abuse Patient Records regulations: The Federal rules restrict any use of the information to criminally investigate or prosecute any alcohol or drug abuse patient.[facility]In the event this information is protected by the Federal Confidentiality of Alcohol and Drug Abuse Patient Records regulations: The Federal rules restrict any use of the information to criminally investigate or prosecute any alcohol or drug abuse patient.[facility]In the event this information is protected by the Federal Confidentiality of Alcohol and Drug Abuse Patient Records regulations: The Federal rules restrict any use of the information to criminally investigate or prosecute any alcohol or drug abuse patient.[facility]In the event this information is protected by the Federal Confidentiality of Alcohol and Drug Abuse Patient Records regulations: The Federal rules restrict any use of the information to criminally investigate or prosecute any alcohol or drug abuse patient.[facility] [facility] HospitalIn the event this information is protected by the Federal Confidentiality of Alcohol and Drug Abuse Patient Records regulations: The Federal rules restrict any use of the information to criminally investigate or prosecute any alcohol or drug abuse patient.[facility] HospitalIn the event this information is protected by the Federal Confidentiality of Alcohol and Drug Abuse Patient Records regulations: The Federal rules restrict any use of the information to criminally investigate or prosecute any alcohol or drug abuse patient.[facility] HospitalIn the event this information is protected by the Federal Confidentiality of Alcohol and Drug Abuse Patient Records regulations: The Federal rules restrict any use of the information to criminally investigate or prosecute any alcohol or drug abuse patient.[facility] HospitalIn the event this information is protected by the Federal Confidentiality of Alcohol and Drug Abuse Patient Records regulations: The Federal rules restrict any use of the information to criminally investigate or prosecute any alcohol or drug abuse patient.[facility] HospitalIn the event this information is protected by the Federal Confidentiality of Alcohol and Drug Abuse Patient Records regulations: The Federal rules restrict any use of the information to criminally investigate or prosecute any alcohol or drug abuse patient.[facility] HospitalIn the event this information is protected by the Federal Confidentiality of Alcohol and Drug Abuse Patient Records regulations: The Federal rules restrict any use of the information to criminally investigate or prosecute any alcohol or drug abuse patient.[facility] HospitalIn the event this information is protected by the Federal Confidentiality of Alcohol and Drug Abuse Patient Records regulations: The Federal rules restrict any use of the information to criminally investigate or prosecute any alcohol or drug abuse patient.[facility] HospitalIn the event this information is protected by the Federal Confidentiality of Alcohol and Drug Abuse Patient Records regulations: The Federal rules restrict any use of the information to criminally investigate or prosecute any alcohol or drug abuse patient.[facility] HospitalIn the event this information is protected by the Federal Confidentiality of Alcohol and Drug Abuse Patient Records regulations: The Federal rules restrict any use of the information to criminally investigate or prosecute any alcohol or drug abuse patient.[facility] HospitalIn the event this information is protected by the Federal Confidentiality of Alcohol and Drug Abuse Patient Records regulations: The Federal rules restrict any use of the information to criminally investigate or prosecute any alcohol or drug abuse patient.[facility] HospitalIn the event this information is protected by the Federal Confidentiality of Alcohol and Drug Abuse Patient Records regulations: The Federal rules restrict any use of the information to criminally investigate or prosecute any alcohol or drug abuse patient.[facility] HospitalIn the event this information is protected by the Federal Confidentiality of Alcohol and Drug Abuse Patient Records regulations: The Federal rules restrict any use of the information to criminally investigate or prosecute any alcohol or drug abuse patient.[facility] HospitalIn the event this information is protected by the Federal Confidentiality of Alcohol and Drug Abuse Patient Records regulations: The Federal rules restrict any use of the information to criminally investigate or prosecute any alcohol or drug abuse patient.[facility] HospitalIn the event this information is protected by the Federal Confidentiality of Alcohol and Drug Abuse Patient Records regulations: The Federal rules restrict any use of the information to criminally investigate or prosecute any alcohol or drug abuse patient.[facility] HospitalIn the event this information is protected by the Federal Confidentiality of Alcohol and Drug Abuse Patient Records regulations: The Federal rules restrict any use of the information to criminally investigate or prosecute any alcohol or drug abuse patient.[facility] HospitalIn the event this information is protected by the Federal Confidentiality of Alcohol and Drug Abuse Patient Records regulations: The Federal rules restrict any use of the information to criminally investigate or prosecute any alcohol or drug abuse patient.[facility] HospitalIn the event this information is protected by the Federal Confidentiality of Alcohol and Drug Abuse Patient Records regulations: The Federal rules restrict any use of the information to criminally investigate or prosecute any alcohol or drug abuse patient.[facility] HospitalIn the event this information is protected by the Federal Confidentiality of Alcohol and Drug Abuse Patient Records regulations: The Federal rules restrict any use of the information to criminally investigate or prosecute any alcohol or drug abuse patient.[facility] HospitalIn the event this information is protected by the Federal Confidentiality of Alcohol and Drug Abuse Patient Records regulations: The Federal rules restrict any use of the information to criminally investigate or prosecute any alcohol or drug abuse patient.[facility] HospitalIn the event this information is protected by the Federal Confidentiality of Alcohol and Drug Abuse Patient Records regulations: The Federal rules restrict any use of the information to criminally investigate or prosecute any alcohol or drug abuse patient.[facility] HospitalIn the event this information is protected by the Federal Confidentiality of Alcohol and Drug Abuse Patient Records regulations: The Federal rules restrict any use of the information to criminally investigate or prosecute any alcohol or drug abuse patient.[facility] HospitalIn the event this information is protected by the Federal Confidentiality of Alcohol and Drug Abuse Patient Records regulations: The Federal rules restrict any use of the information to criminally investigate or prosecute any alcohol or drug abuse patient.[facility] HospitalIn the event this information is protected by the Federal Confidentiality of Alcohol and Drug Abuse Patient Records regulations: The Federal rules restrict any use of the information to criminally investigate or prosecute any alcohol or drug abuse patient.[facility] HospitalIn the event this information is protected by the Federal Confidentiality of Alcohol and Drug Abuse Patient Records regulations: The Federal rules restrict any use of the information to criminally investigate or prosecute any alcohol or drug abuse patient.[facility] HospitalIn the event this information is protected by the Federal Confidentiality of Alcohol and Drug Abuse Patient Records regulations: The Federal rules restrict any use of the information to criminally investigate or prosecute any alcohol or drug abuse patient.[facility] HospitalIn the event this information is protected by the Federal Confidentiality of Alcohol and Drug Abuse Patient Records regulations: The Federal rules restrict any use of the information to criminally investigate or prosecute any alcohol or drug abuse patient.[facility] HospitalIn the event this information is protected by the Federal Confidentiality of Alcohol and Drug Abuse Patient Records regulations: The Federal rules restrict any use of the information to criminally investigate or prosecute any alcohol or drug abuse patient.[facility] HospitalIn the event this information is protected by the Federal Confidentiality of Alcohol and Drug Abuse Patient Records regulations: The Federal rules restrict any use of the information to criminally investigate or prosecute any alcohol or drug abuse patient.[facility] HospitalIn the event this information is protected by the Federal Confidentiality of Alcohol and Drug Abuse Patient Records regulations: The Federal rules restrict any use of the information to criminally investigate or prosecute any alcohol or drug abuse patient.[facility] HospitalIn the event this information is protected by the Federal Confidentiality of Alcohol and Drug Abuse Patient Records regulations: The Federal rules restrict any use of the information to criminally investigate or prosecute any alcohol or drug abuse patient.[facility] HospitalIn the event this information is protected by the Federal Confidentiality of Alcohol and Drug Abuse Patient Records regulations: The Federal rules restrict any use of the information to criminally investigate or prosecute any alcohol or drug abuse patient.[facility] HospitalIn the event this information is protected by the Federal Confidentiality of Alcohol and Drug Abuse Patient Records regulations: The Federal rules restrict any use of the information to criminally investigate or prosecute any alcohol or drug abuse patient.[facility] the event this information is protected by the Federal Confidentiality of Alcohol and Drug Abuse Patient Records regulations: The Federal rules restrict any use of the information to criminally investigate or prosecute any alcohol or drug abuse patient.[facility] HospitalIn the event this information is protected by the Federal Confidentiality of Alcohol and Drug Abuse Patient Records regulations: The Federal rules restrict any use of the information to criminally investigate or prosecute any alcohol or drug abuse patient.[facility] HospitalIn the event this information is protected [...] or prosecute any alcohol or drug abuse patient.[facility] HospitalIn the event this information is protected by the Federal Confidentiality of Alcohol and Drug Abuse Patient Records regulations: The Federal rules restrict any use of the information to criminally investigate or prosecute any alcohol or drug abuse patient.[facility] HospitalIn the event this information is protected by the Federal Confidentiality of Alcohol and Drug Abuse Patient Records regulations: The Federal rules restrict any use of the information to criminally investigate or prosecute any alcohol or drug abuse patient.[facility] HospitalIn the event this information is protected by the Federal Confidentiality of Alcohol and Drug Abuse Patient Records regulations: The Federal rules restrict any use of the information to criminally investigate or prosecute any alcohol or drug abuse patient.[facility] HospitalIn the event this information is protected by the Federal Confidentiality of Alcohol and Drug Abuse Patient Records regulations: The Federal rules restrict any use of the information to criminally investigate or prosecute any alcohol or drug abuse patient.[facility] HospitalIn the event this information is protected by the Federal Confidentiality of Alcohol and Drug Abuse Patient Records regulations: The Federal rules restrict any use of the information to criminally investigate or prosecute any alcohol or drug abuse patient.[facility] Reason for Visit (unrecogniz ed section and content) Reason Comments PT Discharge Specialty Diagnoses / Procedures Referred By Contac t Referred To Contact Physical Therapy / PHYSICAL THERAPY Diagnoses RT TKR [facility] DC 08/10 Procedures NEW RS PT TOTAL JOINT Bryson Dhillon MD [address] [place] [address] Phone: tel: fax: Xander Wu PT [address] [place] [address] Phone: tel: Referral ID Status Reason Start Date Expiration Date V isits Requested Visits Authorized [id number] Authorized 07/12/2024 07/11/2025 99 99 Reason Comments [...] DETERMINATION Lorenza Reza MD [address] [place] [address] [facility] [place] [address] Referral ID Status Reason Start Date Expiration Date V isits Requested Visits Authorized [id number] Closed Auto-Generate d Referral 02/15/2024 03/16/2025 1 1 Specialty Diagnoses / Procedures Referred By Contac t Referred To Contact [facility] Diagnoses Chronic obstructive pulmonary disease, unspecified COPD type (HCC) Procedures SPIROMETRY WITH DILATOR IF OBSTRUCTED BRNCDILAT RSPSE SPMTRY PRE&POST-BRNCDILAT ADMN Lorenza Reza MD [address] [place] [address] [facility] [address] [place] [address] Referral ID Status Reason Start Date Expiration Date V isits Requested Visits Authorized [id number] Closed Auto-Generate d Referral 02/15/2024 03/16/2025 1 1 Reason Comments Consult Reason Comments Established Patient Follow Up Knee Pain Reason Comments New Patient Specialty Diagnoses / Procedures Referred By Contac t Referred To Contact Vascular Medicine 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 Procedures CONSULT TO VASCULAR MEDICINE OFFICE/OUTPATIENT NEW HIGH MDM 60 MINUTES Jaylin Combs PA-C [address] [place] [address] Referral ID Status Reason Start Date Expiration Date V isits Requested Visits Authorized [id number] Closed PCP Requested Referral 03/24/2024 03/24/2025 1 1 Reason Onset Date Comments Refill Request 04/26/2024 Reason Comments Established Patient Follow Up Specialty Diagnoses / Procedures Referred By Contac t Referred To Contact MR IMAGING Diagnoses Primary osteoarthritis of right knee Procedures MRI KNEE WO IVCON RIGHT MRI ANY JT LOWER EXTREM W/O CONTRAST TERRYL Rebekah Eduardo PA-C [address] [place] [address] [place] [id number] Referral ID Status Reason Start Date Expiration Date V isits Requested Visits Authorized [id number] Closed Auto-Generate d Referral 05/15/2024 06/14/2025 1 [...] MATERIAL Bryson Dhillon MD [address] [place] [address] [place] [address] Referral ID Status Reason Start Date Expiration Date V isits Requested Visits Authorized [id number] Closed Auto-Generate d Referral 06/12/2024 07/12/2025 1 1 Reason Comments Surgical Clearance Scheduled for Rt leny otic-assisted TKA on 07/26/2024 Specialty Diagnoses / Procedures Referred By Contac t Referred To Contact [facility] Diagnoses Pre-operative examination Procedures ECG COMPLETE ECG ROUTINE ECG W/LEAST 12 LDS W/I&R Yari Rincon, ADVERTISING [employer].MEDICAL ENGINEER [address] [place] [address] [facility] [place] [address] [place] [address] Referral ID Status Reason Start Date Expiration Date V isits Requested Visits Authorized [id number] Closed Auto-Generate d Referral 06/30/2024 06/30/2025 1 [...] Care Teams (unrecognized sec tion and content) Paleologist Relationship Specialty Start Date End Date Scot Blank MD [address] [place] [address] PCP - General Family Practice 12/06/15 Paleologist Relationship Specialty Start Date End Date Scot Blank MD [address] [place] [address] PCP - General Family Practice 12/06/15 Paleologist Relationship Specialty Start Date End Date Scot Blank MD [address] [place] [address] PCP - General Family Practice 12/06/15 Paleologist Relationship Specialty Start Date End Date Scot Blank MD [address] [place] [address] PCP - General Family Practice 12/06/15 Paleologist Relationship Specialty Start Date End Date Scot Blank MD [address] [place] [address] PCP - General Family Medicine 12/06/15 Paleologist Relationship Specialty Start Date End Date Scot Blank MD [address] [facility] [place] [address] PCP - General Family Medicine 12/06/15 Paleologist Relationship Specialty Start Date End Date Scot Blank MD [address] [facility] [place] [address] PCP - General Family Medicine 12/06/15 Paleologist Relationship Specialty Start Date End Date Scot Blank MD [facility] [place] [address] PCP - General Family Medicine 12/06/15 Paleologist Relationship Specialty Start Date End Date Scot Blank MD [address] [place] [address], [place] [address] PCP - General Family Medicine 12/06/15 Paleologist Relationship Specialty Start Date End Date Scot Blank MD [facility] [place] [address] PCP - General Family Medicine 12/06/15 Paleologist Relationship Specialty Start Date End Date Scot Blank MD [facility] [place] [address] PCP - General Family Medicine 12/06/15 Paleologist Relationship Specialty Start Date End Date Scot Blank MD [facility] [place] [address] PCP - General Family Medicine 12/06/15 Paleologist Relationship Specialty Start Date End Date Scot Blank MD [facility] [place] [address] PCP - General Family Medicine 12/06/15 Paleologist Relationship Specialty Start Date End Date Scot Blank MD [facility] [place] [address] PCP - General Family Medicine 12/06/15 Paleologist Relationship Specialty Start Date End Date Scot Blank MD [address] [place] [address] PCP - General Family Medicine 12/06/15 Team Status: Active Member Role Status Dates Dr. Scot Blank MD Family Provider Active Dr. Scot Blank MD Primary Care Provider Active Team Status: Inactive Member Role Status Dates Dr. Scot Blank MD Primary Care Provider Active Dr. Gina Gibson DPM Attending Provider, Referring Provider Active Paleologist Relationship Specialty Start Date End Date Scot Blank MD [address] [place] [address] PCP - General Family Medicine 12/06/15 Paleologist Relationship Specialty Start Date End Date Scot Blank MD [address] [place] [address] PCP - General Family Medicine 12/06/15 Paleologist Relationship Specialty Start Date End Date Scot Blank MD [address] [place] [address] PCP - General Family Medicine 12/06/15 Paleologist Relationship Specialty Start Date End Date Scot Blank MD [address] [place] [address] PCP - General Family Medicine 12/06/15 Paleologist Relationship Specialty Start Date End Date Scot Blank MD [address] [place] [address] PCP - General Family Medicine 12/06/15 Paleologist Relationship Specialty Start Date End Date Scot Blank MD [address] [place] [address] PCP - General Family Medicine 12/06/15 Paleologist Relationship Specialty Start Date End Date Scot Blank MD [address] [place] [address] PCP - General Family Medicine 12/06/15 Paleologist Relationship Specialty Start Date End Date Scot Blank MD [address] [place] [address] PCP - General Family Medicine 12/06/15 Paleologist Relationship Specialty Start Date End Date Scot Blank MD [address] [place] [address] PCP - General Family Medicine 12/06/15 Paleologist Relationship Specialty Start Date End Date Scot Blank MD [address] [place] [address] PCP - General Family Medicine 12/06/15 Paleologist Relationship Specialty Start Date End Date Scot Blank MD [address] [place] [address] PCP - General Family Medicine 12/06/15 Paleologist Relationship Specialty Start Date End Date Scot Blank MD [address] [place] [address] PCP - General Family Medicine 12/06/15 Paleologist Relationship Specialty Start Date End Date Scot Blank MD [address] [place] [address] PCP - General Family Medicine 12/06/15 Paleologist Relationship Specialty Start Date End Date Scot Blank MD [address] [place] [address] PCP - General Family Medicine 12/06/15 Paleologist Relationship Specialty Start Date End Date Scot Blank MD [address] [place] [address] PCP - General Family Medicine 12/06/15 Paleologist Relationship Specialty Start Date End Date Scot Blank MD [address] [place] [address] PCP - General Family Medicine 12/06/15 Paleologist Relationship Specialty Start Date End Date Scot Blank MD [address] [place] [address] PCP - General Family Medicine 12/06/15 Paleologist Relationship Specialty Start Date End Date Scot Blank MD [address] [place] [address] PCP - General Family Medicine 12/06/15 Paleologist Relationship Specialty Start Date End Date Scot Blank MD [address] [place] [address] PCP - General Family Medicine 12/06/15 Paleologist Relationship Specialty Start Date End Date Scot Blank MD [address] [place] [address] PCP - General Family Medicine 12/06/15 Paleologist Relationship Specialty Start Date End Date Scot Blank MD [address] [place] [address] PCP - General Family Medicine 12/06/15 Paleologist Relationship Specialty Start Date End Date Scot Blank MD [address] [place] [address] PCP - General Family Medicine 12/06/15 Paleologist Relationship Specialty Start Date End Date Scot Blank MD [address] [place] [address] PCP - General Family Medicine 12/06/15 Paleologist Relationship Specialty Start Date End Date Scot Blank MD [address] [place] [address] PCP - General Family Medicine 12/06/15 Paleologist Relationship Specialty Start Date End Date Scot Blank MD [address] [place] [address] PCP - General Family Medicine 12/06/15 Paleologist Relationship Specialty Start Date End Date Scot Blank MD [address] [place] [address] PCP - General Family Medicine 12/06/15 Paleologist Relationship Specialty Start Date End Date Scot Blank MD [address] [place] [address] PCP - General Family Medicine 12/06/15 Paleologist Relationship Specialty Start Date End Date Scot Blank MD [address] [place] [address] PCP - General Family Medicine 12/06/15 Paleologist Relationship Specialty Start Date End Date Scot Blank MD [address] [place] [address] PCP - General Family Medicine 12/06/15 Paleologist Relationship Specialty Start Date End Date Scot Blank MD [address] [place] [address] PCP - General Family Medicine 12/06/15 Paleologist Relationship Specialty Start Date End Date Scot Blank MD [address] [place] [address] PCP - General Family Medicine 12/06/15 Jefferson Wang, [facility] [address] [place] [address] Specialty Business Banking Sales Assistant Orthopedics 06/14/24 08/31/24 Paleologist Relationship Specialty Start Date End Date Scot Blank MD [address] [place] [address] PCP - General Family Medicine 12/06/15 Jefferson Wang, [facility] [address] [place] [address] Specialty Business Banking Sales Assistant Orthopedics 06/14/24 08/31/24 Paleologist Relationship Specialty Start Date End Date Scot Blank MD [address] [place] [address] PCP - General Family Medicine 12/06/15 Jefferson Wang, [facility] [address] [place] [address] Specialty Business Banking Sales Assistant Orthopedics 06/14/24 08/31/24 Quin Costa APRN.CNP [address] [place] [address] Structural Steel Trades Worker Family Medicine 06/17/24 Jaylin Combs PA-C [facility] [place] [address] Structural Steel Trades Worker Family Medicine 06/17/24 Paleologist Relationship Specialty Start Date End Date Scot Blank MD [address] [place] [address] PCP - General Family Medicine 12/06/15 Jefferson Wang, [facility] [address] [place] [address] Specialty Business Banking Sales Assistant Orthopedics 06/14/24 08/31/24 Quin Costa APRN.MEDICAL ENGINEER [address] [place] [address] Structural Steel Trades Worker Family Medicine 06/17/24 Jaylin Combs PA-C [address] [place] [address] Structural Steel Trades Worker Family Medicine 06/17/24 Paleologist Relationship Specialty Start Date End Date Scot Blank MD [address] [place] [address] PCP - General Family Medicine 12/06/15 Jefferson Wang, [facility] [address] [place] [address] Specialty Business Banking Sales Assistant Orthopedics 06/14/24 08/31/24 Quin Costa APRN.MEDICAL ENGINEER [address] [place] [address] Structural Steel Trades Worker Family Medicine 06/17/24 Jaylin Combs PA-C [address] [place] [address] Structural Steel Trades Worker Family Medicine 06/17/24 Paleologist Relationship Specialty Start Date End Date Scot Blank MD [address] [place] [address] PCP - General Family Medicine 12/06/15 Jefferson Wang, [facility] [address] [place] [address] Specialty Business Banking Sales Assistant Orthopedics 06/14/24 08/31/24 Quin Costa APRN.MEDICAL ENGINEER [address] [place], [place] [id number] [employer] Work[employer] Family Medicine 06/17/24 Jaylin Combs PA-C [address] [place] [address] [employer] Family [facility] 06/17/24 Paleologist Relationship Specialty Start Date End Date Scot Blank MD [address] [place] [address] PCP - General Family Medicine 12/06/15 Jefferson Wang, [facility] [address] [place] [address] Specialty Business Banking Sales Assistant Orthopedics 06/14/24 08/31/24 Quin Costa APRN.MEDICAL ENGINEER [address] [place] [address] [employer] Family Medicine 06/17/24 Jaylin Combs PA-C [address] [place] [address] [employer] Worker Family [facility] 06/17/24 Paleologist Relationship Specialty Start Date End Date Scot Blank MD [address] [place] [address] PCP - General Family Medicine 12/06/15 Paleologist Relationship Specialty Start Date End Date Scot Blank MD [address] [place] [address] PCP - General Family Medicine 12/06/15 Jefferson Wang, [facility] [address] [place] [address] Specialty Business Banking Sales Assistant Orthopedics 06/14/24 08/31/24 Quin Costa APRN.MEDICAL ENGINEER [address] [place] [address] [employer] Worker [facility] 06/17/24 Jaylin Combs PA-C [address] [place] [address] [employer] [facility] 06/17/24 Paleologist Relationship Specialty Start Date End Date Scot Blank MD [address] [place] [address] PCP - General Family Medicine 12/06/15 Jefferson Wang, [facility] [address] [place] [address] Specialty Business Banking Sales Assistant Orthopedics 06/14/24 08/31/24 Quin Costa APRN.MEDICAL ENGINEER [address] [place] [address] [facility] 06/17/24 Jaylin Combs PA-C [address] [place] [address] [facility] 06/17/24 Jazzy Pereira, PT [address] [place] [address] Practicing Urologist Post Acute Care 07/27/24 Paleologist Relationship Specialty Start Date End Date Scot Blank MD [address] [place] [address] PCP - General Family Medicine 12/06/15 Jefferson Wang, [facility] [address] [place] [address] Specialty Business Banking Sales Assistant Orthopedics 06/14/24 08/31/24 Quin Costa APRN.MEDICAL ENGINEER [address] [place] [address] [employer] Worker Family [facility] 06/17/24 Jaylin Combs PA-C [address] [place], [place] 047966 [phone] [employer] Worker Family [facility] 06/17/24 Jazzy Pereira, PT [address] [place] [address] Practicing Urologist Post Acute Care 07/27/24 Bryson Dhillon MD [address] [place], [place] 103391 Home Care Provider Orthopedics 07/28/24 Gina Samayoa PA-C [address] [place], [place] [phone] Referring Orthopedics 07/28/24 Paleologist Relationship Specialty Start Date End Date Scot Blank MD [address] [place] [address] PCP - General Family Medicine 12/06/[address] [facility] [address] [place] [address] Specialty Business Banking Sales Assistant Orthopedics 06/14/24 08/31/24 Quin Costa APRN.MEDICAL ENGINEER [address] [place], [place] 615268 [phone] [employer] [facility] 06/17/24 Jaylin Combs PA-C [address] [place] [address] [employer] Worker Family [facility] 06/17/24 Jazzy Pereira, PT [address] [place] [address] Practicing Urologist Post Acute Care 07/27/24 Bryson Dhillon MD [address] [place] [address] Home Care Provider Orthopedics 07/28/24 Gina Samayoa PA-C [address] [place] [address] Referring Orthopedics 07/28/24 Paleologist Relationship Specialty Start Date End Date Scot Blank MD [address] [place] [address] 601781 PCP - General Family Medicine 12/06/[address] [facility] [address] [place] [address] Specialty Business Banking Sales Assistant Orthopedics 06/14/24 08/31/24 Quin Costa APRN.MEDICAL ENGINEER [address] [place] [address] [phone] [employer] Worker Family [facility] 06/17/24 Jaylin Combs PA-C [address] [place] [address] [phone] [employer] Worker Family [facility] 06/17/24 Jazzy Pereira, PT [address] [place], [place] [phone] Practicing Urologist Post Acute Care 07/27/24 Bryson Dhillon MD [address] [place] [address] Home Care Provider Orthopedics 07/28/24 Gina Samayoa PA-C [address] [place] [address] Referring Orthopedics 07/28/24 Paleologist Relationship Specialty Start Date End Date Scot Blank MD [address] [place] [address] PCP - General Family Medicine 12/06/15 Jefferson Wang, [facility] [address] [place] [address] Specialty Business Banking Sales Assistant Orthopedics 06/14/24 08/31/24 Quin Costa APRN.MEDICAL ENGINEER [address] [place] [address] [employer] Worker Family [facility] 06/17/24 Jaylin Combs PA-C [address] [place] [address] [employer] Worker [facility] 06/17/24 Jazzy Pereira, PT [address] [place] [address] Practicing Urologist Post Acute Care 07/27/24 Bryson Dhillon MD [address] [place] [address] Home Care Provider Orthopedics 07/28/24 Gina Samayoa PA-C [address] [place] [address] Referring Orthopedics 07/28/24 Paleologist Relationship Specialty Start Date End Date Scot Blank MD [facility] [place] [address] PCP - General Family Medicine 12/06/15 Jefferson Wang, [facility] [address] [place] [address] Specialty Business Banking Sales Assistant Orthopedics 06/14/24 08/31/24 Quin Costa APRN.MEDICAL ENGINEER [address] [place], [place] 652031 [employer] Worker Family [facility] 06/17/24 Jaylin Combs PA-C [address] [place], [place] 936761 [employer] Worker Family [facility] 06/17/24 Jazzy Pereira, PT [address] [place] [address] Practicing Urologist Post Acute Care 07/27/24 Bryson Dhillon MD [address] [place] [address] Home Care Provider Orthopedics 07/28/24 Gina Samayoa PA-C [address] [place] [address] Referring Orthopedics 07/28/24 Paleologist Relationship Specialty Start Date End Date Scot Blank MD [address] [place] [address] PCP - General Family Medicine 12/06/[address] [facility] [address] [place] [address] Specialty Business Banking Sales Assistant Orthopedics 06/14/24 08/31/24 Quin Costa APRN.MEDICAL ENGINEER [address] [place], [place] 235261 [employer] [facility] 06/17/24 Jaylin Combs PA-C [address] [place] [address] [employer] Worker [facility] 06/17/24 Jazzy Pereira, PT [address] [place] [address] Practicing Urologist Post Acute Care 07/27/24 Bryson Dhillon MD [address] [place] [address] Home Care Provider Orthopedics 07/28/24 Gina Samayoa PA-C [address] [place] [address] Referring Orthopedics 07/28/24 Paleologist Relationship Specialty Start Date End Date Scot Balnk MD [facility] [place], [place] 578261 PCP - General Family Medicine 12/06/[address] [facility] [address] [place] [address] Specialty Business Banking Sales Assistant Orthopedics 06/14/24 08/31/24 Quin Costa APRN.MEDICAL ENGINEER [address] [place] [address] [phone] [employer] Worker Family Medicine 06/17/24 Jaylin Combs PA-C [address] [place] [address] [phone] Structural [employer] Worker Family [facility] 06/17/24 Jazzy Pereira, PT [address] [place] [address] Practicing Urologist Post Acute Care 07/27/24 Bryson Dhillon MD [address] [place] [address] Home Care Provider Orthopedics 07/28/24 Gina Samayoa PA-C [address] [place] [address] Referring Orthopedics 07/28/24 Paleologist Relationship Specialty Start Date End Date Scot Blank MD [address] [place], [place] 072121 PCP - General Family Medicine 12/06/15 Jefferson Wang, [facility] [address] [place] [address] Specialty Business Banking Sales Assistant Orthopedics 06/14/24 08/31/24 Quin Costa APRN.MEDICAL ENGINEER [address] [place] [address] [employer] Work[employer] Family Medicine 06/17/24 Jaylin Combs PA-C [address] [place] [address] [employer] Work[employer] Family Medicine 06/17/24 Bryson Dhillon MD [address] [place] [address] Home Care Provider Orthopedics 07/28/24 Gina Samayoa PA-C [address] [place] [address] 57[address] Referring Orthopedics 07/28/24 Paleologist Relationship Specialty Start Date End Date Scot Blank MD [address] [place] [address] PCP - General Family Medicine 12/06/15 Jefferson Wang, [facility] [address] [place] [address] Specialty Business Banking Sales Assistant Orthopedics 06/14/24 08/31/24 Quin Costa APRN.MEDICAL ENGINEER [address] [place] [address] [employer] Worker Family Medicine 06/17/24 Jaylin Combs PA-C [address] [place] [address] [employer] Worker Family Medicine 06/17/24 Bryson Dhillon MD [address] [place] [address] Home Care Provider Orthopedics 07/28/24 Gina Samayoa PA-C [address] [place] [address] 78671 Referring Orthopedics 07/28/24 Paleologist Relationship Specialty Start Date End Date Scot Blank MD [facility] [place] [address] PCP - General Family Medicine 12/06/[address] [facility] [address] [place] [address] Specialty Business Banking Sales Assistant Orthopedics 06/14/24 08/31/24 Quin Costa APRN.[facility] [address] [place] [address] [employer] Worker Family Medicine 06/17/24 Jaylin Combs PA-C [address] [place] [address] [employer] Worker Family Medicine 06/17/24 Bryson Dhillon MD [address] [place] [address] Home Care Provider Orthopedics 07/28/24 Gina Samayoa PA-C [address] [place] [address] 09471 Referring Orthopedics 07/28/24 Paleologist Relationship Specialty Start Date End Date Scot Blank MD [address] [place] [address] PCP - General Family Medicine 12/06/[address] [facility] [address] [place] [address] Specialty Business Banking Sales Assistant Orthopedics 06/14/24 08/31/24 Quin Costa APRN.MEDICAL ENGINEER [address] [place] [address] [employer] Worker Family Medicine 06/17/24 Jaylin Combs PA-C [address] [place] [address] [employer] Work[employer] Family Medicine 06/17/24 Bryson Dhillon MD [address] [place], [place] 670341 Home Care Provider Orthopedics 07/28/24 Gina Samayoa PA-C [address] [place] [address] Referring Orthopedics 07/28/24 Paleologist Relationship Specialty Start Date End Date Scot Blank MD [facility] [place], [place] 413811 PCP - General Family Medicine 12/06/15 Quin Costa APRN.MEDICAL ENGINEER [address] [place] [address] 796351 [employer] Worker Family Medicine 06/17/24 Jaylin Combs PA-C [address] [place] [address] [employer] Worker Family Medicine 06/17/24 Bryson Dhillon MD [address] [place] [address] Home Care Provider Orthopedics 07/28/24 Gina Samayoa PA-C [address] [place] [address] [phone] Referring Orthopedics 07/28/24 Paleologist Relationship Specialty Start Date End Date Scot Blank MD [facility] [place] [address] PCP - General Family Medicine 12/06/15 Quin Costa APRN.MEDICAL ENGINEER [address] [place] [address] [employer] Worker Family Medicine 06/17/24 Jaylin Combs PA-C [address] [place] [address] 97837 [employer] Worker Family Medicine 06/17/24 Bryson Dhillon MD [address] [place] [address] Home Care Provider Orthopedics 07/28/24 Gina Samayoa PA-C [address] [place] [address] 86[address] Referring Orthopedics 07/28/24 Paleologist Relationship Specialty Start Date End Date Scot Blank MD [address] [place] [address] 31586 PCP - General Family Medicine 12/06/15 Quin Costa APRN.MEDICAL ENGINEER [facility] [place] [address] [employer] Worker Family Medicine 06/17/24 Jaylin Combs PA-C [facility] [place] [address] [employer] Worker Family Medicine 06/17/24 Bryson Dhillon MD [address] [place] [address] Home Care Provider Orthopedics 07/28/24 Gina Samayoa PA-C [address] [place] [address]116 Referring Orthopedics 07/28/24 Paleologist Relationship Specialty Start Date End Date Scot Blank MD [address] [place] [address] PCP - General Family Medicine 12/06/[address] [facility] [address] [place] [address] Specialty Business Banking Sales Assistant Orthopedics 06/14/24 08/31/24 Quin Costa, KJ.MEDICAL ENGINEER [address] [place] [address]57 Structural [employer] Tr[employer] Worker Family [facility] 06/17/24 Jaylin Combs PA-C [address] [place] [address] Structural [employer] Worker Family Medicine 06/17/24 Bryson Dhillon MD [address] [place] [address] Home Care Provider Orthopedics 07/28/24 Gina Samayoa PA-C [address] [place] [address] 90978 Referring Orthopedics 07/28/24 Paleologist Relationship Specialty Start Date End Date Scot Blank MD [address] [place] [address] PCP - General Family Medicine 12/06/15 Quin Costa APRN.MEDICAL ENGINEER [address] [place] [address] Structural [employer] Worker Family Medicine 06/17/24 Jaylin Combs PA-C [address] [place] [address] Structural [employer] Worker Family Medicine 06/17/24 Bryson Dhillon MD [address] [place], [place] 512251 Home Care Provider Orthopedics 07/28/24 Gina Samayoa PA-C [address] [place] [address] [phone] Referring Orthopedics 07/28/24 Paleologist Relationship Specialty Start Date End Date Scot Blank MD [address] [place] [address] PCP - General Family Medicine 12/06/15 Quin Costa, KJ.MEDICAL ENGINEER [address] [place] [address] Structural [employer] Worker Family Medicine 06/17/24 Jaylin Combs PA-C [address] [place] [address] Structural [employer] Worker Family Medicine 06/17/24 Bryson Dhillon MD [address] [place] [address] Home Care Provider Orthopedics 07/28/24 Gina Samayoa PA-C [address] [place] [address] [phone] Referring Orthopedics 07/28/24 Paleologist Relationship Specialty Start Date End Date Scot Blank MD [address] [place] [address]94 PCP - General Family Medicine 12/06/15 Quin Costa APRN.MEDICAL ENGINEER [address] [place] [address] Structural [employer] Worker Family Medicine 06/17/24 Jaylin Combs PA-C [address] [place] [address]73 Structural [employer] Worker Family Medicine 06/17/24 Bryson Dhillon MD [address] [place] [address]12 Home Care Provider Orthopedics 07/28/24 Gina Samayoa PA-C [address] [place] [address] 81123 Referring Orthopedics 07/28/24 Paleologist Relationship Specialty Start Date End Date Scot Blank MD [address] [place] [address] 83939 PCP - General Family Medicine 12/06/15 Quin Costa APRN.MEDICAL ENGINEER [address] [place] [address] 36468 Structural [employer] Worker Family Medicine 06/17/24 Jaylin Combs PA-C [facility] [place] [address] Structural [employer] Tr[employer] Worker Family Medicine 06/17/24 Bryson Dhillon MD [address] [place] [address] Home Care Provider Orthopedics 07/28/24 Gina Samayoa PA-C [address] [place] [address] [phone] Referring Orthopedics 07/28/24 Paleologist Relationship Specialty Start Date End Date Scot Blank MD [address] [place] [address] 70117 PCP - General Family Medicine 12/06/15 Quin Costa, KJ.MEDICAL ENGINEER [address] [place] [address] 17555 Structural [employer] Worker Family Medicine 06/17/24 Jaylin Combs PA-C [address] [place] [address] 49755 Structural [employer] Tr[employer] Worker Family Medicine 06/17/24 Bryson Dhillon MD [address] [place] [address] Home Care Provider Orthopedics 07/28/24 Gina Samayoa PA-C [address] [place] [address] 45705 Referring Orthopedics 07/28/24 Paleologist Relationship Specialty Start Date End Date Scot Blank MD [address] [place] [address] 07522 PCP - General Family Medicine 10/16/24 Quin Costa APRN.MEDICAL ENGINEER [address] [place] [address] 16453 Structural [employer] Worker Family Medicine 06/17/24 Jaylin Combs PA-C [address] [place] [address] 63759 Structural [employer] Worker Family Medicine 06/17/24 Bryson Dhillon MD [address] [place] [address] Home Care Provider Orthopedics 07/28/24 Gina Samayoa PA-C [address] [place] [address] [phone] Referring Orthopedics 07/28/24 Paleologist Relationship Specialty Start Date End Date Scot Blank MD [address] [place] [address] PCP - General Family Medicine 10/16/24 Quin Costa APRN.MEDICAL ENGINEER [address] [place] [address]32 Structural [employer] Tr[employer] Worker Family [facility] 06/17/24 Jaylin Combs PA-C [address] [place] [address] 81107 Structural [employer] Tr[employer] Worker Family Medicine 06/17/24 Bryson Dhillon MD [address] [place] [address] Home Care Provider Orthopedics 07/28/24 Gina Samayoa PA-C [address] [place] [address] [phone] Referring Orthopedics 07/28/24 Paleologist Relationship Specialty Start Date End Date Scot Blank MD [address] [place] [address] PCP - General Family Medicine 10/16/24 Quin Costa APRN.MEDICAL ENGINEER [address] [place] [address] Structural [employer] Worker Family Medicine 06/17/24 Jaylin Combs PA-C [address] [place] [address] Structural [employer] Tr[employer] Worker Family Medicine 06/17/24 Bryson Dhillon MD [address] [place] [address] Home Care Provider Orthopedics 07/28/24 Gina Samayoa PA-C [address] [place] [address] 16584 Referring Orthopedics 07/28/24 Paleologist Relationship Specialty Start Date End Date Scot Blank MD [address] [place] [address] PCP - General Family Medicine 10/16/24 Quin Costa APRN.MEDICAL ENGINEER [address] [place] [address] Structural [employer] Worker Family Medicine 06/17/24 Jaylin Combs PA-C [address] [place] [address] Structural [employer] Worker Family Medicine 06/17/24 Bryson Dhillon MD [address] [place] [address] Home Care Provider Orthopedics 07/28/24 Gina Samayoa PA-C [address] [place] [address] 30575 Referring Orthopedics 07/28/24 Paleologist Relationship Specialty Start Date End Date Scot Blank MD [address] [place] [address] [phone] PCP - General Family Medicine 12/06/15 10/15/24 Scot Blank MD [address] [place] [address] 249161 PCP - General Family Medicine 10/16/24 Quin Costa APRN.[facility] [address] [place] [address] [phone] Structural [employer] Tr[employer] Worker Family Medicine 06/17/24 11/26/24 Jaylin Combs PA-C [address] [place] [address] 189421 Structural [employer] Tr[employer] Worker Family Medicine 06/17/24 Bryson Dhillon MD [address] [place] [address] Home Care Provider Orthopedics 07/28/24 Gina Samayoa PA-C [address] [place] [address] 35595 Referring Orthopedics 07/28/24 Paleologist Relationship Specialty Start Date End Date Scot Blank MD [address] [place] [address] PCP - General Family Medicine 10/16/24 Bryson Dhillon MD [address] [place] [address] Home Care Provider Orthopedics 07/28/24 Gina Samayoa PA-C [address] [place] [address] 83395 Referring Orthopedics 07/28/24 Quin Costa APRN.MEDICAL ENGINEER [address] [place] [address] 41120 Structural [employer] Tr[employer] Worker Family Medicine 12/11/24 Jaylin Combs PA-C [address] [place] [address] 59845 Structural [employer] Trades Worker Family Medicine 12/11/24 Paleologist Relationship Specialty Start Date End Date Scot Balnk MD [address] [place] [address] 53231 PCP - General Family Medicine 10/16/24 Bryson Dhillon MD [address] [place] [address] Home Care Provider Orthopedics 07/28/24 Gina Samayoa PA-C [address] [place] [address] 16479 Referring Orthopedics 07/28/24 Quin Costa APRN.MEDICAL ENGINEER [address] [place] [address] [phone] Structural [employer] Tr[employer] Worker Family Medicine 12/11/24 Jaylin Combs PA-C [address] [place] [address] 15006 Structural [employer] Trades Worker Family Medicine 12/11/24 Paleologist Relationship Specialty Start Date End Date Scot Blank MD [address] [place] [address] PCP - General Family Medicine 10/16/24 Bryson Dhillon MD [address] [place] [address] Home Care Provider Orthopedics 07/28/24 Gina Samayoa PA-C [address] [place] [address] [phone] Referring Orthopedics 07/28/24 Quin Costa APRN.MEDICAL ENGINEER [address] [place] [address] 69221 Structural [employer] Tr[employer] Worker Family Medicine 12/11/24 Jaylin Combs PA-C [address] [place] [address] 99681 Structural [employer] Tr[employer] Worker Family Medicine 12/11/24 Paleologist Relationship Specialty Start Date End Date Scot Blank MD [address] [place] [address] PCP - General Family Medicine 10/16/24 Bryson Dhillon MD [address] [place] [address] Home Care Provider Orthopedics 07/28/24 Gina Samayoa PA-C [address] [place] [address] 72447 Referring Orthopedics 07/28/24 Quin Costa APRN.MEDICAL ENGINEER [address] [place] [address], [place] [address] Structural [employer] Tr[employer] Worker Family Medicine 12/11/24 Jaylin Combs PA-C [address] [place] [address] Structural Steel Trades Worker Family Medicine 12/11/24 Paleologist Relationship Specialty Start Date End Date Scot Blank MD [address] [place] [address] PCP - General Family Medicine 10/16/24 Bryson Dhillon MD [address] [place] [address] Home Care Provider Orthopedics 07/28/24 Gina Samayoa PA-C [address] [place] [address] 29414 Referring Orthopedics 07/28/24 Quin Costa APRN.CNP [address] [place] [address] [phone] Structural [employer] Tr[employer] Worker Family Medicine 12/11/24 Jaylin Combs PA-C [address] [place] [address] Structural Steel Trades Worker Family Medicine 12/11/24 Paleologist Relationship Specialty Start Date End Date Scot Blank MD [address] [place] [address] PCP - General Family Medicine 10/16/24 Bryson Dhillon MD [address] [facility] [place] [address] Home Care Provider Orthopedics 07/28/24 Gina Samayoa PA-C [address] [place] [address] Referring Orthopedics 07/28/24 Quin Costa APRN.CNP [address] [place], [place] [phone] Structural [employer] Trades Worker Family Medicine 12/11/24 Jaylin Combs PA-C [address] [place] [address] Structural Steel Trades Worker [facility] 12/11/24 Team Status: Active Member Role/Relationship Status Dates Dr. Scto Blank MD Primary Care Provider Active Team [...] BE BASED ON THE PRIMARY CLINICAL RECORDS. [facility] [employer] provides no warranty or guarantee of the accuracy or completeness of information in this document.
== END 2025-02-12 15:49 | disposition home or self-care (01) ==
PROVIDERS: Emergency Provider Emergency Medicine; PCP Family Medicine; Visit Provider Emergency Medicine
DX: I82.462 Acute embolism and thrombosis of left calf muscular vein (principal); Z90.710 Acquired absence of both cervix and uterus; Z87.898 Personal history of other specified conditions; E78.00 Pure hypercholesterolemia, unspecified; K21.9 Gastro-esophageal reflux disease without esophagitis; Z79.899 Other long term (current) drug therapy; J45.909 Unspecified asthma, uncomplicated; Z79.51 Long term (current) use of inhaled steroids; Z98.41 Cataract extraction status, right eye; Z98.42 Cataract extraction status, left eye
CPT/HCPCS: 99282

== ENCOUNTER → 2025-02-12 | Outpatient (CLI) | payer MEDICARE, OTHER, SELFPAY ==
--- NOTE | 2025-02-12 12:52 | VDLE_ITS ---
Reason For Study Reason For Study: Swelling BLE RIGHT LEFT GSV is normal. GSV is normal. CFV is compressible, spontaneous, phasic, competent CFV is compressible, spontaneous, phasic, competent, and demonstrates normal augmentation. and demonstrates normal augmentation. FV is compressible, spontaneous, phasic, competent FV is compressible, spontaneous, phasic, competent and demonstrates normal augmentation. and demonstrates normal augmentation. POP V is compressible, spontaneous, phasic, competent POP V is compressible, spontaneous, phasic, competent and demonstrates normal augmentation. and demonstrates normal augmentation. T/P Trunk is compressible. T/P Trunk is compressible. PTV is compressible. PTV is compressible. RT PerV is compressible. LT PerV is compressible. Procedure Lt SoleusV is DILATED and NON COMPRESSIBLE consistent This is a venous duplex using B-mode, color flow and with acute DVT spectral Doppler. Hypoechoic, non vascular structure noted Lt Pop Fossa Exam performed in department. measuring 1.35cm x 0.46cm. A preliminary report was called and/or faxed to Dr. Nunn, Dr. Bird. VL/Venous Duplex US - Tima Extrem Interpretation Summary Acute deep vein thrombosis is noted in the left soleus vein. Deep veins of the right lower extremity are patent and compressible segmentally . There is no evidence of right lower extremity deep vein thrombosis. The bilateral great saphenous veins appear neff nt and compressible segmentally. Hypoechoic, non vascular structure noted left popliteal fossa measuring 1.35cm x 0.46cm. Ordering Physician: Nadir Nunn Referring Physician: Scot Bird Performed By: Mora Hamilton RDCS, RVT
== END | disposition home or self-care (01) ==
LOC: CVS 12:50
PROVIDERS: PCP Family Medicine; Referring Provider Student in an Organized Health Care Education/Training Program; Visit Provider Student in an Organized Health Care Education/Training Program
DX: R60.0 Localized edema (principal); M79.662 Pain in left lower leg; I87.2 Venous insufficiency (chronic) (peripheral)
CPT/HCPCS: 93970

== ENCOUNTER → 2025-02-15 | Outpatient (CLI) | payer MEDICARE, OTHER, SELFPAY ==
--- NOTE | 2025-02-15 13:41 | VDLE_ITS ---
Reason For Study Reason For Study: LT SOLEUS VEIN DVT 02/12/25 RIGHT LEFT CFV is compressible, spontaneous, phasic, competent GSV is normal. and demonstrates normal augmentation. CFV is compressible, spontaneous, phasic, competent, Procedure and demonstrates normal augmentation. This is a venous duplex using B-mode, color flow and FV is compressible, spontaneous, phasic, competent spectral Doppler. and demonstrates normal augmentation. Exam performed in department. POP V is compressible, spontaneous, phasic, competent A preliminary report was called and/or faxed to and demonstrates normal augmentation. [facility] @ [phone]. T/P Trunk is compressible. PTV is compressible. LT PerV is compressible. LT SOLEUS V is DILATED AND NON-COMPRESSIBLE. VL/Venous Duplex US, Unilateral Interpretation Summary Acute deep vein thrombosis is noted in the left soleus vein. Negative for propagation. Ordering Physician: Fidel Marte Referring Physician: Scot Bird Performed By: Beryl Aden, NORY, RVT
== END | disposition home or self-care (01) ==
LOC: CVS 13:41
PROVIDERS: PCP Family Medicine; Referring Provider Emergency Medicine; Visit Provider Emergency Medicine
DX: I82.462 Acute embolism and thrombosis of left calf muscular vein (principal)
CPT/HCPCS: 93971

== ENCOUNTER → 2025-02-19 | Outpatient (CLI) | payer MEDICARE, OTHER, SELFPAY ==
--- NOTE | 2025-02-19 13:39 | VDLE_ITS ---
Reason For Study RIGHT LEFT CFV is compressible, spontaneous, phasic, competent GSV is normal. and demonstrates normal augmentation. CFV is compressible, spontaneous, phasic, competent, Procedure and demonstrates normal augmentation. This is a venous duplex using B-mode, color flow and FV is compressible, spontaneous, phasic, competent spectral Doppler. and demonstrates normal augmentation. Exam performed in department. POP V is compressible, spontaneous, phasic, competent Compared to 02/15/2025. and demonstrates normal augmentation. T/P Trunk is compressible. PTV is compressible. LT PerV is compressible. Lt SoleusV is DILATED and NON COMPRESSIBLE consistent with acute DVT. VL/Venous Duplex US, Unilateral Interpretation Summary Acute deep vein thrombosis is noted in the left soleus vein. Negative for propagation. Ordering Physician: Fidel Marte Referring Physician: Nadir Nunn Performed By: Key Price RVT
== END | disposition home or self-care (01) ==
LOC: CVS 13:38
PROVIDERS: PCP Family Medicine; Referring Provider Student in an Organized Health Care Education/Training Program; Visit Provider Emergency Medicine
DX: I82.462 Acute embolism and thrombosis of left calf muscular vein (principal)
CPT/HCPCS: 93971

== ENCOUNTER → 2025-02-26 | Outpatient (CLI) | payer MEDICARE, OTHER, SELFPAY ==
--- NOTE | 2025-02-26 13:36 | VDLE_ITS ---
Reason For Study Reason For Study: HX LLE DVT RIGHT LEFT CFV is compressible, spontaneous, phasic, competent GSV is normal. and demonstrates normal augmentation. CFV is compressible, spontaneous, phasic, competent, Procedure and demonstrates normal augmentation. This is a venous duplex using B-mode, color flow and FV is compressible, spontaneous, phasic, competent and spectral Doppler. demonstrates normal augmentation. Exam performed in department. POP V is compressible, spontaneous, phasic, competent The exam was diagnostic. and demonstrates normal augmentation. T/P Trunk is compressible. PTV is compressible. LT PerV is compressible. Acute deep vein thrombosis is noted in the Soleus Vein. It is dilated and NONCOMPRESSIBLE. VL/Venous Duplex US, Unilateral Interpretation Summary Acute deep vein thrombosis is noted in the left soleus vein. The remainder of t he left lower extremity deep venous system is patent and compressible. Valvular competence appears intact within th e proximal deep venous system on the left . The left great saphenous vein appears patent and compressible segmentall y. The right common femoral vein is patent and compressible . Ordering Physician: Fidel Marte Referring Physician: Estuardo Bird Performed By: Gil Spence, RVT
== END | disposition home or self-care (01) ==
LOC: CVS 13:33
PROVIDERS: PCP Family Medicine; Referring Provider Student in an Organized Health Care Education/Training Program; Visit Provider Emergency Medicine
DX: I82.462 Acute embolism and thrombosis of left calf muscular vein (principal)
CPT/HCPCS: 93971

== ENCOUNTER → 2025-03-13 | Outpatient (CLI) | payer MEDICARE, OTHER, SELFPAY ==
--- NOTE | 2025-03-13 09:35 | VDLE_ITS ---
Reason For Study Reason For Study: Left leg pain RIGHT LEFT CFV is compressible, spontaneous, phasic, competent GSV is normal. and demonstrates normal augmentation. CFV is compressible, spontaneous, phasic, competent, Procedure and demonstrates normal augmentation. This is a venous duplex using B-mode, color flow and FV is compressible, spontaneous, phasic, competent and spectral Doppler. demonstrates normal augmentation. Exam performed in department. POP V is compressible, spontaneous, phasic, competent and demonstrates normal augmentation. T/P Trunk is compressible. PTV is compressible. LT PerV is compressible. Acute deep vein thrombosis is noted in the Soleus Vein. It is dilated and NONCOMPRESSIBLE. VL/Venous Duplex US, Unilateral Interpretation Summary Acute deep vein thrombosis is noted in the left soleus vein. Ordering Physician: Jaylin Combs Referring Physician: Scot Bird Performed By: Key Price RVT
== END | disposition home or self-care (01) ==
LOC: CVS 09:34
PROVIDERS: PCP Family Medicine; Referring Provider Physician Assistant; Visit Provider Physician Assistant
DX: I82.4Z2 Acute embolism and thrombosis of unspecified deep veins of left distal lower extremity (principal)
CPT/HCPCS: 93971